=== PATIENT | female | born 1945 | race Caucasian/White ===

== ENCOUNTER 2016-06-29 20:49 | Emergency (ER) | payer MEDICARE ==
[2016-06-29 21:05] VITALS: PULSE 75
[2016-06-29] MEDS ORDERED: KETOROLAC 60 MG/2 ML VIAL IM STA (21:43)
[2016-06-29] MEDS ORDERED: ORPHENADRINE 30 MG/ML 2 ML VIAL IM STA (21:43)
--- NOTE | 2016-06-29 21:48 | ED ---
General Adult HPI - General Chief complaint: Back Pain/Injury Stated complaint: back pain Time Seen by Provider: 06/29/16 21:16 Source: patient, RN notes reviewed Mode of arrival: ambulatory Limitations: no limitations - History of Present Illness Initial comments: Patient is a 7-year-old female chief complaint of acute onset of lower back pain. Patient reports that she has a history of this similar back pain for the past few months. She states that she has been able to ambulate denies any dysuria or loss of bowel or bladder control. She states that she has been having multiple x-rays. She denies any MRIs or other imaging studies of the lumbar spine. She states that she has not seen a civil design specialist. She denies any fever or chills, nausea or vomiting. She denies any abdominal pain. She states the pain is worse with position. She states that better when standing. - Related Data Home Medications Medication Instructions Recorded Confirmed Acetaminophen [Tylenol Arthritis] 650 mg PO Q6H PRN 03/14/16 03/14/16 Previous Rx's Medication Instructions Recorded Hydrocodone/Acetaminophen [[place] 1 each PO Q6HR PRN #20 tab 03/14/16 5-325] Cyclobenzaprine [Flexeril] 10 mg PO TID #20 tab 06/29/16 HYDROcodone/APAP 5-325MG [[place] 1 tab PO Q6HR PRN #15 tab 06/29/16 5-325] Allergies Allergy/AdvReac Type Severity Reaction Status Date / Time No Known Allergies Allergy Verified 06/29/16 21:05 Review of Systems ROS Statement: Those systems with pertinent positive or pertinent negative responses have been documented in the HPI. ROS Other: All systems not noted in ROS Statement are negative. Past Medical History Past Medical History: Cancer, GERD/Reflux, Hypertension Additional Past Medical History / Comment(s): stomach ulcer, back pain, cancer of larynx History of Any Multi-Drug Resistant Organisms: None Reported Past Surgical History: Bariatric Surgery, Hysterectomy, Joint Replacement, Orthopedic Surgery Additional Past Surgical History / Comment(s): bilat. knee replacement, left shoulder surgery Past Anesthesia/Blood Transfusion Reactions: No Reported Reaction Past Psychological History: Anxiety Smoking Status: Former smoker Past Alcohol Use History: None Reported Past Drug Use History: None Reported - Past Family History Mother Family Medical History: Congestive Heart Failure (CHF), Diabetes Mellitus, Hypertension General Exam Limitations: no limitations Course Vital Signs 06/29/16 06/29/16 21:03 22:44 Temperature 97.9 F 97.8 F Pulse Rate 75 75 Respiratory 18 20 Rate Blood Pressure 167/96 137/74 O2 Sat by Pulse 98 96 Oximetry Medical Decision Making - Medical Decision Making Patient is a 7-year-old female chief complaint of acute onset of lower back pain. Patient reports that she has a history of this similar back pain for the past few months. She states that she has been able to ambulate denies any dysuria or loss of bowel or bladder control. She states that she has been having multiple x-rays. She denies any MRIs or other imaging studies of the lumbar spine. CT lumbar spine was performed in results are showing below. Patient is given IM Norflex and Toradol. She does report significant improvement of her pain. Patient will be discharged with Flexeril and pain medication. I advised her to follow-up with her primary care provider. Also discussed that she is to follow-up with a civil design specialist. Patient presented treatment plan will comply. Return parameters were discussed. - Radiology Data Radiology results: report reviewed There is area of the L2 3 disc space. 7 mm retrolisthesis of L2/3. 1 cm anterolisthesis of L4 in relation L5. No compression fracture. The posterior elements are intact. Abdominal aorta is erythematous. Multilevel hypertrophic facet arthropathy. There is sclerosis in both sides of L2/3 days. Vacuum disc at L2/3. No paraspinal mass. The sacroiliac joints appear normal. There is mild posterior to 3 disc herniations. There is moderate spinal stenosis due to subluxation and facet arthropathy L4/5. Impression a spinal changes as above. Retrolisthesis of L2/L3 and prescribed spinal listhesis at L4-L5. No fracture. Bladder is sclerosis at L2-L3. Moderately severe spinal stenosis at L4/5. Mild spinal stenosis L2/3. Subluxation deformities that are not significantly different than old CT of 12/16. Disposition Clinical Impression: Acute exacerbation of chronic low back pain Disposition: HOME SELF-CARE Condition: Good Instructions: Acute Low Back Pain (ED) Additional Instructions: Patient advised to apply heat over the lower back. Take the muscle relaxers and pain medication as prescribed. Follow-up with primary care provider. Return to the emergency department if any alarming signs or symptoms occur. Prescriptions: Cyclobenzaprine [Flexeril] 10 mg PO TID #20 tab HYDROcodone/APAP 5-325MG [[place] 5-325] 1 tab PO Q6HR PRN #15 tab PRN Reason: Pain Referrals: Xin Hernández MD [Primary Care Provider] - 1-2 days Time of Disposition: 22:34
--- NOTE | 2016-06-29 22:21 | CT ---
EXAMINATION TYPE: CT lumbar spine wo con DATE OF EXAM: 06/29/2016 10:08 PM COMPARISON: NONE HISTORY: Chronic low back pain. CT DLP: 946.00 mGycm Automated exposure control for dose reduction was used. Unenhanced CT of the lumbar spine was performed. Bone and soft tissue window settings are submitted as well as coronal and sagittal reconstructions. There is severe narrowing of the L2-3 disc space. There is a 7 mm retrolisthesis at L2-3. There is a 1 cm anterior listhesis of L4 in relation L5. There is no compression fracture. The posterior element s are intact. The abdominal aorta is atheromatous. There is mild multilevel hypertrophic facet arthro sylvia. There is sclerosis on both sides of the L2-3 disc. There is vacuum disc at L2-3. There is no p araspinal mass. The sacroiliac joints appear normal. There is a mild posterior to 3 disc herniation. There is moderate spinal stenosis due to the subluxation and facet arthropathy at L4-5. IMPRESSION: Spondylotic changes as above. There is a retrolisthesis at L2-3 and first-degree spondylolisthesis at L4-5. No fracture. There is moderate sclerosis at L2-3 that could relate to chronic discitis. There is moderately severe spinal stenosis at L4-5. There is a mild spinal stenosis at L2-3. The subl uxation deformities are not significantly different than the old CT scan of 12/17/2015.
[2016-06-29 22:45] VITALS: BP 137/74; RESP 20; TEMP 97.8
== END 2016-06-29 22:45 | disposition home or self-care (01) ==
LOC: EC 20:49
DX: M54.5 Low back pain (principal); G89.29 Other chronic pain; Z87.891 Personal history of nicotine dependence
CPT/HCPCS: 96372; 99283; 72131; J2360; J1885

== ENCOUNTER 2016-08-17 11:39 | Emergency (ER) | payer MEDICARE ==
[2016-08-17 12:15] VITALS: BP 179/92; PULSE 76; RESP 16; TEMP 98.1
[2016-08-17] MEDS ORDERED: HYDROcodone/APAP 5-325MG 1 EACH TAB PO STA (12:21)
--- NOTE | 2016-08-17 12:23 | ED ---
Back Pain HPI - General Chief Complaint: Back Pain/Injury Stated Complaint: LOWER BACK PAIN Time Seen by Provider: 08/17/16 12:19 Source: patient, RN notes reviewed Limitations: no limitations - History of Present Illness Initial Comments: 70-year-old female presents emergency department for chronic back pain. Patient states she ran out of her pain medication this morning. Patient takes [place] 5/325 daily. She states she has a prescription but states that she cannot fill it until Saturday because that's what it is due. Patient denies any change of her back pain or any new injuries. She denies any bowel bladder incontinence or retention. Denies any abdominal pain, saddle anesthesias or lower stomach paresthesias. She says chronic lumbar pain occasionally radiates to her left leg to the thigh. She denies any dysuria or hematuria. Patient offers no other complaints. - Related Data Home Medications Medication Instructions Recorded Confirmed Acetaminophen [Tylenol Arthritis] 650 mg PO Q6H PRN 03/14/16 08/17/16 Previous Rx's Medication Instructions Recorded Hydrocodone/Acetaminophen [[place] 1 each PO Q6HR PRN #20 tab 03/14/16 5-325] Cyclobenzaprine [Flexeril] 10 mg PO TID #20 tab 06/29/16 HYDROcodone/APAP 5-325MG [[place] 1 tab PO Q6HR PRN #15 tab 06/29/16 5-325] Allergies Allergy/AdvReac Type Severity Reaction Status Date / Time No Known Allergies Allergy Verified 08/17/16 12:15 Review of Systems ROS Statement: Those systems with pertinent positive or pertinent negative responses have been documented in the HPI. ROS Other: All systems not noted in ROS Statement are negative. Past Medical History Past Medical History: Cancer, GERD/Reflux, Hypertension Additional Past Medical History / Comment(s): stomach ulcer, back pain, cancer of larynx History of Any Multi-Drug Resistant Organisms: None Reported Past Surgical History: Bariatric Surgery, Hysterectomy, Joint Replacement, Orthopedic Surgery Additional Past Surgical History / Comment(s): bilat. knee replacement, left shoulder surgery Past Anesthesia/Blood Transfusion Reactions: No Reported Reaction Past Psychological History: Anxiety Smoking Status: Former smoker Past Alcohol Use History: None Reported Past Drug Use History: None Reported - Past Family History Mother Family Medical History: Congestive Heart Failure (CHF), Diabetes Mellitus, Hypertension General Exam Limitations: no limitations General appearance: alert, in no apparent distress Head exam: Present: atraumatic, normocephalic, normal inspection Respiratory exam: Present: normal lung sounds bilaterally. Absent: respiratory distress, wheezes, rales, rhonchi, stridor Cardiovascular Exam: Present: regular rate, normal rhythm, normal heart sounds. Absent: systolic murmur, diastolic murmur, rubs, gallop, clicks GI/Abdominal exam: Present: soft, normal bowel sounds. Absent: distended, tenderness, guarding, rebound, rigid Extremities exam: Present: normal inspection, full ROM, normal capillary refill. Absent: tenderness, pedal edema, joint swelling, calf tenderness Back exam: Present: full ROM, tenderness (Mild tenderness of the lumbar), paraspinal tenderness. Absent: vertebral tenderness Neurological exam: Present: alert, oriented X3, CN II-XII intact, reflexes normal. Absent: motor sensory deficit Course Vital Signs 08/17/16 12:09 Temperature 98.1 F Pulse Rate 76 Respiratory 16 Rate Blood Pressure 179/92 Medical Decision Making - Medical Decision Making 70-year-old female presented for chronic back pain ran out of pain medication. Patient be given pain medication emergency department. She'll he has a prescription edition her pain meds. Patient agrees to plan to receive pain medications here and to follow-up. Prescription on Saturday. Return parameters were discussed. Patient has no red flag symptoms no neurological changes. Disposition Clinical Impression: Chronic back pain Disposition: HOME SELF-CARE Condition: Stable Instructions: Chronic Back Pain (ED) Additional Instructions: Please return to the Emergency Department if symptoms worsen or any other concerns. Referrals: Xin Hernández MD [Primary Care Provider] - 1-2 days Time of Disposition: 12:22
== END 2016-08-17 12:35 | disposition home or self-care (01) ==
LOC: EC 11:39
DX: G89.29 Other chronic pain (principal); M54.5 Low back pain; M79.605 Pain in left leg; M25.552 Pain in left hip; Z87.891 Personal history of nicotine dependence
CPT/HCPCS: 99283

== ENCOUNTER 2016-09-11 22:09 | Emergency (ER) | payer MEDICARE ==
[2016-09-11] MEDS ORDERED: HYDROmorphone 1 MG/ML 1 ML SYRINGE IVP STA (22:39)
[2016-09-11] MEDS ORDERED: SODIUM CHLORIDE 0.9% 1,000 ML IV STA (22:39)
[2016-09-11] MEDS ORDERED: KETOROLAC 30 MG/ML 1 ML VIAL IVP STA (22:39)
[2016-09-11] MEDS ORDERED: METHOCARBAMOL 750 MG TAB PO STA (22:39)
[2016-09-11] MEDS ORDERED: methylPREDNISolone SOD SUCCI 125 MG/2 ML VIAL IM STA (22:39)
[2016-09-11] MEDS ORDERED: methylPREDNISolone SOD SUCCI 125 MG/2 ML VIAL IV STA (23:11)
--- NOTE | 2016-09-11 23:15 | ED ---
Back Pain HPI - General Chief Complaint: Back Pain/Injury Stated Complaint: Back pain Time Seen by Provider: 09/11/16 22:31 Source: patient Limitations: no limitations - History of Present Illness Initial Comments: She has a history of back pain, it got aggravated around 4 PM today with back pain travels down the left leg into the proximal left thigh, there is no weakness of the ureter legs and there is no bowel or bladder dysfunction either. She has a hypertension she has been compliant with her medication for blood pressure today is quite high and was 96 systolic. She denies any headaches no neck stiffness no chest pain no shortness of breath no abdominal pain no frequency urgency dysuria complaining about some numbness in the index fingers bilaterally as well as soft from bilaterally this is ongoing for about a 4 days she feels that the hand strength is is not as good as it was before. She denies any history of cervical spine stenosis or neck injury - Related Data Home Medications Medication Instructions Recorded Confirmed Acetaminophen [Tylenol Arthritis] 650 mg PO Q6H PRN 03/14/16 09/11/16 Gabapentin [Neurontin] 100 mg PO Q4-6H PRN 09/11/16 09/11/16 Levothyroxine Sodium 100 mcg PO DAILY 09/11/16 09/11/16 Lisinopril [Zestril] 10 mg PO DAILY 09/11/16 09/11/16 Naproxen [Naproxen] 500 mg PO DAILY 09/11/16 09/11/16 Omeprazole [Omeprazole] 20 mg PO DAILY 09/11/16 09/11/16 Previous Rx's Medication Instructions Recorded Cyclobenzaprine [Flexeril] 10 mg PO TID #20 tab 06/29/16 HYDROcodone/APAP 5-325MG [[place] 1 tab PO Q6HR PRN #15 tab 06/29/16 5-325] Cyclobenzaprine [Flexeril] 10 mg PO TID #30 tab 09/12/16 HYDROmorphone [Dilaudid] 1 mg PO Q4HR PRN #20 tab 09/12/16 Allergies Allergy/AdvReac Type Severity Reaction Status Date / Time No Known Allergies Allergy Verified 09/11/16 22:43 Review of Systems ROS Statement: Those systems with pertinent positive or pertinent negative responses have been documented in the HPI. ROS Other: All systems not noted in ROS Statement are negative. Past Medical History Past Medical History: Cancer, GERD/Reflux, Hypertension Additional Past Medical History / Comment(s): stomach ulcer, back pain, cancer of larynx, degenerative disk disease History of Any Multi-Drug Resistant Organisms: None Reported Past Surgical History: Bariatric Surgery, Hysterectomy, Joint Replacement, Orthopedic Surgery Additional Past Surgical History / Comment(s): bilat. knee replacement, left shoulder surgery Past Anesthesia/Blood Transfusion Reactions: No Reported Reaction Past Psychological History: Anxiety Smoking Status: Former smoker Past Alcohol Use History: None Reported Past Drug Use History: None Reported - Past Family History Mother Family Medical History: Congestive Heart Failure (CHF), Diabetes Mellitus, Hypertension General Exam - General Exam Comments Initial Comments: General: The patient is awake and alert, in no distress because of the back pain, not able to lie straight supine in the bed, pain is 9/10 at this point Skin: Skin is warm and dry and no rashes or lesions are noted. Eye: Pupils are equal, round and reactive to light, extra-ocular movements are intact; there is normal conjunctiva bilaterally. Ears, nose, mouth and throat: There are moist mucous membranes and no oral lesions. Neck: The neck is supple, there is no tenderness or JVD. Cardiovascular: There is a regular rate and rhythm. No murmur, rub or gallop is appreciated. Respiratory: To auscultation bilateral, no wheezing no rhonchi no distress respiratory mohamud noticed Gastrointestinal: Soft, non-distended, non-tender abdomen without masses or organomegaly noted. There is no rebound or guarding present. Bowel sounds are unremarkable. Back: There is tenderness over the L4 and L5 region, she is not willing to do any straight leg raise at this point in deep tendon reflexes are within normal range Musculoskeletal: Normal ROM, no tenderness, There is no pedal edema. There is no calf tenderness or swelling. No cords were appreciated. Neurological: CN II-XII intact, Cranial nerves III through XII are intact. There are no obvious motor or sensory deficits. Coordination appears grossly intact. Speech is normal. Psychiatric: Cooperative, appropriate mood & affect, normal judgment. Limitations: no limitations Course Vital Signs 09/11/16 09/11/16 09/12/16 22:13 23:16 00:14 Temperature 96.6 F L Pulse Rate 83 82 69 Respiratory 18 18 16 Rate Blood Pressure 196/91 157/78 144/75 O2 Sat by Pulse 99 99 97 Oximetry 09/12/16 00:55 Temperature 97.3 F L Pulse Rate 62 Respiratory 18 Rate Blood Pressure 147/78 O2 Sat by Pulse 95 Oximetry She is reassessed at 12:30 AM, she is feeling a lot better pain is resolved 90% and she is willing to go home at this point I did discuss her CT of the lumbar spine which didn't show any new finding as well as CT of the brain that was normal CBC, CMP, urinalysis all those were normal there was better for metabolic acidosis she got fluid since she got here and her her hypertension or high blood pressure has responded very nicely to the pain medications as well, we can see if she could ambulate independently once she does that there will cannot sent home on some pain meds Medical Decision Making - Lab Data Result diagrams: 09/11/16 23:08 09/11/16 23:08 Lab Results 09/11/16 09/11/16 09/11/16 Range/Units 23:08 23:08 23:08 WBC 6.5 (3.8-10.6) k/uL RBC 3.49 L (3.80-5.40) m/uL Hgb 10.1 L (11.4-16.0) gm/dL Hct 29.7 L (34.0-46.0) % MCV 85.1 (80.0-100.0) fL MCH 28.8 (25.0-35.0) pg MCHC 33.9 (31.0-37.0) g/dL RDW 15.9 H (11.5-15.5) % Plt Count 273 (150-450) k/uL Neutrophils % 37 % Lymphocytes % 49 % Monocytes % 6 % Eosinophils % 3 % Basophils % 1 % Neutrophils # 2.4 (1.3-7.7) k/uL Lymphocytes # 3.2 (1.0-4.8) k/uL Monocytes # 0.4 (0-1.0) k/uL Eosinophils # 0.2 (0-0.7) k/uL Basophils # 0.1 (0-0.2) k/uL Hypochromasia Slight Sodium 136 L (137-145) mmol/L Potassium 3.4 L (3.5-5.1) mmol/L Chloride 104 (98-107) mmol/L Carbon Dioxide 20 L (22-30) mmol/L Anion Gap 12 mmol/L BUN 13 (7-17) mg/dL Creatinine 1.00 (0.52-1.04) mg/dL Est GFR (MDRD) Af Amer >60 (>60 ml/min/1.73 sqM) Est GFR (MDRD) Non-Af 55 (>60 ml/min/1.73 sqM) Glucose 88 (74-99) mg/dL Calcium 9.2 (8.4-10.2) mg/dL Total Bilirubin 0.4 (0.2-1.3) mg/dL AST 26 (14-36) U/L ALT 21 (9-52) U/L Alkaline Phosphatase 64 (38-126) U/L Total Protein 7.2 (6.3-8.2) g/dL Albumin 4.3 (3.5-5.0) g/dL Urine Color Colorless Urine Appearance Clear (Clear) Urine pH 7.0 (5.0-8.0) Ur Specific [place] 1.005 (1.001-1.035) Urine Protein Negative (Negative) Urine Glucose (UA) Negative (Negative) Urine Ketones Negative (Negative) Urine Blood Negative (Negative) Urine Nitrite Negative (Negative) Urine Bilirubin Negative (Negative) Urine Urobilinogen <2.0 (<2.0) mg/dL Ur Leukocyte Esterase Trace H (Negative) Urine RBC 2 (0-5) /hpf Urine WBC 2 (0-5) /hpf Ur Squamous Epith Cells <1 (0-4) /hpf Urine Bacteria Rare H (None) /hpf Disposition Clinical Impression: Back pain, Hypertension Disposition: HOME SELF-CARE Condition: Good Instructions: Acute Low Back Pain (ED) Prescriptions: Cyclobenzaprine [Flexeril] 10 mg PO TID #30 tab HYDROmorphone [Dilaudid] 1 mg PO Q4HR PRN #20 tab PRN Reason: Pain Referrals: Xin Hernández MD [Primary Care Provider] - 1-2 days
[2016-09-11 23:32] LABS: ALT 21 U/L (9-52); AST 26 U/L (14-36); Alkaline Phosphatase 64 U/L (38-126); Anion Gap 12 mmol/L; Blood Urea Nitrogen 13 mg/dL (7-17); Calcium 9.2 mg/dL (8.4-10.2); Carbon Dioxide 20 mmol/L (22-30); Chloride 104 mmol/L (98-107); Glucose 88 mg/dL (74-99); Non-African American GFR(MDRD) 55 (>60 ml/min/1.73 sqM); Potassium 3.4 mmol/L (3.5-5.1); Sodium 136 mmol/L (137-145); Total Bilirubin 0.4 mg/dL (0.2-1.3); Total Protein 7.2 g/dL (6.3-8.2)
[2016-09-11 23:49] LABS: Appearance,Urine Clear (Clear); Bacteria,Urine Rare /hpf; Bilirubin,Urine Negative (Negative); Glucose,Urine (UA) Negative (Negative); Ketones,Urine Negative (Negative); Leukocyte Esterase,Urine Trace (Negative); Nitrite,Urine Negative (Negative); Particle Count 1158; Protein,Urine Negative (Negative); RBC,Urine 2 /hpf (0-5); Specific Gravity,Urine 1.005 (1.001-1.035); Squamous Epithelial Cell,Urine <1 /hpf (0-4); UA Billing (MACRO vs. MICRO) MICRO; Urobilinogen,Urine <2.0 mg/dL (<2.0); WBC,Urine 2 /hpf (0-5)
[2016-09-11] MEDS ORDERED: HYDROmorphone 1 MG/ML 1 ML SYRINGE IVP PRN (23:50)
[2016-09-12 00:08] LABS: Basophils # (A) 0.1 k/uL (0-0.2); Basophils % (A) 1 %; CH 27.1; Eosinophils # (A) 0.2 k/uL (0-0.7); Eosinophils % (A) 3 %; HCT 29.7 % (34.0-46.0); HDW 3.23; HGB 10.1 gm/dL (11.4-16.0); Hypochromasia Slight; Luc # (Auto) 0.27; Luc % (Auto) 4; Lymphocytes # (A) 3.2 k/uL (1.0-4.8); Lymphocytes % (A) 49 %; MCH 28.8 pg (25.0-35.0); MCHC 33.9 g/dL (31.0-37.0); MCV 85.1 fL (80.0-100.0); Mean Platelet Volume 7.1; Monocytes # (A) 0.4 k/uL (0-1.0); Monocytes % (A) 6 %; Neutrophils # (A) 2.4 k/uL (1.3-7.7); Neutrophils % (A) 37 %; RBC 3.49 m/uL (3.80-5.40); RDW 15.9 % (11.5-15.5); WBC 6.5 k/uL (3.8-10.6); WBC (Perox) 7.02
--- NOTE | 2016-09-12 00:16 | CT ---
EXAM: CT Head Without Intravenous Contrast CLINICAL HISTORY: Reason: Pain TECHNIQUE: Axial computed tomography images of the head/brain without intravenous contrast. CTDI is 60.3 mGy and DLP is 1116.4 mGy-cm. This CT exam was performed using one or more of the following dose reduction techniques: automated exposure control, adjustment of the mA and/or kV according to patient size, and/or use of iterative reconstruction technique. COMPARISON: No relevant prior studies available. FINDINGS: Brain: Involutional changes and probable small vessel disease. No hemorrhage. No acute cortical infarct. No mass effect or midline shift. Ventricles: Unremarkable. Bones/joints: No acute fracture. Soft tissues: Unremarkable. Sinuses: Mild sinus disease. Mastoid air cells: Small mastoid fluid. IMPRESSION: No acute intracranial process.
--- NOTE | 2016-09-12 00:24 | CT ---
EXAM: CT Lumbar Spine Without Intravenous Contrast CLINICAL HISTORY: Reason: Pain TECHNIQUE: Axial computed tomography images of the lumbar spine without intravenous contrast. CTDI is 49.4 mGy and DLP is 1435.3 mGy-cm. This CT exam was performed using one or more of the following dose reduction techniques: automated exposure control, adjustment of the mA and/or kV according to patient size, and/or use of iterative reconstruction technique. COMPARISON: CT abdomen and pelvis 12/17/15. FINDINGS: Vertebrae: No acute fracture or subluxation. Multilevel degenerative changes, relatively similar to prior study, with varying degrees of central canal and neural foraminal stenosis, most prominent at L4-5. There is loss of intervertebral disc space height at L2-3 and L4-5. Grade 1 retrolisthesis at L1-2, L2-3, and L3-4 with grade 1 anterolisthesis at L4-5. Multilevel lumbar facet arthropathy. Discs/spinal canal/neural foramina: See above. Soft tissues: Unremarkable. IMPRESSION: 1. No acute fracture or subluxation. 2. Multilevel degenerative changes as above with central canal narrowing most prominent at L4-5.
[2016-09-12 00:56] VITALS: BP 147/78; PULSE 62; RESP 18; TEMP 97.3
[2016-09-12] MEDS ORDERED: ONDANSETRON 4 MG ODT STARTER PACK 2 TAB BTL PO STA (01:16)
[2016-09-12] MEDS ORDERED: HYDROcodone/APAP 5-325MG 1 EACH TAB PO STA (01:24)
== END 2016-09-12 01:58 | disposition home or self-care (01) ==
LOC: EC 22:09
DX: M54.9 Dorsalgia, unspecified (principal); I10 Essential (primary) hypertension; K21.9 Gastro-esophageal reflux disease without esophagitis; F41.9 Anxiety disorder, unspecified; Z85.21 Personal history of malignant neoplasm of larynx; Z87.891 Personal history of nicotine dependence; Z79.1 Long term (current) use of non-steroidal anti-inflammatories (NSAID); Z79.899 Other long term (current) drug therapy; Z90.710 Acquired absence of both cervix and uterus; Z98.890 Other specified postprocedural states
CPT/HCPCS: 99284; 96374; 96375 ×2; 96376; 96361 ×2; 36415; 80053; 85025; 81001; 72131; 70450; J2930; J1885; J1170 ×2; S0119

== ENCOUNTER 2016-10-03 10:15 | Inpatient (IN) | payer MEDICARE ==
[2016-10-03] MEDS ORDERED: METOCLOPRAMIDE 5 MG/ML 2 ML VIAL IVP STA (10:37)
[2016-10-03] MEDS ORDERED: PANTOPRAZOLE 40 MG/10 ML VIAL IVP STA (10:37)
[2016-10-03] MEDS ORDERED: SODIUM CHLORIDE 0.9% 500 ML IV STA (10:37)
--- NOTE | 2016-10-03 10:43 | ED ---
General Adult HPI - General Chief complaint: Abdominal Pain Stated complaint: KIDNEY PROBLEM Time Seen by Provider: 10/03/16 10:24 Source: patient, RN notes reviewed, old records reviewed Mode of arrival: wheelchair Limitations: no limitations - History of Present Illness Initial comments: Chief complaint and history of present illness is a 70-year-old female with a complaint of not feeling well. After breakfast when she vomited twice. Patient presents looking pale. Generally complaining of not feeling well. Mild epigastric pain chronic low back pain no worse than normal. She reports she is taking Percocet and she only took 2 tablets yesterday. This been Prescription so she had been on pain medications previously. Chest pain or headache. - Related Data Home Medications Medication Instructions Recorded Confirmed Gabapentin [Neurontin] 300 mg PO BID 09/11/16 10/03/16 Levothyroxine Sodium 100 mcg PO DAILY 09/11/16 10/03/16 Lisinopril [Zestril] 10 mg PO DAILY 09/11/16 10/03/16 Omeprazole [Omeprazole] 20 mg PO DAILY 09/11/16 10/03/16 Ferrous Sulfate [Feosol] 325 mg PO DAILY 10/03/16 10/03/16 Simvastatin [Zocor] 20 mg PO HS 10/03/16 10/03/16 Previous Rx's Medication Instructions Recorded HYDROcodone/APAP 5-325MG [[place] 1 tab PO Q6HR PRN #15 tab 06/29/16 5-325] Allergies Allergy/AdvReac Type Severity Reaction Status Date / Time No Known Allergies Allergy Verified 10/03/16 11:06 Review of Systems ROS Statement: Those systems with pertinent positive or pertinent negative responses have been documented in the HPI. Review of systems. Patient does appear pale complaint not feeling well. Denies headache or visual acuity changes no chest pain or shortness of breath she vomited twice this morning mild epigastric discomfort chronic low back pain no different or worse than the past, complains of any neuro deficits. All systems are reviewed. Past medical problems significant for arranging cancer, GERD, hypertension, degenerative disc disease, stomach ulcers. Surgeries bariatric surgery, balloon type. Hysterectomy, bilateral knee replacements. Patient also has history of anxiety. Family history mother and sister both had laryngeal cancer. Patient has no known ALLERGIES. Quit smoking years ago. ROS Other: All systems not noted in ROS Statement are negative. Past Medical History Past Medical History: Cancer, GERD/Reflux, Hypertension Additional Past Medical History / Comment(s): stomach ulcer, back pain, cancer of larynx, degenerative disk disease History of Any Multi-Drug Resistant Organisms: None Reported Past Surgical History: Bariatric Surgery, Hysterectomy, Joint Replacement, Orthopedic Surgery Additional Past Surgical History / Comment(s): bilat. knee replacement, left shoulder surgery Past Anesthesia/Blood Transfusion Reactions: No Reported Reaction Past Psychological History: Anxiety Smoking Status: Former smoker Past Alcohol Use History: None Reported Past Drug Use History: None Reported - Past Family History Mother Family Medical History: Congestive Heart Failure (CHF), Diabetes Mellitus, Hypertension General Exam - General Exam Comments Initial Comments: General: The patient is awake and alert, complains of a general not feeling well. Nausea vomiting 2 times earlier this morning. Vital signs temp 97.4 pulse 50 her story rate 18 pulse ox 97% room air blood pressure 112/57 Eye: Pupils are equal, round and reactive to light, extra-ocular movements are intact ; there is normal conjunctiva bilaterally. No signs of icterus. Ears, nose, mouth and throat: There are moist mucous membranes . Neck: The neck is supple, there is no tenderness . Cardiovascular: There is a regular rate and rhythm. No murmur, rub or gallop is appreciated. Respiratory: Lungs are clear to auscultation, respirations are non-labored, breath sounds are equal. No wheezes, stridor, rales, or rhonchi. Gastrointestinal: Patient was nauseated and vomited twice this morning after breakfast. Mild epigastric discomfort. No rebound or referred pain, normal bowel sounds. Examination done with the assistance of nurse Vandana, stool was brown. She does have a history of bleeding stomach ulcers though. Guaiac pending Back: Chronic low back pain for which takes pain medications. Saw her family physician the last day or 2 but was called and told she has stage III renal failure. The patient had BUN/creatinine and GFR is done in the emergency room just 3 weeks ago. BUN was 13 creatinine 1 and the GFR was 55. Musculoskeletal: Normal ROM, no tenderness, There is no pedal edema. There is no calf tenderness or swelling. Sensation intact. Pulses equal bilaterally 2+. Neurological: CN II-XII intact, There are no obvious motor or sensory deficits. Coordination appears grossly intact. Speech is normal. No neuro deficits complained of. Skin: Skin is pale no bruises Limitations: no limitations Course Vital Signs 10/03/16 10/03/16 10/03/16 10:17 11:00 11:47 Temperature 97.4 F L Pulse Rate 58 L 58 L 61 Respiratory 18 16 16 Rate Blood Pressure 112/57 117/55 O2 Sat by Pulse 97 100 94 L Oximetry 10/03/16 12:02 Temperature Pulse Rate 54 L Respiratory 18 Rate Blood Pressure 81/52 O2 Sat by Pulse 100 Oximetry EKG Findings - EKG Comments: EKG Findings:: EKG was done and reviewed at 1105 showing a junctional rhythm at 59 QRS 88 QT 458 QTc 453. Age undetermined inferior injury, no old EKGs compare to. Dr. Vasquez Medical Decision Making - Medical Decision Making Medical decision-making. The patient's hemoglobin dropped 2 g the past 3 weeks. Current hemoglobin is 7.3 which makes it nearly 3 g and 3 weeks, 1 g in the past day. Patient reports having epigastric discomfort for 5 days. She hasn't noticed any dark stool but stool guaiac is reported to be positive. Rectal exam otherwise negative. White count 8 hemoglobin 7.3 hematocrit 22. INR 1.3. Potassium 4.0 BUN mildly elevated at 42 creatinine up to 1.07 and GFR slightly worse than last week at 51. Blood sugars 108. Plasma lactic acid 2.8. Stool again was reported to be positive for blood. The patient be admitted to the hospital with treatment for probable bleeding stomach ulcer. With consultation from GI She received a stat 500 ML's upon arrival. Repeat blood pressure showed a blood pressure drop to 80 systolic. 2 units of packed RBCs has been ordered to be administered. Symptomatic acute anemia. Patient reports that when she vomited this morning he was just the food she had eaten and was not coffee ground-like. - Lab Data Result diagrams: 10/03/16 10:53 10/03/16 10:53 Lab Results 10/03/16 10/03/16 10/03/16 Range/Units 10:53 10:53 10:53 WBC 8.0 (3.8-10.6) k/uL RBC 2.65 L (3.80-5.40) m/uL Hgb 7.3 L (11.4-16.0) gm/dL Hct 22.6 L (34.0-46.0) % MCV 85.5 (80.0-100.0) fL MCH 27.5 (25.0-35.0) pg MCHC 32.2 (31.0-37.0) g/dL RDW 16.0 H (11.5-15.5) % Plt Count 318 (150-450) k/uL Neutrophils % 44 % Lymphocytes % 46 % Monocytes % 4 % Eosinophils % 3 % Basophils % 1 % Neutrophils # 3.5 (1.3-7.7) k/uL Lymphocytes # 3.7 (1.0-4.8) k/uL Monocytes # 0.3 (0-1.0) k/uL Eosinophils # 0.3 (0-0.7) k/uL Basophils # 0.1 (0-0.2) k/uL Hypochromasia Slight Anisocytosis Slight PT (9.0-12.0) sec INR (<1.1) Sodium 134 L (137-145) mmol/L Potassium 4.0 (3.5-5.1) mmol/L Chloride 103 (98-107) mmol/L Carbon Dioxide 18 L (22-30) mmol/L Anion Gap 13 mmol/L BUN 42 H (7-17) mg/dL Creatinine 1.07 H (0.52-1.04) mg/dL Est GFR (MDRD) Af Amer >60 (>60 ml/min/1.73 sqM) Est GFR (MDRD) Non-Af 51 (>60 ml/min/1.73 sqM) Glucose 108 H (74-99) mg/dL Plasma Lactic Acid Anthony (0.7-2.0) mmol/L Calcium 8.6 (8.4-10.2) mg/dL Total Bilirubin 0.6 (0.2-1.3) mg/dL AST 30 (14-36) U/L ALT 23 (9-52) U/L Alkaline Phosphatase 47 (38-126) U/L Total Creatine Kinase 645 H (30-135) U/L CK-MB (CK-2) 2.2 (0.0-2.4) ng/mL CK-MB (CK-2) Rel Index 0.3 Troponin I <0.012 (0.000-0.034) ng/mL Total Protein 6.9 (6.3-8.2) g/dL Albumin 4.1 (3.5-5.0) g/dL Amylase <30 L (30-110) U/L Lipase 51 (23-300) U/L Urine Color Urine Appearance (Clear) Urine pH (5.0-8.0) Ur Specific [place] (1.001-1.035) Urine Protein (Negative) Urine Glucose (UA) (Negative) Urine Ketones (Negative) Urine Blood (Negative) Urine Nitrite (Negative) Urine Bilirubin (Negative) Urine Urobilinogen (<2.0) mg/dL Ur Leukocyte Esterase (Negative) Urine RBC (0-5) /hpf Urine WBC (0-5) /hpf Ur Squamous Epith Cells (0-4) /hpf Amorphous Sediment (None) /hpf Urine Bacteria (None) /hpf Hyaline Casts (0-2) /lpf Urine Mucus (None) /hpf Stool Occult Blood (Negative) 10/03/16 10/03/16 10/03/16 Range/Units 10:53 10:53 11:00 WBC (3.8-10.6) k/uL RBC (3.80-5.40) m/uL Hgb (11.4-16.0) gm/dL Hct (34.0-46.0) % MCV (80.0-100.0) fL MCH (25.0-35.0) pg MCHC (31.0-37.0) g/dL RDW (11.5-15.5) % Plt Count (150-450) k/uL Neutrophils % % Lymphocytes % % Monocytes % % Eosinophils % % Basophils % % Neutrophils # (1.3-7.7) k/uL Lymphocytes # (1.0-4.8) k/uL Monocytes # (0-1.0) k/uL Eosinophils # (0-0.7) k/uL Basophils # (0-0.2) k/uL Hypochromasia Anisocytosis PT 12.7 H (9.0-12.0) sec INR 1.3 (<1.1) Sodium (137-145) mmol/L Potassium (3.5-5.1) mmol/L Chloride (98-107) mmol/L Carbon Dioxide (22-30) mmol/L Anion Gap mmol/L BUN (7-17) mg/dL Creatinine (0.52-1.04) mg/dL Est GFR (MDRD) Af Amer (>60 ml/min/1.73 sqM) Est GFR (MDRD) Non-Af (>60 ml/min/1.73 sqM) Glucose (74-99) mg/dL Plasma Lactic Acid Anthony 2.8 H* (0.7-2.0) mmol/L Calcium (8.4-10.2) mg/dL Total Bilirubin (0.2-1.3) mg/dL AST (14-36) U/L ALT (9-52) U/L Alkaline Phosphatase (38-126) U/L Total Creatine Kinase (30-135) U/L CK-MB (CK-2) (0.0-2.4) ng/mL CK-MB (CK-2) Rel Index Troponin I (0.000-0.034) ng/mL Total Protein (6.3-8.2) g/dL Albumin (3.5-5.0) g/dL Amylase (30-110) U/L Lipase (23-300) U/L Urine Color Urine Appearance (Clear) Urine pH (5.0-8.0) Ur Specific [place] (1.001-1.035) Urine Protein (Negative) Urine Glucose (UA) (Negative) Urine Ketones (Negative) Urine Blood (Negative) Urine Nitrite (Negative) Urine Bilirubin (Negative) Urine Urobilinogen (<2.0) mg/dL Ur Leukocyte Esterase (Negative) Urine RBC (0-5) /hpf Urine WBC (0-5) /hpf Ur Squamous Epith Cells (0-4) /hpf Amorphous Sediment (None) /hpf Urine Bacteria (None) /hpf Hyaline Casts (0-2) /lpf Urine Mucus (None) /hpf Stool Occult Blood Positive H (Negative) 10/03/16 Range/Units 11:35 WBC (3.8-10.6) k/uL RBC (3.80-5.40) m/uL Hgb (11.4-16.0) gm/dL Hct (34.0-46.0) % MCV (80.0-100.0) fL MCH (25.0-35.0) pg MCHC (31.0-37.0) g/dL RDW (11.5-15.5) % Plt Count (150-450) k/uL Neutrophils % % Lymphocytes % % Monocytes % % Eosinophils % % Basophils % % Neutrophils # (1.3-7.7) k/uL Lymphocytes # (1.0-4.8) k/uL Monocytes # (0-1.0) k/uL Eosinophils # (0-0.7) k/uL Basophils # (0-0.2) k/uL Hypochromasia Anisocytosis PT (9.0-12.0) sec INR (<1.1) Sodium (137-145) mmol/L Potassium (3.5-5.1) mmol/L Chloride (98-107) mmol/L Carbon Dioxide (22-30) mmol/L Anion Gap mmol/L BUN (7-17) mg/dL Creatinine (0.52-1.04) mg/dL Est GFR (MDRD) Af Amer (>60 ml/min/1.73 sqM) Est GFR (MDRD) Non-Af (>60 ml/min/1.73 sqM) Glucose (74-99) mg/dL Plasma Lactic Acid Anthony (0.7-2.0) mmol/L Calcium (8.4-10.2) mg/dL Total Bilirubin (0.2-1.3) mg/dL AST (14-36) U/L ALT (9-52) U/L Alkaline Phosphatase (38-126) U/L Total Creatine Kinase (30-135) U/L CK-MB (CK-2) (0.0-2.4) ng/mL CK-MB (CK-2) Rel Index Troponin I (0.000-0.034) ng/mL Total Protein (6.3-8.2) g/dL Albumin (3.5-5.0) g/dL Amylase (30-110) U/L Lipase (23-300) U/L Urine Color Yellow Urine Appearance Cloudy H (Clear) Urine pH 5.5 (5.0-8.0) Ur Specific [place] 1.028 (1.001-1.035) Urine Protein Trace H (Negative) Urine Glucose (UA) Negative (Negative) Urine Ketones Negative (Negative) Urine Blood Negative (Negative) Urine Nitrite Negative (Negative) Urine Bilirubin Negative (Negative) Urine Urobilinogen 2.0 (<2.0) mg/dL Ur Leukocyte Esterase Moderate H (Negative) Urine RBC 6 H (0-5) /hpf Urine WBC 11 H (0-5) /hpf Ur Squamous Epith Cells 4 (0-4) /hpf Amorphous Sediment Rare H (None) /hpf Urine Bacteria Rare H (None) /hpf Hyaline Casts 17 H (0-2) /lpf Urine Mucus Rare H (None) /hpf Stool Occult Blood (Negative) Disposition Clinical Impression: GI bleed Disposition: ADMITTED IP TO THIS [facility] Condition: Serious Referrals: Xin Hernández MD [Primary Care Provider] - 1-2 days
[2016-10-03 11:06] LABS: Anisocytosis Slight; Basophils # (A) 0.1 k/uL (0-0.2); Basophils % (A) 1 %; CH 27.3; CHCM 32.1; Eosinophils # (A) 0.3 k/uL (0-0.7); Eosinophils % (A) 3 %; HCT 22.6 % (34.0-46.0); HDW 2.97; HGB 7.3 gm/dL (11.4-16.0); Hypochromasia Slight; Luc # (Auto) 0.17; Luc % (Auto) 2; Lymphocytes # (A) 3.7 k/uL (1.0-4.8); Lymphocytes % (A) 46 %; MCH 27.5 pg (25.0-35.0); MCHC 32.2 g/dL (31.0-37.0); MCV 85.5 fL (80.0-100.0); Mean Platelet Volume 8.7; Monocytes # (A) 0.3 k/uL (0-1.0); Monocytes % (A) 4 %; Neutrophils # (A) 3.5 k/uL (1.3-7.7); Neutrophils % (A) 44 %; RBC 2.65 m/uL (3.80-5.40); WBC (Perox) 7.68
[2016-10-03 11:16] LABS: INR 1.3 (<1.1); Prothrombin Time 12.7 sec (9.0-12.0)
[2016-10-03 11:21] LABS: ALT 23 U/L (9-52); AST 30 U/L (14-36); Alkaline Phosphatase 47 U/L (38-126); Amylase <30 U/L (30-110); Anion Gap 13 mmol/L; Blood Urea Nitrogen 42 mg/dL (7-17); Calcium 8.6 mg/dL (8.4-10.2); Carbon Dioxide 18 mmol/L (22-30); Chloride 103 mmol/L (98-107); Glucose 108 mg/dL (74-99); Non-African American GFR(MDRD) 51 (>60 ml/min/1.73 sqM); Sodium 134 mmol/L (137-145); Total Bilirubin 0.6 mg/dL (0.2-1.3); Total Protein 6.9 g/dL (6.3-8.2)
--- NOTE | 2016-10-03 11:29 | XR ---
EXAMINATION TYPE: XR abdomen 2V , 2 VIEWS DATE OF EXAM ORDERED: 10/03/2016 HISTORY: abdominal pain. COMPARISON: None. FINDINGS: There is evidence of a previous cholecystectomy. There is a dextroscoliosis. The abdominal gas pattern is normal. There is no evidence of obstruction or free air. There are phleb oliths within the pelvis. IMPRESSION: NO ACUTE INTRA-ABDOMINAL ABNORMALITY.
[2016-10-03 11:38] LABS: Creatine Kinase 645 U/L (30-135)
[2016-10-03 11:49] LABS: Creatine Kinase MB 2.2 ng/mL (0.0-2.4); Troponin I <0.012 ng/mL (0.000-0.034)
[2016-10-03 11:59] LABS: Amorphous Sediment,Urine Rare /hpf; Appearance,Urine Cloudy (Clear); Bacteria,Urine Rare /hpf; Bilirubin,Urine Negative (Negative); Glucose,Urine (UA) Negative (Negative); Ketones,Urine Negative (Negative); Leukocyte Esterase,Urine Moderate (Negative); Mucus,Urine Rare /hpf; Nitrite,Urine Negative (Negative); PH, Urine 5.5 (5.0-8.0); Particle Count 14889; Protein,Urine Trace (Negative); RBC,Urine 6 /hpf (0-5); Specific Gravity,Urine 1.028 (1.001-1.035); Squamous Epithelial Cell,Urine 4 /hpf (0-4); UA Billing (MACRO vs. MICRO) MICRO; WBC,Urine 11 /hpf (0-5)
[2016-10-03] MEDS ORDERED: SODIUM CHLORIDE 0.9% 1,000 ML IV STA (12:20)
[2016-10-03] MEDS ORDERED: NALOXONE 0.4 MG/ML 1 ML VIAL IV PRN (12:38)
[2016-10-03] MEDS ORDERED: TRANEXAMIC ACID 1,000 MG in SODIUM CHLORIDE 0.9% 100 ML IV STA (12:51)
[2016-10-03] MEDS ORDERED: TRANEXAMIC ACID 1,000 MG in SODIUM CHLORIDE 0.9% 250 ML IV ONE (13:00)
[2016-10-03] MEDS: SODIUM CHLORIDE 0.9% 1,000 ML IV SCH (13:09)
[2016-10-03 14:12] LABS: Glucose,Whole Blood 91 mg/dL (75-99)
--- NOTE | 2016-10-03 16:54 | P.CNPUL ---
History of Present Illness Consult date: 10/03/16 Chief complaint: GI bleeding History of present illness: 70-year-old female patient who presented emergency department this morning not feeling well. After breakfast she vomited twice and she was looking also pale. She had mild epigastric pain . The patient's son was concerned and he brought the patient of the burst department. The patient has not had any further episodes of emesis. She denies having abdominal pain for now. She denies having any melanotic stools. Note that she was in the emergency department on 09/11/2016 for back pain. At that time a CAT scan of the lumbar spine showed multi level degenerative changes as well as central canal narrowing most prominent at L4-L5. The patient's hemoglobin at that time was 10.1. Upon arrival yesterday midnight to the emergency department, her hemoglobin was 8.1 and later on during the day her hemoglobin dropped down to 7.3. Her stool for guaiac was positive. She was hospitalized for a GI bleed. She is currently receiving a unit of packed RBC. The patient admits of history of peptic ulcer disease. She has undergone a previous gastric bypass surgery at [facility] more than 10 years ago. She has coronary artery disease and denies being on aspirin and Plavix. She is not sure however she seems to have taken a tablet of Motrin this morning for increased back pain. The correlation profile is within normal limits. She is free of any chest pain. No change in mental status. She seems to be a poor historian. She is to be with Dr. Martell and currently she is with Dr. Hernández Review of Systems All systems: negative Constitutional: Denies chills, Denies fever Eyes: denies blurred vision, denies pain Ears, nose, mouth and throat: Denies headache, Denies sore throat Cardiovascular: Denies chest pain, Denies shortness of breath Respiratory: Denies cough Gastrointestinal: Denies abdominal pain, Denies diarrhea, Denies nausea, Denies vomiting Genitourinary: Denies dysuria, Denies hematuria Musculoskeletal: Denies myalgias Integumentary: Denies pruritus, Denies rash Neurological: Denies numbness, Denies weakness Psychiatric: Denies anxiety, Denies depression Endocrine: Denies fatigue, Denies weight change Past Medical History Past Medical History: Coronary Artery Disease (CAD), Cancer, Chest Pain / Angina , CVA/TIA, Eye Disorder, GERD/Reflux, Hypertension, Renal Disease Additional Past Medical History / Comment(s): Peptic ulcer disease, coronary artery disease ,chronic back pain, osteoarthritis, laryngeal cancer with a previous radiation therapy, TIA back in 2013, chronic bronchitis, head injury back in 2012, cataracts bilateral, hypertension. History of Any Multi-Drug Resistant Organisms: None Reported Past Surgical History: Bariatric Surgery, Cholecystectomy, Heart Catheterization , Heart Catheterization With Stent, Hysterectomy, Joint Replacement, Orthopedic Surgery, Tonsillectomy Additional Past Surgical History / Comment(s): PCIs with stents (total of 4 stents), bilateral knee replacement, left shoulder rotator cuff surgery, gastric bypass, D&C, EGD/colonoscopy, laryngeal tumor removed. Past Anesthesia/Blood Transfusion Reactions: No Reported Reaction Date of Last Stent Placement:: 2012 Smoking Status: Former smoker - Past Family History Mother Family Medical History: Congestive Heart Failure (CHF), Diabetes Mellitus, Hypertension Father Family Medical History: Myocardial Infarction ([place]) Additional Family Medical History / Comment(s): Father of a [place] at the age of 39yrs. Medications and Allergies Home Medications Medication Instructions Recorded Confirmed Type Gabapentin [Neurontin] 300 mg PO BID 09/11/16 10/03/16 History Levothyroxine Sodium 100 mcg PO DAILY 09/11/16 10/03/16 History Lisinopril [Zestril] 10 mg PO DAILY 09/11/16 10/03/16 History Omeprazole [Omeprazole] 20 mg PO DAILY 09/11/16 10/03/16 History Ferrous Sulfate [Feosol] 325 mg PO DAILY 10/03/16 10/03/16 History Simvastatin [Zocor] 20 mg PO HS 10/03/16 10/03/16 History Allergies Allergy/AdvReac Type Severity Reaction Status Date / Time No Known Allergies Allergy Verified 10/03/16 11:06 Physical Exam Vitals: Vital Signs Temp Pulse Pulse Resp BP BP Pulse Ox 10/03/16 16:05 97.9 F 55 L 21 114/49 99 10/03/16 16:00 97.9 F 55 L 15 110/60 98 10/03/16 15:54 97.9 F 58 L 16 110/60 10/03/16 15:35 97.9 F 70 18 133/65 97 10/03/16 15:25 97.6 F 58 L 13 104/60 99 10/03/16 15:00 59 L 12 107/58 100 10/03/16 14:00 62 11 L 139/71 94 L 10/03/16 13:30 97.4 F L 66 62 16 116/68 95 10/03/16 13:28 97.4 F L 10/03/16 12:48 56 L 131/60 99 10/03/16 12:02 54 L 18 81/52 100 10/03/16 11:47 61 16 117/55 94 L 10/03/16 11:00 58 L 16 112/57 100 10/03/16 10:17 97.4 F L 58 L 18 97 Intake and Output 10/03/16 10/03/16 10/03/16 06:59 14:59 22:59 Intake Total 1600 200 Balance 1600 200 Intake: IV 100 200 Sodium Chloride 0.9% 1, 100 200 000 ml @ 100 mls/hr IV . Q10H ALFREDO Rx#:[id number] Amount of Fluid Infused ( 1500 ml) Blood Product 0 Rc As-1 Unit 0 [id number] Other: Voiding Method Bedside Commode # Voids 0 0 Weight 103.5 kg Patient Weight 10/04/16 06:59 Weight 103.5 kg The patient appeared well nourished and normally developed. Vital signs as documented. Head exam is unremarkable. No scleral icterus or corneal arcus noted. Neck is without jugular venous distension, thyromegaly, or carotid bruits. Carotid upstrokes are brisk bilaterally. Lungs are clear to auscultation and percussion. Cardiac exam reveals the PMI to be normally sized and situated. Rhythm is regular. First and second heart sounds normal. No murmurs, rubs or gallops. Abdominal exam reveals normal bowel sounds, no masses , no organomegaly and no aortic enlargement. Extremities are nonedematous and both femoral and pedal pulses are normal. Results - Laboratory Findings CBC and BMP: 10/03/16 10:53 10/03/16 10:53 PT/INR, D-dimer PT 12.7 sec (9.0-12.0) H 10/03/16 10:53 INR 1.3 (<1.1) 10/03/16 10:53 Abnormal lab findings: Abnormal Labs 10/03/16 10/03/16 10/03/16 10:53 10:53 10:53 RBC 2.65 L Hgb 7.3 L Hct 22.6 L RDW 16.0 H PT Sodium 134 L Carbon Dioxide 18 L BUN 42 H Creatinine 1.07 H Glucose 108 H Plasma Lactic Acid Anthony Total Creatine Kinase 645 H Amylase <30 L Urine Appearance Urine Protein Ur Leukocyte Esterase Urine RBC Urine WBC Amorphous Sediment Urine Bacteria Hyaline Casts Urine Mucus Stool Occult Blood Crossmatch 10/03/16 10/03/16 10/03/16 10:53 10:53 11:00 RBC Hgb Hct RDW PT 12.7 H Sodium Carbon Dioxide BUN Creatinine Glucose Plasma Lactic Acid Anthony 2.8 H* Total Creatine Kinase Amylase Urine Appearance Urine Protein Ur Leukocyte Esterase Urine RBC Urine WBC Amorphous Sediment Urine Bacteria Hyaline Casts Urine Mucus Stool Occult Blood Positive H Crossmatch 10/03/16 10/03/16 11:35 14:34 RBC Hgb Hct RDW PT Sodium Carbon Dioxide BUN Creatinine Glucose Plasma Lactic Acid Anthony Total Creatine Kinase Amylase Urine Appearance Cloudy H Urine Protein Trace H Ur Leukocyte Esterase Moderate H Urine RBC 6 H Urine WBC 11 H Amorphous Sediment Rare H Urine Bacteria Rare H Hyaline Casts 17 H Urine Mucus Rare H Stool Occult Blood Crossmatch See Detail Assessment and Plan Plan: Assessment 1 upper GI bleed currently under investigation. Hemoglobin is down to 7.3 and the patient is receiving units of packed RBC. The patient was placed on IV Protonix and a GI consultation will be also requested. 2 history of peptic ulcer disease/stomach ulcers 3 history of bariatric surgery with gastric bypass 4 coronary artery disease with previous history of coronary intervention and stenting, the patient states that she's not been taken aspirin or Plavix. 5 chronic back pain with multilevel degenerative disc disease, with questionable nonsteroidal anti-inflammatory medication intake 6 previous history of TIA 7 hypertension 8 anemia secondary to above Plan Continued IV fluids and the patient is currently on 0.9 at the rate of 100 mL an hour. Put the patient IV Protonix 40 minutes every 24 hours. Monitor hemoglobin. The patient is receiving a unit of packed RBC. The patient is nothing by mouth except for meds. GI consultation for possible EGD. Avoid any form of nonsteroidal inflammatory medication. Coagulation profile is within normal. We'll continue to follow and keep the patient ICU for monitoring for 24 hours.
[2016-10-03] MEDS ORDERED: ALPRAZolam 0.25 MG TAB PO PRN (18:21)
[2016-10-03] MEDS ORDERED: TEMAZEPAM 15 MG CAP PO PRN (18:21)
[2016-10-03] MEDS: HYDROmorphone 1 MG/ML 1 ML SYRINGE IVP PRN (20:20)
[2016-10-03] MEDS: PANTOPRAZOLE 40 MG/10 ML VIAL IV SCH (20:35)
[2016-10-03] MEDS: GABAPENTIN 300 MG CAP PO SCH (20:35)
[2016-10-03] MEDS: ATORVASTATIN 10 MG TAB PO SCH (20:35)
[2016-10-03 22:20] LABS: Basophils # (A) 0.1 k/uL (0-0.2); Basophils % (A) 1 %; CHCM 32.7; Eosinophils # (A) 0.2 k/uL (0-0.7); Eosinophils % (A) 2 %; HGB 8.3 gm/dL (11.4-16.0); Hypochromasia Slight; Luc # (Auto) 0.15; Luc % (Auto) 2; Lymphocytes # (A) 2.8 k/uL (1.0-4.8); Lymphocytes % (A) 37 %; MCH 27.6 pg (25.0-35.0); MCHC 32.1 g/dL (31.0-37.0); MCV 86.1 fL (80.0-100.0); Mean Platelet Volume 7.1; Monocytes # (A) 0.4 k/uL (0-1.0); Monocytes % (A) 5 %; Neutrophils # (A) 4.1 k/uL (1.3-7.7); Neutrophils % (A) 54 %; RBC 3.02 m/uL (3.80-5.40); RDW 15.5 % (11.5-15.5); WBC 7.6 k/uL (3.8-10.6)
[2016-10-03 22:39] LABS: Anion Gap 8 mmol/L; Blood Urea Nitrogen 31 mg/dL (7-17); Calcium 7.6 mg/dL (8.4-10.2); Carbon Dioxide 17 mmol/L (22-30); Chloride 107 mmol/L (98-107); Glucose 84 mg/dL (74-99); Non-African American GFR(MDRD) >60 (>60 ml/min/1.73 sqM); Sodium 132 mmol/L (137-145)
[2016-10-04] MEDS: HYDROcodone/APAP 5-325MG 1 EACH TAB PO PRN ×4 (00:31→23:27)
[2016-10-04] MEDS: SODIUM CHLORIDE 0.9% 1,000 ML IV SCH ×3 (01:00→17:54)
[2016-10-04 04:53] LABS: Basophils # (A) 0.1 k/uL (0-0.2); Basophils % (A) 1 %; CH 28.2; CHCM 33.1; Eosinophils # (A) 0.3 k/uL (0-0.7); Eosinophils % (A) 4 %; HGB 8.7 gm/dL (11.4-16.0); Hypochromasia Slight; Luc # (Auto) 0.19; Luc % (Auto) 3; Lymphocytes % (A) 42 %; MCH 28.6 pg (25.0-35.0); MCHC 33.3 g/dL (31.0-37.0); MCV 85.9 fL (80.0-100.0); Mean Platelet Volume 7.4; Monocytes # (A) 0.4 k/uL (0-1.0); Monocytes % (A) 5 %; Neutrophils # (A) 3.2 k/uL (1.3-7.7); Neutrophils % (A) 45 %; Poikilocytosis Slight; RBC 3.02 m/uL (3.80-5.40); WBC 7.1 k/uL (3.8-10.6); WBC (Perox) 7.07
[2016-10-04 05:22] LABS: ALT 29 U/L (9-52); AST 28 U/L (14-36); Alkaline Phosphatase 50 U/L (38-126); Anion Gap 6 mmol/L; Blood Urea Nitrogen 27 mg/dL (7-17); Calcium 7.6 mg/dL (8.4-10.2); Carbon Dioxide 19 mmol/L (22-30); Chloride 108 mmol/L (98-107); Glucose 82 mg/dL (74-99); Non-African American GFR(MDRD) >60 (>60 ml/min/1.73 sqM); Potassium 4.3 mmol/L (3.5-5.1); Sodium 133 mmol/L (137-145); Total Bilirubin 0.8 mg/dL (0.2-1.3); Total Protein 5.5 g/dL (6.3-8.2)
[2016-10-04] MEDS: LEVOTHYROXINE 100 MCG TAB PO SCH (06:58)
[2016-10-04] MEDS: GABAPENTIN 300 MG CAP PO SCH ×2 (08:56→21:22)
[2016-10-04] MEDS: PANTOPRAZOLE 40 MG/10 ML VIAL IV SCH ×2 (08:56→21:22)
[2016-10-04] MEDS ORDERED: FERROUS SULFATE 325 MG TAB PO SCH (09:00)
[2016-10-04] MEDS ORDERED: PANTOPRAZOLE 40 MG/10 ML VIAL IV SCH (09:00)
[2016-10-04] MEDS ORDERED: BISACODYL 5 MG TABLET.DR PO STA (09:36)
--- NOTE | 2016-10-04 09:41 | P.CONS ---
History of Present Illness - Reason for Consult Consult date: 10/04/16 GI bleed Requesting physician: Compa Medina - History of Present Illness 70-year-old female PMH laryngeal carcinoma with radiation, gastric bypass 8 years ago, cholecystectomy, CAD with PCI stent, peptic ulcer disease presents "not feeling well". Patient had 2 emesis prior to arrival with red tinged blood. Mild epigastric discomfort as well as chronic lower back pain. Few darker colored stools over the last few months nothing recent. Consultation requested for GI bleed. Hypotensive 81/52 on arrival received intravenous fluids with improvement. Admission hemoglobin 7.3 received 2 units of blood presently 8.7. MCV 85. Platelets 318. INR 1.3. BUN 42. Creatinine 1.0. LFTs bilirubin normal. Lipase 51. Hemoccult stool positive. Home medications include iron supplementation daily as well as omeprazole 20 mg daily. Hemoglobin in September was 10.1. December 2015 9.9. Denies overt bleeding such as hematemesis or gross melena, hematochezia. Last EGD/colonoscopy several years ago. Review of Systems Constitutional: Denies fever, chills, sweats, weight gain, or loss. HEENT: Laryngeal carcinoma with radiation Negative for migraines, blurred vision or loss, earaches, drainage, tinnitus, oral mucosal lesions, dysphagia, or odynophagia. CARDIAC: CAD with PCI stent. Hypertension. Negative for chest pain, arrhythmias, or palpitation. RESPIRATORY: Negative for shortness of breath, hemoptysis, cough, or sputum production. GI: See HPI for pertinent findings. : Negative for hematuria, urgency, frequency, polyuria, or dysuria. GYNc: Denies possibility of . Negative vaginal discharge. MUSCULOSKELETAL: Negative for muscle aches, swelling, arthritis, and arthralgias. NEUROLOGIC: Negative for stroke or TIA. ENDOCRINE: Negative for thyroid problems. SKIN: Negative for rash or itching. PSYCHIATRIC: History of anxiety All systems: negative (See HPI) Past Medical History Past Medical History: Coronary Artery Disease (CAD), Cancer, Chest Pain / Angina , CVA/TIA, Eye Disorder, GERD/Reflux, Hypertension, Renal Disease Additional Past Medical History / Comment(s): Peptic ulcer disease, coronary artery disease ,chronic back pain, osteoarthritis, laryngeal cancer with a previous radiation therapy, TIA back in 2013, chronic bronchitis, head injury back in 2012, cataracts bilateral, hypertension. History of Any Multi-Drug Resistant Organisms: None Reported Past Surgical History: Bariatric Surgery, Cholecystectomy, Heart Catheterization , Heart Catheterization With Stent, Hysterectomy, Joint Replacement, Orthopedic Surgery, Tonsillectomy Additional Past Surgical History / Comment(s): PCIs with stents (total of 4 stents), bilateral knee replacement, left shoulder rotator cuff surgery, gastric bypass, D&C, EGD/colonoscopy, laryngeal tumor removed. Past Anesthesia/Blood Transfusion Reactions: No Reported Reaction Date of Last Stent Placement:: 2012 Smoking Status: Former smoker - Past Family History Mother Family Medical History: Congestive Heart Failure (CHF), Diabetes Mellitus, Hypertension Father Family Medical History: Myocardial Infarction (NE) Additional Family Medical History / Comment(s): Father of a NE at the age of 39yrs. Medications and Allergies Home Medications Medication Instructions Recorded Confirmed Type Gabapentin [Neurontin] 300 mg PO BID 09/11/16 10/03/16 History Levothyroxine Sodium 100 mcg PO DAILY 09/11/16 10/03/16 History Lisinopril [Zestril] 10 mg PO DAILY 09/11/16 10/03/16 History Omeprazole [Omeprazole] 20 mg PO DAILY 09/11/16 10/03/16 History Ferrous Sulfate [Feosol] 325 mg PO DAILY 10/03/16 10/03/16 History Simvastatin [Zocor] 20 mg PO HS 10/03/16 10/03/16 History Allergies Allergy/AdvReac Type Severity Reaction Status Date / Time No Known Allergies Allergy Verified 10/03/16 11:06 Physical Exam Vitals: Vital Signs Temp Pulse Pulse Resp BP BP Pulse Ox 10/04/16 06:00 55 L 10 L 93/51 97 10/04/16 05:00 59 L 11 L 124/60 98 10/04/16 04:00 97.6 F 73 18 112/67 98 10/04/16 03:00 55 L 11 L 87/47 98 10/04/16 02:00 48 L 9 L 103/41 97 10/04/16 01:00 56 L 11 L 96/51 99 10/04/16 00:00 97.9 F 65 14 120/62 98 10/03/16 23:00 70 10 L 98/61 97 10/03/16 22:00 60 10 L 119/66 97 10/03/16 21:01 97.9 F 63 14 173/80 97 10/03/16 21:00 61 12 173/80 98 10/03/16 20:00 66 17 176/85 100 10/03/16 19:30 98.1 F 62 10 L 142/73 99 10/03/16 19:10 98.1 F 65 13 142/73 98 10/03/16 19:00 66 14 142/73 99 10/03/16 18:50 98 F 64 17 142/78 98 10/03/16 18:40 63 15 142/78 99 10/03/16 18:35 63 18 142/78 99 10/03/16 18:30 64 12 142/78 98 10/03/16 17:30 97.9 F 64 18 142/78 97 10/03/16 17:00 61 12 142/78 97 10/03/16 16:05 97.9 F 55 L 21 114/49 99 10/03/16 16:00 97.9 F 55 L 15 110/60 98 10/03/16 15:54 97.9 F 58 L 16 110/60 10/03/16 15:35 97.9 F 70 18 133/65 97 10/03/16 15:25 97.6 F 58 L 13 104/60 99 10/03/16 15:00 59 L 12 107/58 100 10/03/16 14:00 62 11 L 139/71 94 L 10/03/16 13:30 97.4 F L 66 62 16 116/68 95 10/03/16 13:28 97.4 F L 10/03/16 12:48 56 L 131/60 99 10/03/16 12:02 54 L 18 81/52 100 10/03/16 11:47 61 16 117/55 94 L 10/03/16 11:00 58 L 16 112/57 100 10/03/16 10:17 97.4 F L 58 L 18 97 Intake and Output 10/03/16 10/04/16 10/04/16 22:59 06:59 14:59 Intake Total 1545 900 Output Total 225 450 Balance 1320 450 Intake: IV 800 800 Sodium Chloride 0.9% 1, 800 800 000 ml @ 100 mls/hr IV . Q10H [facility] Rx#:[id number] Oral 50 100 Blood Product 620 Rc As-1 Unit 310 [id number] Rc As-3 Unit 310 [id number] Other 75 Rc As-3 Unit 75 [id number] Output: Urine 225 450 Other: Voiding Method Bedside Commode Bedside Commode # Voids 1 Weight 105 kg General appearance: The patient is alert, oriented, in no acute distress. Appears pale. Weak. HET: Head is normocephalic and atraumatic. Pupils are equal and reactive. Oropharynx is clear without lesions. Neck: Supple without lymphadenopathy. Trachea midline. Heart: S1 S2. Regular rate and rhythm. Lungs: No crackles or wheezes are heard. Abdomen: Soft, nontender, nondistended with bowel sounds. No peritoneal signs. No palpable organomegaly or masses. Extremities: Normal skin color and turgor. No cyanosis, rash, ulceration, clubbing, or edema. Radial and pedal pulses are 2/4 bilaterally. Neurological: No focal deficits. Strength and sensation are grossly intact. Results CBC & Chem 7: 10/04/16 04:10 10/04/16 04:10 Labs: Abnormal Lab Results - Last 24 Hours (Table) 10/03/16 10/03/16 10/03/16 Range/Units 10:53 10:53 10:53 RBC 2.65 L (3.80-5.40) m/uL Hgb 7.3 L (11.4-16.0) gm/dL Hct 22.6 L (34.0-46.0) % RDW 16.0 H (11.5-15.5) % PT (9.0-12.0) sec Sodium 134 L (137-145) mmol/L Chloride (98-107) mmol/L Carbon Dioxide 18 L (22-30) mmol/L BUN 42 H (7-17) mg/dL Creatinine 1.07 H (0.52-1.04) mg/dL Glucose 108 H (74-99) mg/dL Plasma Lactic Acid Anthony (0.7-2.0) mmol/L Calcium (8.4-10.2) mg/dL Total Creatine Kinase 645 H (30-135) U/L Total Protein (6.3-8.2) g/dL Albumin (3.5-5.0) g/dL Amylase <30 L (30-110) U/L Urine Appearance (Clear) Urine Protein (Negative) Ur Leukocyte Esterase (Negative) Urine RBC (0-5) /hpf Urine WBC (0-5) /hpf Amorphous Sediment (None) /hpf Urine Bacteria (None) /hpf Hyaline Casts (0-2) /lpf Urine Mucus (None) /hpf Stool Occult Blood (Negative) Crossmatch 10/03/16 10/03/16 10/03/16 Range/Units 10:53 10:53 11:00 RBC (3.80-5.40) m/uL Hgb (11.4-16.0) gm/dL Hct (34.0-46.0) % RDW (11.5-15.5) % PT 12.7 H (9.0-12.0) sec Sodium (137-145) mmol/L Chloride (98-107) mmol/L Carbon Dioxide (22-30) mmol/L BUN (7-17) mg/dL Creatinine (0.52-1.04) mg/dL Glucose (74-99) mg/dL Plasma Lactic Acid Anthony 2.8 H* (0.7-2.0) mmol/L Calcium (8.4-10.2) mg/dL Total Creatine Kinase (30-135) U/L Total Protein (6.3-8.2) g/dL Albumin (3.5-5.0) g/dL Amylase (30-110) U/L Urine Appearance (Clear) Urine Protein (Negative) Ur Leukocyte Esterase (Negative) Urine RBC (0-5) /hpf Urine WBC (0-5) /hpf Amorphous Sediment (None) /hpf Urine Bacteria (None) /hpf Hyaline Casts (0-2) /lpf Urine Mucus (None) /hpf Stool Occult Blood Positive H (Negative) Crossmatch 10/03/16 10/03/16 10/03/16 Range/Units 11:35 14:34 21:58 RBC 3.02 L (3.80-5.40) m/uL Hgb 8.3 L (11.4-16.0) gm/dL Hct 26.0 L (34.0-46.0) % RDW (11.5-15.5) % PT (9.0-12.0) sec Sodium (137-145) mmol/L Chloride (98-107) mmol/L Carbon Dioxide (22-30) mmol/L BUN (7-17) mg/dL Creatinine (0.52-1.04) mg/dL Glucose (74-99) mg/dL Plasma Lactic Acid Anthony (0.7-2.0) mmol/L Calcium (8.4-10.2) mg/dL Total Creatine Kinase (30-135) U/L Total Protein (6.3-8.2) g/dL Albumin (3.5-5.0) g/dL Amylase (30-110) U/L Urine Appearance Cloudy H (Clear) Urine Protein Trace H (Negative) Ur Leukocyte Esterase Moderate H (Negative) Urine RBC 6 H (0-5) /hpf Urine WBC 11 H (0-5) /hpf Amorphous Sediment Rare H (None) /hpf Urine Bacteria Rare H (None) /hpf Hyaline Casts 17 H (0-2) /lpf Urine Mucus Rare H (None) /hpf Stool Occult Blood (Negative) Crossmatch See Detail 10/03/16 10/04/16 10/04/16 Range/Units 21:58 04:10 04:10 RBC 3.02 L (3.80-5.40) m/uL Hgb 8.7 L (11.4-16.0) gm/dL Hct 26.0 L (34.0-46.0) % RDW 16.0 H (11.5-15.5) % PT (9.0-12.0) sec Sodium 132 L 133 L (137-145) mmol/L Chloride 108 H (98-107) mmol/L Carbon Dioxide 17 L 19 L (22-30) mmol/L BUN 31 H 27 H (7-17) mg/dL Creatinine (0.52-1.04) mg/dL Glucose (74-99) mg/dL Plasma Lactic Acid Anthony (0.7-2.0) mmol/L Calcium 7.6 L 7.6 L (8.4-10.2) mg/dL Total Creatine Kinase (30-135) U/L Total Protein 5.5 L (6.3-8.2) g/dL Albumin 3.2 L (3.5-5.0) g/dL Amylase (30-110) U/L Urine Appearance (Clear) Urine Protein (Negative) Ur Leukocyte Esterase (Negative) Urine RBC (0-5) /hpf Urine WBC (0-5) /hpf Amorphous Sediment (None) /hpf Urine Bacteria (None) /hpf Hyaline Casts (0-2) /lpf Urine Mucus (None) /hpf Stool Occult Blood (Negative) Crossmatch Microbiology - Last 24 Hours (Table) 10/03/16 11:35 Urine Culture - Preliminary Urine,Voided Assessment and Plan (1) GI bleed Narrative/Plan: 70-year-old female presented with acute GI bleed symptomatic anemia with positive Hemoccult history gastric bypass with red tinged emesis and intermittent black stool over the last few months. Status: Acute (2) Symptomatic anemia Status: Acute (3) H/O gastric bypass Status: Acute (4) H/O laryngeal cancer Status: Acute (5) Obesity (BMI 30-39.9) Status: Acute (6) Acute blood loss anemia Status: Acute (7) Hypotension Status: Acute Plan: 1. EGD/colonoscopy. 2. Protonix 40 mg IV BID. 3. CBC monitoring. 4. Blood transfusion as necessary. Iron indices. The raw scales operator has discussed the risks, benefits and alternative therapies for the above-mentioned procedure and for both sedation/analgesia as well as necessary blood product administration, if indicated, as they pertain to this patient. The patient has indicated understanding and acceptance of the risks and procedures discussed. Thank you for this kind referral and the opportunity to participate in the care of your patient. This consultation was discussed with Dr. Beasley. The impression and plan of care have been directed as dictated.
[2016-10-04 10:06] VITALS: BMI 35.2
--- NOTE | 2016-10-04 11:57 | P.PN ---
Subjective 70-year-old female patient who presented emergency department this morning not feeling well. After breakfast she vomited twice and she was looking also pale. She had mild epigastric pain . The patient's son was concerned and he brought the patient of the burst department. The patient has not had any further episodes of emesis. She denies having abdominal pain for now. She denies having any melanotic stools. Note that she was in the emergency department on 09/11/2016 for back pain. At that time a CAT scan of the lumbar spine showed multi level degenerative changes as well as central canal narrowing most prominent at L4-L5. The patient's hemoglobin at that time was 10.1. Upon arrival yesterday midnight to the emergency department, her hemoglobin was 8.1 and later on during the day her hemoglobin dropped down to 7.3. Her stool for guaiac was positive. She was hospitalized for a GI bleed. She is currently receiving a unit of packed RBC. The patient admits of history of peptic ulcer disease. She has undergone a previous gastric bypass surgery at [facility] more than 10 years ago. She has coronary artery disease and denies being on aspirin and Plavix. She is not sure however she seems to have taken a tablet of Motrin this morning for increased back pain. The correlation profile is within normal limits. She is free of any chest pain. No change in mental status. She seems to be a poor historian. She is to be with Dr. Martell and currently she is with Dr. Hernández. On 10/04/2016 the patient is being seen in follow-up. The patient doing well. No further episodes of GI bleed. A total of 2 units of packed RBC was given to the patient hemoglobin is up to 8.7. The patient was also seen by GI. She'll be prepped for a colonoscopy and EGD for tomorrow. Hemodynamically stable. No other significant events overnight. The patient can be transferred out to a medical floor. Objective - Vital Signs Vital signs: Vital Signs Temp 97.6 F 10/04/16 08:00 Pulse 58 L 10/04/16 11:00 Resp 12 10/04/16 11:00 BP 117/62 10/04/16 11:00 Pulse Ox 99 10/04/16 11:00 Intake & Output 10/03/16 10/04/16 10/04/16 18:59 06:59 18:59 Intake Total 2310 1735 525 Output Total 100 575 300 Balance 2210 1160 225 Weight 103.5 kg 105 kg 105 kg Intake: IV 500 1200 500 Sodium Chloride 0.9% 1, 500 1200 500 000 ml @ 100 mls/hr IV . Q10H [facility] Rx#:[id number] Amount of Fluid Infused ( 1500 ml) Oral 150 25 Blood Product 310 310 Rc As-1 Unit 310 [id number] Rc As-3 Unit 0 310 [id number] Other 75 Rc As-3 Unit 75 [id number] Output: Urine 100 575 300 Other: Voiding Method Bedside Commode Bedside Commode Bedside Commode # Voids 1 - Exam The patient appeared well nourished and normally developed. Vital signs as documented. Head exam is unremarkable. No scleral icterus or corneal arcus noted. Neck is without jugular venous distension, thyromegaly, or carotid bruits. Carotid upstrokes are brisk bilaterally. Lungs are clear to auscultation and percussion. Cardiac exam reveals the PMI to be normally sized and situated. Rhythm is regular. First and second heart sounds normal. No murmurs, rubs or gallops. Abdominal exam reveals normal bowel sounds, no masses , no organomegaly and no aortic enlargement. Extremities are nonedematous and both femoral and pedal pulses are normal. - Labs CBC & Chem 7: 10/04/16 04:10 10/04/16 04:10 Labs: Abnormal Lab Results - Last 24 Hours (Table) 10/03/16 10/03/16 10/03/16 Range/Units 11:35 14:34 21:58 RBC 3.02 L (3.80-5.40) m/uL Hgb 8.3 L (11.4-16.0) gm/dL Hct 26.0 L (34.0-46.0) % RDW (11.5-15.5) % Sodium (137-145) mmol/L Chloride (98-107) mmol/L Carbon Dioxide (22-30) mmol/L BUN (7-17) mg/dL Calcium (8.4-10.2) mg/dL Total Protein (6.3-8.2) g/dL Albumin (3.5-5.0) g/dL Urine Appearance Cloudy H (Clear) Urine Protein Trace H (Negative) Ur Leukocyte Esterase Moderate H (Negative) Urine RBC 6 H (0-5) /hpf Urine WBC 11 H (0-5) /hpf Amorphous Sediment Rare H (None) /hpf Urine Bacteria Rare H (None) /hpf Hyaline Casts 17 H (0-2) /lpf Urine Mucus Rare H (None) /hpf Crossmatch See Detail 10/03/16 10/04/16 10/04/16 Range/Units 21:58 04:10 04:10 RBC 3.02 L (3.80-5.40) m/uL Hgb 8.7 L (11.4-16.0) gm/dL Hct 26.0 L (34.0-46.0) % RDW 16.0 H (11.5-15.5) % Sodium 132 L 133 L (137-145) mmol/L Chloride 108 H (98-107) mmol/L Carbon Dioxide 17 L 19 L (22-30) mmol/L BUN 31 H 27 H (7-17) mg/dL Calcium 7.6 L 7.6 L (8.4-10.2) mg/dL Total Protein 5.5 L (6.3-8.2) g/dL Albumin 3.2 L (3.5-5.0) g/dL Urine Appearance (Clear) Urine Protein (Negative) Ur Leukocyte Esterase (Negative) Urine RBC (0-5) /hpf Urine WBC (0-5) /hpf Amorphous Sediment (None) /hpf Urine Bacteria (None) /hpf Hyaline Casts (0-2) /lpf Urine Mucus (None) /hpf Crossmatch Microbiology - Last 24 Hours (Table) 10/03/16 11:35 Urine Culture - Preliminary Urine,Voided Assessment and Plan Plan: Assessment 1 upper GI bleed currently under investigation. The patient is stable in terms of her hemodynamics and hemoglobin. She got transfused with a total of 2 units of packed RBC. She'll be having an EGD and colonoscopy done tomorrow. 2 history of peptic ulcer disease/stomach ulcers 3 history of bariatric surgery with gastric bypass 4 coronary artery disease with previous history of coronary intervention and stenting, the patient states that she's not been taken aspirin or Plavix. 5 chronic back pain with multilevel degenerative disc disease, with questionable nonsteroidal anti-inflammatory medication intake 6 previous history of TIA 7 hypertension 8 anemia secondary to above Plan Continued IV fluids and the patient is currently on 0.9 at the rate of 100 mL an hour. Continue IV protonic. She is not clear liquid diet. The. This patient for a colonoscopy and EGD in the morning. She came moved out of the intensive care unit. She'll be going to a [facility] floor.
[2016-10-04] MEDS ORDERED: PEG 3350-NA SULF,BICARB,CL/KCL 4,000 ML BOTTLE PO ONE (15:00)
[2016-10-04 15:51] LABS: % Iron Saturation 60.6 % (20-50)
[2016-10-04] MEDS: LACTATED RINGERS 1,000 ML IV SCH (17:54)
[2016-10-04] MEDS: ATORVASTATIN 10 MG TAB PO SCH (21:22)
[2016-10-05] MEDS: LEVOTHYROXINE 100 MCG TAB PO SCH (05:49)
[2016-10-05] MEDS: SODIUM CHLORIDE 0.9% 1,000 ML IV SCH ×2 (05:50→16:49)
[2016-10-05] MEDS: PANTOPRAZOLE 40 MG/10 ML VIAL IV SCH ×2 (07:35→20:23)
[2016-10-05] MEDS: GABAPENTIN 300 MG CAP PO SCH ×2 (07:41→20:22)
[2016-10-05] MEDS: HYDROmorphone 1 MG/ML 1 ML SYRINGE IVP PRN ×2 (08:06→20:35)
[2016-10-05 08:36] LABS: Anisocytosis Slight; Basophils % (A) 1 %; CH 28.5; CHCM 33.3; Eosinophils # (A) 0.3 k/uL (0-0.7); Eosinophils % (A) 6 %; HCT 28.1 % (34.0-46.0); HDW 3.59; HGB 9.2 gm/dL (11.4-16.0); Luc # (Auto) 0.12; Luc % (Auto) 2; Lymphocytes # (A) 1.8 k/uL (1.0-4.8); Lymphocytes % (A) 33 %; MCH 28.3 pg (25.0-35.0); MCHC 32.9 g/dL (31.0-37.0); MCV 86.2 fL (80.0-100.0); Monocytes # (A) 0.3 k/uL (0-1.0); Monocytes % (A) 6 %; Neutrophils # (A) 2.9 k/uL (1.3-7.7); Neutrophils % (A) 52 %; Poikilocytosis Slight; RBC 3.26 m/uL (3.80-5.40); RDW 16.3 % (11.5-15.5); WBC 5.5 k/uL (3.8-10.6)
[2016-10-05 08:55] LABS: Anion Gap 9 mmol/L; Blood Urea Nitrogen 15 mg/dL (7-17); Calcium 7.9 mg/dL (8.4-10.2); Carbon Dioxide 20 mmol/L (22-30); Chloride 105 mmol/L (98-107); Glucose 84 mg/dL (74-99); Non-African American GFR(MDRD) >60 (>60 ml/min/1.73 sqM); Potassium 3.9 mmol/L (3.5-5.1); Sodium 134 mmol/L (137-145)
[2016-10-05] MEDS ORDERED: PROPOFOL 10 MG/ML 20 ML VIAL IV ONE (14:02)
[2016-10-05] MEDS ORDERED: LACTATED RINGERS 1,000 ML IV ONE (14:04)
--- NOTE | 2016-10-05 14:22 | P.PCN ---
Date of Procedure: 10/05/16 Preoperative Diagnosis: Postoperative Diagnosis: Procedure(s) Performed: Brief history: Patient is a pleasant 70-year-old white female, scheduled for an elective upper endoscopy as well as colonoscopy as a part of evaluation of acute GI bleed and severe symptomatic anemia. She she has history of gastric bypass surgery done 12 years ago. He had an episode of coffee-ground emesis when she came into the emergency room yesterday. Last hemoglobin is 9.5 g/dL. Procedure performed: Esophagogastroduodenoscopy with biopsy Colonoscopy Preoperative diagnosis: Acute GI bleed/anemia Anesthesia: MAC Procedure: After informed consent was obtained from the patient was brought into the endoscopy unit and IV sedation was administered by anesthesia under continuous monitoring. Initially upper endoscopy was done. The Olympus GF 160 video endoscope was inserted inserted into the mouth and esophagus intubated without any difficulty and was gradually advanced into the gastric pouch that appeared normal. At the Suzanna-en-Y anastomosis there were 2 ulcerations identified measuring a centimeters, superficial with no active bleeding. Biopsies were done from this area. Scope was advanced into 40 cm into the proximal jejunum that appeared normal. The scope was then withdrawn into the esophagus. The GE junction was located at 40 cm to the incisors. It appeared regular with no erythema erosions or ulcerations. Rest of the esophagus appeared normal. Patient tolerated the procedure well. At this time the patient continued to remain sedation. Initial digital rectal examination was normal. Olympus CF 160 video colonoscope was then inserted into the rectum and gradually advanced to the cecum without any difficulty. Careful examination was performed as the scope was gradually being withdrawn. The prep was excellent. The cecum, ascending colon, transverse colon, descending colon, sigmoid colon and rectum appeared normal. Retroflexion was performed in the rectum and no lesions were noted. Scattered sigmoid diverticulosis seen. Patient tolerated the procedure well. Impression: 1. Upper endoscopy revealed evidence of gastric bypass surgery with Suzanna-en-Y anastomosis and 2 superficial ulcerations measuring 2 cm in size at the anastomosis with no active bleeding. 2. Colonoscopy revealedScattered sigmoid diverticulosis but no evidence of colitis or colorectal neoplasia Recommendations: Findings of this examination were discussed with the patient as well as her family. She will be continued on Protonix 40 mg da area and diet will be be advanced as tolerated. Implants: Indications for Procedure: Operative Findings: Description of Procedure:
--- NOTE | 2016-10-05 16:06 | P.PN ---
Subjective 70-year-old female patient who presented emergency department this morning not feeling well. After breakfast she vomited twice and she was looking also pale. She had mild epigastric pain . The patient's son was concerned and he brought the patient of the burst department. The patient has not had any further episodes of emesis. She denies having abdominal pain for now. She denies having any melanotic stools. Note that she was in the emergency department on 09/11/2016 for back pain. At that time a CAT scan of the lumbar spine showed multi level degenerative changes as well as central canal narrowing most prominent at L4-L5. The patient's hemoglobin at that time was 10.1. Upon arrival yesterday midnight to the emergency department, her hemoglobin was 8.1 and later on during the day her hemoglobin dropped down to 7.3. Her stool for guaiac was positive. She was hospitalized for a GI bleed. She is currently receiving a unit of packed RBC. The patient admits of history of peptic ulcer disease. She has undergone a previous gastric bypass surgery at [facility] more than 10 years ago. She has coronary artery disease and denies being on aspirin and Plavix. She is not sure however she seems to have taken a tablet of Motrin this morning for increased back pain. The correlation profile is within normal limits. She is free of any chest pain. No change in mental status. She seems to be a poor historian. She is to be with Dr. Martell and currently she is with Dr. Hernández. On 10/04/2016 the patient is being seen in follow-up. The patient doing well. No further episodes of GI bleed. A total of 2 units of packed RBC was given to the patient hemoglobin is up to 8.7. The patient was also seen by GI. She'll be prepped for a colonoscopy and EGD for tomorrow. Hemodynamically stable. No other significant events overnight. The patient can be transferred out to a medical floor. On 09/08 and the patient is stable with a hemoglobin level of 9.2. The patient underwent an EGD today and the findings showed evidence of gastric bypass surgery with Suzanna-en-Y anastomosis and 2 superficial ulcerations measuring 2 cm in size at the anastomosis with no active bleeding. Colonoscopy revealed Scattered sigmoid diverticulosis but no evidence of colitis or colorectal neoplasia . The patient is hemodynamic is stable at this point. Objective - Vital Signs Vital signs: Vital Signs Temp 97.1 F L 10/05/16 15:00 Pulse 62 10/05/16 15:00 Resp 18 10/05/16 15:00 BP 146/70 10/05/16 15:00 Pulse Ox 92 L 10/05/16 15:00 Intake & Output 10/04/16 10/05/16 10/05/16 18:59 06:59 18:59 Intake Total 1305 100 Output Total 300 Balance 1005 100 Weight 105 kg Intake: IV 800 100 Sodium Chloride 0.9% 1, 800 000 ml @ 100 mls/hr IV . Q10H ALFREDO Rx#:[id number] Oral 505 Output: Urine 300 Other: Voiding Method Bedside Commode Toilet Bedside Commode # Voids 1 2 # Bowel Movements 2 3 - Exam The patient appeared well nourished and normally developed. Vital signs as documented. Head exam is unremarkable. No scleral icterus or corneal arcus noted. Neck is without jugular venous distension, thyromegaly, or carotid bruits. Carotid upstrokes are brisk bilaterally. Lungs are clear to auscultation and percussion. Cardiac exam reveals the PMI to be normally sized and situated. Rhythm is regular. First and second heart sounds normal. No murmurs, rubs or gallops. Abdominal exam reveals normal bowel sounds, no masses , no organomegaly and no aortic enlargement. Extremities are nonedematous and both femoral and pedal pulses are normal. - Labs CBC & Chem 7: 10/05/16 08:08 10/05/16 08:08 Labs: Abnormal Lab Results - Last 24 Hours (Table) 10/04/16 10/05/16 10/05/16 Range/Units 04:10 08:08 08:08 RBC 3.26 L (3.80-5.40) m/uL Hgb 9.2 L (11.4-16.0) gm/dL Hct 28.1 L (34.0-46.0) % RDW 16.3 H (11.5-15.5) % Sodium 134 L (137-145) mmol/L Carbon Dioxide 20 L (22-30) mmol/L Calcium 7.9 L (8.4-10.2) mg/dL Iron 194 H (37-170) ug/dL % Saturation 60.6 H (20-50) % Microbiology - Last 24 Hours (Table) 10/03/16 11:35 Urine Culture - Final Urine,Voided Assessment and Plan Plan: Assessment 1 upper GI bleed currently with Upper endoscopy revealed evidence of gastric bypass surgery with Suzanna-en-Y anastomosis and 2 superficial ulcerations measuring 2 cm in size at the anastomosis with no active bleeding. Colonoscopy revealed Scattered sigmoid diverticulosis but no evidence of colitis or colorectal neoplasia 2 history of peptic ulcer disease/stomach ulcers 3 history of bariatric surgery with gastric bypass 4 coronary artery disease with previous history of coronary intervention and stenting, the patient states that she's not been taken aspirin or Plavix. 5 chronic back pain with multilevel degenerative disc disease, with questionable nonsteroidal anti-inflammatory medication intake 6 previous history of TIA 7 hypertension 8 anemia secondary to above Plan Continue Protonix. Advance diet. Pulmonary critical care will sign off.
[2016-10-05] MEDS: HYDROcodone/APAP 5-325MG 1 EACH TAB PO PRN (16:52)
[2016-10-05] MEDS: LACTATED RINGERS 1,000 ML IV SCH ×2 (16:52→20:26)
[2016-10-05] MEDS: ATORVASTATIN 10 MG TAB PO SCH (20:22)
[2016-10-05 23:51] VITALS: RESP 20
[2016-10-06] MEDS: SODIUM CHLORIDE 0.9% 1,000 ML IV SCH ×2 (04:27→13:01)
[2016-10-06] MEDS: LEVOTHYROXINE 100 MCG TAB PO SCH (05:45)
[2016-10-06 07:44] VITALS: BP 155/79; PULSE 54; TEMP 97.2
[2016-10-06 07:57] LABS: Anisocytosis Slight; Basophils % (A) 1 %; CH 28.5; CHCM 33.5; Eosinophils # (A) 0.3 k/uL (0-0.7); Eosinophils % (A) 6 %; HCT 27.2 % (34.0-46.0); HDW 3.39; Luc # (Auto) 0.12; Luc % (Auto) 2; Lymphocytes # (A) 1.8 k/uL (1.0-4.8); Lymphocytes % (A) 35 %; MCH 28.3 pg (25.0-35.0); MCHC 33.1 g/dL (31.0-37.0); MCV 85.5 fL (80.0-100.0); Mean Platelet Volume 7.3; Monocytes # (A) 0.3 k/uL (0-1.0); Monocytes % (A) 5 %; Neutrophils # (A) 2.6 k/uL (1.3-7.7); Neutrophils % (A) 51 %; RBC 3.18 m/uL (3.80-5.40); RDW 16.8 % (11.5-15.5); WBC 5.2 k/uL (3.8-10.6); WBC (Perox) 5.07
[2016-10-06 08:50] LABS: Anion Gap 7 mmol/L; Blood Urea Nitrogen 11 mg/dL (7-17); Calcium 8.1 mg/dL (8.4-10.2); Carbon Dioxide 22 mmol/L (22-30); Chloride 104 mmol/L (98-107); Glucose 81 mg/dL (74-99); Non-African American GFR(MDRD) >60 (>60 ml/min/1.73 sqM); Potassium 4.2 mmol/L (3.5-5.1); Sodium 133 mmol/L (137-145)
[2016-10-06] MEDS: GABAPENTIN 300 MG CAP PO SCH (08:57)
[2016-10-06] MEDS ORDERED: PANTOPRAZOLE 40 MG TABLET PO SCH (09:00)
[2016-10-06] MEDS: HYDROcodone/APAP 5-325MG 1 EACH TAB PO PRN (09:02)
--- NOTE | 2016-10-06 09:41 | HP ---
CHIEF COMPLAINT: Nausea, vomiting, diarrhea and possible gastrointestinal bleed. HISTORY OF PRESENT ILLNESS: This 70-year-old woman with past medical history of CAD, history of CVA, TIA, history of GERD, hypertension, history of peptic ulcer disease, history of bariatric surgery, CAD/stent, being followed by Dr. Xin Hernández in the outpatient setting, apparently had back pain. The patient was evaluated in the ER. Currently, the patient is complaining of nausea, vomiting, diarrhea, multiple episodes and the patient came to [facility] and hemoglobin found to be 7.3. The patient was looking pale. The patient was found to be anemic. The patient vomited twice after breakfast. The patient was taking Percocet at home. Because of increasing difficulty, the patient came to [facility] and admitted for further evaluation and treatment. The blood pressure on admission went down to 81/50, indicating hypotension. The patient was bradycardic. Hemoglobin was found to be 7.3. The patient received multiple transfusions. The patient is being closely monitored. There is no history of fever, rigors or chills. No history of headache, loss of consciousness or seizures. Plasma lactic acid 2.8. UA was noted. Stool OB positive. Past medical history: History of CAD, back pain, DJD, CVA, TIA, GERD, hypertension, history of peptic ulcer disease, history of bariatric surgery, CAD , stent. MEDICATIONS: Prior to admission include home medications: 1. Levothyroxine 100 mcg po daily. 2. Neurontin 300 mg po b.i.d. x3. Zocor 20 mg q.h.s. 4. Omeprazole 20 mg daily. 5. Zestril 10 mg daily. 6. Hydrocodone 5 mg p.o. q6h prn 7. Iron sulfate 320 mg po daily. ALLERGIES: None. FAMILY HISTORY: History of CHF, diabetes, hypertension in the family. SOCIAL HISTORY: Previous history of smoking, no history of alcohol intake. REVIEW OF SYSTEMS: HEENT: No diminished vision. No diminished vision. CARDIOVASCULAR: No angina or palpitations. RESPIRATORY: As mentioned earlier. GI: As mentioned earlier. : No dysuria. NERVOUS SYSTEM: No numbness, weakness. ALLERGY/IMMUNOLOGY: No asthma or hayfever. MUSCULOSKELETAL: As mentioned earlier. HEMATOLOGY/ONCOLOGY: As mentioned earlier. ENDOCRINE: No diabetes or hypothyroidism. CONSTITUTIONAL: As mentioned earlier. DERMATOLOGY: Negative. RHEUMATOLOGY: Negative. PSYCHIATRY: As mentioned earlier. PHYSICAL EXAMINATION: Alert and oriented times three. Pulse 54. Blood pressure 131/61. Respiratory rate 18. Temperature 97.4. Pulse ox 100% on room air. HEENT: Conjunctivae pale. Oral mucosa moist. NECK: Jugular venous distention at the root of the neck. CARDIOVASCULAR: S1, S2 muffled. Ejection systolic murmur. No S3, no S4. RESPIRATORY: Breath sounds diminished at the bases. A few scattered rhonchi. No crackles. ABDOMEN: Soft, obese, nontender, no mass palpable. No hepatosplenomegaly. No guarding. No rigidity. No ascites. LEGS: No edema. No swelling. NERVOUS SYSTEM: Higher functions as mentioned earlier. Moves all four limbs. No focal motor or sensory deficits. LYMPHATICS: No lymph nodes palpable in the neck, axillae or groin. SKIN: No ulcer, rash or bleeding. Labs at this time shows WBC 8, hemoglobin 7.3, INR 1.3, sodium 134, ( ) 2.8 , UA noted. ASSESSMENT: 1. Symptomatic anemia with hypotension with hypotensive shock secondary to gastrointestinal bleed and acute blood loss anemia. 2. Increased sodium. 3. Increased creatinine with mild acute renal failure. 4. Increased plasma lactic acidosis, possibly secondary to dehydration, rule out urinary tract infection. 5. History of back pain. 6. Peptic ulcer disease. 7. History of coronary artery disease. 8. History of cerebrovascular disease, transient ischemic attack. 9. History of hypertension, essential. 10. History of renal disease. 11. History of peptic ulcer disease. 12. History of chronic back pain. 13. History of laryngeal cancer with previous radiation therapy. 14. History of transient ischemic attack. 15. History of head injury. 17. History of coronary artery disease, stent. 18. History of degenerative joint disease. 19. History of anxiety, not otherwise specified. 20. Remote history of nicotine dependence. 21. Obesity with body mass index of 34.7. 22. FULL CODE. RECOMMENDATIONS AND DISCUSSION: In this 70 year old woman who presented with multiple complex medical issues, we will monitor the patient closely, continue the current medications, continue symptomatic treatment, continue cautious IV fluids. Transfuse at least 2 units. Monitor closely. Proton pump inhibitors and I would also recommend gastroenterology consultation for possible endoscopy. Dr. Schofield for ICU management. Further recommendations to follow. MTDD
--- NOTE | 2016-10-06 15:58 | P.PN ---
Subjective Date of service 10/05/2016 Progress note being dictated for Dr. Medina. General history: This a 70-year-old female admitted with acute GI bleed, symptomatic acute blood loss anemia, in a patient with history of laryngeal cancer, gastric bypass and multiple other medical issues. Hemoglobin currently 9.2. Gentle IV fluid hydration, VSS. Denies nausea ,vomiting. No hemoptysis, no hematemesis ,no rectal bleeding. Evaluated by GI and patient underwent EGD and colonoscopy today. Tolerated procedure well. EGD reporting evidence of gastric bypass surgery with Suzanna-en-Y anastomosis, superficial ulcerations measuring 2 cm in size at the anastomosis without active bleeding. Colonoscopy reported scattered sigmoid diverticulosis without evidence of colitis or colorectal neoplasia. Maintained on Protonix. Diet advanced as per GI. Objective - Vital Signs Vital signs: Vital Signs Temp 97.1 F L 10/05/16 15:00 Pulse 62 10/05/16 15:00 Resp 18 10/05/16 15:00 BP 146/70 10/05/16 15:00 Pulse Ox 92 L 10/05/16 15:00 Intake & Output 10/05/16 10/05/16 10/06/16 06:59 18:59 06:59 Intake Total 100 Balance 100 Intake: IV 100 Other: Voiding Method Toilet Bedside Commode # Voids 1 2 # Bowel Movements 2 3 - Exam PHYSICAL EXAM: VITAL SIGNS: As above GENERAL: [Sitting up in bed, no acute distress, tired appearing] HEENT: [Pupils equal conjunctiva normal. Oral mucosa moist] NECK: [Supple, no JVD] RESPIRATORY EFFORT:[ Normal] LUNGS: [Clear, Diminished bases, no wheezes rhonchi or crackles] CARDIOVASCULAR[ regular S1 and S2, no murmurs rubs or gallops, no edema] GI: [Abdomen soft, nontender, positive bowel sounds. No organomegaly, no guarding, no rigidity.] PSYCH: [Alert and oriented -3, mood and affect normal.] NEURO: No focal deficits, generalized diffuse weakness, moves all 4 extremities , strength and sensation grossly intact - Labs CBC & Chem 7: 10/06/16 07:27 10/06/16 07:27 Labs: Abnormal Lab Results - Last 24 Hours (Table) 10/05/16 10/05/16 Range/Units 08:08 08:08 RBC 3.26 L (3.80-5.40) m/uL Hgb 9.2 L (11.4-16.0) gm/dL Hct 28.1 L (34.0-46.0) % RDW 16.3 H (11.5-15.5) % Sodium 134 L (137-145) mmol/L Carbon Dioxide 20 L (22-30) mmol/L Calcium 7.9 L (8.4-10.2) mg/dL Microbiology - Last 24 Hours (Table) 10/03/16 11:35 Urine Culture - Final Urine,Voided Assessment and Plan Plan: 1. [ Acute GI bleed, status post EGD and colonoscopy. Superficial ulcerations 2 cm at the anastomosis site of prior gastric bypass surgery with Suzanna-en-Y anastomosis, scattered sigmoid diverticulosis.]. 2. [ Acute blood loss anemia, symptomatic]. 3. [ History of laryngeal carcinoma, radiation treatment]. 4. [ History of gastric bypass and Suzanna-en-Y anastomosis]. 5. [ Peptic ulcer disease, history of stomach ulcers]. 6. [ Acute Hypotension, resolved in a patient with history of hypertension]. 7. [ Morbid Obesity, BMI 35.2]. 8. CAD, history of cardiac stents 9. History of TIA 10. Degenerative disc disease, chronic back pain Plan: Continue on current medication regime , PPI, monitoring and symptomatic treatment. Diet advancement as per GI. Close monitoring of CBC, repeat labs ordered for a.m. Discharge planning in progress for tomorrow. The impression and plan of care has been dictated as directed. : I performed a H&P examination of this patient and discussed the same with the dictator. I agree with the dictator's note. Any additional findings/opinions/ etc. will be noted.
--- NOTE | 2016-10-07 07:53 | PN ---
DATE OF SERVICE: 10/04/2016 This 70-year-old woman who was admitted with GI bleed and hypotension is being closely monitored. The patient received multiple transfusions, 2 unit transfusion. Hemoglobin is 8.7. No active bleeding is noted. Gastroenterology is following the patient closely, planning EGD tomorrow. The patient will be closely monitored in ICU at this time. The patient has also been closely monitored at this time. PAST MEDICAL HISTORY: Reviewed. REVIEW OF SYSTEMS: CARDIOVASCULAR: S1 and S2, muffled. RESPIRATORY: As mentioned earlier. GI: As mentioned. : No dysuria. NERVOUS SYSTEM: No numbness or weakness. Current medications are: 1. [place] 5 mg q.6 p.r.n. 2. Xanax 0.25 t.i.d. 3. Lipitor 10 mg q.h.s. 4. Neurontin 300 mg b.i.d. 5. Dilaudid 0.5 mg q.6 p.r.n. 6. Synthroid 100 mcg p.o. daily. 7. Narcan. 8. Protonix. 9. Restoril. PHYSICAL EXAM: The patient is alert and oriented x3. Pulse is 61. Blood pressure is 114/71, respirations 16, temperature is 97.1, pules ox 93% on room air. HEENT: Conjunctivae normal. NECK: No jugular venous distention. CARDIOVASCULAR: S1 and S2 muffled. RESPIRATORY: Breath sounds diminished at the bases. A few scattered rhonchi and crackles. ABDOMEN: Soft, obese, nontender. No mass palpable. No guarding. No rigidity. Mild distention present. LEGS: No edema. No swelling. NERVOUS SYSTEM: Higher function as mentioned. Moves all 4 limbs. No focal motor or sensory deficits. LYMPHATICS: No lymphadenopathy of the neck, axillae or groin. SKIN: No ulcers, rashes or bleeding. LABS: WBC 7.1, hemoglobin 8.7. Sodium 133. Calcium is 7.6. ASSESSMENT: 1. Acute gastrointestinal bleeding with acute blood loss anemia for evaluation. Rule out peptic ulcer disease. 2. Anemia, normocytic. 3. Hyponatremia. 4. Hypoalbuminemia with mild to moderate protein calorie malnutrition. 5. History of coronary artery disease. 6. History of cerebrovascular accident, transient ischemic attack. 7. History of gastroesophageal reflux disease. 8. Hypertension. 9. History of bariatric surgery. 10. Histor of multiple medical issues. RECOMMENDATION AND DISCUSSION: This 70-year-old woman who presented with multiple complex medical issues. Will monitor the patient closely. The patient received 2 units transfusion. Blood pressure has improved. However, the patient continues to have anemia. No active bleeding we will follow the patient closely with Gastroenterology for possible upper endoscopy and continued monitoring. Continue the rest of the medication, avoid NSAIDs and antiplatelets agents at this time. Prognosis guarded. Further recommendations to follow. MTDD
== END 2016-10-06 13:35 | disposition home health service (06) | DRG 378 ==
LOC: EC 10:15 → 6ICU 12:47 → 4MS4W 10-04 14:11
PROVIDERS: ADMIT Internal Medicine; ATTEND Internal Medicine
PROC: 0DJD8ZZ Inspection of Lower Intestinal Tract, Via Natural or Artificial Opening Endoscopic (ICD-10-PCS; principal; 2016-10-05 14:20)
PROC: 0DB68ZX Excision of Stomach, Via Natural or Artificial Opening Endoscopic, Diagnostic (ICD-10-PCS; principal; 2016-10-05 14:20)
DX: K25.4 Chronic or unspecified gastric ulcer with hemorrhage (principal); D62 Acute posthemorrhagic anemia; R57.9 Shock, unspecified; N17.9 Acute kidney failure, unspecified; E87.2 Acidosis; E44.0 Moderate protein-calorie malnutrition; E87.1 Hypo-osmolality and hyponatremia; E66.9 Obesity, unspecified; G89.29 Other chronic pain; I10 Essential (primary) hypertension; I25.10 Atherosclerotic heart disease of native coronary artery without angina pectoris; J42 Unspecified chronic bronchitis; K21.9 Gastro-esophageal reflux disease without esophagitis; K57.30 Diverticulosis of large intestine without perforation or abscess without bleeding; Z68.34 Body mass index [BMI] 34.0-34.9, adult; Z79.899 Other long term (current) drug therapy; Z82.49 Family history of ischemic heart disease and other diseases of the circulatory system; Z85.21 Personal history of malignant neoplasm of larynx; Z86.73 Personal history of transient ischemic attack (TIA), and cerebral infarction without residual deficits; Z87.891 Personal history of nicotine dependence; Z92.3 Personal history of irradiation; Z95.5 Presence of coronary angioplasty implant and graft; Z96.653 Presence of artificial knee joint, bilateral; Z98.84 Bariatric surgery status
CPT/HCPCS: 36415; 43239; 74020; 80048; 80053; 81001; 82150; 82272; 82550; 82553; 82728; 83540; 83550; 83605; 83690; 84484; 85025; 85610; 86850; 86900; 86901; 86920; 87086; 88305; 88342; 93005; 96361; 96374; 96375; 99285

== ENCOUNTER 2016-10-08 17:03 | Emergency (ER) | payer MEDICARE ==
[2016-10-08] MEDS ORDERED: FAMOTIDINE 20 MG/2 ML VIAL IV STA (17:37)
[2016-10-08] MEDS ORDERED: SODIUM CHLORIDE 0.9% 1,000 ML IV ONE (17:37)
[2016-10-08] MEDS ORDERED: ONDANSETRON 4 MG/2 ML VIAL IVP STA (17:37)
--- NOTE | 2016-10-08 17:44 | ED ---
Nausea/Vomiting/Diarrhea HPI - General Chief complaint: Nausea/Vomiting/Diarrhea Stated complaint: Vomiting Time Seen by Provider: 10/08/16 17:30 Source: patient Mode of arrival: wheelchair Limitations: no limitations - History of Present Illness Initial comments: This is a 70-year-old female with a recent history of GI bleed at the anastomosis of her Suzanna-en-Y gastric bypass. She was seen at her doctor's office today as a follow-up visit however was having persistent nausea, vomiting , diarrhea that started yesterday. She's had 4 episodes. She denies any dark or bloody stools. She denies any lightheadedness or chest pain or shortness of breath. She states there is no blood in the vomit as well. She does admit to some epigastric abdominal pain. No dysuria or hematuria. She is not anticoagulated. Her primary doctor sent her in here because she was concerned for recurrent GI bleed. - Related Data Home Medications Medication Instructions Recorded Confirmed Gabapentin [Neurontin] 300 mg PO BID 09/11/16 10/08/16 Levothyroxine Sodium 100 mcg PO DAILY 09/11/16 10/08/16 Lisinopril [Zestril] 10 mg PO DAILY 09/11/16 10/08/16 Omeprazole 20 mg PO DAILY 09/11/16 10/08/16 Simvastatin [Zocor] 20 mg PO HS 10/03/16 10/08/16 Previous Rx's Medication Instructions Recorded HYDROcodone/APAP 5-325MG [[place] 1 tab PO Q6HR PRN #15 tab 06/29/16 5-325] Pantoprazole [Protonix] 40 mg PO BID #60 tab 10/06/16 Omeprazole [PriLOSEC] 20 mg PO AC-BRKFST #30 cap 10/08/16 Ondansetron Odt [Zofran Odt] 4 mg PO Q8HR PRN #15 tab 10/08/16 Allergies Allergy/AdvReac Type Severity Reaction Status Date / Time No Known Allergies Allergy Verified 10/03/16 11:06 Review of Systems ROS Statement: Those systems with pertinent positive or pertinent negative responses have been documented in the HPI. ROS Other: All systems not noted in ROS Statement are negative. Past Medical History Past Medical History: Coronary Artery Disease (CAD), Cancer, Chest Pain / Angina , CVA/TIA, Eye Disorder, GERD/Reflux, Hypertension, Renal Disease Additional Past Medical History / Comment(s): Peptic ulcer disease, coronary artery disease ,chronic back pain, osteoarthritis, laryngeal cancer with a previous radiation therapy, TIA back in 2013, chronic bronchitis, head injury back in 2012, cataracts bilateral, hypertension. History of Any Multi-Drug Resistant Organisms: None Reported Past Surgical History: Bariatric Surgery, Cholecystectomy, Heart Catheterization , Heart Catheterization With Stent, Hysterectomy, Joint Replacement, Orthopedic Surgery, Tonsillectomy Additional Past Surgical History / Comment(s): PCIs with stents (total of 4 stents), bilateral knee replacement, left shoulder rotator cuff surgery, gastric bypass, D&C, EGD/colonoscopy, laryngeal tumor removed. Past Anesthesia/Blood Transfusion Reactions: No Reported Reaction Date of Last Stent Placement:: 2012 Past Psychological History: Anxiety Smoking Status: Former smoker - Past Family History Mother Family Medical History: Congestive Heart Failure (CHF), Diabetes Mellitus, Hypertension Father Family Medical History: Myocardial Infarction (MD) Additional Family Medical History / Comment(s): Father of a MD at the age of 39yrs. General Exam - General Exam Comments Initial Comments: Constitutional: Awake alert Appears comfortable Head: Normocephalic atraumatic Eyes: no conjunctival injection No scleral icterus EOMI Neck: No JVD Supple Heart: Regular rate rhythm normal S1-S2 no murmurs Lungs: Clear to auscultation bilaterally No wheezing No rales Abdomen: Soft nondistended I'll do epigastric tenderness without rebound or guarding Extremities: Non edematous DP pulses intact Radial pulses intact Neuro: A&Ox3 No focal neurologic deficits Psych: Appropriate mood and affect Limitations: no limitations Course Vital Signs 10/08/16 10/08/16 10/08/16 17:07 19:00 19:27 Temperature 98.6 F 97.6 F Pulse Rate 85 81 74 Respiratory 20 20 18 Rate Blood Pressure 145/89 135/65 140/76 O2 Sat by Pulse 98 99 93 L Oximetry - Reevaluation(s) Reevaluation #1: 10/08/16 19:07 EKG showing normal sinus rhythm with a rate of 75. There is T-wave flattening throughout however no abnormal ST segment changes. QTC is 402. Other intervals are normal. No ectopy. Medical Decision Making - Medical Decision Making Is a 70-year-old female presented for nausea, vomiting, diarrhea. She had blood work performed that was unremarkable. Hemoglobin is 10 which is baseline. She was not acutely dehydrated. No blood in her stool. UA was unremarkable. X-ray did not show signs of obstruction. This time the patient wants to go home. I'm going to send her home on Zofran and Prilosec. The patient states that she was supposed to be on Prilosec however did not of the money to buy her prescriptions. She states that she can have her son buy the prescription for her. She is going to follow-up with her primary doctor as an outpatient. she can return if she has any worsening or changing symptoms. All questions were answered. - Lab Data Result diagrams: 10/08/16 18:00 10/08/16 18:00 Lab Results 10/08/16 10/08/16 10/08/16 Range/Units 18:00 18:00 18:00 WBC 5.5 (3.8-10.6) k/uL RBC 3.51 L (3.80-5.40) m/uL Hgb 10.0 L (11.4-16.0) gm/dL Hct 29.5 L (34.0-46.0) % MCV 84.1 (80.0-100.0) fL MCH 28.4 (25.0-35.0) pg MCHC 33.8 (31.0-37.0) g/dL RDW 17.3 H (11.5-15.5) % Plt Count 303 (150-450) k/uL Neutrophils % 58 % Lymphocytes % 29 % Monocytes % 5 % Eosinophils % 4 % Basophils % 1 % Neutrophils # 3.2 (1.3-7.7) k/uL Lymphocytes # 1.6 (1.0-4.8) k/uL Monocytes # 0.3 (0-1.0) k/uL Eosinophils # 0.2 (0-0.7) k/uL Basophils # 0.0 (0-0.2) k/uL Anisocytosis Slight PT 17.6 H (9.0-12.0) sec INR 1.8 (<1.1) APTT 38.1 H (22.0-30.0) sec Sodium 133 L (137-145) mmol/L Potassium 4.2 (3.5-5.1) mmol/L Chloride 101 (98-107) mmol/L Carbon Dioxide 22 (22-30) mmol/L Anion Gap 10 mmol/L BUN 12 (7-17) mg/dL Creatinine 0.90 (0.52-1.04) mg/dL Est GFR (MDRD) Af Amer >60 (>60 ml/min/1.73 sqM) Est GFR (MDRD) Non-Af >60 (>60 ml/min/1.73 sqM) Glucose 90 (74-99) mg/dL Plasma Lactic Acid Anthony (0.7-2.0) mmol/L Calcium 9.0 (8.4-10.2) mg/dL Magnesium 2.0 (1.6-2.3) mg/dL Total Bilirubin 0.6 (0.2-1.3) mg/dL AST 42 H (14-36) U/L ALT 28 (9-52) U/L Alkaline Phosphatase 67 (38-126) U/L Total Protein 6.5 (6.3-8.2) g/dL Albumin 3.9 (3.5-5.0) g/dL Amylase <30 L (30-110) U/L Lipase 63 (23-300) U/L Urine Color Urine Appearance (Clear) Urine pH (5.0-8.0) Ur Specific [place] (1.001-1.035) Urine Protein (Negative) Urine Glucose (UA) (Negative) Urine Ketones (Negative) Urine Blood (Negative) Urine Nitrite (Negative) Urine Bilirubin (Negative) Urine Urobilinogen (<2.0) mg/dL Ur Leukocyte Esterase (Negative) Stool Occult Blood (Negative) Blood Type Blood Type Recheck Antibody Screen Spec Expiration Date 10/08/16 10/08/16 10/08/16 Range/Units 18:00 18:35 19:08 WBC (3.8-10.6) k/uL RBC (3.80-5.40) m/uL Hgb (11.4-16.0) gm/dL Hct (34.0-46.0) % MCV (80.0-100.0) fL MCH (25.0-35.0) pg MCHC (31.0-37.0) g/dL RDW (11.5-15.5) % Plt Count (150-450) k/uL Neutrophils % % Lymphocytes % % Monocytes % % Eosinophils % % Basophils % % Neutrophils # (1.3-7.7) k/uL Lymphocytes # (1.0-4.8) k/uL Monocytes # (0-1.0) k/uL Eosinophils # (0-0.7) k/uL Basophils # (0-0.2) k/uL Anisocytosis PT (9.0-12.0) sec INR (<1.1) APTT (22.0-30.0) sec Sodium (137-145) mmol/L Potassium (3.5-5.1) mmol/L Chloride (98-107) mmol/L Carbon Dioxide (22-30) mmol/L Anion Gap mmol/L BUN (7-17) mg/dL Creatinine (0.52-1.04) mg/dL Est GFR (MDRD) Af Amer (>60 ml/min/1.73 sqM) Est GFR (MDRD) Non-Af (>60 ml/min/1.73 sqM) Glucose (74-99) mg/dL Plasma Lactic Acid Anthony 2.0 (0.7-2.0) mmol/L Calcium (8.4-10.2) mg/dL Magnesium (1.6-2.3) mg/dL Total Bilirubin (0.2-1.3) mg/dL AST (14-36) U/L ALT (9-52) U/L Alkaline Phosphatase (38-126) U/L Total Protein (6.3-8.2) g/dL Albumin (3.5-5.0) g/dL Amylase (30-110) U/L Lipase (23-300) U/L Urine Color Light Yellow Urine Appearance Clear (Clear) Urine pH 8.0 (5.0-8.0) Ur Specific [place] 1.006 (1.001-1.035) Urine Protein Negative (Negative) Urine Glucose (UA) Negative (Negative) Urine Ketones Negative (Negative) Urine Blood Negative (Negative) Urine Nitrite Negative (Negative) Urine Bilirubin Negative (Negative) Urine Urobilinogen 3.0 (<2.0) mg/dL Ur Leukocyte Esterase Negative (Negative) Stool Occult Blood (Negative) Blood Type A Positive Blood Type Recheck No Antibody Screen NEGATIVE Spec Expiration Date 10/11/16 1703 10/08/16 Range/Units 19:08 WBC (3.8-10.6) k/uL RBC (3.80-5.40) m/uL Hgb (11.4-16.0) gm/dL Hct (34.0-46.0) % MCV (80.0-100.0) fL MCH (25.0-35.0) pg MCHC (31.0-37.0) g/dL RDW (11.5-15.5) % Plt Count (150-450) k/uL Neutrophils % % Lymphocytes % % Monocytes % % Eosinophils % % Basophils % % Neutrophils # (1.3-7.7) k/uL Lymphocytes # (1.0-4.8) k/uL Monocytes # (0-1.0) k/uL Eosinophils # (0-0.7) k/uL Basophils # (0-0.2) k/uL Anisocytosis PT (9.0-12.0) sec INR (<1.1) APTT (22.0-30.0) sec Sodium (137-145) mmol/L Potassium (3.5-5.1) mmol/L Chloride (98-107) mmol/L Carbon Dioxide (22-30) mmol/L Anion Gap mmol/L BUN (7-17) mg/dL Creatinine (0.52-1.04) mg/dL Est GFR (MDRD) Af Amer (>60 ml/min/1.73 sqM) Est GFR (MDRD) Non-Af (>60 ml/min/1.73 sqM) Glucose (74-99) mg/dL Plasma Lactic Acid Anthony (0.7-2.0) mmol/L Calcium (8.4-10.2) mg/dL Magnesium (1.6-2.3) mg/dL Total Bilirubin (0.2-1.3) mg/dL AST (14-36) U/L ALT (9-52) U/L Alkaline Phosphatase (38-126) U/L Total Protein (6.3-8.2) g/dL Albumin (3.5-5.0) g/dL Amylase (30-110) U/L Lipase (23-300) U/L Urine Color Urine Appearance (Clear) Urine pH (5.0-8.0) Ur Specific [place] (1.001-1.035) Urine Protein (Negative) Urine Glucose (UA) (Negative) Urine Ketones (Negative) Urine Blood (Negative) Urine Nitrite (Negative) Urine Bilirubin (Negative) Urine Urobilinogen (<2.0) mg/dL Ur Leukocyte Esterase (Negative) Stool Occult Blood Negative (Negative) Blood Type Blood Type Recheck Antibody Screen Spec Expiration Date Disposition Clinical Impression: Epigastric pain, Nausea vomiting and diarrhea, Gastritis Disposition: HOME SELF-CARE Condition: Stable Instructions: Acute Nausea and Vomiting (ED), Indigestion (ED) Prescriptions: Omeprazole [PriLOSEC] 20 mg PO AC-BRKFST #30 cap Ondansetron Odt [Zofran Odt] 4 mg PO Q8HR PRN #15 tab PRN Reason: Nausea Referrals: Xin Hernández MD [Primary Care Provider] - 1-2 days
[2016-10-08 18:18] LABS: Anisocytosis Slight; Basophils % (A) 1 %; CH 28.6; CHCM 34.2; Eosinophils # (A) 0.2 k/uL (0-0.7); Eosinophils % (A) 4 %; HCT 29.5 % (34.0-46.0); HDW 3.21; Luc # (Auto) 0.12; Luc % (Auto) 2; Lymphocytes # (A) 1.6 k/uL (1.0-4.8); Lymphocytes % (A) 29 %; MCH 28.4 pg (25.0-35.0); MCHC 33.8 g/dL (31.0-37.0); MCV 84.1 fL (80.0-100.0); Mean Platelet Volume 7.2; Monocytes # (A) 0.3 k/uL (0-1.0); Monocytes % (A) 5 %; Neutrophils # (A) 3.2 k/uL (1.3-7.7); Neutrophils % (A) 58 %; RBC 3.51 m/uL (3.80-5.40); RDW 17.3 % (11.5-15.5); WBC 5.5 k/uL (3.8-10.6)
[2016-10-08 18:31] LABS: INR 1.8 (<1.1); Partial Thromboplastin Time 38.1 sec (22.0-30.0); Prothrombin Time 17.6 sec (9.0-12.0)
--- NOTE | 2016-10-08 18:31 | XR ---
EXAMINATION TYPE: XR abdomen acute w cxr DATE OF EXAM: 10/08/2016 COMPARISON: 10/03/2016 HISTORY: Abdominal pain for one week TECHNIQUE: 3 views FINDINGS: Heart and mediastinum are within normal limits. Lungs are clear. There is left shoulder prosthesis. T here are clips from cholecystectomy. There is no sign of intestinal obstruction or pneumoperitoneum. There are multiple surgical clips in the left abdomen. There is no sign of a mass. There are no patho logic calcifications over the kidneys. IMPRESSION: No active cardiopulmonary disease. Nonacute abdomen. No change compared to old exam. Previous surgery noted. There is noted slight loss of height of L2 and L3 vertebral bodies that is similar to the lumbar spin e x-ray of 03/14/2016.
[2016-10-08 18:36] LABS: ALT 28 U/L (9-52); AST 42 U/L (14-36); Alkaline Phosphatase 67 U/L (38-126); Amylase <30 U/L (30-110); Anion Gap 10 mmol/L; Blood Urea Nitrogen 12 mg/dL (7-17); Carbon Dioxide 22 mmol/L (22-30); Chloride 101 mmol/L (98-107); Glucose 90 mg/dL (74-99); Non-African American GFR(MDRD) >60 (>60 ml/min/1.73 sqM); Potassium 4.2 mmol/L (3.5-5.1); Sodium 133 mmol/L (137-145); Total Bilirubin 0.6 mg/dL (0.2-1.3); Total Protein 6.5 g/dL (6.3-8.2)
[2016-10-08 19:21] LABS: Appearance,Urine Clear (Clear); Bilirubin,Urine Negative (Negative); Glucose,Urine (UA) Negative (Negative); Ketones,Urine Negative (Negative); Leukocyte Esterase,Urine Negative (Negative); Nitrite,Urine Negative (Negative); Protein,Urine Negative (Negative); Specific Gravity,Urine 1.006 (1.001-1.035); UA Billing (MACRO vs. MICRO) CHEM
[2016-10-08 19:28] VITALS: BP 140/76; PULSE 74; RESP 18; TEMP 97.6
== END 2016-10-08 19:49 | disposition home or self-care (01) ==
LOC: EC 17:03
DX: K29.70 Gastritis, unspecified, without bleeding (principal); R11.2 Nausea with vomiting, unspecified; I25.10 Atherosclerotic heart disease of native coronary artery without angina pectoris; K21.9 Gastro-esophageal reflux disease without esophagitis; I10 Essential (primary) hypertension; Z87.891 Personal history of nicotine dependence; Z79.899 Other long term (current) drug therapy; Z85.21 Personal history of malignant neoplasm of larynx; Z90.49 Acquired absence of other specified parts of digestive tract; Z95.5 Presence of coronary angioplasty implant and graft; Z98.84 Bariatric surgery status
CPT/HCPCS: 36415; 93005; 86900; 86901; 80053; 82150; 83605; 83690; 83735; 85025; 85610; 85730; 86850; 82272; 81003; 74022; 99284; 96374; 96375; 96361; J2405

== ENCOUNTER 2016-10-18 14:35 | Emergency (ER) | payer MEDICARE ==
[2016-10-18] MEDS ORDERED: SODIUM CHLORIDE 0.9% 1,000 ML IV STA (15:55)
[2016-10-18] MEDS ORDERED: HYDROmorphone 1 MG/ML 1 ML SYRINGE IVP STA (15:55)
[2016-10-18] MEDS ORDERED: ONDANSETRON 4 MG/2 ML VIAL IVP STA (15:55)
[2016-10-18 16:50] LABS: Appearance,Urine Clear (Clear); Bilirubin,Urine Negative (Negative); Glucose,Urine (UA) Negative (Negative); Ketones,Urine Negative (Negative); Leukocyte Esterase,Urine Negative (Negative); Nitrite,Urine Negative (Negative); PH, Urine 8.5 (5.0-8.0); Protein,Urine Negative (Negative); Specific Gravity,Urine 1.008 (1.001-1.035); UA Billing (MACRO vs. MICRO) CHEM; Urobilinogen,Urine <2.0 mg/dL (<2.0)
[2016-10-18 16:51] LABS: Anisocytosis Slight; Basophils # (A) 0.1 k/uL (0-0.2); Basophils % (A) 1 %; CH 28.8; Eosinophils # (A) 0.1 k/uL (0-0.7); Eosinophils % (A) 1 %; HCT 34.5 % (34.0-46.0); HDW 2.77; HGB 11.9 gm/dL (11.4-16.0); Luc # (Auto) 0.18; Luc % (Auto) 3; Lymphocytes % (A) 27 %; MCH 29.5 pg (25.0-35.0); MCHC 34.6 g/dL (31.0-37.0); MCV 85.2 fL (80.0-100.0); Mean Platelet Volume 6.9; Monocytes # (A) 0.4 k/uL (0-1.0); Monocytes % (A) 6 %; Neutrophils # (A) 4.5 k/uL (1.3-7.7); Neutrophils % (A) 63 %; RBC 4.05 m/uL (3.80-5.40); WBC 7.2 k/uL (3.8-10.6); WBC (Perox) 7.11
--- NOTE | 2016-10-18 16:58 | XR ---
EXAMINATION TYPE: XR KUB DATE OF EXAM: 10/18/2016 CLINICAL DATA: 70 year-old female with abdominal pain, [facility] COMPARISON: 10/08/2016 FINDINGS: Lung bases are clear. Cholecystectomy clips. Additional surgical material in the left abdomen. No evidence for free intraperitoneal air. No dilated small bowel or air-fluid levels. Scattered air and stool seen throughout the colon extendi ng distally into the rectum. No significant stool burden. Phlebolith within the right hemipelvis redemonstrated. Degenerated dextroconvex scoliosis. IMPRESSION: 1. No significant stool burden.No evidence of bowel obstruction or free intraperitoneal air. 2. Degenerative dextroscoliosis, cholecystectomy clips, and additional surgical material in the left abdomen stable.
[2016-10-18 17:00] LABS: INR 1.2 (<1.1); Partial Thromboplastin Time 26.5 sec (22.0-30.0)
[2016-10-18 17:02] LABS: ALT 30 U/L (9-52); AST 25 U/L (14-36); Alkaline Phosphatase 107 U/L (38-126); Amylase <30 U/L (30-110); Anion Gap 12 mmol/L; Blood Urea Nitrogen 8 mg/dL (7-17); Carbon Dioxide 20 mmol/L (22-30); Chloride 101 mmol/L (98-107); Glucose 90 mg/dL (74-99); Non-African American GFR(MDRD) >60 (>60 ml/min/1.73 sqM); Potassium 4.4 mmol/L (3.5-5.1); Sodium 133 mmol/L (137-145); Total Bilirubin 0.6 mg/dL (0.2-1.3)
[2016-10-18] MEDS ORDERED: RX INFO: IV CONTRAST WAS GIVEN 1 EACH MISC MISCELLANE PRN (17:33)
--- NOTE | 2016-10-18 18:01 | ED ---
Nausea/Vomiting/Diarrhea HPI - General Chief complaint: Nausea/Vomiting/Diarrhea Stated complaint: Vomiting Time Seen by Provider: 10/18/16 15:39 Source: patient, RN notes reviewed, old records reviewed Mode of arrival: wheelchair Limitations: no limitations - History of Present Illness Initial comments: 70-year-old female presents emergency Department chief complaint of nausea and vomiting and severe abdominal pain for the past 2-3 days. Patient reports that she has been discharged with a history of ulcer. She reports that she's been having very little food intake. She states that she did have a BM today was normal. Denies any dysuria or hematuria. Patient reports her pain is a 7 out of 10 and feels like a burning sensation mainly in the left upper quadrant and left lower quadrants.Patient denies any recent fever, chills, shortness of breath, chest pain, back pain, numbness or tingling, dysuria or hematuria, constipation or diarrhea, headaches or visual changes, or any other current symptoms - Related Data Home Medications Medication Instructions Recorded Confirmed Levothyroxine Sodium 100 mcg PO DAILY 09/11/16 10/18/16 Lisinopril [Zestril] 10 mg PO DAILY 09/11/16 10/18/16 Omeprazole 20 mg PO DAILY 09/11/16 10/18/16 Simvastatin [Zocor] 20 mg PO HS 10/03/16 10/18/16 Gabapentin [Neurontin] 100 mg PO TID 10/18/16 10/18/16 Previous Rx's Medication Instructions Recorded HYDROcodone/APAP 5-325MG [[place] 1 tab PO Q6HR PRN #15 tab 06/29/16 5-325] Ondansetron Odt [Zofran Odt] 4 mg PO Q8HR PRN #15 tab 10/08/16 Ondansetron Odt [Zofran Odt] 4 mg PO Q8HR PRN #15 tab 10/18/16 Allergies Allergy/AdvReac Type Severity Reaction Status Date / Time No Known Allergies Allergy Verified 10/18/16 16:11 Review of Systems ROS Statement: Those systems with pertinent positive or pertinent negative responses have been documented in the HPI. ROS Other: All systems not noted in ROS Statement are negative. Past Medical History Past Medical History: Coronary Artery Disease (CAD), Cancer, Chest Pain / Angina , CVA/TIA, Eye Disorder, GERD/Reflux, Hypertension, Renal Disease Additional Past Medical History / Comment(s): Peptic ulcer disease, coronary artery disease ,chronic back pain, osteoarthritis, laryngeal cancer with a previous radiation therapy, TIA back in 2013, chronic bronchitis, head injury back in 2012, cataracts bilateral, hypertension. History of Any Multi-Drug Resistant Organisms: None Reported Past Surgical History: Bariatric Surgery, Cholecystectomy, Heart Catheterization , Heart Catheterization With Stent, Hysterectomy, Joint Replacement, Orthopedic Surgery, Tonsillectomy Additional Past Surgical History / Comment(s): PCIs with stents (total of 4 stents), bilateral knee replacement, left shoulder rotator cuff surgery, gastric bypass, D&C, EGD/colonoscopy, laryngeal tumor removed. Past Anesthesia/Blood Transfusion Reactions: No Reported Reaction Date of Last Stent Placement:: 2012 Past Psychological History: Anxiety Smoking Status: Former smoker Past Alcohol Use History: None Reported Past Drug Use History: None Reported - Past Family History Mother Family Medical History: Congestive Heart Failure (CHF), Diabetes Mellitus, Hypertension Father Family Medical History: Myocardial Infarction (ND) Additional Family Medical History / Comment(s): Father of a ND at the age of 39yrs. General Exam - General Exam Comments Initial Comments: 70-year-old female. Patient appears in moderate discomfort. Limitations: no limitations General appearance: alert, in no apparent distress Head exam: Present: atraumatic, normocephalic, normal inspection Eye exam: Present: normal appearance, PERRL, EOMI. Absent: scleral icterus, conjunctival injection, periorbital swelling ENT exam: Present: normal exam, mucous membranes moist Neck exam: Present: normal inspection. Absent: tenderness, meningismus, lymphadenopathy Respiratory exam: Present: normal lung sounds bilaterally. Absent: respiratory distress, wheezes, rales, rhonchi, stridor Cardiovascular Exam: Present: regular rate, normal rhythm, normal heart sounds. Absent: systolic murmur, diastolic murmur, rubs, gallop, clicks GI/Abdominal exam: Present: soft, tenderness (Diffuse lower abdominal tenderness.), normal bowel sounds. Absent: distended, guarding, rebound, rigid Extremities exam: Present: normal inspection, full ROM, normal capillary refill. Absent: tenderness, pedal edema, joint swelling, calf tenderness Back exam: Present: normal inspection Neurological exam: Present: alert, oriented X3, CN II-XII intact Psychiatric exam: Present: normal affect, normal mood Skin exam: Present: warm, dry, intact, normal color. Absent: rash Course Vital Signs 10/18/16 10/18/16 10/18/16 14:53 17:41 19:10 Temperature 98.1 F Pulse Rate 88 64 74 Respiratory 20 22 18 Rate Blood Pressure 123/96 146/79 147/70 O2 Sat by Pulse 98 100 94 L Oximetry 10/18/16 19:40 Temperature 97.6 F Pulse Rate 74 Respiratory 20 Rate Blood Pressure 128/60 O2 Sat by Pulse 97 Oximetry Medical Decision Making - Medical Decision Making 70-year-old female presents emergency Department chief complaint of nausea and vomiting and severe abdominal pain for the past 2-3 days. Patient reports that she has been discharged with a history of ulcer. She reports that she's been having very little food intake. She states that she did have a BM today was normal. Denies any dysuria or hematuria. Patient reports her pain is a 7 out of 10 and feels like a burning sensation mainly in the left upper quadrant and left lower quadrants. [facility] lab work was reviewed and negative for any significant acute process. Previous anemia is resolving. Patient continues to complain of pain and is very tender. CT abdomen and pelvis was ordered. CT abdomen and pelvis is negative. Discussed case with Dr. Bird. Patient will be discharged with nausea medication, avised to continue protonix. Patient agrees to treatment plan and will comply. Return parameters discussed. - Lab Data Result diagrams: 10/18/16 16:40 10/18/16 16:40 Lab Results 10/18/16 10/18/16 10/18/16 Range/Units 16:15 16:40 16:40 WBC 7.2 (3.8-10.6) k/uL RBC 4.05 (3.80-5.40) m/uL Hgb 11.9 (11.4-16.0) gm/dL Hct 34.5 (34.0-46.0) % MCV 85.2 (80.0-100.0) fL MCH 29.5 (25.0-35.0) pg MCHC 34.6 (31.0-37.0) g/dL RDW 19.0 H (11.5-15.5) % Plt Count 458 H (150-450) k/uL Neutrophils % 63 % Lymphocytes % 27 % Monocytes % 6 % Eosinophils % 1 % Basophils % 1 % Neutrophils # 4.5 (1.3-7.7) k/uL Lymphocytes # 2.0 (1.0-4.8) k/uL Monocytes # 0.4 (0-1.0) k/uL Eosinophils # 0.1 (0-0.7) k/uL Basophils # 0.1 (0-0.2) k/uL Anisocytosis Slight PT (9.0-12.0) sec INR (<1.1) APTT (22.0-30.0) sec Sodium 133 L (137-145) mmol/L Potassium 4.4 (3.5-5.1) mmol/L Chloride 101 (98-107) mmol/L Carbon Dioxide 20 L (22-30) mmol/L Anion Gap 12 mmol/L BUN 8 (7-17) mg/dL Creatinine 0.90 (0.52-1.04) mg/dL Est GFR (MDRD) Af Amer >60 (>60 ml/min/1.73 sqM) Est GFR (MDRD) Non-Af >60 (>60 ml/min/1.73 sqM) Glucose 90 (74-99) mg/dL Plasma Lactic Acid Anthony (0.7-2.0) mmol/L Calcium 9.0 (8.4-10.2) mg/dL Total Bilirubin 0.6 (0.2-1.3) mg/dL AST 25 (14-36) U/L ALT 30 (9-52) U/L Alkaline Phosphatase 107 (38-126) U/L Total Protein 7.0 (6.3-8.2) g/dL Albumin 4.2 (3.5-5.0) g/dL Amylase <30 L (30-110) U/L Lipase 143 (23-300) U/L Urine Color Light Yellow Urine Appearance Clear (Clear) Urine pH 8.5 H (5.0-8.0) Ur Specific [place] 1.008 (1.001-1.035) Urine Protein Negative (Negative) Urine Glucose (UA) Negative (Negative) Urine Ketones Negative (Negative) Urine Blood Negative (Negative) Urine Nitrite Negative (Negative) Urine Bilirubin Negative (Negative) Urine Urobilinogen <2.0 (<2.0) mg/dL Ur Leukocyte Esterase Negative (Negative) 10/18/16 10/18/16 Range/Units 16:40 16:40 WBC (3.8-10.6) k/uL RBC (3.80-5.40) m/uL Hgb (11.4-16.0) gm/dL Hct (34.0-46.0) % MCV (80.0-100.0) fL MCH (25.0-35.0) pg MCHC (31.0-37.0) g/dL RDW (11.5-15.5) % Plt Count (150-450) k/uL Neutrophils % % Lymphocytes % % Monocytes % % Eosinophils % % Basophils % % Neutrophils # (1.3-7.7) k/uL Lymphocytes # (1.0-4.8) k/uL Monocytes # (0-1.0) k/uL Eosinophils # (0-0.7) k/uL Basophils # (0-0.2) k/uL Anisocytosis PT 12.0 (9.0-12.0) sec INR 1.2 (<1.1) APTT 26.5 (22.0-30.0) sec Sodium (137-145) mmol/L Potassium (3.5-5.1) mmol/L Chloride (98-107) mmol/L Carbon Dioxide (22-30) mmol/L Anion Gap mmol/L BUN (7-17) mg/dL Creatinine (0.52-1.04) mg/dL Est GFR (MDRD) Af Amer (>60 ml/min/1.73 sqM) Est GFR (MDRD) Non-Af (>60 ml/min/1.73 sqM) Glucose (74-99) mg/dL Plasma Lactic Acid Anthony 1.4 (0.7-2.0) mmol/L Calcium (8.4-10.2) mg/dL Total Bilirubin (0.2-1.3) mg/dL AST (14-36) U/L ALT (9-52) U/L Alkaline Phosphatase (38-126) U/L Total Protein (6.3-8.2) g/dL Albumin (3.5-5.0) g/dL Amylase (30-110) U/L Lipase (23-300) U/L Urine Color Urine Appearance (Clear) Urine pH (5.0-8.0) Ur Specific [place] (1.001-1.035) Urine Protein (Negative) Urine Glucose (UA) (Negative) Urine Ketones (Negative) Urine Blood (Negative) Urine Nitrite (Negative) Urine Bilirubin (Negative) Urine Urobilinogen (<2.0) mg/dL Ur Leukocyte Esterase (Negative) - Radiology Data Radiology results: report reviewed CT abdomen and pelvis is negative. Disposition Clinical Impression: Nausea & vomiting Disposition: HOME SELF-CARE Instructions: Acute Nausea and Vomiting in Children (ED) Additional Instructions: Patient denies to continue to take Prilosec and prescribed medications. His nausea medication as directed. Recommending a clear liquid diet for the next 24 hours. Follow-up with your primary care provider and GI specialist. Prescriptions: Ondansetron Odt [Zofran Odt] 4 mg PO Q8HR PRN #15 tab PRN Reason: Nausea Referrals: Xin Hernández MD [Primary Care Provider] - 1-2 days Mykel Reyna MD [STAFF PHYSICIAN] - 1-2 days Time of Disposition: 19:15
--- NOTE | 2016-10-18 18:56 | CT ---
EXAMINATION TYPE: CT abdomen pelvis w con DATE OF EXAM: 10/18/2016 COMPARISON: NONE HISTORY: ABDOMINAL PAIN WITH VOMITING AND DIARRHEA X2 DAYS. CT DLP: 1415.6 mGycm Automated exposure control for dose reduction was used. TECHNIQUE: Helical acquisition of images was performed from the lung bases through the pelvis. CONTRAST: Performed without Oral Contrast and with IV Contrast, patient injected with 100 mL of Omnipaque 300. FINDINGS: LUNG BASES: Small pericardial effusion is redemonstrated, similar to the prior study. Also redemonstr ated are prominent coronary calcifications. LIVER/GB: No significant abnormality is appreciated. PANCREAS: No significant abnormality is seen. SPLEEN: No significant abnormality is seen. ADRENALS: No significant abnormality is seen. KIDNEYS: No significant abnormality is seen. FREE AIR: No free air is visualized. RETROPERITONEAL ADENOPATHY: None visualized REPRODUCTIVE ORGANS: No significant abnormality is seen URINARY BLADDER: No significant abnormality is seen. PELVIC ADENOPATHY: None visualized. OSSEOUS STRUCTURES: No significant abnormality is seen. BOWEL: No significant abnormality is seen. OTHER: Vasculature is unremarkable. IMPRESSION: NO ACUTE PROCESS, CT ABDOMEN AND PELVIS WITH CONTRAST.
[2016-10-18 19:15] VITALS: PULSE 74
[2016-10-18 19:44] VITALS: BP 128/60; RESP 20; TEMP 97.6
== END 2016-10-18 19:45 | disposition home or self-care (01) ==
LOC: EC 14:35
DX: R11.2 Nausea with vomiting, unspecified (principal); R10.32 Left lower quadrant pain; R10.12 Left upper quadrant pain; I25.10 Atherosclerotic heart disease of native coronary artery without angina pectoris; I10 Essential (primary) hypertension; K21.9 Gastro-esophageal reflux disease without esophagitis; Z90.49 Acquired absence of other specified parts of digestive tract; Z85.21 Personal history of malignant neoplasm of larynx; Z87.891 Personal history of nicotine dependence; Z79.899 Other long term (current) drug therapy
CPT/HCPCS: 99284; 96374; 96375; 96361; 36415; 80053; 82150; 83605; 83690; 85025; 85610; 85730; 81003; 74000; 74177; J2405; J1170; Q9967

== ENCOUNTER 2016-11-16 11:11 | Emergency (ER) | payer MEDICARE ==
[2016-11-16] MEDS ORDERED: MORPHINE SULFATE 4 MG/ML SYRINGE IV ONE (12:32)
[2016-11-16 13:20] LABS: Anisocytosis Slight; Basophils # (A) 0.1 k/uL (0-0.2); Basophils % (A) 1 %; CH 31.1; Eosinophils # (A) 0.2 k/uL (0-0.7); Eosinophils % (A) 3 %; HCT 34.6 % (34.0-46.0); HDW 2.69; HGB 11.3 gm/dL (11.4-16.0); Luc # (Auto) 0.21; Luc % (Auto) 3; Lymphocytes # (A) 2.2 k/uL (1.0-4.8); Lymphocytes % (A) 32 %; MCHC 32.7 g/dL (31.0-37.0); Mean Platelet Volume 7.4; Monocytes # (A) 0.6 k/uL (0-1.0); Monocytes % (A) 8 %; Neutrophils # (A) 3.6 k/uL (1.3-7.7); Neutrophils % (A) 52 %; RBC 3.77 m/uL (3.80-5.40); RDW 18.7 % (11.5-15.5); WBC 6.8 k/uL (3.8-10.6); WBC (Perox) 6.94
[2016-11-16 13:30] LABS: Anion Gap 12 mmol/L; Blood Urea Nitrogen 15 mg/dL (7-17); Calcium 9.3 mg/dL (8.4-10.2); Carbon Dioxide 24 mmol/L (22-30); Chloride 95 mmol/L (98-107); Glucose 88 mg/dL (74-99); Non-African American GFR(MDRD) >60 (>60 ml/min/1.73 sqM); Potassium 4.7 mmol/L (3.5-5.1); Sodium 131 mmol/L (137-145)
[2016-11-16 13:31] LABS: MCV 91.8 fL (80.0-100.0)
[2016-11-16 13:32] LABS: Appearance,Urine Clear (Clear); Bilirubin,Urine Negative (Negative); Glucose,Urine (UA) Negative (Negative); Ketones,Urine Negative (Negative); Leukocyte Esterase,Urine Trace (Negative); Mucus,Urine Rare /hpf; Nitrite,Urine Negative (Negative); Particle Count 2678; Protein,Urine Negative (Negative); Specific Gravity,Urine 1.009 (1.001-1.035); Squamous Epithelial Cell,Urine 1 /hpf (0-4); UA Billing (MACRO vs. MICRO) MICRO; Urobilinogen,Urine <2.0 mg/dL (<2.0); WBC,Urine 2 /hpf (0-5)
--- NOTE | 2016-11-16 14:32 | ED ---
Back Pain HPI - General Chief Complaint: Back Pain/Injury Stated Complaint: lower back pain Time Seen by Provider: 11/16/16 11:57 Source: patient Limitations: physical limitation - History of Present Illness Initial Comments: Patient is a 71-year-old female with complicated past medical history who presents to the ED today for evaluation of worsening chronic low back pain. Patient states that she is recently admitted to the hospital and was treated for low back pain while admitted but was discharged home with no pain medications. Patient states that over the past few days her pain has progressively worsened and got into point now that it is unbearable. Patient denies any new injuries or traumas. Patient states that the pain is in her lower back, with radiation to her left hip. Patient denies any change in bowel or bladder habits specifically any urinary retention or urinary incontinence or constipation. Patient states that she has done physical therapy for her back pain in the past with mild improvement however she has not done physical therapy and some time and feels her back pain is progressively worsening. Patient reports that after her previous hospitalization she was discharged home on an antibiotic. She is unsure what the antibiotic is for. She reports she doesn't know why she wasn't discharged home with any pain medications. Patient states she hasn't seen her primary care physician for this problem. Patient denies any additional complaints including fevers, chills, nausea, vomiting, abdominal pain, change in bowel or bladder habits. She denies any chest pain or trouble breathing. MD Complaint: back pain -: week(s) - Related Data Home Medications Medication Instructions Recorded Confirmed Lisinopril [Zestril] 10 mg PO DAILY 09/11/16 11/16/16 Previous Rx's Medication Instructions Recorded traMADol HCl [Ultram] 50 mg PO Q6H PRN #12 tab 11/16/16 Allergies Allergy/AdvReac Type Severity Reaction Status Date / Time No Known Allergies Allergy Verified 11/16/16 12:15 Review of Systems ROS Statement: Those systems with pertinent positive or pertinent negative responses have been documented in the HPI. ROS Other: All systems not noted in ROS Statement are negative. Constitutional: Denies: fever, chills Eyes: Denies: vision change ENT: Denies: throat pain Respiratory: Denies: cough, dyspnea, wheezes Cardiovascular: Denies: chest pain, palpitations Endocrine: Denies: fatigue Gastrointestinal: Denies: abdominal pain, nausea, vomiting Genitourinary: Denies: urgency, dysuria, frequency Musculoskeletal: Reports: back pain, arthralgia. Denies: myalgia Skin: Denies: rash, lesions, change in color Neurological: Denies: headache, weakness, numbness, confusion Psychiatric: Denies: anxiety, depression Hematological/Lymphatic: Denies: easy bleeding, easy bruising Past Medical History Past Medical History: Coronary Artery Disease (CAD), Cancer, Chest Pain / Angina , CVA/TIA, Eye Disorder, GERD/Reflux, Hypertension, Renal Disease Additional Past Medical History / Comment(s): Peptic ulcer disease, coronary artery disease ,chronic back pain, osteoarthritis, laryngeal cancer with a previous radiation therapy, TIA back in 2013, chronic bronchitis, head injury back in 2012, cataracts bilateral, hypertension. History of Any Multi-Drug Resistant Organisms: None Reported Past Surgical History: Bariatric Surgery, Cholecystectomy, Heart Catheterization , Heart Catheterization With Stent, Hysterectomy, Joint Replacement, Orthopedic Surgery, Tonsillectomy Additional Past Surgical History / Comment(s): PCIs with stents (total of 4 stents), bilateral knee replacement, left shoulder rotator cuff surgery, gastric bypass, D&C, EGD/colonoscopy, laryngeal tumor removed. Past Anesthesia/Blood Transfusion Reactions: No Reported Reaction Date of Last Stent Placement:: 2012 Past Psychological History: Anxiety Smoking Status: Former smoker - Past Family History Mother Family Medical History: Cancer, Congestive Heart Failure (CHF), Diabetes Mellitus, Hypertension Father Family Medical History: Myocardial Infarction ([place]) Additional Family Medical History / Comment(s): Father of a [place] at the age of 39yrs. Sister(s) Family Medical History: Cancer General Exam Limitations: physical limitation General appearance: alert, other (Yelling out in pain) Head exam: Present: atraumatic, normocephalic, normal inspection Eye exam: Present: normal appearance, PERRL, EOMI, other (Pupils pinpoint consistent with being given narcotics in route to the hospital). Absent: scleral icterus, conjunctival injection, periorbital swelling ENT exam: Present: mucous membranes moist Neck exam: Present: normal inspection Respiratory exam: Present: normal lung sounds bilaterally. Absent: respiratory distress, wheezes, rales, rhonchi, stridor Cardiovascular Exam: Present: regular rate, normal rhythm, normal heart sounds. Absent: systolic murmur, diastolic murmur, rubs, gallop, clicks GI/Abdominal exam: Present: soft, normal bowel sounds. Absent: distended, tenderness, guarding, rebound, rigid Rectal exam: Present: deferred Extremities exam: Present: normal inspection, full ROM. Absent: tenderness Back exam: Present: normal inspection, paraspinal tenderness. Absent: CVA tenderness (R), CVA tenderness (L) Neurological exam: Present: alert, oriented X3, CN II-XII intact, normal gait Psychiatric exam: Present: agitated, anxious Skin exam: Present: warm, dry, intact, normal color. Absent: rash Course Vital Signs 11/16/16 11/16/16 11/16/16 11:17 13:21 16:16 Temperature 97.6 F 97.5 F L 97.5 F L Pulse Rate 75 73 65 Respiratory 18 18 18 Rate Blood Pressure 190/90 152/97 149/70 O2 Sat by Pulse 100 99 97 Oximetry 11/16/16 16:44 Temperature 97.3 F L Pulse Rate 65 Respiratory 14 Rate Blood Pressure 148/68 O2 Sat by Pulse 97 Oximetry Medical Decision Making - Medical Decision Making Patient was seen and evaluated, history is obtained from the patient and review of medical records Patient with a complicated medical history recently admitted for GI bleed requiring transfusion Patient presents with low back pain which she describes as an exacerbation of her chronic low back pain - no new neurologic symptoms or any red flags Review of previous medical records feels the patient has been on narcotic pain medications as well as benzodiazepines in the past Patient states she is currently only taking antibiotics denies taking any narcotic pain medication at home Labs ordered and analgesia ordered Labs unremarkable Urinalysis without evidence of urinary tract infection Patient states she doesn't feel like she can go home like this. She reports her pain is too severe I advised patient that I am not sure that she will have any admission criteria but I will discuss it with the admitting team, in the meantime x-ray of the lumbar spine was ordered X-ray revealed no acute findings, chronic degenerative changes and scoliosis Results were discussed with patient, patient states she would like to go home with a pain medication, she now feels she can manage her pain at home - Lab Data Result diagrams: 11/16/16 13:05 11/16/16 13:05 Lab Results 11/16/16 11/16/16 11/16/16 Range/Units 13:05 13:05 13:05 WBC 6.8 (3.8-10.6) k/uL RBC 3.77 L (3.80-5.40) m/uL Hgb 11.3 L (11.4-16.0) gm/dL Hct 34.6 (34.0-46.0) % MCV 91.8 D (80.0-100.0) fL MCH 30.0 (25.0-35.0) pg MCHC 32.7 (31.0-37.0) g/dL RDW 18.7 H (11.5-15.5) % Plt Count 342 (150-450) k/uL Neutrophils % 52 % Lymphocytes % 32 % Monocytes % 8 % Eosinophils % 3 % Basophils % 1 % Neutrophils # 3.6 (1.3-7.7) k/uL Lymphocytes # 2.2 (1.0-4.8) k/uL Monocytes # 0.6 (0-1.0) k/uL Eosinophils # 0.2 (0-0.7) k/uL Basophils # 0.1 (0-0.2) k/uL Anisocytosis Slight Sodium 131 L (137-145) mmol/L Potassium 4.7 (3.5-5.1) mmol/L Chloride 95 L (98-107) mmol/L Carbon Dioxide 24 (22-30) mmol/L Anion Gap 12 mmol/L BUN 15 (7-17) mg/dL Creatinine 0.79 (0.52-1.04) mg/dL Est GFR (MDRD) Af Amer >60 (>60 ml/min/1.73 sqM) Est GFR (MDRD) Non-Af >60 (>60 ml/min/1.73 sqM) Glucose 88 (74-99) mg/dL Calcium 9.3 (8.4-10.2) mg/dL Urine Color Yellow Urine Appearance Clear (Clear) Urine pH 8.0 (5.0-8.0) Ur Specific [place] 1.009 (1.001-1.035) Urine Protein Negative (Negative) Urine Glucose (UA) Negative (Negative) Urine Ketones Negative (Negative) Urine Blood Negative (Negative) Urine Nitrite Negative (Negative) Urine Bilirubin Negative (Negative) Urine Urobilinogen <2.0 (<2.0) mg/dL Ur Leukocyte Esterase Trace H (Negative) Urine WBC 2 (0-5) /hpf Ur Squamous Epith Cells 1 (0-4) /hpf Urine Mucus Rare H (None) /hpf Disposition Clinical Impression: Chronic back pain, Scoliosis Disposition: HOME SELF-CARE Condition: Good Instructions: Chronic Back Pain (ED) Prescriptions: traMADol HCl [Ultram] 50 mg PO Q6H PRN #12 tab PRN Reason: Pain Referrals: Xin Hernández MD [Primary Care Provider] - 1-2 days
--- NOTE | 2016-11-16 15:48 | XR ---
EXAMINATION TYPE: XR lumbar spine 2 or 3V DATE OF EXAM: 11/16/2016 CLINICAL HISTORY: Chronic back pain. TECHNIQUE: Frontal and lateral images of the lumbar spine are obtained. COMPARISON: Lumbar spine x-ray March 14, 2016. CT lumbar spine September 11, 2016. FINDINGS: There are 5 lumbar type vertebral bodies identified. Osseous structures remain demineraliz ed. There is persistent levoconvex scoliosis centered in the mid to lower lumbar spine. Grade 1 retro listhesis of L2 on L3 is present seen better on recent CT. There is moderate to advanced disc space n arrowing with sclerosis centered at left L2-L3 level redemonstrated. There is moderate disc space froylan rowing with moderate spurring at right L4-L5 level. Grade 1 anterolisthesis of L4 on L5 redemonstrate d. Vascular calcification of overlying abdominal aorta is seen. Cholecystectomy clips are present. Mejia rgical sutures epigastric region gastric bypass surgery are again seen. IMPRESSION: Demineralization, scoliosis, and multilevel degenerative changes as detailed above redemo nstrated not significantly changed from recent CT.
[2016-11-16 16:17] VITALS: PULSE 65
[2016-11-16 16:45] VITALS: BP 148/68; RESP 14; TEMP 97.3
== END 2016-11-16 16:57 | disposition home or self-care (01) ==
LOC: EC 11:11
DX: M54.5 Low back pain (principal); G89.29 Other chronic pain; M41.9 Scoliosis, unspecified; I10 Essential (primary) hypertension; Z87.891 Personal history of nicotine dependence; Z86.73 Personal history of transient ischemic attack (TIA), and cerebral infarction without residual deficits; Z85.9 Personal history of malignant neoplasm, unspecified; Z96.653 Presence of artificial knee joint, bilateral; Z79.899 Other long term (current) drug therapy
CPT/HCPCS: 36415; 80048; 85025; 81001; 72100; 99283; 96374; J2270

== ENCOUNTER 2016-11-24 23:23 | Emergency (ER) | payer MEDICARE ==
[2016-11-24] MEDS ORDERED: MORPHINE SULFATE 4 MG/ML SYRINGE IV STA (23:32)
[2016-11-24] MEDS ORDERED: SODIUM CHLORIDE 0.9% 500 ML IV STA (23:32)
[2016-11-24] MEDS ORDERED: ONDANSETRON 4 MG/2 ML VIAL IVP STA (23:32)
[2016-11-24 23:40] LABS: Anisocytosis Slight; Basophils # (A) 0.1 k/uL (0-0.2); Basophils % (A) 1 %; CH 31.1; CHCM 34.2; Eosinophils # (A) 0.5 k/uL (0-0.7); Eosinophils % (A) 6 %; HCT 34.8 % (34.0-46.0); HDW 2.71; HGB 11.5 gm/dL (11.4-16.0); Luc # (Auto) 0.22; Luc % (Auto) 3; Lymphocytes # (A) 2.8 k/uL (1.0-4.8); Lymphocytes % (A) 33 %; MCH 30.1 pg (25.0-35.0); MCHC 32.9 g/dL (31.0-37.0); MCV 91.4 fL (80.0-100.0); Mean Platelet Volume 7.4; Monocytes # (A) 0.6 k/uL (0-1.0); Monocytes % (A) 7 %; Neutrophils # (A) 4.5 k/uL (1.3-7.7); Neutrophils % (A) 52 %; RBC 3.81 m/uL (3.80-5.40); RDW 18.1 % (11.5-15.5); WBC 8.5 k/uL (3.8-10.6); WBC (Perox) 8.53
[2016-11-24 23:46] LABS: Appearance,Urine Clear (Clear); Bilirubin,Urine Negative (Negative); Glucose,Urine (UA) Negative (Negative); Ketones,Urine Negative (Negative); Leukocyte Esterase,Urine Negative (Negative); Nitrite,Urine Negative (Negative); PH, Urine 7.5 (5.0-8.0); Protein,Urine Negative (Negative); Specific Gravity,Urine 1.005 (1.001-1.035); UA Billing (MACRO vs. MICRO) CHEM; Urobilinogen,Urine <2.0 mg/dL (<2.0)
[2016-11-24 23:50] LABS: ALT 23 U/L (9-52); AST 26 U/L (14-36); Alkaline Phosphatase 64 U/L (38-126); Amylase 30 U/L (30-110); Anion Gap 12 mmol/L; Blood Urea Nitrogen 20 mg/dL (7-17); Calcium 9.1 mg/dL (8.4-10.2); Carbon Dioxide 18 mmol/L (22-30); Chloride 102 mmol/L (98-107); Glucose 83 mg/dL (74-99); INR 1.3 (<1.2); Non-African American GFR(MDRD) >60 (>60 ml/min/1.73 sqM); Partial Thromboplastin Time 26.9 sec (22.0-30.0); Potassium 4.5 mmol/L (3.5-5.1); Prothrombin Time 12.4 sec (9.0-12.0); Sodium 132 mmol/L (137-145); Total Bilirubin 0.6 mg/dL (0.2-1.3); Total Protein 6.7 g/dL (6.3-8.2)
[2016-11-25 00:13] LABS: Creatine Kinase MB 0.8 ng/mL (0.0-2.4); Troponin I 0.021 ng/mL (0.000-0.034)
--- NOTE | 2016-11-25 00:24 | XR ---
EXAM: XR KUB, 1 View CLINICAL HISTORY: Reason: abdominal pain TECHNIQUE: Frontal supine view of the abdomen/pelvis. COMPARISON: 10/18/16 FINDINGS: Gastrointestinal tract: Unremarkable. No dilation. Organs: Cholecystectomy clips noted. Bones/joints: Rightward curvature of the lumbar spine. Other findings: Left upper quadrant surgical sutures are seen. IMPRESSION: No acute findings.
[2016-11-25] MEDS ORDERED: IOHEXOL 350 MG/ML 25 ML BOTTLE (ORAL USE) PO PRN (00:55)
[2016-11-25] MEDS ORDERED: RX INFO: IV CONTRAST WAS GIVEN 1 EACH MISC MISCELLANE PRN (00:55)
[2016-11-25] MEDS ORDERED: MORPHINE SULFATE 4 MG/ML SYRINGE IVP STA (00:56)
[2016-11-25 01:55] VITALS: RESP 18
--- NOTE | 2016-11-25 02:12 | CT ---
EXAM: CT Abdomen and Pelvis With Intravenous Contrast CLINICAL HISTORY: Reason: Pain TECHNIQUE: Axial computed tomography images of the abdomen and pelvis with intravenous contrast. DLP is 1815.40 mGy-cm. 100 mL of Omnipaque 300 was administered [address]. This CT exam was performed using one or more of the following dose reduction techniques: automated exposure control, adjustment of the mA and/or kV according to patient size, and/or use of iterative reconstruction technique. COMPARISON: 10/18/16 FINDINGS: Lower thorax: No acute findings. ABDOMEN: Liver: Unremarkable. No mass. Gallbladder and bile ducts: Cholecystectomy clips noted. Prominent common bile duct measuring 1.1 cm in diameter, likely relating to cholecystectomy. Pancreas: Unremarkable. No mass. No ductal dilation. Spleen: Unremarkable. No splenomegaly. Adrenals: Unremarkable. No mass. Kidneys and ureters: Unremarkable. No solid mass. No hydronephrosis. Stomach and bowel: Air-fluid level noted in the cecum. Sigmoid diverticulosis noted. No obstruction. No mucosal thickening. Appendix: No findings to suggest acute appendicitis. PELVIS: Bladder: Unremarkable. No mass. Reproductive: Unremarkable as visualized. ABDOMEN and PELVIS: Intraperitoneal space: Unremarkable. No free air. No significant fluid collection. Bones/joints: No acute fracture. No dislocation. Soft tissues: Unremarkable. Vasculature: Unremarkable. No abdominal aortic aneurysm. Lymph nodes: Unremarkable. No enlarged lymph nodes. IMPRESSION: 1. No acute process. 2. Sigmoid diverticulosis.
--- NOTE | 2016-11-25 03:50 | ED ---
General Adult HPI - General Chief complaint: Abdominal Pain Stated complaint: Abdominal Pain Time Seen by Provider: 11/24/16 23:29 Source: patient, EMS, RN notes reviewed, old records reviewed Mode of arrival: EMS Limitations: no limitations - History of Present Illness Initial comments: 71-year-old female with history of chronic abdominal pain presents with a 2 day history of nausea vomiting and epigastric abdominal pain. Patient describes the pain as severe does travel to her back. Patient has been constant. Patient normally takes [place] for this, however she has been ill for the past several weeks. She does have history of cholecystectomy in December 2015 and a remote history of gastric bypass. Patient states her last bowel movement was yesterday was normal. No blood. No diarrhea. She did have 3 episodes of vomiting, there is no blood in this either. No chest pain or shortness of breath. No fever. No dysuria. - Related Data Home Medications Medication Instructions Recorded Confirmed Lisinopril [Zestril] 10 mg PO DAILY 09/11/16 11/24/16 Previous Rx's Medication Instructions Recorded traMADol HCl [Ultram] 50 mg PO Q6H PRN #12 tab 11/16/16 HYDROcodone/APAP 5-325MG [[place] 1 tab PO Q6HR PRN #12 tab 11/25/16 5-325] Allergies Allergy/AdvReac Type Severity Reaction Status Date / Time No Known Allergies Allergy Verified 11/24/16 23:30 Review of Systems ROS Statement: Those systems with pertinent positive or pertinent negative responses have been documented in the HPI. ROS Other: All systems not noted in ROS Statement are negative. Past Medical History Past Medical History: Coronary Artery Disease (CAD), Cancer, Chest Pain / Angina , CVA/TIA, Eye Disorder, GERD/Reflux, Hypertension, Renal Disease Additional Past Medical History / Comment(s): Peptic ulcer disease, coronary artery disease ,chronic back pain, osteoarthritis, laryngeal cancer with a previous radiation therapy, TIA back in 2013, chronic bronchitis, head injury back in 2012, cataracts bilateral, hypertension. History of Any Multi-Drug Resistant Organisms: None Reported Past Surgical History: Bariatric Surgery, Cholecystectomy, Heart Catheterization , Heart Catheterization With Stent, Hysterectomy, Joint Replacement, Orthopedic Surgery, Tonsillectomy Additional Past Surgical History / Comment(s): PCIs with stents (total of 4 stents), bilateral knee replacement, left shoulder rotator cuff surgery, gastric bypass, D&C, EGD/colonoscopy, laryngeal tumor removed. Past Anesthesia/Blood Transfusion Reactions: No Reported Reaction Date of Last Stent Placement:: 2012 Past Psychological History: Anxiety Smoking Status: Former smoker - Past Family History Mother Family Medical History: Cancer, Congestive Heart Failure (CHF), Diabetes Mellitus, Hypertension Father Family Medical History: Myocardial Infarction (MS) Additional Family Medical History / Comment(s): Father of a [place] at the age of 39yrs. Sister(s) Family Medical History: Cancer General Exam Limitations: no limitations General appearance: alert, in no apparent distress Head exam: Present: atraumatic, normocephalic Eye exam: Present: normal appearance, PERRL ENT exam: Present: normal exam, mucous membranes moist Neck exam: Present: normal inspection. Absent: tenderness, meningismus Respiratory exam: Present: normal lung sounds bilaterally. Absent: respiratory distress, wheezes Cardiovascular Exam: Present: regular rate, normal rhythm GI/Abdominal exam: Present: soft, tenderness (Tenderness to palpation in the epigastrium), normal bowel sounds. Absent: distended, guarding, rebound Extremities exam: Present: normal inspection, normal capillary refill. Absent: pedal edema Back exam: Present: normal inspection. Absent: CVA tenderness (R), CVA tenderness (L) Neurological exam: Present: alert, oriented X3, CN II-XII intact. Absent: motor sensory deficit Psychiatric exam: Present: normal affect, normal mood Skin exam: Present: warm, dry. Absent: cyanosis, diaphoretic Course Vital Signs 11/24/16 11/25/16 11/25/16 23:24 00:49 01:00 Temperature 97.7 F 97.2 F L Pulse Rate 72 88 89 Respiratory 18 18 20 Rate Blood Pressure 170/80 139/64 138/72 O2 Sat by Pulse 98 97 97 Oximetry 11/25/16 01:54 Temperature 97 F L Pulse Rate 87 Respiratory 18 Rate Blood Pressure 145/84 O2 Sat by Pulse 97 Oximetry - Reevaluation(s) Reevaluation #1: 11/25/16 03:47 Reevaluation, patient's pain is significantly improved. She's had a normal bowel movement in the emergency department. There is no nausea or vomiting. EKG Findings - EKG Comments: EKG Findings:: EKG shows normal sinus rhythm, ventricular rate of 66, MO interval 202, QRS duration 88, QTC 473, no signs of ischemia. Medical Decision Making - Medical Decision Making 71-year-old female with history of chronic abdominal pain presents with 2 days of nausea and vomiting as well as worsening pain. Patient does normally take [place]. She is tender on examination. Vital signs are stable. X-ray shows no acute process per CT is obtained given the tenderness and history of gastric bypass. This is negative for any acute process. Laboratory studies including CBC, CMP, cardiac enzymes and urinalysis are unremarkable. Hemoglobin is 11.5 which is stable, white blood cell count is normal at 8.5. Reevaluation patient is feeling better. She does have close outpatient follow-up. She will be discharged home and is instructed to follow-up with her primary care physician per she'll given a short course of [place] for her pain. Diagnosis: Abdominal pain NOS - Lab Data Result diagrams: 11/24/16 23:30 11/24/16 23:30 Lab Results 11/24/16 11/24/16 11/24/16 Range/Units 23:30 23:30 23:30 WBC 8.5 (3.8-10.6) k/uL RBC 3.81 (3.80-5.40) m/uL Hgb 11.5 (11.4-16.0) gm/dL Hct 34.8 (34.0-46.0) % MCV 91.4 (80.0-100.0) fL MCH 30.1 (25.0-35.0) pg MCHC 32.9 (31.0-37.0) g/dL RDW 18.1 H (11.5-15.5) % Plt Count 322 (150-450) k/uL Neutrophils % 52 % Lymphocytes % 33 % Monocytes % 7 % Eosinophils % 6 % Basophils % 1 % Neutrophils # 4.5 (1.3-7.7) k/uL Lymphocytes # 2.8 (1.0-4.8) k/uL Monocytes # 0.6 (0-1.0) k/uL Eosinophils # 0.5 (0-0.7) k/uL Basophils # 0.1 (0-0.2) k/uL Anisocytosis Slight PT (9.0-12.0) sec INR (<1.2) APTT (22.0-30.0) sec Sodium 132 L (137-145) mmol/L Potassium 4.5 (3.5-5.1) mmol/L Chloride 102 (98-107) mmol/L Carbon Dioxide 18 L (22-30) mmol/L Anion Gap 12 mmol/L BUN 20 H (7-17) mg/dL Creatinine 0.90 (0.52-1.04) mg/dL Est GFR (MDRD) Af Amer >60 (>60 ml/min/1.73 sqM) Est GFR (MDRD) Non-Af >60 (>60 ml/min/1.73 sqM) Glucose 83 (74-99) mg/dL Plasma Lactic Acid [place] (0.7-2.0) mmol/L Calcium 9.1 (8.4-10.2) mg/dL Total Bilirubin 0.6 (0.2-1.3) mg/dL AST 26 (14-36) U/L ALT 23 (9-52) U/L Alkaline Phosphatase 64 (38-126) U/L Total Creatine Kinase 160 H (30-135) U/L CK-MB (CK-2) 0.8 (0.0-2.4) ng/mL CK-MB (CK-2) Rel Index 0.5 Troponin I 0.021 (0.000-0.034) ng/mL Total Protein 6.7 (6.3-8.2) g/dL Albumin 3.9 (3.5-5.0) g/dL Amylase 30 (30-110) U/L Lipase 141 (23-300) U/L Urine Color Urine Appearance (Clear) Urine pH (5.0-8.0) Ur Specific [place] (1.001-1.035) Urine Protein (Negative) Urine Glucose (UA) (Negative) Urine Ketones (Negative) Urine Blood (Negative) Urine Nitrite (Negative) Urine Bilirubin (Negative) Urine Urobilinogen (<2.0) mg/dL Ur Leukocyte Esterase (Negative) Blood Type Blood Type Recheck Antibody Screen Spec Expiration Date 11/24/16 11/24/16 11/24/16 Range/Units 23:30 23:30 23:48 WBC (3.8-10.6) k/uL RBC (3.80-5.40) m/uL Hgb (11.4-16.0) gm/dL Hct (34.0-46.0) % MCV (80.0-100.0) fL MCH (25.0-35.0) pg MCHC (31.0-37.0) g/dL RDW (11.5-15.5) % Plt Count (150-450) k/uL Neutrophils % % Lymphocytes % % Monocytes % % Eosinophils % % Basophils % % Neutrophils # (1.3-7.7) k/uL Lymphocytes # (1.0-4.8) k/uL Monocytes # (0-1.0) k/uL Eosinophils # (0-0.7) k/uL Basophils # (0-0.2) k/uL Anisocytosis PT 12.4 H (9.0-12.0) sec INR 1.3 H (<1.2) APTT 26.9 (22.0-30.0) sec Sodium (137-145) mmol/L Potassium (3.5-5.1) mmol/L Chloride (98-107) mmol/L Carbon Dioxide (22-30) mmol/L Anion Gap mmol/L BUN (7-17) mg/dL Creatinine (0.52-1.04) mg/dL Est GFR (MDRD) Af Amer (>60 ml/min/1.73 sqM) Est GFR (MDRD) Non-Af (>60 ml/min/1.73 sqM) Glucose (74-99) mg/dL Plasma Lactic Acid [place] 1.2 (0.7-2.0) mmol/L Calcium (8.4-10.2) mg/dL Total Bilirubin (0.2-1.3) mg/dL AST (14-36) U/L ALT (9-52) U/L Alkaline Phosphatase (38-126) U/L Total Creatine Kinase (30-135) U/L CK-MB (CK-2) (0.0-2.4) ng/mL CK-MB (CK-2) Rel Index Troponin I (0.000-0.034) ng/mL Total Protein (6.3-8.2) g/dL Albumin (3.5-5.0) g/dL Amylase (30-110) U/L Lipase (23-300) U/L Urine Color Light Yellow Urine Appearance Clear (Clear) Urine pH 7.5 (5.0-8.0) Ur Specific [place] 1.005 (1.001-1.035) Urine Protein Negative (Negative) Urine Glucose (UA) Negative (Negative) Urine Ketones Negative (Negative) Urine Blood Negative (Negative) Urine Nitrite Negative (Negative) Urine Bilirubin Negative (Negative) Urine Urobilinogen <2.0 (<2.0) mg/dL Ur Leukocyte Esterase Negative (Negative) Blood Type Blood Type Recheck Antibody Screen Spec Expiration Date 11/24/16 Range/Units 23:48 WBC (3.8-10.6) k/uL RBC (3.80-5.40) m/uL Hgb (11.4-16.0) gm/dL Hct (34.0-46.0) % MCV (80.0-100.0) fL MCH (25.0-35.0) pg MCHC (31.0-37.0) g/dL RDW (11.5-15.5) % Plt Count (150-450) k/uL Neutrophils % % Lymphocytes % % Monocytes % % Eosinophils % % Basophils % % Neutrophils # (1.3-7.7) k/uL Lymphocytes # (1.0-4.8) k/uL Monocytes # (0-1.0) k/uL Eosinophils # (0-0.7) k/uL Basophils # (0-0.2) k/uL Anisocytosis PT (9.0-12.0) sec INR (<1.2) APTT (22.0-30.0) sec Sodium (137-145) mmol/L Potassium (3.5-5.1) mmol/L Chloride (98-107) mmol/L Carbon Dioxide (22-30) mmol/L Anion Gap mmol/L BUN (7-17) mg/dL Creatinine (0.52-1.04) mg/dL Est GFR (MDRD) Af Amer (>60 ml/min/1.73 sqM) Est GFR (MDRD) Non-Af (>60 ml/min/1.73 sqM) Glucose (74-99) mg/dL Plasma Lactic Acid [place] (0.7-2.0) mmol/L Calcium (8.4-10.2) mg/dL Total Bilirubin (0.2-1.3) mg/dL AST (14-36) U/L ALT (9-52) U/L Alkaline Phosphatase (38-126) U/L Total Creatine Kinase (30-135) U/L CK-MB (CK-2) (0.0-2.4) ng/mL CK-MB (CK-2) Rel Index Troponin I (0.000-0.034) ng/mL Total Protein (6.3-8.2) g/dL Albumin (3.5-5.0) g/dL Amylase (30-110) U/L Lipase (23-300) U/L Urine Color Urine Appearance (Clear) Urine pH (5.0-8.0) Ur Specific [place] (1.001-1.035) Urine Protein (Negative) Urine Glucose (UA) (Negative) Urine Ketones (Negative) Urine Blood (Negative) Urine Nitrite (Negative) Urine Bilirubin (Negative) Urine Urobilinogen (<2.0) mg/dL Ur Leukocyte Esterase (Negative) Blood Type A Positive Blood Type Recheck No Antibody Screen NEGATIVE Spec Expiration Date 11/27/20162347 Disposition Clinical Impression: Abdominal pain Disposition: HOME SELF-CARE Condition: Good Instructions: Abdominal Pain (ED) Prescriptions: HYDROcodone/APAP 5-325MG [[place] 5-325] 1 tab PO Q6HR PRN #12 tab PRN Reason: Pain Referrals: Xin Hernández MD [Primary Care Provider] - 1-2 days Time of Disposition: 03:16
[2016-11-25 04:02] VITALS: BP 138/68; PULSE 78; TEMP 98.2
== END 2016-11-25 04:01 | disposition home or self-care (01) ==
LOC: EC 23:23
DX: R10.13 Epigastric pain (principal); R11.2 Nausea with vomiting, unspecified; I25.10 Atherosclerotic heart disease of native coronary artery without angina pectoris; I10 Essential (primary) hypertension; Z86.73 Personal history of transient ischemic attack (TIA), and cerebral infarction without residual deficits; Z90.49 Acquired absence of other specified parts of digestive tract; Z98.84 Bariatric surgery status; Z79.899 Other long term (current) drug therapy; Z87.891 Personal history of nicotine dependence
CPT/HCPCS: 99285; 96374; 96375; 96376; 96361; 36415; 93005; 86900; 86901; 80053; 82150; 82550; 82553; 83605; 83690; 84484; 85025; 85610; 85730; 86850; 81003; 74000; 74177; J2270 ×2; J2405; Q9967

== ENCOUNTER 2016-12-02 11:31 | Emergency (ER) | payer MEDICARE ==
[2016-12-02] MEDS ORDERED: SODIUM CHLORIDE 0.9% 500 ML IV STA (11:45)
[2016-12-02] MEDS ORDERED: MORPHINE SULFATE 4 MG/ML SYRINGE IV STA (11:45)
[2016-12-02] MEDS ORDERED: ONDANSETRON 4 MG/2 ML VIAL IVP STA (11:45)
[2016-12-02] MEDS ORDERED: SODIUM CHLORIDE 0.9% 1,000 ML IV STA (11:45)
[2016-12-02] MEDS ORDERED: LORazepam 2 MG/ML SYRINGE IV STA (11:46)
[2016-12-02 12:07] LABS: Anisocytosis Slight; Basophils % (A) 1 %; CH 31.5; CHCM 33.6; Eosinophils # (A) 0.3 k/uL (0-0.7); Eosinophils % (A) 7 %; HCT 31.1 % (34.0-46.0); HDW 2.65; Luc # (Auto) 0.17; Luc % (Auto) 4; Lymphocytes # (A) 1.8 k/uL (1.0-4.8); Lymphocytes % (A) 40 %; MCH 30.2 pg (25.0-35.0); MCHC 32.1 g/dL (31.0-37.0); MCV 93.9 fL (80.0-100.0); Mean Platelet Volume 7.2; Monocytes # (A) 0.3 k/uL (0-1.0); Monocytes % (A) 7 %; Neutrophils # (A) 1.9 k/uL (1.3-7.7); Neutrophils % (A) 42 %; RBC 3.32 m/uL (3.80-5.40); RDW 18.2 % (11.5-15.5); WBC 4.6 k/uL (3.8-10.6); WBC (Perox) 4.59
[2016-12-02 12:16] LABS: INR 1.1 (<1.2); Partial Thromboplastin Time 26.8 sec (22.0-30.0); Prothrombin Time 11.2 sec (9.0-12.0)
[2016-12-02 12:18] LABS: ALT 28 U/L (9-52); AST 24 U/L (14-36); Alkaline Phosphatase 73 U/L (38-126); Anion Gap 10 mmol/L; Blood Urea Nitrogen 12 mg/dL (7-17); Calcium 8.7 mg/dL (8.4-10.2); Carbon Dioxide 21 mmol/L (22-30); Chloride 98 mmol/L (98-107); Glucose 88 mg/dL (74-99); Magnesium 2.2 mg/dL (1.6-2.3); Non-African American GFR(MDRD) >60 (>60 ml/min/1.73 sqM); Phosphorous 3.4 mg/dL (2.5-4.5); Potassium 4.5 mmol/L (3.5-5.1); Sodium 129 mmol/L (137-145); Total Bilirubin 0.3 mg/dL (0.2-1.3); Total Protein 6.7 g/dL (6.3-8.2)
--- NOTE | 2016-12-02 12:22 | ED ---
General Adult HPI - General Chief complaint: Abdominal Pain Stated complaint: Anxiety Time Seen by Provider: 12/02/16 11:35 Source: patient, RN notes reviewed, old records reviewed Mode of arrival: EMS Limitations: no limitations - History of Present Illness Initial comments: This is a 71-year-old female two-year for evaluation multiple vague complaints. Patient's brought in by EMS for anxiety, patient's poor strain. Patient herself is unable about pain, generalized dull pain. Denies chest pain measures about. No recent fevers or sick contacts. There is engender medication. Again this time patient's poor strain secondary to clinical condition time - Related Data Home Medications Medication Instructions Recorded Confirmed Lisinopril [Zestril] 10 mg PO DAILY 09/11/16 11/24/16 Previous Rx's Medication Instructions Recorded traMADol HCl [Ultram] 50 mg PO Q6H PRN #12 tab 11/16/16 HYDROcodone/APAP 5-325MG [[place] 1 tab PO Q6HR PRN #12 tab 11/25/16 5-325] Allergies Allergy/AdvReac Type Severity Reaction Status Date / Time No Known Allergies Allergy Verified 12/02/16 11:40 Review of Systems ROS Statement: Those systems with pertinent positive or pertinent negative responses have been documented in the HPI. ROS Other: All systems not noted in ROS Statement are negative. Past Medical History Past Medical History: Coronary Artery Disease (CAD), Cancer, Chest Pain / Angina , CVA/TIA, Eye Disorder, GERD/Reflux, Hypertension, Renal Disease Additional Past Medical History / Comment(s): Peptic ulcer disease, coronary artery disease ,chronic back pain, osteoarthritis, laryngeal cancer with a previous radiation therapy, TIA back in 2013, chronic bronchitis, head injury back in 2012, cataracts bilateral, hypertension. History of Any Multi-Drug Resistant Organisms: None Reported Past Surgical History: Bariatric Surgery, Cholecystectomy, Heart Catheterization , Heart Catheterization With Stent, Hysterectomy, Joint Replacement, Orthopedic Surgery, Tonsillectomy Additional Past Surgical History / Comment(s): PCIs with stents (total of 4 stents), bilateral knee replacement, left shoulder rotator cuff surgery, gastric bypass, D&C, EGD/colonoscopy, laryngeal tumor removed. Past Anesthesia/Blood Transfusion Reactions: No Reported Reaction Date of Last Stent Placement:: 2012 Past Psychological History: Anxiety Smoking Status: Former smoker Past Alcohol Use History: None Reported Past Drug Use History: None Reported - Past Family History Mother Family Medical History: Cancer, Congestive Heart Failure (CHF), Diabetes Mellitus, Hypertension Father Family Medical History: Myocardial Infarction ([place]) Additional Family Medical History / Comment(s): Father of a [place] at the age of 39yrs. Sister(s) Family Medical History: Cancer General Exam Limitations: no limitations General appearance: alert, in no apparent distress, anxious Head exam: Present: atraumatic, normocephalic, normal inspection Eye exam: Present: normal appearance, PERRL, EOMI. Absent: scleral icterus, conjunctival injection, periorbital swelling ENT exam: Present: normal exam, mucous membranes moist Neck exam: Present: normal inspection. Absent: tenderness, meningismus, lymphadenopathy Respiratory exam: Present: normal lung sounds bilaterally. Absent: respiratory distress, wheezes, rales, rhonchi, stridor Cardiovascular Exam: Present: regular rate, normal rhythm, normal heart sounds. Absent: systolic murmur, diastolic murmur, rubs, gallop, clicks GI/Abdominal exam: Present: soft, normal bowel sounds. Absent: distended, tenderness, guarding, rebound, rigid Extremities exam: Present: normal inspection, full ROM, normal capillary refill. Absent: tenderness, pedal edema, joint swelling, calf tenderness Back exam: Present: normal inspection Neurological exam: Present: alert, oriented X3, CN II-XII intact Psychiatric exam: Present: normal affect, normal mood Skin exam: Present: warm, dry, intact, normal color. Absent: rash Course Vital Signs 12/02/16 12/02/16 12/02/16 11:38 11:57 13:17 Temperature 97.0 F L Pulse Rate 75 58 L Respiratory 18 22 18 Rate Blood Pressure 152/73 154/68 O2 Sat by Pulse 97 97 Oximetry - Reevaluation(s) Reevaluation #1: 12/02/16 13:31 good pain control with no distress EKG Findings - EKG Comments: EKG Findings:: EKG shows sinus rhythm rate of 67, NE 196, QRS 80, QTC 441 Medical Decision Making - Medical Decision Making 71 female to ED for anxiety though also complaining of abdominal pain and is positive for constipation - Lab Data Result diagrams: 12/02/16 11:55 12/02/16 11:55 Lab Results 12/02/16 12/02/16 12/02/16 Range/Units 11:55 11:55 11:55 WBC 4.6 (3.8-10.6) k/uL RBC 3.32 L (3.80-5.40) m/uL Hgb 10.0 L (11.4-16.0) gm/dL Hct 31.1 L (34.0-46.0) % MCV 93.9 (80.0-100.0) fL MCH 30.2 (25.0-35.0) pg MCHC 32.1 (31.0-37.0) g/dL RDW 18.2 H (11.5-15.5) % Plt Count 321 (150-450) k/uL Neutrophils % 42 % Lymphocytes % 40 % Monocytes % 7 % Eosinophils % 7 % Basophils % 1 % Neutrophils # 1.9 (1.3-7.7) k/uL Lymphocytes # 1.8 (1.0-4.8) k/uL Monocytes # 0.3 (0-1.0) k/uL Eosinophils # 0.3 (0-0.7) k/uL Basophils # 0.0 (0-0.2) k/uL Anisocytosis Slight PT (9.0-12.0) sec INR (<1.2) APTT (22.0-30.0) sec Sodium 129 L (137-145) mmol/L Potassium 4.5 (3.5-5.1) mmol/L Chloride 98 (98-107) mmol/L Carbon Dioxide 21 L (22-30) mmol/L Anion Gap 10 mmol/L BUN 12 (7-17) mg/dL Creatinine 0.75 (0.52-1.04) mg/dL Est GFR (MDRD) Af Amer >60 (>60 ml/min/1.73 sqM) Est GFR (MDRD) Non-Af >60 (>60 ml/min/1.73 sqM) Glucose 88 (74-99) mg/dL Plasma Lactic Acid Anthony (0.7-2.0) mmol/L Calcium 8.7 (8.4-10.2) mg/dL Phosphorus 3.4 (2.5-4.5) mg/dL Magnesium 2.2 (1.6-2.3) mg/dL Total Bilirubin 0.3 (0.2-1.3) mg/dL AST 24 (14-36) U/L ALT 28 (9-52) U/L Alkaline Phosphatase 73 (38-126) U/L Total Creatine Kinase 198 H (30-135) U/L CK-MB (CK-2) 1.1 (0.0-2.4) ng/mL CK-MB (CK-2) Rel Index 0.6 Troponin I <0.012 (0.000-0.034) ng/mL Total Protein 6.7 (6.3-8.2) g/dL Albumin 3.9 (3.5-5.0) g/dL Lipase (23-300) U/L Urine Color Urine Appearance (Clear) Urine pH (5.0-8.0) Ur Specific [place] (1.001-1.035) Urine Protein (Negative) Urine Glucose (UA) (Negative) Urine Ketones (Negative) Urine Blood (Negative) Urine Nitrite (Negative) Urine Bilirubin (Negative) Urine Urobilinogen (<2.0) mg/dL Ur Leukocyte Esterase (Negative) 12/02/16 12/02/16 12/02/16 Range/Units 11:55 11:55 11:55 WBC (3.8-10.6) k/uL RBC (3.80-5.40) m/uL Hgb (11.4-16.0) gm/dL Hct (34.0-46.0) % MCV (80.0-100.0) fL MCH (25.0-35.0) pg MCHC (31.0-37.0) g/dL RDW (11.5-15.5) % Plt Count (150-450) k/uL Neutrophils % % Lymphocytes % % Monocytes % % Eosinophils % % Basophils % % Neutrophils # (1.3-7.7) k/uL Lymphocytes # (1.0-4.8) k/uL Monocytes # (0-1.0) k/uL Eosinophils # (0-0.7) k/uL Basophils # (0-0.2) k/uL Anisocytosis PT 11.2 (9.0-12.0) sec INR 1.1 (<1.2) APTT 26.8 (22.0-30.0) sec Sodium (137-145) mmol/L Potassium (3.5-5.1) mmol/L Chloride (98-107) mmol/L Carbon Dioxide (22-30) mmol/L Anion Gap mmol/L BUN (7-17) mg/dL Creatinine (0.52-1.04) mg/dL Est GFR (MDRD) Af Amer (>60 ml/min/1.73 sqM) Est GFR (MDRD) Non-Af (>60 ml/min/1.73 sqM) Glucose (74-99) mg/dL Plasma Lactic Acid Anthony 1.9 (0.7-2.0) mmol/L Calcium (8.4-10.2) mg/dL Phosphorus (2.5-4.5) mg/dL Magnesium (1.6-2.3) mg/dL Total Bilirubin (0.2-1.3) mg/dL AST (14-36) U/L ALT (9-52) U/L Alkaline Phosphatase (38-126) U/L Total Creatine Kinase (30-135) U/L CK-MB (CK-2) (0.0-2.4) ng/mL CK-MB (CK-2) Rel Index Troponin I (0.000-0.034) ng/mL Total Protein (6.3-8.2) g/dL Albumin (3.5-5.0) g/dL Lipase 60 (23-300) U/L Urine Color Urine Appearance (Clear) Urine pH (5.0-8.0) Ur Specific [place] (1.001-1.035) Urine Protein (Negative) Urine Glucose (UA) (Negative) Urine Ketones (Negative) Urine Blood (Negative) Urine Nitrite (Negative) Urine Bilirubin (Negative) Urine Urobilinogen (<2.0) mg/dL Ur Leukocyte Esterase (Negative) 12/02/16 Range/Units 12:38 WBC (3.8-10.6) k/uL RBC (3.80-5.40) m/uL Hgb (11.4-16.0) gm/dL Hct (34.0-46.0) % MCV (80.0-100.0) fL MCH (25.0-35.0) pg MCHC (31.0-37.0) g/dL RDW (11.5-15.5) % Plt Count (150-450) k/uL Neutrophils % % Lymphocytes % % Monocytes % % Eosinophils % % Basophils % % Neutrophils # (1.3-7.7) k/uL Lymphocytes # (1.0-4.8) k/uL Monocytes # (0-1.0) k/uL Eosinophils # (0-0.7) k/uL Basophils # (0-0.2) k/uL Anisocytosis PT (9.0-12.0) sec INR (<1.2) APTT (22.0-30.0) sec Sodium (137-145) mmol/L Potassium (3.5-5.1) mmol/L Chloride (98-107) mmol/L Carbon Dioxide (22-30) mmol/L Anion Gap mmol/L BUN (7-17) mg/dL Creatinine (0.52-1.04) mg/dL Est GFR (MDRD) Af Amer (>60 ml/min/1.73 sqM) Est GFR (MDRD) Non-Af (>60 ml/min/1.73 sqM) Glucose (74-99) mg/dL Plasma Lactic Acid Anthony (0.7-2.0) mmol/L Calcium (8.4-10.2) mg/dL Phosphorus (2.5-4.5) mg/dL Magnesium (1.6-2.3) mg/dL Total Bilirubin (0.2-1.3) mg/dL AST (14-36) U/L ALT (9-52) U/L Alkaline Phosphatase (38-126) U/L Total Creatine Kinase (30-135) U/L CK-MB (CK-2) (0.0-2.4) ng/mL CK-MB (CK-2) Rel Index Troponin I (0.000-0.034) ng/mL Total Protein (6.3-8.2) g/dL Albumin (3.5-5.0) g/dL Lipase (23-300) U/L Urine Color Light Yellow Urine Appearance Clear (Clear) Urine pH 8.0 (5.0-8.0) Ur Specific [place] 1.011 (1.001-1.035) Urine Protein Negative (Negative) Urine Glucose (UA) Negative (Negative) Urine Ketones Negative (Negative) Urine Blood Negative (Negative) Urine Nitrite Negative (Negative) Urine Bilirubin Negative (Negative) Urine Urobilinogen <2.0 (<2.0) mg/dL Ur Leukocyte Esterase Negative (Negative) - Radiology Data Radiology results: report reviewed (X-ray shows positive constipation), image reviewed Disposition Clinical Impression: Abdominal pain, Constipation, Anxiety Disposition: HOME SELF-CARE Condition: Good Instructions: Constipation (ED) Referrals: Xin Hernández MD [Primary Care Provider] - 1-2 days
[2016-12-02] MEDS ORDERED: MORPHINE SULFATE 4 MG/ML SYRINGE IVP STA (12:26)
[2016-12-02 12:28] LABS: Creatine Kinase 198 U/L (30-135)
[2016-12-02 12:40] LABS: Creatine Kinase MB 1.1 ng/mL (0.0-2.4); Troponin I <0.012 ng/mL (0.000-0.034)
[2016-12-02 12:46] LABS: Appearance,Urine Clear (Clear); Bilirubin,Urine Negative (Negative); Glucose,Urine (UA) Negative (Negative); Ketones,Urine Negative (Negative); Leukocyte Esterase,Urine Negative (Negative); Nitrite,Urine Negative (Negative); Protein,Urine Negative (Negative); Specific Gravity,Urine 1.011 (1.001-1.035); UA Billing (MACRO vs. MICRO) CHEM; Urobilinogen,Urine <2.0 mg/dL (<2.0)
--- NOTE | 2016-12-02 13:06 | XR ---
EXAMINATION TYPE: XR abdomen acute w cxr DATE OF EXAM: 12/02/2016 COMPARISON: CT abdomen pelvis dated 11/25/2016. HISTORY: Back pain and abdominal pain. History of bariatric surgery TECHNIQUE: Supine, upright, and left side down lateral decubitus views of the abdomen are obtained. FINDINGS: Within the chest there is no focal consolidation, pleural effusion or pneumothorax. Copious soft tiss ues obscure the left costophrenic angle as well as linear peripheral platelike subsegmental atelectas is. Cardiomediastinal silhouette is enlarged. Partial visualization of a left humeral arthroplasty an d degenerative changes of the right glenohumeral joint. There is no evidence for pneumoperitoneum. The bowel gas pattern is unremarkable as there is air throughout nondilated small and large bowel. M oderate amount of stool is seen with retained contrast throughout the colon from the recent CT. No sizeable air fluid levels. Degenerative changes are appreciated of the thoracolumbar and lumbosacral spine as well as the femora l acetabular joints. Cholecystectomy clips reside within the right upper quadrant. IMPRESSION: 1. Moderate amount of retained stool throughout the colon as well as contrast from the recent abdomin al CT. Nonobstructive bowel gas pattern. 2. Trace left subsegmental atelectasis.
[2016-12-02] MEDS ORDERED: MAGNESIUM CITRATE 296 ML BOTTLE PO ONE (13:29)
[2016-12-02] MEDS ORDERED: GLYCERIN ADULT SUPPOSITORY 1 EACH RECTAL STA (13:29)
[2016-12-02] MEDS ORDERED: BISACODYL 5 MG TABLET.DR PO STA (13:31)
[2016-12-02] MEDS ORDERED: SENNOSIDES-DOCUSATE SODIUM 1 EACH TAB PO STA (13:32)
[2016-12-02 13:41] VITALS: BP 142/63; PULSE 63; RESP 14; TEMP 98
== END 2016-12-02 13:57 | disposition home or self-care (01) ==
LOC: EC 11:31
DX: K59.00 Constipation, unspecified (principal); F41.9 Anxiety disorder, unspecified; I10 Essential (primary) hypertension; Z85.21 Personal history of malignant neoplasm of larynx; Z87.891 Personal history of nicotine dependence; Z79.899 Other long term (current) drug therapy
CPT/HCPCS: 36415; 93005; 80053; 82550; 82553; 83605; 83690; 83735; 84100; 84484; 85025; 85610; 85730; 81003; 74022; 99285; 96374; 96375 ×2; 96376; 96361 ×2; J2060; J2270; J2405

== ENCOUNTER 2016-12-09 17:40 | Inpatient (IN) | payer MEDICARE ==
[2016-12-09] MEDS ORDERED: SODIUM CHLORIDE 0.9% 1,000 ML IV STA (17:59)
[2016-12-09] MEDS ORDERED: PANTOPRAZOLE 40 MG/10 ML VIAL IVP STA (17:59)
[2016-12-09] MEDS ORDERED: ONDANSETRON 4 MG/2 ML VIAL IVP STA (17:59)
[2016-12-09 18:32] LABS: INR 1.2 (<1.2); Partial Thromboplastin Time 24.3 sec (22.0-30.0); Prothrombin Time 11.8 sec (9.0-12.0)
[2016-12-09 18:34] LABS: ALT 22 U/L (9-52); AST 23 U/L (14-36); Alkaline Phosphatase 72 U/L (38-126); Anion Gap 10 mmol/L; Blood Urea Nitrogen 18 mg/dL (7-17); Calcium 8.7 mg/dL (8.4-10.2); Carbon Dioxide 20 mmol/L (22-30); Chloride 101 mmol/L (98-107); Creatine Kinase 260 U/L (30-135); Glucose 90 mg/dL (74-99); Magnesium 1.8 mg/dL (1.6-2.3); Non-African American GFR(MDRD) >60 (>60 ml/min/1.73 sqM); Potassium 4.9 mmol/L (3.5-5.1); Sodium 131 mmol/L (137-145); Total Bilirubin 0.2 mg/dL (0.2-1.3); Total Protein 6.2 g/dL (6.3-8.2)
[2016-12-09 18:37] LABS: Anisocytosis Slight; Aty Lym Flag Slight; CH 30.2; CHCM 32.7; HCT 28.6 % (34.0-46.0); HDW 2.84; HGB 9.4 gm/dL (11.4-16.0); MCH 30.6 pg (25.0-35.0); MCHC 32.9 g/dL (31.0-37.0); MCV 92.9 fL (80.0-100.0); RBC 3.08 m/uL (3.80-5.40); RDW 17.2 % (11.5-15.5); WBC 7.4 k/uL (3.8-10.6); WBC (Perox) 6.78
[2016-12-09 18:46] LABS: Creatine Kinase MB 1.6 ng/mL (0.0-2.4); Troponin I <0.012 ng/mL (0.000-0.034)
--- NOTE | 2016-12-09 19:06 | XR ---
EXAMINATION TYPE: XR chest 2V DATE OF EXAM: 12/09/2016 COMPARISON: 12/20/2015 INDICATION: Pain nausea TECHNIQUE: Frontal and lateral views of the chest are obtained. FINDINGS: The heart size is normal. The pulmonary vasculature is normal. The lungs are clear. Left shoulder prosthesis is present. IMPRESSION: 1. No acute pulmonary process.
[2016-12-09 19:43] LABS: Add Differential Manual Differential
[2016-12-09 19:47] LABS: Nucleated Red Blood Cells 0 /100 WBC (0-0); Total Cells Counted 100
[2016-12-09 20:07] LABS: Manual Review Performed; Polychromasia Present
[2016-12-09 20:30] LABS: Ammonia <9 umol/L (<30)
[2016-12-09] MEDS ORDERED: NALOXONE 0.4 MG/ML 1 ML VIAL IV PRN (20:59)
[2016-12-09] MEDS ORDERED: ONDANSETRON 4 MG/2 ML VIAL IVP PRN (21:18)
[2016-12-09] MEDS ORDERED: HYDROcodone/APAP 5-325MG 1 EACH TAB PO PRN (21:19)
--- NOTE | 2016-12-09 21:20 | ED ---
GI Bleed HPI - General Chief complaint: GI Bleed Stated complaint: Nausea/Vomiting Time Seen by Provider: 12/09/16 17:40 Source: EMS Mode of arrival: EMS Limitations: no limitations - History of Present Illness Initial comments: 71-year-old female with past medical history of CAD, CVA/TIA, GERD, HTN, renal disease and previous GI bleeds presenting for evaluation of abdominal pain, intractable nausea and vomiting, and hematemesis today. She states that she's been having these symptoms on and off for the last week over today they were much worse. She called her primary care physician's office and she advised that if her symptoms were significant were she should come to the ED for further treatment and evaluation. Upon arrival she states that her abdominal pain has resolved however she continues to have significant nausea. There is no more hematemesis here in the ED since initial arrival. She states that she has an appointment with Dr. Beasley for EGD/colonoscopy on Saturday of this week. - Related Data Home Medications Medication Instructions Recorded Confirmed Lisinopril [Zestril] 10 mg PO DAILY 09/11/16 12/09/16 Gabapentin [Neurontin] 300 mg PO BID 12/09/16 12/09/16 HYDROcodone/APAP 5-325MG [[place] 1 tab PO Q6HR PRN 12/09/16 12/09/16 5-325] Levothyroxine Sodium [Synthroid] 100 mcg PO DAILY 12/09/16 12/09/16 Omeprazole 20 mg PO DAILY 12/09/16 12/09/16 Simvastatin [Zocor] 20 mg PO DAILY 12/09/16 12/09/16 Allergies Allergy/AdvReac Type Severity Reaction Status Date / Time No Known Allergies Allergy Verified 12/09/16 18:12 Review of Systems ROS Statement: Those systems with pertinent positive or pertinent negative responses have been documented in the HPI. ROS Other: All systems not noted in ROS Statement are negative. Constitutional: Denies: fever, chills, weight change Eyes: Denies: eye pain, vision change ENT: Denies: ear pain, throat pain Respiratory: Denies: cough, dyspnea Cardiovascular: Denies: chest pain, palpitations Endocrine: Denies: fatigue, polydipsia Gastrointestinal: Reports: abdominal pain, nausea, vomiting, hematemesis, hematochezia. Denies: constipation Genitourinary: Denies: urgency, dysuria Musculoskeletal: Denies: back pain, arthralgia Skin: Denies: rash, lesions Neurological: Denies: headache, weakness Psychiatric: Denies: anxiety, depression Hematological/Lymphatic: Denies: easy bleeding, swollen glands Past Medical History Past Medical History: Coronary Artery Disease (CAD), Cancer, Chest Pain / Angina , CVA/TIA, Eye Disorder, GERD/Reflux, Hypertension, Renal Disease Additional Past Medical History / Comment(s): Peptic ulcer disease, coronary artery disease ,chronic back pain, osteoarthritis, laryngeal cancer with a previous radiation therapy, TIA back in 2013, chronic bronchitis, head injury back in 2012, cataracts bilateral, hypertension. History of Any Multi-Drug Resistant Organisms: None Reported Past Surgical History: Bariatric Surgery, Cholecystectomy, Heart Catheterization , Heart Catheterization With Stent, Hysterectomy, Joint Replacement, Orthopedic Surgery, Tonsillectomy Additional Past Surgical History / Comment(s): PCIs with stents (total of 4 stents), bilateral knee replacement, left shoulder rotator cuff surgery, gastric bypass, D&C, EGD/colonoscopy, laryngeal tumor removed. Past Anesthesia/Blood Transfusion Reactions: No Reported Reaction Date of Last Stent Placement:: 2012 Past Psychological History: Anxiety Smoking Status: Former smoker Past Alcohol Use History: None Reported Past Drug Use History: None Reported - Past Family History Mother Family Medical History: Cancer, Congestive Heart Failure (CHF), Diabetes Mellitus, Hypertension Father Family Medical History: Myocardial Infarction ([place]) Additional Family Medical History / Comment(s): Father of a [place] at the age of 39yrs. Sister(s) Family Medical History: Cancer Brother(s) Family Medical History: Cancer General Exam Limitations: no limitations General appearance: alert, in no apparent distress Head exam: Present: atraumatic, normocephalic, normal inspection Eye exam: Present: normal appearance, PERRL, EOMI. Absent: scleral icterus, conjunctival injection, periorbital swelling ENT exam: Present: normal exam, mucous membranes moist Neck exam: Present: normal inspection. Absent: tenderness, meningismus, lymphadenopathy Respiratory exam: Present: normal lung sounds bilaterally. Absent: respiratory distress, wheezes, rales, rhonchi, stridor Cardiovascular Exam: Present: regular rate, normal rhythm, normal heart sounds. Absent: systolic murmur, diastolic murmur, rubs, gallop, clicks GI/Abdominal exam: Present: soft, tenderness, normal bowel sounds. Absent: distended, guarding, rebound, rigid Rectal exam: Present: heme (-) stool Extremities exam: Present: normal inspection, full ROM, normal capillary refill. Absent: tenderness, pedal edema, joint swelling, calf tenderness Back exam: Present: normal inspection Neurological exam: Present: alert, oriented X3, CN II-XII intact Psychiatric exam: Present: normal affect, normal mood Skin exam: Present: warm, dry, intact, normal color. Absent: rash Course Vital Signs 12/09/16 12/09/16 12/09/16 17:40 19:03 19:20 Temperature 97.6 F Pulse Rate 75 77 68 Respiratory 18 18 16 Rate Blood Pressure 153/60 126/61 82/41 O2 Sat by Pulse 97 96 96 Oximetry 12/09/16 12/09/16 19:37 21:08 Temperature Pulse Rate 67 Respiratory 18 Rate Blood Pressure 112/54 139/76 O2 Sat by Pulse 97 Oximetry Medical Decision Making - Medical Decision Making 71-year-old female with past medical history of CAD, CVA/TIA, GERD, HTN, renal disease and previous GI bleeds presenting for evaluation of abdominal pain, intractable nausea and vomiting, and hematemesis today. She states that she's been having these symptoms on and off for the last week over today they were much worse. She called her primary care physician's office and she advised that if her symptoms were significant were she should come to the ED for further treatment and evaluation. Upon arrival she states that her abdominal pain has resolved however she continues to have significant nausea. There is no more hematemesis here in the ED since initial arrival. She states that she has an appointment with Dr. Beasley for EGD/colonoscopy on Saturday of this week. On physical examination the patient appears to be in no apparent distress and is resting comfortably in the bed. She did have an episode of hematemesis here in the ED however she did not appear to have any more. Abdomen is soft and only mildly tender generally without peritoneal signs of guarding, rigidity, or rebound. Occult stool is negative. Concern for GI bleed and will obtain labs, EKG, chest x-ray, and provide IV fluids. Labs significant for 1 g drop in hemoglobin from previous baseline. There is also hyponatremia. Chest x-ray showed no acute process. The patient was reevaluated and had no change in her physical exam. The patient was discussed with her primary care physician who states that the patient is very non-compliant with medical advice and treatments. When she was informed of the hgb drop she states that it might be better for her to be admitted to see Dr. Beasley as her compliance issues will be negated and she will have the procedures performed. The on-call physician for [facility] accepted the admission without further request. - Lab Data Result diagrams: 12/09/16 17:55 12/09/16 17:55 Lab Results 12/09/16 12/09/16 12/09/16 Range/Units 17:55 17:55 17:55 WBC 7.4 (3.8-10.6) k/uL RBC 3.08 L (3.80-5.40) m/uL Hgb 9.4 L (11.4-16.0) gm/dL Hct 28.6 L (34.0-46.0) % MCV 92.9 (80.0-100.0) fL MCH 30.6 (25.0-35.0) pg MCHC 32.9 (31.0-37.0) g/dL RDW 17.2 H (11.5-15.5) % Plt Count 435 (150-450) k/uL Neutrophils % (Manual) 47 % Lymphocytes % (Manual) 35 % Monocytes % (Manual) 12 % Eosinophils % (Manual) 6 % Neutrophils # (Manual) 3.48 (1.3-7.7) k/uL Lymphocytes # (Manual) 2.59 (1.0-4.8) k/uL Monocytes # (Manual) 0.89 (0-1.0) k/uL Eosinophils # (Manual) 0.44 (0-0.7) k/uL Nucleated RBCs 0 (0-0) /100 WBC Manual Slide Review Performed Polychromasia Present Anisocytosis Slight PT (9.0-12.0) sec INR (<1.2) APTT (22.0-30.0) sec Sodium 131 L (137-145) mmol/L Potassium 4.9 (3.5-5.1) mmol/L Chloride 101 (98-107) mmol/L Carbon Dioxide 20 L (22-30) mmol/L Anion Gap 10 mmol/L BUN 18 H (7-17) mg/dL Creatinine 0.90 (0.52-1.04) mg/dL Est GFR (MDRD) Af Amer >60 (>60 ml/min/1.73 sqM) Est GFR (MDRD) Non-Af >60 (>60 ml/min/1.73 sqM) Glucose 90 (74-99) mg/dL Plasma Lactic Acid Anthony (0.7-2.0) mmol/L Calcium 8.7 (8.4-10.2) mg/dL Magnesium 1.8 (1.6-2.3) mg/dL Total Bilirubin 0.2 (0.2-1.3) mg/dL AST 23 (14-36) U/L ALT 22 (9-52) U/L Alkaline Phosphatase 72 (38-126) U/L Ammonia (<30) umol/L Total Creatine Kinase 260 H (30-135) U/L CK-MB (CK-2) 1.6 (0.0-2.4) ng/mL CK-MB (CK-2) Rel Index 0.6 Troponin I <0.012 (0.000-0.034) ng/mL NT-Pro-B Natriuret Pep pg/mL Total Protein 6.2 L (6.3-8.2) g/dL Albumin 3.6 (3.5-5.0) g/dL Lipase 74 (23-300) U/L Stool Occult Blood (Negative) Blood Type Blood Type Recheck Antibody Screen Spec Expiration Date 12/09/16 12/09/16 12/09/16 Range/Units 17:55 17:55 17:55 WBC (3.8-10.6) k/uL RBC (3.80-5.40) m/uL Hgb (11.4-16.0) gm/dL Hct (34.0-46.0) % MCV (80.0-100.0) fL MCH (25.0-35.0) pg MCHC (31.0-37.0) g/dL RDW (11.5-15.5) % Plt Count (150-450) k/uL Neutrophils % (Manual) % Lymphocytes % (Manual) % Monocytes % (Manual) % Eosinophils % (Manual) % Neutrophils # (Manual) (1.3-7.7) k/uL Lymphocytes # (Manual) (1.0-4.8) k/uL Monocytes # (Manual) (0-1.0) k/uL Eosinophils # (Manual) (0-0.7) k/uL Nucleated RBCs (0-0) /100 WBC Manual Slide Review Polychromasia Anisocytosis PT 11.8 (9.0-12.0) sec INR 1.2 H (<1.2) APTT 24.3 (22.0-30.0) sec Sodium (137-145) mmol/L Potassium (3.5-5.1) mmol/L Chloride (98-107) mmol/L Carbon Dioxide (22-30) mmol/L Anion Gap mmol/L BUN (7-17) mg/dL Creatinine (0.52-1.04) mg/dL Est GFR (MDRD) Af Amer (>60 ml/min/1.73 sqM) Est GFR (MDRD) Non-Af (>60 ml/min/1.73 sqM) Glucose (74-99) mg/dL Plasma Lactic Acid Anthony (0.7-2.0) mmol/L Calcium (8.4-10.2) mg/dL Magnesium (1.6-2.3) mg/dL Total Bilirubin (0.2-1.3) mg/dL AST (14-36) U/L ALT (9-52) U/L Alkaline Phosphatase (38-126) U/L Ammonia (<30) umol/L Total Creatine Kinase (30-135) U/L CK-MB (CK-2) (0.0-2.4) ng/mL CK-MB (CK-2) Rel Index Troponin I (0.000-0.034) ng/mL NT-Pro-B Natriuret Pep 288 pg/mL Total Protein (6.3-8.2) g/dL Albumin (3.5-5.0) g/dL Lipase (23-300) U/L Stool Occult Blood (Negative) Blood Type A Positive Blood Type Recheck No Antibody Screen NEGATIVE Spec Expiration Date 12/12/2016 - 235412/09/16 12/09/16 Range/Units 20:07 20:07 WBC (3.8-10.6) k/uL RBC (3.80-5.40) m/uL Hgb (11.4-16.0) gm/dL Hct (34.0-46.0) % MCV (80.0-100.0) fL MCH (25.0-35.0) pg MCHC (31.0-37.0) g/dL RDW (11.5-15.5) % Plt Count (150-450) k/uL Neutrophils % (Manual) % Lymphocytes % (Manual) % Monocytes % (Manual) % Eosinophils % (Manual) % Neutrophils # (Manual) (1.3-7.7) k/uL Lymphocytes # (Manual) (1.0-4.8) k/uL Monocytes # (Manual) (0-1.0) k/uL Eosinophils # (Manual) (0-0.7) k/uL Nucleated RBCs (0-0) /100 WBC Manual Slide Review Polychromasia Anisocytosis PT (9.0-12.0) sec INR (<1.2) APTT (22.0-30.0) sec Sodium (137-145) mmol/L Potassium (3.5-5.1) mmol/L Chloride (98-107) mmol/L Carbon Dioxide (22-30) mmol/L Anion Gap mmol/L BUN (7-17) mg/dL Creatinine (0.52-1.04) mg/dL Est GFR (MDRD) Af Amer (>60 ml/min/1.73 sqM) Est GFR (MDRD) Non-Af (>60 ml/min/1.73 sqM) Glucose (74-99) mg/dL Plasma Lactic Acid Anthony 1.1 (0.7-2.0) mmol/L Calcium (8.4-10.2) mg/dL Magnesium (1.6-2.3) mg/dL Total Bilirubin (0.2-1.3) mg/dL AST (14-36) U/L ALT (9-52) U/L Alkaline Phosphatase (38-126) U/L Ammonia <9 (<30) umol/L Total Creatine Kinase (30-135) U/L CK-MB (CK-2) (0.0-2.4) ng/mL CK-MB (CK-2) Rel Index Troponin I (0.000-0.034) ng/mL NT-Pro-B Natriuret Pep pg/mL Total Protein (6.3-8.2) g/dL Albumin (3.5-5.0) g/dL Lipase (23-300) U/L Stool Occult Blood Negative (Negative) Blood Type Blood Type Recheck Antibody Screen Spec Expiration Date 12/09/16 21:32 EKG shows junctional rhythm with occasional PVCs and ventricular rate of 65, QRS 86, QT/QTc 404/420. Disposition Clinical Impression: GI bleed, Hematemesis, Hyponatremia Disposition: ADMITTED IP TO THIS HOSP Referrals: Xin Hernández MD [Primary Care Provider] - 1-2 days Decision to Admit Reason: Admit from EC Decision Date: 12/09/16 Decision Time: 21:20
[2016-12-09] MEDS: SODIUM CHLORIDE 0.9% 1,000 ML IV SCH (21:27)
--- NOTE | 2016-12-09 21:42 | P.HPIM ---
History of Present Illness H&P Date: 12/09/16 Chief Complaint: Left lower quadrant abdominal pain 71 years old lady with history of gastric bypass complicated by an anastomotic superficial ulcer diagnosed 2 months ago, hypercholesterolemia, hypothyroidism, CAD status post for stents, who presented to ED with complaints of left lower quadrant abdominal pain associated with nausea and vomiting. Her pain has been on and off for the last 2 days, dull in nature, in the left lower quadrant radiating to the right lower quadrant, associated with nausea and emesis 2 with small amount of hematemesis with the last vomit, last bowel movement was yesterday and was formed, not associated with acid reflux and it feels different from her pain that she had when she was diagnosed with superficial anastomotic ulcers 2 months ago. She denied dysuria, fever, chills, chest pain. In the ED, her vital signs were unremarkable and she did not have leukocytosis, her hemoglobin was found 9.4 down from 10 a week ago, FOBT was negative otherwise. ED staff recommended admission to medicine. Patient is known to be noncompliant to medical management and follow-up. She was supposed to have a repeat EGD in few days. Review of Systems Constitutional: Patient reports no fever, no chills, no weight changes Eyes: Patient reports no double vision, no visual changes ENT: Patient reports no rhinorrhea, no post nasal drip, no sore throat Cardiovascular: Patient reports no chest, no edema, no palpitations, no syncope , no orthopnea, no paroxysmal nocturnal dyspnea. Respiratory: Patient reports no dyspnea, no cough, no wheeze Gastrointestinal: Patient reports nausea, vomiting, no constipation, no diarrhea Genitourinary: Patient reports no dysuria, no urinary frequency, no hematuria. Musculoskeletal: Patient reports no unusual joint pain, no joint swelling or weakness. Patient reports no muscular pain. Psychiatric: Patient reports no changes in mood, no sleeping problems. Patient reports no changes in memory. Endocrine: Patient reports no thirst, no polyuria, no cold intolerance, no heat intolerance. Neurological: Patient reports no unusual paresthesias, no seizures, no paresis , no paralysis, no facila droop, no headache. Heme/Lymphatic: Patient reports no easy bruising, no bleeding tendency, no lymphadenopathy. Allergic/ Immunologic: Patient reports no recent allergic reactions or immunologic history. Skin: Patient reports no rashes or unusual lesions. Past Medical History Past Medical History: Coronary Artery Disease (CAD), Cancer, Chest Pain / Angina , CVA/TIA, Eye Disorder, GERD/Reflux, Hypertension, Renal Disease Additional Past Medical History / Comment(s): Peptic ulcer disease, coronary artery disease ,chronic back pain, osteoarthritis, laryngeal cancer with a previous radiation therapy, TIA back in 2013, chronic bronchitis, head injury back in 2012, cataracts bilateral, hypertension. History of Any Multi-Drug Resistant Organisms: None Reported Past Surgical History: Bariatric Surgery, Cholecystectomy, Heart Catheterization , Heart Catheterization With Stent, Hysterectomy, Joint Replacement, Orthopedic Surgery, Tonsillectomy Additional Past Surgical History / Comment(s): PCIs with stents (total of 4 stents), bilateral knee replacement, left shoulder rotator cuff surgery, gastric bypass, D&C, EGD/colonoscopy, laryngeal tumor removed. Past Anesthesia/Blood Transfusion Reactions: No Reported Reaction Date of Last Stent Placement:: 2012 Past Psychological History: Anxiety Smoking Status: Former smoker Past Alcohol Use History: None Reported Past Drug Use History: None Reported - Past Family History Mother Family Medical History: Cancer, Congestive Heart Failure (CHF), Diabetes Mellitus, Hypertension Father Family Medical History: Myocardial Infarction (ID) Additional Family Medical History / Comment(s): Father of a ID at the age of 39yrs. Sister(s) Family Medical History: Cancer Brother(s) Family Medical History: Cancer Medications and Allergies Home Medications Medication Instructions Recorded Confirmed Type Lisinopril [Zestril] 10 mg PO DAILY 09/11/16 12/09/16 History Gabapentin [Neurontin] 300 mg PO BID 12/09/16 12/09/16 History HYDROcodone/APAP 5-325MG [[place] 1 tab PO Q6HR PRN 12/09/16 12/09/16 History 5-325] Levothyroxine Sodium [Synthroid] 100 mcg PO DAILY 12/09/16 12/09/16 History Omeprazole 20 mg PO DAILY 12/09/16 12/09/16 History Simvastatin [Zocor] 20 mg PO DAILY 12/09/16 12/09/16 History Allergies Allergy/AdvReac Type Severity Reaction Status Date / Time No Known Allergies Allergy Verified 12/09/16 18:12 Physical Exam Vitals: Vital Signs Temp Pulse Resp BP Pulse Ox 12/09/16 21:08 67 18 139/76 97 12/09/16 19:37 112/54 12/09/16 19:20 68 16 82/41 96 12/09/16 19:03 77 18 126/61 96 12/09/16 17:40 97.6 F 75 18 153/60 97 Intake and Output 12/09/16 12/09/16 12/09/16 06:59 14:59 22:59 Intake Total 500 Balance 500 Intake: IV 500 Invasive Line 1 500 Other: Weight 86.636 kg Patient Weight 12/10/16 06:59 Weight 86.636 kg Constitutional: No acute distress, conversant, pleasant Eyes: Anicteric sclerae, moist conjunctiva, no lid-lag PERRLA ENMT: NC/AT Oropharynx clear, no erythema, exudates Neck: Supple, FROM, no masses, or JVD No carotid bruits No thyromegaly Lungs: Clear to auscultation Clear to percussion Normal respiratory effort, no accessory muscle use Cardiovascular: Heart regular in rate and rhythm, No murmurs, gallops, or rubs No peripheral edema Abdominal: Soft Left lower quadrant tenderness to deep palpation, no guarding, rebound or rigidity Abdomen moving with respiration Normoactive bowel sounds No hepatomegaly, No splenomegaly No palpable mass No abdominal wall hernia noted Skin: Normal temperature, tone, texture, turgor No induration No subcutaneous nodules No rash, lesions No ulcers Extremities: No digital cyanosis No clubbing Pedal pulses intact and symmetrical Radial pulses intact and symmetrical Normal gait and station No calf tenderness Psychiatric: Alert and oriented to person, place and time Appropriate affect Intact judgement Neuro: Muscles Strength 5/5 in all 4 extremities Sensation to light touch grossly present throughout Cranial nerves II-XII grossly intact No focal sensory deficits of systems Results CBC & Chem 7: 12/09/16 17:55 12/09/16 17:55 Labs: Abnormal Lab Results - Last 24 Hours (Table) 12/09/16 12/09/16 12/09/16 Range/Units 17:55 17:55 17:55 RBC 3.08 L (3.80-5.40) m/uL Hgb 9.4 L (11.4-16.0) gm/dL Hct 28.6 L (34.0-46.0) % RDW 17.2 H (11.5-15.5) % INR (<1.2) Sodium 131 L (137-145) mmol/L Carbon Dioxide 20 L (22-30) mmol/L BUN 18 H (7-17) mg/dL Total Creatine Kinase 260 H (30-135) U/L Total Protein 6.2 L (6.3-8.2) g/dL 12/09/16 Range/Units 17:55 RBC (3.80-5.40) m/uL Hgb (11.4-16.0) gm/dL Hct (34.0-46.0) % RDW (11.5-15.5) % INR 1.2 H (<1.2) Sodium (137-145) mmol/L Carbon Dioxide (22-30) mmol/L BUN (7-17) mg/dL Total Creatine Kinase (30-135) U/L Total Protein (6.3-8.2) g/dL Thrombosis Risk Factor Assmnt - DVT/VTE Prophylaxis DVT/VTE Prophylaxis: Pharmacologic Prophylaxis ordered - Choose All That Apply Each Factor Represents 1 point: Obesity (BMI >25) Thrombosis Risk Factor Assessment Total Risk Factor Score: 1 Thrombosis Risk Factor Assessment Level: Low Risk Assessment and Plan Plan: #Left lower quadrant abdominal pain, rather than epigastric pain Very mild hematemesis -Pain does not appear to be related to her PUD and an anastomotic ulcers that followed her gastric bypass surgery -Patient is supposed to have repeat EGD in few days, we will consult GI, placed on IV PPI -No reported constipation, no leukocytosis -Cou;d be Diverticulitis with her diverticulosis hx -Ordered CT abdomen and pelvis with by mouth and IV contrast #Acute on chronic normocytic anemia -Possibly related to above -Pending iron studies #Hypercholesterolemia -LDL above 200 on May, pending lipid panel -On simvastatin, may need stronger statin #Hypothyroidism, history of laryngeal cancer -Onset thyroid, TSH level above 100 on August -Pending TSH #Hypertension, history of -Home lisinopril #History of CAD with stents -No aspirin given PUD -Not on beta blockers, to be reassessed as an outpatient Full code DVT prophylaxis with heparin twice a day only for now Time with Patient: Greater than 30
[2016-12-09] MEDS ORDERED: RX INFO: IV CONTRAST WAS GIVEN 1 EACH MISC MISCELLANE PRN (22:37)
[2016-12-09 23:28] VITALS: BMI 33.8
[2016-12-09] MEDS: HYDROmorphone 1 MG/ML 1 ML SYRINGE IVP PRN (23:48)
[2016-12-09 23:50] LABS: Appearance,Urine Clear (Clear); Bilirubin,Urine Negative (Negative); Glucose,Urine (UA) Negative (Negative); Ketones,Urine Negative (Negative); Leukocyte Esterase,Urine Negative (Negative); Nitrite,Urine Negative (Negative); Protein,Urine Negative (Negative); Specific Gravity,Urine 1.006 (1.001-1.035); UA Billing (MACRO vs. MICRO) CHEM; Urobilinogen,Urine <2.0 mg/dL (<2.0)
[2016-12-10] MEDS ORDERED: HEPARIN SODIUM,PORCINE 5,000 UNIT/ML 1 ML VIAL SQ SCH
[2016-12-10] MEDS: HYDROmorphone 1 MG/ML 1 ML SYRINGE IVP PRN ×3 (03:08→11:47)
[2016-12-10] MEDS: SODIUM CHLORIDE 0.9% 1,000 ML IV SCH ×3 (05:21→22:57)
[2016-12-10] MEDS: LEVOTHYROXINE 100 MCG TAB PO SCH (06:10)
[2016-12-10] MEDS ORDERED: PANTOPRAZOLE 40 MG TABLET PO SCH (06:30)
[2016-12-10 07:12] LABS: Anisocytosis Slight; Basophils # (A) 0.1 k/uL (0-0.2); Basophils % (A) 1 %; CH 30.1; Eosinophils # (A) 0.3 k/uL (0-0.7); Eosinophils % (A) 6 %; HCT 29.3 % (34.0-46.0); HDW 2.85; HGB 9.3 gm/dL (11.4-16.0); Hypochromasia Slight; Luc # (Auto) 0.21; Luc % (Auto) 4; Lymphocytes # (A) 1.8 k/uL (1.0-4.8); Lymphocytes % (A) 37 %; MCH 29.9 pg (25.0-35.0); MCHC 31.7 g/dL (31.0-37.0); MCV 94.4 fL (80.0-100.0); Mean Platelet Volume 6.7; Monocytes # (A) 0.3 k/uL (0-1.0); Monocytes % (A) 6 %; Neutrophils # (A) 2.3 k/uL (1.3-7.7); Neutrophils % (A) 46 %; WBC (Perox) 5.55
[2016-12-10 07:33] LABS: Anion Gap 6 mmol/L; Blood Urea Nitrogen 13 mg/dL (7-17); Calcium 8.3 mg/dL (8.4-10.2); Carbon Dioxide 22 mmol/L (22-30); Chloride 105 mmol/L (98-107); Cholesterol 162 mg/dL (<200); Glucose 81 mg/dL (74-99); HDL Cholesterol 33 mg/dL (40-60); Magnesium 1.8 mg/dL (1.6-2.3); Non-African American GFR(MDRD) >60 (>60 ml/min/1.73 sqM); Phosphorous 3.6 mg/dL (2.5-4.5); Potassium 4.6 mmol/L (3.5-5.1); Sodium 133 mmol/L (137-145)
[2016-12-10 07:45] LABS: Iron 24 ug/dL (37-170)
[2016-12-10 07:55] LABS: Total Iron Binding Capacity 300 ug/dL (265-497)
[2016-12-10] MEDS: IOHEXOL 350 MG/ML 25 ML BOTTLE (ORAL USE) PO PRN ×2 (08:28→09:58)
[2016-12-10] MEDS: HEPARIN SODIUM,PORCINE 5,000 UNIT/ML 1 ML VIAL SQ SCH ×2 (08:37→19:52)
[2016-12-10] MEDS: PANTOPRAZOLE 40 MG/10 ML VIAL IV SCH (08:37)
[2016-12-10] MEDS: GABAPENTIN 300 MG CAP PO SCH ×2 (10:48→19:52)
[2016-12-10] MEDS: ATORVASTATIN 10 MG TAB PO SCH (10:48)
[2016-12-10] MEDS: LISINOPRIL 10 MG TAB PO SCH (10:48)
--- NOTE | 2016-12-10 11:03 | CT ---
EXAMINATION TYPE: CT abdomen pelvis w con DATE OF EXAM: 12/10/2016 HISTORY: LLQ pain CT DLP: 1485.1mGycm Automated Exposure Control for Dose Reduction was Utilized. CONTRAST: CT scan of the abdomen and pelvis is performed with IV Contrast, patient injected with 100 mL of Omni paque 300. COMPARISON: CT abdomen and pelvis from 2 weeks ago. FINDINGS: LUNG BASES: There is suspected coronary stents in the RCA distribution. There is stable small to tiny pericardial effusion. LIVER/GB: Cholecystectomy clips are redemonstrated. Liver remains diffusely low dense suggesting fatt y infiltration. PANCREAS: No significant abnormality is seen. SPLEEN: No significant abnormality is seen. ADRENALS: No significant abnormality is seen. KIDNEYS: No significant abnormality is seen. BOWEL: Oral contrast reaches level of the terminal ileum. There is redemonstration of surgical change from gastric bypass procedure at level of stomach. There is persistent small hiatal hernia redemonst rated. There is no suspicious small or large bowel dilatation. Some diverticula are seen in the left and sigmoid colon most prominent in the proximal sigmoid colon level. There is no convincing evidence for acute diverticulitis. UTERUS/ADNEXA: Uterus is surgically absent. LYMPH NODES: No greater than 1cm abdominal or pelvic lymph nodes are appreciated. OSSEOUS STRUCTURES: There is scoliotic curvature in the lumbar spine. There is multilevel spurring an d disc space narrowing with vacuum disc phenomenon. There is grade 1 retrolisthesis of L2 on L3 and g rade 1 anterolisthesis L4 on L5 redemonstrated. OTHER: No significant additional abnormality is seen. IMPRESSION: No significant new or acute finding is seen to account for patient's clinical symptoms.
[2016-12-10] MEDS ORDERED: MAG HYDROX/AL HYDROX/SIMETH 30 ML, HYOSCYAMINE ELIXIR 10 ML, CIMETIDINE HCL 300 MG PO STA ×6 (11:59→13:01)
--- NOTE | 2016-12-10 13:49 | P.PN ---
Subjective Principal diagnosis: Upper GI bleed and hematemesis and abdominal pain with a history of peptic ulcer disease Patient having some epigastric abdominal pain after having orange juice. No acute events overnight Objective - Vital Signs Vital signs: Vital Signs Temp 97.6 F 12/10/16 07:00 Pulse 61 12/10/16 08:00 Resp 18 12/10/16 08:00 BP 145/70 12/10/16 07:00 Pulse Ox 94 L 12/10/16 07:00 Intake & Output 12/09/16 12/10/16 12/10/16 18:59 06:59 18:59 Intake Total 500 750 Balance 500 750 Weight 86.636 kg 86.636 kg Intake: IV 500 Invasive Line 1 500 Intake, IV Titration 750 Amount Sodium Chloride 0.9% 1, 750 000 ml @ 125 mls/hr IV . Q8H [facility] Rx#:[id number] Other: Voiding Method Toilet # Voids 3 2 - Exam Constitutional: No acute distress, conversant, pleasant Eyes: Anicteric sclerae, moist conjunctiva, no lid-lag, PERRLA ENMT: NC/AT,Oropharynx clear, no erythema, exudates Neck:Supple, FROM, no masses, or JVD, No carotid bruits; No thyromegaly Lungs: Clear to auscultation, Clear to percussion, Normal respiratory effort, no accessory muscle use Cardiovascular: Heart regular in rate and rhythm, No murmurs, gallops, or rubs no peripheral edema Abdominal: Tender to palpation in the epigastrium, nom distended, no guarding, no rebound or rigidity, Normoactive bowel sounds No hepatomegaly, No splenomegaly, No palpable mass No abdominal wall hernia noted Skin: Normal temperature, tone, texture, turgor, No induration No subcutaneous nodules, No rash, lesions, No ulcers Extremities:No digital cyanosis No clubbing, Pedal pulses intact and symmetrical Radial pulses intact and symmetrical Normal gait and station, No calf tenderness Psychiatric: Alert and oriented to person, place and time, Appropriate affect Intact judgement Neuro: Muscles Strength 5/5 in all 4 extremities, Sensation to light touch grossly present throughout, Cranial nerves II-XII grossly intact. No focal sensory deficits - Labs CBC & Chem 7: 12/10/16 06:47 12/10/16 06:47 Labs: Abnormal Lab Results - Last 24 Hours (Table) 12/09/16 12/09/16 12/09/16 Range/Units 17:55 17:55 17:55 RBC 3.08 L (3.80-5.40) m/uL Hgb 9.4 L (11.4-16.0) gm/dL Hct 28.6 L (34.0-46.0) % RDW 17.2 H (11.5-15.5) % INR (<1.2) Sodium 131 L (137-145) mmol/L Carbon Dioxide 20 L (22-30) mmol/L BUN 18 H (7-17) mg/dL Calcium (8.4-10.2) mg/dL Iron (37-170) ug/dL % Saturation (20-50) % Total Creatine Kinase 260 H (30-135) U/L Total Protein 6.2 L (6.3-8.2) g/dL Triglycerides (<150) mg/dL HDL Cholesterol (40-60) mg/dL TSH (0.465-4.680) mIU/L 12/09/16 12/10/16 12/10/16 Range/Units 17:55 06:47 06:47 RBC 3.10 L (3.80-5.40) m/uL Hgb 9.3 L (11.4-16.0) gm/dL Hct 29.3 L (34.0-46.0) % RDW 17.0 H (11.5-15.5) % INR 1.2 H (<1.2) Sodium 133 L (137-145) mmol/L Carbon Dioxide (22-30) mmol/L BUN (7-17) mg/dL Calcium 8.3 L (8.4-10.2) mg/dL Iron 24 L (37-170) ug/dL % Saturation 8.0 L (20-50) % Total Creatine Kinase (30-135) U/L Total Protein (6.3-8.2) g/dL Triglycerides 256 H (<150) mg/dL HDL Cholesterol 33 L (40-60) mg/dL TSH 59.400 H (0.465-4.680) mIU/L Assessment and Plan Plan: Upper GI bleed * Hg stable at 9.3, h/o PUD possibly due to bleeding ulcer * GI planning EGD tomorrow * Continue with IV PPI therapy epigastric pain * Epigastric pain after having orange juice, will give GI cocktail change clear liquid diet to Jordy Very mild hematemesis * -No reported constipation, no leukocytosis * CT abd/pelvis shows no acute abnormality Acute on chronic normocytic anemia * -Possibly related to above * -Pending iron studies Hypercholesterolemia * -LDL above 200 on May, pending lipid panel * -On simvastatin, may need stronger statin Hypothyroidism, history of laryngeal cancer -Onset thyroid, TSH level above 100 on August * -TSH elevated at 54. check Free T3/T4 Hypertension, history of * -Home lisinopril History of CAD with stents * -No aspirin given PUD * -Not on beta blockers, to be reassessed as an outpatient disposition * continue to monitor
[2016-12-10] MEDS: ACETAMINOPHEN TAB 325 MG TAB PO PRN ×2 (14:52→22:57)
--- NOTE | 2016-12-10 15:15 | CONS ---
CONSULTATION REASON FOR CONSULTATION: GI bleed. HISTORY OF PRESENT ILLNESS: The patient is a 71-year-old, pleasant white female, who was admitted the hospital yesterday when she presented with lower abdominal pain associated with nausea, vomiting, and had one small episode of coffee-grounds emesis. She has not been feeling well for the last 2 days. The pain has been progressively getting worse. She denies any change in her bowel habits. She has some pain in the epigastric area also. Denies any fever, chills or night sweats. Denies any recent NSAID use. The patient underwent an upper endoscopy by me in September of 2016 and was noted to have 2 superficial ulcerations at the anastomosis from the previous gastric bypass surgery. Since then, she has been on Prilosec 20 mg daily. The patient said she has been doing well. In fact she was scheduled to have an outpatient upper endoscopy in two weeks from now; however, in the mean time because of her ongoing symptoms, she was admitted to the hospital for further evaluation. PAST MEDICAL HISTORY: Significant for coronary artery disease, history of CVA in the past, GERD, hypertension, morbid obesity, chronic renal insufficiency, peptic ulcer disease, coronary artery disease, degenerative joint disease. PAST SURGICAL HISTORY: Bilateral cataract surgery, cholecystectomy and gastric bypass surgery, cardiac cath, hysterectomy, tonsillectomy. MEDICATIONS: Medications at home include Zestril, Neurontin, Matthews, Synthroid, omeprazole, Zocor. ALLERGIES: None. SOCIAL HISTORY: No smoking. No alcohol use. FAMILY HISTORY: Father had OR. Mother had diabetes mellitus and hypertension. Brother had some kind of cancer. REVIEW OF SYSTEMS: CARDIOPULMONARY: No chest pain, shortness of breath. GENITOURINARY: No dysuria, hematuria. MUSCULOSKELETAL: Unremarkable. SKIN: Unremarkable. ENDOCRINE: Unremarkable. PSYCHIATRIC: Unremarkable NEUROLOGICAL: Unremarkable. ENT/VISION: Unremarkable. CONSTITUTIONAL: No recent weight loss. No fevers, chills or night sweats. PHYSICAL EXAMINATION: Blood pressure 112/54, pulse is 73, temperature 98. HEENT examination unremarkable. Conjunctivae pink. Sclerae anicteric. Oral cavity, no lesions. Neck: No jugular venous distention or lymph node enlargement. Chest was clear to auscultation. Heart: Regular rate and rhythm. ABDOMEN: Soft. Bowel sounds are positive. No organomegaly. EXTREMITIES: No pedal edema. SKIN: No rashes. Neuro: Alert and oriented x3. No focal deficits. LAB DATA: Labs at time of admission to the hospital: WBC 7.4, hemoglobin 9.4, platelets of 435. PT/INR is within normal limits. Basic metabolic panel is also within normal limits. Today hemoglobin is 9.3. Stool for occult blood is negative. IMPRESSION: 1. Lower abdominal pain for the last 2 days duration associated with nausea, vomiting and episode of coffee-grounds emesis. Her hemoglobin is stable at 9.4 g/dL. Clinically she has mild tenderness in the left lower quadrant area. The patient is already scheduled for CT abdomen and pelvis for which she is going this morning. Rule out possibility of diverticulitis. 2. History of peptic ulcer disease. The patient had upper endoscopy done in September 2016 and was noted to have two small 1 cm ulcerations of the anastomosis for which she has been maintained on Prilosec 20 mg daily and in fact is scheduled for an outpatient EGD in two weeks. RECOMMENDATIONS: 1. Agree with CT of the abdomen and pelvis. 2. Continue IV Protonix. 3. Start on clear liquid diet. 4. We will proceed with upper endoscopy tomorrow. 5. We will follow the patient closely during her hospital stay. Thank you for the consultation. MMIONAL / IJN: [id number] /
[2016-12-11] MEDS: HYDROmorphone 1 MG/ML 1 ML SYRINGE IVP PRN ×2 (06:19→09:08)
[2016-12-11] MEDS ORDERED: IV FLUID CONTINUATION 1,000 ML IV ONE (08:02)
[2016-12-11] MEDS ORDERED: LIDOCAINE 1% INJ 10MG/ML (20 ML MDV) ONE (08:05)
[2016-12-11] MEDS ORDERED: PROPOFOL 10 MG/ML 20 ML VIAL IV ONE (08:05)
--- NOTE | 2016-12-11 08:16 | P.PCN ---
Date of Procedure: 12/11/16 Preoperative Diagnosis: Postoperative Diagnosis: Procedure(s) Performed: BRIEF HISTORY: Patient is a 71-year-old, pleasant, white female, scheduled for an upper endoscopy as a part of evaluation of acute GI bleed. She presented to the hospital with abdominal pain, nausea and vomiting and some coffee-ground emesis. She had an upper endoscopy done by me in September 2016 and was noted to have 2 anastomotic ulcers at the Suzanna-en-Y anastomosis and the previous gastric bypass surgery measuring 1 cm in size. The patient since has been on Prilosec 20 mg daily.. PROCEDURE PERFORMED: Esophagogastroduodenoscopy with biopsy. PREOPERATIVE DIAGNOSIS: Nausea vomiting and coffee-ground emesis. IV sedation per anesthesia. PROCEDURE: After informed consent was obtained, the patient was brought into the endoscopy unit. IV sedation was administered by Anesthesia under continuous monitoring. Initially the Olympus GIF-140 video endoscope was inserted into the mouth. Esophagus intubated without any difficulty. It was gradually advanced into the stomach and the gastric pouch appeared normal. The Suzanna-en-Y anastomosis was identified from the previous gastric bypass surgery. At the anastomosis there were 2 ulcerations measuring 1 cm and 1.5 cm in size with no active bleeding. The scope was then advanced into the jejunum which appeared entirely normal. At this time the scope was withdrawn into the gastric pouch that appeared normal. Biopsies were done from anastomotic ulcers. Retroflexion was performed and cardia and the fundus appeared normal. The scope was then withdrawn into the esophagus. Small hiatal hernia noted. The GE junction was located at 39 cm from the incisors. The esophagus appeared normal. There were no erosions or ulcerations seen and the patient tolerated the procedure well. IMPRESSION: 1. 2 anastomotic ulcers measuring 1 cm and 1.5 cm with no active bleeding. 2. Small hiatal hernia. RECOMMENDATIONS: The findings of this examination were discussed with the patient . At this time will await the biopsy results. She was advised to increase the Prilosec to 20 mg twice daily for 4 months and then will plan a repeat upper endoscopy to ensure ulcer healing. Implants: Indications for Procedure: Operative Findings: Description of Procedure:
[2016-12-11] MEDS: PANTOPRAZOLE 40 MG/10 ML VIAL IV SCH (09:08)
[2016-12-11] MEDS: LISINOPRIL 10 MG TAB PO SCH (09:08)
[2016-12-11] MEDS: ATORVASTATIN 10 MG TAB PO SCH (09:09)
[2016-12-11] MEDS: LEVOTHYROXINE 100 MCG TAB PO SCH (09:09)
[2016-12-11] MEDS: GABAPENTIN 300 MG CAP PO SCH (09:09)
[2016-12-11] MEDS: HEPARIN SODIUM,PORCINE 5,000 UNIT/ML 1 ML VIAL SQ SCH (09:09)
[2016-12-11] MEDS: SODIUM CHLORIDE 0.9% 1,000 ML IV SCH ×2 (09:14→16:29)
[2016-12-11 09:17] VITALS: RESP 18; TEMP 97.5
[2016-12-11 09:24] LABS: Anisocytosis Slight; Basophils % (A) 1 %; CHCM 32.8; Eosinophils # (A) 0.2 k/uL (0-0.7); Eosinophils % (A) 4 %; HCT 28.9 % (34.0-46.0); HDW 2.85; HGB 9.1 gm/dL (11.4-16.0); Luc # (Auto) 0.15; Luc % (Auto) 3; Lymphocytes # (A) 1.2 k/uL (1.0-4.8); Lymphocytes % (A) 21 %; MCH 30.1 pg (25.0-35.0); MCHC 31.6 g/dL (31.0-37.0); Mean Platelet Volume 7.3; Monocytes # (A) 0.3 k/uL (0-1.0); Monocytes % (A) 5 %; Neutrophils # (A) 3.9 k/uL (1.3-7.7); Neutrophils % (A) 67 %; RBC 3.04 m/uL (3.80-5.40); RDW 17.5 % (11.5-15.5); WBC 5.8 k/uL (3.8-10.6); WBC (Perox) 6.05
--- NOTE | 2016-12-11 15:10 | P.DS ---
Providers Date of admission: 12/09/16 21:19 Expected date of discharge: 12/11/16 Attending physician: MD Cisco Hayes Chad, MD Consults: Hoda Beasley Primary care physician: Xin Hernández MD - Discharge Diagnosis(es) (1) Upper GI bleed Current Visit: Yes Status: Acute (2) Peptic ulcer disease Current Visit: Yes Status: Acute (3) Hypothyroidism Current Visit: Yes Status: Chronic (4) Acute blood loss anemia Current Visit: No Status: Acute Hospital Course: The patient is a 71-year-old female past medical history of gastric bypass scented with hematemesis & epigastric pain due to upper GI bleed due to peptic ulcer disease anemia hemoglobin of 9.3. Her workup included a CT abdomen and pelvis negative for any acute intra-abdominal pathology, she was started on IV Protonix, made nothing by mouth and GI was consulted to perform an EGD showed two anastomotic ulcers measuring 1 cm and 1.5 cm respectively. Her hemoglobin remained stable, ulcers did not appear to be bleeding on EGD. Her diet was advanced soft GI diet which she was tolerating a time of discharge , she was instructed to take Prilosec 20 mg by mouth twice a day for the next 4 months and recommended for follow-up EGD, her Synthroid was titrated up to 112 mcg by mouth daily was discharged home in stable condition and told to follow- up with her primary care physician Dr. Hernández. This discharge process took less than 30 minutes Patient Condition at Discharge: Good Plan - Discharge Summary New Discharge Prescriptions: New Levothyroxine Sodium [Synthroid] 112 mcg PO DAILY #30 tab Lisinopril [Zestril] 10 mg PO DAILY #30 tab Continue Lisinopril [Zestril] 10 mg PO DAILY Gabapentin [Neurontin] 300 mg PO BID Simvastatin [Zocor] 20 mg PO DAILY HYDROcodone/APAP 5-325MG [[place] 5-325] 1 tab PO Q6HR PRN PRN Reason: Pain Changed Omeprazole 20 mg PO BID #60 Discontinued Levothyroxine Sodium [Synthroid] 100 mcg PO DAILY Discharge Medication List Lisinopril [Zestril] 10 mg PO DAILY 09/11/16 [History] Gabapentin [Neurontin] 300 mg PO BID 12/09/16 [History] HYDROcodone/APAP 5-325MG [[place] 5-325] 1 tab PO Q6HR PRN 12/09/16 [History] Simvastatin [Zocor] 20 mg PO DAILY 12/09/16 [History] Levothyroxine Sodium [Synthroid] 112 mcg PO DAILY #30 tab 12/11/16 [Rx] Lisinopril [Zestril] 10 mg PO DAILY #30 tab 12/11/16 [Rx] Omeprazole 20 mg PO BID #60 12/11/16 [Rx] Follow up Appointment(s)/Referral(s): Xin Hernández MD [Primary Care Provider] - 1-2 days Hoda Beasley MD [STAFF PHYSICIAN] - 3 Weeks Discharge Disposition: HOME SELF-CARE
[2016-12-11 15:55] VITALS: BP 93/54; PULSE 73
[2016-12-11] MEDS: ACETAMINOPHEN TAB 325 MG TAB PO PRN (20:38)
== END 2016-12-11 22:30 | disposition home or self-care (01) | DRG 378 ==
LOC: EC 17:40 → 5MS5E 21:19
PROVIDERS: ADMIT Internal Medicine; ATTEND Internal Medicine
PROC: 0DB68ZX Excision of Stomach, Via Natural or Artificial Opening Endoscopic, Diagnostic (ICD-10-PCS; 2016-12-11)
PROC: 0DBA8ZX Excision of Jejunum, Via Natural or Artificial Opening Endoscopic, Diagnostic (ICD-10-PCS; principal; 2016-12-11 10:45)
DX: K28.4 Chronic or unspecified gastrojejunal ulcer with hemorrhage (principal); D62 Acute posthemorrhagic anemia; E87.1 Hypo-osmolality and hyponatremia; I12.9 Hypertensive chronic kidney disease with stage 1 through stage 4 chronic kidney disease, or unspecified chronic kidney disease; E03.9 Hypothyroidism, unspecified; E78.00 Pure hypercholesterolemia, unspecified; F41.9 Anxiety disorder, unspecified; I25.10 Atherosclerotic heart disease of native coronary artery without angina pectoris; J42 Unspecified chronic bronchitis; K21.9 Gastro-esophageal reflux disease without esophagitis; K44.9 Diaphragmatic hernia without obstruction or gangrene; N18.9 Chronic kidney disease, unspecified; E66.01 Morbid (severe) obesity due to excess calories; G89.29 Other chronic pain; H26.9 Unspecified cataract; M19.90 Unspecified osteoarthritis, unspecified site; M54.9 Dorsalgia, unspecified; K57.90 Diverticulosis of intestine, part unspecified, without perforation or abscess without bleeding; Z79.899 Other long term (current) drug therapy; Z85.21 Personal history of malignant neoplasm of larynx; Z95.5 Presence of coronary angioplasty implant and graft; Z96.653 Presence of artificial knee joint, bilateral; Z87.891 Personal history of nicotine dependence; Z91.19 Patient's noncompliance with other medical treatment and regimen; Z98.84 Bariatric surgery status; Z82.49 Family history of ischemic heart disease and other diseases of the circulatory system
CPT/HCPCS: 36415; 43239; 71020; 74177; 80048; 80053; 80061; 81003; 82140; 82272; 82550; 82553; 82728; 83540; 83550; 83605; 83690; 83735; 83880; 84100; 84439; 84443; 84481; 84484; 85025; 85610; 85730; 86850; 86900; 86901; 88305; 88342; 93005; 96361; 96374; 96375; 99285

== ENCOUNTER 2016-12-12 13:44 | Emergency (ER) | payer MEDICARE ==
[2016-12-12] MEDS ORDERED: MORPHINE SULFATE 4 MG/ML SYRINGE IVP STA (14:01)
[2016-12-12] MEDS ORDERED: SODIUM CHLORIDE 0.9% 1,000 ML IV ONE (14:01)
[2016-12-12] MEDS ORDERED: ONDANSETRON 4 MG/2 ML VIAL IVP STA (14:01)
[2016-12-12] MEDS ORDERED: FAMOTIDINE 20 MG/2 ML VIAL IV STA (14:01)
--- NOTE | 2016-12-12 14:41 | ED ---
Abdominal Pain HPI - General Chief Complaint: Abdominal Pain Stated Complaint: abdominal pain-revisit Time Seen by Provider: 12/12/16 13:48 Source: patient Mode of arrival: wheelchair Limitations: no limitations - History of Present Illness Initial Comments: This is a 71-year-old female to history of gastric bypass and peptic ulcer disease who presents emergency department for abdominal pain. She states that it started suddenly after eating one bite of a hot dog with ketchup. She states that the pain seems to be epigastric and periumbilical. It is not radiating to her back. She states that it feels similar to when she presented to the hospital earlier in the week. She was diagnosed at that time with 2 ulcerations at the anastomosis of her gastric bypass. These were nonbleeding. She started on Prilosec at that time. Dr. Beasley is following with her for this as an outpatient. Patient denies any diarrhea. No constipation. She feels nauseated and is having dry heaves there is no blood in the vomit area no dysuria or hematuria. No malaise. - Related Data Home Medications Medication Instructions Recorded Confirmed Lisinopril [Zestril] 10 mg PO DAILY 09/11/16 12/12/16 Gabapentin [Neurontin] 300 mg PO BID 12/09/16 12/12/16 HYDROcodone/APAP 5-325MG [Max 1 tab PO Q6HR PRN 12/09/16 12/12/16 5-325] Simvastatin [Zocor] 20 mg PO DAILY 12/09/16 12/12/16 Levothyroxine Sodium [Synthroid] 100 mcg PO DAILY 12/12/16 12/12/16 Omeprazole [PriLOSEC] 40 mg PO DAILY 12/12/16 12/12/16 Previous Rx's Medication Instructions Recorded Sucralfate [Carafate] 1 gm PO ACHS #414 ml 12/12/16 Allergies Allergy/AdvReac Type Severity Reaction Status Date / Time No Known Allergies Allergy Verified 12/12/16 14:11 Review of Systems ROS Statement: Those systems with pertinent positive or pertinent negative responses have been documented in the HPI. ROS Other: All systems not noted in ROS Statement are negative. Past Medical History Past Medical History: Coronary Artery Disease (CAD), Cancer, Chest Pain / Angina , CVA/TIA, Eye Disorder, GERD/Reflux, Hypertension, Renal Disease Additional Past Medical History / Comment(s): Peptic ulcer disease, coronary artery disease ,chronic back pain, osteoarthritis, laryngeal cancer with a previous radiation therapy, TIA back in 2013, chronic bronchitis, head injury back in 2012, cataracts bilateral, hypertension. History of Any Multi-Drug Resistant Organisms: None Reported Past Surgical History: Bariatric Surgery, Cholecystectomy, Heart Catheterization , Heart Catheterization With Stent, Hysterectomy, Joint Replacement, Orthopedic Surgery, Tonsillectomy Additional Past Surgical History / Comment(s): PCIs with stents (total of 4 stents), bilateral knee replacement, left shoulder rotator cuff surgery, gastric bypass, D&C, EGD/colonoscopy, laryngeal tumor removed. Past Anesthesia/Blood Transfusion Reactions: No Reported Reaction Date of Last Stent Placement:: 2012 Past Psychological History: Anxiety Smoking Status: Former smoker Past Alcohol Use History: None Reported Past Drug Use History: None Reported - Past Family History Mother Family Medical History: Cancer, Congestive Heart Failure (CHF), Diabetes Mellitus, Hypertension Additional Family Medical History / Comment(s): mother passed at 93. Father Family Medical History: Myocardial Infarction (ND) Additional Family Medical History / Comment(s): Father of a ND at the age of 39yrs. Sister(s) Family Medical History: Cancer Brother(s) Family Medical History: Cancer General Exam - General Exam Comments Initial Comments: Constitutional: Awake alert appears uncomfortable Head: Normocephalic atraumatic Eyes: no conjunctival injection No scleral icterus EOMI Neck: No JVD Supple Heart: Regular rate rhythm normal S1-S2 no murmurs Lungs: Clear to auscultation bilaterally No wheezing No rales Abdomen: Soft nondistended tenderness to palpation in the epigastric region without rebound or guarding Extremities: Non edematous DP pulses intact Radial pulses intact Neuro: A&Ox3 No focal neurologic deficits Psych: Appropriate mood and affect Limitations: no limitations Course Vital Signs 12/12/16 12/12/16 12/12/16 13:44 14:46 16:08 Temperature 97.0 F L Pulse Rate 89 77 73 Respiratory 18 20 18 Rate Blood Pressure 129/86 171/72 159/77 O2 Sat by Pulse 97 98 97 Oximetry 12/12/16 17:04 Temperature 97.8 F Pulse Rate 71 Respiratory Rate Blood Pressure 176/76 O2 Sat by Pulse 97 Oximetry - Reevaluation(s) Reevaluation #1: 12/12/16 14:47 EKG showing sinus rhythm with a rate of 84. No systemic changes or T-wave inversions. QTC is 460. Other intervals are normal. No ectopy. Medical Decision Making - Medical Decision Making This is a 71-year-old female who presents emergency department for epigastric abdominal pain after eating a hot dog. She had an extensive workup done including a CTA of her abdomen and pelvis which was unremarkable for any acute findings. Blood work was also unremarkable. The patient felt improved after medications. At this time I feel the patient's symptoms are likely from known ulcers at the gastric anastomosis. I told her to continue taking the Prilosec. I'm going to add Carafate. She is to follow up with Dr. Rocha as soon as possible for reevaluation. She can return emergency Department if she has worsening or changing symptoms. All questions were answered. - Lab Data Result diagrams: 12/12/16 14:18 12/12/16 14:18 Lab Results 12/12/16 12/12/16 12/12/16 Range/Units 14:18 14:18 14:18 WBC 4.1 (3.8-10.6) k/uL RBC 3.11 L (3.80-5.40) m/uL Hgb 9.4 L (11.4-16.0) gm/dL Hct 29.1 L (34.0-46.0) % MCV 93.5 (80.0-100.0) fL MCH 30.2 (25.0-35.0) pg MCHC 32.3 (31.0-37.0) g/dL RDW 17.3 H (11.5-15.5) % Plt Count 412 (150-450) k/uL Neutrophils % 53 % Lymphocytes % 33 % Monocytes % 6 % Eosinophils % 3 % Basophils % 1 % Neutrophils # 2.2 (1.3-7.7) k/uL Lymphocytes # 1.4 (1.0-4.8) k/uL Monocytes # 0.3 (0-1.0) k/uL Eosinophils # 0.1 (0-0.7) k/uL Basophils # 0.0 (0-0.2) k/uL Anisocytosis Slight Sodium 135 L (137-145) mmol/L Potassium 4.6 (3.5-5.1) mmol/L Chloride 105 (98-107) mmol/L Carbon Dioxide 20 L (22-30) mmol/L Anion Gap 10 mmol/L BUN 9 (7-17) mg/dL Creatinine 0.71 (0.52-1.04) mg/dL Est GFR (MDRD) Af Amer >60 (>60 ml/min/1.73 sqM) Est GFR (MDRD) Non-Af >60 (>60 ml/min/1.73 sqM) Glucose 103 H (74-99) mg/dL Plasma Lactic Acid Anthony (0.7-2.0) mmol/L Calcium 8.6 (8.4-10.2) mg/dL Magnesium 2.0 (1.6-2.3) mg/dL Total Bilirubin 0.5 (0.2-1.3) mg/dL AST 26 (14-36) U/L ALT 24 (9-52) U/L Alkaline Phosphatase 82 (38-126) U/L Total Protein 6.4 (6.3-8.2) g/dL Albumin 3.6 (3.5-5.0) g/dL Amylase <30 L (30-110) U/L Lipase 96 (23-300) U/L Urine Color Urine Appearance (Clear) Urine pH (5.0-8.0) Ur Specific [place] (1.001-1.035) Urine Protein (Negative) Urine Glucose (UA) (Negative) Urine Ketones (Negative) Urine Blood (Negative) Urine Nitrite (Negative) Urine Bilirubin (Negative) Urine Urobilinogen (<2.0) mg/dL Ur Leukocyte Esterase (Negative) 12/12/16 12/12/16 Range/Units 14:18 14:25 WBC (3.8-10.6) k/uL RBC (3.80-5.40) m/uL Hgb (11.4-16.0) gm/dL Hct (34.0-46.0) % MCV (80.0-100.0) fL MCH (25.0-35.0) pg MCHC (31.0-37.0) g/dL RDW (11.5-15.5) % Plt Count (150-450) k/uL Neutrophils % % Lymphocytes % % Monocytes % % Eosinophils % % Basophils % % Neutrophils # (1.3-7.7) k/uL Lymphocytes # (1.0-4.8) k/uL Monocytes # (0-1.0) k/uL Eosinophils # (0-0.7) k/uL Basophils # (0-0.2) k/uL Anisocytosis Sodium (137-145) mmol/L Potassium (3.5-5.1) mmol/L Chloride (98-107) mmol/L Carbon Dioxide (22-30) mmol/L Anion Gap mmol/L BUN (7-17) mg/dL Creatinine (0.52-1.04) mg/dL Est GFR (MDRD) Af Amer (>60 ml/min/1.73 sqM) Est GFR (MDRD) Non-Af (>60 ml/min/1.73 sqM) Glucose (74-99) mg/dL Plasma Lactic Acid Anthony 2.3 H* (0.7-2.0) mmol/L Calcium (8.4-10.2) mg/dL Magnesium (1.6-2.3) mg/dL Total Bilirubin (0.2-1.3) mg/dL AST (14-36) U/L ALT (9-52) U/L Alkaline Phosphatase (38-126) U/L Total Protein (6.3-8.2) g/dL Albumin (3.5-5.0) g/dL Amylase (30-110) U/L Lipase (23-300) U/L Urine Color Light Yellow Urine Appearance Clear (Clear) Urine pH 8.0 (5.0-8.0) Ur Specific [place] 1.005 (1.001-1.035) Urine Protein Negative (Negative) Urine Glucose (UA) Negative (Negative) Urine Ketones Negative (Negative) Urine Blood Negative (Negative) Urine Nitrite Negative (Negative) Urine Bilirubin Negative (Negative) Urine Urobilinogen <2.0 (<2.0) mg/dL Ur Leukocyte Esterase Negative (Negative) Disposition Clinical Impression: Epigastric pain Disposition: HOME SELF-CARE Condition: Stable Instructions: Abdominal Pain (ED) Prescriptions: Sucralfate [Carafate] 1 gm PO ACHS #414 ml Referrals: Xin Hernández MD [Primary Care Provider] - 1-2 days Hoda Beasley MD [STAFF PHYSICIAN] - 1-2 days
[2016-12-12 14:44] LABS: Anisocytosis Slight; Basophils % (A) 1 %; CH 31.3; CHCM 33.7; Eosinophils # (A) 0.1 k/uL (0-0.7); Eosinophils % (A) 3 %; HCT 29.1 % (34.0-46.0); HGB 9.4 gm/dL (11.4-16.0); Luc # (Auto) 0.15; Luc % (Auto) 4; Lymphocytes # (A) 1.4 k/uL (1.0-4.8); Lymphocytes % (A) 33 %; MCH 30.2 pg (25.0-35.0); MCHC 32.3 g/dL (31.0-37.0); MCV 93.5 fL (80.0-100.0); Mean Platelet Volume 7.5; Monocytes # (A) 0.3 k/uL (0-1.0); Monocytes % (A) 6 %; Neutrophils # (A) 2.2 k/uL (1.3-7.7); Neutrophils % (A) 53 %; RBC 3.11 m/uL (3.80-5.40); RDW 17.3 % (11.5-15.5); WBC 4.1 k/uL (3.8-10.6); WBC (Perox) 3.87
[2016-12-12] MEDS ORDERED: HYDROmorphone 1 MG/ML 1 ML SYRINGE IVP STA (14:46)
[2016-12-12 14:47] LABS: Appearance,Urine Clear (Clear); Bilirubin,Urine Negative (Negative); Glucose,Urine (UA) Negative (Negative); Ketones,Urine Negative (Negative); Leukocyte Esterase,Urine Negative (Negative); Nitrite,Urine Negative (Negative); Protein,Urine Negative (Negative); Specific Gravity,Urine 1.005 (1.001-1.035); UA Billing (MACRO vs. MICRO) CHEM; Urobilinogen,Urine <2.0 mg/dL (<2.0)
[2016-12-12 14:49] LABS: ALT 24 U/L (9-52); AST 26 U/L (14-36); Alkaline Phosphatase 82 U/L (38-126); Anion Gap 10 mmol/L; Blood Urea Nitrogen 9 mg/dL (7-17); Calcium 8.6 mg/dL (8.4-10.2); Carbon Dioxide 20 mmol/L (22-30); Chloride 105 mmol/L (98-107); Glucose 103 mg/dL (74-99); Non-African American GFR(MDRD) >60 (>60 ml/min/1.73 sqM); Potassium 4.6 mmol/L (3.5-5.1); Sodium 135 mmol/L (137-145); Total Bilirubin 0.5 mg/dL (0.2-1.3); Total Protein 6.4 g/dL (6.3-8.2)
--- NOTE | 2016-12-12 14:57 | XR ---
EXAMINATION TYPE: XR abdomen acute w cxr DATE OF EXAM: 12/12/2016 CLINICAL HISTORY: Pain TECHNIQUE: Single frontal view of chest is obtained. Supine and upright views of the abdomen are acq uired. COMPARISON: Chest x-ray 25/10/2016 FINDINGS: The lungs are grossly clear without pleural effusion or pneumothorax. Cardiac silhouette size appears within normal limits. Left shoulder prosthesis is present. Nonspecific small bowel gas is present. Contrast within the colon. Psoas margins are normal. Cholecys tectomy clips in the right upper quadrant. Degenerative changes are within the lumbar spine. No free air is evident. No suspicious differential air-fluid levels are present. Surgical changes are within the epigastric region. IMPRESSION: 1. No acute pulmonary process. 2. Nonspecific abdomen series
[2016-12-12] MEDS ORDERED: RX INFO: IV CONTRAST WAS GIVEN 1 EACH MISC MISCELLANE PRN (15:17)
[2016-12-12 16:10] VITALS: RESP 18
--- NOTE | 2016-12-12 16:29 | CT ---
EXAMINATION TYPE: CT angio abdomen pelvis DATE OF EXAM: 12/12/2016 HISTORY: Generalized pain CT DLP: 2040.2mGycm Automated Exposure Control for Dose Reduction was Utilized. CONTRAST: CT scan of the abdomen and pelvis is performed with IV Contrast, patient injected with 100 mL of Omni paque 350. Three-dimensional reconstructions performed on an alternate workstation. COMPARISON: None. FINDINGS: Aorta shows atheromatous change. The superior mesenteric artery, inferior mesenteric artery , celiac axis, renal arteries are patent. Common iliac, internal and external iliac arteries are howard nt. The common femoral artery, proximal deep and superficial femoral arteries are patent. LUNG BASES: No significant abnormality is appreciated. LIVER/GB: No significant abnormality is appreciated within the liver, gallbladder is absent. PANCREAS: No significant abnormality is seen. SPLEEN: No significant abnormality is seen. ADRENALS: No significant abnormality is seen. KIDNEYS: No significant abnormality is seen. BOWEL: Extensive diverticular change noted within the sigmoid colon, there are calcified diverticula. Postop change noted to the stomach and small bowel. UTERUS/ADNEXA: uterus is absent LYMPH NODES: No greater than 1cm abdominal or pelvic lymph nodes are appreciated. OSSEOUS STRUCTURES: No significant abnormality is seen. OTHER: No significant additional abnormality is seen. IMPRESSION: Patent mesenteric vasculature. Additional findings above.
[2016-12-12] MEDS ORDERED: SUCRALFATE 1 GM TAB PO STA (16:48)
[2016-12-12 17:05] VITALS: BP 176/76; PULSE 71; TEMP 97.8
== END 2016-12-12 17:14 | disposition home or self-care (01) ==
LOC: EC 13:44
DX: R10.13 Epigastric pain (principal); R10.33 Periumbilical pain; R11.2 Nausea with vomiting, unspecified; I25.10 Atherosclerotic heart disease of native coronary artery without angina pectoris; K21.9 Gastro-esophageal reflux disease without esophagitis; I10 Essential (primary) hypertension; F41.9 Anxiety disorder, unspecified; Z86.73 Personal history of transient ischemic attack (TIA), and cerebral infarction without residual deficits; Z85.21 Personal history of malignant neoplasm of larynx; Z87.11 Personal history of peptic ulcer disease; Z87.891 Personal history of nicotine dependence; Z79.899 Other long term (current) drug therapy; Z98.84 Bariatric surgery status
CPT/HCPCS: 36415; 93005; 80053; 82150; 83605; 83690; 83735; 85025; 81003; 74022; 74174; 99285; 96374; 96375 ×3; 96361 ×2; J2270; Q9967; J2405; J1170

== ENCOUNTER 2016-12-17 23:08 | Emergency (ER) | payer MEDICARE ==
[2016-12-17] MEDS ORDERED: ONDANSETRON 4 MG/2 ML VIAL IVP STA (23:43)
[2016-12-17] MEDS ORDERED: SODIUM CHLORIDE 0.9% 500 ML IV STA (23:43)
[2016-12-17] MEDS ORDERED: MORPHINE SULFATE 2 MG/ML SYRINGE IVP STA (23:43)
[2016-12-17] MEDS ORDERED: LISINOPRIL 10 MG TAB PO STA (23:44)
--- NOTE | 2016-12-17 23:47 | ED ---
General Adult HPI - General Chief complaint: Back Pain/Injury Stated complaint: nausea,vomiting Time Seen by Provider: 12/17/16 23:38 Source: patient, EMS, RN notes reviewed Mode of arrival: EMS Limitations: no limitations - History of Present Illness Initial comments: This a 71-year-old female presents emergency department via EMS chief complaint of chronic back pain. Patient states she's had ongoing back pain which she occasionally has epidural procedures for this. Patient denies any new injuries. Patient states the pain is worse with movement and states it's much better at rest. She states that she has no pain that radiates to her abdomen. She states that she talked her primary care physician today who wrote a prescription for pain meds for but states that she did not pick them up. Patient states that her doctor told her come emergency Department if symptoms worsened. Patient states that she's had repeat visits for similar problems. Patient also states that she was out of her blood pressure medication and did not picker/puller her new prescription. Patient states that she feels nauseated from the pain. Patient denies any chest pain, shortness breath, injury to her low back, dysuria, hematuria. She states this is her chronic pain is worse with movement. Patient denies any fevers or chills. Patient states she has no abdominal pain at this time. - Related Data Home Medications Medication Instructions Recorded Confirmed Lisinopril [Zestril] 10 mg PO DAILY 09/11/16 12/17/16 HYDROcodone/APAP 5-325MG [[place] 1 tab PO Q6HR PRN 12/09/16 12/17/16 5-325] Simvastatin [Zocor] 20 mg PO HS 12/09/16 12/17/16 Levothyroxine Sodium [Synthroid] 100 mcg PO DAILY 12/12/16 12/17/16 Omeprazole [PriLOSEC] 40 mg PO DAILY 12/12/16 12/17/16 Allergies Allergy/AdvReac Type Severity Reaction Status Date / Time No Known Allergies Allergy Verified 12/17/16 23:17 Review of Systems ROS Statement: Those systems with pertinent positive or pertinent negative responses have been documented in the HPI. ROS Other: All systems not noted in ROS Statement are negative. Past Medical History Past Medical History: Coronary Artery Disease (CAD), Cancer, Chest Pain / Angina , CVA/TIA, Eye Disorder, GERD/Reflux, Hypertension, Renal Disease Additional Past Medical History / Comment(s): Peptic ulcer disease, coronary artery disease ,chronic back pain, osteoarthritis, laryngeal cancer with a previous radiation therapy, TIA back in 2013, chronic bronchitis, head injury back in 2012, cataracts bilateral, hypertension. History of Any Multi-Drug Resistant Organisms: None Reported Past Surgical History: Bariatric Surgery, Cholecystectomy, Heart Catheterization , Heart Catheterization With Stent, Hysterectomy, Joint Replacement, Orthopedic Surgery, Tonsillectomy Additional Past Surgical History / Comment(s): PCIs with stents (total of 4 stents), bilateral knee replacement, left shoulder rotator cuff surgery, gastric bypass, D&C, EGD/colonoscopy, laryngeal tumor removed. Past Anesthesia/Blood Transfusion Reactions: No Reported Reaction Date of Last Stent Placement:: 2012 Past Psychological History: Anxiety Smoking Status: Former smoker Past Alcohol Use History: None Reported Past Drug Use History: None Reported - Past Family History Mother Family Medical History: Cancer, Congestive Heart Failure (CHF), Diabetes Mellitus, Hypertension Additional Family Medical History / Comment(s): mother passed at 93. Father Family Medical History: Myocardial Infarction (AK) Additional Family Medical History / Comment(s): Father of a AK at the age of 39yrs. Sister(s) Family Medical History: Cancer Brother(s) Family Medical History: Cancer General Exam Limitations: no limitations General appearance: alert, in no apparent distress Respiratory exam: Present: normal lung sounds bilaterally. Absent: respiratory distress, wheezes, rales, rhonchi, stridor Cardiovascular Exam: Present: regular rate, normal rhythm, normal heart sounds. Absent: systolic murmur, diastolic murmur, rubs, gallop, clicks GI/Abdominal exam: Present: soft, normal bowel sounds. Absent: distended, tenderness, guarding, rebound, rigid Back exam: Present: full ROM, tenderness (Mild diffuse lumbar tenderness). Absent: CVA tenderness (R), CVA tenderness (L) Neurological exam: Present: alert, oriented X3, CN II-XII intact Skin exam: Present: warm, dry, intact, normal color. Absent: rash Course Vital Signs 12/17/16 12/17/16 12/18/16 23:12 23:14 00:00 Temperature 97.7 F 97.7 F Pulse Rate 85 72 74 Respiratory 18 18 20 Rate Blood Pressure 202/83 203/83 180/81 O2 Sat by Pulse 96 96 97 Oximetry 12/18/16 00:47 Temperature Pulse Rate 78 Respiratory 18 Rate Blood Pressure 156/66 O2 Sat by Pulse 100 Oximetry Medical Decision Making - Medical Decision Making 71-year-old female presented for right back pain. This pain is reproducible and worse with movement. Patient is improved after pain medication. Patient was out of her blood pressure medication though she has a prescription at the pharmacy for this. Patient will be discharged and advised follow with PCP tomorrow return parameters were discussed. - Lab Data Result diagrams: 12/17/16 23:55 12/17/16 23:55 Lab Results 12/17/16 12/17/16 12/17/16 Range/Units 23:55 23:55 23:55 WBC 5.0 (3.8-10.6) k/uL RBC 3.01 L (3.80-5.40) m/uL Hgb 9.1 L (11.4-16.0) gm/dL Hct 28.2 L (34.0-46.0) % MCV 93.7 (80.0-100.0) fL MCH 30.2 (25.0-35.0) pg MCHC 32.3 (31.0-37.0) g/dL RDW 16.7 H (11.5-15.5) % Plt Count 350 (150-450) k/uL Sodium 136 L (137-145) mmol/L Potassium 3.7 (3.5-5.1) mmol/L Chloride 109 H (98-107) mmol/L Carbon Dioxide 19 L (22-30) mmol/L Anion Gap 8 mmol/L BUN 17 (7-17) mg/dL Creatinine 0.80 (0.52-1.04) mg/dL Est GFR (MDRD) Af Amer >60 (>60 ml/min/1.73 sqM) Est GFR (MDRD) Non-Af >60 (>60 ml/min/1.73 sqM) Glucose 98 (74-99) mg/dL Calcium 8.2 L (8.4-10.2) mg/dL Total Bilirubin 0.3 (0.2-1.3) mg/dL AST 27 (14-36) U/L ALT 37 (9-52) U/L Alkaline Phosphatase 79 (38-126) U/L Total Protein 6.1 L (6.3-8.2) g/dL Albumin 3.4 L (3.5-5.0) g/dL Amylase <30 L (30-110) U/L Lipase 113 (23-300) U/L Urine Color Yellow Urine Appearance Clear (Clear) Urine pH 6.0 (5.0-8.0) Ur Specific [place] 1.023 (1.001-1.035) Urine Protein Trace H (Negative) Urine Glucose (UA) Negative (Negative) Urine Ketones Negative (Negative) Urine Blood Trace H (Negative) Urine Nitrite Negative (Negative) Urine Bilirubin Negative (Negative) Urine Urobilinogen 2.0 (<2.0) mg/dL Ur Leukocyte Esterase Negative (Negative) Urine WBC 1 (0-5) /hpf Ur Squamous Epith Cells 1 (0-4) /hpf Urine Bacteria Rare H (None) /hpf Urine Mucus Rare H (None) /hpf Disposition Clinical Impression: Chronic back pain, Anemia Disposition: HOME SELF-CARE Condition: Stable Instructions: Chronic Back Pain (ED) Additional Instructions: Please return to the Emergency Department if symptoms worsen or any other concerns. Referrals: Xin Hernández MD [Primary Care Provider] - 1-2 days Time of Disposition: 01:05
[2016-12-18 00:18] LABS: ALT 37 U/L (9-52); AST 27 U/L (14-36); Alkaline Phosphatase 79 U/L (38-126); Amylase <30 U/L (30-110); Anion Gap 8 mmol/L; Anisocytosis Slight; Aty Lym Flag Slight; Blood Urea Nitrogen 17 mg/dL (7-17); CH 30.2; CHCM 32.4; Calcium 8.2 mg/dL (8.4-10.2); Carbon Dioxide 19 mmol/L (22-30); Chloride 109 mmol/L (98-107); Glucose 98 mg/dL (74-99); HCT 28.2 % (34.0-46.0); HDW 3.11; HGB 9.1 gm/dL (11.4-16.0); Hypochromasia Slight; MCH 30.2 pg (25.0-35.0); MCHC 32.3 g/dL (31.0-37.0); MCV 93.7 fL (80.0-100.0); Mean Platelet Volume 6.7; Non-African American GFR(MDRD) >60 (>60 ml/min/1.73 sqM); Potassium 3.7 mmol/L (3.5-5.1); RBC 3.01 m/uL (3.80-5.40); RDW 16.7 % (11.5-15.5); Sodium 136 mmol/L (137-145); Total Bilirubin 0.3 mg/dL (0.2-1.3); Total Protein 6.1 g/dL (6.3-8.2)
[2016-12-18 00:19] LABS: Appearance,Urine Clear (Clear); Bacteria,Urine Rare /hpf; Bilirubin,Urine Negative (Negative); Glucose,Urine (UA) Negative (Negative); Ketones,Urine Negative (Negative); Leukocyte Esterase,Urine Negative (Negative); Mucus,Urine Rare /hpf; Nitrite,Urine Negative (Negative); Particle Count 1375; Protein,Urine Trace (Negative); Specific Gravity,Urine 1.023 (1.001-1.035); Squamous Epithelial Cell,Urine 1 /hpf (0-4); UA Billing (MACRO vs. MICRO) MICRO; WBC,Urine 1 /hpf (0-5)
[2016-12-18 00:49] VITALS: RESP 18
[2016-12-18] MEDS ORDERED: MORPHINE SULFATE 4 MG/ML SYRINGE IVP STA (00:57)
[2016-12-18 01:10] LABS: Add Differential Manual Differential
[2016-12-18 01:14] LABS: Band Neutrophils % 2 %; Nucleated Red Blood Cells 0 /100 WBC (0-0); Total Cells Counted 100
[2016-12-18 01:16] LABS: Polychromasia Present
--- NOTE | 2016-12-18 01:16 | XR ---
EXAM: XR Abdomen, 2View CLINICAL HISTORY: Reason: abdominal pain TECHNIQUE: Frontal supine and upright views of the abdomen/pelvis. COMPARISON: 09/11/16 FINDINGS: Gastrointestinal tract: Nonspecific bowel gas pattern. Moderate amount of stool in the colon. No dilation. No free air under diaphragm Organs: Surgical sutures over left upper quadrant. Cholecystectomy clips. Bones/joints: Moderate upper lumbar scoliosis convexed to right. IMPRESSION: Nonspecific bowel gas pattern. Moderate amount of stool in the colon.
[2016-12-18 01:24] VITALS: BP 145/65; PULSE 75; TEMP 97.6
== END 2016-12-18 01:23 | disposition home or self-care (01) ==
LOC: EC 23:08
DX: M54.5 Low back pain (principal); G89.29 Other chronic pain; D64.9 Anemia, unspecified; R11.0 Nausea; I25.10 Atherosclerotic heart disease of native coronary artery without angina pectoris; K21.9 Gastro-esophageal reflux disease without esophagitis; I10 Essential (primary) hypertension; Z85.21 Personal history of malignant neoplasm of larynx; Z87.891 Personal history of nicotine dependence; Z79.899 Other long term (current) drug therapy
CPT/HCPCS: 99284; 96374; 96375; 96376; 96361; 36415; 80053; 82150; 83690; 85025; 81001; 74000; J2270 ×2; J2405

== ENCOUNTER 2016-12-26 15:55 | Emergency (ER) | payer MEDICARE ==
[2016-12-26] MEDS ORDERED: MORPHINE SULFATE 4 MG/ML SYRINGE IVP STA (17:06)
[2016-12-26] MEDS ORDERED: ONDANSETRON 4 MG/2 ML VIAL IVP STA (17:06)
[2016-12-26] MEDS ORDERED: SODIUM CHLORIDE 0.9% 500 ML IV ONE (17:06)
--- NOTE | 2016-12-26 17:42 | ED ---
Back Pain HPI - General Chief Complaint: Back Pain/Injury Stated Complaint: back pain Time Seen by Provider: 12/26/16 16:59 Source: patient, EMS, RN notes reviewed Mode of arrival: EMS Limitations: no limitations - History of Present Illness Initial Comments: 71-year-old female presents emergency Department with chief complaint of back pain. Patient's been having ongoing back pain currently seen her primary care physician for this back pain. Patient states she has an appointment tomorrow. Patient states that she is post referred to [facility] to manage her back pain. Patient states that she's had multiple ER visits for similar problems. Patient has had extensive workups including lab work, x-rays and CTs. Patient states that one her back pain gets out of control that she gets sick. She states she has she's had some nausea and vomiting today. She denies any abdominal pain patient denies chest pain, shortness breath, headache, dizziness, lower extremity weakness or paresthesias. Patient denies saddle anesthesias, bowel or bladder incontinence or retention. Patient states that her pain is much worse with movement. She states that she did put a back brace on today which has helped her back tremendously. - Related Data Home Medications Medication Instructions Recorded Confirmed Lisinopril [Zestril] 10 mg PO DAILY 09/11/16 12/26/16 HYDROcodone/APAP 5-325MG [[place] 1 tab PO Q6HR PRN 12/09/16 12/26/16 5-325] Simvastatin [Zocor] 20 mg PO HS 12/09/16 12/26/16 Omeprazole [PriLOSEC] 40 mg PO DAILY 12/12/16 12/26/16 Levothyroxine Sodium [Synthroid] 112 mcg PO DAILY 12/26/16 12/26/16 Allergies Allergy/AdvReac Type Severity Reaction Status Date / Time No Known Allergies Allergy Verified 12/26/16 16:57 Review of Systems ROS Statement: Those systems with pertinent positive or pertinent negative responses have been documented in the HPI. ROS Other: All systems not noted in ROS Statement are negative. Past Medical History Past Medical History: Coronary Artery Disease (CAD), Cancer, Chest Pain / Angina , CVA/TIA, Eye Disorder, GERD/Reflux, Hypertension, Renal Disease Additional Past Medical History / Comment(s): Peptic ulcer disease, coronary artery disease ,chronic back pain, osteoarthritis, laryngeal cancer with a previous radiation therapy, TIA back in 2014, chronic bronchitis, head injury back in 2013, cataracts bilateral, hypertension. History of Any Multi-Drug Resistant Organisms: None Reported Past Surgical History: Bariatric Surgery, Cholecystectomy, Heart Catheterization , Heart Catheterization With Stent, Hysterectomy, Joint Replacement, Orthopedic Surgery, Tonsillectomy Additional Past Surgical History / Comment(s): PCIs with stents (total of 4 stents), bilateral knee replacement, left shoulder rotator cuff surgery, gastric bypass, D&C, EGD/colonoscopy, laryngeal tumor removed. Past Anesthesia/Blood Transfusion Reactions: No Reported Reaction Date of Last Stent Placement:: 2012 Past Psychological History: Anxiety Smoking Status: Former smoker Past Alcohol Use History: None Reported Past Drug Use History: None Reported - Past Family History Mother Family Medical History: Cancer, Congestive Heart Failure (CHF), Diabetes Mellitus, Hypertension Additional Family Medical History / Comment(s): mother passed at 93. Father Family Medical History: Myocardial Infarction ([place]) Additional Family Medical History / Comment(s): Father of a [place] at the age of 39yrs. Sister(s) Family Medical History: Cancer Brother(s) Family Medical History: Cancer General Exam Limitations: no limitations General appearance: alert, in no apparent distress Head exam: Present: atraumatic, normocephalic, normal inspection Eye exam: Present: normal appearance, PERRL, EOMI. Absent: scleral icterus, conjunctival injection, periorbital swelling Respiratory exam: Present: normal lung sounds bilaterally. Absent: respiratory distress, wheezes, rales, rhonchi, stridor Cardiovascular Exam: Present: regular rate, normal rhythm, normal heart sounds. Absent: systolic murmur, diastolic murmur, rubs, gallop, clicks GI/Abdominal exam: Present: soft, normal bowel sounds. Absent: distended, tenderness, guarding, rebound, rigid Extremities exam: Present: normal inspection, full ROM, normal capillary refill , other (Lower extremity strength equal bilaterally neurovascular intact refill less than 2 seconds with equal pedal pulses). Absent: tenderness, pedal edema, joint swelling, calf tenderness Back exam: Present: full ROM (Moderate discomfort), tenderness (Mild-to- moderate lumbar region), paraspinal tenderness. Absent: vertebral tenderness Neurological exam: Present: reflexes normal. Absent: motor sensory deficit Skin exam: Present: warm, dry, intact, normal color. Absent: rash Course Vital Signs 12/26/16 16:04 Temperature 98.3 F Pulse Rate 87 Respiratory 22 Rate Blood Pressure 205/87 O2 Sat by Pulse 99 Oximetry Medical Decision Making - Medical Decision Making 71-year-old female presented for back pain. this is an ongoing chronic issue. patient's labwork pressure within normal limits. patient's had several your visits for similar complaints. she states she does feel improved after medications. patient will be discharged patient's pain is in her lumbar region and the reproducible at this time. patient has no red flecks symptoms. - Lab Data Result diagrams: 12/26/16 17:35 12/26/16 17:35 Lab Results 12/26/16 12/26/16 12/26/16 Range/Units 16:10 17:35 17:35 WBC 4.6 (3.8-10.6) k/uL RBC 3.50 L (3.80-5.40) m/uL Hgb 10.4 L (11.4-16.0) gm/dL Hct 32.2 L (34.0-46.0) % MCV 92.1 (80.0-100.0) fL MCH 29.7 (25.0-35.0) pg MCHC 32.3 (31.0-37.0) g/dL RDW 16.4 H (11.5-15.5) % Plt Count 302 (150-450) k/uL Neutrophils % 44 % Lymphocytes % 36 % Monocytes % 12 % Eosinophils % 3 % Basophils % 1 % Neutrophils # 2.0 (1.3-7.7) k/uL Lymphocytes # 1.6 (1.0-4.8) k/uL Monocytes # 0.5 (0-1.0) k/uL Eosinophils # 0.2 (0-0.7) k/uL Basophils # 0.1 (0-0.2) k/uL Hypochromasia Slight Anisocytosis Slight Sodium 136 L (137-145) mmol/L Potassium 4.0 (3.5-5.1) mmol/L Chloride 105 (98-107) mmol/L Carbon Dioxide 19 L (22-30) mmol/L Anion Gap 12 mmol/L BUN 12 (7-17) mg/dL Creatinine 0.65 (0.52-1.04) mg/dL Est GFR (MDRD) Af Amer >60 (>60 ml/min/1.73 sqM) Est GFR (MDRD) Non-Af >60 (>60 ml/min/1.73 sqM) Glucose 99 (74-99) mg/dL Calcium 9.4 (8.4-10.2) mg/dL Total Bilirubin 0.4 (0.2-1.3) mg/dL AST 18 (14-36) U/L ALT 27 (9-52) U/L Alkaline Phosphatase 70 (38-126) U/L Total Protein 7.2 (6.3-8.2) g/dL Albumin 4.1 (3.5-5.0) g/dL Lipase 72 (23-300) U/L Urine Color Light Yellow Urine Appearance Clear (Clear) Urine pH 7.5 (5.0-8.0) Ur Specific [place] 1.008 (1.001-1.035) Urine Protein Negative (Negative) Urine Glucose (UA) Negative (Negative) Urine Ketones Negative (Negative) Urine Blood Negative (Negative) Urine Nitrite Negative (Negative) Urine Bilirubin Negative (Negative) Urine Urobilinogen <2.0 (<2.0) mg/dL Ur Leukocyte Esterase Negative (Negative) 12/26/16 17:42 EKG performed at 17:22 sinus rhythm with first-degree block rate of 81. HI interval 230, QRS duration 86 QT/QTC 394/457 Disposition Clinical Impression: Chronic back pain, Nausea & vomiting Disposition: HOME SELF-CARE Condition: Stable Instructions: Chronic Back Pain (ED) Additional Instructions: Please return to the Emergency Department if symptoms worsen or any other concerns. Referrals: Xin Hernández MD [Primary Care Provider] - 1-2 days Time of Disposition: 18:40
[2016-12-26 17:44] LABS: Appearance,Urine Clear (Clear); Bilirubin,Urine Negative (Negative); Glucose,Urine (UA) Negative (Negative); Ketones,Urine Negative (Negative); Leukocyte Esterase,Urine Negative (Negative); Nitrite,Urine Negative (Negative); PH, Urine 7.5 (5.0-8.0); Protein,Urine Negative (Negative); Specific Gravity,Urine 1.008 (1.001-1.035); UA Billing (MACRO vs. MICRO) CHEM; Urobilinogen,Urine <2.0 mg/dL (<2.0)
[2016-12-26 17:52] LABS: Anisocytosis Slight; Basophils # (A) 0.1 k/uL (0-0.2); Basophils % (A) 1 %; CH 30.6; CHCM 33.3; Eosinophils # (A) 0.2 k/uL (0-0.7); Eosinophils % (A) 3 %; HCT 32.2 % (34.0-46.0); HGB 10.4 gm/dL (11.4-16.0); Hypochromasia Slight; Luc % (Auto) 4; Lymphocytes # (A) 1.6 k/uL (1.0-4.8); Lymphocytes % (A) 36 %; MCH 29.7 pg (25.0-35.0); MCHC 32.3 g/dL (31.0-37.0); MCV 92.1 fL (80.0-100.0); Monocytes # (A) 0.5 k/uL (0-1.0); Monocytes % (A) 12 %; Neutrophils % (A) 44 %; RDW 16.4 % (11.5-15.5); WBC 4.6 k/uL (3.8-10.6); WBC (Perox) 4.74
[2016-12-26 18:07] LABS: ALT 27 U/L (9-52); AST 18 U/L (14-36); Alkaline Phosphatase 70 U/L (38-126); Anion Gap 12 mmol/L; Blood Urea Nitrogen 12 mg/dL (7-17); Calcium 9.4 mg/dL (8.4-10.2); Carbon Dioxide 19 mmol/L (22-30); Chloride 105 mmol/L (98-107); Glucose 99 mg/dL (74-99); Non-African American GFR(MDRD) >60 (>60 ml/min/1.73 sqM); Sodium 136 mmol/L (137-145); Total Bilirubin 0.4 mg/dL (0.2-1.3); Total Protein 7.2 g/dL (6.3-8.2)
--- NOTE | 2016-12-26 18:20 | XR ---
EXAMINATION TYPE: XR KUB DATE OF EXAM: 12/26/2016 COMPARISON: 12/18/2016 HISTORY: Chronic back pain, history of bariatric surgery with peptic ulcer disease. TECHNIQUE: 2 upright views were obtained. FINDINGS: There are scattered gas distended bowel loops in all 4 quadrants, and particularly within t he mid abdomen, but without rossana bowel obstruction. No pneumatosis. No pneumoperitoneum. The visualized lung bases and pleural spaces are negative. Skeletal structures are without focal find ings - but prominent degenerative spine changes are redemonstrated. IMPRESSION: No definite acute radiographic process.
[2016-12-26] MEDS ORDERED: ORPHENADRINE 30 MG/ML 2 ML VIAL IVP STA (18:38)
[2016-12-26] MEDS ORDERED: ACET/COD 300 MG/30 MG STARTER PACK 6 TAB BTL PO STA (18:40)
[2016-12-26] MEDS ORDERED: ONDANSETRON 4 MG ODT STARTER PACK 2 TAB BTL PO STA (18:41)
[2016-12-26 20:00] VITALS: BP 166/83; PULSE 80; RESP 18; TEMP 97.3
== END 2016-12-26 20:48 | disposition home or self-care (01) ==
LOC: EC 15:55
DX: M54.5 Low back pain (principal); G89.29 Other chronic pain; R11.2 Nausea with vomiting, unspecified; I25.10 Atherosclerotic heart disease of native coronary artery without angina pectoris; K21.9 Gastro-esophageal reflux disease without esophagitis; I10 Essential (primary) hypertension; Z90.49 Acquired absence of other specified parts of digestive tract; Z85.21 Personal history of malignant neoplasm of larynx; Z87.891 Personal history of nicotine dependence; Z79.899 Other long term (current) drug therapy
CPT/HCPCS: 36415; 93005; 80053; 83690; 84484; 85025; 81003; 74000; 99284; 96374; 96375 ×2; 96361 ×2; J2270; J2360; J2405; S0119

== ENCOUNTER → 2017-06-18 | Outpatient (CLI) | payer MEDICARE ==
--- NOTE | 2017-06-19 09:03 | MR ---
EXAMINATION TYPE: MR lumbar spine wo con DATE OF EXAM: 06/18/2017 COMPARISON: 06/29/2016 CT lumbar spine HISTORY: Low back pain TECHNIQUE: Multiplanar, multisequence images of the lumbar spine were acquired. FINDINGS: There is grade 1 anterolisthesis of L4 on L5 and retrolisthesis of L2 on L3. Degree is unch anged from the prior exam of 06/29/2016. There are well-circumscribed T2 and T1 hyperintense vertebral body hemangiomas at T12, L1 and L2. Degenerative disc endplate change with Schmorl's node and L3 is seen. Remainder of the bone marrow signal is within normal limits. The conus medullaris is unremarkab le terminating at L1-L2. There is a medially cortically based right upper pole subcentimeter renal le guillermo that is T1 hypointense, likely representing a cyst. Paraspinal musculature displays mild atrophy inferiorly and is symmetric. L1-L2: There is a right eccentric broad-based disc bulge creating mild right neural foraminal narrowi ng. Facet arthropathy is also seen at this level. There is resultant mild spinal canal stenosis. Left neural foramen is patent. L2-L3: Retrolisthesis of L2 on L3, broad-based distal, facet arthropathy and ligamentum flavum buckli ng results in moderate right neural foraminal narrowing and moderate to severe left neural foraminal narrowing. There is also mild spinal canal stenosis at this level. L3-L4: Extensive ligamentum flavum buckling and facet arthropathy are seen. No focal disc herniation. Small broad-based disc bulges also present creating moderate bilateral neural foraminal narrowing, r ight greater than left. Mild spinal canal stenosis. L4-L5: Grade 1 anterolisthesis of L4 and L5 creates disc uncovering. Annular tear is seen centrally w ith left paracentral focal disc protrusion/herniation. This is superimposed upon a broad-based disc b ulge that in combination with facet arthropathy and ligamentum flavum buckling create moderate left a nd severe right neural foraminal narrowing with impingement of the exiting L4 nerve root. Mild spinal canal stenosis is also seen at this level. L5-S1: Very small central disc herniation/protrusion is superimposed upon a broad-based disc bulge wi thout neural foraminal narrowing or spinal canal stenosis. IMPRESSION: 1. Left paracentral disc herniation at L4-L5 with extensive degenerative changes creating mild spinal canal stenosis, moderate left neural foraminal narrowing and severe right neuroforaminal narrowing i mpinging on the exiting L4 nerve. 2. Extensive degenerative disc disease resulting in mild spinal canal stenosis from L1-L3 and multile vinny variable degrees of neural foraminal stenosis as described above. 3. Very small central disc herniation at L5-S1 without resultant neural foraminal narrowing or spinal canal stenosis. 4. Grade 1 anterolisthesis of L4 on L5 and retrolisthesis of L2 on L3, stable from the prior CT.
--- NOTE | 2017-06-19 16:49 | MR ---
EXAMINATION TYPE: MR pelvis wo con DATE OF EXAM: 06/18/2017 COMPARISON: NONE HISTORY: Low back pain and lower extremity pain TECHNIQUE: Standard multiplanar, multisequence MRI departmental protocol Multiplanar, multisequence images of the pelvis were acquired without intravenous contrast. FINDINGS: The femoral heads maintain their normal rounded contours. There is no linear T1 signal within either proximal femur to suggest fracture. No bone marrow edema is appreciated. No serpiginous subchondral i ncreased T2 signal to indicate avascular necrosis. There is mild cephalad joint space narrowing bilat erally with acetabular roof sclerosis and small acetabular marginal osteophytes. There appears to be at least labral degeneration bilaterally within the limitations of this nonarthrographic study at the anterosuperior labrum, limited by lack of joint effusion. The uterus is surgically absent. The ovaries are visualized but atrophic. Incidental note is made of partial visualization of a Bartholin's gland cyst. No adenopathy is seen within the pelvis. Multiple sigmoid diverticula are noted without pericolonic fat stranding. Urinary bladder is unremarkable. Holly stases recti is present and there is atrophy of the paraspinal musculature that is symmetric. There is increased signal at the greater trochanters bilaterally, right greater than left at the inse rtion sites of the gluteal musculature indicating greater trochanteric bursitis (again right greater than left). Sacroiliac joints are symmetric with mild bilateral sclerosis. No evidence of joint space widening. Visualized portions of the lumbar spine are discussed on the lumbar spine MR of the same d ate. IMPRESSION: 1. Mild femoral acetabular arthropathy bilaterally with at least anterior superior labral degeneratio n bilaterally. Evaluation for labral tear is limited on this nonarthrographic study. 2. Findings compatible with greater trochanteric bursitis, right greater than left. 3. No evidence of femoral fracture, avascular necrosis, or bone marrow edema. No suspicious osseous l esion.
== END | disposition home or self-care (01) ==
LOC: RADMRIMAIN 14:43
PROVIDERS: ATTEND General Practice
DX: M48.061 Spinal stenosis, lumbar region without neurogenic claudication (principal); M51.27 Other intervertebral disc displacement, lumbosacral region; M47.816 Spondylosis without myelopathy or radiculopathy, lumbar region; M99.73 Connective tissue and disc stenosis of intervertebral foramina of lumbar region; M51.36 Other intervertebral disc degeneration, lumbar region; M43.16 Spondylolisthesis, lumbar region; M12.9 Arthropathy, unspecified
CPT/HCPCS: 72148; 72195

== ENCOUNTER → 2017-07-10 | Outpatient (CLI) | payer MEDICARE ==
[2017-07-09 12:51] VITALS: BMI 30.2
[2017-07-10 14:30] VITALS: PULSE 65; RESP 18
--- NOTE | 2017-07-10 15:09 | P.HPIM ---
History of Present Illness H&P Date: 07/10/17 Chief Complaint: low back pain This is a 71-year-old patient referred by Dr. Putnam for chronic pain in low back with radiation to toes with numbness/tingling. Patient has been taking medications from primary care physician including tramadol medications with some relief. Patient denies adverse drug effects from medications. Patient also denies new-onset weakness, bowel/bladder incontinence, or any other signs or symptoms of cauda equina syndrome. There are no signs of acute intoxication, and no indications of medication diversion or overuse. Patient notes that pain worsens significantly with standing, walking, and bending and improves with rest, ice, and medication. Patient has used several types of medications for pain, including NSAIDS, OPIOIDS, TRAMADOL. Patient HAS NOT had surgery. Patient HAS NOT had injections previously. Patient HAS had physical therapy recently without substantial relief. In addition to above, 13-point review of systems is also negative for chest pain , shortness of breath, changes in vision, changes in hearing, new onset weakness , abdominal pain, diarrhea, extreme fatigue, malaise, fever, skin changes, homicidal or suicidal ideation, or bowel or bladder incontinence. Vital Signs: Reviewed in EMR Gen: WDWN, AAOx3, NAD HEENT: NCAT, EOMI, hearing grossly normal Pulm: resp unlabored Abd: soft, NT, ND Neck: supple, trachea midline ROM in flexion lumbar spine: reduced ROM in extension lumbar spine: reduced Lumbar paravertebral tenderness: + Facet loading: + bilateral, L > R SI joint tenderness: neg Socrates's test: neg Straight leg raise: + bilateral, LLE at 5 degrees and RLE at 10 degrees Neuro: CN II-XII grossly intact, muscle strength lower extremities decreased due to pain Past Medical History Past Medical History: Coronary Artery Disease (CAD), Cancer, Chest Pain / Angina , Eye Disorder, GERD/Reflux, Hypertension, Renal Disease Additional Past Medical History / Comment(s): Peptic ulcer disease-GI bleed, chronic back pain, osteoarthritis, laryngeal cancer with a previous 30tx- radiation therapy approx 20 yrs ago, Guzman's Palsy, chronic bronchitis, head injury back in 2013, cataracts bilateral History of Any Multi-Drug Resistant Organisms: MRSA Date of last positivie culture/infection: 1997 MDRO Source:: left shoulder Past Surgical History: Bariatric Surgery, Cholecystectomy, Heart Catheterization , Hysterectomy, Joint Replacement, Orthopedic Surgery Additional Past Surgical History / Comment(s): bilateral knee replacement, left shoulder rotator cuff surgery, gastric bypass, D&C, EGD/colonoscopy, laryngeal tumor removed. Past Anesthesia/Blood Transfusion Reactions: No Reported Reaction Date of Last Stent Placement:: 2012 Past Psychological History: Anxiety, Panic Disorder Additional Psychological History / Comment(s): Pt has a son who lives with her. She is independent. Smoking Status: Former smoker Past Alcohol Use History: None Reported Additional Past Alcohol Use History / Comment(s): Pt started smoking in 1960 and quit in 1980,1ppd Past Drug Use History: None Reported - Past Family History Mother Family Medical History: Cancer, Congestive Heart Failure (CHF), Diabetes Mellitus, Hypertension Additional Family Medical History / Comment(s): mother passed at 93. Father Family Medical History: Myocardial Infarction ([place]) Additional Family Medical History / Comment(s): Father of a [place] at the age of 39yrs. Sister(s) Family Medical History: Cancer Brother(s) Family Medical History: Cancer Medications and Allergies Home Medications Medication Instructions Recorded Confirmed Type Atorvastatin [Lipitor] 10 mg PO HS 07/09/17 07/10/17 History Ibuprofen [Ibuprofen] 800 mg PO TID PRN 07/09/17 07/10/17 History Levothyroxine Sodium 200 mcg PO DAILY 07/09/17 07/10/17 History Omeprazole [PriLOSEC] 20 mg PO DAILY 07/09/17 07/10/17 History traMADol HCL [Ultram] 50 mg PO Q8H PRN 07/09/17 07/10/17 History Allergies Allergy/AdvReac Type Severity Reaction Status Date / Time No Known Allergies Allergy Verified 07/10/17 14:16 Physical Exam Vitals: Vital Signs Pulse Resp Pulse Ox 07/10/17 14:17 65 18 98 Results Comments: MRI lumbar spine demonstrates a left paracentral disc herniation at L4-L5 with extensive degenerative changes creating mild spinal canal stenosis, moderate left neural foraminal narrowing and severe right-sided neural foraminal stenosis with impingement on the exiting L4 nerve. There is spinal canal stenosis ranging from the L1 to L3 levels and severe degenerative disc disease at numerous levels. Assessment and Plan (1) Lumbar spinal stenosis Current Visit: Yes Status: Chronic Code(s): M48.061 - SPINAL STENOSIS, LUMBAR REGION WITHOUT NEUROGENIC MAITE SNOMED Code(s): 09361659 (2) Lumbar radiculitis Current Visit: Yes Status: Chronic Code(s): M54.16 - RADICULOPATHY, LUMBAR REGION SNOMED Code(s): 826112972 Plan: 1. Explanation: Opioid and psychological risk scores were reviewed. Diagnoses , prognoses, and multiple treatment options including but not limited to physical therapy, interventional therapies, adjuvant medical therapies, narcotic medication therapies, and surgery were discussed with the patient and all questions were answered to the patient's satisfaction. 2. Opioid agreement: no opioids prescribed today 3. Counseling: The patient was counseled extensively on BODY MASS INDEX, EXERCISE. Specifically, the patient was instructed regarding the importance of weight control, and exercise in the context of both chronic pain and overall health. 4. Procedures: LESI series, L4-L5 if possible 5. Consultations: none 6. Investigations: none 7. Medications: none prescribed 8. Disposition: f/u for procedure as scheduled PQRS measures: 1-Patient's medications are documented in the chart. 2-Tobacco use is negative 3-Patient has not had a pneumococcal vaccine. 4-Advanced care planning discussed, patient unable to give. 5-Opioid contract NOT signed with the patient. 6-Pain positive, follow-up visit or procedure scheduled 7-Patient's blood pressure measured and documented, and patient will follow up with the primary care due to hypertension. 8-Patient's weight was measured, and body mass index ABOVE the normal limits, and counseling was done. Patient instructed to follow up with PCP. 9-Patient WAS NOT identified as an unhealthy alcohol user. Time with Patient: Greater than 30
== END | disposition home or self-care (01) ==
LOC: PNWHC3 13:59
PROVIDERS: ATTEND Anesthesiology
DX: M48.061 Spinal stenosis, lumbar region without neurogenic claudication (principal); M54.16 Radiculopathy, lumbar region; I10 Essential (primary) hypertension; I25.10 Atherosclerotic heart disease of native coronary artery without angina pectoris; K21.9 Gastro-esophageal reflux disease without esophagitis; Z79.891 Long term (current) use of opiate analgesic; Z87.891 Personal history of nicotine dependence; Z79.1 Long term (current) use of non-steroidal anti-inflammatories (NSAID); Z79.899 Other long term (current) drug therapy
CPT/HCPCS: 99211

== ENCOUNTER 2017-08-14 08:58 | Day surgery (SDC) | payer MEDICARE ==
[2017-08-13 09:52] VITALS: BMI 32.5
[~2017-08-14 08:58] MED LIST: LACTATED RINGERS 1,000 ML IV SCH
[2017-08-14 11:08] VITALS: RESP 16; TEMP 97.4
[2017-08-14] MEDS ORDERED: LIDOCAINE 1% 20 ML VIAL (10MG/ML) FOR IV START INTRADERMA ONE (11:13)
--- NOTE | 2017-08-14 11:39 | P.PCN ---
Date of Procedure: 08/14/17 Procedure(s) Performed: PREOPERATIVE DIAGNOSIS: 1- Lumbar herniated Disc Diseases 2-Lumbar radiculopathy POSTOPERATIVE DIAGNOSIS: Same as preoperative diagnosis. PROCEDURE 1. Lumbar epidural steroid injection under fluoroscopic guidance at the L5-S1 level. 2. Lumbar epidurogram. ANESTHESIA: Local with 1% lidocaine 3 ml and , moderate sedation with intravenous Versed 2 mg ,and fentanyle 100 Mcg EBL: Minimal PROCEDURE INDICATION: The patient with low back pain and radiculitis symptoms unresponsive to conservative treatment. Fluoroscopy was used to optimize visualization of the needle placement and to maximize safety. PROCEDURE DESCRIPTION / TECHNIQUE: The patient was seen and identified in the preoperative area. Risks, benefits , complications including but not limited to infections ,bleeding ,allergic reaction to the medications ,nerve damage and not complete pain releife , and alternatives were discussed with the patient. The patient agreed to proceed with the procedure and signed the consent. IV was started, and vital signs were stable. Patient was taken to the OR and time out was completed. The patient was placed in the prone position on procedure table and a pillow was placed under the abdomen to reduce lumbar lordosis. The lumbosacral area was prepped and draped in the usual sterile fashion.ere closely monitored during the procedure. Conscious sedation was used during the procedure to decrease patients anxiety. Vital signs was monitered during the entire procedure. Using anterior-posterior fluoroscopy, the L5-S1 interlaminar space was identified and the skin over this site was marked and then infiltrated with 1% lidocaine subcutaneously. Subsequently, a 20-gauge Tuohy epidural needle was inserted and advanced toward the epidural space using the ``Loss of resistance technique and guided by AP and lateral fluoroscopy. The correct needle position in the epidural space was verified with the injection of 2 mL of the water soluble contrast dye Isovue 200 contrast and observing an excellent epidurogram with the epidural spread of the dye, after negative aspiration for blood and CSF and in the absence of paresthesias. Again after negative aspiration, a 6 ml mixture containing 60 mg Kenalog , and 2 ml of preservative free Normal Saline, and 2 ml of preservative free lidocaine 1% solution was injected and a washout of epidurogram was seen. Needle was withdrawn intact, skin was cleansed, and bandages were applied. COMPLICATIONS: None DISPOSITION / PLANS: The patient was placed in a supine position and transferred to the recovery area in a stable condition for observation. There was no evidence of lower extremity motor or sensory deficit after the procedure. Patient was discharged from the recovery room after meeting discharge criteria. Home discharge instructions were given to the patient by the staff. The patient was reexamined prior to discharge. The patient will schedule a follow up in the clinic in 2-4 weeks.
--- NOTE | 2017-08-14 11:47 | FL ---
EXAMINATION TYPE: FL guided pain mgmt statistic DATE OF EXAM: 08/14/2017 COMPARISON: NONE HISTORY: Back pain TECHNIQUE: Fluoroscopy. FINDINGS/IMPRESSION: Fluoroscopic guidance was provided during procedure performed by Dr. Bower. A total of 2 seconds of fluoroscopic time was utilized during the procedure and 1 spot images was ac quired demonstrating localization of the lumbar spine.
[2017-08-14 12:15] VITALS: BP 171/73; PULSE 53
[2017-08-14] MEDS ORDERED: IV FLUID CONTINUATION 1,000 ML IV ONE (12:15)
== END 2017-08-14 12:24 | disposition home or self-care (01) ==
LOC: ORPAIN 08:58
PROVIDERS: ATTEND Specialist
DX: M51.16 Intervertebral disc disorders with radiculopathy, lumbar region (principal); I10 Essential (primary) hypertension; E03.9 Hypothyroidism, unspecified
CPT/HCPCS: 62323; J2250; J3301; J3010; Q9966

== ENCOUNTER 2017-10-08 17:21 | Emergency (ER) | payer MEDICARE ==
[2017-10-08] MEDS ORDERED: HYDROmorphone 0.5 MG/0.5 ML SYRINGE IVP STA (18:12)
[2017-10-08] MEDS ORDERED: SODIUM CHLORIDE 0.9% 1,000 ML IV STA (18:12)
[2017-10-08] MEDS ORDERED: ONDANSETRON 4 MG/2 ML VIAL IVP STA (18:12)
--- NOTE | 2017-10-08 18:14 | ED ---
General Adult HPI - General Chief complaint: Abdominal Pain Stated complaint: Abd pain Time Seen by Provider: 10/08/17 17:40 Source: patient, EMS, RN notes reviewed Mode of arrival: EMS Limitations: no limitations - History of Present Illness Initial comments: This is a 71-year-old female presents emergency Department complaining of lower abdominal cramping. Patient states started last evening and she vomited after that she thought she was doing better but again today she started to express some lower abdominal cramping and nausea and vomiting today as well. Patient denies any diarrhea. Patient denies any fever chills. Patient denies any dysuria hematuria urinary frequency. Patient denies any back pain. Patient denies any difficulty breathing or shortness of breath. Patient denies any chest pain. Patient denies headache patient denies any numbness weakness. Patient denies any lightheadedness dizziness or near syncopal episode. Patient states she's not been around anyone else with similar symptoms. - Related Data Home Medications Medication Instructions Recorded Confirmed Levothyroxine Sodium 200 mcg PO DAILY 07/09/17 10/08/17 Ibuprofen [Advil] 200 mg PO Q6HR PRN 08/13/17 10/08/17 Acetaminophen Tab [Tylenol Tab] 650 mg PO Q4H PRN 10/08/17 10/08/17 Allergies Allergy/AdvReac Type Severity Reaction Status Date / Time No Known Allergies Allergy Verified 10/08/17 18:15 Review of Systems ROS Statement: Those systems with pertinent positive or pertinent negative responses have been documented in the HPI. ROS Other: All systems not noted in ROS Statement are negative. Past Medical History Past Medical History: Coronary Artery Disease (CAD), Cancer, Chest Pain / Angina , Eye Disorder, GERD/Reflux, Hypertension, Musculoskeletal Disorder, Osteoarthritis (OA), Renal Disease Additional Past Medical History / Comment(s): Peptic ulcer, chronic back pain, 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 History of Any Multi-Drug Resistant Organisms: MRSA Date of last positivie culture/infection: 1997 MDRO Source:: left shoulder Past Surgical History: Bariatric Surgery, Cholecystectomy, Heart Catheterization , Hysterectomy, Joint Replacement, Orthopedic Surgery Additional Past Surgical History / Comment(s): Bilateral knee replacement, left shoulder rotator cuff surgery, gastric bypass, D&C, EGD/colonoscopy, laryngeal tumor removed, Ganglion Cysts both wrists. Past Anesthesia/Blood Transfusion Reactions: No Reported Reaction Date of Last Stent Placement:: 2012 Past Psychological History: Anxiety, Depression, Panic Disorder Smoking Status: Former smoker Past Alcohol Use History: None Reported Past Drug Use History: None Reported - Past Family History Mother Family Medical History: Cancer, Congestive Heart Failure (CHF), Diabetes Mellitus, Hypertension Additional Family Medical History / Comment(s): Mother passed at 93. Father Family Medical History: Myocardial Infarction ([place]) Additional Family Medical History / Comment(s): Father of a [place] at the age of 39 yrs. Sister(s) Family Medical History: Cancer Brother(s) Family Medical History: Cancer General Exam - General Exam Comments Initial Comments: GENERAL: Patient is well-developed and well-nourished. Patient is nontoxic and well- hydrated and is in mild distress. ENT: Neck is soft and supple. No significant lymphadenopathy is noted. Oropharynx is clear. Moist mucous membranes. EYES: The sclera were anicteric and conjunctiva were pink and moist. Extraocular movements were intact and pupils were equal round and reactive to light. Eyelids were unremarkable. PULMONARY: Unlabored respirations. Good breath sounds bilaterally. No audible rales rhonchi or wheezing was noted. CARDIOVASCULAR: There is a regular rate and rhythm without any murmurs gallops or rubs. ABDOMEN: Minimal suprapubic abdominal pain.. No palpable organomegaly was noted. There is no palpable pulsatile mass. SKIN: Skin is clear with no lesions or rashes and otherwise unremarkable. NEUROLOGIC: Patient is alert and oriented x3. Cranial nerves II through XII are grossly intact. Motor and sensory are also intact. Normal speech, volume and content. Symmetrical smile. MUSCULOSKELETAL: Normal extremities with adequate strength and full range of motion. LYMPHATICS: No significant lymphadenopathy is noted PSYCHIATRIC: Normal psychiatric evaluation. Normal interpersonal interactions appears functionally intact in deals appropriately with others. No signs of depression. No signs of anxiety. Limitations: no limitations Course Vital Signs 10/08/17 10/08/17 17:40 18:36 Temperature 98.5 F Pulse Rate 85 88 Respiratory 18 20 Rate Blood Pressure 198/89 166/77 O2 Sat by Pulse 97 98 Oximetry Medical Decision Making - Medical Decision Making Patient had no vomiting while in the emergency department. I went back to reevaluate her once her labs came back patient had no abdominal pain at this time. Patient denied any nausea - Lab Data Result diagrams: 10/08/17 17:30 10/08/17 17:30 Lab Results 10/08/17 10/08/17 10/08/17 Range/Units 17:30 17:30 17:30 WBC 7.2 (3.8-10.6) k/uL RBC 3.89 (3.80-5.40) m/uL Hgb 12.5 (11.4-16.0) gm/dL Hct 36.8 (34.0-46.0) % MCV 94.6 (80.0-100.0) fL MCH 32.3 (25.0-35.0) pg MCHC 34.1 (31.0-37.0) g/dL RDW 14.0 (11.5-15.5) % Plt Count 350 (150-450) k/uL Neutrophils % 68 % Lymphocytes % 20 % Monocytes % 6 % Eosinophils % 4 % Basophils % 1 % Neutrophils # 4.9 (1.3-7.7) k/uL Lymphocytes # 1.5 (1.0-4.8) k/uL Monocytes # 0.4 (0-1.0) k/uL Eosinophils # 0.3 (0-0.7) k/uL Basophils # 0.0 (0-0.2) k/uL Sodium 137 (137-145) mmol/L Potassium 4.2 (3.5-5.1) mmol/L Chloride 105 (98-107) mmol/L Carbon Dioxide 16 L (22-30) mmol/L Anion Gap 16 mmol/L BUN 14 (7-17) mg/dL Creatinine 0.80 (0.52-1.04) mg/dL Est GFR (CKD-EPI)AfAm 86 (>60 ml/min/1.73 sqM) Est GFR (CKD-EPI)NonAf 75 (>60 ml/min/1.73 sqM) Glucose 99 (74-99) mg/dL Plasma Lactic Acid Anthony 0.8 (0.7-2.0) mmol/L Calcium 8.9 (8.4-10.2) mg/dL Total Bilirubin 0.7 (0.2-1.3) mg/dL AST 35 (14-36) U/L ALT 22 (9-52) U/L Alkaline Phosphatase 64 (38-126) U/L Total Protein 6.5 (6.3-8.2) g/dL Albumin 3.8 (3.5-5.0) g/dL Amylase 31 (30-110) U/L Lipase 71 (23-300) U/L Urine Color Urine Appearance (Clear) Urine pH (5.0-8.0) Ur Specific [place] (1.001-1.035) Urine Protein (Negative) Urine Glucose (UA) (Negative) Urine Ketones (Negative) Urine Blood (Negative) Urine Nitrite (Negative) Urine Bilirubin (Negative) Urine Urobilinogen (<2.0) mg/dL Ur Leukocyte Esterase (Negative) Urine RBC (0-5) /hpf Urine WBC (0-5) /hpf Ur Squamous Epith Cells (0-4) /hpf Hyaline Casts (0-2) /lpf Urine Mucus (None) /hpf 10/08/17 Range/Units 18:30 WBC (3.8-10.6) k/uL RBC (3.80-5.40) m/uL Hgb (11.4-16.0) gm/dL Hct (34.0-46.0) % MCV (80.0-100.0) fL MCH (25.0-35.0) pg MCHC (31.0-37.0) g/dL RDW (11.5-15.5) % Plt Count (150-450) k/uL Neutrophils % % Lymphocytes % % Monocytes % % Eosinophils % % Basophils % % Neutrophils # (1.3-7.7) k/uL Lymphocytes # (1.0-4.8) k/uL Monocytes # (0-1.0) k/uL Eosinophils # (0-0.7) k/uL Basophils # (0-0.2) k/uL Sodium (137-145) mmol/L Potassium (3.5-5.1) mmol/L Chloride (98-107) mmol/L Carbon Dioxide (22-30) mmol/L Anion Gap mmol/L BUN (7-17) mg/dL Creatinine (0.52-1.04) mg/dL Est GFR (CKD-EPI)AfAm (>60 ml/min/1.73 sqM) Est GFR (CKD-EPI)NonAf (>60 ml/min/1.73 sqM) Glucose (74-99) mg/dL Plasma Lactic Acid Anthony (0.7-2.0) mmol/L Calcium (8.4-10.2) mg/dL Total Bilirubin (0.2-1.3) mg/dL AST (14-36) U/L ALT (9-52) U/L Alkaline Phosphatase (38-126) U/L Total Protein (6.3-8.2) g/dL Albumin (3.5-5.0) g/dL Amylase (30-110) U/L Lipase (23-300) U/L Urine Color Yellow Urine Appearance Clear (Clear) Urine pH 6.0 (5.0-8.0) Ur Specific [place] 1.019 (1.001-1.035) Urine Protein Trace H (Negative) Urine Glucose (UA) Negative (Negative) Urine Ketones Negative (Negative) Urine Blood Trace H (Negative) Urine Nitrite Negative (Negative) Urine Bilirubin Negative (Negative) Urine Urobilinogen <2.0 (<2.0) mg/dL Ur Leukocyte Esterase Negative (Negative) Urine RBC 1 (0-5) /hpf Urine WBC 10 H (0-5) /hpf Ur Squamous Epith Cells <1 (0-4) /hpf Hyaline Casts 1 (0-2) /lpf Urine Mucus Rare H (None) /hpf Disposition Clinical Impression: Abdominal cramping, Nausea & vomiting Disposition: HOME SELF-CARE Condition: Good Instructions: Acute Nausea and Vomiting (ED) Is patient prescribed a controlled substance at d/c from ED?: No Referrals: Johnny Putnam MD [Primary Care Provider] - 1-2 days Time of Disposition: 19:42
[2017-10-08 18:25] LABS: Basophils % (A) 1 %; Eosinophils # (A) 0.3 k/uL (0-0.7); Eosinophils % (A) 4 %; HCT 36.8 % (34.0-46.0); HGB 12.5 gm/dL (11.4-16.0); Lymphocytes # (A) 1.5 k/uL (1.0-4.8); Lymphocytes % (A) 20 %; MCH 32.3 pg (25.0-35.0); MCHC 34.1 g/dL (31.0-37.0); MCV 94.6 fL (80.0-100.0); Mean Platelet Volume 7.3; Monocytes # (A) 0.4 k/uL (0-1.0); Monocytes % (A) 6 %; Neutrophils # (A) 4.9 k/uL (1.3-7.7); Neutrophils % (A) 68 %; Platelet Count 350 k/uL (150-450); RBC 3.89 m/uL (3.80-5.40); WBC 7.2 k/uL (3.8-10.6)
[2017-10-08 18:37] LABS: Albumin 3.8 g/dL (3.5-5.0); Calcium 8.9 mg/dL (8.4-10.2); Potassium 4.2 mmol/L (3.5-5.1); Total Bilirubin 0.7 mg/dL (0.2-1.3); Total Protein 6.5 g/dL (6.3-8.2)
[2017-10-08 18:57] LABS: Appearance,Urine Clear (Clear); Bilirubin,Urine Negative (Negative); Blood,Urine Trace (Negative); Color,Urine Yellow; Glucose,Urine (UA) Negative (Negative); Hyaline Casts,Urine 1 /lpf (0-2); Ketones,Urine Negative (Negative); Leukocyte Esterase,Urine Negative (Negative); Mucus,Urine Rare /hpf; Nitrite,Urine Negative (Negative); Protein,Urine Trace (Negative); RBC,Urine 1 /hpf (0-5); Specific Gravity,Urine 1.019 (1.001-1.035); Squamous Epithelial Cell,Urine <1 /hpf (0-4); Urobilinogen,Urine <2.0 mg/dL (<2.0); WBC,Urine 10 /hpf (0-5)
[2017-10-08] MEDS ORDERED: ONDANSETRON 4 MG ODT STARTER PACK 2 TAB BTL PO STA (19:48)
[2017-10-08 20:05] VITALS: BP 156/87; PULSE 80; RESP 18; TEMP 98.2
== END 2017-10-08 20:05 | disposition home or self-care (01) ==
LOC: EC 17:21
DX: R10.30 Lower abdominal pain, unspecified (principal); R11.2 Nausea with vomiting, unspecified; I25.119 Atherosclerotic heart disease of native coronary artery with unspecified angina pectoris; M19.90 Unspecified osteoarthritis, unspecified site; Z86.14 Personal history of Methicillin resistant Staphylococcus aureus infection; Z85.21 Personal history of malignant neoplasm of larynx; Z87.891 Personal history of nicotine dependence; Z79.899 Other long term (current) drug therapy; Z90.49 Acquired absence of other specified parts of digestive tract; Z95.818 Presence of other cardiac implants and grafts; Z96.653 Presence of artificial knee joint, bilateral
CPT/HCPCS: 36415; 80053; 82150; 83605; 83690; 85025; 81001; 99284; 96374; 96375; 96361; J2405; S0119; J1170

== ENCOUNTER 2017-10-09 19:41 | Observation (INO) | payer MEDICARE ==
[2017-10-09] MEDS ORDERED: HYDROmorphone 0.5 MG/0.5 ML SYRINGE IVP STA (20:04)
[2017-10-09] MEDS ORDERED: ONDANSETRON 4 MG/2 ML VIAL IVP STA (20:04)
--- NOTE | 2017-10-09 20:12 | ED ---
Abdominal Pain HPI - General Chief Complaint: Abdominal Pain Stated Complaint: Near syncope Time Seen by Provider: 10/09/17 19:50 Source: patient, family, RN notes reviewed, old records reviewed Mode of arrival: wheelchair Limitations: no limitations - History of Present Illness Initial Comments: This is a 71-year-old female who presents with complaints of persistent nausea vomiting abdominal pain. Been going on for past couple days. She was seen in the emergency department yesterday and sent home after she get relief. The workup at that time apparently was nonspecific or unremarkable. She presents with complaints of more abdominal pain 7/10 severity lower abdomen crampy in nature. Associated with nausea vomiting no diarrhea. She denies any fevers chills or sweats she did however almost passed out at home she states everything went black and she almost passed out. She was brought in by her granddaughter for further evaluation. He does have a history of peptic ulcer disease and a cholecystectomy in the past please see yesterday's report for complete information. MD Complaint: abdominal pain, other - Related Data Home Medications Medication Instructions Recorded Confirmed Levothyroxine Sodium 200 mcg PO DAILY 07/09/17 10/08/17 Ibuprofen [Advil] 200 mg PO Q6HR PRN 08/13/17 10/08/17 Acetaminophen Tab [Tylenol Tab] 650 mg PO Q4H PRN 10/08/17 10/08/17 Allergies Allergy/AdvReac Type Severity Reaction Status Date / Time No Known Allergies Allergy Verified 10/09/17 19:47 Review of Systems ROS Statement: Those systems with pertinent positive or pertinent negative responses have been documented in the HPI. ROS Other: All systems not noted in ROS Statement are negative. Past Medical History Past Medical History: Coronary Artery Disease (CAD), Cancer, Chest Pain / Angina , Eye Disorder, GERD/Reflux, Hypertension, Musculoskeletal Disorder, Osteoarthritis (OA), Renal Disease Additional Past Medical History / Comment(s): Peptic ulcer, chronic back pain, laryngeal cancer/tx-approx 20 yrs ago, Guzman's Palsy, head injury in 2012, cataracts bilateral. History of Any Multi-Drug Resistant Organisms: MRSA Date of last positivie culture/infection: 1997 MDRO Source:: left shoulder Past Surgical History: Bariatric Surgery, Cholecystectomy, Heart Catheterization , Hysterectomy, Joint Replacement, Orthopedic Surgery Additional Past Surgical History / Comment(s): Bilateral knee replacement, left shoulder rotator cuff surgery, gastric bypass, D&C, EGD/colonoscopy, laryngeal tumor removed, Ganglion Cysts both wrists. Past Anesthesia/Blood Transfusion Reactions: No Reported Reaction Date of Last Stent Placement:: 2012 Past Psychological History: Anxiety, Depression, Panic Disorder Smoking Status: Former smoker Past Alcohol Use History: None Reported Past Drug Use History: None Reported - Past Family History Mother Family Medical History: Cancer, Congestive Heart Failure (CHF), Diabetes Mellitus, Hypertension Additional Family Medical History / Comment(s): Mother passed at 93. Father Family Medical History: Myocardial Infarction ([place]) Additional Family Medical History / Comment(s): Father of a [place] at the age of 39 yrs. Sister(s) Family Medical History: Cancer Brother(s) Family Medical History: Cancer General Exam - General Exam Comments Initial Comments: This is a well-developed molars awake alert oriented 3 female who is actively vomiting Limitations: no limitations General appearance: alert, anxious, in distress Head exam: Present: atraumatic, normocephalic, normal inspection Eye exam: Present: normal appearance, PERRL, EOMI. Absent: scleral icterus, conjunctival injection, periorbital swelling ENT exam: Present: mucous membranes dry Neck exam: Present: normal inspection. Absent: tenderness, meningismus, lymphadenopathy Respiratory exam: Present: normal lung sounds bilaterally. Absent: respiratory distress, wheezes, rales, rhonchi, stridor Cardiovascular Exam: Present: regular rate, normal rhythm, normal heart sounds. Absent: systolic murmur, diastolic murmur, rubs, gallop, clicks GI/Abdominal exam: Present: soft, tenderness (Mild lower abdominal tenderness palpation no masses no guarding rebound or bruits), normal bowel sounds. Absent : distended, guarding, rebound, rigid Rectal exam: Present: deferred Extremities exam: Present: normal inspection, full ROM, normal capillary refill. Absent: tenderness, pedal edema, joint swelling, calf tenderness Back exam: Present: normal inspection Neurological exam: Present: alert, oriented X3, CN II-XII intact Psychiatric exam: Present: normal affect, anxious Skin exam: Present: warm, dry, intact, normal color. Absent: rash Course Vital Signs 10/09/17 19:44 Temperature 98.2 F Pulse Rate 82 Respiratory 24 Rate Blood Pressure 178/96 O2 Sat by Pulse 99 Oximetry - Reevaluation(s) Reevaluation #1: 10/09/17 20:45 The patient's care will be endorsed to Dr. Le at our shift change. Labs and imaging studies are pending. Medical Decision Making - Lab Data Result diagrams: 10/09/17 20:25 Lab Results 10/09/17 10/09/17 Range/Units 20:10 20:25 WBC 7.4 (3.8-10.6) k/uL RBC 4.02 (3.80-5.40) m/uL Hgb 12.7 (11.4-16.0) gm/dL Hct 37.3 (34.0-46.0) % MCV 92.8 (80.0-100.0) fL MCH 31.7 (25.0-35.0) pg MCHC 34.1 (31.0-37.0) g/dL RDW 13.9 (11.5-15.5) % Plt Count 330 (150-450) k/uL Neutrophils % 54 % Lymphocytes % 32 % Monocytes % 6 % Eosinophils % 5 % Basophils % 1 % Neutrophils # 3.9 (1.3-7.7) k/uL Lymphocytes # 2.4 (1.0-4.8) k/uL Monocytes # 0.5 (0-1.0) k/uL Eosinophils # 0.4 (0-0.7) k/uL Basophils # 0.0 (0-0.2) k/uL Urine Color Yellow Urine Appearance Clear (Clear) Urine pH 6.0 (5.0-8.0) Ur Specific [place] 1.012 (1.001-1.035) Urine Protein Negative (Negative) Urine Glucose (UA) Negative (Negative) Urine Ketones Negative (Negative) Urine Blood Trace H (Negative) Urine Nitrite Negative (Negative) Urine Bilirubin Negative (Negative) Urine Urobilinogen <2.0 (<2.0) mg/dL Ur Leukocyte Esterase Moderate H (Negative) Urine RBC 1 (0-5) /hpf Urine WBC 12 H (0-5) /hpf Ur Squamous Epith Cells 2 (0-4) /hpf Urine Mucus Rare H (None) /hpf - EKG Data -: EKG Interpreted by Al EKG shows normal: sinus rhythm (Sinus rhythm with first-degree AV block rate was 78. Interval to 48 QRS 80 QT since QTC 396/[address]-T wave changes seen) Disposition Referrals: Johnny Putnam MD [Primary Care Provider] - 1-2 days
[2017-10-09 20:29] LABS: Appearance,Urine Clear (Clear); Bilirubin,Urine Negative (Negative); Blood,Urine Trace (Negative); Color,Urine Yellow; Glucose,Urine (UA) Negative (Negative); Ketones,Urine Negative (Negative); Leukocyte Esterase,Urine Moderate (Negative); Mucus,Urine Rare /hpf; Nitrite,Urine Negative (Negative); Protein,Urine Negative (Negative); RBC,Urine 1 /hpf (0-5); Specific Gravity,Urine 1.012 (1.001-1.035); Squamous Epithelial Cell,Urine 2 /hpf (0-4); Urobilinogen,Urine <2.0 mg/dL (<2.0); WBC,Urine 12 /hpf (0-5)
[2017-10-09 20:42] LABS: Basophils % (A) 1 %; Eosinophils # (A) 0.4 k/uL (0-0.7); Eosinophils % (A) 5 %; HCT 37.3 % (34.0-46.0); HGB 12.7 gm/dL (11.4-16.0); Lymphocytes # (A) 2.4 k/uL (1.0-4.8); Lymphocytes % (A) 32 %; MCH 31.7 pg (25.0-35.0); MCHC 34.1 g/dL (31.0-37.0); MCV 92.8 fL (80.0-100.0); Mean Platelet Volume 7.9; Monocytes # (A) 0.5 k/uL (0-1.0); Monocytes % (A) 6 %; Neutrophils # (A) 3.9 k/uL (1.3-7.7); Neutrophils % (A) 54 %; Platelet Count 330 k/uL (150-450); RBC 4.02 m/uL (3.80-5.40); RDW 13.9 % (11.5-15.5); WBC 7.4 k/uL (3.8-10.6)
--- NOTE | 2017-10-09 21:01 | XR ---
EXAMINATION TYPE: XR abdomen 2V DATE OF EXAM: 10/09/2017 COMPARISON: 12/26/2016 HISTORY: Abdominal pain TECHNIQUE: 3 views including upright and supine FINDINGS: There is no sign of intestinal obstruction or pneumoperitoneum. There is left-sided intesti nal surgery. There are clips from cholecystectomy. There is no evidence of a mass. Fecal pattern is n ormal. There are phleboliths in the pelvis on the right side. Lung bases are clear. There is lumbar d extroscoliosis. IMPRESSION: Previous surgery. Nonacute abdomen. No adverse change compared to old exam.
[2017-10-09 21:02] LABS: Creatine Kinase 127 U/L (30-135)
[2017-10-09 21:08] LABS: INR 1.2 (<1.2); Partial Thromboplastin Time 22.4 sec (22.0-30.0); Prothrombin Time 11.4 sec (9.0-12.0)
[2017-10-09 21:14] LABS: Troponin I <0.012 ng/mL (0.000-0.034)
[2017-10-09 21:16] LABS: ALT 19 U/L (9-52); AST 31 U/L (14-36); Albumin 4.2 g/dL (3.5-5.0); Alkaline Phosphatase 70 U/L (38-126); Amylase 51 U/L (30-110); Anion Gap 17 mmol/L; Blood Urea Nitrogen 11 mg/dL (7-17); Carbon Dioxide 14 mmol/L (22-30); Chloride 106 mmol/L (98-107); Glucose 80 mg/dL (74-99); Lipase 95 U/L (23-300); Sodium 137 mmol/L (137-145); Total Bilirubin 0.5 mg/dL (0.2-1.3)
[2017-10-09 21:18] LABS: Potassium 3.6 mmol/L (3.5-5.1)
--- NOTE | 2017-10-09 22:00 | CT ---
EXAMINATION TYPE: CT abdomen pelvis w con DATE OF EXAM: 10/09/2017 COMPARISON: 12/10/2016 HISTORY: Generalized abdominal pain. CT DLP: 1489.6 mGycm Automated exposure control for dose reduction was used. TECHNIQUE: Helical acquisition of images was performed from the lung bases through the pelvis. CONTRAST: Performed without Oral Contrast and with IV Contrast, patient injected with 100 mL of Isovue 300. FINDINGS: Lung bases are clear. There is no pleural effusion. Heart size is normal. There is hiatal hernia. The re are clips from bariatric surgery. Liver spleen pancreas appear normal. There are clips from cholec ystectomy. There is no adrenal mass. Kidneys show satisfactory contrast opacification. There is no hy dronephrosis. There is no retroperitoneal adenopathy. Bladder distends smoothly. There is no evidence of a pelvic mass. There are some sigmoid diverticula. There is no evidence of diverticulitis. I see no intestinal wall thickening. There are no dilated loops. Appendix is not seen. There is no sign of appendicitis. I see no bony destructive process. There is thoracolumbar dextroscoliosis. There are sp ondylotic changes in the lumbar spine. There is a degenerative first-degree L4-5 spondylolisthesis. A bdominal aorta is atheromatous. IMPRESSION: ATHEROSCLEROTIC VASCULAR DISEASE. PREVIOUS SURGERY. NO SIGN OF ACUTE ABDOMEN AND PELVIS. NO ADVERSE C HANGE. THERE IS CLEARING OF SMALL PERICARDIAL EFFUSION COMPARED TO OLD EXAM.
[2017-10-09] MEDS ORDERED: NITROGLYCERIN SL TABS 0.4 MG TAB SUBLINGUAL PRN (23:17)
[2017-10-09] MEDS ORDERED: IBUPROFEN 200 MG TAB PO PRN (23:20)
[2017-10-09] MEDS ORDERED: DICYCLOMINE 20 MG TAB PO STA (23:21)
[2017-10-09] MEDS ORDERED: ENOXAPARIN 80 MG/0.8 ML SYRINGE SQ STA (23:24)
[2017-10-10 00:55] VITALS: BMI 34.0
[2017-10-10] MEDS ORDERED: HYDROmorphone 0.5 MG/0.5 ML SYRINGE IVP STA (01:21)
[2017-10-10] MEDS ORDERED: hydrALAZINE HCL 20 MG/ML 1 ML VIAL IVP STA (01:21)
[2017-10-10] MEDS: ONDANSETRON 4 MG/2 ML VIAL IVP PRN ×3 (01:26→22:07)
[2017-10-10 03:57] LABS: Cholesterol 169 mg/dL (<200); HDL Cholesterol 50 mg/dL (40-60); LDL Cholesterol,Calculated 94 mg/dL (0-99); Triglycerides 123 mg/dL (<150)
[2017-10-10 04:01] LABS: Creatine Kinase 109 U/L (30-135)
[2017-10-10 04:15] LABS: Creatine Kinase MB 0.9 ng/mL (0.0-2.4); Troponin I <0.012 ng/mL (0.000-0.034)
[2017-10-10] MEDS: SODIUM CHLORIDE 0.9% 1,000 ML IV SCH ×2 (04:20→23:35)
[2017-10-10] MEDS: LEVOTHYROXINE 100 MCG TAB PO SCH (06:46)
[2017-10-10] MEDS: ASPIRIN 325 MG TAB PO SCH (08:10)
[2017-10-10] MEDS: ACETAMINOPHEN TAB 325 MG TAB PO PRN ×2 (08:10→22:06)
[2017-10-10 08:26] LABS: Creatine Kinase 93 U/L (30-135)
[2017-10-10 08:38] LABS: Creatine Kinase MB 0.7 ng/mL (0.0-2.4); Troponin I <0.012 ng/mL (0.000-0.034)
--- NOTE | 2017-10-10 08:56 | CONS ---
CONSULTATION CHIEF COMPLAINT: Abdominal pain and near syncope. This is a 71-year-old lady with history of hypothyroidism, hypertension, who is admitted to hospital with near syncope. She has had lower abdominal pain 7/10 intensity and was seen in the emergency room on 10/08/2017 and was discharged home following negative workup. After going home she had worsening abdominal pain. Her daughter took her to the emergency room in [place] and from there was transferred back to [place] and she got admitted with a diagnosis of abdominal pain. The patient also had with abdominal pain, dizziness and near syncope. There is no history of focal neurological deficits. There is no history of syncope. There is no history of seizure disorder. The patient had uncontrolled hypertension on her initial presentation without significant orthostatic changes. Subsequent blood pressures have been better controlled. The patient apparently also has had atrial fibrillation both when she first came to the ER to [place] and then subsequently at [place]. I do not have rhythm strips from either of these visits. Patient is currently on Lovenox. I believe the near syncopal event is related to the abdominal pain and could be vasovagal in origin. PAST MEDICAL HISTORY: Significant for hypertension and hypothyroidism. CURRENT MEDICATIONS: Current medications include Synthroid, Advil, omeprazole. ALLERGIES: No known drug allergies. FAMILY HISTORY: Significant for coronary artery disease in her father. SOCIAL HISTORY: Negative for current smoking, EtOH abuse or drug abuse. REVIEW OF SYSTEMS: HEENT is unremarkable. CARDIAC: As described above. RESPIRATORY: Negative. GI: As described above. GENITOURINARY: Negative. ALLERGY/IMMUNOLOGICAL: Negative. SKIN: Negative. MUSCULOSKELETAL: Negative. ENDOCRINE: Negative. HEMATOLOGICAL: Negative. DERM: Negative. CONSTITUTIONAL: Negative. ONCOLOGICAL: Negative. Rest of the system review is not relevant. PHYSICAL EXAMINATION: On exam, patient is afebrile. Heart rate is 63 beats per minute. Blood pressure is 146/71. Respiratory rate is is 18. O2 sat is 95% on room air. There is no jugular venous distention. Carotid upstroke is normal. There is no bruit. Chest exam reveals good air entry bilaterally. Heart exam reveals first and second heart sounds. No gallop. No murmur. No rub. Abdomen is soft, nontender. Examination of extremities did not reveal any edema. Peripheral pulses are felt. EKG shows normal sinus rhythm. LABS: Labs show that the hemoglobin is 12.7. Two sets of troponins are negative. LDL cholesterol is normal. Creatinine is 0.7. ASSESSMENT: 1. Near syncope, probably vasovagal in origin secondary to abdominal pain. 2. Hypertension. 3. Paroxysmal atrial fibrillation. PLAN: I am going to obtain a 2D echo to evaluate her LV function. Start her on beta blockers both to deal with her paroxysmal A. fib and hypertension. I am going to obtain the rhythm strips and if she truly was in A. fib we are going to start her on an oral anticoagulant. MMODL / IJN: [id number] /
[2017-10-10] MEDS: METOPROLOL SUCCINATE (ER) 25 MG TAB.ER.24H PO SCH (09:21)
[2017-10-10] MEDS ORDERED: ENOXAPARIN 80 MG/0.8 ML SYRINGE SQ SCH (10:00)
[2017-10-10] MEDS ORDERED: traMADol 50 MG TAB PO PRN (11:27)
--- NOTE | 2017-10-10 11:38 | ECHOF ---
Referral Reason:afib MEASUREMENTS -------- HEIGHT: 162.6 cm WEIGHT: 89.8 kg BP: IVSd: 1.2 cm (0.6 - 1.1) LVIDd: 4.8 cm (3.9 - 5.3) LVPWd: 1.2 cm (0.6 - 1.1) IVSs: 1.3 cm LVIDs: 3.6 cm LVPWs: 1.0 cm LAESV Index (A-L): 25.40 ml/m Ao Diam: 3.5 cm (2.0 - 3.7) LA Diam: 3.6 cm (2.7 - 3.8) MV EXCURSION: 17.332 mm (> 18.000) MV EF SLOPE: 40 mm/s (70 - 150) EPSS: 0.2 cm MV E Trent: 0.69 m/s MV DecT: 373 ms MV A Trent: 0.95 m/s MV E/A Ratio: 0.73 AR PHT: 475 ms RAP: 5.00 mmHg RVSP: 12.51 mmHg FINDINGS -------- Undetermined rhythm. This was a technically adequate study. The left ventricular size is normal. There is mild concentric left ventricular hypertrophy. Overa ll left ventricular systolic function is low-normal with, an EF between 50 - 55 %. The right ventricle is normal in size. The left atrial size is normal. Normal LA size by volume 22+/-6 ml/m2. The right atrial size is normal. There is mild aortic valve sclerosis. There is mild aortic regurgitation. Mild mitral annular calcification present. Mild mitral regurgitation is present. Mild tricuspid regurgitation present. There is no evidence of pulmonary hypertension. The right v entricular systolic pressure, as measured by Doppler, is 12.51mmHg. There is no pulmonic regurgitation present. The aortic root size is normal. There is no pericardial effusion. CONCLUSIONS -------- 1. The left ventricular size is normal. 2. There is mild concentric left ventricular hypertrophy. 3. Overall left ventricular systolic function is low-normal with, an EF between 50 - 55 %. 4. The right ventricle is normal in size. 5. The left atrial size is normal. 6. The right atrial size is normal. 7. There is mild aortic valve sclerosis. 8. There is mild aortic regurgitation. 9. Mild mitral annular calcification present. 10. Mild mitral regurgitation is present. 11. Mild tricuspid regurgitation present. 12. There is no evidence of pulmonary hypertension. 13. The right ventricular systolic pressure, as measured by Doppler, is 12.51mmHg. 14. There is no pulmonic regurgitation present. 15. The aortic root size is normal. 16. There is no pericardial effusion. FORENSIC ANALYST: Nicole Hilario RDCS
[2017-10-10] MEDS: PANTOPRAZOLE 40 MG/10 ML VIAL IVP SCH ×2 (12:37→21:40)
--- NOTE | 2017-10-10 12:44 | P.HPIM ---
History of Present Illness 71-year-old female came in with persistent nausea vomiting and abdominal pain patient has lower abdominal cramping sensations and stressed in severity patient felt dizzy after eating half of the case and which started having this crampy abdominal pain without any diarrhea started having nausea vomiting. Patient was recently diagnosed with peptic ulcer disease was discharged on Prilosec. Patient used to use nonsteroidal anti-inflammatory medications at home, Advil. It's documented in the medication list that she is still taking the medication on as a patient patient didn't give me a clear history that she is actually taking this medication. I counseled that she cannot take this medication. Patient during her last admission present admission had CAT scans of the abdomen which did not show any significant abnormality patient urine analysis is bit abnormal but my suspicion is extremely low low that patient has urinary tract infection patient doesn't have any dysuria doesn't have fever doesn't have any leukocytosis. Surgery was consulted. Patient was evaluated by gastroneurology during her last hospitalization had an upper GI endoscopy which showed peptic ulcer disease and 3 counseling gastroenterology because of lower abdominal pain. Her lipase is within normal limits patient may and up needing a colonoscopy if she continues to have the symptoms looking for colitis. Patient was bit dizzy after the episode because of which patient is a was evaluated by cardiology. Patient has history of atrial fibrillation proximal although there are no rhythm strips available that shows atrial fibrillation presently patient is being continued on enoxaparin anticoagulation dose as she may require colonoscopy. Long-term anticoagulation decisions will be made at the time of discharge depending on the rhythm strips that we can review the PET all available and depending on the decision of colonoscopy if at all necessary. Echocardiogram showed normal ejection fraction no other significant abnormality. Patient doesn't have any diarrhea Review of Systems PHYSICAL EXAMINATION: GENERAL: The patient is alert and oriented x3, not in any acute distress. Well developed, well nourished. HEENT: Pupils are round and equally reacting to light. EOMI. No scleral icterus. No conjunctival pallor. Normocephalic, atraumatic. No pharyngeal erythema. No thyromegaly. CARDIOVASCULAR: S1 and S2 present. No murmurs, rubs, or gallops. PULMONARY: Chest is clear to auscultation, no wheezing or crackles. ABDOMEN: As mentioned in HPI MUSCULOSKELETAL: No joint swelling or deformity. EXTREMITIES: No cyanosis, clubbing, or pedal edema. NEUROLOGICAL: Gross neurological examination did not reveal any focal deficits. SKIN: No rashes. 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 History of Any Multi-Drug Resistant Organisms: MRSA Date of last positivie culture/infection: 1997 MDRO Source:: left shoulder Past Surgical History: Bariatric Surgery, Cholecystectomy, Heart Catheterization , Hysterectomy, Joint Replacement, Orthopedic Surgery Additional Past Surgical History / Comment(s): Bilateral knee replacement, left shoulder rotator cuff surgery, gastric bypass, D&C, EGD/colonoscopy, laryngeal tumor removed, Ganglion Cysts both wrists. Past Anesthesia/Blood Transfusion Reactions: No Reported Reaction Date of Last Stent Placement:: 2012 Past Psychological History: Anxiety, Depression, Panic Disorder Smoking Status: Former smoker Past Alcohol Use History: None Reported Past Drug Use History: None Reported - Past Family History Mother Family Medical History: Cancer, Congestive Heart Failure (CHF), Diabetes Mellitus, Hypertension Additional Family Medical History / Comment(s): Mother passed at 93. Father Family Medical History: Myocardial Infarction ([place]) Additional Family Medical History / Comment(s): Father of a [place] at the age of 39 yrs. Sister(s) Family Medical History: Cancer Brother(s) Family Medical History: Cancer, Myocardial Infarction ([place]) Medications and Allergies Home Medications Medication Instructions Recorded Confirmed Type Ibuprofen [Advil] 200 mg PO Q6HR PRN 08/13/17 10/10/17 History Acetaminophen Tab [Tylenol Tab] 650 mg PO Q4H PRN 10/08/17 10/10/17 History Levothyroxine Sodium [Synthroid] 100 mcg PO DAILY 10/10/17 10/10/17 History Omeprazole 40 mg PO DAILY 10/10/17 10/10/17 History Allergies Allergy/AdvReac Type Severity Reaction Status Date / Time No Known Allergies Allergy Verified 10/10/17 08:09 Physical Exam Vitals: Vital Signs Temp Pulse Pulse Resp BP BP BP 10/10/17 11:25 96.8 F L 65 18 98/50 10/10/17 08:00 98.8 F 63 10/10/17 04:00 97.0 F L 64 16 10/10/17 00:58 10/10/17 00:00 98.8 F 66 17 205/97 10/09/17 23:50 98.5 F 72 18 170/78 10/09/17 22:07 68 16 177/82 10/09/17 21:30 132 H 18 186/78 10/09/17 19:44 98.2 F 82 24 178/96 BP BP BP Pulse Ox 10/10/17 11:25 91 L 10/10/17 08:00 146/71 95 10/10/17 04:00 142/86 95 10/10/17 00:58 100 10/10/17 00:00 202/91 188/96 188/96 100 10/09/17 23:50 98 10/09/17 22:07 98 10/09/17 21:30 98 10/09/17 19:44 99 Intake and Output 10/09/17 10/10/17 10/10/17 22:59 06:59 14:59 Other: Voiding Method Toilet # Voids 2 1 Weight 82.554 kg 89.9 kg PHYSICAL EXAMINATION: GENERAL: The patient is alert and oriented x3, not in any acute distress. Well developed, well nourished. HEENT: Pupils are round and equally reacting to light. EOMI. No scleral icterus. No conjunctival pallor. Normocephalic, atraumatic. No pharyngeal erythema. No thyromegaly. CARDIOVASCULAR: S1 and S2 present. No murmurs, rubs, or gallops. PULMONARY: Chest is clear to auscultation, no wheezing or crackles. ABDOMEN: Soft, nontender, nondistended, normoactive bowel sounds. No palpable organomegaly. MUSCULOSKELETAL: No joint swelling or deformity. EXTREMITIES: No cyanosis, clubbing, or pedal edema. NEUROLOGICAL: Gross neurological examination did not reveal any focal deficits. SKIN: No rashes. Results CBC & Chem 7: 10/09/17 20:25 10/09/17 20:25 Labs: Abnormal Lab Results - Last 24 Hours (Table) 10/09/17 10/09/17 10/09/17 Range/Units 20:10 20:25 20:25 INR 1.2 H (<1.2) Carbon Dioxide 14 L (22-30) mmol/L TSH (0.465-4.680) mIU/L Urine Blood Trace H (Negative) Ur Leukocyte Esterase Moderate H (Negative) Urine WBC 12 H (0-5) /hpf Urine Mucus Rare H (None) /hpf 10/10/17 Range/Units 07:37 INR (<1.2) Carbon Dioxide (22-30) mmol/L TSH 94.600 H (0.465-4.680) mIU/L Urine Blood (Negative) Ur Leukocyte Esterase (Negative) Urine WBC (0-5) /hpf Urine Mucus (None) /hpf Thrombosis Risk Factor Assmnt - Choose All That Apply Any of the Below Risk Factors Present?: Yes Each Factor Represents 1 point: Obesity (BMI >25) Other Risk Factors: Yes Each Risk Factor Represents 2 Points: Age 61-74 years Other congenital or acquired thrombophilia - If yes, enter type in comment: No Thrombosis Risk Factor Assessment Total Risk Factor Score: 3 Thrombosis Risk Factor Assessment Level: Moderate Risk Assessment and Plan Plan: -Abdominal pain etiology is not clear may be related to food poisoning from the turkey sandwich although it will not be mediating this situation. Patient may have continued gastritis which is contributing to her symptoms and will will be discontinued and patient will be started on Protonix twice a day gastroneurology consultation since her abdominal pain is lower and that no other significant pathology was identified patient may end up needing colonoscopy as described above. -Dizziness probably vasovagal happened after throwing up -Possibly of proximal atrial fibrillation further management and guarding anticoagulations as mentioned above patient is on metoprolol which will be continued. -Hypertension-coronary artery disease -Osteoarthritis -Anxiety and depression For above-mentioned chronic medical problems patient will be resumed and continued on appropriate home medications.
[2017-10-10 12:58] LABS: T4, Free (Free Thyroxine) 0.59 ng/dL (0.78-2.19)
--- NOTE | 2017-10-10 13:09 | P.GSCN ---
History of Present Illness Consult date: 10/10/17 History of present illness: 71-year-old female presents to the emergency department with abdominal pain. She states that she recently visited the emergency department and was sent home due to normal findings on blood work and imaging. She returned to the emergency department yesterday after eating half of the sandwich and eating lightheaded and dizzy. She states that over the past few days she has had episodes of emesis. She denies any diarrhea episodes and states her bowel movements have been normal. She states that she has had a history of bariatric surgery for weight loss with a gastric bypass. She states that she has had a history of ulcers in the past. She has been told not to use NSAIDs secondary to this. She did have a recent upper endoscopy during her last visit. She currently states that her abdominal pain is improving. She still is having nausea and emesis episodes. She denies any fevers, chills, chest pain or shortness of breath. 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 History of Any Multi-Drug Resistant Organisms: MRSA Year Discovered:: 1997 MDRO Source:: left shoulder Past Surgical History: Bariatric Surgery, Cholecystectomy, Heart Catheterization , Hysterectomy, Joint Replacement, Orthopedic Surgery Additional Past Surgical History / Comment(s): Bilateral knee replacement, left shoulder rotator cuff surgery, gastric bypass, D&C, EGD/colonoscopy, laryngeal tumor removed, Ganglion Cysts both wrists. Past Anesthesia/Blood Transfusion Reactions: No Reported Reaction Date of Last Stent Placement:: 2012 Past Psychological History: Anxiety, Depression, Panic Disorder Smoking Status: Former smoker Past Alcohol Use History: None Reported Past Drug Use History: None Reported - Past Family History Mother Family Medical History: Cancer, Congestive Heart Failure (CHF), Diabetes Mellitus, Hypertension Additional Family Medical History / Comment(s): Mother passed at 93. Father Family Medical History: Myocardial Infarction ([place]) Additional Family Medical History / Comment(s): Father of a [place] at the age of 39 yrs. Sister(s) Family Medical History: Cancer Brother(s) Family Medical History: Cancer, Myocardial Infarction ([place]) Medications and Allergies Home Medications Medication Instructions Recorded Confirmed Type Ibuprofen [Advil] 200 mg PO Q6HR PRN 08/13/17 10/10/17 History Acetaminophen Tab [Tylenol Tab] 650 mg PO Q4H PRN 10/08/17 10/10/17 History Levothyroxine Sodium [Synthroid] 100 mcg PO DAILY 10/10/17 10/10/17 History Omeprazole 40 mg PO DAILY 10/10/17 10/10/17 History Allergies Allergy/AdvReac Type Severity Reaction Status Date / Time No Known Allergies Allergy Verified 10/10/17 08:09 Surgical - Exam Osteopathic Statement: *. No significant issues noted on an osteopathic structural exam other than those noted in the History and Physical/Consult. Vital Signs Temp Pulse Resp BP Pulse Ox 98.2 F 82 24 178/96 99 10/09/17 19:44 10/09/17 19:44 10/09/17 19:44 10/09/17 19:44 10/09/17 19:44 - General well nourished, no distress - Eyes normal ocular movement - ENT normal mucosa, no hearing loss - Neck trachea midline - Respiratory No difficulty with respiration - Abdomen Soft, nontender, nondistended, no rebound, no guarding - Neurologic normal sensation - Psychiatric oriented to time, oriented to person, oriented to place Results - Labs 10/09/17 20:25 10/09/17 20:25 Abnormal Lab Results - Last 24 Hours (Table) 10/09/17 10/09/17 10/09/17 Range/Units 20:10 20:25 20:25 INR 1.2 H (<1.2) Carbon Dioxide 14 L (22-30) mmol/L TSH (0.465-4.680) mIU/L Urine Blood Trace H (Negative) Ur Leukocyte Esterase Moderate H (Negative) Urine WBC 12 H (0-5) /hpf Urine Mucus Rare H (None) /hpf 10/10/17 Range/Units 07:37 INR (<1.2) Carbon Dioxide (22-30) mmol/L TSH 94.600 H (0.465-4.680) mIU/L Urine Blood (Negative) Ur Leukocyte Esterase (Negative) Urine WBC (0-5) /hpf Urine Mucus (None) /hpf Diabetes panel 10/09/17 10/10/17 Range/Units 20:25 03:07 Sodium 137 (137-145) mmol/L Potassium 3.6 (3.5-5.1) mmol/L Chloride 106 (98-107) mmol/L Carbon Dioxide 14 L (22-30) mmol/L BUN 11 (7-17) mg/dL Creatinine 0.73 (0.52-1.04) mg/dL Glucose 80 (74-99) mg/dL Calcium 9.0 (8.4-10.2) mg/dL AST 31 (14-36) U/L ALT 19 (9-52) U/L Alkaline Phosphatase 70 (38-126) U/L Total Protein 7.0 (6.3-8.2) g/dL Albumin 4.2 (3.5-5.0) g/dL Triglycerides 123 (<150) mg/dL HDL Cholesterol 50 (40-60) mg/dL Thyroid panel 10/10/17 Range/Units 07:37 TSH 94.600 H (0.465-4.680) mIU/L Calcium panel 10/09/17 Range/Units 20:25 Calcium 9.0 (8.4-10.2) mg/dL Albumin 4.2 (3.5-5.0) g/dL Pituitary panel 10/09/17 10/10/17 Range/Units 20:25 07:37 Sodium 137 (137-145) mmol/L Potassium 3.6 (3.5-5.1) mmol/L Chloride 106 (98-107) mmol/L Carbon Dioxide 14 L (22-30) mmol/L BUN 11 (7-17) mg/dL Creatinine 0.73 (0.52-1.04) mg/dL Glucose 80 (74-99) mg/dL Calcium 9.0 (8.4-10.2) mg/dL TSH 94.600 H (0.465-4.680) mIU/L Adrenal panel 10/09/17 Range/Units 20:25 Sodium 137 (137-145) mmol/L Potassium 3.6 (3.5-5.1) mmol/L Chloride 106 (98-107) mmol/L Carbon Dioxide 14 L (22-30) mmol/L BUN 11 (7-17) mg/dL Creatinine 0.73 (0.52-1.04) mg/dL Glucose 80 (74-99) mg/dL Calcium 9.0 (8.4-10.2) mg/dL Total Bilirubin 0.5 (0.2-1.3) mg/dL AST 31 (14-36) U/L ALT 19 (9-52) U/L Alkaline Phosphatase 70 (38-126) U/L Total Protein 7.0 (6.3-8.2) g/dL Albumin 4.2 (3.5-5.0) g/dL - Imaging CT scan - abdomen: report reviewed, image reviewed (No acute findings noted) CT scan - pelvis: report reviewed, image reviewed Assessment and Plan (1) Abdominal cramping Narrative/Plan: 71-year-old female with abdominal pain, nausea and vomiting - Patient is still struggling tolerating solid foods, will revert to clear liquid diet - Continue PPI twice a day - Patient is having solid bowel movements and no diarrhea, less likely colitis, but we'll continue to follow - This does not appear to currently correlate with her previous bariatric surgery, we will continue medical maintenance at this time and continue to provide surgical recommendations as necessary Thank you for this consultation, we look forward in providing in this patient's care Current Visit: Yes Status: Acute Code(s): R10.9 - UNSPECIFIED ABDOMINAL PAIN SNOMED Code(s): 629366484
[2017-10-10] MEDS: METOCLOPRAMIDE 5 MG/ML 2 ML VIAL IVP SCH ×2 (17:23→23:51)
[2017-10-10] MEDS: HEPARIN SODIUM,PORCINE 5,000 UNIT/ML 1 ML VIAL SQ SCH (21:40)
[2017-10-11] MEDS: METOCLOPRAMIDE 5 MG/ML 2 ML VIAL IVP SCH ×2 (06:15→11:29)
[2017-10-11] MEDS: LEVOTHYROXINE 100 MCG TAB PO SCH (06:34)
[2017-10-11] MEDS: METOPROLOL SUCCINATE (ER) 25 MG TAB.ER.24H PO SCH (08:51)
[2017-10-11] MEDS: ASPIRIN 325 MG TAB PO SCH (08:52)
[2017-10-11] MEDS: HEPARIN SODIUM,PORCINE 5,000 UNIT/ML 1 ML VIAL SQ SCH (08:52)
[2017-10-11] MEDS: PANTOPRAZOLE 40 MG/10 ML VIAL IVP SCH (08:52)
--- NOTE | 2017-10-11 09:35 | P.PN ---
Subjective This is a pleasant 71-year-old female past medical history significant for hypothyroidism, bariatric surgery and hypertension. She initially presented to the hospital for symptoms of abdominal pain, dizziness and near syncope. An echocardiogram was obtained yesterday which reveals preserved left ventricular systolic function with ejection fraction 50-55%, mild aortic valve sclerosis, mild aortic regurgitation, mild MR and mild TR. Telemetry tracings have been reviewed for this admission and there is been no evidence of atrial fibrillation. She states she was told in the emergency department here as well as a [place] that she had been in atrial fibrillation. However there is no documentation of that within the ER documentation here nor is there any telemetry tracings to confirm that claim. She denies symptoms of chest pain, palpitations, dizziness, nausea, vomiting or shortness of breath. Yesterday she was started on Toprol 25 mg daily. Blood pressure 130/ 63 heart rate 54 afebrile maintaining oxygen saturation on room air. There are no new labs to review. She is also been seen in consultation by general surgery. No plans for surgical intervention at this time. Objective - Vital Signs Vital signs: Vital Signs Temp 97.0 F L 10/11/17 06:02 Pulse 66 10/11/17 08:30 Resp 17 10/11/17 06:02 BP 133/63 10/11/17 06:02 Pulse Ox 95 10/11/17 08:30 Intake & Output 10/10/17 10/11/17 10/11/17 18:59 06:59 18:59 Intake Total 0 Balance 0 Intake: Oral 0 Other: # Voids 1 1 # Bowel Movements 0 - Exam GENERAL: Well-appearing, well-nourished and in no acute distress. Obese. NECK: Supple without JVD or thyromegaly. LUNGS: Breath sounds clear to auscultation bilaterally. Respiration equal and unlabored. No wheezes, rales or rhonchi. HEART: Regular rate and rhythm without murmurs, rubs or gallops. S1 and S2 heard. EXTREMITIES: Normal range of motion, no edema. No clubbing or cyanosis. Peripheral pulses intact. - Labs CBC & Chem 7: 10/09/17 20:25 10/09/17 20:25 Labs: Abnormal Lab Results - Last 24 Hours (Table) 10/10/17 Range/Units 07:37 TSH 94.600 H (0.465-4.680) mIU/L Free T4 0.59 L (0.78-2.19) ng/dL Assessment and Plan Assessment: ASSESSMENT Near syncope, probably vasovagal in origin secondary to abdominal pain Hypertension Possibility of paroxysmal atrial fibrillation, a documented PLAN We will apply a 30 day event monitor to further assess the possibility of atrial fibrillation. She can follow-up with Dr. Beasley in 4 weeks. Continue with Toprol as was previously ordered. We will not initiate an anticoagulant at this time since we have not documented any instance of atrial fibrillation. Stable from a cardiac perspective for discharge when cleared by primary care team. Nurse Practitioner note has been reviewed, I agree with a documented findings and plan of care. Patient was seen and examined.
--- NOTE | 2017-10-11 13:24 | P.PN ---
Subjective Progress Note Date: 10/11/17 Patient seen and examined at bedside. States her abdominal pain is improved. States lower abdominal pain is minimal. Tolerated clear liquid diet without any nausea or emesis episodes. Objective - Vital Signs Vital signs: Vital Signs Temp 97.0 F L 10/11/17 06:02 Pulse 66 10/11/17 08:30 Resp 17 10/11/17 06:02 BP 133/63 10/11/17 06:02 Pulse Ox 95 10/11/17 08:30 Intake & Output 10/10/17 10/11/17 10/11/17 18:59 06:59 18:59 Intake Total 0 Balance 0 Intake: Oral 0 Other: # Voids 1 1 # Bowel Movements 0 - Constitutional General appearance: Present: cooperative, no acute distress - EENT ENT: Present: hearing grossly normal - Respiratory Details: No difficulty with respiration - Gastrointestinal Gastrointestinal Comment(s): Soft, nontender, nondistended, no rebound, no guarding - Musculoskeletal Musculoskeletal: Present: generalized weakness - Psychiatric Psychiatric: Present: A&O x's 3, appropriate affect - Labs CBC & Chem 7: 10/09/17 20:25 10/09/17 20:25 Assessment and Plan (1) Abdominal cramping Narrative/Plan: 71-year-old female with abdominal pain, nausea and vomiting - Advance diet as tolerated - Continue PPI twice a day - Patient is having solid bowel movements and no diarrhea, less likely colitis, but we'll continue to follow - This does not appear to currently correlate with her previous bariatric surgery, we will continue medical maintenance at this time and continue to provide surgical recommendations as necessary - Will likely need home PPI on discharge Current Visit: Yes Status: Acute Code(s): R10.9 - UNSPECIFIED ABDOMINAL PAIN SNOMED Code(s): 444819436
[2017-10-11 15:02] VITALS: BP 163/85; PULSE 68; RESP 19; TEMP 97.8
--- NOTE | 2017-10-11 15:25 | P.DS ---
Providers Date of admission: 10/09/17 23:17 Expected date of discharge: 10/11/17 Attending physician: Benji Su Consults: 10/09/17 23:17 Consult Physician Routine Consulting Provider: Durga Rojas Consult Reason/Comments: near syncope Do you want consulting provider notified?: Yes 10/09/17 23:20 Consult Physician Routine Consulting Provider: Freda Quijano Consult Reason/Comments: abdominal pain Do you want consulting provider notified?: Yes 10/10/17 11:27 Consult Physician Routine Consulting Provider: Hoda Beasley Consult Reason/Comments: Abdominal pain Do you want consulting provider notified?: Yes Primary care physician: Johnny Putnam MD Hospital Course: Final Diagnoses: -Abdominal pain etiology is not clear may be related to food poisoning from the turkey sandwich although it will not be mediating this situation. Patient may have continued gastritis, which is contributing to her symptoms, possible nonspecific colitis. Outpatient GI F/U since her abdominal pain is lower and that no other significant pathology was identified. patient may end up needing colonoscopy. -Dizziness probably vasovagal happened after throwing up. -Possibly of proximal atrial fibrillation further management and guarding anticoagulations as mentioned above patient is on metoprolol which will be continued. Event monitor at discharge. -Hypertension-coronary artery disease -Osteoarthritis -Anxiety and depression Hospital course:71-year-old female came in with persistent nausea vomiting and abdominal pain patient has lower abdominal cramping sensations and stressed in severity patient felt dizzy after eating half of the case and which started having this crampy abdominal pain without any diarrhea started having nausea vomiting. Patient was recently diagnosed with peptic ulcer disease was discharged on Prilosec. Patient used to use nonsteroidal anti-inflammatory medications at home, Advil. It's documented in the medication list that she is still taking the medication on as a patient patient didn't give me a clear history that she is actually taking this medication. I counseled that she cannot take this medication. Patient during her last admission present admission had CAT scans of the abdomen which did not show any significant abnormality patient urine analysis is bit abnormal but my suspicion is extremely low low that patient has urinary tract infection patient doesn't have any dysuria doesn't have fever doesn't have any leukocytosis. Surgery was consulted. Patient was evaluated by gastroneurology during her last hospitalization had an upper GI endoscopy which showed peptic ulcer disease and 3 counseling gastroenterology because of lower abdominal pain. Her lipase is within normal limits patient may and up needing a colonoscopy if she continues to have the symptoms looking for colitis. Patient was bit dizzy after the episode because of which patient is a was evaluated by cardiology. Patient has history of atrial fibrillation proximal although there are no rhythm strips available that shows atrial fibrillation presently patient is being continued on enoxaparin anticoagulation dose as she may require colonoscopy. Long-term anticoagulation decisions will be made at the time of discharge depending on the rhythm strips that we can review the PET all available and depending on the decision of colonoscopy if at all necessary. Echocardiogram showed normal ejection fraction no other significant abnormality. Patient doesn't have any diarrhea Tolerating soft diet with minimal cramping reported. Denies nausea vomiting. Reporting solid bowel movements, no diarrhea. Maintained on PPI twice a day. Significant clinical improvement Evaluated and cleared by surgery, cardiology. Patient will be discharged home in a stable condition with guarded prognosis. Patient has been instructed to follow-up with GI outpatient for potential colonoscopy. EXAMINATION: GENERAL: The patient is alert and oriented x3, not in any acute distress. Well developed, well nourished. CARDIOVASCULAR: S1 and S2 present. No murmurs, rubs, or gallops. PULMONARY: Chest is clear to auscultation, no wheezing or crackles. ABDOMEN: Soft, nontender, nondistended, normoactive bowel sounds. No palpable organomegaly. NEUROLOGICAL: Gross neurological examination did not reveal any focal deficits. The impression and plan of care has been dictated as directed. : I performed a history and examination of this patient, discussed the same with the dictator. I agree with the dictator's note ,documented as a scribe. Any additional findings or plans will be noted. Time taken: 35 minutes Patient Condition at Discharge: Stable Plan - Discharge Summary New Discharge Prescriptions: New Metoprolol Succinate (ER) [Toprol XL] 25 mg PO DAILY #30 tab.er.24h Pantoprazole [Protonix] 40 mg PO AC-BID #60 tablet.dr Jayant Levothyroxine Sodium [Synthroid] 100 mcg PO DAILY Discontinued Acetaminophen Tab [Tylenol Tab] 650 mg PO Q4H PRN PRN Reason: Pain Omeprazole 40 mg PO DAILY Discharge Medication List Levothyroxine Sodium [Synthroid] 100 mcg PO DAILY 07/05/18 [History] Metoprolol Succinate (ER) [Toprol XL] 25 mg PO DAILY #30 tab.er.24h 10/11/17 [Rx ] Pantoprazole [Protonix] 40 mg PO AC-BID #60 tablet. 10/11/17 [Rx] Follow up Appointment(s)/Referral(s): Johnny Putnam MD [Primary Care Provider] - 3 Days Riley Beasley MD [STAFF PHYSICIAN] - 11/13/17 4:00 pm Hoda Beasley MD [STAFF PHYSICIAN] - 2 Weeks (Arrange for potential colonoscopy) Ambulatory/Diagnostic Orders: Complete Blood Count w/diff [LAB.AMB] Time Frame: 3 Days, Location: None Selected Activity/Diet/Wound Care/Special Instructions: Aspirin on hold, suspect gastritis, possible nonspecific colitis. Event monitor as per cardiology. Confirm cardiology follow up appointment prior to discharge. activity as tolerated low fiber diet continue 24 hour event monitor until follow up appointment
[2017-10-11] MEDS ORDERED: PANTOPRAZOLE 40 MG TABLET PO SCH (17:30)
--- NOTE | 2017-10-21 18:07 | P.CEMON ---
Event monitor worn only for a few days Sinus rhythm with PVCs 1 brief nonsustained run of slow atrial tachycardia
== END 2017-10-11 15:55 | disposition home or self-care (01) ==
LOC: EC 19:41 → 6SEL 23:17 → 4MS4W 10-10 18:22
PROVIDERS: ADMIT Internal Medicine; ATTEND Internal Medicine
DX: R10.30 Lower abdominal pain, unspecified (principal); R55 Syncope and collapse; R11.2 Nausea with vomiting, unspecified; E03.9 Hypothyroidism, unspecified; K21.9 Gastro-esophageal reflux disease without esophagitis; R42 Dizziness and giddiness; E66.9 Obesity, unspecified; Z68.34 Body mass index [BMI] 34.0-34.9, adult; R53.1 Weakness; M19.90 Unspecified osteoarthritis, unspecified site; I25.10 Atherosclerotic heart disease of native coronary artery without angina pectoris; I10 Essential (primary) hypertension; G89.29 Other chronic pain; M54.9 Dorsalgia, unspecified; F41.0 Panic disorder [episodic paroxysmal anxiety]; F32.9 Major depressive disorder, single episode, unspecified; Z79.890 Hormone replacement therapy; Z98.84 Bariatric surgery status; Z96.653 Presence of artificial knee joint, bilateral; Z87.11 Personal history of peptic ulcer disease; Z87.828 Personal history of other (healed) physical injury and trauma; Z85.21 Personal history of malignant neoplasm of larynx; Z86.14 Personal history of Methicillin resistant Staphylococcus aureus infection; Z90.710 Acquired absence of both cervix and uterus; Z90.49 Acquired absence of other specified parts of digestive tract; Z87.891 Personal history of nicotine dependence; Z82.49 Family history of ischemic heart disease and other diseases of the circulatory system; Z83.3 Family history of diabetes mellitus; Z80.9 Family history of malignant neoplasm, unspecified; F41.9 Anxiety disorder, unspecified
CPT/HCPCS: 96374 ×2; 96375 ×3; 99285 ×2; 96376 ×2; 96372 ×2; 93005 ×2; 36415; 93306; 93270; 93271; 84439; 80061; 80053; 84443; 82150; 82550 ×2; 82553 ×2; 83605; 83690; 84484 ×2; 85025; 85610; 85730; 81001; 74019; 74177; G0378 ×3; J0360; J1644 ×2; J2765 ×2; J2405 ×2; J1650; C9113 ×2; J1170 ×2; Q9967

== ENCOUNTER 2017-10-20 11:21 | Emergency (ER) | payer MEDICARE ==
[2017-10-20 12:00] VITALS: RESP 18
--- NOTE | 2017-10-20 12:21 | ED ---
Extremity Problem HPI - General Chief complaint: Extremity Problem,Nontraumatic Stated complaint: Foot/leg swelling Time Seen by Provider: 10/20/17 12:08 Source: patient, RN notes reviewed Mode of arrival: wheelchair Limitations: no limitations - History of Present Illness Initial comments: 71-year-old female presents emergency Department chief complaint of left leg swelling. She states initially was just her foot though it when she went to sleep and woke up this morning her leg was swollen her foot has reduced in size. Denies any fever, chills or any redness or leg. Patient states that she called her primary care physician who sent her here. Patient also states that she was supposed to give her Ativan for her plane flight though they were unable to obtain that prescription and she leaves. Patient reports no chest pain or shortness of breath denies any other complaints at this time. - Related Data Home Medications Medication Instructions Recorded Confirmed Levothyroxine Sodium [Synthroid] 100 mcg PO DAILY 10/10/17 10/10/17 Previous Rx's Medication Instructions Recorded Metoprolol Succinate (ER) [Toprol 25 mg PO DAILY #30 tab.er.24h 10/11/17 XL] Pantoprazole [Protonix] 40 mg PO AC-BID #60 tablet.dr 10/11/17 LORazepam [Ativan] 0.5 mg PO ONCE #2 tab 10/20/17 Allergies Allergy/AdvReac Type Severity Reaction Status Date / Time No Known Allergies Allergy Verified 10/20/17 12:00 Review of Systems ROS Statement: Those systems with pertinent positive or pertinent negative responses have been documented in the HPI. ROS Other: All systems not noted in ROS Statement are negative. 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 History of Any Multi-Drug Resistant Organisms: MRSA Date of last positivie culture/infection: 1997 MDRO Source:: left shoulder Past Surgical History: Bariatric Surgery, Cholecystectomy, Heart Catheterization , Hysterectomy, Joint Replacement, Orthopedic Surgery Additional Past Surgical History / Comment(s): Bilateral knee replacement, left shoulder rotator cuff surgery, gastric bypass, D&C, EGD/colonoscopy, laryngeal tumor removed, Ganglion Cysts both wrists. Past Anesthesia/Blood Transfusion Reactions: No Reported Reaction Date of Last Stent Placement:: 2012 Past Psychological History: Anxiety, Depression, Panic Disorder Smoking Status: Former smoker Past Alcohol Use History: None Reported Past Drug Use History: None Reported - Past Family History Mother Family Medical History: Cancer, Congestive Heart Failure (CHF), Diabetes Mellitus, Hypertension Additional Family Medical History / Comment(s): Mother passed at 93. Father Family Medical History: Myocardial Infarction ([place]) Additional Family Medical History / Comment(s): Father of a [place] at the age of 39 yrs. Sister(s) Family Medical History: Cancer Brother(s) Family Medical History: Cancer, Myocardial Infarction ([place]) General Exam Limitations: no limitations General appearance: alert, in no apparent distress Head exam: Present: atraumatic, normocephalic, normal inspection Respiratory exam: Present: normal lung sounds bilaterally. Absent: respiratory distress, wheezes, rales, rhonchi, stridor Cardiovascular Exam: Present: regular rate, normal rhythm, normal heart sounds. Absent: systolic murmur, diastolic murmur, rubs, gallop, clicks GI/Abdominal exam: Present: soft, normal bowel sounds. Absent: distended, tenderness, guarding, rebound, rigid Extremities exam: Present: other (Mild swelling to the left leg which is nonpitting pedal pulses equal bilaterally normal color normal warmth there is no tenderness patient has bilateral old scars over her knee) Skin exam: Present: warm, dry, intact, normal color. Absent: rash Course Vital Signs 10/20/17 11:58 Temperature 98.0 F Pulse Rate 72 Respiratory 18 Rate Blood Pressure 195/93 O2 Sat by Pulse 97 Oximetry Medical Decision Making - Medical Decision Making 71-year-old female presented for left leg swelling. Patient was sent to rule out DVT which she had old trauma showed no acute DVT. Patient also requests medication for anxiety related to her plane flight. Patient will be discharged at this time return parameters discussed. Disposition Clinical Impression: Left leg swelling, Anxiety Disposition: HOME SELF-CARE Condition: Stable Instructions: Leg Edema (ED) Additional Instructions: Please return to the Emergency Department if symptoms worsen or any other concerns. Prescriptions: LORazepam [Ativan] 0.5 mg PO ONCE #2 tab Is patient prescribed a controlled substance at d/c from ED?: Yes When asked, does pt state using other controlled substances?: No Referrals: Johnny Putnam MD [Primary Care Provider] - 1-2 days Time of Disposition: 13:15
--- NOTE | 2017-10-20 13:10 | US ---
EXAMINATION TYPE: US venous doppler duplex LE LT DATE OF EXAM: 10/20/2017 12:56 PM COMPARISON: NONE CLINICAL HISTORY: Pain. Patient states swollen foot yesterday= resolved. Patient states swollen leg today. No redness. Discomfort. No hx of blood clots or on blood thinners. SIDE PERFORMED: Left TECHNIQUE: The lower extremity deep venous system is examined utilizing real time linear array sonog charles with graded compression, doppler sonography and color-flow sonography. VESSELS IMAGED: External Iliac Vein (EIV) Common Femoral Vein Deep Femoral Vein Greater Saphenous Vein * Femoral Vein Popliteal Vein Small Saphenous Vein * Proximal Calf Veins (* superficial vessels) Left Leg: Negative for DVT No popliteal fossa lesion is seen. IMPRESSION: THIS EXAMINATION IS NEGATIVE FOR DVT WITHIN THE LEFT LEG.
[2017-10-20 13:23] VITALS: BP 175/82; PULSE 78; TEMP 98.2
== END 2017-10-20 13:20 | disposition home or self-care (01) ==
LOC: EC 11:21
DX: M79.89 Other specified soft tissue disorders (principal); F41.9 Anxiety disorder, unspecified; Z87.891 Personal history of nicotine dependence; Z79.899 Other long term (current) drug therapy; Z86.14 Personal history of Methicillin resistant Staphylococcus aureus infection; Z96.653 Presence of artificial knee joint, bilateral
CPT/HCPCS: 99283

== ENCOUNTER 2017-12-02 08:31 | Day surgery (SDC) | payer MEDICARE ==
[2017-11-28 09:12] VITALS: BMI 31.4
[2017-12-02] MEDS ORDERED: LIDOCAINE 1% 20 ML VIAL (10MG/ML) FOR IV START INTRADERMA ONE (09:00)
[2017-12-02 09:03] VITALS: TEMP 97.7
--- NOTE | 2017-12-02 09:19 | P.PCN ---
Date of Procedure: 12/02/17 Procedure(s) Performed: PREOPERATIVE DIAGNOSIS: 1- Lumbar herniated Disc Diseases 2-Lumbar spondylosis with Facet arthropathy without myelopathy. 3-lumbar radiculopathy POSTOPERATIVE DIAGNOSIS: 1-Lumber herniated Disc Diseases 2-Lumbar spondylosis with Facet arthropathy without myelopathy. 3-lumbar radiculopathy. PROCEDURE 1. Lumbar epidural steroid injection under fluoroscopic guidance at the L5-S1 level. 2. Lumbar epidurogram. ANESTHESIA: Local with 1% lidocaine 3 ml and , moderate sedation with intravenous Versed 1 mg ,and fentanyle 50 Mcg EBL: Minimal PROCEDURE INDICATION: The patient with low back pain and radiculitis symptoms unresponsive to conservative treatment. Fluoroscopy was used to optimize visualization of the needle placement and to maximize safety. PROCEDURE DESCRIPTION / TECHNIQUE: The patient was seen and identified in the preoperative area. Risks, benefits , complications including but not limited to infections ,bleeding ,allergic reaction to the medications ,nerve damage and not complete pain releife , and alternatives were discussed with the patient. The patient agreed to proceed with the procedure and signed the consent. IV was started, and vital signs were stable. Patient was taken to the OR and time out was completed. The patient was placed in the prone position on procedure table and a pillow was placed under the abdomen to reduce lumbar lordosis. The lumbosacral area was prepped and draped in the usual sterile fashion.ere closely monitored during the procedure. Conscious sedation was used during the procedure to decrease patients anxiety. Vital signs was monitered during the entire procedure. Using anterior-posterior fluoroscopy, the L5-S1 interlaminar space was identified and the skin over this site was marked and then infiltrated with 1% lidocaine subcutaneously. Subsequently, a 20-gauge Tuohy epidural needle was inserted and advanced toward the epidural space using the ``Loss of resistance technique and guided by AP and lateral fluoroscopy. The correct needle position in the epidural space was verified with the injection of 2 mL of the water soluble contrast dye Isovue 200 contrast and observing an excellent epidurogram with the epidural spread of the dye, after negative aspiration for blood and CSF and in the absence of paresthesias. Again after negative aspiration, a 6 ml mixture containing 40 mg of Depo-medrol and 2 ml of preservative free Normal Saline, and 2 ml of preservative free lidocaine 1% solution was injected and a washout of epidurogram was seen. Needle was withdrawn intact, skin was cleansed, and bandages were applied. COMPLICATIONS: None DISPOSITION / PLANS: The patient was placed in a supine position and transferred to the recovery area in a stable condition for observation. There was no evidence of lower extremity motor or sensory deficit after the procedure. Patient was discharged from the recovery room after meeting discharge criteria. Home discharge instructions were given to the patient by the staff. The patient was reexamined prior to discharge. The patient will schedule a follow up in the clinic in 2-4 weeks.
[2017-12-02] MEDS ORDERED: hydrALAZINE HCL 20 MG/ML 1 ML VIAL IVP STA (09:22)
[2017-12-02] MEDS ORDERED: IV FLUID CONTINUATION 1,000 ML IV ONE (09:25)
[2017-12-02 09:45] VITALS: RESP 16
[2017-12-02 09:57] VITALS: BP 129/67; PULSE 57
--- NOTE | 2017-12-02 09:58 | FL ---
Fluoroscopy History: Lumbar Epi Inj Lumbar david inj. 3 sec fluoro. 1 image scanned.
== END 2017-12-02 10:11 | disposition home or self-care (01) ==
LOC: ORPAIN 08:31
PROVIDERS: ATTEND Specialist
DX: M51.16 Intervertebral disc disorders with radiculopathy, lumbar region (principal); M47.26 Other spondylosis with radiculopathy, lumbar region
CPT/HCPCS: 62321; 99152; J2250; J0360; J1030; J3010; Q9966

== ENCOUNTER → 2018-02-10 | Outpatient (CLI) | payer MEDICARE ==
[2018-02-10 12:40] VITALS: RESP 16
[2018-02-10 12:43] VITALS: BP 135/78; PULSE 71
--- NOTE | 2018-02-10 12:58 | P.PAINPG ---
Subjective Progress Note Date: 02/10/18 Tanja presents today for follow-up. She continues to have low back pain. She reports she had significant improvement her low back pain after epidural injections are done early this year. She continues to have low back pain across both sides most of the right side going down into her legs at times. She is not able to walk for long periods of time secondary to her pain. She reports she lives in apartment building which she does have access to a gym but was about once a week. She reports her primary care physician prescribed her Boone a few days ago and prescribed her Boone to be taken every 6 hours. I advised the patient that its in her best interest not using Boone and continue using [id number] medications and to strengthen her exercise routine to daily. Objective - Vital Signs Vital signs: Vital Signs Temp Pulse 71 02/10/18 12:28 Resp 16 02/10/18 12:28 BP 135/78 02/10/18 12:28 Pulse Ox 94 L 02/10/18 12:28 Intake & Output 02/09/18 02/10/18 02/10/18 18:59 06:59 18:59 Weight 83.915 kg - Exam PHYSICAL EXAM: Constitutional: Awake and alert no distress Cardiovascular exam: Regular rate, no lower extremity edema, palpable pulses bilaterally Respiratory exam: No audible wheezing, no accessory muscle usage Abdominal exam: Soft nontender Muscular skeletal exam: - Cervical spine: Nontender to palpation bilaterally. Range of motion is not limited. Spurling is negative bilateral. Facet loading is negative bilaterally - Lumbar spine: Preserved lumbar lordosis. No changes in skin. tender palpation bilateral. Patient has full range of motion in flexion and extension as well as lateral sidebending. Straight leg raise is positive on the right. Facet loading is negative. tender over the SI joints on the left. RONA positive on the left, Gaenselons negative, SI Joint compression negative. Neuro exam: Normal sensation bilateral upper and lower extremities. Deep tendon reflexes are 2+ bilaterally(TKR B/L). Thakkar's is negative Psychiatric exam: Cooperative, good insight Assessment and Plan Assessment: Degenerative disc disease Lumbar radiculopathy Spinal stenosis Plan: We will repeat lumbar epidural steroid injection at L4-L5 level. This will hopefully give the patient enough pain relief to move forward with her increase in exercise routine. PQRS Measure Charge Sheet Measure #130: Documentation of Current Meds in Medical Chart: Patient's medications documented in chart Measure #226: Tobacco Use: Screen & Cessation Intervention: Pt not a tobacco user Measure #111: Pneumonia Vaccination: Pneumococcal vaccine administered or previously received Measure #47: Advance Care Plan: Advance care planning discussed & documented, plan or surrogate given Measure #412: Opioid Treatment Agreement: No documentation of signed opioid treatment agreement Measure #317: Preventitive Care & Scrn High Bld Press & F/U: Normal blood pressure, f/u not required Measure #128: Body Mass Index (BMI) Screening & Follow-up: BMI documented ABOVE normal parameters - f/u documented Measure #131: Pain Assessment & Follow-up: Pain positive & plan documented PQRS Narrative: Smoking Status Former smoker Do You Want the Pneumonia No Vaccine AT THIS TIME? Blood Pressure 135/78 Pain Intensity [Bilateral 8 Lower Back] Scale Used Numeric (1 - 10) Hx Alcohol Use (MH) No Home Medications: Ambulatory Orders Levothyroxine Sodium [Synthroid] 200 mcg PO DAILY 10/10/17 Metoprolol Succinate (ER) [Toprol XL] 25 mg PO DAILY #30 tab.er.24h 10/11/17 Pantoprazole [Protonix] 40 mg PO AC-BID #60 tablet.dr 10/11/17 LORazepam [Ativan] 0.5 mg PO HS 11/28/17 HYDROcodone/APAP 7.5-325MG [Boone 7.5-325] 1 tab PO Q6HR PRN 02/10/18 Controlled Substance Measures - Controlled Substance Measures Is patient prescribed a controlled substance at discharge?: No
== END | disposition home or self-care (01) ==
LOC: PNWHC3 12:16
PROVIDERS: ATTEND Hospitalist
DX: M48.061 Spinal stenosis, lumbar region without neurogenic claudication (principal); M51.16 Intervertebral disc disorders with radiculopathy, lumbar region; Z87.891 Personal history of nicotine dependence; Z79.899 Other long term (current) drug therapy
CPT/HCPCS: 99211

== ENCOUNTER 2018-02-26 14:51 | Inpatient (IN) | payer MEDICARE ==
[2018-02-26] MEDS ORDERED: MECLIZINE 12.5 MG TAB PO STA (16:19)
[2018-02-26] MEDS ORDERED: SODIUM CHLORIDE 0.9% 1,000 ML IV ONE (16:19)
--- NOTE | 2018-02-26 16:20 | ED ---
General Adult HPI - General Chief complaint: Dizziness Stated complaint: Dizziness Time Seen by Provider: 02/26/18 16:11 Source: patient, RN notes reviewed, old records reviewed Mode of arrival: ambulatory Limitations: no limitations - History of Present Illness Initial comments: 72-year-old female presenting for evaluation of lightheadedness and dizziness. Patient states that she has not eaten well over the past 2 days. She's had decreased appetite as well as several episodes of nausea and vomiting. Denies focal weakness or numbness. Denies chest pain. She did have a headache although this is resolved prior to evaluation today. She states that when she stood to go to the bathroom she felt lightheaded. Denies chest pain or palpitations with this episode. She has history of hypertension. Denies diarrhea. Denies fever. - Related Data Home Medications Medication Instructions Recorded Confirmed Acetaminophen Tab [Tylenol Tab] 650 mg PO Q4H PRN 02/17/18 02/26/18 HYDROcodone/APAP 5-325MG [[place] 1 tab PO Q6HR 02/26/18 02/26/18 5-325] Levothyroxine Sodium [Synthroid] 100 mcg PO DAILY 02/26/18 02/26/18 Multivitamins, Thera [Multivitamin 1 tab PO DAILY 02/26/18 02/26/18 (formulary)] traZODone HCL [TraZODone HCl] 50 mg PO HS 02/26/18 02/26/18 Previous Rx's Medication Instructions Recorded Metoprolol Succinate (ER) [Toprol 25 mg PO DAILY #30 tab.er.24h 10/11/17 XL] Allergies Allergy/AdvReac Type Severity Reaction Status Date / Time vancomycin Allergy Rash/Hives Verified 02/26/18 16:33 Review of Systems ROS Statement: Those systems with pertinent positive or pertinent negative responses have been documented in the HPI. ROS Other: All systems not noted in ROS Statement are negative. 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 History of Any Multi-Drug Resistant Organisms: MRSA Date of last positivie culture/infection: 1997 MDRO Source:: left shoulder Past Surgical History: Bariatric Surgery, Cholecystectomy, Heart Catheterization , Hysterectomy, Joint Replacement, Orthopedic Surgery Additional Past Surgical History / Comment(s): Bilateral knee replacement, left shoulder rotator cuff surgery, gastric bypass, D&C, EGD/colonoscopy, laryngeal tumor removed, Ganglion Cysts both wrists.PAIN CLINIC INJECTIONS Past Anesthesia/Blood Transfusion Reactions: No Reported Reaction Date of Last Stent Placement:: 2012 Past Psychological History: Anxiety, Depression, Panic Disorder Smoking Status: Former smoker Past Alcohol Use History: None Reported Past Drug Use History: None Reported - Past Family History Mother Family Medical History: Cancer, Congestive Heart Failure (CHF), Diabetes Mellitus, Hypertension Additional Family Medical History / Comment(s): Mother passed at 93. Father Family Medical History: Myocardial Infarction ([place]) Additional Family Medical History / Comment(s): Father of a [place] at the age of 39 yrs. Sister(s) Family Medical History: Cancer Brother(s) Family Medical History: Cancer, Myocardial Infarction ([place]) General Exam Limitations: no limitations General appearance: alert, in no apparent distress Head exam: Present: atraumatic, normocephalic Eye exam: Present: normal appearance, EOMI. Absent: PERRL (Right pupil 3 mm reactive, left pupil 4 mm reactive) ENT exam: Present: mucous membranes dry Neck exam: Present: normal inspection. Absent: tenderness, meningismus Respiratory exam: Present: normal lung sounds bilaterally. Absent: respiratory distress, wheezes Cardiovascular Exam: Present: regular rate, normal rhythm GI/Abdominal exam: Present: soft. Absent: distended, tenderness Extremities exam: Present: normal inspection, normal capillary refill. Absent: pedal edema Neurological exam: Present: alert, oriented X3, CN II-XII intact. Absent: motor sensory deficit Psychiatric exam: Present: normal affect, normal mood Skin exam: Present: warm, dry. Absent: cyanosis, diaphoretic Course Vital Signs 02/26/18 14:56 Temperature 98.3 F Pulse Rate 71 Respiratory 18 Rate Blood Pressure 181/94 O2 Sat by Pulse 96 Oximetry EKG Findings - EKG Comments: EKG Findings:: EKG: Normal sinus rhythm, left axis deviation, left bundle branch block, rate of 64, IL interval 208, QRS duration 162, QTC 511, does not meet [place] Criteria. Medical Decision Making - Medical Decision Making 72-year-old female presenting with lightheadedness. History is concerning for near-syncopal arrival. Vertigo symptoms. Did treat patient with meclizine and IV fluids and obtain a computed tomography scan of the brain in the emergency department. CT is negative for intracranial hemorrhage or mass effect. EKG shows left bundle branch block which is new compared to previous EKG in October 2017. Patient has no chest pain currently and has had no chest pain in the past several weeks. No dyspnea. No arm pain or jaw pain. Patient has normal CBC, normal CMP, negative initial troponin. Given the new left bundle branch block, patient will be kept in observation for telemetry, serial cardiac enzymes , and cardiology consultation. - Lab Data Result diagrams: 02/26/18 16:27 02/26/18 16:27 Lab Results 02/26/18 02/26/18 02/26/18 Range/Units 16:27 16:27 16:27 WBC 6.0 (3.8-10.6) k/uL RBC 4.20 (3.80-5.40) m/uL Hgb 13.0 (11.4-16.0) gm/dL Hct 39.9 (34.0-46.0) % MCV 95.1 (80.0-100.0) fL MCH 30.9 (25.0-35.0) pg MCHC 32.5 (31.0-37.0) g/dL RDW 14.0 (11.5-15.5) % Plt Count 325 (150-450) k/uL Neutrophils % 47 % Lymphocytes % 36 % Monocytes % 8 % Eosinophils % 4 % Basophils % 1 % Neutrophils # 2.8 (1.3-7.7) k/uL Lymphocytes # 2.2 (1.0-4.8) k/uL Monocytes # 0.5 (0-1.0) k/uL Eosinophils # 0.2 (0-0.7) k/uL Basophils # 0.1 (0-0.2) k/uL PT (9.0-12.0) sec INR (<1.2) APTT (22.0-30.0) sec Sodium 134 L (137-145) mmol/L Potassium 4.8 (3.5-5.1) mmol/L Chloride 103 (98-107) mmol/L Carbon Dioxide 23 (22-30) mmol/L Anion Gap 8 mmol/L BUN 17 (7-17) mg/dL Creatinine 0.79 (0.52-1.04) mg/dL Est GFR (CKD-EPI)AfAm 87 (>60 ml/min/1.73 sqM) Est GFR (CKD-EPI)NonAf 76 (>60 ml/min/1.73 sqM) Glucose 96 (74-99) mg/dL POC Glucose (mg/dL) (75-99) mg/dL POC Glu Clam Picker ID Calcium 9.4 (8.4-10.2) mg/dL Total Bilirubin 0.6 (0.2-1.3) mg/dL AST 28 (14-36) U/L ALT 32 (9-52) U/L Alkaline Phosphatase 80 (38-126) U/L Total Creatine Kinase 169 H (30-135) U/L CK-MB (CK-2) 1.3 (0.0-2.4) ng/mL CK-MB (CK-2) Rel Index 0.8 Troponin I <0.012 (0.000-0.034) ng/mL Total Protein 7.4 (6.3-8.2) g/dL Albumin 4.3 (3.5-5.0) g/dL Blood Type Blood Type Recheck Antibody Screen Spec Expiration Date 02/26/18 02/26/18 02/26/18 Range/Units 16:27 16:27 16:51 WBC (3.8-10.6) k/uL RBC (3.80-5.40) m/uL Hgb (11.4-16.0) gm/dL Hct (34.0-46.0) % MCV (80.0-100.0) fL MCH (25.0-35.0) pg MCHC (31.0-37.0) g/dL RDW (11.5-15.5) % Plt Count (150-450) k/uL Neutrophils % % Lymphocytes % % Monocytes % % Eosinophils % % Basophils % % Neutrophils # (1.3-7.7) k/uL Lymphocytes # (1.0-4.8) k/uL Monocytes # (0-1.0) k/uL Eosinophils # (0-0.7) k/uL Basophils # (0-0.2) k/uL PT 11.1 (9.0-12.0) sec INR 1.2 H (<1.2) APTT 26.8 (22.0-30.0) sec Sodium (137-145) mmol/L Potassium (3.5-5.1) mmol/L Chloride (98-107) mmol/L Carbon Dioxide (22-30) mmol/L Anion Gap mmol/L BUN (7-17) mg/dL Creatinine (0.52-1.04) mg/dL Est GFR (CKD-EPI)AfAm (>60 ml/min/1.73 sqM) Est GFR (CKD-EPI)NonAf (>60 ml/min/1.73 sqM) Glucose (74-99) mg/dL POC Glucose (mg/dL) 98 (75-99) mg/dL POC Glu Clam Picker ID Elise Good Calcium (8.4-10.2) mg/dL Total Bilirubin (0.2-1.3) mg/dL AST (14-36) U/L ALT (9-52) U/L Alkaline Phosphatase (38-126) U/L Total Creatine Kinase (30-135) U/L CK-MB (CK-2) (0.0-2.4) ng/mL CK-MB (CK-2) Rel Index Troponin I (0.000-0.034) ng/mL Total Protein (6.3-8.2) g/dL Albumin (3.5-5.0) g/dL Blood Type A Positive Blood Type Recheck No Antibody Screen NEGATIVE Spec Expiration Date 03/01/2018 - 2326 Disposition Clinical Impression: Syncope, near, Bundle branch block, left Disposition: ADMITTED IP TO THIS [facility] Condition: Stable Is patient prescribed a controlled substance at d/c from ED?: No Referrals: Johnny Putnam MD [Primary Care Provider] - 1-2 days Decision to Admit Reason: Admit from EC Decision Date: 02/26/18 Decision Time: 19:34
[2018-02-26 17:04] LABS: Glucose,Whole Blood 98 mg/dL (75-99)
[2018-02-26 17:26] LABS: Basophils # (A) 0.1 k/uL (0-0.2); Basophils % (A) 1 %; Eosinophils # (A) 0.2 k/uL (0-0.7); Eosinophils % (A) 4 %; HCT 39.9 % (34.0-46.0); Lymphocytes # (A) 2.2 k/uL (1.0-4.8); Lymphocytes % (A) 36 %; MCH 30.9 pg (25.0-35.0); MCHC 32.5 g/dL (31.0-37.0); MCV 95.1 fL (80.0-100.0); Mean Platelet Volume 6.9; Monocytes # (A) 0.5 k/uL (0-1.0); Monocytes % (A) 8 %; Neutrophils # (A) 2.8 k/uL (1.3-7.7); Neutrophils % (A) 47 %; Platelet Count 325 k/uL (150-450)
[2018-02-26 17:36] LABS: INR 1.2 (<1.2); Partial Thromboplastin Time 26.8 sec (22.0-30.0); Prothrombin Time 11.1 sec (9.0-12.0)
[2018-02-26 17:47] LABS: Albumin 4.3 g/dL (3.5-5.0); Calcium 9.4 mg/dL (8.4-10.2); Potassium 4.8 mmol/L (3.5-5.1); Total Bilirubin 0.6 mg/dL (0.2-1.3); Total Protein 7.4 g/dL (6.3-8.2)
[2018-02-26 18:01] LABS: Creatine Kinase 169 U/L (30-135)
--- NOTE | 2018-02-26 18:11 | XR ---
EXAMINATION TYPE: XR chest 2V DATE OF EXAM: 02/26/2018 COMPARISON: 12/09/2016 HISTORY: Syncope TECHNIQUE: Frontal and lateral views of the chest are obtained. FINDINGS: There is no heart failure nor confluent pneumonic infiltrate. Costophrenic angles are alphonse r. There is a left shoulder prosthesis. Bony thorax is intact. IMPRESSION: No active cardiac pulmonary disease. No change.
[2018-02-26 18:13] LABS: Creatine Kinase MB 1.3 ng/mL (0.0-2.4); Troponin I <0.012 ng/mL (0.000-0.034)
--- NOTE | 2018-02-26 18:26 | CT ---
EXAMINATION TYPE: CT brain wo con DATE OF EXAM: 02/26/2018 COMPARISON: 09/11/2016 HISTORY: dizziness/headaches CT DLP: 1111.4 mGycm Automated exposure control for dose reduction was used. FINDINGS: There is cerebral cortical atrophy. There is no mass effect nor midline shift. There is no sign of in tracranial hemorrhage. There is patchy hypodensity in the periventricular white matter. Calvarium is intact. IMPRESSION: CEREBRAL ATROPHY AND CHRONIC SMALL VESSEL ISCHEMIA. NO ACUTE INTRACRANIAL ABNORMALITY. NO CHANGE.
[2018-02-26] MEDS ORDERED: NALOXONE 0.4 MG/ML 1 ML VIAL IV PRN (19:28)
[2018-02-26] MEDS ORDERED: ASPIRIN 325 MG TAB PO STA (19:33)
[2018-02-26] MEDS: ACETAMINOPHEN TAB 325 MG TAB PO PRN (19:43)
--- NOTE | 2018-02-26 21:10 | P.HPIM ---
History of Present Illness H&P Date: 02/26/18 Chief Complaint: Lightheadedness dizziness The patient is a 72-year-old female with approximately history of essential hypertension, hypothyroidism and GERD who presents to the ER via private vehicle with chief complaint of feeling lightheaded and dizzy and was close to passing out earlier today. The patient's symptoms began when she woke up and attempted to end plate to the bathroom, she complained of lightheadedness and her sensation of room spinning. She denied any syncopal episode, blacking out, chest pain, shortness of breath, palpitations, she denied any URI symptoms such as sore throat or runny nose, denied any focal weakness, slurred speech, blurry vision but did mention a frontal headache that is now dissipated. The patient is followed in clinic by Dr. Patterson who she stated made a home visit this past Saturday and was apparently doing fine at that time. Since then earlier this week the patient has had intermittent episodes of nausea and vomiting earlier today had similar episodes after having turkey diet was delivered to her via [employer]. The patient denied any diarrhea but has reported decreased appetite this week. In the ER she had a comprehensive workup, CT of the head was negative for any acute intracranial pathology did show cerebral atrophy and small vessel ischemia , Labs showed only mild hyponatremia with sodium of 134. EKG showed new left bundle branch block, of note cardiac enzymes are negative. The patient was given IV fluids and meclizine in the ER and recommended for admission for near syncope. 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 History of Any Multi-Drug Resistant Organisms: MRSA Date of last positivie culture/infection: 1997 MDRO Source:: left shoulder Past Surgical History: Bariatric Surgery, Cholecystectomy, Heart Catheterization , Hysterectomy, Joint Replacement, Orthopedic Surgery Additional Past Surgical History / Comment(s): Bilateral knee replacement, left shoulder rotator cuff surgery, gastric bypass, D&C, EGD/colonoscopy, laryngeal tumor removed, Ganglion Cysts both wrists.PAIN CLINIC INJECTIONS Past Anesthesia/Blood Transfusion Reactions: No Reported Reaction Date of Last Stent Placement:: 2012 Past Psychological History: Anxiety, Depression, Panic Disorder Smoking Status: Former smoker Past Alcohol Use History: None Reported Past Drug Use History: None Reported - Past Family History Mother Family Medical History: Cancer, Congestive Heart Failure (CHF), Diabetes Mellitus, Hypertension Additional Family Medical History / Comment(s): Mother passed at 93. Father Family Medical History: Myocardial Infarction ([place]) Additional Family Medical History / Comment(s): Father of a [place] at the age of 39 yrs. Sister(s) Family Medical History: Cancer Brother(s) Family Medical History: Cancer, Myocardial Infarction ([place]) Medications and Allergies Home Medications Medication Instructions Recorded Confirmed Type Metoprolol Succinate (ER) [Toprol 25 mg PO DAILY #30 tab.er.24h 10/11/17 Rx XL] Acetaminophen Tab [Tylenol Tab] 650 mg PO Q4H PRN 02/17/18 02/26/18 History HYDROcodone/APAP 5-325MG [[place] 1 tab PO Q6HR 02/26/18 02/26/18 History 5-325] Levothyroxine Sodium [Synthroid] 100 mcg PO DAILY 02/26/18 02/26/18 History Multivitamins, Thera [Multivitamin 1 tab PO DAILY 02/26/18 02/26/18 History (formulary)] traZODone HCL [TraZODone HCl] 50 mg PO HS 02/26/18 02/26/18 History Allergies Allergy/AdvReac Type Severity Reaction Status Date / Time vancomycin Allergy Rash/Hives Verified 02/26/18 16:33 Physical Exam Vitals: Vital Signs Temp Pulse Resp BP Pulse Ox 02/26/18 19:50 106/64 02/26/18 19:40 57 L 16 109/62 02/26/18 19:20 56 L 130/73 93 L 02/26/18 19:00 57 L 16 158/90 94 L 02/26/18 14:56 98.3 F 71 18 181/94 96 Intake and Output 02/26/18 02/26/18 02/26/18 06:59 14:59 22:59 Other: Weight 84.822 kg Constitutional: No acute distress, conversant, pleasant Eyes: Anicteric sclerae, moist conjunctiva, no lid-lag, PERRLA ENMT: NC/AT,Oropharynx clear, no erythema, exudates Neck:Supple, FROM, no masses, or JVD, No carotid bruits; No thyromegaly Lungs: Clear to auscultation, Clear to percussion, Normal respiratory effort, no accessory muscle use Cardiovascular: Heart regular in rate and rhythm, No murmurs, gallops, or rubs no peripheral edema Abdominal: Soft Nontender, nom distended, no guarding, no rebound or rigidity, Normoactive bowel sounds No hepatomegaly, No splenomegaly, No palpable mass No abdominal wall hernia noted Skin: Normal temperature, tone, texture, turgor, No induration No subcutaneous nodules, No rash, lesions, No ulcers Extremities:No digital cyanosis No clubbing, Pedal pulses intact and symmetrical Radial pulses intact and symmetrical Normal gait and station, No calf tenderness Psychiatric: Alert and oriented to person, place and time, Appropriate affect Intact judgement Neuro: Muscles Strength 5/5 in all 4 extremities, Sensation to light touch grossly present throughout, Cranial nerves II-XII grossly intact. No focal sensory deficits Results CBC & Chem 7: 02/26/18 16:27 02/26/18 16:27 Labs: Abnormal Lab Results - Last 24 Hours (Table) 02/26/18 02/26/18 02/26/18 Range/Units 16:27 16:27 16:27 INR 1.2 H (<1.2) Sodium 134 L (137-145) mmol/L Total Creatine Kinase 169 H (30-135) U/L Assessment and Plan (1) Syncope, near Current Visit: Yes Status: Acute Code(s): R55 - SYNCOPE AND COLLAPSE SNOMED Code(s): 816209055 (2) Bundle branch block, left Current Visit: Yes Status: Acute Code(s): I44.7 - LEFT BUNDLE-BRANCH BLOCK, UNSPECIFIED SNOMED Code(s): 95886527 (3) Peptic ulcer disease Current Visit: No Status: Acute Code(s): K27.9 - PEPTIC ULC, SITE UNSP, UNSP AC OR CHR, W/O HEMOR OR PERF SNOMED Code(s): 75583587 (4) GERD (gastroesophageal reflux disease) Current Visit: Yes Status: Acute Code(s): K21.9 - GASTRO-ESOPHAGEAL REFLUX DISEASE WITHOUT ESOPHAGITIS SNOMED Code(s): 147845766 (5) Hyponatremia Current Visit: No Status: Acute Code(s): E87.1 - HYPO-OSMOLALITY AND HYPONATREMIA SNOMED Code(s): 93296532 (6) Hypothyroidism Current Visit: No Status: Chronic Code(s): E03.9 - HYPOTHYROIDISM, UNSPECIFIED SNOMED Code(s): 66079359 Plan: The patient is placed in observation anticipate a less than 2 midnight stay with near syncope possibly vasovagal due to nausea vomiting versus possible vertigo. Patient denies chest pain but has new left bundle branch block, will observe on telemetry and continue to sequentially trend cardiac enzymes. Plan to consult cardiology for further recommendations,recent echocardiogram 10/10/17 showed ejection fraction of 50-55%, without any indication of any shunting. After that hospitalization the patient was supposedly sent home with a event monitor that showed 1 brief nonsustained run of slow atrial tachycardia. CT of the head is negative for any acute intracranial pathology will consult urology for further recommendations. Patient's blood pressure slightly elevated we'll restart her home regimen, we'll check orthostatic vital signs and continue to follow her clinical course CODE STATUS Full code Discussed plan of care with patient ER physician Anticipated discharge 1-2 days to home
[2018-02-26 21:14] VITALS: BMI 20.7
[2018-02-26] MEDS: traZODone HCL 50 MG TAB PO SCH (22:09)
[2018-02-26] MEDS: SODIUM CHLORIDE 0.9% 1,000 ML IV SCH (22:09)
[2018-02-26] MEDS: HYDROcodone/APAP 5-325MG 1 EACH TAB PO SCH (22:09)
[2018-02-26 23:22] LABS: Creatine Kinase 183 U/L (30-135)
[2018-02-26 23:36] LABS: Creatine Kinase MB 1.3 ng/mL (0.0-2.4); Troponin I <0.012 ng/mL (0.000-0.034)
[2018-02-27] MEDS: ACETAMINOPHEN TAB 325 MG TAB PO PRN ×3 (03:00→13:43)
[2018-02-27] MEDS: HYDROcodone/APAP 5-325MG 1 EACH TAB PO SCH ×4 (05:33→23:21)
[2018-02-27] MEDS: LEVOTHYROXINE 100 MCG TAB PO SCH (05:34)
[2018-02-27 06:03] LABS: Creatine Kinase 124 U/L (30-135)
[2018-02-27 06:15] LABS: Creatine Kinase MB 0.8 ng/mL (0.0-2.4); Troponin I <0.012 ng/mL (0.000-0.034)
[2018-02-27 06:34] LABS: Calcium 8.3 mg/dL (8.4-10.2); Potassium 5.1 mmol/L (3.5-5.1)
[2018-02-27] MEDS: MULTIVITAMINS, THERA 1 EACH TAB PO SCH (08:13)
[2018-02-27] MEDS ORDERED: METOPROLOL SUCCINATE (ER) 25 MG TAB.ER.24H PO SCH (09:00)
--- NOTE | 2018-02-27 10:21 | CONS ---
CONSULTATION Mrs. Eric is a 72-year-old female who presented with symptoms of dizziness. Yesterday she was having nausea and vomiting and went to the bathroom and felt dizzy, but did not have any syncopal episode. Because of that, she came into the emergency room and was subsequently admitted. She is not very active physically but denies any symptoms of chest discomfort. Her breathing is stable. She has some peripheral edema more on the left side. She has no palpitation. No syncope. She was seen in the hospital in October with symptoms of dizziness and at that time, she had an event monitor that revealed no evidence of significant abnormality, except PACs and she had an echocardiogram revealed preserved left ventricular size and systolic function. The patient in the emergency room was noted to have a left bundle branch block which is new since October. She has been followed by Dr. Beasley on a regular basis. Her coronary risk factors are remarkable for history of hypertension. She is nondiabetic, nonsmoker. MEDICATIONS: Include Synthroid, [place], Tylenol, trazodone, Toprol, and multivitamin. REVIEW OF SYSTEMS: Respiratory system: She had some cough. No wheezing. GI system: No recent GI bleeding. She had nausea and vomiting that relates to the flu vaccine. system: No dysuria or hematuria. Nervous system: No history of stroke or seizure. PHYSICAL EXAMINATION: She is a 72-year-old female, alert, oriented, in no apparent distress. Blood pressure 112/60 with a heart rate in the 80s. HEAD: Normocephalic. Eyes: Sclerae nonicteric. Neck: Good upstroke. No bruit. No jugular venous distention. LUNGS: Clear to auscultation. HEART: Regular rate and rhythm S1, S2. No S3. No rub or gallop. ABDOMEN: Soft, nontender. Positive bowel sounds. No organomegaly. EXTREMITIES: No edema. Intact distal pulses. LAB DATA: Lab data revealed troponin less than 0.012 for 3 samples. BUN and creatinine 21 and 0.88. Potassium 5.1. Hemoglobin of 13. EKG reveals sinus mechanism with a left bundle branch block and left axis deviation. In October, she did not have left bundle branch block. Chest x-ray revealed no acute infiltrate. IMPRESSION: 1. Symptoms of dizziness, probably orthostatic hypotension. No evidence of arrhythmia. 2. Left bundle branch block, could be intermittent. No evidence of high-grade AV block at this point. 3. History of hypertension. RECOMMENDATIONS: I will increase her level activity. Continue on the present therapy. If she is stable, I would expect she should be able to be discharged home today and follow up on a regular basis with Dr. Beasley. She may benefit from long-term monitoring to see if there is evidence of intermittent high-grade AV block in view of the left bundle-branch block. Thank you for this consult. We will follow with you. MMODL / IJN: [id number] /
[2018-02-27] MEDS: SODIUM CHLORIDE 0.9% 1,000 ML IV SCH ×2 (11:06→23:20)
[2018-02-27 11:21] LABS: Appearance,Urine Clear (Clear); Bilirubin,Urine Negative (Negative); Blood,Urine Negative (Negative); Color,Urine Yellow; Glucose,Urine (UA) Negative (Negative); Ketones,Urine Negative (Negative); Leukocyte Esterase,Urine Negative (Negative); Nitrite,Urine Negative (Negative); PH, Urine 5.5 (5.0-8.0); Protein,Urine Negative (Negative); Specific Gravity,Urine 1.012 (1.001-1.035); Urobilinogen,Urine <2.0 mg/dL (<2.0)
[2018-02-27] MEDS: ONDANSETRON 4 MG/2 ML VIAL IVP PRN (12:37)
--- NOTE | 2018-02-27 16:41 | P.PN ---
Subjective Progress Note Date: 02/27/18 Principal diagnosis: Dizziness Patient was having a lot of nausea this morning. She did vomit her lunch earlier. She is still feeling slightly dizzy. I noted that she was bradycardic mostly in the 50s. She denies any chest pain otherwise. Patient had a normal bowel movement this morning. Her abdomen is soft and nontender. She denies any abdominal pain. Objective - Vital Signs Vital signs: Vital Signs Temp 98.1 F 02/27/18 16:00 Pulse 52 L 02/27/18 16:00 Resp 18 02/27/18 16:00 BP 136/67 02/27/18 16:00 Pulse Ox 94 L 02/27/18 16:00 Intake & Output 02/26/18 02/27/18 02/27/18 18:59 06:59 18:59 Intake Total 640 Balance 640 Weight 84.822 kg 54.8 kg Intake: Oral 440 Other 200 Other: Voiding Method Toilet Toilet # Voids 1 1 - Exam General: The patient is awake and alert, in no distress Eye: there is normal conjunctiva bilaterally. Neck: The neck is supple, there is no JVD. Cardiovascular: Normal S1-S2, no S3-S4, no murmurs. Respiratory: Lungs clear to auscultation bilaterally Gastrointestinal: Abdomen is soft, nontender Musculoskeletal: There is +1 pedal edema. Neurological:. Speech is normal. Skin: Skin is warm and dry - Labs CBC & Chem 7: 02/26/18 16:27 02/27/18 05:31 Labs: Abnormal Lab Results - Last 24 Hours (Table) 02/26/18 02/26/18 02/26/18 Range/Units 16:27 16:27 16:27 INR 1.2 H (<1.2) Sodium 134 L (137-145) mmol/L BUN (7-17) mg/dL Calcium (8.4-10.2) mg/dL Total Creatine Kinase 169 H (30-135) U/L 02/26/18 02/27/18 Range/Units 22:45 05:31 INR (<1.2) Sodium 133 L (137-145) mmol/L BUN 21 H (7-17) mg/dL Calcium 8.3 L (8.4-10.2) mg/dL Total Creatine Kinase 183 H (30-135) U/L Assessment and Plan Assessment: 1. Worsening dizziness 2. Sinus bradycardia: Symptomatic 3. Left bundle branch block 4. Hypothyroidism maintained on levothyroxin Patient was evaluated in the emergency room a computed tomography scan of the brain showed no acute finding Orthostatic blood pressure checked and negative Continue IV fluid hydration Discontinue metoprolol given bradycardia Echocardiogram in October showed preserved ejection fraction Seen and evaluated by cardiology, appreciate recommendation Check thyroid function tests
[2018-02-27] MEDS: traZODone HCL 50 MG TAB PO SCH (21:01)
[2018-02-28] MEDS: LEVOTHYROXINE 100 MCG TAB PO SCH (06:10)
[2018-02-28] MEDS: HYDROcodone/APAP 5-325MG 1 EACH TAB PO SCH ×4 (06:10→23:27)
[2018-02-28 06:52] LABS: Basophils # (A) 0.1 k/uL (0-0.2); Basophils % (A) 1 %; Eosinophils # (A) 0.4 k/uL (0-0.7); Eosinophils % (A) 8 %; HCT 36.1 % (34.0-46.0); HGB 11.9 gm/dL (11.4-16.0); Lymphocytes % (A) 45 %; MCHC 32.9 g/dL (31.0-37.0); MCV 97.3 fL (80.0-100.0); Mean Platelet Volume 6.9; Monocytes # (A) 0.3 k/uL (0-1.0); Monocytes % (A) 7 %; Neutrophils # (A) 1.6 k/uL (1.3-7.7); Neutrophils % (A) 35 %; Platelet Count 265 k/uL (150-450); RBC 3.71 m/uL (3.80-5.40); WBC 4.5 k/uL (3.8-10.6)
--- NOTE | 2018-02-28 07:52 | CONS ---
CONSULTATION DATE OF CONSULTATION: 02/27/2018. CHIEF COMPLAINT: Dizziness. HISTORY OF PRESENT ILLNESS: The patient is a pleasant 72-year-old male who is being evaluated by the neurology service per the request of Dr. Peck for dizziness. The patient was brought into [facility] emergency room with a feeling of being lightheaded when she woke up yesterday morning. She denies having any lateralizing weakness or numbness. With the lightheadedness, she did have occasional disequilibrium but denies any vertigo. She reports that she had been ill a couple of weeks ago after receiving a flu vaccine. She was nauseous and had occasional vomiting for 3 days but she had been feeling like her usual self for approximately 1 week prior to yesterday. A CT scan of the brain was done, which showed generalized atrophy and small-vessel ischemic changes. Her EKG showed a left bundle branch block. Her CBC, cardiac enzymes and urinalysis were normal. Her comprehensive metabolic profile showed mild hyponatremia at 133 and slightly elevated BUN at 21. Cardiology has been consulted regarding the left bundle branch block. At the time of my evaluation, the patient is lying in her bed and appears to be in no acute distress. She denies any neurological symptoms at this time. PAST MEDICAL HISTORY: Peptic ulcer disease, chronic low back pain, history of laryngeal cancer, history of Guzman's palsy. Cataracts, orthopedic surgeries, hysterectomy, cholecystectomy, bariatric surgery, laryngeal tumor resection, depression, anxiety disorder, panic disorder. SOCIAL HISTORY: The patient is a former smoker. She denies any alcohol or drug use. FAMILY HISTORY: Diabetes, hypertension, heart failure, cancer, myocardial infarction. HOME MEDICATIONS: Reviewed in the chart. ALLERGIES: VANCOMYCIN. REVIEW OF SYSTEMS: As mentioned above and otherwise negative. PHYSICAL EXAM: VITAL SIGNS: Vital signs show a temperature of 97.5, pulse 54, respiration 18, blood pressure 186/91. Orthostatics were checked which showed no sign of any significant orthostatic hypotension. GENERAL APPEARANCE: The patient is a well-developed elderly female, who appears to be in no acute distress. HEENT: Normocephalic, atraumatic, no facial asymmetry is seen. NECK: Supple with no masses felt. CARDIOVASCULAR: Regular rate and rhythm. ABDOMEN: Nontender, nondistended. Extremities showed no edema or clubbing. Neurological exam the patient is alert aware and oriented x3. Speech and language are normal. Strength is full in all 4 extremities. Sensory exam was normal to light touch in all 4 extremities. Finger-nose- finger testing showed no dysmetria. No facial asymmetry is seen on cranial nerve testing. IMPRESSION: 1. Dizziness/lightheadedness. 2. Uncontrolled hypertension. 3. Left bundle branch block. 4. Small vessel ischemic disease. RECOMMENDATIONS: The patient's dizziness is more consistent with a cardiovascular etiology. Her blood pressure has been elevated since her admission. I do recommend further management for this. Her EKG did show a new left bundle branch block and Cardiology has been consulted. From my standpoint, her CT scan of the brain showed small vessel ischemic changes with no acute findings. I will start her on aspirin 81 mg daily and will order a carotid Doppler, fasting lipid panel, and serum homocystine level. If her carotid Doppler shows no hemodynamically significant stenosis. The patient will be cleared for discharge from a neurology standpoint. Cardiology has been consulted. The patient will need further outpatient neurological workup. I will continue to follow with you. Further recommendations to follow. Thank you for allowing me to participate in the care of your patient. If you have any questions, please feel free to contact me. Please send a copy this dictation to Dr. Johnny Putnam and to Dr. Jericho Peck and to my office. MMODL / IJN: [id number] / TEODORO
[2018-02-28] MEDS: MULTIVITAMINS, THERA 1 EACH TAB PO SCH (08:43)
[2018-02-28] MEDS: ASPIRIN 81 MG PO SCH (08:43)
[2018-02-28] MEDS: ONDANSETRON 4 MG/2 ML VIAL IVP PRN ×2 (09:17→19:01)
[2018-02-28 10:03] LABS: Anion Gap 8 mmol/L; Blood Urea Nitrogen 17 mg/dL (7-17); Calcium 8.5 mg/dL (8.4-10.2); Carbon Dioxide 20 mmol/L (22-30); Chloride 106 mmol/L (98-107); Cholesterol 214 mg/dL (<200); Glucose 89 mg/dL (74-99); HDL Cholesterol 43 mg/dL (40-60); LDL Cholesterol,Calculated 130 mg/dL (0-99); Potassium 4.9 mmol/L (3.5-5.1); Sodium 134 mmol/L (137-145); Triglycerides 204 mg/dL (<150)
--- NOTE | 2018-02-28 10:34 | P.PN ---
Subjective Progress Note Date: 02/28/18 This is a pleasant 73-year-old female who presented with symptoms of dizziness and nausea and vomiting. She denies any syncopal episodes. EKG on admission showed left bundle branch block which is new since admission in October of this year at which time there is no evidence of significant abnormality and EKG except for PACs and an echocardiogram revealed preserved LV systolic function. She does have a history of hypertension. Due to bradycardia and question of underlying high-grade AV block her Toprol was discontinued. Upon examination, patient is resting comfortably in bed. Her dizziness has improved. Blood pressure this morning 170 systolic. Objective - Vital Signs Vital signs: Vital Signs Temp 98 F 02/28/18 08:00 Pulse 55 L 02/28/18 08:00 Resp 16 02/28/18 08:00 BP 172/72 02/28/18 08:00 Pulse Ox 99 02/28/18 08:00 Intake & Output 02/27/18 02/28/18 02/28/18 18:59 06:59 18:59 Intake Total 640 1155 Balance 640 1155 Intake: Intake, IV Titration 675 Amount Sodium Chloride 0.9% 1, 675 000 ml @ 75 mls/hr IV . [id number] ALFREDO Rx#:[id number] Oral 440 480 Other 200 Other: Voiding Method Toilet Toilet Toilet # Voids 1 3 - Exam PHYSICAL EXAMINATION: HEENT: Head is atraumatic, normocephalic. Pupils equal, round. Neck is supple. There is no elevated jugular venous pressure. HEART EXAMINATION: Heart sounds regular, S1 and S2 normal. No murmur or gallop heard. CHEST EXAMINATION: Lungs are clear to auscultation and precussion. No chest wall tenderness is noted on palpation or with deep breathing. ABDOMEN: Soft, nontender. Bowel sounds are heard. No organomegaly noted. EXTREMITIES: 2+ peripheral pulses with no evidence of peripheral edema and no calf tenderness noted. NEUROLOGIC patient is awake, alert and oriented x3. . - Labs CBC & Chem 7: 02/28/18 06:12 02/28/18 06:12 Labs: Abnormal Lab Results - Last 24 Hours (Table) 02/28/18 02/28/18 Range/Units 06:12 06:12 RBC 3.71 L (3.80-5.40) m/uL Sodium 134 L (137-145) mmol/L Carbon Dioxide 20 L (22-30) mmol/L Triglycerides 204 H (<150) mg/dL Cholesterol 214 H (<200) mg/dL LDL Cholesterol, Calc 130 H (0-99) mg/dL Assessment and Plan Assessment: 1 symptoms of dizziness, probably orthostatic hypotension, no evidence of arrhythmia #2 left bundle branch block, could be intermittent, no evidence of high-grade AV block at this point #3 hypertension, poorly controlled Plan: From cardiology's perspective, we will add lisinopril for better blood pressure control. She'll follow-up as an outpatient with Dr. Beasley who she sees on a regular basis. She may benefit from long-term monitoring to look for evidence of intermittent high-grade AV block in view of left bundle branch block. 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 Patient was seen and examined.
--- NOTE | 2018-02-28 10:34 | US ---
EXAMINATION TYPE: US carotid duplex BILAT DATE OF EXAM: 02/28/2018 COMPARISON: NONE CLINICAL HISTORY: Dizziness. syncope, high BP EXAM MEASUREMENTS: RIGHT: Peak Systolic Velocity (PSV) cm/sec ----- Right CCA: 88.6 ----- Right ICA: 118.0 ----- Right ECA: 86.0 ICA/CCA ratio: 1.3 RIGHT: End Diastole cm/sec ----- Right CCA: 20.2 ----- Right ICA: 31.3 ----- Right ECA: 0.0 LEFT: Peak Systolic Velocity (PSV) cm/sec ----- Left CCA: 60.4 ----- Left ICA: 107.3 ----- Left ECA: 108.1 ICA/CCA ratio: 1.8 LEFT: End Diastole cm/sec ----- Left CCA: 13.1 ----- Left ICA: 24.5 ----- Left ECA: 1.9 VERTEBRALS (direction of flow): Right Vertebral: antegrade, diminished, pre-steal waveform Left Vertebral: antegrade Moderate to severe atherosclerotic changes, shadowing plaque bilaterally, more so at right bulb exten ding into the right ica prox. There are no elevated velocities, although there is spectral broadenin g bilaterally to waveforms distal to the bulbs. Diminished right vertebral flow with pre-steal waveform. IMPRESSION: Atheromatous plaquing is present bilaterally. Velocity measurements however remain withi n normal range. Consider CTA for additional evaluation for grade of stenosis. High-grade stenosis may cause the depression velocities post stenosis. Criteria for Assigning % of Stenosis / Diameter reduction (Estimation based on the indirect measurements of the internal carotid artery velocities (ICA PSV). 1. Normal (no stenosis)=ICA PSV < 125 cm/s: ratio < 2.0: ICA EDV<40 cm/s. 2. Less than 50% stenosis=ICA PSV < 125 cm/s: ratio < 2.0: ICA EDV<40 cm/s. 3. 50 to 69% stenosis=ICA PSV of 125 to 230 cm/s: ration 2.0 ? 4.0: ICA EDV 40-100 cm/s. 4. Greater than 70% stenosis to near occlusion= ICA PSV > 230 cm/s: ratio > 4.0: ICA EDV > 100 cm/s. 5. Near occlusion= ICA PSV velocities may be low or undetectable: variable ratio and ICA EDV. 6. Total occlusion=unable to detect flow.
[2018-02-28 11:21] LABS: T4, Free (Free Thyroxine) 0.21 ng/dL (0.78-2.19)
[2018-02-28] MEDS ORDERED: LEVOTHYROXINE IVP 100 MCG/5 ML VIAL IV ONE (12:15)
[2018-02-28] MEDS: SODIUM CHLORIDE 0.9% 1,000 ML IV SCH (12:23)
[2018-02-28] MEDS: LISINOPRIL 10 MG TAB PO SCH (12:23)
--- NOTE | 2018-02-28 12:25 | P.PN ---
Subjective Progress Note Date: 02/28/18 Principal diagnosis: Dizziness Patient is still feeling dizzy today. Blood pressure not well controlled. She denies anymore nausea or vomiting. Her heart rate is still in the 50s despite stopping the metoprolol. I noted that her thyroid function test was significantly abnormal with significantly elevated TSH and depressed T4. Objective - Vital Signs Vital signs: Vital Signs Temp 98 F 02/28/18 08:00 Pulse 55 L 02/28/18 08:00 Resp 16 02/28/18 08:00 BP 172/72 02/28/18 08:00 Pulse Ox 99 02/28/18 08:00 Intake & Output 02/27/18 02/28/18 02/28/18 18:59 06:59 18:59 Intake Total 640 1155 Balance 640 1155 Intake: Intake, IV Titration 675 Amount Sodium Chloride 0.9% 1, 675 000 ml @ 75 mls/hr IV . [id number] ALFREDO Rx#:[id number] Oral 440 480 Other 200 Other: Voiding Method Toilet Toilet Toilet # Voids 1 3 - Exam General: The patient is awake and alert, in no distress Eye: there is normal conjunctiva bilaterally. Neck: The neck is supple, there is no JVD. Cardiovascular: Normal S1-S2, no S3-S4, no murmurs. Respiratory: Lungs clear to auscultation bilaterally Gastrointestinal: Abdomen is soft, nontender Musculoskeletal: There is +1 pedal edema. Neurological:. Speech is normal. Skin: Skin is warm and dry - Labs CBC & Chem 7: 02/28/18 06:12 02/28/18 06:12 Labs: Abnormal Lab Results - Last 24 Hours (Table) 02/28/18 02/28/18 Range/Units 06:12 06:12 RBC 3.71 L (3.80-5.40) m/uL Sodium 134 L (137-145) mmol/L Carbon Dioxide 20 L (22-30) mmol/L Triglycerides 204 H (<150) mg/dL Cholesterol 214 H (<200) mg/dL LDL Cholesterol, Calc 130 H (0-99) mg/dL TSH >100.000 H (0.465-4.680) mIU/L Free T4 0.21 L (0.78-2.19) ng/dL Assessment and Plan Assessment: 1. Worsening dizziness: Orthostatic blood pressure checked and negative. computed tomography scan of the brain showed no acute finding 2. Sinus bradycardia: Symptomatic. I discontinued her metoprolol 3. Left bundle branch block: Seen and evaluated by cardiology. No further testing recommended at this time. Echocardiogram in October showed preserved ejection fraction 4. Hypothyroidism maintained on levothyroxin 100 g daily. TSH significantly elevated with depressed free T4. I would increase the dose to 150 g daily. I would give one-time dose of 50 g IV today 5. Bilateral carotid stenosis: Unable to define if hemodynamically significant on ultrasound. I would obtain MRA of the head and neck for further evaluation. 6. Essential hypertension, blood pressure not well controlled. Started on lisinopril 10 mg daily.
[2018-02-28] MEDS: ACETAMINOPHEN TAB 325 MG TAB PO PRN (16:39)
--- NOTE | 2018-02-28 16:44 | P.PN ---
Subjective Progress Note Date: 02/28/18 Principal diagnosis: Dizziness Neurology is following 72-year-old female with dizziness. Patient was brought to the emergency room feeling lightheaded upon waking. Patient denied any lateralizing weakness. Patient did have occasional disequilibrium but no vertigo. Patient did have reported illness after receiving a flu vaccine several weeks ago. Patient had nausea and occasional vomiting for approximately [address] scan of the brain showed generalized atrophy and chronic small vessel ischemic changes. EKG showed left bundle branch block. CMP showed mild hyponatremia and slight elevated BUN. Cardiology is already on consult for left bundle branch block. On contact, and is alert and oriented 3. No acute distress. Objective - Vital Signs Vital signs: Vital Signs Temp 98.2 F 02/28/18 12:00 Pulse 60 02/28/18 12:00 Resp 16 02/28/18 12:00 BP 141/86 02/28/18 12:00 Pulse Ox 97 02/28/18 12:00 Intake & Output 02/27/18 02/28/18 02/28/18 18:59 06:59 18:59 Intake Total 640 1155 720 Balance 640 1155 720 Weight 93.1 kg Intake: Intake, IV Titration 675 Amount Sodium Chloride 0.9% 1, 675 000 ml @ 75 mls/hr IV . [id number] ALFREDO Rx#:[id number] Oral 440 480 720 Other 200 Other: Voiding Method Toilet Toilet Toilet # Voids 1 3 3 - Exam General appearance: Alert & oriented x3, no apparent distress. Head: Atraumatic, normocephalic, normal inspection Eyes: PERRLA, EOMI. Absent scleral icterus, conjunctival injection, nystagmus, periorbital swelling. Ear, nose and throat: Normal exam, mucous membranes moist Neck: Normal inspection, absent tenderness, lymphadenopathy. Respiratory: No increased work of breathing Cardiovascular: Regular rate, rhythm GI/abdominal: No guarding, no rigidity Extremities: moves all extremities Neurological: cranial nerves II through XII intact no lateralizing weakness no seizure activity noted on physical exam no pronator drift and no nystagmus. Strength: full in all 4 extremities Sensation: Left lower extremity: normal Right lower extremity: normal Left upper extremity: normal Right upper extremity:normal Psychological: Mood and Affect appropriate for setting - Labs CBC & Chem 7: 02/28/18 06:12 02/28/18 06:12 Labs: Abnormal Lab Results - Last 24 Hours (Table) 02/28/18 02/28/18 Range/Units 06:12 06:12 RBC 3.71 L (3.80-5.40) m/uL Sodium 134 L (137-145) mmol/L Carbon Dioxide 20 L (22-30) mmol/L Triglycerides 204 H (<150) mg/dL Cholesterol 214 H (<200) mg/dL LDL Cholesterol, Calc 130 H (0-99) mg/dL TSH >100.000 H (0.465-4.680) mIU/L Free T4 0.21 L (0.78-2.19) ng/dL Assessment and Plan (1) Altered mental status Current Visit: Yes Status: Acute Code(s): R41.82 - ALTERED MENTAL STATUS, UNSPECIFIED SNOMED Code(s): 309388260 (2) Dizziness Current Visit: Yes Status: Acute Code(s): R42 - DIZZINESS AND GIDDINESS SNOMED Code(s): 549066459 (3) Hypertension Current Visit: Yes Status: Acute Code(s): I10 - ESSENTIAL (PRIMARY) HYPERTENSION SNOMED Code(s): 18787271 (4) Bundle branch block, left Current Visit: Yes Status: Acute Code(s): I44.7 - LEFT BUNDLE-BRANCH BLOCK, UNSPECIFIED SNOMED Code(s): 84668385 Plan: previously noted, patient's dizziness is more consistent with cardiovascular etiology. Cardiology is on consult and is currently managing patient as well. EEG noted left bundle branch block. CT of the brain noted chronic small vessel ischemic changes and no acute process. 81 mg aspirin has been started. Carotid Doppler was conducted. Carotid Doppler noted atheromatous plaque is present bilaterally. Velocity measurements however remain within normal range. Consider CT angiogram for additional evaluation for grade of stenosis. High-grade stenosis may cause the depression velocities post stenosis. As a result, CT angiogram of the neck will be ordered at this time for further evaluation. Based on the patient's lipid panel, Lipitor 20 mg will be started to address the patient's elevated results. Serum homocysteine level was normal. Additionally, recommend endocrinology consult due to extremely elevated TSH and low T4 as noted on laboratory blood work. Neurology will continue to follow and provide updates as needed or warranted. I have discussed the plan of care with the physician prior to implementation and he agrees with the plan as implemented.
--- NOTE | 2018-02-28 19:40 | CT ---
EXAMINATION TYPE: CT angio neck DATE OF EXAM: 02/28/2018 HISTORY: Altered mental status COMPARISON: Carotid ultrasound earlier today CT DLP: 393.2 mGycm. Automated Exposure Control for Dose Reduction was Utilized. TECHNIQUE: CTA scan of the neck is performed with IV Contrast, patient injected with 65ml mL of Isov ue 370, axial images are obtained, coronal and sagittal reformatted images are reviewed. Three-D fly nstructed images are created on an independent workstation and reviewed. FINDINGS: Carotid/Vascular Structures: There is mild to moderate mixed plaque in the aortic arch extending into the great vessels. Visualized portion of the subclavian arteries show no significant stenosis. Right common carotid artery shows normal origin from right brachiocephalic artery. There is tortuous cours e to the right common carotid artery including mild/moderate calcified plaque mid to distal segment. Moderate to severe calcified plaque extends into the proximal internal carotid artery. Stenosis great er than 50% is felt present near raw data image 37 as there is prominent calcified plaque along the r ight and left aspects. I cannot give more accurate information as remote external workstation is not working and 1 mm thin cuts are not provided or sent to PACS for interpretation. Presence of calcified plaque also makes accurate assessment of stenosis suboptimal. There is patent right external artery without significant plaque or stenosis. Remainder right internal carotid artery shows no significant plaque or stenosis. There is mild plaque in the mid to distal left common carotid artery. There is hdod-pm-rldeyvlo calci fied plaque left carotid bulb extending into proximal internal carotid artery without significant branden nosis. Remainder of right internal carotid artery shows slight tortuous course without significant pl aque or stenosis. There is patent left external carotid artery without significant plaque or stenosis . There is a codominant vertebrobasilar system. Vertebral arteries are patent to basilar junction. Other: Nasal septum is deviated to right of midline. Scleral calcification right globe is seen. Mild emphysematous changes lung apices is present. IMPRESSION: Right greater than left atherosclerotic change with focal significant stenosis greater th an 50% proximal right internal carotid artery felt present.
[2018-02-28] MEDS ORDERED: ATORVASTATIN 20 MG TAB PO SCH (21:00)
[2018-02-28] MEDS: traZODone HCL 50 MG TAB PO SCH (21:20)
[2018-03-01 01:35] VITALS: RESP 17
[2018-03-01] MEDS: ACETAMINOPHEN TAB 325 MG TAB PO PRN (02:34)
[2018-03-01] MEDS ORDERED: KETOROLAC 30 MG/ML 1 ML VIAL IVP STA (04:18)
[2018-03-01] MEDS ORDERED: LEVOTHYROXINE 100 MCG TAB PO SCH (06:30)
[2018-03-01] MEDS ORDERED: LEVOTHYROXINE 75 MCG TAB PO SCH (06:30)
[2018-03-01] MEDS: HYDROcodone/APAP 5-325MG 1 EACH TAB PO SCH ×2 (06:55→12:11)
[2018-03-01 07:26] LABS: Basophils # (A) 0.1 k/uL (0-0.2); Basophils % (A) 1 %; Eosinophils # (A) 0.3 k/uL (0-0.7); Eosinophils % (A) 6 %; HCT 37.1 % (34.0-46.0); HGB 12.1 gm/dL (11.4-16.0); Lymphocytes # (A) 1.9 k/uL (1.0-4.8); Lymphocytes % (A) 38 %; MCH 31.2 pg (25.0-35.0); MCHC 32.6 g/dL (31.0-37.0); MCV 95.7 fL (80.0-100.0); Mean Platelet Volume 6.8; Monocytes # (A) 0.4 k/uL (0-1.0); Monocytes % (A) 8 %; Neutrophils # (A) 2.2 k/uL (1.3-7.7); Neutrophils % (A) 44 %; Platelet Count 280 k/uL (150-450); RBC 3.87 m/uL (3.80-5.40); RDW 14.1 % (11.5-15.5)
[2018-03-01 07:27] LABS: Calcium 8.8 mg/dL (8.4-10.2); Potassium 4.2 mmol/L (3.5-5.1)
[2018-03-01] MEDS: LISINOPRIL 10 MG TAB PO SCH (08:10)
[2018-03-01] MEDS: ASPIRIN 81 MG PO SCH (08:10)
[2018-03-01] MEDS: MULTIVITAMINS, THERA 1 EACH TAB PO SCH (08:10)
[2018-03-01 08:16] VITALS: BP 177/84; PULSE 64; TEMP 97.5
--- NOTE | 2018-03-01 11:12 | P.DS ---
Providers Date of admission: 03/01/18 03:29 Expected date of discharge: 03/01/18 Attending physician: Jericho Peck MD Consults: 02/26/18 19:28 Consult Physician Routine Consulting Provider: Durga Rojas Consult Reason/Comments: Near-syncope, left bundle branch block Do you want consulting provider notified?: Yes 02/27/18 07:36 Consult Physician Routine Consulting Provider: Chon Jenkins Consult Reason/Comments: syncope Do you want consulting provider notified?: Yes Primary care physician: Johnny Putnam MD Hospital Course: This is a 72-year-old female who presented to the hospital originally with worsening dizziness. She was admitted and was treated for the below mentioned medical problems. 1. Worsening dizziness: Orthostatic blood pressure checked and negative. computed tomography scan of the brain showed no acute finding. Patient was seen by both cardiology and neurology. 2. Sinus bradycardia: Metoprolol was discontinued during this admission. Heart rate improved to the 60s. 3. Left bundle branch block: Seen and evaluated by cardiology. No further testing recommended at this time. Echocardiogram in October showed preserved ejection fraction 4. Hypothyroidism maintained on levothyroxin 200 g daily. TSH significantly elevated with depressed free T4. Patient was advised to follow-up with endocrinology as an outpatient. No endocrinology consult available in this hospital. 5. Bilateral carotid stenosis: CT angiogram showed right greater than left atherosclerotic changes with focal segmental stenosis greater than 50% in the proximal right internal carotid artery. Risk factor modification. Patient started on aspirin and Lipitor. 6. Essential hypertension, blood pressure not well controlled. Started on lisinopril 10 mg daily and Norvasc 2.5 mg daily Patient will be discharged home in a stable condition. She needs to follow-up with her primary care physician within the next 3-5 days. Continue to monitor blood pressure at home. Follow-up carotid ultrasound within the next 6 months. May consider vascular surgery referral as an outpatient. Patient was counseled to ask her PCP to refer her to an documentation specialist for further evaluation of her underlying hypothyroidism. Patient Condition at Discharge: Fair Plan - Discharge Summary New Discharge Prescriptions: New Acetaminophen Tab [Tylenol] 650 mg PO Q6HR PRN tab PRN Reason: Mild Pain Or Fever > 100.5 amLODIPine BESYLATE [Norvasc] 2.5 mg PO DAILY #30 tab Aspirin 81 mg PO DAILY #30 chew Atorvastatin [Lipitor] 20 mg PO HS #30 tab Lisinopril [Zestril] 10 mg PO DAILY #30 tab Continue traZODone HCL 50 mg PO HS Levothyroxine Sodium [Synthroid] 200 mcg PO DAILY HYDROcodone/APAP 5-325MG [[place] 5-325] 1 tab PO Q6HR Multivitamins, Thera [Multivitamin (formulary)] 1 tab PO DAILY Discontinued Metoprolol Succinate (ER) [Toprol XL] 25 mg PO DAILY #30 tab.er.24h Acetaminophen Tab [Tylenol Tab] 650 mg PO Q4H PRN PRN Reason: Pain Discharge Medication List HYDROcodone/APAP 5-325MG [[place] 5-325] 1 tab PO Q6HR 02/26/18 [History] Levothyroxine Sodium [Synthroid] 200 mcg PO DAILY 02/26/18 [History] Multivitamins, Thera [Multivitamin (formulary)] 1 tab PO DAILY 02/26/18 [History ] traZODone HCL 50 mg PO HS 02/26/18 [History] Acetaminophen Tab [Tylenol] 650 mg PO Q6HR PRN tab 03/01/18 [Rx] Aspirin 81 mg PO DAILY #30 chew 03/01/18 [Rx] Atorvastatin [Lipitor] 20 mg PO HS #30 tab 03/01/18 [Rx] Lisinopril [Zestril] 10 mg PO DAILY #30 tab 03/01/18 [Rx] amLODIPine BESYLATE [Norvasc] 2.5 mg PO DAILY #30 tab 03/01/18 [Rx] Follow up Appointment(s)/Referral(s): Chon Jenkins MD [STAFF PHYSICIAN] - 2 Weeks Riley Beasley MD [STAFF PHYSICIAN] - 1 Week Johnny Putnam MD [Primary Care Provider] - 3 Days (Office is closed. Please call to schedule appointment) Discharge Disposition: HOME SELF-CARE
[2018-03-01] MEDS ORDERED: amLODIPine 5 MG TAB PO SCH (12:00)
--- NOTE | 2018-03-01 13:00 | P.PN ---
Subjective Progress Note Date: 03/01/18 This is a pleasant 73-year-old female who presented with symptoms of dizziness and nausea and vomiting. She denies any syncopal episodes. EKG on admission showed left bundle branch block which is new since admission in October of this year at which time there is no evidence of significant abnormality and EKG except for PACs and an echocardiogram revealed preserved LV systolic function. She does have a history of hypertension. Due to bradycardia and question of underlying high-grade AV block her Toprol was discontinued. Upon examination, patient is resting comfortably in bed. Her dizziness has improved. Blood pressure this morning 177 systolic. We will add Norvasc 5 mg daily to her medication regime. Objective - Vital Signs Vital signs: Vital Signs Temp 97.5 F L 03/01/18 08:12 Pulse 64 03/01/18 08:12 Resp 17 03/01/18 08:12 BP 177/84 03/01/18 08:12 Pulse Ox 99 03/01/18 08:12 Intake & Output 02/28/18 03/01/18 03/01/18 18:59 06:59 18:59 Intake Total 720 1560 236 Balance 720 1560 236 Weight 93.1 kg 92.5 kg Intake: Intake, IV Titration 600 Amount Sodium Chloride 0.9% 1, 600 000 ml @ 75 mls/hr IV . [id number] [facility] Rx#:[id number] Oral 720 960 236 Other: Voiding Method Toilet Toilet Toilet # Voids 3 4 2 - Exam PHYSICAL EXAMINATION: HEENT: Head is atraumatic, normocephalic. Pupils equal, round. Neck is supple. There is no elevated jugular venous pressure. HEART EXAMINATION: Heart sounds regular, S1 and S2 normal. No murmur or gallop heard. CHEST EXAMINATION: Lungs are clear to auscultation and precussion. No chest wall tenderness is noted on palpation or with deep breathing. ABDOMEN: Soft, nontender. Bowel sounds are heard. No organomegaly noted. EXTREMITIES: 2+ peripheral pulses with no evidence of peripheral edema and no calf tenderness noted. NEUROLOGIC patient is awake, alert and oriented x3. . - Labs CBC & Chem 7: 03/01/18 06:09 03/01/18 06:09 Labs: Abnormal Lab Results - Last 24 Hours (Table) 03/01/18 Range/Units 06:09 Sodium 132 L (137-145) mmol/L Assessment and Plan Plan: Assessment: 1 symptoms of dizziness, probably orthostatic hypotension, no evidence of arrhythmia #2 left bundle branch block, could be intermittent, no evidence of high-grade AV block at this point #3 hypertension, poorly controlled Plan We'll start the patient on 5 mg of Norvasc today and daily. From our perspective she may be able to be discharged home. She has a follow-up appointment made with Dr. Beasley in the office. She may also benefit from long- term monitoring to look for any evidence of intermittent high degree AV block in view of her left bundle-branch block pattern. DNP note has been reviewed, I agree with a documented findings and plan of care. Patient was seen and examined.
--- NOTE | 2018-03-01 16:13 | P.PN ---
Subjective Principal diagnosis: Dizziness Neurology is following 72-year-old female with dizziness. Patient was brought to the emergency room feeling lightheaded upon waking. Patient denied any lateralizing weakness. Patient did have occasional disequilibrium but no vertigo. Patient did have reported illness after receiving a flu vaccine several weeks ago. Patient had nausea and occasional vomiting for approximately [address] scan of the brain showed generalized atrophy and chronic small vessel ischemic changes. EKG showed left bundle branch block. CMP showed mild hyponatremia and slight elevated BUN. Cardiology is already on consult for left bundle branch block. CT angiogram showed greater than 50% stenosis but no hemodynamically significant stenosis. On contact, and is alert and oriented 3. No acute distress. Objective - Vital Signs Vital signs: Vital Signs Temp 97.5 F L 03/01/18 08:12 Pulse 64 03/01/18 08:12 Resp 17 03/01/18 08:12 BP 177/84 03/01/18 08:12 Pulse Ox 99 03/01/18 08:12 Intake & Output 02/28/18 03/01/18 03/01/18 18:59 06:59 18:59 Intake Total 720 1560 476 Balance 720 1560 476 Weight 93.1 kg 92.5 kg Intake: Intake, IV Titration 600 Amount Sodium Chloride 0.9% 1, 600 000 ml @ 75 mls/hr IV . [id number] [facility] Rx#:[id number] Oral 720 960 476 Other: Voiding Method Toilet Toilet Toilet # Voids 3 4 2 - Exam General appearance: Alert & oriented x3, no apparent distress. Head: Atraumatic, normocephalic, normal inspection Eyes: PERRLA, EOMI. Absent scleral icterus, conjunctival injection, nystagmus, periorbital swelling. Ear, nose and throat: Normal exam, mucous membranes moist Neck: Normal inspection, absent tenderness, lymphadenopathy. Respiratory: No increased work of breathing Cardiovascular: Regular rate, rhythm GI/abdominal: No guarding, no rigidity Extremities: moves all extremities Neurological: cranial nerves II through XII intact no lateralizing weakness no seizure activity noted on physical exam no pronator drift and no nystagmus. Strength: full in all 4 extremities Sensation: Left lower extremity: normal Right lower extremity: normal Left upper extremity: normal Right upper extremity:normal Psychological: Mood and Affect appropriate for setting - Labs CBC & Chem 7: 03/01/18 06:09 03/01/18 06:09 Labs: Abnormal Lab Results - Last 24 Hours (Table) 03/01/18 Range/Units 06:09 Sodium 132 L (137-145) mmol/L Assessment and Plan (1) Altered mental status Current Visit: Yes Status: Acute Code(s): R41.82 - ALTERED MENTAL STATUS, UNSPECIFIED SNOMED Code(s): 596717904 (2) Dizziness Current Visit: Yes Status: Acute Code(s): R42 - DIZZINESS AND GIDDINESS SNOMED Code(s): 381149015 (3) Hypertension Current Visit: Yes Status: Acute Code(s): I10 - ESSENTIAL (PRIMARY) HYPERTENSION SNOMED Code(s): 66381821 (4) Bundle branch block, left Current Visit: Yes Status: Acute Code(s): I44.7 - LEFT BUNDLE-BRANCH BLOCK, UNSPECIFIED SNOMED Code(s): 85464556 Plan: previously noted, patient's dizziness is more consistent with cardiovascular etiology. Cardiology is on consult and is currently managing patient as well. EEG noted left bundle branch block. CT of the brain noted chronic small vessel ischemic changes and no acute process. 81 mg aspirin has been started. Carotid Doppler was conducted. Carotid Doppler noted atheromatous plaque is present bilaterally. Velocity measurements however remain within normal range. Consider CT angiogram for additional evaluation for grade of stenosis. High-grade stenosis may cause the depression velocities post stenosis. CT angiogram of the neck greater than 50% stenosis right internal carotid artery however noted no no hemodynamically significant stenosis. Based on the patient's lipid panel, Lipitor 20 mg will be continued. Serum homocysteine level was normal. Additionally, recommend endocrinology consult due to extremely elevated TSH and low T4 as noted on laboratory blood work. Neurology will there is a patient for discharge from a neurological standpoint. Patient follow-up in the office within 14 days of discharge. I have discussed the plan of care with the physician prior to implementation and he agrees with the plan as implemented.
== END 2018-03-01 14:45 | disposition home or self-care (01) | DRG 149 ==
LOC: EC 14:51 → 1SOBS 19:28 → 3SCARD 02-27 17:09 → OBSVTOIN 03-01 03:29
PROVIDERS: ADMIT Family Medicine; ATTEND Family Medicine
DX: R42 Dizziness and giddiness (principal); E87.1 Hypo-osmolality and hyponatremia; E03.9 Hypothyroidism, unspecified; F32.9 Major depressive disorder, single episode, unspecified; F41.0 Panic disorder [episodic paroxysmal anxiety]; I10 Essential (primary) hypertension; I25.10 Atherosclerotic heart disease of native coronary artery without angina pectoris; I44.7 Left bundle-branch block, unspecified; I48.91 Unspecified atrial fibrillation; I65.23 Occlusion and stenosis of bilateral carotid arteries; K21.9 Gastro-esophageal reflux disease without esophagitis; G89.29 Other chronic pain; H26.9 Unspecified cataract; M19.90 Unspecified osteoarthritis, unspecified site; M54.5 Low back pain; Z85.21 Personal history of malignant neoplasm of larynx; Z87.11 Personal history of peptic ulcer disease; Z87.891 Personal history of nicotine dependence; Z98.84 Bariatric surgery status; Z96.653 Presence of artificial knee joint, bilateral; Z90.710 Acquired absence of both cervix and uterus; Z90.49 Acquired absence of other specified parts of digestive tract; Z79.890 Hormone replacement therapy; Z79.899 Other long term (current) drug therapy; Z88.1 Allergy status to other antibiotic agents; Z86.14 Personal history of Methicillin resistant Staphylococcus aureus infection; Z82.49 Family history of ischemic heart disease and other diseases of the circulatory system; Z83.3 Family history of diabetes mellitus; Z80.9 Family history of malignant neoplasm, unspecified
CPT/HCPCS: 36415; 70450; 70498; 71046; 80048; 80053; 80061; 81003; 82550; 82553; 83090; 84439; 84443; 84484; 85025; 85610; 85730; 86850; 86900; 86901; 93005; 93880; 96360; 99285

== ENCOUNTER 2018-03-07 06:58 | Observation (INO) | payer MEDICARE ==
[2018-03-07] MEDS ORDERED: NITROGLYCERIN SL TABS 0.4 MG TAB SUBLINGUAL STA ×3 (07:15)
[2018-03-07] MEDS ORDERED: ASPIRIN 81 MG PO STA (07:15)
--- NOTE | 2018-03-07 07:17 | ED ---
General Adult HPI - General Chief complaint: Chest Pain Stated complaint: chest pain Time Seen by Provider: 03/07/18 07:11 Source: patient, RN notes reviewed Mode of arrival: wheelchair Limitations: no limitations - History of Present Illness Initial comments: Patient is a pleasant 72-year-old female presenting to the emergency Department with complaints of chest discomfort. Onset of symptoms was around an hour and a half ago. Discomfort is currently 6/10. Discomfort feels like pressure radiation. There is some associated dyspnea and nausea. No diaphoresis. No history of similar symptoms previously. - Related Data Home Medications Medication Instructions Recorded Confirmed HYDROcodone/APAP 5-325MG [[place] 1 tab PO Q6HR 02/26/18 03/07/18 5-325] Levothyroxine Sodium [Synthroid] 200 mcg PO DAILY 02/26/18 03/07/18 Multivitamins, Thera [Multivitamin 1 tab PO DAILY 02/26/18 03/07/18 (formulary)] traZODone HCL 50 mg PO HS 02/26/18 03/07/18 Previous Rx's Medication Instructions Recorded Acetaminophen Tab [Tylenol] 650 mg PO Q6HR PRN tab 03/01/18 Aspirin 81 mg PO DAILY #30 chew 03/01/18 Atorvastatin [Lipitor] 20 mg PO HS #30 tab 03/01/18 Lisinopril [Zestril] 10 mg PO DAILY #30 tab 03/01/18 amLODIPine BESYLATE [Norvasc] 2.5 mg PO DAILY #30 tab 03/01/18 Allergies Allergy/AdvReac Type Severity Reaction Status Date / Time vancomycin Allergy Rash/Hives Verified 03/07/18 07:04 Review of Systems ROS Statement: Those systems with pertinent positive or pertinent negative responses have been documented in the HPI. ROS Other: All systems not noted in ROS Statement are negative. Constitutional: Denies: fever Eyes: Denies: eye pain ENT: Denies: ear pain Respiratory: Denies: cough Cardiovascular: Reports: chest pain Endocrine: Denies: fatigue Gastrointestinal: Reports: nausea, vomiting. 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 History of Any Multi-Drug Resistant Organisms: MRSA Date of last positivie culture/infection: 1997 MDRO Source:: left shoulder Past Surgical History: Bariatric Surgery, Cholecystectomy, Heart Catheterization , Hysterectomy, Joint Replacement, Orthopedic Surgery Additional Past Surgical History / Comment(s): Bilateral knee replacement, left shoulder rotator cuff surgery, gastric bypass, D&C, EGD/colonoscopy, laryngeal tumor removed, Ganglion Cysts both wrists.PAIN CLINIC INJECTIONS Past Anesthesia/Blood Transfusion Reactions: No Reported Reaction Date of Last Stent Placement:: 2012 Past Psychological History: Anxiety, Depression, Panic Disorder Smoking Status: Former smoker Past Alcohol Use History: None Reported Past Drug Use History: None Reported - Past Family History Mother Family Medical History: Cancer, Congestive Heart Failure (CHF), Diabetes Mellitus, Hypertension Additional Family Medical History / Comment(s): Mother passed at 93. Father Family Medical History: Myocardial Infarction ([place]) Additional Family Medical History / Comment(s): Father of a [place] at the age of 39 yrs. Sister(s) Family Medical History: Cancer Brother(s) Family Medical History: Cancer, Myocardial Infarction ([place]) General Exam Limitations: no limitations General appearance: alert, in no apparent distress Head exam: Present: atraumatic Eye exam: Present: normal appearance, PERRL ENT exam: Present: normal oropharynx Neck exam: Present: normal inspection Respiratory exam: Present: normal lung sounds bilaterally. Absent: chest wall tenderness Cardiovascular Exam: Present: regular rate, normal rhythm Expanded Peripheral pulses: 2+: Radial (R), Radial (L), Dorsalis Pedis (R), Dorsalis Pedis (L) GI/Abdominal exam: Present: soft. Absent: tenderness Extremities exam: Present: normal inspection. Absent: pedal edema, calf tenderness Neurological exam: Present: alert Psychiatric exam: Present: normal affect, normal mood Skin exam: Present: normal color Course Vital Signs 03/07/18 03/07/18 03/07/18 07:01 07:47 08:01 Temperature 97.9 F Pulse Rate 77 78 73 Respiratory 22 16 16 Rate Blood Pressure 186/98 104/78 98/70 O2 Sat by Pulse 99 99 97 Oximetry EKG Findings - EKG Comments: EKG Findings:: Sinus rhythm at 67. For screening AV block with ND of 252. QRS 164. QT 48. QTC 515. Left axis. Left bundle branch block. No acute ST change. Medical Decision Making - Medical Decision Making Patient reevaluated and states she feels much better following nitroglycerin. Patient and family updated on results and plan. Case was discussed in detail with Dr. Ybarra, who will admit for Dr. putnam - Lab Data Result diagrams: 03/07/18 07:29 03/07/18 07:29 Lab Results 03/07/18 03/07/18 03/07/18 Range/Units 07:29 07:29 07:29 WBC 5.8 (3.8-10.6) k/uL RBC 4.11 (3.80-5.40) m/uL Hgb 13.1 (11.4-16.0) gm/dL Hct 37.9 (34.0-46.0) % MCV 92.3 (80.0-100.0) fL MCH 32.0 (25.0-35.0) pg MCHC 34.6 (31.0-37.0) g/dL RDW 13.8 (11.5-15.5) % Plt Count 283 (150-450) k/uL Neutrophils % 40 % Lymphocytes % 43 % Monocytes % 9 % Eosinophils % 4 % Basophils % 1 % Neutrophils # 2.3 (1.3-7.7) k/uL Lymphocytes # 2.5 (1.0-4.8) k/uL Monocytes # 0.5 (0-1.0) k/uL Eosinophils # 0.3 (0-0.7) k/uL Basophils # 0.1 (0-0.2) k/uL PT (9.0-12.0) sec INR (<1.2) APTT (22.0-30.0) sec Sodium 134 L (137-145) mmol/L Potassium 4.4 (3.5-5.1) mmol/L Chloride 101 (98-107) mmol/L Carbon Dioxide 22 (22-30) mmol/L Anion Gap 11 mmol/L BUN 14 (7-17) mg/dL Creatinine 0.68 (0.52-1.04) mg/dL Est GFR (CKD-EPI)AfAm >90 (>60 ml/min/1.73 sqM) Est GFR (CKD-EPI)NonAf 88 (>60 ml/min/1.73 sqM) Glucose 89 (74-99) mg/dL Calcium 9.3 (8.4-10.2) mg/dL Magnesium 2.1 (1.6-2.3) mg/dL Total Bilirubin 0.7 (0.2-1.3) mg/dL AST 35 (14-36) U/L ALT 23 (9-52) U/L Alkaline Phosphatase 70 (38-126) U/L Total Creatine Kinase 313 H (30-135) U/L CK-MB (CK-2) 2.2 (0.0-2.4) ng/mL CK-MB (CK-2) Rel Index 0.7 Troponin I <0.012 (0.000-0.034) ng/mL Total Protein 7.2 (6.3-8.2) g/dL Albumin 4.2 (3.5-5.0) g/dL 03/07/18 Range/Units 07:29 WBC (3.8-10.6) k/uL RBC (3.80-5.40) m/uL Hgb (11.4-16.0) gm/dL Hct (34.0-46.0) % MCV (80.0-100.0) fL MCH (25.0-35.0) pg MCHC (31.0-37.0) g/dL RDW (11.5-15.5) % Plt Count (150-450) k/uL Neutrophils % % Lymphocytes % % Monocytes % % Eosinophils % % Basophils % % Neutrophils # (1.3-7.7) k/uL Lymphocytes # (1.0-4.8) k/uL Monocytes # (0-1.0) k/uL Eosinophils # (0-0.7) k/uL Basophils # (0-0.2) k/uL PT 11.6 (9.0-12.0) sec INR 1.2 H (<1.2) APTT 27.1 (22.0-30.0) sec Sodium (137-145) mmol/L Potassium (3.5-5.1) mmol/L Chloride (98-107) mmol/L Carbon Dioxide (22-30) mmol/L Anion Gap mmol/L BUN (7-17) mg/dL Creatinine (0.52-1.04) mg/dL Est GFR (CKD-EPI)AfAm (>60 ml/min/1.73 sqM) Est GFR (CKD-EPI)NonAf (>60 ml/min/1.73 sqM) Glucose (74-99) mg/dL Calcium (8.4-10.2) mg/dL Magnesium (1.6-2.3) mg/dL Total Bilirubin (0.2-1.3) mg/dL AST (14-36) U/L ALT (9-52) U/L Alkaline Phosphatase (38-126) U/L Total Creatine Kinase (30-135) U/L CK-MB (CK-2) (0.0-2.4) ng/mL CK-MB (CK-2) Rel Index Troponin I (0.000-0.034) ng/mL Total Protein (6.3-8.2) g/dL Albumin (3.5-5.0) g/dL - Radiology Data Radiology results: image reviewed (Chest x-ray reveals no acute process) Disposition Clinical Impression: Chest pain Disposition: ADMITTED IP TO THIS HOSP Is patient prescribed a controlled substance at d/c from ED?: No Referrals: Johnny Putnam MD [Primary Care Provider] - 1-2 days Decision Time: 09:03
[2018-03-07 07:56] LABS: Basophils # (A) 0.1 k/uL (0-0.2); Basophils % (A) 1 %; Eosinophils # (A) 0.3 k/uL (0-0.7); Eosinophils % (A) 4 %; HCT 37.9 % (34.0-46.0); HGB 13.1 gm/dL (11.4-16.0); Lymphocytes # (A) 2.5 k/uL (1.0-4.8); Lymphocytes % (A) 43 %; MCHC 34.6 g/dL (31.0-37.0); MCV 92.3 fL (80.0-100.0); Mean Platelet Volume 6.9; Monocytes # (A) 0.5 k/uL (0-1.0); Monocytes % (A) 9 %; Neutrophils # (A) 2.3 k/uL (1.3-7.7); Neutrophils % (A) 40 %; Platelet Count 283 k/uL (150-450); RBC 4.11 m/uL (3.80-5.40); RDW 13.8 % (11.5-15.5); WBC 5.8 k/uL (3.8-10.6)
--- NOTE | 2018-03-07 08:02 | XR ---
EXAMINATION TYPE: XR chest 2V DATE OF EXAM: 03/07/2018 COMPARISON: 02/26/2018 HISTORY: Shortness of breath TECHNIQUE: Frontal and lateral views of the chest are obtained. FINDINGS: Scattered senescent parenchymal changes noted. Hyperinflation compatible with COPD. No evidence for infiltrate. No evidence for atelectasis. Heart size is stable. Mediastinal structures are stable and grossly unremarkable. No evidence for hilar prominence. Degenerative changes dorsal spine. IMPRESSION: 1. No evidence for acute pulmonary disease.
[2018-03-07 08:07] LABS: INR 1.2 (<1.2); Partial Thromboplastin Time 27.1 sec (22.0-30.0); Prothrombin Time 11.6 sec (9.0-12.0)
[2018-03-07 08:12] LABS: ALT 23 U/L (9-52); AST 35 U/L (14-36); Albumin 4.2 g/dL (3.5-5.0); Alkaline Phosphatase 70 U/L (38-126); Anion Gap 11 mmol/L; Blood Urea Nitrogen 14 mg/dL (7-17); Calcium 9.3 mg/dL (8.4-10.2); Carbon Dioxide 22 mmol/L (22-30); Chloride 101 mmol/L (98-107); Glucose 89 mg/dL (74-99); Magnesium 2.1 mg/dL (1.6-2.3); Potassium 4.4 mmol/L (3.5-5.1); Sodium 134 mmol/L (137-145); Total Bilirubin 0.7 mg/dL (0.2-1.3); Total Protein 7.2 g/dL (6.3-8.2)
[2018-03-07 08:17] LABS: Creatine Kinase 313 U/L (30-135)
[2018-03-07 08:30] LABS: Creatine Kinase MB 2.2 ng/mL (0.0-2.4); Troponin I <0.012 ng/mL (0.000-0.034)
[2018-03-07] MEDS ORDERED: NITROGLYCERIN SL TABS 0.4 MG TAB SUBLINGUAL PRN (09:03)
[2018-03-07] MEDS ORDERED: ACETAMINOPHEN TAB 500 MG TAB PO STA (09:40)
[2018-03-07] MEDS ORDERED: NITROGLYCERIN OINT 1 INCH/GM PACKET TOPICAL SCH (12:00)
--- NOTE | 2018-03-07 12:20 | CONS ---
CONSULTATION Mrs. Ramirez is a 72-year-old female who was recently admitted to the hospital with symptoms of dizziness. She presents again to the emergency room today with symptoms of chest discomfort. The patient was at home and started to complain of chest discomfort, came into the emergency room. She was mildly dyspneic, but she had no further dizziness. She has no prior documented history of obstructive coronary artery disease. During her last visit, she was noted to have a left bundle branch block. She had an echocardiogram in October that revealed a preserved left ventricular size and systolic function. The patient is not very active physically. Denies any exertional chest discomfort. Her discomfort lasted for about a half an hour or so. She has some peripheral edema that has been chronic. No PND. No orthopnea. No syncope. She is followed on a regular basis by Dr. Beasley. Her coronary risk factors are positive for hypertension. She is nondiabetic, nonsmoker. MEDICATION: Her medications at the time of presentation included amlodipine 2.5 mg daily, lisinopril 10 mg daily, levothyroxine, Lipitor 20 mg daily, aspirin once a day. REVIEW OF SYSTEMS: RESPIRATORY SYSTEM: She has no documented history of asthma, emphysema or bronchitis. GI SYSTEM: No recent GI bleed. No peptic ulcer disease. SYSTEM: No dysuria or hematuria. NERVOUS SYSTEM: No history of seizure. PHYSICAL EXAMINATION: She is a 72-year-old female, alert, oriented, in no apparent distress. Blood pressure 154/70 with the heart rate in the 60s. HEAD: Normocephalic. EYES: Sclerae anicteric. NECK: Good carotid upstroke. No bruit. No jugular venous distention. LUNGS: Clear to auscultation. HEART: Regular rate and rhythm. S1, S2. No S3 with systolic murmur. No diastolic murmur. No rub. ABDOMEN: Soft, obese, nontender. EXTREMITIES: No significant edema. LAB DATA: Lab data revealed a troponin less than 0.012. Potassium 4.4. Hemoglobin of 13.1. Her EKG reveals sinus mechanism with left bundle branch block that was noted in the past. Her chest x-ray revealed no acute changes. IMPRESSION: 1. Chest discomfort of unclear etiology has atypical features for ischemic heart disease. 2. Hypertension. 3. Left bundle branch block. 4. Hyperlipidemia. 5. Hypothyroidism. RECOMMENDATION: From the cardiac standpoint, we will obtain serial enzymes. If there is evidence of ischemia, then cardiac catheterization will be needed. Otherwise, she will require a myocardial perfusion imaging and depending on her status, that can be done as an inpatient or outpatient. Thank you for this consult. We will follow with you. CAROLINE / IJAnjum: [id number] /
[2018-03-07 14:47] LABS: Creatine Kinase 267 U/L (30-135)
[2018-03-07] MEDS ORDERED: ONDANSETRON 4 MG/2 ML VIAL IVP STA (14:57)
[2018-03-07 15:00] LABS: Creatine Kinase MB 1.6 ng/mL (0.0-2.4); Troponin I <0.012 ng/mL (0.000-0.034)
[2018-03-07] MEDS ORDERED: ACETAMINOPHEN TAB 325 MG TAB PO PRN (20:15)
[2018-03-07] MEDS ORDERED: RX INFO: IV CONTRAST WAS GIVEN 1 EACH MISC MISCELLANE PRN (20:23)
[2018-03-07] MEDS: MAG HYDROX/AL HYDROX/SIMETH 30 ML CUP PO PRN (20:43)
[2018-03-07] MEDS: traZODone HCL 50 MG TAB PO SCH (20:43)
[2018-03-07] MEDS: HYDROcodone/APAP 5-325MG 1 EACH TAB PO PRN (20:43)
[2018-03-07] MEDS ORDERED: ATORVASTATIN 20 MG TAB PO SCH (21:00)
[2018-03-07 21:09] LABS: Creatine Kinase 218 U/L (30-135)
[2018-03-07 21:22] LABS: Creatine Kinase MB 1.2 ng/mL (0.0-2.4); Troponin I <0.012 ng/mL (0.000-0.034)
--- NOTE | 2018-03-07 21:46 | CT ---
EXAMINATION TYPE: CT chest angio for PE with contrast and with 3-D reconstruction renderings DATE OF EXAM: 03/07/2018 COMPARISON: None HISTORY: c/o chest pressure/discomfort CT DLP: 389.2 mGycm Automated exposure control for dose reduction was used. CONTRAST: CT Chest for pulmonary embolism performed with with IV Contrast, patient injected with 72 m L of Isovue 370. FINDINGS: AIRWAYS: Unremarkable. LUNGS: The tracheobronchial tree is patent. The lungs are negative for acute findings such as pulmon derrick edema or pneumonia and no atelectasis. However, there is a 2 cm geographic nodular mass associate d with a 1 cm diameter right infrahilar lymph node. PLEURAL SPACES: There is no pleural effusion or pneumothorax seen. MEDIASTINUM: There is satisfactory enhancement of the pulmonary artery and its branches, there is no CT evidence for pulmonary embolism. No acute aortic findings. There is mild cardiomegaly and trace pe ricardial effusion. Prominent coronary calcifications are noted. There are no greater than 1 cm hilar or mediastinal lymph nodes. OTHER: No additional significant abnormality is seen. IMPRESSION: 1) NO ACUTE PROCESS; NEGATIVE FOR PULMONARY EMBOLISM. 2) CORONARY CALCIFICATIONS NOTED. 3) RIGHT LOWER LOBE NODULAR MASS ASSOCIATED WITH 1 CM RIGHT INFRAHILAR LYMPH NODE. THERE IS NO [facility] CHEST CT AVAILABLE ON PACS. Would recommend, if available, retrieving outside chest CT for dir ect comparison. If none available, would suggest consideration of PET/CT imaging. Discussed abnormal findings with the patient's nurse in [facility] just now, in order to ensure intact medic ations.
--- NOTE | 2018-03-07 22:44 | HP ---
HISTORY AND PHYSICAL DATE OF ADMISSION: 03/07/2018 DATE OF SERVICE: 03/07/2018 PRESENT COMPLAINT: Chest pressure. HISTORY OF PRESENTING COMPLAINT: This is a pleasant 72-year-old patient who follows with visiting physician Dr. Johnny Putnam. Chronic stable medical conditions include GERD, hypertension, osteoarthritis, chronic low back pain, and gastric bypass. Patient this morning she woke up feeling a bit short of breath as if somebody was standing on her chest. The patient a little bit gasping for air and the symptoms lasted for good hour and a half. There was no cough. No fever. No chills. The patient did feel a bit nauseated and decided to come in for a cardiac workup. The patient's 2 sets of troponins were negative. REVIEW OF SYSTEMS: CONSTITUTIONAL: Tired. HEENT: None. CARDIOVASCULAR: As above. GASTROINTESTINAL: Heartburn. GENITOURINARY: None. MUSCULOSKELETAL: Aches and pains in the joints. DERMATOLOGICAL, HEMATOLOGIC, LYMPHATIC: none. PSYCHIATRY none. NEUROLOGICAL: None. PAST MEDICAL HISTORY: Includes atrial fibrillation, GERD hypertension, osteoarthritis with low back, peptic ulcer disease, laryngeal cancer treated 20 years ago, Guzman's palsy, head injury in 2012, bilateral cataracts. PAST SURGICAL HISTORY: Bariatric surgery, cholecystectomy, questionable cardiac catheterization, hysterectomy, bilateral knee replacement, left shoulder rotator cuff surgery, gastric bypass, pharyngeal tumor removed, ganglion both wrists. Psych: History of anxiety and depression. SOCIAL HISTORY: Since her last hospitalization, she has been living with her son. Has visiting physician. The patient smoked for 21 years, stopped in 1980, about a pack a day. Alcohol none. FAMILY HISTORY: Congestive heart failure, diabetes and hypertension. HOME MEDICATIONS: 1. Trazodone 50 mg at bedtime. 2. Norvasc 2.5 mg p.o. daily. 3. Multivitamin 1 tablet p.o. daily. 4. Zestril 10 mg p.o. daily. 5. Synthroid 200 mcg p.o. daily. 6. [place] 5 one tablet p.o. q.6h p.r.n. 7. Lipitor 20 mg q.h.s. 8. Aspirin 81 mg p.o. daily. 9. Tylenol 650 q.6h p.r.n. ALLERGIES: TO VANCOMYCIN. PHYSICAL EXAMINATION: VITAL SIGNS: Vital signs on presentation, temperature 97.9, pulse 77, respiration 22, blood pressure 186/98, repeat blood pressure down to 104/78, pulse ox 99% on 2 L. GENERAL APPEARANCE: Well built, BMI 34.3. Lying in bed, awake, currently comfortable. No further symptoms. EYES: Pupils equal, conjunctivae normal. HEENT: External appearance of nose and ears normal. Oral cavity normal. NECK: JVD not raised. Mass not palpable. RESPIRATORY effort normal. LUNGS fair entry. CARDIOVASCULAR: 1st and 2nd sounds normal. No edema. ABDOMEN: Soft, nontender. Liver and spleen not palpable. LYMPHATICS: No lymph nodes palpable in the neck and axilla. PSYCHIATRY: Alert and oriented x3. Mood and affect normal. NEUROLOGICAL: Pupils equal. Cranial nerves grossly intact. Power and sensation grossly intact. MUSCULOSKELETAL: Evidence of osteoarthritis in the hands and knees. INVESTIGATIONS: White count 5.8, hemoglobin 13.1, platelets 283. Potassium 4.4. BUN and creatinine is normal. Troponin times two is negative. EKG tracing personally reviewed by me shows left bundle branch block with a first-degree block. Chest x-ray shows questionable borderline cardiomegaly. Lung herrera are clear. X-ray report reported to be negative. ASSESSMENT: 1. Possible unstable angina in a patient whose cardiac risk factors include hypertension, her age and being an ex-smoker, though patient troponins are negative. The patient will require at least a stress test. 2. Rule out acute pulmonary embolism. 3. Left bundle branch block, chronic. 4. Hypothyroid. 5. Essential hypertension. 6. Gastroesophageal reflux disease. 7. Primary osteoarthritis including that of the lumbar spine. 8. Obesity; BMI 34.3. PLAN: Home medications are reviewed. Serial cardiac enzymes in place. Cardiology was consulted. The patient is currently symptom-free. We will order a spiral CT to rule out a PE. Care was discussed with the patient. Questions were answered. Copy to visiting physician Dr. Johnny Putnam. MMIONAL / IJN: [id number] /
[2018-03-08] MEDS: HYDROcodone/APAP 5-325MG 1 EACH TAB PO PRN ×2 (02:21→19:38)
[2018-03-08 03:55] LABS: Cholesterol 255 mg/dL (<200); HDL Cholesterol 69 mg/dL (40-60); LDL Cholesterol,Calculated 162 mg/dL (0-99); Triglycerides 119 mg/dL (<150)
[2018-03-08] MEDS: LEVOTHYROXINE 100 MCG TAB PO SCH (05:44)
[2018-03-08] MEDS ORDERED: ASPIRIN 325 MG TAB PO SCH (09:00)
[2018-03-08] MEDS ORDERED: CAFFEINE CITRATE 60 MG/3 ML VIAL IV PRN (10:55)
[2018-03-08] MEDS ORDERED: REGADENOSON 0.4 MG/5 ML SYRINGE IV ONE (10:55)
[2018-03-08] MEDS: amLODIPine 2.5 MG TAB PO SCH (11:10)
[2018-03-08] MEDS: ASPIRIN 81 MG PO SCH (11:11)
[2018-03-08] MEDS: LISINOPRIL 10 MG TAB PO SCH (11:11)
--- NOTE | 2018-03-08 12:12 | PN ---
PROGRESS NOTE This patient was admitted with intermittent chest discomfort. Patient is feeling well. Her chest discomfort comes and goes. She denies any exertional chest discomfort. EKG shows evidence of left bundle branch block pattern. Cardiac enzymes are normal. We will obtain echo Doppler study and a stress Cardiolite study. CAROLINE / EVELYN: [id number] /
--- NOTE | 2018-03-08 15:15 | ECHOF ---
Referral Reason:chest pain MEASUREMENTS -------- HEIGHT: 167.6 cm WEIGHT: 90.7 kg BP: 102/50 IVSd: 1.5 cm (0.6 - 1.1) LVIDd: 4.6 cm (3.9 - 5.3) LVPWd: 1.6 cm (0.6 - 1.1) EDV(Teich): 95 ml IVSs: 2.0 cm LVIDs: 3.0 cm LVPWs: 1.8 cm %IVS Thck: 30 % ESV(Teich): 35 ml EF(Teich): 63 % %FS: 34 % SV(Teich): 60 ml LA Diam: 3.2 cm (2.7 - 3.8) RVIDd: 3.0 cm (< 3.3) LALs A4C: 5.0 cm LAAs A4C: 14.2 cm LAESV A-L A4C: 34 ml LAESV MOD A4C: 32 ml LALs A2C: 5.4 cm LAAs A2C: 15.0 cm LAESV A-L A2C: 35 ml LAESV MOD A2C: 33 ml LAESV(A-L): 36 ml LAESV Index (A-L): 18.16 ml/m Ao Diam: 3.3 cm (2.0 - 3.7) AV Cusp: 1.6 cm (1.5 - 2.6) EPSS: 1.1 cm MV E Trent: 0.70 m/s MV DecT: 251 ms MV Dec [place]: 2.8 m/s MV A [place]: 1.18 m/s MV E/A Ratio: 0.59 MV PHT: 73 ms AV Vmax: 1.48 m/s AV maxP.72 mmHg AR Vmax: 3.87 m/s AR maxP.85 mmHg AR PHT: 754 ms AR Dec Time: 2600 ms AR Dec [place]: 1.5 m/s TR Vmax: 1.54 m/s TR maxP.49 mmHg RAP: 5.00 mmHg RVSP: 14.49 mmHg MV EF SLOPE: 11.02 mm/s (70 - 150) MV EXCURSION: 11.43 mm (> 18.000) FINDINGS -------- Sinus rhythm. This was a technically adequate study. The left ventricular size is normal. There is moderate concentric left ventricular hypertrophy. O verall left ventricular systolic function is normal with, an EF between 55 - 60 %. The right ventricle is normal in size. Normal LA size by volume 22+/-6 ml/m2. The right atrium is normal in size. The aortic valve is trileaflet and appears structurally normal. Mild mitral annular calcification present. The tricuspid valve appears structurally normal. There is no pulmonic regurgitation present. The aortic root size is normal. IVC Not well visulized. There is no pericardial effusion. CONCLUSIONS -------- 1. Sinus rhythm. 2. This was a technically adequate study. 3. The left ventricular size is normal. 4. There is moderate concentric left ventricular hypertrophy. 5. Overall left ventricular systolic function is normal with, an EF between 55 - 60 %. 6. The right ventricle is normal in size. 7. Normal LA size by volume 22+/-6 ml/m2. 8. The right atrium is normal in size. 9. The aortic valve is trileaflet and appears structurally normal. 10. Mild mitral annular calcification present. 11. The tricuspid valve appears structurally normal. 12. There is no pulmonic regurgitation present. 13. The aortic root size is normal. 14. IVC Not well visulized. 15. There is no pericardial effusion. COMMERCIAL ACCOUNT EXECUTIVE: Susanna Diego RDCS
[2018-03-08] MEDS: ENOXAPARIN 80 MG/0.8 ML SYRINGE SQ SCH (17:35)
--- NOTE | 2018-03-08 18:23 | PN ---
PROGRESS NOTE DATE OF SERVICE: 03/08/2018. PRESENTING COMPLAINT: Chest pain. INTERVAL HISTORY: This patient admitted with what appears to be unstable angina. Had another episode of chest pain this morning. PE was ruled out. Lying in bed. 2D echo was unremarkable. Cardiology is waiting to do a stress test. REVIEW OF SYSTEMS: Done for constitutional, cardiovascular, GI, pulmonary and relevant findings as above. CURRENT MEDICATIONS: Reviewed. PHYSICAL EXAMINATION: VITAL SIGNS: Temperature 97.4, pulse 74, respiratory 18, blood pressure 102/50, pulse ox 987% on room air. GENERAL APPEARANCE: Lying in bed. Comfortable. Awake. EYES: Pupils equal. Conjunctivae normal. NECK: JVD not raised. Mass not palpable. RESPIRATORY: Effort normal. LUNGS are clear. CARDIOVASCULAR: 1st and 2nd sounds no edema. ABDOMEN: Soft, nontender. Liver and spleen not palpable. PSYCHIATRY: Alert and oriented x3. Mood and affect normal. INVESTIGATIONS: Troponin x3 negative. LDL 162. ASSESSMENT: 1. Possible unstable angina with multiple cardiac risk factors. 2. Pulmonary embolism ruled out. 3. Left bundle branch block, chronic. 4. Hypothyroid. 5. Essential hypertension. 6. Gastroesophageal reflux disease. 7. Primary osteoarthritis including the lumbar spine. 8. Obesity; BMI 34.3. 9. Hyperlipidemia uncontrolled. PLAN: The patient had another episode of chest pain this morning. Hence we will start the patient on subcu Lovenox till the stress test is done. The patient's dose of Lipitor also will be increased. MMODL / IJN: [id number] /
[2018-03-08] MEDS: MAG HYDROX/AL HYDROX/SIMETH 30 ML CUP PO PRN (18:56)
[2018-03-08] MEDS: ATORVASTATIN 40 MG TAB PO SCH (19:38)
[2018-03-08] MEDS: traZODone HCL 50 MG TAB PO SCH (19:38)
[2018-03-09] MEDS: MAG HYDROX/AL HYDROX/SIMETH 30 ML CUP PO PRN (04:13)
[2018-03-09] MEDS: LEVOTHYROXINE 100 MCG TAB PO SCH (06:01)
[2018-03-09] MEDS: ENOXAPARIN 80 MG/0.8 ML SYRINGE SQ SCH ×2 (06:01→16:23)
[2018-03-09] MEDS: ASPIRIN 81 MG PO SCH (08:37)
[2018-03-09] MEDS: amLODIPine 2.5 MG TAB PO SCH (08:37)
[2018-03-09] MEDS: LISINOPRIL 10 MG TAB PO SCH (08:37)
--- NOTE | 2018-03-09 12:39 | CONS ---
CONSULTATION 72-year-old female who was seen in the emergency room on March 07. She apparently presented to the emergency department with complaints of chest pain. It apparently began about an hour and a half or 2 hours prior to admission to the emergency room. She describes this is as a heavy pressure or discomfort graded as 6/10. The pain apparently radiates into her neck and left shoulder area, not down her left arm. She also had some nausea and some shortness of breath. A little sweats. She has no previous history of similar symptoms. PAST MEDICAL HISTORY: Is apparently positive for peptic ulcer disease, chronic back pain, laryngeal carcinoma, Guzman's palsy, head injury, cataracts, hypertension, atrial fibrillation, and gastroesophageal reflux disease. ALLERGIES: INCLUDE VANCOMYCIN. MEDICATIONS: Include Tylenol, aspirin, Lipitor, lisinopril, amlodipine, [place], levothyroxine, multivitamins, trazodone. SURGICAL HISTORY: Includes bilateral knee replacement, heart catheterization, bariatric surgery, left rotator cuff surgery, D and C, EGD/colonoscopy, laryngeal surgery for her laryngeal tumor, ganglion cyst removal in both wrists and visits to the [facility] for pain shots. SOCIAL HISTORY: Positive for previous tobacco use. She denies any illicit drug use or alcohol use. FAMILY HISTORY: Positive for congestive heart failure, diabetes, hypertension. I am asked to see the patient because in the process of evaluation, she had a chest x-ray that apparently reported nothing acute. In addition, they were concerned about a pulmonary embolism and a CT scan was done. The CT scan showed no evidence of pulmonary embolism. It did show coronary calcifications and showed a 2 cm nodular mass in the right lower lobe with a 1 cm right perihilar abnormality. For that reason, I was consulted. The patient is a previous smoker. A PET scan was suggested. I talked to the patient. I told her that this is an outpatient evaluation. I gave her my card and my number. She will call me after she gets out of the hospital. She apparently is undergoing a stress test tomorrow. I told her that we would likely do an outpatient PET scan and would also likely do pulmonary function test in the office. She understands. REVIEW OF SYSTEMS: CONSTITUTIONAL: Negative. Neurological: Negative. HEENT negative. Cardiovascular chest pain. Pulmonary: Mild shortness of breath. GI/ negative. Rheumatologic, hematologic, endocrinologic negative. Dermatologic negative as well. PHYSICAL EXAMINATION: Current vital signs are reviewed. Her temperature is normal at 98.2, heart rate 62, respiratory 17, blood pressure 123/73, mean 89, room air saturation 99%. Appears in no acute distress. HEENT examination is grossly unremarkable. Mucous membranes are moist. No oral lesions. NECK: Supple. Full range of motion. No adenopathy or thyromegaly. Neck veins are flat. Cardiovascular examination reveals regular rhythm and rate. S1, S2 normal. No S3, S4, or murmur. Heart rate 62. Lungs reveal clear breath sounds. No wheezes, rhonchi, or crackles. Breath sounds are equal bilaterally. ABDOMEN: Soft. Bowel sounds are heard. No masses or tenderness. Extremities are intact. There is no cyanosis or edema. Skin without rash. Neurologic examination is brief but nonfocal. LABS: Reviewed. CBC is completely normal. PT/INR normal. PTT normal. Electrolytes are essentially normal. Her CKs are 313, 267 and 218. Troponins were negative x3. Cholesterol 255. Chest x-ray and CT scan are reviewed. ASSESSMENT: 1. 2 cm mass, right lower lobe with a 1 cm infrahilar right-sided lymph node, rule out bronchogenic carcinoma. 2. Previous history of tobacco use, although she does not smoke currently. 3. Chest pain, currently being evaluated by Cardiology. 4. Multiple other medical problems and comorbidities as listed above. PLAN: The patient from my perspective, could be discharged. She is apparently going to have stress test tomorrow. I told her to see me in the office in followup. I gave her my card and my phone number. She will call the office. She likely will need an outpatient PET scan and also PFTs. Additional recommendations and suggestions are forthcoming. Prognosis is guarded. MMODL / IJN: [id number] /
[2018-03-09] MEDS: traZODone HCL 50 MG TAB PO SCH (19:44)
[2018-03-09] MEDS: ATORVASTATIN 40 MG TAB PO SCH (19:44)
[2018-03-09] MEDS: HYDROcodone/APAP 5-325MG 1 EACH TAB PO PRN (19:44)
--- NOTE | 2018-03-09 21:34 | PN ---
PROGRESS NOTE DATE OF SERVICE: 03/09/2018. PRESENTING COMPLAINT: Chest pain. INTERVAL HISTORY: Patient admitted with unstable angina. Seen by Dr. Olsen for lung mass. Outpatient follow up. Had some more intermittent chest pain. Awaiting for stress test per Cardiology. Did tolerate a diet, up to the bathroom. REVIEW OF SYSTEMS: Done for constitutional, cardiovascular, GI, pulmonary and relevant findings as above. CURRENT MEDICATIONS: Reviewed and include aspirin and subcu Lovenox. PHYSICAL EXAMINATION: VITAL SIGNS: Temperature 97.9, pulse 58, respirations 16, blood pressure 134/76, pulse ox 98% on room air. GENERAL APPEARANCE: Lying in bed, comfortable. EYES: Pupils equal. Conjunctivae normal. NECK: JVD not raised. Mass not palpable. RESPIRATORY: Effort normal. LUNGS are clear. CARDIOVASCULAR: 1st and 2nd sounds. No edema. ABDOMEN: Soft, nontender. Liver and spleen not palpable. PSYCHIATRY: Alert and oriented x3. Mood and affect normal. INVESTIGATIONS: Troponins have been negative. ASSESSMENT: 1. Unstable angina on Lovenox. Awaiting stress test. 2. Pulmonary embolism ruled out. 3. Left bundle branch block, chronic. 4. Hypothyroid. 5. Essential hypertension. 6. Gastroesophageal reflux disease. 7. Primary osteoarthritis including lumbar spine. 8. Obesity; BMI 34.3. 9. Hyperlipidemia uncontrolled. PLAN: The patient will see Dr. Olsen as an outpatient. Possible PET scan. Awaiting stress test per Cardiology. MMODL / IJN: [id number] /
[2018-03-10] MEDS: HYDROcodone/APAP 5-325MG 1 EACH TAB PO PRN (05:14)
[2018-03-10] MEDS: ENOXAPARIN 80 MG/0.8 ML SYRINGE SQ SCH (06:13)
[2018-03-10] MEDS: LEVOTHYROXINE 100 MCG TAB PO SCH (06:14)
[2018-03-10] MEDS ORDERED: REGADENOSON 0.4 MG/5 ML SYRINGE IV ONE (09:00)
--- NOTE | 2018-03-10 09:38 | PN ---
PROGRESS NOTE DATE OF SERVICE: The patient was admitted with recurrent chest pain. Her cardiac enzymes were negative. The patient has underlying left bundle branch block. stable. Blood pressure 134/76 mmHg. Lungs are clinically clear to auscultation and percussion. The patient is scheduled for stress test tomorrow. MMODL / IJN: [id number] /
--- NOTE | 2018-03-10 10:56 | EST ---
EXERCISE STRESS AGE: 72 SEX: F HT: 5'4" WT: 200 PROTOCOL: Lexiscan Cardiolite Stress Test HEART RATE REST: 62 BLOOD PRESSURE REST: 103/73 MAXIMUM HEART RATE ACHIEVED: 83 MAXIMUM BLOOD PRESSURE: 150/64 85% MPHR: 126 100% MPHR: 148 INDICATIONS: Chest pressure CLINICAL INFORMATION: Baseline rhythm is sinus mechanism, rate is 62, left bundle branch block. Baseline blood pressure 103/73 mmHg. Electrocardiograph monitoring revealed no evidence of diagnostic ischemic ST deviation. Cardiolite was injected at peak exercise. CONCLUSION: 1. Nondiagnostic electrocardiograph stress testing. 2. Nuclear images will be reported separately. MMODL / IJN: [id number] /
[2018-03-10] MEDS: amLODIPine 2.5 MG TAB PO SCH (11:03)
[2018-03-10] MEDS: LISINOPRIL 10 MG TAB PO SCH (11:03)
[2018-03-10] MEDS: ASPIRIN 81 MG PO SCH (11:03)
--- NOTE | 2018-03-10 11:37 | NM ---
EXAMINATION TYPE: NM stress lexiscan cardiolite DATE OF EXAM: 03/10/2018 COMPARISON: NONE HISTORY: Chest pain and pressure with history of hypertension and family history of coronary artery d isease TECHNIQUE: After the intravenous administration of 10.3 mCi Tc 99m Sestamibi - Cardiolite resting SP ECT images acquired 45 minutes post injection. The patient received 0.4mg Lexiscan, 26.1 mCi Tc 99m Sestamibi - Stress images obtained [address] injection FINDINGS: Review of stress and rest SPECT images demonstrates no reversible perfusion abnormality. Apical perfu guillermo anomaly on rest only and is artifactual Gated analysis shows normal wall motion with an estimat ed left ventricular ejection fraction of 62 % on stress although note is made of ejection fraction of 49% at rest. Transient ischemic dilatation coefficient is calculated at 1.08, within normal limits. IMPRESSION: No scintigraphic evidence for reversible ischemia.
--- NOTE | 2018-03-10 13:28 | P.PN ---
Subjective This is a pleasant 72-year-old female past medical history significant for coronary artery disease, hypertension, dyslipidemia, hypothyroidism and former nicotine dependence. Most recent catheterization 2012 revealed EF 30%, LAD 20-30% mid disease with patent stent in mid RCA. At that time it was deemed to be takotsubo syndrome. Repeat echo on this admission reveals preserved LV systolic function with EF 55-60%. CT obtained this admission reveals right lower lobe nodular mass. Pulmonary has seen her and is recommending an outpatient PET scan. She continues to feel a mild discomfort in her chest with no shortness of breath, dizziness or palpitations. Blood pressure 113/63 heart rate 56 afebrile and maintaining oxygen saturation on room air. GENERAL: Well-appearing, well-nourished and in no acute distress. NECK: Supple without JVD or thyromegaly. LUNGS: Breath sounds clear to auscultation bilaterally. Respiration equal and unlabored. No wheezes, rales or rhonchi. HEART: Regular rate and rhythm with systolic ejection murmur at the base, no rubs or gallops. S1 and S2 heard. EXTREMITIES: Normal range of motion, no edema. No clubbing or cyanosis. Peripheral pulses intact. ASSESSMENT Chest pain. An acute coronary event has been ruled out. History of coronary artery disease History of takotsubo Hypertension, controlled Left bundle branch block Right lobe mass, being followed by pulmonary Dyslipidemia, uncontrolled. Atorvastatin has been increased. Hypothyroidism Obesity, BMI 34.3 PLAN Proceed with stress test as previously ordered. If stress test is normal she is stable from a cardiac perspective, if abnormal we will consider coronary angiography. Follow up with Dr. Gonzalez in 2-3 weeks. Nurse Practitioner note has been reviewed, I agree with a documented findings and plan of care. Patient was seen and examined. Objective - Vital Signs Vital signs: Vital Signs Temp 97.6 F 03/10/18 07:25 Pulse 56 L 03/10/18 07:25 Resp 19 03/10/18 07:25 BP 113/63 03/10/18 07:25 Pulse Ox 91 L 03/10/18 07:25 Intake & Output 03/09/18 03/10/18 03/10/18 18:59 06:59 18:59 Intake Total 960 Balance 960 Weight 90.718 kg Intake: Oral 960 Other: Voiding Method Toilet Toilet Toilet # Voids 2 - Labs CBC & Chem 7: 03/07/18 07:29 03/07/18 07:29
[2018-03-10 15:25] VITALS: BP 136/77; PULSE 66; RESP 18; TEMP 98.4
--- NOTE | 2018-03-11 01:07 | DS ---
DISCHARGE SUMMARY DATE OF ADMISSION: March 07, 2018. DATE OF DISCHARGE: 03/10/2018. FINAL DIAGNOSES: 1. Chest wall pain could be musculoskeletal. 2. Pulmonary embolism ruled out. 3. Left bundle branch block, chronic. 4. Hypothyroid. 5. Essential hypertension. 6. Gastroesophageal reflux disease. 7. Primary osteoarthritis of the lumbar spine. 8. Obesity; BMI 34.3. 9. Hyperlipidemia uncontrolled. 10.Right lower lobe nodular mass, being followed by Dr. Olsen. HOSPITAL COURSE: This patient presented with chest pain, troponins were negative. LDL came back at 162. CT scan of the chest was negative for PE, showed a right lower lobe nodule or mass. Seen by Dr. Olsen. Will follow the patient as an outpatient. The patient did undergo nuclear stress test that was negative for ischemia. The patient is feeling better at the time of discharge. CONSULTATION: Dr. Gonzalez from Cardiology, Dr. Olsen from Pulmonary. PHYSICAL EXAMINATION: Temperature 98.4, pulse 56, respiratory rate 18, blood pressure 136/77, pulse ox 95% on room air. Lungs: Fair entry. Cardiovascular: 1st and 2nd sounds normal. DISCHARGE MEDICATIONS: 1. Dumont 5 one tab q.6h. 2. Synthroid 200 mcg p.o. daily. 3. Multivitamin one tablet p.o. daily. 4. Trazodone 50 mg at bedtime. 5. Tylenol 650 mg q.6 p.r.n. 6. Aspirin 81 mg a day. 7. Zestril 10 mg a day. 8. Norvasc 2.5 mg a day. 9. Lipitor 40 mg q.h.s. FOLLOW UP: Dr. Gonzalez in 2 weeks. Follow up with Dr. Johnny Putnam in 2 days, follow up with Dr. Olsen on 03/17/2018. Copy to visiting physician Dr. Johnny Putnam. MMODL / IJN: [id number] /
== END 2018-03-10 17:05 | disposition home or self-care (01) ==
LOC: EC 06:58 → 1SOBS 09:03
PROVIDERS: ADMIT Hospitalist; ATTEND Hospitalist
DX: R07.89 Other chest pain (principal); E03.9 Hypothyroidism, unspecified; E66.9 Obesity, unspecified; E78.5 Hyperlipidemia, unspecified; F41.0 Panic disorder [episodic paroxysmal anxiety]; I10 Essential (primary) hypertension; I25.110 Atherosclerotic heart disease of native coronary artery with unstable angina pectoris; K21.9 Gastro-esophageal reflux disease without esophagitis; I44.7 Left bundle-branch block, unspecified; R06.00 Dyspnea, unspecified; R11.0 Nausea; R91.8 Other nonspecific abnormal finding of lung field; Z68.34 Body mass index [BMI] 34.0-34.9, adult; I48.91 Unspecified atrial fibrillation; M47.816 Spondylosis without myelopathy or radiculopathy, lumbar region; Z87.891 Personal history of nicotine dependence; Z87.11 Personal history of peptic ulcer disease; Z90.710 Acquired absence of both cervix and uterus; Z96.653 Presence of artificial knee joint, bilateral; Z98.84 Bariatric surgery status; Z79.82 Long term (current) use of aspirin; Z79.890 Hormone replacement therapy; Z79.899 Other long term (current) drug therapy; Z82.49 Family history of ischemic heart disease and other diseases of the circulatory system; Z83.3 Family history of diabetes mellitus; Z85.21 Personal history of malignant neoplasm of larynx
CPT/HCPCS: 93005; 96372 ×3; 96374; 99285; 36415; 93017; 93306; 80061; 80053; 82550; 82553; 83735; 84484; 85025; 85610; 85730; 71046; 71275; 78452; G0378 ×4; A9500; J2405; J1650 ×3; J2785; Q9967

== ENCOUNTER 2018-03-26 14:40 | Emergency (ER) | payer MEDICARE ==
[2018-03-26 14:54] VITALS: TEMP 97.5
[2018-03-26] MEDS ORDERED: SODIUM CHLORIDE 0.9% 1,000 ML IV STA (15:30)
[2018-03-26 17:06] LABS: Basophils % (A) 0 %; Eosinophils # (A) 0.3 k/uL (0-0.7); Eosinophils % (A) 2 %; HCT 35.8 % (34.0-46.0); HGB 12.1 gm/dL (11.4-16.0); Lymphocytes # (A) 1.1 k/uL (1.0-4.8); Lymphocytes % (A) 10 %; MCHC 33.8 g/dL (31.0-37.0); MCV 94.5 fL (80.0-100.0); Mean Platelet Volume 7.5; Monocytes # (A) 0.6 k/uL (0-1.0); Monocytes % (A) 5 %; Neutrophils # (A) 9.2 k/uL (1.3-7.7); Neutrophils % (A) 81 %; Platelet Count 269 k/uL (150-450); RBC 3.79 m/uL (3.80-5.40); RDW 13.9 % (11.5-15.5); WBC 11.3 k/uL (3.8-10.6)
[2018-03-26 17:19] LABS: Albumin 3.9 g/dL (3.5-5.0); Potassium 4.1 mmol/L (3.5-5.1); Total Bilirubin 0.6 mg/dL (0.2-1.3); Total Protein 6.6 g/dL (6.3-8.2)
[2018-03-26 17:20] LABS: Appearance,Urine Clear (Clear); Bilirubin,Urine Negative (Negative); Blood,Urine Negative (Negative); Color,Urine Yellow; Glucose,Urine (UA) Negative (Negative); Ketones,Urine Negative (Negative); Leukocyte Esterase,Urine Negative (Negative); Nitrite,Urine Negative (Negative); Protein,Urine Negative (Negative); Specific Gravity,Urine 1.011 (1.001-1.035)
--- NOTE | 2018-03-26 17:34 | ED ---
General Adult HPI - General Chief complaint: Nausea/Vomiting/Diarrhea Stated complaint: feels like shes going to pass out Source: patient, RN notes reviewed, old records reviewed Mode of arrival: wheelchair Limitations: no limitations - History of Present Illness Initial comments: 72-year-old female patient past medical history of peptic ulcer disease, diverticulitis presents with 2 days of suprapubic, right lower quadrant, left lower quadrant pain. Patient describes the pain as waxing and waning, dull. Additionally patient had 2 episodes of emesis, one last night after eating, noted this morning after eating cereal. Patient has not had a emesis or nausea/ vomiting since then. Patient denies any dysuria, vaginal discharge. Patient has not taken anything for this pain, patient has not been previously evaluated for this pain. Patient denies chest pain, shortness of breath, headache, changes in vision, new weakness or paresthesias, nausea vomiting or diarrhea. Systemic: Pt denies fatigue, myalgia, fever/chills, rash. Pt denies weakness, night sweats, weight loss. Neuro: Pt denies headache, visual disturbances, syncope or pre-syncope. HEENT: Pt denies ocular discharge or irritation, otalgia, rhinorrhea, pharyngitis or notable lymphadenopathy. Cardiopulmonary: Pt denies chest pain, SOB, heart palpitations, dyspnea on exertion. : Pt denies dysuria, burning w/ urination, frequency/urgency. Denies new onset urinary or bowel incontinence. MSK: Pt denies myalgia, loss of strength or function in extremities. Neuro: Pt denies new onset weakness, paresthesias. - Related Data Home Medications Medication Instructions Recorded Confirmed HYDROcodone/APAP 5-325MG [[place] 1 tab PO Q6HR 02/26/18 03/26/18 5-325] Levothyroxine Sodium [Synthroid] 200 mcg PO DAILY 02/26/18 03/26/18 Multivitamins, Thera [Multivitamin 1 tab PO DAILY 02/26/18 03/26/18 (formulary)] traZODone HCL 50 mg PO HS 02/26/18 03/26/18 Previous Rx's Medication Instructions Recorded Acetaminophen Tab [Tylenol] 650 mg PO Q6HR PRN tab 03/01/18 Aspirin 81 mg PO DAILY #30 chew 03/01/18 Lisinopril [Zestril] 10 mg PO DAILY #30 tab 03/01/18 amLODIPine BESYLATE [Norvasc] 2.5 mg PO DAILY #30 tab 03/01/18 Atorvastatin [Lipitor] 40 mg PO HS #90 tab 03/10/18 Allergies Allergy/AdvReac Type Severity Reaction Status Date / Time vancomycin Allergy Rash/Hives Verified 03/26/18 15:10 Review of Systems ROS Statement: Those systems with pertinent positive or pertinent negative responses have been documented in the HPI. ROS Other: All systems not noted in ROS Statement are negative. 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 History of Any Multi-Drug Resistant Organisms: MRSA Date of last positivie culture/infection: 1997 MDRO Source:: left shoulder Past Surgical History: Bariatric Surgery, Cholecystectomy, Heart Catheterization , Hysterectomy, Joint Replacement, Orthopedic Surgery Additional Past Surgical History / Comment(s): Bilateral knee replacement, left shoulder rotator cuff surgery, gastric bypass, D&C, EGD/colonoscopy, laryngeal tumor removed, Ganglion Cysts both wrists.PAIN CLINIC INJECTIONS Past Anesthesia/Blood Transfusion Reactions: No Reported Reaction Date of Last Stent Placement:: 2012 Past Psychological History: Anxiety, Depression, Panic Disorder Smoking Status: Former smoker Past Alcohol Use History: None Reported Past Drug Use History: None Reported - Past Family History Mother Family Medical History: Cancer, Congestive Heart Failure (CHF), Diabetes Mellitus, Hypertension Additional Family Medical History / Comment(s): Mother passed at 93. Father Family Medical History: Myocardial Infarction (ME) Additional Family Medical History / Comment(s): Father of a ME at the age of 39 yrs. Sister(s) Family Medical History: Cancer Brother(s) Family Medical History: Cancer, Myocardial Infarction (ME) General Exam - General Exam Comments Initial Comments: Constitutional: NAD, AOX3, Pt has pleasant affect. HEENT: NC/AT, trachea midline, neck supple, no lymphadenopathy. Posterior pharynx non erythematous, without exudates. External ears appear normal, without discharge. Mucous membranes moist. Eyes PERRLA, EOM intact. There is no scleral icterus. No pallor noted. Cardiopulmonary: RRR, no murmurs, rubs or gallops, no JVD noted. Lungs CTAB in anterior and posterior herrera. No peripheral edema. Abdominal exam: Abdomen soft and non-distended. Abdomen mildly tender to palpation in suprapubic, right lower quadrant, left lower quadrant. No guarding or rigidity. Bowel sounds active in LLQ. No hepatosplenomegaly. No ecchymosis Neuro: CN II-XII grossly intact. No nuchal rigidity. MSK: No posterior calf tenderness bilaterally, homans sign negative bilaterally. Posterior tibialis and radial pulse +2 bilaterally. Sensation intact in upper and lower extremities. Full active ROM in upper and lower extremities, 5/5 strength. Limitations: no limitations Course Vital Signs 03/26/18 03/26/18 14:52 19:16 Temperature 97.5 F L Pulse Rate 65 64 Respiratory 16 17 Rate Blood Pressure 165/76 127/70 O2 Sat by Pulse 99 97 Oximetry Medical Decision Making - Medical Decision Making 72-year-old female patient presents here with 2 days of right lower quadrant, suprapubic, left lower quadrant pain, 2 episodes of emesis. Denies any other symptoms. Physical exam displayed right lower quadrant, superior, left lower quadrant tenderness. No guarding or rigidity. Physical exam not displaying any other acute pathology. Laboratory investigations were conducted. CBC displayed a slight leukocytosis of 11.3. CMP displayed a slight hyponatremia at 1:30. Troponin was negative, plasma lactic acid was within normal limits, magnesium level was within normal limits, troponin is negative, lipase was within normal limits. UA does not display acute pathology. Chest x-ray was conducted sensibly acute pathology. CT abdomen and pelvis tensely acute pathology. EKG is not concerning for ischemia. Patient to be discharged and follow up with primary care provider in 1-2 days. Patient to return to ED if any new abdominal pain or any new symptoms develop. Case discussed with Dr. Schwartz. - Lab Data Result diagrams: 03/26/18 16:45 03/26/18 16:45 Lab Results 03/26/18 03/26/18 03/26/18 Range/Units 16:45 16:45 16:45 WBC 11.3 H (3.8-10.6) k/uL RBC 3.79 L (3.80-5.40) m/uL Hgb 12.1 (11.4-16.0) gm/dL Hct 35.8 (34.0-46.0) % MCV 94.5 (80.0-100.0) fL MCH 32.0 (25.0-35.0) pg MCHC 33.8 (31.0-37.0) g/dL RDW 13.9 (11.5-15.5) % Plt Count 269 (150-450) k/uL Neutrophils % 81 % Lymphocytes % 10 % Monocytes % 5 % Eosinophils % 2 % Basophils % 0 % Neutrophils # 9.2 H (1.3-7.7) k/uL Lymphocytes # 1.1 (1.0-4.8) k/uL Monocytes # 0.6 (0-1.0) k/uL Eosinophils # 0.3 (0-0.7) k/uL Basophils # 0.0 (0-0.2) k/uL Sodium 130 L (137-145) mmol/L Potassium 4.1 (3.5-5.1) mmol/L Chloride 98 (98-107) mmol/L Carbon Dioxide 22 (22-30) mmol/L Anion Gap 10 mmol/L BUN 13 (7-17) mg/dL Creatinine 0.81 (0.52-1.04) mg/dL Est GFR (CKD-EPI)AfAm 85 (>60 ml/min/1.73 sqM) Est GFR (CKD-EPI)NonAf 73 (>60 ml/min/1.73 sqM) Glucose 78 (74-99) mg/dL Plasma Lactic Acid Anthony 0.8 (0.7-2.0) mmol/L Calcium 9.0 (8.4-10.2) mg/dL Magnesium 2.0 (1.6-2.3) mg/dL Total Bilirubin 0.6 (0.2-1.3) mg/dL AST 36 (14-36) U/L ALT 24 (9-52) U/L Alkaline Phosphatase 59 (38-126) U/L Troponin I (0.000-0.034) ng/mL Total Protein 6.6 (6.3-8.2) g/dL Albumin 3.9 (3.5-5.0) g/dL Lipase 67 (23-300) U/L Urine Color Urine Appearance (Clear) Urine pH (5.0-8.0) Ur Specific [place] (1.001-1.035) Urine Protein (Negative) Urine Glucose (UA) (Negative) Urine Ketones (Negative) Urine Blood (Negative) Urine Nitrite (Negative) Urine Bilirubin (Negative) Urine Urobilinogen (<2.0) mg/dL Ur Leukocyte Esterase (Negative) 03/26/18 03/26/18 Range/Units 16:45 17:08 WBC (3.8-10.6) k/uL RBC (3.80-5.40) m/uL Hgb (11.4-16.0) gm/dL Hct (34.0-46.0) % MCV (80.0-100.0) fL MCH (25.0-35.0) pg MCHC (31.0-37.0) g/dL RDW (11.5-15.5) % Plt Count (150-450) k/uL Neutrophils % % Lymphocytes % % Monocytes % % Eosinophils % % Basophils % % Neutrophils # (1.3-7.7) k/uL Lymphocytes # (1.0-4.8) k/uL Monocytes # (0-1.0) k/uL Eosinophils # (0-0.7) k/uL Basophils # (0-0.2) k/uL Sodium (137-145) mmol/L Potassium (3.5-5.1) mmol/L Chloride (98-107) mmol/L Carbon Dioxide (22-30) mmol/L Anion Gap mmol/L BUN (7-17) mg/dL Creatinine (0.52-1.04) mg/dL Est GFR (CKD-EPI)AfAm (>60 ml/min/1.73 sqM) Est GFR (CKD-EPI)NonAf (>60 ml/min/1.73 sqM) Glucose (74-99) mg/dL Plasma Lactic Acid Anthony (0.7-2.0) mmol/L Calcium (8.4-10.2) mg/dL Magnesium (1.6-2.3) mg/dL Total Bilirubin (0.2-1.3) mg/dL AST (14-36) U/L ALT (9-52) U/L Alkaline Phosphatase (38-126) U/L Troponin I <0.012 (0.000-0.034) ng/mL Total Protein (6.3-8.2) g/dL Albumin (3.5-5.0) g/dL Lipase (23-300) U/L Urine Color Yellow Urine Appearance Clear (Clear) Urine pH 6.0 (5.0-8.0) Ur Specific [place] 1.011 (1.001-1.035) Urine Protein Negative (Negative) Urine Glucose (UA) Negative (Negative) Urine Ketones Negative (Negative) Urine Blood Negative (Negative) Urine Nitrite Negative (Negative) Urine Bilirubin Negative (Negative) Urine Urobilinogen 2.0 (<2.0) mg/dL Ur Leukocyte Esterase Negative (Negative) - EKG Data -: EKG Interpreted by Me EKG Comments: Ventricular rate 65. Follow 184, Disposition Clinical Impression: Abdominal pain Disposition: HOME SELF-CARE Condition: Good Instructions: Abdominal Pain (ED) Additional Instructions: Patient to adhere to previously discussed treatment plan and will take medication(s) as directed. Patient to follow up with PCP in 1-2 days. Patient to return to ED if symptoms do not improve. Is patient prescribed a controlled substance at d/c from ED?: No Referrals: Johnny Putnam MD [Primary Care Provider] - 1-2 days Time of Disposition: 19:31
--- NOTE | 2018-03-26 18:16 | XR ---
EXAMINATION TYPE: XR chest 2V DATE OF EXAM: 03/26/2018 COMPARISON: 03/07/2018 HISTORY: Chest pain TECHNIQUE: Frontal and lateral views of the chest are obtained. FINDINGS: There is no heart failure nor confluent pneumonic infiltrate. Heart and mediastinum are wi thin normal limits. Costophrenic angles are clear. There are no hilar masses. There is left shoulder prosthesis. IMPRESSION: No active cardiopulmonary disease. Normal heart. No change.
--- NOTE | 2018-03-26 18:51 | CT ---
EXAMINATION TYPE: CT abdomen pelvis w con DATE OF EXAM: 03/26/2018 COMPARISON: 10/09/2017 HISTORY: Abdominal pain, nausea and vomiting. CT DLP: 1154.7 mGycm Automated exposure control for dose reduction was used. TECHNIQUE: Helical acquisition of images was performed from the lung bases through the pelvis. CONTRAST: Performed without Oral Contrast and with IV Contrast, patient injected with 100 mL of Isovue 300. FINDINGS: Lung bases are clear. There is no pleural effusion. Heart size is normal. There is no pericardial eff usion. There are surgical clips from apparent bariatric surgery. There is gastrojejunal bypass. Liver appears normal. There are clips from cholecystectomy. Bile ducts are not dilated. There is no eviden ce of a splenic mass. There is no pancreatic mass. There is no adrenal mass. Kidneys show satisfactory contrast opacification. There is no hydronephrosi s. There is no sign of a bowel obstruction. There are sigmoid diverticula. There is no evidence of di verticulitis. Bladder distends smoothly. There is no inguinal hernia. There is no free fluid in the p dunia. There is no mesenteric edema. There is a first-degree L4-5 degenerative spondylolisthesis. The re is multilevel spondylotic changes in the lumbar spine. There is no compression fracture. There is no focal bone destruction. There is mild lumbar dextroscoliosis. There is small umbilical hernia that contains fat. IMPRESSION: PREVIOUS GASTRIC BYPASS SURGERY. NO SIGN OF ACUTE ABDOMEN AND PELVIS. SIGMOID DIVERTICULOSIS. NO SIGN IFICANT CHANGE COMPARED TO OLD EXAM.
[2018-03-26 19:18] VITALS: BP 127/70; PULSE 64; RESP 17
--- NOTE | 2018-03-26 23:43 | ED ---
Medical Decision Making - Lab Data Result diagrams: 03/26/18 16:45 03/26/18 16:45 Lab Results 03/26/18 03/26/18 03/26/18 Range/Units 16:45 16:45 16:45 WBC 11.3 H (3.8-10.6) k/uL RBC 3.79 L (3.80-5.40) m/uL Hgb 12.1 (11.4-16.0) gm/dL Hct 35.8 (34.0-46.0) % MCV 94.5 (80.0-100.0) fL MCH 32.0 (25.0-35.0) pg MCHC 33.8 (31.0-37.0) g/dL RDW 13.9 (11.5-15.5) % Plt Count 269 (150-450) k/uL Neutrophils % 81 % Lymphocytes % 10 % Monocytes % 5 % Eosinophils % 2 % Basophils % 0 % Neutrophils # 9.2 H (1.3-7.7) k/uL Lymphocytes # 1.1 (1.0-4.8) k/uL Monocytes # 0.6 (0-1.0) k/uL Eosinophils # 0.3 (0-0.7) k/uL Basophils # 0.0 (0-0.2) k/uL Sodium 130 L (137-145) mmol/L Potassium 4.1 (3.5-5.1) mmol/L Chloride 98 (98-107) mmol/L Carbon Dioxide 22 (22-30) mmol/L Anion Gap 10 mmol/L BUN 13 (7-17) mg/dL Creatinine 0.81 (0.52-1.04) mg/dL Est GFR (CKD-EPI)AfAm 85 (>60 ml/min/1.73 sqM) Est GFR (CKD-EPI)NonAf 73 (>60 ml/min/1.73 sqM) Glucose 78 (74-99) mg/dL Plasma Lactic Acid Anthony 0.8 (0.7-2.0) mmol/L Calcium 9.0 (8.4-10.2) mg/dL Magnesium 2.0 (1.6-2.3) mg/dL Total Bilirubin 0.6 (0.2-1.3) mg/dL AST 36 (14-36) U/L ALT 24 (9-52) U/L Alkaline Phosphatase 59 (38-126) U/L Troponin I (0.000-0.034) ng/mL Total Protein 6.6 (6.3-8.2) g/dL Albumin 3.9 (3.5-5.0) g/dL Lipase 67 (23-300) U/L Urine Color Urine Appearance (Clear) Urine pH (5.0-8.0) Ur Specific [place] (1.001-1.035) Urine Protein (Negative) Urine Glucose (UA) (Negative) Urine Ketones (Negative) Urine Blood (Negative) Urine Nitrite (Negative) Urine Bilirubin (Negative) Urine Urobilinogen (<2.0) mg/dL Ur Leukocyte Esterase (Negative) 03/26/18 03/26/18 Range/Units 16:45 17:08 WBC (3.8-10.6) k/uL RBC (3.80-5.40) m/uL Hgb (11.4-16.0) gm/dL Hct (34.0-46.0) % MCV (80.0-100.0) fL MCH (25.0-35.0) pg MCHC (31.0-37.0) g/dL RDW (11.5-15.5) % Plt Count (150-450) k/uL Neutrophils % % Lymphocytes % % Monocytes % % Eosinophils % % Basophils % % Neutrophils # (1.3-7.7) k/uL Lymphocytes # (1.0-4.8) k/uL Monocytes # (0-1.0) k/uL Eosinophils # (0-0.7) k/uL Basophils # (0-0.2) k/uL Sodium (137-145) mmol/L Potassium (3.5-5.1) mmol/L Chloride (98-107) mmol/L Carbon Dioxide (22-30) mmol/L Anion Gap mmol/L BUN (7-17) mg/dL Creatinine (0.52-1.04) mg/dL Est GFR (CKD-EPI)AfAm (>60 ml/min/1.73 sqM) Est GFR (CKD-EPI)NonAf (>60 ml/min/1.73 sqM) Glucose (74-99) mg/dL Plasma Lactic Acid [place] (0.7-2.0) mmol/L Calcium (8.4-10.2) mg/dL Magnesium (1.6-2.3) mg/dL Total Bilirubin (0.2-1.3) mg/dL AST (14-36) U/L ALT (9-52) U/L Alkaline Phosphatase (38-126) U/L Troponin I <0.012 (0.000-0.034) ng/mL Total Protein (6.3-8.2) g/dL Albumin (3.5-5.0) g/dL Lipase (23-300) U/L Urine Color Yellow Urine Appearance Clear (Clear) Urine pH 6.0 (5.0-8.0) Ur Specific [place] 1.011 (1.001-1.035) Urine Protein Negative (Negative) Urine Glucose (UA) Negative (Negative) Urine Ketones Negative (Negative) Urine Blood Negative (Negative) Urine Nitrite Negative (Negative) Urine Bilirubin Negative (Negative) Urine Urobilinogen 2.0 (<2.0) mg/dL Ur Leukocyte Esterase Negative (Negative) - EKG Data -: EKG Interpreted by Me (and dr easton) EKG Comments: Ventricular rate 65,. For one 84, QRS 108, QTC QTC 4 sensation is 495. Normal sinus rhythm, No concern for acute ischemia. Disposition Clinical Impression: Abdominal pain Disposition: HOME SELF-CARE Condition: Good Instructions: Abdominal Pain (ED) Additional Instructions: Patient to adhere to previously discussed treatment plan and will take medication(s) as directed. Patient to follow up with PCP in 1-2 days. Patient to return to ED if symptoms do not improve. Is patient prescribed a controlled substance at d/c from ED?: No Referrals: Johnny Putnam MD [Primary Care Provider] - 1-2 days
== END 2018-03-26 19:43 | disposition home or self-care (01) ==
LOC: EC 14:40
DX: R10.31 Right lower quadrant pain (principal); R10.32 Left lower quadrant pain; R11.2 Nausea with vomiting, unspecified; D72.829 Elevated white blood cell count, unspecified; E87.1 Hypo-osmolality and hyponatremia; I25.119 Atherosclerotic heart disease of native coronary artery with unspecified angina pectoris; I48.91 Unspecified atrial fibrillation; K21.9 Gastro-esophageal reflux disease without esophagitis; I10 Essential (primary) hypertension; M19.90 Unspecified osteoarthritis, unspecified site; F41.0 Panic disorder [episodic paroxysmal anxiety]; F32.9 Major depressive disorder, single episode, unspecified; M54.9 Dorsalgia, unspecified; G89.29 Other chronic pain; Z87.891 Personal history of nicotine dependence; Z86.14 Personal history of Methicillin resistant Staphylococcus aureus infection; Z85.21 Personal history of malignant neoplasm of larynx; Z79.891 Long term (current) use of opiate analgesic; Z79.899 Other long term (current) drug therapy; Z88.1 Allergy status to other antibiotic agents; Z95.818 Presence of other cardiac implants and grafts; Z96.653 Presence of artificial knee joint, bilateral; Z98.84 Bariatric surgery status
CPT/HCPCS: 36415; 93005; 80053; 83605; 83690; 83735; 84484; 85025; 81003; 71046; 74177; 99285; 96360; 96361; Q9967

== ENCOUNTER 2018-06-05 14:25 | Emergency (ER) | payer MEDICARE, OTHER ==
[2018-06-05 14:31] VITALS: TEMP 97.9
[2018-06-05] MEDS ORDERED: MORPHINE SULFATE 4 MG/ML SYRINGE IM STA (14:46)
[2018-06-05 15:11] VITALS: RESP 18
[2018-06-05] MEDS ORDERED: LISINOPRIL 10 MG TAB PO STA (15:11)
[2018-06-05] MEDS ORDERED: amLODIPine 5 MG TAB PO STA ×2 (15:11→15:16)
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
[2018-06-05 16:41] VITALS: BP 177/80; PULSE 70
== END 2018-06-05 16:40 | disposition home or self-care (01) ==
LOC: EC 14:25
DX: M25.511 Pain in right shoulder (principal); M25.521 Pain in right elbow; I48.91 Unspecified atrial fibrillation; I25.119 Atherosclerotic heart disease of native coronary artery with unspecified angina pectoris; M54.5 Low back pain; G89.29 Other chronic pain; M19.90 Unspecified osteoarthritis, unspecified site; F32.9 Major depressive disorder, single episode, unspecified; F41.0 Panic disorder [episodic paroxysmal anxiety]; Z85.21 Personal history of malignant neoplasm of larynx; Z86.14 Personal history of Methicillin resistant Staphylococcus aureus infection; Z87.891 Personal history of nicotine dependence; Z79.890 Hormone replacement therapy; Z79.899 Other long term (current) drug therapy; Z88.1 Allergy status to other antibiotic agents; Z95.818 Presence of other cardiac implants and grafts; Z96.653 Presence of artificial knee joint, bilateral; V49.9XXA Car occupant (driver) (passenger) injured in unspecified traffic accident, initial encounter; Y92.410 Unspecified street and highway as the place of occurrence of the external cause
CPT/HCPCS: 70450; 72125; 96372; 99284

== ENCOUNTER → 2018-09-02 | Outpatient (CLI) | payer MEDICARE ==
[2018-09-02 12:20] VITALS: PULSE 70; RESP 18
--- NOTE | 2018-09-02 12:34 | P.PN ---
Subjective Progress Note Date: 09/02/18 This is a pleasant 72-year-old lady with history of chronic lower back pain with radiation to the left lower extremity to the left foot with tingling and numbness in the left leg. The patient denies any bowel or bladder dysfunction though she does feel some weakness in her left leg. The patient used to get lumbar epidural steroid injection with very good improvement in her pain however she has not had these injections for more than 6 months now. She just started using [place] 5 mg twice a day by her family physician. Today, pt denies new-onset weakness, bowel/bladder incontinence, or any other signs or symptoms of cauda equina syndrome. There are no signs of acute intoxication, and no indications of medication diversion or overuse. In addition to above, 13-point review of systems is also negative for chest pain, shortness of breath, changes in vision, changes in hearing, new onset weakness, abdominal pain, diarrhea, extreme fatigue, malaise, fever, skin changes, homicidal or suicidal ideation, or bowel or bladder incontinence. Vital Signs: Reviewed in EMR Gen: AAOx3, NAD HEENT: PERRLA,hearing grossly normal Pulm: resp unlabored,CTA Heart: Regular Neck: supple, trachea midline Neuro exam of the lower extremities: Normal muscle strength bilaterally and normal deep tendon reflexes symmetrically. Straight leg raising test: Negative bilaterally Facet loading test: Positive Tenderness in the paravertebral musculature: Positive tenderness in the lumbar paravertebral musculature Neuro: CN II-XII grossly intact, Imaging: Reviewed in EMR/chart Assessment: Morbid obesity Left lumbar radiculopathy Lumbar spondylosis without myelopathy Poorly controlled hypertension Plan: 1. Explanation: Opioid and psychological risk scores were reviewed. Diagnoses, prognoses, and multiple treatment options including but not limited to physical therapy, interventional therapies, adjuvant medical therapies, narcotic medication therapies, and surgery were discussed with the patient and all questions were answered to the patient's satisfaction. 2. Opioid agreement: No opioids are prescribed by our clinic 3. Counseling: The patient was counseled extensively on SMOKING CESSATION, BODY MASS INDEX, EXERCISE. Specifically, the patient was instructed regarding the importance of smoking cessation, obesity, and exercise in the context of both chronic pain and overall health. 4. Procedures: Scheduled for lumbar epidural steroid injection under fluoroscopic guidance at the L4 5 level in the left paramedian approach 5. Consultations: None 6. Investigations: None 7. Medications: None 8. Disposition: Procedure the above-mentioned procedure as soon as possible 9. Maps were reviewed and were appropriate. PQRS measures: 1-Patient's medications are documented in the chart. 2-Tobacco use is negative, counseling given 3-Patient has had a pneumococcal vaccine. 4-Advanced care planning discussed, patient unable to give 5-Opioid contract signed with the patient. 6-Pain positive, follow-up visit or procedure scheduled 7-Patient's blood pressure measured and documented above limits. The patient will follow up with his primary care physician. 8-Patient's weight was measured, and body mass index ABOVE the normal limits, and counseling was done. Patient instructed to follow up with PCP. 9-Patient WAS NOT identified as an unhealthy alcohol user. Objective - Vital Signs Vital signs: Vital Signs Temp Pulse 70 09/02/18 12:11 Resp 18 09/02/18 12:11 BP 185/125 09/02/18 12:11 Pulse Ox 98 09/02/18 12:11 Intake & Output 09/01/18 09/02/18 09/02/18 18:59 06:59 18:59 Weight 90.718 kg
[2018-09-02 12:37] VITALS: BP 181/97
== END ==
LOC: PNWHC3 12:04
PROVIDERS: ATTEND Anesthesiology
DX: E66.01 Morbid (severe) obesity due to excess calories (principal); M47.26 Other spondylosis with radiculopathy, lumbar region; I10 Essential (primary) hypertension
CPT/HCPCS: 99211

== ENCOUNTER 2018-09-13 19:14 | Emergency (ER) | payer MEDICARE ==
[2018-09-13 20:08] VITALS: TEMP 98.8
[2018-09-13] MEDS ORDERED: SODIUM CHLORIDE 0.9% 1,000 ML IV STA (20:32)
--- NOTE | 2018-09-13 21:12 | ED ---
Abdominal Pain HPI - General Source: patient Mode of arrival: ambulatory Limitations: no limitations <Xin Antony - Last Filed: 09/14/18 00:16> <Kaelyn Nieto - Last Filed: 09/15/18 01:58> - General Chief Complaint: Abdominal Pain Stated Complaint: Fall, abd pain Time Seen by Provider: 09/13/18 20:14 - History of Present Illness Initial Comments: Patient is a 72-year-old female who presents to emergency Department with complaints of abdominal pain since this morning. Patient denies associated nausea and vomiting. Patient reports the pain is increasing as the day goes on. Of note, patient states she did fall today while trying to sit on the toilet. Patient states her knee gave out. Patient denies hitting her head or loss of consciousness. Patient reports some back pain from her fall, but states she's had chronic back pain for years now. Patient denies any chest pain, shortness of breath, nausea, vomiting. Patient reports no other complaints at this time. (Xin Antony) - Related Data Home Medications Medication Instructions Recorded Confirmed HYDROcodone/APAP 5-325MG [[place] 1 tab PO Q6HR 02/26/18 09/02/18 5-325] Levothyroxine Sodium [Synthroid] 200 mcg PO DAILY 02/26/18 09/02/18 Multivitamins, Thera [Multivitamin 1 tab PO DAILY 02/26/18 09/02/18 (formulary)] traZODone HCL 50 mg PO HS 02/26/18 09/02/18 Previous Rx's Medication Instructions Recorded Acetaminophen Tab [Tylenol] 650 mg PO Q6HR PRN tab 03/01/18 Aspirin 81 mg PO DAILY #30 chew 03/01/18 Lisinopril [Zestril] 10 mg PO DAILY #30 tab 03/01/18 amLODIPine BESYLATE [Norvasc] 2.5 mg PO DAILY #30 tab 03/01/18 Atorvastatin [Lipitor] 40 mg PO HS #90 tab 03/10/18 Ibuprofen [Motrin] 600 mg PO Q6HR PRN #40 day 06/05/18 amLODIPine [Norvasc] 2.5 mg PO DAILY 14 Days #14 tablet 06/05/18 Dicyclomine [Bentyl] 20 mg PO TID #30 tablet 09/14/18 Allergies Allergy/AdvReac Type Severity Reaction Status Date / Time vancomycin Allergy Rash/Hives Verified 09/13/18 20:08 Review of Systems ROS Other: All systems not noted in ROS Statement are negative. <Xin Antony - Last Filed: 09/14/18 00:16> ROS Other: All systems not noted in ROS Statement are negative. <Kaelyn Nieto - Last Filed: 09/15/18 01:58> ROS Statement: Those systems with pertinent positive or pertinent negative responses have been documented in the HPI. 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 History of Any Multi-Drug Resistant Organisms: MRSA Date of last positivie culture/infection: 1997 MDRO Source:: left shoulder Past Surgical History: Bariatric Surgery, Cholecystectomy, Heart Catheterization, Hysterectomy, Joint Replacement, Orthopedic Surgery Additional Past Surgical History / Comment(s): Bilateral knee replacement, left shoulder rotator cuff surgery, gastric bypass, D&C, EGD/colonoscopy, laryngeal tumor removed, Ganglion Cysts both wrists.PAIN CLINIC INJECTIONS Past Anesthesia/Blood Transfusion Reactions: No Reported Reaction Date of Last Stent Placement:: 2012 Past Psychological History: Anxiety, Depression, Panic Disorder Smoking Status: Former smoker Past Alcohol Use History: None Reported Past Drug Use History: None Reported - Past Family History Mother Family Medical History: Cancer, Congestive Heart Failure (CHF), Diabetes Mellitus, Hypertension Additional Family Medical History / Comment(s): Mother passed at 93. Father Family Medical History: Myocardial Infarction (IA) Additional Family Medical History / Comment(s): Father of a IA at the age of 39 yrs. Sister(s) Family Medical History: Cancer Brother(s) Family Medical History: Cancer, Myocardial Infarction (IA) <Xin Antony - Last Filed: 09/14/18 00:16> General Exam Limitations: no limitations <Xin Antony - Last Filed: 09/14/18 00:16> - General Exam Comments Initial Comments: GENERAL: Well-appearing, well-nourished and in no acute distress. HEAD: Atraumatic, normocephalic. EYES: Pupils equal round and reactive to light, extraocular movements intact, sclera anicteric, conjunctiva are normal. ENT: TMs normal, nares patent, oropharynx clear without exudates. Moist mucous membranes. NECK: Normal range of motion, supple without lymphadenopathy or JVD. LUNGS: Breath sounds clear to auscultation bilaterally and equal. No wheezes rales or rhonchi. HEART: Regular rate and rhythm without murmurs, rubs or gallops. ABDOMEN: Generalized abdominal tenderness with palpation. Soft, normoactive bowel sounds. No guarding, no rebound. No masses appreciated. : Deferred EXTREMITIES: Normal range of motion, no pitting or edema. No clubbing or cyanosis. NEUROLOGICAL: Cranial nerves II through XII grossly intact. Normal speech, normal gait. PSYCH: Normal mood, normal affect. SKIN: Warm, Dry, normal turgor, no rashes or lesions noted. (Xin Antony) Course Vital Signs 09/13/18 09/13/18 09/13/18 20:05 21:52 23:57 Temperature 98.8 F Pulse Rate 72 67 67 Respiratory 18 16 16 Rate Blood Pressure 196/96 191/91 184/101 O2 Sat by Pulse 98 95 97 Oximetry 09/14/18 00:33 Temperature Pulse Rate 69 Respiratory 16 Rate Blood Pressure 151/80 O2 Sat by Pulse 96 Oximetry Medical Decision Making - Lab Data Result diagrams: 09/13/18 21:06 09/13/18 21:06 <Xin Antony - Last Filed: 09/14/18 00:16> - Lab Data Result diagrams: 09/13/18 21:06 09/13/18 21:06 <Kaelyn Nieto - Last Filed: 09/15/18 01:58> - Medical Decision Making Patient is a 72-year-old female here for abdominal pain since this morning. Patient denies nausea, vomiting, or urinary Symptoms. On exam patient has generalized abdominal tenderness, everything else was unremarkable. CT of the abdomen reveals diverticulosis, and 1 cm nodule in the right lower lobe. Patient states she has known about this nodule and will follow up with her doctor regarding this. CBC, CMP, UA are within normal limits. Lipase and troponin are normal. Patient received Toradol and fluids and is feeling some improvement. Discussed with patient that this could be from dehydration. Patient feels okay with going home. Patient be discharged. Case discussed with Dr. Nieto. Discussed with patient return parameters. (Xin Antony) I was available for consultation in the emergency department. The history and physical exam were done by the midlevel provider. I was consulted for this patient's care. I reviewed the case with the midlevel provider and based on their presentation of the patient, I agree with the assessment, medical decision making and plan of care as documented. Chart was dictated using Clever dictation software. Attempts were made to correct any dictation errors however some typographical errors may persist. (Kaelyn Nieto) - Lab Data Lab Results 09/13/18 09/13/18 09/13/18 Range/Units 21:06 21:06 21:06 WBC 5.0 (3.8-10.6) k/uL RBC 3.97 (3.80-5.40) m/uL Hgb 12.3 (11.4-16.0) gm/dL Hct 37.0 (34.0-46.0) % MCV 93.2 (80.0-100.0) fL MCH 31.1 (25.0-35.0) pg MCHC 33.4 (31.0-37.0) g/dL RDW 12.4 (11.5-15.5) % Plt Count 282 (150-450) k/uL Neutrophils % 42 % Lymphocytes % 41 % Monocytes % 8 % Eosinophils % 5 % Basophils % 1 % Neutrophils # 2.1 (1.3-7.7) k/uL Lymphocytes # 2.1 (1.0-4.8) k/uL Monocytes # 0.4 (0-1.0) k/uL Eosinophils # 0.2 (0-0.7) k/uL Basophils # 0.0 (0-0.2) k/uL Sodium 132 L (137-145) mmol/L Potassium 4.4 (3.5-5.1) mmol/L Chloride 101 (98-107) mmol/L Carbon Dioxide 25 (22-30) mmol/L Anion Gap 6 mmol/L BUN 13 (7-17) mg/dL Creatinine 0.71 (0.52-1.04) mg/dL Est GFR (CKD-EPI)AfAm >90 (>60 ml/min/1.73 sqM) Est GFR (CKD-EPI)NonAf 86 (>60 ml/min/1.73 sqM) Glucose 95 (74-99) mg/dL Calcium 9.0 (8.4-10.2) mg/dL Total Bilirubin 0.7 (0.2-1.3) mg/dL AST 25 (14-36) U/L ALT 16 (9-52) U/L Alkaline Phosphatase 70 (38-126) U/L Troponin I <0.012 (0.000-0.034) ng/mL Total Protein 6.9 (6.3-8.2) g/dL Albumin 4.1 (3.5-5.0) g/dL Lipase 71 (23-300) U/L Urine Color Urine Appearance (Clear) Urine pH (5.0-8.0) Ur Specific [place] (1.001-1.035) Urine Protein (Negative) Urine Glucose (UA) (Negative) Urine Ketones (Negative) Urine Blood (Negative) Urine Nitrite (Negative) Urine Bilirubin (Negative) Urine Urobilinogen (<2.0) mg/dL Ur Leukocyte Esterase (Negative) Urine RBC (0-5) /hpf Urine WBC (0-5) /hpf Ur Squamous Epith Cells (0-4) /hpf Urine Mucus (None) /hpf 09/13/18 Range/Units 22:53 WBC (3.8-10.6) k/uL RBC (3.80-5.40) m/uL Hgb (11.4-16.0) gm/dL Hct (34.0-46.0) % MCV (80.0-100.0) fL MCH (25.0-35.0) pg MCHC (31.0-37.0) g/dL RDW (11.5-15.5) % Plt Count (150-450) k/uL Neutrophils % % Lymphocytes % % Monocytes % % Eosinophils % % Basophils % % Neutrophils # (1.3-7.7) k/uL Lymphocytes # (1.0-4.8) k/uL Monocytes # (0-1.0) k/uL Eosinophils # (0-0.7) k/uL Basophils # (0-0.2) k/uL Sodium (137-145) mmol/L Potassium (3.5-5.1) mmol/L Chloride (98-107) mmol/L Carbon Dioxide (22-30) mmol/L Anion Gap mmol/L BUN (7-17) mg/dL Creatinine (0.52-1.04) mg/dL Est GFR (CKD-EPI)AfAm (>60 ml/min/1.73 sqM) Est GFR (CKD-EPI)NonAf (>60 ml/min/1.73 sqM) Glucose (74-99) mg/dL Calcium (8.4-10.2) mg/dL Total Bilirubin (0.2-1.3) mg/dL AST (14-36) U/L ALT (9-52) U/L Alkaline Phosphatase (38-126) U/L Troponin I (0.000-0.034) ng/mL Total Protein (6.3-8.2) g/dL Albumin (3.5-5.0) g/dL Lipase (23-300) U/L Urine Color Colorless Urine Appearance Clear (Clear) Urine pH 7.0 (5.0-8.0) Ur Specific [place] 1.027 (1.001-1.035) Urine Protein Negative (Negative) Urine Glucose (UA) Negative (Negative) Urine Ketones Negative (Negative) Urine Blood Negative (Negative) Urine Nitrite Negative (Negative) Urine Bilirubin Negative (Negative) Urine Urobilinogen <2.0 (<2.0) mg/dL Ur Leukocyte Esterase Small H (Negative) Urine RBC 1 (0-5) /hpf Urine WBC 6 H (0-5) /hpf Ur Squamous Epith Cells 4 (0-4) /hpf Urine Mucus Rare H (None) /hpf - EKG Data EKG Comments: Sinus rhythm with first-degree AV block, ventricular rate 66, TX interval 250, QTC 442. EKG unchanged from previous in March 2018. No ST segment changes. (Xin Antony) Disposition Is patient prescribed a controlled substance at d/c from ED?: No <Xin Antony - Last Filed: 09/14/18 00:16> <Kaelyn Nieto - Last Filed: 09/15/18 01:58> Clinical Impression: Abdominal pain Disposition: HOME SELF-CARE Condition: Stable Instructions (If sedation given, give patient instructions): Abdominal Pain (ED) Additional Instructions: Please return to the Emergency Department if symptoms worsen or any other gary rns. Prescriptions: Dicyclomine [Bentyl] 20 mg PO TID #30 tablet Referrals: Johnny Putnam MD [Primary Care Provider] - 1-2 days
[2018-09-13 21:20] LABS: Basophils % (A) 1 %; Eosinophils # (A) 0.2 k/uL (0-0.7); Eosinophils % (A) 5 %; HGB 12.3 gm/dL (11.4-16.0); Lymphocytes # (A) 2.1 k/uL (1.0-4.8); Lymphocytes % (A) 41 %; MCH 31.1 pg (25.0-35.0); MCHC 33.4 g/dL (31.0-37.0); MCV 93.2 fL (80.0-100.0); Mean Platelet Volume 6.6; Monocytes # (A) 0.4 k/uL (0-1.0); Monocytes % (A) 8 %; Neutrophils # (A) 2.1 k/uL (1.3-7.7); Neutrophils % (A) 42 %; Platelet Count 282 k/uL (150-450); RBC 3.97 m/uL (3.80-5.40); RDW 12.4 % (11.5-15.5)
[2018-09-13 21:28] LABS: ALT 16 U/L (9-52); AST 25 U/L (14-36); Albumin 4.1 g/dL (3.5-5.0); Alkaline Phosphatase 70 U/L (38-126); Anion Gap 6 mmol/L; Blood Urea Nitrogen 13 mg/dL (7-17); Carbon Dioxide 25 mmol/L (22-30); Chloride 101 mmol/L (98-107); Glucose 95 mg/dL (74-99); Lipase 71 U/L (23-300); Potassium 4.4 mmol/L (3.5-5.1); Sodium 132 mmol/L (137-145); Total Bilirubin 0.7 mg/dL (0.2-1.3); Total Protein 6.9 g/dL (6.3-8.2)
[2018-09-13 21:55] VITALS: RESP 16
[2018-09-13] MEDS ORDERED: KETOROLAC 30 MG/ML 1 ML VIAL IVP STA (22:36)
--- NOTE | 2018-09-13 22:47 | CT ---
EXAM: CT Abdomen and Pelvis With Intravenous Contrast CLINICAL HISTORY: ITS.REASON CT Reason: Pain TECHNIQUE: Axial computed tomography images of the abdomen and pelvis with intravenous contrast. CTDI is 28 mGy and DLP is 1359 mGy-cm. This CT exam was performed using one or more of the following dose reduction techniques: automated exposure control, adjustment of the mA and/or kV according to patient size, and/or use of iterative reconstruction technique. COMPARISON: CT abdomen 03/26/18 FINDINGS: Lung bases: 10 mm nodule in the right lower lobe. ABDOMEN: Liver: Unremarkable. Gallbladder and bile ducts: Removed. Pancreas: Unremarkable. Spleen: Unremarkable. Adrenals: Unremarkable. Kidneys and ureters: No hydronephrosis. Stomach and bowel: No bowel obstruction. No bowel wall thickening. Colonic diverticulosis. Gastric and bowel surgery. PELVIS: Appendix: No evidence of appendicitis. Bladder: Unremarkable. Reproductive: Unremarkable. ABDOMEN and PELVIS: Intraperitoneal space: Unremarkable. Bones/joints: No acute fractures. Severe degenerative changes at L2-3. Soft tissues: Unremarkable. Vasculature: No abdominal aortic aneurysm. Lymph nodes: No enlarged lymph nodes. IMPRESSION: 1. Colonic diverticulosis. 2. 1 cm nodule in the right lower lobe, new since the prior exam. Possibly infectious or inflammatory in etiology, but recommend short-term follow-up in 3 months to ensure resolution and to rule out growth.
[2018-09-13 23:13] LABS: Appearance,Urine Clear (Clear); Bilirubin,Urine Negative (Negative); Blood,Urine Negative (Negative); Color,Urine Colorless; Glucose,Urine (UA) Negative (Negative); Ketones,Urine Negative (Negative); Leukocyte Esterase,Urine Small (Negative); Mucus,Urine Rare /hpf; Nitrite,Urine Negative (Negative); Protein,Urine Negative (Negative); RBC,Urine 1 /hpf (0-5); Specific Gravity,Urine 1.027 (1.001-1.035); Squamous Epithelial Cell,Urine 4 /hpf (0-4); Urobilinogen,Urine <2.0 mg/dL (<2.0)
[2018-09-14 00:35] VITALS: BP 151/80; PULSE 69
== END 2018-09-14 00:35 | disposition home or self-care (01) ==
LOC: EC 19:14
DX: R10.9 Unspecified abdominal pain (principal); R10.817 Generalized abdominal tenderness; K57.30 Diverticulosis of large intestine without perforation or abscess without bleeding; R91.1 Solitary pulmonary nodule; I25.119 Atherosclerotic heart disease of native coronary artery with unspecified angina pectoris; M19.90 Unspecified osteoarthritis, unspecified site; F41.0 Panic disorder [episodic paroxysmal anxiety]; F32.9 Major depressive disorder, single episode, unspecified; I10 Essential (primary) hypertension; Z79.890 Hormone replacement therapy; Z79.899 Other long term (current) drug therapy; Z88.1 Allergy status to other antibiotic agents; Z87.891 Personal history of nicotine dependence; Z95.5 Presence of coronary angioplasty implant and graft; Z96.653 Presence of artificial knee joint, bilateral; Z85.21 Personal history of malignant neoplasm of larynx; Z98.84 Bariatric surgery status
CPT/HCPCS: 36415; 93005; 80053; 83690; 84484; 85025; 81001; 74177; 99284; 96374; 96361 ×2; J1885; Q9967

== ENCOUNTER 2019-01-11 12:30 | Emergency (ER) | payer MEDICARE ==
[2019-01-11 12:36] VITALS: BP 129/68; PULSE 81; RESP 16; TEMP 98.4
--- NOTE | 2019-01-11 13:40 | ED ---
Lower Extremity Injury HPI - General Chief Complaint: Extremity Injury, Lower Stated Complaint: lt leg injury Time Seen by Provider: 01/11/19 12:39 Source: patient, RN notes reviewed Mode of arrival: wheelchair Limitations: no limitations - History of Present Illness Initial Comments: This is a 73-year-old female sent emergency Department chief complaint left leg pain. Patient states her grandson fell while carrying something down the hallway states that she fell on to her left leg. She has had a new place in the past. States it's bruise, swollen and more painful. Patient denies any head injury. She does admit that she is able to ambulate but is concerned about the throbbing pain. - Related Data Home Medications Medication Instructions Recorded Confirmed HYDROcodone/APAP 5-325MG [[place] 1 tab PO Q6HR 02/26/18 09/18/18 5-325] Levothyroxine Sodium [Synthroid] 200 mcg PO DAILY 02/26/18 09/18/18 traZODone HCL 50 mg PO HS 02/26/18 09/18/18 Previous Rx's Medication Instructions Recorded Acetaminophen Tab [Tylenol] 650 mg PO Q6HR PRN tab 03/01/18 Lisinopril [Zestril] 10 mg PO DAILY #30 tab 03/01/18 Atorvastatin [Lipitor] 40 mg PO HS #90 tab 03/10/18 Ibuprofen [Motrin] 600 mg PO Q6HR PRN #40 day 06/05/18 amLODIPine [Norvasc] 2.5 mg PO DAILY 14 Days #14 tablet 06/05/18 Dicyclomine [Bentyl] 20 mg PO TID #30 tablet 09/14/18 Allergies Allergy/AdvReac Type Severity Reaction Status Date / Time vancomycin Allergy Rash/Hives Verified 01/11/19 12:36 Review of Systems ROS Statement: Those systems with pertinent positive or pertinent negative responses have been documented in the HPI. ROS Other: All systems not noted in ROS Statement are negative. 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 History of Any Multi-Drug Resistant Organisms: MRSA Date of last positivie culture/infection: 1997 MDRO Source:: left shoulder Past Surgical History: Bariatric Surgery, Cholecystectomy, Heart Catheterization, Hysterectomy, Joint Replacement, Orthopedic Surgery Additional Past Surgical History / Comment(s): Bilateral knee replacement, left shoulder rotator cuff surgery, gastric bypass, D&C, EGD/colonoscopy, laryngeal tumor removed, Ganglion Cysts both wrists.PAIN CLINIC INJECTIONS Past Anesthesia/Blood Transfusion Reactions: No Reported Reaction Date of Last Stent Placement:: 2012 Past Psychological History: Anxiety, Depression, Panic Disorder Smoking Status: Former smoker - Past Family History Mother Family Medical History: Cancer, Congestive Heart Failure (CHF), Diabetes Mellitus, Hypertension Additional Family Medical History / Comment(s): Mother passed at 93. Father Family Medical History: Myocardial Infarction (MD) Additional Family Medical History / Comment(s): Father of a MD at the age of 39 yrs. Sister(s) Family Medical History: Cancer Brother(s) Family Medical History: Cancer, Myocardial Infarction (MD) General Exam Limitations: no limitations General appearance: alert, in no apparent distress Head exam: Present: atraumatic, normocephalic, normal inspection Eye exam: Present: normal appearance, PERRL, EOMI. Absent: scleral icterus, conjunctival injection, periorbital swelling Respiratory exam: Present: normal lung sounds bilaterally. Absent: respiratory distress, wheezes, rales, rhonchi, stridor Cardiovascular Exam: Present: regular rate, normal rhythm, normal heart sounds. Absent: systolic murmur, diastolic murmur, rubs, gallop, clicks Extremities exam: Present: other (Left leg there is some ecchymosis noted just inferior to the left knee, mild swelling, pain with range of motion, neur ovascular intact there is no symptom leg edema noted.) Skin exam: Present: warm, dry, intact, normal color. Absent: rash Course Vital Signs 01/11/19 12:31 Temperature 98.4 F Pulse Rate 81 Respiratory 16 Rate Blood Pressure 129/68 O2 Sat by Pulse 97 Oximetry Medical Decision Making - Medical Decision Making 73-year-old presented for fall x-rays are negative patient is a left knee contusion. Disposition Clinical Impression: Fall, Contusion of knee, left Disposition: HOME SELF-CARE Condition: Stable Instructions (If sedation given, give patient instructions): Knee Pain (ED) Additional Instructions: Please return to the Emergency Department if symptoms worsen or any other concerns. Is patient prescribed a controlled substance at d/c from ED?: No Referrals: Joey Valdez MD [Primary Care Provider] - 1-2 days Time of Disposition: 14:25
--- NOTE | 2019-01-11 14:14 | XR ---
EXAMINATION TYPE: XR knee complete LT DATE OF EXAM: 01/11/2019 COMPARISON: NONE HISTORY: Pain and bruising TECHNIQUE: 3 views FINDINGS: I see no fracture nor dislocation. There is left knee prosthesis with components in anatomi c position. There is no sign of joint effusion. IMPRESSION: No acute abnormality of the left knee.
== END 2019-01-11 14:39 | disposition home or self-care (01) ==
LOC: EC 12:30
DX: S80.02XA Contusion of left knee, initial encounter (principal); F41.9 Anxiety disorder, unspecified; F32.9 Major depressive disorder, single episode, unspecified; M19.90 Unspecified osteoarthritis, unspecified site; G89.29 Other chronic pain; M54.9 Dorsalgia, unspecified; I10 Essential (primary) hypertension; I25.10 Atherosclerotic heart disease of native coronary artery without angina pectoris; I48.91 Unspecified atrial fibrillation; Z79.891 Long term (current) use of opiate analgesic; Z79.890 Hormone replacement therapy; Z88.1 Allergy status to other antibiotic agents; Z95.5 Presence of coronary angioplasty implant and graft; Z96.653 Presence of artificial knee joint, bilateral; Z86.14 Personal history of Methicillin resistant Staphylococcus aureus infection; Z87.820 Personal history of traumatic brain injury; Z87.891 Personal history of nicotine dependence; Z85.21 Personal history of malignant neoplasm of larynx; W50.0XXA Accidental hit or strike by another person, initial encounter; Y92.009 Unspecified place in unspecified non-institutional (private) residence as the place of occurrence of the external cause
CPT/HCPCS: 99283

== ENCOUNTER 2019-01-12 15:45 | Emergency (ER) | payer MEDICARE ==
[2019-01-12] MEDS ORDERED: SODIUM CHLORIDE 0.9% 1,000 ML IV STA (16:09)
--- NOTE | 2019-01-12 16:12 | ED ---
Abdominal Pain HPI - General Chief Complaint: Abdominal Pain Stated Complaint: Stomach pain Time Seen by Provider: 01/12/19 15:55 Source: patient, RN notes reviewed, old records reviewed Mode of arrival: wheelchair Limitations: no limitations - History of Present Illness Initial Comments: This is a 73-year-old female the ER today. She presents today for evaluation regards to abdominal pain, severe diffuse and generalized abdominal pain. History of multiple abdominal surgeries, gastric bypass surgery 25 years ago multiple complications gallbladder surgery appendix surgery. No current surgeon. Patient states that she had severe pain on and off throughout the day worsening/for last 4 hours, unable to keep anything down for a bowel movement this morning which was normal. No fevers MD Complaint: abdominal pain -: days(s) Location: diffuse, periumbilical Radiation: epigastric Migration to: epigastric Severity: moderate Severity scale (1-10): 5 Quality: stabbing, aching Consistency: constant Improves With: nothing Worsens With: nothing Associated Symptoms: nausea, vomiting - Related Data Home Medications Medication Instructions Recorded Confirmed Atorvastatin [Lipitor] 10 mg PO HS 01/12/19 01/12/19 Clarithromycin [Biaxin] 500 mg PO Q12HR 01/12/19 01/12/19 HYDROcodone/APAP 7.5-325MG [[place] 1 tab PO BID 01/12/19 01/12/19 7.5-325] Levothyroxine Sodium [Synthroid] 200 mcg PO DAILY 01/12/19 01/12/19 Lisinopril 20 mg PO DAILY 01/12/19 01/12/19 Pantoprazole Sodium [Protonix] 40 mg PO DAILY 01/12/19 01/12/19 Sucralfate [Carafate] 1 gm PO ACHS 01/12/19 01/12/19 traZODone HCL [Desyrel] 100 mg PO HS 01/12/19 01/12/19 Allergies Allergy/AdvReac Type Severity Reaction Status Date / Time vancomycin Allergy Rash/Hives Verified 01/12/19 16:11 Review of Systems ROS Statement: Those systems with pertinent positive or pertinent negative responses have been documented in the HPI. ROS Other: All systems not noted in ROS Statement are negative. 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 History of Any Multi-Drug Resistant Organisms: MRSA Date of last positivie culture/infection: 1997 MDRO Source:: left shoulder Past Surgical History: Bariatric Surgery, Cholecystectomy, Heart Catheterization, Hysterectomy, Joint Replacement, Orthopedic Surgery Additional Past Surgical History / Comment(s): Bilateral knee replacement, left shoulder rotator cuff surgery, gastric bypass, D&C, EGD/colonoscopy, laryngeal tumor removed, Ganglion Cysts both wrists.PAIN CLINIC INJECTIONS Past Anesthesia/Blood Transfusion Reactions: No Reported Reaction Date of Last Stent Placement:: 2012 Past Psychological History: Anxiety, Depression, Panic Disorder Smoking Status: Former smoker Past Alcohol Use History: None Reported Past Drug Use History: None Reported - Past Family History Mother Family Medical History: Cancer, Congestive Heart Failure (CHF), Diabetes Mellitus, Hypertension Additional Family Medical History / Comment(s): Mother passed at 93. Father Family Medical History: Myocardial Infarction ([place]) Additional Family Medical History / Comment(s): Father of a AR at the age of 39 yrs. Sister(s) Family Medical History: Cancer Brother(s) Family Medical History: Cancer, Myocardial Infarction ([place]) General Exam Limitations: no limitations General appearance: alert, in no apparent distress, anxious Head exam: Present: atraumatic, normocephalic, normal inspection Eye exam: Present: normal appearance, EOMI. Absent: scleral icterus, conjunctival injection, periorbital swelling ENT exam: Present: normal exam, mucous membranes moist Neck exam: Present: normal inspection. Absent: tenderness, meningismus, lymphadenopathy Respiratory exam: Present: normal lung sounds bilaterally. Absent: respiratory distress, wheezes, rales, rhonchi, stridor Cardiovascular Exam: Present: regular rate, normal rhythm, normal heart sounds. Absent: systolic murmur, diastolic murmur, rubs, gallop, clicks GI/Abdominal exam: Present: soft, normal bowel sounds. Absent: distended, tenderness, guarding, rebound, rigid Extremities exam: Present: normal inspection, full ROM, normal capillary refill. Absent: tenderness, pedal edema, joint swelling, calf tenderness Back exam: Present: normal inspection Neurological exam: Present: alert, oriented X3, CN II-XII intact Psychiatric exam: Present: normal affect, normal mood Skin exam: Present: warm, dry, intact, normal color. Absent: rash Course Vital Signs 01/12/19 01/12/19 01/12/19 15:50 16:41 18:41 Temperature 97.4 F L Pulse Rate 97 Respiratory 24 Rate Blood Pressure 205/106 196/96 158/98 O2 Sat by Pulse 99 Oximetry - Reevaluation(s) Reevaluation #1: 01/12/19 18:44 medical record is reviewed Reevaluation #2: 01/12/19 18:44 patient has adequate pain control Reevaluation #3: 01/12/19 18:44 patient able to tolerate PO and can be discharged Medical Decision Making - Medical Decision Making 73 female the ER for evaluation presents today for evaluation of bowel pain non specific CT labwork is negative. Patient has significant pain control can be discharged home - Lab Data Result diagrams: 01/12/19 16:15 01/12/19 16:15 Lab Results 01/12/19 01/12/19 01/12/19 Range/Units 16:15 16:15 16:15 WBC 8.5 (3.8-10.6) k/uL RBC 4.24 (3.80-5.40) m/uL Hgb 11.9 (11.4-16.0) gm/dL Hct 36.3 (34.0-46.0) % MCV 85.6 (80.0-100.0) fL MCH 28.1 (25.0-35.0) pg MCHC 32.8 (31.0-37.0) g/dL RDW 12.7 (11.5-15.5) % Plt Count 370 (150-450) k/uL Neutrophils % 55 % Lymphocytes % 31 % Monocytes % 7 % Eosinophils % 2 % Basophils % 1 % Neutrophils # 4.7 (1.3-7.7) k/uL Lymphocytes # 2.7 (1.0-4.8) k/uL Monocytes # 0.6 (0-1.0) k/uL Eosinophils # 0.2 (0-0.7) k/uL Basophils # 0.1 (0-0.2) k/uL Sodium 138 (137-145) mmol/L Potassium 4.4 (3.5-5.1) mmol/L Chloride 107 (98-107) mmol/L Carbon Dioxide 20 L (22-30) mmol/L Anion Gap 11 mmol/L BUN 11 (7-17) mg/dL Creatinine 0.61 (0.52-1.04) mg/dL Est GFR (CKD-EPI)AfAm >90 (>60 ml/min/1.73 sqM) Est GFR (CKD-EPI)NonAf >90 (>60 ml/min/1.73 sqM) Glucose 114 H (74-99) mg/dL Plasma Lactic Acid Anthony 1.8 (0.7-2.0) mmol/L Calcium 9.4 (8.4-10.2) mg/dL Phosphorus 3.9 (2.5-4.5) mg/dL Magnesium 2.0 (1.6-2.3) mg/dL Total Bilirubin 0.5 (0.2-1.3) mg/dL AST 33 (14-36) U/L ALT 20 (9-52) U/L Alkaline Phosphatase 130 H (38-126) U/L Creatine Kinase 125 (30-135) U/L Total Protein 7.4 (6.3-8.2) g/dL Albumin 4.1 (3.5-5.0) g/dL Amylase 32 (30-110) U/L Lipase 59 (23-300) U/L Urine Color Urine Appearance (Clear) Urine pH (5.0-8.0) Ur Specific [place] (1.001-1.035) Urine Protein (Negative) Urine Glucose (UA) (Negative) Urine Ketones (Negative) Urine Blood (Negative) Urine Nitrite (Negative) Urine Bilirubin (Negative) Urine Urobilinogen (<2.0) mg/dL Ur Leukocyte Esterase (Negative) 01/12/19 Range/Units 17:00 WBC (3.8-10.6) k/uL RBC (3.80-5.40) m/uL Hgb (11.4-16.0) gm/dL Hct (34.0-46.0) % MCV (80.0-100.0) fL MCH (25.0-35.0) pg MCHC (31.0-37.0) g/dL RDW (11.5-15.5) % Plt Count (150-450) k/uL Neutrophils % % Lymphocytes % % Monocytes % % Eosinophils % % Basophils % % Neutrophils # (1.3-7.7) k/uL Lymphocytes # (1.0-4.8) k/uL Monocytes # (0-1.0) k/uL Eosinophils # (0-0.7) k/uL Basophils # (0-0.2) k/uL Sodium (137-145) mmol/L Potassium (3.5-5.1) mmol/L Chloride (98-107) mmol/L Carbon Dioxide (22-30) mmol/L Anion Gap mmol/L BUN (7-17) mg/dL Creatinine (0.52-1.04) mg/dL Est GFR (CKD-EPI)AfAm (>60 ml/min/1.73 sqM) Est GFR (CKD-EPI)NonAf (>60 ml/min/1.73 sqM) Glucose (74-99) mg/dL Plasma Lactic Acid Anthony (0.7-2.0) mmol/L Calcium (8.4-10.2) mg/dL Phosphorus (2.5-4.5) mg/dL Magnesium (1.6-2.3) mg/dL Total Bilirubin (0.2-1.3) mg/dL AST (14-36) U/L ALT (9-52) U/L Alkaline Phosphatase (38-126) U/L Creatine Kinase (30-135) U/L Total Protein (6.3-8.2) g/dL Albumin (3.5-5.0) g/dL Amylase (30-110) U/L Lipase (23-300) U/L Urine Color Light Yellow Urine Appearance Clear (Clear) Urine pH 7.5 (5.0-8.0) Ur Specific [place] 1.006 (1.001-1.035) Urine Protein Negative (Negative) Urine Glucose (UA) Negative (Negative) Urine Ketones Negative (Negative) Urine Blood Negative (Negative) Urine Nitrite Negative (Negative) Urine Bilirubin Negative (Negative) Urine Urobilinogen <2.0 (<2.0) mg/dL Ur Leukocyte Esterase Negative (Negative) - Radiology Data Radiology results: report reviewed (CT abdomen pelvis is negative for acute disease), image reviewed Disposition Clinical Impression: Epigastric abdominal pain, Abdominal pain Disposition: HOME SELF-CARE Condition: Good Instructions (If sedation given, give patient instructions): Abdominal Pain (ED) Is patient prescribed a controlled substance at d/c from ED?: No Referrals: Joey Valdez MD [Primary Care Provider] - 1-2 days
[2019-01-12] MEDS ORDERED: ONDANSETRON 4 MG/2 ML VIAL IVP STA (16:34)
[2019-01-12] MEDS ORDERED: MORPHINE SULFATE 4 MG/ML SYRINGE IVP STA (16:34)
--- NOTE | 2019-01-12 17:01 | CT ---
EXAMINATION TYPE: CT abdomen pelvis wo con DATE OF EXAM: 01/12/2019 COMPARISON: 09/13/2018 HISTORY: Severe abdominal pain CT DLP: 927.7 mGycm Automated exposure control for dose reduction was used. TECHNIQUE: Helical acquisition of images was performed from the lung bases through the pelvis. FINDINGS: Lung bases are clear of infiltrate. There is no pleural effusion. Heart size is normal. There is no p ericardial effusion. There are clips from bariatric gastric surgery. Liver has normal size and contou r. Spleen appears normal. Bile ducts are not dilated. There are clips from cholecystectomy. Pancreas appears normal. There is no adrenal mass. Kidneys have normal size. There is no hydronephrosis. Ureters are not dilat ed. There is no retroperitoneal adenopathy. Abdominal aorta is atheromatous. Bladder distends smoothl y. There is no inguinal hernia. There is hysterectomy. There is no free fluid in the pelvis. There is mild thoracolumbar dextroscoliosis. There are numerous diverticula in the sigmoid colon. There is no sign of diverticulitis. There is no mesenteric edema. There is no ascites or free air. There is no evidence of bowel obstruct ion. There is moderate spondylotic changes in the lumbar spine. There is degenerative first-degree L4 -5 spondylolisthesis. There is no compression fracture. The bony pelvis is intact. There is L2-3 disc space narrowing with sclerosis and vacuum disc. There is L4-5 moderate spinal stenosis. There is als o spinal stenosis at L3-4. Appendix not seen. There is no sign of thickened appendix. IMPRESSION: NO SIGN OF ACUTE ABDOMEN AND PELVIS. COLONIC DIVERTICULOSIS WITHOUT DIVERTICULITIS. NO RENAL OBSTRUCT ION. No adverse change of the abdomen pelvis compared to old exam. Multilevel moderate bony spinal stenosis. Right lower lobe nodular density region on previous exam is not included on the images on today's exa m.
[2019-01-12 17:19] LABS: Appearance,Urine Clear (Clear); Bilirubin,Urine Negative (Negative); Blood,Urine Negative (Negative); Color,Urine Light Yellow; Glucose,Urine (UA) Negative (Negative); Ketones,Urine Negative (Negative); Leukocyte Esterase,Urine Negative (Negative); Nitrite,Urine Negative (Negative); PH, Urine 7.5 (5.0-8.0); Protein,Urine Negative (Negative); Specific Gravity,Urine 1.006 (1.001-1.035); Urobilinogen,Urine <2.0 mg/dL (<2.0)
[2019-01-12 18:18] LABS: Basophils # (A) 0.1 k/uL (0-0.2); Basophils % (A) 1 %; Eosinophils # (A) 0.2 k/uL (0-0.7); Eosinophils % (A) 2 %; HCT 36.3 % (34.0-46.0); HGB 11.9 gm/dL (11.4-16.0); Lymphocytes # (A) 2.7 k/uL (1.0-4.8); Lymphocytes % (A) 31 %; MCH 28.1 pg (25.0-35.0); MCHC 32.8 g/dL (31.0-37.0); MCV 85.6 fL (80.0-100.0); Mean Platelet Volume 7.7; Monocytes # (A) 0.6 k/uL (0-1.0); Monocytes % (A) 7 %; Neutrophils # (A) 4.7 k/uL (1.3-7.7); Neutrophils % (A) 55 %; Platelet Count 370 k/uL (150-450); RBC 4.24 m/uL (3.80-5.40); RDW 12.7 % (11.5-15.5); WBC 8.5 k/uL (3.8-10.6)
[2019-01-12] MEDS ORDERED: HYDROmorphone 0.5 MG/0.5 ML SYRINGE IVP STA (18:19)
[2019-01-12] MEDS ORDERED: DICYCLOMINE 10 MG/ML 2 ML AMP IM STA (18:19)
[2019-01-12 18:32] LABS: ALT 20 U/L (9-52); AST 33 U/L (14-36); African American GFR (CKD) >90 (>60 ml/min/1.73 sqM); Albumin 4.1 g/dL (3.5-5.0); Alkaline Phosphatase 130 U/L (38-126); Amylase 32 U/L (30-110); Anion Gap 11 mmol/L; Blood Urea Nitrogen 11 mg/dL (7-17); Calcium 9.4 mg/dL (8.4-10.2); Carbon Dioxide 20 mmol/L (22-30); Chloride 107 mmol/L (98-107); Creatine Kinase 125 U/L (30-135); Glucose 114 mg/dL (74-99); Phosphorus 3.9 mg/dL (2.5-4.5); Potassium 4.4 mmol/L (3.5-5.1); Sodium 138 mmol/L (137-145); Total Bilirubin 0.5 mg/dL (0.2-1.3); Total Protein 7.4 g/dL (6.3-8.2)
[2019-01-12 20:01] VITALS: BP 158/90; PULSE 65; RESP 18; TEMP 97.9
== END 2019-01-12 20:01 | disposition home or self-care (01) ==
LOC: EC 15:45
DX: R10.84 Generalized abdominal pain (principal); R11.2 Nausea with vomiting, unspecified; I25.119 Atherosclerotic heart disease of native coronary artery with unspecified angina pectoris; I10 Essential (primary) hypertension; K21.9 Gastro-esophageal reflux disease without esophagitis; M19.90 Unspecified osteoarthritis, unspecified site; F32.9 Major depressive disorder, single episode, unspecified; F41.9 Anxiety disorder, unspecified; Z87.891 Personal history of nicotine dependence; Z88.1 Allergy status to other antibiotic agents; Z79.890 Hormone replacement therapy; Z79.891 Long term (current) use of opiate analgesic; Z79.899 Other long term (current) drug therapy; Z85.21 Personal history of malignant neoplasm of larynx; Z87.11 Personal history of peptic ulcer disease; Z86.14 Personal history of Methicillin resistant Staphylococcus aureus infection; Z90.49 Acquired absence of other specified parts of digestive tract; Z98.84 Bariatric surgery status; Z96.653 Presence of artificial knee joint, bilateral; Z98.890 Other specified postprocedural states
CPT/HCPCS: 36415; 80053; 82150; 82550; 83605; 83690; 83735; 84100; 84484; 85025; 81003; 74176; 99284; 96374; 96375 ×2; 96361; 96372; J2270; J0500; J2405; J1170

== ENCOUNTER 2019-03-03 11:12 | Emergency (ER) | payer MEDICARE ==
[2019-03-03 11:34] VITALS: RESP 18; TEMP 98.3
[2019-03-03] MEDS ORDERED: LISINOPRIL 20 MG TAB PO STA (11:50)
[2019-03-03] MEDS ORDERED: HYDROcodone/APAP 7.5-325MG 1 EACH TAB PO ONE (11:50)
[2019-03-03] MEDS ORDERED: MORPHINE SULFATE 4 MG/ML SYRINGE IM STA (11:50)
--- NOTE | 2019-03-03 11:53 | ED ---
General Adult HPI - General Chief complaint: Headache Stated complaint: headache Time Seen by Provider: 03/03/19 11:37 Source: patient, RN notes reviewed, old records reviewed Mode of arrival: ambulatory Limitations: no limitations - History of Present Illness Initial comments: 73-year-old female presents for evaluation of headache. Patient has had a p ersistent headache over the past 7 days. She had a slip and fall 1 week ago with frontal head trauma on the concrete. She didn't seek medical attention at that time and head CT scan of the brain which was reported as normal by the patient. She's had a constant headache since that time. She's had some nausea and several episodes of vomiting. She's felt somewhat lightheaded. She denies any focal numbness or weakness. There was no loss consciousness with the fall. She is not on anticoagulation. Denies any constitutional symptoms, denies fever or chills. She has been out of her blood pressure medication for approximately 7 days. - Related Data Home Medications Medication Instructions Recorded Confirmed Atorvastatin [Lipitor] 10 mg PO HS 01/12/19 01/12/19 Clarithromycin [Biaxin] 500 mg PO Q12HR 01/12/19 01/12/19 HYDROcodone/APAP 7.5-325MG [[place] 1 tab PO BID 01/12/19 01/12/19 7.5-325] Levothyroxine Sodium [Synthroid] 200 mcg PO DAILY 01/12/19 01/12/19 Lisinopril 20 mg PO DAILY 01/12/19 01/12/19 Pantoprazole Sodium [Protonix] 40 mg PO DAILY 01/12/19 01/12/19 Sucralfate [Carafate] 1 gm PO ACHS 01/12/19 01/12/19 traZODone HCL [Desyrel] 100 mg PO HS 01/12/19 01/12/19 Previous Rx's Medication Instructions Recorded Lisinopril [Prinivil] 20 mg PO DAILY #30 tablet 03/03/19 Allergies Allergy/AdvReac Type Severity Reaction Status Date / Time vancomycin Allergy Rash/Hives Verified 03/03/19 11:29 Review of Systems ROS Statement: Those systems with pertinent positive or pertinent negative responses have been documented in the HPI. ROS Other: All systems not noted in ROS Statement are negative. 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 History of Any Multi-Drug Resistant Organisms: MRSA Date of last positivie culture/infection: 1997 MDRO Source:: left shoulder Past Surgical History: Bariatric Surgery, Cholecystectomy, Heart Catheterization, Hysterectomy, Joint Replacement, Orthopedic Surgery Additional Past Surgical History / Comment(s): Bilateral knee replacement, left shoulder rotator cuff surgery, gastric bypass, D&C, EGD/colonoscopy, laryngeal tumor removed, Ganglion Cysts both wrists.PAIN CLINIC INJECTIONS Past Anesthesia/Blood Transfusion Reactions: No Reported Reaction Date of Last Stent Placement:: 2012 Past Psychological History: Anxiety, Depression, Panic Disorder Smoking Status: Former smoker Past Alcohol Use History: None Reported Past Drug Use History: None Reported - Past Family History Mother Family Medical History: Cancer, Congestive Heart Failure (CHF), Diabetes Mellitus, Hypertension Additional Family Medical History / Comment(s): Mother passed at 93. Father Family Medical History: Myocardial Infarction ([place]) Additional Family Medical History / Comment(s): Father of a [place] at the age of 39 yrs. Sister(s) Family Medical History: Cancer Brother(s) Family Medical History: Cancer, Myocardial Infarction ([place]) General Exam Limitations: no limitations General appearance: alert, in no apparent distress Head exam: Present: atraumatic, normocephalic, normal inspection Eye exam: Present: normal appearance, PERRL, EOMI. Absent: scleral icterus, conjunctival injection, nystagmus, periorbital swelling, periorbital tenderness ENT exam: Present: normal exam Neck exam: Present: normal inspection. Absent: tenderness, meningismus Respiratory exam: Present: normal lung sounds bilaterally. Absent: respiratory distress, wheezes Cardiovascular Exam: Present: regular rate, normal rhythm GI/Abdominal exam: Present: soft. Absent: distended, tenderness Extremities exam: Present: normal inspection, normal capillary refill. Absent: pedal edema Neurological exam: Present: alert, oriented X3, CN II-XII intact, normal gait, other (Normal neuro exam, no focal findings, negative Romberg, normal [id number] bilaterally, 5 out of 5 strength in all extremities). Absent: motor sensory deficit Psychiatric exam: Present: normal affect, normal mood Skin exam: Present: warm, dry, intact. Absent: cyanosis, diaphoretic Course Vital Signs 03/03/19 03/03/19 11:29 12:53 Temperature 98.3 F Pulse Rate 73 66 Respiratory 18 18 Rate Blood Pressure 210/97 178/78 O2 Sat by Pulse 98 99 Oximetry - Reevaluation(s) Reevaluation #1: 03/03/19 13:19 Patient reevaluated she is resting comfortably, states her headache is nearly completely resolved. Medical Decision Making - Medical Decision Making 73-year-old female presenting with headache status post fall one week ago. There is concern for delayed intracranial hemorrhage, CT was performed this was negative for intra-abdominal hemorrhage or mass effect. Patient has been off her antihypertensive medications for approximately one week. She was given 20 mg of lisinopril emergency department with down trending blood pressure. Her headache is nearly completely resolved with Toradol and [place]. She is not driving in her son to taking her home. She will be prescribed a refill of her lisinopril as she has been off for one week. She will follow-up with her primary care physician. Disposition Clinical Impression: Headache, Concussion, Hypertension Disposition: HOME SELF-CARE Condition: Good Instructions (If sedation given, give patient instructions): Acute Headache (ED), Concussion (ED) Prescriptions: Lisinopril [Prinivil] 20 mg PO DAILY #30 tablet Is patient prescribed a controlled substance at d/c from ED?: No Referrals: Joey Valdez MD [Primary Care Provider] - 1-2 days Time of Disposition: 13:22
--- NOTE | 2019-03-03 12:05 | CT ---
EXAMINATION TYPE: CT brain wo con DATE OF EXAM: 03/03/2019 COMPARISON: 06/05/2018 HISTORY: 73-year-old female with headache and trauma TECHNIQUE: Examination was done in axial plane without intravenous contrast. Coronal and sagittal r econstructions performed. CT DLP: 1106.4 mGycm Automated exposure control for dose reduction was used. FINDINGS: There is no evidence of acute intracranial hemorrhage, acute ischemic changes, mass, mass-effect, or extra-axial fluid collection. There is no effacement of cerebral sulci or basal subarachnoid cister ns. There is no hydrocephalus. There is no midline shift. Puentes-white matter distinction is preserv ed. Moderate patchy white matter hypodensities in both cerebral hemispheres. Benign basal chronic calcifi cations. Partially empty sella incidentally noted. Paranasal sinuses and mastoid air cells well pneumatized. Orbits and globes are intact. IMPRESSION: Moderate patchy changes of chronic small vessel ischemic disease. No acute intracranial abnormality s een.
[2019-03-03] MEDS ORDERED: KETOROLAC 30 MG/ML 1 ML VIAL IM STA (12:39)
[2019-03-03 13:16] VITALS: BP 178/78; PULSE 66
== END 2019-03-03 13:35 | disposition home or self-care (01) ==
LOC: EC 11:12
DX: S06.0X0A Concussion without loss of consciousness, initial encounter (principal); I10 Essential (primary) hypertension; I48.91 Unspecified atrial fibrillation; I25.10 Atherosclerotic heart disease of native coronary artery without angina pectoris; K21.9 Gastro-esophageal reflux disease without esophagitis; M19.90 Unspecified osteoarthritis, unspecified site; F41.9 Anxiety disorder, unspecified; F32.9 Major depressive disorder, single episode, unspecified; Z85.21 Personal history of malignant neoplasm of larynx; Z87.820 Personal history of traumatic brain injury; Z86.14 Personal history of Methicillin resistant Staphylococcus aureus infection; Z95.818 Presence of other cardiac implants and grafts; Z96.653 Presence of artificial knee joint, bilateral; Z87.891 Personal history of nicotine dependence; Z79.891 Long term (current) use of opiate analgesic; Z79.890 Hormone replacement therapy; Z79.899 Other long term (current) drug therapy; Z88.1 Allergy status to other antibiotic agents; W01.0XXA Fall on same level from slipping, tripping and stumbling without subsequent striking against object, initial encounter
CPT/HCPCS: 70450; 99284; 96372 ×2; J2270; J1885

== ENCOUNTER 2019-08-29 19:35 | Emergency (ER) | payer MEDICARE ==
[2019-08-29] MEDS ORDERED: ONDANSETRON 4 MG/2 ML VIAL IVP STA (20:39)
[2019-08-29] MEDS ORDERED: SODIUM CHLORIDE 0.9% 1,000 ML IV STA (20:39)
--- NOTE | 2019-08-29 20:41 | ED ---
General Adult HPI - General Chief complaint: Dizziness Stated complaint: Dizziness Time Seen by Provider: 08/29/19 20:26 Source: patient Mode of arrival: ambulatory Limitations: no limitations - History of Present Illness Initial comments: Dictation was produced using [employer] dictation software. please excuse any grammatical, word or spelling errors. This patient was cared for during a federal and state declared state of emergency secondary to Covid 19 Chief Complaint: 73-year-old female presents with dizziness. History of Present Illness: Patient 73-year-old female she has past medical history of benign positional vertigo. She does have a prescription for Antivert that was prescribed during April of this year. Patient states over the last 24-48 hours she is been feeling dizzy. She states it's worse when she gets up from a supine position. Denies sensation of the room spinning. She does feel lightheaded. No nausea vomiting. Denies any neurologic deficits. No numbness and paresthesias to the arms or legs. Patient is still able to ambulate. The ROS documented in this emergency department record has been reviewed and confirmed by me. Those systems with pertinent positive or negative responses have been documented in the HPI. All other systems are other negative and/or noncontributory. PHYSICAL EXAM: General Impression: Alert and oriented x3, not in acute distress HEENT: Normocephalic atraumatic, extra-ocular movements intact, pupils equal and reactive to light bilaterally, mucous membranes moist. Cardiovascular: Heart regular rate and rhythm Chest: Able to complete full sentences, no retractions, no tachypnea Abdomen: abdomen soft, non-tender, non-distended, no organomegaly Musculoskeletal: Pulses present and equal in all extremities, no peripheral edema Motor: no focal deficits noted Neurological: CN II-XII grossly intact, no focal motor or sensory deficits noted, nystagmus with fast beat phase to the left with left gaze, nystagmus is fatigable, no nystagmus with right gaze. Patient denies any elicitation of symptoms with lying flat however does report increased symptoms going from s upine to sitting up Skin: Intact with no visualized rashes Psych: Normal affect and mood ED course: 73-year-old female presents with dizziness all signs upon arrival are within acceptable limits.Patient complains of lightheadedness. Her HPI is very vague however is general nonfocal. Seems that she expresses lightheadedness with positional changes. She has no other associated symptoms. She denies any chest pain shortness of breath. She does not have any focal neurologic deficits to suggest vertebrobasilar insufficiency. She is well-appearing at bedside. Laboratory evaluation obtained. CBC, metabolic panel is unremarkable. Urinalysis shows 9 white blood cells however likely contaminated with 5 squamous epithelial cells per she denies any urinary symptoms. Patient given intravenous fluids and Zofran. Chart review was performed. She has history of left bundle branch block which appears. On today's EKG. Should he stress tests performed 2 years ago that was unremarkable. Patient reevaluated bedside with stable medical condition. At this point patient appears stable for discharge. Patient given Zofran starter pack, refill for Antivert. She is advised to follow-up with a primary care physician upon discharge. EKG interpretation: Ventricular rate 63, sinus rhythm,. Interval to 44, QRS 154, QTC 544. No NH prolongation, no QTC prolongation, no ST or T-wave changes noted. EKG compared to 03/08/2018 showing no changes. Overall, this EKG is unremarkable - Related Data Home Medications Medication Instructions Recorded Confirmed Atorvastatin [Lipitor] 10 mg PO HS 01/12/19 01/12/19 Clarithromycin [Biaxin] 500 mg PO Q12HR 01/12/19 01/12/19 HYDROcodone/APAP 7.5-325MG [[place] 1 tab PO BID 01/12/19 01/12/19 7.5-325] Levothyroxine Sodium [Synthroid] 200 mcg PO DAILY 01/12/19 01/12/19 Lisinopril 20 mg PO DAILY 01/12/19 01/12/19 Pantoprazole Sodium [Protonix] 40 mg PO DAILY 01/12/19 01/12/19 Sucralfate [Carafate] 1 gm PO ACHS 01/12/19 01/12/19 traZODone HCL [Desyrel] 100 mg PO HS 01/12/19 01/12/19 Previous Rx's Medication Instructions Recorded Lisinopril [Prinivil] 20 mg PO DAILY #30 tablet 03/03/19 Meclizine [Antivert] 25 mg PO TID PRN #15 tab 08/29/19 Allergies Allergy/AdvReac Type Severity Reaction Status Date / Time vancomycin Allergy Rash/Hives Verified 08/29/19 19:45 Review of Systems ROS Statement: Those systems with pertinent positive or pertinent negative responses have been documented in the HPI. ROS Other: All systems not noted in ROS Statement are negative. 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 History of Any Multi-Drug Resistant Organisms: MRSA Date of last positivie culture/infection: 1997 MDRO Source:: left shoulder Past Surgical History: Bariatric Surgery, Cholecystectomy, Heart Catheterization, Hysterectomy, Joint Replacement, Orthopedic Surgery Additional Past Surgical History / Comment(s): Bilateral knee replacement, left shoulder rotator cuff surgery, gastric bypass, D&C, EGD/colonoscopy, laryngeal tumor removed, Ganglion Cysts both wrists.PAIN CLINIC INJECTIONS Past Anesthesia/Blood Transfusion Reactions: No Reported Reaction Date of Last Stent Placement:: 2012 Past Psychological History: Anxiety, Depression, Panic Disorder Smoking Status: Former smoker Past Alcohol Use History: None Reported Past Drug Use History: None Reported - Past Family History Mother Family Medical History: Cancer, Congestive Heart Failure (CHF), Diabetes Mellitus, Hypertension Additional Family Medical History / Comment(s): Mother passed at 93. Father Family Medical History: Myocardial Infarction ([place]) Additional Family Medical History / Comment(s): Father of a [place] at the age of 39 yrs. Sister(s) Family Medical History: Cancer Brother(s) Family Medical History: Cancer, Myocardial Infarction ([place]) General Exam Limitations: no limitations Course Vital Signs 08/29/19 19:43 Temperature 97.7 F Pulse Rate 68 Respiratory 20 Rate Blood Pressure 105/63 O2 Sat by Pulse 100 Oximetry Medical Decision Making - Lab Data Result diagrams: 08/29/19 21:00 08/29/19 21:00 Lab Results 08/29/19 08/29/19 08/29/19 Range/Units 21:00 21:00 21:00 WBC 7.4 (3.8-10.6) k/uL RBC 4.08 (3.80-5.40) m/uL Hgb 11.5 (11.4-16.0) gm/dL Hct 36.1 (34.0-46.0) % MCV 88.7 (80.0-100.0) fL MCH 28.3 (25.0-35.0) pg MCHC 31.9 (31.0-37.0) g/dL RDW 14.8 (11.5-15.5) % Plt Count 309 (150-450) k/uL Neutrophils % 30 % Lymphocytes % 51 % Monocytes % 8 % Eosinophils % 6 % Basophils % 1 % Neutrophils # 2.2 (1.3-7.7) k/uL Lymphocytes # 3.8 (1.0-4.8) k/uL Monocytes # 0.6 (0-1.0) k/uL Eosinophils # 0.4 (0-0.7) k/uL Basophils # 0.1 (0-0.2) k/uL Hypochromasia Slight Sodium 134 L (137-145) mmol/L Potassium 3.7 (3.5-5.1) mmol/L Chloride 105 (98-107) mmol/L Carbon Dioxide 21 L (22-30) mmol/L Anion Gap 8 mmol/L BUN 16 (7-17) mg/dL Creatinine 1.04 (0.52-1.04) mg/dL Est GFR (CKD-EPI)AfAm 62 (>60 ml/min/1.73 sqM) Est GFR (CKD-EPI)NonAf 54 (>60 ml/min/1.73 sqM) Glucose 75 (74-99) mg/dL Calcium 8.4 (8.4-10.2) mg/dL Magnesium 2.0 (1.6-2.3) mg/dL Total Bilirubin 0.2 (0.2-1.3) mg/dL AST 28 (14-36) U/L ALT 15 (4-34) U/L Alkaline Phosphatase 77 (38-126) U/L Total Protein 6.4 (6.3-8.2) g/dL Albumin 3.6 (3.5-5.0) g/dL Urine Color Yellow Urine Appearance Cloudy H (Clear) Urine pH 5.5 (5.0-8.0) Ur Specific [place] 1.027 (1.001-1.035) Urine Protein Trace H (Negative) Urine Glucose (UA) Negative (Negative) Urine Ketones Trace H (Negative) Urine Blood Negative (Negative) Urine Nitrite Negative (Negative) Urine Bilirubin Negative (Negative) Urine Urobilinogen 4.0 (<2.0) mg/dL Ur Leukocyte Esterase Moderate H (Negative) Urine RBC 4 (0-5) /hpf Urine WBC 9 H (0-5) /hpf Ur Squamous Epith Cells 5 H (0-4) /hpf Hyaline Casts 57 H (0-2) /lpf Urine Mucus Moderate H (None) /hpf Disposition Clinical Impression: Dizziness Disposition: HOME SELF-CARE Condition: Good Instructions (If sedation given, give patient instructions): Dizziness (ED) Prescriptions: Meclizine [Antivert] 25 mg PO TID PRN #15 tab PRN Reason: dizziness Is patient prescribed a controlled substance at d/c from ED?: No Referrals: Joey Valdez MD [Primary Care Provider] - 1-2 days Time of Disposition: 22:48
[2019-08-29 21:20] LABS: Basophils # (A) 0.1 k/uL (0-0.2); Basophils % (A) 1 %; Eosinophils # (A) 0.4 k/uL (0-0.7); Eosinophils % (A) 6 %; HCT 36.1 % (34.0-46.0); HGB 11.5 gm/dL (11.4-16.0); Hypochromasia Slight; Lymphocytes # (A) 3.8 k/uL (1.0-4.8); Lymphocytes % (A) 51 %; MCH 28.3 pg (25.0-35.0); MCHC 31.9 g/dL (31.0-37.0); MCV 88.7 fL (80.0-100.0); Mean Platelet Volume 7.7; Monocytes # (A) 0.6 k/uL (0-1.0); Monocytes % (A) 8 %; Neutrophils # (A) 2.2 k/uL (1.3-7.7); Neutrophils % (A) 30 %; Platelet Count 309 k/uL (150-450); RBC 4.08 m/uL (3.80-5.40); RDW 14.8 % (11.5-15.5); WBC 7.4 k/uL (3.8-10.6)
[2019-08-29 21:32] LABS: Albumin 3.6 g/dL (3.5-5.0); Calcium 8.4 mg/dL (8.4-10.2); Potassium 3.7 mmol/L (3.5-5.1); Total Bilirubin 0.2 mg/dL (0.2-1.3); Total Protein 6.4 g/dL (6.3-8.2)
[2019-08-29 21:36] LABS: Appearance,Urine Cloudy (Clear); Bilirubin,Urine Negative (Negative); Blood,Urine Negative (Negative); Color,Urine Yellow; Glucose,Urine (UA) Negative (Negative); Hyaline Casts,Urine 57 /lpf (0-2); Ketones,Urine Trace (Negative); Leukocyte Esterase,Urine Moderate (Negative); Mucus,Urine Moderate /hpf; Nitrite,Urine Negative (Negative); PH, Urine 5.5 (5.0-8.0); Protein,Urine Trace (Negative); RBC,Urine 4 /hpf (0-5); Specific Gravity,Urine 1.027 (1.001-1.035); Squamous Epithelial Cell,Urine 5 /hpf (0-4); WBC,Urine 9 /hpf (0-5)
[2019-08-29] MEDS ORDERED: ONDANSETRON 4 MG ODT STARTER PACK 2 TAB BTL PO STA (22:47)
[2019-08-29 23:03] VITALS: BP 110/64; PULSE 68; RESP 18; TEMP 98.1
== END 2019-08-29 23:03 | disposition home or self-care (01) ==
LOC: EC 19:35
DX: R42 Dizziness and giddiness (principal); I48.91 Unspecified atrial fibrillation; I25.10 Atherosclerotic heart disease of native coronary artery without angina pectoris; K21.9 Gastro-esophageal reflux disease without esophagitis; I10 Essential (primary) hypertension; M19.90 Unspecified osteoarthritis, unspecified site; F41.9 Anxiety disorder, unspecified; F32.9 Major depressive disorder, single episode, unspecified; Z85.21 Personal history of malignant neoplasm of larynx; Z86.14 Personal history of Methicillin resistant Staphylococcus aureus infection; Z95.818 Presence of other cardiac implants and grafts; Z96.653 Presence of artificial knee joint, bilateral; Z87.891 Personal history of nicotine dependence; Z79.891 Long term (current) use of opiate analgesic; Z79.890 Hormone replacement therapy; Z79.899 Other long term (current) drug therapy; Z88.1 Allergy status to other antibiotic agents
CPT/HCPCS: 36415; 93005; 80053; 83735; 85025; 81001; 99284; 96374; 96361 ×2; J2405; S0119

== ENCOUNTER 2019-11-08 08:05 | Emergency (ER) | payer MEDICARE ==
[2019-11-08 08:26] VITALS: RESP 18; TEMP 98.2
--- NOTE | 2019-11-08 09:00 | ED ---
General Adult HPI - General Chief complaint: Recheck/Abnormal Lab/Rx Stated complaint: Can't Sleep Time Seen by Provider: 11/08/19 08:34 Source: patient, RN notes reviewed, old records reviewed Mode of arrival: wheelchair Limitations: no limitations - History of Present Illness Initial comments: 74-year-old female patient with the chief complaint of unable to sleep. Reports that last Saturday she has had a lot of difficulty sleeping. She denies any other acute complaints. She reports that about a week ago she had a headache however that has since resolved. Denies any chest pain shortness of breath. Systemic: Pt denies fatigue, fever/chills, rash. Pt denies weakness, night sweats, weight loss. Neuro: Pt denies headache, visual disturbances, syncope or pre-syncope. HEENT: Pt denies ocular discharge or irritation, otalgia, rhinorrhea, pharyngitis or notable lymphadenopathy. Cardiopulmonary: Pt denies chest pain, SOB, heart palpitations, dyspnea on exertion. Abdominal/GI: Pt denies abdominal pain, n/v/d. : Pt denies dysuria, burning w/ urination, frequency/urgency. Denies new onset urinary or bowel incontinence. MSK: Pt denies myalgia, loss of strength or function in extremities. Neuro: Pt denies new onset weakness, paresthesias. - Related Data Home Medications Medication Instructions Recorded Confirmed Atorvastatin [Lipitor] 10 mg PO HS 01/12/19 01/12/19 Clarithromycin [Biaxin] 500 mg PO Q12HR 01/12/19 01/12/19 HYDROcodone/APAP 7.5-325MG [[place] 1 tab PO BID 01/12/19 01/12/19 7.5-325] Levothyroxine Sodium [Synthroid] 200 mcg PO DAILY 01/12/19 01/12/19 Pantoprazole Sodium [Protonix] 40 mg PO DAILY 01/12/19 01/12/19 Sucralfate [Carafate] 1 gm PO ACHS 01/12/19 01/12/19 lisinopriL 20 mg PO DAILY 01/12/19 01/12/19 traZODone HCL [Desyrel] 100 mg PO HS 01/12/19 01/12/19 Previous Rx's Medication Instructions Recorded lisinopriL [Prinivil] 20 mg PO DAILY #30 tablet 03/03/19 Meclizine [Antivert] 25 mg PO TID PRN #15 tab 08/29/19 diazePAM [Valium] 2 mg PO Q24HR PRN #6 tab 11/08/19 Allergies Allergy/AdvReac Type Severity Reaction Status Date / Time vancomycin Allergy Rash/Hives Verified 11/08/19 08:26 Review of Systems ROS Statement: Those systems with pertinent positive or pertinent negative responses have been documented in the HPI. ROS Other: All systems not noted in ROS Statement are negative. 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 History of Any Multi-Drug Resistant Organisms: MRSA Date of last positivie culture/infection: 1997 MDRO Source:: left shoulder Past Surgical History: Bariatric Surgery, Cholecystectomy, Heart Catheterization, Hysterectomy, Joint Replacement, Orthopedic Surgery Additional Past Surgical History / Comment(s): Bilateral knee replacement, left shoulder rotator cuff surgery, gastric bypass, D&C, EGD/colonoscopy, laryngeal tumor removed, Ganglion Cysts both wrists.PAIN CLINIC INJECTIONS Past Anesthesia/Blood Transfusion Reactions: No Reported Reaction Date of Last Stent Placement:: 2012 Past Psychological History: Anxiety, Depression, Panic Disorder Smoking Status: Never smoker Past Alcohol Use History: None Reported Past Drug Use History: None Reported - Past Family History Mother Family Medical History: Cancer, Congestive Heart Failure (CHF), Diabetes Mellitus, Hypertension Additional Family Medical History / Comment(s): Mother passed at 93. Father Family Medical History: Myocardial Infarction ([place]) Additional Family Medical History / Comment(s): Father of a [place] at the age of 39 yrs. Sister(s) Family Medical History: Cancer Brother(s) Family Medical History: Cancer, Myocardial Infarction ([place]) General Exam - General Exam Comments Initial Comments: Constitutional: NAD, AOX3, Pt has pleasant affect. HEENT: NC/AT, trachea midline, neck supple, no lymphadenopathy. External ears appear normal, without discharge. Mucous membranes moist. Eyes PERRLA, EOM intact. There is no scleral icterus. No pallor noted. Cardiopulmonary: RRR, no murmurs, rubs or gallops, no JVD noted. Lungs CTAB in anterior and posterior herrera. No peripheral edema. Abdominal: Abdomen soft and nontender to palpation in all 4 quadrants. Neuro: CN II-XII intact. No nuchal rigidity. No raccon eyes, no ortega sign. MSK: Full active range of motion in upper and lower extremities. Limitations: no limitations Course Vital Signs 11/08/19 11/08/19 11/08/19 08:23 08:26 09:26 Temperature 98.2 F Pulse Rate 76 77 Respiratory 18 18 18 Rate Blood Pressure 208/91 170/88 O2 Sat by Pulse 99 98 Oximetry 11/08/19 09:27 Temperature 98.2 F Pulse Rate 77 Respiratory 18 Rate Blood Pressure 170/88 O2 Sat by Pulse 98 Oximetry Medical Decision Making - Medical Decision Making 74-year-old female patient with the chief complaint of unable to sleep. Reports that last Saturday she has had a lot of difficulty sleeping. She denies any other acute complaints. She reports that about a week ago she had a headache however that has since resolved. Denies any chest pain shortness of breath. Patient vital signs display hypertension. Otherwise stable. Physical exam that is making pathology. Patient additionally prescribed a low-dose of Valium to help herself sleep. On repeat evaluation patient stated that she has now a very mild generalized headache but she states it feels as if it is that she has not slept in a long time. I did recommend CAT scan further workup she is declining all of this. Patient was administered a low dose of Catapres for her blood pressure. She'll recheck at home. Patient has a PRN medication that she will take at home if it remains significantly elevated. She will return to ER if condition worsens. Case discussed with Dr. Schwartz. Disposition Clinical Impression: Insomnia, Difficulty sleeping Disposition: HOME SELF-CARE Condition: Stable Instructions (If sedation given, give patient instructions): Insomnia (ED) Additional Instructions: Follow-up with primary care provider tomorrow. Take 2 mg Valium you sleep. If you are still having difficulty sleeping you make take one more 2 mg tab. Do not take any more than this. Monitor your blood pressure at home. If you are still elevated he may take your PRN (as needed) medication. Return to ER if symptoms if worsen. Prescriptions: diazePAM [Valium] 2 mg PO Q24HR PRN #6 tab PRN Reason: difficulty sleeping Is patient prescribed a controlled substance at d/c from ED?: No Referrals: None,Stated [Primary Care Provider] - 1-2 days Jay Suarez [STAFF PHYSICIAN] - 1-2 days
[2019-11-08] MEDS ORDERED: cloNIDine HCL 0.1 MG TAB PO STA (09:08)
[2019-11-08] MEDS ORDERED: diazePAM 2 MG TAB PO STA (09:12)
[2019-11-08 09:45] VITALS: BP 170/88; PULSE 77
== END 2019-11-08 09:28 | disposition home or self-care (01) ==
LOC: EC 08:05
DX: G47.00 Insomnia, unspecified (principal); I10 Essential (primary) hypertension; I25.10 Atherosclerotic heart disease of native coronary artery without angina pectoris; I25.2 Old myocardial infarction; K21.9 Gastro-esophageal reflux disease without esophagitis; M19.90 Unspecified osteoarthritis, unspecified site; G51.0 Bell's palsy; F41.9 Anxiety disorder, unspecified; F32.9 Major depressive disorder, single episode, unspecified; G89.29 Other chronic pain; M54.9 Dorsalgia, unspecified; Z79.891 Long term (current) use of opiate analgesic; Z79.890 Hormone replacement therapy; Z79.899 Other long term (current) drug therapy; Z88.0 Allergy status to penicillin; Z88.1 Allergy status to other antibiotic agents; Z85.21 Personal history of malignant neoplasm of larynx; Z96.653 Presence of artificial knee joint, bilateral; Z95.5 Presence of coronary angioplasty implant and graft; Z86.14 Personal history of Methicillin resistant Staphylococcus aureus infection
CPT/HCPCS: 99283

== ENCOUNTER 2020-01-31 02:01 | Emergency (ER) | payer MEDICARE, OTHER ==
[2020-01-31] MEDS ORDERED: cloNIDine HCL 0.2 MG TAB PO STA (02:27)
[2020-01-31] MEDS ORDERED: diazePAM 2 MG TAB PO STA (02:27)
[2020-01-31] MEDS ORDERED: diazePAM 5 MG TAB PO STA (02:44)
--- NOTE | 2020-01-31 03:04 | ED ---
Anxiety HPI - General Chief Complaint: Anxiety Stated Complaint: Can't sleep Time Seen by Provider: 01/31/20 02:21 Source: patient, RN notes reviewed, old records reviewed Mode of arrival: ambulatory - History of Present Illness Initial Comments: Patient is a 74-year-old female who presents the emergency department today with 4 days of anxiety, panic attack episodes and ended able to sleep. She reports that she is exhausted but seems to have a difficult time putting her mind at ease and sleeping. Patient has been taking melatonin and Benadryl. Patient reports that shehas been seen in emergency department in the past for similar complaints. She denies any physical complaints including chest pain headache shortness of breath nausea or vomiting. She reports that she physically feels well. Patient reports that in the past she has been given low-dose of Valium to help her sleep.Patient reports that she was found to have high blood pressure which she contributes somewhat to anxiety. She reports that each she took her normal morning of blood pressure medication and was told that she should occasionally take it at night of her blood pressure remains high. She does not have a blood pressure monitor at home to check to see if she needs to take blood pressure medicines at night. Patient relates that she is in between following with primary care doctors and does not have one established at this time. - Related Data Home Medications: Home Medications Medication Instructions Recorded Confirmed Atorvastatin [Lipitor] 10 mg PO HS 01/12/19 01/12/19 Clarithromycin [Biaxin] 500 mg PO Q12HR 01/12/19 01/12/19 HYDROcodone/APAP 7.5-325MG [[place] 1 tab PO BID 01/12/19 01/12/19 7.5-325] Levothyroxine Sodium [Synthroid] 200 mcg PO DAILY 01/12/19 01/12/19 Pantoprazole Sodium [Protonix] 40 mg PO DAILY 01/12/19 01/12/19 Sucralfate [Carafate] 1 gm PO ACHS 01/12/19 01/12/19 lisinopriL 20 mg PO DAILY 01/12/19 01/12/19 traZODone HCL [Desyrel] 100 mg PO HS 01/12/19 01/12/19 Previous Rx's Medication Instructions Recorded lisinopriL [Prinivil] 20 mg PO DAILY #30 tablet 03/03/19 Meclizine [Antivert] 25 mg PO TID PRN #15 tab 08/29/19 diazePAM [Valium] 2 mg PO Q24HR PRN #6 tab 11/08/19 Allergies/Adverse Reactions: Allergies Allergy/AdvReac Type Severity Reaction Status Date / Time vancomycin Allergy Rash/Hives Verified 01/31/20 02:05 Review of Systems ROS Statement: Those systems with pertinent positive or pertinent negative responses have been documented in the HPI. ROS Other: All systems not noted in ROS Statement are negative. 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 History of Any Multi-Drug Resistant Organisms: MRSA Date of last positivie culture/infection: 1997 MDRO Source:: left shoulder Past Surgical History: Bariatric Surgery, Cholecystectomy, Heart Catheterization, Hysterectomy, Joint Replacement, Orthopedic Surgery Additional Past Surgical History / Comment(s): Bilateral knee replacement, left shoulder rotator cuff surgery, gastric bypass, D&C, EGD/colonoscopy, laryngeal tumor removed, Ganglion Cysts both wrists.PAIN CLINIC INJECTIONS Past Anesthesia/Blood Transfusion Reactions: No Reported Reaction Date of Last Stent Placement:: 2012 Past Psychological History: Anxiety, Depression, Panic Disorder Smoking Status: Never smoker Past Alcohol Use History: None Reported Past Drug Use History: None Reported - Past Family History Mother Family Medical History: Cancer, Congestive Heart Failure (CHF), Diabetes Mellitus, Hypertension Additional Family Medical History / Comment(s): Mother passed at 93. Father Family Medical History: Myocardial Infarction ([place]) Additional Family Medical History / Comment(s): Father of a [place] at the age of 39 yrs. Sister(s) Family Medical History: Cancer Brother(s) Family Medical History: Cancer, Myocardial Infarction ([place]) General Exam - General Exam Comments Initial Comments: 74-year-old female. No distress.Patient is somewhat anxious. Limitations: no limitations General appearance: anxious Head exam: Present: atraumatic, normocephalic, normal inspection Eye exam: Present: normal appearance, PERRL, EOMI. Absent: scleral icterus, con junctival injection, periorbital swelling ENT exam: Present: normal exam, mucous membranes moist Neck exam: Present: normal inspection. Absent: tenderness, meningismus, lymphadenopathy Respiratory exam: Present: normal lung sounds bilaterally. Absent: respiratory distress, wheezes, rales, rhonchi, stridor Cardiovascular Exam: Present: regular rate, normal rhythm, normal heart sounds. Absent: systolic murmur, diastolic murmur, rubs, gallop, clicks GI/Abdominal exam: Present: soft, normal bowel sounds. Absent: distended, tenderness, guarding, rebound, rigid Extremities exam: Present: normal inspection, full ROM, normal capillary refill. Absent: tenderness, pedal edema, joint swelling, calf tenderness Back exam: Present: normal inspection Neurological exam: Present: alert, oriented X3, CN II-XII intact Psychiatric exam: Present: normal affect, normal mood Skin exam: Present: warm, dry, intact, normal color. Absent: rash Course Vital Signs 01/31/20 01/31/20 02:01 02:46 Temperature 97 F L Pulse Rate 75 Respiratory 18 Rate Blood Pressure 208/97 152/101 O2 Sat by Pulse 99 Oximetry Medical Decision Making - Medical Decision Making 74-year-old female with complaints of anxiety and inability to sleep. She de nies any physical complaints. She was found to be somewhat hypertensive upon arrival. Somewhat contributed to anxiety and patient's known history of hypertension. She takes her morning medication but nothing lately at night if she does not have a monitor to check it at home. Patient was given a dose of Catapres emergency department. Will be given by mouth Valium to take at home to help with her anxiety and help her sleep. I discussed she needs to follow-up with primary care doctor in [facility] services for further discussion of chronic insomnia. Patient understands treatment plan will comply. Return parameters were discussed. Disposition Clinical Impression: Anxiety Disposition: HOME SELF-CARE Condition: Good Instructions (If sedation given, give patient instructions): Generalized Anxiety Disorder (ED) Additional Instructions: Patient advised to follow-up with primary care doctor and [facility] specialist. Return to the ED if any alarming signs or symptoms occur. Is patient prescribed a controlled substance at d/c from ED?: No Referrals: None,Stated [Primary Care Provider] - 1-2 days Jay Suarez [STAFF PHYSICIAN] - 1-2 days Time of Disposition: 03:08
[2020-01-31 03:53] VITALS: BP 167/79; PULSE 77; RESP 20; TEMP 97.6
== END 2020-01-31 03:31 | disposition home or self-care (01) ==
LOC: EC 02:01
DX: F41.9 Anxiety disorder, unspecified (principal); I10 Essential (primary) hypertension; K21.9 Gastro-esophageal reflux disease without esophagitis; K27.9 Peptic ulcer, site unspecified, unspecified as acute or chronic, without hemorrhage or perforation; I25.119 Atherosclerotic heart disease of native coronary artery with unspecified angina pectoris; G89.29 Other chronic pain; M54.9 Dorsalgia, unspecified; F51.04 Psychophysiologic insomnia; F32.9 Major depressive disorder, single episode, unspecified; Z79.891 Long term (current) use of opiate analgesic; Z79.899 Other long term (current) drug therapy; Z79.890 Hormone replacement therapy; Z88.1 Allergy status to other antibiotic agents; Z85.21 Personal history of malignant neoplasm of larynx; Z96.653 Presence of artificial knee joint, bilateral
CPT/HCPCS: 99283

== ENCOUNTER 2020-04-12 15:09 | Emergency (ER) | payer MEDICARE ==
[2020-04-12] MEDS ORDERED: FAMOTIDINE 20 MG/2 ML VIAL IV STA (15:33)
[2020-04-12] MEDS ORDERED: SODIUM CHLORIDE 0.9% 1,000 ML IV STA (15:33)
[2020-04-12] MEDS ORDERED: ONDANSETRON 4 MG/2 ML VIAL IVP STA (15:33)
[2020-04-12] MEDS ORDERED: IOPAMIDOL CONTRAST (ORAL USE) VIAL PO STA (15:39)
--- NOTE | 2020-04-12 15:42 | ED ---
General Adult HPI - General Chief complaint: Nausea/Vomiting/Diarrhea Stated complaint: Vomiting Time Seen by Provider: 04/12/20 15:11 Source: patient, EMS, RN notes reviewed Mode of arrival: EMS Limitations: no limitations - History of Present Illness Initial comments: Patient is a pleasant 74-year-old female presenting to the emergency Department with complaints of nausea vomiting. Onset of symptoms was last night. Patient has had several episodes of vomiting, unclear how much. Patient does have some mild discomfort of her upper abdomen. No constipation or diarrhea. No fever. No history of chronic similar problems. Patient does have history of bariatric surgery around 25 years ago. Patient does not see a surgeon regularly for this. - Related Data Home Medications Medication Instructions Recorded Confirmed Levothyroxine Sodium [Synthroid] 200 mcg PO DAILY 01/12/19 04/12/20 traZODone HCL [Desyrel] 100 mg PO HS PRN 01/12/19 04/12/20 Omeprazole 20 mg PO BID 04/12/20 04/12/20 diazePAM [Valium] 5 mg PO HS 04/12/20 04/12/20 lisinopriL 40 mg PO DAILY 04/12/20 04/12/20 Allergies Allergy/AdvReac Type Severity Reaction Status Date / Time vancomycin Allergy Rash/Hives Verified 04/12/20 18:48 Review of Systems ROS Statement: Those systems with pertinent positive or pertinent negative responses have been documented in the HPI. ROS Other: All systems not noted in ROS Statement are negative. Constitutional: Denies: fever Eyes: Denies: eye pain ENT: Denies: ear pain Respiratory: Denies: cough Cardiovascular: Denies: chest pain Endocrine: Denies: fatigue Gastrointestinal: Reports: as per HPI, abdominal pain, nausea, vomiting Genitourinary: Denies: dysuria Musculoskeletal: Denies: back pain Skin: Denies: rash Neurological: Denies: weakness Past Medical History Past Medical History: Atrial Fibrillation, Coronary Artery Disease (CAD), Cancer, Chest Pain / Angina, Eye Disorder, GERD/Reflux, Hypertension, Musculoskeletal Disorder, Osteoarthritis (OA) Additional Past Medical History / Comment(s): Peptic ulcer, chronic back pain, 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 History of Any Multi-Drug Resistant Organisms: MRSA Date of last positivie culture/infection: 1997 MDRO Source:: left shoulder Past Surgical History: Bariatric Surgery, Cholecystectomy, Heart Catheterization, Hysterectomy, Joint Replacement, Orthopedic Surgery Additional Past Surgical History / Comment(s): Bilateral knee replacement, left shoulder rotator cuff surgery, gastric bypass, D&C, EGD/colonoscopy, laryngeal tumor removed, Ganglion Cysts both wrists.PAIN CLINIC INJECTIONS Past Anesthesia/Blood Transfusion Reactions: No Reported Reaction Date of Last Stent Placement:: 2012 Past Psychological History: Anxiety, Depression, Panic Disorder Smoking Status: Never smoker Past Alcohol Use History: None Reported Past Drug Use History: None Reported - Past Family History Mother Family Medical History: Cancer, Congestive Heart Failure (CHF), Diabetes Mellitus, Hypertension Additional Family Medical History / Comment(s): Mother passed at 93. Father Family Medical History: Myocardial Infarction ([place]) Additional Family Medical History / Comment(s): Father of a [place] at the age of 39 yrs. Sister(s) Family Medical History: Cancer Brother(s) Family Medical History: Cancer, Myocardial Infarction ([place]) General Exam Limitations: no limitations General appearance: alert, in no apparent distress Head exam: Present: normocephalic Eye exam: Present: normal appearance Neck exam: Present: normal inspection Respiratory exam: Present: normal lung sounds bilaterally Cardiovascular Exam: Present: regular rate, normal rhythm Expanded Peripheral pulses: 2+: Posterior Tibialis (R), Posterior Tibialis (L) GI/Abdominal exam: Present: soft, tenderness (Mild epigastric tenderness to palpation). Absent: distended, guarding, rebound, rigid, pulsatile mass Extremities exam: Present: normal inspection. Absent: pedal edema, calf tenderness Neurological exam: Present: alert Psychiatric exam: Present: normal affect, normal mood Skin exam: Present: normal color Course Vital Signs 04/12/20 04/12/20 04/12/20 15:17 15:20 17:20 Temperature 97.9 F Pulse Rate 76 66 Respiratory 18 20 Rate Blood Pressure 167/91 144/73 O2 Sat by Pulse 99 98 Oximetry EKG Findings - EKG Comments: EKG Findings:: Sinus rhythm at 67. For screening AV block MI of 266. QRS 158. QT 466. QTc 492. Normal axis. Left bundle branch block. Medical Decision Making - Medical Decision Making Patient reevaluated and feeling much better. Patient is comfortable with discharge home. Patient updated on results and need for follow-up. - Lab Data Result diagrams: 04/12/20 15:36 04/12/20 15:36 Lab Results 04/12/20 04/12/20 04/12/20 Range/Units 15:36 15:36 15:36 WBC 3.8 (3.8-10.6) k/uL RBC 3.57 L (3.80-5.40) m/uL Hgb 11.1 L (11.4-16.0) gm/dL Hct 33.1 L (34.0-46.0) % MCV 92.6 (80.0-100.0) fL MCH 31.0 (25.0-35.0) pg MCHC 33.5 (31.0-37.0) g/dL RDW 16.1 H (11.5-15.5) % Plt Count 255 (150-450) k/uL MPV 7.0 Neutrophils % 40 % Lymphocytes % 44 % Monocytes % 7 % Eosinophils % 5 % Basophils % 2 % Neutrophils # 1.5 (1.3-7.7) k/uL Lymphocytes # 1.7 (1.0-4.8) k/uL Monocytes # 0.3 (0-1.0) k/uL Eosinophils # 0.2 (0-0.7) k/uL Basophils # 0.1 (0-0.2) k/uL Anisocytosis Slight PT 12.9 H (9.0-12.0) sec INR 1.2 H (<1.2) APTT 22.5 (22.0-30.0) sec Sodium 135 L (137-145) mmol/L Potassium 3.5 (3.5-5.1) mmol/L Chloride 109 H (98-107) mmol/L Carbon Dioxide 19 L (22-30) mmol/L Anion Gap 7 mmol/L BUN 11 (7-17) mg/dL Creatinine 0.89 (0.52-1.04) mg/dL Est GFR (CKD-EPI)AfAm 74 (>60 ml/min/1.73 sqM) Est GFR (CKD-EPI)NonAf 64 (>60 ml/min/1.73 sqM) Glucose 87 (74-99) mg/dL Calcium 7.9 L (8.4-10.2) mg/dL Total Bilirubin 0.6 (0.2-1.3) mg/dL AST 29 (14-36) U/L ALT 14 (4-34) U/L Alkaline Phosphatase 66 (38-126) U/L Troponin I (0.000-0.034) ng/mL Total Protein 6.8 (6.3-8.2) g/dL Albumin 3.7 (3.5-5.0) g/dL Amylase <30 L (30-110) U/L Lipase 126 (23-300) U/L Urine Color Urine Appearance (Clear) Urine pH (5.0-8.0) Ur Specific [place] (1.001-1.035) Urine Protein (Negative) Urine Glucose (UA) (Negative) Urine Ketones (Negative) Urine Blood (Negative) Urine Nitrite (Negative) Urine Bilirubin (Negative) Urine Urobilinogen (<2.0) mg/dL Ur Leukocyte Esterase (Negative) 04/12/20 04/12/20 Range/Units 15:36 16:38 WBC (3.8-10.6) k/uL RBC (3.80-5.40) m/uL Hgb (11.4-16.0) gm/dL Hct (34.0-46.0) % MCV (80.0-100.0) fL MCH (25.0-35.0) pg MCHC (31.0-37.0) g/dL RDW (11.5-15.5) % Plt Count (150-450) k/uL MPV Neutrophils % % Lymphocytes % % Monocytes % % Eosinophils % % Basophils % % Neutrophils # (1.3-7.7) k/uL Lymphocytes # (1.0-4.8) k/uL Monocytes # (0-1.0) k/uL Eosinophils # (0-0.7) k/uL Basophils # (0-0.2) k/uL Anisocytosis PT (9.0-12.0) sec INR (<1.2) APTT (22.0-30.0) sec Sodium (137-145) mmol/L Potassium (3.5-5.1) mmol/L Chloride (98-107) mmol/L Carbon Dioxide (22-30) mmol/L Anion Gap mmol/L BUN (7-17) mg/dL Creatinine (0.52-1.04) mg/dL Est GFR (CKD-EPI)AfAm (>60 ml/min/1.73 sqM) Est GFR (CKD-EPI)NonAf (>60 ml/min/1.73 sqM) Glucose (74-99) mg/dL Calcium (8.4-10.2) mg/dL Total Bilirubin (0.2-1.3) mg/dL AST (14-36) U/L ALT (4-34) U/L Alkaline Phosphatase (38-126) U/L Troponin I <0.012 (0.000-0.034) ng/mL Total Protein (6.3-8.2) g/dL Albumin (3.5-5.0) g/dL Amylase (30-110) U/L Lipase (23-300) U/L Urine Color Light Yellow Urine Appearance Clear (Clear) Urine pH 6.5 (5.0-8.0) Ur Specific [place] 1.010 (1.001-1.035) Urine Protein Negative (Negative) Urine Glucose (UA) Negative (Negative) Urine Ketones Negative (Negative) Urine Blood Negative (Negative) Urine Nitrite Negative (Negative) Urine Bilirubin Negative (Negative) Urine Urobilinogen <2.0 (<2.0) mg/dL Ur Leukocyte Esterase Negative (Negative) - Radiology Data Radiology results: report reviewed (Computed tomography scan of abdomen and pelvis shows diverticulosis without diverticulitis. Previous surgery.) Disposition Clinical Impression: Vomiting Disposition: HOME SELF-CARE Condition: Stable Instructions (If sedation given, give patient instructions): Acute Nausea and Vomiting (ED) Additional Instructions: Please follow-up with primary care physician in the next day or 2 for recheck. Return for not tolerating fluids, increased pain or fever, worsening symptoms or other concerns Is patient prescribed a controlled substance at d/c from ED?: No Referrals: Jay Suarez [Primary Care Provider] - 1-2 days Time of Disposition: 19:26
[2020-04-12 15:50] LABS: Anisocytosis Slight; Basophils # (A) 0.1 k/uL (0-0.2); Basophils % (A) 2 %; Eosinophils # (A) 0.2 k/uL (0-0.7); Eosinophils % (A) 5 %; HCT 33.1 % (34.0-46.0); HGB 11.1 gm/dL (11.4-16.0); Lymphocytes # (A) 1.7 k/uL (1.0-4.8); Lymphocytes % (A) 44 %; MCHC 33.5 g/dL (31.0-37.0); MCV 92.6 fL (80.0-100.0); Monocytes # (A) 0.3 k/uL (0-1.0); Monocytes % (A) 7 %; Neutrophils # (A) 1.5 k/uL (1.3-7.7); Neutrophils % (A) 40 %; Platelet Count 255 k/uL (150-450); RBC 3.57 m/uL (3.80-5.40); RDW 16.1 % (11.5-15.5); WBC 3.8 k/uL (3.8-10.6)
[2020-04-12 16:07] LABS: ALT 14 U/L (4-34); AST 29 U/L (14-36); African American GFR (CKD) 74 (>60 ml/min/1.73 sqM); Albumin 3.7 g/dL (3.5-5.0); Alkaline Phosphatase 66 U/L (38-126); Anion Gap 7 mmol/L; Blood Urea Nitrogen 11 mg/dL (7-17); Calcium 7.9 mg/dL (8.4-10.2); Carbon Dioxide 19 mmol/L (22-30); Chloride 109 mmol/L (98-107); Glucose 87 mg/dL (74-99); Lipase 126 U/L (23-300); Non-African American GFR(CKD) 64 (>60 ml/min/1.73 sqM); Potassium 3.5 mmol/L (3.5-5.1); Sodium 135 mmol/L (137-145); Total Bilirubin 0.6 mg/dL (0.2-1.3); Total Protein 6.8 g/dL (6.3-8.2)
[2020-04-12 16:12] LABS: INR 1.2 (<1.2); Partial Thromboplastin Time 22.5 sec (22.0-30.0); Prothrombin Time 12.9 sec (9.0-12.0)
[2020-04-12 16:17] LABS: Amylase <30 U/L (30-110)
[2020-04-12 17:01] LABS: Appearance,Urine Clear (Clear); Bilirubin,Urine Negative (Negative); Blood,Urine Negative (Negative); Color,Urine Light Yellow; Glucose,Urine (UA) Negative (Negative); Ketones,Urine Negative (Negative); Leukocyte Esterase,Urine Negative (Negative); Nitrite,Urine Negative (Negative); PH, Urine 6.5 (5.0-8.0); Protein,Urine Negative (Negative); Urobilinogen,Urine <2.0 mg/dL (<2.0)
--- NOTE | 2020-04-12 17:36 | CT ---
EXAMINATION TYPE: CT abdomen pelvis w con DATE OF EXAM: 04/12/2020 COMPARISON: 01/12/2019 HISTORY: Upper Abdominal pain. CT DLP: 1800.8 mGycm Automated exposure control for dose reduction was used. CONTRAST: Performed with IV Contrast, patient injected with 100 mL of Isovue 300. Images obtained from the diaphragm to the floor the pelvis with IV contrast. There is mild subsegment al atelectasis at the lung bases. There is small pericardial effusion. There is no pleural effusion. There are clips from cholecystectomy. Liver spleen stomach appear intact. There are clips around the stomach. Bile ducts are not dilated. There is no adrenal mass. There is no evidence of pancreatic mas s. Kidneys show satisfactory contrast opacification. There is no hydronephrosis. Ureters are not dilated . Delayed images show normal renal excretion. There is no retroperitoneal adenopathy. Abdominal aorta is atheromatous. There are multiple diverticula of the sigmoid colon. There is no sign of diverticul itis. There are diverticula in the descending colon. There is no mesenteric edema. There is no ascites or free air. There is no evidence of a bowel obstru ction. Appendix is not definitely seen. There is no sign of thickened appendix. Bladder distends smoothly. There is no inguinal hernia. There is no free fluid in the pelvis. There i s no evidence of pelvic mass. There is hysterectomy. There is a 8 mm degenerative first-degree L4-5 spondylolisthesis. There is no lumbar compression frac ture. There is a mild retrolisthesis at L2-3. There is moderate L2-3 disc space narrowing. There is m oderate L4-5 disc space narrowing. The bony pelvis is intact. The hip joints are intact. There is spi nal stenosis at L4-5. There is also some spinal stenosis at L3-4. IMPRESSION: Colonic diverticulosis. No evidence of diverticulitis. Previous bariatric gastric surgery. Spondylotic changes in the lumbar spine with spinal stenosis. Mil d subsegmental atelectasis at the lung bases increased compared to old exam..
[2020-04-12] MEDS ORDERED: MORPHINE SULFATE 4 MG/ML SYRINGE IVP STA (17:51)
[2020-04-12] MEDS ORDERED: ONDANSETRON 4 MG ODT STARTER PACK 2 TAB BTL PO STA (19:26)
[2020-04-12 19:59] VITALS: BP 136/78; PULSE 88; RESP 18; TEMP 98.7
== END 2020-04-12 20:00 | disposition home or self-care (01) ==
LOC: EC 15:09
DX: R11.2 Nausea with vomiting, unspecified (principal); R10.13 Epigastric pain; F41.9 Anxiety disorder, unspecified; F32.9 Major depressive disorder, single episode, unspecified; K21.9 Gastro-esophageal reflux disease without esophagitis; Z79.899 Other long term (current) drug therapy; I10 Essential (primary) hypertension; Z86.14 Personal history of Methicillin resistant Staphylococcus aureus infection; Z95.5 Presence of coronary angioplasty implant and graft; Z90.49 Acquired absence of other specified parts of digestive tract; Z90.710 Acquired absence of both cervix and uterus; Z98.84 Bariatric surgery status; Z96.653 Presence of artificial knee joint, bilateral; Z98.42 Cataract extraction status, left eye; Z98.41 Cataract extraction status, right eye; Z85.21 Personal history of malignant neoplasm of larynx; Z88.1 Allergy status to other antibiotic agents
CPT/HCPCS: 36415; 93005; 80053; 82150; 83690; 84484; 85025; 85610; 85730; 81003; 74177; 99284; 96374; 96375 ×2; 96361 ×4; J2270; J2405; S0119; Q9967

== ENCOUNTER 2020-04-20 13:09 | Inpatient (IN) | payer MEDICARE ==
[2020-04-20] MEDS ORDERED: SODIUM CHLORIDE 0.9% 1,000 ML IV STA (13:38)
--- NOTE | 2020-04-20 14:04 | ED ---
General Adult HPI - General Chief complaint: Dizziness Stated complaint: Vomiting,Dizzy/almost passed out Time Seen by Provider: 04/20/20 13:19 Source: patient, RN notes reviewed, old records reviewed Mode of arrival: ambulatory Limitations: no limitations - History of Present Illness Initial comments: 74-year-old female presenting for evaluation of dizziness, lightheadedness. Patient's symptoms began yesterday evening. She denies focal numbness or weakness. Denies headache. Denies chest pain or palpitations. She states she has an issue with chronic vomiting and does follow with gastroenterology she states she often vomits with solid food. She states she has been drinking well. No diarrhea. No fever. No cough or URI symptoms. - Related Data Home Medications Medication Instructions Recorded Confirmed Levothyroxine Sodium [Synthroid] 200 mcg PO DAILY 01/12/19 04/20/20 Omeprazole 20 mg PO BID 04/12/20 04/20/20 diazePAM [Valium] 5 mg PO HS 04/12/20 04/20/20 Venlafaxine HCl ER [Effexor Xr] 37.5 mg PO DAILY 04/20/20 04/20/20 lisinopriL [Zestril] 20 mg PO DAILY 04/20/20 04/20/20 lisinopriL [Zestril] 20 mg PO DAILY PRN 04/20/20 04/20/20 tiZANidine [Zanaflex] 4 mg PO BID PRN 04/20/20 04/20/20 Allergies Allergy/AdvReac Type Severity Reaction Status Date / Time vancomycin Allergy Rash/Hives Verified 04/20/20 13:56 Review of Systems ROS Statement: Those systems with pertinent positive or pertinent negative responses have been documented in the HPI. ROS Other: All systems not noted in ROS Statement are negative. 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 History of Any Multi-Drug Resistant Organisms: MRSA Date of last positivie culture/infection: 1997 MDRO Source:: left shoulder Past Surgical History: Bariatric Surgery, Cholecystectomy, Heart Catheterization, Hysterectomy, Joint Replacement, Orthopedic Surgery Additional Past Surgical History / Comment(s): Bilateral knee replacement, left shoulder rotator cuff surgery, gastric bypass, D&C, EGD/colonoscopy, laryngeal tumor removed, Ganglion Cysts both wrists.PAIN CLINIC INJECTIONS, Past Anesthesia/Blood Transfusion Reactions: No Reported Reaction Date of Last Stent Placement:: 2012 Past Psychological History: Anxiety, Depression, Panic Disorder Smoking Status: Former smoker Past Alcohol Use History: None Reported Past Drug Use History: None Reported - Past Family History Mother Family Medical History: Cancer, Congestive Heart Failure (CHF), Diabetes Mellitus, Hypertension Additional Family Medical History / Comment(s): Mother passed at 93. Father Family Medical History: Myocardial Infarction ([place]) Additional Family Medical History / Comment(s): Father of a [place] at the age of 39 yrs. Sister(s) Family Medical History: Cancer Brother(s) Family Medical History: Cancer, Myocardial Infarction ([place]) General Exam Limitations: no limitations General appearance: alert, in no apparent distress Head exam: Present: atraumatic, normocephalic Eye exam: Present: normal appearance, PERRL ENT exam: Present: mucous membranes dry Neck exam: Present: normal inspection. Absent: tenderness, meningismus Respiratory exam: Present: normal lung sounds bilaterally. Absent: respiratory distress, wheezes Cardiovascular Exam: Present: normal rhythm, bradycardia GI/Abdominal exam: Present: soft. Absent: distended, tenderness, guarding Extremities exam: Present: normal capillary refill. Absent: pedal edema, calf tenderness Neurological exam: Present: alert, oriented X3, CN II-XII intact, other (No ataxia). Absent: motor sensory deficit Psychiatric exam: Present: normal affect, normal mood Skin exam: Present: warm, dry, intact. Absent: cyanosis, diaphoretic Course Vital Signs 04/20/20 04/20/20 04/20/20 13:15 13:59 14:00 Temperature 97.7 F Pulse Rate 51 L 49 L 50 L Respiratory 16 18 18 Rate Blood Pressure 100/63 142/67 127/73 O2 Sat by Pulse 95 94 L 95 Oximetry 04/20/20 04/20/20 14:01 14:26 Temperature Pulse Rate 52 L 46 L Respiratory 18 18 Rate Blood Pressure 103/70 111/59 O2 Sat by Pulse 95 98 Oximetry EKG Findings - EKG Comments: EKG Findings:: Says bradycardia, rate of 48, first-degree AV block, wide QRS, QRS duration 122, QTC 464 Medical Decision Making - Medical Decision Making 74-year-old female with near syncope, orthostatic hypotension, dehydration. Patient does appear dehydrated, given IV fluids which does improve blood pressure. She remains somewhat bradycardic which is sinus with a first-degree AV block. Workup reveals white blood cell count 5.1 which is normal, hemoglobin 10.9 stable for this patient. She is a sodium of 129, normal lactic acid, additional electrolytes are within normal limits. Troponin is negative. Her hypertensive medications will be held. She will be monitored on continuous IV fluid, telemetry, case discussed with Dr. Mcgowan who will admit with cardiology on consultation. - Lab Data Result diagrams: 04/20/20 13:54 04/20/20 13:54 Lab Results 04/20/20 04/20/20 04/20/20 Range/Units 13:54 13:54 13:54 WBC 5.1 (3.8-10.6) k/uL RBC 3.39 L (3.80-5.40) m/uL Hgb 10.9 L (11.4-16.0) gm/dL Hct 31.5 L (34.0-46.0) % MCV 92.8 (80.0-100.0) fL MCH 32.1 (25.0-35.0) pg MCHC 34.5 (31.0-37.0) g/dL RDW 16.5 H (11.5-15.5) % Plt Count 219 (150-450) k/uL MPV 7.2 Neutrophils % 43 % Lymphocytes % 41 % Monocytes % 9 % Eosinophils % 5 % Basophils % 1 % Neutrophils # 2.2 (1.3-7.7) k/uL Lymphocytes # 2.1 (1.0-4.8) k/uL Monocytes # 0.5 (0-1.0) k/uL Eosinophils # 0.2 (0-0.7) k/uL Basophils # 0.0 (0-0.2) k/uL Anisocytosis Slight PT 13.5 H (9.0-12.0) sec INR 1.3 H (<1.2) APTT 27.9 (22.0-30.0) sec Sodium 129 L (137-145) mmol/L Potassium 4.2 (3.5-5.1) mmol/L Chloride 101 (98-107) mmol/L Carbon Dioxide 22 (22-30) mmol/L Anion Gap 6 mmol/L BUN 15 (7-17) mg/dL Creatinine 1.09 H (0.52-1.04) mg/dL Est GFR (CKD-EPI)AfAm 58 (>60 ml/min/1.73 sqM) Est GFR (CKD-EPI)NonAf 50 (>60 ml/min/1.73 sqM) Glucose 112 H (74-99) mg/dL Plasma Lactic Acid Anthony (0.7-2.0) mmol/L Calcium 8.2 L (8.4-10.2) mg/dL Magnesium 2.0 (1.6-2.3) mg/dL Total Bilirubin 0.5 (0.2-1.3) mg/dL AST 32 (14-36) U/L ALT 13 (4-34) U/L Alkaline Phosphatase 60 (38-126) U/L Troponin I (0.000-0.034) ng/mL Total Protein 6.6 (6.3-8.2) g/dL Albumin 3.7 (3.5-5.0) g/dL Urine Color Urine Appearance (Clear) Urine pH (5.0-8.0) Ur Specific [place] (1.001-1.035) Urine Protein (Negative) Urine Glucose (UA) (Negative) Urine Ketones (Negative) Urine Blood (Negative) Urine Nitrite (Negative) Urine Bilirubin (Negative) Urine Urobilinogen (<2.0) mg/dL Ur Leukocyte Esterase (Negative) Urine RBC (0-5) /hpf Urine WBC (0-5) /hpf Ur Squamous Epith Cells (0-4) /hpf Urine Mucus (None) /hpf 04/20/20 04/20/20 04/20/20 Range/Units 13:54 13:54 14:43 WBC (3.8-10.6) k/uL RBC (3.80-5.40) m/uL Hgb (11.4-16.0) gm/dL Hct (34.0-46.0) % MCV (80.0-100.0) fL MCH (25.0-35.0) pg MCHC (31.0-37.0) g/dL RDW (11.5-15.5) % Plt Count (150-450) k/uL MPV Neutrophils % % Lymphocytes % % Monocytes % % Eosinophils % % Basophils % % Neutrophils # (1.3-7.7) k/uL Lymphocytes # (1.0-4.8) k/uL Monocytes # (0-1.0) k/uL Eosinophils # (0-0.7) k/uL Basophils # (0-0.2) k/uL Anisocytosis PT (9.0-12.0) sec INR (<1.2) APTT (22.0-30.0) sec Sodium (137-145) mmol/L Potassium (3.5-5.1) mmol/L Chloride (98-107) mmol/L Carbon Dioxide (22-30) mmol/L Anion Gap mmol/L BUN (7-17) mg/dL Creatinine (0.52-1.04) mg/dL Est GFR (CKD-EPI)AfAm (>60 ml/min/1.73 sqM) Est GFR (CKD-EPI)NonAf (>60 ml/min/1.73 sqM) Glucose (74-99) mg/dL Plasma Lactic Acid [place] 1.3 (0.7-2.0) mmol/L Calcium (8.4-10.2) mg/dL Magnesium (1.6-2.3) mg/dL Total Bilirubin (0.2-1.3) mg/dL AST (14-36) U/L ALT (4-34) U/L Alkaline Phosphatase (38-126) U/L Troponin I <0.012 (0.000-0.034) ng/mL Total Protein (6.3-8.2) g/dL Albumin (3.5-5.0) g/dL Urine Color Yellow Urine Appearance Cloudy H (Clear) Urine pH 6.0 (5.0-8.0) Ur Specific [place] 1.020 (1.001-1.035) Urine Protein Trace H (Negative) Urine Glucose (UA) Negative (Negative) Urine Ketones Negative (Negative) Urine Blood Negative (Negative) Urine Nitrite Negative (Negative) Urine Bilirubin Negative (Negative) Urine Urobilinogen 3.0 (<2.0) mg/dL Ur Leukocyte Esterase Moderate H (Negative) Urine RBC 1 (0-5) /hpf Urine WBC 10 H (0-5) /hpf Ur Squamous Epith Cells 6 H (0-4) /hpf Urine Mucus Rare H (None) /hpf Disposition Clinical Impression: Dehydration, Orthostatic hypotension, Bradycardia Disposition: ADMITTED IP TO THIS [facility] Condition: Stable Is patient prescribed a controlled substance at d/c from ED?: No Referrals: Joey Valdez MD [Primary Care Provider] - 1-2 days Decision to Admit Reason: Admit from EC Decision Date: 04/20/20 Decision Time: 15:01
[2020-04-20 14:08] LABS: Anisocytosis Slight; Basophils % (A) 1 %; Eosinophils # (A) 0.2 k/uL (0-0.7); Eosinophils % (A) 5 %; HCT 31.5 % (34.0-46.0); HGB 10.9 gm/dL (11.4-16.0); Lymphocytes # (A) 2.1 k/uL (1.0-4.8); Lymphocytes % (A) 41 %; MCH 32.1 pg (25.0-35.0); MCHC 34.5 g/dL (31.0-37.0); MCV 92.8 fL (80.0-100.0); Mean Platelet Volume 7.2; Monocytes # (A) 0.5 k/uL (0-1.0); Monocytes % (A) 9 %; Neutrophils # (A) 2.2 k/uL (1.3-7.7); Neutrophils % (A) 43 %; Platelet Count 219 k/uL (150-450); RBC 3.39 m/uL (3.80-5.40); RDW 16.5 % (11.5-15.5); WBC 5.1 k/uL (3.8-10.6)
[2020-04-20 14:16] LABS: INR 1.3 (<1.2); Partial Thromboplastin Time 27.9 sec (22.0-30.0); Prothrombin Time 13.5 sec (9.0-12.0)
[2020-04-20 14:17] LABS: Albumin 3.7 g/dL (3.5-5.0); Calcium 8.2 mg/dL (8.4-10.2); Potassium 4.2 mmol/L (3.5-5.1); Total Bilirubin 0.5 mg/dL (0.2-1.3); Total Protein 6.6 g/dL (6.3-8.2)
[2020-04-20 14:51] LABS: Appearance,Urine Cloudy (Clear); Color,Urine Yellow; Glucose,Urine (UA) Negative (Negative); Ketones,Urine Negative (Negative); Protein,Urine Trace (Negative)
[2020-04-20 14:52] LABS: Bilirubin,Urine Negative (Negative); Blood,Urine Negative (Negative); Leukocyte Esterase,Urine Moderate (Negative); Mucus,Urine Rare /hpf; Nitrite,Urine Negative (Negative); RBC,Urine 1 /hpf (0-5); Squamous Epithelial Cell,Urine 6 /hpf (0-4); WBC,Urine 10 /hpf (0-5)
[2020-04-20] MEDS ORDERED: NALOXONE 0.4 MG/ML 1 ML VIAL IV PRN (14:53)
[2020-04-20] MEDS ORDERED: ACETAMINOPHEN TAB 325 MG TAB PO PRN (14:53)
[2020-04-20] MEDS: SODIUM CHLORIDE 0.9% 1,000 ML IV SCH (15:18)
[2020-04-20] MEDS ORDERED: tiZANidine 4 MG TAB PO PRN (21:22)
[2020-04-20] MEDS ORDERED: lisinopriL 20 MG TAB PO STA (21:34)
--- NOTE | 2020-04-20 21:52 | P.HPIM ---
History of Present Illness This is a pleasant 74 years old female with past medical history of coronary artery disease, atrial fibrillation, hypertension, osteoarthritis, peptic ulcer disease, chronic back pain, history of laryngeal cancer about 20 years ago. She is a patient of Dr. Chow. She presents because of dizziness like presyncope for about 2 days without actual loss of consciousness. Patient denies chest pain or dyspnea or coughing. No palpitations. However patient has been complaining of from vomiting for several months about once a day however over the last muscle towards wants to twice a day, she eats one meal a day and when she vomits sometimes she only drinks fluids. However she denies abdominal pain She denies smoking alcohol could On admission heart rate was 45. Rest of Vitas looks stable and patient is afebrile. Labs including CBC and INR are unremarkable. Sodium is low at 129, creatinine is slightly elevated at 1.09. Liver enzymes not elevated. Urine analysis looks concentrated sample, it has moderate leukocyte esterase. Coronavirus nondetected. EKG showing bradycardia at 48 with wide complex QRS possible bundle branch block with T-wave inversion and no ST segment abnormality In the emergency room patient was given 1 L of normal saline and started at 100 mL per hour Review of Systems CONSTITUTIONAL: No fever, no malaise, no fatigue. HEENT: No recent visual problems or hearing problems. Denied any sore throat. CARDIOVASCULAR: No orthopnea, PND, no palpitations, no syncope. PULMONARY: No shortness of breath, no cough, no hemoptysis. GASTROINTESTINAL: No diarrhea, no abdominal pain. Normoactive bowel sounds. NEUROLOGICAL: No headaches, no weakness, no numbness. HEMATOLOGICAL: Denies any bleeding or petechiae. GENITOURINARY: Denies any burning micturition, frequency, or urgency. MUSCULOSKELETAL/RHEUMATOLOGICAL: Denies any joint pain, swelling, or any muscle pain. ENDOCRINE: Denies any polyuria or polydipsia. 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 History of Any Multi-Drug Resistant Organisms: MRSA Date of last positivie culture/infection: 1997 MDRO Source:: left shoulder Past Surgical History: Bariatric Surgery, Cholecystectomy, Heart Cathete rization, Hysterectomy, Joint Replacement, Orthopedic Surgery Additional Past Surgical History / Comment(s): Bilateral knee replacement, left shoulder rotator cuff surgery, gastric bypass, D&C, EGD/colonoscopy, laryngeal tumor removed, Ganglion Cysts both wrists.PAIN CLINIC INJECTIONS, Past Anesthesia/Blood Transfusion Reactions: No Reported Reaction Date of Last Stent Placement:: 2012 Smoking Status: Former smoker - Past Family History Mother Family Medical History: Cancer, Congestive Heart Failure (CHF), Diabetes Mellitus, Hypertension Additional Family Medical History / Comment(s): Mother passed at 93. Father Family Medical History: Myocardial Infarction (NV) Additional Family Medical History / Comment(s): Father of a NV at the age of 39 yrs. Sister(s) Family Medical History: Cancer Brother(s) Family Medical History: Cancer, Myocardial Infarction (NV) Medications and Allergies Home Medications Medication Instructions Recorded Confirmed Type Levothyroxine Sodium [Synthroid] 200 mcg PO DAILY 01/12/19 04/20/20 History Omeprazole 20 mg PO BID 04/12/20 04/20/20 History diazePAM [Valium] 5 mg PO HS 04/12/20 04/20/20 History Hydrocodone/Acetaminophen [[place] 1 tab PO Q6H PRN 04/20/20 04/20/20 History 5-325] Venlafaxine HCl ER [Effexor Xr] 37.5 mg PO DAILY 04/20/20 04/20/20 History lisinopriL [Zestril] 20 mg PO DAILY 04/20/20 04/20/20 History lisinopriL [Zestril] 20 mg PO DAILY PRN 04/20/20 04/20/20 History tiZANidine [Zanaflex] 4 mg PO BID PRN 04/20/20 04/20/20 History Allergies Allergy/AdvReac Type Severity Reaction Status Date / Time vancomycin Allergy Rash/Hives Verified 04/20/20 13:56 Physical Exam Vitals: Vital Signs Temp Pulse Pulse Resp BP BP Pulse Ox 04/20/20 17:30 97.8 F 52 L 16 183/79 93 L 04/20/20 15:07 45 L 16 126/69 98 04/20/20 14:26 46 L 18 111/59 98 04/20/20 14:01 52 L 18 103/70 95 04/20/20 14:00 50 L 18 127/73 95 04/20/20 13:59 49 L 18 142/67 94 L 04/20/20 13:15 97.7 F 51 L 16 100/63 95 Intake and Output 04/20/20 04/20/20 04/20/20 06:59 14:59 22:59 Other: Weight 84.822 kg 84.822 kg GENERAL: The patient is alert and oriented x3, not in any acute distress. Well developed, well nourished. HEENT: Pupils are round and equally reacting to light. EOMI. No scleral icterus. No conjunctival pallor. Normocephalic, atraumatic. No pharyngeal erythema. No thyromegaly. CARDIOVASCULAR: S1 and S2 present. No murmurs, rubs, or gallops. PULMONARY: Chest is clear to auscultation, no wheezing or crackles. ABDOMEN: Soft, nontender, nondistended, normoactive bowel sounds. No palpable organomegaly. MUSCULOSKELETAL: No joint swelling or deformity. EXTREMITIES: No cyanosis, clubbing, or pedal edema. NEUROLOGICAL: Gross neurological examination did not reveal any focal deficits. SKIN: No rashes. No petechiae Results CBC & Chem 7: 04/20/20 13:54 04/20/20 13:54 Labs: Abnormal Lab Results - Last 24 Hours (Table) 04/20/20 04/20/20 04/20/20 Range/Units 13:54 13:54 13:54 RBC 3.39 L (3.80-5.40) m/uL Hgb 10.9 L (11.4-16.0) gm/dL Hct 31.5 L (34.0-46.0) % RDW 16.5 H (11.5-15.5) % PT 13.5 H (9.0-12.0) sec INR 1.3 H (<1.2) Sodium 129 L (137-145) mmol/L Creatinine 1.09 H (0.52-1.04) mg/dL Glucose 112 H (74-99) mg/dL Calcium 8.2 L (8.4-10.2) mg/dL Urine Appearance (Clear) Urine Protein (Negative) Ur Leukocyte Esterase (Negative) Urine WBC (0-5) /hpf Ur Squamous Epith Cells (0-4) /hpf Urine Mucus (None) /hpf 04/20/20 Range/Units 14:43 RBC (3.80-5.40) m/uL Hgb (11.4-16.0) gm/dL Hct (34.0-46.0) % RDW (11.5-15.5) % PT (9.0-12.0) sec INR (<1.2) Sodium (137-145) mmol/L Creatinine (0.52-1.04) mg/dL Glucose (74-99) mg/dL Calcium (8.4-10.2) mg/dL Urine Appearance Cloudy H (Clear) Urine Protein Trace H (Negative) Ur Leukocyte Esterase Moderate H (Negative) Urine WBC 10 H (0-5) /hpf Ur Squamous Epith Cells 6 H (0-4) /hpf Urine Mucus Rare H (None) /hpf Thrombosis Risk Factor Assmnt - Choose All That Apply Each Factor Represents 1 point: Obesity (BMI >25) Other Risk Factors: Yes Each Risk Factor Represents 2 Points: Age 61-74 years Other congenital or acquired thrombophilia - If yes, enter type in comment: No Thrombosis Risk Factor Assessment Total Risk Factor Score: 3 Thrombosis Risk Factor Assessment Level: Moderate Risk Assessment and Plan Assessment: Presyncope and dizziness, associated with postural hypotension Bradycardia Ongoing vomiting for several months Hypertension Atrial fibrillation History of coronary artery disease Osteoarthritis History of peptic ulcer disease Chronic back pain History of laryngeal cancer about 20 years ago Obesity with BMI of 35.3 Plan: This is a pleasant 74 years female presents with presyncope and vomiting. Continue with IV fluids, telemetry cardiac monitoring. Cardiology consult. Also will call GI consult for ongoing vomiting Labs and medication were reviewed.. Continue same treatment. Continue with symptomatic treatment. Resume home medication. Monitor lytes and vitals. DVT and GI prophylaxis. Further recommendations depends on the clinical course of the patient DVT prophylaxis: Subcutaneous heparin GI Prophylaxis: Pepcid PT/OT: Pending Prognosis is guarded
[2020-04-20] MEDS: HYDROcodone/APAP 5-325MG 1 EACH TAB PO PRN (22:29)
--- NOTE | 2020-04-20 23:35 | XR ---
EXAMINATION TYPE: XR chest 2V DATE OF EXAM: 04/20/2020 COMPARISON: 03/26/2018 HISTORY: Dizziness TECHNIQUE: 2 views FINDINGS: There is no heart failure nor confluent pneumonic infiltrate. There is left shoulder prosth esis. Costophrenic angles are clear. There are no hilar masses. There are chest leads. IMPRESSION: No active cardiopulmonary disease. Normal heart. No change.
[2020-04-21 01:08] VITALS: RESP 18
[2020-04-21] MEDS: SODIUM CHLORIDE 0.9% 1,000 ML IV SCH ×2 (06:57→21:23)
[2020-04-21] MEDS: LEVOTHYROXINE 100 MCG TAB PO SCH (06:57)
[2020-04-21] MEDS: HYDROcodone/APAP 5-325MG 1 EACH TAB PO PRN ×3 (06:59→21:16)
[2020-04-21 07:35] LABS: Anisocytosis Slight; Basophils % (A) 1 %; Eosinophils # (A) 0.2 k/uL (0-0.7); Eosinophils % (A) 6 %; HCT 32.2 % (34.0-46.0); HGB 10.3 gm/dL (11.4-16.0); Lymphocytes # (A) 1.8 k/uL (1.0-4.8); Lymphocytes % (A) 41 %; MCH 30.7 pg (25.0-35.0); MCHC 32.2 g/dL (31.0-37.0); MCV 95.3 fL (80.0-100.0); Mean Platelet Volume 7.3; Monocytes # (A) 0.4 k/uL (0-1.0); Monocytes % (A) 9 %; Neutrophils # (A) 1.7 k/uL (1.3-7.7); Neutrophils % (A) 40 %; Platelet Count 205 k/uL (150-450); RBC 3.37 m/uL (3.80-5.40); RDW 16.7 % (11.5-15.5); WBC 4.3 k/uL (3.8-10.6)
[2020-04-21 07:48] LABS: Albumin 3.2 g/dL (3.5-5.0); Calcium 7.9 mg/dL (8.4-10.2); Magnesium 1.9 mg/dL (1.6-2.3); Potassium 3.8 mmol/L (3.5-5.1); Total Bilirubin 0.5 mg/dL (0.2-1.3); Total Protein 5.9 g/dL (6.3-8.2)
[2020-04-21] MEDS ORDERED: ONDANSETRON 4 MG/2 ML VIAL IVP PRN (08:37)
[2020-04-21] MEDS: lisinopriL 20 MG TAB PO SCH (08:51)
[2020-04-21] MEDS: METOCLOPRAMIDE 5 MG/ML 2 ML VIAL IVP PRN ×2 (08:51→21:17)
[2020-04-21] MEDS: VENLAFAXINE HCL ER 37.5 MG CAP PO SCH (08:51)
--- NOTE | 2020-04-21 10:54 | ECHOF ---
Referral Reason:dizziness MEASUREMENTS -------- HEIGHT: 154.9 cm WEIGHT: 96.6 kg BP: 110/61 RVIDd: 2.9 cm (< 3.3) IVSd: 1.2 cm (0.6 - 1.1) LVIDd: 4.8 cm (3.9 - 5.3) LVPWd: 1.5 cm (0.6 - 1.1) IVSs: 1.4 cm LVIDs: 4.2 cm LVPWs: 1.2 cm LAESV Index (A-L): 18.66 ml/m Ao Diam: 2.7 cm (2.0 - 3.7) AV Cusp: 1.6 cm (1.5 - 2.6) LA Diam: 2.7 cm (2.7 - 3.8) MV EXCURSION: 11.106 mm (> 18.000) MV EF SLOPE: 31 mm/s (70 - 150) EPSS: 0.9 cm MV E Trent: 0.59 m/s MV DecT: 329 ms MV A Trent: 0.89 m/s MV E/A Ratio: 0.66 AR PHT: 1511 ms RAP: 5.00 mmHg RVSP: 9.94 mmHg FINDINGS -------- This was a technically difficult study with suboptimal views. The left ventricular size is normal. There is mild concentric left ventricular hypertrophy. Overa ll left ventricular systolic function is moderate-severely impaired with, an EF between 30 - 35 %. Normal LAP Grade 1 Diastolic Dysfunction. The right ventricle is normal in size. The left atrial size is normal. Normal LA size by volume 22+/-6 ml/m2. The right atrial size is normal. Lumason used The aortic valve is trileaflet and appears structurally normal. There is mild aortic regurgitation. The mitral valve is normal. The mitral valve leaflets are mildly thickened. There is trace mitral regurgitation. The tricuspid valve appears structurally normal. Mild tricuspid regurgitation present. Right vent ricular systolic pressure is normal at < 35 mmHg. There is no pulmonic regurgitation present. The aortic root size is normal. IVC Not well visulized. There is no pericardial effusion. CONCLUSIONS -------- 1. The left ventricular size is normal. 2. There is mild concentric left ventricular hypertrophy. 3. Overall left ventricular systolic function is moderate-severely impaired with, an EF between 30 - 35 %. 4. Normal LAP Grade 1 Diastolic Dysfunction. 5. There is mild aortic regurgitation. 6. The mitral valve leaflets are mildly thickened. 7. There is trace mitral regurgitation. 8. Mild tricuspid regurgitation present. 9. There is no pericardial effusion. [employer] OPERATOR: Jaclyn Jones RDCS
--- NOTE | 2020-04-21 12:00 | P.PN ---
Subjective This is a pleasant 74 years old female with past medical history of coronary artery disease, atrial fibrillation, hypertension, osteoarthritis, peptic ulcer disease, chronic back pain, history of laryngeal cancer about 20 years ago. She is a patient of Dr. Chow. She presents because of dizziness like presyncope for about 2 days without actual loss of consciousness. Patient denies chest pain or dyspnea or coughing. No palpitations. However patient has been complaining of from vomiting for several months about once a day however over the last muscle towards wants to twice a day, she eats one meal a day and when she vomits sometimes she only drinks fluids. However she denies abdominal pain She denies smoking alcohol could On admission heart rate was 45. Rest of Vitas looks stable and patient is afebrile. Labs including CBC and INR are unremarkable. Sodium is low at 129, creatinine is slightly elevated at 1.09. Liver enzymes not elevated. Urine analysis looks concentrated sample, it has moderate leukocyte esterase. Coronavirus nondetected. EKG showing bradycardia at 48 with wide complex QRS possible bundle branch block with T-wave inversion and no ST segment abnormality In the emergency room patient was given 1 L of normal saline and started at 100 mL per hour 04/21/2020 Patient awake with no more dizziness or presyncope. She still have vomiting and she vomited once this morning and treated with Zofran. She denies chest pain or dyspnea However she complains from periumbilical abdominal pain and suprapubic pain whi ch is started today. Her orthostatic vitals are normal today. She still slightly bradycardic 52-56. CBC and BMP were unremarkable, sodium slightly improved to 1:30, creatinine slightly better at 0.9 which is within the reference range Chest x-ray: No acute process. Echocardiogram showing ejection fraction of 30- 35% with normal LAP grade 1 diastolic dysfunction. We will check KUB And we got to reorder urinalysis patient remains on normal saline at 75 mL/h Objective - Vital Signs Vital signs: Vital Signs Temp 97.6 F 04/21/20 09:10 Pulse 54 L 04/21/20 09:10 Resp 18 04/21/20 09:10 BP 156/74 04/21/20 09:10 Pulse Ox 100 04/21/20 09:10 Intake & Output 04/20/20 04/21/20 04/21/20 18:59 06:59 18:59 Intake Total 375 Output Total 900 Balance -525 Weight 84.822 kg 96.8 kg Intake: Intake, IV Titration 375 Amount Sodium Chloride 0.9% 1, 375 000 ml @ 75 mls/hr IV . [id number] [facility] Rx#:[id number] Output: Urine 900 - Exam GENERAL: The patient is alert and oriented x3, not in any acute distress. Well developed, well nourished. HEENT: Pupils are round and equally reacting to light. EOMI. No scleral icterus. No conjunctival pallor. Normocephalic, atraumatic. No pharyngeal erythema. No thyromegaly. CARDIOVASCULAR: S1 and S2 present. No murmurs, rubs, or gallops. PULMONARY: Chest is clear to auscultation, no wheezing or crackles. ABDOMEN: Soft, nontender, nondistended, normoactive bowel sounds. No palpable organomegaly. MUSCULOSKELETAL: No joint swelling or deformity. EXTREMITIES: No cyanosis, clubbing, or pedal edema. NEUROLOGICAL: Gross neurological examination did not reveal any focal deficits. SKIN: No rashes. No petechiae - Labs CBC & Chem 7: 04/21/20 06:53 04/21/20 06:53 Labs: Abnormal Lab Results - Last 24 Hours (Table) 04/20/20 04/20/20 04/20/20 Range/Units 13:54 13:54 13:54 RBC 3.39 L (3.80-5.40) m/uL Hgb 10.9 L (11.4-16.0) gm/dL Hct 31.5 L (34.0-46.0) % RDW 16.5 H (11.5-15.5) % PT 13.5 H (9.0-12.0) sec INR 1.3 H (<1.2) Sodium 129 L (137-145) mmol/L Carbon Dioxide (22-30) mmol/L Creatinine 1.09 H (0.52-1.04) mg/dL Glucose 112 H (74-99) mg/dL Calcium 8.2 L (8.4-10.2) mg/dL Total Protein (6.3-8.2) g/dL Albumin (3.5-5.0) g/dL Urine Appearance (Clear) Urine Protein (Negative) Ur Leukocyte Esterase (Negative) Urine WBC (0-5) /hpf Ur Squamous Epith Cells (0-4) /hpf Urine Mucus (None) /hpf 04/20/20 04/21/20 04/21/20 Range/Units 14:43 06:53 06:53 RBC 3.37 L (3.80-5.40) m/uL Hgb 10.3 L (11.4-16.0) gm/dL Hct 32.2 L (34.0-46.0) % RDW 16.7 H (11.5-15.5) % PT (9.0-12.0) sec INR (<1.2) Sodium 130 L (137-145) mmol/L Carbon Dioxide 20 L (22-30) mmol/L Creatinine (0.52-1.04) mg/dL Glucose (74-99) mg/dL Calcium 7.9 L (8.4-10.2) mg/dL Total Protein 5.9 L (6.3-8.2) g/dL Albumin 3.2 L (3.5-5.0) g/dL Urine Appearance Cloudy H (Clear) Urine Protein Trace H (Negative) Ur Leukocyte Esterase Moderate H (Negative) Urine WBC 10 H (0-5) /hpf Ur Squamous Epith Cells 6 H (0-4) /hpf Urine Mucus Rare H (None) /hpf Assessment and Plan Assessment: Presyncope and dizziness, associated with postural hypotension, improved Bradycardia Ongoing vomiting for several months Hypertension Atrial fibrillation History of coronary artery disease Osteoarthritis History of peptic ulcer disease Chronic back pain History of laryngeal cancer about 20 years ago Obesity with BMI of 35.3 Plan: This is a pleasant 74 years female presents with presyncope and vomiting. Continue with IV fluids, telemetry cardiac monitoring. Cardiology consult. Also will call GI consult for ongoing vomiting Labs and medication were reviewed.. Continue same treatment. Continue with symptomatic treatment. Resume home medication. Monitor lytes and vitals. DVT and GI prophylaxis. Further recommendations depends on the clinical course of the patient DVT prophylaxis: Subcutaneous heparin GI Prophylaxis: Pepcid PT/OT: Pending Prognosis is guarded
[2020-04-21] MEDS: PANTOPRAZOLE 40 MG/10 ML VIAL IVP SCH ×2 (12:18→21:17)
--- NOTE | 2020-04-21 12:25 | XR ---
EXAMINATION TYPE: XR KUB DATE OF EXAM: 04/21/2020 12:16 PM CLINICAL HISTORY: Vomiting and pain. TECHNIQUE: Two supine KUB images of the abdomen are obtained. COMPARISON: CT abdomen and pelvis 9 days ago. FINDINGS: Scattered gas is seen in non-distended small bowel loops. Gas and fecal material is seen in non-distended colon. Single gas prominent colonic loop left abdomen identified more prominent versus most recent CT. Extensive surgical changes epigastric region redemonstrated. Cholecystectomy clips r edemonstrated. Underlying dextroconvex scoliosis is noted. Surgical sutures left lower quadrant immed iately are redemonstrated. Scattered right-sided pelvic phleboliths. Lung bases remain clear. IMPRESSION: Overall nonspecific but favor nonobstructive bowel gas pattern currently. Single gas prominent/dilated colonic loop left abdomen. Left-sided bowel surgical change is redemonst rated.
[2020-04-21] MEDS ORDERED: ALPRAZolam 0.25 MG TAB PO PRN (13:20)
[2020-04-21] MEDS ORDERED: NITROGLYCERIN SL TABS 0.4 MG TAB SUBLINGUAL PRN (13:20)
--- NOTE | 2020-04-21 13:29 | P.CRDCN ---
History of Present Illness Consult date: 04/21/20 History of present illness: CHIEF COMPLAINT: Near-syncope HISTORY OF PRESENT ILLNESS: This is a 74-year-old female with a past medical history significant for hypertension and hyperlipidemia. Patient used to follow in the office with Dr. Marty Caruso. We have been asked to see the patient in consultation for near-syncope and bradycardia. Patient examined and spreads bedside. Patient states she has been feeling dizzy over the past day. She states every time she attempts to stand up out of bed she feels dizzy. She states she would go lay down for a little while and her symptoms would resolve in the next time she stood up to get out of bed she became dizzy again. She denies chest pain or pressure. She denies shortness of breath. She states her dizziness has now resolved. Per nursing, orthostatics were done overnight and were positive but they are not documented. DIAGNOSTICS: EKG reveals sinus bradycardia with first-degree AV block Chest xray no active cardiopulmonary disease Laboratory data: WBC 4.3. Hemoglobin 10.3. Platelet count 205. Sodium 130. Potassium 3.8. BUN 12. Creatinine 0.97. Magnesium 1.9. Troponin negative 1. Current home cardiac medications include lisinopril 20 mg daily Echocardiogram completed in 2018 reveals an ejection fraction 55-60% Echocardiogram completed today reveals ejection fraction 30-35%, trace mitral regurgitation and mild tricuspid regurgitation REVIEW OF SYSTEMS: At the time of my exam: CONSTITUTIONAL: Denies fever or chills. HEENT: Denies blurred vision, vision changes, or eye pain. Denies hemoptysis CARDIOVASCULAR: Denies chest pain, orthopnea, PND or palpitations RESPIRATORY: No shortness of breath. GASTROINTESTINAL: Denies abdominal pain. Denies nausea or vomiting. HEMATOLOGIC: Denies bleeding disorders. GENITOURINARY: Denies any blood in urine. SKIN: Denies pruitis. Denies rash. PHYSICAL EXAM: VITAL SIGNS: Reviewed. GENERAL: Well-developed in no acute distress. HEENT: Head is normocephalic. Pupils are equal, round. Sclerae anicteric. Mucous membranes of the mouth are moist. Neck supple. No JVD or thyromegaly LUNGS: Respirations even and unlabored. Lungs essentially clear to auscultation bilaterally. HEART: Regular rate and rhythm. S1 and S2 heard. ABDOMEN: Soft. Nondistended. Nontender. EXTREMITIES: Normal range of motion. No clubbing or cyanosis. Peripheral pul ses intact. No lower extremity edema NEUROLOGIC: Awake and alert. Oriented x 3. ASSESSMENT: Dizziness Presyncope Sinus bradycardia Orthostatic hypotension New cardiomyopathy, EF 30-35%, unclear if ischemic or nonischemic Hypertension Hyperlipidemia PLAN: Continue home dose of lisinopril Will hold off on adding beta jarod to patient's regimen secondary to bradycardia Patient will be scheduled for cardiac catheterization tomorrow with Dr. Gramajo secondary to new cardiomyopathy Nurse practitioner note has been reviewed by physician. Signing provider agrees with the documented findings, assessment, and plan of care. 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 History of Any Multi-Drug Resistant Organisms: MRSA Date of last positivie culture/infection: 1997 MDRO Source:: left shoulder Past Surgical History: Bariatric Surgery, Cholecystectomy, Heart Catheterization, Hysterectomy, Joint Replacement, Orthopedic Surgery Additional Past Surgical History / Comment(s): Bilateral knee replacement, left shoulder rotator cuff surgery, gastric bypass, D&C, EGD/colonoscopy, laryngeal tumor removed, Ganglion Cysts both wrists.PAIN CLINIC INJECTIONS, Past Anesthesia/Blood Transfusion Reactions: No Reported Reaction Date of Last Stent Placement:: 2012 Smoking Status: Former smoker - Past Family History Mother Family Medical History: Cancer, Congestive Heart Failure (CHF), Diabetes Mellitus, Hypertension Additional Family Medical History / Comment(s): Mother passed at 93. Father Family Medical History: Myocardial Infarction (PA) Additional Family Medical History / Comment(s): Father of a PA at the age of 39 yrs. Sister(s) Family Medical History: Cancer Brother(s) Family Medical History: Cancer, Myocardial Infarction (PA) Medications and Allergies Home Medications Medication Instructions Recorded Confirmed Type Levothyroxine Sodium [Synthroid] 200 mcg PO DAILY 01/12/19 04/20/20 History Omeprazole 20 mg PO BID 04/12/20 04/20/20 History diazePAM [Valium] 5 mg PO HS 04/12/20 04/20/20 History Hydrocodone/Acetaminophen [[place] 1 tab PO Q6H PRN 04/20/20 04/20/20 History 5-325] Venlafaxine HCl ER [Effexor Xr] 37.5 mg PO DAILY 04/20/20 04/20/20 History lisinopriL [Zestril] 20 mg PO DAILY 04/20/20 04/20/20 History lisinopriL [Zestril] 20 mg PO DAILY PRN 04/20/20 04/20/20 History tiZANidine [Zanaflex] 4 mg PO BID PRN 04/20/20 04/20/20 History Allergies Allergy/AdvReac Type Severity Reaction Status Date / Time vancomycin Allergy Rash/Hives Verified 04/20/20 13:56 Physical Exam Vitals: Vital Signs Temp Pulse Pulse Resp BP BP BP 04/21/20 09:10 97.6 F 54 L 18 139/72 178/85 04/21/20 04:00 52 L 18 04/21/20 01:45 56 L 18 04/21/20 00:00 97.3 F L 56 L 18 04/20/20 20:10 97.8 F 59 L 20 04/20/20 17:30 97.8 F 52 L 16 04/20/20 15:07 45 L 16 126/69 04/20/20 14:26 46 L 18 111/59 04/20/20 14:01 52 L 18 103/70 04/20/20 14:00 50 L 18 127/73 04/20/20 13:59 49 L 18 142/67 04/20/20 13:15 97.7 F 51 L 16 100/63 BP BP Pulse Ox 04/21/20 09:10 156/74 100 04/21/20 04:00 110/61 95 04/21/20 01:45 04/21/20 00:00 174/75 94 L 04/20/20 20:10 196/88 97 04/20/20 17:30 183/79 93 L 04/20/20 15:07 98 04/20/20 14:26 98 04/20/20 14:01 95 04/20/20 14:00 95 04/20/20 13:59 94 L 04/20/20 13:15 95 Intake and Output 04/20/20 04/21/2004/21/21 22:59 06:59 14:59 Intake Total 375 540 Output Total 900 Balance -525 540 Intake: Intake, IV Titration 375 Amount Sodium Chloride 0.9% 1, 375 000 ml @ 75 mls/hr IV . [id number] [facility] Rx#:[id number] Oral 540 Output: Urine 900 Other: # Voids 2 Weight 84.822 kg 96.8 kg Results 04/21/20 06:53 04/21/20 06:53 Cardiac Enzymes 04/20/20 04/20/20 04/21/20 Range/Units 13:54 13:54 06:53 AST 32 28 (14-36) U/L Troponin I <0.012 (0.000-0.034) ng/mL Coagulation 04/20/20 Range/Units 13:54 PT 13.5 H (9.0-12.0) sec APTT 27.9 (22.0-30.0) sec CBC 04/20/20 04/21/20 Range/Units 13:54 06:53 WBC 5.1 4.3 (3.8-10.6) k/uL RBC 3.39 L 3.37 L (3.80-5.40) m/uL Hgb 10.9 L 10.3 L (11.4-16.0) gm/dL Hct 31.5 L 32.2 L (34.0-46.0) % Plt Count 219 205 (150-450) k/uL Comprehensive Metabolic Panel 04/20/20 04/21/20 Range/Units 13:54 06:53 Sodium 129 L 130 L (137-145) mmol/L Potassium 4.2 3.8 (3.5-5.1) mmol/L Chloride 101 104 (98-107) mmol/L Carbon Dioxide 22 20 L (22-30) mmol/L BUN 15 12 (7-17) mg/dL Creatinine 1.09 H 0.97 (0.52-1.04) mg/dL Glucose 112 H 94 (74-99) mg/dL Calcium 8.2 L 7.9 L (8.4-10.2) mg/dL AST 32 28 (14-36) U/L ALT 13 11 (4-34) U/L Alkaline Phosphatase 60 57 (38-126) U/L Total Protein 6.6 5.9 L (6.3-8.2) g/dL Albumin 3.7 3.2 L (3.5-5.0) g/dL Current Medications Generic Name Dose Route Start Last Admin Trade Name Freq PRN Reason Stop Dose Admin Acetaminophen 650 mg 04/20/20 14:53 04/20/20 16:17 Acetaminophen Tab 325 Mg Tab PO 650 mg Q6HR PRN Administration Mild Pain or Fever > 100.5 Hydrocodone Bitart/Acetaminophen 1 each 04/20/20 21:29 04/21/20 06:59 Hydrocodone/Apap 5-325mg 1 Each Tab PO 1 each Q6HR PRN Administration Pain Sodium Chloride 1,000 mls @ 75 mls/hr 04/20/20 15:00 04/21/20 06:57 Saline 0.9% IV 75 mls/hr .[id number] [facility] Administration Levothyroxine Sodium 200 mcg 04/21/20 06:30 04/21/20 06:57 Levothyroxine 100 Mcg Tab PO 200 mcg DAILY@0630 [facility] Administration Lisinopril 20 mg 04/21/20 09:00 04/21/20 08:51 Lisinopril 20 Mg Tab PO 20 mg DAILY [facility] Administration Metoclopramide HCl 5 mg 04/21/20 08:40 04/21/20 08:51 Metoclopramide 5 Mg/Ml 2 Ml Vial IVP 5 mg Q6HR PRN Administration Nausea And Vomiting Naloxone HCl 0.2 mg 04/20/20 14:53 Naloxone 0.4 Mg/Ml 1 Ml Vial IV Q2M PRN Opioid Reversal Ondansetron HCl 4 mg 04/21/20 08:37 Ondansetron 4 Mg/2 Ml Vial IVP Q6HR PRN Nausea And Vomiting Pantoprazole Sodium 40 mg 04/21/20 11:30 04/21/20 12:18 Pantoprazole 40 Mg/10 Ml Vial IVP 40 mg BID [facility] Administration Tizanidine HCl 4 mg 04/20/20 21:22 04/20/20 22:40 Tizanidine 4 Mg Tab PO 4 mg BID PRN Administration Muscle Spasm Venlafaxine HCl 37.5 mg 04/21/20 09:00 04/21/20 08:51 Venlafaxine Hcl Er 37.5 Mg Cap PO 37.5 mg DAILY [facility] Administration Intake and Output 04/20/20 04/21/20 04/21/20 22:59 06:59 14:59 Intake Total 375 540 Output Total 900 Balance -525 540 Intake: Intake, IV Titration 375 Amount Sodium Chloride 0.9% 1, 375 000 ml @ 75 mls/hr IV . [id number] [facility] Rx#:[id number] Oral 540 Output: Urine 900 Other: # Voids 2 Weight 84.822 kg 96.8 kg 04/21/20 06:53 04/21/20 06:53
[2020-04-21 15:17] LABS: Appearance,Urine Clear (Clear); Bilirubin,Urine Negative (Negative); Blood,Urine Trace (Negative); Color,Urine Light Yellow; Glucose,Urine (UA) Negative (Negative); Ketones,Urine Negative (Negative); Leukocyte Esterase,Urine Moderate (Negative); Nitrite,Urine Negative (Negative); Protein,Urine Negative (Negative); RBC,Urine <1 /hpf (0-5); Specific Gravity,Urine 1.006 (1.001-1.035); Squamous Epithelial Cell,Urine 1 /hpf (0-4); Urobilinogen,Urine <2.0 mg/dL (<2.0); WBC,Urine 8 /hpf (0-5)
[2020-04-21] MEDS: ALPRAZolam 0.5 MG TAB PO PRN (16:26)
[2020-04-21] MEDS ORDERED: SODIUM CHLORIDE 0.9% 1,000 ML in EMPTY BAG 1 BAG IV ONE (18:00)
--- NOTE | 2020-04-21 23:07 | P.CONS ---
History of Present Illness - Reason for Consult Consult date: 04/21/20 Nausea and vomiting Requesting physician: Erick E Sheet - Chief Complaint Dizziness - History of Present Illness 74-year-old female with multiple medical comorbidities including coronary artery disease, atrial fibrillation, hypertension, osteoarthritis, prior history of u lcer disease, prior Suzanna-en-Y, chronic back pain, history of laryngeal cancer 20 years ago who presented to the hospital due to complaints of dizziness. The patient reports symptoms of dizziness for approximately 2 days prior to presentation. She denies any syncopal episodes. The patient has been evaluated by the cardiology service with findings of bradycardia and cardiomyopathy with plan for coronary catheterization tomorrow. On questioning the patient also reports episodes of nausea and vomiting. Symptoms have been occurring approximately once daily. No association of her nausea and vomiting with food. She denies any signs or symptoms of bleeding. She denies any abdominal pain at this time. Patient does have a history of persistent peptic ulcer disease located at the anastomotic site of her prior Suzanna-en-Y with findings of ulceration in 09/2016 and 12/2016 on EGD performed for nausea and vomiting. Patient does report PPI therapy at home. Laboratory evaluation on presentation significant for WBC 4.3, hemoglobin 10.3, platelet count 205,000, total bilirubin 0.5, alkaline phosphatase 57, AST 28 and ALP of 11. INR 1.3 on presentation. Review of Systems REVIEW OF SYSTEMS: CONSTITUTIONAL: Denies any fevers, chills, weight change or fatigue. CARDIOVASCULAR: Denies any chest pain, palpitations high or low blood pressures, the patient has been found to be bradycardic. RESPIRATORY: Denies any shortness of breath, hemoptysis or cough. GENITOURINARY: No dysuria or hematuria. MUSCULOSKELETAL: No weakness reported. SKIN: Denies any new rashes or lesions, jaundice or pallor. PSYCHIATRIC: Denies any depression or anxiety. NEUROLOGY: Denies headache, denies any new focal deficits, but the patient does report dizziness. EARS/NOSE/THROAT: No recent hearing change, congestion, nasal discharge or sore throat. EYES: No pain in eyes, discharge or change in vision. GASTROINTESTINAL: As per HPI. 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 History of Any Multi-Drug Resistant Organisms: MRSA Year Discovered:: 1997 MDRO Source:: left shoulder Past Surgical History: Bariatric Surgery, Cholecystectomy, Heart Catheterization, Hysterectomy, Joint Replacement, Orthopedic Surgery Additional Past Surgical History / Comment(s): Bilateral knee replacement, left shoulder rotator cuff surgery, gastric bypass, D&C, EGD/colonoscopy, laryngeal tumor removed, Ganglion Cysts both wrists.PAIN CLINIC INJECTIONS, Past Anesthesia/Blood Transfusion Reactions: No Reported Reaction Date of Last Stent Placement:: 2012 Smoking Status: Former smoker - Past Family History Mother Family Medical History: Cancer, Congestive Heart Failure (CHF), Diabetes Mellitus, Hypertension Additional Family Medical History / Comment(s): Mother passed at 93. Father Family Medical History: Myocardial Infarction (CT) Additional Family Medical History / Comment(s): Father of a CT at the age of 39 yrs. Sister(s) Family Medical History: Cancer Brother(s) Family Medical History: Cancer, Myocardial Infarction (CT) Medications and Allergies Home Medications Medication Instructions Recorded Confirmed Type Levothyroxine Sodium [Synthroid] 200 mcg PO DAILY 01/12/19 04/20/20 History Omeprazole 20 mg PO BID 04/12/20 04/20/20 History diazePAM [Valium] 5 mg PO HS 04/12/20 04/20/20 History Hydrocodone/Acetaminophen [[place] 1 tab PO Q6H PRN 04/20/20 04/20/20 History 5-325] Venlafaxine HCl ER [Effexor Xr] 37.5 mg PO DAILY 04/20/20 04/20/20 History lisinopriL [Zestril] 20 mg PO DAILY 04/20/20 04/20/20 History lisinopriL [Zestril] 20 mg PO DAILY PRN 04/20/20 04/20/20 History tiZANidine [Zanaflex] 4 mg PO BID PRN 04/20/20 04/20/20 History Allergies Allergy/AdvReac Type Severity Reaction Status Date / Time vancomycin Allergy Rash/Hives Verified 04/20/20 13:56 Physical Exam Vitals: Vital Signs Temp Pulse Resp BP BP BP BP 04/21/20 09:10 97.6 F 54 L 18 139/72 178/85 156/74 04/21/20 04:00 52 L 18 110/61 04/21/20 01:45 56 L 18 04/21/20 00:00 97.3 F L 56 L 18 174/75 04/20/20 20:10 97.8 F 59 L 20 196/88 04/20/20 17:30 97.8 F 52 L 16 183/79 Pulse Ox 04/21/20 09:10 100 04/21/20 04:00 95 04/21/20 01:45 04/21/20 00:00 94 L 04/20/20 20:10 97 04/20/20 17:30 93 L Intake and Output 04/21/20 04/21/20 04/21/20 06:59 14:59 22:59 Intake Total 375 900 Output Total 900 Balance -525 900 Intake: Intake, IV Titration 375 Amount Sodium Chloride 0.9% 1, 375 000 ml @ 75 mls/hr IV . [id number] [facility] Rx#:[id number] Oral 900 Output: Urine 900 Other: # Voids 2 Weight 96.8 kg On physical examination, patient appears comfortable in no apparent distress. HEAD: Normocephalic, atraumatic. EYES: No scleral icterus. No conjunctival injection. MOUTH: No lesions, tongue midline. NECK: Trachea midline, no gross abnormalities. CHEST: Decreased air entry in all herrera. HEART: S1-S2 appreciated, bradycardic. ABDOMEN: Soft, nontender to palpation. Bowel sounds are positive. No organome danyel. No guarding or rigidity. EXTREMITIES: No pedal edema. SKIN: No rashes, no jaundice. NEUROLOGIC: Alert and oriented x3. No focal deficits. Results CBC & Chem 7: 04/21/20 06:53 04/21/20 06:53 Labs: Abnormal Lab Results - Last 24 Hours (Table) 04/21/20 04/21/20 04/21/20 Range/Units 06:53 06:53 14:55 RBC 3.37 L (3.80-5.40) m/uL Hgb 10.3 L (11.4-16.0) gm/dL Hct 32.2 L (34.0-46.0) % RDW 16.7 H (11.5-15.5) % Sodium 130 L (137-145) mmol/L Carbon Dioxide 20 L (22-30) mmol/L Calcium 7.9 L (8.4-10.2) mg/dL Total Protein 5.9 L (6.3-8.2) g/dL Albumin 3.2 L (3.5-5.0) g/dL Urine Blood Trace H (Negative) Ur Leukocyte Esterase Moderate H (Negative) Urine WBC 8 H (0-5) /hpf Abdominal x-ray: report reviewed (Nonspecific, nonobstructive bowel gas pattern on x-ray.) Assessment and Plan (1) Vomiting Narrative/Plan: 74-year-old female with multiple medical comorbidities presenting for complaints of dizziness and found to be bradycardic with depressed ejection fraction on echocardiogram. The patient has been evaluated by the cardiology service with plan for cardiac catheterization tomorrow. Patient also reported symptoms of vomiting occurring daily, no association with food. She denies any abdominal pain at this time. The patient has a known history of peptic ulcer disease in the past with prior endoscopy in 09/2016 and 12/2016 showing ulceration at the anastomotic site of her Suzanna-en-Y. She does report PPI therapy at home. Unclear cause of symptoms, x-ray of the abdomen with a nonspecific nonobstructive bowel gas pattern, symptoms may be related to bradycardia, persistent peptic ulcer disease at the anastomotic site, viral gastroenteritis, or other etiology. Current Visit: No Status: Acute Code(s): R11.10 - VOMITING, UNSPECIFIED SNOMED Code(s): 176808621 (2) History of peptic ulcer disease Current Visit: Yes Status: Acute Code(s): Z87.11 - PERSONAL HISTORY OF PEPTIC ULCER DISEASE SNOMED Code(s): 199633966 (3) Bradycardia Current Visit: Yes Status: Acute Code(s): R00.1 - BRADYCARDIA, UNSPECIFIED SNOMED Code(s): 75071142 (4) H/O gastric bypass Current Visit: No Status: Acute Code(s): Z98.890 - OTHER SPECIFIED POSTPROCEDURAL STATES SNOMED Code(s): 152578447 Plan: Supportive care Okay for diet as tolerated Continue other medical management per primary team Cardiology service is following the patient with plan for cardiac catheterization tomorrow Protonix 40 mg twice daily added Carafate 4 times a day before meals at bedtime added No plans for endoscopy at this time Thank you for allowing us to participate in the care of the patient we will continue to follow
[2020-04-22] MEDS: HYDROcodone/APAP 5-325MG 1 EACH TAB PO PRN ×3 (03:06→14:36)
[2020-04-22] MEDS ORDERED: LACTATED RINGERS 1,000 ML IV SCH (06:18)
[2020-04-22] MEDS: LEVOTHYROXINE 100 MCG TAB PO SCH (06:55)
[2020-04-22] MEDS: SUCRALFATE 1 GM TAB PO SCH ×2 (06:55→14:36)
[2020-04-22] MEDS ORDERED: ATORVASTATIN 80 MG TAB PO ONE (07:00)
[2020-04-22] MEDS ORDERED: HEPARIN SODIUM,PORCINE 2,500 UNIT in SODIUM CHLORIDE 0.9% 250 ML IRRIGATION PRN (07:00)
[2020-04-22] MEDS ORDERED: ASPIRIN 325 MG TAB PO ONE (07:00)
[2020-04-22] MEDS ORDERED: HEPARIN SODIUM,PORCINE 10,000 UNIT in SODIUM CHLORIDE 0.9% 1,000 ML IRRIGATION PRN (07:00)
[2020-04-22] MEDS: PANTOPRAZOLE 40 MG/10 ML VIAL IVP SCH (08:38)
[2020-04-22] MEDS: lisinopriL 20 MG TAB PO SCH (08:39)
[2020-04-22] MEDS: ALPRAZolam 0.5 MG TAB PO PRN (08:39)
[2020-04-22 08:42] LABS: Calcium 7.9 mg/dL (8.4-10.2); Potassium 3.8 mmol/L (3.5-5.1)
[2020-04-22] MEDS ORDERED: VERAPAMIL 2.5 MG/ML 2 ML AMP ONE (08:48)
[2020-04-22] MEDS ORDERED: LIDOCAINE 1% INJ 10MG/ML (20 ML MDV) ONE (08:48)
[2020-04-22] MEDS ORDERED: IV FLUID CONTINUATION 1,000 ML IV ONE (08:50)
[2020-04-22] MEDS ORDERED: fentaNYL (PF) 50 MCG/ML 2 ML AMP ONE (09:04)
[2020-04-22] MEDS ORDERED: HEPARIN SODIUM 1,000 UN/ML (10ML VL) ONE (09:04)
[2020-04-22] MEDS: SODIUM CHLORIDE 0.9% 1,000 ML IV SCH (09:08)
[2020-04-22] MEDS ORDERED: fentaNYL (PF) 50 MCG/ML 2 ML AMP IV ONE (09:18)
[2020-04-22] MEDS ORDERED: LIDOCAINE 1% INJ 10MG/ML (20 ML MDV) SQ ONE (09:18)
[2020-04-22] MEDS ORDERED: MIDAZOLAM 2 MG/2 ML VIAL IV ONE (09:18)
[2020-04-22] MEDS ORDERED: VERAPAMIL SYRINGE (5 MG/10 ML) INTRAARTER ONE (09:25)
[2020-04-22] MEDS ORDERED: HEPARIN SODIUM 1,000 UN/ML (10ML VL) IV ONE (09:28)
[2020-04-22] MEDS ORDERED: IOPAMIDOL-370 125ML BTL INJ ONE (09:49)
--- NOTE | 2020-04-22 10:07 | P.CARDCATH ---
Description of Procedure: PROCEDURES PERFORMED: Left catheterization, bilateral coronary angiography INDICATION: Cardiomyopathy HISTORY: Patient is a pleasant 74-year-old female with history of prior cardiac history goes cardiomyopathy, hypertension, hyperlipidemia who presents secondary to episodes of near syncope and bradycardia. This had been going on for last few days. She did have an echocardiogram which showed ejection fraction 30-35% and therefore heart catheterization was recommended. CONSENT:I have discussed the risks, benefits and alternative therapies for the above-mentioned procedure and for both sedation/analgesia as well as necessary blood product administration, if indicated, as they pertain to this patient. The patient has indicated understanding and acceptance of the risks and procedures discussed. PROCEDURE: After the risks, benefits and alternatives of the above mentioned procedure explained in detail with the patient, informed consent was obtained. Patient was taken to the catheterization lab and prepped and draped in usual fashion. 1% lidocaine was used to anesthetize the right radial artery. A 6- Bangl[place]hi sheath was placed in the right radial artery using modified Seldinger technique. Left coronary angiography was performed with a 5-Banglades[place] JL 3.5 catheter and right coronary angiography was performed with a 5-B[place] JR5 catheter in various views. A 5-Bangladeshi pigtail catheter was inserted into the left ventricle and pressure measurements were obtained. Left ventriculography was performed in the KEYS projection with a power injection. The right radial sheath was removed and a TR band was placed with hemostasis achieved. The patient tolerated the procedure well. Patient was transported back to the post catheterization holding area in stable condition. Conscious Sedation: Patient was monitored under the direct supervision of vision of myself for conscious sedation using Versed and fentanyl for a total duration of 34 minutes HEMODYNAMICS: Aorta: 102/64 LV: 108/4, LVEDP 11 SELECTIVE CORONARY ARTERIOGRAPHY: LEFT MAIN: The left main is a large caliber vessel which bifurcates into the LAD and circumflex. There is no significant stenosis. LEFT ANTERIOR DESCENDING CORONARY ARTERY: LAD is a large caliber vessel which wraps around to the apex. There is mild diffuse disease including 30% mid LAD stenosis. LEFT CIRCUMFLEX CORONARY ARTERY: Left circumflex is a moderate caliber vessel with mild luminal irregularities. RIGHT CORONARY ARTERY: The right coronary artery is a large caliber vessel which gives off a PDA and PLV branch and is the dominant vessel. There is diffuse mild disease including a mid RCA 30-40% stenosis. LEFT VENTRICULOGRAPHY: Left ventricular ejection fraction is 45% with with mild apical hypokinesis. There is no significant mitral regurgitation and no significant gradient with pullback across the aortic valve. FINAL IMPRESSION: 1. Diffuse mild CAD as described above. 2. Mildly reduced ejection fraction 45% with mild apical hypokinesis, questionable recovering Takotsubo's cardiomyopathy PLAN: 1. Aggressive risk factor modification per most recent ACC/AHA guidelines. Continue with heart failure regimen. 2. Patient is stable for discharge from a cardiac standpoint.
[2020-04-22] MEDS ORDERED: RX INFO: IV CONTRAST WAS GIVEN 1 EACH MISC MISCELLANE PRN (10:08)
--- NOTE | 2020-04-22 11:44 | P.GSCN ---
History of Present Illness Consult date: 04/22/20 Reason for Consult: Abdominal distention History of present illness: Is a 74-year-old female admitted to the hospital. Patient is currently un dergoing cardiac workup. She scheduled with Dr. Gramajo for a cardiac catheterization this afternoon. Patient had some abdominal pain and a abdominal x-ray performed last night. Shows some distended loops of bowel. Patient is she has some vague abdominal pain. She denies any significant nausea or vomiting. Her pain is quite minimal this morning. 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 History of Any Multi-Drug Resistant Organisms: MRSA Year Discovered:: 1997 MDRO Source:: left shoulder Past Surgical History: Bariatric Surgery, Cholecystectomy, Heart Catheterization, Hysterectomy, Joint Replacement, Orthopedic Surgery Additional Past Surgical History / Comment(s): Bilateral knee replacement, left shoulder rotator cuff surgery, gastric bypass, D&C, EGD/colonoscopy, laryngeal tumor removed, Ganglion Cysts both wrists.PAIN CLINIC INJECTIONS, Past Anesthesia/Blood Transfusion Reactions: No Reported Reaction Date of Last Stent Placement:: 2012 Smoking Status: Former smoker - Past Family History Mother Family Medical History: Cancer, Congestive Heart Failure (CHF), Diabetes Mellitus, Hypertension Additional Family Medical History / Comment(s): Mother passed at 93. Father Family Medical History: Myocardial Infarction ([place]) Additional Family Medical History / Comment(s): Father of a [place] at the age of 39 yrs. Sister(s) Family Medical History: Cancer Brother(s) Family Medical History: Cancer, Myocardial Infarction ([place]) Medications and Allergies Home Medications Medication Instructions Recorded Confirmed Type Levothyroxine Sodium [Synthroid] 200 mcg PO DAILY 01/12/19 04/20/20 History Omeprazole 20 mg PO BID 04/12/20 04/20/20 History diazePAM [Valium] 5 mg PO HS 04/12/20 04/20/20 History Hydrocodone/Acetaminophen [Harrah 1 tab PO Q6H PRN 04/20/20 04/20/20 History 5-325] Venlafaxine HCl ER [Effexor Xr] 37.5 mg PO DAILY 04/20/20 04/20/20 History lisinopriL [Zestril] 20 mg PO DAILY 04/20/20 04/20/20 History lisinopriL [Zestril] 20 mg PO DAILY PRN 04/20/20 04/20/20 History tiZANidine [Zanaflex] 4 mg PO BID PRN 04/20/20 04/20/20 History Allergies Allergy/AdvReac Type Severity Reaction Status Date / Time vancomycin Allergy Rash/Hives Verified 04/20/20 13:56 Surgical - Exam Vital Signs Temp Pulse Resp BP Pulse Ox 97.7 F 51 L 16 100/63 95 04/20/20 13:15 04/20/20 13:15 04/20/20 13:15 04/20/20 13:15 04/20/20 13:15 - General well developed, well nourished, no distress - Eyes PERRL - ENT normal pinna - Neck no masses - Respiratory normal expansion - Cardiovascular Rhythm: regular - Abdomen Obese, mild distention. There is no rebound or guarding Abdomen: soft, non tender Results - Labs 04/21/20 06:53 04/22/20 08:03 Abnormal Lab Results - Last 24 Hours (Table) 04/21/20 04/22/20 Range/Units 14:55 08:03 Sodium 132 L (137-145) mmol/L Carbon Dioxide 21 L (22-30) mmol/L Glucose 101 H (74-99) mg/dL Calcium 7.9 L (8.4-10.2) mg/dL Urine Blood Trace H (Negative) Ur Leukocyte Esterase Moderate H (Negative) Urine WBC 8 H (0-5) /hpf Diabetes panel 04/22/20 Range/Units 08:03 Sodium 132 L (137-145) mmol/L Potassium 3.8 (3.5-5.1) mmol/L Chloride 107 (98-107) mmol/L Carbon Dioxide 21 L (22-30) mmol/L BUN 9 (7-17) mg/dL Creatinine 0.91 (0.52-1.04) mg/dL Glucose 101 H (74-99) mg/dL Calcium 7.9 L (8.4-10.2) mg/dL Calcium panel 04/22/20 Range/Units 08:03 Calcium 7.9 L (8.4-10.2) mg/dL Pituitary panel 04/22/20 Range/Units 08:03 Sodium 132 L (137-145) mmol/L Potassium 3.8 (3.5-5.1) mmol/L Chloride 107 (98-107) mmol/L Carbon Dioxide 21 L (22-30) mmol/L BUN 9 (7-17) mg/dL Creatinine 0.91 (0.52-1.04) mg/dL Glucose 101 H (74-99) mg/dL Calcium 7.9 L (8.4-10.2) mg/dL Adrenal panel 04/22/20 Range/Units 08:03 Sodium 132 L (137-145) mmol/L Potassium 3.8 (3.5-5.1) mmol/L Chloride 107 (98-107) mmol/L Carbon Dioxide 21 L (22-30) mmol/L BUN 9 (7-17) mg/dL Creatinine 0.91 (0.52-1.04) mg/dL Glucose 101 H (74-99) mg/dL Calcium 7.9 L (8.4-10.2) mg/dL - Imaging Additional studies: KUB shows nonspecific gas pattern Assessment and Plan Assessment: Probable mild ileus. Patient's pain is minimal today. She has no significant acute distention. Patient will undergo cardiac workup later this afternoon. We will follow with you.
--- NOTE | 2020-04-22 13:09 | P.PN ---
Subjective Progress Note Date: 04/22/20 Principal diagnosis: Dizziness, nausea and vomiting Patient seen and examined lying in bed. She just returned from her cardiac catheterization which showed diffuse mild coronary artery disease with a mildly reduced ejection fraction 45% with mild atypical hypokinesis, questionable recovering Takotsubo's cardiomyopathy. She states her nausea and vomiting is improved currently. Carafate was added yesterday. She denies any abdominal pain, nausea, or vomiting at this time. Objective - Vital Signs Vital signs: Vital Signs Temp 97.4 F L 04/22/20 08:00 Pulse 62 04/22/20 08:00 Resp 18 04/22/20 08:00 BP 126/65 04/22/20 08:00 Pulse Ox 93 L 04/22/20 08:09 Intake & Output 04/21/20 04/22/20 04/22/20 18:59 06:59 18:59 Intake Total 1020 150 100 Output Total 2700 Balance 1020 -2550 100 Weight 95.8 kg Intake: IV 100 Oral 1020 150 Output: Urine 2700 Other: # Voids 2 - Exam General appearance: The patient is alert, oriented, in no acute distress. HET: Head is normocephalic and atraumatic. Conjunctiva pink. Sclera anicteric. Neck: Supple without lymphadenopathy. Abdomen: Soft, nontender, nondistended with bowel sounds. No guarding or rigidity. Extremities: Normal skin color and turgor. No pedal edema Neurological: No focal deficits. Alert and oriented 3. - Labs CBC & Chem 7: 04/21/20 06:53 04/22/20 08:03 Labs: Abnormal Lab Results - Last 24 Hours (Table) 04/21/20 04/22/20 Range/Units 14:55 08:03 Sodium 132 L (137-145) mmol/L Carbon Dioxide 21 L (22-30) mmol/L Glucose 101 H (74-99) mg/dL Calcium 7.9 L (8.4-10.2) mg/dL Urine Blood Trace H (Negative) Ur Leukocyte Esterase Moderate H (Negative) Urine WBC 8 H (0-5) /hpf Assessment and Plan (1) Vomiting Narrative/Plan: 74-year-old female with multiple medical comorbidities presenting for complaints of dizziness and found to be bradycardic with depressed ejection fraction on echocardiogram. The patient has been evaluated by the cardiology service with plan for cardiac catheterization tomorrow. Patient also reported symptoms of vomiting occurring daily, no association with food. She denies any abdominal pain at this time. The patient has a known history of peptic ulcer disease in the past with prior endoscopy in 09/2016 and 12/2016 showing ulceration at the anastomotic site of her Suzanna-en-Y. She does report PPI therapy at home. Unclear cause of symptoms, x-ray of the abdomen with a nonspecific nonobstruct javier bowel gas pattern, symptoms may be related to bradycardia, persistent peptic ulcer disease at the anastomotic site, viral gastroenteritis, or other etiology. Current Visit: No Status: Acute Code(s): R11.10 - VOMITING, UNSPECIFIED SNOMED Code(s): 577945795 (2) Bradycardia Narrative/Plan: She is status post cardiac catheterization today Current Visit: Yes Status: Acute Code(s): R00.1 - BRADYCARDIA, UNSPECIFIED SNOMED Code(s): 86728143 (3) H/O gastric bypass Current Visit: No Status: Acute Code(s): Z98.890 - OTHER SPECIFIED POSTPROCEDURAL STATES SNOMED Code(s): 478111259 (4) Peptic ulcer disease Current Visit: No Status: Acute Code(s): K27.9 - PEPTIC ULC, SITE UNSP, UNSP AC OR CHR, W/O HEMOR OR PERF SNOMED Code(s): 04845218 Plan: Supportive care Okay for diet as tolerated Continue other medical management per primary team Cardiology service is following the patient with plan for cardiac catheterization tomorrow Protonix 40 mg twice daily added Carafate 4 times a day before meals at bedtime added No plans for endoscopy at this time Thank you for allowing us to participate in the care of the patient we will continue to follow Dr. Pruitt I agree with the dictator's note, documented as a scribe by Juliane YEE .
[2020-04-22 13:46] VITALS: BP 143/66; PULSE 52; TEMP 97.3
[2020-04-22] MEDS: VENLAFAXINE HCL ER 37.5 MG CAP PO SCH (14:35)
--- NOTE | 2020-04-22 23:45 | P.DS ---
Providers Date of admission: 04/20/20 14:56 Attending physician: Erick Mcgowan MD Consults: 04/20/20 14:58 Consult Physician Routine Consulting Provider: Durga Rojas Consult Reason/Comments: Near syncope, bradycardia Do you want consulting provider notified?: Yes 04/20/20 21:33 Consult Physician Routine Consulting Provider: Varun Pruitt Consult Reason/Comments: persistant vomiting Do you want consulting provider notified?: Yes, Notify in am 04/22/20 11:11 Consult Physician Urgent Consulting Provider: Phil Burt Consult Reason/Comments: DILATED BOWEL LOOPS Do you want consulting provider notified?: Yes Primary care physician: Courtney Cook [facility] Course: Diagnoses: Presyncope and dizziness, associated with postural hypotension, improved Bradycardia, improved. Status post cardiac cath showed no significant disease Ongoing vomiting for several months, resolved for 48 hours prior to discharge Hypertension chronic Atrial fibrillation History of coronary artery disease Osteoarthritis History of peptic ulcer disease Chronic back pain History of laryngeal cancer about 20 years ago Obesity with BMI of 35.3 Possible drug-seeking behavior Hospital course: This is a pleasant 74 years old female with past medical history of coronary artery disease, atrial fibrillation, hypertension, osteoarthritis, peptic ulcer disease, chronic back pain, history of laryngeal cancer about 20 years ago. She is a patient of Dr. Valdez. She presents because of dizziness like presyncope for about 2 days without actual loss of consciousness. Patient has positive orthostatic hypotension on presentation. She reports vomiting for several months about once a day . Abdominal x-rays show nonobstructive gas pattern with single dilated colonic loop the left abdomen, felt to be secondary to ileus associated with mild abdominal pain. Patient has been evaluated by compliance spec. Echocardiogram showing ejection fraction of 30-35% with normal LAP grade 1 diastolic dysfunction.Underwent cardi ac cath today showing diffuse mild CAD with mild reduced ejection fraction of 45% with mild apical hypokinesis, questionable recovering takotsubo's cardiomyopathy. No stent need to be placed, compliance spec recommended aggressive risk factor modification. GI and surgery team evaluated the patient for recurrent vomiting and no need for surgical intervention or endoscopy. Her Vomiting resolved over the last 2 days. She returned to baseline with no more symptoms. Patient is back to baseline and on the day of discharge she denies chest pain, no dyspnea, no abdominal pain, no change in bowel or urine habits. No fever Patient was cleared for discharge by all consultants including compliance spec, GI and surgery teams Patient is not on beta jarod upon discharge for her bradycardia. Patient is on PPI and carafate is prescribed on the day of discharge patient has medical team to provide her with Bucklin prescription stating that she ran out of her medication on checking [facility] her last dose of Bucklin 7.5mg was prescribed on 08/2019, also patient is taken from volume 5 mg, stated that it didn't help her sleep. Risks of this medication are explained for the patient including but not limited to risk of respiratory depression and , we are comment patient discontinue Ativan, no narcotics prescribed upon discharge Problems and management plan were discussed with the patient and he verbalized understanding and acceptance Patient was found stable and can be discharged home however he needs follow-up as an outpatient. Patient was instructed to follow up with PCP Dr. Chow within one week and patient agrees. Also patient was instructed to follow up with Dr. Beasley compliance spec in 1-2 weeks she agrees. End to follow-up with GI Dr. pruitt and surgeon Dr. Blanco in 1-2 weeks and she agrees Gen: patient is a AAOx3, no distress CVS: S1-S2, RRR, no murmur Lungs: B/L CTA, no wheezing Abdomen: soft, no distention, no tenderness, positive bowel sounds Extremity: no leg edema or induration Time spent more than 35 minutes Patient Condition at Discharge: Stable Plan - Discharge Summary Discharge Rx Participant: Yes New Discharge Prescriptions: New Sucralfate [Carafate] 1 gm PO ACHS #120 tab Continue Levothyroxine Sodium [Synthroid] 200 mcg PO DAILY Omeprazole 20 mg PO BID lisinopriL [Zestril] 20 mg PO DAILY PRN PRN Reason: Blood Pressure - High lisinopriL [Zestril] 20 mg PO DAILY tiZANidine [Zanaflex] 4 mg PO BID PRN PRN Reason: Muscle Spasm Venlafaxine HCl ER [Effexor XR] 37.5 mg PO DAILY Hydrocodone/Acetaminophen [Bucklin 5-325] 1 tab PO Q6H PRN PRN Reason: Mild Pain Discontinued diazePAM [Valium] 5 mg PO HS Discharge Medication List Levothyroxine Sodium [Synthroid] 200 mcg PO DAILY 01/12/19 [History] Omeprazole 20 mg PO BID 04/12/20 [History] Hydrocodone/Acetaminophen [Bucklin 5-325] 1 tab PO Q6H PRN 04/20/20 [History] Venlafaxine HCl ER [Effexor XR] 37.5 mg PO DAILY 04/20/20 [History] lisinopriL [Zestril] 20 mg PO DAILY 04/20/20 [History] lisinopriL [Zestril] 20 mg PO DAILY PRN 04/20/20 [History] tiZANidine [Zanaflex] 4 mg PO BID PRN 04/20/20 [History] Sucralfate [Carafate] 1 gm PO ACHS #120 tab 04/22/20 [Rx] Follow up Appointment(s)/Referral(s): Joey Valdez MD [Primary Care Provider] - 1-2 days (Please call your office Saturday for a follow up appointment within one week of being discharged. ) [facility], [NON-STAFF] - Riley Beasley MD [STAFF PHYSICIAN] - 10 Days (Please call cardiology associates on Saturday and make follow up appointment for one week due to your heart catheterization.) Varun Pruitt MD [STAFF PHYSICIAN] - 05/06/20 8:30 am Phil Burt MD [STAFF PHYSICIAN] - 05/03/20 1:15 pm Patient Instructions/Handouts: Dehydration (DC), Near Syncope (DC), After Radi al Heart Catheterization (GEN) Activity/Diet/Wound Care/Special Instructions: heart healthy diet activity is restricted till you see your doctor Discharge Disposition: HOME WITH HOME HEALTH SERVICES
== END 2020-04-22 18:11 | disposition home health service (06) | DRG 287 ==
LOC: EC 13:09 → 3SCARD 14:56
PROVIDERS: ADMIT Internal Medicine; ATTEND Internal Medicine
PROC: 4A023N7 Measurement of Cardiac Sampling and Pressure, Left Heart, Percutaneous Approach (ICD-10-PCS; principal; 2020-04-22 09:00)
PROC: B2111ZZ Fluoroscopy of Multiple Coronary Arteries using Low Osmolar Contrast (ICD-10-PCS; principal; 2020-04-22 09:00)
DX: I95.1 Orthostatic hypotension (principal); I42.9 Cardiomyopathy, unspecified; I48.20 Chronic atrial fibrillation, unspecified; K56.7 Ileus, unspecified; Z96.653 Presence of artificial knee joint, bilateral; I25.10 Atherosclerotic heart disease of native coronary artery without angina pectoris; I10 Essential (primary) hypertension; M19.90 Unspecified osteoarthritis, unspecified site; Z20.822 Contact with and (suspected) exposure to COVID-19; K21.9 Gastro-esophageal reflux disease without esophagitis; E78.5 Hyperlipidemia, unspecified; F41.0 Panic disorder [episodic paroxysmal anxiety]; I44.0 Atrioventricular block, first degree; E66.9 Obesity, unspecified; G89.29 Other chronic pain; R00.1 Bradycardia, unspecified; M54.9 Dorsalgia, unspecified; E86.0 Dehydration; Z98.84 Bariatric surgery status; Z90.710 Acquired absence of both cervix and uterus; Z87.891 Personal history of nicotine dependence; Z87.828 Personal history of other (healed) physical injury and trauma; Z87.11 Personal history of peptic ulcer disease; Z85.21 Personal history of malignant neoplasm of larynx; Z83.3 Family history of diabetes mellitus; Z82.49 Family history of ischemic heart disease and other diseases of the circulatory system; Z79.899 Other long term (current) drug therapy; Z79.890 Hormone replacement therapy; Z68.35 Body mass index [BMI] 35.0-35.9, adult; Z88.1 Allergy status to other antibiotic agents; Z86.14 Personal history of Methicillin resistant Staphylococcus aureus infection; Z90.49 Acquired absence of other specified parts of digestive tract; Z98.890 Other specified postprocedural states; Z80.9 Family history of malignant neoplasm, unspecified
CPT/HCPCS: 36415; 71046; 74018; 80048; 80053; 81001; 83605; 83735; 84484; 85025; 85610; 85730; 87635; 93005; 93306; 93458; 94760; 96360; 99285

== ENCOUNTER 2020-05-17 13:15 | Emergency (ER) | payer MEDICARE ==
[2020-05-17 13:48] VITALS: TEMP 98.9
[2020-05-17] MEDS ORDERED: SODIUM CHLORIDE 0.9% 1,000 ML IV STA (14:00)
[2020-05-17] MEDS ORDERED: SODIUM CHLORIDE 0.9% 500 ML 500 ML IV STA (14:00)
[2020-05-17] MEDS ORDERED: ONDANSETRON 4 MG/2 ML VIAL IVP STA (14:00)
[2020-05-17] MEDS ORDERED: ENALAPRILAT 1.25 MG/ML 1 ML VIAL IVP STA ×2 (14:05→16:21)
[2020-05-17 14:13] LABS: Anisocytosis Slight; Basophils # (A) 0.1 k/uL (0-0.2); Basophils % (A) 1 %; Eosinophils # (A) 0.2 k/uL (0-0.7); Eosinophils % (A) 3 %; HCT 41.3 % (34.0-46.0); Lymphocytes # (A) 1.7 k/uL (1.0-4.8); Lymphocytes % (A) 27 %; MCH 32.4 pg (25.0-35.0); MCHC 33.4 g/dL (31.0-37.0); MCV 97.2 fL (80.0-100.0); Macrocytosis Slight; Monocytes # (A) 0.8 k/uL (0-1.0); Monocytes % (A) 12 %; Neutrophils # (A) 3.2 k/uL (1.3-7.7); Neutrophils % (A) 53 %; Platelet Count 290 k/uL (150-450); RBC 4.25 m/uL (3.80-5.40); RDW 16.3 % (11.5-15.5); WBC 6.1 k/uL (3.8-10.6)
[2020-05-17 14:16] LABS: HGB 13.8 gm/dL (11.4-16.0)
--- NOTE | 2020-05-17 14:16 | ED ---
General Adult HPI - General Chief complaint: Nausea/Vomiting/Diarrhea Stated complaint: vomiting Time Seen by Provider: 05/17/20 13:45 Source: patient, RN notes reviewed, old records reviewed Mode of arrival: ambulatory Limitations: no limitations - History of Present Illness Initial comments: This is a 74-year-old female who presents emergency Department with nausea. Patient states she also vomited up her blood pressure medicines today. Patient states he has a 5 out of 10 headache as well. Patient denies any lightheadedness or dizziness patient denies any chest pain or palpitations. Patient denies abdominal pain. Patient denies any diarrhea. Patient states she had a similar episode about a month ago. Patient states became very dehydrated and had come to the emergency department. Patient denies any recent fever chills or cough. - Related Data Home Medications Medication Instructions Recorded Confirmed Levothyroxine Sodium [Synthroid] 200 mcg PO DAILY 01/12/19 05/17/20 lisinopriL 30 mg PO DAILY 05/17/20 05/17/20 Allergies Allergy/AdvReac Type Severity Reaction Status Date / Time vancomycin Allergy Rash/Hives Verified 05/17/20 16:22 Review of Systems ROS Statement: Those systems with pertinent positive or pertinent negative responses have been documented in the HPI. ROS Other: All systems not noted in ROS Statement are negative. 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 History of Any Multi-Drug Resistant Organisms: None Reported, MRSA Date of last positivie culture/infection: 1997 MDRO Source:: left shoulder Past Surgical History: Bariatric Surgery, Cholecystectomy, Heart Catheterization, Hysterectomy, Joint Replacement, Orthopedic Surgery Additional Past Surgical History / Comment(s): Bilateral knee replacement, left shoulder rotator cuff surgery, gastric bypass, D&C, EGD/colonoscopy, laryngeal tumor removed, Ganglion Cysts both wrists.PAIN CLINIC INJECTIONS, Past Anesthesia/Blood Transfusion Reactions: No Reported Reaction Date of Last Stent Placement:: 2012 Past Psychological History: Anxiety, Depression, Panic Disorder Smoking Status: Former smoker Past Alcohol Use History: None Reported Past Drug Use History: None Reported - Past Family History Mother Family Medical History: Cancer, Congestive Heart Failure (CHF), Diabetes Mellitus, Hypertension Additional Family Medical History / Comment(s): Mother passed at 93. Father Family Medical History: Myocardial Infarction ([place]) Additional Family Medical History / Comment(s): Father of a [place] at the age of 39 yrs. Sister(s) Family Medical History: Cancer Brother(s) Family Medical History: Cancer, Myocardial Infarction ([place]) General Exam - General Exam Comments Initial Comments: GENERAL: Patient is well-developed and well-nourished. Patient is nontoxic and well- hydrated and is in mild distress. ENT: Neck is soft and supple. No significant lymphadenopathy is noted. Oropharynx is clear. Moist mucous membranes. Neck has full range of motion without el iciting any pain. EYES: The sclera were anicteric and conjunctiva were pink and moist. Extraocular movements were intact and pupils were equal round and reactive to light. Eyelids were unremarkable. PULMONARY: Unlabored respirations. Good breath sounds bilaterally. No audible rales rhonchi or wheezing was noted. CARDIOVASCULAR: There is a regular rate and rhythm without any murmurs gallops or rubs. ABDOMEN: Soft and nontender with normal bowel sounds. SKIN: Skin is clear with no lesions or rashes and otherwise unremarkable. NEUROLOGIC: Patient is alert and oriented x3. Cranial nerves II through XII are grossly intact. Motor and sensory are also intact. Normal speech, volume and content. Symmetrical smile. MUSCULOSKELETAL: Normal extremities with adequate strength and full range of motion. LYMPHATICS: No significant lymphadenopathy is noted PSYCHIATRIC: Normal psychiatric evaluation. Limitations: no limitations Course Vital Signs 05/17/20 05/17/20 05/17/20 13:43 16:19 16:50 Temperature 98.9 F Pulse Rate 94 80 Respiratory 18 16 Rate Blood Pressure 217/104 164/90 186/91 O2 Sat by Pulse 98 95 Oximetry 05/17/20 05/17/20 17:28 17:47 Temperature Pulse Rate 84 Respiratory 16 Rate Blood Pressure 176/81 165/85 O2 Sat by Pulse 97 Oximetry Medical Decision Making - Medical Decision Making EKG shows sinus rhythm at 82 bpm MS interval is 232 QRS is 98 QT interval 342 QTC is 399 per patient's EKG shows no ST segment elevation or depression. Patient's blood pressure was elevated. Patient received Vasotec and then eventually hydralazine. Patient also received Tylenol for headache. I went back and reevaluated the patient at 545 and she was feeling considerably better no longer nauseated no longer having any headache and blood pressure had come down nicely. - Lab Data Result diagrams: 05/17/20 14:04 05/17/20 14:04 Lab Results 05/17/20 05/17/20 05/17/20 Range/Units 14:04 14:04 14:04 WBC 6.1 (3.8-10.6) k/uL RBC 4.25 (3.80-5.40) m/uL Hgb 13.8 D (11.4-16.0) gm/dL Hct 41.3 (34.0-46.0) % MCV 97.2 (80.0-100.0) fL MCH 32.4 (25.0-35.0) pg MCHC 33.4 (31.0-37.0) g/dL RDW 16.3 H (11.5-15.5) % Plt Count 290 (150-450) k/uL MPV 7.0 Neutrophils % 53 % Lymphocytes % 27 % Monocytes % 12 % Eosinophils % 3 % Basophils % 1 % Neutrophils # 3.2 (1.3-7.7) k/uL Lymphocytes # 1.7 (1.0-4.8) k/uL Monocytes # 0.8 (0-1.0) k/uL Eosinophils # 0.2 (0-0.7) k/uL Basophils # 0.1 (0-0.2) k/uL Anisocytosis Slight Macrocytosis Slight Sodium 135 L (137-145) mmol/L Potassium 3.3 L (3.5-5.1) mmol/L Chloride 102 (98-107) mmol/L Carbon Dioxide 21 L (22-30) mmol/L Anion Gap 12 mmol/L BUN 18 H (7-17) mg/dL Creatinine 0.77 (0.52-1.04) mg/dL Est GFR (CKD-EPI)AfAm 88 (>60 ml/min/1.73 sqM) Est GFR (CKD-EPI)NonAf 76 (>60 ml/min/1.73 sqM) Glucose 114 H (74-99) mg/dL Calcium 9.3 (8.4-10.2) mg/dL Total Bilirubin 0.9 (0.2-1.3) mg/dL AST 44 H (14-36) U/L ALT 25 (4-34) U/L Alkaline Phosphatase 109 (38-126) U/L Total Protein 8.0 (6.3-8.2) g/dL Albumin 4.6 (3.5-5.0) g/dL Amylase <30 L (30-110) U/L Lipase 109 (23-300) U/L Urine Color Yellow Urine Appearance Clear (Clear) Urine pH 6.5 (5.0-8.0) Ur Specific Gilberts 1.029 (1.001-1.035) Urine Protein 1+ H (Negative) Urine Glucose (UA) Negative (Negative) Urine Ketones 1+ H (Negative) Urine Blood Trace H (Negative) Urine Nitrite Negative (Negative) Urine Bilirubin 1+ H (Negative) Urine Urobilinogen >12.0 (<2.0) mg/dL Ur Leukocyte Esterase Moderate H (Negative) Urine RBC 6 H (0-5) /hpf Urine WBC 7 H (0-5) /hpf Ur Squamous Epith Cells 2 (0-4) /hpf Urine Bacteria Rare H (None) /hpf Hyaline Casts 13 H (0-2) /lpf Urine Mucus Occasional H (None) /hpf Disposition Clinical Impression: Acute vomiting, Hypertensive urgency Disposition: HOME SELF-CARE Condition: Good Instructions (If sedation given, give patient instructions): Hypertension (ED), Acute Nausea and Vomiting (ED) Is patient prescribed a controlled substance at d/c from ED?: No Referrals: Joey Valdez MD [Primary Care Provider] - 1-2 days Time of Disposition: 17:50
[2020-05-17 14:29] LABS: ALT 25 U/L (4-34); AST 44 U/L (14-36); African American GFR (CKD) 88 (>60 ml/min/1.73 sqM); Albumin 4.6 g/dL (3.5-5.0); Alkaline Phosphatase 109 U/L (38-126); Amylase <30 U/L (30-110); Anion Gap 12 mmol/L; Blood Urea Nitrogen 18 mg/dL (7-17); Calcium 9.3 mg/dL (8.4-10.2); Carbon Dioxide 21 mmol/L (22-30); Chloride 102 mmol/L (98-107); Glucose 114 mg/dL (74-99); Lipase 109 U/L (23-300); Non-African American GFR(CKD) 76 (>60 ml/min/1.73 sqM); Potassium 3.3 mmol/L (3.5-5.1); Sodium 135 mmol/L (137-145); Total Bilirubin 0.9 mg/dL (0.2-1.3)
--- NOTE | 2020-05-17 14:38 | XR ---
EXAMINATION TYPE: XR chest 2V DATE OF EXAM: 05/17/2020 COMPARISON: Chest x-ray April 20, 2020 HISTORY: Hypertension and pain. TECHNIQUE: Frontal and lateral views of the chest are obtained. FINDINGS: There is no new suspicious focal air space opacity, pleural effusion, or pneumothorax seen . The cardiac silhouette size is stable and upper limits of normal. Metallic hardware from left shou lder surgery redemonstrated. IMPRESSION: No acute cardiopulmonary process. No significant change from prior.
--- NOTE | 2020-05-17 14:40 | CT ---
EXAMINATION TYPE: CT brain wo con DATE OF EXAM: 05/17/2020 HISTORY: Vomiting, high blood pressure, headache. CT DLP: 1114.4 mGycm. Automated Exposure Control for Dose Reduction was Utilized. TECHNIQUE: CT scan of the head is performed without contrast. COMPARISON: CT brain March 03, 2019. FINDINGS: There is no acute intracranial hemorrhage or midline shift identified. There is mild to m oderate diffuse ventricular and sulcal prominence consistent with diffuse age-related cerebral atroph y. There is moderate low-attenuation in the periventricular white matter consistent with chronic sma ll vessel ischemic change. The calvarium is intact. The globes are intact and the visualized sinuses are clear. IMPRESSION: No acute intracranial hemorrhage or midline shift. There is mild to moderate diffuse ag e-related cerebral atrophy and moderate chronic small vessel ischemic change redemonstrated. No sign ificant change from prior CT.
[2020-05-17 16:21] VITALS: RESP 16
[2020-05-17] MEDS ORDERED: ACETAMINOPHEN TAB 500 MG TAB PO STA (16:21)
[2020-05-17 16:48] LABS: Appearance,Urine Clear (Clear); Bacteria,Urine Rare /hpf; Bilirubin,Urine 1+ (Negative); Blood,Urine Trace (Negative); Color,Urine Yellow; Glucose,Urine (UA) Negative (Negative); Hyaline Casts,Urine 13 /lpf (0-2); Ketones,Urine 1+ (Negative); Leukocyte Esterase,Urine Moderate (Negative); Mucus,Urine Occasional /hpf; Nitrite,Urine Negative (Negative); PH, Urine 6.5 (5.0-8.0); Protein,Urine 1+ (Negative); RBC,Urine 6 /hpf (0-5); Specific Gravity,Urine 1.029 (1.001-1.035); Squamous Epithelial Cell,Urine 2 /hpf (0-4); Urobilinogen,Urine >12.0 mg/dL (<2.0); WBC,Urine 7 /hpf (0-5)
[2020-05-17] MEDS ORDERED: hydrALAZINE HCL 20 MG/ML 1 ML VIAL IVP STA ×2 (17:08→17:47)
[2020-05-17] MEDS ORDERED: KETOROLAC 15 MG/ML 1 ML VIAL IVP STA (17:10)
[2020-05-17] MEDS ORDERED: ONDANSETRON 4 MG ODT STARTER PACK 2 TAB BTL PO STA (17:51)
[2020-05-17 18:11] VITALS: BP 155/76; PULSE 88
== END 2020-05-17 18:11 | disposition home or self-care (01) ==
LOC: EC 13:15
DX: I16.0 Hypertensive urgency (principal); I10 Essential (primary) hypertension; I48.91 Unspecified atrial fibrillation; I25.119 Atherosclerotic heart disease of native coronary artery with unspecified angina pectoris; Z79.890 Hormone replacement therapy; Z79.899 Other long term (current) drug therapy; Z88.1 Allergy status to other antibiotic agents; Z87.891 Personal history of nicotine dependence; Z98.84 Bariatric surgery status; Z85.21 Personal history of malignant neoplasm of larynx
CPT/HCPCS: 36415; 93005; 80053; 82150; 83690; 85025; 81001; 71046; 70450; 99285; 96374; 96375 ×3; 96361 ×2; J0360; J2405; J1885; S0119

== ENCOUNTER 2020-07-09 08:37 | Inpatient (IN) | payer MEDICARE ==
[2020-07-09] MEDS ORDERED: SODIUM CHLORIDE 0.9% 1,000 ML IV STA (09:02)
[2020-07-09] MEDS ORDERED: HYDROmorphone 0.5 MG/0.5 ML SYRINGE IVP STA ×3 (09:02→12:11)
--- NOTE | 2020-07-09 09:06 | ED ---
General Adult HPI - General Chief complaint: Nausea/Vomiting/Diarrhea Stated complaint: Abd Pain, Vomiting Time Seen by Provider: 07/09/20 08:46 Source: patient, RN notes reviewed Mode of arrival: ambulatory Limitations: no limitations - History of Present Illness Initial comments: 74-year-old female presents emergency Department chief complaint of abdominal pain, nausea vomiting. Patient states symptoms started around 2 AM. Patient states is initially just nausea vomiting she developed lower abdominal pain and cramping. No sniffing diarrhea constipation she does have some urinary frequency with no dysuria. Denies any flank pain no chest pain or shortness of breath. Patient found to have a temp 99. She denies any cough or URI symptoms. - Related Data Home Medications Medication Instructions Recorded Confirmed Levothyroxine Sodium [Synthroid] 200 mcg PO DAILY 01/12/19 07/09/20 Acetaminophen with Codeine 1 tab PO QID PRN 07/09/20 07/09/20 [Tylenol w/Codeine #4 Tablet] Pantoprazole [Protonix] 40 mg PO DAILY 07/09/20 07/09/20 lisinopriL 40 mg PO DAILY 07/09/20 07/09/20 traZODone HCL [Desyrel] 50 mg PO HS 07/09/20 07/09/20 Allergies Allergy/AdvReac Type Severity Reaction Status Date / Time vancomycin Allergy Rash/Hives Verified 07/09/20 10:21 Review of Systems ROS Statement: Those systems with pertinent positive or pertinent negative responses have been documented in the HPI. ROS Other: All systems not noted in ROS Statement are negative. 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 History of Any Multi-Drug Resistant Organisms: None Reported, MRSA Date of last positivie culture/infection: 1997 MDRO Source:: left shoulder Past Surgical History: Bariatric Surgery, Cholecystectomy, Heart Catheterization, Hysterectomy, Joint Replacement, Orthopedic Surgery Additional Past Surgical History / Comment(s): Bilateral knee replacement, left shoulder rotator cuff surgery, gastric bypass, D&C, EGD/colonoscopy, laryngeal tumor removed, Ganglion Cysts both wrists.PAIN CLINIC INJECTIONS, Past Anesthesia/Blood Transfusion Reactions: No Reported Reaction Date of Last Stent Placement:: 2012 Past Psychological History: Anxiety, Depression, Panic Disorder Smoking Status: Former smoker Past Alcohol Use History: None Reported Past Drug Use History: None Reported - Past Family History Mother Family Medical History: Cancer, Congestive Heart Failure (CHF), Diabetes Mellitus, Hypertension Additional Family Medical History / Comment(s): Mother passed at 93. Father Family Medical History: Myocardial Infarction ([place]) Additional Family Medical History / Comment(s): Father of a [place] at the age of 39 yrs. Sister(s) Family Medical History: Cancer Brother(s) Family Medical History: Cancer, Myocardial Infarction ([place]) General Exam Limitations: no limitations General appearance: alert, in no apparent distress Head exam: Present: atraumatic, normocephalic, normal inspection Neck exam: Present: normal inspection. Absent: tenderness, meningismus, lymphadenopathy Respiratory exam: Present: normal lung sounds bilaterally. Absent: respiratory distress, wheezes, rales, rhonchi, stridor Cardiovascular Exam: Present: normal rhythm, tachycardia, normal heart sounds. Absent: systolic murmur, diastolic murmur, rubs, gallop, clicks GI/Abdominal exam: Present: soft, tenderness, normal bowel sounds. Absent: distended, guarding, rebound, rigid Back exam: Absent: CVA tenderness (R), CVA tenderness (L) Neurological exam: Present: alert, oriented X3 Course Vital Signs 07/09/20 07/09/20 07/09/20 08:40 10:47 11:15 Temperature 99.7 F H Pulse Rate 105 H 100 97 Respiratory 24 18 20 Rate Blood Pressure 187/110 119/68 108/57 O2 Sat by Pulse 97 93 L 99 Oximetry 07/09/20 12:11 Temperature Pulse Rate 107 H Respiratory 22 Rate Blood Pressure 134/87 O2 Sat by Pulse 95 Oximetry - Reevaluation(s) Reevaluation #1: 07/09/20 10:30 Fluids will be based on ideal bodyweight of 115lbs Procedures - Sepsis Sepsis Focused Exam #1 Time Sepsis Criteria Met: 12:10 Sepsis Focused Exam Date: 07/09/20 Sepsis Focused Exam Time: 12:17 Sepsis Focused Exam Complete: Yes Vital Signs & RN Notes Reviewed: Yes Capillary Refill: < 2 Seconds: Fingers, Toes Peripheral Pulses: Normal: Radial (R), Radial (L), Posterior Tibialis (R), Posterior Tibialis (L), Dorsalis Pedis (R), Dorsalis Pedis (L) Skin Color: Normal for Patient Respiratory Exam: normal lung sounds Cardiovascular Exam: tachycardia Medical Decision Making - Medical Decision Making 74-year-old female presents emergency from for abdominal pain. CT shows evidence of diverticulitis. Patient does have 30,000 white count lactic of 4.2. There is questionable air on the right side but patient is no pain is felt to be gas trapping. I did contact admitting hospitalist and consult surgery. Patient given broad-spectrum antibiotics blood cultures are drawn. - Lab Data Result diagrams: 07/09/20 09:24 07/09/20 09:24 Lab Results 07/09/20 07/09/20 07/09/20 Range/Units 09:24 09:24 09:24 WBC 30.3 H (3.8-10.6) k/uL RBC 4.35 (3.80-5.40) m/uL Hgb 13.2 (11.4-16.0) gm/dL Hct 40.7 (34.0-46.0) % MCV 93.5 (80.0-100.0) fL MCH 30.4 (25.0-35.0) pg MCHC 32.5 (31.0-37.0) g/dL RDW 13.2 (11.5-15.5) % Plt Count 441 (150-450) k/uL MPV 7.8 Neutrophils % 92 % Lymphocytes % 2 % Monocytes % 4 % Eosinophils % 1 % Basophils % 0 % Neutrophils # 27.9 H (1.3-7.7) k/uL Lymphocytes # 0.6 L (1.0-4.8) k/uL Monocytes # 1.2 H (0-1.0) k/uL Eosinophils # 0.4 (0-0.7) k/uL Basophils # 0.0 (0-0.2) k/uL Manual Slide Review Performed RBC Morphology Normal Sodium 135 L (137-145) mmol/L Potassium 3.9 (3.5-5.1) mmol/L Chloride 102 (98-107) mmol/L Carbon Dioxide 17 L (22-30) mmol/L Anion Gap 16 mmol/L BUN 29 H (7-17) mg/dL Creatinine 1.67 H (0.52-1.04) mg/dL Est GFR (CKD-EPI)AfAm 35 (>60 ml/min/1.73 sqM) Est GFR (CKD-EPI)NonAf 30 (>60 ml/min/1.73 sqM) Glucose 194 H (74-99) mg/dL Plasma Lactic Acid Anthony 4.7 H* (0.7-2.0) mmol/L Calcium 9.7 (8.4-10.2) mg/dL Total Bilirubin 1.0 (0.2-1.3) mg/dL AST 34 (14-36) U/L ALT 19 (4-34) U/L Alkaline Phosphatase 352 H (38-126) U/L Troponin I (0.000-0.034) ng/mL Total Protein 7.6 (6.3-8.2) g/dL Albumin 4.3 (3.5-5.0) g/dL Amylase 46 (30-110) U/L Lipase 140 (23-300) U/L Coronavirus (PCR) (Not Detectd) 07/09/20 07/09/20 Range/Units 09:24 09:24 WBC (3.8-10.6) k/uL RBC (3.80-5.40) m/uL Hgb (11.4-16.0) gm/dL Hct (34.0-46.0) % MCV (80.0-100.0) fL MCH (25.0-35.0) pg MCHC (31.0-37.0) g/dL RDW (11.5-15.5) % Plt Count (150-450) k/uL MPV Neutrophils % % Lymphocytes % % Monocytes % % Eosinophils % % Basophils % % Neutrophils # (1.3-7.7) k/uL Lymphocytes # (1.0-4.8) k/uL Monocytes # (0-1.0) k/uL Eosinophils # (0-0.7) k/uL Basophils # (0-0.2) k/uL Manual Slide Review RBC Morphology Sodium (137-145) mmol/L Potassium (3.5-5.1) mmol/L Chloride (98-107) mmol/L Carbon Dioxide (22-30) mmol/L Anion Gap mmol/L BUN (7-17) mg/dL Creatinine (0.52-1.04) mg/dL Est GFR (CKD-EPI)AfAm (>60 ml/min/1.73 sqM) Est GFR (CKD-EPI)NonAf (>60 ml/min/1.73 sqM) Glucose (74-99) mg/dL Plasma Lactic Acid Anthony (0.7-2.0) mmol/L Calcium (8.4-10.2) mg/dL Total Bilirubin (0.2-1.3) mg/dL AST (14-36) U/L ALT (4-34) U/L Alkaline Phosphatase (38-126) U/L Troponin I <0.012 (0.000-0.034) ng/mL Total Protein (6.3-8.2) g/dL Albumin (3.5-5.0) g/dL Amylase (30-110) U/L Lipase (23-300) U/L Coronavirus (PCR) Not Detected (Not Detectd) Critical Care Time Critical Care Time: Yes Total Critical Care Time: 35 Critical Care Time: Total 35 minutes were used to initially evaluated the patient, reviewed past medical history according labs EKG, CT. Patient shows to have have acute diverticulitis. Patient started on broad spectrum antibiotics but cultures are drawn patient meets or sepsis.. Exam was performed case discussed with admitting with consults surgery. Disposition Clinical Impression: Acute diverticulitis, Sepsis, Acute kidney injury Disposition: ADMITTED IP TO THIS HOSP Condition: Serious Referrals: Joey Valdez MD [Primary Care Provider] - 1-2 days
[2020-07-09] MEDS: ONDANSETRON 4 MG/2 ML VIAL IVP STA (09:25)
[2020-07-09 09:45] LABS: Basophils % (A) 0 %; Eosinophils # (A) 0.4 k/uL (0-0.7); Eosinophils % (A) 1 %; HCT 40.7 % (34.0-46.0); HGB 13.2 gm/dL (11.4-16.0); Lymphocytes # (A) 0.6 k/uL (1.0-4.8); Lymphocytes % (A) 2 %; MCH 30.4 pg (25.0-35.0); MCHC 32.5 g/dL (31.0-37.0); MCV 93.5 fL (80.0-100.0); Mean Platelet Volume 7.8; Monocytes # (A) 1.2 k/uL (0-1.0); Monocytes % (A) 4 %; Neutrophils # (A) 27.9 k/uL (1.3-7.7); Neutrophils % (A) 92 %; Platelet Count 441 k/uL (150-450); RBC 4.35 m/uL (3.80-5.40); RDW 13.2 % (11.5-15.5)
[2020-07-09 09:48] LABS: WBC 30.3 k/uL (3.8-10.6)
[2020-07-09 09:52] LABS: Albumin 4.3 g/dL (3.5-5.0); Calcium 9.7 mg/dL (8.4-10.2); Potassium 3.9 mmol/L (3.5-5.1); Total Protein 7.6 g/dL (6.3-8.2)
[2020-07-09] MEDS ORDERED: SODIUM CHLORIDE 0.9% 500 ML 500 ML IV ONE (10:29)
[2020-07-09] MEDS: SODIUM CHLORIDE 0.9% 1,000 ML IV SCH ×2 (10:47→23:48)
--- NOTE | 2020-07-09 12:00 | CT ---
EXAMINATION TYPE: CT abdomen pelvis wo con DATE OF EXAM: 07/09/2020 COMPARISON: 04/12/2020. Chest 03/07/2018 HISTORY: 74-year-old female Generalized abdominal pain CT DLP: 853.6 mGycm. Automated exposure control for dose reduction was used. TECHNIQUE: Contiguous axial scanning of the abdomen and pelvis without IV contrast. Coronal and sagit aditya reconstructions performed. FINDINGS: Heart normal size without pericardial effusion. Scattered coronary artery calcifications. Irregular nodule partially visualized at the posterior right base appears to have been present on the 03/07/2018 exam suggesting a chronic etiology. Strandy atelectasis in the lower lungs. There is a small hiatal hernia with postsurgical changes of antecolic Suzanna-en-Y gastric bypass. Noncontrast appearance of the liver, adrenal glands, kidneys, spleen, and pancreas show no gross abno rmality. Moderate atherosclerotic calcifications abdominal aorta without aneurysm. No dilated small bowel. There is liquid stool seen throughout the colon. There is sigmoid diverticulo sis with mild to moderate pericolonic inflammatory fat stranding at the junction of the descending an d sigmoid colon and mild wall thickening. The lower ascending colon is borderline dilated measuring 5.9 cm wide, coronal image 42. In addition, tiny foci of air are present along the medial wall of the colon in this region, referred coronal mckenzie ge 41 and axial images 40, 42, and 44. No free fluid or free air seen. Bladder under distended. Uterus surgically absent. Small left ovary. Right ovary not clearly delineat ed. No abnormal fluid collection in the pelvis or pelvic lymphadenopathy. Multiple pelvic lymph nodes . Bones: Advanced spondylotic changes throughout the lumbar spine. Grade 2 retrolisthesis L2-L3 and gra de 1 retrolisthesis L4-1-5. IMPRESSION: 1. Exam positive for mild acute diverticulitis along the proximal sigmoid colon. No abscess or free air. 2. In addition, there is liquid stool throughout the colon, borderline distention of the lower asce nding colon up to 5.9 cm wide, and tiny foci of air along the medial wall of the colon in this region (refer to coronal image 41). The air may be trapped between stool and the wall of the colon. Correla te with lactic acid levels and for any right-sided abdominal pain to exclude early ischemic colitis. 3. Small hiatal hernia with previous Suzanna-en-Y gastric bypass.
[2020-07-09] MEDS ORDERED: PIPERACILLIN-TAZOBACTAM 3.375 GM in SODIUM CHLORIDE 0.9% 100 ML IVPB STA (12:04)
[2020-07-09] MEDS ORDERED: NALOXONE 0.4 MG/ML 1 ML VIAL IV PRN (12:19)
[2020-07-09] MEDS ORDERED: SODIUM CHLORIDE 0.9% 1,000 ML IV ONE (13:05)
--- NOTE | 2020-07-09 14:07 | P.GSCN ---
History of Present Illness Consult date: 07/09/20 Reason for Consult: Diverticulitis History of present illness: Is a 74-year-old female who has a 24 history of severe abdominal pain. Patient was seen in the emergency room. She has a white count of 30,000. Her lactic acid was 7. She has complaints of severe left lower quadrant pain. Her CAT scan shows questionable ischemic right colon with evidence of acute diverticulitis of left colon and sigmoid. 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 History of Any Multi-Drug Resistant Organisms: None Reported, MRSA Year Discovered:: 1997 MDRO Source:: left shoulder Past Surgical History: Bariatric Surgery, Cholecystectomy, Heart C atheterization, Hysterectomy, Joint Replacement, Orthopedic Surgery Additional Past Surgical History / Comment(s): Bilateral knee replacement, left shoulder rotator cuff surgery, gastric bypass, D&C, EGD/colonoscopy, laryngeal tumor removed, Ganglion Cysts both wrists.PAIN CLINIC INJECTIONS, Past Anesthesia/Blood Transfusion Reactions: No Reported Reaction Date of Last Stent Placement:: 2012 Past Psychological History: Anxiety, Depression, Panic Disorder Smoking Status: Former smoker Past Alcohol Use History: None Reported Past Drug Use History: None Reported - Past Family History Mother Family Medical History: Cancer, Congestive Heart Failure (CHF), Diabetes M ellitus, Hypertension Additional Family Medical History / Comment(s): Mother passed at 93. Father Family Medical History: Myocardial Infarction ([place]) Additional Family Medical History / Comment(s): Father of a CT at the age of 39 yrs. Sister(s) Family Medical History: Cancer Brother(s) Family Medical History: Cancer, Myocardial Infarction (CT) Medications and Allergies Home Medications Medication Instructions Recorded Confirmed Type Levothyroxine Sodium [Synthroid] 200 mcg PO DAILY 01/12/19 07/09/20 History Acetaminophen with Codeine 1 tab PO QID PRN 07/09/20 07/09/20 History [Tylenol w/Codeine #4 Tablet] Pantoprazole [Protonix] 40 mg PO DAILY 07/09/20 07/09/20 History lisinopriL 40 mg PO DAILY 07/09/20 07/09/20 History traZODone HCL [Desyrel] 50 mg PO HS 07/09/20 07/09/20 History Allergies Allergy/AdvReac Type Severity Reaction Status Date / Time vancomycin Allergy Rash/Hives Verified 07/09/20 10:21 Surgical - Exam Vital Signs Temp Pulse Resp BP Pulse Ox 99.7 F H 105 H 24 187/110 97 07/09/20 08:40 07/09/20 08:40 07/09/20 08:40 07/09/20 08:40 07/09/20 08:40 - General well developed, moderate distress - Eyes PERRL - ENT normal pinna - Neck no masses - Respiratory normal expansion - Cardiovascular Rhythm: regular - Abdomen Marked tenderness left lower quadrant. With some rebound tenderness. Abdomen: soft Results - Labs 07/09/20 09:24 07/09/20 09:24 Abnormal Lab Results - Last 24 Hours (Table) 07/09/20 07/09/20 07/09/20 Range/Units 09:24 09:24 09:24 WBC 30.3 H (3.8-10.6) k/uL Neutrophils # 27.9 H (1.3-7.7) k/uL Lymphocytes # 0.6 L (1.0-4.8) k/uL Monocytes # 1.2 H (0-1.0) k/uL Sodium 135 L (137-145) mmol/L Carbon Dioxide 17 L (22-30) mmol/L BUN 29 H (7-17) mg/dL Creatinine 1.67 H (0.52-1.04) mg/dL Glucose 194 H (74-99) mg/dL Plasma Lactic Acid Anthony 4.7 H* (0.7-2.0) mmol/L Alkaline Phosphatase 352 H (38-126) U/L 07/09/20 Range/Units 12:38 WBC (3.8-10.6) k/uL Neutrophils # (1.3-7.7) k/uL Lymphocytes # (1.0-4.8) k/uL Monocytes # (0-1.0) k/uL Sodium (137-145) mmol/L Carbon Dioxide (22-30) mmol/L BUN (7-17) mg/dL Creatinine (0.52-1.04) mg/dL Glucose (74-99) mg/dL Plasma Lactic Acid Anthony 6.4 H* (0.7-2.0) mmol/L Alkaline Phosphatase (38-126) U/L Diabetes panel 07/09/20 Range/Units 09:24 Sodium 135 L (137-145) mmol/L Potassium 3.9 (3.5-5.1) mmol/L Chloride 102 (98-107) mmol/L Carbon Dioxide 17 L (22-30) mmol/L BUN 29 H (7-17) mg/dL Creatinine 1.67 H (0.52-1.04) mg/dL Glucose 194 H (74-99) mg/dL Calcium 9.7 (8.4-10.2) mg/dL AST 34 (14-36) U/L ALT 19 (4-34) U/L Alkaline Phosphatase 352 H (38-126) U/L Total Protein 7.6 (6.3-8.2) g/dL Albumin 4.3 (3.5-5.0) g/dL Calcium panel 07/09/20 Range/Units 09:24 Calcium 9.7 (8.4-10.2) mg/dL Albumin 4.3 (3.5-5.0) g/dL Pituitary panel 07/09/20 Range/Units 09:24 Sodium 135 L (137-145) mmol/L Potassium 3.9 (3.5-5.1) mmol/L Chloride 102 (98-107) mmol/L Carbon Dioxide 17 L (22-30) mmol/L BUN 29 H (7-17) mg/dL Creatinine 1.67 H (0.52-1.04) mg/dL Glucose 194 H (74-99) mg/dL Calcium 9.7 (8.4-10.2) mg/dL Adrenal panel 07/09/20 Range/Units 09:24 Sodium 135 L (137-145) mmol/L Potassium 3.9 (3.5-5.1) mmol/L Chloride 102 (98-107) mmol/L Carbon Dioxide 17 L (22-30) mmol/L BUN 29 H (7-17) mg/dL Creatinine 1.67 H (0.52-1.04) mg/dL Glucose 194 H (74-99) mg/dL Calcium 9.7 (8.4-10.2) mg/dL Total Bilirubin 1.0 (0.2-1.3) mg/dL AST 34 (14-36) U/L ALT 19 (4-34) U/L Alkaline Phosphatase 352 H (38-126) U/L Total Protein 7.6 (6.3-8.2) g/dL Albumin 4.3 (3.5-5.0) g/dL Assessment and Plan Assessment: Patient's CAT scan was concerning for possible ischemic right colon. Patient will see fluid hydration overnight. She'll start antibiotics. If she has significant leukocytosis or elevate lactic acid or significant abdominal pain she was taken to the or tomorrow for exploratory laparotomy. I discussed with patient.
[2020-07-09] MEDS: HYDROmorphone 0.5 MG/0.5 ML SYRINGE IVP PRN ×3 (16:02→23:45)
[2020-07-09] MEDS: ONDANSETRON 4 MG/2 ML VIAL IVP PRN ×2 (16:02→23:44)
[2020-07-09 16:20] LABS: Amorphous Sediment,Urine Rare /hpf; Appearance,Urine Cloudy (Clear); Bacteria,Urine Rare /hpf; Bilirubin,Urine 1+ (Negative); Blood,Urine Small (Negative); Color,Urine Dark Brown; Glucose,Urine (UA) Negative (Negative); Hyaline Casts,Urine 3 /lpf (0-2); Ketones,Urine Trace (Negative); Leukocyte Esterase,Urine Small (Negative); Mucus,Urine Rare /hpf; Nitrite,Urine Negative (Negative); PH, Urine 5.5 (5.0-8.0); Protein,Urine Trace (Negative); RBC,Urine 3 /hpf (0-5); Specific Gravity,Urine 1.027 (1.001-1.035); Squamous Epithelial Cell,Urine 1 /hpf (0-4); WBC,Urine 8 /hpf (0-5)
--- NOTE | 2020-07-09 16:49 | P.HPIM ---
History of Present Illness 74-year-old female came with sharp severe abdominal pain in the right lower quadrant which started last night, found to have severe diabetes mellitus with significant tenderness patient does have fever is presently having diarrhea has highly elevated lactic acid of around 7. Patient had a CT of the abdomen which showed acute diverticular colitis in the sigmoid colon area with liquid stool throughout the colon. No free a the abdomen. Patient is also acidotic secondary to lactic acidosis with the elevated creatinine of 1.67 baseline around 0.9 patient is tachycardic bit tachycardia Secondary to acidosis leukocytosis of 30,000 Review of Systems REVIEW OF SYSTEMS: CONSTITUTIONAL: No fever, no malaise, no fatigue. HEENT: No recent visual problems or hearing problems. Denied any sore throat. CARDIOVASCULAR: No chest pain, orthopnea, PND, no palpitations, no syncope. PULMONARY: No shortness of breath, no cough, no hemoptysis. GASTROINTESTINAL: As mentioned in HPI NEUROLOGICAL: No headaches, no weakness, no numbness. HEMATOLOGICAL: Denies any bleeding or petechiae. GENITOURINARY: Denies any burning micturition, frequency, or urgency. MUSCULOSKELETAL/RHEUMATOLOGICAL: Denies any joint pain, swelling, or any muscle pain. ENDOCRINE: Denies any polyuria or polydipsia. The rest of the 14-point review of systems is negative. 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 History of Any Multi-Drug Resistant Organisms: None Reported, MRSA Date of last positivie culture/infection: 1997 MDRO Source:: left shoulder Past Surgical History: Bariatric Surgery, Cholecystectomy, Heart Catheterization, Hysterectomy, Joint Replacement, Orthopedic Surgery Additional Past Surgical History / Comment(s): Bilateral knee replacement, left shoulder rotator cuff surgery, gastric bypass, D&C, EGD/colonoscopy, laryngeal tumor removed, Ganglion Cysts both wrists.PAIN CLINIC INJECTIONS, Past Anesthesia/Blood Transfusion Reactions: No Reported Reaction Date of Last Stent Placement:: 2012 Past Psychological History: Anxiety, Depression, Panic Disorder Smoking Status: Former smoker Past Alcohol Use History: None Reported Past Drug Use History: None Reported - Past Family History Mother Family Medical History: Cancer, Congestive Heart Failure (CHF), Diabetes Mellitus, Hypertension Additional Family Medical History / Comment(s): Mother passed at 93. Father Family Medical History: Myocardial Infarction ([place]) Additional Family Medical History / Comment(s): Father of a [place] at the age of 39 yrs. Sister(s) Family Medical History: Cancer Brother(s) Family Medical History: Cancer, Myocardial Infarction ([place]) Medications and Allergies Home Medications Medication Instructions Recorded Confirmed Type Levothyroxine Sodium [Synthroid] 200 mcg PO DAILY 01/12/19 07/09/20 History Acetaminophen with Codeine 1 tab PO QID PRN 07/09/20 07/09/20 History [Tylenol w/Codeine #4 Tablet] Pantoprazole [Protonix] 40 mg PO DAILY 07/09/20 07/09/20 History lisinopriL 40 mg PO DAILY 07/09/20 07/09/20 History traZODone HCL [Desyrel] 50 mg PO HS 07/09/20 07/09/20 History Allergies Allergy/AdvReac Type Severity Reaction Status Date / Time vancomycin Allergy Rash/Hives Verified 07/09/20 10:21 Physical Exam Vitals: Vital Signs Temp Pulse Resp BP Pulse Ox 07/09/20 15:30 101 H 22 123/76 97 07/09/20 14:00 98 18 126/65 07/09/20 13:35 100 20 136/92 98 07/09/20 12:11 107 H 22 134/87 95 07/09/20 11:15 97 20 108/57 99 07/09/20 10:47 100 18 119/68 93 L 07/09/20 08:40 99.7 F H 105 H 24 187/110 97 Intake and Output 07/09/20 07/09/20 07/09/20 06:59 14:59 22:59 Other: Weight 90.265 kg PHYSICAL EXAMINATION: GENERAL: The patient is alert and oriented x3, not in any acute distress. Well developed, well nourished. HEENT: Pupils are round and equally reacting to light. EOMI. No scleral icterus. No conjunctival pallor. Normocephalic, atraumatic. No pharyngeal erythema. No thyromegaly. CARDIOVASCULAR: S1 and S2 present. No murmurs, rubs, or gallops. PULMONARY: Chest is clear to auscultation, no wheezing or crackles. ABDOMEN: Significant tenderness in the left lower quadrant without any rebound, hyperactive bowel sounds MUSCULOSKELETAL: No joint swelling or deformity. EXTREMITIES: No cyanosis, clubbing, or pedal edema. NEUROLOGICAL: Gross neurological examination did not reveal any focal deficits. SKIN: No rashes. Results CBC & Chem 7: 07/09/20 09:24 07/09/20 09:24 Labs: Abnormal Lab Results - Last 24 Hours (Table) 07/09/20 07/09/20 07/09/20 Range/Units 09:24 09:24 09:24 WBC 30.3 H (3.8-10.6) k/uL Neutrophils # 27.9 H (1.3-7.7) k/uL Lymphocytes # 0.6 L (1.0-4.8) k/uL Monocytes # 1.2 H (0-1.0) k/uL Sodium 135 L (137-145) mmol/L Carbon Dioxide 17 L (22-30) mmol/L BUN 29 H (7-17) mg/dL Creatinine 1.67 H (0.52-1.04) mg/dL Glucose 194 H (74-99) mg/dL Plasma Lactic Acid Anthony 4.7 H* (0.7-2.0) mmol/L Alkaline Phosphatase 352 H (38-126) U/L Urine Appearance (Clear) Urine Protein (Negative) Urine Ketones (Negative) Urine Blood (Negative) Urine Bilirubin (Negative) Ur Leukocyte Esterase (Negative) Urine WBC (0-5) /hpf Amorphous Sediment (None) /hpf Urine Bacteria (None) /hpf Hyaline Casts (0-2) /lpf Urine Mucus (None) /hpf 07/09/20 07/09/20 Range/Units 12:38 15:30 WBC (3.8-10.6) k/uL Neutrophils # (1.3-7.7) k/uL Lymphocytes # (1.0-4.8) k/uL Monocytes # (0-1.0) k/uL Sodium (137-145) mmol/L Carbon Dioxide (22-30) mmol/L BUN (7-17) mg/dL Creatinine (0.52-1.04) mg/dL Glucose (74-99) mg/dL Plasma Lactic Acid Anthony 6.4 H* (0.7-2.0) mmol/L Alkaline Phosphatase (38-126) U/L Urine Appearance Cloudy H (Clear) Urine Protein Trace H (Negative) Urine Ketones Trace H (Negative) Urine Blood Small H (Negative) Urine Bilirubin 1+ H (Negative) Ur Leukocyte Esterase Small H (Negative) Urine WBC 8 H (0-5) /hpf Amorphous Sediment Rare H (None) /hpf Urine Bacteria Rare H (None) /hpf Hyaline Casts 3 H (0-2) /lpf Urine Mucus Rare H (None) /hpf Assessment and Plan Plan: -Severe sepsis: Secondary to colitis either infectious or ischemic colitis patient has highly elevated lactic acid continue with IV fluids at 1 25 mL per hour patient received 2 L of normal saline in ER. General surgery was consulted possibility of laparotomy tomorrow. Patient will be continued on Zosyn -Diarrhea secondary to colitis -Acute renal failure: Secondary to prerenal azotemia from severe dehydration and sepsis IV fluids as mentioned above -Anion gap metabolic acidosis secondary to lactic acidosis -Coronary artery disease -History of atrial fibrillation presently tachycardic but sinus tachycardia some nonspecific ST-T wave changes in the inferior leads patient is not on anticoagulation at home unsure about the accuracy of this diagnosis of atrial fibrillation\ -Coronary artery disease -Hypertension: Hold off on NAY inhibitor because of acute renal failure and concerns for sepsis related hypotension -Depression -DVT prophylaxis subcutaneous heparin
[2020-07-09] MEDS: PIPERACILLIN-TAZOBACTAM 3.375 GM in SODIUM CHLORIDE 0.9% 100 ML IVPB SCH (19:56)
[2020-07-09] MEDS: HEPARIN SODIUM,PORCINE/PF 5,000 UNIT/0.5 ML SYRINGE SQ SCH (23:57)
[2020-07-10] MEDS: HYDROmorphone 0.5 MG/0.5 ML SYRINGE IVP PRN ×3 (02:39→13:15)
[2020-07-10] MEDS: PIPERACILLIN-TAZOBACTAM 3.375 GM in SODIUM CHLORIDE 0.9% 100 ML IVPB SCH ×3 (03:09→21:43)
[2020-07-10] MEDS: LEVOTHYROXINE 100 MCG TAB PO SCH (06:33)
[2020-07-10] MEDS: SODIUM CHLORIDE 0.9% 1,000 ML IV SCH ×3 (06:36→16:02)
[2020-07-10] MEDS: PANTOPRAZOLE 40 MG TABLET PO SCH (07:35)
[2020-07-10 08:16] LABS: Calcium 8.3 mg/dL (8.4-10.2)
[2020-07-10] MEDS: HEPARIN SODIUM,PORCINE/PF 5,000 UNIT/0.5 ML SYRINGE SQ SCH ×2 (08:21→16:03)
--- NOTE | 2020-07-10 08:25 | P.PN ---
Progress Note - Text Progress Note Date: 07/10/20 A she was seen at the bedside. She states her pain is a 10 out of 10. She has received IV pain medications. On exam patient's tachycardic. There is evidence of rebound tenderness left lower quadrant. Patient has peritoneal signs Patiently taken today for surgery for exploratory laparotomy and possible sigmoid colectomy with end colostomy. I discussed the patient and her daughter on the phone in the other daughter at the bedside that her CAT scan yesterday showed evidence of sigmoid diverticulitis as well as possible ischemic right colon. Patient's last lactic acid was 3.5. Given the patient's overall condition with tachycardia and acute abdominal pain with rebound tenderness and recommend she go to the OR today.
[2020-07-10] MEDS: ONDANSETRON 4 MG/2 ML VIAL IVP STA (09:14)
[2020-07-10] MEDS ORDERED: FAMOTIDINE 20 MG/2 ML VIAL IV ONE (09:14)
[2020-07-10] MEDS ORDERED: LACTATED RINGERS 1,000 ML IV ONE ×2 (09:38)
[2020-07-10] MEDS ORDERED: WATER FOR INJECTION, STERILE 10 ML VIAL IV ONE (09:49)
[2020-07-10] MEDS ORDERED: fentaNYL (PF) 50 MCG/ML 2 ML AMP ONE (09:49)
[2020-07-10] MEDS ORDERED: SUCCINYLCHOLINE CHLORIDE 100 MG/5 ML SYR IV ONE (09:49)
[2020-07-10] MEDS ORDERED: NEOSTIGMINE 1 MG/ML 10 ML VIAL ONE (09:49)
[2020-07-10] MEDS ORDERED: VASOPRESSIN 20 UNIT/ML 1 ML VIAL ONE (09:49)
[2020-07-10] MEDS ORDERED: HYDROmorphone (PF) 1 MG/ML ONE (09:49)
[2020-07-10] MEDS ORDERED: ROCURONIUM 10 MG/ML (5 ML VIAL) IV ONE (09:49)
[2020-07-10] MEDS ORDERED: GLYCOPYRROLATE 0.2 MG/ML 2 ML VIAL ONE (09:49)
[2020-07-10] MEDS ORDERED: PHENYLEPHRINE-0.9% NACL SYG 1,000 MCG/10 ML SYRINGE ONE (09:49)
[2020-07-10] MEDS ORDERED: MIDAZOLAM 2 MG/2 ML VIAL ONE (09:49)
[2020-07-10] MEDS ORDERED: ETOMIDATE 2 MG/ML 10 ML VIAL ONE (09:49)
[2020-07-10] MEDS ORDERED: LIDOCAINE 1% INJ 10MG/ML (20 ML MDV) ONE (09:49)
[2020-07-10] MEDS ORDERED: SODIUM CHLORIDE 0.9% 1,000 ML IV ONE ×2 (09:52→11:16)
[2020-07-10] MEDS ORDERED: SODIUM CHLORIDE 0.9% 50 ML with ceFAZolin 2,000 MG IV ONE ×2 (10:30)
--- NOTE | 2020-07-10 11:30 | P.OP ---
Date of Procedure: 07/10/20 Preoperative Diagnosis: Acute abdomen Diverticulitis Postoperative Diagnosis: Diverticulitis with mesenteric abscess Adhesions causing partial small bowel obstruction Procedure(s) Performed: Sigmoid colectomy with end colostomy Lysis of adhesions Anesthesia: TRISTEN Surgeon: Phil Burt Estimated Blood Loss (ml): 25 Pathology: other (Sigmoid colon) Condition: stable Disposition: PACU Description of Procedure: Patient's placed on the operative table in the supine position. She received general anesthesia. Her abdomen was prepped and draped usual fashion. The abdomen was entered through a low midline incision. And then the Bookwalter tract with wound. The sigmoid colon was examined. It to be grossly inflamed. There is evidence of a mass within the mesentery the sigmoid colon which was suggestive of a mesenteric abscess. At this point the white line of Toldt was divided and sigmoid colon and left colon were mobilized. A single spot on the descending colon was chosen and the colon was transected with a GI stapler. The mesentery of the bowel was then divided using the Enseal device. The rectum was then transected with the contour stapler. The specimens of pathology. The rectal stump was tagged with a 3-0 nylon suture. The colostomy site was then ch osen anterior tunnel wall and then the colostomy was created. The colon was then brought through the colostomy site. The small bowel was then run. The patient a previous gastric bypass. There is evidence of a possible internal hernia due to an adhesion this was lysed with sharp dissection. The abdomen was irrigated is no bleeding seen. The fascia was closed with looped #1 PDS suture. Skin was closed ellie. Colostomy then matured with 3-0 Vicryl. Patient was sent to recovery room in stable condition.
[2020-07-10 12:37] LABS: Glucose,Whole Blood 110 mg/dL (75-99)
[2020-07-10] MEDS ORDERED: propofoL 100 ML IV ONE (12:41)
[2020-07-10] MEDS: HYDROmorphone 1 MG/ML 1 ML SYRINGE IVP PRN ×4 (14:18→21:40)
--- NOTE | 2020-07-10 14:38 | P.CNPUL ---
History of Present Illness Consult date: 07/10/20 Requesting physician: Edson Su Reason for consult: other (Ventilator/critical care management) Chief complaint: Abdominal pain History of present illness: This is a 74-year-old female patient who follows with Dr. Valdez as her primary care provider. She has a history of hypothyroidism, hypertension, atrial fibrillation, coronary artery disease, chronic back pain, laryngeal cancer asia tawnya 20 years ago, Guzman's palsy, bariatric surgery/gastric bypass, former smoker. She presented here to the emergency room yesterday with complaints of abdominal discomfort. Computed tomography scan of the abdomen was positive for mild acute diverticulitis along the proximal sigmoid colon. No abscess or free air. There was some liquid stool throughout the colon borderline distention of the lower ascending colon and tiny foci of air along the medial wall of the colon in this region. Small hiatal hernia with previous Suzanna-en-Y gastric bypass. She was taken to surgery today by Dr. Francis gilbert per diverticulitis with mesenteric abscess. She had undergone a sigmoid colectomy with end colostomy and lysis of adhesions. She was unable to be extubated in the recovery room and was transferred to the intensive care unit on the mechanical ventilator. Settings of assist control mode, respiratory rate 14, height of 550, 50% FiO2 and a PEEP of 5. She was not on any sedation at the time of consultation in the ICU. She was awake and alert and following commands. She was given a brief CPAP trial and Dr. Jalloh recommended extubation. The patient was extubated to 4 L nasal cannula and doing quite well. Maintaining O2 saturations in the 90s. Labs today reveal sodium 137. Potassium probe 0.0. Creatinine 1.44. C. difficile screen was negative. Bautista virus by PCR not detected. She is currently on Zosyn. Review of Systems ROS unobtainable: due to endotracheal tube Past Medical History Past Medical History: Atrial Fibrillation, Coronary Artery Disease (CAD), Cancer, Chest Pain / Angina, Eye Disorder, GERD/Reflux, Hypertension, Musculoskeletal Disorder, Osteoarthritis (OA) Additional Past Medical History / Comment(s): Peptic ulcer, chronic back pain, 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 History of Any Multi-Drug Resistant Organisms: None Reported, MRSA Date of last positivie culture/infection: 1997 MDRO Source:: left shoulder Past Surgical History: Bariatric Surgery, Cholecystectomy, Heart Catheterization, Hysterectomy, Joint Replacement, Orthopedic Surgery Additional Past Surgical History / Comment(s): Bilateral knee replacement, left shoulder rotator cuff surgery, gastric bypass, D&C, EGD/colonoscopy, laryngeal tumor removed, Ganglion Cysts both wrists.PAIN CLINIC INJECTIONS, Past Anesthesia/Blood Transfusion Reactions: No Reported Reaction Date of Last Stent Placement:: 2012 Past Psychological History: Anxiety, Depression, Panic Disorder Additional Psychological History / Comment(s): pt is curently staying with her son since recent discharge from hospital otherwise lives [place]. currently has vna and visiting physician dt hsaran Smoking Status: Former smoker Past Alcohol Use History: None Reported Additional Past Alcohol Use History / Comment(s): Pt started smoking in 1959 and quit in 1980, 1ppd. Past Drug Use History: None Reported - Past Family History Mother Family Medical History: Cancer, Congestive Heart Failure (CHF), Diabetes Mellitus, Hypertension Additional Family Medical History / Comment(s): Mother passed at 93. Father Family Medical History: Myocardial Infarction (OK) Additional Family Medical History / Comment(s): Father of a OK at the age of 39 yrs. Sister(s) Family Medical History: Cancer Brother(s) Family Medical History: Cancer, Myocardial Infarction (OK) Medications and Allergies Home Medications Medication Instructions Recorded Confirmed Type Levothyroxine Sodium [Synthroid] 200 mcg PO DAILY 01/12/19 07/09/20 History Acetaminophen with Codeine 1 tab PO QID PRN 07/09/20 07/09/20 History [Tylenol w/Codeine #4 Tablet] Pantoprazole [Protonix] 40 mg PO DAILY 07/09/20 07/09/20 History lisinopriL 40 mg PO DAILY 07/09/20 07/09/20 History traZODone HCL [Desyrel] 50 mg PO HS 07/09/20 07/09/20 History Allergies Allergy/AdvReac Type Severity Reaction Status Date / Time vancomycin Allergy Rash/Hives Verified 07/09/20 10:21 Physical Exam Vitals: Vital Signs Temp Pulse Pulse Resp BP BP BP 07/10/20 12:13 107 H 16 104/52 07/10/20 12:00 111 H 14 104/52 07/10/20 11:46 99.1 F 113 H 16 110/55 07/10/20 07:35 99.6 F 103 H 16 128/64 07/09/20 23:32 99.3 F 94 18 125/56 07/09/20 20:45 98 F 109 H 20 133/86 07/09/20 20:00 99.0 F 99 20 102/56 07/09/20 19:00 98.3 F 88 20 101/56 07/09/20 17:00 98 20 121/65 07/09/20 15:30 101 H 22 123/76 Pulse Ox 07/10/20 12:13 97 07/10/20 12:00 87 L 07/10/20 11:46 86 L 07/10/20 07:35 92 L 07/09/20 23:32 92 L 07/09/20 20:45 98 07/09/20 20:00 98 07/09/20 19:00 96 07/09/20 17:00 94 L 07/09/20 15:30 97 Intake and Output 07/09/20 07/10/20 07/10/20 22:59 06:59 14:59 Intake Total 1050 Output Total 275 Balance 775 Intake: IV 1050 Output: Urine 225 Estimated Blood Loss 50 Other: Voiding Method Bedside Commode # Bowel Movements 1 Weight 90.265 kg 87.6 kg GENERAL EXAM: Alert, following commands, intubated 74-year-old female patient, comfortable in no apparent distress. HEAD: Normocephalic. EYES: Normal reaction of pupils, equal size. NOSE: Clear with pink turbinates. THROAT: No erythema or exudates. NECK: No masses, no JVD. CHEST: No chest wall deformity. LUNGS: Equal air entry with no crackles, wheeze, rhonchi or dullness. CVS: S1 and S2 normal with no audible murmur, regular rhythm. ABDOMEN: Abdominal dressing dry and intact. No hepatosplenomegaly, absent bowel sounds, no guarding or rigidity. SPINE: No scoliosis or deformity SKIN: No rashes CENTRAL NERVOUS SYSTEM: No focal deficits, tone is normal in all 4 extremities. EXTREMITIES: There is no peripheral edema. No clubbing, no cyanosis. Peripheral pulses are intact. Results - Laboratory Findings CBC and BMP: 07/09/20 09:24 07/10/20 07:27 Abnormal lab findings: Abnormal Labs 07/09/20 07/09/20 07/09/20 09:24 09:24 09:24 WBC 30.3 H Neutrophils # 27.9 H Lymphocytes # 0.6 L Monocytes # 1.2 H Sodium 135 L Chloride Carbon Dioxide 17 L BUN 29 H Creatinine 1.67 H Glucose 194 H POC Glucose (mg/dL) Plasma Lactic Acid Anthony 4.7 H* Calcium Alkaline Phosphatase 352 H Urine Appearance Urine Protein Urine Ketones Urine Blood Urine Bilirubin Ur Leukocyte Esterase Urine WBC Amorphous Sediment Urine Bacteria Hyaline Casts Urine Mucus 07/09/20 07/09/20 07/09/20 12:38 15:30 16:02 WBC Neutrophils # Lymphocytes # Monocytes # Sodium Chloride Carbon Dioxide BUN Creatinine Glucose POC Glucose (mg/dL) Plasma Lactic Acid Anthony 6.4 H* 3.5 H* Calcium Alkaline Phosphatase Urine Appearance Cloudy H Urine Protein Trace H Urine Ketones Trace H Urine Blood Small H Urine Bilirubin 1+ H Ur Leukocyte Esterase Small H Urine WBC 8 H Amorphous Sediment Rare H Urine Bacteria Rare H Hyaline Casts 3 H Urine Mucus Rare H 07/10/20 07/10/20 07:27 12:35 WBC Neutrophils # Lymphocytes # Monocytes # Sodium Chloride 113 H Carbon Dioxide 16 L BUN 36 H Creatinine 1.44 H Glucose 107 H POC Glucose (mg/dL) 110 H Plasma Lactic Acid Anthony Calcium 8.3 L Alkaline Phosphatase Urine Appearance Urine Protein Urine Ketones Urine Blood Urine Bilirubin Ur Leukocyte Esterase Urine WBC Amorphous Sediment Urine Bacteria Hyaline Casts Urine Mucus Assessment and Plan Assessment: 1 Abdominal pain secondary to diverticulitis, adhesions and mesenteric abscess, status post sigmoid colectomy with end colostomy and lysis of adhesions. Postoperative day #0 2 Acute hypoxic respiratory failure as an expected outcome of surgery causing delayed extubation in the recovery room, successfully extubated in the ICU shortly after her arrival 3 Acute renal failure current creatinine 1.44 4 Leukocytosis secondary to above 5 History of previous Suzanna-en-Y gastric bypass 6 History of atrial fibrillation 7 Coronary artery disease 9 History of laryngeal cancer approximately 20 years ago 10 History of Guzman's palsy 11 Osteoarthritis 12 Hypertension 13 Gastric esophageal reflux disease 14 Hypothyroidism Plan: The patient was seen and evaluated by Dr. Jalloh The patient was successfully extubated shortly after arrival to the ICU Maintaining good O2 saturations in the 90s on 4 L/m per nasal cannula Chest x-ray in a.m. Probable transfer back up to the surgical floor in the a.m. Educated regarding use of the incentive spirometer and cough and deep breathing exercises We will continue to follow and make further recommendations based on her clinical status I, the cosigning physician, performed a history & physical examination of the patient. Lungs sounds are clear. Maintaining good O2 saturations in the 90s on 4 L/m per nasal cannula. I discussed the assessment and plan of care with my nurse practitioner, Anuradha Ross. I attest to the above consultation as dictated by her. Time with Patient: Greater than 30
--- NOTE | 2020-07-10 15:40 | P.PN ---
Subjective 74-year-old female came with sharp severe abdominal pain in the right lower quadrant which started last night, found to have severe diabetes mellitus with significant tenderness patient does have fever is presently having diarrhea has highly elevated lactic acid of around 7. Patient had a CT of the abdomen which showed acute diverticular colitis in the sigmoid colon area with liquid stool throughout the colon. No free a the abdomen. Patient is also acidotic secondary to lactic acidosis with the elevated creatinine of 1.67 baseline around 0.9 patient is tachycardic bit tachycardia Secondary to acidosis leukocytosis of 30,000. 07/10/2020 Patient had sigmoid colectomy with end colostomy and lysis of adhesions. Patient was a subsequently admitted to [facility] as she remained intubated patient the was extubated by the time I evaluated the patient patient is on 2 L of oxygen still having a significant pain in the surgical site area. Creatinine improved I do not have any CBC available. Constitutional: Denied any fatigue denied any fever. Cardio vascular: denied any chest pain, palpitations Gastrointestinal can urine abdominal pain as mentioned above Pulmonary: Denied any shortness of breath cough Neurologic denied any new focal deficits All inpatient medications were reviewed and appropriate changes in these medications as dictated in the interval history and assessment and plan. Objective - Vital Signs Vital signs: Vital Signs Temp 99.1 F 07/10/20 11:46 Pulse 103 H 07/10/20 14:00 Resp 19 07/10/20 14:00 BP 108/56 07/10/20 14:00 Pulse Ox 89 L 07/10/20 14:00 Intake & Output 07/09/20 07/10/20 07/10/20 18:59 06:59 18:59 Intake Total 1280 Output Total 400 Balance 880 Weight 90.265 kg 87.6 kg Intake: IV 1050 Intake, IV Titration 230 Amount Piperacillin-Tazobactam 3 100 .375 gm In Sodium Chloride 0.9% 100 ml @ 25 mls/hr IVPB Q8H [facility] Rx#: [id number] Sodium Chloride 0.9% 1, 130 000 ml @ 130 mls/hr IV . Q7H42M [facility] Rx#:[id number] Output: Urine 350 Estimated Blood Loss 50 Other: Voiding Method Bedside Commode # Bowel Movements 1 - Exam PHYSICAL EXAMINATION: GENERAL: The patient is alert and oriented x3, not in any acute distress. Well developed, well nourished. HEENT: Pupils are round and equally reacting to light. EOMI. No scleral icterus. No conjunctival pallor. Normocephalic, atraumatic. No pharyngeal erythema. No thyromegaly. CARDIOVASCULAR: S1 and S2 present. No murmurs, rubs, or gallops. PULMONARY: Chest is clear to auscultation, no wheezing or crackles. ABDOMEN: Patient has a colostomy bag on the left side with sluggish of no bowel sounds is in pain MUSCULOSKELETAL: No joint swelling or deformity. EXTREMITIES: No cyanosis, clubbing, or pedal edema. NEUROLOGICAL: Gross neurological examination did not reveal any focal deficits. SKIN: No rashes. - Labs CBC & Chem 7: 07/09/20 09:24 07/10/20 07:27 Labs: Abnormal Lab Results - Last 24 Hours (Table) 07/09/20 07/09/20 07/10/20 Range/Units 15:30 16:02 07:27 Chloride 113 H (98-107) mmol/L Carbon Dioxide 16 L (22-30) mmol/L BUN 36 H (7-17) mg/dL Creatinine 1.44 H (0.52-1.04) mg/dL Glucose 107 H (74-99) mg/dL POC Glucose (mg/dL) (75-99) mg/dL Plasma Lactic Acid Anthony 3.5 H* (0.7-2.0) mmol/L Calcium 8.3 L (8.4-10.2) mg/dL Urine Appearance Cloudy H (Clear) Urine Protein Trace H (Negative) Urine Ketones Trace H (Negative) Urine Blood Small H (Negative) Urine Bilirubin 1+ H (Negative) Ur Leukocyte Esterase Small H (Negative) Urine WBC 8 H (0-5) /hpf Amorphous Sediment Rare H (None) /hpf Urine Bacteria Rare H (None) /hpf Hyaline Casts 3 H (0-2) /lpf Urine Mucus Rare H (None) /hpf 07/10/20 Range/Units 12:35 Chloride (98-107) mmol/L Carbon Dioxide (22-30) mmol/L BUN (7-17) mg/dL Creatinine (0.52-1.04) mg/dL Glucose (74-99) mg/dL POC Glucose (mg/dL) 110 H (75-99) mg/dL Plasma Lactic Acid Anthony (0.7-2.0) mmol/L Calcium (8.4-10.2) mg/dL Urine Appearance (Clear) Urine Protein (Negative) Urine Ketones (Negative) Urine Blood (Negative) Urine Bilirubin (Negative) Ur Leukocyte Esterase (Negative) Urine WBC (0-5) /hpf Amorphous Sediment (None) /hpf Urine Bacteria (None) /hpf Hyaline Casts (0-2) /lpf Urine Mucus (None) /hpf Microbiology - Last 24 Hours (Table) 07/09/20 09:18 Blood Culture - Preliminary Blood No Growth after 24 hours Assessment and Plan Plan: -Severe sepsis: Secondary to diverticulitis, patient had sigmoid colectomy with a colostomy. Patient will be continued on Zosyn. Patient has a postoperative respiratory failure, was intubated presently extubated -Diarrhea secondary to colitis -Acute renal failure: Secondary to prerenal azotemia from severe dehydration and sepsis, improved with IV fluids. -Anion gap metabolic acidosis secondary to lactic acidosis improved -Coronary artery disease -History of atrial fibrillation presently sinus rhythm tachycardia resolved -Coronary artery disease -Hypertension: Hold off on NAY inhibitor because of acute renal failure and concerns for sepsis related hypotension -Depression -DVT prophylaxis subcutaneous heparin
[2020-07-11] MEDS: HEPARIN SODIUM,PORCINE/PF 5,000 UNIT/0.5 ML SYRINGE SQ SCH ×4 (00:14→23:13)
[2020-07-11] MEDS: HYDROmorphone 1 MG/ML 1 ML SYRINGE IVP PRN ×8 (00:15→23:14)
[2020-07-11] MEDS: SODIUM CHLORIDE 0.9% 1,000 ML IV SCH ×2 (00:16→06:36)
[2020-07-11] MEDS: PIPERACILLIN-TAZOBACTAM 3.375 GM in SODIUM CHLORIDE 0.9% 100 ML IVPB SCH ×3 (04:05→20:34)
[2020-07-11] MEDS: LEVOTHYROXINE 100 MCG TAB PO SCH (06:09)
[2020-07-11] MEDS: PANTOPRAZOLE 40 MG TABLET PO SCH (08:11)
[2020-07-11 08:33] LABS: Basophils # (A) 0.1 k/uL (0-0.2); Basophils % (A) 0 %; Eosinophils # (A) 0.2 k/uL (0-0.7); Eosinophils % (A) 1 %; HCT 34.6 % (34.0-46.0); HGB 11.2 gm/dL (11.4-16.0); Hypochromasia Slight; Lymphocytes # (A) 1.8 k/uL (1.0-4.8); Lymphocytes % (A) 12 %; MCH 31.7 pg (25.0-35.0); MCHC 32.4 g/dL (31.0-37.0); MCV 97.6 fL (80.0-100.0); Mean Platelet Volume 8.4; Monocytes # (A) 0.7 k/uL (0-1.0); Monocytes % (A) 5 %; Neutrophils # (A) 12.3 k/uL (1.3-7.7); Neutrophils % (A) 81 %; Platelet Count 305 k/uL (150-450); RBC 3.55 m/uL (3.80-5.40); RDW 13.2 % (11.5-15.5); WBC 15.2 k/uL (3.8-10.6)
[2020-07-11 08:57] LABS: African American GFR (CKD) >90 (>60 ml/min/1.73 sqM); Anion Gap 9 mmol/L; Blood Urea Nitrogen 20 mg/dL (7-17); Calcium 8.5 mg/dL (8.4-10.2); Carbon Dioxide 15 mmol/L (22-30); Chloride 118 mmol/L (98-107); Glucose 59 mg/dL (74-99); Non-African American GFR(CKD) 86 (>60 ml/min/1.73 sqM); Sodium 142 mmol/L (137-145)
[2020-07-11 08:58] LABS: Potassium 4.6 mmol/L (3.5-5.1)
--- NOTE | 2020-07-11 09:17 | XR ---
EXAMINATION TYPE: XR chest 1V portable DATE OF EXAM: 07/11/2020 Comparison: 05/17/2020 Clinical History: 74-year-old female Post op hypoxemia Findings: Resurfacing left shoulder arthroplasty. Heart upper limits of normal in size. Atherosclerotic arch ca lcifications. Bony vasculature within normal limits. New band of atelectasis at the right hilum and s ome patchy left basilar and retrocardiac opacity. Impression: New band of atelectasis at the right hilum and patchy left basilar opacity, likely areas of atelectas is. Follow-up if concern for developing infiltrate at the left base.
--- NOTE | 2020-07-11 11:03 | P.PN ---
Progress Note - Text Progress Note Date: 07/11/20 The patient's postoperative day 1 from sigmoid colectomy with end colostomy. She has complaints of incisional pain. On exam vital signs are stable. Abdomen soft. Colostomy has no function. Colostomy is pink. Status post Jace procedure for diverticulitis. Patient can receive supportive care.
--- NOTE | 2020-07-11 11:29 | P.PN ---
Subjective 74-year-old female came with sharp severe abdominal pain in the right lower quadrant which started last night, found to have severe diabetes mellitus with significant tenderness patient does have fever is presently having diarrhea has highly elevated lactic acid of around 7. Patient had a CT of the abdomen which showed acute diverticular colitis in the sigmoid colon area with liquid stool throughout the colon. No free a the abdomen. Patient is also acidotic secondary to lactic acidosis with the elevated creatinine of 1.67 baseline around 0.9 patient is tachycardic bit tachycardia Secondary to acidosis leukocytosis of 30,000. 07/10/2020 Patient had sigmoid colectomy with end colostomy and lysis of adhesions. Patient was a subsequently admitted to [facility] as she remained intubated patient the was extubated by the time I evaluated the patient patient is on 2 L of oxygen still having a significant pain in the surgical site area. Creatinine improved I do not have any CBC available. 07/11/2020 Patient is comparing of significant pain, Toradol will be added is already on Protonix. Patient chloride is very high patient will be switched to half-normal saline. Patient has noniron gap metabolic acidosis secondary to hyperchloremia. Patient's creatinine improved and presently is a 0.68. Patient remains on Zosyn. Patient is not passing gas yet sluggish bowel sounds Constitutional: Denied any fatigue denied any fever. Cardio vascular: denied any chest pain, palpitations Gastrointestinal continue to have abdominal pain as mentioned above Pulmonary: Denied any shortness of breath cough Neurologic denied any new focal deficits All inpatient medications were reviewed and appropriate changes in these medications as dictated in the interval history and assessment and plan. Objective - Vital Signs Vital signs: Vital Signs Temp 98.3 F 07/11/20 08:00 Pulse 72 07/11/20 08:00 Resp 16 07/11/20 08:00 BP 97/59 07/11/20 08:00 Pulse Ox 93 L 07/11/20 08:00 Intake & Output 07/10/20 07/11/20 07/11/20 18:59 06:59 18:59 Intake Total 1800 1260 660 Output Total 605 800 450 Balance 1195 460 210 Weight 92.6 kg Intake: IV 1050 1010 Sodium Chloride 0.9% 1, 910 000 ml @ 130 mls/hr IV . Q7H42M [facility] Rx#:[id number] Zosyn 100 Intake, IV Titration 750 130 Amount Piperacillin-Tazobactam 3 100 .375 gm In Sodium Chloride 0.9% 100 ml @ 25 mls/hr IVPB Q8H [facility] Rx#: [id number] Sodium Chloride 0.9% 1, 650 130 000 ml @ 130 mls/hr IV . Q7H42M [facility] Rx#:[id number] Oral 120 660 Output: Urine 555 800 450 Estimated Blood Loss 50 Other: Voiding Method Indwelling Catheter Indwelling Catheter Indwelling Catheter - Exam PHYSICAL EXAMINATION: GENERAL: The patient is alert and oriented x3, not in any acute distress. Well developed, well nourished. HEENT: Pupils are round and equally reacting to light. EOMI. No scleral icterus. No conjunctival pallor. Normocephalic, atraumatic. No pharyngeal erythema. No thyromegaly. CARDIOVASCULAR: S1 and S2 present. No murmurs, rubs, or gallops. PULMONARY: Chest is clear to auscultation, no wheezing or crackles. ABDOMEN: Patient has a colostomy bag on the left side with sluggish of no bowel sounds. MUSCULOSKELETAL: No joint swelling or deformity. EXTREMITIES: No cyanosis, clubbing, or pedal edema. NEUROLOGICAL: Gross neurological examination did not reveal any focal deficits. SKIN: No rashes. - Labs CBC & Chem 7: 07/11/20 06:16 07/11/20 06:16 Labs: Abnormal Lab Results - Last 24 Hours (Table) 07/10/20 07/11/20 07/11/20 Range/Units 12:35 06:16 06:16 WBC 15.2 H (3.8-10.6) k/uL RBC 3.55 L (3.80-5.40) m/uL Hgb 11.2 L (11.4-16.0) gm/dL Neutrophils # 12.3 H (1.3-7.7) k/uL Chloride 118 H (98-107) mmol/L Carbon Dioxide 15 L (22-30) mmol/L BUN 20 H (7-17) mg/dL Glucose 59 L (74-99) mg/dL POC Glucose (mg/dL) 110 H (75-99) mg/dL Microbiology - Last 24 Hours (Table) 07/09/20 09:18 Blood Culture - Preliminary Blood No Growth after 24 hours Assessment and Plan Plan: -Severe sepsis: Secondary to diverticulitis, patient had sigmoid colectomy with a colostomy. Patient will be continued on Zosyn. Patient has a postoperative respiratory failure, was intubated presently extubated on 07/10/2020 -Diarrhea secondary to colitis -Acute renal failure: Secondary to prerenal azotemia from severe dehydration and sepsis, improved with IV fluids. Cutting down the IV fluids -Anion gap metabolic acidosis secondary to lactic acidosis improved, patient presently has non-anion gap and folic acidosis secondary to hyperchloremia and IV fluids are being switched as mentioned above. -Coronary artery disease -History of atrial fibrillation presently sinus rhythm tachycardia resolved -Coronary artery disease -Hypertension: Hold off on NAY inhibitor because of acute renal failure and concerns for sepsis related hypotension, patient remains hypotensive -Depression -DVT prophylaxis subcutaneous heparin
[2020-07-11] MEDS: KETOROLAC 15 MG/ML 1 ML VIAL IVP PRN (12:58)
[2020-07-11] MEDS: SODIUM CHLORIDE 0.45% 1,000 ML IV SCH ×2 (13:01→23:12)
--- NOTE | 2020-07-11 17:17 | P.PN ---
Subjective Progress Note Date: 07/11/20 Principal diagnosis: Postoperative ICU and ventilator management. This is a 74-year-old female patient who follows with Dr. Valdez as her primary care provider. 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 She presented here to the emergency room yesterday with complaints of abdominal discomfort. Computed tomography scan of the abdomen was positive for mild acute diverticulitis along the proximal sigmoid colon. No abscess or free air. There was some liquid stool throughout the colon borderline distention of the lower ascending colon and tiny foci of air along the medial wall of the colon in this region. Small hiatal hernia with previous Suzanna-en-Y gastric bypass. She was taken to surgery today by Dr. Francis gilbert per diverticulitis with mesenteric abscess. She had undergone a sigmoid colectomy with end colostomy and lysis of adhesions. She was unable to be extubated in the recovery room and was transferred to the intensive care unit on the mechanical ventilator. Settings of assist control mode, respiratory rate 14, height of 550, 50% FiO2 and a PEEP of 5. She was not on any sedation at the time of consultation in the ICU. She was awake and alert and following commands. She was given a brief CPAP trial and Dr. Jalloh recommended extubation. The patient was extubated to 4 L nasal cannula and doing quite well. Maintaining O2 saturations in the 90s. Labs today reveal sodium 137. Potassium probe 0.0. Creatinine 1.44. C. difficile screen was negative. Bautista virus by PCR not detected. She is currently on Zosyn. Progress note dated 07/11/2020. 74-year-old female seen by the ICU team yesterday. The patient is postop day #1, status post exploratory laparotomy, sigmoid colectomy, and end colostomy, and lysis of adhesions. The patient was returned back to the ICU, on the ventilator. The ICU team went down to see her, and was able to extubate her shortly after arriving back to the intensive care unit. The patient does have a history of acute kidney injury, previous Suzanna-en-Y gastric bypass, atrial fibrillation, CAD, laryngeal carcinoma, some 20 years ago, Guzman's palsy, osteoarthritis, hypertension, gastroesophageal reflux disease, and hypothyroidism. White count is 15.2, hemoglobin 11.2, hematocrit 34.6, and platelet count 305,000. Sodium 142, potassium 4.6, chloride 118, CO2 15, anion gap 9, BUN 20, and creatinine 0.68. The chest x-ray was pretty good, with some atelectasis in the right hilar area and some patchy left basilar opacity, likely representing atelectasis. Objective - Vital Signs Vital signs: Vital Signs Temp 98.3 F 07/11/20 08:00 Pulse 88 07/11/20 16:00 Resp 16 07/11/20 16:00 BP 131/61 07/11/20 16:00 Pulse Ox 97 07/11/20 16:00 Intake & Output 07/10/20 07/11/20 07/11/20 18:59 06:59 18:59 Intake Total 1800 1260 780 Output Total 605 800 450 Balance 1195 460 330 Weight 92.6 kg Intake: IV 1050 1010 Sodium Chloride 0.9% 1, 910 000 ml @ 130 mls/hr IV . Q7H42M [facility] Rx#:[id number] Zosyn 100 Intake, IV Titration 750 130 Amount Piperacillin-Tazobactam 3 100 .375 gm In Sodium Chloride 0.9% 100 ml @ 25 mls/hr IVPB Q8H [facility] Rx#: [id number] Sodium Chloride 0.9% 1, 650 130 000 ml @ 130 mls/hr IV . Q7H42M [facility] Rx#:[id number] Oral 120 780 Output: Urine 555 800 450 Estimated Blood Loss 50 Other: Voiding Method Indwelling Catheter Indwelling Catheter Indwelling Catheter - Exam No acute distress, oriented 3. The patient was a bit sleepy. Currently on 3 L nasal cannula, saturation 97%. HEENT examination is grossly unremarkable. Mucous membranes are moist. No oral lesions. Neck supple. Full range of motion. No adenopathy thyromegaly or neck vein distention. Cardiovascular examination reveals regular rhythm rate. S1-S2 normal. No S3 or S4. No discernible murmur noted. Heart rate 88 bpm. Lungs reveal mostly clear breath sounds. A few scattered rhonchi are noted. No wheezes or crackles. Abdomen soft bowel sounds are heard. No masses or tenderness. Colostomy is noted. Extremities are intact. No cyanosis clubbing or edema. Skin is without rash or lesion. Neurologic examination is brief but nonfocal. - Labs CBC & Chem 7: 07/11/20 06:16 07/11/20 06:16 Labs: Abnormal Lab Results - Last 24 Hours (Table) 07/11/20 07/11/20 Range/Units 06:16 06:16 WBC 15.2 H (3.8-10.6) k/uL RBC 3.55 L (3.80-5.40) m/uL Hgb 11.2 L (11.4-16.0) gm/dL Neutrophils # 12.3 H (1.3-7.7) k/uL Chloride 118 H (98-107) mmol/L Carbon Dioxide 15 L (22-30) mmol/L BUN 20 H (7-17) mg/dL Glucose 59 L (74-99) mg/dL Microbiology - Last 24 Hours (Table) 07/09/20 09:18 Blood Culture - Preliminary Blood No Growth after 48 hours Assessment and Plan Assessment: Postop day #1, status post exploratory laparotomy, sigmoid colectomy, end colostomy, and lysis of adhesions. The patient had diverticulitis, adhesions as well as a mesenteric abscess. Routine postoperative ventilator management, with extubation on July 10. Acute renal failure, much improved. History of previous Suzanna-en-Y gastric bypass. History of atrial fibrillation. Coronary artery disease. History of laryngeal carcinoma, 20 years ago. History of Guzman's palsy. History of osteoarthritis. History of hypertension. Gastroesophageal reflux disease. Hypothyroidism. Plan: Plan dated 07/11/2020. The patient was successfully extubated on July 10. The patient looks to be doing relatively well. She was bit sleepy today. Recommend deep breathing, coughing, and clearing of secretions. We also recommend hourly use of the incentive spirometer. We will continue to follow. The chest x-ray, labs, and medications are all reviewed. Her chest x-ray does show some areas of atelectasis in the right midlung, and left lower lobe. Time with Patient: Less than 30
[2020-07-12] MEDS: HYDROmorphone 1 MG/ML 1 ML SYRINGE IVP PRN ×6 (02:46→18:42)
[2020-07-12] MEDS: PIPERACILLIN-TAZOBACTAM 3.375 GM in SODIUM CHLORIDE 0.9% 100 ML IVPB SCH ×3 (02:54→20:05)
[2020-07-12] MEDS: LEVOTHYROXINE 100 MCG TAB PO SCH (06:08)
[2020-07-12] MEDS: PANTOPRAZOLE 40 MG TABLET PO SCH (09:39)
[2020-07-12] MEDS: HEPARIN SODIUM,PORCINE/PF 5,000 UNIT/0.5 ML SYRINGE SQ SCH ×3 (09:39→23:04)
--- NOTE | 2020-07-12 11:18 | P.PN ---
Subjective Progress Note Date: 07/12/20 CHIEF COMPLAINT: Abdominal pain HISTORY OF PRESENT ILLNESS: Patient is status post sigmoid colectomy with end colostomy and lysis of adhesions for diverticulitis with mesenteric abscess and adhesions causing partial small bowel obstruction. Postop day #2. She's sitting in bedside chair. She is complaining of abdominal pain. She states that her pain is controlled with pain medication. Denies any nausea or vomiting. Ostomy not functioning yet. Afebrile. WBC 15.2 PHYSICAL EXAM: VITAL SIGNS: Reviewed. GENERAL: Well-developed in no acute distress. HEENT: No sclera icterus. Extraocular movements grossly intact. Moist buccal mucosa. Head is atraumatic, normocephalic. ABDOMEN: Soft. Nondistended. Ostomy sanguinous fluid. Incisional dressing minimal dried blood in middle of dressing NEUROLOGIC: Alert and oriented. Cranial nerves II through XII grossly intact. ASSESSMENT: 1. Diverticulitis with mesenteric abscess and adhesions causing partial small bowel obstruction status post sigmoid colectomy with end colostomy and lysis of adhesions PLAN: -Continue clear liquid diet -Continue pain medication as needed -Continue antibiotics -Encouraged patient to increase activity -Encouraged patient to use incentive spirometer -GI prophylaxis Protonix and DVT prophylaxis subcu heparin Physician Forest[employer] note has been reviewed by physician. Signing provider agrees with the documented findings, assessment, and plan of care. Objective - Vital Signs Vital signs: Vital Signs Temp 98.7 F 07/12/20 07:29 Pulse 91 07/12/20 07:29 Resp 14 07/12/20 07:29 BP 118/55 07/12/20 07:29 Pulse Ox 93 L 07/12/20 07:29 Intake & Output 07/11/20 07/12/20 07/12/20 18:59 06:59 18:59 Intake Total 900 600 360 Output Total 700 310 Balance 200 290 360 Intake: Intake, IV Titration 600 Amount Sodium Chloride 0.45% 1, 600 000 ml @ 75 mls/hr IV . [id number] [facility] Rx#:[id number] Oral 900 360 Output: Urine 700 310 Other: Voiding Method Indwelling Catheter Indwelling Catheter Indwelling Catheter - Labs CBC & Chem 7: 07/11/20 06:16 07/11/20 06:16 Labs: Microbiology - Last 24 Hours (Table) 07/09/20 09:18 Blood Culture - Preliminary Blood No Growth after 48 hours
[2020-07-12] MEDS: SODIUM CHLORIDE 0.45% 1,000 ML IV SCH (12:07)
--- NOTE | 2020-07-12 13:01 | P.PN ---
Subjective 74-year-old female came with sharp severe abdominal pain in the right lower quadrant which started last night, found to have severe diabetes mellitus with significant tenderness patient does have fever is presently having diarrhea has highly elevated lactic acid of around 7. Patient had a CT of the abdomen which showed acute diverticular colitis in the sigmoid colon area with liquid stool throughout the colon. No free a the abdomen. Patient is also acidotic secondary to lactic acidosis with the elevated creatinine of 1.67 baseline around 0.9 patient is tachycardic bit tachycardia Secondary to acidosis leukocytosis of 30,000. 07/10/2020 Patient had sigmoid colectomy with end colostomy and lysis of adhesions. Patient was a subsequently admitted to [facility] as she remained intubated patient the was extubated by the time I evaluated the patient patient is on 2 L of oxygen still having a significant pain in the surgical site area. Creatinine improved I do not have any CBC available. 07/11/2020 Patient is comparing of significant pain, Toradol will be added is already on Protonix. Patient chloride is very high patient will be switched to half-normal saline. Patient has noniron gap metabolic acidosis secondary to hyperchloremia. Patient's creatinine improved and presently is a 0.68. Patient remains on Zosyn. Patient is not passing gas yet sluggish bowel sounds 07/12/2020 Patient is still not passing much gas was still having significant pain probably will need to be discharged to subacute rehabilitation upon discharge. Patient remains on Zosyn. Constitutional: Denied any fatigue denied any fever. Cardio vascular: denied any chest pain, palpitations Gastrointestinal continue to have abdominal pain as mentioned above Pulmonary: Denied any shortness of breath cough Neurologic denied any new focal deficits All inpatient medications were reviewed and appropriate changes in these medications as dictated in the interval history and assessment and plan. Objective - Vital Signs Vital signs: Vital Signs Temp 97.3 F L 07/12/20 12:18 Pulse 93 07/12/20 12:18 Resp 18 07/12/20 12:18 BP 176/72 07/12/20 12:18 Pulse Ox 96 07/12/20 12:18 Intake & Output 07/11/20 07/12/20 07/12/20 18:59 06:59 18:59 Intake Total 900 600 360 Output Total 700 310 Balance 200 290 360 Intake: Intake, IV Titration 600 Amount Sodium Chloride 0.45% 1, 600 000 ml @ 75 mls/hr IV . [id number] [facility] Rx#:[id number] Oral 900 360 Output: Urine 700 310 Other: Voiding Method Indwelling Catheter Indwelling Catheter Indwelling Catheter - Exam PHYSICAL EXAMINATION: GENERAL: The patient is alert and oriented x3, not in any acute distress. Well developed, well nourished. HEENT: Pupils are round and equally reacting to light. EOMI. No scleral icterus. No conjunctival pallor. Normocephalic, atraumatic. No pharyngeal erythema. No thyromegaly. CARDIOVASCULAR: S1 and S2 present. No murmurs, rubs, or gallops. PULMONARY: Chest is clear to auscultation, no wheezing or crackles. ABDOMEN: Patient has a colostomy bag on the left side with sluggish of no bowel sounds. MUSCULOSKELETAL: No joint swelling or deformity. EXTREMITIES: No cyanosis, clubbing, or pedal edema. NEUROLOGICAL: Gross neurological examination did not reveal any focal deficits. SKIN: No rashes. - Labs CBC & Chem 7: 07/11/20 06:16 07/11/20 06:16 Labs: Microbiology - Last 24 Hours (Table) 07/09/20 09:18 Blood Culture - Preliminary Blood No Growth after 72 hours Assessment and Plan Plan: -Severe sepsis: Secondary to diverticulitis, patient had sigmoid colectomy with a colostomy. Patient will be continued on Zosyn. Patient has a postoperative respiratory failure, was intubated presently extubated on 07/10/2020. His physical therapy and outpatient therapy will evaluate the patient -Diarrhea secondary to colitis for resolved at this time patient is not passing gas at this time status post colectomy. -Acute renal failure: Secondary to prerenal azotemia from severe dehydration and sepsis, improved with IV fluids. Patient is a liquid diet IV fluids will be discontinued -Anion gap metabolic acidosis secondary to lactic acidosis improved, patient presently has non-anion gap and folic acidosis secondary to hyperchloremia and IV fluids are being switched as mentioned above. -Coronary artery disease -History of atrial fibrillation presently sinus rhythm tachycardia resolved -Coronary artery disease -Hypertension: Hold off on NAY inhibitor because of acute renal failure and concerns for sepsis related hypotension, patient remains hypotensive -Depression -DVT prophylaxis subcutaneous heparin
--- NOTE | 2020-07-12 15:45 | P.PN ---
Subjective Progress Note Date: 07/12/20 Principal diagnosis: Postoperative ICU and ventilator management. This is a 74-year-old female patient who follows with Dr. Valdez as her primary care provider. 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 She presented here to the emergency room yesterday with complaints of abdominal discomfort. Computed tomography scan of the abdomen was positive for mild acute diverticulitis along the proximal sigmoid colon. No abscess or free air. There was some liquid stool throughout the colon borderline distention of the lower ascending colon and tiny foci of air along the medial wall of the colon in this region. Small hiatal hernia with previous Suzanna-en-Y gastric bypass. She was taken to surgery today by Dr. Francis gilbert per diverticulitis with mesenteric abscess. She had undergone a sigmoid colectomy with end colostomy and lysis of adhesions. She was unable to be extubated in the recovery room and was transferred to the intensive care unit on the mechanical ventilator. Settings of assist control mode, respiratory rate 14, height of 550, 50% FiO2 and a PEEP of 5. She was not on any sedation at the time of consultation in the ICU. She was awake and alert and following commands. She was given a brief CPAP trial and Dr. Jalloh recommended extubation. The patient was extubated to 4 L nasal cannula and doing quite well. Maintaining O2 saturations in the 90s. Labs today reveal sodium 137. Potassium probe 0.0. Creatinine 1.44. C. difficile screen was negative. Bautista virus by PCR not detected. She is currently on Zosyn. Progress note dated 07/11/2020. 74-year-old female seen by the ICU team yesterday. The patient is postop day #1, status post exploratory laparotomy, sigmoid colectomy, and end colostomy, and lysis of adhesions. The patient was returned back to the ICU, on the ventilator. The ICU team went down to see her, and was able to extubate her shortly after arriving back to the intensive care unit. The patient does have a history of acute kidney injury, previous Suzanna-en-Y gastric bypass, atrial fibrillation, CAD, laryngeal carcinoma, some 20 years ago, Guzman's palsy, osteoarthritis, hypertension, gastroesophageal reflux disease, and hypothyroidism. White count is 15.2, hemoglobin 11.2, hematocrit 34.6, and platelet count 305,000. Sodium 142, potassium 4.6, chloride 118, CO2 15, anion gap 9, BUN 20, and creatinine 0.68. The chest x-ray was pretty good, with some atelectasis in the right hilar area and some patchy left basilar opacity, likely representing atelectasis. Progress note dated 07/12/2020. This is a 74-year-old female, postop day #2, status post exploratory laparotomy, sigmoid colectomy, and end colostomy, with lysis of adhesions. The patient came back to the intensive care unit but was extubated quickly by the ICU team. She's currently in room 350. Patient seemed be doing relatively well. Currently, the patient is on room air. She seemed to be doing relatively well. She has no major complaints. No new labs today. No recent chest x-rays to report. Objective - Vital Signs Vital signs: Vital Signs Temp 97.3 F L 07/12/20 12:18 Pulse 93 07/12/20 14:00 Resp 18 07/12/20 14:00 BP 181/79 07/12/20 14:00 Pulse Ox 94 L 07/12/20 14:00 Intake & Output 07/11/20 07/12/20 07/12/20 18:59 06:59 18:59 Intake Total 900 600 480 Output Total 700 310 300 Balance 200 290 180 Intake: Intake, IV Titration 600 Amount Sodium Chloride 0.45% 1, 600 000 ml @ 75 mls/hr IV . [id number] [facility] Rx#:[id number] Oral 900 480 Output: Urine 700 310 300 Other: Voiding Method Indwelling Catheter Indwelling Catheter Indwelling Catheter - Exam No acute distress, oriented 3. The patient was a bit sleepy. Currently on room air. Saturations are mid 90s. HEENT examination is grossly unremarkable. Mucous membranes are moist. No oral lesions. Neck supple. Full range of motion. No adenopathy thyromegaly or neck vein distention. Cardiovascular examination reveals regular rhythm rate. S1-S2 normal. No S3 or S4. No discernible murmur noted. Heart rate 93 bpm. Lungs reveal mostly clear breath sounds. A few scattered rhonchi are noted. No wheezes or crackles. Abdomen soft bowel sounds are heard. No masses or tenderness. Colostomy is noted. Extremities are intact. No cyanosis clubbing or edema. Skin is without rash or lesion. Neurologic examination is brief but nonfocal. - Labs CBC & Chem 7: 07/11/20 06:16 07/11/20 06:16 Labs: Microbiology - Last 24 Hours (Table) 07/09/20 09:18 Blood Culture - Preliminary Blood No Growth after 72 hours Assessment and Plan Assessment: Postop day #2, status post exploratory laparotomy, sigmoid colectomy, end colostomy, and lysis of adhesions. The patient had diverticulitis, adhesions as well as a mesenteric abscess. Routine postoperative ventilator management, with extubation on July 10. Acute renal failure, much improved. History of previous Suzanna-en-Y gastric bypass. History of atrial fibrillation. Coronary artery disease. History of laryngeal carcinoma, 20 years ago. History of Guzman's palsy. History of osteoarthritis. History of hypertension. Gastroesophageal reflux disease. Hypothyroidism. Plan: Plan dated 07/11/2020. The patient was successfully extubated on July 10. The patient looks to be doing relatively well. She was bit sleepy today. Recommend deep breathing, coughing, and clearing of secretions. We also recommend hourly use of the incentive spirometer. We will continue to follow. The chest x-ray, labs, and medications are all reviewed. Her chest x-ray does show some areas of atelectasis in the right midlung, and left lower lobe. Plan dated 07/12/2020. The patient was successfully extubated on July 10. She is on room air. She seemed be doing relatively well. We encourage deep breathing, coughing, clearing her secretions. We also encouraged hourly use of the incentive spirometer. We will continue to follow make recommendations were appropriate. No new labs or x-rays to report today. Time with Patient: Less than 30
[2020-07-12] MEDS: KETOROLAC 15 MG/ML 1 ML VIAL IVP PRN (20:05)
[2020-07-13] MEDS: HYDROmorphone 1 MG/ML 1 ML SYRINGE IVP PRN ×6 (00:08→23:39)
[2020-07-13] MEDS: PIPERACILLIN-TAZOBACTAM 3.375 GM in SODIUM CHLORIDE 0.9% 100 ML IVPB SCH ×3 (03:39→20:20)
[2020-07-13] MEDS: KETOROLAC 15 MG/ML 1 ML VIAL IVP PRN (03:48)
[2020-07-13] MEDS: LEVOTHYROXINE 100 MCG TAB PO SCH (06:03)
[2020-07-13] MEDS: HEPARIN SODIUM,PORCINE/PF 5,000 UNIT/0.5 ML SYRINGE SQ SCH ×2 (08:25→17:12)
[2020-07-13] MEDS: PANTOPRAZOLE 40 MG TABLET PO SCH (08:25)
--- NOTE | 2020-07-13 11:28 | P.PN ---
Subjective Progress Note Date: 07/13/20 CHIEF COMPLAINT: Abdominal pain HISTORY OF PRESENT ILLNESS: Patient is status post sigmoid colectomy with end colostomy and lysis of adhesions for diverticulitis with mesenteric abscess and adhesions causing partial small bowel obstruction. Postop day #3. She's sitting in bedside chair. She is complaining of abdominal pain. Patient is receiving IV Dilaudid and Toradol. Denies any nausea or vomiting. Ostomy not functioning yet. Afebrile. Labs pending PHYSICAL EXAM: VITAL SIGNS: Reviewed. GENERAL: Well-developed in no acute distress. HEENT: No sclera icterus. Extraocular movements grossly intact. Moist buccal mucosa. Head is atraumatic, normocephalic. ABDOMEN: Soft. Nondistended. Ostomy sanguinous fluid. Incision site had minimal bleeding in the middle of the incision near the umbilicus. Otherwise clean dry and intact NEUROLOGIC: Alert and oriented. Cranial nerves II through XII grossly intact. ASSESSMENT: 1. Diverticulitis with mesenteric abscess and adhesions causing partial small bowel obstruction status post sigmoid colectomy with end colostomy and lysis of adhesions PLAN: -Continue clear liquid diet -Continue pain medication as needed -Continue antibiotics -Encouraged patient to increase activity -Encouraged patient to use incentive spirometer -GI prophylaxis Protonix and DVT prophylaxis subcu heparin Physician Triage Assistant note has been reviewed by physician. Signing provider agrees with the documented findings, assessment, and plan of care. Objective - Vital Signs Vital signs: Vital Signs Temp 98.1 F 07/13/20 08:10 Pulse 89 07/13/20 10:23 Resp 19 07/13/20 10:23 BP 162/69 07/13/20 10:23 Pulse Ox 97 07/13/20 10:23 Intake & Output 07/12/20 07/13/20 07/13/20 18:59 06:59 18:59 Intake Total 1080 1025 0 Output Total 680 800 Balance 400 225 0 Intake: IV 200 Zosyn 200 Intake, IV Titration 825 Amount Sodium Chloride 0.45% 1, 825 000 ml @ 75 mls/hr IV . [id number] [facility] Rx#:[id number] Oral 1080 0 Output: Urine 650 800 Uretheral (Bernal) 350 Stool 30 Other: Voiding Method Indwelling Catheter Indwelling Catheter Indwelling Catheter - Labs CBC & Chem 7: 07/11/20 06:16 07/11/20 06:16 Labs: Microbiology - Last 24 Hours (Table) 07/09/20 09:18 Blood Culture - Preliminary Blood No Growth after 72 hours
[2020-07-13 11:35] VITALS: BMI 36.1
[2020-07-13 11:44] LABS: African American GFR (CKD) >90 (>60 ml/min/1.73 sqM); Anion Gap 7 mmol/L; Blood Urea Nitrogen 12 mg/dL (7-17); Calcium 8.4 mg/dL (8.4-10.2); Carbon Dioxide 20 mmol/L (22-30); Chloride 111 mmol/L (98-107); Glucose 104 mg/dL (74-99); Non-African American GFR(CKD) >90 (>60 ml/min/1.73 sqM); Potassium 4.2 mmol/L (3.5-5.1); Sodium 138 mmol/L (137-145)
[2020-07-13 11:53] LABS: HCT 31.1 % (34.0-46.0); HGB 10.6 gm/dL (11.4-16.0); MCH 32.2 pg (25.0-35.0); MCHC 34.1 g/dL (31.0-37.0); MCV 94.6 fL (80.0-100.0); Mean Platelet Volume 9.1; Platelet Count 309 k/uL (150-450); RBC 3.28 m/uL (3.80-5.40); RDW 12.9 % (11.5-15.5); WBC 8.8 k/uL (3.8-10.6)
--- NOTE | 2020-07-13 14:19 | P.PN ---
Subjective 74-year-old female came with sharp severe abdominal pain in the right lower quadrant which started last night, found to have severe diabetes mellitus with significant tenderness patient does have fever is presently having diarrhea has highly elevated lactic acid of around 7. Patient had a CT of the abdomen which showed acute diverticular colitis in the sigmoid colon area with liquid stool throughout the colon. No free a the abdomen. Patient is also acidotic secondary to lactic acidosis with the elevated creatinine of 1.67 baseline around 0.9 patient is tachycardic bit tachycardia Secondary to acidosis leukocytosis of 30,000. 07/10/2020 Patient had sigmoid colectomy with end colostomy and lysis of adhesions. Patient was a subsequently admitted to [facility] as she remained intubated patient the was extubated by the time I evaluated the patient patient is on 2 L of oxygen still having a significant pain in the surgical site area. Creatinine improved I do not have any CBC available. 07/11/2020 Patient is comparing of significant pain, Toradol will be added is already on Protonix. Patient chloride is very high patient will be switched to half-normal saline. Patient has noniron gap metabolic acidosis secondary to hyperchloremia. Patient's creatinine improved and presently is a 0.68. Patient remains on Zosyn. Patient is not passing gas yet sluggish bowel sounds 07/12/2020 Patient is still not passing much gas was still having significant pain probably will need to be discharged to subacute rehabilitation upon discharge. Patient remains on Zosyn. 07/13/2020 Patient's symptoms continues to complain of severe abdominal pain passing gas requiring pain medications quite often. Patient is postoperative day 3 Constitutional: Denied any fatigue denied any fever. Cardio vascular: denied any chest pain, palpitations Gastrointestinal continue to have abdominal pain as mentioned above Pulmonary: Denied any shortness of breath cough Neurologic denied any new focal deficits All inpatient medications were reviewed and appropriate changes in these medications as dictated in the interval history and assessment and plan. Objective - Vital Signs Vital signs: Vital Signs Temp 96.6 F L 07/13/20 12:00 Pulse 86 07/13/20 12:00 Resp 18 07/13/20 12:00 BP 131/102 07/13/20 12:00 Pulse Ox 93 L 07/13/20 12:00 Intake & Output 07/12/20 07/13/20 07/13/20 18:59 06:59 18:59 Intake Total 1080 1025 240 Output Total 680 800 Balance 400 225 240 Weight 92.6 kg Intake: IV 200 Zosyn 200 Intake, IV Titration 825 Amount Sodium Chloride 0.45% 1, 825 000 ml @ 75 mls/hr IV . [id number] [facility] Rx#:[id number] Oral 1080 240 Output: Urine 650 800 Uretheral (Bernal) 350 Stool 30 Other: Voiding Method Indwelling Catheter Indwelling Catheter Indwelling Catheter - Exam PHYSICAL EXAMINATION: GENERAL: The patient is alert and oriented x3, not in any acute distress. Well developed, well nourished. HEENT: Pupils are round and equally reacting to light. EOMI. No scleral icterus. No conjunctival pallor. Normocephalic, atraumatic. No pharyngeal erythema. No thyromegaly. CARDIOVASCULAR: S1 and S2 present. No murmurs, rubs, or gallops. PULMONARY: Chest is clear to auscultation, no wheezing or crackles. ABDOMEN: Patient has a colostomy bag on the left side , bowel sounds are present passing gas into the colostomy MUSCULOSKELETAL: No joint swelling or deformity. EXTREMITIES: No cyanosis, clubbing, or pedal edema. NEUROLOGICAL: Gross neurological examination did not reveal any focal deficits. SKIN: No rashes. - Labs CBC & Chem 7: 07/13/20 09:24 07/13/20 09:24 Labs: Abnormal Lab Results - Last 24 Hours (Table) 07/13/20 07/13/20 Range/Units 09:24 09:24 RBC 3.28 L (3.80-5.40) m/uL Hgb 10.6 L (11.4-16.0) gm/dL Hct 31.1 L (34.0-46.0) % Chloride 111 H (98-107) mmol/L Carbon Dioxide 20 L (22-30) mmol/L Creatinine 0.47 L (0.52-1.04) mg/dL Glucose 104 H (74-99) mg/dL Microbiology - Last 24 Hours (Table) 07/09/20 09:18 Blood Culture - Preliminary Blood No Growth after 96 hours Assessment and Plan Plan: -Severe sepsis: Secondary to diverticulitis, patient had sigmoid colectomy with a colostomy. Patient will be continued on Zosyn. Patient has a postoperative respiratory failure, was intubated presently extubated on 07/10/2020. His physical therapy and outpatient therapy will evaluate the patient -Diarrhea secondary to colitis , patient is status post a colectomy and colostomy passing gas still having severe abdominal pain -Acute renal failure: Secondary to prerenal azotemia from severe dehydration and sepsis, improved with IV fluids. Patient is a liquid diet, off IV fluids no -Anion gap metabolic acidosis secondary to lactic acidosis improved, patient presently has non-anion gap and folic acidosis secondary to hyperchloremia and IV fluids are being switched as mentioned above. -Coronary artery disease -History of atrial fibrillation presently sinus rhythm tachycardia resolved -Coronary artery disease -Hypertension: Hold off on NAY inhibitor , blood pressures are very well controlled at this time -Depression -DVT prophylaxis subcutaneous heparin
--- NOTE | 2020-07-13 16:29 | P.PN ---
Subjective Progress Note Date: 07/13/20 Principal diagnosis: Postoperative ICU and ventilator management. This is a 74-year-old female patient who follows with Dr. Valdez as her primary care provider. 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 She presented here to the emergency room yesterday with complaints of abdominal discomfort. Computed tomography scan of the abdomen was positive for mild acute diverticulitis along the proximal sigmoid colon. No abscess or free air. There was some liquid stool throughout the colon borderline distention of the lower ascending colon and tiny foci of air along the medial wall of the colon in this region. Small hiatal hernia with previous Suzanna-en-Y gastric bypass. She was taken to surgery today by Dr. Francis gilbert per diverticulitis with mesenteric abscess. She had undergone a sigmoid colectomy with end colostomy and lysis of adhesions. She was unable to be extubated in the recovery room and was transferred to the intensive care unit on the mechanical ventilator. Settings of assist control mode, respiratory rate 14, height of 550, 50% FiO2 and a PEEP of 5. She was not on any sedation at the time of consultation in the ICU. She was awake and alert and following commands. She was given a brief CPAP trial and Dr. Jalloh recommended extubation. The patient was extubated to 4 L nasal cannula and doing quite well. Maintaining O2 saturations in the 90s. Labs today reveal sodium 137. Potassium probe 0.0. Creatinine 1.44. C. difficile screen was negative. Bautista virus by PCR not detected. She is currently on Zosyn. Progress note dated 07/11/2020. 74-year-old female seen by the ICU team yesterday. The patient is postop day #1, status post exploratory laparotomy, sigmoid colectomy, and end colostomy, and lysis of adhesions. The patient was returned back to the ICU, on the ventilator. The ICU team went down to see her, and was able to extubate her shortly after arriving back to the intensive care unit. The patient does have a history of acute kidney injury, previous Suzanna-en-Y gastric bypass, atrial fibrillation, CAD, laryngeal carcinoma, some 20 years ago, Guzman's palsy, osteoarthritis, hypertension, gastroesophageal reflux disease, and hypothyroidism. White count is 15.2, hemoglobin 11.2, hematocrit 34.6, and platelet count 305,000. Sodium 142, potassium 4.6, chloride 118, CO2 15, anion gap 9, BUN 20, and creatinine 0.68. The chest x-ray was pretty good, with some atelectasis in the right hilar area and some patchy left basilar opacity, likely representing atelectasis. Progress note dated 07/12/2020. This is a 74-year-old female, postop day #2, status post exploratory laparotomy, sigmoid colectomy, and end colostomy, with lysis of adhesions. The patient came back to the intensive care unit but was extubated quickly by the ICU team. She's currently in room 350. Patient seemed be doing relatively well. Currently, the patient is on room air. She seemed to be doing relatively well. She has no major complaints. No new labs today. No recent chest x-rays to report. Progress note dated 07/13/2020. 74-year-old female, postop day #2, status post exploratory laparotomy, sigmoid colectomy, and colostomy, and lysis of adhesions. The patient was initially admitted to the intensive care unit, vented. The ICU team went and saw her, and quickly extubated her. Currently, she is resting comfortably in room 350. She's not requiring any supplemental oxygen. She's not on any IV fluids. She seemed be doing relatively well. We do encourage her to use the incentive spirometer. Objective - Vital Signs Vital signs: Vital Signs Temp 96.6 F L 07/13/20 12:00 Pulse 86 07/13/20 12:00 Resp 18 07/13/20 12:00 BP 131/102 07/13/20 12:00 Pulse Ox 93 L 07/13/20 12:00 Intake & Output 07/12/20 07/13/20 07/13/20 18:59 06:59 18:59 Intake Total 1080 1025 240 Output Total 680 800 125 Balance 400 225 115 Weight 92.6 kg Intake: IV 200 Zosyn 200 Intake, IV Titration 825 Amount Sodium Chloride 0.45% 1, 825 000 ml @ 75 mls/hr IV . [id number] [facility] Rx#:[id number] Oral 1080 240 Output: Urine 650 800 125 Uretheral (Bernal) 350 Stool 30 Other: Voiding Method Indwelling Catheter Indwelling Catheter Indwelling Catheter - Exam No acute distress, oriented 3. The patient was a bit sleepy. Currently on room air. Saturations are mid 90s. HEENT examination is grossly unremarkable. Mucous membranes are moist. No oral lesions. Neck supple. Full range of motion. No adenopathy thyromegaly or neck vein di stention. Cardiovascular examination reveals regular rhythm rate. S1-S2 normal. No S3 or S4. No discernible murmur noted. Heart rate 88 bpm. Lungs reveal mostly clear breath sounds. A few scattered rhonchi are noted. No wheezes or crackles. Abdomen soft bowel sounds are heard. No masses or tenderness. Colostomy is noted. Extremities are intact. No cyanosis clubbing or edema. Skin is without rash or lesion. Neurologic examination is brief but nonfocal. - Labs CBC & Chem 7: 07/13/20 09:24 07/13/20 09:24 Labs: Abnormal Lab Results - Last 24 Hours (Table) 07/13/20 07/13/20 Range/Units 09:24 09:24 RBC 3.28 L (3.80-5.40) m/uL Hgb 10.6 L (11.4-16.0) gm/dL Hct 31.1 L (34.0-46.0) % Chloride 111 H (98-107) mmol/L Carbon Dioxide 20 L (22-30) mmol/L Creatinine 0.47 L (0.52-1.04) mg/dL Glucose 104 H (74-99) mg/dL Microbiology - Last 24 Hours (Table) 07/09/20 09:18 Blood Culture - Preliminary Blood No Growth after 96 hours Assessment and Plan Assessment: Postop day #3, status post exploratory laparotomy, sigmoid colectomy, end colostomy, and lysis of adhesions. The patient had diverticulitis, adhesions as well as a mesenteric abscess. Routine postoperative ventilator management, with extubation on July 10. Acute renal failure, much improved. History of previous Suzanna-en-Y gastric bypass. History of atrial fibrillation. Coronary artery disease. History of laryngeal carcinoma, 20 years ago. History of Guzman's palsy. History of osteoarthritis. History of hypertension. Gastroesophageal reflux disease. Hypothyroidism. Plan: Plan dated 07/11/2020. The patient was successfully extubated on July 10. The patient looks to be doing relatively well. She was bit sleepy today. Recommend deep breathing, coughing, and clearing of secretions. We also recommend hourly use of the incentive spirometer. We will continue to follow. The chest x-ray, labs, and medications are all reviewed. Her chest x-ray does show some areas of atelectasis in the right midlung, and left lower lobe. Plan dated 07/12/2020. The patient was successfully extubated on July 10. She is on room air. She seemed be doing relatively well. We encourage deep breathing, coughing, clearing her secretions. We also encouraged hourly use of the incentive spirometer. We will continue to follow make recommendations were appropriate. No new labs or x-rays to report today. Plan dated 07/13/2020. The patient continues to do well. Respiratory status is stable. She's currently on room air. She's not receiving any IV fluids. We do recommend deep breathing coughing clearing his secretions, and hourly use of incentive spirometer. We will continue to follow. Prognosis is guarded. Time with Patient: Less than 30
[2020-07-14] MEDS: HEPARIN SODIUM,PORCINE/PF 5,000 UNIT/0.5 ML SYRINGE SQ SCH ×3 (00:31→15:56)
[2020-07-14] MEDS: HYDROmorphone 1 MG/ML 1 ML SYRINGE IVP PRN ×5 (01:35→21:06)
[2020-07-14] MEDS: PIPERACILLIN-TAZOBACTAM 3.375 GM in SODIUM CHLORIDE 0.9% 100 ML IVPB SCH ×3 (04:10→21:07)
[2020-07-14 05:48] LABS: African American GFR (CKD) >90 (>60 ml/min/1.73 sqM); Anion Gap 5 mmol/L; Blood Urea Nitrogen 8 mg/dL (7-17); Calcium 8.2 mg/dL (8.4-10.2); Carbon Dioxide 20 mmol/L (22-30); Chloride 112 mmol/L (98-107); Glucose 93 mg/dL (74-99); Non-African American GFR(CKD) >90 (>60 ml/min/1.73 sqM); Potassium 3.3 mmol/L (3.5-5.1); Sodium 137 mmol/L (137-145)
[2020-07-14] MEDS: LEVOTHYROXINE 100 MCG TAB PO SCH (05:48)
[2020-07-14] MEDS ORDERED: POTASSIUM CHLORIDE ER 20 MEQ TAB.ER PO STA (08:18)
[2020-07-14] MEDS: PANTOPRAZOLE 40 MG TABLET PO SCH (09:33)
[2020-07-14] MEDS: ONDANSETRON 4 MG/2 ML VIAL IVP PRN (11:00)
--- NOTE | 2020-07-14 11:15 | P.PN ---
Subjective Progress Note Date: 07/14/20 Principal diagnosis: Status post exploratory laparotomy sigmoid colectomy and colostomy with lysis of adhesions, postoperative day #3. This is a 74-year-old female patient who follows with Dr. Valdez as her primary care provider. 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 She presented here to the emergency room yesterday with complaints of abdominal discomfort. Computed tomography scan of the abdomen was positive for mild acute diverticulitis along the proximal sigmoid colon. No abscess or free air. There was some liquid stool throughout the colon borderline distention of the lower ascending colon and tiny foci of air along the medial wall of the colon in this region. Small hiatal hernia with previous Suzanna-en-Y gastric bypass. She was taken to surgery today by Dr. Francis gilbert per diverticulitis with mesenteric abscess. She had undergone a sigmoid colectomy with end colostomy and lysis of adhesions. She was unable to be extubated in the recovery room and was transferred to the intensive care unit on the mechanical ventilator. Settings of assist control mode, respiratory rate 14, height of 550, 50% FiO2 and a PEEP of 5. She was not on any sedation at the time of consultation in the ICU. She was awake and alert and following commands. She was given a brief CPAP trial and Dr. Jalloh recommended extubation. The patient was extubated to 4 L nasal cannula and doing quite well. Maintaining O2 saturations in the 90s. Labs today reveal sodium 137. Potassium probe 0.0. Creatinine 1.44. C. difficile screen was negative. Bautista virus by PCR not detected. She is currently on Zosyn. Progress note dated 07/11/2020. 74-year-old female seen by the ICU team yesterday. The patient is postop day #1, status post exploratory laparotomy, sigmoid colectomy, and end colostomy, a nd lysis of adhesions. The patient was returned back to the ICU, on the ventilator. The ICU team went down to see her, and was able to extubate her shortly after arriving back to the intensive care unit. The patient does have a history of acute kidney injury, previous Suzanna-en-Y gastric bypass, atrial fibrillation, CAD, laryngeal carcinoma, some 20 years ago, Guzman's palsy, osteoarthritis, hypertension, gastroesophageal reflux disease, and hypothyroidism. White count is 15.2, hemoglobin 11.2, hematocrit 34.6, and platelet count 305,000. Sodium 142, potassium 4.6, chloride 118, CO2 15, anion gap 9, BUN 20, and creatinine 0.68. The chest x-ray was pretty good, with some atelectasis in the right hilar area and some patchy left basilar opacity, likely representing atelectasis. Progress note dated 07/12/2020. This is a 74-year-old female, postop day #2, status post exploratory laparotomy, sigmoid colectomy, and end colostomy, with lysis of adhesions. The patient came back to the intensive care unit but was extubated quickly by the ICU team. She's currently in room 350. Patient seemed be doing relatively well. Currently, the patient is on room air. She seemed to be doing relatively well. She has no major complaints. No new labs today. No recent chest x-rays to report. Progress note dated 07/13/2020. 74-year-old female, postop day #2, status post exploratory laparotomy, sigmoid colectomy, and colostomy, and lysis of adhesions. The patient was initially admitted to the intensive care unit, vented. The ICU team went and saw her, and quickly extubated her. Currently, she is resting comfortably in room 350. She's not requiring any supplemental oxygen. She's not on any IV fluids. She seemed be doing relatively well. We do encourage her to use the incentive sp irometer. Patient was reevaluated today on 07/14/2020, patient is now on the regular medical floor, seems to be doing well, relatively asymptomatic. She is presently on room air, and her O2 saturations 92%. Potassium is a bit low at 3.3 today, being corrected as per protocol. The rest of her labs are basically unremarkable. Objective - Vital Signs Vital signs: Vital Signs Temp 98.6 F 07/14/20 04:52 Pulse 82 07/14/20 04:52 Resp 18 07/13/20 20:00 BP 129/74 07/14/20 04:52 Pulse Ox 92 L 07/14/20 04:52 Intake & Output 07/13/20 07/14/20 07/14/20 18:59 06:59 18:59 Intake Total 340 200 Output Total 125 480 Balance 215 -280 Weight 92.6 kg Intake: IV 100 Zosyn 100 Oral 240 200 Output: Urine 125 450 Stool 30 Other: Voiding Method Indwelling Catheter Indwelling Catheter Indwelling Catheter - Exam Physical Exam revealed a 74-year-old female in no distress. Patient is on room air. Head: Atraumatic, normocephalic. HEENT:[Neck is supple.] [No neck masses.] [No thyromegaly.] [No JVD.] Chest: [Clear throughout, no crackles, no rhonchi, no wheezes.] Cardiac Exam: [Normal S1 and S2, no S3 gallop, no murmur.] Abdomen: [Soft, nontender, no megaly, no rebound, no guarding, normal bowel sounds.] Colostomy seems to be intact. Extremities: [No clubbing, no edema, no cyanosis.] Good pulses bilaterally. Neurological Exam: [No focal neurologic deficit.] Alert oriented 3, no gross focal deficits. Psychiatric: Normal mood affect and normal mental status examination. Skin: No rashes. - Labs CBC & Chem 7: 07/13/20 09:24 07/14/20 04:48 Labs: Abnormal Lab Results - Last 24 Hours (Table) 07/13/20 07/13/20 07/14/20 Range/Units 09:24 09:24 04:48 RBC 3.28 L (3.80-5.40) m/uL Hgb 10.6 L (11.4-16.0) gm/dL Hct 31.1 L (34.0-46.0) % Potassium 3.3 L (3.5-5.1) mmol/L Chloride 111 H 112 H (98-107) mmol/L Carbon Dioxide 20 L 20 L (22-30) mmol/L Creatinine 0.47 L 0.39 L (0.52-1.04) mg/dL Glucose 104 H (74-99) mg/dL Calcium 8.2 L (8.4-10.2) mg/dL Microbiology - Last 24 Hours (Table) 07/09/20 09:18 Blood Culture - Preliminary Blood No Growth after 96 hours Assessment and Plan Assessment: Impression: Status post exploratory laparotomy sigmoid colectomy and colostomy lysis of adhesions postoperative day #4. History of previous Suzanna-en-Y gastric bypass surgery. Chronic atrial fibrillation. Coronary artery disease. Hypothyroidism. History of Guzman's palsy. GERD without esophagitis. Postoperative atelectasis, expected considering her surgery. Recommendation: Continue incentive spirometer. Ambulate patient. Continue to monitor electrolytes and daily labs. Advanced diet as tolerated once cleared by surgery. We'll continue to follow. Time with Patient: Less than 30
--- NOTE | 2020-07-14 13:43 | P.PN ---
Subjective Progress Note Date: 07/14/20 CHIEF COMPLAINT: Abdominal pain HISTORY OF PRESENT ILLNESS: Patient is status post sigmoid colectomy with end colostomy and lysis of adhesions for diverticulitis with mesenteric abscess and adhesions causing partial small bowel obstruction. Postop day #4. She's sitting in bedside chair. She is complaining of abdominal pain. Patient is receiving IV Dilaudid and Toradol. Denies any nausea or vomiting. Ostomy not functioning yet. Afebrile. Potassium 3.3 sodium 137 creatinine 0.39 Patient seen and examined with Dr. atkins PHYSICAL EXAM: VITAL SIGNS: Reviewed. GENERAL: Well-developed in no acute distress. HEENT: No sclera icterus. Extraocular movements grossly intact. Moist buccal mucosa. Head is atraumatic, normocephalic. ABDOMEN: Soft. Nondistended. Ostomy sanguinous fluid. Dressing clean dry and intact NEUROLOGIC: Alert and oriented. Cranial nerves II through XII grossly intact. ASSESSMENT: 1. Diverticulitis with mesenteric abscess and adhesions causing partial small bowel obstruction status post sigmoid colectomy with end colostomy and lysis of adhesions 2. Hypokalemia PLAN: -Replace potassium -Continue clear liquid diet -Continue pain medication as needed -Continue antibiotics -Encouraged patient to increase activity -Encouraged patient to use incentive spirometer -GI prophylaxis Protonix and DVT prophylaxis subcu heparin Physician Principal Examiner note has been reviewed by physician. Signing provider agrees with the documented findings, assessment, and plan of care. Objective - Vital Signs Vital signs: Vital Signs Temp 98.1 F 07/14/20 11:44 Pulse 99 07/14/20 11:44 Resp 18 07/14/20 11:44 BP 102/66 07/14/20 11:44 Pulse Ox 97 07/14/20 11:44 Intake & Output 07/13/20 07/14/20 07/14/20 18:59 06:59 18:59 Intake Total 340 200 Output Total 125 480 Balance 215 -280 Weight 92.6 kg Intake: IV 100 Zosyn 100 Oral 240 200 Output: Urine 125 450 Stool 30 Other: Voiding Method Indwelling Catheter Indwelling Catheter Indwelling Catheter - Labs CBC & Chem 7: 07/13/20 09:24 07/14/20 04:48 Labs: Abnormal Lab Results - Last 24 Hours (Table) 07/14/20 Range/Units 04:48 Potassium 3.3 L (3.5-5.1) mmol/L Chloride 112 H (98-107) mmol/L Carbon Dioxide 20 L (22-30) mmol/L Creatinine 0.39 L (0.52-1.04) mg/dL Calcium 8.2 L (8.4-10.2) mg/dL Microbiology - Last 24 Hours (Table) 07/09/20 09:18 Blood Culture - Preliminary Blood No Growth after 120 hours
--- NOTE | 2020-07-14 14:49 | P.PN ---
Subjective Progress Note Date: 07/14/20 74-year-old female came with sharp severe abdominal pain in the right lower quadrant which started last night, found to have severe diabetes mellitus with significant tenderness patient does have fever is presently having diarrhea has highly elevated lactic acid of around 7. Patient had a CT of the abdomen which showed acute diverticular colitis in the sigmoid colon area with liquid stool throughout the colon. No free a the abdomen. Patient is also acidotic secondary to lactic acidosis with the elevated creatinine of 1.67 baseline around 0.9 patient is tachycardic bit tachycardia Secondary to acidosis leukocytosis of 30,000. 07/10/2020 Patient had sigmoid colectomy with end colostomy and lysis of adhesions. Patient was a subsequently admitted to [facility] as she remained intubated patient the was extubated by the time I evaluated the patient patient is on 2 L of oxygen still having a significant pain in the surgical site area. Creatinine improved I do not have any CBC available. 07/11/2020 Patient is comparing of significant pain, Toradol will be added is already on Protonix. Patient chloride is very high patient will be switched to half-normal saline. Patient has noniron gap metabolic acidosis secondary to hyperchloremia. Patient's creatinine improved and presently is a 0.68. Patient remains on Zosyn. Patient is not passing gas yet sluggish bowel sounds 07/12/2020 Patient is still not passing much gas was still having significant pain probably will need to be discharged to subacute rehabilitation upon discharge. Patient remains on Zosyn. 07/13/2020 Patient's symptoms continues to complain of severe abdominal pain passing gas requiring pain medications quite often. Patient is postoperative day 3 07/14/2020 Patient is seen and evaluated and follow-up this morning currently sitting up in the chair as physical therapy and nursing staff have been attempting to reinfo rce increasing activity. Patient states she was up working with physical therapy and was able to walk some steps with a walker. IV narcotics have been adjusted as patient has been requesting IV Dilaudid every 2-3 hours. Small amounts of gas noted in the ostomy with no stool output at this time. Patient is maintained on clear liquids and will continue. Patient continues to have some abdominal discomfort although denies any nausea or vomiting. Potassium was found to be 3.3 today and being replaced and will repeat a.m. labs. Sodium is 137 and current creatinine is 0.39. Constitutional: Denied any fatigue denied any fever. Cardio vascular: denied any chest pain, palpitations Gastrointestinal continue to have abdominal pain as mentioned above Pulmonary: Denied any shortness of breath cough Neurologic denied any new focal deficits All inpatient medications were reviewed and appropriate changes in these medications as dictated in the interval history and assessment and plan. Objective - Vital Signs Vital signs: Vital Signs Temp 98.6 F 07/14/20 04:52 Pulse 82 07/14/20 04:52 Resp 18 07/13/20 20:00 BP 129/74 07/14/20 04:52 Pulse Ox 92 L 07/14/20 04:52 Intake & Output 07/13/20 07/14/20 07/14/20 18:59 06:59 18:59 Intake Total 340 200 Output Total 125 480 Balance 215 -280 Weight 92.6 kg Intake: IV 100 Zosyn 100 Oral 240 200 Output: Urine 125 450 Stool 30 Other: Voiding Method Indwelling Catheter Indwelling Catheter - Exam GENERAL: The patient is alert and oriented x3, not in any acute distress. Sitting up in the chair. Well developed, well nourished. HEENT: Pupils are round and equally reacting to light. EOMI. No scleral icterus. No conjunctival pallor. Normocephalic, atraumatic. No pharyngeal erythema. No thyromegaly. CARDIOVASCULAR: S1 and S2 present. No murmurs, rubs, or gallops. PULMONARY: Chest is clear to auscultation, no wheezing or crackles. ABDOMEN: Patient has a colostomy bag on the left side , bowel sounds are present passing gas into the colostomy, no stool output noted as of yet MUSCULOSKELETAL: No joint swelling or deformity. EXTREMITIES: No cyanosis, clubbing, or pedal edema. NEUROLOGICAL: Gross neurological examination did not reveal any focal deficits. SKIN: No rashes. - Labs CBC & Chem 7: 07/13/20 09:24 07/14/20 04:48 Labs: Abnormal Lab Results - Last 24 Hours (Table) 07/13/20 07/13/20 07/14/20 Range/Units 09:24 09:24 04:48 RBC 3.28 L (3.80-5.40) m/uL Hgb 10.6 L (11.4-16.0) gm/dL Hct 31.1 L (34.0-46.0) % Potassium 3.3 L (3.5-5.1) mmol/L Chloride 111 H 112 H (98-107) mmol/L Carbon Dioxide 20 L 20 L (22-30) mmol/L Creatinine 0.47 L 0.39 L (0.52-1.04) mg/dL Glucose 104 H (74-99) mg/dL Calcium 8.2 L (8.4-10.2) mg/dL Microbiology - Last 24 Hours (Table) 07/09/20 09:18 Blood Culture - Preliminary Blood No Growth after 96 hours Assessment and Plan Assessment: -Severe sepsis: Secondary to diverticulitis, patient had sigmoid colectomy with a colostomy. Patient will be continued on Zosyn. Patient had postoperative respiratory failure, was intubated presently extubated on 07/10/2020. PT/OT following recommending subacute rehab and social work is following working on accepting facilities -Diarrhea secondary to colitis , patient is status post a colectomy and colostomy passing gas still having severe abdominal pain with no reports of stool noted as of yet in the ostomy -Acute renal failure: Secondary to prerenal azotemia from severe dehydration and sepsis, improved with IV fluids. Patient is on clear liquid diet -Anion gap metabolic acidosis secondary to lactic acidosis improved, patient presently has non-anion gap and metabolic acidosis secondary to hyperchloremia, IV fluids discontinued -Coronary artery disease -History of atrial fibrillation presently sinus rhythm, tachycardia resolved -Hypertension: Hold off on NAY inhibitor, blood pressures are very well controlled at this time -Depression -DVT prophylaxis subcutaneous heparin
[2020-07-15] MEDS: HYDROmorphone 1 MG/ML 1 ML SYRINGE IVP PRN ×4 (00:46→21:06)
[2020-07-15] MEDS: HEPARIN SODIUM,PORCINE/PF 5,000 UNIT/0.5 ML SYRINGE SQ SCH ×3 (00:49→16:30)
[2020-07-15 05:42] LABS: Basophils % (A) 0 %; Eosinophils # (A) 0.6 k/uL (0-0.7); Eosinophils % (A) 8 %; HCT 29.7 % (34.0-46.0); HGB 9.9 gm/dL (11.4-16.0); Lymphocytes # (A) 1.4 k/uL (1.0-4.8); Lymphocytes % (A) 17 %; MCH 30.4 pg (25.0-35.0); MCHC 33.2 g/dL (31.0-37.0); MCV 91.5 fL (80.0-100.0); Mean Platelet Volume 7.4; Monocytes # (A) 0.5 k/uL (0-1.0); Monocytes % (A) 6 %; Neutrophils # (A) 5.2 k/uL (1.3-7.7); Neutrophils % (A) 66 %; Platelet Count 319 k/uL (150-450); RBC 3.24 m/uL (3.80-5.40); RDW 13.6 % (11.5-15.5); WBC 7.8 k/uL (3.8-10.6)
[2020-07-15] MEDS: PIPERACILLIN-TAZOBACTAM 3.375 GM in SODIUM CHLORIDE 0.9% 100 ML IVPB SCH ×3 (05:46→21:07)
[2020-07-15] MEDS: LEVOTHYROXINE 100 MCG TAB PO SCH (05:46)
[2020-07-15] MEDS: PANTOPRAZOLE 40 MG TABLET PO SCH (09:37)
[2020-07-15] MEDS: KETOROLAC 15 MG/ML 1 ML VIAL IVP PRN ×2 (09:37→16:30)
--- NOTE | 2020-07-15 11:13 | P.PN ---
Subjective Progress Note Date: 07/15/20 Principal diagnosis: Status post exploratory laparotomy sigmoid colectomy and colostomy with lysis of adhesions, postoperative day #5 This is a 74-year-old female patient who follows with Dr. Valdez as her primary care provider. 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 She presented here to the emergency room yesterday with complaints of abdominal discomfort. Computed tomography scan of the abdomen was positive for mild acute diverticulitis along the proximal sigmoid colon. No abscess or free air. There was some liquid stool throughout the colon borderline distention of the lower ascending colon and tiny foci of air along the medial wall of the colon in this region. Small hiatal hernia with previous Suzanna-en-Y gastric bypass. She was taken to surgery today by Dr. Francis gilbert per diverticulitis with mesenteric abscess. She had undergone a sigmoid colectomy with end colostomy and lysis of adhesions. She was unable to be extubated in the recovery room and was transferred to the intensive care unit on the mechanical ventilator. Settings of assist control mode, respiratory rate 14, height of 550, 50% FiO2 and a PEEP of 5. She was not on any sedation at the time of consultation in the ICU. She was awake and alert and following commands. She was given a brief CPAP trial and Dr. Jalloh recommended extubation. The patient was extubated to 4 L nasal cannula and doing quite well. Maintaining O2 saturations in the 90s. Labs today reveal sodium 137. Potassium probe 0.0. Creatinine 1.44. C. difficile screen was negative. Bautista virus by PCR not detected. She is currently on Zosyn. Progress note dated 07/11/2020. 74-year-old female seen by the ICU team yesterday. The patient is postop day #1, status post exploratory laparotomy, sigmoid colectomy, and end colostomy, an d lysis of adhesions. The patient was returned back to the ICU, on the ventilator. The ICU team went down to see her, and was able to extubate her shortly after arriving back to the intensive care unit. The patient does have a history of acute kidney injury, previous Suzanna-en-Y gastric bypass, atrial fibrillation, CAD, laryngeal carcinoma, some 20 years ago, Guzman's palsy, osteoarthritis, hypertension, gastroesophageal reflux disease, and hypothyroidism. White count is 15.2, hemoglobin 11.2, hematocrit 34.6, and platelet count 305,000. Sodium 142, potassium 4.6, chloride 118, CO2 15, anion gap 9, BUN 20, and creatinine 0.68. The chest x-ray was pretty good, with some atelectasis in the right hilar area and some patchy left basilar opacity, likely representing atelectasis. Progress note dated 07/12/2020. This is a 74-year-old female, postop day #2, status post exploratory laparotomy, sigmoid colectomy, and end colostomy, with lysis of adhesions. The patient came back to the intensive care unit but was extubated quickly by the ICU team. She's currently in room 350. Patient seemed be doing relatively well. Currently, the patient is on room air. She seemed to be doing relatively well. She has no major complaints. No new labs today. No recent chest x-rays to report. Progress note dated 07/13/2020. 74-year-old female, postop day #2, status post exploratory laparotomy, sigmoid colectomy, and colostomy, and lysis of adhesions. The patient was initially admitted to the intensive care unit, vented. The ICU team went and saw her, and quickly extubated her. Currently, she is resting comfortably in room 350. She's not requiring any supplemental oxygen. She's not on any IV fluids. She seemed be doing relatively well. We do encourage her to use the incentive spi rometer. Patient was reevaluated today on 07/14/2020, patient is now on the regular medical floor, seems to be doing well, relatively asymptomatic. She is presently on room air, and her O2 saturations 92%. Potassium is a bit low at 3.3 today, being corrected as per protocol. The rest of her labs are basically unremarkable. Patient was reevaluated today on 07/15/2020, remains on the regular medical floor, patient is doing great, she has no active pulmonary symptoms, no cough no wheezing no shortness of breath, she is hemodynamically stable, her colostomy seems to be functioning. CBC is relatively normal. Objective - Vital Signs Vital signs: Vital Signs Temp 98.3 F 07/15/20 04:44 Pulse 88 07/15/20 04:44 Resp 20 07/15/20 04:44 BP 172/79 07/15/20 04:44 Pulse Ox 94 L 07/15/20 04:44 Intake & Output 07/14/20 07/15/20 07/15/20 18:59 06:59 18:59 Output Total 500 Balance -500 Output: Urine 500 Other: Voiding Method Indwelling Catheter Indwelling Catheter Indwelling Catheter - Exam Physical Exam revealed a 74-year-old female in no distress. Patient is on room air. Head: Atraumatic, normocephalic. HEENT:[Neck is supple.] [No neck masses.] [No thyromegaly.] [No JVD.] Chest: [Clear throughout, no crackles, no rhonchi, no wheezes.] Cardiac Exam: [Normal S1 and S2, no S3 gallop, no murmur.] Abdomen: [Soft, nontender, no megaly, no rebound, no guarding, normal bowel sounds.] Colostomy seems to be intact. And seems to be functioning well. Extremities: [No clubbing, no edema, no cyanosis.] Good pulses bilaterally. Neurological Exam: [No focal neurologic deficit.] Alert oriented 3, no gross focal deficits. Psychiatric: Normal mood affect and normal mental status examination. Skin: No rashes. - Labs CBC & Chem 7: 07/15/20 05:10 07/14/20 04:48 Labs: Abnormal Lab Results - Last 24 Hours (Table) 07/15/20 Range/Units 05:10 RBC 3.24 L (3.80-5.40) m/uL Hgb 9.9 L (11.4-16.0) gm/dL Hct 29.7 L (34.0-46.0) % Microbiology - Last 24 Hours (Table) 07/09/20 09:18 Blood Culture - Preliminary Blood No Growth after 120 hours Assessment and Plan Assessment: Impression: Status post exploratory laparotomy sigmoid colectomy and colostomy lysis of adhesions postoperative day #5 History of previous Suzanna-en-Y gastric bypass surgery. Chronic atrial fibrillation. Coronary artery disease. Hypothyroidism. History of Guzman's palsy. GERD without esophagitis. Postoperative atelectasis, expected considering her surgery. Recommendation: Continue incentive spirometer. Ambulate patient. Continue to monitor electrolytes and daily labs. Advanced diet as tolerated once cleared by surgery. We will follow the patient on when necessary basis. Time with Patient: Less than 30
[2020-07-15 12:11] LABS: African American GFR (CKD) 118.9 (60.0-200.0); Anion Gap 10.5 mmol/L (4.00-12.00); BUN/Creat Ratio 12.5 Ratio (12.00-20.00); Calcium 8.2 mg/dL (8.7-10.3); Carbon Dioxide 19.5 mmol/L (21.6-31.8); Non-African American GFR(CKD) 102.6 (60.0-200.0); Potassium 3.5 mmol/L (3.5-5.5)
[2020-07-15] MEDS ORDERED: POTASSIUM CHLORIDE ER 20 MEQ TAB.ER PO STA (12:42)
--- NOTE | 2020-07-15 12:49 | P.PN ---
Subjective Progress Note Date: 07/15/20 74-year-old female came with sharp severe abdominal pain in the right lower quadrant which started last night, found to have severe diabetes mellitus with significant tenderness patient does have fever is presently having diarrhea has highly elevated lactic acid of around 7. Patient had a CT of the abdomen which showed acute diverticular colitis in the sigmoid colon area with liquid stool throughout the colon. No free a the abdomen. Patient is also acidotic secondary to lactic acidosis with the elevated creatinine of 1.67 baseline around 0.9 patient is tachycardic bit tachycardia Secondary to acidosis leukocytosis of 30,000. 07/10/2020 Patient had sigmoid colectomy with end colostomy and lysis of adhesions. Patient was a subsequently admitted to [facility] as she remained intubated patient the was extubated by the time I evaluated the patient patient is on 2 L of oxygen still having a significant pain in the surgical site area. Creatinine improved I do not have any CBC available. 07/11/2020 Patient is comparing of significant pain, Toradol will be added is already on Protonix. Patient chloride is very high patient will be switched to half-normal saline. Patient has noniron gap metabolic acidosis secondary to hyperchloremia. Patient's creatinine improved and presently is a 0.68. Patient remains on Zosyn. Patient is not passing gas yet sluggish bowel sounds 07/12/2020 Patient is still not passing much gas was still having significant pain probably will need to be discharged to subacute rehabilitation upon discharge. Patient remains on Zosyn. 07/13/2020 Patient's symptoms continues to complain of severe abdominal pain passing gas requiring pain medications quite often. Patient is postoperative day 3 07/14/2020 Patient is seen and evaluated and follow-up this morning currently sitting up in the chair as physical therapy and nursing staff have been attempting to reinfo rce increasing activity. Patient states she was up working with physical therapy and was able to walk some steps with a walker. IV narcotics have been adjusted as patient has been requesting IV Dilaudid every 2-3 hours. Small amounts of gas noted in the ostomy with no stool output at this time. Patient is maintained on clear liquids and will continue. Patient continues to have some abdominal discomfort although denies any nausea or vomiting. Potassium was found to be 3.3 today and being replaced and will repeat a.m. labs. Sodium is 137 and current creatinine is 0.39. 07/15/2020 Patient is seen and evaluated and follow-up this morning is actively having loose brown stool and gas noted in the ostomy. Patient is tolerating diet being advanced by surgery. Repeat potassium today was 3.5 and other labs within normal limits. Blood pressure elevated and will resume home medications. Patient has been getting up and working with physical therapy but needs reinforcement. Patient continues to have some abdominal discomfort although states is slightly improved. Discussed with the patient about discharge planning and patient along with family states now that she will be going home and will be having home care and help from the family. Surgery recommending observation for another 24 hours to monitor intake and output. We'll discontinue Bernal catheter. Constitutional: Denied any fatigue denied any fever. Cardio vascular: denied any chest pain, palpitations Gastrointestinal continue to have abdominal pain as mentioned above although slightly improved Pulmonary: Denied any shortness of breath cough Neurologic denied any new focal deficits All inpatient medications were reviewed and appropriate changes in these medications as dictated in the interval history and assessment and plan. Objective - Vital Signs Vital signs: Vital Signs Temp 98.3 F 07/15/20 04:44 Pulse 88 07/15/20 04:44 Resp 20 07/15/20 04:44 BP 172/79 07/15/20 04:44 Pulse Ox 94 L 07/15/20 04:44 Intake & Output 07/14/20 07/15/20 07/15/20 18:59 06:59 18:59 Output Total 500 Balance -500 Output: Urine 500 Other: Voiding Method Indwelling Catheter Indwelling Catheter - Exam GENERAL: The patient is alert and oriented x3, not in any acute distress. Sitting up in the chair. Well developed, well nourished. HEENT: Pupils are round and equally reacting to light. EOMI. No scleral icterus. No conjunctival pallor. Normocephalic, atraumatic. No pharyngeal erythema. No thyromegaly. CARDIOVASCULAR: S1 and S2 present. No murmurs, rubs, or gallops. PULMONARY: Chest is clear to auscultation, no wheezing or crackles. ABDOMEN: Patient has a colostomy bag on the left side , bowel sounds are present passing gas into the colostomy, with brown loose stool output noted MUSCULOSKELETAL: No joint swelling or deformity. EXTREMITIES: No cyanosis, clubbing, or pedal edema. NEUROLOGICAL: Gross neurological examination did not reveal any focal deficits. SKIN: No rashes. - Labs CBC & Chem 7: 07/15/20 05:10 07/15/20 05:10 Labs: Abnormal Lab Results - Last 24 Hours (Table) 07/15/20 Range/Units 05:10 RBC 3.24 L (3.80-5.40) m/uL Hgb 9.9 L (11.4-16.0) gm/dL Hct 29.7 L (34.0-46.0) % Microbiology - Last 24 Hours (Table) 07/09/20 09:18 Blood Culture - Preliminary Blood No Growth after 120 hours Assessment and Plan Assessment: -Severe sepsis: Secondary to diverticulitis, patient had sigmoid colectomy with a colostomy. Patient will be continued on Zosyn. Patient had postoperative respiratory failure, was intubated presently extubated on 07/10/2020. PT/OT following recommending subacute rehab although patient is refusing rehab and family is willing to take the patient home and help and will have home care. -Diarrhea secondary to colitis , patient is status post a colectomy and colostomy passing gas along with loose brown stool noted in the ostomy -Acute renal failure: Secondary to prerenal azotemia from severe dehydration and sepsis, improved with IV fluids. Patient is tolerating clear liquid diet and advancing per surgery -Anion gap metabolic acidosis secondary to lactic acidosis improved, patient presently has non-anion gap and metabolic acidosis secondary to hyperchloremia, IV fluids discontinued -Coronary artery disease -History of atrial fibrillation presently sinus rhythm, tachycardia resolved -Hypertension: Will resume home lisinopril as blood pressures have been elevated, creatinine is 0.4 today. -Depression -DVT prophylaxis subcutaneous heparin Plan: Continue with current medications. Resume home blood pressure medications as blood pressure is been elevated. Other labs within normal limits. Hemoglobin is stable at 9.9, white blood count is 7.8. Patient is maintained on IV antibiotics and will continue until discharge. Surgery is advancing diet as there is stool noted in the ostomy and monitoring for another 24 hours to janelle tor tolerance of diet. Discussed with the patient about discharge planning and patient is now going home with home care and family members will be helping the patient. Patient is refusing rehab at this time. Patient work with PT/OT therapy daily. We'll continue to monitor and anticipate discharge in 24 hours.
[2020-07-15] MEDS: lisinopriL 20 MG TAB PO SCH (13:08)
--- NOTE | 2020-07-15 13:40 | P.PN ---
Subjective Progress Note Date: 07/15/20 CHIEF COMPLAINT: Abdominal pain HISTORY OF PRESENT ILLNESS: Patient is status post sigmoid colectomy with end colostomy and lysis of adhesions for diverticulitis with mesenteric abscess and adhesions causing partial small bowel obstruction. Postop day #5. She's sitting in bedside chair. She is complaining of abdominal pain, but is better controlled today. Her ostomy is now functioning. She has had gas and stool through her ostomy. Afebrile. Hypertensive blood pressure 170/67 medicine service restarted home BP med. WBC 7.8 hemoglobin 9.9 platelets 319 sodium 140 potassium 3.5 creatinine 0.4 Patient seen and examined with Dr. atkins PHYSICAL EXAM: VITAL SIGNS: Reviewed. GENERAL: Well-developed in no acute distress. HEENT: No sclera icterus. Extraocular movements grossly intact. Moist buccal mucosa. Head is atraumatic, normocephalic. ABDOMEN: Soft. Nondistended. Stool present in colostomy bag. Incision site clean dry and intact NEUROLOGIC: Alert and oriented. Cranial nerves II through XII grossly intact. ASSESSMENT: 1. Diverticulitis with mesenteric abscess and adhesions causing partial small bowel obstruction status post sigmoid colectomy with end colostomy and lysis of adhesions 2. Hypokalemia PLAN: -Replace potassium -Advance diet to full liquids -Add oral pain medication, Pierron -Hep-Lock IV fluids -Discontinue Bernal catheter -Continue pain medication as needed -Continue antibiotics -Encouraged patient to increase activity -Encouraged patient to use incentive spirometer -We'll monitor patient for another 24 hours and anticipate discharge home tomorrow -GI prophylaxis Protonix and DVT prophylaxis subcu heparin Physician Pastry Cook note has been reviewed by physician. Signing provider agrees with the documented findings, assessment, and plan of care. Objective - Vital Signs Vital signs: Vital Signs Temp 97.9 F 07/15/20 11:55 Pulse 85 07/15/20 11:55 Resp 17 07/15/20 11:55 BP 170/67 07/15/20 11:55 Pulse Ox 97 07/15/20 11:55 Intake & Output 07/14/20 07/15/20 07/15/20 18:59 06:59 18:59 Output Total 500 700 Balance -500 -700 Weight 92.6 kg Output: Urine 500 700 Other: Voiding Method Indwelling Catheter Indwelling Catheter Indwelling Catheter - Labs CBC & Chem 7: 07/15/20 05:10 07/15/20 05:10 Labs: Abnormal Lab Results - Last 24 Hours (Table) 07/15/20 07/15/20 Range/Units 05:10 05:10 RBC 3.24 L (3.80-5.40) m/uL Hgb 9.9 L (11.4-16.0) gm/dL Hct 29.7 L (34.0-46.0) % Chloride 110 H (96-109) mmol/L Carbon Dioxide 19.5 L (21.6-31.8) mmol/L BUN 5.0 L (9.0-27.0) mg/dL Creatinine 0.4 L (0.6-1.5) mg/dL Calcium 8.2 L (8.7-10.3) mg/dL Microbiology - Last 24 Hours (Table) 07/09/20 09:18 Blood Culture - Final Blood No Growth after 144 hours
[2020-07-15] MEDS: HYDROcodone/APAP 5-325MG 1 EACH TAB PO PRN (21:06)
[2020-07-16] MEDS: HYDROmorphone 1 MG/ML 1 ML SYRINGE IVP PRN ×5 (00:15→15:16)
[2020-07-16] MEDS: HEPARIN SODIUM,PORCINE/PF 5,000 UNIT/0.5 ML SYRINGE SQ SCH ×4 (00:15→23:35)
[2020-07-16] MEDS: KETOROLAC 15 MG/ML 1 ML VIAL IVP PRN ×2 (02:24→08:41)
[2020-07-16] MEDS: PIPERACILLIN-TAZOBACTAM 3.375 GM in SODIUM CHLORIDE 0.9% 100 ML IVPB SCH ×3 (04:28→19:22)
[2020-07-16] MEDS: HYDROcodone/APAP 5-325MG 1 EACH TAB PO PRN ×2 (04:36→11:20)
[2020-07-16] MEDS: LEVOTHYROXINE 100 MCG TAB PO SCH (05:49)
[2020-07-16] MEDS: lisinopriL 20 MG TAB PO SCH (07:21)
[2020-07-16] MEDS: PANTOPRAZOLE 40 MG TABLET PO SCH (07:21)
[2020-07-16 07:40] LABS: Basophils % (A) 0 %; Eosinophils # (A) 0.9 k/uL (0-0.7); Eosinophils % (A) 12 %; HCT 27.9 % (34.0-46.0); HGB 9.6 gm/dL (11.4-16.0); Lymphocytes # (A) 1.3 k/uL (1.0-4.8); Lymphocytes % (A) 18 %; MCH 31.5 pg (25.0-35.0); MCHC 34.3 g/dL (31.0-37.0); MCV 91.7 fL (80.0-100.0); Mean Platelet Volume 7.8; Monocytes # (A) 0.6 k/uL (0-1.0); Monocytes % (A) 8 %; Neutrophils # (A) 4.1 k/uL (1.3-7.7); Neutrophils % (A) 60 %; Platelet Count 329 k/uL (150-450); RBC 3.04 m/uL (3.80-5.40); RDW 13.3 % (11.5-15.5); WBC 6.9 k/uL (3.8-10.6)
[2020-07-16 08:05] LABS: African American GFR (CKD) >90 (>60 ml/min/1.73 sqM); Anion Gap 3 mmol/L; Blood Urea Nitrogen 6 mg/dL (7-17); Calcium 7.9 mg/dL (8.4-10.2); Carbon Dioxide 23 mmol/L (22-30); Chloride 110 mmol/L (98-107); Glucose 82 mg/dL (74-99); Non-African American GFR(CKD) >90 (>60 ml/min/1.73 sqM); Potassium 3.5 mmol/L (3.5-5.1); Sodium 136 mmol/L (137-145)
--- NOTE | 2020-07-16 10:59 | P.PN ---
Subjective Progress Note Date: 07/16/20 Principal diagnosis: Diverticulitis Patient has no new complaints. She is tolerating full liquids. She is asking for more to eat. Ostomy functioning. No significant pain. White blood cell count normal. Objective - Vital Signs Vital signs: Vital Signs Temp 98.3 F 07/16/20 05:00 Pulse 63 07/16/20 05:00 Resp 20 07/16/20 05:00 BP 138/79 07/16/20 05:00 Pulse Ox 94 L 07/16/20 05:00 Intake & Output 07/15/20 07/16/20 07/16/20 18:59 06:59 18:59 Intake Total 580 Output Total 700 300 150 Balance -700 280 -150 Weight 92.6 kg Intake: IV 100 Zosyn 100 Oral 480 Output: Urine 700 200 150 Stool 100 Other: Voiding Method Indwelling Catheter # Voids 200 - Exam Abdomen: Soft, nondistended, dressing clean and dry, ostomy functioning - Labs CBC & Chem 7: 07/16/20 06:29 07/16/20 06:29 Labs: Abnormal Lab Results - Last 24 Hours (Table) 07/15/20 07/16/20 07/16/20 Range/Units 05:10 06:29 06:29 RBC 3.04 L (3.80-5.40) m/uL Hgb 9.6 L (11.4-16.0) gm/dL Hct 27.9 L (34.0-46.0) % Eosinophils # 0.9 H (0-0.7) k/uL Sodium 136 L (137-145) mmol/L Chloride 110 H 110 H (96-109) mmol/L Carbon Dioxide 19.5 L (21.6-31.8) mmol/L BUN 5.0 L 6 L (9.0-27.0) mg/dL Creatinine 0.4 L 0.45 L (0.6-1.5) mg/dL Calcium 8.2 L 7.9 L (8.7-10.3) mg/dL Microbiology - Last 24 Hours (Table) 07/09/20 09:18 Blood Culture - Final Blood No Growth after 144 hours Assessment and Plan (1) Acute diverticulitis Narrative/Plan: Patient doing better at this time. Increase diet. If tolerates May discharge. Current Visit: Yes Status: Acute Code(s): K57.92 - DVTRCLI OF INTEST, PART UNSP, W/O PERF OR ABSCESS W/O BLEED SNOMED Code(s): 438228328
--- NOTE | 2020-07-16 16:28 | P.PN ---
Subjective 74-year-old female came with sharp severe abdominal pain in the right lower quadrant which started last night, found to have severe diabetes mellitus with significant tenderness patient does have fever is presently having diarrhea has highly elevated lactic acid of around 7. Patient had a CT of the abdomen which showed acute diverticular colitis in the sigmoid colon area with liquid stool throughout the colon. No free a the abdomen. Patient is also acidotic secondary to lactic acidosis with the elevated creatinine of 1.67 baseline around 0.9 patient is tachycardic bit tachycardia Secondary to acidosis leukocytosis of 30,000. 07/10/2020 Patient had sigmoid colectomy with end colostomy and lysis of adhesions. Patient was a subsequently admitted to [facility] as she remained intubated patient the was extubated by the time I evaluated the patient patient is on 2 L of oxygen still having a significant pain in the surgical site area. Creatinine improved I do not have any CBC available. 07/11/2020 Patient is comparing of significant pain, Toradol will be added is already on Protonix. Patient chloride is very high patient will be switched to half-normal saline. Patient has noniron gap metabolic acidosis secondary to hyperchloremia. Patient's creatinine improved and presently is a 0.68. Patient remains on Zosyn. Patient is not passing gas yet sluggish bowel sounds 07/12/2020 Patient is still not passing much gas was still having significant pain probably will need to be discharged to subacute rehabilitation upon discharge. Patient remains on Zosyn. 07/13/2020 Patient's symptoms continues to complain of severe abdominal pain passing gas requiring pain medications quite often. Patient is postoperative day 3 07/14/2020 Patient is seen and evaluated and follow-up this morning currently sitting up in the chair as physical therapy and nursing staff have been attempting to reinforce increasing activity. Patient states she was up working with physical therapy and was able to walk some steps with a walker. IV narcotics have been adjusted as patient has been requesting IV Dilaudid every 2-3 hours. Small amounts of gas noted in the ostomy with no stool output at this time. Patient is maintained on clear liquids and will continue. Patient continues to have some abdominal discomfort although denies any nausea or vomiting. Potassium was found to be 3.3 today and being replaced and will repeat a.m. labs. Sodium is 137 and current creatinine is 0.39. 07/15/2020 Patient is seen and evaluated and follow-up this morning is actively having loose brown stool and gas noted in the ostomy. Patient is tolerating diet being advanced by surgery. Repeat potassium today was 3.5 and other labs within normal limits. Blood pressure elevated and will resume home medications. Patient has been getting up and working with physical therapy but needs reinforcement. Patient continues to have some abdominal discomfort although states is slightly improved. Discussed with the patient about discharge planning and patient along with family states now that she will be going home and will be having home care and help from the family. Surgery recommending observation for another 24 hours to monitor intake and output. We'll discontinue Bernal catheter. 07/16/2020 Patient is having good bowel movements into the colostomy bag. I was told by the nursing staff that her pain is not well-controlled still receiving Dilaudid along with Toradol and [place] I'll increase the dose of [place] discontinue Dilaudid and reevaluate the pain and if it's controlled patient will be discharged tomorrow patient diet has been advanced appears to be tolerating fairly well. Constitutional: Denied any fatigue denied any fever. Cardio vascular: denied any chest pain, palpitations Gastrointestinal denied any nausea vomiting, still complaining of some abdominal pain Pulmonary: Denied any shortness of breath cough Neurologic denied any new focal deficits All inpatient medications were reviewed and appropriate changes in these medic ations as dictated in the interval history and assessment and plan. Objective - Vital Signs Vital signs: Vital Signs Temp 98.2 F 07/16/20 12:46 Pulse 71 07/16/20 12:46 Resp 19 07/16/20 12:46 BP 139/61 07/16/20 12:46 Pulse Ox 95 07/16/20 12:46 Intake & Output 07/15/20 07/16/20 07/16/20 18:59 06:59 18:59 Intake Total 580 221 Output Total 700 300 150 Balance -700 280 71 Weight 92.6 kg Intake: IV 100 Zosyn 100 Oral 480 221 Output: Urine 700 200 150 Stool 100 Other: Voiding Method Indwelling Catheter # Voids 200 - Exam PHYSICAL EXAMINATION: GENERAL: The patient is alert and oriented x3, not in any acute distress. Well developed, well nourished. HEENT: Pupils are round and equally reacting to light. EOMI. No scleral icterus. No conjunctival pallor. Normocephalic, atraumatic. No pharyngeal erythema. No thyromegaly. CARDIOVASCULAR: S1 and S2 present. No murmurs, rubs, or gallops. PULMONARY: Chest is clear to auscultation, no wheezing or crackles. ABDOMEN: Patient has a colostomy bag on the left side , bowel sounds are present passing gas into the colostomy MUSCULOSKELETAL: No joint swelling or deformity. EXTREMITIES: No cyanosis, clubbing, or pedal edema. NEUROLOGICAL: Gross neurological examination did not reveal any focal deficits. SKIN: No rashes. - Labs CBC & Chem 7: 07/16/20 06:29 07/16/20 06:29 Labs: Abnormal Lab Results - Last 24 Hours (Table) 07/16/20 07/16/20 Range/Units 06: 06:29 RBC 3.04 L (3.80-5.40) m/uL Hgb 9.6 L (11.4-16.0) gm/dL Hct 27.9 L (34.0-46.0) % Eosinophils # 0.9 H (0-0.7) k/uL Sodium 136 L (137-145) mmol/L Chloride 110 H (98-107) mmol/L BUN 6 L (7-17) mg/dL Creatinine 0.45 L (0.52-1.04) mg/dL Calcium 7.9 L (8.4-10.2) mg/dL Assessment and Plan Plan: --Severe sepsis: Secondary to diverticulitis, patient had sigmoid colectomy with a colostomy. Patient will be continued on Zosyn. Patient had postoperative respiratory failure, was intubated presently extubated on 07/10/2020. PT/OT following recommending subacute rehab although patient is refusing rehab and family is willing to take the patient home and help and will have home care. Patient will stay in the hospital for 1 more day for management of pain as mentioned above -Diarrhea secondary to colitis , patient is status post a colectomy and colostomy passing gas along with loose brown stool noted in the ostomy -Acute renal failure: Secondary to prerenal azotemia from severe dehydration and sepsis, improved with IV fluids. Patient denied is being advanced today -Anion gap metabolic acidosis secondary to lactic acidosis improved, patient presently has non-anion gap and metabolic acidosis secondary to hyperchloremia, IV fluids discontinued all acidosis resolved at this time -Coronary artery disease -History of atrial fibrillation presently sinus rhythm, tachycardia resolved -Hypertension: Patient is on lisinopril -Depression -DVT prophylaxis subcutaneous heparin Possibility of discharge tomorrow
[2020-07-16] MEDS: HYDROcodone/APAP 10-325MG 1 EACH TAB PO PRN ×2 (17:50→23:35)
[2020-07-16] MEDS: SENNOSIDES 8.6 MG TAB PO SCH (19:22)
[2020-07-16] MEDS: ACETAMINOPHEN TAB 325 MG TAB PO PRN (21:15)
[2020-07-17] MEDS: PIPERACILLIN-TAZOBACTAM 3.375 GM in SODIUM CHLORIDE 0.9% 100 ML IVPB SCH ×3 (04:04→19:12)
[2020-07-17] MEDS: ACETAMINOPHEN TAB 325 MG TAB PO PRN (04:04)
[2020-07-17] MEDS: LEVOTHYROXINE 100 MCG TAB PO SCH (05:58)
[2020-07-17] MEDS: HYDROcodone/APAP 5-325MG 1 EACH TAB PO PRN ×2 (08:19→15:00)
[2020-07-17] MEDS: SENNOSIDES 8.6 MG TAB PO SCH ×2 (08:20→20:07)
[2020-07-17] MEDS: PANTOPRAZOLE 40 MG TABLET PO SCH (08:20)
[2020-07-17] MEDS: lisinopriL 20 MG TAB PO SCH (08:20)
[2020-07-17] MEDS: HEPARIN SODIUM,PORCINE/PF 5,000 UNIT/0.5 ML SYRINGE SQ SCH ×3 (08:20→22:53)
--- NOTE | 2020-07-17 10:42 | P.PN ---
Subjective Progress Note Date: 07/17/20 Principal diagnosis: Diverticulitis Patient says she is having more pain today. She takes chronic pain medications at home. Tolerating diet. Ostomy is functioning. She is afebrile. No tachycardia. Objective - Vital Signs Vital signs: Vital Signs Temp 98.3 F 07/17/20 05:00 Pulse 80 07/17/20 05:00 Resp 20 07/17/20 05:00 BP 152/61 07/17/20 05:00 Pulse Ox 95 07/17/20 05:00 Intake & Output 07/16/20 07/17/20 07/17/20 18:59 06:59 18:59 Intake Total 421 100 Output Total 150 Balance 271 100 Intake: Oral 421 100 Output: Urine 150 Other: Voiding Method Toilet # Voids 200 5 # Bowel Movements 2 - Exam Abdomen: Soft, nondistended, incision clean and dry, mild incisional tenderness - Labs CBC & Chem 7: 07/16/20 06:29 07/16/20 06:29 Assessment and Plan (1) Acute diverticulitis Narrative/Plan: Patient with increased discomfort today. Will resume Dilaudid. Add Toradol for pain control as well. Continue low fiber diet. Ambulate. Current Visit: Yes Status: Acute Code(s): K57.92 - DVTRCLI OF INTEST, PART UNSP, W/O PERF OR ABSCESS W/O BLEED SNOMED Code(s): 626555913
[2020-07-17] MEDS: HYDROmorphone 0.5 MG/0.5 ML SYRINGE IVP PRN ×3 (11:38→22:52)
[2020-07-17] MEDS ORDERED: KETOROLAC 15 MG/ML 1 ML VIAL IVP SCH (12:00)
[2020-07-17] MEDS: ONDANSETRON 4 MG/2 ML VIAL IVP PRN (13:08)
[2020-07-17] MEDS ORDERED: POTASSIUM CHLORIDE ER 20 MEQ TAB.ER PO STA ×2 (14:40→15:15)
--- NOTE | 2020-07-17 15:17 | P.PN ---
Subjective 74-year-old female came with sharp severe abdominal pain in the right lower quadrant which started last night, found to have severe diabetes mellitus with significant tenderness patient does have fever is presently having diarrhea has highly elevated lactic acid of around 7. Patient had a CT of the abdomen which showed acute diverticular colitis in the sigmoid colon area with liquid stool throughout the colon. No free a the abdomen. Patient is also acidotic secondary to lactic acidosis with the elevated creatinine of 1.67 baseline around 0.9 patient is tachycardic bit tachycardia Secondary to acidosis leukocytosis of 30,000. 07/10/2020 Patient had sigmoid colectomy with end colostomy and lysis of adhesions. Patient was a subsequently admitted to [facility] as she remained intubated patient the was extubated by the time I evaluated the patient patient is on 2 L of oxygen still having a significant pain in the surgical site area. Creatinine improved I do not have any CBC available. 07/11/2020 Patient is comparing of significant pain, Toradol will be added is already on Protonix. Patient chloride is very high patient will be switched to half-normal saline. Patient has noniron gap metabolic acidosis secondary to hyperchloremia. Patient's creatinine improved and presently is a 0.68. Patient remains on Zosyn. Patient is not passing gas yet sluggish bowel sounds 07/12/2020 Patient is still not passing much gas was still having significant pain probably will need to be discharged to subacute rehabilitation upon discharge. Patient remains on Zosyn. 07/13/2020 Patient's symptoms continues to complain of severe abdominal pain passing gas requiring pain medications quite often. Patient is postoperative day 3 07/14/2020 Patient is seen and evaluated and follow-up this morning currently sitting up in the chair as physical therapy and nursing staff have been attempting to reinforce increasing activity. Patient states she was up working with physical therapy and was able to walk some steps with a walker. IV narcotics have been adjusted as patient has been requesting IV Dilaudid every 2-3 hours. Small amounts of gas noted in the ostomy with no stool output at this time. Patient is maintained on clear liquids and will continue. Patient continues to have some abdominal discomfort although denies any nausea or vomiting. Potassium was found to be 3.3 today and being replaced and will repeat a.m. labs. Sodium is 137 and current creatinine is 0.39. 07/15/2020 Patient is seen and evaluated and follow-up this morning is actively having loose brown stool and gas noted in the ostomy. Patient is tolerating diet being advanced by surgery. Repeat potassium today was 3.5 and other labs within normal limits. Blood pressure elevated and will resume home medications. Patient has been getting up and working with physical therapy but needs reinforcement. Patient continues to have some abdominal discomfort although states is slightly improved. Discussed with the patient about discharge planning and patient along with family states now that she will be going home and will be having home care and help from the family. Surgery recommending observation for another 24 hours to monitor intake and output. We'll discontinue Bernal catheter. 07/16/2020 Patient is having good bowel movements into the colostomy bag. I was told by the nursing staff that her pain is not well-controlled still receiving Dilaudid along with Toradol and [place] I'll increase the dose of [place] discontinue Dilaudid and reevaluate the pain and if it's controlled patient will be discharged tomorrow patient diet has been advanced appears to be tolerating fairly well. 07/17/2020 Patient the pain was not well controlled on oral [place] and patient required Dilaudid presented to the surgery is recommending to keep the patient today. Hopefully by tomorrow had inflammation the abdomen will be better and will not require any IV pain medications. Constitutional: Denied any fatigue denied any fever. Cardio vascular: denied any chest pain, palpitations Gastrointestinal denied any nausea vomiting, still complaining of some abdominal pain Pulmonary: Denied any shortness of breath cough Neurologic denied any new focal deficits All inpatient medications were reviewed and appropriate changes in these medications as dictated in the interval history and assessment and plan. Objective - Vital Signs Vital signs: Vital Signs Temp 98.3 F 07/17/20 12:31 Pulse 81 07/17/20 12:31 Resp 19 07/17/20 12:31 BP 143/84 07/17/20 12:31 Pulse Ox 96 07/17/20 12:31 Intake & Output 07/16/20 07/17/20 07/17/20 18:59 06:59 18:59 Intake Total 421 100 Output Total 150 Balance 271 100 Intake: Oral 421 100 Output: Urine 150 Other: Voiding Method Toilet Toilet # Voids 200 5 # Bowel Movements 2 - Exam PHYSICAL EXAMINATION: GENERAL: The patient is alert and oriented x3, not in any acute distress. Well developed, well nourished. HEENT: Pupils are round and equally reacting to light. EOMI. No scleral icterus. No conjunctival pallor. Normocephalic, atraumatic. No pharyngeal erythema. No thyromegaly. CARDIOVASCULAR: S1 and S2 present. No murmurs, rubs, or gallops. PULMONARY: Chest is clear to auscultation, no wheezing or crackles. ABDOMEN: Patient has a colostomy bag on the left side , bowel sounds are present passing gas into the colostomy MUSCULOSKELETAL: No joint swelling or deformity. EXTREMITIES: No cyanosis, clubbing, or pedal edema. NEUROLOGICAL: Gross neurological examination did not reveal any focal deficits. SKIN: No rashes. - Labs CBC & Chem 7: 07/16/20 06:29 07/16/20 06:29 Assessment and Plan Plan: --Severe sepsis: Secondary to diverticulitis, patient had sigmoid colectomy with a colostomy. Patient will be continued on Zosyn. Patient had postoperative respiratory failure, was intubated presently extubated on 07/10/2020. PT/OT following recommending subacute rehab although patient is refusing rehab and family is willing to take the patient home and help and will have home care. Patient will stay in the hospital for 1 more day for management of pain as mentioned above -Diarrhea secondary to colitis , patient is status post a colectomy and colostomy passing gas along with loose brown stool noted in the ostomy -Acute renal failure: Secondary to prerenal azotemia from severe dehydration and sepsis, improved with IV fluids. Patient is on low fiber diet -Anion gap metabolic acidosis secondary to lactic acidosis improved, patient pr esently has non-anion gap and metabolic acidosis secondary to hyperchloremia, IV fluids discontinued , acidosis resolved at this time -Coronary artery disease -History of atrial fibrillation presently sinus rhythm, tachycardia resolved -Hypertension: Patient is on lisinopril -Depression -DVT prophylaxis subcutaneous heparin Possibility of discharge tomorrow
[2020-07-17] MEDS: HYDROcodone/APAP 10-325MG 1 EACH TAB PO PRN (20:05)
[2020-07-18] MEDS: ACETAMINOPHEN TAB 325 MG TAB PO PRN ×2 (00:37→05:38)
[2020-07-18] MEDS: HYDROcodone/APAP 10-325MG 1 EACH TAB PO PRN ×2 (01:32→09:54)
[2020-07-18 04:57] VITALS: BP 149/82; PULSE 73; RESP 17; TEMP 97.9
[2020-07-18 05:02] LABS: African American GFR (CKD) >90 (>60 ml/min/1.73 sqM); Anion Gap 6 mmol/L; Blood Urea Nitrogen 4 mg/dL (7-17); Calcium 7.9 mg/dL (8.4-10.2); Carbon Dioxide 21 mmol/L (22-30); Chloride 108 mmol/L (98-107); Glucose 88 mg/dL (74-99); Non-African American GFR(CKD) >90 (>60 ml/min/1.73 sqM); Potassium 3.4 mmol/L (3.5-5.1); Sodium 135 mmol/L (137-145)
[2020-07-18] MEDS: PIPERACILLIN-TAZOBACTAM 3.375 GM in SODIUM CHLORIDE 0.9% 100 ML IVPB SCH ×2 (05:11→12:21)
[2020-07-18] MEDS: LEVOTHYROXINE 100 MCG TAB PO SCH (05:11)
[2020-07-18] MEDS: HEPARIN SODIUM,PORCINE/PF 5,000 UNIT/0.5 ML SYRINGE SQ SCH (07:16)
[2020-07-18] MEDS: HYDROmorphone 0.5 MG/0.5 ML SYRINGE IVP PRN (07:16)
[2020-07-18] MEDS ORDERED: POTASSIUM CHLORIDE ER 20 MEQ TAB.ER PO STA (08:15)
[2020-07-18] MEDS: PANTOPRAZOLE 40 MG TABLET PO SCH (08:43)
[2020-07-18] MEDS: SENNOSIDES 8.6 MG TAB PO SCH (08:43)
[2020-07-18] MEDS: lisinopriL 20 MG TAB PO SCH (08:43)
[2020-07-18] MEDS: MAGNESIUM SULFATE-D5W PMX 1 GM in DEXTROSE/WATER 1 100ML.BAG IVPB SCH ×2 (09:47→10:56)
--- NOTE | 2020-07-18 12:35 | P.PN ---
Subjective Progress Note Date: 07/18/20 CHIEF COMPLAINT: Abdominal pain HISTORY OF PRESENT ILLNESS: Patient is status post sigmoid colectomy with end colostomy and lysis of adhesions for diverticulitis with mesenteric abscess and adhesions causing partial small bowel obstruction. Patient is feeling better. She is scheduled for discharge today. Her ostomy is functioning. She is tolerating diet. She denies any nausea or vomiting. Her potassium and magnesium are being replaced. Afebrile. Potassium 3.4 magnesium 1.5 PHYSICAL EXAM: VITAL SIGNS: Reviewed. GENERAL: Well-developed in no acute distress. HEENT: No sclera icterus. Extraocular movements grossly intact. Moist buccal mucosa. Head is atraumatic, normocephalic. ABDOMEN: Soft. Nondistended. Stool present in colostomy bag. Incision site clean dry and intact NEUROLOGIC: Alert and oriented. Cranial nerves II through XII grossly intact. ASSESSMENT: 1. Diverticulitis with mesenteric abscess and adhesions causing partial small bowel obstruction status post sigmoid colectomy with end colostomy and lysis of adhesions 2. Hypokalemia 3. Hypomagnesemia PLAN: -Patient is stable for discharge from surgical standpoint -Continue antibiotics -Continue pain medication as needed -Encouraged patient to increase activity -Encouraged patient to use incentive spirometer -GI prophylaxis Protonix and DVT prophylaxis subcu heparin Physician Elevator Constructor Helper note has been reviewed by physician. Signing provider agrees with the documented findings, assessment, and plan of care. Objective - Vital Signs Vital signs: Vital Signs Temp 97.9 F 07/18/20 04:55 Pulse 73 07/18/20 04:55 Resp 17 07/18/20 04:55 BP 149/82 07/18/20 04:55 Pulse Ox 95 07/18/20 07:17 Intake & Output 07/17/20 07/18/20 07/18/20 18:59 06:59 18:59 Intake Total 200 Output Total 300 300 Balance -100 -300 Intake: IV 200 Zosyn 200 Output: Stool 300 300 Other: Voiding Method Toilet Toilet Toilet # Voids 2 1 - Labs CBC & Chem 7: 07/16/20 06:29 07/18/20 04:12 Labs: Abnormal Lab Results - Last 24 Hours (Table) 07/18/20 07/18/20 Range/Units 04:12 08:18 Sodium 135 L (137-145) mmol/L Potassium 3.4 L (3.5-5.1) mmol/L Chloride 108 H (98-107) mmol/L Carbon Dioxide 21 L (22-30) mmol/L BUN 4 L (7-17) mg/dL Creatinine 0.43 L (0.52-1.04) mg/dL Calcium 7.9 L (8.4-10.2) mg/dL Magnesium 1.5 L (1.6-2.3) mg/dL
--- NOTE | 2020-07-18 15:47 | P.DS ---
Providers Date of admission: 07/09/20 12:24 Expected date of discharge: 07/18/20 Attending physician: Edson Su Consults: 07/09/20 12:19 Consult Physician Stat Consulting Provider: Phil Burt Consult Reason/Comments: diverticulitis, sepsis Do you want consulting provider notified?: Yes 07/10/20 11:57 Consult Physician Urgent Consulting Provider: Narciso Jalloh Consult Reason/Comments: icu management Do you want consulting provider notified?: Already Contacted Primary care physician: Courtney Cook Hospital Course: Final diagnosis -Severe sepsis: Secondary to diverticulitis, patient had sigmoid colectomy with a colostomy. -Diarrhea secondary to colitis , patient is status post a colectomy -Acute renal failure: Secondary to prerenal azotemia from severe dehydration and sepsis, improved with IV fluids. -Anion gap metabolic acidosis secondary to lactic acidosis improved, patient presently has non-anion gap and metabolic acidosis secondary to hyperchloremia,, acidosis resolved at this time -Coronary artery disease -History of atrial fibrillation presently sinus rhythm, tachycardia resolved -Hypertension: Patient is on lisinopril -Depression -DVT prophylaxis Discharge disposition Patient is being discharged in a stable condition with guarded prognosis to home. Patient will continue with home care in the outpatient setting. Patient will follow-up with Dr. Valdez in the outpatient setting upon discharge. Patient is to also follow-up with surgery in one week for follow up. Patient will continue on oral antibiotics in the form of Augmentin twice daily for the next 4 days to complete the course. Total time taken is greater than 35 minutes. Hospital course This is a 74 year old female who was recently admitted with abdominal right lower quadrant pain and was found to have severe diverticulitis and was being closely monitored. CT of the abdomen showed acute diverticular colitis and sigmoid colon and surgery was evaluating the patient and patient underwent sigmoid colectomy with end colostomy along with lysis of adhesions. Patient continued to have abdominal discomfort and tenderness and slow to respond bowel activity. Patient was maintained on IV antibiotics and will continue with oral antibiotics in the form of Augmentin twice daily for the next 4 days to complete a course. Patient continued to be weak and was seen and evaluated by physical therapy recommending subacute rehab and initially patient was agreeable to going to a facility although after talking with her family she opted to go home and continue with home care in the outpatient setting. Patient is having stool in the ostomy noted and has been seen and agitated by the registered health nurse. Supplies provided. Patient will continue with home care and will be following up with surgery in one week. Instructed the patient to continue using incentive spirometer and continue working with PT/OT therapy with activity as tolerated. Currently no reports of chest pain, shortness of breath, or palpitations. Patient is afebrile. No reports of nausea or vomiting and patient is tolerating diet. Patient to continue with a low fiber diet as instructed. Patient had replacements for potassium and magnesium and provided a prescription for repeat labs within the next few days. Patient will be discharged home today. On exam vital signs are stable. Cardio S1, S2 are muffled. Respiratory system shows diminished breath sounds at the bases with no wheezing or rhonchi noted. Abdomen is soft and obese, and nontender. Nervous system shows no focal def icits. Please refer to medication reconciliation sheet for a list of medications. Patient Condition at Discharge: Stable Plan - Discharge Summary Discharge Rx Participant: No New Discharge Prescriptions: New Acetaminophen Tab [Tylenol] 650 mg PO Q6HR PRN tab PRN Reason: Mild Pain Or Fever > 100.5 Amoxic-Pot Clav 875-125Mg [Augmentin 875-125] 1 tab PO Q12HR 4 Days #8 tab HYDROcodone/APAP 10-325MG [[place] 10-325] 1 each PO Q6H PRN #12 tab PRN Reason: Pain Sennosides [Senokot] 8.6 mg PO BID 30 Days #60 tab Ondansetron Odt [Zofran Odt] 4 mg PO Q8HR PRN #12 tab PRN Reason: Nausea Continue Levothyroxine Sodium [Synthroid] 200 mcg PO DAILY traZODone HCL [Desyrel] 50 mg PO HS lisinopriL 40 mg PO DAILY Pantoprazole [Protonix] 40 mg PO DAILY Discontinued Acetaminophen with Codeine [Tylenol w/Codeine #4 Tablet] 1 tab PO QID PRN PRN Reason: Pain Discharge Medication List Levothyroxine Sodium [Synthroid] 200 mcg PO DAILY 01/12/19 [History] Pantoprazole [Protonix] 40 mg PO DAILY 07/09/20 [History] lisinopriL 40 mg PO DAILY 07/09/20 [History] traZODone HCL [Desyrel] 50 mg PO HS 07/09/20 [History] Acetaminophen Tab [Tylenol] 650 mg PO Q6HR PRN tab 07/18/20 [Rx] Amoxic-Pot Clav 875-125Mg [Augmentin 875-125] 1 tab PO Q12HR 4 Days #8 tab 07/18/20 [Rx] HYDROcodone/APAP 10-325MG [[place] 10-325] 1 each PO Q6H PRN #12 tab 07/18/20 [Rx] Ondansetron Odt [Zofran Odt] 4 mg PO Q8HR PRN #12 tab 07/18/20 [Rx] Sennosides [Senokot] 8.6 mg PO BID 30 Days #60 tab 07/18/20 [Rx] Follow up Appointment(s)/Referral(s): Joey Valdez MD [Primary Care Provider] - 07/25/20 2:00 pm [facility], [NON-STAFF] - Phil Burt MD [STAFF PHYSICIAN] - 07/26/20 4:00 pm Ambulatory/Diagnostic Orders: Basic Metabolic Panel [LAB.AMB] Time Frame: 2 Days, Location: None Selected Patient Instructions/Handouts: Diverticulitis (GEN), Colostomy Care (GEN) Activity/Diet/Wound Care/Special Instructions: Last Pouching system change: 07.18.2020 Mrs Ramirez will transition from hospital to Home with the following ostomy supplies supplied by the [facility] cut to fit flat barrier #[id number] (three) No sting prep pads (12) Osotmy Powder Jacobo seals (4) Please change the entire pouching system every three days until in a disposable pouching system The pouch needs to be emptied when it is 1/2 to 1/3 full in the bathroom Mrs Ramirez will also be receiving additional osotmy care supplies from [facility] once discharged from the hospital as [facility] free sample supply program Discharge Disposition: HOME WITH HOME HEALTH SERVICES
== END 2020-07-18 15:45 | disposition home health service (06) | DRG 853 ==
LOC: EC 08:37 → 5NMEDONC 12:24 → 3SCARD 13:43 → 2SICU 07-10 12:04 → 3SCARD 07-11 04:05 → 5NMEDONC 07-14 00:19
PROVIDERS: ADMIT Internal Medicine; ATTEND Internal Medicine
PROC: 0DBN0ZZ Excision of Sigmoid Colon, Open Approach (ICD-10-PCS; 2020-07-10)
PROC: 0D1M0Z4 Bypass Descending Colon to Cutaneous, Open Approach (ICD-10-PCS; principal; 2020-07-10 09:00)
DX: A41.9 Sepsis, unspecified organism (principal); J96.01 Acute respiratory failure with hypoxia; K65.1 Peritoneal abscess; I48.20 Chronic atrial fibrillation, unspecified; K55.9 Vascular disorder of intestine, unspecified; N17.9 Acute kidney failure, unspecified; E87.2 Acidosis; K57.32 Diverticulitis of large intestine without perforation or abscess without bleeding; K56.50 Intestinal adhesions [bands], unspecified as to partial versus complete obstruction; R65.20 Severe sepsis without septic shock; I25.10 Atherosclerotic heart disease of native coronary artery without angina pectoris; Z98.84 Bariatric surgery status; Z87.891 Personal history of nicotine dependence; F41.0 Panic disorder [episodic paroxysmal anxiety]; Z83.3 Family history of diabetes mellitus; Z82.49 Family history of ischemic heart disease and other diseases of the circulatory system; Z87.820 Personal history of traumatic brain injury; F32.9 Major depressive disorder, single episode, unspecified; I95.9 Hypotension, unspecified; Z87.11 Personal history of peptic ulcer disease; Z86.14 Personal history of Methicillin resistant Staphylococcus aureus infection; E03.9 Hypothyroidism, unspecified; Z85.21 Personal history of malignant neoplasm of larynx; M19.90 Unspecified osteoarthritis, unspecified site; I10 Essential (primary) hypertension; K21.9 Gastro-esophageal reflux disease without esophagitis; E87.8 Other disorders of electrolyte and fluid balance, not elsewhere classified; K44.9 Diaphragmatic hernia without obstruction or gangrene; E11.9 Type 2 diabetes mellitus without complications; E86.0 Dehydration; E83.42 Hypomagnesemia; E87.6 Hypokalemia; Z20.822 Contact with and (suspected) exposure to COVID-19
CPT/HCPCS: 36415; 71045; 74176; 80048; 80053; 81001; 82150; 83605; 83690; 83735; 84484; 85025; 85027; 87040; 87324; 87635; 88307; 93005; 94002; 94760; 96361; 96374; 96375; 96376; 99285

== ENCOUNTER → 2020-07-20 | Outpatient (CLI) | payer MEDICARE ==
[2020-07-20 17:39] LABS: African American GFR (CKD) 110.5 (60.0-200.0); Calcium 8.5 mg/dL (8.7-10.3); Magnesium 1.8 mg/dL (1.5-2.4); Non-African American GFR(CKD) 95.3 (60.0-200.0); Potassium 4.3 mmol/L (3.5-5.5)
== END | disposition home or self-care (01) ==
LOC: LABWHC1 08:54
PROVIDERS: ATTEND Registered Nurse
DX: E87.6 Hypokalemia (principal); E83.42 Hypomagnesemia
CPT/HCPCS: 36415; 80048; 83735

== ENCOUNTER 2020-08-26 18:56 | Inpatient (IN) | payer MEDICARE ==
[2020-08-26] MEDS ORDERED: SODIUM CHLORIDE 0.9% 500 ML 500 ML IV STA (20:23)
[2020-08-26] MEDS ORDERED: MORPHINE SULFATE 2 MG/ML SYRINGE IVP STA (20:23)
--- NOTE | 2020-08-26 20:33 | ED ---
Abdominal Pain HPI - General Chief Complaint: Abdominal Pain Stated Complaint: Abd pain/post colostomy bag Time Seen by Provider: 08/26/20 20:03 Source: patient, RN notes reviewed Mode of arrival: ambulatory Limitations: no limitations - History of Present Illness Initial Comments: Alert and oriented 4, well-appearing 74-year-old pleasant white female presents to the emergency room with complaints of left lower abdominal pain at colostomy site. Patient states yesterday had one episode of vomiting after eating, today she has had 4 episodes of vomiting after eating. Patient states home care nurse came over and changed her colostomy bag today of liquid stool. Patient states there is no blood however after the nurse changed her bag. it filled quickly with liquid stool again and needed to be changed again. Patient denies any hematochezia or hematemesis. Patient denies any fever. Patient states had the colostomy placed for bowel infection 1 month ago. Patient states she seen her primary care doctor on Saturday and had no complications. Patient has history of atrial fibrillation, GERD, hypertension, osteoarthritis and chronic low back pa in, cholecystectomy. MD Complaint: abdominal pain -: days(s) (2) Location: LLQ Radiation: epigastric Quality: cramping Consistency: constant Improves With: medication (Second dose of hydrocodone) Worsens With: eating (Vomits after eating), vomiting Context: recent surgery/procedure (Colostomy for bowel infection 1 month ago) Associated Symptoms: denies other symptoms Treatments Prior to Arrival: prescription analgesics (Hydrocodone this morning) - Related Data Home Medications Medication Instructions Recorded Confirmed Levothyroxine Sodium [Synthroid] 200 mcg PO DAILY 01/12/19 08/26/20 Pantoprazole [Protonix] 40 mg PO DAILY 07/09/20 08/26/20 lisinopriL 40 mg PO DAILY 07/09/20 08/26/20 HYDROcodone/APAP 10-325MG [[place] 1 tab PO Q6H 08/26/20 08/26/20 10-325] Morphine Sulfate ER [Ms Contin] 15 mg PO Q12HR PRN 08/26/20 08/26/20 QUEtiapine FUMARATE [SEROquel] 25 mg PO HS 08/26/20 08/26/20 Allergies Allergy/AdvReac Type Severity Reaction Status Date / Time vancomycin Allergy Rash/Hives Verified 08/26/20 20:51 Review of Systems ROS Statement: Those systems with pertinent positive or pertinent negative responses have been documented in the HPI. ROS Other: All systems not noted in ROS Statement are negative. 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 History of Any Multi-Drug Resistant Organisms: None Reported, MRSA Date of last positivie culture/infection: 1997 MDRO Source:: left shoulder Past Surgical History: Bariatric Surgery, Cholecystectomy, Heart Catheterization, Hysterectomy, Joint Replacement, Orthopedic Surgery Additional Past Surgical History / Comment(s): Bilateral knee replacement, left shoulder rotator cuff surgery, gastric bypass, D&C, EGD/colonoscopy, laryngeal tumor removed, Ganglion Cysts both wrists.PAIN CLINIC INJECTIONS, Past Anesthesia/Blood Transfusion Reactions: No Reported Reaction Date of Last Stent Placement:: 2012 Past Psychological History: Anxiety, Depression, Panic Disorder Smoking Status: Former smoker Past Alcohol Use History: None Reported Past Drug Use History: None Reported - Past Family History Mother Family Medical History: Cancer, Congestive Heart Failure (CHF), Diabetes Mellitus, Hypertension Additional Family Medical History / Comment(s): Mother passed at 93. Father Family Medical History: Myocardial Infarction (PA) Additional Family Medical History / Comment(s): Father of a PA at the age of 39 yrs. Sister(s) Family Medical History: Cancer Brother(s) Family Medical History: Cancer, Myocardial Infarction (PA) General Exam Limitations: no limitations General appearance: alert, in no apparent distress Head exam: Present: atraumatic, normocephalic, normal inspection Eye exam: Present: normal appearance, PERRL, EOMI. Absent: scleral icterus, conjunctival injection, periorbital swelling ENT exam: Present: normal exam, normal oropharynx, mucous membranes moist Neck exam: Present: normal inspection, full ROM. Absent: tenderness, meningismu s, lymphadenopathy Respiratory exam: Present: normal lung sounds bilaterally. Absent: respiratory distress, wheezes, rales, rhonchi, stridor Cardiovascular Exam: Present: regular rate, normal rhythm, normal heart sounds. Absent: systolic murmur, diastolic murmur, rubs, gallop, clicks GI/Abdominal exam: Present: soft, tenderness, normal bowel sounds, other (Colostomy left lower quadrant, bag empty). Absent: distended, guarding, rebound, rigid, mass Rectal exam: Present: deferred Extremities exam: Present: full ROM, normal capillary refill. Absent: tenderness, pedal edema, calf tenderness Back exam: Present: normal inspection. Absent: tenderness, CVA tenderness (R), CVA tenderness (L), paraspinal tenderness, rash noted Neurological exam: Present: alert, oriented X3, CN II-XII intact Psychiatric exam: Present: normal affect, normal mood Skin exam: Present: warm, dry, intact, normal color. Absent: rash Course Vital Signs 08/26/20 08/26/20 19:57 20:01 Temperature 98.7 F Pulse Rate 74 Respiratory 18 Rate Blood Pressure 119/74 O2 Sat by Pulse 99 Oximetry Medical Decision Making - Medical Decision Making Hemoglobin and hematocrit is 10.7 and 34.3 respectively, WBC count is 6.6. Creatinine level is 1.61 which is elevated from 07/20/2020 results of 0.5, patient will be admitted for acute kidney injury. CT without contrast shows no free air, no obstruction, a right lower lobe nodule 4 mm noted. Case discussed with Dr Daigle who is agreeable to this plan. - Lab Data Result diagrams: 08/26/20 20:45 08/26/20 20:45 Lab Results 08/26/20 08/26/20 08/26/20 Range/Units 20:45 20:45 20:45 WBC 6.6 (3.8-10.6) k/uL RBC 3.74 L (3.80-5.40) m/uL Hgb 10.7 L (11.4-16.0) gm/dL Hct 34.3 (34.0-46.0) % MCV 91.8 (80.0-100.0) fL MCH 28.6 (25.0-35.0) pg MCHC 31.1 (31.0-37.0) g/dL RDW 15.6 H (11.5-15.5) % Plt Count 304 (150-450) k/uL MPV 7.4 Neutrophils % 31 % Lymphocytes % 50 % Monocytes % 9 % Eosinophils % 5 % Basophils % 1 % Neutrophils # 2.1 (1.3-7.7) k/uL Lymphocytes # 3.3 (1.0-4.8) k/uL Monocytes # 0.6 (0-1.0) k/uL Eosinophils # 0.3 (0-0.7) k/uL Basophils # 0.1 (0-0.2) k/uL PT 11.6 (9.0-12.0) sec INR 1.1 (<1.2) APTT 24.6 (22.0-30.0) sec Sodium 131 L (137-145) mmol/L Potassium 3.9 (3.5-5.1) mmol/L Chloride 103 (98-107) mmol/L Carbon Dioxide 20 L (22-30) mmol/L Anion Gap 8 mmol/L BUN 17 (7-17) mg/dL Creatinine 1.61 H (0.52-1.04) mg/dL Est GFR (CKD-EPI)AfAm 36 (>60 ml/min/1.73 sqM) Est GFR (CKD-EPI)NonAf 31 (>60 ml/min/1.73 sqM) Glucose 92 (74-99) mg/dL Plasma Lactic Acid Anthony (0.7-2.0) mmol/L Calcium 8.7 (8.4-10.2) mg/dL Total Bilirubin 0.3 (0.2-1.3) mg/dL AST 26 (14-36) U/L ALT 11 (4-34) U/L Alkaline Phosphatase 111 (38-126) U/L Total Protein 6.2 L (6.3-8.2) g/dL Albumin 3.3 L (3.5-5.0) g/dL Amylase <30 L (30-110) U/L Lipase 78 (23-300) U/L 08/26/20 Range/Units 20:45 WBC (3.8-10.6) k/uL RBC (3.80-5.40) m/uL Hgb (11.4-16.0) gm/dL Hct (34.0-46.0) % MCV (80.0-100.0) fL MCH (25.0-35.0) pg MCHC (31.0-37.0) g/dL RDW (11.5-15.5) % Plt Count (150-450) k/uL MPV Neutrophils % % Lymphocytes % % Monocytes % % Eosinophils % % Basophils % % Neutrophils # (1.3-7.7) k/uL Lymphocytes # (1.0-4.8) k/uL Monocytes # (0-1.0) k/uL Eosinophils # (0-0.7) k/uL Basophils # (0-0.2) k/uL PT (9.0-12.0) sec INR (<1.2) APTT (22.0-30.0) sec Sodium (137-145) mmol/L Potassium (3.5-5.1) mmol/L Chloride (98-107) mmol/L Carbon Dioxide (22-30) mmol/L Anion Gap mmol/L BUN (7-17) mg/dL Creatinine (0.52-1.04) mg/dL Est GFR (CKD-EPI)AfAm (>60 ml/min/1.73 sqM) Est GFR (CKD-EPI)NonAf (>60 ml/min/1.73 sqM) Glucose (74-99) mg/dL Plasma Lactic Acid Anthony 1.8 (0.7-2.0) mmol/L Calcium (8.4-10.2) mg/dL Total Bilirubin (0.2-1.3) mg/dL AST (14-36) U/L ALT (4-34) U/L Alkaline Phosphatase (38-126) U/L Total Protein (6.3-8.2) g/dL Albumin (3.5-5.0) g/dL Amylase (30-110) U/L Lipase (23-300) U/L Disposition Clinical Impression: NINI (acute kidney injury) Disposition: ADMITTED IP TO THIS HOSP Condition: Fair Is patient prescribed a controlled substance at d/c from ED?: No Referrals: Joey Valdez MD [Primary Care Provider] - 1-2 days Decision Date: 08/26/20 Decision Time: 22:56
[2020-08-26 20:57] LABS: Basophils # (A) 0.1 k/uL (0-0.2); Basophils % (A) 1 %; Eosinophils # (A) 0.3 k/uL (0-0.7); Eosinophils % (A) 5 %; HCT 34.3 % (34.0-46.0); HGB 10.7 gm/dL (11.4-16.0); Lymphocytes # (A) 3.3 k/uL (1.0-4.8); Lymphocytes % (A) 50 %; MCH 28.6 pg (25.0-35.0); MCHC 31.1 g/dL (31.0-37.0); MCV 91.8 fL (80.0-100.0); Mean Platelet Volume 7.4; Monocytes # (A) 0.6 k/uL (0-1.0); Monocytes % (A) 9 %; Neutrophils # (A) 2.1 k/uL (1.3-7.7); Neutrophils % (A) 31 %; Platelet Count 304 k/uL (150-450); RBC 3.74 m/uL (3.80-5.40); RDW 15.6 % (11.5-15.5); WBC 6.6 k/uL (3.8-10.6)
[2020-08-26 21:07] LABS: ALT 11 U/L (4-34); AST 26 U/L (14-36); African American GFR (CKD) 36 (>60 ml/min/1.73 sqM); Albumin 3.3 g/dL (3.5-5.0); Alkaline Phosphatase 111 U/L (38-126); Amylase <30 U/L (30-110); Anion Gap 8 mmol/L; Blood Urea Nitrogen 17 mg/dL (7-17); Calcium 8.7 mg/dL (8.4-10.2); Carbon Dioxide 20 mmol/L (22-30); Chloride 103 mmol/L (98-107); Glucose 92 mg/dL (74-99); Lipase 78 U/L (23-300); Non-African American GFR(CKD) 31 (>60 ml/min/1.73 sqM); Potassium 3.9 mmol/L (3.5-5.1); Sodium 131 mmol/L (137-145); Total Bilirubin 0.3 mg/dL (0.2-1.3); Total Protein 6.2 g/dL (6.3-8.2)
[2020-08-26 21:11] LABS: INR 1.1 (<1.2); Partial Thromboplastin Time 24.6 sec (22.0-30.0); Prothrombin Time 11.6 sec (9.0-12.0)
--- NOTE | 2020-08-26 22:19 | CT ---
EXAMINATION TYPE: CT abdomen pelvis wo con DATE OF EXAM: 08/26/2020 COMPARISON: 07/09/2020. HISTORY: abdominal pain CT DLP: 761.3 mGycm Automated exposure control for dose reduction was used. TECHNIQUE: Helical acquisition of images was performed from the lung bases through the pelvis. FINDINGS: LUNG BASES: No acute abnormality is appreciated. 4 mm right middle lobe nodule. LIVER/GB: No significant abnormality is appreciated. Cholecystectomy. PANCREAS: No significant abnormality is seen. SPLEEN: No significant abnormality is seen. ADRENALS: No significant abnormality is seen. KIDNEYS: Left renal pelvic ectasia. Otherwise no bilateral hydronephrosis or nephrolithiasis. FREE AIR: No free air is visualized RETROPERITONEAL ADENOPATHY: None visualized REPRODUCTIVE ORGANS: No significant abnormality is seen URINARY BLADDER: No significant abnormality is seen. PELVIC ADENOPATHY: None visualized. OSSEOUS STRUCTURES: No acute abnormality is seen. Moderate lumbar spondylosis with grade 1 retrolist hesis at L2-L3 and anterolisthesis at L4-L5 BOWEL: Gastric bypass and left-sided colostomy seen. No bowel obstruction, free air or fluid. Mild f at stranding about the anterior abdominal wall subcutaneous soft tissue seen. OTHER: Advanced atherosclerotic disease. IMPRESSION: INTERVAL LEFT-SIDED OSTOMY WITH MILD FAT STRANDING ABOUT THE ANTERIOR ABDOMINAL WALL SUBCUTANEOUS SOF T TISSUES. NO SIGNIFICANT FLUID COLLECTION. NO BOWEL OBSTRUCTION. Incidental 4 mm right lower lobe nodule. Recommend follow-up. Additional chronic findings as above.
[2020-08-26] MEDS ORDERED: NALOXONE 0.4 MG/ML 1 ML VIAL IV PRN (22:57)
[2020-08-26] MEDS ORDERED: ONDANSETRON 4 MG/2 ML VIAL IVP PRN (22:57)
[2020-08-26] MEDS ORDERED: MORPHINE SULFATE 2 MG/ML SYRINGE IVP ONE (23:00)
[2020-08-26 23:31] LABS: Appearance,Urine Clear (Clear); Bacteria,Urine Rare /hpf; Bilirubin,Urine Negative (Negative); Blood,Urine Negative (Negative); Color,Urine Yellow; Glucose,Urine (UA) Negative (Negative); Hyaline Casts,Urine 52 /lpf (0-2); Ketones,Urine Negative (Negative); Leukocyte Esterase,Urine Moderate (Negative); Mucus,Urine Rare /hpf; Nitrite,Urine Negative (Negative); PH, Urine 5.5 (5.0-8.0); Protein,Urine Negative (Negative); RBC,Urine 2 /hpf (0-5); Specific Gravity,Urine 1.015 (1.001-1.035); Squamous Epithelial Cell,Urine 3 /hpf (0-4); Urobilinogen,Urine <2.0 mg/dL (<2.0); WBC,Urine 6 /hpf (0-5)
[2020-08-26] MEDS: SODIUM CHLORIDE 0.9% 1,000 ML IV SCH (23:38)
[2020-08-27] MEDS: ACETAMINOPHEN TAB 325 MG TAB PO PRN ×2 (02:45→10:38)
[2020-08-27] MEDS ORDERED: PANTOPRAZOLE 40 MG TABLET PO SCH (10:30)
[2020-08-27] MEDS: PANTOPRAZOLE 40 MG TABLET PO SCH (10:38)
--- NOTE | 2020-08-27 11:18 | P.GSCN ---
History of Present Illness Consult date: 08/27/20 History of present illness: CHIEF COMPLAINT: Generalized abdominal pain HISTORY OF PRESENT ILLNESS: The patient is a 74 year old female status post lysis of adhesions and end colostomy for diverticulitis 07/10/20. She reports prior intractable nausea and vomiting prior to her surgery that has now improved. She had seen her surgeon earlier in the week less than 6 days ago with complaints of right lower quadrant and jonah-umbilical pain. No fevers or chills. She reports gas bloat. She reports additional history of gastric bypass over 20+ years ago at [facility] without any recent follow-up. She had been on antibiotics as prescribed per her surgeon without improvement of her abdominal pain. She denies diarrhea. General surgery is consulted for generalized abdominal pain. She reported mild drainage from her umbilicus that is now resolved. PAST MEDICAL HISTORY: See list and reviewed PAST SURGICAL HISTORY: See list and reviewed MEDICATIONS: See list and reviewed ALLERGIES: See list and reviewed SOCIAL HISTORY: See list and reviewed FAMILY HISTORY: See list and reviewed REVIEW OF ORGAN SYSTEMS: CONSTITUTIONAL: No fevers or chills. Past gastric bypass. BMI over 31.9 EYES: Denies any trouble with vision. No glasses. HEENT: No difficulties with hearing. No nosebleeds. No difficulty swallowing. RESPIRATORY: Denies pneumonia. Denies any troubles with breathing or dyspnea on exertion. CARDIOVASCULAR: Denies any chest pain, palpitations, or recent heart attacks. GASTROINTESTINAL: Past gastric bypass over 20+ years ago. Recent colostomy for diverticulitis. GENITOURINARY: Denies any blood in urine or increased urinary frequency. NEUROLOGICAL: Denies any numbness or tingling along the distal extremities. No seizure disorders or headaches. MUSCULOSKELETAL: Has back pain, stiffness or joint arthritis. SKIN: No current skin cancer. No rash. PSYCHIATRIC: Denies current depression or suicidal thoughts. ENDOCRINE: Denies current thyroid disorders. Denies any blood sugar glucose intolerance. HEME/LYMPHATIC: Denies any lumps and bumps around the neck. No recent deep venous thrombosis. ALLERGY/IMMUNOLOGY: No immunoglobulin therapy. No immune deficiencies. BREAST: Denies current breast lumps, pain or nipple discharge. PHYSICAL EXAM: VITALS: Reviewed CONSTITUTIONAL: Well developed and in no acute distress. EYES: Conjuctivae without sclera icterus. Extraocular movements grossly intact. HEAD, EARS, NOSE, THROAT: Moist buccal mucosa. Head is atraumatic, normocephalic. Hears conversational speech. No nasal drainage. NECK: Supple. No JV distention. No thyroidomegaly. RESPIRATORY: Non-labored respirations and equal bilateral excursions. No gross wheezes. CARDIOVASCULAR: Regular rate and rhythm. Extremities without moderate edema. Palpable 2+ radial pulses. ABDOMEN: No peritonitis. Dressing intact. LYMPH: No neck lymphadenopathy. MUSCULOSKELETAL: Nail and fingers with good capillary refill. SKIN: Warm and well perfused with good skin turgor. NEUROLOGIC: Cranial nerves II through XII grossly intact. Sensation upper and extremities intact. No focal or lateralizing signs. PSYCH: Appropriate affect. Alert and oriented to person, place and time. Displays appropriate insight. CLINCAL LABS: Reviewed. WBC normal. Creatinine elevated 1.61. IMAGING: Independently reviewed CT of the abdomen and pelvis with features of gastric bypass. No small bowel dilation of obstruction. No parastomal hernia. No fluid collections. This is my independent interpretation. RADIOLOGY: Report reviewed RECORDS: previous old records reviewed for 07/10/20 operative report for end colostomy creation. ASSESSMENT: 1. Generalized abdominal 2. Recent descending end colostomy for diverticulitis 3. History of gastric bypass 4. Abdominal gas bloat 5. Dehydration with acute kidney injury PLAN: 1. Recommend Simethicone for gas bloat 2. Findings of CT scan reviewed without recurrent small bowel obstruction. 3. Recommend IV fluid hydration 4. Recommend conservative management Thank you for this kind consultation. 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 History of Any Multi-Drug Resistant Organisms: None Reported, MRSA Year Discovered:: 1997 MDRO Source:: left shoulder Past Surgical History: Bariatric Surgery, Cholecystectomy, Heart Catheterization, Hysterectomy, Joint Replacement, Orthopedic Surgery Additional Past Surgical History / Comment(s): Bilateral knee replacement, left shoulder rotator cuff surgery, gastric bypass, D&C, EGD/colonoscopy, laryngeal tumor removed, Ganglion Cysts both wrists.PAIN CLINIC INJECTIONS, Past Anesthesia/Blood Transfusion Reactions: No Reported Reaction Date of Last Stent Placement:: 2012 Past Psychological History: Anxiety, Depression, Panic Disorder Additional Psychological History / Comment(s): pt is curently staying with her son since recent discharge from hospital otherwise lives [place]. currently has [facility] and visiting physician fely tsang Smoking Status: Never smoker Past Alcohol Use History: None Reported Additional Past Alcohol Use History / Comment(s): Pt started smoking in 1959 and quit in 1980, 1ppd. Past Drug Use History: None Reported - Past Family History Mother Family Medical History: Cancer, Congestive Heart Failure (CHF), Diabetes Mellitus, Hypertension Additional Family Medical History / Comment(s): Mother passed at 93. Father Family Medical History: Myocardial Infarction (NH) Additional Family Medical History / Comment(s): Father of a NH at the age of 39 yrs. Sister(s) Family Medical History: Cancer Brother(s) Family Medical History: Cancer, Myocardial Infarction (NH) Medications and Allergies Home Medications Medication Instructions Recorded Confirmed Type Levothyroxine Sodium [Synthroid] 200 mcg PO DAILY 01/12/19 08/26/20 History Pantoprazole [Protonix] 40 mg PO DAILY 07/09/20 08/26/20 History lisinopriL 40 mg PO DAILY 07/09/20 08/26/20 History HYDROcodone/APAP 10-325MG [[place] 1 tab PO Q6H 08/26/20 08/26/20 History 10-325] Morphine Sulfate ER [Ms Contin] 15 mg PO Q12HR PRN 08/26/20 08/26/20 History QUEtiapine FUMARATE [SEROquel] 25 mg PO HS 08/26/20 08/26/20 History Allergies Allergy/AdvReac Type Severity Reaction Status Date / Time vancomycin Allergy Rash/Hives Verified 08/26/20 20:51 Surgical - Exam Vital Signs Pulse Resp BP Pulse Ox 74 18 119/74 99 08/26/20 19:57 08/26/20 19:57 08/26/20 19:57 08/26/20 19:57 Results - Labs 08/26/20 20:45 08/26/20 20:45 Abnormal Lab Results - Last 24 Hours (Table) 08/26/20 08/26/20 08/26/20 Range/Units 20:45 20:45 23:11 RBC 3.74 L (3.80-5.40) m/uL Hgb 10.7 L (11.4-16.0) gm/dL RDW 15.6 H (11.5-15.5) % Sodium 131 L (137-145) mmol/L Carbon Dioxide 20 L (22-30) mmol/L Creatinine 1.61 H (0.52-1.04) mg/dL Total Protein 6.2 L (6.3-8.2) g/dL Albumin 3.3 L (3.5-5.0) g/dL Amylase <30 L (30-110) U/L Ur Leukocyte Esterase Moderate H (Negative) Urine WBC 6 H (0-5) /hpf Urine Bacteria Rare H (None) /hpf Hyaline Casts 52 H (0-2) /lpf Urine Mucus Rare H (None) /hpf Diabetes panel 08/26/20 Range/Units 20:45 Sodium 131 L (137-145) mmol/L Potassium 3.9 (3.5-5.1) mmol/L Chloride 103 (98-107) mmol/L Carbon Dioxide 20 L (22-30) mmol/L BUN 17 (7-17) mg/dL Creatinine 1.61 H (0.52-1.04) mg/dL Glucose 92 (74-99) mg/dL Calcium 8.7 (8.4-10.2) mg/dL AST 26 (14-36) U/L ALT 11 (4-34) U/L Alkaline Phosphatase 111 (38-126) U/L Total Protein 6.2 L (6.3-8.2) g/dL Albumin 3.3 L (3.5-5.0) g/dL Calcium panel 08/26/20 Range/Units 20:45 Calcium 8.7 (8.4-10.2) mg/dL Albumin 3.3 L (3.5-5.0) g/dL Pituitary panel 08/26/20 Range/Units 20:45 Sodium 131 L (137-145) mmol/L Potassium 3.9 (3.5-5.1) mmol/L Chloride 103 (98-107) mmol/L Carbon Dioxide 20 L (22-30) mmol/L BUN 17 (7-17) mg/dL Creatinine 1.61 H (0.52-1.04) mg/dL Glucose 92 (74-99) mg/dL Calcium 8.7 (8.4-10.2) mg/dL Adrenal panel 08/26/20 Range/Units 20:45 Sodium 131 L (137-145) mmol/L Potassium 3.9 (3.5-5.1) mmol/L Chloride 103 (98-107) mmol/L Carbon Dioxide 20 L (22-30) mmol/L BUN 17 (7-17) mg/dL Creatinine 1.61 H (0.52-1.04) mg/dL Glucose 92 (74-99) mg/dL Calcium 8.7 (8.4-10.2) mg/dL Total Bilirubin 0.3 (0.2-1.3) mg/dL AST 26 (14-36) U/L ALT 11 (4-34) U/L Alkaline Phosphatase 111 (38-126) U/L Total Protein 6.2 L (6.3-8.2) g/dL Albumin 3.3 L (3.5-5.0) g/dL
[2020-08-27 11:38] LABS: African American GFR (CKD) 53 (>60 ml/min/1.73 sqM); Anion Gap 4 mmol/L; Blood Urea Nitrogen 16 mg/dL (7-17); Calcium 8.2 mg/dL (8.4-10.2); Carbon Dioxide 20 mmol/L (22-30); Chloride 109 mmol/L (98-107); Glucose 89 mg/dL (74-99); Non-African American GFR(CKD) 46 (>60 ml/min/1.73 sqM); Potassium 4.3 mmol/L (3.5-5.1); Sodium 133 mmol/L (137-145)
[2020-08-27] MEDS: HYDROcodone/APAP 10-325MG 1 EACH TAB PO SCH ×2 (12:01→17:35)
--- NOTE | 2020-08-27 16:52 | P.HPIM ---
History of Present Illness 74-year-old female came in with the nausea vomiting and and crit increased urine output from the colostomy. Patient had bowel resection with a colostomy bag that was done on 07/10/2020 at the time medications. Patient had a computed tomography scan of the abdomen which did not show any significant abnormality. Patient althoughhas acute renal failure with creatinine going up to 1.61 and patient was hyponatremic as well. Patient is admitted for dehydration. Patient the probably has acute gastroenteritis. Patient is still complaining of crampy abdominal pain in the mid abdominal area and apical area and patient is concern ed that she may have purulent discharge from theumbilicus area. Patient with has recently seen her surgeon who started her on the antibiotics about a week ago as he had concerns for colitis. Review of Systems REVIEW OF SYSTEMS: CONSTITUTIONAL: No fever, no malaise, no fatigue. HEENT: No recent visual problems or hearing problems. Denied any sore throat. CARDIOVASCULAR: No chest pain, orthopnea, PND, no palpitations, no syncope. PULMONARY: No shortness of breath, no cough, no hemoptysis. GASTROINTESTINAL: as mentioned in HPI NEUROLOGICAL: No headaches, no weakness, no numbness. HEMATOLOGICAL: Denies any bleeding or petechiae. GENITOURINARY: Denies any burning micturition, frequency, or urgency. MUSCULOSKELETAL/RHEUMATOLOGICAL: Denies any joint pain, swelling, or any muscle pain. ENDOCRINE: Denies any polyuria or polydipsia. The rest of the 14-point review of systems is negative. 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 History of Any Multi-Drug Resistant Organisms: None Reported, MRSA Date of last positivie culture/infection: 1997 MDRO Source:: left shoulder Past Surgical History: Bariatric Surgery, Cholecystectomy, Heart Cathete rization, Hysterectomy, Joint Replacement, Orthopedic Surgery Additional Past Surgical History / Comment(s): Bilateral knee replacement, left shoulder rotator cuff surgery, gastric bypass, D&C, EGD/colonoscopy, laryngeal tumor removed, Ganglion Cysts both wrists.PAIN CLINIC INJECTIONS, Past Anesthesia/Blood Transfusion Reactions: No Reported Reaction Date of Last Stent Placement:: 2012 Past Psychological History: Anxiety, Depression, Panic Disorder Additional Psychological History / Comment(s): pt is curently staying with her son since recent discharge from hospital otherwise lives [place]. currently has [facility] and visiting physician fely tsang Smoking Status: Never smoker Past Alcohol Use History: None Reported Additional Past Alcohol Use History / Comment(s): Pt started smoking in 1959 and quit in 1980, 1ppd. Past Drug Use History: None Reported - Past Family History Mother Family Medical History: Cancer, Congestive Heart Failure (CHF), Diabetes Mellitus, Hypertension Additional Family Medical History / Comment(s): Mother passed at 93. Father Family Medical History: Myocardial Infarction (MA) Additional Family Medical History / Comment(s): Father of a MA at the age of 39 yrs. Sister(s) Family Medical History: Cancer Brother(s) Family Medical History: Cancer, Myocardial Infarction (MA) Medications and Allergies Home Medications Medication Instructions Recorded Confirmed Type Levothyroxine Sodium [Synthroid] 200 mcg PO DAILY 01/12/19 08/26/20 History Pantoprazole [Protonix] 40 mg PO DAILY 07/09/20 08/26/20 History lisinopriL 40 mg PO DAILY 07/09/20 08/26/20 History HYDROcodone/APAP 10-325MG [[place] 1 tab PO Q6H 08/26/20 08/26/20 History 10-325] Morphine Sulfate ER [Ms Contin] 15 mg PO Q12HR PRN 08/26/20 08/26/20 History QUEtiapine FUMARATE [SEROquel] 25 mg PO HS 08/26/20 08/26/20 History Allergies Allergy/AdvReac Type Severity Reaction Status Date / Time vancomycin Allergy Rash/Hives Verified 08/26/20 20:51 Physical Exam Vitals: Vital Signs Temp Pulse Pulse Resp BP BP Pulse Ox 08/27/20 07:00 98.3 F 71 16 104/63 95 08/27/20 00:36 98.5 F 88 16 160/84 97 08/26/20 23:52 84 16 148/68 100 08/26/20 20:01 98.7 F 08/26/20 19:57 74 18 119/74 99 Intake and Output 08/26/20 08/27/20 08/27/20 22:59 06:59 14:59 Other: Voiding Method Toilet Toilet # Voids 2 Weight 81.647 kg 81.647 kg PHYSICAL EXAMINATION: GENERAL: The patient is alert and oriented x3, not in any acute distress. Well developed, well nourished. HEENT: Pupils are round and equally reacting to light. EOMI. No scleral icterus. No conjunctival pallor. Normocephalic, atraumatic. No pharyngeal erythema. No thyromegaly. CARDIOVASCULAR: S1 and S2 present. No murmurs, rubs, or gallops. PULMONARY: Chest is clear to auscultation, no wheezing or crackles. ABDOMEN: Soft, nontender, nondistended, normoactive bowel sounds. No palpable organomegaly. colostomy bag in place no purulent drainage from the umblical area. MUSCULOSKELETAL: No joint swelling or deformity. EXTREMITIES: No cyanosis, clubbing, or pedal edema. NEUROLOGICAL: Gross neurological examination did not reveal any focal deficits. SKIN: No rashes. Results CBC & Chem 7: 08/26/20 20:45 08/27/20 11:07 Labs: Abnormal Lab Results - Last 24 Hours (Table) 08/26/20 08/26/20 08/26/20 Range/Units 20:45 20:45 23:11 RBC 3.74 L (3.80-5.40) m/uL Hgb 10.7 L (11.4-16.0) gm/dL RDW 15.6 H (11.5-15.5) % Sodium 131 L (137-145) mmol/L Chloride (98-107) mmol/L Carbon Dioxide 20 L (22-30) mmol/L Creatinine 1.61 H (0.52-1.04) mg/dL Calcium (8.4-10.2) mg/dL Total Protein 6.2 L (6.3-8.2) g/dL Albumin 3.3 L (3.5-5.0) g/dL Amylase <30 L (30-110) U/L Ur Leukocyte Esterase Moderate H (Negative) Urine WBC 6 H (0-5) /hpf Urine Bacteria Rare H (None) /hpf Hyaline Casts 52 H (0-2) /lpf Urine Mucus Rare H (None) /hpf 08/27/20 Range/Units 11:07 RBC (3.80-5.40) m/uL Hgb (11.4-16.0) gm/dL RDW (11.5-15.5) % Sodium 133 L (137-145) mmol/L Chloride 109 H (98-107) mmol/L Carbon Dioxide 20 L (22-30) mmol/L Creatinine 1.18 H (0.52-1.04) mg/dL Calcium 8.2 L (8.4-10.2) mg/dL Total Protein (6.3-8.2) g/dL Albumin (3.5-5.0) g/dL Amylase (30-110) U/L Ur Leukocyte Esterase (Negative) Urine WBC (0-5) /hpf Urine Bacteria (None) /hpf Hyaline Casts (0-2) /lpf Urine Mucus (None) /hpf Thrombosis Risk Factor Assmnt - Choose All That Apply Each Factor Represents 1 point: Obesity (BMI >25) Each Risk Factor Represents 2 Points: Age 61-74 years Thrombosis Risk Factor Assessment Total Risk Factor Score: 3 Thrombosis Risk Factor Assessment Level: Moderate Risk Assessment and Plan Plan: -Nausea vomiting diarrhea: Probably secondary to acute gastroenteritis considering the patient is on antibiotics, will obtain C. diff testing. Patient will continue with IV fluids patient will not require any antibiotics general surgery evaluated the patient. Patient's surgical site areas appear to be clean there is no purulent drainage from from the medical area. -Acute renal failure: Secondary to intravascular depletion and prerenal azotemia from diarrhea nausea vomiting, patient will be started and continued on IV fluids -Hypervolemic hyponatremia improving with IV fluids -Coronary artery disease -Gastroesophageal reflux disease -Hypertension -Due to prophylaxis with Lovenox -Depression For above-mentioned chronic medical problems patient will be resumed on appropriate home medications
[2020-08-27] MEDS: SODIUM CHLORIDE 0.9% 1,000 ML IV SCH ×2 (18:43→20:20)
[2020-08-27] MEDS: QUEtiapine 25 MG TAB PO SCH (20:19)
[2020-08-28] MEDS: HYDROcodone/APAP 10-325MG 1 EACH TAB PO SCH ×4 (00:30→17:36)
[2020-08-28] MEDS: SODIUM CHLORIDE 0.9% 1,000 ML IV SCH ×3 (05:28→20:45)
[2020-08-28] MEDS: LEVOTHYROXINE 100 MCG TAB PO SCH (05:34)
[2020-08-28] MEDS: PANTOPRAZOLE 40 MG TABLET PO SCH (08:23)
[2020-08-28] MEDS: ACETAMINOPHEN TAB 325 MG TAB PO PRN (08:37)
[2020-08-28 11:35] LABS: African American GFR (CKD) 83 (>60 ml/min/1.73 sqM); Anion Gap 3 mmol/L; Blood Urea Nitrogen 14 mg/dL (7-17); Calcium 8.2 mg/dL (8.4-10.2); Carbon Dioxide 21 mmol/L (22-30); Chloride 109 mmol/L (98-107); Glucose 94 mg/dL (74-99); Non-African American GFR(CKD) 72 (>60 ml/min/1.73 sqM); Potassium 4.8 mmol/L (3.5-5.1); Sodium 133 mmol/L (137-145)
--- NOTE | 2020-08-28 14:17 | P.PN ---
Subjective Progress Note Date: 08/28/20 CHIEF COMPLAINT: Generalized abdominal pain HISTORY OF PRESENT ILLNESS: The patient is a 74 year old female status post lysis of adhesions and end colostomy for diverticulitis 07/10/20. She presents to Hospital. Moderate severe periumbilical right lower quadrant abdominal pain. Diagnostic studies were negative for acute abnormalities. Since admission, abdominal pain is still persistent and has not improved. She has no output from her ostomy. REVIEW OF ORGAN SYSTEMS: No fevers or chills. No nausea or vomiting. PHYSICAL EXAM: VITALS: Reviewed CONSTITUTIONAL: Well developed and in no acute distress. EYES: Conjuctivae without sclera icterus. Extraocular movements grossly intact. HEAD, EARS, NOSE, THROAT: Moist buccal mucosa. Head is atraumatic, normocephalic. Hears conversational speech. No nasal drainage. RESPIRATORY: Non-labored respirations and equal bilateral excursions. No gross wheezes. CARDIOVASCULAR: Regular rate and rhythm. Extremities without moderate edema. Palpable 2+ radial pulses. ABDOMEN: Protuberant. Ostomy without flatus or stool. No gross peritonitis. MUSCULOSKELETAL: Nail and fingers with good capillary refill. SKIN: Warm and well perfused with good skin turgor. NEUROLOGIC: Cranial nerves II through XII grossly intact. Sensation upper and extremities intact. No focal or lateralizing signs. PSYCH: Appropriate affect. Alert and oriented to person, place and time. Displays appropriate insight. CLINCAL LABS: Reviewed. WBC normal. Creatinine elevated 1.61 now improved to 0.8. ASSESSMENT: 1. Generalized abdominal with ileus 2. Recent descending end colostomy for diverticulitis 3. History of gastric bypass 4. Abdominal gas bloat 5. Dehydration with acute kidney injury 6. Colostomy status 7. Hyponatremia PLAN: 1. She has adynamic ileus with abdominal pain and recommend a laxative. 2. Patient may be cleared for discharge once ostomy is functioning. Care plan discussed with hospitalist team. 3. Continue hospitalization Objective - Vital Signs Vital signs: Vital Signs Temp 98.0 F 08/28/20 07:00 Pulse 71 08/28/20 07:00 Resp 14 08/28/20 07:00 BP 114/62 08/28/20 07:00 Pulse Ox 97 08/28/20 07:00 Intake & Output 08/27/20 08/28/20 08/28/20 18:59 06:59 18:59 Intake Total 30 620 Balance 30 620 Intake: Oral 30 620 Other: Voiding Method Toilet Toilet Toilet # Voids 3 2 1 # Emeses 0 - Labs CBC & Chem 7: 08/26/20 20:45 08/28/20 10:31 Labs: Abnormal Lab Results - Last 24 Hours (Table) 08/28/20 Range/Units 10:31 Sodium 133 L (137-145) mmol/L Chloride 109 H (98-107) mmol/L Carbon Dioxide 21 L (22-30) mmol/L Calcium 8.2 L (8.4-10.2) mg/dL Assessment and Plan (1) Adynamic ileus Current Visit: Yes Status: Acute Code(s): K56.0 - PARALYTIC ILEUS SNOMED Code(s): 42779598 (2) Generalized abdominal pain Current Visit: Yes Status: Acute Code(s): R10.84 - GENERALIZED ABDOMINAL PAIN SNOMED Code(s): 680906689 (3) Colostomy status Current Visit: Yes Status: Acute Code(s): Z93.3 - COLOSTOMY STATUS SNOMED Code(s): 533148586 (4) Dehydration Current Visit: No Status: Acute Code(s): E86.0 - DEHYDRATION SNOMED Code(s): 07716257 (5) H/O gastric bypass Current Visit: No Status: Acute Code(s): Z98.890 - OTHER SPECIFIED POSTPROCEDURAL STATES SNOMED Code(s): 095690914 (6) Hyponatremia Current Visit: No Status: Acute Code(s): E87.1 - HYPO-OSMOLALITY AND HYPONATREMIA SNOMED Code(s): 83696128
[2020-08-28] MEDS ORDERED: MAGNESIUM HYDROXIDE 2,400 MG/10 ML CUP PO ONE (15:00)
[2020-08-28] MEDS: LACTULOSE 20 GM/30 ML CUP PO SCH ×2 (16:00→20:46)
--- NOTE | 2020-08-28 17:09 | P.PN ---
Subjective 74-year-old female came in with the nausea vomiting and and crit increased urine output from the colostomy. Patient had bowel resection with a colostomy bag that was done on 07/10/2020 at the time medications. Patient had a computed tomography scan of the abdomen which did not show any significant abnormality. Patient althoughhas acute renal failure with creatinine going up to 1.61 and patient was hyponatremic as well. Patient is admitted for dehydration. Patient the probably has acute gastroenteritis. Patient is still complaining of crampy abdominal pain in the mid abdominal area and apical area and patient is concerned that she may have purulent discharge from theumbilicus area. Patient with has recently seen her surgeon who started her on the antibiotics about a week ago as he had concerns for colitis. 08/28/2020 Patient doesn't have any significant output in the colostomy bag today because of which there is concern for ileus which is being managed by general surgery. Patient still has mild tenderness Constitutional: Denied any fatigue denied any fever. Cardio vascular: denied any chest pain, palpitations Gastrointestinal as mentioned in HPI Pulmonary: Denied any shortness of breath cough Neurologic denied any new focal deficits All inpatient medications were reviewed and appropriate changes in these medications as dictated in the interval history and assessment and plan. Objective - Vital Signs Vital signs: Vital Signs Temp 97.8 F 08/28/20 14:19 Pulse 79 08/28/20 14:19 Resp 16 08/28/20 14:19 BP 105/60 08/28/20 14:19 Pulse Ox 95 08/28/20 14:19 Intake & Output 08/27/20 08/28/20 08/28/20 18:59 06:59 18:59 Intake Total 30 620 Balance 30 620 Intake: Oral 30 620 Other: Voiding Method Toilet Toilet Toilet # Voids 3 2 1 # Emeses 0 - Exam PHYSICAL EXAMINATION: GENERAL: The patient is alert and oriented x3, not in any acute distress. Well developed, well nourished. HEENT: Pupils are round and equally reacting to light. EOMI. No scleral icterus. No conjunctival pallor. Normocephalic, atraumatic. No pharyngeal erythema. No thyromegaly. CARDIOVASCULAR: S1 and S2 present. No murmurs, rubs, or gallops. PULMONARY: Chest is clear to auscultation, no wheezing or crackles. ABDOMEN: Soft, nontender, nondistended, normoactive bowel sounds. No palpable organomegaly. colostomy bag in place no purulent drainage from the umblical area. MUSCULOSKELETAL: No joint swelling or deformity. EXTREMITIES: No cyanosis, clubbing, or pedal edema. NEUROLOGICAL: Gross neurological examination did not reveal any focal deficits. SKIN: No rashes. - Labs CBC & Chem 7: 08/26/20 20:45 08/28/20 10:31 Labs: Abnormal Lab Results - Last 24 Hours (Table) 08/28/20 Range/Units 10:31 Sodium 133 L (137-145) mmol/L Chloride 109 H (98-107) mmol/L Carbon Dioxide 21 L (22-30) mmol/L Calcium 8.2 L (8.4-10.2) mg/dL Assessment and Plan Plan: Abdominal pain possible ileus: Management as -Nausea vomiting diarrhea: On admission which resolved at this time unable to obtain stool for C. diff. -Acute renal failure: Secondary to intravascular depletion and prerenal azotemia from diarrhea nausea vomiting, improved with IV fluids -Hypervolemic hyponatremia improving with IV fluids -Coronary artery disease -Gastroesophageal reflux disease -Hypertension -Due to prophylaxis with Lovenox -Depression For above-mentioned chronic medical problems patient will be resumed on appropriate home medications
[2020-08-28] MEDS: QUEtiapine 25 MG TAB PO SCH (20:46)
[2020-08-29] MEDS: HYDROcodone/APAP 10-325MG 1 EACH TAB PO SCH ×4 (01:06→18:01)
[2020-08-29] MEDS: LEVOTHYROXINE 100 MCG TAB PO SCH (05:45)
[2020-08-29] MEDS: PANTOPRAZOLE 40 MG TABLET PO SCH (08:30)
[2020-08-29] MEDS: LACTULOSE 20 GM/30 ML CUP PO SCH ×3 (08:47→20:07)
[2020-08-29] MEDS: SODIUM CHLORIDE 0.9% 1,000 ML IV SCH ×2 (08:47→20:13)
[2020-08-29 11:29] LABS: African American GFR (CKD) >90 (>60 ml/min/1.73 sqM); Anion Gap 3 mmol/L; Blood Urea Nitrogen 11 mg/dL (7-17); Calcium 8.7 mg/dL (8.4-10.2); Carbon Dioxide 23 mmol/L (22-30); Chloride 109 mmol/L (98-107); Glucose 94 mg/dL (74-99); Magnesium 1.8 mg/dL (1.6-2.3); Non-African American GFR(CKD) 88 (>60 ml/min/1.73 sqM); Potassium 3.9 mmol/L (3.5-5.1); Sodium 135 mmol/L (137-145)
[2020-08-29 12:06] LABS: HCT 35.2 % (34.0-46.0); MCH 28.5 pg (25.0-35.0); MCHC 31.4 g/dL (31.0-37.0); MCV 90.8 fL (80.0-100.0); Mean Platelet Volume 7.1; Platelet Count 277 k/uL (150-450); RBC 3.88 m/uL (3.80-5.40); RDW 15.5 % (11.5-15.5); WBC 4.9 k/uL (3.8-10.6)
--- NOTE | 2020-08-29 13:21 | P.PN ---
Subjective Progress Note Date: 08/29/20 74-year-old female came in with the nausea vomiting and and crit increased urine output from the colostomy. Patient had bowel resection with a colostomy bag that was done on 07/10/2020 at the time medications. Patient had a computed tomography scan of the abdomen which did not show any significant abnormality. Patient although has acute renal failure with creatinine going up to 1.61 and patient was hyponatremic as well. Patient is admitted for dehydration. Patient the probably has acute gastroenteritis. Patient is still complaining of crampy abdominal pain in the mid abdominal area and apical area and patient is concerned that she may have purulent discharge from theumbilicus area. Patient with has recently seen her surgeon who started her on the antibiotics about a week ago as he had concerns for colitis. 08/28/2020 Patient doesn't have any significant output in the colostomy bag today because of which there is concern for ileus which is being managed by general surgery. Patient still has mild tenderness 08/29/2020 Patient is seen and evaluated in follow-up continues to have minimal output noted in the colostomy and also had an episode of vomiting this morning. Surgery is following. Patient is maintained on heart healthy diet and will continue with as needed Zofran and monitor closely. Basic metabolic panel shows a sodium of 135 with a potassium 3.9 and current creatinine is 0.65 and magnesium is 1.8. White blood count is 4.9 and hemoglobin is stable 11.0 with no bleeding noted. Patient did Have C. diff testing which was negative. Will continue with bowel regimen and monitor for increased out put in the ostomy. Review of systems: Constitutional: No reports of fatigue, fever, or chills Cardiovascular: No reports of chest pain or palpitations Respiratory: No reports of shortness of breath or cough GI: Reported nausea with an episode of vomiting this morning and minimal output in the ostomy noted : No reports of dysuria or retention Neurovascular: No reports of weakness or numbness All medications have been reviewed Objective - Vital Signs Vital signs: Vital Signs Temp 98.4 F 08/29/20 07:00 Pulse 76 08/29/20 12:39 Resp 16 08/29/20 12:39 BP 164/76 08/29/20 07:00 Pulse Ox 97 08/29/20 07:00 Intake & Output 08/28/20 08/29/2021 18:59 06:59 18:59 Intake Total 820 Balance 820 Intake: Oral 820 Other: Voiding Method Toilet Toilet Toilet # Voids 1 1 - Exam GENERAL: The patient is alert and oriented x3, not in any acute distress. Well developed, well nourished. HEENT: Pupils are round and equally reacting to light. EOMI. No scleral icterus. No conjunctival pallor. Normocephalic, atraumatic. No pharyngeal erythema. No thyromegaly. CARDIOVASCULAR: S1 and S2 present. No murmurs, rubs, or gallops. PULMONARY: Chest is clear to auscultation, no wheezing or crackles. ABDOMEN: Soft, mild diffuse tenderness noted on palpation of left and right lower quadrant, nondistended, normoactive bowel sounds. No palpable organomegaly. colostomy bag in place no purulent drainage from the umblical area noted and minimal output of liquid stool in the ostomy. MUSCULOSKELETAL: No joint swelling or deformity. EXTREMITIES: No cyanosis, clubbing, or pedal edema. NEUROLOGICAL: Gross neurological examination did not reveal any focal deficits. SKIN: No rashes. - Labs CBC & Chem 7: 08/29/20 11:01 08/29/20 11:01 Labs: Abnormal Lab Results - Last 24 Hours (Table) 08/29/20 08/29/20 Range/Units 11:01 11:01 Hgb 11.0 L (11.4-16.0) gm/dL Sodium 135 L (137-145) mmol/L Chloride 109 H (98-107) mmol/L Assessment and Plan Assessment: -Abdominal pain possible ileus: Surgery following and will continue with bowel regimen and monitor for ostomy output -Nausea vomiting diarrhea: On admission which had resolved, stool was negative for C. diff and has minimal output in the ileostomy and did have an episode of emesis this morning after ambulating. -Acute renal failure: Secondary to intravascular depletion and prerenal azotemia from diarrhea nausea vomiting, improved with IV fluids -Hypervolemic hyponatremia improving with IV fluids -Coronary artery disease -Gastroesophageal reflux disease -Hypertension -DVT prophylaxis with Lovenox -Depression Plan: Continue to monitor ostomy for output and continue on current diet. Will monitor for any further episodes of emesis or nausea. Instructed the patient increase activity as tolerated. C. diff Testing was negative. Surgery following and will discuss with surgery about treatment plan. Continue with bowel regimen. Possible discharge in 24 hours.
--- NOTE | 2020-08-29 13:25 | P.PN ---
Subjective Progress Note Date: 08/29/20 CHIEF COMPLAINT: Abdominal pain HISTORY OF PRESENT ILLNESS: Surgical service is following regards to patient's ileus. She was started on lactulose. She is in having minimal stool through her ostomy. But she was still complaining of abdominal pain on the right side of her ostomy. She reports her pain is about the same as when she came into the hospital. She's had no nausea or vomiting. She is on a regular diet. She is afebrile. WBC 4.9 hemoglobin 11 sodium 135 potassium 3.9 creatinine 0.65 stool for C. diff was negative PHYSICAL EXAM: VITAL SIGNS: Reviewed. GENERAL: Well-developed in no acute distress. HEENT: No sclera icterus. Extraocular movements grossly intact. Moist buccal mucosa. Head is atraumatic, normocephalic. ABDOMEN: Soft. Nondistended. Tenderness with palpation of the right side of the abdomen NEUROLOGIC: Alert and oriented. Cranial nerves II through XII grossly intact. ASSESSMENT: 1. Generalized abdominal pain with ileus 2. Recent descending end colostomy for diverticulitis 3. History of gastric bypass 4. Abdominal gas bloat 5. Dehydration with acute kidney injury 6. Colostomy status 7. Hyponatremia PLAN: -Continue lactulose -Encourage patient to ambulate -Continue to monitor ostomy output -Continue heart healthy diet Physician Terrazzo Roller note has been reviewed by physician. Signing provider agrees with the documented findings, assessment, and plan of care. Objective - Vital Signs Vital signs: Vital Signs Temp 98.4 F 08/29/20 07:00 Pulse 76 08/29/20 12:39 Resp 16 08/29/20 12:39 BP 164/76 08/29/20 07:00 Pulse Ox 97 08/29/20 07:00 Intake & Output 08/28/20 08/29/20 08/29/20 18:59 06:59 18:59 Intake Total 820 Balance 820 Intake: Oral 820 Other: Voiding Method Toilet Toilet Toilet # Voids 1 1 - Labs CBC & Chem 7: 08/29/20 11:01 08/29/20 11:01 Labs: Abnormal Lab Results - Last 24 Hours (Table) 08/29/20 08/29/20 Range/Units 11:01 11:01 Hgb 11.0 L (11.4-16.0) gm/dL Sodium 135 L (137-145) mmol/L Chloride 109 H (98-107) mmol/L
[2020-08-29] MEDS: QUEtiapine 25 MG TAB PO SCH (20:06)
[2020-08-30] MEDS: HYDROcodone/APAP 10-325MG 1 EACH TAB PO SCH ×3 (00:08→11:07)
[2020-08-30] MEDS: LEVOTHYROXINE 100 MCG TAB PO SCH (05:39)
[2020-08-30 07:30] VITALS: BP 120/59; PULSE 78; RESP 18; TEMP 98.1
[2020-08-30] MEDS: PANTOPRAZOLE 40 MG TABLET PO SCH (08:40)
[2020-08-30] MEDS: LACTULOSE 20 GM/30 ML CUP PO SCH (08:40)
[2020-08-30] MEDS ORDERED: ONDANSETRON 4 MG TAB PO PRN (10:49)
--- NOTE | 2020-08-30 13:13 | P.PN ---
Subjective Progress Note Date: 08/30/20 CHIEF COMPLAINT: Abdominal pain HISTORY OF PRESENT ILLNESS: Surgical service is following regards to patient's ileus. She was started on lactulose. Patient has had improvement in her stool output through her ostomy. Last night she had 2 episodes of vomiting. She complains of some mild abdominal pain on the right side of her ostomy. This morning she does have nausea but improved with the Zofran. She was able to eat her oatmeal. She does have a small chronic ulcer in her umbilicus. No significant drainage or redness noted. Patient is afebrile. White count 4.9 hemoglobin 11. Patient seen and examined with Dr. atkins PHYSICAL EXAM: VITAL SIGNS: Reviewed. GENERAL: Well-developed in no acute distress. HEENT: No sclera icterus. Extraocular movements grossly intact. Moist buccal mucosa. Head is atraumatic, normocephalic. ABDOMEN: Soft. Nondistended. Tenderness with palpation of the right side of the abdomen. Chronic ulcer of the umbilicus NEUROLOGIC: Alert and oriented. Cranial nerves II through XII grossly intact. ASSESSMENT: 1. Generalized abdominal pain with ileus 2. Recent descending end colostomy for diverticulitis 3. History of gastric bypass 4. Abdominal gas bloat 5. Dehydration with acute kidney injury 6. Colostomy status 7. Hyponatremia PLAN: -Patient is stable for discharge from surgical standpoint. We'll have her follow up in the office in one week. -Continue lactulose and stool softner -Encourage patient to ambulate -Continue heart healthy diet Physician Brick Burner Head note has been reviewed by physician. Signing provider agrees with the documented findings, assessment, and plan of care. Overall Mauro discharge will will start her Admitted to have elevated will follow a bagel or something that is is Objective - Vital Signs Vital signs: Vital Signs Temp 98.1 F 08/30/20 07:00 Pulse 78 08/30/20 07:00 Resp 18 08/30/20 07:00 BP 120/59 08/30/20 07:00 Pulse Ox 98 08/30/20 07:00 Intake & Output 08/29/20 08/30/20 08/30/20 18:59 06:59 18:59 Other: Voiding Method Toilet Toilet # Voids 2 2 # Bowel Movements 1 - Labs CBC & Chem 7: 08/29/20 11:01 08/29/20 11:01
--- NOTE | 2020-09-01 09:30 | P.DS ---
Providers Date of admission: 08/29/20 14:53 Expected date of discharge: 08/30/20 Attending physician: Compa Medina Consults: 08/26/20 22:58 Consult Physician Urgent Consulting Provider: Phil Burt Consult Reason/Comments: abd pain with colostomy Do you want consulting provider notified?: Yes Primary care physician: Courtney Cook Hospital Course: Final diagnosis -Abdominal pain possible ileus -Nausea vomiting diarrhea. -Acute renal failure: Secondary to intravascular depletion and prerenal azotemia from diarrhea nausea vomiting -Hypervolemic hyponatremia -Coronary artery disease -Gastroesophageal reflux disease -Hypertension -DVT prophylaxis with Lovenox -Depression Discharge disposition Patient is being discharged in a stable condition with guarded prognosis to home . Patient will [facility] with [facility] in the outpatient setting. Patient will follow-up with Dr. Valdez in the outpatient setting upon discharge. Patient is to follow up with surgery in one week. Total time taken is greater than 35 minutes. Hospital course 74-year-old female came in with the nausea vomiting and and crit increased urine output from the colostomy. Patient had bowel resection with a colostomy bag that was done on 07/10/2020 at the time medications. Patient had a computed tomography scan of the abdomen which did not show any significant abnormality. Patient although has acute renal failure with creatinine going up to 1.61 and patient was hyponatremic as well. Patient is admitted for dehydration. Patient the probably has acute gastroenteritis. Patient is still complaining of crampy abdominal pain in the mid abdominal area and apical area and patient is concerned that she may have purulent discharge from theumbilicus area. Patient with has recently seen her surgeon who started her on the antibiotics about a week ago as he had concerns for colitis. 08/28/2020 Patient doesn't have any significant output in the colostomy bag today because o f which there is concern for ileus which is being managed by general surgery. Patient still has mild tenderness 08/29/2020 Patient is seen and evaluated in follow-up continues to have minimal output noted in the colostomy and also had an episode of vomiting this morning. Surgery is following. Patient is maintained on heart healthy diet and will continue with as needed Zofran and monitor closely. Basic metabolic panel shows a sodium of 135 with a potassium 3.9 and current creatinine is 0.65 and magnesium is 1.8. White blood count is 4.9 and hemoglobin is stable 11.0 with no bleeding noted. Patient did Have C. diff testing which was negative. Will continue with bowel regimen and monitor for increased out put in the ostomy. 08/30/2020 Patient is feeling nauseous at times with no vomiting and does have increased output noted in the ostomy and states she would like to go home. Patient instructed to follow-up with surgery Dr. Burt in one week. Patient was started on lactulose and will continue with twice a day as needed for constipation and instructed to hold if having increasing loose stools. Encouraged oral intake and was also given a prescription for Zofran as needed for nausea. Currently no reports of chest pain, shortness of breath, or palpitations. Patient is afebrile. No reports of nausea or vomiting and patient is tolerating diet. Patient will be discharged home today. On exam vital signs are stable. Cardio S1, S2 are muffled. Respiratory system shows diminished breath sounds at the bases with no wheezing or rhonchi noted. Abdomen is soft and nontender. Nervous system shows no focal deficits. Please refer to medication reconciliation sheet for a list of medications. Patient Condition at Discharge: Fair Plan - Discharge Summary Discharge Rx Participant: No New Discharge Prescriptions: New Ondansetron Odt [Zofran Odt] 4 mg PO Q8HR PRN #10 tab PRN Reason: Nausea Lactulose [Cephulac] 20 gm PO BID PRN #300 ml PRN Reason: Constipation Continue Levothyroxine Sodium [Synthroid] 200 mcg PO DAILY HYDROcodone/APAP 10-325MG [[place] 10-325] 1 tab PO Q6H lisinopriL 40 mg PO DAILY Pantoprazole [Protonix] 40 mg PO DAILY QUEtiapine FUMARATE [SEROquel] 25 mg PO HS Morphine Sulfate ER [Ms Contin] 15 mg PO Q12HR PRN PRN Reason: Pain Discharge Medication List Levothyroxine Sodium [Synthroid] 200 mcg PO DAILY 01/12/19 [History] Pantoprazole [Protonix] 40 mg PO DAILY 07/09/20 [History] lisinopriL 40 mg PO DAILY 07/09/20 [History] HYDROcodone/APAP 10-325MG [[place] 10-325] 1 tab PO Q6H 08/26/20 [History] Morphine Sulfate ER [Ms Contin] 15 mg PO Q12HR PRN 08/26/20 [History] QUEtiapine FUMARATE [SEROquel] 25 mg PO HS 08/26/20 [History] Lactulose [Cephulac] 20 gm PO BID PRN #300 ml 08/29/20 [Rx] Ondansetron Odt [Zofran Odt] 4 mg PO Q8HR PRN #10 tab 08/29/20 [Rx] Follow up Appointment(s)/Referral(s): Joey Valdez MD [Primary Care Provider] - 1-2 days [facility], [NON-STAFF] - 1-2 Days Phil Burt MD [STAFF PHYSICIAN] - 1 Week Activity/Diet/Wound Care/Special Instructions: Activity Limited until follow-up Follow-up with primary care provider upon discharge Continue current diet Follow-up with surgery outpatient Continue with lactulose twice daily as needed for constipation and hold for increased ostomy output Use Zofran as needed for nausea Continue with bowel regimen and monitor output Discharge Disposition: HOME WITH HOME HEALTH SERVICES
== END 2020-08-30 13:18 | disposition home health service (06) | DRG 389 ==
LOC: EC 18:56 → 6NMEDSUR 22:51 → OBSVTOIN 08-29 14:53
PROVIDERS: ADMIT Hospitalist; ATTEND Hospitalist
DX: K56.0 Paralytic ileus (principal); N17.9 Acute kidney failure, unspecified; E87.1 Hypo-osmolality and hyponatremia; Z43.3 Encounter for attention to colostomy; I48.91 Unspecified atrial fibrillation; E86.0 Dehydration; Z20.822 Contact with and (suspected) exposure to COVID-19; E87.70 Fluid overload, unspecified; I25.10 Atherosclerotic heart disease of native coronary artery without angina pectoris; I10 Essential (primary) hypertension; F32.9 Major depressive disorder, single episode, unspecified; F41.0 Panic disorder [episodic paroxysmal anxiety]; K21.9 Gastro-esophageal reflux disease without esophagitis; G89.29 Other chronic pain; M54.5 Low back pain; M19.90 Unspecified osteoarthritis, unspecified site; Z79.890 Hormone replacement therapy; Z98.84 Bariatric surgery status; Z79.899 Other long term (current) drug therapy; Z90.49 Acquired absence of other specified parts of digestive tract; Z87.19 Personal history of other diseases of the digestive system; Z87.11 Personal history of peptic ulcer disease; Z85.21 Personal history of malignant neoplasm of larynx; Z98.42 Cataract extraction status, left eye; Z98.41 Cataract extraction status, right eye; Z86.14 Personal history of Methicillin resistant Staphylococcus aureus infection; Z87.820 Personal history of traumatic brain injury; Z86.69 Personal history of other diseases of the nervous system and sense organs; Z90.710 Acquired absence of both cervix and uterus; Z87.42 Personal history of other diseases of the female genital tract; Z87.39 Personal history of other diseases of the musculoskeletal system and connective tissue; Z87.891 Personal history of nicotine dependence; Z96.653 Presence of artificial knee joint, bilateral; Z98.890 Other specified postprocedural states; Z88.1 Allergy status to other antibiotic agents; Z83.3 Family history of diabetes mellitus; Z82.49 Family history of ischemic heart disease and other diseases of the circulatory system
CPT/HCPCS: 36415; 74176; 80048; 80053; 81001; 82150; 83605; 83690; 83735; 85025; 85027; 85610; 85730; 87324; 87635; 96374; 99285

== ENCOUNTER 2020-09-14 21:22 | Inpatient (IN) | payer MEDICARE ==
[2020-09-14] MEDS ORDERED: SODIUM CHLORIDE 0.9% 500 ML 500 ML IV STA (21:28)
[2020-09-14] MEDS ORDERED: SODIUM CHLORIDE 0.9% 1,000 ML IV STA (21:28)
[2020-09-14] MEDS ORDERED: MORPHINE SULFATE 4 MG/ML SYRINGE IV STA (21:28)
[2020-09-14] MEDS ORDERED: PANTOPRAZOLE 40 MG/10 ML VIAL IVP STA (21:29)
[2020-09-14] MEDS ORDERED: LORazepam 2 MG/ML INJ IV STA (21:29)
--- NOTE | 2020-09-14 21:49 | ED ---
Nausea/Vomiting/Diarrhea HPI - General Stated complaint: vomiting Time Seen by Provider: 09/14/20 21:25 Source: patient, EMS, RN notes reviewed, old records reviewed Limitations: no limitations - History of Present Illness Initial comments: This is a 74-year-old female DF for evaluation severe abdominal pain history of multiple abdominal surgeries without fever. Unable to keep anything down patient is in mild distress secondary to symptoms. MD complaint: nausea, vomiting, abdominal pain -: hour(s) Location: diffuse Radiation: none Severity: moderate Severity scale (1-10): 6 Quality: stabbing, aching Consistency: constant Improves with: none Worsens with: none Context: history of abdominal surgery Associated Symptoms: myalgias, loss of appetite, nausea/vomiting, weakness - Related Data Home Medications Medication Instructions Recorded Confirmed Levothyroxine Sodium [Synthroid] 200 mcg PO DAILY 01/12/19 09/14/20 Mupirocin [Mupirocin 2%] 1 applic TOPICAL BID 09/14/20 09/14/20 Previous Rx's Medication Instructions Recorded Lactulose [Cephulac] 20 gm PO BID PRN #300 ml 09/23/20 Lidocaine Viscous [Xylocaine 30 ml PO QID PRN #200 ml 09/23/20 Viscous 2%] Ondansetron Odt [Zofran ODT] 4 mg PO Q8HR PRN #10 tab 09/23/20 Acetaminophen Tab [Tylenol] 650 mg PO Q4HR PRN tab 09/26/20 HYDROcodone/APAP 10-325MG [[place] 1 tab PO Q6H #12 tab 09/26/20 10-325] Mag Hydrox/Al Hydrox/Simeth 30 ml PO QID PRN #300 ml 09/26/20 [Maalox] Morphine Sulfate ER [Ms Contin] 15 mg PO Q12HR PRN #12 tab 09/26/20 Pantoprazole [Protonix] 40 mg PO DAILY 30 Days #30 tab 09/26/20 QUEtiapine FUMARATE [SEROquel] 25 mg PO HS 30 Days #30 tab 09/26/20 lisinopriL 40 mg PO DAILY 30 Days #30 tab 09/26/20 Allergies Allergy/AdvReac Type Severity Reaction Status Date / Time latex Allergy Unknown Verified 09/24/20 05:28 vancomycin Allergy Rash/Hives Verified 09/14/20 22:22 Review of Systems ROS Statement: Those systems with pertinent positive or pertinent negative responses have been documented in the HPI. ROS Other: All systems not noted in ROS Statement are negative. 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 History of Any Multi-Drug Resistant Organisms: None Reported, MRSA Date of last positivie culture/infection: 1997 MDRO Source:: left shoulder Past Surgical History: Bariatric Surgery, Cholecystectomy, Heart Catheterization, Hysterectomy, Joint Replacement, Orthopedic Surgery Additional Past Surgical History / Comment(s): Bilateral knee replacement, left shoulder rotator cuff surgery, gastric bypass, D&C, EGD/colonoscopy, laryngeal tumor removed, Ganglion Cysts both wrists.PAIN CLINIC INJECTIONS, Past Anesthesia/Blood Transfusion Reactions: No Reported Reaction Date of Last Stent Placement:: 2012 Past Psychological History: Anxiety, Depression, Panic Disorder Smoking Status: Never smoker Past Alcohol Use History: None Reported Past Drug Use History: None Reported - Past Family History Mother Family Medical History: Cancer, Congestive Heart Failure (CHF), Diabetes Mellitus, Hypertension Additional Family Medical History / Comment(s): Mother passed at 93. Father Family Medical History: Myocardial Infarction (ND) Additional Family Medical History / Comment(s): Father of a ND at the age of 39 yrs. Sister(s) Family Medical History: Cancer Brother(s) Family Medical History: Cancer, Myocardial Infarction (ND) General Exam General appearance: alert, in no apparent distress Head exam: Present: atraumatic, normocephalic, normal inspection Eye exam: Present: normal appearance, PERRL, EOMI. Absent: scleral icterus, conjunctival injection, periorbital swelling ENT exam: Present: normal exam, mucous membranes moist Neck exam: Present: normal inspection. Absent: tenderness, meningismus, lymphadenopathy Respiratory exam: Present: normal lung sounds bilaterally. Absent: respiratory distress, wheezes, rales, rhonchi, stridor Cardiovascular Exam: Present: regular rate, normal rhythm, normal heart sounds. Absent: systolic murmur, diastolic murmur, rubs, gallop, clicks GI/Abdominal exam: Present: soft, distended, tenderness, normal bowel sounds. Absent: guarding, rebound, rigid Extremities exam: Present: normal inspection, full ROM, normal capillary refill. Absent: tenderness, pedal edema, joint swelling, calf tenderness Back exam: Present: normal inspection Neurological exam: Present: alert, oriented X3, CN II-XII intact Psychiatric exam: Present: normal affect, normal mood Skin exam: Present: warm, dry, intact, normal color. Absent: rash Course Vital Signs 09/14/20 09/14/20 09/14/20 21:23 22:36 23:47 Temperature 98.3 F Pulse Rate 104 H 97 81 Respiratory 20 24 18 Rate Blood Pressure 186/104 112/76 144/76 O2 Sat by Pulse 99 97 97 Oximetry - Reevaluation(s) Reevaluation #1: Medical record is reviewed Patient symptoms significantly improved here in the ER Patient informed results questions answered Medical Decision Making - Lab Data Result diagrams: 09/26/20 05:32 09/26/20 05:32 Lab Results 09/14/20 09/14/20 09/14/20 Range/Units 21:49 21:49 21:49 WBC 8.3 (3.8-10.6) k/uL RBC 4.19 (3.80-5.40) m/uL Hgb 12.6 (11.4-16.0) gm/dL Hct 37.3 (34.0-46.0) % MCV 88.9 (80.0-100.0) fL MCH 30.0 (25.0-35.0) pg MCHC 33.8 (31.0-37.0) g/dL RDW 15.7 H (11.5-15.5) % Plt Count 269 (150-450) k/uL MPV 8.2 Neutrophils % 35 % Lymphocytes % 54 % Monocytes % 7 % Eosinophils % 2 % Basophils % 1 % Neutrophils # 2.9 (1.3-7.7) k/uL Lymphocytes # 4.5 (1.0-4.8) k/uL Monocytes # 0.6 (0-1.0) k/uL Eosinophils # 0.1 (0-0.7) k/uL Basophils # 0.1 (0-0.2) k/uL PT 12.6 H (9.0-12.0) sec INR 1.2 H (<1.2) APTT 23.4 (22.0-30.0) sec Sodium 138 (137-145) mmol/L Potassium 5.1 (3.5-5.1) mmol/L Chloride 110 H (98-107) mmol/L Carbon Dioxide 17 L (22-30) mmol/L Anion Gap 11 mmol/L BUN 6 L (7-17) mg/dL Creatinine 0.56 (0.52-1.04) mg/dL Est GFR (CKD-EPI)AfAm >90 (>60 ml/min/1.73 sqM) Est GFR (CKD-EPI)NonAf >90 (>60 ml/min/1.73 sqM) Glucose 103 H (74-99) mg/dL Lactic Ac Sepsis Rflx Plasma Lactic Acid Anthony (0.7-2.0) mmol/L Calcium 8.7 (8.4-10.2) mg/dL Phosphorus 3.2 (2.5-4.5) mg/dL Magnesium 1.5 L (1.6-2.3) mg/dL Total Bilirubin 0.9 (0.2-1.3) mg/dL AST 57 H (14-36) U/L ALT 17 (4-34) U/L Alkaline Phosphatase 100 (38-126) U/L Creatine Kinase 80 (30-135) U/L Troponin I (0.000-0.034) ng/mL Total Protein 6.6 (6.3-8.2) g/dL Albumin 3.4 L (3.5-5.0) g/dL 09/14/20 09/14/20 09/14/20 Range/Units 21:49 21:49 22:34 WBC (3.8-10.6) k/uL RBC (3.80-5.40) m/uL Hgb (11.4-16.0) gm/dL Hct (34.0-46.0) % MCV (80.0-100.0) fL MCH (25.0-35.0) pg MCHC (31.0-37.0) g/dL RDW (11.5-15.5) % Plt Count (150-450) k/uL MPV Neutrophils % % Lymphocytes % % Monocytes % % Eosinophils % % Basophils % % Neutrophils # (1.3-7.7) k/uL Lymphocytes # (1.0-4.8) k/uL Monocytes # (0-1.0) k/uL Eosinophils # (0-0.7) k/uL Basophils # (0-0.2) k/uL PT (9.0-12.0) sec INR (<1.2) APTT (22.0-30.0) sec Sodium (137-145) mmol/L Potassium (3.5-5.1) mmol/L Chloride (98-107) mmol/L Carbon Dioxide (22-30) mmol/L Anion Gap mmol/L BUN (7-17) mg/dL Creatinine (0.52-1.04) mg/dL Est GFR (CKD-EPI)AfAm (>60 ml/min/1.73 sqM) Est GFR (CKD-EPI)NonAf (>60 ml/min/1.73 sqM) Glucose (74-99) mg/dL Lactic Ac Sepsis Rflx Y Plasma Lactic Acid Anthony 4.4 H* (0.7-2.0) mmol/L Calcium (8.4-10.2) mg/dL Phosphorus (2.5-4.5) mg/dL Magnesium (1.6-2.3) mg/dL Total Bilirubin (0.2-1.3) mg/dL AST (14-36) U/L ALT (4-34) U/L Alkaline Phosphatase (38-126) U/L Creatine Kinase (30-135) U/L Troponin I 0.015 (0.000-0.034) ng/mL Total Protein (6.3-8.2) g/dL Albumin (3.5-5.0) g/dL - EKG Data -: EKG Interpreted by Me (EKG shows sinus tachycardia 108 [place] 176 QRS 154 QTc 562) Disposition Clinical Impression: H/O gastric bypass, Chronic pain syndrome, Nausea & vomiting, Abdominal pain Disposition: ADMITTED IP TO THIS HOSP Condition: Fair Is patient prescribed a controlled substance at d/c from ED?: No
[2020-09-14 21:59] LABS: Basophils # (A) 0.1 k/uL (0-0.2); Basophils % (A) 1 %; Eosinophils # (A) 0.1 k/uL (0-0.7); Eosinophils % (A) 2 %; HCT 37.3 % (34.0-46.0); HGB 12.6 gm/dL (11.4-16.0); Lymphocytes # (A) 4.5 k/uL (1.0-4.8); Lymphocytes % (A) 54 %; MCHC 33.8 g/dL (31.0-37.0); MCV 88.9 fL (80.0-100.0); Mean Platelet Volume 8.2; Monocytes # (A) 0.6 k/uL (0-1.0); Monocytes % (A) 7 %; Neutrophils # (A) 2.9 k/uL (1.3-7.7); Neutrophils % (A) 35 %; Platelet Count 269 k/uL (150-450); RBC 4.19 m/uL (3.80-5.40); RDW 15.7 % (11.5-15.5); WBC 8.3 k/uL (3.8-10.6)
[2020-09-14] MEDS ORDERED: HYDROmorphone 0.5 MG/0.5 ML SYRINGE IVP STA (22:04)
[2020-09-14 22:11] LABS: INR 1.2 (<1.2); Partial Thromboplastin Time 23.4 sec (22.0-30.0); Prothrombin Time 12.6 sec (9.0-12.0)
[2020-09-14 22:25] LABS: ALT 17 U/L (4-34); African American GFR (CKD) >90 (>60 ml/min/1.73 sqM); Anion Gap 11 mmol/L; Blood Urea Nitrogen 6 mg/dL (7-17); Calcium 8.7 mg/dL (8.4-10.2); Carbon Dioxide 17 mmol/L (22-30); Chloride 110 mmol/L (98-107); Glucose 103 mg/dL (74-99); Non-African American GFR(CKD) >90 (>60 ml/min/1.73 sqM); Sodium 138 mmol/L (137-145)
[2020-09-14 22:34] LABS: Albumin 3.4 g/dL (3.5-5.0); Magnesium 1.5 mg/dL (1.6-2.3); Phosphorus 3.2 mg/dL (2.5-4.5); Potassium 5.1 mmol/L (3.5-5.1); Total Bilirubin 0.9 mg/dL (0.2-1.3); Total Protein 6.6 g/dL (6.3-8.2)
[2020-09-14 22:35] LABS: AST 57 U/L (14-36); Alkaline Phosphatase 100 U/L (38-126); Creatine Kinase 80 U/L (30-135)
--- NOTE | 2020-09-14 22:35 | XR ---
EXAMINATION TYPE: XR chest 1V portable DATE OF EXAM: 09/14/2020 COMPARISON: 07/11/2020 HISTORY: Check tube placement TECHNIQUE: Single view FINDINGS: There is nasogastric tube which has the tip probably in the gastric antrum. There is no hea rt failure nor confluent pneumonic infiltrate. Thoracic aorta is atheromatous. There is left shoulder prosthesis. IMPRESSION: No active cardiopulmonary disease. There is clearing of atelectasis in both lung herrera c ompared to old exam.
[2020-09-14] MEDS ORDERED: NALOXONE 0.4 MG/ML 1 ML VIAL IV PRN (23:22)
[2020-09-14] MEDS ORDERED: LORazepam 2 MG/ML INJ IV PRN (23:23)
--- NOTE | 2020-09-14 23:34 | CT ---
EXAMINATION TYPE: CT abdomen pelvis w con DATE OF EXAM: 09/14/2020 COMPARISON: 08/26/2020 HISTORY: Abd Pain CT DLP: 1258.50 mGycm Automated exposure control for dose reduction was used. CONTRAST: Performed with IV Contrast, patient injected with 100 mL of Isovue 300. Lung bases are clear of consolidation. There is mild subsegmental atelectasis. There is nasogastric t ube in the stomach. There is previous gastric bariatric surgery. There is no evidence of pancreatic m ass. Spleen is intact. The liver is intact. There is 5 mm nodule lateral right lung base unchanged. There is no adrenal mass. Kidneys show satisfactory contrast opacification. There is no hydronephrosi s. Delayed images show normal renal excretion. There is midline ventral hernia containing omental fat and measures 3 cm. There is left side colostomy. There is no retroperitoneal adenopathy. Bladder dis tends smoothly. There is no inguinal hernia. There is no free fluid in the pelvis. There is no mesenteric edema. There is no ascites or free air. There is no bowel obstruction. Appendi x is not seen. There is no sign of thickened appendix. Abdominal aorta is atheromatous. There is a first-degree L4-5 spondylolisthesis. There is a mild L2-3 retrolisthesis. There is some sp inal stenosis at L4-5 due to subluxation deformity and facet arthropathy. There is no compression fra cture. The hip joints are intact. Bony pelvis is intact. Sacroiliac joints are intact. IMPRESSION: Previous surgeries. No sign of acute abdomen and pelvis. No adverse change compared to old exam.
[2020-09-15] MEDS: DEXTROSE 5%-0.45% NACL 1,000 ML IV SCH ×3 (00:45→23:26)
[2020-09-15 03:29] LABS: Appearance,Urine Clear (Clear); Bilirubin,Urine Negative (Negative); Blood,Urine Negative (Negative); Color,Urine Light Yellow; Glucose,Urine (UA) Negative (Negative); Ketones,Urine Negative (Negative); Protein,Urine Negative (Negative)
[2020-09-15 03:30] LABS: Leukocyte Esterase,Urine Moderate (Negative); Nitrite,Urine Negative (Negative); Urobilinogen,Urine <2.0 mg/dL (<2.0)
[2020-09-15 03:36] LABS: Bacteria,Urine Rare /hpf; RBC,Urine <1 /hpf (0-5); Squamous Epithelial Cell,Urine <1 /hpf (0-4); WBC,Urine 1 /hpf (0-5)
[2020-09-15 04:18] LABS: Basophils % (A) 1 %; Eosinophils # (A) 0.1 k/uL (0-0.7); Eosinophils % (A) 2 %; HCT 31.7 % (34.0-46.0); HGB 10.6 gm/dL (11.4-16.0); Lymphocytes # (A) 3.1 k/uL (1.0-4.8); Lymphocytes % (A) 46 %; MCH 29.9 pg (25.0-35.0); MCHC 33.5 g/dL (31.0-37.0); Mean Platelet Volume 7.9; Monocytes # (A) 0.7 k/uL (0-1.0); Monocytes % (A) 10 %; Neutrophils # (A) 2.6 k/uL (1.3-7.7); Neutrophils % (A) 39 %; Platelet Count 227 k/uL (150-450); RBC 3.56 m/uL (3.80-5.40); RDW 15.7 % (11.5-15.5); WBC 6.8 k/uL (3.8-10.6)
[2020-09-15 04:33] LABS: ALT 12 U/L (4-34); AST 29 U/L (14-36); African American GFR (CKD) >90 (>60 ml/min/1.73 sqM); Albumin 2.6 g/dL (3.5-5.0); Alkaline Phosphatase 92 U/L (38-126); Anion Gap 3 mmol/L; Blood Urea Nitrogen 5 mg/dL (7-17); Calcium 8.2 mg/dL (8.4-10.2); Carbon Dioxide 25 mmol/L (22-30); Chloride 110 mmol/L (98-107); Glucose 89 mg/dL (74-99); Lipase 72 U/L (23-300); Magnesium 1.4 mg/dL (1.6-2.3); Non-African American GFR(CKD) >90 (>60 ml/min/1.73 sqM); Phosphorus 3.8 mg/dL (2.5-4.5); Potassium 4.4 mmol/L (3.5-5.1); Sodium 138 mmol/L (137-145); Total Bilirubin 0.4 mg/dL (0.2-1.3); Total Protein 5.2 g/dL (6.3-8.2)
[2020-09-15] MEDS: HYDROmorphone 1 MG/ML 1 ML SYRINGE IVP PRN ×5 (07:11→20:30)
[2020-09-15] MEDS: PANTOPRAZOLE 40 MG/10 ML VIAL IV SCH (07:11)
--- NOTE | 2020-09-15 08:13 | XR ---
EXAMINATION TYPE: XR chest 1V portable DATE OF EXAM: 09/15/2020 CLINICAL HISTORY: Difficulty breathing progress study. NG tube placement. TECHNIQUE: Single AP portable upright view of the chest is obtained. COMPARISON: Chest x-ray from one day earlier and older studies. FINDINGS: Stable appearance of nasogastric tube projecting below diaphragm. Chronic parenchymal changes without new focal airspace opacity, pleural effusion, or pneumothorax see n bilaterally. Stable mild cardiomegaly with atherosclerotic thoracic aorta. Cholecystectomy clips ar e redemonstrated. Surgical change left humeral head redemonstrated. Degenerative change right glenohu meral joint redemonstrated. IMPRESSION: Overall stable findings, no acute pulmonary process.
[2020-09-15] MEDS ORDERED: Magnesium Replacement Protocol 1 EACH MISC MISCELLANE PRN (09:06)
[2020-09-15] MEDS: MAGNESIUM SULFATE-D5W PMX 1 GM in DEXTROSE/WATER 1 100ML.BAG IVPB SCH ×3 (10:07→14:00)
[2020-09-15] MEDS ORDERED: LACTULOSE 20 GM/30 ML CUP PO PRN (10:53)
[2020-09-15] MEDS: LEVOTHYROXINE 100 MCG TAB PO SCH (12:26)
[2020-09-15] MEDS: IOPAMIDOL CONTRAST (ORAL USE) VIAL PO PRN ×2 (13:05→14:00)
[2020-09-15 13:28] VITALS: BMI 31.8
--- NOTE | 2020-09-15 13:42 | P.GSCN ---
History of Present Illness Consult date: 09/15/20 History of present illness: CHIEF COMPLAINT: Nausea and vomiting HISTORY OF PRESENT ILLNESS: This is a 74-year-old female with a known past medical history of diverticulitis with mesenteric abscess and adhesions causing a partial small bowel obstruction she had sigmoid colectomy with end colostomy and lysis of adhesions on 07/10/[address] atkins. Patient has a known history of constipation, atrial fibrillation, coronary disease, peptic ulcer disease, laryngeal cancer status post treatment. She has surgical history of gastric bypass over 20 years ago, cholecystectomy and hysterectomy. Patient presents to the hospital with a 2 day history of nausea and vomiting. She reports that some of her emesis did contain fecal material and a small amount of blood. Patient reports that she has been having stool through her ostomy. She did complain of abdominal pain in the mid abdomen area. She has NG tube in place with 0 output. Computed tomography scan of the abdomen and pelvis with IV contrast shows no sign of acute abdomen and pelvis. No adverse change compared to old exam. There is a midline ventral hernia containing omental fat and measuring 3 cm. Surgical service was consulted regards to patient's nausea and vomiting. Patient denies any fever, chills or sweats. PAST MEDICAL HISTORY: See list. PAST SURGICAL HISTORY: See list. MEDICATIONS: See list. ALLERGIES: See list. SOCIAL HISTORY: No illicit drug use. REVIEW OF SYSTEMS: CONSTITUTIONAL: Denies fever or chills. HEENT: Denies blurred vision, vision changes, or eye pain. Denies hemoptysis CARDIOVASCULAR: Denies chest pain or pressure. RESPIRATORY: No shortness of breath. GASTROINTESTINAL: See HPI for pertinent findings HEMATOLOGIC: Denies bleeding disorders. GENITOURINARY: Denies any blood in urine or increased urinary frequency. SKIN: Denies pruitis. Denies rash. PHYSICAL EXAM: VITAL SIGNS: Reviewed GENERAL: Well-developed in no acute distress. HEENT: No sclera icterus. Extraocular movements grossly intact. Moist buccal mucosa. Head is atraumatic, normocephalic. No nasal drainage. ABDOMEN: Soft. Nondistended. Tenderness with palpation of the mid abdomen. No stool in her ostomy bag at this time. Old mid incisional scar. Middle of incision does have a old chronic wound with minimal drainage. No evidence of infection. Ostomy is on the left. NEUROLOGIC: Alert and oriented. Cranial nerves II through XII grossly intact. LABORATORY DATA: WBC [age]-year-old woman 10.6 platelets are 222 sodium is 138 potassium is 4.4 creatinine is 0.60 lactic acid has gone down from 4.2-0.7 Magnesium is 1.4 LFTs normal lipase normal UA evidence of infection COVID-19 not detected IMAGING: computed tomography scan of the abdomen and pelvis with IV contrast shows no sign of acute abdomen and pelvis. No adverse change compared to old exam. There is a midline ventral hernia containing omental fat and measuring 3 cm. ASSESSMENT: 1. Abdominal pain with nausea and vomiting 2. History of diverticulitis with mesenteric abscess and adhesions causing a p artial small bowel obstruction she is status post sigmoid colectomy with end colostomy and lysis of adhesions on 07/10/2020 PLAN: -We'll repeat a computed tomography scan of the abdomen and pelvis with oral contrast for further evaluation of patient's abdominal pain and vomiting -Continue IV fluids -Continue pain medication as needed -Replace magnesium Thank you for this consultation Physician Manager Proposal note has been reviewed by physician. Signing provider agrees with the documented findings, assessment, and plan of care. 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 History of Any Multi-Drug Resistant Organisms: None Reported, MRSA Year Discovered:: 1997 MDRO Source:: left shoulder Past Surgical History: Bariatric Surgery, Cholecystectomy, Heart Catheterization, Hysterectomy, Joint Replacement, Orthopedic Surgery Additional Past Surgical History / Comment(s): Bilateral knee replacement, left shoulder rotator cuff surgery, gastric bypass, D&C, EGD/colonoscopy, laryngeal tumor removed, Ganglion Cysts both wrists.PAIN CLINIC INJECTIONS, colostomy Past Anesthesia/Blood Transfusion Reactions: No Reported Reaction Date of Last Stent Placement:: 2012 Past Psychological History: Anxiety, Depression, Panic Disorder Additional Psychological History / Comment(s): pt is curently staying with her son since recent discharge from hospital otherwise lives [place]. currently has vna and visiting physician fely tsang Smoking Status: Never smoker Past Alcohol Use History: None Reported Additional Past Alcohol Use History / Comment(s): Pt started smoking in 1959 and quit in 1980, 1ppd. Past Drug Use History: None Reported - Past Family History Mother Family Medical History: Cancer, Congestive Heart Failure (CHF), Diabetes Mellitus, Hypertension Additional Family Medical History / Comment(s): Mother passed at 93. Father Family Medical History: Myocardial Infarction (NV) Additional Family Medical History / Comment(s): Father of a NV at the age of 39 yrs. Sister(s) Family Medical History: Cancer Brother(s) Family Medical History: Cancer, Myocardial Infarction (NV) Medications and Allergies Home Medications Medication Instructions Recorded Confirmed Type Levothyroxine Sodium [Synthroid] 200 mcg PO DAILY 01/12/19 09/14/20 History Pantoprazole [Protonix] 40 mg PO DAILY 07/09/20 09/14/20 History lisinopriL 40 mg PO DAILY 07/09/20 09/14/20 History HYDROcodone/APAP 10-325MG [[place] 1 tab PO Q6H 08/26/20 09/14/20 History 10-325] Morphine Sulfate ER [Ms Contin] 15 mg PO Q12HR PRN 08/26/20 09/14/20 History QUEtiapine FUMARATE [SEROquel] 25 mg PO HS 08/26/20 09/14/20 History Lactulose [Cephulac] 20 gm PO BID PRN #300 ml 08/29/20 09/14/20 Rx Ondansetron Odt [Zofran Odt] 4 mg PO Q8HR PRN #10 tab 08/29/20 09/14/20 Rx Cephalexin [Keflex] 500 mg PO BID 09/14/20 09/14/20 History Mupirocin [Mupirocin 2%] 1 applic TOPICAL BID 09/14/20 09/14/20 History Allergies Allergy/AdvReac Type Severity Reaction Status Date / Time vancomycin Allergy Rash/Hives Verified 09/14/20 22:22 Surgical - Exam Vital Signs Temp Pulse Resp BP Pulse Ox 98.3 F 104 H 20 186/104 99 09/14/20 21:23 09/14/20 21:23 09/14/20 21:23 09/14/20 21:23 09/14/20 21:23 Results - Labs 09/15/20 04:00 09/15/20 04:00 Abnormal Lab Results - Last 24 Hours (Table) 09/14/20 09/14/20 09/14/20 Range/Units 21:49 21:49 21:49 RBC (3.80-5.40) m/uL Hgb (11.4-16.0) gm/dL Hct (34.0-46.0) % RDW 15.7 H (11.5-15.5) % PT 12.6 H (9.0-12.0) sec INR 1.2 H (<1.2) Chloride 110 H (98-107) mmol/L Carbon Dioxide 17 L (22-30) mmol/L BUN 6 L (7-17) mg/dL Glucose 103 H (74-99) mg/dL Plasma Lactic Acid Anthony (0.7-2.0) mmol/L Calcium (8.4-10.2) mg/dL Magnesium 1.5 L (1.6-2.3) mg/dL AST 57 H (14-36) U/L Total Protein (6.3-8.2) g/dL Albumin 3.4 L (3.5-5.0) g/dL Urine Bacteria (None) /hpf 09/14/20 09/15/20 09/15/20 Range/Units 21:49 00:45 02:19 RBC (3.80-5.40) m/uL Hgb (11.4-16.0) gm/dL Hct (34.0-46.0) % RDW (11.5-15.5) % PT (9.0-12.0) sec INR (<1.2) Chloride (98-107) mmol/L Carbon Dioxide (22-30) mmol/L BUN (7-17) mg/dL Glucose (74-99) mg/dL Plasma Lactic Acid Anthony 4.4 H* 4.2 H* (0.7-2.0) mmol/L Calcium (8.4-10.2) mg/dL Magnesium (1.6-2.3) mg/dL AST (14-36) U/L Total Protein (6.3-8.2) g/dL Albumin (3.5-5.0) g/dL Urine Bacteria Rare H (None) /hpf 09/15/20 09/15/20 Range/Units 04:00 04:00 RBC 3.56 L (3.80-5.40) m/uL Hgb 10.6 L (11.4-16.0) gm/dL Hct 31.7 L (34.0-46.0) % RDW 15.7 H (11.5-15.5) % PT (9.0-12.0) sec INR (<1.2) Chloride 110 H (98-107) mmol/L Carbon Dioxide (22-30) mmol/L BUN 5 L (7-17) mg/dL Glucose (74-99) mg/dL Plasma Lactic Acid Anthony (0.7-2.0) mmol/L Calcium 8.2 L (8.4-10.2) mg/dL Magnesium 1.4 L (1.6-2.3) mg/dL AST (14-36) U/L Total Protein 5.2 L (6.3-8.2) g/dL Albumin 2.6 L (3.5-5.0) g/dL Urine Bacteria (None) /hpf Diabetes panel 09/14/20 09/15/20 Range/Units 21:49 04:00 Sodium 138 138 (137-145) mmol/L Potassium 5.1 4.4 (3.5-5.1) mmol/L Chloride 110 H 110 H (98-107) mmol/L Carbon Dioxide 17 L 25 (22-30) mmol/L BUN 6 L 5 L (7-17) mg/dL Creatinine 0.56 0.60 (0.52-1.04) mg/dL Glucose 103 H 89 (74-99) mg/dL Calcium 8.7 8.2 L (8.4-10.2) mg/dL AST 57 H 29 (14-36) U/L ALT 17 12 (4-34) U/L Alkaline Phosphatase 100 92 (38-126) U/L Total Protein 6.6 5.2 L (6.3-8.2) g/dL Albumin 3.4 L 2.6 L (3.5-5.0) g/dL Calcium panel 09/14/20 09/15/20 Range/Units 21:49 04:00 Calcium 8.7 8.2 L (8.4-10.2) mg/dL Phosphorus 3.2 3.8 (2.5-4.5) mg/dL Albumin 3.4 L 2.6 L (3.5-5.0) g/dL Pituitary panel 09/14/20 09/15/20 Range/Units 21:49 04:00 Sodium 138 138 (137-145) mmol/L Potassium 5.1 4.4 (3.5-5.1) mmol/L Chloride 110 H 110 H (98-107) mmol/L Carbon Dioxide 17 L 25 (22-30) mmol/L BUN 6 L 5 L (7-17) mg/dL Creatinine 0.56 0.60 (0.52-1.04) mg/dL Glucose 103 H 89 (74-99) mg/dL Calcium 8.7 8.2 L (8.4-10.2) mg/dL Adrenal panel 09/14/20 09/15/20 Range/Units 21:49 04:00 Sodium 138 138 (137-145) mmol/L Potassium 5.1 4.4 (3.5-5.1) mmol/L Chloride 110 H 110 H (98-107) mmol/L Carbon Dioxide 17 L 25 (22-30) mmol/L BUN 6 L 5 L (7-17) mg/dL Creatinine 0.56 0.60 (0.52-1.04) mg/dL Glucose 103 H 89 (74-99) mg/dL Calcium 8.7 8.2 L (8.4-10.2) mg/dL Total Bilirubin 0.9 0.4 (0.2-1.3) mg/dL AST 57 H 29 (14-36) U/L ALT 17 12 (4-34) U/L Alkaline Phosphatase 100 92 (38-126) U/L Total Protein 6.6 5.2 L (6.3-8.2) g/dL Albumin 3.4 L 2.6 L (3.5-5.0) g/dL
--- NOTE | 2020-09-15 15:01 | CT ---
EXAMINATION TYPE: CT abdomen pelvis wo con DATE OF EXAM: 09/15/2020 HISTORY: abd pain CT DLP: 708.3 mGycm. Automated Exposure Control for Dose Reduction was Utilized. TECHNIQUE: CT scan of the abdomen and pelvis is performed with oral but without IV contrast. COMPARISON: CT abdomen and pelvis from yesterday and older studies FINDINGS: Within the limitations of a non-contrast study, the following observations are made. LUNG BASES: Left basilar linear scarring. LIVER/GB: Cholecystectomy clips redemonstrated. PANCREAS: No significant abnormality is seen. SPLEEN: No significant abnormality is seen. ADRENALS: No significant abnormality is seen. KIDNEYS: There is contrast excretion from recent CT noted. No hydronephrosis bilaterally. BOWEL: Oral contrast on current study reaches distal bowel loops in the pelvis. Few slightly prominen t small bowel loops in the left abdomen. No greater than 3.0 cm dilated small bowel loops. Left-sided colostomy redemonstrated. Remnant rectal pouch redemonstrated. Surgical sutures from gastric bypass redemonstrated. Stable position nasogastric tube. GENITAL ORGANS: Uterus surgically absent. LYMPH NODES: No greater than 1cm abdominal or pelvic lymph nodes are appreciated. OSSEOUS STRUCTURES: Underlying scoliosis redemonstrated. Grade 1 anterolisthesis L4 on L5. Moderate d isc space narrowing L4-L5 level. [id number] disc space narrowing left L2-L3 level. Moderate d isc space narrowing left L1-L2 level. Grade 1 retrolisthesis L1 on L2 and L2 on L3. OTHER: Moderate to severe calcified plaque of the aorta extends into branch vessels. Overlying vertic al midline anterior surgical scarring redemonstrated. Tiny incisional hernia axial image 33 redemonst rated. Additional tiny incisional hernia in the pelvis axial image 65 redemonstrated.. IMPRESSION: No bowel obstruction. No significant change from CT one day earlier.
[2020-09-15] MEDS: HEPARIN SODIUM,PORCINE/PF 5,000 UNIT/0.5 ML SYRINGE SQ SCH ×2 (17:20→23:26)
[2020-09-15] MEDS: QUEtiapine 25 MG TAB PO SCH (20:30)
--- NOTE | 2020-09-16 00:05 | P.HPIM ---
History of Present Illness H&P Date: 09/15/20 Chief Complaint: Nausea vomiting and abdominal discomfort Patient is a 74-year-old female with a known history of coronary artery disease, atrial fibrillation, hypertension, GERD, peptic ulcer disease, chronic back pain, history of laryngeal cancer 20 years ago, Guzman's palsy, anxiety/depression and panic disorder and history of diverticulitis with mesenteric abscess and ad hesions causing partial small bowel obstruction and other multiple medical problems presents to ER with the complaints of nausea and vomiting and abdominal pain for the past 2 days. Abdominal pain is mainly in the mid abdominal region. Patient states that she did have diarrhea few days ago. No complaints of chest pain or shortness of. No fever no chills. Chest x-ray showed no active cardiopulmonary disease. There is clearing of atelectasis in both lung herrera compared to old exam. EKG showed sinus tachycardia with PVCs. CT of the abdomen pelvis showed previous surgeries. No sign of acute abdomen pelvis. No adverse change compared to old exam. Laboratory showed WBC 8.3 hemoglobin 12.6 and platelets 269 Bicarb is 17 BUN 16 creatinine 0.56 and lactic acid 4.4 magnesium 1.5 Review of Systems Constitutional: Patient denies any fever or chills . No generalized weakness or weight loss. Abdomen: Nausea vomiting and abdominal discomfort. No diarrhea.. Cardiovascular: Patient denies any chest pain or short of breath no palpitations. Respiratory: patient denied any cough or sputum production. No shortness of breath Neurologic: Patient denied any numbness or tingling headache. Musculoskeletal: Patient denies any complaints of joint swelling or deformity. Skin: Negative Psychiatric: Negative Endocrine: No heat or cold intolerance. No recent weight gain. Genitourinary: No dysuria or hematuria. All other 14 point ROS negative except the above Past Medical History Past Medical History: Atrial Fibrillation, Coronary Artery Disease (CAD), Cancer, Chest Pain / Angina, Eye Disorder, GERD/Reflux, Hypertension, M usculoskeletal Disorder, Osteoarthritis (OA) Additional Past Medical History / Comment(s): Peptic ulcer, chronic back pain, 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 History of Any Multi-Drug Resistant Organisms: None Reported, MRSA Date of last positivie culture/infection: 1997 MDRO Source:: left shoulder Past Surgical History: Bariatric Surgery, Cholecystectomy, Heart Catheterization, Hysterectomy, Joint Replacement, Orthopedic Surgery Additional Past Surgical History / Comment(s): Bilateral knee replacement, left shoulder rotator cuff surgery, gastric bypass, D&C, EGD/colonoscopy, laryngeal tumor removed, Ganglion Cysts both wrists.PAIN CLINIC INJECTIONS, colostomy Past Anesthesia/Blood Transfusion Reactions: No Reported Reaction Date of Last Stent Placement:: 2012 Past Psychological History: Anxiety, Depression, Panic Disorder Additional Psychological History / Comment(s): pt is curently staying with her son since recent discharge from hospital otherwise lives [place]. currently has vna and visiting physician dt sharan Smoking Status: Never smoker Past Alcohol Use History: None Reported Additional Past Alcohol Use History / Comment(s): Pt started smoking in 1959 and quit in 1980, 1ppd. Past Drug Use History: None Reported - Past Family History Mother Family Medical History: Cancer, Congestive Heart Failure (CHF), Diabetes Mellitus, Hypertension Additional Family Medical History / Comment(s): Mother passed at 93. Father Family Medical History: Myocardial Infarction (DC) Additional Family Medical History / Comment(s): Father of a DC at the age of 39 yrs. Sister(s) Family Medical History: Cancer Brother(s) Family Medical History: Cancer, Myocardial Infarction (DC) Medications and Allergies Home Medications Medication Instructions Recorded Confirmed Type Levothyroxine Sodium [Synthroid] 200 mcg PO DAILY 01/12/19 09/14/20 History Pantoprazole [Protonix] 40 mg PO DAILY 07/09/20 09/14/20 History lisinopriL 40 mg PO DAILY 07/09/20 09/14/20 History HYDROcodone/APAP 10-325MG [[place] 1 tab PO Q6H 08/26/20 09/14/20 History 10-325] Morphine Sulfate ER [Ms Contin] 15 mg PO Q12HR PRN 08/26/20 09/14/20 History QUEtiapine FUMARATE [SEROquel] 25 mg PO HS 08/26/20 09/14/20 History Lactulose [Cephulac] 20 gm PO BID PRN #300 ml 08/29/20 09/14/20 Rx Ondansetron Odt [Zofran Odt] 4 mg PO Q8HR PRN #10 tab 08/29/20 09/14/20 Rx Cephalexin [Keflex] 500 mg PO BID 09/14/20 09/14/20 History Mupirocin [Mupirocin 2%] 1 applic TOPICAL BID 09/14/20 09/14/20 History Allergies Allergy/AdvReac Type Severity Reaction Status Date / Time vancomycin Allergy Rash/Hives Verified 09/14/20 22:22 Physical Exam Vitals: Vital Signs Temp Pulse Pulse Resp BP BP Pulse Ox 09/15/20 07:43 98.4 F 89 16 121/73 94 L 09/15/20 02:02 98.3 F 91 17 169/84 97 09/15/20 00:26 97.5 F L 90 15 158/91 95 09/14/20 23:47 81 18 144/76 97 09/14/20 22:36 97 24 112/76 97 09/14/20 21:23 98.3 F 104 H 20 186/104 99 Intake and Output 09/14/20 09/15/20 09/15/20 22:59 06:59 14:59 Other: Voiding Method Toilet # Voids 1 Weight 81.647 kg 81.647 kg PHYSICAL EXAMINATION: Patient is lying in the bed comfortably, no acute distress, awake alert and oriented.. HEENT: Normocephalic. Neck is supple. Pupils reactive. Nostrils clear. Oral cavity is moist. Ears reveal no drainage. Neck reveals no JVD, carotid bruits, or thyromegaly. CHEST EXAMINATION: Trachea is central. Symmetrical expansion. Lung herrera clear to auscultation and percussion. CARDIAC: Normal S1, S2 with no gallops. No murmurs ABDOMEN: Soft. Bowel sounds present. Stool noted in the colostomy bag.. No organomegaly. No abdominal bruits. Extremities: reveal no edema. No clubbing or cyanosis Neurologically awake, alert, oriented x3 with well-coordinated movements. No focal deficits noted Skin: No rash or skin lesions. Psychiatric: Coperative. Nonsuicidal Musculoskeletal: No joint swelling or deformity. Normal range of motion. Results CBC & Chem 7: 09/15/20 04:00 09/15/20 04:00 Labs: Abnormal Lab Results - Last 24 Hours (Table) 09/14/20 09/14/20 09/14/20 Range/Units 21:49 21:49 21:49 RBC (3.80-5.40) m/uL Hgb (11.4-16.0) gm/dL Hct (34.0-46.0) % RDW 15.7 H (11.5-15.5) % PT 12.6 H (9.0-12.0) sec INR 1.2 H (<1.2) Chloride 110 H (98-107) mmol/L Carbon Dioxide 17 L (22-30) mmol/L BUN 6 L (7-17) mg/dL Glucose 103 H (74-99) mg/dL Plasma Lactic Acid Anthony (0.7-2.0) mmol/L Calcium (8.4-10.2) mg/dL Magnesium 1.5 L (1.6-2.3) mg/dL AST 57 H (14-36) U/L Total Protein (6.3-8.2) g/dL Albumin 3.4 L (3.5-5.0) g/dL Urine Bacteria (None) /hpf 09/14/20 09/15/20 09/15/20 Range/Units 21:49 00:45 02:19 RBC (3.80-5.40) m/uL Hgb (11.4-16.0) gm/dL Hct (34.0-46.0) % RDW (11.5-15.5) % PT (9.0-12.0) sec INR (<1.2) Chloride (98-107) mmol/L Carbon Dioxide (22-30) mmol/L BUN (7-17) mg/dL Glucose (74-99) mg/dL Plasma Lactic Acid Anthony 4.4 H* 4.2 H* (0.7-2.0) mmol/L Calcium (8.4-10.2) mg/dL Magnesium (1.6-2.3) mg/dL AST (14-36) U/L Total Protein (6.3-8.2) g/dL Albumin (3.5-5.0) g/dL Urine Bacteria Rare H (None) /hpf 09/15/20 09/15/20 Range/Units 04:00 04:00 RBC 3.56 L (3.80-5.40) m/uL Hgb 10.6 L (11.4-16.0) gm/dL Hct 31.7 L (34.0-46.0) % RDW 15.7 H (11.5-15.5) % PT (9.0-12.0) sec INR (<1.2) Chloride 110 H (98-107) mmol/L Carbon Dioxide (22-30) mmol/L BUN 5 L (7-17) mg/dL Glucose (74-99) mg/dL Plasma Lactic Acid Anthony (0.7-2.0) mmol/L Calcium 8.2 L (8.4-10.2) mg/dL Magnesium 1.4 L (1.6-2.3) mg/dL AST (14-36) U/L Total Protein 5.2 L (6.3-8.2) g/dL Albumin 2.6 L (3.5-5.0) g/dL Urine Bacteria (None) /hpf Thrombosis Risk Factor Assmnt - DVT/VTE Prophylaxis DVT/VTE Prophylaxis: Pharmacologic Prophylaxis ordered - Choose All That Apply Each Factor Represents 1 point: Obesity (BMI >25) Each Risk Factor Represents 2 Points: Age 61-74 years Thrombosis Risk Factor Assessment Total Risk Factor Score: 3 Thrombosis Risk Factor Assessment Level: Moderate Risk Assessment and Plan Assessment: Intractable nausea vomiting and abdominal discomfort possible small bowel ileus. History of diverticulitis with mesenteric abscess and lesions causing partial small bowel obstruction status post sigmoid colectomy and end colostomy and lysis of adhesions on 07/10/2020 Lactic acidosis resolved. Chronic back pain History of peptic ulcer disease GERD Hypertension Osteoarthritis History of coronary disease with no history of PCI Anxiety/depression and panic disorder Hypomagnesemia. Replaced. DVT prophylaxis Heparin subcu. Plan: Patient will be continued on IV hydration and nothing by mouth. NG tube for decompression. CT of abdomen pelvis showed no evidence of obstruction. Repeat CT of the abdomen pelvis was ordered. General surgery is following. Continue with IV pain medications. Follow CBC BMP and magnesium tomorrow. Continue to follow closely and further recommendations based on clinical course. Time with Patient: Greater than 30
[2020-09-16] MEDS: HYDROmorphone 1 MG/ML 1 ML SYRINGE IVP PRN ×7 (00:25→22:12)
[2020-09-16] MEDS: LEVOTHYROXINE 100 MCG TAB PO SCH (05:43)
[2020-09-16] MEDS: PANTOPRAZOLE 40 MG/10 ML VIAL IV SCH (07:50)
[2020-09-16] MEDS: HEPARIN SODIUM,PORCINE/PF 5,000 UNIT/0.5 ML SYRINGE SQ SCH ×3 (07:50→23:12)
[2020-09-16 11:57] LABS: Basophils # (A) 0.05 X 10*3/uL (0.00-0.10); Eosinophils # (A) 0.39 X 10*3/uL (0.04-0.35); Eosinophils % (A) 7.8 %; HGB 9.7 g/dL (12.0-15.0); MCH 28.8 pg (27.0-32.0); MCHC 31.3 g/dL (32.0-37.0); Mean Platelet Volume 11.4 fL (9.5-12.2); Monocytes # (A) 0.73 X 10*3/uL (0.20-1.00); Monocytes % (A) 14.6 %; Neutrophils # (A) 1.22 X 10*3/uL (1.80-7.70); Neutrophils % (A) 24.4 %; Platelet Count 202 X 10*3/uL (140-440); RBC 3.37 X 10*6/uL (4.10-5.20); RDW 16.5 % (11.5-14.5)
--- NOTE | 2020-09-16 12:04 | P.PN ---
Subjective Progress Note Date: 09/16/20 CHIEF COMPLAINT: Abdominal pain with nausea and vomiting HISTORY OF PRESENT ILLNESS: Surgical service is following in regards to patient's possible ileus. Patient had computed tomography scan of the abdomen and pelvis with oral contrast showed no evidence of bowel obstruction. No significant change from computed tomography scan one day earlier. Patient has been having stool through her ostomy. She does have abdominal pain but improved from admission. Afebrile. WBC 5.0 hemoglobin 9.7 Patient seen and examined with Dr. atkins PHYSICAL EXAM: VITAL SIGNS: Reviewed. GENERAL: Well-developed in no acute distress. HEENT: No sclera icterus. Extraocular movements grossly intact. Moist buccal mucosa. Head is atraumatic, normocephalic. ABDOMEN: Soft. Nondistended. Mild tenderness with palpation of the mid abdomen NEUROLOGIC: Alert and oriented. Cranial nerves II through XII grossly intact. ASSESSMENT: 1. Ileus resolved 2. Abdominal pain with nausea and vomiting 3. History of diverticulitis with mesenteric abscess and adhesions causing a partial small bowel obstruction she is status post sigmoid colectomy with end colostomy and lysis of adhesions on 07/10/2020 4. Hypomagnesemia. Magnesium replaced yesterday. Awaiting repeat lab PLAN: -Discontinue NG tube -Start patient on a full liquid diet -Encouraged patient to increase activity Physician Specification Writer note has been reviewed by physician. Signing provider agrees with the documented findings, assessment, and plan of care. Objective - Vital Signs Vital signs: Vital Signs Temp 97.9 F 09/16/20 07:10 Pulse 72 09/16/20 07:10 Resp 17 09/16/20 07:10 BP 130/77 09/16/20 07:10 Pulse Ox 96 09/16/20 07:10 Intake & Output 09/15/20 09/16/20 09/16/20 18:59 06:59 18:59 Weight 81.647 kg Other: Voiding Method Toilet Toilet # Voids 2 2 # Bowel Movements 1 - Labs CBC & Chem 7: 09/16/20 06:58 09/15/20 04:00 Labs: Abnormal Lab Results - Last 24 Hours (Table) 09/16/20 Range/Units 06:58 RBC 3.37 L (4.10-5.20) X 10*6/uL Hgb 9.7 L (12.0-15.0) g/dL Hct 31.0 L (37.2-46.3) % MCHC 31.3 L (32.0-37.0) g/dL RDW 16.5 H (11.5-14.5) % Neutrophils # 1.22 L (1.80-7.70) X 10*3/uL Eosinophils # 0.39 H (0.04-0.35) X 10*3/uL
[2020-09-16 13:11] LABS: African American GFR (CKD) 110.5 (60.0-200.0); Anion Gap 6.7 mmol/L (4.00-12.00); Calcium 7.7 mg/dL (8.7-10.3); Carbon Dioxide 23.3 mmol/L (21.6-31.8); Magnesium 1.9 mg/dL (1.5-2.4); Non-African American GFR(CKD) 95.3 (60.0-200.0); Potassium 3.6 mmol/L (3.5-5.5)
[2020-09-16] MEDS: DEXTROSE 5%-0.45% NACL 1,000 ML IV SCH (14:20)
[2020-09-16] MEDS: QUEtiapine 25 MG TAB PO SCH (19:51)
[2020-09-17] MEDS: HYDROmorphone 1 MG/ML 1 ML SYRINGE IVP PRN ×6 (01:10→20:15)
--- NOTE | 2020-09-17 01:28 | P.PN ---
Subjective Progress Note Date: 09/16/20 Principal diagnosis: Intractable nausea vomiting and abdominal discomfort possible small bowel ileus. resolved Patient is a 74-year-old female with a known history of coronary artery disease, atrial fibrillation, hypertension, GERD, peptic ulcer disease, chronic back pain, history of laryngeal cancer 20 years ago, Guzman's palsy, anxiety/depression and panic disorder and history of diverticulitis with mesenteric abscess and adhesions causing partial small bowel obstruction and other multiple medical problems presents to ER with the complaints of nausea and vomiting and abdominal pain for the past 2 days. Abdominal pain is mainly in the mid abdominal region. Patient states that she did have diarrhea few days ago. No complaints of chest pain or shortness of. No fever no chills. Chest x-ray showed no active cardiopulmonary disease. There is clearing of atelectasis in both lung herrera compared to old exam. EKG showed sinus tachycardia with PVCs. CT of the abdomen pelvis showed previous surgeries. No sign of acute abdomen pelvis. No adverse change compared to old exam. Laboratory showed WBC 8.3 hemoglobin 12.6 and platelets 269 Bicarb is 17 BUN 16 creatinine 0.56 and lactic acid 4.4 magnesium 1.5 09/16/2020 Patient is currently resting in the bed awake alert oriented x3. Nausea and abdominal pain is improving. Patient did have a small bowel in the colostomy bag. NG tube has been discontinued and patient was started on full liquid diet. No headache or dizziness or lightheadedness. No chest pain or shortness breath. No fever no chills. General surgery is on board. Current medications reviewed. Objective - Vital Signs Vital signs: Vital Signs Temp 98.1 F 09/16/20 19:41 Pulse 85 09/16/20 20:00 Resp 18 09/16/20 20:00 BP 166/73 09/16/20 19:41 Pulse Ox 97 09/16/20 19:41 Intake & Output 09/16/20 09/16/20 09/17/20 06:59 18:59 06:59 Weight 81.647 kg Other: Voiding Method Toilet Toilet # Voids 2 2 - Exam PHYSICAL EXAMINATION: Patient is lying in the bed comfortably, no acute distress, awake alert and oriented.. HEENT: Normocephalic. Neck is supple. Pupils reactive. Nostrils clear. Oral cavity is moist. Ears reveal no drainage. Neck reveals no JVD, carotid bruits, or thyromegaly. CHEST EXAMINATION: Trachea is central. Symmetrical expansion. Lung herrera clear to auscultation and percussion. CARDIAC: Normal S1, S2 with no gallops. No murmurs ABDOMEN: Soft. Bowel sounds present. Stool noted in the colostomy bag.. No organomegaly. No abdominal bruits. Extremities: reveal no edema. No clubbing or cyanosis Neurologically awake, alert, oriented x3 with well-coordinated movements. No focal deficits noted Skin: No rash or skin lesions. Psychiatric: Coperative. Nonsuicidal Musculoskeletal: No joint swelling or deformity. Normal range of motion. - Labs CBC & Chem 7: 09/16/20 06:58 09/16/20 06:58 Labs: Abnormal Lab Results - Last 24 Hours (Table) 09/16/20 09/16/20 Range/Units 06:58 06:58 RBC 3.37 L (4.10-5.20) X 10*6/uL Hgb 9.7 L (12.0-15.0) g/dL Hct 31.0 L (37.2-46.3) % MCHC 31.3 L (32.0-37.0) g/dL RDW 16.5 H (11.5-14.5) % Neutrophils # 1.22 L (1.80-7.70) X 10*3/uL Eosinophils # 0.39 H (0.04-0.35) X 10*3/uL BUN 5.0 L (9.0-27.0) mg/dL Creatinine 0.5 L (0.6-1.5) mg/dL BUN/Creatinine Ratio 10.00 L (12.00-20.00) Ratio Glucose 123 H (70-110) mg/dL Calcium 7.7 L (8.7-10.3) mg/dL Assessment and Plan Assessment: Intractable nausea vomiting and abdominal discomfort possible small bowel ileus. resolved History of diverticulitis with mesenteric abscess and lesions causing partial s mall bowel obstruction status post sigmoid colectomy and end colostomy and lysis of adhesions on 07/10/2020 Lactic acidosis resolved. Chronic back pain History of peptic ulcer disease GERD Hypertension Osteoarthritis History of coronary disease with no history of PCI Anxiety/depression and panic disorder Hypomagnesemia. Replaced. DVT prophylaxis Heparin subcu. Plan: Patient will be started on liquid diet since bowel ileus is resolved. NG tube has been discontinued. Advance diet as tolerated and encourage ambulation. CT of abdomen pelvis showed no evidence of obstruction. Repeat CT of the a bdomen pelvis was ordered. General surgery is following. Continue with IV pain medications. Follow BMP tomorrow. Continue to follow closely and further recommendations based on clinical course. Time with Patient: Greater than 30
[2020-09-17] MEDS: DEXTROSE 5%-0.45% NACL 1,000 ML IV SCH ×2 (03:13→17:03)
[2020-09-17] MEDS: LEVOTHYROXINE 100 MCG TAB PO SCH (06:02)
[2020-09-17] MEDS: HEPARIN SODIUM,PORCINE/PF 5,000 UNIT/0.5 ML SYRINGE SQ SCH ×3 (07:49→23:07)
[2020-09-17] MEDS: PANTOPRAZOLE 40 MG/10 ML VIAL IV SCH (07:49)
--- NOTE | 2020-09-17 09:40 | P.PN ---
Subjective Progress Note Date: 09/17/20 Principal diagnosis: Abdominal pain Patient still complaining abdominal pain. She states it somewhat better. She has had 2 CAT scans in the last few days showing no definite etiology for her discomfort. Being treated as an ileus. Remains on a full liquid diet but is somewhat nauseous and not drinking. Objective - Vital Signs Vital signs: Vital Signs Temp 97.5 F L 09/17/20 07:29 Pulse 89 09/17/20 07:29 Resp 18 09/17/20 08:00 BP 93/63 09/17/20 07:29 Pulse Ox 97 09/17/20 07:29 Intake & Output 09/16/20 09/17/20 09/17/20 18:59 06:59 18:59 Weight 81.647 kg Other: Voiding Method Toilet Toilet Toilet # Voids 2 3 - Exam Abdomen: Soft, nondistended, mild tenderness, incision well healed, ostomy with minimal output - Labs CBC & Chem 7: 09/16/20 06:58 09/16/20 06:58 Labs: Abnormal Lab Results - Last 24 Hours (Table) 09/16/20 09/16/20 Range/Units 06:58 06:58 RBC 3.37 L (4.10-5.20) X 10*6/uL Hgb 9.7 L (12.0-15.0) g/dL Hct 31.0 L (37.2-46.3) % MCHC 31.3 L (32.0-37.0) g/dL RDW 16.5 H (11.5-14.5) % Neutrophils # 1.22 L (1.80-7.70) X 10*3/uL Eosinophils # 0.39 H (0.04-0.35) X 10*3/uL BUN 5.0 L (9.0-27.0) mg/dL Creatinine 0.5 L (0.6-1.5) mg/dL BUN/Creatinine Ratio 10.00 L (12.00-20.00) Ratio Glucose 123 H (70-110) mg/dL Calcium 7.7 L (8.7-10.3) mg/dL Assessment and Plan (1) Abdominal pain Narrative/Plan: Patient having persistent pain. Gradually improved today. Continue full liquids only. Will review analgesics. Current Visit: No Status: Acute Code(s): R10.9 - UNSPECIFIED ABDOMINAL PAIN SNOMED Code(s): 00218428
[2020-09-17] MEDS: KETOROLAC 15 MG/ML 1 ML VIAL IVP SCH ×3 (11:44→23:07)
[2020-09-17 12:15] LABS: African American GFR (CKD) 110.5 (60.0-200.0); Blood Urea Nitrogen <5.0 mg/dL (9.0-27.0); Calcium 8.3 mg/dL (8.7-10.3); Carbon Dioxide 22.8 mmol/L (21.6-31.8); Chloride 106 mmol/L (96-109); Glucose 94 mg/dL (70-110); Non-African American GFR(CKD) 95.3 (60.0-200.0); Potassium 3.6 mmol/L (3.5-5.5); Sodium 136 mmol/L (135-145)
--- NOTE | 2020-09-17 15:18 | P.PN ---
Subjective Progress Note Date: 09/17/20 Principal diagnosis: Intractable nausea vomiting and abdominal discomfort possible small bowel ileus. Ms. Eric is a 74-year-old female with a known history of coronary artery di sease, treated for depression, hypertension, GERD, ulcer disease, chronic low back pain, history of laryngeal cancer 20 years ago, bells palsy, anxiety depression, panic disorder and history of diverticulitis with numbness into Cyst and medications coming into the hospital with a chief complaint of nausea vomiting abdominal pain for 2 days. CAT scan of the abdomen and pelvis showing no acute abdomen. She is currently being treated for possible small bowel ileus. On 09/17/2020- patient was seen and examined at bedside. She complains of abdominal pain mostly in the periumbilical area. Mentions that her nausea is improving. She did have a small stool in her colostomy bag. Patient denies having any fevers chills or rigors. No chest pain or palpitations. No cough or difficulty in breathing. No fevers chills or rigors. On reviewing the vitals temperature 98.1, heart rate 84, respiratory rate 18, blood pressure 166/73, saturating at 97% on room air. Reviewing the labs sodium 1 that is his compression 3.6, chloride 106, bicarb 22, BUN less than 5, creatinine 0.5. Active Medications Acetaminophen (Acetaminophen Tab 325 Mg Tab) 650 mg PO Q4HR PRN PRN Reason: Fever and/ or Pain Heparin Sodium (Porcine) (Heparin Sodium,Porcine/Pf 5,000 Unit/0.5 Ml Syringe) 5,000 unit SQ Q8HR [facility] Last Admin: 09/17/20 07:49 Dose: 5,000 unit Documented by: Hydromorphone HCl (Hydromorphone 1 Mg/Ml 1 Ml Syringe) 1 mg IVP Q3HR PRN PRN Reason: Moderate Pain Last Admin: 09/17/20 13:50 Dose: 1 mg Documented by: Dextrose/Sodium Chloride (Dextrose 5%-1/2ns Iv Soln) 1,000 mls @ 80 mls/hr IV .[id number] [facility] Last Admin: 09/17/20 03:13 Dose: Not Given Documented by: Ketorolac Tromethamine (Ketorolac 15 Mg/Ml 1 Ml Vial) 15 mg IVP Q6HR [facility] Stop: 09/22/20 12:01 Last Admin: 09/17/20 11:44 Dose: 15 mg Documented by: Lactulose (Lactulose 20 Gm/30 Ml Cup) 20 gm PO BID PRN PRN Reason: Constipation Levothyroxine Sodium (Levothyroxine 100 Mcg Tab) 200 mcg PO 0630 [facility] Last Admin: 09/17/20 06:02 Dose: 200 mcg Documented by: Lorazepam (Lorazepam 2 Mg/Ml Inj) 1 mg IV Q6HR PRN PRN Reason: Anxiety Miscellaneous Information (Magnesium Replacement Protocol 1 Each Misc) 1 each MISCELLANE DAILY PRN; Protocol PRN Reason: Per Protocol Naloxone HCl (Naloxone 0.4 Mg/Ml 1 Ml Vial) 0.2 mg IV Q2M PRN PRN Reason: Opioid Reversal Pantoprazole Sodium (Pantoprazole 40 Mg Tablet) 40 mg PO DAILY [facility] Quetiapine Fumarate (Quetiapine 25 Mg Tab) 25 mg PO HS [facility] Last Admin: 09/16/20 19:51 Dose: 25 mg Documented by: Objective - Vital Signs Vital signs: Vital Signs Temp 97.5 F L 09/17/20 07:29 Pulse 89 09/17/20 07:29 Resp 18 09/17/20 08:00 BP 93/63 09/17/20 07:29 Pulse Ox 97 09/17/20 07:29 Intake & Output 09/16/20 09/17/20 09/17/20 18:59 06:59 18:59 Weight 81.647 kg Other: Voiding Method Toilet Toilet Toilet # Voids 2 3 - Exam PHYSICAL EXAMINATION: Patient is lying in the bed comfortably, no acute distress, awake alert and oriented. HEENT: Normocephalic. Neck is supple. Pupils reactive. Nostrils clear. Oral cavity is moist. Neck reveals no JVD, carotid bruits, or thyromegaly. CHEST EXAMINATION: Trachea is central. Symmetrical expansion. Lung herrera clear to auscultation and percussion. CARDIAC: Normal S1, S2 with no gallops. No murmurs ABDOMEN: Soft. Nondistended. Mild tenderness. Bowel sounds hyperactive. Small amount of stool noted in the colostomy bag. Extremities: reveal no edema. No clubbing or cyanosis Neurologically awake, alert, oriented x3 . No focal deficits noted Skin: No rash or skin lesions. Psychiatric: Coperative. Nonsuicidal Musculoskeletal: No joint swelling or deformity. Normal range of motion - Labs CBC & Chem 7: 09/16/20 06:58 09/17/20 06:27 Labs: Abnormal Lab Results - Last 24 Hours (Table) 09/16/20 09/17/20 Range/Units 06:58 06:27 BUN 5.0 L <5.0 L (9.0-27.0) mg/dL Creatinine 0.5 L 0.5 L (0.6-1.5) mg/dL BUN/Creatinine Ratio 10.00 L (12.00-20.00) Ratio Glucose 123 H (70-110) mg/dL Calcium 7.7 L 8.3 L (8.7-10.3) mg/dL Assessment and Plan Assessment: ASSESSMENT Intractable nausea vomiting and abdominal discomfort possible small bowel ileus History of diverticulitis with mesenteric abscess and lesions causing partial small bowel obstruction status post sigmoid colectomy and end colostomy and lysis of adhesions on 07/10/2020 Lactic acidosis resolved. Chronic back pain History of peptic ulcer disease GERD Hypertension Osteoarthritis History of coronary disease with no history of PCI Anxiety/depression and panic disorder Hypomagnesemia. Replaced. DVT prophylaxis Heparin subcu. PLAN: Patient's nausea seems to be resolving but she continues to have abdominal pain. NG tube has been discontinued. Surgery Dr. Gamble following the patient closely and will let full liquid diet for now. Continue with IV fluids, pain management. GI DVT prophylaxis. Further recommendations to follow depending on the progress of the patient.
[2020-09-17] MEDS: QUEtiapine 25 MG TAB PO SCH (20:15)
[2020-09-18] MEDS: HYDROmorphone 1 MG/ML 1 ML SYRINGE IVP PRN ×8 (00:50→20:13)
[2020-09-18] MEDS: DEXTROSE 5%-0.45% NACL 1,000 ML IV SCH ×3 (00:51→20:13)
[2020-09-18] MEDS: LEVOTHYROXINE 100 MCG TAB PO SCH (05:32)
[2020-09-18] MEDS: KETOROLAC 15 MG/ML 1 ML VIAL IVP SCH ×4 (05:33→23:07)
[2020-09-18] MEDS: PANTOPRAZOLE 40 MG TABLET PO SCH (07:05)
[2020-09-18] MEDS: HEPARIN SODIUM,PORCINE/PF 5,000 UNIT/0.5 ML SYRINGE SQ SCH ×3 (07:05→23:07)
--- NOTE | 2020-09-18 12:28 | P.PN ---
Subjective Progress Note Date: 09/18/20 Principal diagnosis: Abdominal pain Patient still describing mid abdominal discomfort. Tolerating full liquids. No significant ostomy function however. No nausea or vomiting. She is afebrile. Objective - Vital Signs Vital signs: Vital Signs Temp 97.8 F 09/18/20 07:00 Pulse 63 09/18/20 07:00 Resp 16 09/18/20 07:00 BP 156/68 09/18/20 07:00 Pulse Ox 97 09/18/20 07:00 Intake & Output 09/17/20 09/18/20 09/18/20 18:59 06:59 18:59 Other: Voiding Method Toilet Toilet Toilet # Voids 2 2 - Exam Abdomen: Soft, mild mid abdominal tenderness, ostomy pink without significant air or stool in bag - Labs CBC & Chem 7: 09/16/20 06:58 09/17/20 06:27 Assessment and Plan (1) Abdominal pain Narrative/Plan: Patient still having discomfort. She is afebrile. Tolerating full liquids. Continue full liquids. Recheck abdominal x-rays and CBC tomorrow. Current Visit: No Status: Acute Code(s): R10.9 - UNSPECIFIED ABDOMINAL PAIN SNOMED Code(s): 73645988
[2020-09-18 12:39] LABS: African American GFR (CKD) 104.1 (60.0-200.0); Anion Gap 8.9 mmol/L (4.00-12.00); BUN/Creat Ratio 8.33 Ratio (12.00-20.00); Calcium 7.7 mg/dL (8.7-10.3); Carbon Dioxide 22.1 mmol/L (21.6-31.8); Non-African American GFR(CKD) 89.8 (60.0-200.0)
[2020-09-18 12:41] LABS: Basophils # (A) 0.03 X 10*3/uL (0.00-0.10); Basophils % (A) 0.5 %; Eosinophils # (A) 0.61 X 10*3/uL (0.04-0.35); Eosinophils % (A) 10.5 %; HCT 32.4 % (37.2-46.3); HGB 10.1 g/dL (12.0-15.0); Lymphocytes # (A) 3.38 X 10*3/uL (0.90-5.00); Lymphocytes % (A) 58.3 %; MCH 28.5 pg (27.0-32.0); MCHC 31.2 g/dL (32.0-37.0); MCV 91.5 fL (80.0-97.0); Mean Platelet Volume 11.7 fL (9.5-12.2); Monocytes # (A) 0.64 X 10*3/uL (0.20-1.00); Neutrophils # (A) 1.13 X 10*3/uL (1.80-7.70); Neutrophils % (A) 19.5 %; Platelet Count 209 X 10*3/uL (140-440); RBC 3.54 X 10*6/uL (4.10-5.20); RDW 15.9 % (11.5-14.5)
--- NOTE | 2020-09-18 15:05 | P.PN ---
Subjective Progress Note Date: 09/18/20 Principal diagnosis: Intractable nausea vomiting and abdominal discomfort possible small bowel ileus. Ms. Eric is a 74-year-old female with a known history of coronary artery di sease, treated for depression, hypertension, GERD, ulcer disease, chronic low back pain, history of laryngeal cancer 20 years ago, bells palsy, anxiety depression, panic disorder and history of diverticulitis with numbness into Cyst and medications coming into the hospital with a chief complaint of nausea vomiting abdominal pain for 2 days. CAT scan of the abdomen and pelvis showing no acute abdomen. She is currently being treated for possible small bowel ileus. On 09/17/2020- patient was seen and examined at bedside. She complains of abdominal pain mostly in the periumbilical area. Mentions that her nausea is improving. She did have a small stool in her colostomy bag. Patient denies having any fevers chills or rigors. No chest pain or palpitations. No cough or difficulty in breathing. No fevers chills or rigors. On reviewing the vitals temperature 98.1, heart rate 84, respiratory rate 18, blood pressure 166/73, saturating at 97% on room air. Reviewing the labs sodium 1 that is his compression 3.6, chloride 106, bicarb 22, BUN less than 5, creatinine 0.5. On 09/18/2020 - patient feels and examined at the bedside. She continues to have abdominal pain, denies having any nausea or vomiting. She is able to tolerate full liquids. She states that she is small amount of stool in her colostomy bag. Patient denies having any chest pain or palpitations. No fever chills or rigors. No dysuria or hematuria. On reviewing the vitals temperature of 97.8, heart rate 68, respiratory 16 blood pressure 156-68, saturating at 97% on room air. On reviewing the labs white count of 5.8, hemoglobin 9.1, platelets 209. Sodium 137 compression 4, chloride 106, bicarbonate 22, BUN 5, creatinine 0.6. Active Medications Acetaminophen (Acetaminophen Tab 325 Mg Tab) 650 mg PO Q4HR PRN PRN Reason: Fever and/ or Pain Heparin Sodium (Porcine) (Heparin Sodium,Porcine/Pf 5,000 Unit/0.5 Ml Syringe) 5,000 unit SQ Q8HR [facility] Last Admin: 09/18/20 07:05 Dose: 5,000 unit Documented by: Hydromorphone HCl (Hydromorphone 1 Mg/Ml 1 Ml Syringe) 1 mg IVP Q3HR PRN PRN Reason: Moderate Pain Last Admin: 09/18/20 13:26 Dose: 1 mg Documented by: Dextrose/Sodium Chloride (Dextrose 5%-1/2ns Iv Soln) 1,000 mls @ 80 mls/hr IV .[id number] [facility] Last Admin: 09/18/20 00:51 Dose: 80 mls/hr Documented by: Ketorolac Tromethamine (Ketorolac 15 Mg/Ml 1 Ml Vial) 15 mg IVP Q6HR [facility] Stop: 09/22/20 12:01 Last Admin: 09/18/20 11:38 Dose: 15 mg Documented by: Lactulose (Lactulose 20 Gm/30 Ml Cup) 20 gm PO BID PRN PRN Reason: Constipation Levothyroxine Sodium (Levothyroxine 100 Mcg Tab) 200 mcg PO 0630 [facility] Last Admin: 09/18/20 05:32 Dose: 200 mcg Documented by: Lorazepam (Lorazepam 2 Mg/Ml Inj) 1 mg IV Q6HR PRN PRN Reason: Anxiety Miscellaneous Information (Magnesium Replacement Protocol 1 Each Misc) 1 each MISCELLANE DAILY PRN; Protocol PRN Reason: Per Protocol Naloxone HCl (Naloxone 0.4 Mg/Ml 1 Ml Vial) 0.2 mg IV Q2M PRN PRN Reason: Opioid Reversal Pantoprazole Sodium (Pantoprazole 40 Mg Tablet) 40 mg PO DAILY [facility] Last Admin: 09/18/20 07:05 Dose: 40 mg Documented by: Quetiapine Fumarate (Quetiapine 25 Mg Tab) 25 mg PO [facility] Last Admin: 09/17/20 20:15 Dose: 25 mg Documented by: Objective - Vital Signs Vital signs: Vital Signs Temp 97.8 F 09/18/20 07:00 Pulse 63 09/18/20 07:00 Resp 16 09/18/20 07:00 BP 156/68 09/18/20 07:00 Pulse Ox 97 09/18/20 07:00 Intake & Output 09/17/20 09/18/20 09/18/20 18:59 06:59 18:59 Other: Voiding Method Toilet Toilet Toilet # Voids 2 2 - Exam PHYSICAL EXAMINATION: Patient is lying in the bed comfortably, no acute distress, awake alert and oriented. HEENT: Normocephalic. Neck is supple. Pupils reactive. No pallor. Neck reveals no JVD, carotid bruits, or thyromegaly. CHEST EXAMINATION: Trachea is central. Symmetrical expansion. Lung herrera clear to auscultation and percussion. CARDIAC: Normal S1, S2 with no gallops. No murmurs ABDOMEN: Soft. Nondistended. Mild tenderness. Bowel sounds hyperactive. Small amount of stool noted in the colostomy bag. Extremities: reveal no edema. No clubbing or cyanosis Neurologically awake, alert, oriented x3 . No focal deficits noted Psychiatric: Coperative. Nonsuicidal - Labs CBC & Chem 7: 09/18/20 07:37 09/18/20 07:37 Labs: Abnormal Lab Results - Last 24 Hours (Table) 09/18/20 09/18/20 Range/Units 07:37 07:37 RBC 3.54 L (4.10-5.20) X 10*6/uL Hgb 10.1 L (12.0-15.0) g/dL Hct 32.4 L (37.2-46.3) % MCHC 31.2 L (32.0-37.0) g/dL RDW 15.9 H (11.5-14.5) % Neutrophils # 1.13 L (1.80-7.70) X 10*3/uL Eosinophils # 0.61 H (0.04-0.35) X 10*3/uL BUN 5.0 L (9.0-27.0) mg/dL BUN/Creatinine Ratio 8.33 L (12.00-20.00) Ratio Glucose 120 H (70-110) mg/dL Calcium 7.7 L (8.7-10.3) mg/dL Assessment and Plan Assessment: ASSESSMENT Intractable nausea vomiting and abdominal discomfort possible small bowel ileus History of diverticulitis with mesenteric abscess and lesions causing partial small bowel obstruction status post sigmoid colectomy and end colostomy and lysis of adhesions on 07/10/2020 Lactic acidosis resolved. Chronic back pain History of peptic ulcer disease GERD Hypertension Osteoarthritis History of coronary disease with no history of PCI Anxiety/depression and panic disorder Hypomagnesemia. Replaced. DVT prophylaxis Heparin subcu. PLAN: Patient's nausea seems to be resolving but she continues to have abdominal pain. NG tube has been discontinued. Surgery Dr. Gamble following the patient closely and on full liquid diet for now. Will get repeat abdominal x-ray and CBC tomorrow morning. Continue with IV fluids, pain management. GI DVT prophylaxis. Further recommendations to follow depending on the progress of the patient.
[2020-09-18] MEDS: QUEtiapine 25 MG TAB PO SCH (20:13)
[2020-09-19] MEDS: HYDROmorphone 1 MG/ML 1 ML SYRINGE IVP PRN ×6 (02:26→20:40)
[2020-09-19] MEDS: LEVOTHYROXINE 100 MCG TAB PO SCH (05:19)
[2020-09-19] MEDS: KETOROLAC 15 MG/ML 1 ML VIAL IVP SCH ×4 (05:20→23:11)
[2020-09-19] MEDS: PANTOPRAZOLE 40 MG TABLET PO SCH (07:11)
[2020-09-19] MEDS: HEPARIN SODIUM,PORCINE/PF 5,000 UNIT/0.5 ML SYRINGE SQ SCH ×3 (07:11→23:11)
[2020-09-19] MEDS: DEXTROSE 5%-0.45% NACL 1,000 ML IV SCH (07:12)
--- NOTE | 2020-09-19 08:11 | XR ---
EXAMINATION TYPE: XR abdomen 2V DATE OF EXAM: 09/19/2020 6:27 AM CLINICAL HISTORY: abdominal pain TECHNIQUE: Single supine KUB image of the abdomen is obtained. COMPARISON: None. FINDINGS: Scattered gas is seen in non-distended small bowel loops. Gas, fecal material and oral cont rast material is seen in non-distended colon. There is no visceromegaly, pneumoperitoneum, or abnorm al calcification appreciated. The lung bases are clear. Scoliosis is present with degenerative alfonso es. There are anastomotic sutures in the left abdomen. Left ostomy is present. There are surgical cl ips in the right upper abdomen. IMPRESSION: Overall nonobstructive bowel gas pattern.
[2020-09-19 08:46] LABS: Basophils # (A) 0.04 X 10*3/uL (0.00-0.10); Basophils % (A) 0.7 %; Eosinophils # (A) 0.47 X 10*3/uL (0.04-0.35); Eosinophils % (A) 7.9 %; HCT 33.4 % (37.2-46.3); HGB 10.2 g/dL (12.0-15.0); Lymphocytes # (A) 3.45 X 10*3/uL (0.90-5.00); Lymphocytes % (A) 57.9 %; MCH 28.2 pg (27.0-32.0); MCHC 30.5 g/dL (32.0-37.0); MCV 92.3 fL (80.0-97.0); Mean Platelet Volume 11.8 fL (9.5-12.2); Monocytes # (A) 0.79 X 10*3/uL (0.20-1.00); Monocytes % (A) 13.3 %; Platelet Count 197 X 10*3/uL (140-440); RBC 3.62 X 10*6/uL (4.10-5.20); RDW 15.9 % (11.5-14.5); WBC 5.96 X 10*3/uL (4.50-10.00)
[2020-09-19 09:25] LABS: African American GFR (CKD) 104.1 (60.0-200.0); Blood Urea Nitrogen <5.0 mg/dL (9.0-27.0); Calcium 7.7 mg/dL (8.7-10.3); Carbon Dioxide 23.6 mmol/L (21.6-31.8); Chloride 108 mmol/L (96-109); Glucose 112 mg/dL (70-110); Non-African American GFR(CKD) 89.8 (60.0-200.0); Potassium 4.7 mmol/L (3.5-5.5); Sodium 137 mmol/L (135-145)
--- NOTE | 2020-09-19 12:59 | P.PN ---
Subjective Progress Note Date: 09/19/20 CHIEF COMPLAINT: Abdominal pain with nausea and vomiting HISTORY OF PRESENT ILLNESS: Surgical service is following in regards to patient's possible ileus. Patient is having minimal output through her ostomy. She is still complaining of same abdominal discomfort. Denies any nausea or vomiting. Has had decrease in appetite. Abdominal x-ray had shown nonobstructing bowel gas pattern. She is afebrile. WBC is 9.6 Patient seen and examined with Dr. atkins PHYSICAL EXAM: VITAL SIGNS: Reviewed. GENERAL: Well-developed in no acute distress. HEENT: No sclera icterus. Extraocular movements grossly intact. Moist buccal mucosa. Head is atraumatic, normocephalic. ABDOMEN: Soft. Nondistended. Mild tenderness with palpation of the lower abdomen NEUROLOGIC: Alert and oriented. Cranial nerves II through XII grossly intact. ASSESSMENT: 1. Ileus 2. Abdominal pain with nausea and vomiting 3. History of diverticulitis with mesenteric abscess and adhesions causing a partial small bowel obstruction she is status post sigmoid colectomy with end colostomy and lysis of adhesions on 07/10/2020 4. Chronic constipation PLAN: -Continue full liquid diet -Change lactulose from as needed to scheduled twice a day -Encouraged patient to increase activity Physician [employer] Cutter note has been reviewed by physician. Signing provider agrees with the documented findings, assessment, and plan of care. Objective - Vital Signs Vital signs: Vital Signs Temp 97.8 F 09/19/20 07:57 Pulse 74 09/19/20 07:57 Resp 18 09/19/20 07:57 BP 125/69 09/19/20 11:04 Pulse Ox 98 09/19/20 07:57 Intake & Output 09/18/20 09/19/20 09/19/20 18:59 06:59 18:59 Other: Voiding Method Toilet # Voids 2 3 - Labs CBC & Chem 7: 09/19/20 05:23 09/19/20 05:23 Labs: Abnormal Lab Results - Last 24 Hours (Table) 09/19/20 09/19/20 Range/Units 05:23 05:23 RBC 3.62 L (4.10-5.20) X 10*6/uL Hgb 10.2 L (12.0-15.0) g/dL Hct 33.4 L (37.2-46.3) % MCHC 30.5 L (32.0-37.0) g/dL RDW 15.9 H (11.5-14.5) % Neutrophils # 1.20 L (1.80-7.70) X 10*3/uL Eosinophils # 0.47 H (0.04-0.35) X 10*3/uL BUN <5.0 L (9.0-27.0) mg/dL Glucose 112 H (70-110) mg/dL Calcium 7.7 L (8.7-10.3) mg/dL
[2020-09-19] MEDS ORDERED: LACTULOSE 20 GM/30 ML CUP PO SCH (13:00)
[2020-09-19] MEDS: ONDANSETRON 4 MG/2 ML VIAL IVP PRN (14:30)
[2020-09-19] MEDS: LACTULOSE 20 GM/30 ML CUP PO SCH ×2 (14:35→20:52)
--- NOTE | 2020-09-19 15:12 | P.PN ---
Subjective Progress Note Date: 09/19/20 Principal diagnosis: Intractable nausea vomiting and abdominal discomfort possible small bowel ileus. Ms. Eric is a 74-year-old female with a known history of coronary artery di sease, treated for depression, hypertension, GERD, ulcer disease, chronic low back pain, history of laryngeal cancer 20 years ago, bells palsy, anxiety depression, panic disorder and history of diverticulitis with numbness into Cyst and medications coming into the hospital with a chief complaint of nausea vomiting abdominal pain for 2 days. CAT scan of the abdomen and pelvis showing no acute abdomen. She is currently being treated for possible small bowel ileus. On 09/17/2020- patient was seen and examined at bedside. She complains of abdominal pain mostly in the periumbilical area. Mentions that her nausea is improving. She did have a small stool in her colostomy bag. Patient denies having any fevers chills or rigors. No chest pain or palpitations. No cough or difficulty in breathing. No fevers chills or rigors. On reviewing the vitals temperature 98.1, heart rate 84, respiratory rate 18, blood pressure 166/73, saturating at 97% on room air. Reviewing the labs sodium 1 that is his compression 3.6, chloride 106, bicarb 22, BUN less than 5, creatinine 0.5. On 09/18/2020 - patient feels and examined at the bedside. She continues to have abdominal pain, denies having any nausea or vomiting. She is able to tolerate full liquids. She states that she is small amount of stool in her colostomy bag. Patient denies having any chest pain or palpitations. No fever chills or rigors. No dysuria or hematuria. On reviewing the vitals temperature of 97.8, heart rate 68, respiratory 16 blood pressure 156-68, saturating at 97% on room air. On reviewing the labs white count of 5.8, hemoglobin 9.1, platelets 209. Sodium 137 compression 4, chloride 106, bicarbonate 22, BUN 5, creatinine 0.6. On 09/19/2020- patient is seen and examined at bedside. She continues to comp ade of ongoing abdominal pain. She also reports of having one episode of vomiting earlier this afternoon, no blood in the vomitus. Patient is on clear liquids. She denies having any stool in her colostomy bag. Patient denies having any chest pain or palpitations. No cough or difficulty in breathing. No dysuria or hematuria. No fevers chills or rigors. No acute events reported by nursing staff. On reviewing her vitals temperature of 97.9, heart rate 87, respiratory rate 18, blood pressure 170/87, saturating at 98% on room air. Reviewing her labs from this morning white count of 5.9, hemoglobin 10.2, platelets 197. Sodium 137 compression 4.7, chloride 108, bicarbonate 23, BUN 5, creatinine 0.6 Patient's medications have been reviewed Objective - Vital Signs Vital signs: Vital Signs Temp 97.8 F 09/19/20 07:57 Pulse 74 09/19/20 07:57 Resp 18 09/19/20 07:57 BP 125/69 09/19/20 11:04 Pulse Ox 98 09/19/20 07:57 Intake & Output 09/18/20 09/19/20 09/19/20 18:59 06:59 18:59 Other: Voiding Method Toilet # Voids 2 3 - Exam PHYSICAL EXAMINATION: Patient is lying in the bed comfortably, no acute distress, awake alert and oriented. HEENT: Normocephalic. Neck is supple. Pupils reactive. No pallor. no jvd CHEST EXAMINATION: Trachea is central. Symmetrical expansion. Lung herrera clear to auscultation and percussion. CARDIAC: Normal S1, S2 with no gallops. No murmurs ABDOMEN: Soft. Nondistended. Mild tenderness. Bowel sounds hyperactive. Small amount of stool noted in the colostomy bag. Extremities: reveal no edema. No clubbing or cyanosis Neurologically awake, alert, oriented x3 . No focal deficits noted Psychiatric: Coperative. - Labs CBC & Chem 7: 09/19/20 05:23 09/19/20 05:23 Labs: Abnormal Lab Results - Last 24 Hours (Table) 09/19/20 09/19/20 Range/Units 05:23 05:23 RBC 3.62 L (4.10-5.20) X 10*6/uL Hgb 10.2 L (12.0-15.0) g/dL Hct 33.4 L (37.2-46.3) % MCHC 30.5 L (32.0-37.0) g/dL RDW 15.9 H (11.5-14.5) % Neutrophils # 1.20 L (1.80-7.70) X 10*3/uL Eosinophils # 0.47 H (0.04-0.35) X 10*3/uL BUN <5.0 L (9.0-27.0) mg/dL Glucose 112 H (70-110) mg/dL Calcium 7.7 L (8.7-10.3) mg/dL Assessment and Plan Assessment: ASSESSMENT Intractable nausea vomiting and abdominal discomfort possible small bowel ileus History of diverticulitis with mesenteric abscess and lesions causing partial small bowel obstruction status post sigmoid colectomy and end colostomy and lysis of adhesions on 07/10/2020 Lactic acidosis resolved. Chronic back pain History of peptic ulcer disease GERD Hypertension Osteoarthritis History of coronary disease with no history of PCI Anxiety/depression and panic disorder Hypomagnesemia. Replaced. DVT prophylaxis Heparin subcu. PLAN: Patient continues to have abdominal pain. Patient had an abdominal x-ray done this morning showing nonobstructive bowel gas pattern. Her lactulose has been changed from when necessary to scheduled dose. Surgery following the patient closely and on full liquid diet for now. Continue with IV fluids, pain management. GI DVT prophylaxis. Further recommendations to follow depending on the progress of the patient.
[2020-09-19] MEDS: QUEtiapine 25 MG TAB PO SCH (20:52)
[2020-09-20] MEDS: HYDROmorphone 1 MG/ML 1 ML SYRINGE IVP PRN ×6 (00:14→22:37)
[2020-09-20] MEDS: KETOROLAC 15 MG/ML 1 ML VIAL IVP SCH ×4 (05:15→22:37)
[2020-09-20] MEDS: LEVOTHYROXINE 100 MCG TAB PO SCH (05:16)
[2020-09-20] MEDS: DEXTROSE 5%-0.45% NACL 1,000 ML IV SCH ×2 (05:19→16:09)
[2020-09-20 05:48] LABS: Basophils % (A) 1 %; Eosinophils # (A) 0.4 k/uL (0-0.7); Eosinophils % (A) 9 %; HCT 28.6 % (34.0-46.0); Lymphocytes # (A) 2.3 k/uL (1.0-4.8); Lymphocytes % (A) 52 %; MCH 28.1 pg (25.0-35.0); MCHC 31.5 g/dL (31.0-37.0); MCV 89.1 fL (80.0-100.0); Mean Platelet Volume 7.9; Monocytes # (A) 0.5 k/uL (0-1.0); Monocytes % (A) 12 %; Neutrophils % (A) 22 %; Platelet Count 186 k/uL (150-450); RBC 3.21 m/uL (3.80-5.40); RDW 15.8 % (11.5-15.5); WBC 4.3 k/uL (3.8-10.6)
[2020-09-20 05:52] LABS: African American GFR (CKD) >90 (>60 ml/min/1.73 sqM); Anion Gap 2 mmol/L; Blood Urea Nitrogen 2 mg/dL (7-17); Calcium 7.7 mg/dL (8.4-10.2); Carbon Dioxide 21 mmol/L (22-30); Chloride 112 mmol/L (98-107); Glucose 85 mg/dL (74-99); Non-African American GFR(CKD) >90 (>60 ml/min/1.73 sqM); Potassium 3.8 mmol/L (3.5-5.1); Sodium 135 mmol/L (137-145)
[2020-09-20] MEDS: HEPARIN SODIUM,PORCINE/PF 5,000 UNIT/0.5 ML SYRINGE SQ SCH ×3 (09:34→22:38)
[2020-09-20] MEDS: PANTOPRAZOLE 40 MG TABLET PO SCH (09:34)
[2020-09-20] MEDS: LACTULOSE 20 GM/30 ML CUP PO SCH ×3 (09:35→20:48)
--- NOTE | 2020-09-20 14:36 | P.PN ---
Subjective Progress Note Date: 09/20/20 CHIEF COMPLAINT: Abdominal pain with nausea and vomiting HISTORY OF PRESENT ILLNESS: Surgical service is following in regards to patient's possible ileus. Patient has had improvement with ostomy output since taking the lactulose. She still complains of the same abdominal plain. She denies any nausea or vomiting. Afebrile. WBC is 4.3 hemoglobin 9, on a full liquid diet. Patient seen and examined with Dr. atkins PHYSICAL EXAM: VITAL SIGNS: Reviewed. GENERAL: Well-developed in no acute distress. HEENT: No sclera icterus. Extraocular movements grossly intact. Moist buccal mucosa. Head is atraumatic, normocephalic. ABDOMEN: Soft. Nondistended. Mild tenderness with palpation of the lower abdomen NEUROLOGIC: Alert and oriented. Cranial nerves II through XII grossly intact. ASSESSMENT: 1. Ileus 2. Abdominal pain with nausea and vomiting 3. History of diverticulitis with mesenteric abscess and adhesions causing a partial small bowel obstruction she is status post sigmoid colectomy with end colostomy and lysis of adhesions on 07/10/2020 4. Chronic constipation PLAN: -Continue full liquid diet -Continue lactulose 3 times a day -Encouraged patient to increase activity Physician Route Vending Machine Servicer note has been reviewed by physician. Signing provider agrees with the documented findings, assessment, and plan of care. Objective - Vital Signs Vital signs: Vital Signs Temp 98.4 F 09/20/20 08:22 Pulse 80 09/20/20 08:22 Resp 18 09/20/20 08:22 BP 153/72 09/20/20 08:22 Pulse Ox 97 09/20/20 08:22 Intake & Output 09/19/20 09/20/20 09/20/20 18:59 06:59 18:59 Intake Total 800 Output Total 1 Balance -1 800 Weight 81.647 kg Intake: Intake, IV Titration 800 Amount Dextrose 5%-0.45% NaCl 1, 800 000 ml @ 80 mls/hr IV . [id number] [facility] Rx#:[id number] Output: Emesis 1 Other: Voiding Method Toilet # Voids 1 4 # Bowel Movements 1 1 - Labs CBC & Chem 7: 09/20/20 05:07 09/20/20 05:07 Labs: Abnormal Lab Results - Last 24 Hours (Table) 06/15/21 06/15/21 Range/Units 05:07 05:07 RBC 3.21 L (3.80-5.40) m/uL Hgb 9.0 L D (11.4-16.0) gm/dL Hct 28.6 L (34.0-46.0) % RDW 15.8 H (11.5-15.5) % Neutrophils # 1.0 L (1.3-7.7) k/uL Sodium 135 L (137-145) mmol/L Chloride 112 H (98-107) mmol/L Carbon Dioxide 21 L (22-30) mmol/L BUN 2 L (7-17) mg/dL Creatinine 0.48 L (0.52-1.04) mg/dL Calcium 7.7 L (8.4-10.2) mg/dL
[2020-09-20] MEDS: ONDANSETRON 4 MG/2 ML VIAL IVP PRN (18:17)
[2020-09-20] MEDS: QUEtiapine 25 MG TAB PO SCH (20:48)
[2020-09-21] MEDS: HYDROmorphone 1 MG/ML 1 ML SYRINGE IVP PRN ×6 (01:54→19:50)
[2020-09-21] MEDS: LEVOTHYROXINE 100 MCG TAB PO SCH (05:12)
[2020-09-21] MEDS: KETOROLAC 15 MG/ML 1 ML VIAL IVP SCH ×3 (05:12→17:30)
[2020-09-21] MEDS: DEXTROSE 5%-0.45% NACL 1,000 ML IV SCH ×3 (05:15→23:14)
[2020-09-21] MEDS: LACTULOSE 20 GM/30 ML CUP PO SCH ×5 (08:18→21:26)
[2020-09-21] MEDS: PANTOPRAZOLE 40 MG TABLET PO SCH (08:18)
[2020-09-21] MEDS: HEPARIN SODIUM,PORCINE/PF 5,000 UNIT/0.5 ML SYRINGE SQ SCH ×2 (08:18→15:51)
--- NOTE | 2020-09-21 11:57 | P.PN ---
Subjective Progress Note Date: 09/21/20 CHIEF COMPLAINT: Abdominal pain with nausea and vomiting HISTORY OF PRESENT ILLNESS: Surgical service is following in regards to patient's possible ileus. Patient has had improvement with ostomy output since taking the lactulose. She still complains of the same abdominal plain. She describes her abdominal as sharp lower abdominal pain. She has had very liquidy yellowish stool through ostomy. She refused lactulose this morning. She did have one episode of vomiting yesterday after lunch. She is currently on a full liquid diet. Afebrile. No new labs Patient seen and examined with Dr. atkins PHYSICAL EXAM: VITAL SIGNS: Reviewed. GENERAL: Well-developed in no acute distress. HEENT: No sclera icterus. Extraocular movements grossly intact. Moist buccal mucosa. Head is atraumatic, normocephalic. ABDOMEN: Soft. Nondistended. Mild tenderness with palpation of the lower abdomen NEUROLOGIC: Alert and oriented. Cranial nerves II through XII grossly intact. ASSESSMENT: 1. Ileus 2. Abdominal pain with nausea and vomiting 3. History of diverticulitis with mesenteric abscess and adhesions causing a partial small bowel obstruction she is status post sigmoid colectomy with end co lostomy and lysis of adhesions on 07/10/2020 4. Chronic constipation PLAN: -advance diet to regular -Continue lactulose 3 times a day -Encouraged patient to increase activity Physician Heating Engineer note has been reviewed by physician. Signing provider agrees with the documented findings, assessment, and plan of care. Objective - Vital Signs Vital signs: Vital Signs Temp 98.1 F 09/21/20 08:15 Pulse 92 09/21/20 08:15 Resp 18 09/21/20 08:15 BP 143/78 09/21/20 08:15 Pulse Ox 98 09/21/20 08:15 Intake & Output 09/20/20 09/21/20 09/21/20 18:59 06:59 18:59 Intake Total 960 Balance 960 Weight 81.647 kg Intake: Intake, IV Titration 960 Amount Dextrose 5%-0.45% NaCl 1, 960 000 ml @ 80 mls/hr IV . [id number] [facility] Rx#:[id number] Other: Voiding Method Toilet Toilet # Voids 6 # Bowel Movements 5 2 - Labs CBC & Chem 7: 09/20/20 05:07 09/20/20 05:07
[2020-09-21] MEDS: ONDANSETRON 4 MG/2 ML VIAL IVP PRN (13:41)
[2020-09-21] MEDS: MAG HYDROX/AL HYDROX/SIMETH 30 ML, LIDOCAINE VISCOUS 30 ML, diphenhydrAMINE ELIXIR 75 M... PO SCH ×8 (17:24→21:23)
[2020-09-21] MEDS: QUEtiapine 25 MG TAB PO SCH (21:22)
[2020-09-21] MEDS: ACETAMINOPHEN TAB 325 MG TAB PO PRN (21:22)
--- NOTE | 2020-09-21 23:22 | P.PN ---
Subjective Progress Note Date: 09/20/20 Principal diagnosis: Intractable nausea vomiting and abdominal discomfort possible small bowel ileus. resolved Patient is a 74-year-old female with a known history of coronary artery disease, atrial fibrillation, hypertension, GERD, peptic ulcer disease, chronic back pain, history of laryngeal cancer 20 years ago, Guzman's palsy, anxiety/depression and panic disorder and history of diverticulitis with mesenteric abscess and adhesions causing partial small bowel obstruction and other multiple medical problems presents to ER with the complaints of nausea and vomiting and abdominal pain for the past 2 days. Abdominal pain is mainly in the mid abdominal region. Patient states that she did have diarrhea few days ago. No complaints of chest pain or shortness of. No fever no chills. Chest x-ray showed no active cardiopulmonary disease. There is clearing of atelectasis in both lung herrera compared to old exam. EKG showed sinus tachycardia with PVCs. CT of the abdomen pelvis showed previous surgeries. No sign of acute abdomen pelvis. No adverse change compared to old exam. Laboratory showed WBC 8.3 hemoglobin 12.6 and platelets 269 Bicarb is 17 BUN 16 creatinine 0.56 and lactic acid 4.4 magnesium 1.5 09/16/2020 Patient is currently resting in the bed awake alert oriented x3. Nausea and abdominal pain is improving. Patient did have a small bowel in the colostomy bag. NG tube has been discontinued and patient was started on full liquid diet. No headache or dizziness or lightheadedness. No chest pain or shortness breath. No fever no chills. General surgery is on board. On 09/17/2020- patient was seen and examined at bedside. She complains of abdominal pain mostly in the periumbilical area. Mentions that her nausea is improving. She did have a small stool in her colostomy bag. Patient denies having any fevers chills or rigors. No chest pain or palpitations. No cough or difficulty in breathing. No fevers chills or rigors. On reviewing the vitals temperature 98.1, heart rate 84, respiratory rate 18, blood pressure 166/73, saturating at 97% on room air. Reviewing the labs sodium 1 that is his compression 3.6, chloride 106, bicarb 22, BUN less than 5, creatinine 0.5. On 09/18/2020 - patient feels and examined at the bedside. She continues to have abdominal pain, denies having any nausea or vomiting. She is able to tolerate full liquids. She states that she is small amount of stool in her colostomy bag. Patient denies having any chest pain or palpitations. No fever chills or rigors. No dysuria or hematuria. On reviewing the vitals temperature of 97.8, heart rate 68, respiratory 16 blood pressure 156-68, saturating at 97% on room air. On reviewing the labs white count of 5.8, hemoglobin 9.1, platelets 209. Sodium 137 compression 4, chloride 106, bicarbonate 22, BUN 5, creatinine 0.6. On 09/19/2020- patient is seen and examined at bedside. She continues to complain of ongoing abdominal pain. She also reports of having one episode of vomiting earlier this afternoon, no blood in the vomitus. Patient is on clear liquids. She denies having any stool in her colostomy bag. Patient denies having any chest pain or palpitations. No cough or difficulty in breathing. No dysuria or hematuria. No fevers chills or rigors. No acute events reported by nursing staff. On reviewing her vitals temperature of 97.9, heart rate 87, respiratory rate 18, blood pressure 170/87, saturating at 98% on room air. Reviewing her labs from this morning white count of 5.9, hemoglobin 10.2, platelets 197. Sodium 137 compression 4.7, chloride 108, bicarbonate 23, BUN 5, creatinine 0.6 09/20/2020 Patient is Still complaining of abdominal pain. Patient did have one episode of vomiting nonbilious after lunch today. patient is clear liquid diet. Currently on lactulose. Did have liquid stool in the colostomy bag. No complaints of fever or chills. No chest pain or shortness of breath. No headache or dizziness or lightheadedness. Laboratory showed WBC 4.3 hemoglobin 9.0 platelets 186 sodium 135 potassium 3.8 chloride 112 bicarb is 21 BUN 20 creatinine 0.48 and calcium 7.7 surgery is on board. Current medications reviewed. Objective - Vital Signs Vital signs: Vital Signs Temp 98.0 F 09/20/20 13:53 Pulse 86 09/20/20 13:53 Resp 16 09/20/20 13:53 BP 143/84 09/20/20 13:53 Pulse Ox 98 09/20/20 13:53 Intake & Output 09/19/20 09/20/20 09/20/20 18:59 06:59 18:59 Intake Total 800 Output Total 1 Balance -1 800 Weight 81.647 kg Intake: Intake, IV Titration 800 Amount Dextrose 5%-0.45% NaCl 1, 800 000 ml @ 80 mls/hr IV . [id number] [facility] Rx#:[id number] Output: Emesis 1 Other: Voiding Method Toilet # Voids 1 4 # Bowel Movements 1 1 - Exam PHYSICAL EXAMINATION: Patient is lying in the bed comfortably, no acute distress, awake alert and oriented. HEENT: Normocephalic. Neck is supple. Pupils reactive. No pallor. no jvd CHEST EXAMINATION: Trachea is central. Symmetrical expansion. Lung herrera clear to auscultation and percussion. CARDIAC: Normal S1, S2 with no gallops. No murmurs ABDOMEN: Soft. Nondistended. Mild tenderness. Bowel sounds hyperactive. liquid stool noted in the colostomy bag. Extremities: reveal no edema. No clubbing or cyanosis Neurologically awake, alert, oriented x3 . No focal deficits noted Psychiatric: Coperative. - Labs CBC & Chem 7: 09/20/20 05:07 09/20/20 05:07 Labs: Abnormal Lab Results - Last 24 Hours (Table) 09/20/20 09/20/20 Range/Units 05:07 05:07 RBC 3.21 L (3.80-5.40) m/uL Hgb 9.0 L D (11.4-16.0) gm/dL Hct 28.6 L (34.0-46.0) % RDW 15.8 H (11.5-15.5) % Neutrophils # 1.0 L (1.3-7.7) k/uL Sodium 135 L (137-145) mmol/L Chloride 112 H (98-107) mmol/L Carbon Dioxide 21 L (22-30) mmol/L BUN 2 L (7-17) mg/dL Creatinine 0.48 L (0.52-1.04) mg/dL Calcium 7.7 L (8.4-10.2) mg/dL Assessment and Plan Assessment: Intractable nausea vomiting and abdominal discomfort possible small bowel ileus History of diverticulitis with mesenteric abscess and lesions causing partial small bowel obstruction status post sigmoid colectomy and end colostomy and lysis of adhesions on 07/10/2020 Lactic acidosis resolved. Chronic back pain History of peptic ulcer disease GERD Hypertension Osteoarthritis History of coronary disease with no history of PCI Anxiety/depression and panic disorder Hypomagnesemia. Replaced. DVT prophylaxis Heparin subcu. PLAN: Patient continues to have abdominal pain. Patient had an abdominal x-ray done on 09/19 showing nonobstructive bowel gas pattern. Her lactulose has been changed from when necessary to scheduled dose. Surgery following the patient closely and on full liquid diet for now. Continue with IV fluids, pain management. GI DVT prophylaxis. Further recommendations to follow depending on the progress of the patient.
--- NOTE | 2020-09-21 23:24 | P.PN ---
Subjective Progress Note Date: 09/21/20 Principal diagnosis: Intractable nausea vomiting and abdominal discomfort possible small bowel ileus. resolved Patient is a 74-year-old female with a known history of coronary artery disease, atrial fibrillation, hypertension, GERD, peptic ulcer disease, chronic back pain, history of laryngeal cancer 20 years ago, Guzman's palsy, anxiety/depression and panic disorder and history of diverticulitis with mesenteric abscess and adhesions causing partial small bowel obstruction and other multiple medical problems presents to ER with the complaints of nausea and vomiting and abdominal pain for the past 2 days. Abdominal pain is mainly in the mid abdominal region. Patient states that she did have diarrhea few days ago. No complaints of chest pain or shortness of. No fever no chills. Chest x-ray showed no active cardiopulmonary disease. There is clearing of atelectasis in both lung herrera compared to old exam. EKG showed sinus tachycardia with PVCs. CT of the abdomen pelvis showed previous surgeries. No sign of acute abdomen pelvis. No adverse change compared to old exam. Laboratory showed WBC 8.3 hemoglobin 12.6 and platelets 269 Bicarb is 17 BUN 16 creatinine 0.56 and lactic acid 4.4 magnesium 1.5 09/16/2020 Patient is currently resting in the bed awake alert oriented x3. Nausea and abdominal pain is improving. Patient did have a small bowel in the colostomy bag. NG tube has been discontinued and patient was started on full liquid diet. No headache or dizziness or lightheadedness. No chest pain or shortness breath. No fever no chills. General surgery is on board. On 09/17/2020- patient was seen and examined at bedside. She complains of abdominal pain mostly in the periumbilical area. Mentions that her nausea is improving. She did have a small stool in her colostomy bag. Patient denies having any fevers chills or rigors. No chest pain or palpitations. No cough or difficulty in breathing. No fevers chills or rigors. On reviewing the vitals temperature 98.1, heart rate 84, respiratory rate 18, blood pressure 166/73, saturating at 97% on room air. Reviewing the labs sodium 1 that is his compression 3.6, chloride 106, bicarb 22, BUN less than 5, creatinine 0.5. On 09/18/2020 - patient feels and examined at the bedside. She continues to have abdominal pain, denies having any nausea or vomiting. She is able to tolerate full liquids. She states that she is small amount of stool in her colostomy bag. Patient denies having any chest pain or palpitations. No fever chills or rigors. No dysuria or hematuria. On reviewing the vitals temperature of 97.8, heart rate 68, respiratory 16 blood pressure 156-68, saturating at 97% on room air. On reviewing the labs white count of 5.8, hemoglobin 9.1, platelets 209. Sodium 137 compression 4, chloride 106, bicarbonate 22, BUN 5, creatinine 0.6. On 09/19/2020- patient is seen and examined at bedside. She continues to complain of ongoing abdominal pain. She also reports of having one episode of vomiting earlier this afternoon, no blood in the vomitus. Patient is on clear liquids. She denies having any stool in her colostomy bag. Patient denies having any chest pain or palpitations. No cough or difficulty in breathing. No dysuria or hematuria. No fevers chills or rigors. No acute events reported by nursing staff. On reviewing her vitals temperature of 97.9, heart rate 87, respiratory rate 18, blood pressure 170/87, saturating at 98% on room air. Reviewing her labs from this morning white count of 5.9, hemoglobin 10.2, platelets 197. Sodium 137 compression 4.7, chloride 108, bicarbonate 23, BUN 5, creatinine 0.6 09/20/2020 Patient is Still complaining of abdominal pain. Patient did have one episode of vomiting nonbilious after lunch today. patient is clear liquid diet. Currently on lactulose. Did have liquid stool in the colostomy bag. No complaints of fever or chills. No chest pain or shortness of breath. No headache or dizziness or lightheadedness. Laboratory showed WBC 4.3 hemoglobin 9.0 platelets 186 sodium 135 potassium 3.8 chloride 112 bicarb is 21 BUN 20 creatinine 0.48 and calcium 7.7 surgery is on board. 09/21/2020 Patient is still complains of abdominal pain mainly in the mid abdomen around umbilical area. Was able to tolerate liquid diet but very limited quantities. No episodes of vomiting today. Yellowish liquidy stool noted in the ostomy bag. Patient refused to take lactulose this morning. Patient was able to walk in the hallway this afternoon. No complaints of chest pain or shortness of breath. No nausea or episodes of vomiting. No dysuria or hematuria. Patient has been afebrile. Hemodynamically stable. General surgery is following. Advance diet to regular diet. Current medications reviewed. Objective - Vital Signs Vital signs: Vital Signs Temp 98.5 F 09/21/20 20:00 Pulse 82 09/21/20 20:00 Resp 16 09/21/20 20:00 BP 144/78 09/21/20 20:00 Pulse Ox 97 09/21/20 20:00 Intake & Output 09/21/20 09/21/20 09/22/20 06:59 18:59 06:59 Intake Total 960 200 Balance 960 200 Intake: Intake, IV Titration 960 Amount Dextrose 5%-0.45% NaCl 1, 960 000 ml @ 80 mls/hr IV . [id number] [facility] Rx#:[id number] Oral 200 Other: Voiding Method Toilet Toilet # Voids 6 1 1 # Bowel Movements 2 - Exam PHYSICAL EXAMINATION: Patient is lying in the bed comfortably, no acute distress, awake alert and oriented. HEENT: Normocephalic. Neck is supple. Pupils reactive. No pallor. no jvd CHEST EXAMINATION: Trachea is central. Symmetrical expansion. Lung herrera clear to auscultation and percussion. CARDIAC: Normal S1, S2 with no gallops. No murmurs ABDOMEN: Soft. Nondistended. Mild tenderness. Bowel sounds hyperactive. liquid stool noted in the colostomy bag. Extremities: reveal no edema. No clubbing or cyanosis Neurologically awake, alert, oriented x3 . No focal deficits noted Psychiatric: Coperative. - Labs CBC & Chem 7: 09/20/20 05:07 09/20/20 05:07 Assessment and Plan Assessment: Intractable nausea vomiting and abdominal discomfort possible small bowel ileus History of diverticulitis with mesenteric abscess and lesions causing partial small bowel obstruction status post sigmoid colectomy and end colostomy and lysis of adhesions on 07/10/2020 Lactic acidosis resolved. Chronic back pain History of peptic ulcer disease GERD Hypertension Osteoarthritis History of coronary disease with no history of PCI Anxiety/depression and panic disorder Hypomagnesemia. Replaced. DVT prophylaxis Heparin subcu. PLAN: Patient continues to have abdominal pain. Patient had an abdominal x-ray done on 09/19 showing nonobstructive bowel gas pattern. Her lactulose has been changed from when necessary to scheduled dose. Surgery following the patient closely and on full liquid diet for now. Continue with IV fluids, pain management. GI DVT prophylaxis. Further recommendations to follow depending on the progress of the patient. Time with Patient: Greater than 30
[2020-09-22] MEDS: HYDROmorphone 1 MG/ML 1 ML SYRINGE IVP PRN ×5 (00:03→17:09)
[2020-09-22] MEDS: HEPARIN SODIUM,PORCINE/PF 5,000 UNIT/0.5 ML SYRINGE SQ SCH ×3 (00:04→15:40)
[2020-09-22] MEDS: KETOROLAC 15 MG/ML 1 ML VIAL IVP SCH ×3 (01:19→12:17)
[2020-09-22 05:37] LABS: Basophils % (A) 1 %; Eosinophils # (A) 0.3 k/uL (0-0.7); Eosinophils % (A) 7 %; HCT 27.3 % (34.0-46.0); HGB 9.1 gm/dL (11.4-16.0); Lymphocytes # (A) 2.1 k/uL (1.0-4.8); Lymphocytes % (A) 50 %; MCH 30.1 pg (25.0-35.0); MCHC 33.5 g/dL (31.0-37.0); MCV 89.8 fL (80.0-100.0); Mean Platelet Volume 7.7; Monocytes # (A) 0.6 k/uL (0-1.0); Monocytes % (A) 14 %; Neutrophils # (A) 1.1 k/uL (1.3-7.7); Neutrophils % (A) 26 %; Platelet Count 175 k/uL (150-450); RBC 3.04 m/uL (3.80-5.40); RDW 15.7 % (11.5-15.5); WBC 4.2 k/uL (3.8-10.6)
[2020-09-22 05:46] LABS: African American GFR (CKD) >90 (>60 ml/min/1.73 sqM); Anion Gap 1 mmol/L; Blood Urea Nitrogen <2 mg/dL (7-17); Calcium 8.1 mg/dL (8.4-10.2); Carbon Dioxide 24 mmol/L (22-30); Chloride 109 mmol/L (98-107); Glucose 88 mg/dL (74-99); Non-African American GFR(CKD) >90 (>60 ml/min/1.73 sqM); Potassium 4.3 mmol/L (3.5-5.1); Sodium 134 mmol/L (137-145)
[2020-09-22] MEDS: LEVOTHYROXINE 100 MCG TAB PO SCH (06:34)
[2020-09-22] MEDS: MAG HYDROX/AL HYDROX/SIMETH 30 ML, LIDOCAINE VISCOUS 30 ML, diphenhydrAMINE ELIXIR 75 M... PO SCH ×4 (08:59)
[2020-09-22] MEDS: ACETAMINOPHEN TAB 325 MG TAB PO PRN (09:00)
[2020-09-22] MEDS: LACTULOSE 20 GM/30 ML CUP PO SCH ×3 (09:00→21:02)
[2020-09-22] MEDS: PANTOPRAZOLE 40 MG TABLET PO SCH (09:00)
[2020-09-22] MEDS: DEXTROSE 5%-0.45% NACL 1,000 ML IV SCH (09:38)
[2020-09-22] MEDS: HYDROcodone/APAP 10-325MG 1 EACH TAB PO PRN ×4 (10:09→22:09)
--- NOTE | 2020-09-22 11:13 | P.PN ---
Subjective Progress Note Date: 09/22/20 CHIEF COMPLAINT: Abdominal pain with nausea and vomiting HISTORY OF PRESENT ILLNESS: Surgical service is following in regards to patient's possible ileus. Patient has had improvement with ostomy output since taking the lactulose. She still complains of the same abdominal plain. She describes her abdominal as sharp lower abdominal pain. She has had very liquidy yellowish stool through ostomy. Patient had refused her lactulose yesterday due to very liquidy yellowish stool. However she has had decrease in her stool output. She is again agreeable to taking the lactulose. She was able to eat small amounts of egg this morning. She had still been using the IV Dilaudid. She does take Cordova's regularly at home. She's had no further vomiting. Did have some nausea. Afebrile. WBC 4.2 hemoglobin 9.1 platelets 175 sodium 134 potassium 4.3 creatinine 0.55 Patient seen and examined with Dr. Burt PHYSICAL EXAM: VITAL SIGNS: Reviewed. GENERAL: Well-developed in no acute distress. HEENT: No sclera icterus. Extraocular movements grossly intact. Moist buccal mucosa. Head is atraumatic, normocephalic. ABDOMEN: Soft. Nondistended. Mild tenderness with palpation of the lower abdomen at old incisions chronic incisional wound no drainage. It is healing. NEUROLOGIC: Alert and oriented. Cranial nerves II through XII grossly intact. ASSESSMENT: 1. Ileus 2. Abdominal pain with nausea and vomiting 3. History of diverticulitis with mesenteric abscess and adhesions causing a partial small bowel obstruction she is status post sigmoid colectomy with end colostomy and lysis of adhesions on 07/10/2020 4. Chronic constipation PLAN: -Continue regular diet -Encouraged patient to continue lactulose 3 times a day -Encouraged patient to increase activity -We will place patient back on her home dose of Cordova -Discussed with nursing staff that the Dilaudid is only for breakthrough pain. Patient should be using her Cordova for pain control. We will change Dilaudid frequency from every 3 hours to every 6 hours as needed for breakthrough pain Physician Enamel Sprayer note has been reviewed by physician. Signing provider agrees with the documented findings, assessment, and plan of care. Objective - Vital Signs Vital signs: Vital Signs Temp 97.7 F 09/22/20 08:10 Pulse 89 09/22/20 08:10 Resp 16 09/22/20 08:10 BP 118/65 09/22/20 08:10 Pulse Ox 96 09/22/20 08:10 Intake & Output 09/21/20 09/22/20 09/22/20 18:59 06:59 18:59 Intake Total 200 60 Balance 200 60 Intake: Oral 200 60 Other: Voiding Method Toilet # Voids 1 1 2 # Bowel Movements 1 - Labs CBC & Chem 7: 09/22/20 05:14 09/22/20 05:14 Labs: Abnormal Lab Results - Last 24 Hours (Table) 09/22/20 09/22/20 Range/Units 05:14 05:14 RBC 3.04 L (3.80-5.40) m/uL Hgb 9.1 L (11.4-16.0) gm/dL Hct 27.3 L (34.0-46.0) % RDW 15.7 H (11.5-15.5) % Neutrophils # 1.1 L (1.3-7.7) k/uL Sodium 134 L (137-145) mmol/L Chloride 109 H (98-107) mmol/L BUN <2 L (7-17) mg/dL Calcium 8.1 L (8.4-10.2) mg/dL
[2020-09-22] MEDS ORDERED: MAG HYDROX/AL HYDROX/SIMETH 30 ML, LIDOCAINE VISCOUS 30 ML, diphenhydrAMINE ELIXIR 75 M... PO PRN ×4 (12:04)
[2020-09-22] MEDS: LORazepam 0.5 MG TAB PO PRN ×2 (14:47→21:35)
[2020-09-22] MEDS ORDERED: LORazepam 0.5 MG TAB PO SCH (21:00)
[2020-09-22] MEDS: QUEtiapine 25 MG TAB PO SCH (21:02)
[2020-09-22] MEDS: ONDANSETRON 4 MG/2 ML VIAL IVP PRN (21:45)
[2020-09-23] MEDS: HEPARIN SODIUM,PORCINE/PF 5,000 UNIT/0.5 ML SYRINGE SQ SCH ×3 (01:20→15:00)
[2020-09-23] MEDS: HYDROcodone/APAP 10-325MG 1 EACH TAB PO PRN ×4 (03:43→19:59)
[2020-09-23] MEDS: LEVOTHYROXINE 100 MCG TAB PO SCH (05:46)
[2020-09-23] MEDS: PANTOPRAZOLE 40 MG TABLET PO SCH (08:30)
[2020-09-23] MEDS: LORazepam 0.5 MG TAB PO PRN ×2 (08:30→20:41)
[2020-09-23] MEDS: MAG HYDROX/AL HYDROX/SIMETH 30 ML, LIDOCAINE VISCOUS 30 ML, diphenhydrAMINE ELIXIR 75 M... PO PRN ×12 (08:31→22:36)
[2020-09-23] MEDS: LACTULOSE 20 GM/30 ML CUP PO SCH ×3 (08:32→21:43)
[2020-09-23] MEDS: DEXTROSE 5%-0.45% NACL 1,000 ML IV SCH ×2 (08:34→21:45)
[2020-09-23] MEDS: ONDANSETRON 4 MG/2 ML VIAL IVP PRN ×3 (09:07→20:00)
[2020-09-23] MEDS: MORPHINE SULFATE ER 15 MG TABLET PO PRN ×2 (10:24→22:34)
--- NOTE | 2020-09-23 11:25 | P.PN ---
Subjective Progress Note Date: 09/23/20 CHIEF COMPLAINT: Abdominal pain with nausea and vomiting HISTORY OF PRESENT ILLNESS: Surgical service is following in regards to patient's possible ileus. Patient reports having stool through her ostomy when she takes the lactulose. Initially anticipating discharge this morning. However, patient did vomit after eating breakfast. We'll hold off on discharge due to patient's vomiting. Patient had no new increase in her abdominal pain. Patient does have known chronic abdominal pain. Her home pain medications have been restarted. She is afebrile. Currently on a regular diet. WBC from yesterday was 4. Patient seen and examined with Dr. Burt PHYSICAL EXAM: VITAL SIGNS: Reviewed. GENERAL: Well-developed in no acute distress. HEENT: No sclera icterus. Extraocular movements grossly intact. Moist buccal mucosa. Head is atraumatic, normocephalic. ABDOMEN: Soft. Nondistended. Mild tenderness with palpation of the lower abdomen at old incisions NEUROLOGIC: Alert and oriented. Cranial nerves II through XII grossly intact. ASSESSMENT: 1. Ileus 2. Abdominal pain with nausea and vomiting 3. History of diverticulitis with mesenteric abscess and adhesions causing a partial small bowel obstruction she is status post sigmoid colectomy with end colostomy and lysis of adhesions on 07/10/2020 4. Chronic constipation PLAN: -Hold off on discharging patient today due to her vomiting. Continue to monitor and reassess in the morning. -Continue regular diet -Encouraged patient to continue lactulose 3 times a day -Encouraged patient to increase activity -Patient's MS Contin has also been resumed -Continue Ativan as needed for anxiety. Patient does report taking Ativan at h ome [employer] note has been reviewed by physician. Signing provider agrees with the documented findings, assessment, and plan of care. Objective - Vital Signs Vital signs: Vital Signs Temp 97.8 F 09/23/20 08:35 Pulse 99 09/23/20 08:35 Resp 18 09/23/20 08:35 BP 162/86 09/23/20 08:35 Pulse Ox 95 09/23/20 08:35 Intake & Output 09/22/20 09/23/20 09/23/20 18:59 06:59 18:59 Intake Total 800 Balance 800 Weight 81.647 kg Intake: Intake, IV Titration 800 Amount Dextrose 5%-0.45% NaCl 1, 800 000 ml @ 80 mls/hr IV . [id number] [facility] Rx#:[id number] Other: Voiding Method Toilet # Voids 3 4 2 # Bowel Movements 2 2 1 - Labs CBC & Chem 7: 09/22/20 05:14 09/22/20 05:14
[2020-09-23] MEDS: lisinopriL 20 MG TAB PO SCH (14:05)
--- NOTE | 2020-09-23 14:14 | CDI ---
Documentation Clarification Form Date: 09/23/2020 02:03:10 PM From: Tanja MenesesGABE, CCDS Admit Date: 09/14/2020 11:23:00 PM Patient Name: Tanja Ramirez Visit Number: [id number] Discharge Date: ATTENTION: The Clinical Documentation Specialists (CDI) and [facility] Coding Staff appreciate your assistance in clarifying documentation. Please respond to the clarification below the line at the bottom and electronically sign. The CDI & [facility] Coding staff will review the response and follow-up if needed. Please note: Queries are made part of the Legal Health Record. If you have any questions, please contact the author of this message via ITS. Dr. George Gamble: Ileus is documented throughout the record beginning on 09/15 in the H/P. Per the H/P and subsequent notes the patient has a history of diverticulitis with mesenteric abscess and lesions causing partial small bowel obstruction status post sigmoid colectomy and end colostomy and lysis of adhesions on 07/10/2020. Additional clarification is requested regarding the relationship, if any, that exists between the diagnosis of Ileus and the 07/10 bowel surgery. History/Risk Factors per the 09/15 H/P: Diverticulitis status post Sigmoid Colectomy & Colostomy with Lysis of Adhesions (07/10/2020), Peptic Ulcer Disease, Hypertension, Hypomagnesemia, Chronic back pain, GERD. Clinical Indicators: Presented to the ED on 09/14 via EMS with Nausea, Vomiting, Diarrhea. Admitted with Intractable Nausea, Vomiting & Abdominal pain and possible Small Bowel Ileus. 09/14 Ct Abdomen/Pelvis: Previous surgeries. No sign of acute abdomen and pelvis. No adverse change compared to old exam. 09/15 CT Abdomen/Pelvis: No bowel obstruction. No significant change from CT one day earlier. Treatment 09/14: IV Morphine, IV NaCl 1,000 mls @ 130 mls/hr q7H, IV Ativan, IV Protonix, IV Dilaudid, IV Dextrose/Na Cl, IV MagSulfate, IV Toradol, po Lactulose, IV Zofran, NGT. What relationship, if any, exists between the diagnosis of Ileus and the previous Colectomy & Colostomy on 07/10/2020. [ ] Ileus is a complication of surgical procedure [ ] Ileus is an expected outcome of the surgical procedure [ ] Ileus is related to patients co-morbid condition(s) of [insert co-morbid dxs] & not a complication of the procedure [ ] Other please specify [X] Unable to determine (Template Last Revised: June 2020) MTDD
[2020-09-23] MEDS: HYDROmorphone 1 MG/ML 1 ML SYRINGE IVP PRN (18:43)
[2020-09-23] MEDS: QUEtiapine 25 MG TAB PO SCH (20:41)
[2020-09-24] MEDS: HEPARIN SODIUM,PORCINE/PF 5,000 UNIT/0.5 ML SYRINGE SQ SCH ×4 (00:05→23:49)
[2020-09-24] MEDS: ONDANSETRON 4 MG/2 ML VIAL IVP PRN ×4 (01:10→20:21)
[2020-09-24] MEDS: HYDROcodone/APAP 10-325MG 1 EACH TAB PO PRN ×4 (01:42→20:23)
--- NOTE | 2020-09-24 01:44 | P.PN ---
Subjective Progress Note Date: 09/22/20 Principal diagnosis: Intractable nausea vomiting and abdominal discomfort possible small bowel ileus. resolved Patient is a 74-year-old female with a known history of coronary artery disease, atrial fibrillation, hypertension, GERD, peptic ulcer disease, chronic back pain, history of laryngeal cancer 20 years ago, Guzman's palsy, anxiety/depression and panic disorder and history of diverticulitis with mesenteric abscess and adhesions causing partial small bowel obstruction and other multiple medical problems presents to ER with the complaints of nausea and vomiting and abdominal pain for the past 2 days. Abdominal pain is mainly in the mid abdominal region. Patient states that she did have diarrhea few days ago. No complaints of chest pain or shortness of. No fever no chills. Chest x-ray showed no active cardiopulmonary disease. There is clearing of atelectasis in both lung herrera compared to old exam. EKG showed sinus tachycardia with PVCs. CT of the abdomen pelvis showed previous surgeries. No sign of acute abdomen pelvis. No adverse change compared to old exam. Laboratory showed WBC 8.3 hemoglobin 12.6 and platelets 269 Bicarb is 17 BUN 16 creatinine 0.56 and lactic acid 4.4 magnesium 1.5 09/16/2020 Patient is currently resting in the bed awake alert oriented x3. Nausea and abdominal pain is improving. Patient did have a small bowel in the colostomy bag. NG tube has been discontinued and patient was started on full liquid diet. No headache or dizziness or lightheadedness. No chest pain or shortness breath. No fever no chills. General surgery is on board. On 09/17/2020- patient was seen and examined at bedside. She complains of abdominal pain mostly in the periumbilical area. Mentions that her nausea is improving. She did have a small stool in her colostomy bag. Patient denies having any fevers chills or rigors. No chest pain or palpitations. No cough or difficulty in breathing. No fevers chills or rigors. On reviewing the vitals temperature 98.1, heart rate 84, respiratory rate 18, blood pressure 166/73, saturating at 97% on room air. Reviewing the labs sodium 1 that is his compression 3.6, chloride 106, bicarb 22, BUN less than 5, creatinine 0.5. On 09/18/2020 - patient feels and examined at the bedside. She continues to have abdominal pain, denies having any nausea or vomiting. She is able to tolerate full liquids. She states that she is small amount of stool in her colostomy bag. Patient denies having any chest pain or palpitations. No fever chills or rigors. No dysuria or hematuria. On reviewing the vitals temperature of 97.8, heart rate 68, respiratory 16 blood pressure 156-68, saturating at 97% on room air. On reviewing the labs white count of 5.8, hemoglobin 9.1, platelets 209. Sodium 137 compression 4, chloride 106, bicarbonate 22, BUN 5, creatinine 0.6. On 09/19/2020- patient is seen and examined at bedside. She continues to complain of ongoing abdominal pain. She also reports of having one episode of vomiting earlier this afternoon, no blood in the vomitus. Patient is on clear liquids. She denies having any stool in her colostomy bag. Patient denies having any chest pain or palpitations. No cough or difficulty in breathing. No dysuria or hematuria. No fevers chills or rigors. No acute events reported by nursing staff. On reviewing her vitals temperature of 97.9, heart rate 87, respiratory rate 18, blood pressure 170/87, saturating at 98% on room air. Reviewing her labs from this morning white count of 5.9, hemoglobin 10.2, platelets 197. Sodium 137 compression 4.7, chloride 108, bicarbonate 23, BUN 5, creatinine 0.6 09/20/2020 Patient is Still complaining of abdominal pain. Patient did have one episode of vomiting nonbilious after lunch today. patient is clear liquid diet. Currently on lactulose. Did have liquid stool in the colostomy bag. No complaints of fever or chills. No chest pain or shortness of breath. No headache or dizziness or lightheadedness. Laboratory showed WBC 4.3 hemoglobin 9.0 platelets 186 sodium 135 potassium 3.8 chloride 112 bicarb is 21 BUN 20 creatinine 0.48 and calcium 7.7 surgery is on board. 09/21/2020 Patient is still complains of abdominal pain mainly in the mid abdomen around umbilical area. Was able to tolerate liquid diet but very limited quantities. No episodes of vomiting today. Yellowish liquidy stool noted in the ostomy bag. Patient refused to take lactulose this morning. Patient was able to walk in the hallway this afternoon. No complaints of chest pain or shortness of breath. No nausea or episodes of vomiting. No dysuria or hematuria. Patient has been afebrile. Hemodynamically stable. General surgery is following. Advance diet to regular diet. 09/22/2020 Patient is still complaining of abdominal pain mainly in the upper abdomen at the incision site. Wound looks clean and healing well. Patient is being continued on lactulose and is having liquidy stool in the colostomy bag. Patient is able to tolerate liquid diet and advance to regular diet today. Patient was encouraged to increase activity. Patient is [place] for pain management. No fever no chills. No complaints of chest pain or shortness of breath. General surgery is following. Current medications reviewed. Objective - Vital Signs Vital signs: Vital Signs Temp 98.3 F 09/22/20 20:00 Pulse 80 09/22/20 20:00 Resp 18 09/22/20 20:00 BP 144/77 09/22/20 20:00 Pulse Ox 96 09/22/20 20:00 Intake & Output 09/22/20 09/22/20 09/23/20 06:59 18:59 06:59 Intake Total 60 Balance 60 Weight 81.647 kg Intake: Oral 60 Other: Voiding Method Toilet # Voids 1 3 # Bowel Movements 2 - Exam PHYSICAL EXAMINATION: Patient is lying in the bed comfortably, no acute distress, awake alert and oriented. HEENT: Normocephalic. Neck is supple. Pupils reactive. No pallor. no jvd CHEST EXAMINATION: Trachea is central. Symmetrical expansion. Lung herrera clear to auscultation and percussion. CARDIAC: Normal S1, S2 with no gallops. No murmurs ABDOMEN: Soft. Nondistended. Mild tenderness. Bowel sounds hyperactive. liquid stool noted in the colostomy bag. Extremities: reveal no edema. No clubbing or cyanosis Neurologically awake, alert, oriented x3 . No focal deficits noted Psychiatric: Coperative. - Labs CBC & Chem 7: 09/22/20 05:14 09/22/20 05:14 Labs: Abnormal Lab Results - Last 24 Hours (Table) 09/22/20 09/22/20 Range/Units 05:14 05:14 RBC 3.04 L (3.80-5.40) m/uL Hgb 9.1 L (11.4-16.0) gm/dL Hct 27.3 L (34.0-46.0) % RDW 15.7 H (11.5-15.5) % Neutrophils # 1.1 L (1.3-7.7) k/uL Sodium 134 L (137-145) mmol/L Chloride 109 H (98-107) mmol/L BUN <2 L (7-17) mg/dL Calcium 8.1 L (8.4-10.2) mg/dL Assessment and Plan Assessment: Intractable nausea vomiting and abdominal discomfort possible small bowel ileus History of diverticulitis with mesenteric abscess and lesions causing partial s mall bowel obstruction status post sigmoid colectomy and end colostomy and lysis of adhesions on 07/10/2020 Lactic acidosis resolved. Chronic back pain History of peptic ulcer disease GERD Hypertension Osteoarthritis History of coronary disease with no history of PCI Anxiety/depression and panic disorder Hypomagnesemia. Replaced. DVT prophylaxis Heparin subcu. PLAN: Patient continues to have abdominal pain. Patient had an abdominal x-ray done on 09/19 showing nonobstructive bowel gas pattern. Her lactulose has been changed from when necessary to scheduled dose. Surgery following the patient closely and on full liquid diet for now. Continue with IV fluids, pain management. GI DVT prophylaxis. Further recommendations to follow depending on the progress of the patient. Time with Patient: Greater than 30
[2020-09-24] MEDS ORDERED: METOCLOPRAMIDE 5 MG/ML 2 ML VIAL IVP STA (01:47)
--- NOTE | 2020-09-24 01:47 | P.PN ---
Subjective Progress Note Date: 09/23/20 Principal diagnosis: Intractable nausea vomiting and abdominal discomfort possible small bowel ileus. resolved Patient is a 74-year-old female with a known history of coronary artery disease, atrial fibrillation, hypertension, GERD, peptic ulcer disease, chronic back pain, history of laryngeal cancer 20 years ago, Guzman's palsy, anxiety/depression and panic disorder and history of diverticulitis with mesenteric abscess and adhesions causing partial small bowel obstruction and other multiple medical problems presents to ER with the complaints of nausea and vomiting and abdominal pain for the past 2 days. Abdominal pain is mainly in the mid abdominal region. Patient states that she did have diarrhea few days ago. No complaints of chest pain or shortness of. No fever no chills. Chest x-ray showed no active cardiopulmonary disease. There is clearing of atelectasis in both lung herrera compared to old exam. EKG showed sinus tachycardia with PVCs. CT of the abdomen pelvis showed previous surgeries. No sign of acute abdomen pelvis. No adverse change compared to old exam. Laboratory showed WBC 8.3 hemoglobin 12.6 and platelets 269 Bicarb is 17 BUN 16 creatinine 0.56 and lactic acid 4.4 magnesium 1.5 09/16/2020 Patient is currently resting in the bed awake alert oriented x3. Nausea and abdominal pain is improving. Patient did have a small bowel in the colostomy bag. NG tube has been discontinued and patient was started on full liquid diet. No headache or dizziness or lightheadedness. No chest pain or shortness breath. No fever no chills. General surgery is on board. On 09/17/2020- patient was seen and examined at bedside. She complains of abdominal pain mostly in the periumbilical area. Mentions that her nausea is improving. She did have a small stool in her colostomy bag. Patient denies having any fevers chills or rigors. No chest pain or palpitations. No cough or difficulty in breathing. No fevers chills or rigors. On reviewing the vitals temperature 98.1, heart rate 84, respiratory rate 18, blood pressure 166/73, saturating at 97% on room air. Reviewing the labs sodium 1 that is his compression 3.6, chloride 106, bicarb 22, BUN less than 5, creatinine 0.5. On 09/18/2020 - patient feels and examined at the bedside. She continues to have abdominal pain, denies having any nausea or vomiting. She is able to tolerate full liquids. She states that she is small amount of stool in her colostomy bag. Patient denies having any chest pain or palpitations. No fever chills or rigors. No dysuria or hematuria. On reviewing the vitals temperature of 97.8, heart rate 68, respiratory 16 blood pressure 156-68, saturating at 97% on room air. On reviewing the labs white count of 5.8, hemoglobin 9.1, platelets 209. Sodium 137 compression 4, chloride 106, bicarbonate 22, BUN 5, creatinine 0.6. On 09/19/2020- patient is seen and examined at bedside. She continues to complain of ongoing abdominal pain. She also reports of having one episode of vomiting earlier this afternoon, no blood in the vomitus. Patient is on clear liquids. She denies having any stool in her colostomy bag. Patient denies having any chest pain or palpitations. No cough or difficulty in breathing. No dysuria or hematuria. No fevers chills or rigors. No acute events reported by nursing staff. On reviewing her vitals temperature of 97.9, heart rate 87, respiratory rate 18, blood pressure 170/87, saturating at 98% on room air. Reviewing her labs from this morning white count of 5.9, hemoglobin 10.2, platelets 197. Sodium 137 compression 4.7, chloride 108, bicarbonate 23, BUN 5, creatinine 0.6 09/20/2020 Patient is Still complaining of abdominal pain. Patient did have one episode of vomiting nonbilious after lunch today. patient is clear liquid diet. Currently on lactulose. Did have liquid stool in the colostomy bag. No complaints of fever or chills. No chest pain or shortness of breath. No headache or dizziness or lightheadedness. Laboratory showed WBC 4.3 hemoglobin 9.0 platelets 186 sodium 135 potassium 3.8 chloride 112 bicarb is 21 BUN 20 creatinine 0.48 and calcium 7.7 surgery is on board. 09/21/2020 Patient is still complains of abdominal pain mainly in the mid abdomen around umbilical area. Was able to tolerate liquid diet but very limited quantities. No episodes of vomiting today. Yellowish liquidy stool noted in the ostomy bag. Patient refused to take lactulose this morning. Patient was able to walk in the hallway this afternoon. No complaints of chest pain or shortness of breath. No nausea or episodes of vomiting. No dysuria or hematuria. Patient has been afebrile. Hemodynamically stable. General surgery is following. Advance diet to regular diet. 09/22/2020 Patient is still complaining of abdominal pain mainly in the upper abdomen at the incision site. Wound looks clean and healing well. Patient is being continued on lactulose and is having liquidy stool in the colostomy bag. Patient is able to tolerate liquid diet and advance to regular diet today. Patient was encouraged to increase activity. Patient is [place] for pain management. No fever no chills. No complaints of chest pain or shortness of breath. General surgery is following. 09/23/2020 Patient is currently resting in the bed. Awake alert oriented x3. Abdominal pain is better. Still having nausea left without vomiting. Was planning to discharge home today but due to continued symptoms patient will be continued on current management including IV pain medications.. Patient does follow with pain clinic and is on OxyContin and [place] at home. Patient has been afebrile. No chest pain or shortness of breath. having yellowish liquidy stool in the colostomy bag. Current medications reviewed. Objective - Vital Signs Vital signs: Vital Signs Temp 98.1 F 09/23/20 19:55 Pulse 83 09/23/20 19:55 Resp 16 09/23/20 19:55 BP 124/64 09/23/20 19:55 Pulse Ox 98 09/23/20 19:55 Intake & Output 09/23/20 09/23/20 09/24/20 06:59 18:59 06:59 Intake Total 800 Balance 800 Intake: Intake, IV Titration 800 Amount Dextrose 5%-0.45% NaCl 1, 800 000 ml @ 80 mls/hr IV . [id number] [facility] Rx#:[id number] Other: Voiding Method Toilet # Voids 4 2 # Bowel Movements 2 3 - Exam PHYSICAL EXAMINATION: Patient is lying in the bed comfortably, no acute distress, awake alert and oriented. HEENT: Normocephalic. Neck is supple. Pupils reactive. No pallor. no jvd CHEST EXAMINATION: Trachea is central. Symmetrical expansion. Lung herrera clear to auscultation and percussion. CARDIAC: Normal S1, S2 with no gallops. No murmurs ABDOMEN: Soft. Nondistended. Mild tenderness. Bowel sounds hyperactive. liquid stool noted in the colostomy bag. Extremities: reveal no edema. No clubbing or cyanosis Neurologically awake, alert, oriented x3 . No focal deficits noted Psychiatric: Coperative. - Labs CBC & Chem 7: 09/22/20 05:14 09/22/20 05:14 Assessment and Plan Assessment: Intractable nausea vomiting and abdominal discomfort possible small bowel ileus History of diverticulitis with mesenteric abscess and lesions causing partial small bowel obstruction status post sigmoid colectomy and end colostomy and lysis of adhesions on 07/10/2020 Lactic acidosis resolved. Chronic back pain History of peptic ulcer disease GERD Hypertension Osteoarthritis History of coronary disease with no history of PCI Anxiety/depression and panic disorder Hypomagnesemia. Replaced. DVT prophylaxis Heparin subcu. PLAN: History complaining of abdominal pain but improving.Patient had an abdominal x-ray done on 09/19 showing nonobstructive bowel gas pattern. Her lactulose has been changed from when necessary to scheduled dose. Surgery following the patient closely and on full liquid diet for now. Continue with IV fluids, pain management. GI DVT prophylaxis. Further recomm endations to follow depending on the progress of the patient.
[2020-09-24 04:24] LABS: African American GFR (CKD) >90 (>60 ml/min/1.73 sqM); Anion Gap 2 mmol/L; Blood Urea Nitrogen 2 mg/dL (7-17); Calcium 7.9 mg/dL (8.4-10.2); Carbon Dioxide 24 mmol/L (22-30); Chloride 111 mmol/L (98-107); Glucose 90 mg/dL (74-99); Non-African American GFR(CKD) >90 (>60 ml/min/1.73 sqM); Potassium 3.3 mmol/L (3.5-5.1); Sodium 137 mmol/L (137-145)
[2020-09-24] MEDS: LEVOTHYROXINE 100 MCG TAB PO SCH (06:33)
[2020-09-24] MEDS: LACTULOSE 20 GM/30 ML CUP PO SCH ×3 (07:59→20:21)
[2020-09-24] MEDS: PANTOPRAZOLE 40 MG TABLET PO SCH (07:59)
[2020-09-24] MEDS: lisinopriL 20 MG TAB PO SCH (07:59)
[2020-09-24] MEDS: MAG HYDROX/AL HYDROX/SIMETH 30 ML, LIDOCAINE VISCOUS 30 ML, diphenhydrAMINE ELIXIR 75 M... PO PRN ×12 (08:08→20:21)
[2020-09-24] MEDS ORDERED: Potassium Replacement Protocol 1 EACH MISC MISCELLANE PRN (12:10)
[2020-09-24] MEDS: POTASSIUM CHLORIDE ER 20 MEQ TAB.ER PO SCH ×2 (12:26→14:26)
--- NOTE | 2020-09-24 12:56 | P.PN ---
Subjective Progress Note Date: 09/24/20 CHIEF COMPLAINT: Nausea and vomiting HISTORY OF PRESENT ILLNESS: The patient is a 74-year-old female history of colostomy due to diverticulitis who presented with nausea and vomiting. She has stool from her ostomy. She reports persistent pain along her umbilicus that has been present prior to admission. She reports more emesis this morning and last night. ROS: No fevers or chills. No new chest pain. Has chronic pain syndrome PHYSICAL EXAM: VITAL SIGNS: Reviewed CONSTITUTIONAL: Well developed and in no acute distress. EYES: Conjuctivae without sclera icterus. Extraocular movements grossly intact. HEAD, EARS, NOSE, THROAT: Moist buccal mucosa. Head is atraumatic, normocephalic. Hears conversational speech. No nasal drainage. NECK: Supple. No thyroidomegaly. RESPIRATORY: Non-labored respirations and equal bilateral excursions. CARDIOVASCULAR: Palpable 2+ radial pulses. ABDOMEN: Ostomy pink patent functioning MUSCULOSKELETAL: No gross deformity of the lower extremities noted. No clubbing. No cyanosis. SKIN: Good skin turgor. Well perfused. NEUROLOGIC: Cranial nerves II through XII grossly intact. No focal or lateralizing signs. PSYCH: Appropriate affect. Alert and oriented to person, place and time. CLINICAL LABS: White blood cell count normal ASSESSMENT: 1. Nausea and vomiting 2. History of diverticulitis 3. Colostomy status PLAN: 1. Anti-emetics for nausea 2. Continue hospitalization. Objective - Vital Signs Vital signs: Vital Signs Temp 98.1 F 09/24/20 08:00 Pulse 89 09/24/20 08:00 Resp 18 09/24/20 08:00 BP 178/83 09/24/20 08:00 Pulse Ox 97 09/24/20 08:00 Intake & Output 09/23/20 09/24/20 09/24/20 18:59 06:59 18:59 Intake Total 240 Balance 240 Intake: Oral 240 Other: Voiding Method Toilet Toilet # Voids 2 1 # Bowel Movements 3 4 - Labs CBC & Chem 7: 09/22/20 05:14 09/24/20 03:59 Labs: Abnormal Lab Results - Last 24 Hours (Table) 09/24/20 Range/Units 03:59 Potassium 3.3 L (3.5-5.1) mmol/L Chloride 111 H (98-107) mmol/L BUN 2 L (7-17) mg/dL Calcium 7.9 L (8.4-10.2) mg/dL Assessment and Plan (1) Chronic pain syndrome Current Visit: Yes Status: Acute Code(s): G89.4 - CHRONIC PAIN SYNDROME SNOMED Code(s): 268156119 (2) Nausea & vomiting Current Visit: Yes Status: Acute Code(s): R11.2 - NAUSEA WITH VOMITING, UNSPECIFIED SNOMED Code(s): 23139840 (3) Colostomy status Current Visit: No Status: Acute Code(s): Z93.3 - COLOSTOMY STATUS SNOMED Code(s): 662362442
[2020-09-24] MEDS ORDERED: Magnesium Replacement Protocol 1 EACH MISC MISCELLANE PRN (15:56)
--- NOTE | 2020-09-24 16:33 | PN ---
PROGRESS NOTE DATE OF SERVICE: 09/24/2020. INTERVAL HISTORY: This 74-year-old woman who was admitted with nausea, vomiting, abdominal discomfort, had features of small-bowel ileus. The patient is also complaining of severe abdominal pain. Surgery is following the patient closely and has recommended antiemetics at this time. No chest pain. No palpitations. No fever. Hemoglobin is 9.0, potassium 3.3. PHYSICAL EXAMINATION: Alert and oriented x3. Pulse is 80, blood pressure 133/77, respirations 18, temperature 98.2, pulse ox 94% on room air. HEENT: Conjunctivae normal. Oral mucosa moist. NECK: No jugular venous distention. No lymph node enlargement. CARDIOVASCULAR: S1, S2, muffled. No S3, no S4, RESPIRATORY: Diminished breath sounds at the bases. Bilateral scattered rhonchi and crackles. ABDOMEN: Soft. Mild diffuse discomfort. No masses palpable. LEGS: No edema, no swelling. NERVOUS SYSTEM: Higher functions mentioned earlier. Moves all four limbs. No focal motor or sensory deficits. LAB: Hemoglobin 9.1, sodium 137, potassium 3.3. ASSESSMENT: 1. Intractable nausea and vomiting, possibly small-bowel ileus. 2. History of diverticulitis with mesenteric abscess and lesions causing partial small- bowel obstruction. 3. Status post sigmoid colectomy and end colostomy with lysis of admission adhesions. 4. Lactic acidosis, resolved. 5. Chronic back pain. 6. History of peptic ulcer disease. 7. GERD. 8. Hypertension. 9. DJD. 10.History of coronary artery disease. 11.Anxiety, depression, panic disorder. 12.Hypomagnesemia, replaced. 13.Deep vein thrombosis prophylaxis. 14.Hypokalemia. 15.Anemia, normocytic. RECOMMENDATIONS: In this 74-year-old woman who presented with multiple complex medical problems, we will monitor the patient closely, continue the current management and symptomatic treatment. The patient also already had 2 abdominal pelvis CAT scans, which showed no significant bowel obstruction. We will continue to monitor, continue the blood work and symptomatic treatment. Potassium supplementation. Guarded prognosis. Further recommendations to follow. MMODL / IJN: [id number] /
[2020-09-24] MEDS: MORPHINE SULFATE ER 15 MG TABLET PO PRN (17:38)
[2020-09-24] MEDS: DEXTROSE 5%-0.45% NACL 1,000 ML IV SCH (19:25)
[2020-09-24] MEDS: QUEtiapine 25 MG TAB PO SCH (20:21)
[2020-09-24 21:41] LABS: Appearance,Urine Clear (Clear); Bacteria,Urine Rare /hpf; Bilirubin,Urine Negative (Negative); Blood,Urine Negative (Negative); Color,Urine Yellow; Glucose,Urine (UA) Negative (Negative); Hyaline Casts,Urine 3 /lpf (0-2); Ketones,Urine Negative (Negative); Leukocyte Esterase,Urine Moderate (Negative); Mucus,Urine Rare /hpf; Nitrite,Urine Negative (Negative); PH, Urine 5.5 (5.0-8.0); Protein,Urine Negative (Negative); RBC,Urine 1 /hpf (0-5); Specific Gravity,Urine 1.016 (1.001-1.035); Squamous Epithelial Cell,Urine 2 /hpf (0-4); Urobilinogen,Urine <2.0 mg/dL (<2.0); WBC,Urine 6 /hpf (0-5)
[2020-09-25] MEDS: HYDROcodone/APAP 10-325MG 1 EACH TAB PO PRN ×3 (05:35→18:03)
[2020-09-25] MEDS: LEVOTHYROXINE 100 MCG TAB PO SCH (05:38)
[2020-09-25 07:40] LABS: Anisocytosis Slight; Basophils # (A) 0.1 k/uL (0-0.2); Basophils % (A) 1 %; Eosinophils # (A) 0.3 k/uL (0-0.7); Eosinophils % (A) 6 %; HCT 29.9 % (34.0-46.0); HGB 9.7 gm/dL (11.4-16.0); Hypochromasia Slight; Lymphocytes # (A) 2.6 k/uL (1.0-4.8); Lymphocytes % (A) 53 %; MCH 29.5 pg (25.0-35.0); MCHC 32.5 g/dL (31.0-37.0); MCV 90.6 fL (80.0-100.0); Mean Platelet Volume 7.8; Monocytes # (A) 0.6 k/uL (0-1.0); Monocytes % (A) 13 %; Neutrophils # (A) 1.2 k/uL (1.3-7.7); Neutrophils % (A) 23 %; Platelet Count 200 k/uL (150-450); RDW 16.1 % (11.5-15.5); WBC 4.9 k/uL (3.8-10.6)
[2020-09-25 07:51] LABS: African American GFR (CKD) >90 (>60 ml/min/1.73 sqM); Anion Gap 4 mmol/L; Blood Urea Nitrogen 2 mg/dL (7-17); C Reactive Protein 0.7 mg/dL (<1.0); Calcium 7.9 mg/dL (8.4-10.2); Carbon Dioxide 25 mmol/L (22-30); Chloride 111 mmol/L (98-107); Glucose 114 mg/dL (74-99); Magnesium 1.6 mg/dL (1.6-2.3); Non-African American GFR(CKD) >90 (>60 ml/min/1.73 sqM); Potassium 4.1 mmol/L (3.5-5.1); Sodium 140 mmol/L (137-145)
[2020-09-25] MEDS: DEXTROSE 5%-0.45% NACL 1,000 ML IV SCH (08:14)
[2020-09-25] MEDS: HEPARIN SODIUM,PORCINE/PF 5,000 UNIT/0.5 ML SYRINGE SQ SCH ×2 (08:15→15:59)
[2020-09-25] MEDS: ONDANSETRON 4 MG/2 ML VIAL IVP PRN ×2 (08:15→14:24)
[2020-09-25] MEDS: MAG HYDROX/AL HYDROX/SIMETH 30 ML, LIDOCAINE VISCOUS 30 ML, diphenhydrAMINE ELIXIR 75 M... PO PRN ×8 (08:15→14:24)
[2020-09-25] MEDS: MORPHINE SULFATE ER 15 MG TABLET PO PRN ×2 (08:15→20:18)
[2020-09-25] MEDS: LACTULOSE 20 GM/30 ML CUP PO SCH ×3 (08:15→20:19)
[2020-09-25] MEDS: PANTOPRAZOLE 40 MG TABLET PO SCH (08:16)
[2020-09-25] MEDS: lisinopriL 20 MG TAB PO SCH (08:16)
[2020-09-25] MEDS: MAGNESIUM SULFATE-D5W PMX 1 GM in DEXTROSE/WATER 1 100ML.BAG IVPB SCH ×2 (09:52→10:53)
[2020-09-25 09:59] LABS: Erythrocyte Sedimentation Rate 10 mm/hr (0-20)
--- NOTE | 2020-09-25 13:47 | P.PN ---
Subjective Progress Note Date: 09/25/20 CHIEF COMPLAINT: Nausea and vomiting HISTORY OF PRESENT ILLNESS: The patient is a 74-year-old female history of colostomy due to diverticulitis who presented with nausea and vomiting. Her nausea has improved. Her pain has improved. She is tolerating diet. ROS: No fevers or chills. No new chest pain. Has chronic pain syndrome PHYSICAL EXAM: VITAL SIGNS: Reviewed CONSTITUTIONAL: Well developed and in no acute distress. EYES: Conjuctivae without sclera icterus. Extraocular movements grossly intact. HEAD, EARS, NOSE, THROAT: Moist buccal mucosa. Head is atraumatic, normocephalic. Hears conversational speech. No nasal drainage. NECK: Supple. No thyroidomegaly. RESPIRATORY: Non-labored respirations and equal bilateral excursions. CARDIOVASCULAR: Palpable 2+ radial pulses. ABDOMEN: Ostomy pink patent functioning MUSCULOSKELETAL: No gross deformity of the lower extremities noted. No clubbing. No cyanosis. SKIN: Good skin turgor. Well perfused. NEUROLOGIC: Cranial nerves II through XII grossly intact. No focal or lateralizing signs. PSYCH: Appropriate affect. Alert and oriented to person, place and time. CLINICAL LABS: White blood cell count normal at 4.9. Hgb less than 10.0 ASSESSMENT: 1. Nausea and vomiting 2. History of diverticulitis 3. Colostomy status 4. Chronic pain syndrome. 5. Anemia. PLAN: 1. Continue current pain management 2. Advance diet as tolerated. Objective - Vital Signs Vital signs: Vital Signs Temp 97.9 F 09/25/20 08:24 Pulse 95 09/25/20 08:24 Resp 20 09/25/20 08:24 BP 161/75 09/25/20 08:24 Pulse Ox 98 09/25/20 08:24 Intake & Output 09/24/20 09/25/20 09/25/20 18:59 06:59 18:59 Intake Total 240 Balance 240 Intake: Oral 240 Other: Voiding Method Toilet # Voids 1 1 1 # Bowel Movements 1 1 - Labs CBC & Chem 7: 09/25/20 07:07 09/25/20 07:07 Labs: Abnormal Lab Results - Last 24 Hours (Table) 09/24/20 09/25/20 09/25/20 Range/Units 21:03 07:07 07:07 RBC 3.30 L (3.80-5.40) m/uL Hgb 9.7 L (11.4-16.0) gm/dL Hct 29.9 L (34.0-46.0) % RDW 16.1 H (11.5-15.5) % Neutrophils # 1.2 L (1.3-7.7) k/uL Chloride 111 H (98-107) mmol/L BUN 2 L (7-17) mg/dL Glucose 114 H (74-99) mg/dL Calcium 7.9 L (8.4-10.2) mg/dL Ur Leukocyte Esterase Moderate H (Negative) Urine WBC 6 H (0-5) /hpf Urine Bacteria Rare H (None) /hpf Hyaline Casts 3 H (0-2) /lpf Urine Mucus Rare H (None) /hpf Assessment and Plan (1) Chronic pain syndrome Current Visit: Yes Status: Acute Code(s): G89.4 - CHRONIC PAIN SYNDROME SNOMED Code(s): 680074771 (2) Nausea & vomiting Current Visit: Yes Status: Acute Code(s): R11.2 - NAUSEA WITH VOMITING, UNSPECIFIED SNOMED Code(s): 37932717 (3) Colostomy status Current Visit: No Status: Acute Code(s): Z93.3 - COLOSTOMY STATUS SNOMED Code(s): 851487411
[2020-09-25] MEDS ORDERED: POTASSIUM CHLORIDE ER 20 MEQ TAB.ER PO SCH (14:00)
[2020-09-25] MEDS ORDERED: POTASSIUM CHLORIDE ER 10 MEQ TAB.ER.PRT PO SCH (14:00)
[2020-09-25] MEDS ORDERED: FUROSEMIDE 10 MG/ML 2 ML VIAL IV ONE (14:00)
--- NOTE | 2020-09-25 18:04 | PN ---
PROGRESS NOTE DATE OF SERVICE: 09/25/2020 INTERVAL HISTORY: This is a 74-year-old woman who was admitted with nausea, vomiting, and small bowel ileus, also had history of chronic pain syndrome. The patient is being closely monitored at this time. Surgery is following the patient closely. PT/OT is evaluating the patient as well. PHYSICAL EXAM: GENERAL: Patient is alert and oriented times three. VITAL SIGNS: Pulse 82, blood pressure 131/68, respirations 18, temperature 98.7, pulse ox 96% on room air. HEENT: Conjunctivae normal. NECK: No jugular venous distention. No carotid bruits. No lymph node enlargement. RESPIRATORY: Breath sounds diminished at the bases. HEART: S1 and S2, muffled. ABDOMEN: Soft, no tenderness. No masses palpable. EXTREMITIES: No edema, no swelling. NERVOUS: No focal deficits. LABS: WBC 4.2, hemoglobin 9.7. ASSESSMENT: 1. Intractable nausea and vomiting, possibly small-bowel ileus, on conservative line of treatment. 2. History of diverticulitis and mesenteric abscess and lesions causing partial small- bowel obstruction. 3. Status post colectomy and end-colostomy with lysis of adhesions. 4. Lactic acidosis on admission, improved. 5. Chronic back pain. 6. History of peptic ulcer disease. 7. Gastroesophageal reflux disease .. 8. Hypertension. 9. History of degenerative joint disease. 10.History of coronary artery disease. 11.Anxiety, depression, panic disorder. 12.Hypomagnesemia, replaced. 13.Deep vein thrombosis prophylaxis. 14.Hypokalemia. 15.Anemia, normocytic. RECOMMENDATIONS AND DISCUSSION: I recommend to continue current management and continue symptomatic treatment. Repeat labs tomorrow. Single dose of Lasix. Otherwise continue the rest of the medications. Closely follow with Surgery. Further recommendations to follow. MMODL / IJN: [id number] /
[2020-09-25] MEDS: QUEtiapine 25 MG TAB PO SCH (20:19)
[2020-09-26] MEDS: HYDROcodone/APAP 10-325MG 1 EACH TAB PO PRN ×3 (00:40→13:59)
[2020-09-26] MEDS: HEPARIN SODIUM,PORCINE/PF 5,000 UNIT/0.5 ML SYRINGE SQ SCH ×2 (00:41→07:52)
[2020-09-26] MEDS: LEVOTHYROXINE 100 MCG TAB PO SCH (05:51)
[2020-09-26 06:03] LABS: Anisocytosis Slight; Basophils % (A) 1 %; Eosinophils # (A) 0.3 k/uL (0-0.7); Eosinophils % (A) 6 %; HCT 29.8 % (34.0-46.0); Lymphocytes # (A) 2.8 k/uL (1.0-4.8); Lymphocytes % (A) 54 %; MCH 29.6 pg (25.0-35.0); MCHC 33.5 g/dL (31.0-37.0); MCV 88.4 fL (80.0-100.0); Mean Platelet Volume 8.1; Monocytes # (A) 0.6 k/uL (0-1.0); Monocytes % (A) 11 %; Neutrophils # (A) 1.3 k/uL (1.3-7.7); Neutrophils % (A) 25 %; Platelet Count 208 k/uL (150-450); RBC 3.37 m/uL (3.80-5.40); RDW 16.1 % (11.5-15.5); WBC 5.2 k/uL (3.8-10.6)
[2020-09-26 06:04] LABS: ALT 10 U/L (4-34); AST 27 U/L (14-36); African American GFR (CKD) >90 (>60 ml/min/1.73 sqM); Albumin 2.1 g/dL (3.5-5.0); Alkaline Phosphatase 104 U/L (38-126); Anion Gap 4 mmol/L; Blood Urea Nitrogen 2 mg/dL (7-17); Calcium 7.7 mg/dL (8.4-10.2); Carbon Dioxide 23 mmol/L (22-30); Chloride 109 mmol/L (98-107); Glucose 91 mg/dL (74-99); Non-African American GFR(CKD) >90 (>60 ml/min/1.73 sqM); Potassium 4.1 mmol/L (3.5-5.1); Sodium 136 mmol/L (137-145); Total Bilirubin 0.1 mg/dL (0.2-1.3); Total Protein 4.7 g/dL (6.3-8.2)
[2020-09-26] MEDS: MAG HYDROX/AL HYDROX/SIMETH 30 ML, LIDOCAINE VISCOUS 30 ML, diphenhydrAMINE ELIXIR 75 M... PO PRN ×4 (07:50)
[2020-09-26] MEDS: lisinopriL 20 MG TAB PO SCH (07:52)
[2020-09-26] MEDS: LACTULOSE 20 GM/30 ML CUP PO SCH (07:52)
[2020-09-26] MEDS: PANTOPRAZOLE 40 MG TABLET PO SCH (07:52)
[2020-09-26] MEDS: ONDANSETRON 4 MG/2 ML VIAL IVP PRN (10:27)
[2020-09-26 14:13] VITALS: BP 132/63; PULSE 88; RESP 16; TEMP 98.2
--- NOTE | 2020-09-26 14:16 | P.PN ---
Subjective Progress Note Date: 09/26/20 CHIEF COMPLAINT: Abdominal pain with nausea and vomiting HISTORY OF PRESENT ILLNESS: Surgical service is following in regards to patient's possible ileus. Patient reports having stool through her ostomy when she takes the lactulose. Patient reports that her abdominal pain is better controlled. She did have one small episode of vomiting at 5 AM this morning. However, since then she was able to eat a slice of [place] toast at breakfast without any issues. She has been up and ambulating. She is afebrile. WBC is 5.2 and she is on a regular diet. Patient feels ready for discharge today. Patient seen and examined with Dr. Burt PHYSICAL EXAM: VITAL SIGNS: Reviewed. GENERAL: Well-developed in no acute distress. HEENT: No sclera icterus. Extraocular movements grossly intact. Moist buccal mucosa. Head is atraumatic, normocephalic. ABDOMEN: Soft. Nondistended. Mild tenderness with palpation of the lower abdomen at old incisions NEUROLOGIC: Alert and oriented. Cranial nerves II through XII grossly intact. ASSESSMENT: 1. Ileus 2. Abdominal pain with nausea and vomiting 3. History of diverticulitis with mesenteric abscess and adhesions causing a partial small bowel obstruction she is status post sigmoid colectomy with end colostomy and lysis of adhesions on 07/10/2020 4. Chronic constipation PLAN: -Patient can be discharged from surgical standpoint -Continue regular diet -Encouraged patient to continue lactulose 3 times a day -Encouraged patient to increase activity -Continue her home pain medication Physician Senior [employer] Consultant note has been reviewed by physician. Signing provider agrees with the documented findings, assessment, and plan of care. Objective - Vital Signs Vital signs: Vital Signs Temp 98.2 F 09/26/20 13:50 Pulse 88 09/26/20 13:50 Resp 16 09/26/20 13:50 BP 132/63 09/26/20 13:50 Pulse Ox 96 09/26/20 13:50 Intake & Output 09/25/20 09/26/20 09/26/20 18:59 06:59 18:59 Intake Total 240 240 Output Total 90 Balance 240 150 Intake: Intake, IV Titration 240 Amount Dextrose 5%-0.45% NaCl 1, 240 000 ml @ 20 mls/hr IV . Q24H [facility] Rx#:[id number] Oral 240 Output: Emesis 90 Other: Voiding Method Toilet Toilet # Voids 5 1 # Bowel Movements 4 - Labs CBC & Chem 7: 09/26/20 05:32 09/26/20 05:32 Labs: Abnormal Lab Results - Last 24 Hours (Table) 09/26/20 09/26/20 Range/Units 05:32 05:32 RBC 3.37 L (3.80-5.40) m/uL Hgb 10.0 L (11.4-16.0) gm/dL Hct 29.8 L (34.0-46.0) % RDW 16.1 H (11.5-15.5) % Sodium 136 L (137-145) mmol/L Chloride 109 H (98-107) mmol/L BUN 2 L (7-17) mg/dL Calcium 7.7 L (8.4-10.2) mg/dL Total Bilirubin 0.1 L (0.2-1.3) mg/dL Total Protein 4.7 L (6.3-8.2) g/dL Albumin 2.1 L (3.5-5.0) g/dL
--- NOTE | 2020-09-26 15:06 | P.DS ---
Providers Date of admission: 09/14/20 23:23 Expected date of discharge: 09/26/20 Attending physician: Compa Medina Consults: 09/14/20 23:22 Consult Physician Routine Consulting Provider: Phil Burt Consult Reason/Comments: [place] Do you want consulting provider notified?: Yes Primary care physician: Courtney Cook [facility] Course: Final diagnosis Intractable nausea and vomiting, possibly small bowel ileus, on conservative line of treatment History of diverticulitis and mesenteric abscess and lesions causing partial small bowel obstruction Status post colectomy and end colostomy with lysis of adhesions Chronic back pain History of peptic ulcer disease Gastroesophageal reflux disease Hypertension History of degenerative joint disease History of coronary artery disease and anxiety, depression, panic disorder Hypomagnesemia, replaced Deep vein thrombosis, prophylaxis Hypokalemia Anemia, normocytic Full code Discharge disposition Patient is being discharged in a stable condition with guarded prognosis to home. Patient will continue to have home care in the outpatient setting. Patient will follow-up with Dr. Valdez in the outpatient setting upon discharge. Patient is to also follow-up with surgery outpatient in one week. Patient to continue with lactulose 3 times daily and current bowel regimen. Patient will also need to follow-up with paint stockman that she sees outpatient. Total time taken is greater than 35 minutes. Hospital course This is a 74-year-old female who was recently admitted with nausea, vomiting, and small bowel ileus also with history of chronic pain syndrome and was being closely monitored. General surgery following and patient will follow-up outpatient in the clinic in one week. Patient also instructed to follow-up with primary care provider Dr. Valdez and her paint stockman outpatient. Patient continues to have some occasional nausea with vomiting and instructed to continue with full liquid and low fiber diet of soft foods to eat food thoroughly and continue with current bowel regimen. Patient will continue with home care in the outpatient setting. May use Zofran as needed. Currently no rep orts of chest pain, shortness of breath, or palpitations. Patient is afebrile. patient is tolerating diet and instructed the patient to continue soft foods low fiber and small frequent meals. Patient will be discharged to home today. Guarded prognosis On exam vital signs are stable. Cardio S1, S2 are muffled. Respiratory system shows diminished breath sounds at the bases with no wheezing or rhonchi noted. Abdomen is soft and obese, and nontender. Nervous system shows no focal deficits. Please refer to medication reconciliation sheet for a list of medications. Patient Condition at Discharge: Stable Plan - Discharge Summary Discharge Rx Participant: Yes New Discharge Prescriptions: New Mag Hydrox/Al Hydrox/Simeth [Maalox] 30 ml PO QID PRN #300 ml PRN Reason: denture pain Lidocaine Viscous [Xylocaine Viscous 2%] 30 ml PO QID PRN #200 ml PRN Reason: denture pain Acetaminophen Tab [Tylenol] 650 mg PO Q4HR PRN tab PRN Reason: Fever And/ Or Pain Continue Levothyroxine Sodium [Synthroid] 200 mcg PO DAILY Lactulose [Cephulac] 20 gm PO BID PRN #300 ml PRN Reason: Constipation Ondansetron Odt [Zofran ODT] 4 mg PO Q8HR PRN #10 tab PRN Reason: Nausea QUEtiapine FUMARATE [SEROquel] 25 mg PO HS 30 Days #30 tab Mupirocin [Mupirocin 2%] 1 applic TOPICAL BID lisinopriL 40 mg PO DAILY 30 Days #30 tab Morphine Sulfate ER [Ms Contin] 15 mg PO Q12HR PRN #12 tab PRN Reason: Pain HYDROcodone/APAP 10-325MG [Antelope 10-325] 1 tab PO Q6H #12 tab Pantoprazole [Protonix] 40 mg PO DAILY 30 Days #30 tab Discontinued Cephalexin [Keflex] 500 mg PO BID Discharge Medication List Levothyroxine Sodium [Synthroid] 200 mcg PO DAILY 01/12/19 [History] Mupirocin [Mupirocin 2%] 1 applic TOPICAL BID 09/14/20 [History] Lactulose [Cephulac] 20 gm PO BID PRN #300 ml 09/23/20 [Rx] Lidocaine Viscous [Xylocaine Viscous 2%] 30 ml PO QID PRN #200 ml 09/23/20 [Rx] Ondansetron Odt [Zofran ODT] 4 mg PO Q8HR PRN #10 tab 09/23/20 [Rx] Acetaminophen Tab [Tylenol] 650 mg PO Q4HR PRN tab 09/26/20 [Rx] HYDROcodone/APAP 10-325MG [Antelope 10-325] 1 tab PO Q6H #12 tab 09/26/20 [Rx] Mag Hydrox/Al Hydrox/Simeth [Maalox] 30 ml PO QID PRN #300 ml 09/26/20 [Rx] Morphine Sulfate ER [Ms Contin] 15 mg PO Q12HR PRN #12 tab 09/26/20 [Rx] Pantoprazole [Protonix] 40 mg PO DAILY 30 Days #30 tab 09/26/20 [Rx] QUEtiapine FUMARATE [SEROquel] 25 mg PO HS 30 Days #30 tab 09/26/20 [Rx] lisinopriL 40 mg PO DAILY 30 Days #30 tab 09/26/20 [Rx] Follow up Appointment(s)/Referral(s): Joey Valdez MD [Primary Care Provider] - 1-2 days (September 29 at 9:40am) [facility] Visiting Nurse, [NON-STAFF] - Phil Burt MD [STAFF PHYSICIAN] - 1 Week (NOVEMBER 03 AT 1:30pm) Activity/Diet/Wound Care/Special Instructions: Activity Limited until follow-up Follow-up with primary care provider upon discharge Follow-up with surgery outpatient in one week Continue with soft diet with small little meals and use Zofran as needed for nausea Continue to monitor output in ostomy Continue with ensures 3 times daily with meals Continue with home care in the outpatient setting Discharge Disposition: HOME WITH HOME HEALTH SERVICES
== END 2020-09-26 16:50 | disposition home health service (06) | DRG 389 ==
LOC: EC 21:22 → 4SSUR 23:23 → 6PED 09-19 13:22
PROVIDERS: ADMIT Hospitalist; ATTEND Hospitalist
DX: K56.7 Ileus, unspecified (principal); J98.11 Atelectasis; E87.2 Acidosis; Z79.890 Hormone replacement therapy; Z82.49 Family history of ischemic heart disease and other diseases of the circulatory system; I48.91 Unspecified atrial fibrillation; I25.10 Atherosclerotic heart disease of native coronary artery without angina pectoris; Z85.21 Personal history of malignant neoplasm of larynx; R00.0 Tachycardia, unspecified; Z87.11 Personal history of peptic ulcer disease; Z87.820 Personal history of traumatic brain injury; Z98.84 Bariatric surgery status; Z20.822 Contact with and (suspected) exposure to COVID-19; Z90.710 Acquired absence of both cervix and uterus; F41.0 Panic disorder [episodic paroxysmal anxiety]; Z87.891 Personal history of nicotine dependence; M19.90 Unspecified osteoarthritis, unspecified site; K21.9 Gastro-esophageal reflux disease without esophagitis; Z83.3 Family history of diabetes mellitus; E83.42 Hypomagnesemia; Z93.3 Colostomy status; E87.6 Hypokalemia; D64.9 Anemia, unspecified; K59.09 Other constipation; I10 Essential (primary) hypertension; G89.4 Chronic pain syndrome; F32.9 Major depressive disorder, single episode, unspecified; Z87.828 Personal history of other (healed) physical injury and trauma; Z96.653 Presence of artificial knee joint, bilateral; Z90.49 Acquired absence of other specified parts of digestive tract; K43.9 Ventral hernia without obstruction or gangrene; I49.3 Ventricular premature depolarization
CPT/HCPCS: 36415; 71045; 74019; 74176; 74177; 80048; 80053; 81001; 82550; 83605; 83690; 83735; 84100; 84132; 84484; 85025; 85610; 85652; 85730; 86140; 87635; 93005; 96361; 96374; 96375; 99285

== ENCOUNTER 2020-10-20 12:45 | Inpatient (IN) | payer MEDICARE ==
[2020-10-20] MEDS ORDERED: SODIUM CHLORIDE 0.9% 500 ML 500 ML IV STA (13:50)
[2020-10-20] MEDS ORDERED: HYDROmorphone 0.5 MG/0.5 ML SYRINGE IVP STA ×2 (13:50→15:29)
[2020-10-20 14:20] LABS: Anisocytosis Slight; HCT 37.9 % (34.0-46.0); HGB 12.6 gm/dL (11.4-16.0); MCH 29.5 pg (25.0-35.0); MCHC 33.2 g/dL (31.0-37.0); Mean Platelet Volume 8.1; Platelet Count 224 k/uL (150-450); RBC 4.26 m/uL (3.80-5.40); RDW 16.4 % (11.5-15.5); WBC 7.4 k/uL (3.8-10.6)
[2020-10-20 14:26] LABS: Appearance,Urine Cloudy (Clear); Bilirubin,Urine Negative (Negative); Blood,Urine Negative (Negative); Color,Urine Yellow; Glucose,Urine (UA) Negative (Negative); Hyaline Casts,Urine 43 /lpf (0-2); Ketones,Urine Negative (Negative); Leukocyte Esterase,Urine Large (Negative); Mucus,Urine Rare /hpf; Nitrite,Urine Negative (Negative); PH, Urine 5.5 (5.0-8.0); Protein,Urine Trace (Negative); RBC,Urine 5 /hpf (0-5); Specific Gravity,Urine 1.026 (1.001-1.035); Squamous Epithelial Cell,Urine 9 /hpf (0-4); Urobilinogen,Urine <2.0 mg/dL (<2.0); WBC,Urine 68 /hpf (0-5)
--- NOTE | 2020-10-20 14:29 | ED ---
General Adult HPI - General Chief complaint: Abdominal Pain Stated complaint: Abd Pain Time Seen by Provider: 10/20/20 13:00 Source: patient, RN notes reviewed, old records reviewed Mode of arrival: wheelchair Limitations: no limitations - History of Present Illness Initial comments: This is a 74-year-old female presents emergency Department complaining of abdominal pain. Patient states she has a colostomy placed in June but she doesn't know why. Patient states she supposed to have it reversed on Saturday per patient states she's had mid lower abdominal pain is getting quite excruciating she states feels like a cramp and if you touch it is extremely tender. Patient states there is low drainage from the umbilicus as well. Patient denies fever chills per patient denies dysuria hematuria urinary frequency. Patient denies any back pain. Patient denies any vomiting or decreased output from the colostomy. Patient denies any chest pain difficulty breathing. - Related Data Home Medications Medication Instructions Recorded Confirmed Levothyroxine Sodium [Synthroid] 200 mcg PO DAILY 01/12/19 09/14/20 Mupirocin [Mupirocin 2%] 1 applic TOPICAL BID 09/14/20 09/14/20 Previous Rx's Medication Instructions Recorded Lactulose [Cephulac] 20 gm PO BID PRN #300 ml 09/23/20 Lidocaine Viscous [Xylocaine 30 ml PO QID PRN #200 ml 09/23/20 Viscous 2%] Ondansetron Odt [Zofran ODT] 4 mg PO Q8HR PRN #10 tab 09/23/20 Acetaminophen Tab [Tylenol] 650 mg PO Q4HR PRN tab 09/26/20 HYDROcodone/APAP 10-325MG [[place] 1 tab PO Q6H #12 tab 09/26/20 10-325] Mag Hydrox/Al Hydrox/Simeth 30 ml PO QID PRN #300 ml 09/26/20 [Maalox] Morphine Sulfate ER [Ms Contin] 15 mg PO Q12HR PRN #12 tab 09/26/20 Pantoprazole [Protonix] 40 mg PO DAILY 30 Days #30 tab 09/26/20 QUEtiapine FUMARATE [SEROquel] 25 mg PO HS 30 Days #30 tab 09/26/20 lisinopriL 40 mg PO DAILY 30 Days #30 tab 09/26/20 Allergies Allergy/AdvReac Type Severity Reaction Status Date / Time latex Allergy Unknown Verified 10/20/20 13:03 vancomycin Allergy Rash/Hives Verified 10/20/20 13:03 Review of Systems ROS Statement: Those systems with pertinent positive or pertinent negative responses have been documented in the HPI. ROS Other: All systems not noted in ROS Statement are negative. Past Medical History Past Medical History: Atrial Fibrillation, Coronary Artery Disease (CAD), Cancer, Chest Pain / Angina, Eye Disorder, GERD/Reflux, Hypertension, M usculoskeletal Disorder, Osteoarthritis (OA) Additional Past Medical History / Comment(s): Peptic ulcer, chronic back pain, laryngeal cancer/tx-approx 20 yrs ago, Guzman's Palsy, head injury in 2012, cataracts bilateral. History of Any Multi-Drug Resistant Organisms: None Reported, MRSA Date of last positivie culture/infection: 1997 MDRO Source:: left shoulder Past Surgical History: Bariatric Surgery, Bowel Resection, Cholecystectomy, Heart Catheterization, Hysterectomy, Joint Replacement, Orthopedic Surgery Additional Past Surgical History / Comment(s): Bilateral knee replacement, left shoulder rotator cuff surgery, gastric bypass, D&C, EGD/colonoscopy, laryngeal tumor removed, Ganglion Cysts both wrists.PAIN CLINIC INJECTIONS, colostomy Past Anesthesia/Blood Transfusion Reactions: No Reported Reaction Date of Last Stent Placement:: 2012 Past Psychological History: Anxiety, Depression, Panic Disorder Smoking Status: Never smoker Past Alcohol Use History: None Reported Past Drug Use History: None Reported - Past Family History Mother Family Medical History: Cancer, Congestive Heart Failure (CHF), Diabetes Mellitus, Hypertension Additional Family Medical History / Comment(s): Mother passed at 93. Father Family Medical History: Myocardial Infarction ([place]) Additional Family Medical History / Comment(s): Father of a [place] at the age of 39 yrs. Sister(s) Family Medical History: Cancer Brother(s) Family Medical History: Cancer, Myocardial Infarction ([place]) General Exam - General Exam Comments Initial Comments: GENERAL: Patient is well-developed and well-nourished. Patient is nontoxic and well- hydrated and is in mild distress. ENT: Neck is soft and supple. No significant lymphadenopathy is noted. Oropharynx is clear. Moist mucous membranes. Neck has full range of motion without eliciting any pain. EYES: The sclera were anicteric and conjunctiva were pink and moist. Extraocular movements were intact and pupils were equal round and reactive to light. Eyelids were unremarkable. PULMONARY: Unlabored respirations. Good breath sounds bilaterally. No audible rales rhonchi or wheezing was noted. CARDIOVASCULAR: There is a regular rate and rhythm without any murmurs gallops or rubs. ABDOMEN: Patient has tenderness in the suprapubic region as well as the right lower quadrant and the patient does have some rebound in those areas as well. SKIN: Skin is clear with no lesions or rashes and otherwise unremarkable. NEUROLOGIC: Patient is alert and oriented x3. Cranial nerves II through XII are grossly intact. Motor and sensory are also intact. Normal speech, volume and content. Symmetrical smile. MUSCULOSKELETAL: Normal extremities with adequate strength and full range of motion. No lower extremity swelling or edema. No calf tenderness. LYMPHATICS: No significant lymphadenopathy is noted PSYCHIATRIC: Normal psychiatric evaluation. Limitations: no limitations Course Vital Signs 10/20/20 10/20/20 12:57 15:30 Temperature 97.9 F Pulse Rate 105 H 94 Respiratory 20 18 Rate Blood Pressure 125/80 121/82 O2 Sat by Pulse 98 98 Oximetry Medical Decision Making - Medical Decision Making Patient was noted to have a urinary tract infection at 4:06 PM. He started Rocephin at this time. Patient got 2 doses of Dilaudid but continued to have pain was comfortable going home. I spoke with Dr. Burt he agreed to be on consult the patient he wanted the patient to Dr. Medina. I spoke with Dr. Medina he agreed to admit the patient admitted the patient I wrote admitting orders. Patient also had some white cells in the urine so started the patient some Rocephin. - Lab Data Result diagrams: 10/20/20 14:06 10/20/20 14:06 Lab Results 10/20/20 10/20/20 10/20/20 Range/Units 14:06 14:06 14:06 WBC 7.4 (3.8-10.6) k/uL RBC 4.26 (3.80-5.40) m/uL Hgb 12.6 (11.4-16.0) gm/dL Hct 37.9 (34.0-46.0) % MCV 89.0 (80.0-100.0) fL MCH 29.5 (25.0-35.0) pg MCHC 33.2 (31.0-37.0) g/dL RDW 16.4 H (11.5-15.5) % Plt Count 224 (150-450) k/uL MPV 8.1 Neutrophils % Not Reportable Neutrophils % (Manual) 17 % Lymphocytes % Not Reportable Lymphocytes % (Manual) 77 % Monocytes % Not Reportable Monocytes % (Manual) 4 % Eosinophils % Not Reportable Eosinophils % (Manual) 2 % Basophils % Not Reportable Neutrophils # Not Reportable Neutrophils # (Manual) 1.26 L (1.3-7.7) k/uL Lymphocytes # Not Reportable Lymphocytes # (Manual) 5.70 H (1.0-4.8) k/uL Monocytes # Not Reportable Monocytes # (Manual) 0.30 (0-1.0) k/uL Eosinophils # Not Reportable Eosinophils # (Manual) 0.15 (0-0.7) k/uL Basophils # Not Reportable Nucleated RBCs 0 (0-0) /100 WBC Manual Slide Review Performed Anisocytosis Slight PT 12.5 H (9.0-12.0) sec INR 1.2 H (<1.2) APTT 22.1 (22.0-30.0) sec Sodium (137-145) mmol/L Potassium (3.5-5.1) mmol/L Chloride (98-107) mmol/L Carbon Dioxide (22-30) mmol/L Anion Gap mmol/L BUN (7-17) mg/dL Creatinine (0.52-1.04) mg/dL Est GFR (CKD-EPI)AfAm (>60 ml/min/1.73 sqM) Est GFR (CKD-EPI)NonAf (>60 ml/min/1.73 sqM) Glucose (74-99) mg/dL Plasma Lactic Acid Anthony (0.7-2.0) mmol/L Calcium (8.4-10.2) mg/dL Total Bilirubin (0.2-1.3) mg/dL AST (14-36) U/L ALT (4-34) U/L Alkaline Phosphatase (38-126) U/L Total Protein (6.3-8.2) g/dL Albumin (3.5-5.0) g/dL Amylase (30-110) U/L Lipase (23-300) U/L Urine Color Yellow Urine Appearance Cloudy H (Clear) Urine pH 5.5 (5.0-8.0) Ur Specific Felt 1.026 (1.001-1.035) Urine Protein Trace H (Negative) Urine Glucose (UA) Negative (Negative) Urine Ketones Negative (Negative) Urine Blood Negative (Negative) Urine Nitrite Negative (Negative) Urine Bilirubin Negative (Negative) Urine Urobilinogen <2.0 (<2.0) mg/dL Ur Leukocyte Esterase Large H (Negative) Urine RBC 5 (0-5) /hpf Urine WBC 68 H (0-5) /hpf Ur Squamous Epith Cells 9 H (0-4) /hpf Hyaline Casts 43 H (0-2) /lpf Urine Mucus Rare H (None) /hpf 10/20/20 10/20/20 Range/Units 14:06 14:06 WBC (3.8-10.6) k/uL RBC (3.80-5.40) m/uL Hgb (11.4-16.0) gm/dL Hct (34.0-46.0) % MCV (80.0-100.0) fL MCH (25.0-35.0) pg MCHC (31.0-37.0) g/dL RDW (11.5-15.5) % Plt Count (150-450) k/uL MPV Neutrophils % Neutrophils % (Manual) % Lymphocytes % Lymphocytes % (Manual) % Monocytes % Monocytes % (Manual) % Eosinophils % Eosinophils % (Manual) % Basophils % Neutrophils # Neutrophils # (Manual) (1.3-7.7) k/uL Lymphocytes # Lymphocytes # (Manual) (1.0-4.8) k/uL Monocytes # Monocytes # (Manual) (0-1.0) k/uL Eosinophils # Eosinophils # (Manual) (0-0.7) k/uL Basophils # Nucleated RBCs (0-0) /100 WBC Manual Slide Review Anisocytosis PT (9.0-12.0) sec INR (<1.2) APTT (22.0-30.0) sec Sodium 140 (137-145) mmol/L Potassium 3.4 L (3.5-5.1) mmol/L Chloride 110 H (98-107) mmol/L Carbon Dioxide 17 L (22-30) mmol/L Anion Gap 13 mmol/L BUN 18 H (7-17) mg/dL Creatinine 0.89 (0.52-1.04) mg/dL Est GFR (CKD-EPI)AfAm 74 (>60 ml/min/1.73 sqM) Est GFR (CKD-EPI)NonAf 64 (>60 ml/min/1.73 sqM) Glucose 109 H (74-99) mg/dL Plasma Lactic Acid Anthony 2.5 H* (0.7-2.0) mmol/L Calcium 9.1 (8.4-10.2) mg/dL Total Bilirubin 0.6 (0.2-1.3) mg/dL AST 55 H (14-36) U/L ALT 22 (4-34) U/L Alkaline Phosphatase 180 H (38-126) U/L Total Protein 6.7 (6.3-8.2) g/dL Albumin 3.3 L (3.5-5.0) g/dL Amylase <30 L (30-110) U/L Lipase 98 (23-300) U/L Urine Color Urine Appearance (Clear) Urine pH (5.0-8.0) Ur Specific Felt (1.001-1.035) Urine Protein (Negative) Urine Glucose (UA) (Negative) Urine Ketones (Negative) Urine Blood (Negative) Urine Nitrite (Negative) Urine Bilirubin (Negative) Urine Urobilinogen (<2.0) mg/dL Ur Leukocyte Esterase (Negative) Urine RBC (0-5) /hpf Urine WBC (0-5) /hpf Ur Squamous Epith Cells (0-4) /hpf Hyaline Casts (0-2) /lpf Urine Mucus (None) /hpf Disposition Clinical Impression: Abdominal pain, Urinary tract infection Disposition: ADMITTED IP TO THIS HOSP Referrals: Joey Valdez MD [Primary Care Provider] - 1-2 days Time of Disposition: 16:18
[2020-10-20 14:33] LABS: INR 1.2 (<1.2); Partial Thromboplastin Time 22.1 sec (22.0-30.0); Prothrombin Time 12.5 sec (9.0-12.0)
[2020-10-20 14:34] LABS: ALT 22 U/L (4-34); AST 55 U/L (14-36); African American GFR (CKD) 74 (>60 ml/min/1.73 sqM); Albumin 3.3 g/dL (3.5-5.0); Alkaline Phosphatase 180 U/L (38-126); Amylase <30 U/L (30-110); Anion Gap 13 mmol/L; Blood Urea Nitrogen 18 mg/dL (7-17); Calcium 9.1 mg/dL (8.4-10.2); Carbon Dioxide 17 mmol/L (22-30); Chloride 110 mmol/L (98-107); Glucose 109 mg/dL (74-99); Lipase 98 U/L (23-300); Non-African American GFR(CKD) 64 (>60 ml/min/1.73 sqM); Potassium 3.4 mmol/L (3.5-5.1); Sodium 140 mmol/L (137-145); Total Bilirubin 0.6 mg/dL (0.2-1.3); Total Protein 6.7 g/dL (6.3-8.2)
[2020-10-20 14:54] LABS: Eosinophils # (M) 0.15 k/uL (0-0.7); Neutrophils # (M) 1.26 k/uL (1.3-7.7); Neutrophils % (M) 17 %; Nucleated Red Blood Cells 0 /100 WBC (0-0); Total Cells Counted 100
--- NOTE | 2020-10-20 16:02 | CT ---
EXAMINATION TYPE: CT abdomen pelvis w con DATE OF EXAM: 10/20/2020 COMPARISON: 09/15/2020 INDICATION: periumbilical pain and umbilical discharge DLP: 1074.7 mGycm, Automated exposure control for dose reduction was used. CONTRAST: 100 mL of Isovue 300. Study performed without Oral Contrast TECHNIQUE: Axial images were obtained from above the diaphragm to the pubic rami in the axial plane a t 5 mm thick sections. Reconstructed images are reviewed on the computer in the coronal plane. FINDINGS: Limited CT sections are obtained the lung bases. The lung bases are clear. Coronary artery calcific ation is noted. CT ABDOMEN: Post gastric sleeve surgical changes are evident. There is a 2.4 x 2.1 cm collection whic h may be within the fat at the periumbilical region. Small seroma or abscess could be considered. Int raperitoneal extension is not identified. Liver: There is some ill-defined hypodensity adjacent to the gallbladder bed fossa and ligamentum ter es. This appears better visualized on the current exam. Diffuse fatty infiltration is through the lavell er. This may be slow interval change from previous exams. Spleen: Normal Pancreas: Normal Adrenal glands: The adrenal glands are normal. Gallbladder: Surgically absent. Kidneys: No masses are evident. No hydronephrosis is present. There is a 0.9 cm hypodensity in the inferior medial right kidney may be a small cyst. Delayed images were obtained through the kidneys, which remain unremarkable. Aorta: Vascular calcification is within the aorta. Inferior vena cava: Normal. CT PELVIS: Ostomy is in left lower quadrant. Postsurgical bowel changes are within the pelvis. Loops of bowel within the abdomen and pelvis are normal. There are loops of bowel which are incom pletely distended or lack oral contrast limiting their evaluation. Appendix: Not identified. Some postsurgical change suggests this may be surgically absent. Urinary bladder: Decompressed limiting evaluation. Genitourinary structures: Uterus and ovaries are not identified. Osseous structures: No suspicious lytic or sclerotic lesions. Facet degenerative changes are in the l ower lumbar spine. There is some scoliosis present. IMPRESSIONS: 1. Small collection within the subcutaneous tissues adjacent to the abdominal wall could be a small seroma or abscess. 2. Hypodensity within the liver adjacent to ligamentum teres and gallbladder bed fossa. Consider fiona elation with ultrasound. 3. Moderate fatty infiltration the liver. 4. Postsurgical changes
[2020-10-20] MEDS ORDERED: cefTRIAXone IN SWFI 1,000 MG/10 ML SYRINGE IVP STA (16:06)
[2020-10-20] MEDS: HYDROmorphone 0.5 MG/0.5 ML SYRINGE IVP PRN (19:20)
--- NOTE | 2020-10-20 21:24 | HP ---
HISTORY AND PHYSICAL DATE OF SERVICE: 10/20/2020 CHIEF COMPLAINT: Abdominal pain. HISTORY OF PRESENT ILLNESS: This 74-year-old woman with a past medical history of atrial fibrillation, history of CAD, history of chronic pain, history of GERD, hypertension, DJD, history of MRSA being followed Dr. Valdez in the outpatient setting, recently had a colectomy for diverticulitis, mesenteric abscess, lesions causing partial small-bowel obstruction and the patient had colostomy and lysis of adhesions. The patient recently admitted with small bowel ileus and improved with consult management. Patient went home. Now the patient is complaining of abdominal pain, mainly on the umbilicus. The patient also complaining of some periumbilical discharge. Also, the patient underwent a CT scan of abdomen and pelvis, which showed a small collection within the subcutaneous tissue adjacent to the abdominal wall, could be a small seroma or abscess around the umbilical area. Hypodensity within the liver adjacent to the ligamentum teres gallbladder. Alkaline phosphatase also noted. Correlation with ultrasound. to moderate fatty infiltration postsurgical changes also noted. The white count is normal. There is no history of fever, rigors, chills. The patient also had elevated lactic acid. This patient admitted for evaluation and treatment. There is no history of any rigors, chills. Patient has possible UTI also. PAST MEDICAL HISTORY: History of recent colostomy and other medical issues as mentioned earlier, history atrial fibrillation, history of CAD, history of GERD, hypertension, DJD, history of peptic ulcer disease, history of bariatric surgery, history of bowel resection. MEDICATIONS: Home medications are Ativan, MS Contin, Lasix, lisinopril, Seroquel, Protonix, Zofran, Synthroid, Maalox, xylocaine, Cephulac, [place], Tylenol. Doses were reviewed. ALLERGIES: LATEX AND VANCOMYCIN. FAMILY HISTORY: CHF, history of diabetes. History of hypertension. SOCIAL HISTORY: Previous history of smoking, no history of current smoking, alcohol intake. REVIEW OF SYSTEMS: ENT: Diminished vision. CARDIOVASCULAR: As mentioned. RESPIRATORY: As mentioned. GI: As mentioned earlier. : No dysuria. NERVOUS SYSTEM: No numbness or weakness. ALLERGY: No asthma or hayfever. MUSCULOSKELETAL: As mentioned earlier. HEMATOLOGY/ONCOLOGY: No history of diabetes or hypothyroidism. CONSTITUTIONAL: As mentioned earlier. DERMATOLOGY: Negative. RHEUMATOLOGY: As mentioned earlier. PHYSICAL EXAMINATION: The patient is alert and oriented x3. The pulse is 89, blood pressure 97/52, respiration 18, temperature 97.9, pulse ox 98% on room air. HEENT: Conjunctivae normal. Oral mucosa moist. NECK: No jugular venous distention. No lymph node enlargement. CARDIOVASCULAR SYSTEM: S1, S2, muffled. RESPIRATORY: Breath sounds diminished at the bases. A few scattered rhonchi, no crackles. ABDOMEN: Soft. Colostomy present. Mild diffuse tenderness present in the periumbilical area. Some minimal mucopurulent discharge also from the periumbilical area noted. No guarding. No rigidity. Bowel sounds present. NERVOUS SYSTEM: As mentioned. Moves all four limbs. No focal motor or sensory deficits. LYMPHATICS: No lymph nodes palpable in the neck or axillae. SKIN: No rash. JOINTS: No active deforming arthropathy. LABS: WBC 7 hemoglobin 12.6. INR 1.2. Sodium 140, potassium 3.4, CO2 17, lactic acid 2.4. ASSESSMENT: 1. Abdominal pain and discharge around the umbilicus, possible abscess with possible sepsis present on admission. 2. Hypokalemia. 3. Elevated lactic acid. 4. Increased AST. 5. Possible UTI, acute urinary tract infection present on admission. 6. History of recent colectomy done for diverticulitis, mesenteric abscess lesions causing partial small-bowel obstruction with end colostomy and lysis of adhesions. 7. Atrial fibrillation history. 8. History of coronary artery disease. 9. History of chest pain. 10.Hypertension history. 11.History of peptic ulcer disease. 12.History of laryngeal cancer. 13.History of Guzman's palsy. 14.History of MRSA. 15.History of bariatric surgery. 16.History of bowel resection. 17.History of cholecystectomy. 18.History of knee replacements. 19.History of anxiety, depression. 20.Panic disorder. 21.Obesity with body mass of 31.1. RECOMMENDATION AND DISCUSSION: This 75-year-old woman who presented with multiple complex medical issues, at this time I recommend initiate empiric antibiotics, symptomatic treatment with pain medications surgical evaluation, CT scan noted. Obtain cultures. Infectious Disease evaluation. Resume the home medications. Prognosis extremely guarded because of multiple complex medical issues. Further recommendations to follow. The patient is scheduled for reversal of colostomy by Dr. Burt. We will consult surgery and continue to monitor, but again we will obtain the cultures also. See orders for details. MMODL / IJN: [id number] / TEODORO
[2020-10-20] MEDS: PIPERACILLIN-TAZOBACTAM 3.375 GM in SODIUM CHLORIDE 0.9% 100 ML IVPB SCH (22:19)
[2020-10-20] MEDS: HEPARIN SODIUM,PORCINE/PF 5,000 UNIT/0.5 ML SYRINGE SQ SCH (22:24)
[2020-10-20] MEDS: QUEtiapine 25 MG TAB PO SCH (22:41)
--- NOTE | 2020-10-20 23:06 | US ---
EXAMINATION TYPE: US liver DATE OF EXAM: 10/20/2020 COMPARISON: CT 2020, US 2016 CLINICAL HISTORY: liver abscess?. ?Liver abscess per order. Hx cholecystectomy, gastric sleeve, colos reji. EXAM MEASUREMENTS: Liver Length: 13.5 cm CBD: 0.69 cm Right Kidney: 10.2 x 4.9 x 3.4 cm Limited due to overlying bowel gas. Pancreas: Not well seen due to gas. Liver: Increased echogenicity, appears coarse in echotexture. Gallbladder: Surgically absent. Evidence for sonographic Collazo's sign: No CBD: Measures 0. 7 cm post-cholecystectomy. Right Kidney: Renal pelvis appears slightly dilated medially. IMPRESSION: No focal liver defect. No evidence of an abscess. No dilated ducts. Cholecystectomy noted. There is e vidence of fatty infiltration of the liver.
[2020-10-21] MEDS: HYDROmorphone 0.5 MG/0.5 ML SYRINGE IVP PRN ×4 (00:42→19:47)
[2020-10-21] MEDS: PIPERACILLIN-TAZOBACTAM 3.375 GM in SODIUM CHLORIDE 0.9% 100 ML IVPB SCH ×3 (02:36→18:53)
[2020-10-21] MEDS: LEVOTHYROXINE 100 MCG TAB PO SCH ×2 (05:01→10:33)
[2020-10-21] MEDS: PANTOPRAZOLE 40 MG/10 ML VIAL IVP SCH (07:36)
[2020-10-21 09:27] LABS: MCHC 32.1 g/dL (32.0-37.0); MCV 90.3 fL (80.0-97.0); Mean Platelet Volume 11.6 fL (9.5-12.2); Platelet Count 161 X 10*3/uL (140-440); RDW 17.3 % (11.5-14.5); WBC 4.73 X 10*3/uL (4.50-10.00)
[2020-10-21 10:32] LABS: Basophils # (A) 0.04 X 10*3/uL (0.00-0.10); Basophils % (A) 0.8 %; Eosinophils # (A) 0.36 X 10*3/uL (0.04-0.35); Eosinophils % (A) 7.6 %; Lymphocytes # (A) 2.97 X 10*3/uL (0.90-5.00); Lymphocytes % (A) 62.8 %; Monocytes # (A) 0.61 X 10*3/uL (0.20-1.00); Monocytes % (A) 12.9 %; Neutrophils # (A) 0.74 X 10*3/uL (1.80-7.70); Neutrophils % (A) 15.7 %
[2020-10-21] MEDS: lisinopriL 20 MG TAB PO SCH (10:33)
[2020-10-21] MEDS: HEPARIN SODIUM,PORCINE/PF 5,000 UNIT/0.5 ML SYRINGE SQ SCH ×2 (10:33→19:43)
[2020-10-21] MEDS: FUROSEMIDE 20 MG TAB PO SCH (10:33)
--- NOTE | 2020-10-21 11:10 | P.GSCN ---
<Birdie Pritchett - Last Filed: 10/21/20 11:00> History of Present Illness Consult date: 10/21/20 History of present illness: CHIEF COMPLAINT: Abdominal pain HISTORY OF PRESENT ILLNESS: This is a 74-year-old female with a known history of chronic constipation, prior hospitalization in September with ileus. She has past history of diverticulitis with mesenteric abscess and adhesions causing partial small bowel obstruction and is status post sigmoid colectomy with end colostomy and lysis of adhesions on 07/10/[address] Burt. Patient comes into the hospital with complaints of mid abdominal pain at her old incision site. Her ostomy has been functioning. She has been having stool and gas output. Patient was scheduled for a colostomy reversal on Saturday. Patient denies any nausea or vomiting, fever chills or sweats. She had a computed tomography scan of the abdomen and pelvis showing a small collection within the subcutaneous tissue adjacent to the abdominal wall could be a small seroma or abscess. It is measuring about 2.4 x 2.1 cm. Patient is currently on antibiotics. White count 7.4. Lactic acid was elevated on admission and has now normalized. PAST MEDICAL HISTORY: See list. PAST SURGICAL HISTORY: See list. MEDICATIONS: See list. ALLERGIES: See list. SOCIAL HISTORY: No illicit drug use. REVIEW OF SYSTEMS: CONSTITUTIONAL: Denies fever or chills. HEENT: Denies blurred vision, vision changes, or eye pain. Denies hemoptysis CARDIOVASCULAR: Denies chest pain or pressure. RESPIRATORY: No shortness of breath. GASTROINTESTINAL: See HPI for pertinent findings HEMATOLOGIC: Denies bleeding disorders. GENITOURINARY: Denies any blood in urine or increased urinary frequency. SKIN: Denies pruitis. Denies rash. PHYSICAL EXAM: VITAL SIGNS: Reviewed GENERAL: Well-developed in no acute distress. HEENT: No sclera icterus. Extraocular movements grossly intact. Moist buccal mucosa. Head is atraumatic, normocephalic. No nasal drainage. ABDOMEN: Soft. Nondistended. Tenderness at mid abdomen at incision site. Old incision site is healed. No erythema or significant drainage noted. Air present in her ostomy bag on the left of the abdomen. NEUROLOGIC: Alert and oriented. Cranial nerves II through XII grossly intact. LABORATORY DATA: WBC is 4.73 hemoglobin is 9 platelets 161 Sodium is 140 potassium is 3.4 creatinine 0.9 lactic 2.5 down to 0.9 AST 55 ALT 22 alk phos 180 lipase 98 IMAGING: Computed tomography scan of the abdomen and pelvis showing a small collection within the subcutaneous tissue adjacent to the abdominal wall could be a small seroma or abscess. It is measuring about 2.4 x 2.1 cm. hypodensity within the liver adjacent to the ligamentum teres and gallbladder bed. Also consider correlation with ultrasound moderate fatty infiltration of was her. Post surgical changes. Liver ultrasound no focal liver defect. No evidence of an abscess. No dilated ducts. Cholecystectomy noted. There is evidence of fatty infiltration of the liver ASSESSMENT: 1. Abdominal pain 2. Small seroma versus possible abscess noted on CAT scan 3. History of ileus and chronic constipation 4. History of diverticulitis with mesenteric abscess and adhesions causing partial small bowel obstruction and is status post sigmoid colectomy with end colostomy and lysis of adhesions on 07/10/2020 PLAN: -Start patient on clear liquid diet -Continue antibiotics per ID -Continue pain medication as needed -Further recommendations forthcoming per surgeon Thank you for this consultation Physician Machine Finisher note has been reviewed by physician. Signing provider agrees with the documented findings, assessment, and plan of care. 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 History of Any Multi-Drug Resistant Organisms: MRSA Year Discovered:: 1997 MDRO Source:: left shoulder Past Surgical History: Bariatric Surgery, Bowel Resection, Cholecystectomy, Heart Catheterization, Heart Catheterization With Stent, Hysterectomy, Joint Replacement, Orthopedic Surgery Additional Past Surgical History / Comment(s): Bilateral knee replacement, left shoulder rotator cuff surgery, gastric bypass, D&C, EGD/colonoscopy, laryngeal tumor removed 30 radiation treatments about 20 years ago, Ganglion Cysts both wrists.PAIN CLINIC INJECTIONS, colostomy 06/26, Past Anesthesia/Blood Transfusion Reactions: No Reported Reaction Date of Last Stent Placement:: 2003 Past Psychological History: Anxiety, Depression, Panic Disorder Additional Psychological History / Comment(s): pt lives alone, appartment 4 stairs uses home nursing care Smoking Status: Former smoker Past Alcohol Use History: None Reported Additional Past Alcohol Use History / Comment(s): Pt started smoking in 1959 and quit in 1980, 1ppd. Past Drug Use History: None Reported - Past Family History Mother Family Medical History: Cancer, Congestive Heart Failure (CHF), Diabetes Mellitus, Hypertension Additional Family Medical History / Comment(s): Mother passed at 93. Father Family Medical History: Myocardial Infarction (NH) Additional Family Medical History / Comment(s): Father of a NH at the age of 39 yrs. Sister(s) Family Medical History: Cancer Brother(s) Family Medical History: Cancer, Myocardial Infarction (NH) Medications and Allergies Home Medications Medication Instructions Recorded Confirmed Type Levothyroxine Sodium [Synthroid] 200 mcg PO DAILY 01/12/19 10/20/20 History Lactulose [Cephulac] 20 gm PO BID PRN #300 ml 09/23/20 10/20/20 Rx Lidocaine Viscous [Xylocaine 30 ml PO QID PRN #200 ml 09/23/20 10/20/20 Rx Viscous 2%] Ondansetron Odt [Zofran ODT] 4 mg PO Q8HR PRN #10 tab 09/23/20 10/20/20 Rx Acetaminophen Tab [Tylenol] 650 mg PO Q4HR PRN tab 09/26/20 10/20/20 Rx Mag Hydrox/Al Hydrox/Simeth 30 ml PO QID PRN #300 ml 09/26/20 10/20/20 Rx [Maalox] Pantoprazole [Protonix] 40 mg PO DAILY 30 Days #30 tab 09/26/20 10/20/20 Rx QUEtiapine FUMARATE [SEROquel] 25 mg PO HS 30 Days #30 tab 09/26/20 10/20/20 Rx lisinopriL 40 mg PO DAILY 30 Days #30 tab 09/26/20 10/20/20 Rx Furosemide [Lasix] 20 mg PO DAILY 10/20/20 10/20/20 History HYDROcodone/APAP 10-325MG [Ryde 1 tab PO Q6H PRN 10/20/20 10/20/20 History 10-325] LORazepam [Ativan] 0.25 - 0.5 mg PO BID PRN 10/20/20 10/20/20 History Morphine Sulfate ER [Ms Contin] 15 mg PO DAILY PRN 10/20/20 10/20/20 History Allergies Allergy/AdvReac Type Severity Reaction Status Date / Time latex Allergy Unknown Verified 10/20/20 16:19 vancomycin Allergy Rash/Hives Verified 10/20/20 16:19 Surgical - Exam Vital Signs Temp Pulse Resp BP Pulse Ox 97.9 F 105 H 20 125/80 98 10/20/20 12:57 10/20/20 12:57 10/20/20 12:57 10/20/20 12:57 10/20/20 12:57 Results - Labs 10/21/20 05:43 10/20/20 14:06 Abnormal Lab Results - Last 24 Hours (Table) 10/20/20 10/20/20 10/20/20 Range/Units 14:06 14:06 14:06 RBC (4.10-5.20) X 10*6/uL Hgb (12.0-15.0) g/dL Hct (37.2-46.3) % RDW 16.4 H (11.5-15.5) % Neutrophils # (1.80-7.70) X 10*3/uL Neutrophils # (Manual) 1.26 L (1.3-7.7) k/uL Lymphocytes # (Manual) 5.70 H (1.0-4.8) k/uL Eosinophils # (0.04-0.35) X 10*3/uL PT 12.5 H (9.0-12.0) sec INR 1.2 H (<1.2) Potassium (3.5-5.1) mmol/L Chloride (98-107) mmol/L Carbon Dioxide (22-30) mmol/L BUN (7-17) mg/dL Glucose (74-99) mg/dL Plasma Lactic Acid Anthony (0.7-2.0) mmol/L AST (14-36) U/L Alkaline Phosphatase (38-126) U/L Albumin (3.5-5.0) g/dL Amylase (30-110) U/L Urine Appearance Cloudy H (Clear) Urine Protein Trace H (Negative) Ur Leukocyte Esterase Large H (Negative) Urine WBC 68 H (0-5) /hpf Ur Squamous Epith Cells 9 H (0-4) /hpf Hyaline Casts 43 H (0-2) /lpf Urine Mucus Rare H (None) /hpf 10/20/20 10/20/20 10/21/20 Range/Units 14:06 14:06 05:43 RBC 3.10 L (4.10-5.20) X 10*6/uL Hgb 9.0 L (12.0-15.0) g/dL Hct 28.0 L (37.2-46.3) % RDW 17.3 H (11.5-15.5) % Neutrophils # 0.74 L (1.80-7.70) X 10*3/uL Neutrophils # (Manual) (1.3-7.7) k/uL Lymphocytes # (Manual) (1.0-4.8) k/uL Eosinophils # 0.36 H (0.04-0.35) X 10*3/uL PT (9.0-12.0) sec INR (<1.2) Potassium 3.4 L (3.5-5.1) mmol/L Chloride 110 H (98-107) mmol/L Carbon Dioxide 17 L (22-30) mmol/L BUN 18 H (7-17) mg/dL Glucose 109 H (74-99) mg/dL Plasma Lactic Acid Anthony 2.5 H* (0.7-2.0) mmol/L AST 55 H (14-36) U/L Alkaline Phosphatase 180 H (38-126) U/L Albumin 3.3 L (3.5-5.0) g/dL Amylase <30 L (30-110) U/L Urine Appearance (Clear) Urine Protein (Negative) Ur Leukocyte Esterase (Negative) Urine WBC (0-5) /hpf Ur Squamous Epith Cells (0-4) /hpf Hyaline Casts (0-2) /lpf Urine Mucus (None) /hpf Microbiology - Last 24 Hours (Table) 10/20/20 14:06 Urine Culture - Preliminary Urine,Clean Catch Diabetes panel 10/20/20 Range/Units 14:06 Sodium 140 (137-145) mmol/L Potassium 3.4 L (3.5-5.1) mmol/L Chloride 110 H (98-107) mmol/L Carbon Dioxide 17 L (22-30) mmol/L BUN 18 H (7-17) mg/dL Creatinine 0.89 (0.52-1.04) mg/dL Glucose 109 H (74-99) mg/dL Calcium 9.1 (8.4-10.2) mg/dL AST 55 H (14-36) U/L ALT 22 (4-34) U/L Alkaline Phosphatase 180 H (38-126) U/L Total Protein 6.7 (6.3-8.2) g/dL Albumin 3.3 L (3.5-5.0) g/dL Calcium panel 10/20/20 Range/Units 14:06 Calcium 9.1 (8.4-10.2) mg/dL Albumin 3.3 L (3.5-5.0) g/dL Pituitary panel 10/20/20 Range/Units 14:06 Sodium 140 (137-145) mmol/L Potassium 3.4 L (3.5-5.1) mmol/L Chloride 110 H (98-107) mmol/L Carbon Dioxide 17 L (22-30) mmol/L BUN 18 H (7-17) mg/dL Creatinine 0.89 (0.52-1.04) mg/dL Glucose 109 H (74-99) mg/dL Calcium 9.1 (8.4-10.2) mg/dL Adrenal panel 10/20/20 Range/Units 14:06 Sodium 140 (137-145) mmol/L Potassium 3.4 L (3.5-5.1) mmol/L Chloride 110 H (98-107) mmol/L Carbon Dioxide 17 L (22-30) mmol/L BUN 18 H (7-17) mg/dL Creatinine 0.89 (0.52-1.04) mg/dL Glucose 109 H (74-99) mg/dL Calcium 9.1 (8.4-10.2) mg/dL Total Bilirubin 0.6 (0.2-1.3) mg/dL AST 55 H (14-36) U/L ALT 22 (4-34) U/L Alkaline Phosphatase 180 H (38-126) U/L Total Protein 6.7 (6.3-8.2) g/dL Albumin 3.3 L (3.5-5.0) g/dL <George Gamble - Last Filed: 10/21/20 16:29> History of Present Illness History of present illness: As above. Patient's CAT scan was reviewed. There is a 2.4 cm fluid collection anterior to the fascia but did not appear to be there one month ago. Patient has no fevers and the white blood cell count is normal. She is still interested in proceeding with ostomy reversal which at this point seems reasonable. Continue antibiotics. May resume diet. Bowel prep on Saturday. Surgical - Exam Vital Signs Temp Pulse Resp BP Pulse Ox 97.9 F 105 H 20 125/80 98 10/20/20 12:57 10/20/20 12:57 10/20/20 12:57 10/20/20 12:57 10/20/20 12:57 Results - Labs 10/21/20 13:20 10/21/20 13:20 Abnormal Lab Results - Last 24 Hours (Table) 10/21/20 10/21/20 10/21/20 Range/Units 05:43 13:20 13:20 RBC 3.10 L 3.53 L (4.10-5.20) X 10*6/uL Hgb 9.0 L 10.5 L (12.0-15.0) g/dL Hct 28.0 L 31.8 L (37.2-46.3) % RDW 17.3 H 16.5 H (11.5-14.5) % Plt Count 134 L (150-450) k/uL Neutrophils # 0.74 L 1.1 L (1.80-7.70) X 10*3/uL Eosinophils # 0.36 H (0.04-0.35) X 10*3/uL Potassium 3.2 L (3.5-5.1) mmol/L Chloride 112 H (98-107) mmol/L Carbon Dioxide 20 L (22-30) mmol/L Glucose 121 H (74-99) mg/dL Calcium 8.3 L (8.4-10.2) mg/dL AST 59 H (14-36) U/L Total Protein 5.3 L (6.3-8.2) g/dL Albumin 2.3 L (3.5-5.0) g/dL Microbiology - Last 24 Hours (Table) 10/20/20 14:06 Urine Culture - Preliminary Urine,Clean Catch Diabetes panel 10/21/20 Range/Units 13:20 Sodium 138 (137-145) mmol/L Potassium 3.2 L (3.5-5.1) mmol/L Chloride 112 H (98-107) mmol/L Carbon Dioxide 20 L (22-30) mmol/L BUN 13 (7-17) mg/dL Creatinine 0.58 (0.52-1.04) mg/dL Glucose 121 H (74-99) mg/dL Calcium 8.3 L (8.4-10.2) mg/dL AST 59 H (14-36) U/L ALT 20 (4-34) U/L Alkaline Phosphatase 103 (38-126) U/L Total Protein 5.3 L (6.3-8.2) g/dL Albumin 2.3 L (3.5-5.0) g/dL Calcium panel 10/21/20 Range/Units 13:20 Calcium 8.3 L (8.4-10.2) mg/dL Albumin 2.3 L (3.5-5.0) g/dL Pituitary panel 10/21/20 Range/Units 13:20 Sodium 138 (137-145) mmol/L Potassium 3.2 L (3.5-5.1) mmol/L Chloride 112 H (98-107) mmol/L Carbon Dioxide 20 L (22-30) mmol/L BUN 13 (7-17) mg/dL Creatinine 0.58 (0.52-1.04) mg/dL Glucose 121 H (74-99) mg/dL Calcium 8.3 L (8.4-10.2) mg/dL Adrenal panel 10/21/20 Range/Units 13:20 Sodium 138 (137-145) mmol/L Potassium 3.2 L (3.5-5.1) mmol/L Chloride 112 H (98-107) mmol/L Carbon Dioxide 20 L (22-30) mmol/L BUN 13 (7-17) mg/dL Creatinine 0.58 (0.52-1.04) mg/dL Glucose 121 H (74-99) mg/dL Calcium 8.3 L (8.4-10.2) mg/dL Total Bilirubin 0.3 (0.2-1.3) mg/dL AST 59 H (14-36) U/L ALT 20 (4-34) U/L Alkaline Phosphatase 103 (38-126) U/L Total Protein 5.3 L (6.3-8.2) g/dL Albumin 2.3 L (3.5-5.0) g/dL
[2020-10-21] MEDS: MORPHINE SULFATE ER 15 MG TABLET PO PRN (12:37)
[2020-10-21 13:40] LABS: Anisocytosis Slight; Basophils % (A) 1 %; Eosinophils # (A) 0.3 k/uL (0-0.7); Eosinophils % (A) 7 %; HCT 31.8 % (34.0-46.0); HGB 10.5 gm/dL (11.4-16.0); Lymphocytes # (A) 2.4 k/uL (1.0-4.8); Lymphocytes % (A) 55 %; MCH 29.9 pg (25.0-35.0); MCHC 33.1 g/dL (31.0-37.0); MCV 90.2 fL (80.0-100.0); Mean Platelet Volume 8.8; Monocytes # (A) 0.3 k/uL (0-1.0); Monocytes % (A) 8 %; Neutrophils # (A) 1.1 k/uL (1.3-7.7); Neutrophils % (A) 26 %; Platelet Count 134 k/uL (150-450); RBC 3.53 m/uL (3.80-5.40); RDW 16.5 % (11.5-15.5); WBC 4.3 k/uL (3.8-10.6)
[2020-10-21 13:58] LABS: ALT 20 U/L (4-34); AST 59 U/L (14-36); African American GFR (CKD) >90 (>60 ml/min/1.73 sqM); Albumin 2.3 g/dL (3.5-5.0); Albumin/Globulin Ratio 0.8; Alkaline Phosphatase 103 U/L (38-126); Anion Gap 6 mmol/L; Blood Urea Nitrogen 13 mg/dL (7-17); Calcium 8.3 mg/dL (8.4-10.2); Carbon Dioxide 20 mmol/L (22-30); Chloride 112 mmol/L (98-107); Glucose 121 mg/dL (74-99); Non-African American GFR(CKD) >90 (>60 ml/min/1.73 sqM); Potassium 3.2 mmol/L (3.5-5.1); Sodium 138 mmol/L (137-145); Total Bilirubin 0.3 mg/dL (0.2-1.3); Total Protein 5.3 g/dL (6.3-8.2)
[2020-10-21] MEDS ORDERED: Magnesium Replacement Protocol 1 EACH MISC MISCELLANE PRN (16:57)
[2020-10-21] MEDS ORDERED: Potassium Replacement Protocol 1 EACH MISC MISCELLANE PRN (16:57)
[2020-10-21 17:00] LABS: Albumin 2.7 g/dL (3.80-4.90); Anion Gap 16.1 mmol/L (4.00-12.00); BUN/Creat Ratio 21.11 Ratio (12.00-20.00); Calcium 7.5 mg/dL (8.7-10.3); Carbon Dioxide 12.9 mmol/L (21.6-31.8); Globulin 2.7 g/dL (1.6-3.3); Potassium 3.6 mmol/L (3.5-5.5); Total Bilirubin 0.4 mg/dL (0.3-1.2); Total Protein 5.4 g/dL (6.2-8.2)
[2020-10-21] MEDS: QUEtiapine 25 MG TAB PO SCH (19:47)
[2020-10-21] MEDS: POTASSIUM CHLORIDE ER 20 MEQ TAB.ER PO SCH ×2 (19:47→21:39)
--- NOTE | 2020-10-21 20:56 | PN ---
PROGRESS NOTE DATE OF SERVICE: 10/21/2020 This 75-year-old woman, who was admitted with abdominal pain, discharge around the umbilicus, has been closely monitored. At this time, patient is on broad spectrum IV antibiotics. The cultures are negative so far. White count is 4.0, hemoglobin 10.5, potassium 3.2. Lactic acid normalized. UA noted. Cultures otherwise negative. PAST MEDICAL HISTORY: Reviewed. REVIEW OF SYSTEMS: CARDIOVASCULAR SYSTEM: No angina. RESPIRATION: As mentioned earlier GI: As mentioned earlier. : As mentioned earlier. NERVOUS SYSTEM: No numbness or weakness. CURRENT MEDICATIONS: Reviewed include Lasix, heparin, Dilaudid, Synthroid, Zestril. Ativan, MS Contin, Protonix, Zosyn. IV doses reviewed. Other medications also reviewed. PHYSICAL EXAMINATION: Patient is alert, oriented x3. Pulse 86, blood pressure 117/60, respiration 18, temperature 98.4, pulse ox normal. CHEST: Normal. RESPIRATIONS: Breath sounds diminished in the bases, no rhonchi, no crackles. ABDOMEN: Soft, mild diffuse tenderness present. LEGS: Are no edema. No swelling. LABS: WBC 4.2, hemoglobin 10.5, platelets 134. Sodium 138, potassium 3.2. ASSESSMENT: 1. Abdominal pain, discharge around umbilicus, possible abscess with possible sepsis present on admission. 2. Hypocalcemia. 3. Elevated lactic acid. 4. Increased AST. 5. Possible acute urinary tract infection present on admission. 6. History of recent colectomy done for diverticulitis, centric abscess lesions causing partial small-bowel obstruction with end colostomy, lysis of adhesions. 7. Atrial fibrillation history. 8. History of coronary artery disease. 9. History of chest pain. 10.Hypertension history. 11.History of peptic ulcer disease. 12.Lung cancer. 13.Hypokalemia. 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 15.History of MRSA. 16.History of bariatric surgery. 17.History of bowel resection. 18.History of cholecystectomy. 19.History of knee replacements. 20.History of anxiety, depression. 21.History of panic disorder. 22.Obesity with body mass index of 31.1. RECOMMENDATIONS AND DISCUSSION: To continue current medications, symptomatic treatment. Continue with broad-spectrum IV antibiotics. Follow the cultures. Closely follow with surgery and DVT prophylaxis. Continue the rest of medications. Supplement potassium. Guarded prognosis. Further recommendations to follow. MMODL / IJN: [id number] /
[2020-10-22] MEDS: HYDROmorphone 0.5 MG/0.5 ML SYRINGE IVP PRN ×5 (00:50→19:13)
[2020-10-22] MEDS: PIPERACILLIN-TAZOBACTAM 3.375 GM in SODIUM CHLORIDE 0.9% 100 ML IVPB SCH ×3 (00:51→19:12)
[2020-10-22] MEDS: LEVOTHYROXINE 100 MCG TAB PO SCH (06:01)
[2020-10-22] MEDS: lisinopriL 20 MG TAB PO SCH (08:10)
[2020-10-22] MEDS: FUROSEMIDE 20 MG TAB PO SCH (08:10)
[2020-10-22] MEDS: PANTOPRAZOLE 40 MG/10 ML VIAL IVP SCH ×2 (08:10→19:58)
[2020-10-22] MEDS: HEPARIN SODIUM,PORCINE/PF 5,000 UNIT/0.5 ML SYRINGE SQ SCH ×2 (08:11→19:58)
--- NOTE | 2020-10-22 10:24 | P.CONS ---
History of Present Illness - Reason for Consult Consult date: 10/21/20 Sepsis Requesting physician: Compa Medina - Chief Complaint Abdominal pain x 1 day - History of Present Illness Patient is a 74-year female with a past medical history significant for diverticulitis with mesenteric abscess and revision was not partial small bowel obstruction in this patient who status post sigmoid colectomy and end colostomy and lysis of condition completed on 07/10/2020 patient subsequently did well postoperatively and the patient was scheduled to have a reversal of her colostomy on 10/24/2020 patient presented to [facility] ER yesterday for evaluation of abdominal pain pain is mostly in the mid abdominal area at her incision site patient describing the pain to be more of a sharp in nature intensity almost 7-8 out of 10 and no radiation patient did have associated nausea but no vomiting he did have decreased stool output in her colostomy yesterday with the symptoms the patient presented to the hospital on admission to the hospital the patient has been afebrile patient did have a normal white count did have elevated procalcitonin of 2.[address] did have a [address] of abdominal pelvis obtained which did show a small collection within the subcutaneous tissue adjacent to the abdominal wall could be a small seroma or abscess hypodensity within the liver adjacent to the ligamentum teres and gallbladder fossa subsequently did have an ultrasound of the liver no focal liver defect no evidence of any abscess no dilated duct patient is being treated with Zosyn infectious disease was consulted for further management of antibiotic therapy Review of Systems Positive point has been mentioned in the HPI rest of the systems are negative 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 History of Any Multi-Drug Resistant Organisms: MRSA Year Discovered:: 1997 MDRO Source:: left shoulder Past Surgical History: Bariatric Surgery, Bowel Resection, Cholecystectomy, Heart Catheterization, Heart Catheterization With Stent, Hysterectomy, Joint Replacement, Orthopedic Surgery Additional Past Surgical History / Comment(s): Bilateral knee replacement, left shoulder rotator cuff surgery, gastric bypass, D&C, EGD/colonoscopy, laryngeal tumor removed 30 radiation treatments about 20 years ago, Ganglion Cysts both wrists.PAIN CLINIC INJECTIONS, colostomy 06/26, Past Anesthesia/Blood Transfusion Reactions: No Reported Reaction Date of Last Stent Placement:: 2003 Past Psychological History: Anxiety, Depression, Panic Disorder Additional Psychological History / Comment(s): pt lives alone, appartment 4 stairs uses home nursing care Smoking Status: Former smoker Past Alcohol Use History: None Reported Additional Past Alcohol Use History / Comment(s): Pt started smoking in 1959 and quit in 1980, 1ppd. Past Drug Use History: None Reported - Past Family History Mother Family Medical History: Cancer, Congestive Heart Failure (CHF), Diabetes Mellitus, Hypertension Additional Family Medical History / Comment(s): Mother passed at 93. Father Family Medical History: Myocardial Infarction (IN) Additional Family Medical History / Comment(s): Father of a IN at the age of 39 yrs. Sister(s) Family Medical History: Cancer Brother(s) Family Medical History: Cancer, Myocardial Infarction (IN) Medications and Allergies Home Medications Medication Instructions Recorded Confirmed Type Levothyroxine Sodium [Synthroid] 200 mcg PO DAILY 01/12/19 10/20/20 History Lactulose [Cephulac] 20 gm PO BID PRN #300 ml 09/23/20 10/20/20 Rx Lidocaine Viscous [Xylocaine 30 ml PO QID PRN #200 ml 09/23/20 10/20/20 Rx Viscous 2%] Ondansetron Odt [Zofran ODT] 4 mg PO Q8HR PRN #10 tab 09/23/20 10/20/20 Rx Acetaminophen Tab [Tylenol] 650 mg PO Q4HR PRN tab 09/26/20 10/20/20 Rx Mag Hydrox/Al Hydrox/Simeth 30 ml PO QID PRN #300 ml 09/26/20 10/20/20 Rx [Maalox] Pantoprazole [Protonix] 40 mg PO DAILY 30 Days #30 tab 09/26/20 10/20/20 Rx QUEtiapine FUMARATE [SEROquel] 25 mg PO HS 30 Days #30 tab 09/26/20 10/20/20 Rx lisinopriL 40 mg PO DAILY 30 Days #30 tab 09/26/20 10/20/20 Rx Furosemide [Lasix] 20 mg PO DAILY 10/20/20 10/20/20 History HYDROcodone/APAP 10-325MG [Grady 1 tab PO Q6H PRN 10/20/20 10/20/20 History 10-325] LORazepam [Ativan] 0.25 - 0.5 mg PO BID PRN 10/20/20 10/20/20 History Morphine Sulfate ER [Ms Contin] 15 mg PO DAILY PRN 10/20/20 10/20/20 History Allergies Allergy/AdvReac Type Severity Reaction Status Date / Time latex Allergy Unknown Verified 10/20/20 16:19 vancomycin Allergy Rash/Hives Verified 10/20/20 16:19 Physical Exam Vitals: Vital Signs Temp Pulse Pulse Pulse Resp BP BP 10/21/20 09:35 98.4 F 86 18 117/68 10/21/20 02:00 98.1 F 88 17 112/69 10/20/20 23:06 97.7 F 93 16 144/75 10/20/20 22:45 98.0 F 90 16 140/63 10/20/20 21:37 83 16 106/49 10/20/20 19:22 85 20 117/61 10/20/20 19:00 88 18 119/61 10/20/20 18:25 88 18 122/58 10/20/20 16:40 89 18 97/54 10/20/20 15:30 94 18 121/82 10/20/20 12:57 97.9 F 105 H 20 125/80 Pulse Ox 10/21/20 09:35 10/21/20 02:00 96 10/20/20 23:06 98 10/20/20 22:45 96 10/20/20 21:37 96 10/20/20 19:22 96 10/20/20 19:00 96 10/20/20 18:25 99 10/20/20 16:40 96 10/20/20 15:30 98 10/20/20 12:57 98 Intake and Output 10/20/20 10/21/20 10/21/20 22:59 06:59 14:59 Other: Voiding Method Toilet # Voids 3 Weight 77.111 kg GENERAL DESCRIPTION: An elderly female lying in bed, no distress. No tachypnea or accessory muscle of respiration use. HEENT: Shows Pallor , no scleral icterus. Oral mucous membrane is dry. No pharyn geal erythema or thrush NECK: Trachea central, no thyromegaly. LUNGS: Unlabored breathing. Clear to auscultation anteriorly. No wheeze or crackle. HEART: S1, S2, regular rate and rhythm. No loud murmur ABDOMEN: Soft, mild abd wall tenderness , guarding or rigidity, no organomegaly EXTREMITIES: No edema of feet. SKIN: No rash, no masses palpable. NEUROLOGICAL: The patient is awake, alert, oriented x3, mood and affect normal. Results CBC & Chem 7: 10/21/20 13:20 10/21/20 13:20 Labs: Abnormal Lab Results - Last 24 Hours (Table) 10/20/20 10/20/20 10/20/20 Range/Units 14:06 14:06 14:06 RBC (4.10-5.20) X 10*6/uL Hgb (12.0-15.0) g/dL Hct (37.2-46.3) % RDW 16.4 H (11.5-15.5) % Neutrophils # (1.80-7.70) X 10*3/uL Neutrophils # (Manual) 1.26 L (1.3-7.7) k/uL Lymphocytes # (Manual) 5.70 H (1.0-4.8) k/uL Eosinophils # (0.04-0.35) X 10*3/uL PT 12.5 H (9.0-12.0) sec INR 1.2 H (<1.2) Potassium (3.5-5.1) mmol/L Chloride (98-107) mmol/L Carbon Dioxide (22-30) mmol/L BUN (7-17) mg/dL Glucose (74-99) mg/dL Plasma Lactic Acid Anthony (0.7-2.0) mmol/L AST (14-36) U/L Alkaline Phosphatase (38-126) U/L Albumin (3.5-5.0) g/dL Amylase (30-110) U/L Urine Appearance Cloudy H (Clear) Urine Protein Trace H (Negative) Ur Leukocyte Esterase Large H (Negative) Urine WBC 68 H (0-5) /hpf Ur Squamous Epith Cells 9 H (0-4) /hpf Hyaline Casts 43 H (0-2) /lpf Urine Mucus Rare H (None) /hpf 10/20/20 10/20/20 10/21/20 Range/Units 14:06 14:06 05:43 RBC 3.10 L (4.10-5.20) X 10*6/uL Hgb 9.0 L (12.0-15.0) g/dL Hct 28.0 L (37.2-46.3) % RDW 17.3 H (11.5-15.5) % Neutrophils # 0.74 L (1.80-7.70) X 10*3/uL Neutrophils # (Manual) (1.3-7.7) k/uL Lymphocytes # (Manual) (1.0-4.8) k/uL Eosinophils # 0.36 H (0.04-0.35) X 10*3/uL PT (9.0-12.0) sec INR (<1.2) Potassium 3.4 L (3.5-5.1) mmol/L Chloride 110 H (98-107) mmol/L Carbon Dioxide 17 L (22-30) mmol/L BUN 18 H (7-17) mg/dL Glucose 109 H (74-99) mg/dL Plasma Lactic Acid Anthony 2.5 H* (0.7-2.0) mmol/L AST 55 H (14-36) U/L Alkaline Phosphatase 180 H (38-126) U/L Albumin 3.3 L (3.5-5.0) g/dL Amylase <30 L (30-110) U/L Urine Appearance (Clear) Urine Protein (Negative) Ur Leukocyte Esterase (Negative) Urine WBC (0-5) /hpf Ur Squamous Epith Cells (0-4) /hpf Hyaline Casts (0-2) /lpf Urine Mucus (None) /hpf Microbiology - Last 24 Hours (Table) 10/20/20 14:06 Urine Culture - Preliminary Urine,Clean Catch Assessment and Plan Assessment: patient presented to hospital abdominal pain in this patient who did have a hist ory of perforated diverticulitis mesenteric abscess status post sigmoid colectomy and diverting colostomy on 07/10/2020 now with a history of abdominal pain in this patient with no fever or elevated white count with abnormal CT suspicious for possible seroma versus an abscess clinically not behaving more of a seroma rather than abscess in view of no fever or elevated white count (1) Abnormal CT of the abdomen Current Visit: Yes Status: Acute Code(s): R93.5 - ABN FINDINGS ON DX IMAGING OF ABD REGIONS, INC RETROPERITON SNOMED Code(s): 14374814542181352 (2) Abdominal wall seroma Current Visit: Yes Status: Acute Code(s): S30.1XXA - CONTUSION OF ABDOMINAL WALL, INITIAL ENCOUNTER SNOMED Code(s): 648807017 Plan: 1-patient may benefit from CT-guided drainage of this fluid collection which should be sent for Gram stain and culture versus planned sigmoid colectomy reversal and drainage of this fluid at the time of surgery who will discuss further with the surgical team 2-Zosyn 3.375 g every 8 hours. to continue for now We will follow on clinical condition and cultures to further adjust medication if needed Thank you for this consultation we will follow the patient along with you Time with Patient: Greater than 30
[2020-10-22] MEDS ORDERED: IOPAMIDOL CONTRAST (ORAL USE) VIAL PO PRN (13:52)
--- NOTE | 2020-10-22 13:52 | P.PN ---
Subjective Progress Note Date: 10/22/20 CHIEF COMPLAINT: Diverticulitis HISTORY OF PRESENT ILLNESS: The patient Rizwana 4-year-old female with i ntermittent abdominal pain from diverticulitis and prior Smith's procedure. No new abdominal pain at this time. She is pending colostomy reversal. ROS: No fevers or chills. No nausea and vomiting. PHYSICAL EXAM: VITAL SIGNS: Reviewed CONSTITUTIONAL: Well developed and in no acute distress. EYES: Conjuctivae without sclera icterus. Extraocular movements grossly intact. HEAD, EARS, NOSE, THROAT: Moist buccal mucosa. Head is atraumatic, normocephalic. Hears conversational speech. No nasal drainage. NECK: No jugular venous distention. RESPIRATORY: Non-labored respirations and equal bilateral excursions. CARDIOVASCULAR: Palpable 2+ radial pulses. ABDOMEN: No peritonitis. MUSCULOSKELETAL: No gross deformity of the lower extremities noted. No clubbing. No cyanosis. SKIN: Good skin turgor. Well perfused. NEUROLOGIC: Cranial nerves II through XII grossly intact. No focal or l ateralizing signs. PSYCH: Appropriate affect. Alert and oriented to person, place and time. CLINICAL LABS: Reviewed. White count normal 4.3. Hemoglobin 9.0-10.5. ASSESSMENT: 1. Diverticulitis with colostomy PLAN: 1. I have advised her to bring in her preoperative colostomy reversal kit 2. Will need antibiotic prep and oral antibiotics prior to surgery Objective - Vital Signs Vital signs: Vital Signs Temp 97.8 F 10/22/20 07:29 Pulse 85 10/22/20 07:29 Resp 16 10/22/20 07:29 BP 129/75 10/22/20 07:29 Pulse Ox 97 10/22/20 07:29 Intake & Output 10/21/20 10/22/20 10/22/20 18:59 06:59 18:59 Intake Total 236 Output Total 50 Balance -50 236 Intake: Oral 236 Output: Stool 50 Other: Voiding Method Toilet Toilet # Voids 1 3 - Labs CBC & Chem 7: 10/21/20 13:20 10/21/20 13:20 Labs: Abnormal Lab Results - Last 24 Hours (Table) 10/20/20 10/21/20 10/21/20 Range/Units 18:23 05:43 13:20 RBC 3.53 L (3.80-5.40) m/uL Hgb 10.5 L (11.4-16.0) gm/dL Hct 31.8 L (34.0-46.0) % RDW 16.5 H (11.5-15.5) % Plt Count 134 L (150-450) k/uL Neutrophils # 0.74 L 1.1 L (1.80-7.70) X 10*3/uL Eosinophils # 0.36 H (0.04-0.35) X 10*3/uL Potassium (3.5-5.1) mmol/L Chloride 113 H (96-109) mmol/L Carbon Dioxide 12.9 L (21.6-31.8) mmol/L Anion Gap 16.10 H (4.00-12.00) mmol/L BUN/Creatinine Ratio 21.11 H (12.00-20.00) Ratio Glucose 130 H (70-110) mg/dL Calcium 7.5 L (8.7-10.3) mg/dL Magnesium (1.5-2.4) mg/dL AST 44 H (13-35) U/L Alkaline Phosphatase 130 H (41-126) U/L Total Protein 5.4 L (6.2-8.2) g/dL Albumin 2.70 L (3.80-4.90) g/dL Albumin/Globulin Ratio 1.00 L (1.60-3.17) g/dL 10/21/20 10/22/20 Range/Units 13:20 04:56 RBC (3.80-5.40) m/uL Hgb (11.4-16.0) gm/dL Hct (34.0-46.0) % RDW (11.5-15.5) % Plt Count (150-450) k/uL Neutrophils # (1.80-7.70) X 10*3/uL Eosinophils # (0.04-0.35) X 10*3/uL Potassium 3.2 L (3.5-5.1) mmol/L Chloride 112 H (96-109) mmol/L Carbon Dioxide 20 L (21.6-31.8) mmol/L Anion Gap (4.00-12.00) mmol/L BUN/Creatinine Ratio (12.00-20.00) Ratio Glucose 121 H (70-110) mg/dL Calcium 8.3 L (8.7-10.3) mg/dL Magnesium 1.4 L (1.5-2.4) mg/dL AST 59 H (13-35) U/L Alkaline Phosphatase (41-126) U/L Total Protein 5.3 L (6.2-8.2) g/dL Albumin 2.3 L (3.80-4.90) g/dL Albumin/Globulin Ratio (1.60-3.17) g/dL Microbiology - Last 24 Hours (Table) 10/20/20 14:06 Urine Culture - Final Urine,Clean Catch 10/20/20 18:23 Blood Culture - Preliminary Blood No Growth after 24 hours
[2020-10-22] MEDS: MAGNESIUM SULFATE-D5W PMX 1 GM in DEXTROSE/WATER 1 100ML.BAG IVPB SCH ×3 (13:58→18:08)
[2020-10-22] MEDS: ONDANSETRON 4 MG/2 ML VIAL IVP PRN (15:27)
--- NOTE | 2020-10-22 17:20 | PN ---
PROGRESS NOTE DATE OF SERVICE: 10/22/2020 REASON FOR FOLLOWUP: Abdominal wall seroma versus an abscess. INTERVAL HISTORY: The patient is afebrile. The patient still complaining of abdominal pain mostly in the center of the incision site. No improvement compared to yesterday. Some nausea but no vomiting. No chest pain, shortness of breath or cough. PHYSICAL EXAMINATION: Blood pressure 145/77 with a pulse of 83, temperature 98, she is 100% on room air. GENERAL DESCRIPTION: An elderly female lying in no distress. RESPIRATORY SYSTEM: Unlabored breathing. Clear to auscultation anteriorly. HEART: S1, S2. Regular rate. ABDOMEN: Soft. Incision is intact, slightly tender but no induration or redness was noticed. LABS: Potassium 4.1. No CBC was done today. Blood culture has been negative. DIAGNOSTIC IMPRESSION AND PLAN: Patient with abdominal pain with abdominal wall seroma versus an abscess. Repeat CT has been ordered. Will be followed. Patient is covered with Zosyn to continue. Monitor clinical course closely. MMODL / IJN: [id number] /
--- NOTE | 2020-10-22 17:26 | CT ---
EXAMINATION TYPE: CT abdomen pelvis wo con DATE OF EXAM: 10/22/2020 COMPARISON: 10/20/2020 HISTORY: PAIN Increased drainage CT DLP: 694.4 mGycm Automated exposure control for dose reduction was used. Images obtained without contrast from the diaphragm to the floor the pelvis. There is no evidence of pleural effusion. Lung bases are clear. Heart size is fairly normal. There is no pericardial effusion. There is previous gastric bariatric surgery. There are clips from cholecyst ectomy. There is some low attenuation in the liver and lower attenuation particularly in the anterior right lobe near the falciform ligament. This is probably regional significant fatty infiltration. I do not see a discrete mass. Spleen is intact. There is no evidence of pancreatic mass. The bile ducts are not dilated. There is no adrenal mass. Kidneys show normal size and contour. There is no hydronephrosis. Ureters a re not dilated. There is colostomy of the descending colon. There is tiny air bubbles in the subcutan eous fat over the anterior mid abdomen. There is some midline lower abdominal wall fluid collection i n the subcutaneous tissues at the incision. This measures up to 2 cm in width. There is no dehiscence . There is no mesenteric edema. There is no ascites or free air. There is no bowel obstruction. There i s empty urinary bladder. Abdominal aorta is atheromatous. There is resection of the sigmoid colon. Th ere is a rectal stump. There is multilevel lumbar spondylotic changes. There is a upper lumbar mild dextroscoliosis with sub luxation deformity at L2-3 and retrolisthesis. There is lateral subluxation of L2 to the right of L3. There is no lumbar compression fracture. There is also a first-degree L4-5 spondylolisthesis. IMPRESSION: Small subcutaneous fluid collection at the incision site on the lower anterior abdominal wall not timo nged compared to exam 2 days ago. No evidence of any new fluid.
[2020-10-22] MEDS: QUEtiapine 25 MG TAB PO SCH (19:58)
--- NOTE | 2020-10-22 20:47 | PN ---
PROGRESS NOTE DATE OF SERVICE: 10/22/2020 This 74-year-old woman who was admitted with periumbilical abdominal pain and also had some drainage with possible abscess is being closely patient is on broad-spectrum IV antibiotics. Cultures are negative so far. The patient also had hypokalemia 3.2, which is corrected to 4.1. Patient also had hypomagnesemia. The patient also has a repeat CT scan of the abdomen, pelvis. Repeated because of the persistent pain, which showed continued presence of subcutaneous fluid collection, possibly abscess. Patient on broad-spectrum IV antibiotics. PAST MEDICAL HISTORY: Reviewed. REVIEW OF SYSTEMS: ENT No history of diminished hearing or vision. CARDIOVASCULAR No angina or palpitations. RESPIRATORY No cough, no hemoptysis. GI No nausea, vomiting, or diarrhea. No dysuria or hematuria. NERVOUS No numbness or weakness. ALLERGY/IMMUNOLOGY No asthma or hayfever. MUSCULOSKELETAL As mentioned earlier. HEMATOLOGY/ONCOLOGY Negative. ENDOCRINE No history of diabetes or hypothyroidism. CONSTITUTIONAL As mentioned earlier. DERMATOLOGY Negative. RHEUMATOLOGY Negative, PSYCHIATRY As mentioned earlier. CURRENT MEDICATIONS: Reviewed include Lasix heparin, Dilaudid, Zestril, Ativan, Zofran, Zosyn. Doses reviewed. PHYSICAL EXAMINATION: Patient is alert, oriented x4. Pulse blood pressure 140/70, respiration 18, temperature 98 degrees, pulse 100 percent on room air. ENT: Conjunctivae normal. NECK: No JVD. CARDIOVASCULAR: S1, S2 muffled. RESPIRATORY SYSTEM: Breath sounds diminished at the bases, a few rhonchi. ABDOMEN: Soft, mild diffuse tenderness around the umbilicus. Some discharge also present. LEGS: Are no edema. NERVOUS: No focal deficits. LABS: ( ) 4.2, hemoglobin 10.5, sodium 130, potassium 3.2, magnesium 1.4 . ASSESSMENT: 1. Abdominal pain, discharge around umbilical umbilicus, possibly abdominal wall abscess present on admission. Rule out fistula. 2. Hypocalcemia. 3. Hypomagnesemia. 4. Elevated lactic acid, present on admission, possibly secondary to sepsis. 5. Increased AST. 6. Acute urinary tract infection with possible sepsis, present on admission. 7. History of recent colectomy done for diverticulitis, multiple abscesses causing partial small-bowel obstruction and colostomy, lysis of adhesions. 8. Atrial fibrillation history. 9. History of coronary artery disease. 10.History of chest pain. 11.History of hypertension. 12.History of peptic ulcer disease. 13.History lung cancer. 14.Hypokalemia. 15.History of Guzman's palsy. 16.History of MRSA. 17.History of bariatric surgery. 18.History of bowel resection. 19.History of cholecystectomy. 20.History of knee replacement. 21.History of anxiety, depression. 22.History of panic disorder. 23.Obesity with body mass index of 31.1. RECOMMENDATIONS AND DISCUSSION: Consequent to continue current management and continue broad-spectrum IV antibiotics. Repeat CT scan noted. Supplement potassium, magnesium. Otherwise, DVT prophylaxis. Closely follow with multiple consultants. Possible surgery with reversal of colostomy by Dr. Burt. However, infection has to be controlled prior to the surgery. This patient need definitely needs more than 2 nights hospital stay for evaluation and treatment of the above mentioned life-threatening complications including possible abdominal wall abscess and sepsis. This cannot be managed as an outpatient. Please call with any questions. MMODL / IJN: [id number] /
[2020-10-23] MEDS: HYDROmorphone 0.5 MG/0.5 ML SYRINGE IVP PRN ×5 (01:07→20:16)
[2020-10-23] MEDS: PIPERACILLIN-TAZOBACTAM 3.375 GM in SODIUM CHLORIDE 0.9% 100 ML IVPB SCH ×3 (01:43→20:14)
[2020-10-23] MEDS: LEVOTHYROXINE 100 MCG TAB PO SCH (05:39)
[2020-10-23] MEDS: PANTOPRAZOLE 40 MG/10 ML VIAL IVP SCH ×2 (07:18→20:15)
[2020-10-23] MEDS: lisinopriL 20 MG TAB PO SCH (07:18)
[2020-10-23] MEDS: FUROSEMIDE 20 MG TAB PO SCH (07:19)
[2020-10-23] MEDS: HEPARIN SODIUM,PORCINE/PF 5,000 UNIT/0.5 ML SYRINGE SQ SCH ×2 (07:19→20:15)
[2020-10-23 11:44] LABS: Basophils # (A) 0.03 X 10*3/uL (0.00-0.10); Basophils % (A) 0.7 %; Eosinophils # (A) 0.29 X 10*3/uL (0.04-0.35); Eosinophils % (A) 6.8 %; HCT 27.6 % (37.2-46.3); HGB 8.7 g/dL (12.0-15.0); Lymphocytes # (A) 2.33 X 10*3/uL (0.90-5.00); MCH 29.1 pg (27.0-32.0); MCHC 31.5 g/dL (32.0-37.0); MCV 92.3 fL (80.0-97.0); Mean Platelet Volume 11.9 fL (9.5-12.2); Monocytes # (A) 0.62 X 10*3/uL (0.20-1.00); Monocytes % (A) 14.6 %; Neutrophils # (A) 0.97 X 10*3/uL (1.80-7.70); Neutrophils % (A) 22.9 %; Platelet Count 142 X 10*3/uL (140-440); RBC 2.99 X 10*6/uL (4.10-5.20); RDW 17.2 % (11.5-14.5); WBC 4.24 X 10*3/uL (4.50-10.00)
[2020-10-23 11:59] LABS: African American GFR (CKD) 104.1 (60.0-200.0); Anion Gap 4.5 mmol/L (4.00-12.00); BUN/Creat Ratio 11.67 Ratio (12.00-20.00); Calcium 7.6 mg/dL (8.7-10.3); Carbon Dioxide 23.5 mmol/L (21.6-31.8); Non-African American GFR(CKD) 89.8 (60.0-200.0); Potassium 3.5 mmol/L (3.5-5.5)
[2020-10-23] MEDS: POTASSIUM CHLORIDE ER 20 MEQ TAB.ER PO SCH (14:57)
[2020-10-23 15:50] LABS: C Reactive Protein <0.5 mg/dL (<1.0); Magnesium 1.7 mg/dL (1.6-2.3)
--- NOTE | 2020-10-23 16:05 | PN ---
PROGRESS NOTE DATE OF SERVICE: 10/23/2020 REASON FOR FOLLOWUP: Abdominal wall collection, question of abscess. INTERVAL HISTORY: The patient is afebrile. The patient is breathing comfortably. The patient still complaining of abdominal pain and no improvement. No nausea, no vomiting. No chest pain, shortness of breath or cough. PHYSICAL EXAMINATION: Blood pressure 150/74, pulse of 77, temperature of 97.8, she is 100% on room air. GENERAL DESCRIPTION: The patient is an elderly female lying in bed in no distress. RESPIRATORY SYSTEM: Unlabored breathing, clear to auscultation anteriorly. HEART: S1, S2. Regular rate and rhythm. ABDOMEN: Soft, nontender, no guarding or rigidity. LABS: Hemoglobin 8.7, white count 4.24, BUN of 7, creatinine 0.6. Repeat CT scan did not show any worsening of the fluid collection. DIAGNOSTIC IMPRESSION AND PLAN: Patient with abdominal pain in this patient who did have fluid collection, question of seroma versus an abscess. Waiting for surgical drainage, possible colostomy tomorrow. Covered with empiric Zosyn and monitor clinical course closely. MMODL / IJN: [id number] /
[2020-10-23] MEDS: MAGNESIUM SULFATE-D5W PMX 1 GM in DEXTROSE/WATER 1 100ML.BAG IVPB SCH ×2 (17:25→19:00)
[2020-10-23] MEDS ORDERED: Antibiotics per Pharmacy 1 EACH MISC MISCELLANE PRN (18:00)
[2020-10-23] MEDS ORDERED: PEG 3350-NA SULF,BICARB,CL/KCL 4,000 ML BOTTLE PO ONE (18:00)
--- NOTE | 2020-10-23 18:19 | P.PN ---
Subjective Progress Note Date: 10/23/20 CHIEF COMPLAINT: Diverticulitis HISTORY OF PRESENT ILLNESS: The patient 74-year-old female with intermittent abdominal pain from diverticulitis and prior Smith's procedure. She denies any abdominal pain. She is tolerating diet. ROS: No fevers or chills. No nausea and vomiting. PHYSICAL EXAM: VITAL SIGNS: Reviewed CONSTITUTIONAL: Well developed and in no acute distress. EYES: Conjuctivae without sclera icterus. Extraocular movements grossly intact. HEAD, EARS, NOSE, THROAT: Moist buccal mucosa. Head is atraumatic, normocephalic. Hears conversational speech. No nasal drainage. NECK: No jugular venous distention. RESPIRATORY: Non-labored respirations and equal bilateral excursions. CARDIOVASCULAR: Palpable 2+ radial pulses. ABDOMEN: No peritonitis. Ostomy present MUSCULOSKELETAL: No gross deformity of the lower extremities noted. No clubbing. No cyanosis. SKIN: Good skin turgor. Well perfused. NEUROLOGIC: Cranial nerves II through XII grossly intact. No focal or laterali zing signs. PSYCH: Appropriate affect. Alert and oriented to person, place and time. CLINICAL LABS: Reviewed. ASSESSMENT: 1. Diverticulitis with colostomy PLAN: 1. Enhanced colon bowel prep started 2. Colostomy reversal described. Objective - Vital Signs Vital signs: Vital Signs Temp 97.5 F L 10/23/20 14:47 Pulse 83 10/23/20 14:47 Resp 18 10/23/20 14:47 BP 107/67 10/23/20 14:47 Pulse Ox 95 10/23/20 14:47 Intake & Output 10/22/20 10/23/20 10/23/20 18:59 06:59 18:59 Intake Total 708 Output Total 50 50 Balance 708 -50 -50 Intake: Oral 708 Output: Stool 50 50 Other: Voiding Method Toilet Toilet Toilet # Voids 1 6 - Labs CBC & Chem 7: 10/23/20 06:44 10/23/20 06:44 Labs: Abnormal Lab Results - Last 24 Hours (Table) 10/23/20 10/23/20 Range/Units 06:44 06:44 WBC 4.24 L (4.50-10.00) X 10*3/uL RBC 2.99 L (4.10-5.20) X 10*6/uL Hgb 8.7 L (12.0-15.0) g/dL Hct 27.6 L (37.2-46.3) % MCHC 31.5 L (32.0-37.0) g/dL RDW 17.2 H (11.5-14.5) % Neutrophils # 0.97 L (1.80-7.70) X 10*3/uL Chloride 112 H (96-109) mmol/L BUN 7.0 L (9.0-27.0) mg/dL BUN/Creatinine Ratio 11.67 L (12.00-20.00) Ratio Calcium 7.6 L (8.7-10.3) mg/dL Microbiology - Last 24 Hours (Table) 10/20/20 18:23 Blood Culture - Preliminary Blood No Growth after 48 hours
[2020-10-23 19:38] LABS: Glucose,Whole Blood 128 mg/dL (75-99)
[2020-10-23] MEDS: QUEtiapine 25 MG TAB PO SCH (20:15)
--- NOTE | 2020-10-23 21:46 | PN ---
PROGRESS NOTE DATE OF SERVICE: 10/23/2020. INTERVAL HISTORY: This is a 74-year-old woman who was admitted with abdominal pain, had some discharge in the umbilicus. The patient also is complaining of abdominal pain in the lower part also. No chest pain. No palpitations. No fever. Surgery is planning surgery. PHYSICAL EXAMINATION: Alert and oriented times three. Pulse 92, blood pressure 130/78. Respirations 14. Temperature 98.2, pulse ox 97% on room air. HEENT: Conjunctivae [place]on. Neck: No JVD. Cardiovascular: S1, S2 muffled. Respiratory System: Breath sounds diminished at the bases. No rhonchi. Abdomen: Soft. Mild diffuse tenderness. No guarding. No rigidity. No mass palpable. Nervous system: No focal deficits. LEGS are no edema, no swelling. LABS: WBC 4.2, hemoglobin 8.7. ASSESSMENT: 1. Abdominal pain, discharge from umbilicus. Possibly abdominal wall abscess present on admission. Rule out fistula, possibly fluid collection. 2. Hypocalcemia. 3. Hypomagnesemia. 4. Elevated lactic acid, present on admission possibly secondary to sepsis. Increased AST. 5. Acute urinary tract infection with sepsis present on admission. 6. History of recent colectomy done for diverticulitis, multiple abscesses causing partial small-bowel obstruction, colostomy, lysis of adhesions. 7. Atrial fibrillation history. 8. History of coronary artery disease. 9. History of chest pain. 10.History of hypertension. 11.History of peptic ulcer disease. 12.History of lung cancer. 13.Hypokalemia. 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 15.History of MRSA. 16.History of bariatric surgery. 17.History of bowel resection. 18.History of cholecystectomy. 19.History of knee replacements. 20.Anxiety/depression. 21.History of panic disorder. 22.Obesity with body mass index of 31.1. RECOMMENDATIONS AND DISCUSSION: I recommend to continue current medications, management and symptomatic treatment. Otherwise follow closely with surgery. Continue the antibiotics. The cultures are negative so far. Further recommendations to follow. MMODL / IJN: [id number] /
[2020-10-23 22:35] LABS: Rheumatoid Factor, Qnt 7 IU/mL (0-15)
[2020-10-23] MEDS ORDERED: NEOMYCIN 500 MG TAB PO SCH (23:00)
[2020-10-23] MEDS ORDERED: metroNIDAZOLE 500 MG TAB PO SCH (23:00)
[2020-10-24] MEDS: HYDROmorphone 0.5 MG/0.5 ML SYRINGE IVP PRN ×6 (00:18→22:47)
[2020-10-24] MEDS: PIPERACILLIN-TAZOBACTAM 3.375 GM in SODIUM CHLORIDE 0.9% 100 ML IVPB SCH ×3 (02:25→18:15)
[2020-10-24] MEDS: LEVOTHYROXINE 100 MCG TAB PO SCH (04:52)
[2020-10-24] MEDS ORDERED: ALVIMOPAN 12 MG CAPSULE PO PRN (07:00)
[2020-10-24] MEDS ORDERED: MELOXICAM 7.5 MG TAB PO PRN (07:00)
[2020-10-24] MEDS ORDERED: ACETAMINOPHEN TAB 500 MG TAB PO PRN (07:00)
[2020-10-24] MEDS: HEPARIN SODIUM,PORCINE/PF 5,000 UNIT/0.5 ML SYRINGE SQ SCH ×2 (07:03→20:00)
[2020-10-24] MEDS: FUROSEMIDE 20 MG TAB PO SCH (07:32)
[2020-10-24] MEDS: lisinopriL 20 MG TAB PO SCH (07:32)
[2020-10-24] MEDS: PANTOPRAZOLE 40 MG/10 ML VIAL IVP SCH ×2 (07:33→20:00)
[2020-10-24 08:33] LABS: Anisocytosis Slight; HCT 32.4 % (34.0-46.0); HGB 10.4 gm/dL (11.4-16.0); MCH 29.4 pg (25.0-35.0); MCHC 32.1 g/dL (31.0-37.0); MCV 91.4 fL (80.0-100.0); Mean Platelet Volume 8.1; Platelet Count 159 k/uL (150-450); RBC 3.54 m/uL (3.80-5.40); RDW 16.7 % (11.5-15.5); WBC 5.5 k/uL (3.8-10.6)
[2020-10-24 08:42] LABS: African American GFR (CKD) >90 (>60 ml/min/1.73 sqM); Anion Gap 4 mmol/L; Blood Urea Nitrogen 6 mg/dL (7-17); Calcium 8.4 mg/dL (8.4-10.2); Carbon Dioxide 25 mmol/L (22-30); Chloride 108 mmol/L (98-107); Glucose 101 mg/dL (74-99); Non-African American GFR(CKD) >90 (>60 ml/min/1.73 sqM); Sodium 137 mmol/L (137-145)
[2020-10-24 10:27] LABS: Basophils # (M) 0.06 k/uL (0-0.2); Eosinophils # (M) 0.06 k/uL (0-0.7); Lymphocytes # (M) 3.41 k/uL (1.0-4.8); Monocytes # (M) 0.77 k/uL (0-1.0); Neutrophils # (M) 1.21 k/uL (1.3-7.7); Neutrophils % (M) 22 %; Nucleated Red Blood Cells 0 /100 WBC (0-0); Total Cells Counted 100
--- NOTE | 2020-10-24 11:37 | P.PN ---
Subjective Progress Note Date: 10/24/20 CHIEF COMPLAINT: Abdominal pain HISTORY OF PRESENT ILLNESS: Patient has known history of diverticulitis with colostomy. She was scheduled for colostomy reversal today. Unfortunately bowel prep was not given correctly by nursing staff. Bowel prep is restarted today. Patient is still complaining of mid abdominal pain. Denies any nausea or vomiting. Her ostomy is functioning. Afebrile. WBC is 5.5 hemoglobin 10.4 platelets 159 sodium 137 potassium is 4.0 creatinine 0.53 PHYSICAL EXAM: VITAL SIGNS: Reviewed. GENERAL: Well-developed in no acute distress. HEENT: No sclera icterus. Extraocular movements grossly intact. Moist buccal mucosa. Head is atraumatic, normocephalic. ABDOMEN: Soft. Nondistended. Nontender. NEUROLOGIC: Alert and oriented. Cranial nerves II through XII grossly intact. ASSESSMENT: 1. History of diverticulitis with mesenteric abscess and adhesions causing parti al small bowel obstruction and is status post sigmoid colectomy with end colostomy and lysis of adhesions on 07/10/2020 2. Abdominal pain 3. Small seroma PLAN: -Patient scheduled for colostomy reversal on 10/26/[address] Burt -Continue bowel prep today -Continue a clear liquid diet Physician Method Consultant note has been reviewed by physician. Signing provider agrees with the documented findings, assessment, and plan of care. Objective - Vital Signs Vital signs: Vital Signs Temp 98.5 F 10/24/20 07:45 Pulse 86 10/24/20 07:45 Resp 16 10/24/20 07:45 BP 161/94 10/24/20 07:45 Pulse Ox 99 10/24/20 07:45 Intake & Output 10/23/20 10/24/20 10/24/20 18:59 06:59 18:59 Output Total 50 50 Balance -50 -50 Output: Stool 50 50 Other: Voiding Method Toilet Toilet Toilet # Voids 6 # Bowel Movements 2 - Labs CBC & Chem 7: 10/24/20 07:55 10/24/20 07:55 Labs: Abnormal Lab Results - Last 24 Hours (Table) 10/23/20 10/23/20 10/23/20 Range/Units 06:44 06:44 19:36 WBC 4.24 L (4.50-10.00) X 10*3/uL RBC 2.99 L (4.10-5.20) X 10*6/uL Hgb 8.7 L (12.0-15.0) g/dL Hct 27.6 L (37.2-46.3) % MCHC 31.5 L (32.0-37.0) g/dL RDW 17.2 H (11.5-14.5) % Neutrophils # 0.97 L (1.80-7.70) X 10*3/uL Neutrophils # (Manual) (1.3-7.7) k/uL Chloride 112 H (96-109) mmol/L BUN 7.0 L (9.0-27.0) mg/dL BUN/Creatinine Ratio 11.67 L (12.00-20.00) Ratio Glucose (74-99) mg/dL POC Glucose (mg/dL) 128 H (75-99) mg/dL Calcium 7.6 L (8.7-10.3) mg/dL 10/24/20 10/24/20 Range/Units 07:55 07:55 WBC (4.50-10.00) X 10*3/uL RBC 3.54 L (4.10-5.20) X 10*6/uL Hgb 10.4 L (12.0-15.0) g/dL Hct 32.4 L (37.2-46.3) % MCHC (32.0-37.0) g/dL RDW 16.7 H (11.5-14.5) % Neutrophils # (1.80-7.70) X 10*3/uL Neutrophils # (Manual) 1.21 L (1.3-7.7) k/uL Chloride 108 H (96-109) mmol/L BUN 6 L (9.0-27.0) mg/dL BUN/Creatinine Ratio (12.00-20.00) Ratio Glucose 101 H (74-99) mg/dL POC Glucose (mg/dL) (75-99) mg/dL Calcium (8.7-10.3) mg/dL Microbiology - Last 24 Hours (Table) 10/20/20 18:23 Blood Culture - Preliminary Blood No Growth after 72 hours
[2020-10-24] MEDS: MORPHINE SULFATE ER 15 MG TABLET PO PRN (12:13)
--- NOTE | 2020-10-24 15:36 | P.PN ---
Subjective Progress Note Date: 10/24/20 This is a 75-year-old female who was recently admitted with abdominal pain and is being closely monitored. Surgery following along with infectious disease and patient is maintained on IV antibiotic therapy form of Zosyn and will continue. Patient was tentatively scheduled for colostomy reversal with surgery and bowel prep was not completed. Patient is currently undergoing the bowel prep at this time with possible surgery this Saturday. Patient continues to note some drainage at the umbilical site. Patient is afebrile. White blood count is stable at 5.5 and hemoglobin is 10.4. Sodium is 137 with a potassium of 4.0 and current creatinine is 0.53. Review of systems: Constitutional: No reports of fatigue, fever, or chills Cardiovascular: No reports of chest pain or palpitations Respiratory: No reports of shortness of breath or cough GI: No reports of nausea, vomiting, or diarrhea, reports continued abdominal pain in the lower quadrants : No reports of dysuria or retention Neurovascular: No reports of weakness or numbness All medications have been reviewed Active Medications Acetaminophen (Acetaminophen Tab 500 Mg Tab) 1,000 mg PO ONCE PRN PRN Reason: Pre-Op Stop: 10/24/20 23:00 Alvimopan (Alvimopan 12 Mg Capsule) 12 mg PO ONCE PRN PRN Reason: Pre-Op Stop: 10/24/20 23:00 Furosemide (Furosemide 20 Mg Tab) 20 mg PO DAILY [facility] Last Admin: 10/24/20 07:32 Dose: Not Given Documented by: Heparin Sodium (Porcine) (Heparin Sodium,Porcine/Pf 5,000 Unit/0.5 Ml Syringe) 5,000 unit SQ Q12HR [facility] Last Admin: 10/24/20 07:03 Dose: Not Given Documented by: Hydromorphone HCl (Hydromorphone 0.5 Mg/0.5 Ml Syringe) 0.5 mg IVP Q4H PRN PRN Reason: Pain Last Admin: 10/24/20 14:15 Dose: 0.5 mg Documented by: Piperacillin Sod/Tazobactam (Sod 3.375 gm/ Sodium Chloride) 100 mls @ 25 mls/hr IVPB Q8H [facility] Last Admin: 10/24/20 10:13 Dose: 25 mls/hr Documented by: Levothyroxine Sodium (Levothyroxine 100 Mcg Tab) 200 mcg PO DAILY@0630 [facility] Last Admin: 10/24/20 04:52 Dose: Not Given Documented by: Lisinopril (Lisinopril 20 Mg Tab) 40 mg PO DAILY [facility] Last Admin: 10/24/20 07:32 Dose: 40 mg Documented by: Lorazepam (Lorazepam 0.5 Mg Tab) 0.25 - 0.5 mg PO BID PRN PRN Reason: Anxiety Meloxicam (Meloxicam 7.5 Mg Tab) 15 mg PO ONCE PRN PRN Reason: Pre-Op Stop: 10/24/20 23:00 Metronidazole (Metronidazole 500 Mg Tab) 1,000 mg PO TID@1300,1400,2300 [facility] Stop: 10/25/20 23:01 Miscellaneous Information (Magnesium Replacement Protocol 1 Each Mis) 1 each MISCELLANE DAILY PRN; Protocol PRN Reason: Per Protocol Miscellaneous Information (Potassium Replacement Protocol 1 Each Mis) 1 each MISCELLANE DAILY PRN; Protocol PRN Reason: Per Protocol Miscellaneous Information (Antibiotics Per Pharmacy 1 Each [facility] [place]) 1 each MISCELLANE DIRECTED PRN PRN Reason: Per Protocol Morphine Sulfate (Morphine Sulfate Er 15 Mg Tablet) 15 mg PO DAILY PRN; Protocol PRN Reason: Pain Last Admin: 10/24/20 12:13 Dose: 15 mg Documented by: Neomycin Sulfate (Neomycin 500 Mg Tab) 1,000 mg PO TID@1300,1400,2300 [facility] Stop: 10/25/20 23:01 Ondansetron HCl (Ondansetron 4 Mg/2 Ml Vial) 4 mg IVP Q6HR PRN PRN Reason: Nausea And Vomiting Last Admin: 10/22/20 15:27 Dose: 4 mg Documented by: Pantoprazole Sodium (Pantoprazole 40 Mg/10 Ml Vial) 40 mg IVP BID [facility] Last Admin: 10/24/20 07:33 Dose: 40 mg Documented by: Quetiapine Fumarate (Quetiapine 25 Mg Tab) 25 mg PO [facility] Last Admin: 10/23/20 20:15 Dose: 25 mg Documented by: Objective - Vital Signs Vital signs: Vital Signs Temp 98.5 F 10/24/20 07:45 Pulse 86 10/24/20 07:45 Resp 16 10/24/20 07:45 BP 161/94 10/24/20 07:45 Pulse Ox 99 10/24/20 07:45 Intake & Output 10/23/20 10/24/20 10/24/20 18:59 06:59 18:59 Output Total 50 50 Balance -50 -50 Output: Stool 50 50 Other: Voiding Method Toilet Toilet Toilet # Voids 6 # Bowel Movements 2 - Exam Gen: This is a 75-year-old female sitting up at the side of the bed awake, alert and oriented 3, well-developed, well-nourished, obese. Temp is 98.5F, pulse is 86, respirations 16, blood pressure is 161/94, oxygen saturation is 99% on room air. HEENT: Head is atraumatic, normocephalic. Pupils equal, round. Sclerae is anicteric. NECK: Supple. No JVD. No lymphadenopathy. No thyromegaly. LUNGS: Breath Sounds diminished bilaterally with no wheezing or rhonchi noted. No intercostal retractions. HEART: S1, S2 are muffled ABDOMEN: Soft. Obese. Bowel sounds are present. No masses. tenderness noted of the lower quadrants on palpation. Stool noted in the ostomy EXTREMITIES: No pedal edema. No calf tenderness. NEUROLOGICAL: Patient is awake, alert and oriented x3. Cranial nerves 2 through 12 are grossly intact. - Labs CBC & Chem 7: 10/24/20 07:55 10/24/20 07:55 Labs: Abnormal Lab Results - Last 24 Hours (Table) 10/23/20 10/23/20 10/23/20 Range/Units 06:44 06:44 19:36 WBC 4.24 L (4.50-10.00) X 10*3/uL RBC 2.99 L (4.10-5.20) X 10*6/uL Hgb 8.7 L (12.0-15.0) g/dL Hct 27.6 L (37.2-46.3) % MCHC 31.5 L (32.0-37.0) g/dL RDW 17.2 H (11.5-14.5) % Neutrophils # 0.97 L (1.80-7.70) X 10*3/uL Neutrophils # (Manual) (1.3-7.7) k/uL Chloride 112 H (96-109) mmol/L BUN 7.0 L (9.0-27.0) mg/dL BUN/Creatinine Ratio 11.67 L (12.00-20.00) Ratio Glucose (74-99) mg/dL POC Glucose (mg/dL) 128 H (75-99) mg/dL Calcium 7.6 L (8.7-10.3) mg/dL 10/24/20 10/24/20 Range/Units 07:55 07:55 WBC (4.50-10.00) X 10*3/uL RBC 3.54 L (4.10-5.20) X 10*6/uL Hgb 10.4 L (12.0-15.0) g/dL Hct 32.4 L (37.2-46.3) % MCHC (32.0-37.0) g/dL RDW 16.7 H (11.5-14.5) % Neutrophils # (1.80-7.70) X 10*3/uL Neutrophils # (Manual) 1.21 L (1.3-7.7) k/uL Chloride 108 H (96-109) mmol/L BUN 6 L (9.0-27.0) mg/dL BUN/Creatinine Ratio (12.00-20.00) Ratio Glucose 101 H (74-99) mg/dL POC Glucose (mg/dL) (75-99) mg/dL Calcium (8.7-10.3) mg/dL Microbiology - Last 24 Hours (Table) 10/20/20 18:23 Blood Culture - Preliminary Blood No Growth after 72 hours Assessment and Plan Assessment: Abdominal pain, discharge from umbilicus possibly abdominal wall abscess present on admission, rule out fistula, possibly fluid collection Hypocalcemia hypomagnesemia elevated lactic acid, present on admission, possibly secondary to sepsis Increased AST Acute urinary tract infection with sepsis, present on admission History of recent colectomy done for diverticulitis, multiple abscesses causing partial small bowel obstruction, colostomy, lysis of adhesions Atrial fibrillation history History of coronary artery disease history of chest pain History of hypertension History of peptic ulcer disease history of lung cancer History of Guzman's palsy Hypokalemia History of MRSA history of bariatric surgery History of bowel resection history of cholecystectomy History of knee replacements anxiety, depression history of panic disorder Obesity with a body mass index of 31.1 Recommendations and discussion: Recommend continue with current medications and current management. Surgery following closely and patient was tentatively scheduled for colostomy reversal although prep was not completed and will continue with prep and possible reversal this Saturday. Patient continues to have abdominal discomfort in the lower right and left quadrant on palpation and patient also states she continues to have drainage noted at the umbilical site. Patient is afebrile and will continue on antibiotic therapy with infectious disease following. Will repeat labs in continue to monitor closely. Due to multiple complex medical issues, prognosis is guarded.
[2020-10-24] MEDS: QUEtiapine 25 MG TAB PO SCH (20:00)
--- NOTE | 2020-10-24 23:14 | PN ---
PROGRESS NOTE DATE OF SERVICE: 10/24/2020 REASON FOR FOLLOWUP: Abdominal wall fluid collection, question of Pseudomonas or sepsis. INTERVAL HISTORY: Patient is afebrile. The patient's surgery was put on hold because of poor and no bowel prep. The patient denies any chest pain, shortness of breath or cough. Still complaining of abdominal pain. No vomiting or diarrhea. PHYSICAL EXAMINATION: Blood pressure 140/63 with a pulse of 81, temperature 97.6. She is 98% on room air. General description is an elderly female up in the bed in no distress. Respiratory system: Unlabored breathing, clear to auscultation anteriorly. Heart S1, S2. Regular rate and rhythm. Abdomen: Soft, mildly tender. No guarding. No rigidity. LABS: Hemoglobin is 10.4, white count 5.5, BUN of 6, creatinine 0.53. Blood cultures have been negative. DIAGNOSTIC IMPRESSION AND PLAN: Patient admitted to the hospital with abdominal pain with abnormal CT evidence of fluid collection, possible seroma. Clinically not behaving as an abscess. Waiting for surgical hopefully tomorrow with drainage of this fluid. Culture should be obtained continue empiric Zosyn and continue supportive care. MMODL / IJN: [id number] / MTDD
[2020-10-25] MEDS: PIPERACILLIN-TAZOBACTAM 3.375 GM in SODIUM CHLORIDE 0.9% 100 ML IVPB SCH ×3 (01:37→17:26)
[2020-10-25] MEDS: HYDROmorphone 0.5 MG/0.5 ML SYRINGE IVP PRN ×6 (02:46→23:30)
[2020-10-25] MEDS: LEVOTHYROXINE 100 MCG TAB PO SCH (05:30)
[2020-10-25] MEDS: HEPARIN SODIUM,PORCINE/PF 5,000 UNIT/0.5 ML SYRINGE SQ SCH ×2 (08:44→18:58)
[2020-10-25] MEDS: FUROSEMIDE 20 MG TAB PO SCH (08:44)
[2020-10-25] MEDS: lisinopriL 20 MG TAB PO SCH (08:44)
[2020-10-25] MEDS: PANTOPRAZOLE 40 MG/10 ML VIAL IVP SCH ×2 (10:08→19:35)
--- NOTE | 2020-10-25 12:09 | P.PN ---
Subjective Progress Note Date: 10/25/20 CHIEF COMPLAINT: Abdominal pain HISTORY OF PRESENT ILLNESS: Patient has known history of diverticulitis with colostomy. She was scheduled for colostomy reversal for tomorrow. Patient is still working on her bowel prep. She has been encouraged that she needs to drink the full 4 L. She is having stools through her ostomy. There are clear sure just color. Denies any nausea or vomiting. Still reporting her mid abdominal pain. PHYSICAL EXAM: VITAL SIGNS: Reviewed. GENERAL: Well-developed in no acute distress. HEENT: No sclera icterus. Extraocular movements grossly intact. Moist buccal mucosa. Head is atraumatic, normocephalic. ABDOMEN: Soft. Nondistended. NEUROLOGIC: Alert and oriented. Cranial nerves II through XII grossly intact. ASSESSMENT: 1. History of diverticulitis with mesenteric abscess and adhesions causing partial small bowel obstruction and is status post sigmoid colectomy with end colostomy and lysis of adhesions on 07/10/2020 2. Abdominal pain 3. Small seroma PLAN: -Patient scheduled for colostomy reversal on 10/26/[address] Burt -Continue bowel prep today -Nothing by mouth after midnight Physician Harmonic Analyst note has been reviewed by physician. Signing provider agrees with the documented findings, assessment, and plan of care. Objective - Vital Signs Vital signs: Vital Signs Temp 98.1 F 10/25/20 07:44 Pulse 76 10/25/20 10:39 Resp 16 10/25/20 10:39 BP 115/55 10/25/20 07:44 Pulse Ox 95 10/25/20 07:44 Intake & Output 10/24/20 10/25/20 10/25/20 18:59 06:59 18:59 Output Total 50 Balance -50 Output: Stool 50 Other: Voiding Method Toilet Toilet Toilet # Voids 6 1 # Bowel Movements 2 - Labs CBC & Chem 7: 10/24/20 07:55 10/24/20 07:55 Labs: Microbiology - Last 24 Hours (Table) 10/20/20 18:23 Blood Culture - Preliminary Blood No Growth after 96 hours
[2020-10-25] MEDS: metroNIDAZOLE 500 MG TAB PO SCH ×3 (13:06→23:29)
[2020-10-25] MEDS: NEOMYCIN 500 MG TAB PO SCH ×3 (13:06→23:30)
[2020-10-25] MEDS: MORPHINE SULFATE ER 15 MG TABLET PO PRN (13:55)
[2020-10-25] MEDS: ONDANSETRON 4 MG/2 ML VIAL IVP PRN (15:24)
[2020-10-25] MEDS: QUEtiapine 25 MG TAB PO SCH (19:35)
--- NOTE | 2020-10-25 21:47 | P.PN ---
Subjective This is a 75-year-old female who was recently admitted with abdominal pain and is being closely monitored. Surgery following along with infectious disease and patient is maintained on IV antibiotic therapy form of Zosyn and will continue. Patient was tentatively scheduled for colostomy reversal with surgery and bowel prep was not completed. Patient is currently undergoing the bowel prep at this time with possible surgery this Saturday. Patient continues to note some drainage at the umbilical site. Patient is afebrile. White blood count is stable at 5.5 and hemoglobin is 10.4. Sodium is 137 with a potassium of 4.0 and current creatinine is 0.53. Gen: This is a 75-year-old female sitting up at the side of the bed awake, alert and oriented 3, well-developed, well-nourished, obese. Temp is 98.5F, pulse is 86, respirations 16, blood pressure is 161/94, oxygen saturation is 99% on room air. 10/25/2020 no much change clinicaly today , she still has some abd pain especially around her colostomy stoma, with mild tenderness, no rebound tenderness pt is hemodynamically stable labs are stable ct of abd: small subcutaneous fluid collection at incision site of abd wall pt is on zosyn plan for colostomy reversal tomorrow by surgery team Objective - Vital Signs Vital signs: Vital Signs Temp 98.2 F 10/25/20 20:09 Pulse 80 10/25/20 20:09 Resp 17 10/25/20 20:09 BP 158/85 10/25/20 20:09 Pulse Ox 99 10/25/20 20:09 Intake & Output 10/25/20 10/25/20 10/26/20 06:59 18:59 06:59 Intake Total 200 Output Total 50 Balance -50 200 Intake: Oral 200 Output: Stool 50 Other: Voiding Method Toilet Toilet # Voids 1 5 - Exam HEENT: Head is atraumatic, normocephalic. Pupils equal, round. Sclerae is anicteric. NECK: Supple. No JVD. No lymphadenopathy. No thyromegaly. LUNGS: Breath Sounds diminished bilaterally with no wheezing or rhonchi noted. No intercostal retractions. HEART: S1, S2 are muffled ABDOMEN: Soft. Obese. Bowel sounds are present. No masses. tenderness noted of the lower quadrants on palpation. Stool noted in the ostomy EXTREMITIES: No pedal edema. No calf tenderness. NEUROLOGICAL: Patient is awake, alert and oriented x3. Cranial nerves 2 through 12 are grossly intact. - Labs CBC & Chem 7: 10/24/20 07:55 10/24/20 07:55 Labs: Microbiology - Last 24 Hours (Table) 10/20/20 18:23 Blood Culture - Preliminary Blood No Growth after 96 hours Assessment and Plan Assessment: recent diverticulitis with mesenteric abscess status post sigmoid colectomy (07/2020) needs reversal of colostomy on 10/26 Abdominal pain secondary to above hypertension Hypocalcemia hypomagnesemia elevated lactic acid, present on admission, possibly secondary to sepsis Increased AST Acute urinary tract infection with sepsis, present on admission History of recent colectomy done for diverticulitis, multiple abscesses causing partial small bowel obstruction, colostomy, lysis of adhesions Atrial fibrillation history History of coronary artery disease history of chest pain History of hypertension History of peptic ulcer disease history of lung cancer History of Guzman's palsy Hypokalemia History of MRSA history of bariatric surgery History of bowel resection history of cholecystectomy History of knee replacements anxiety, depression history of panic disorder Obesity with a body mass index of 31.1 Plan: 75 yo f who presents with abd pain related to her colostomy and h/o diverticulitis with some fluid collection at incision site plan for colostomy reversal tomorrow by surgery team Labs and medication were reviewed.. Continue same treatment. Continue with symptomatic treatment. Resume home medication. Monitor lytes and vitals. DVT and GI prophylaxis. Further recommendations as per clinical course of the patient DVT prophylaxis: heparin GI Prophylaxis: Ppi
--- NOTE | 2020-10-25 23:05 | PN ---
PROGRESS NOTE DATE OF SERVICE: 10/25/2020 REASON FOR FOLLOWUP: Abdominal wall Pseudomonas with an abscess. INTERVAL HISTORY: Patient is afebrile. The patient is breathing comfortably. Denies having any chest pain, shortness of breath or cough. No abdominal pain. No nausea, vomiting or diarrhea. PHYSICAL EXAMINATION: Blood pressure 158/85, pulse of 80, temperature 98.2. She is 99% on room air. General description is an elderly female lying in no distress. Respiratory system: Unlabored breathing, clear to auscultation. Heart: S1, S2. Regular rate and rhythm. Abdomen is soft, no tenderness. LABS: Hemoglobin is 10.3, white count 5.5, BUN of 6, creatinine 0.53. DIAGNOSTIC IMPRESSION AND PLAN: Patient admitted to the hospital with abdominal pain in this patient who did have an abdominal wall fluid collection with concern for Pseudomonas with an abscess. Scheduled for laparotomy /colostomy tomorrow and possible drainage of the fluid. Should be sent for cultures. Continue supportive care. MMODL / IJN: [id number] / MTDOphelia
[2020-10-26] MEDS: PIPERACILLIN-TAZOBACTAM 3.375 GM in SODIUM CHLORIDE 0.9% 100 ML IVPB SCH ×3 (02:36→20:12)
[2020-10-26] MEDS: HYDROmorphone 0.5 MG/0.5 ML SYRINGE IVP PRN ×7 (03:21→17:10)
[2020-10-26] MEDS: LEVOTHYROXINE 100 MCG TAB PO SCH (05:25)
[2020-10-26] MEDS ORDERED: DEXAMETHASONE SOD PHOSPHATE 4 MG/ML 1 ML VIAL IV ONE (07:00)
[2020-10-26] MEDS ORDERED: MIDAZOLAM 2 MG/2 ML VIAL IV PRN (07:00)
[2020-10-26] MEDS ORDERED: LIDOCAINE 1% (10MG/ML) FOR IV START INTRADERMA PRN (07:00)
[2020-10-26] MEDS: PANTOPRAZOLE 40 MG/10 ML VIAL IVP SCH ×2 (07:51→20:13)
[2020-10-26] MEDS: FUROSEMIDE 20 MG TAB PO SCH (08:50)
[2020-10-26] MEDS: lisinopriL 20 MG TAB PO SCH (08:53)
[2020-10-26] MEDS: HEPARIN SODIUM,PORCINE/PF 5,000 UNIT/0.5 ML SYRINGE SQ SCH ×2 (10:47→20:14)
[2020-10-26] MEDS ORDERED: IV FLUID CONTINUATION 1,000 ML IV ONE (13:05)
[2020-10-26] MEDS: ONDANSETRON 4 MG/2 ML VIAL IVP ONE ×2 (13:54→18:23)
[2020-10-26] MEDS ORDERED: MIDAZOLAM 2 MG/2 ML VIAL ONE (14:24)
[2020-10-26] MEDS ORDERED: HYDROmorphone (PF) 1 MG/ML ONE (14:24)
[2020-10-26] MEDS ORDERED: LIDOCAINE 1% INJ 10MG/ML (20 ML MDV) ONE (14:24)
[2020-10-26] MEDS ORDERED: ROCURONIUM 10 MG/ML (5 ML VIAL) IV ONE (14:24)
[2020-10-26] MEDS ORDERED: NEOSTIGMINE 1 MG/ML 10 ML VIAL ONE ×2 (14:24)
[2020-10-26] MEDS ORDERED: ETOMIDATE 2 MG/ML 10 ML VIAL ONE (14:24)
[2020-10-26] MEDS ORDERED: SUCCINYLCHOLINE CHLORIDE 100 MG/5 ML SYR IV ONE (14:24)
[2020-10-26] MEDS ORDERED: GLYCOPYRROLATE 0.2 MG/ML 2 ML VIAL ONE (14:24)
[2020-10-26] MEDS ORDERED: PHENYLEPHRINE-0.9% NACL SYG 1,000 MCG/10 ML SYRINGE ONE (14:24)
[2020-10-26] MEDS ORDERED: ePHEDrine SULFATE/0.9% NACL/PF 50 MG/5 ML SYRINGE IV ONE (14:24)
[2020-10-26] MEDS ORDERED: fentaNYL (PF) 50 MCG/ML 2 ML AMP ONE (14:24)
--- NOTE | 2020-10-26 14:48 | P.PN ---
Subjective This is a 75-year-old female who was recently admitted with abdominal pain and is being closely monitored. Surgery following along with infectious disease and patient is maintained on IV antibiotic therapy form of Zosyn and will continue. Patient was tentatively scheduled for colostomy reversal with surgery and bowel prep was not completed. Patient is currently undergoing the bowel prep at this time with possible surgery this Saturday. Patient continues to note some drainage at the umbilical site. Patient is afebrile. White blood count is stable at 5.5 and hemoglobin is 10.4. Sodium is 137 with a potassium of 4.0 and current creatinine is 0.53. Gen: This is a 75-year-old female sitting up at the side of the bed awake, alert and oriented 3, well-developed, well-nourished, obese. Temp is 98.5F, pulse is 86, respirations 16, blood pressure is 161/94, oxygen saturation is 99% on room air. 10/25/2020 no much change clinicaly today , she still has some abd pain especially around her colostomy stoma, with mild tenderness, no rebound tenderness pt is hemodynamically stable labs are stable ct of abd: small subcutaneous fluid collection at incision site of abd wall pt is on zosyn plan for colostomy reversal tomorrow by surgery team 10/26/2020 Patient went for colostomy reversal today Patient remains on Zosyn. Expected to got fluids cultured during the procedure Objective - Vital Signs Vital signs: Vital Signs Temp 98.5 F 10/26/20 13:18 Pulse 86 10/26/20 13:18 Resp 20 10/26/20 13:18 BP 168/72 10/26/20 13:18 Pulse Ox 98 10/26/20 13:18 Intake & Output 10/25/20 10/26/20 10/26/20 18:59 06:59 18:59 Intake Total 200 50 Balance 200 50 Intake: IV 50 Oral 200 Other: Voiding Method Toilet Toilet # Voids 5 2 - Exam HEENT: Head is atraumatic, normocephalic. Pupils equal, round. Sclerae is anicteric. NECK: Supple. No JVD. No lymphadenopathy. No thyromegaly. LUNGS: Breath Sounds diminished bilaterally with no wheezing or rhonchi noted. No intercostal retractions. HEART: S1, S2 are muffled ABDOMEN: Soft. Obese. Bowel sounds are present. No masses. tenderness noted of the lower quadrants on palpation. Stool noted in the ostomy EXTREMITIES: No pedal edema. No calf tenderness. NEUROLOGICAL: Patient is awake, alert and oriented x3. Cranial nerves 2 through 12 are grossly intact. - Labs CBC & Chem 7: 10/24/20 07:55 10/24/20 07:55 Labs: Microbiology - Last 24 Hours (Table) 10/20/20 18:23 Blood Culture - Preliminary Blood No Growth after 120 hours Assessment and Plan Assessment: recent diverticulitis with mesenteric abscess status post sigmoid colectomy (07/2020) needs reversal of colostomy on 10/26 Abdominal pain secondary to above hypertension Hypocalcemia hypomagnesemia elevated lactic acid, present on admission, possibly secondary to sepsis Increased AST Acute urinary tract infection with sepsis, present on admission History of recent colectomy done for diverticulitis, multiple abscesses causing partial small bowel obstruction, colostomy, lysis of adhesions Atrial fibrillation history History of coronary artery disease history of chest pain History of hypertension History of peptic ulcer disease history of lung cancer History of Guzman's palsy Hypokalemia History of MRSA history of bariatric surgery History of bowel resection history of cholecystectomy History of knee replacements anxiety, depression history of panic disorder Obesity with a body mass index of 31.1 Plan: 75 yo f who presents with abd pain related to her colostomy and h/o diverticulitis with some fluid collection at incision site plan for colostomy reversal tomorrow by surgery team Labs and medication were reviewed.. Continue same treatment. Continue with symptomatic treatment. Resume home medication. Monitor lytes and vitals. DVT and GI prophylaxis. Further recommendations as per clinical course of the patient DVT prophylaxis: heparin GI Prophylaxis: Ppi
[2020-10-26] MEDS ORDERED: BENZOCAINE/MENTHOL LOZENG 1 EACH LOZENGE MUCOUS MEM PRN (16:12)
[2020-10-26] MEDS ORDERED: DEXTROSE 5%-0.45% NACL 1,000 ML IV SCH (16:15)
--- NOTE | 2020-10-26 16:22 | P.OP ---
Date of Procedure: 10/26/20 Preoperative Diagnosis: history of perforated diverticulitis Postoperative Diagnosis: history of perforated diverticula is Adhesions Procedure(s) Performed: reversal of colostomy Anesthesia: TRISTEN Surgeon: Phil Burt Estimated Blood Loss (ml): 100 Pathology: other (colon) Condition: stable Disposition: PACU
[2020-10-26] MEDS: fentaNYL (PF) 50 MCG/ML 2 ML AMP IVP PRN ×3 (16:25→16:43)
[2020-10-26] MEDS ORDERED: diphenhydrAMINE 50 MG/ML 1 ML VIAL IVP ONE ×2 (16:29)
[2020-10-26] MEDS ORDERED: SODIUM CHLORIDE 0.9% 1,000 ML IV ONE ×2 (16:30)
--- NOTE | 2020-10-26 16:53 | PN ---
PROGRESS NOTE DATE OF SERVICE: 10/26/2020 REASON FOR FOLLOWUP: Abdominal wall fluid collection, Pseudomonas, question of seroma versus an abscess. INTERVAL HISTORY: Patient is afebrile. The patient is scheduled for surgery this afternoon. The patient is complaining of abdominal pain, no worsening though. No chest pain, shortness of breath, no cough. PHYSICAL EXAMINATION: Blood pressure 158/72 with a pulse of 83, temperature 98.5, he is 98% on room air. GENERAL DESCRIPTION: Is an elderly female lying in bed in no distress. RESPIRATORY SYSTEM: Unlabored breathing, clear to auscultation anteriorly. HEART: S1, S2. ABDOMEN: Regular abdomen. LABS: Hemoglobin is 10.1, white count of 5.5 BUN of 6, creatinine 0.53. DIAGNOSTIC IMPRESSION AND PLAN: Patient with abdominal wall fluid collection, question of seroma versus an abscess. Scheduled for drainage and colostomy also today. Fluid should be sent for culture. Continue empiric Zosyn. Continue supportive care. MMODL / IJN: [id number] /
[2020-10-26] MEDS: LACTATED RINGERS 1,000 ML IV SCH (18:23)
[2020-10-26] MEDS ORDERED: MORPHINE SULFATE 4 MG/ML SYRINGE IVP PRN (18:26)
[2020-10-26] MEDS: METOCLOPRAMIDE 5 MG/ML 2 ML VIAL IVP PRN (19:27)
[2020-10-26] MEDS: FAMOTIDINE 20 MG/2 ML VIAL IV SCH (20:13)
[2020-10-26] MEDS: QUEtiapine 25 MG TAB PO SCH (20:13)
[2020-10-26] MEDS: HYDROmorphone 1 MG/ML 1 ML SYRINGE IVP PRN (20:21)
[2020-10-26] MEDS: MORPHINE SULFATE 4 MG/ML SYRINGE IVP PRN (23:41)
[2020-10-27] MEDS: D5-0.45% NACL WITH KCL 20MEQ/L 1,000 ML IV SCH ×4 (00:07→17:33)
[2020-10-27] MEDS: HYDROmorphone 1 MG/ML 1 ML SYRINGE IVP PRN ×5 (02:08→21:29)
[2020-10-27] MEDS: PIPERACILLIN-TAZOBACTAM 3.375 GM in SODIUM CHLORIDE 0.9% 100 ML IVPB SCH ×3 (02:08→17:34)
[2020-10-27] MEDS: ONDANSETRON 4 MG/2 ML VIAL IVP PRN (02:14)
[2020-10-27] MEDS: MORPHINE SULFATE 4 MG/ML SYRINGE IVP PRN ×2 (04:12→07:16)
[2020-10-27] MEDS: LEVOTHYROXINE 100 MCG TAB PO SCH (06:12)
[2020-10-27] MEDS: LACTATED RINGERS 1,000 ML IV SCH (09:11)
[2020-10-27] MEDS: FUROSEMIDE 20 MG TAB PO SCH (09:12)
[2020-10-27] MEDS: FAMOTIDINE 20 MG/2 ML VIAL IV SCH ×2 (09:12→21:21)
[2020-10-27] MEDS: PANTOPRAZOLE 40 MG/10 ML VIAL IVP SCH ×2 (09:12→21:21)
[2020-10-27] MEDS: lisinopriL 20 MG TAB PO SCH (09:13)
[2020-10-27] MEDS: LORazepam 0.5 MG TAB PO PRN (09:13)
[2020-10-27] MEDS: MORPHINE SULFATE ER 15 MG TABLET PO PRN (09:13)
[2020-10-27] MEDS: HEPARIN SODIUM,PORCINE/PF 5,000 UNIT/0.5 ML SYRINGE SQ SCH ×2 (09:14→21:22)
[2020-10-27 09:22] LABS: HCT 31.6 % (37.2-46.3); HGB 10.3 g/dL (12.0-15.0); MCH 29.6 pg (27.0-32.0); MCHC 32.6 g/dL (32.0-37.0); MCV 90.8 fL (80.0-97.0); Platelet Count 207 X 10*3/uL (140-440); RBC 3.48 X 10*6/uL (4.10-5.20); RDW 17.2 % (11.5-14.5); WBC 11.68 X 10*3/uL (4.50-10.00)
[2020-10-27 09:30] LABS: African American GFR (CKD) >90 (>60 ml/min/1.73 sqM); Anion Gap 7 mmol/L; Blood Urea Nitrogen 6 mg/dL (7-17); Calcium 8.4 mg/dL (8.4-10.2); Carbon Dioxide 20 mmol/L (22-30); Chloride 110 mmol/L (98-107); Glucose 187 mg/dL (74-99); Non-African American GFR(CKD) >90 (>60 ml/min/1.73 sqM); Potassium 4.2 mmol/L (3.5-5.1); Sodium 137 mmol/L (137-145)
[2020-10-27] MEDS: HYDROcodone/APAP 10-325MG 1 EACH TAB PO PRN ×2 (11:24→16:49)
[2020-10-27 11:34] LABS: Basophils # (A) 0.06 X 10*3/uL (0.00-0.10); Basophils % (A) 0.5 %; Eosinophils # (A) 0.01 X 10*3/uL (0.04-0.35); Eosinophils % (A) 0.1 %; Lymphocytes # (A) 1.36 X 10*3/uL (0.90-5.00); Lymphocytes % (A) 11.6 %; Monocytes # (A) 1.52 X 10*3/uL (0.20-1.00); Neutrophils # (A) 8.68 X 10*3/uL (1.80-7.70); Neutrophils % (A) 74.4 %
[2020-10-27 11:56] VITALS: BMI 31.1
--- NOTE | 2020-10-27 12:33 | P.PN ---
Subjective This is a 75-year-old female who was recently admitted with abdominal pain and is being closely monitored. Surgery following along with infectious disease and patient is maintained on IV antibiotic therapy form of Zosyn and will continue. Patient was tentatively scheduled for colostomy reversal with surgery and bowel prep was not completed. Patient is currently undergoing the bowel prep at this time with possible surgery this Saturday. Patient continues to note some drainage at the umbilical site. Patient is afebrile. White blood count is stable at 5.5 and hemoglobin is 10.4. Sodium is 137 with a potassium of 4.0 and current creatinine is 0.53. Gen: This is a 75-year-old female sitting up at the side of the bed awake, alert and oriented 3, well-developed, well-nourished, obese. Temp is 98.5F, pulse is 86, respirations 16, blood pressure is 161/94, oxygen saturation is 99% on room air. 10/25/2020 no much change clinicaly today , she still has some abd pain especially around her colostomy stoma, with mild tenderness, no rebound tenderness pt is hemodynamically stable labs are stable ct of abd: small subcutaneous fluid collection at incision site of abd wall pt is on zosyn plan for colostomy reversal tomorrow by surgery team 10/26/2020 Patient went for colostomy reversal today Patient remains on Zosyn. Expected to got fluids cultured during the procedure 10/27/2020 Patient is a status post colostomy reversal procedure yesterday, her wound is closed. Physical complaining from pain at the surgical site. She is currently placed on morphine 5 mg IV and [place] 10 mg. Social she is on Pepcid added to Protonix by surgery team. She is mildly tachycardic probably secondary to her pain. Also her white cell count went up a little bit to 11 K secondary to surgery. On Zosyn and subcu heparin for DVT prophylaxis. Discussed with surgery team, no wound culture was sent as they felt it is not infected Objective - Vital Signs Vital signs: Vital Signs Temp 98.2 F 10/27/20 07:38 Pulse 107 H 10/27/20 07:38 Resp 20 10/27/20 07:38 BP 144/87 10/27/20 07:38 Pulse Ox 94 L 10/27/20 07:38 Intake & Output 0710/27/20 10/27/20 18:59 06:59 18:59 Intake Total 750 Output Total 200 250 Balance 550 -250 Weight 77.111 kg Intake: IV 750 Output: Urine 100 250 Estimated Blood Loss 100 Other: Voiding Method Toilet Indwelling Catheter - Exam HEENT: Head is atraumatic, normocephalic. Pupils equal, round. Sclerae is anicteric. NECK: Supple. No JVD. No lymphadenopathy. No thyromegaly. LUNGS: Breath Sounds diminished bilaterally with no wheezing or rhonchi noted. No intercostal retractions. HEART: S1, S2 are muffled ABDOMEN: Soft. Obese. Bowel sounds are present. No masses. tenderness noted of the lower quadrants on palpation. Stool noted in the ostomy EXTREMITIES: No pedal edema. No calf tenderness. NEUROLOGICAL: Patient is awake, alert and oriented x3. Cranial nerves 2 through 12 are grossly intact. - Labs CBC & Chem 7: 10/27/20 05:55 10/27/20 05:55 Labs: Abnormal Lab Results - Last 24 Hours (Table) 10/27/20 10/27/20 Range/Units 05:55 05:55 WBC 11.68 H (4.50-10.00) X 10*3/uL RBC 3.48 L (4.10-5.20) X 10*6/uL Hgb 10.3 L (12.0-15.0) g/dL Hct 31.6 L (37.2-46.3) % RDW 17.2 H (11.5-14.5) % Immature Gran # 0.05 H (0.00-0.04) X 10*3/uL Neutrophils # 8.68 H (1.80-7.70) X 10*3/uL Monocytes # 1.52 H (0.20-1.00) X 10*3/uL Eosinophils # 0.01 L (0.04-0.35) X 10*3/uL Chloride 110 H (98-107) mmol/L Carbon Dioxide 20 L (22-30) mmol/L BUN 6 L (7-17) mg/dL Creatinine 0.48 L (0.52-1.04) mg/dL Glucose 187 H (74-99) mg/dL Microbiology - Last 24 Hours (Table) 10/20/20 18:23 Blood Culture - Final Blood No Growth after 144 hours Assessment and Plan Assessment: recent diverticulitis with mesenteric abscess status post sigmoid colectomy (07/2020) needs reversal of colostomy on 10/26 Abdominal pain secondary to above hypertension Hypocalcemia hypomagnesemia elevated lactic acid, present on admission, possibly secondary to sepsis Increased AST Acute urinary tract infection with sepsis, present on admission History of recent colectomy done for diverticulitis, multiple abscesses causing partial small bowel obstruction, colostomy, lysis of adhesions Atrial fibrillation history History of coronary artery disease history of chest pain History of hypertension History of peptic ulcer disease history of lung cancer History of Guzman's palsy Hypokalemia History of MRSA history of bariatric surgery History of bowel resection history of cholecystectomy History of knee replacements anxiety, depression history of panic disorder Obesity with a body mass index of 31.1 Plan: 75 yo f who presents with abd pain related to her colostomy and h/o diverticuli tis with some fluid collection at incision site. Status post colostomy reversal tomorrow by surgery team continue with pain management Labs and medication were reviewed.. Continue same treatment. Continue with symptomatic treatment. Resume home medication. Monitor lytes and vitals. DVT and GI prophylaxis. Further recommendations as per clinical course of the patient DVT prophylaxis: heparin GI Prophylaxis: Ppi
--- NOTE | 2020-10-27 12:36 | P.PN ---
Subjective Progress Note Date: 10/27/20 CHIEF COMPLAINT: Abdominal pain HISTORY OF PRESENT ILLNESS: Patient is postop day #1 status post colostomy reversal. She is complaining of abdominal pain. She's receiving IV Dilaudid as well as her oral pain medication. Denies any flatus. Denies any nausea or vomiting. Currently on a clear liquid diet. Afebrile. Heart rate 107. WBC is 11.68. Patient did receive a dose of IV steroids yesterday which may contribute to the elevated white count. hemoglobin 10.3 PHYSICAL EXAM: VITAL SIGNS: Reviewed. GENERAL: Well-developed in no acute distress. HEENT: No sclera icterus. Extraocular movements grossly intact. Moist buccal mucosa. Head is atraumatic, normocephalic. ABDOMEN: Soft. Nondistended. There are a few areas of saturation of blood noted on incisional dressing NEUROLOGIC: Alert and oriented. Cranial nerves II through XII grossly intact. ASSESSMENT: 1. Status post colostomy reversal 2. History of diverticulitis with mesenteric abscess and adhesions causing partial small bowel obstruction and is status post sigmoid colectomy with end colostomy and lysis of adhesions on 07/10/2020 2. Abdominal pain 3. Small seroma PLAN: -Continue clear liquid diet -Continue pain medication as needed -Encouraged patient to increase activity -Encouraged patient to use incentive spirometer -Continue GI and DVT prophylaxis Physician Sample Clerk note has been reviewed by physician. Signing provider agrees with the documented findings, assessment, and plan of care. Objective - Vital Signs Vital signs: Vital Signs Temp 98.2 F 10/27/20 07:38 Pulse 107 H 10/27/20 07:38 Resp 20 10/27/20 07:38 BP 144/87 10/27/20 07:38 Pulse Ox 94 L 10/27/20 07:38 Intake & Output 10/26/20 10/27/20 10/27/20 18:59 06:59 18:59 Intake Total 750 Output Total 200 250 Balance 550 -250 Weight 77.111 kg Intake: IV 750 Output: Urine 100 250 Estimated Blood Loss 100 Other: Voiding Method Toilet Indwelling Catheter - Labs CBC & Chem 7: 10/27/20 05:55 10/27/20 05:55 Labs: Abnormal Lab Results - Last 24 Hours (Table) 10/27/20 10/27/20 Range/Units 05:55 05:55 WBC 11.68 H (4.50-10.00) X 10*3/uL RBC 3.48 L (4.10-5.20) X 10*6/uL Hgb 10.3 L (12.0-15.0) g/dL Hct 31.6 L (37.2-46.3) % RDW 17.2 H (11.5-14.5) % Immature Gran # 0.05 H (0.00-0.04) X 10*3/uL Neutrophils # 8.68 H (1.80-7.70) X 10*3/uL Monocytes # 1.52 H (0.20-1.00) X 10*3/uL Eosinophils # 0.01 L (0.04-0.35) X 10*3/uL Chloride 110 H (98-107) mmol/L Carbon Dioxide 20 L (22-30) mmol/L BUN 6 L (7-17) mg/dL Creatinine 0.48 L (0.52-1.04) mg/dL Glucose 187 H (74-99) mg/dL Microbiology - Last 24 Hours (Table) 10/20/20 18:23 Blood Culture - Final Blood No Growth after 144 hours
--- NOTE | 2020-10-27 16:38 | PN ---
PROGRESS NOTE DATE OF SERVICE: 10/27/2020 REASON FOR FOLLOW UP: Abnormal CT and a question of seroma versus abscess. INTERVAL HISTORY: Patient is afebrile. The patient is status post laparotomy and reversal of the diverting colostomy. There was no mention of any fluid collection and may have been drained or cultures and detailed operative report is not available. The patient is complaining of some incisional pain. No nausea, vomiting. No chest pain, shortness of breath or cough. PHYSICAL EXAMINATION: Blood pressure 140/64, pulse of 96 temperature 98.2. She is 94% on room air. General description is an elderly female lying in no distress. Respiratory system: Unlabored breathing ,clear to auscultation anteriorly. Heart S1, S2. Regular rate and rhythm. Abdomen soft. Incision is currently intact. LABS: Hemoglobin is 10.1, white count 11.6, BUN of 16, creatinine 0.48. DIAGNOSTIC IMPRESSION AND PLAN: Patient admitted to the hospital with abdominal pain in this patient who did have an abdominal wall fluid collection, concern for possible seroma versus an abscess, status post laparotomy with reversal of colostomy. No mention of any fluid drain or any cultures obtained. The patient did have slight worsening of the white count post surgery and will be monitored closely and if white count normalizes and no fever, antibiotic can be safely discontinued. Continue supportive care. MMODL / IJN: [id number] /
[2020-10-27] MEDS: QUEtiapine 25 MG TAB PO SCH (21:21)
[2020-10-28] MEDS: HYDROcodone/APAP 10-325MG 1 EACH TAB PO PRN ×2 (02:54→17:11)
[2020-10-28] MEDS: PIPERACILLIN-TAZOBACTAM 3.375 GM in SODIUM CHLORIDE 0.9% 100 ML IVPB SCH ×3 (02:55→17:10)
[2020-10-28] MEDS: D5-0.45% NACL WITH KCL 20MEQ/L 1,000 ML IV SCH ×3 (04:00→17:19)
[2020-10-28] MEDS: HYDROmorphone 1 MG/ML 1 ML SYRINGE IVP PRN ×4 (06:40→20:15)
[2020-10-28] MEDS: LEVOTHYROXINE 100 MCG TAB PO SCH (06:41)
[2020-10-28 07:05] LABS: African American GFR (CKD) >90 (>60 ml/min/1.73 sqM); Anion Gap 2 mmol/L; Blood Urea Nitrogen 8 mg/dL (7-17); Calcium 8.1 mg/dL (8.4-10.2); Carbon Dioxide 22 mmol/L (22-30); Chloride 111 mmol/L (98-107); Glucose 86 mg/dL (74-99); Non-African American GFR(CKD) 88 (>60 ml/min/1.73 sqM); Potassium 3.7 mmol/L (3.5-5.1); Sodium 135 mmol/L (137-145)
[2020-10-28] MEDS: PANTOPRAZOLE 40 MG/10 ML VIAL IVP SCH ×2 (07:27→20:15)
[2020-10-28] MEDS: ONDANSETRON 4 MG/2 ML VIAL IVP PRN (07:27)
[2020-10-28] MEDS: METOCLOPRAMIDE 5 MG/ML 2 ML VIAL IVP PRN ×2 (07:28→13:09)
[2020-10-28] MEDS: HEPARIN SODIUM,PORCINE/PF 5,000 UNIT/0.5 ML SYRINGE SQ SCH ×2 (07:28→20:15)
[2020-10-28] MEDS: lisinopriL 20 MG TAB PO SCH (07:28)
[2020-10-28] MEDS: FAMOTIDINE 20 MG/2 ML VIAL IV SCH ×2 (07:28→20:15)
[2020-10-28] MEDS: LORazepam 0.5 MG TAB PO PRN (07:29)
[2020-10-28] MEDS ORDERED: Potassium Replacement Protocol 1 EACH MISC MISCELLANE PRN (07:38)
[2020-10-28] MEDS ORDERED: POTASSIUM CHLORIDE ER 20 MEQ TAB.ER PO SCH (08:00)
--- NOTE | 2020-10-28 08:21 | P.PN ---
Progress Note - Text Progress Note Date: 10/28/20 Patient has some complaints of incisional pain. She is burping. She's not had any significant bowel function. On exam her vital signs are stable. Abdomen soft. Incision is clean dry tach. Status post reversal colostomy. Patient will not have her diet advanced until her bowel function has improved.
[2020-10-28 09:39] LABS: Basophils # (A) 0.03 X 10*3/uL (0.00-0.10); Basophils % (A) 0.4 %; Eosinophils # (A) 0.43 X 10*3/uL (0.04-0.35); Eosinophils % (A) 5.4 %; HCT 23.9 % (37.2-46.3); HGB 7.6 g/dL (12.0-15.0); Lymphocytes # (A) 2.51 X 10*3/uL (0.90-5.00); Lymphocytes % (A) 31.5 %; MCH 29.2 pg (27.0-32.0); MCHC 31.8 g/dL (32.0-37.0); MCV 91.9 fL (80.0-97.0); Mean Platelet Volume 11.7 fL (9.5-12.2); Monocytes # (A) 0.95 X 10*3/uL (0.20-1.00); Monocytes % (A) 11.9 %; Neutrophils # (A) 4.03 X 10*3/uL (1.80-7.70); Neutrophils % (A) 50.7 %; Platelet Count 161 X 10*3/uL (140-440); RDW 17.9 % (11.5-14.5); WBC 7.96 X 10*3/uL (4.50-10.00)
[2020-10-28] MEDS ORDERED: ONDANSETRON 4 MG/2 ML VIAL IVP STA (10:05)
[2020-10-28] MEDS: FUROSEMIDE 20 MG TAB PO SCH (10:15)
[2020-10-28] MEDS: MORPHINE SULFATE ER 15 MG TABLET PO PRN (13:08)
--- NOTE | 2020-10-28 13:45 | P.PN ---
Subjective This is a 75-year-old female who was recently admitted with abdominal pain and is being closely monitored. Surgery following along with infectious disease and patient is maintained on IV antibiotic therapy form of Zosyn and will continue. Patient was tentatively scheduled for colostomy reversal with surgery and bowel prep was not completed. Patient is currently undergoing the bowel prep at this time with possible surgery this Saturday. Patient continues to note some drainage at the umbilical site. Patient is afebrile. White blood count is stable at 5.5 and hemoglobin is 10.4. Sodium is 137 with a potassium of 4.0 and current creatinine is 0.53. Gen: This is a 75-year-old female sitting up at the side of the bed awake, alert and oriented 3, well-developed, well-nourished, obese. Temp is 98.5F, pulse is 86, respirations 16, blood pressure is 161/94, oxygen saturation is 99% on room air. 10/25/2020 no much change clinicaly today , she still has some abd pain especially around her colostomy stoma, with mild tenderness, no rebound tenderness pt is hemodynamically stable labs are stable ct of abd: small subcutaneous fluid collection at incision site of abd wall pt is on zosyn plan for colostomy reversal tomorrow by surgery team 10/26/2020 Patient went for colostomy reversal today Patient remains on Zosyn. Expected to got fluids cultured during the procedure 10/27/2020 Patient is a status post colostomy reversal procedure yesterday, her wound is closed. Physical complaining from pain at the surgical site. She is currently placed on morphine 5 mg IV and [place] 10 mg. Social she is on Pepcid added to Protonix by surgery team. She is mildly tachycardic probably secondary to her pain. Also her white cell count went up a little bit to 11 K secondary to surgery. On Zosyn and subcu heparin for DVT prophylaxis. Discussed with surgery team, no wound culture was sent as they felt it is not infected 10/28/2020 Patient is postop day #2, she still have some abdominal pain and nausea. No bowel movement or passing gas yet. But she is burping. We will keep monitoring for now Continue Zofran as needed Objective - Vital Signs Vital signs: Vital Signs Temp 97.3 F L 10/28/20 13:02 Pulse 105 H 10/28/20 13:02 Resp 20 10/28/20 13:02 BP 129/77 10/28/20 13:02 Pulse Ox 94 L 10/28/20 13:02 Intake & Output 10/27/20 10/28/20 10/28/20 18:59 06:59 18:59 Output Total 250 Balance -250 Weight 77.111 kg Output: Urine 250 Other: Voiding Method Indwelling Catheter Indwelling Catheter Indwelling Catheter - Exam HEENT: Head is atraumatic, normocephalic. Pupils equal, round. Sclerae is anicteric. NECK: Supple. No JVD. No lymphadenopathy. No thyromegaly. LUNGS: Breath Sounds diminished bilaterally with no wheezing or rhonchi noted. No intercostal retractions. HEART: S1, S2 are muffled ABDOMEN: Soft. Obese. Bowel sounds are present. No masses. tenderness noted of the lower quadrants on palpation. Stool noted in the ostomy EXTREMITIES: No pedal edema. No calf tenderness. NEUROLOGICAL: Patient is awake, alert and oriented x3. Cranial nerves 2 through 12 are grossly intact. - Labs CBC & Chem 7: 10/28/20 06:15 10/28/20 06:15 Labs: Abnormal Lab Results - Last 24 Hours (Table) 10/28/20 10/28/20 Range/Units 06:15 06:15 RBC 2.60 L (4.10-5.20) X 10*6/uL Hgb 7.6 L (12.0-15.0) g/dL Hct 23.9 L (37.2-46.3) % MCHC 31.8 L (32.0-37.0) g/dL RDW 17.9 H (11.5-14.5) % Eosinophils # 0.43 H (0.04-0.35) X 10*3/uL Sodium 135 L (137-145) mmol/L Chloride 111 H (98-107) mmol/L Calcium 8.1 L (8.4-10.2) mg/dL Assessment and Plan Assessment: recent diverticulitis with mesenteric abscess status post sigmoid colectomy (07/2020) needs reversal of colostomy on 10/26 Abdominal pain secondary to above hypertension Hypocalcemia hypomagnesemia elevated lactic acid, present on admission, possibly secondary to sepsis Increased AST Acute urinary tract infection with sepsis, present on admission History of recent colectomy done for diverticulitis, multiple abscesses causing partial small bowel obstruction, colostomy, lysis of adhesions Atrial fibrillation history History of coronary artery disease history of chest pain History of hypertension History of peptic ulcer disease history of lung cancer History of Guzman's palsy Hypokalemia History of MRSA history of bariatric surgery History of bowel resection history of cholecystectomy History of knee replacements anxiety, depression history of panic disorder Obesity with a body mass index of 31.1 Plan: 75 yo f who presents with abd pain related to her colostomy and h/o diverticulitis with some fluid collection at incision site. Status post colostomy reversal tomorrow by surgery team continue with pain management Labs and medication were reviewed.. Continue same treatment. Continue with symptomatic treatment. Resume home medication. Monitor lytes and vitals. DVT and GI prophylaxis. Further recommendations as per clinical course of the patient DVT prophylaxis: heparin GI Prophylaxis: Ppi
--- NOTE | 2020-10-28 18:18 | PN ---
PROGRESS NOTE DATE OF SERVICE: 10/28/2020 REASON FOR FOLLOW UP: Abdominal infection. INTERVAL HISTORY: The patient is afebrile. The patient has been complaining of more abdominal pain today and did have an episode of vomiting. Denies having any chest pain, shortness of breath or cough. PHYSICAL EXAMINATION: Blood pressure 129/76, pulse of 105, temperature 98F. She is 94% on room air. General description an elderly female up in the bed in no distress. Respiratory system: Unlabored breathing, clear to auscultation anteriorly. Heart S1, S2. Regular rate and rhythm. Abdomen soft, no tenderness. LABS: Hemoglobin 10, creatinine 0.64. DIAGNOSTIC IMPRESSION AND PLAN: Patient admitted to the hospital with abdominal pain in this patient who did have abdominal wall collection, concern for possible seroma status post reversal of her colostomy, now with worsening abdominal pain. However, the patient not running any fever. If the patient spikes any fever or any worsening white count may need a repeat CT. Continue with Zosyn for now. However, if the patient remain to be afebrile and white count normal, antibiotic can be safely discontinued. MMODL / IJN: [id number] / [id number]
[2020-10-28] MEDS: QUEtiapine 25 MG TAB PO SCH (20:15)
[2020-10-29] MEDS: HYDROcodone/APAP 10-325MG 1 EACH TAB PO PRN ×3 (00:44→20:40)
[2020-10-29] MEDS: D5-0.45% NACL WITH KCL 20MEQ/L 1,000 ML IV SCH ×4 (00:47→23:45)
[2020-10-29] MEDS: HYDROmorphone 1 MG/ML 1 ML SYRINGE IVP PRN (01:38)
[2020-10-29] MEDS: PIPERACILLIN-TAZOBACTAM 3.375 GM in SODIUM CHLORIDE 0.9% 100 ML IVPB SCH ×2 (02:35→08:22)
[2020-10-29] MEDS: LEVOTHYROXINE 100 MCG TAB PO SCH (06:16)
[2020-10-29] MEDS: HYDROmorphone 0.5 MG/0.5 ML SYRINGE IVP PRN ×3 (08:21→17:10)
[2020-10-29] MEDS: PANTOPRAZOLE 40 MG/10 ML VIAL IVP SCH ×2 (08:21→20:39)
[2020-10-29] MEDS: METOCLOPRAMIDE 5 MG/ML 2 ML VIAL IVP PRN ×2 (08:21→14:26)
[2020-10-29] MEDS: FAMOTIDINE 20 MG/2 ML VIAL IV SCH (08:22)
[2020-10-29] MEDS: FUROSEMIDE 20 MG TAB PO SCH (08:30)
[2020-10-29] MEDS: lisinopriL 20 MG TAB PO SCH (08:30)
[2020-10-29] MEDS: HEPARIN SODIUM,PORCINE/PF 5,000 UNIT/0.5 ML SYRINGE SQ SCH (08:31)
[2020-10-29 11:06] LABS: Anisocytosis Slight; Basophils % (A) 0 %; Eosinophils # (A) 0.8 k/uL (0-0.7); Eosinophils % (A) 8 %; HCT 34.5 % (34.0-46.0); HGB 10.7 gm/dL (11.4-16.0); Hypochromasia Slight; Lymphocytes # (A) 2.3 k/uL (1.0-4.8); Lymphocytes % (A) 22 %; MCH 29.5 pg (25.0-35.0); MCV 95.3 fL (80.0-100.0); Mean Platelet Volume 8.5; Monocytes # (A) 0.8 k/uL (0-1.0); Monocytes % (A) 8 %; Neutrophils # (A) 6.3 k/uL (1.3-7.7); Neutrophils % (A) 60 %; Platelet Count 253 k/uL (150-450); RBC 3.62 m/uL (3.80-5.40); RDW 16.7 % (11.5-15.5); WBC 10.5 k/uL (3.8-10.6)
[2020-10-29 11:10] LABS: African American GFR (CKD) >90 (>60 ml/min/1.73 sqM); Anion Gap 5 mmol/L; Blood Urea Nitrogen 5 mg/dL (7-17); Calcium 8.5 mg/dL (8.4-10.2); Carbon Dioxide 19 mmol/L (22-30); Chloride 110 mmol/L (98-107); Glucose 124 mg/dL (74-99); Non-African American GFR(CKD) >90 (>60 ml/min/1.73 sqM); Potassium 4.3 mmol/L (3.5-5.1); Sodium 134 mmol/L (137-145)
[2020-10-29] MEDS: ONDANSETRON 4 MG/2 ML VIAL IVP PRN (12:03)
--- NOTE | 2020-10-29 12:03 | P.PN ---
Progress Note - Text Progress Note Date: 10/29/20 Patient has some complaints of incisional pain. She is had no significant bowel function. On exam vital signs are stable. Abdomen soft. Incision is clean dry tach. Status post reversal colostomy. Patient continue receive supportive care.
--- NOTE | 2020-10-29 13:37 | PN ---
PROGRESS NOTE DATE OF SERVICE: 10/29/2020 REASON FOR FOLLOWUP: Abdominal infection. INTERVAL HISTORY: The patient is afebrile. The patient is complaining of abdominal pain. The patient denies having any chest pain, shortness of breath or cough. No vomiting. Did not have any bowel movement. PHYSICAL EXAMINATION: Blood pressure 167/84, pulse of 83, temperature 98.1. She is 96% on room air. General description is an elderly female lying in bed in no distress. Respiratory system: Unlabored breathing, clear to auscultation anteriorly. Heart S1, S2. Regular rate and rhythm. Abdomen is soft, no tenderness. LABS: Hemoglobin is 10.7, white count 10.5, BUN of 5, creatinine 0.44. DIAGNOSTIC IMPRESSION AND PLAN: Patient admitted to the hospital with abdominal pain with small seroma collection. Patient subsequently did have a laparotomy with reversal of colostomy. No mention of any abscess. White count normal. Blood culture negative. No fever. We will monitor the patient closely off antibiotic therapy. Discontinue Zosyn. MMODL / IJN: [id number] /
--- NOTE | 2020-10-29 13:57 | P.PN ---
Subjective This is a 75-year-old female who was recently admitted with abdominal pain and is being closely monitored. Surgery following along with infectious disease and patient is maintained on IV antibiotic therapy form of Zosyn and will continue. Patient was tentatively scheduled for colostomy reversal with surgery and bowel prep was not completed. Patient is currently undergoing the bowel prep at this time with possible surgery this Saturday. Patient continues to note some drainage at the umbilical site. Patient is afebrile. White blood count is stable at 5.5 and hemoglobin is 10.4. Sodium is 137 with a potassium of 4.0 and current creatinine is 0.53. Gen: This is a 75-year-old female sitting up at the side of the bed awake, alert and oriented 3, well-developed, well-nourished, obese. Temp is 98.5F, pulse is 86, respirations 16, blood pressure is 161/94, oxygen saturation is 99% on room air. 10/25/2020 no much change clinicaly today , she still has some abd pain especially around her colostomy stoma, with mild tenderness, no rebound tenderness pt is hemodynamically stable labs are stable ct of abd: small subcutaneous fluid collection at incision site of abd wall pt is on zosyn plan for colostomy reversal tomorrow by surgery team 10/26/2020 Patient went for colostomy reversal today Patient remains on Zosyn. Expected to got fluids cultured during the procedure 10/27/2020 Patient is a status post colostomy reversal procedure yesterday, her wound is closed. Physical complaining from pain at the surgical site. She is currently placed on morphine 5 mg IV and [place] 10 mg. Social she is on Pepcid added to Protonix by surgery team. She is mildly tachycardic probably secondary to her pain. Also her white cell count went up a little bit to 11 K secondary to surgery. On Zosyn and subcu heparin for DVT prophylaxis. Discussed with surgery team, no wound culture was sent as they felt it is not infected 10/28/2020 Patient is postop day #2, she still have some abdominal pain and nausea. No bowel movement or passing gas yet. But she is burping. We will keep monitoring for now Continue Zofran as needed 10/29/2020 She is postop day #3 for reversal of colostomy, complaining of from pain and tenderness in the abdomen around the incision site. She is on liquid diet but she will and nausea. No bowel movement or passing gas. Mechanically and labs are stable. Hemoglobin yesterday was 7.6 but today is 10.5 which looks close to her admission hemoglobin of 11. Because was no abscess seen during the surgery, Zosyn was discontinued while keep monitoring the patient off antibiotics Objective - Vital Signs Vital signs: Vital Signs Temp 98.1 F 10/29/20 07:58 Pulse 86 10/29/20 07:58 Resp 19 10/29/20 07:58 BP 167/84 10/29/20 07:58 Pulse Ox 96 10/29/20 07:58 Intake & Output 10/28/20 10/29/20 10/29/20 18:59 06:59 18:59 Output Total 550 Balance -550 Weight 77.111 kg Output: Urine 550 Other: Voiding Method Indwelling Catheter Indwelling Catheter Indwelling Catheter - Exam HEENT: Head is atraumatic, normocephalic. Pupils equal, round. Sclerae is anicteric. NECK: Supple. No JVD. No lymphadenopathy. No thyromegaly. LUNGS: Breath Sounds diminished bilaterally with no wheezing or rhonchi noted. No intercostal retractions. HEART: S1, S2 are muffled ABDOMEN: Soft. Obese. Bowel sounds are present. No masses. tenderness noted of the lower quadrants on palpation. Stool noted in the ostomy EXTREMITIES: No pedal edema. No calf tenderness. NEUROLOGICAL: Patient is awake, alert and oriented x3. Cranial nerves 2 through 12 are grossly intact. - Labs CBC & Chem 7: 10/29/20 10:35 10/29/20 10:35 Labs: Abnormal Lab Results - Last 24 Hours (Table) 10/29/20 10/29/20 Range/Units 10:35 10:35 RBC 3.62 L (3.80-5.40) m/uL Hgb 10.7 L (11.4-16.0) gm/dL RDW 16.7 H (11.5-15.5) % Eosinophils # 0.8 H (0-0.7) k/uL Sodium 134 L (137-145) mmol/L Chloride 110 H (98-107) mmol/L Carbon Dioxide 19 L (22-30) mmol/L BUN 5 L (7-17) mg/dL Creatinine 0.44 L (0.52-1.04) mg/dL Glucose 124 H (74-99) mg/dL Assessment and Plan Assessment: recent diverticulitis with mesenteric abscess status post sigmoid colectomy (07/2020) needs reversal of colostomy on 10/26 Abdominal pain secondary to above hypertension Hypocalcemia hypomagnesemia elevated lactic acid, present on admission, possibly secondary to sepsis Increased AST Acute urinary tract infection with sepsis, present on admission History of recent colectomy done for diverticulitis, multiple abscesses causing partial small bowel obstruction, colostomy, lysis of adhesions Atrial fibrillation history History of coronary artery disease history of chest pain History of hypertension History of peptic ulcer disease history of lung cancer History of Guzman's palsy Hypokalemia History of MRSA history of bariatric surgery History of bowel resection history of cholecystectomy History of knee replacements anxiety, depression history of panic disorder Obesity with a body mass index of 31.1 Plan: 75 yo f who presents with abd pain related to her colostomy and h/o diverticulitis. Status post colostomy reversal tomorrow by surgery team continue with pain management Discontinue Zosyn Labs and medication were reviewed.. Continue same treatment. Continue with symptomatic treatment. Resume home medication. Monitor lytes and vitals. DVT and GI prophylaxis. Further recommendations as per clinical course of the patient DVT prophylaxis: heparin GI Prophylaxis: Ppi
[2020-10-29] MEDS: LORazepam 0.5 MG TAB PO PRN (16:17)
[2020-10-29] MEDS ORDERED: FERROUS SULFATE 325 MG TAB PO SCH (17:30)
[2020-10-29] MEDS: QUEtiapine 25 MG TAB PO SCH (20:40)
[2020-10-30] MEDS: HYDROmorphone 0.5 MG/0.5 ML SYRINGE IVP PRN ×4 (01:31→21:35)
[2020-10-30] MEDS: HYDROcodone/APAP 10-325MG 1 EACH TAB PO PRN ×3 (04:28→17:55)
[2020-10-30] MEDS: LEVOTHYROXINE 100 MCG TAB PO SCH (06:31)
[2020-10-30] MEDS: D5-0.45% NACL WITH KCL 20MEQ/L 1,000 ML IV SCH ×3 (08:01→23:08)
[2020-10-30] MEDS: lisinopriL 20 MG TAB PO SCH (08:02)
[2020-10-30] MEDS: FUROSEMIDE 20 MG TAB PO SCH (08:02)
[2020-10-30] MEDS: METOCLOPRAMIDE 5 MG/ML 2 ML VIAL IVP PRN ×2 (08:02→14:31)
[2020-10-30] MEDS: PANTOPRAZOLE 40 MG/10 ML VIAL IVP SCH ×2 (08:02→21:35)
[2020-10-30] MEDS: ONDANSETRON 4 MG/2 ML VIAL IVP PRN (10:11)
--- NOTE | 2020-10-30 10:33 | P.PN ---
Progress Note - Text Progress Note Date: 10/30/20 Patient feels slightly better today. Her Bernal catheter was removed. On exam vital signs are stable. Abdomen soft. Patient will get up and shower today. She'll remain on full liquid diet until her bowel function is improved.
--- NOTE | 2020-10-30 11:36 | P.PN ---
Subjective This is a 75-year-old female who was recently admitted with abdominal pain and is being closely monitored. Surgery following along with infectious disease and patient is maintained on IV antibiotic therapy form of Zosyn and will continue. Patient was tentatively scheduled for colostomy reversal with surgery and bowel prep was not completed. Patient is currently undergoing the bowel prep at this time with possible surgery this Saturday. Patient continues to note some drainage at the umbilical site. Patient is afebrile. White blood count is stable at 5.5 and hemoglobin is 10.4. Sodium is 137 with a potassium of 4.0 and current creatinine is 0.53. Gen: This is a 75-year-old female sitting up at the side of the bed awake, alert and oriented 3, well-developed, well-nourished, obese. Temp is 98.5F, pulse is 86, respirations 16, blood pressure is 161/94, oxygen saturation is 99% on room air. 10/25/2020 no much change clinicaly today , she still has some abd pain especially around her colostomy stoma, with mild tenderness, no rebound tenderness pt is hemodynamically stable labs are stable ct of abd: small subcutaneous fluid collection at incision site of abd wall pt is on zosyn plan for colostomy reversal tomorrow by surgery team 10/26/2020 Patient went for colostomy reversal today Patient remains on Zosyn. Expected to got fluids cultured during the procedure 10/27/2020 Patient is a status post colostomy reversal procedure yesterday, her wound is closed. Physical complaining from pain at the surgical site. She is currently placed on morphine 5 mg IV and [place] 10 mg. Social she is on Pepcid added to Protonix by surgery team. She is mildly tachycardic probably secondary to her pain. Also her white cell count went up a little bit to 11 K secondary to surgery. On Zosyn and subcu heparin for DVT prophylaxis. Discussed with surgery team, no wound culture was sent as they felt it is not infected 10/28/2020 Patient is postop day #2, she still have some abdominal pain and nausea. No bowel movement or passing gas yet. But she is burping. We will keep monitoring for now Continue Zofran as needed 10/29/2020 She is postop day #3 for reversal of colostomy, complaining of from pain and tenderness in the abdomen around the incision site. She is on liquid diet but she will and nausea. No bowel movement or passing gas. Mechanically and labs are stable. Hemoglobin yesterday was 7.6 but today is 10.5 which looks close to her admission hemoglobin of 11. Because was no abscess seen during the surgery, Zosyn was discontinued while keep monitoring the patient off antibiotics 10/30/2020 Patient sitting in bed most of the time, still complaining of from abdominal pain with nausea but no vomiting. She is tolerating liquid diet. Complaining from occasional abdominal pain. Bowel movement or passing gas yet. Patient instructed to decrease her pain medication as she still taking narcotic 10 and Dilaudid 0.5 mg, lower the narcotic to 5 mg and explained the patient about the pain management on the goal of management and she agrees also will discontinue Bernal catheter to help patient out of bed, monitor bladder scan. Discussed with the staff. Also will discontinue Ativan as it lowers pain thresholds Objective - Vital Signs Vital signs: Vital Signs Temp 97.9 F 10/30/20 06:31 Pulse 98 10/30/20 06:31 Resp 18 10/30/20 06:31 BP 130/77 10/30/20 06:31 Pulse Ox 96 10/30/20 06:31 Intake & Output 10/29/20 10/30/20 10/30/20 18:59 06:59 18:59 Intake Total 1600 Output Total 1000 Balance 600 Intake: Intake, IV Titration 1600 Amount D5-0.45% NaCl with KCl 1500 20Meq/l 1,000 ml @ 125 mls/hr IV .Q8H ALFREDO Rx#: [id number] Piperacillin-Tazobactam 3 100 .375 gm In Sodium Chloride 0.9% 100 ml @ 25 mls/hr IVPB Q8H ALFREDO Rx#: [id number] Output: Urine 1000 Other: Voiding Method Indwelling Catheter Indwelling Catheter # Voids 1 - Exam HEENT: Head is atraumatic, normocephalic. Pupils equal, round. Sclerae is anicteric. NECK: Supple. No JVD. No lymphadenopathy. No thyromegaly. LUNGS: Breath Sounds diminished bilaterally with no wheezing or rhonchi noted. No intercostal retractions. HEART: S1, S2 are muffled ABDOMEN: Soft. Obese. Bowel sounds are present. No masses. tenderness noted of the lower quadrants on palpation. Stool noted in the ostomy EXTREMITIES: No pedal edema. No calf tenderness. NEUROLOGICAL: Patient is awake, alert and oriented x3. Cranial nerves 2 through 12 are grossly intact. - Labs CBC & Chem 7: 10/29/20 10:35 10/29/20 10:35 Assessment and Plan Assessment: recent diverticulitis with mesenteric abscess status post sigmoid colectomy (07/2020) needs reversal of colostomy on 10/26 Abdominal pain secondary to above hypertension Hypocalcemia hypomagnesemia elevated lactic acid, present on admission, possibly secondary to sepsis Increased AST Acute urinary tract infection with sepsis, present on admission History of recent colectomy done for diverticulitis, multiple abscesses causing partial small bowel obstruction, colostomy, lysis of adhesions Atrial fibrillation history History of coronary artery disease history of chest pain History of hypertension History of peptic ulcer disease history of lung cancer History of Guzman's palsy Hypokalemia History of MRSA history of bariatric surgery History of bowel resection history of cholecystectomy History of knee replacements anxiety, depression history of panic disorder Obesity with a body mass index of 31.1 Plan: 75 yo f who presents with abd pain related to her colostomy and h/o diverticulitis. Status post colostomy reversal by surgery team continue with pain management, decreased [place]. And new Bernal catheter and monitor bladder scan Discontinue Zosyn Labs and medication were reviewed.. Continue same treatment. Continue with sy mptomatic treatment. Resume home medication. Monitor lytes and vitals. DVT and GI prophylaxis. Further recommendations as per clinical course of the patient DVT prophylaxis: heparin GI Prophylaxis: Ppi
--- NOTE | 2020-10-30 20:38 | PN ---
PROGRESS NOTE DATE OF SERVICE: 10/30/2020 REASON FOR FOLLOWUP: Abdominal pain. INTERVAL HISTORY: Patient's abdominal pain slightly better than yesterday. Patient denies any nausea, no vomiting. Not passing any gas or having bowel movement. No chest pain, shortness of breath or cough. PHYSICAL EXAMINATION: Blood pressure 167/94, pulse 98, temperature 97.8, she is 97% on room air. GENERAL DESCRIPTION: Is an elderly female lying in bed in no distress. RESPIRATORY SYSTEM: Unlabored breathing, clear to auscultation anteriorly. HEART: S1, S2 regular rate and rhythm. ABDOMEN: Soft, ( ). LABS: No new labs have been obtained today. DIAGNOSTIC IMPRESSION AND PLAN: Patient admitted to the hospital with abdominal pain with evidence of some fluid collection and concern for possible abscess versus seroma status post reversal of colostomy. No mention of any abscess on operative report. The patient is currently being monitored closely off antibiotic therapy. Continue supportive care. MMODL / IJN: [id number] /
[2020-10-30] MEDS: QUEtiapine 25 MG TAB PO SCH (21:35)
[2020-10-31] MEDS: HYDROcodone/APAP 10-325MG 1 EACH TAB PO PRN ×3 (00:14→19:39)
[2020-10-31] MEDS: MORPHINE SULFATE ER 15 MG TABLET PO PRN (04:43)
[2020-10-31] MEDS: LEVOTHYROXINE 100 MCG TAB PO SCH (06:17)
[2020-10-31] MEDS: PANTOPRAZOLE 40 MG/10 ML VIAL IVP SCH ×2 (07:18→19:39)
[2020-10-31] MEDS: FUROSEMIDE 20 MG TAB PO SCH (07:18)
[2020-10-31] MEDS: HYDROmorphone 1 MG/ML 1 ML SYRINGE IVP PRN ×2 (07:18→10:14)
[2020-10-31] MEDS: lisinopriL 20 MG TAB PO SCH (07:18)
--- NOTE | 2020-10-31 11:09 | P.PN ---
Subjective Progress Note Date: 10/31/20 CHIEF COMPLAINT: Abdominal pain HISTORY OF PRESENT ILLNESS: Patient is postop day #5 status post colostomy reversal. She is complaining of abdominal pain. She does report that there has been some improvement in her pain since surgery. She is sitting in bedside chair. She reports having a loose bowel movement this morning. She is having flatus. Denies any nausea or vomiting. Afebrile. Currently on a full liquid diet PHYSICAL EXAM: VITAL SIGNS: Reviewed. GENERAL: Well-developed in no acute distress. HEENT: No sclera icterus. Extraocular movements grossly intact. Moist buccal mucosa. Head is atraumatic, normocephalic. ABDOMEN: Soft. Incisional dressing along the mid abdomen is clean dry and intact. The dressing on the left there is an area of saturation along the lateral border NEUROLOGIC: Alert and oriented. Cranial nerves II through XII grossly intact. ASSESSMENT: 1. Status post colostomy reversal 2. History of diverticulitis with mesenteric abscess and adhesions causing partial small bowel obstruction and is status post sigmoid colectomy with end colostomy and lysis of adhesions on 07/10/2020 2. Abdominal pain 3. Small seroma PLAN: -Continue full liquid diet -Continue pain medication as needed -Encouraged patient to increase activity -Encouraged patient to use incentive spirometer -Continue GI and DVT prophylaxis Physician Housetrailer Servicer note has been reviewed by physician. Signing provider agrees with the documented findings, assessment, and plan of care. Objective - Vital Signs Vital signs: Vital Signs Temp 97.7 F 10/31/20 07:45 Pulse 77 10/31/20 07:45 Resp 12 10/31/20 07:45 BP 159/79 10/31/20 07:45 Pulse Ox 98 10/31/20 07:45 Intake & Output 10/30/20 10/31/20 10/31/20 18:59 06:59 18:59 Other: Voiding Method Indwelling Catheter Indwelling Catheter - Labs CBC & Chem 7: 10/29/20 10:35 10/29/20 10:35
--- NOTE | 2020-10-31 12:42 | P.PN ---
Subjective This is a 75-year-old female who was recently admitted with abdominal pain and is being closely monitored. Surgery following along with infectious disease and patient is maintained on IV antibiotic therapy form of Zosyn and will continue. Patient was tentatively scheduled for colostomy reversal with surgery and bowel prep was not completed. Patient is currently undergoing the bowel prep at this time with possible surgery this Saturday. Patient continues to note some drainage at the umbilical site. Patient is afebrile. White blood count is stable at 5.5 and hemoglobin is 10.4. Sodium is 137 with a potassium of 4.0 and current creatinine is 0.53. Gen: This is a 75-year-old female sitting up at the side of the bed awake, alert and oriented 3, well-developed, well-nourished, obese. Temp is 98.5F, pulse is 86, respirations 16, blood pressure is 161/94, oxygen saturation is 99% on room air. 10/25/2020 no much change clinicaly today , she still has some abd pain especially around her colostomy stoma, with mild tenderness, no rebound tenderness pt is hemodynamically stable labs are stable ct of abd: small subcutaneous fluid collection at incision site of abd wall pt is on zosyn plan for colostomy reversal tomorrow by surgery team 10/26/2020 Patient went for colostomy reversal today Patient remains on Zosyn. Expected to got fluids cultured during the procedure 10/27/2020 Patient is a status post colostomy reversal procedure yesterday, her wound is closed. Physical complaining from pain at the surgical site. She is currently placed on morphine 5 mg IV and [place] 10 mg. Social she is on Pepcid added to Protonix by surgery team. She is mildly tachycardic probably secondary to her pain. Also her white cell count went up a little bit to 11 K secondary to surgery. On Zosyn and subcu heparin for DVT prophylaxis. Discussed with surgery team, no wound culture was sent as they felt it is not infected 10/28/2020 Patient is postop day #2, she still have some abdominal pain and nausea. No bowel movement or passing gas yet. But she is burping. We will keep monitoring for now Continue Zofran as needed 10/29/2020 She is postop day #3 for reversal of colostomy, complaining of from pain and tenderness in the abdomen around the incision site. She is on liquid diet but she will and nausea. No bowel movement or passing gas. Mechanically and labs are stable. Hemoglobin yesterday was 7.6 but today is 10.5 which looks close to her admission hemoglobin of 11. Because was no abscess seen during the surgery, Zosyn was discontinued while keep monitoring the patient off antibiotics 10/30/2020 Patient sitting in bed most of the time, still complaining of from abdominal pain with nausea but no vomiting. She is tolerating liquid diet. Complaining from occasional abdominal pain. Bowel movement or passing gas yet. Patient instructed to decrease her pain medication as she still taking narcotic 10 and Dilaudid 0.5 mg, lower the narcotic to 5 mg and explained the patient about the pain management on the goal of management and she agrees also will discontinue Bernal catheter to help patient out of bed, monitor bladder scan. Discussed with the staff. Also will discontinue Ativan as it lowers pain thresholds 10/31/2020 Patient on liquid diet however she is not eating much. Chest complaining of some abdominal pain and asking for pain medication however she has 1 loose bowel movement last night She is hemodynamically stable. She currently is of Zosyn being monitored with no evidence of fever or other signs of infection Objective - Vital Signs Vital signs: Vital Signs Temp 97.7 F 10/31/20 07:45 Pulse 77 10/31/20 07:45 Resp 12 10/31/20 07:45 BP 159/79 10/31/20 07:45 Pulse Ox 98 10/31/20 07:45 Intake & Output 10/30/20 10/31/20 10/31/20 18:59 06:59 18:59 Other: Voiding Method Indwelling Catheter Indwelling Catheter - Exam HEENT: Head is atraumatic, normocephalic. Pupils equal, round. Sclerae is anicteric. NECK: Supple. No JVD. No lymphadenopathy. No thyromegaly. LUNGS: Breath Sounds diminished bilaterally with no wheezing or rhonchi noted. No intercostal retractions. HEART: S1, S2 are muffled ABDOMEN: Soft. Obese. Bowel sounds are present. No masses. tenderness noted of the lower quadrants on palpation. Stool noted in the ostomy EXTREMITIES: No pedal edema. No calf tenderness. NEUROLOGICAL: Patient is awake, alert and oriented x3. Cranial nerves 2 through 12 are grossly intact. - Labs CBC & Chem 7: 10/29/20 10:35 10/29/20 10:35 Assessment and Plan Assessment: recent diverticulitis with mesenteric abscess status post sigmoid colectomy (2020) needs reversal of colostomy on 10/26 Abdominal pain secondary to above hypertension Hypocalcemia hypomagnesemia elevated lactic acid, present on admission, possibly secondary to sepsis Increased AST Acute urinary tract infection with sepsis, present on admission History of recent colectomy done for diverticulitis, multiple abscesses causing partial small bowel obstruction, colostomy, lysis of adhesions Atrial fibrillation history History of coronary artery disease history of chest pain History of hypertension History of peptic ulcer disease history of lung cancer History of Guzman's palsy Hypokalemia History of MRSA history of bariatric surgery History of bowel resection history of cholecystectomy History of knee replacements anxiety, depression history of panic disorder Obesity with a body mass index of 31.1 Plan: 75 yo f who presents with abd pain related to her colostomy and h/o diverticulitis. Status post colostomy reversal by surgery team continue with pain management, decreased [place]. And new Bernal catheter and monitor bladder scan Discontinue Zosyn Labs and medication were reviewed.. Continue same treatment. Continue with symptomatic treatment. Resume home medication. Monitor lytes and vitals. DVT and GI prophylaxis. Further recommendations as per clinical course of the patient DVT prophylaxis: heparin GI Prophylaxis: Ppi
[2020-10-31] MEDS: D5-0.45% NACL WITH KCL 20MEQ/L 1,000 ML IV SCH ×3 (18:51→22:39)
[2020-10-31] MEDS: QUEtiapine 25 MG TAB PO SCH (19:39)
--- NOTE | 2020-10-31 20:02 | PN ---
PROGRESS NOTE DATE OF SERVICE: 10/31/2020 REASON FOR FOLLOW UP: Abdominal infection. INTERVAL HISTORY: The patient is currently afebrile. The patient is breathing comfortably. Still complaining of abdominal pain though no worsening. No chest pain, shortness of breath or cough. No diarrhea. PHYSICAL EXAMINATION: Blood pressure 92/63, pulse of 90, temperature 98.2. She is 92% on room air. General description is an elderly female lying in bed in no distress. Respiratory system: Unlabored breathing, clear to auscultation anteriorly. Heart S1, S2. Regular rate and rhythm. Abdomen soft, incision is currently intact. No significant drainage. LABS: No new labs have been obtained today. DIAGNOSTIC IMPRESSION AND PLAN: Patient admitted to the hospital with abdominal pain and did have abdominal fluid collection, status post reversal of diverting colostomy, no mention of any abscess. The patient is currently doing well off antibiotic therapy for the last few days. Infectious Disease will sign off. Please call back with any questions or need for infectious disease care. MMODL / IJN: [id number] /
[2020-10-31] MEDS: ONDANSETRON 4 MG/2 ML VIAL IVP PRN (20:05)
[2020-10-31] MEDS: HYDROmorphone 0.5 MG/0.5 ML SYRINGE IVP PRN (20:56)
[2020-11-01] MEDS: HYDROcodone/APAP 10-325MG 1 EACH TAB PO PRN ×4 (01:11→20:04)
[2020-11-01] MEDS: LEVOTHYROXINE 100 MCG TAB PO SCH (05:36)
[2020-11-01] MEDS: lisinopriL 20 MG TAB PO SCH (07:32)
[2020-11-01] MEDS: ONDANSETRON 4 MG/2 ML VIAL IVP PRN (07:32)
[2020-11-01] MEDS: FUROSEMIDE 20 MG TAB PO SCH (07:32)
[2020-11-01] MEDS: PANTOPRAZOLE 40 MG/10 ML VIAL IVP SCH ×2 (07:33→20:04)
[2020-11-01] MEDS ORDERED: HYDROmorphone 0.5 MG/0.5 ML SYRINGE IVP PRN (09:27)
--- NOTE | 2020-11-01 13:28 | P.PN ---
Subjective This is a 75-year-old female who was recently admitted with abdominal pain and is being closely monitored. Surgery following along with infectious disease and patient is maintained on IV antibiotic therapy form of Zosyn and will continue. Patient was tentatively scheduled for colostomy reversal with surgery and bowel prep was not completed. Patient is currently undergoing the bowel prep at this time with possible surgery this Saturday. Patient continues to note some drainage at the umbilical site. Patient is afebrile. White blood count is stable at 5.5 and hemoglobin is 10.4. Sodium is 137 with a potassium of 4.0 and current creatinine is 0.53. Gen: This is a 75-year-old female sitting up at the side of the bed awake, alert and oriented 3, well-developed, well-nourished, obese. Temp is 98.5F, pulse is 86, respirations 16, blood pressure is 161/94, oxygen saturation is 99% on room air. 10/25/2020 no much change clinicaly today , she still has some abd pain especially around her colostomy stoma, with mild tenderness, no rebound tenderness pt is hemodynamically stable labs are stable ct of abd: small subcutaneous fluid collection at incision site of abd wall pt is on zosyn plan for colostomy reversal tomorrow by surgery team 10/26/2020 Patient went for colostomy reversal today Patient remains on Zosyn. Expected to got fluids cultured during the procedure 10/27/2020 Patient is a status post colostomy reversal procedure yesterday, her wound is closed. Physical complaining from pain at the surgical site. She is currently placed on morphine 5 mg IV and [place] 10 mg. Social she is on Pepcid added to Protonix by surgery team. She is mildly tachycardic probably secondary to her pain. Also her white cell count went up a little bit to 11 K secondary to surgery. On Zosyn and subcu heparin for DVT prophylaxis. Discussed with surgery team, no wound culture was sent as they felt it is not infected 10/28/2020 Patient is postop day #2, she still have some abdominal pain and nausea. No bowel movement or passing gas yet. But she is burping. We will keep monitoring for now Continue Zofran as needed 10/29/2020 She is postop day #3 for reversal of colostomy, complaining of from pain and tenderness in the abdomen around the incision site. She is on liquid diet but she will and nausea. No bowel movement or passing gas. Mechanically and labs are stable. Hemoglobin yesterday was 7.6 but today is 10.5 which looks close to her admission hemoglobin of 11. Because was no abscess seen during the surgery, Zosyn was discontinued while keep monitoring the patient off antibiotics 10/30/2020 Patient sitting in bed most of the time, still complaining of from abdominal pain with nausea but no vomiting. She is tolerating liquid diet. Complaining from occasional abdominal pain. Bowel movement or passing gas yet. Patient instructed to decrease her pain medication as she still taking narcotic 10 and Dilaudid 0.5 mg, lower the narcotic to 5 mg and explained the patient about the pain management on the goal of management and she agrees also will discontinue Bernal catheter to help patient out of bed, monitor bladder scan. Discussed with the staff. Also will discontinue Ativan as it lowers pain thresholds 10/31/2020 Patient on liquid diet however she is not eating much. Chest complaining of some abdominal pain and asking for pain medication however she has 1 loose bowel movement last night She is hemodynamically stable. She currently is of Zosyn being monitored with no evidence of fever or other signs of infection 11/01/2020 Patient awake. No new complaints. He is having loose bowel movement yesterday, however she is not eating much and is constantly asking about pain medication. She is complaining of from abdominal pain, We'll give smaller doses of Dilaudid at 0.25 for better pain control instead of 0.5 or 1 mg of Dilaudid. She remains on [place] 10 which is her home dose. She does not need antibiotics and ID team signed off Surgery team are planning for discharge in 24-48 hours if she keeps improving Objective - Vital Signs Vital signs: Vital Signs Temp 98.3 F 11/01/20 07:42 Pulse 90 11/01/20 07:42 Resp 18 11/01/20 07:42 BP 154/76 11/01/20 07:42 Pulse Ox 98 11/01/20 07:42 Intake & Output 10/31/20 11/01/20 11/01/20 18:59 06:59 18:59 Weight 77.111 kg Other: Voiding Method Indwelling Catheter Toilet Toilet # Voids 3 - Exam HEENT: Head is atraumatic, normocephalic. Pupils equal, round. Sclerae is anicteric. NECK: Supple. No JVD. No lymphadenopathy. No thyromegaly. LUNGS: Breath Sounds diminished bilaterally with no wheezing or rhonchi noted. No intercostal retractions. HEART: S1, S2 are muffled ABDOMEN: Soft. Obese. Bowel sounds are present. No masses. tenderness noted of the lower quadrants on palpation. Stool noted in the ostomy EXTREMITIES: No pedal edema. No calf tenderness. NEUROLOGICAL: Patient is awake, alert and oriented x3. Cranial nerves 2 through 12 are grossly intact. - Labs CBC & Chem 7: 10/29/20 10:35 10/29/20 10:35 Assessment and Plan Assessment: recent diverticulitis with mesenteric abscess status post sigmoid colectomy (07/2020) needs reversal of colostomy on 10/26 Abdominal pain secondary to above hypertension Hypocalcemia hypomagnesemia elevated lactic acid, present on admission, possibly secondary to sepsis Increased AST Acute urinary tract infection with sepsis, present on admission History of recent colectomy done for diverticulitis, multiple abscesses causing partial small bowel obstruction, colostomy, lysis of adhesions Atrial fibrillation history History of coronary artery disease history of chest pain History of hypertension History of peptic ulcer disease history of lung cancer History of Guzman's palsy Hypokalemia History of MRSA history of bariatric surgery History of bowel resection history of cholecystectomy History of knee replacements anxiety, depression history of panic disorder Obesity with a body mass index of 31.1 Plan: 75 yo f who presents with abd pain related to her colostomy and h/o diverticulitis. Status post colostomy reversal by surgery team continue with pain management, decreased [place]. And new Bernal catheter and monitor bladder scan Discontinue Zosyn Labs and medication were reviewed.. Continue same treatment. Continue with symptomatic treatment. Resume home medication. Monitor lytes and vitals. DVT and GI prophylaxis. Further recommendations as per clinical course of the patient DVT prophylaxis: heparin GI Prophylaxis: Ppi
--- NOTE | 2020-11-01 14:27 | P.PN ---
Subjective Progress Note Date: 11/01/20 CHIEF COMPLAINT: Abdominal pain HISTORY OF PRESENT ILLNESS: Patient is postop day #6 status post colostomy reversal. Patient is reporting decrease in abdominal pain. She denies any nausea or vomiting. She is having flatus and BM. She has been up and ambulating with physical therapy. Her oral intake is decreased. However patient does drink ensure at each meal. This afternoon she was able to eat a whole bowl of soup. Patient reports that when she goes home her sister will be making her meals and will make sure that she eats. Patient also reports that she does not usually eat large meals at home. She is currently on a regular diet. Afebrile. PHYSICAL EXAM: VITAL SIGNS: Reviewed. GENERAL: Well-developed in no acute distress. HEENT: No sclera icterus. Extraocular movements grossly intact. Moist buccal mucosa. Head is atraumatic, normocephalic. ABDOMEN: Soft. Nondistended NEUROLOGIC: Alert and oriented. Cranial nerves II through XII grossly intact. ASSESSMENT: 1. Status post colostomy reversal 2. History of diverticulitis with mesenteric abscess and adhesions causing parti al small bowel obstruction and is status post sigmoid colectomy with end colostomy and lysis of adhesions on 07/10/2020 2. Abdominal pain 3. Small seroma PLAN: -Anticipate discharge possibly tomorrow -Abdominal binder ordered -Continue regular diet -Continue ensure -Continue pain medication as needed -Encouraged patient to increase activity -Encouraged patient to use incentive spirometer -Continue GI and DVT prophylaxis Physician Customer Logistics Manager note has been reviewed by physician. Signing provider agrees with the documented findings, assessment, and plan of care. Objective - Vital Signs Vital signs: Vital Signs Temp 98.2 F 11/01/20 13:47 Pulse 72 11/01/20 13:47 Resp 18 11/01/20 13:47 BP 169/97 11/01/20 13:47 Pulse Ox 98 11/01/20 07:42 Intake & Output 10/31/20 11/01/20 11/01/20 18:59 06:59 18:59 Weight 77.111 kg Other: Voiding Method Indwelling Catheter Toilet Toilet # Voids 3 - Labs CBC & Chem 7: 10/29/20 10:35 10/29/20 10:35
[2020-11-01] MEDS: D5-0.45% NACL WITH KCL 20MEQ/L 1,000 ML IV SCH ×4 (18:36→22:54)
[2020-11-01] MEDS: QUEtiapine 25 MG TAB PO SCH (20:46)
[2020-11-01] MEDS: MORPHINE SULFATE ER 15 MG TABLET PO PRN (21:13)
[2020-11-02] MEDS ORDERED: HYDROcodone/APAP 10-325MG 1 EACH TAB ONE (02:03)
[2020-11-02 05:17] LABS: African American GFR (CKD) >90 (>60 ml/min/1.73 sqM); Anion Gap 2 mmol/L; Blood Urea Nitrogen 3 mg/dL (7-17); Calcium 7.8 mg/dL (8.4-10.2); Carbon Dioxide 23 mmol/L (22-30); Chloride 104 mmol/L (98-107); Glucose 109 mg/dL (74-99); Non-African American GFR(CKD) >90 (>60 ml/min/1.73 sqM); Potassium 3.9 mmol/L (3.5-5.1); Sodium 129 mmol/L (137-145)
[2020-11-02] MEDS: LEVOTHYROXINE 100 MCG TAB PO SCH (06:48)
[2020-11-02] MEDS: HYDROcodone/APAP 10-325MG 1 EACH TAB PO PRN (08:52)
[2020-11-02] MEDS: FUROSEMIDE 20 MG TAB PO SCH (08:53)
[2020-11-02] MEDS: lisinopriL 20 MG TAB PO SCH (08:53)
[2020-11-02] MEDS: PANTOPRAZOLE 40 MG/10 ML VIAL IVP SCH (08:54)
[2020-11-02] MEDS: D5-0.45% NACL WITH KCL 20MEQ/L 1,000 ML IV SCH (08:59)
[2020-11-02 09:07] VITALS: BP 139/84; PULSE 90; RESP 18; TEMP 97.9
[2020-11-02 10:56] LABS: Anisocytosis Slight; Basophils % (A) 0 %; Eosinophils # (A) 0.7 k/uL (0-0.7); Eosinophils % (A) 11 %; HCT 27.4 % (34.0-46.0); Lymphocytes # (A) 1.2 k/uL (1.0-4.8); Lymphocytes % (A) 19 %; MCH 30.2 pg (25.0-35.0); MCHC 32.3 g/dL (31.0-37.0); MCV 93.4 fL (80.0-100.0); Mean Platelet Volume 11.1; Monocytes # (A) 0.5 k/uL (0-1.0); Monocytes % (A) 9 %; Neutrophils # (A) 3.7 k/uL (1.3-7.7); Neutrophils % (A) 59 %; Platelet Count 277 k/uL (150-450); RBC 2.93 m/uL (3.80-5.40); RDW 16.6 % (11.5-15.5); WBC 6.3 k/uL (3.8-10.6)
[2020-11-02 10:57] LABS: HGB 8.9 gm/dL (11.4-16.0)
--- NOTE | 2020-11-02 11:27 | P.PN ---
<Birdie Pritchett - Last Filed: 11/02/20 11:23> Subjective Progress Note Date: 11/02/20 CHIEF COMPLAINT: Abdominal pain HISTORY OF PRESENT ILLNESS: Patient is postop day #7 status post colostomy reversal. Patient reports that each day she is getting better. Patient is reporting decrease in abdominal pain. She is having bowel movements and flatus. Patient was able to eat almost her whole sandwich at dinnertime as well as her insurer. She was able to eat pain cakes and sausage this morning. That settled fine. She had some cantaloupe that she reports that she vomited up just only the cantaloupe small amount. Since then she has not had any nausea. And she feels ready for discharge. She has been up and ambulating. Afebrile. No new labs PHYSICAL EXAM: VITAL SIGNS: Reviewed. GENERAL: Well-developed in no acute distress. HEENT: No sclera icterus. Extraocular movements grossly intact. Moist buccal mucosa. Head is atraumatic, normocephalic. ABDOMEN: Soft. Nondistended. Incision site clean dry and intact. Incision site where old ostomy was located has drain in place and is clean dry and intact . NEUROLOGIC: Alert and oriented. Cranial nerves II through XII grossly intact. ASSESSMENT: 1. Status post colostomy reversal 2. History of diverticulitis with mesenteric abscess and adhesions causing partial small bowel obstruction and is status post sigmoid colectomy with end colostomy and lysis of adhesions on 07/10/2020 2. Abdominal pain 3. Small seroma PLAN: -Patient can be discharge from surgical standpoint -Continue GI and DVT prophylaxis Physician Senior Writer note has been reviewed by physician. Signing provider agrees with the documented findings, assessment, and plan of care. Objective - Vital Signs Vital signs: Vital Signs Temp 97.9 F 11/02/20 08:17 Pulse 90 11/02/20 08:17 Resp 18 11/02/20 08:17 BP 139/84 11/02/20 08:17 Pulse Ox 97 11/02/20 08:17 Intake & Output 11/01/20 11/02/20 11/02/20 18:59 06:59 18:59 Other: Voiding Method Toilet Toilet # Voids 3 # Bowel Movements 2 - Labs CBC & Chem 7: 11/01/20 22:55 10/29/20 10:35 Labs: Abnormal Lab Results - Last 24 Hours (Table) 11/01/20 Range/Units 22:55 RBC 2.93 L (3.80-5.40) m/uL Hgb 8.9 L D (11.4-16.0) gm/dL Hct 27.4 L (34.0-46.0) % RDW 16.6 H (11.5-15.5) % <George Gamble - Last Filed: 11/02/20 19:16> Subjective As above. Patient doing well today. Tolerating diet. Good bowel function. May discharge. Follow-up one week. Objective - Vital Signs Vital signs: Vital Signs Temp 97.9 F 11/02/20 08:17 Pulse 90 11/02/20 08:17 Resp 18 11/02/20 08:17 BP 139/84 11/02/20 08:17 Pulse Ox 97 11/02/20 08:17 Intake & Output 11/02/20 11/02/20 11/03/20 06:59 18:59 06:59 Other: Voiding Method Toilet # Voids 3 # Bowel Movements 2 - Labs CBC & Chem 7: 11/01/20 22:55 10/29/20 10:35 Labs: Abnormal Lab Results - Last 24 Hours (Table) 11/01/20 Range/Units 22:55 RBC 2.93 L (3.80-5.40) m/uL Hgb 8.9 L D (11.4-16.0) gm/dL Hct 27.4 L (34.0-46.0) % RDW 16.6 H (11.5-15.5) %
--- NOTE | 2020-11-03 22:37 | P.DS ---
Providers Date of admission: 10/22/20 12:27 Attending physician: Compa Medina Consults: 10/20/20 16:20 Consult Physician Urgent Consulting Provider: Phil Burt Consult Reason/Comments: Abdominal pain Do you want consulting provider notified?: Yes 10/20/20 17:59 Consult Physician Routine Consulting Provider: Doyle Lawson Consult Reason/Comments: sepsis Do you want consulting provider notified?: Yes Primary care physician: Courtney Cook [facility] Course: Diagnoses: recent diverticulitis with mesenteric abscess status post sigmoid colectomy (07/2020) needed reversal of colostomy on 10/26 Abdominal pain secondary to above , improved hypertension Hypocalcemia hypomagnesemia elevated lactic acid, present on admission, possibly secondary to sepsis Increased AST Acute urinary tract infection with sepsis, present on admission History of recent colectomy done for diverticulitis, multiple abscesses causing partial small bowel obstruction, colostomy, lysis of adhesions Atrial fibrillation history History of coronary artery disease history of chest pain History of hypertension History of peptic ulcer disease history of lung cancer History of Guzman's palsy Hypokalemia History of MRSA history of bariatric surgery History of bowel resection history of cholecystectomy History of knee replacements anxiety, depression history of panic disorder Obesity with a body mass index of 31.1 Hospital course: This is a 75-year-old female who was recently admitted with abdominal pain and is being closely monitored. Surgery following along with infectious disease and patient is maintained on IV antibiotic therapy form of Zosyn . Patient has History of diverticulitis status post sigmoid colectomy with end colostomy on 07/10/2020 . Patient was admitted for reversal colostomy Patient went for colostomy reversal on 10/26. Patient was treated with short course of IV Zosyn, she finished her course with no overt signs of infection and her antibiotics were stopped per ID team recommendations Postoperatively patient had a slow course for healing, eventually she tolerated diet well. She had a regular bowel movement for 2 days prior to discharge and her abdominal pain significantly subsided Patient was cleared for discharge by surgery team Patient was instructed to use home dose of [place] Problems and management plan were discussed with the patient and he verbalized understanding and acceptance Patient was found stable and can be discharged home however he needs follow-up as an outpatient. Patient was instructed to follow up with PCP Dr. Chow within one week and patient agrees Patient agrees with the appointments made for her with Dr. Blanco on 11/08 Physical exam Gen: patient is a AAOx3, no distress CVS: S1-S2, RRR, no murmur Lungs: B/L CTA, no wheezing -Abdomen: soft, no distention, no tenderness, positive bowel sounds. Surgical wound is closed and healing Extremity: no leg edema or induration Time spent more than 35 minutes Plan - Discharge Summary Discharge Rx Participant: Yes New Discharge Prescriptions: Continue Levothyroxine Sodium [Synthroid] 200 mcg PO DAILY Ondansetron Odt [Zofran ODT] 4 mg PO Q8HR PRN #10 tab PRN Reason: Nausea Mag Hydrox/Al Hydrox/Simeth [Maalox] 30 ml PO QID PRN #300 ml PRN Reason: denture pain QUEtiapine FUMARATE [SEROquel] 25 mg PO HS 30 Days #30 tab HYDROcodone/APAP 10-325MG [Bent[place] 10-325] 1 tab PO Q6H PRN PRN Reason: Pain Furosemide [Lasix] 20 mg PO DAILY Lidocaine Viscous [Xylocaine Viscous 2%] 30 ml PO QID PRN #200 ml PRN Reason: denture pain Acetaminophen Tab [Tylenol] 650 mg PO Q4HR PRN tab PRN Reason: Fever And/ Or Pain lisinopriL 40 mg PO DAILY 30 Days #30 tab Pantoprazole [Protonix] 40 mg PO DAILY 30 Days #30 tab Discontinued Lactulose [Cephulac] 20 gm PO BID PRN #300 ml PRN Reason: Constipation Morphine Sulfate ER [Ms Contin] 15 mg PO DAILY PRN PRN Reason: Pain LORazepam [Ativan] 0.25 - 0.5 mg PO BID PRN PRN Reason: Anxiety Discharge Medication List Levothyroxine Sodium [Synthroid] 200 mcg PO DAILY 01/12/19 [History] Lidocaine Viscous [Xylocaine Viscous 2%] 30 ml PO QID PRN #200 ml 09/23/20 [Rx] Ondansetron Odt [Zofran ODT] 4 mg PO Q8HR PRN #10 tab 09/23/20 [Rx] Acetaminophen Tab [Tylenol] 650 mg PO Q4HR PRN tab 09/26/20 [Rx] Mag Hydrox/Al Hydrox/Simeth [Maalox] 30 ml PO QID PRN #300 ml 09/26/20 [Rx] Pantoprazole [Protonix] 40 mg PO DAILY 30 Days #30 tab 09/26/20 [Rx] QUEtiapine FUMARATE [SEROquel] 25 mg PO HS 30 Days #30 tab 09/26/20 [Rx] lisinopriL 40 mg PO DAILY 30 Days #30 tab 09/26/20 [Rx] Furosemide [Lasix] 20 mg PO DAILY 10/20/20 [History] HYDROcodone/APAP 10-325MG [B[place] 10-325] 1 tab PO Q6H PRN 10/20/20 [History] Follow up Appointment(s)/Referral(s): Joey Valdez MD [Primary Care Provider] - 1-2 days [facility] Visiting Nurse, [NON-STAFF] - Phil Burt MD [STAFF PHYSICIAN] - 11/08/20 1:30 pm Activity/Diet/Wound Care/Special Instructions: Heart healthy diet Activity is restricted till you see your doctor No driving while taking Narcotics No lifting over 10 pounds You may shower. No soaking or tub baths for 2 weeks Very light activity until you are reevaluated at your follow up appointment with your surgeon Discharge Disposition: HOME WITH HOME HEALTH SERVICES
== END 2020-11-02 14:34 | disposition home health service (06) | DRG 854 ==
LOC: EC 12:45 → 6NMEDSUR 16:30 → 4SSUR 22:06 → OBSVTOIN 10-22 12:27 → 6PED 11-01 16:57
PROVIDERS: ADMIT Hospitalist; ATTEND Hospitalist
PROC: 0DJD8ZZ Inspection of Lower Intestinal Tract, Via Natural or Artificial Opening Endoscopic (ICD-10-PCS; principal; 2020-10-22)
PROC: 0DN80ZZ Release Small Intestine, Open Approach (ICD-10-PCS; principal; 2020-10-22)
PROC: 0DBN0ZZ Excision of Sigmoid Colon, Open Approach (ICD-10-PCS; principal; 2020-10-22)
DX: A41.9 Sepsis, unspecified organism (principal); L76.34 Postprocedural seroma of skin and subcutaneous tissue following other procedure; N39.0 Urinary tract infection, site not specified; K76.0 Fatty (change of) liver, not elsewhere classified; E83.51 Hypocalcemia; Z43.3 Encounter for attention to colostomy; K66.0 Peritoneal adhesions (postprocedural) (postinfection); E87.6 Hypokalemia; E83.42 Hypomagnesemia; F32.9 Major depressive disorder, single episode, unspecified; I10 Essential (primary) hypertension; I25.10 Atherosclerotic heart disease of native coronary artery without angina pectoris; K21.9 Gastro-esophageal reflux disease without esophagitis; K59.09 Other constipation; G89.29 Other chronic pain; M54.9 Dorsalgia, unspecified; H26.9 Unspecified cataract; E07.9 Disorder of thyroid, unspecified; H54.7 Unspecified visual loss; M19.90 Unspecified osteoarthritis, unspecified site; F41.0 Panic disorder [episodic paroxysmal anxiety]; E66.9 Obesity, unspecified; Z68.31 Body mass index [BMI] 31.0-31.9, adult; Z79.890 Hormone replacement therapy; Z79.899 Other long term (current) drug therapy; Z60.2 Problems related to living alone; Z86.79 Personal history of other diseases of the circulatory system; Z90.49 Acquired absence of other specified parts of digestive tract; Z87.19 Personal history of other diseases of the digestive system; Z87.11 Personal history of peptic ulcer disease; Z85.21 Personal history of malignant neoplasm of larynx; Z87.820 Personal history of traumatic brain injury; Z86.14 Personal history of Methicillin resistant Staphylococcus aureus infection; Z98.84 Bariatric surgery status; Z90.710 Acquired absence of both cervix and uterus; Z87.42 Personal history of other diseases of the female genital tract; Z87.39 Personal history of other diseases of the musculoskeletal system and connective tissue; Z86.69 Personal history of other diseases of the nervous system and sense organs; Z96.653 Presence of artificial knee joint, bilateral; Z87.891 Personal history of nicotine dependence; Z85.118 Personal history of other malignant neoplasm of bronchus and lung; Z90.02 Acquired absence of larynx; Z95.5 Presence of coronary angioplasty implant and graft; Z98.42 Cataract extraction status, left eye; Z92.3 Personal history of irradiation; Z98.890 Other specified postprocedural states; Z71.3 Dietary counseling and surveillance; Y83.3 Surgical operation with formation of external stoma as the cause of abnormal reaction of the patient, or of later complication, without mention of misadventure at the time of the procedure; Z88.1 Allergy status to other antibiotic agents; Z91.040 Latex allergy status; Z83.3 Family history of diabetes mellitus; Z82.49 Family history of ischemic heart disease and other diseases of the circulatory system
CPT/HCPCS: 36415; 74176; 74177; 76705; 80048; 80053; 81001; 82150; 83605; 83690; 83735; 84132; 85025; 85610; 85652; 85730; 86038; 86140; 86431; 86850; 86900; 86901; 87040; 87086; 88304; 94760; 96361; 96374; 96376; 99285

== ENCOUNTER 2020-11-24 21:23 | Inpatient (IN) | payer MEDICARE ==
[2020-11-24] MEDS ORDERED: SODIUM CHLORIDE 0.9% 1,000 ML IV STA (21:45)
[2020-11-24] MEDS ORDERED: ONDANSETRON 4 MG/2 ML VIAL IVP STA (21:45)
[2020-11-24] MEDS ORDERED: MORPHINE SULFATE 4 MG/ML SYRINGE IV STA (21:45)
[2020-11-24 22:12] LABS: INR 1.3 (<1.2); Partial Thromboplastin Time 24.1 sec (22.0-30.0)
[2020-11-24 22:19] LABS: ALT 15 U/L (4-34); AST 46 U/L (14-36); African American GFR (CKD) >90 (>60 ml/min/1.73 sqM); Albumin 3.1 g/dL (3.5-5.0); Alkaline Phosphatase 207 U/L (38-126); Amylase <30 U/L (30-110); Anion Gap 11 mmol/L; Blood Urea Nitrogen 6 mg/dL (7-17); Calcium 8.7 mg/dL (8.4-10.2); Carbon Dioxide 25 mmol/L (22-30); Chloride 98 mmol/L (98-107); Glucose 128 mg/dL (74-99); Lipase 38 U/L (23-300); Non-African American GFR(CKD) >90 (>60 ml/min/1.73 sqM); Sodium 134 mmol/L (137-145); Total Bilirubin 0.9 mg/dL (0.2-1.3); Total Protein 6.6 g/dL (6.3-8.2)
[2020-11-24 22:20] LABS: Basophils # (A) 0.1 k/uL (0-0.2); Basophils % (A) 1 %; Eosinophils % (A) 0 %; HCT 36.5 % (34.0-46.0); Lymphocytes # (A) 1.7 k/uL (1.0-4.8); Lymphocytes % (A) 25 %; MCH 30.3 pg (25.0-35.0); MCHC 32.8 g/dL (31.0-37.0); MCV 92.2 fL (80.0-100.0); Mean Platelet Volume 8.2; Monocytes # (A) 0.4 k/uL (0-1.0); Monocytes % (A) 7 %; Neutrophils # (A) 4.2 k/uL (1.3-7.7); Neutrophils % (A) 64 %; Platelet Count 528 k/uL (150-450); RBC 3.95 m/uL (3.80-5.40); RDW 15.7 % (11.5-15.5); WBC 6.6 k/uL (3.8-10.6)
[2020-11-24 22:23] LABS: Potassium 2.8 mmol/L (3.5-5.1)
[2020-11-24] MEDS ORDERED: MORPHINE SULFATE 4 MG/ML SYRINGE IVP STA (23:14)
--- NOTE | 2020-11-24 23:17 | ED ---
General Adult HPI - General Source: patient, family Mode of arrival: wheelchair Limitations: no limitations <Xin Antony - Last Filed: 11/24/20 23:12> - General Source: RN notes reviewed, old records reviewed - History of Present Illness Location: abdomen Severity scale (1-10): 6 Quality: aching, sharp Consistency: intermittent Improves with: none Worsens with: none Associated Symptoms: loss of appetite, nausea/vomiting, shortness of breath, weakness Treatments Prior to Arrival: none <Sen Mckinney - Last Filed: 11/25/20 01:33> - General Chief complaint: Nausea/Vomiting/Diarrhea Stated complaint: N/V Time Seen by Provider: 11/24/20 21:33 - History of Present Illness Initial comments: Patient is a 75-year-old female with history of A. fib, hypertension, recent bowel surgery, presenting to the emergency Department with complaints of nausea, vomiting and abdominal pain that started early this morning around 10 AM. Patient was recently discharged on 11/02/2020 after undergoing a colostomy reversal, by Dr. Burt. She is a history of diverticulitis with mesenteric abscess and adhesions causing partial small bowel obstruction, she had a sigmoid colectomy with end colostomy on 07/10/2020. She had reversal performed on 10/26/2020. She was doing well at discharge, very minimal pain, having regular bowel movements and passing gas. Patient states around 10 AM this morning started having abdominal pain and nausea. She said a few hours later started developing vomiting and she has not been able to stop. She describes her pain is mostly around her belly button but states it goes everywhere. She denies any chest pain or shortness of breath. She states yesterday she felt a little bit of abdominal pain and mild nausea but was still able to go about her day. She denies any fevers or chills. She is not on any antibiotics. She had a single episode of diarrhea this morning. She is unsure if she's been passing gas today. Patient also has history of bariatric surgery, cholecystectomy and hysterectomy. She denies any dysuria or hematuria. She has no further complaints at this time. Her vital signs are stable upon arrival. (Xin Antony) 75 male who does present for abdominal pain. Patient is currently with improve abdominal pain here in the emergency prior. Patient also in [facility]-onset atrial fibrillation with RVR which is now rate controlled (Sen Mckinney) - Related Data Home Medications Medication Instructions Recorded Confirmed Levothyroxine Sodium [Synthroid] 200 mcg PO DAILY 01/12/19 10/20/20 Furosemide [Lasix] 20 mg PO DAILY 10/20/20 10/20/20 HYDROcodone/APAP 10-325MG [[place] 1 tab PO Q6H PRN 10/20/20 10/20/20 10-325] Previous Rx's Medication Instructions Recorded Lidocaine Viscous [Xylocaine 30 ml PO QID PRN #200 ml 09/23/20 Viscous 2%] Ondansetron Odt [Zofran ODT] 4 mg PO Q8HR PRN #10 tab 09/23/20 Acetaminophen Tab [Tylenol] 650 mg PO Q4HR PRN tab 09/26/20 Mag Hydrox/Al Hydrox/Simeth 30 ml PO QID PRN #300 ml 09/26/20 [Maalox] Pantoprazole [Protonix] 40 mg PO DAILY 30 Days #30 tab 09/26/20 QUEtiapine FUMARATE [SEROquel] 25 mg PO HS 30 Days #30 tab 09/26/20 lisinopriL 40 mg PO DAILY 30 Days #30 tab 09/26/20 Allergies Allergy/AdvReac Type Severity Reaction Status Date / Time latex Allergy Unknown Verified 11/24/20 21:27 vancomycin Allergy Rash/Hives Verified 11/24/20 21:27 Review of Systems ROS Other: All systems not noted in ROS Statement are negative. <Xin Antony - Last Filed: 11/24/20 23:12> ROS Other: All systems not noted in ROS Statement are negative. <Sen Mckinney - Last Filed: 11/25/20 01:33> ROS Statement: Those systems with pertinent positive or pertinent negative responses have been documented in the HPI. 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 History of Any Multi-Drug Resistant Organisms: MRSA Date of last positivie culture/infection: 1997 MDRO Source:: left shoulder Past Surgical History: Bariatric Surgery, Bowel Resection, Cholecystectomy, Heart Catheterization, Heart Catheterization With Stent, Hysterectomy, Joint Replacement, Orthopedic Surgery Additional Past Surgical History / Comment(s): Bilateral knee replacement, left shoulder rotator cuff surgery, gastric bypass, D&C, EGD/colonoscopy, laryngeal tumor removed 30 radiation treatments about 20 years ago, Ganglion Cysts both wrists.PAIN CLINIC INJECTIONS, colostomy 06/26, Past Anesthesia/Blood Transfusion Reactions: No Reported Reaction Date of Last Stent Placement:: 2003 Past Psychological History: Anxiety, Depression, Panic Disorder Smoking Status: Former smoker Past Alcohol Use History: None Reported Past Drug Use History: None Reported - Past Family History Mother Family Medical History: Cancer, Congestive Heart Failure (CHF), Diabetes Mellitus, Hypertension Additional Family Medical History / Comment(s): Mother passed at 93. Father Family Medical History: Myocardial Infarction ([place]) Additional Family Medical History / Comment(s): Father of a [place] at the age of 39 yrs. Sister(s) Family Medical History: Cancer Brother(s) Family Medical History: Cancer, Myocardial Infarction ([place]) <Xin Antony L - Last Filed: 11/24/20 23:12> General Exam Limitations: no limitations <Xin Antony - Last Filed: 11/24/20 23:12> General appearance: alert, in no apparent distress Head exam: Present: atraumatic, normocephalic, normal inspection Eye exam: Present: normal appearance, PERRL, EOMI. Absent: scleral icterus, conjunctival injection, periorbital swelling ENT exam: Present: normal exam, mucous membranes moist Neck exam: Present: normal inspection. Absent: tenderness, meningismus, lymphadenopathy Respiratory exam: Present: normal lung sounds bilaterally. Absent: respiratory distress, wheezes, rales, rhonchi, stridor Cardiovascular Exam: Present: tachycardia, irregular rhythm, normal heart sounds. Absent: systolic murmur, diastolic murmur, rubs, gallop, clicks GI/Abdominal exam: Present: soft, normal bowel sounds. Absent: distended, tenderness, guarding, rebound, rigid Extremities exam: Present: normal inspection, full ROM, normal capillary refill. Absent: tenderness, pedal edema, joint swelling, calf tenderness Back exam: Present: normal inspection Neurological exam: Present: alert, oriented X3, CN II-XII intact Psychiatric exam: Present: normal affect, normal mood Skin exam: Present: warm, dry, intact, normal color. Absent: rash <Sen Mckinney - Last Filed: 11/25/20 01:33> - General Exam Comments Initial Comments: GENERAL: Patient is well-developed and well-nourished. Patient is nontoxic and in mild to moderate distress, actively dry heaving. HEAD: Atraumatic, normocephalic. EYES: Pupils equal round and reactive to light, extraocular movements intact, sclera anicteric, conjunctiva are normal. Eyelids were unremarkable. ENT: TMs normal, nares patent, oropharynx clear without exudates. Moist mucous membranes. NECK: Normal range of motion, supple without lymphadenopathy or JVD. LUNGS: Unlabored respirations. Breath sounds clear to auscultation bilaterally and equal. No wheezes rales or rhonchi. HEART: Tachycardia rate and rhythm without murmurs, rubs or gallops. ABDOMEN: Soft, tender to palpation of the entire abdomen, more so in the mid region, she is guarding. normoactive bowel sounds. No masses appreciated. : Deferred MUSCULOSKELETAL: Normal extremities with adequate strength and normal range of motion, no pitting or edema. No clubbing or cyanosis. NEUROLOGICAL: Patient is alert and oriented x 3. Motor and sensory are also intact. Cranial nerves II through XII grossly intact. Symmetrical smile. Normal speech, normal gait. PSYCH: Normal mood, normal affect. SKIN: Warm, Dry, normal turgor, no rashes or lesions noted. (Xin Antony) Course <HankSen - Last Filed: 11/25/20 01:33> Vital Signs 11/24/20 11/24/20 11/24/20 21:27 22:26 23:51 Temperature 97.9 F Pulse Rate 60 114 H 109 H Respiratory 26 H 18 16 Rate Blood Pressure 146/82 133/78 147/73 O2 Sat by Pulse 99 98 97 Oximetry 11/25/20 01:01 Temperature Pulse Rate 92 Respiratory Rate Blood Pressure O2 Sat by Pulse Oximetry - Reevaluation(s) Reevaluation #1: 11/25/20 01:31 Medical record is reviewed (Sen Mckinney) Reevaluation #2: 11/25/20 01:31 Patient remains with pain control (Sen Mckinney) Reevaluation #3: 11/25/20 01:31 A she is informed of results and questions have been answered (Sen Mckinney) EKG Findings - EKG Comments: EKG Findings:: EKG at 2140, reads A. fib with RVR with premature ventricular conducted complexes, nonspecific ST and T-wave abnormalities, no signs of acute ST segment elevation. Ventricular rate is 148, QRS duration 84, QT 342. EKG was repeated at 2252: A. fib with RVR with premature ventricular complexes, nonspecific ST and T-wave abnormalities, no signs of acute ST segment elevation. Ventricular rate 110, QRS duration 76, QT 384. <Xin Antony - Last Filed: 11/24/20 23:12> Medical Decision Making - Lab Data Result diagrams: 11/24/20 21:50 11/24/20 21:50 <Xin Antony - Last Filed: 11/24/20 23:12> - Lab Data Result diagrams: 11/24/20 21:50 11/24/20 21:50 - Radiology Data Radiology results: report reviewed (CT abdomen and pelvis is negative for significant acute disease), image reviewed <Sen Mckinney - Last Filed: 11/25/20 01:33> - Medical Decision Making Patient is a 75-year-old female presenting with abdominal pain, nausea and vomiting started about 10 AM this morning. Patient recently had a colostomy reversal on 10/26/20, after having diverticulitis with mesenteric abscess and adhesions causing small bowel obstruction on 07/10/2020. This is performed by Dr. Burt. She denies any chest pain or shortness of breath, no fevers. She does have a small diarrhea bowel movement this morning. Vitals were stable upon arrival. (Xin Antony) 85 female DF for abdominal pain acute on chronic abdominal pain with history of bariatric surgery patient will be admitted for surgical evaluation and managem ent of abdominal pain although pain is now controlled. At this time patient does have new onset atrial fibrillation with RVR (Sen Mckinney - Lab Data Lab Results 11/24/20 11/24/20 11/24/20 Range/Units 21:50 21:50 21:50 WBC 6.6 (3.8-10.6) k/uL RBC 3.95 (3.80-5.40) m/uL Hgb 12.0 D (11.4-16.0) gm/dL Hct 36.5 (34.0-46.0) % MCV 92.2 (80.0-100.0) fL MCH 30.3 (25.0-35.0) pg MCHC 32.8 (31.0-37.0) g/dL RDW 15.7 H (11.5-15.5) % Plt Count 528 H (150-450) k/uL MPV 8.2 Neutrophils % 64 % Lymphocytes % 25 % Monocytes % 7 % Eosinophils % 0 % Basophils % 1 % Neutrophils # 4.2 (1.3-7.7) k/uL Lymphocytes # 1.7 (1.0-4.8) k/uL Monocytes # 0.4 (0-1.0) k/uL Eosinophils # 0.0 (0-0.7) k/uL Basophils # 0.1 (0-0.2) k/uL PT 13.0 H (9.0-12.0) sec INR 1.3 H (<1.2) APTT 24.1 (22.0-30.0) sec Sodium 134 L (137-145) mmol/L Potassium 2.8 L (3.5-5.1) mmol/L Chloride 98 (98-107) mmol/L Carbon Dioxide 25 (22-30) mmol/L Anion Gap 11 mmol/L BUN 6 L (7-17) mg/dL Creatinine 0.54 (0.52-1.04) mg/dL Est GFR (CKD-EPI)AfAm >90 (>60 ml/min/1.73 sqM) Est GFR (CKD-EPI)NonAf >90 (>60 ml/min/1.73 sqM) Glucose 128 H (74-99) mg/dL Lactic Ac Sepsis Rflx Plasma Lactic Acid Anthony (0.7-2.0) mmol/L Calcium 8.7 (8.4-10.2) mg/dL Total Bilirubin 0.9 (0.2-1.3) mg/dL AST 46 H (14-36) U/L ALT 15 (4-34) U/L Alkaline Phosphatase 207 H (38-126) U/L Troponin I (0.000-0.034) ng/mL Total Protein 6.6 (6.3-8.2) g/dL Albumin 3.1 L (3.5-5.0) g/dL Amylase <30 L (30-110) U/L Lipase 38 (23-300) U/L 11/24/20 11/24/20 11/24/20 Range/Units 21:50 21:50 22:23 WBC (3.8-10.6) k/uL RBC (3.80-5.40) m/uL Hgb (11.4-16.0) gm/dL Hct (34.0-46.0) % MCV (80.0-100.0) fL MCH (25.0-35.0) pg MCHC (31.0-37.0) g/dL RDW (11.5-15.5) % Plt Count (150-450) k/uL MPV Neutrophils % % Lymphocytes % % Monocytes % % Eosinophils % % Basophils % % Neutrophils # (1.3-7.7) k/uL Lymphocytes # (1.0-4.8) k/uL Monocytes # (0-1.0) k/uL Eosinophils # (0-0.7) k/uL Basophils # (0-0.2) k/uL PT (9.0-12.0) sec INR (<1.2) APTT (22.0-30.0) sec Sodium (137-145) mmol/L Potassium (3.5-5.1) mmol/L Chloride (98-107) mmol/L Carbon Dioxide (22-30) mmol/L Anion Gap mmol/L BUN (7-17) mg/dL Creatinine (0.52-1.04) mg/dL Est GFR (CKD-EPI)AfAm (>60 ml/min/1.73 sqM) Est GFR (CKD-EPI)NonAf (>60 ml/min/1.73 sqM) Glucose (74-99) mg/dL Lactic Ac Sepsis Rflx Y Plasma Lactic Acid Anthony 2.3 H* (0.7-2.0) mmol/L Calcium (8.4-10.2) mg/dL Total Bilirubin (0.2-1.3) mg/dL AST (14-36) U/L ALT (4-34) U/L Alkaline Phosphatase (38-126) U/L Troponin I 0.019 (0.000-0.034) ng/mL Total Protein (6.3-8.2) g/dL Albumin (3.5-5.0) g/dL Amylase (30-110) U/L Lipase (23-300) U/L Critical Care Time Critical Care Time: Yes Total Critical Care Time: 31 <Sen Mckinney - Last Filed: 11/25/20 01:33> Disposition <Xin Antony - Last Filed: 11/24/20 23:12> Is patient prescribed a controlled substance at d/c from ED?: No <Sen Mckinney - Last Filed: 11/25/20 01:33> Clinical Impression: Hypokalemia, H/O gastric bypass, Abdominal pain, New onset atrial fibrillation, Atrial fibrillation with RVR Disposition: ADMITTED IP TO THIS HOSP Condition: Fair Referrals: Joey Valdez MD [Primary Care Provider] - 1-2 days
[2020-11-24] MEDS ORDERED: QUEtiapine 25 MG TAB PO STA (23:41)
[2020-11-25] MEDS ORDERED: METOPROLOL TARTRATE 5 MG/5 ML VIAL IVP STA (00:27)
[2020-11-25] MEDS ORDERED: ONDANSETRON 4 MG/2 ML VIAL IVP PRN (00:27)
[2020-11-25] MEDS ORDERED: PANTOPRAZOLE 40 MG/10 ML VIAL IVP STA (00:27)
--- NOTE | 2020-11-25 00:36 | CT ---
EXAMINATION TYPE: CT abdomen pelvis w con DATE OF EXAM: 11/24/2020 COMPARISON: None HISTORY: bowel resection x4 months ago. abd pain with n&V CT DLP: 1079.1 mGycm Automated exposure control for dose reduction was used. CONTRAST: Performed with IV Contrast, patient injected with 100 mL of Isovue 300. The lung bases are clear of consolidation. Heart size is normal. There is no pericardial effusion. Th ere is no pleural effusion. There is previous gastric surgery. There are clips from cholecystectomy. There is some fatty infiltration of the liver. Spleen is intact. There is no evidence of pancreatic m ass. The bile ducts are not dilated. There is no adrenal mass. Kidneys show satisfactory contrast opacification. There is no hydronephrosi s. Ureters are not dilated. Delayed images show normal renal excretion. There is some fat stranding i n the subcutaneous fat over the anterior abdomen from abdominal surgery. There is no evidence of free air. There is interposition of the hepatic flexure of the colon which is a normal variant. There is no retroperitoneal adenopathy. Appendix is not seen. There is no sign of thickened appendix. Bladder distends smoothly. There is no inguinal hernia. There is a first-degree L 4-5 degenerative spondylolisthesis. There is thoracolumbar dextroscoliosis. There is mild subluxation of L3 to the right of L4. There is similar change at L2-3. There is spinal stenosis at L3-4 and L4-5 due to facet arthropathy and subluxation deformities. I see no pelvic mass. There are surgical clips at the rectum. There is no free fluid in the pelvis. There is no evidence of a bowel obstruction. Th ere is no free air. I see no mesenteric edema. IMPRESSION: There are some postsurgical changes. Previous gastric surgery. Previous rectal surgery and small nolan l surgery in the left mid abdomen. There is improvement in the fat stranding over the subcutaneous fa t in the lower anterior abdomen compared to old exam. Atherosclerotic vascular disease. No evidence o f a bowel obstruction. Mild fatty infiltration of the liver.
[2020-11-25] MEDS ORDERED: ASPIRIN 81 MG PO STA (01:20)
[2020-11-25] MEDS ORDERED: NITROGLYCERIN SL TABS 0.4 MG TAB SUBLINGUAL PRN (01:20)
[2020-11-25] MEDS: POTASSIUM CHLORIDE 10 MEQ in WATER FOR INJECTION 1 100ML.BAG IVPB SCH ×6 (02:09→08:10)
[2020-11-25 02:13] LABS: Magnesium 1.5 mg/dL (1.6-2.3)
[2020-11-25] MEDS: MORPHINE SULFATE 4 MG/ML SYRINGE IVP PRN ×5 (03:34→20:51)
[2020-11-25] MEDS ORDERED: HEPARIN SODIUM 1,000 UN/ML (10ML VL) IV PRN (04:34)
[2020-11-25] MEDS ORDERED: HEPARIN SODIUM 1,000 UN/ML (10ML VL) IV ONE (04:34)
[2020-11-25] MEDS: HEPARIN SOD,PORK IN 0.45% NACL 25,000 UNIT in 0.45% NACL 1 250ML.BAG IV SCH (05:22)
[2020-11-25] MEDS: METOPROLOL TARTRATE 25 MG TAB PO SCH ×2 (09:03→20:51)
[2020-11-25] MEDS: PANTOPRAZOLE 40 MG/10 ML VIAL IVP SCH (09:04)
[2020-11-25 11:37] LABS: INR 1.4 (<1.2); Partial Thromboplastin Time 88.3 sec (22.0-30.0); Prothrombin Time 14.5 sec (9.0-12.0)
--- NOTE | 2020-11-25 11:46 | P.GSCN ---
History of Present Illness Consult date: 11/25/20 Reason for Consult: Abdominal pain History of present illness: Is a 75-year-old female with previous history of reversal colostomy. Patient wa s admitted hospital course abdominal pain. She states she feels better if receiving IV hydration and pain meds. She's having bowel movements and she's had some diarrhea. 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 History of Any Multi-Drug Resistant Organisms: MRSA Year Discovered:: 1997 MDRO Source:: left shoulder Past Surgical History: Bariatric Surgery, Bowel Resection, Cholecystectomy, Heart Catheterization, Heart Catheterization With Stent, Hysterectomy, Joint Replacement, Orthopedic Surgery Additional Past Surgical History / Comment(s): Bilateral knee replacement, left shoulder rotator cuff surgery, gastric bypass, D&C, EGD/colonoscopy, laryngeal tumor removed 30 radiation treatments about 20 years ago, Ganglion Cysts both wr ists.PAIN CLINIC INJECTIONS, colostomy 06/26, Past Anesthesia/Blood Transfusion Reactions: No Reported Reaction Date of Last Stent Placement:: 2003 Past Psychological History: Anxiety, Depression, Panic Disorder Smoking Status: Former smoker Past Alcohol Use History: None Reported Past Drug Use History: None Reported - Past Family History Mother Family Medical History: Cancer, Congestive Heart Failure (CHF), Diabetes Mellitus, Hypertension Additional Family Medical History / Comment(s): Mother passed at 93. Father Family Medical History: Myocardial Infarction ([place]) Additional Family Medical History / Comment(s): Father of a [place] at the age of 39 yrs. Sister(s) Family Medical History: Cancer Brother(s) Family Medical History: Cancer, Myocardial Infarction (CT) Medications and Allergies Home Medications Medication Instructions Recorded Confirmed Type RX: Levothyroxine Sodium 200 mcg PO DAILY 01/12/19 11/25/20 History [Synthroid] RX: Ondansetron Odt [Zofran ODT] 4 mg PO Q8HR PRN #10 tab 09/23/20 11/25/20 Rx RX: Pantoprazole [Protonix] 40 mg PO DAILY 30 Days #30 tab 09/26/20 11/25/20 Rx RX: QUEtiapine FUMARATE [SEROquel] 25 mg PO HS 30 Days #30 tab 09/26/20 11/25/20 Rx RX: Furosemide [Lasix] 20 mg PO DAILY 10/20/20 11/25/20 History LORazepam [Ativan] 0.25 mg PO BID PRN 11/25/20 11/25/20 History Allergies Allergy/AdvReac Type Severity Reaction Status Date / Time latex Allergy Unknown Verified 11/25/20 06:48 vancomycin Allergy Rash/Hives Verified 11/25/20 06:48 Surgical - Exam Vital Signs Temp Pulse Resp BP Pulse Ox 97.9 F 60 26 H 146/82 99 11/24/20 21:27 11/24/20 21:27 11/24/20 21:27 11/24/20 21:27 11/24/20 21:27 - General well developed, well nourished, no distress - Eyes PERRL - ENT normal pinna - Neck no masses - Respiratory normal expansion - Cardiovascular Rhythm: regular - Abdomen Abdomen: soft, non tender Results - Labs 11/24/20 21:50 11/24/20 21:50 Abnormal Lab Results - Last 24 Hours (Table) 11/24/20 11/24/20 11/24/20 Range/Units 21:50 21:50 21:50 RDW 15.7 H (11.5-15.5) % Plt Count 528 H (150-450) k/uL PT 13.0 H (9.0-12.0) sec INR 1.3 H (<1.2) APTT (22.0-30.0) sec Sodium 134 L (137-145) mmol/L Potassium 2.8 L (3.5-5.1) mmol/L BUN 6 L (7-17) mg/dL Glucose 128 H (74-99) mg/dL Plasma Lactic Acid Anthony (0.7-2.0) mmol/L Magnesium (1.6-2.3) mg/dL AST 46 H (14-36) U/L Alkaline Phosphatase 207 H (38-126) U/L Troponin I (0.000-0.034) ng/mL Albumin 3.1 L (3.5-5.0) g/dL Amylase <30 L (30-110) U/L TSH (0.465-4.680) mIU/L Free T4 (0.78-2.19) ng/dL 11/24/20 11/24/20 11/25/20 Range/Units 21:50 21:50 01:54 RDW (11.5-15.5) % Plt Count (150-450) k/uL PT (9.0-12.0) sec INR (<1.2) APTT (22.0-30.0) sec Sodium (137-145) mmol/L Potassium (3.5-5.1) mmol/L BUN (7-17) mg/dL Glucose (74-99) mg/dL Plasma Lactic Acid Anthony 2.3 H* (0.7-2.0) mmol/L Magnesium 1.5 L (1.6-2.3) mg/dL AST (14-36) U/L Alkaline Phosphatase (38-126) U/L Troponin I 0.055 H* (0.000-0.034) ng/mL Albumin (3.5-5.0) g/dL Amylase (30-110) U/L TSH <0.015 L (0.465-4.680) mIU/L Free T4 4.30 H (0.78-2.19) ng/dL 11/25/20 11/25/20 Range/Units 04:48 11:06 RDW (11.5-15.5) % Plt Count (150-450) k/uL PT 14.5 H (9.0-12.0) sec INR 1.4 H (<1.2) APTT 88.3 H (22.0-30.0) sec Sodium (137-145) mmol/L Potassium (3.5-5.1) mmol/L BUN (7-17) mg/dL Glucose (74-99) mg/dL Plasma Lactic Acid Anthony (0.7-2.0) mmol/L Magnesium (1.6-2.3) mg/dL AST (14-36) U/L Alkaline Phosphatase (38-126) U/L Troponin I 0.094 H* (0.000-0.034) ng/mL Albumin (3.5-5.0) g/dL Amylase (30-110) U/L TSH (0.465-4.680) mIU/L Free T4 (0.78-2.19) ng/dL Diabetes panel 11/24/20 Range/Units 21:50 Sodium 134 L (137-145) mmol/L Potassium 2.8 L (3.5-5.1) mmol/L Chloride 98 (98-107) mmol/L Carbon Dioxide 25 (22-30) mmol/L BUN 6 L (7-17) mg/dL Creatinine 0.54 (0.52-1.04) mg/dL Glucose 128 H (74-99) mg/dL Calcium 8.7 (8.4-10.2) mg/dL AST 46 H (14-36) U/L ALT 15 (4-34) U/L Alkaline Phosphatase 207 H (38-126) U/L Total Protein 6.6 (6.3-8.2) g/dL Albumin 3.1 L (3.5-5.0) g/dL Thyroid panel 11/24/20 Range/Units 21:50 TSH <0.015 L (0.465-4.680) mIU/L Calcium panel 11/24/20 Range/Units 21:50 Calcium 8.7 (8.4-10.2) mg/dL Albumin 3.1 L (3.5-5.0) g/dL Pituitary panel 11/24/20 11/24/20 Range/Units 21:50 21:50 Sodium 134 L (137-145) mmol/L Potassium 2.8 L (3.5-5.1) mmol/L Chloride 98 (98-107) mmol/L Carbon Dioxide 25 (22-30) mmol/L BUN 6 L (7-17) mg/dL Creatinine 0.54 (0.52-1.04) mg/dL Glucose 128 H (74-99) mg/dL Calcium 8.7 (8.4-10.2) mg/dL TSH <0.015 L (0.465-4.680) mIU/L Adrenal panel 11/24/20 Range/Units 21:50 Sodium 134 L (137-145) mmol/L Potassium 2.8 L (3.5-5.1) mmol/L Chloride 98 (98-107) mmol/L Carbon Dioxide 25 (22-30) mmol/L BUN 6 L (7-17) mg/dL Creatinine 0.54 (0.52-1.04) mg/dL Glucose 128 H (74-99) mg/dL Calcium 8.7 (8.4-10.2) mg/dL Total Bilirubin 0.9 (0.2-1.3) mg/dL AST 46 H (14-36) U/L ALT 15 (4-34) U/L Alkaline Phosphatase 207 H (38-126) U/L Total Protein 6.6 (6.3-8.2) g/dL Albumin 3.1 L (3.5-5.0) g/dL Assessment and Plan Assessment: Resolving abdominal pain. Patient will be observed. No surgical intervention is planned.
--- NOTE | 2020-11-25 13:03 | P.CRDCN ---
History of Present Illness History of present illness: HISTORY OF PRESENT ILLNESS: This is a 74-year-old female with a past medical history significant for hypertension, hypothyroidism, hyperlipidemia, and non-ischemic cardiomyopathy. History of diverticulitis with mesenteric abscess and revision was not partial small bowel obstruction in this patient who status post sigmoid colectomy and end colostomy and lysis of condition completed on 07/10/2020. Recently on 10/26/20 underwent reversal colostomy with Dr. Burt. Patient used to follow in the office with Dr. Marty Caruso in 2012. We have been asked to see the patient in cons ultation new onset atrial fibrillation. Patient presents emergency department with worsening abdominal pain, nausea, vomiting that started yesterday morning around 10 AM. Patient states after surgery she was doing well until yesterday when her symptoms started. She does endorse palpitations. Denies chest pain, shortness of breath, lightheadedness, dizziness. On admission, second EKG patient appears to be in atrial fibrillation HR 140s. Patient was given IV Lopressor 5 mg, and started on a heparin drip. Patient was also started on metoprolol titrate 25 mg twice a day. She converted to sinus mechanism. She was also hypokalemic and was given replacement potassium. CT abdomen and pelvis re vealed postsurgical changes, previous gastric surgery, previous rectal surgery. Improvement in the fat stranding over the subcutaneous fat in the lower anterior abdomen compared to old exam. No evidence of obstruction. Mild fatty infiltration of the liver. Laboratory data: WBC 6.6, hemoglobin 12, platelets 528, sodium 134, potassium 2.8, BUN 6, serum creatinine 0.5, lactate 2.3, repeat 1.2, magnesium 1.5, AST 46, ALT 15, alkaline phosphatase 207, albumin 3.1, TSH low, free T4 4.3. Current home cardiac medications include Lasix 20 mg daily. Patient's repeat EKG was sinus rhythm with PACs, heart rate 96, T wave inversions in lead V2, V3 which is not new from EKG in 07/2020. In April 2020 patient's Echocardiogram revealed ejection fraction 30-35%, trace mitral regurgitation and mild tricuspid regurgitation. Patient underwent cardiac catheterization with Dr. Gramajo secondary to new cardiomyopathy which revealed diffuse mild CAD. Mildly reduced EF 45%, mild apical hypokinesis, que stionable recovering Takotsubo's cardiomyopathy. REVIEW OF SYSTEMS: At the time of my exam: CONSTITUTIONAL: Denies fever or chills. HEENT: Denies blurred vision, vision changes, or eye pain. Denies hemoptysis CARDIOVASCULAR: Denies chest pain, orthopnea, PND or palpitations RESPIRATORY: No shortness of breath. GASTROINTESTINAL: +abdominal pain, +nausea and +vomiting. HEMATOLOGIC: Denies bleeding disorders. GENITOURINARY: Denies any blood in urine. SKIN: Denies pruitis. Denies rash. PHYSICAL EXAM: VITAL SIGNS: Reviewed. GENERAL: Well-developed in no acute distress. HEENT: Head is normocephalic. Pupils are equal, round. Sclerae anicteric. Mucous membranes of the mouth are moist. Neck supple. No JVD or thyromegaly LUNGS: Respirations even and unlabored. Lungs essentially clear to auscultation bilaterally. HEART: Regular rate and rhythm. S1 and S2 heard. Systolic murmur noted ABDOMEN: Soft. Nondistended. Nontender. EXTREMITIES: Normal range of motion. No clubbing or cyanosis. Peripheral pulses intact. No lower extremity edema NEUROLOGIC: Awake and alert. Oriented x 3. ASSESSMENT: Abdominal pain, nausea and vomiting New Onset paroxysmal atrial fibrillation, now in sinus mechanism Elevated troponin, not indicative of acute coronary syndrome Non obstructive CAD Cardiomyopathy, EF 30-35%, unclear if ischemic or nonischemic Hypertension Hyperlipidemia Hypokalemia Hypomagnesemia PLAN: Recheck BMP and Mag today Continue metoprolol 25mg BID, monitor on telemetry patient was bradycardic in the past with beta blockers Obtain 2D echocardiogram Continue aspirin Continue IV heparin drip, will wait surgery recommendations in regards to anticoagulation Further recommendations based on clinical course Nurse practitioner note has been reviewed by physician. Signing provider agrees with the documented findings, assessment, and plan of care. 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 History of Any Multi-Drug Resistant Organisms: MRSA Date of last positivie culture/infection: 1997 MDRO Source:: left shoulder Past Surgical History: Bariatric Surgery, Bowel Resection, Cholecystectomy, Heart Catheterization, Heart Catheterization With Stent, Hysterectomy, Joint Replacement, Orthopedic Surgery Additional Past Surgical History / Comment(s): Bilateral knee replacement, left shoulder rotator cuff surgery, gastric bypass, D&C, EGD/colonoscopy, laryngeal tumor removed 30 radiation treatments about 20 years ago, Ganglion Cysts both wrists.PAIN CLINIC INJECTIONS, colostomy 06/26, Past Anesthesia/Blood Transfusion Reactions: No Reported Reaction Date of Last Stent Placement:: 2003 Past Psychological History: Anxiety, Depression, Panic Disorder Smoking Status: Former smoker Past Alcohol Use History: None Reported Past Drug Use History: None Reported - Past Family History Mother Family Medical History: Cancer, Congestive Heart Failure (CHF), Diabetes Mellitus, Hypertension Additional Family Medical History / Comment(s): Mother passed at 93. Father Family Medical History: Myocardial Infarction (MA) Additional Family Medical History / Comment(s): Father of a MA at the age of 39 yrs. Sister(s) Family Medical History: Cancer Brother(s) Family Medical History: Cancer, Myocardial Infarction (MA) Medications and Allergies Home Medications Medication Instructions Recorded Confirmed Type Levothyroxine Sodium [Synthroid] 200 mcg PO DAILY 01/12/19 11/25/20 History Ondansetron Odt [Zofran ODT] 4 mg PO Q8HR PRN #10 tab 09/23/20 11/25/20 Rx Pantoprazole [Protonix] 40 mg PO DAILY 30 Days #30 tab 09/26/20 11/25/20 Rx QUEtiapine FUMARATE [SEROquel] 25 mg PO HS 30 Days #30 tab 09/26/20 11/25/20 Rx Furosemide [Lasix] 20 mg PO DAILY 10/20/20 11/25/20 History LORazepam [Ativan] 0.25 mg PO BID PRN 11/25/20 11/25/20 History Allergies Allergy/AdvReac Type Severity Reaction Status Date / Time latex Allergy Unknown Verified 11/25/20 06:48 vancomycin Allergy Rash/Hives Verified 11/25/20 06:48 Physical Exam Vitals: Vital Signs Temp Pulse Resp BP Pulse Ox 11/25/20 06:00 102 H 18 133/85 93 L 11/25/20 05:00 102 H 18 137/88 93 L 11/25/20 04:00 105 H 18 160/76 95 11/25/20 03:44 98.5 F 103 H 18 177/89 98 11/25/20 01:01 92 11/24/20 23:51 109 H 16 147/73 97 11/24/20 22:26 114 H 18 133/78 98 11/24/20 21:27 97.9 F 60 26 H 146/82 99 Intake and Output 11/24/20 11/25/20 11/25/20 22:59 06:59 14:59 Other: Weight 81.647 kg Results 11/24/20 21:50 11/24/20 21:50 Cardiac Enzymes 11/24/20 11/24/20 11/25/20 Range/Units 21:50 21:50 01:54 AST 46 H (14-36) U/L Troponin I 0.019 0.055 H* (0.000-0.034) ng/mL 11/25/20 Range/Units 04:48 AST (14-36) U/L Troponin I 0.094 H* (0.000-0.034) ng/mL Coagulation 11/24/20 Range/Units 21:50 PT 13.0 H (9.0-12.0) sec APTT 24.1 (22.0-30.0) sec CBC 11/24/20 Range/Units 21:50 WBC 6.6 (3.8-10.6) k/uL RBC 3.95 (3.80-5.40) m/uL Hgb 12.0 D (11.4-16.0) gm/dL Hct 36.5 (34.0-46.0) % Plt Count 528 H (150-450) k/uL Comprehensive Metabolic Panel 11/24/20 Range/Units 21:50 Sodium 134 L (137-145) mmol/L Potassium 2.8 L (3.5-5.1) mmol/L Chloride 98 (98-107) mmol/L Carbon Dioxide 25 (22-30) mmol/L BUN 6 L (7-17) mg/dL Creatinine 0.54 (0.52-1.04) mg/dL Glucose 128 H (74-99) mg/dL Calcium 8.7 (8.4-10.2) mg/dL AST 46 H (14-36) U/L ALT 15 (4-34) U/L Alkaline Phosphatase 207 H (38-126) U/L Total Protein 6.6 (6.3-8.2) g/dL Albumin 3.1 L (3.5-5.0) g/dL Current Medications Generic Name Dose Route Start Last Admin Trade Name Freq PRN Reason Stop Dose Admin Aspirin 325 mg 11/26/20 09:00 Aspirin 325 Mg Tab PO DAILY ALFREDO Heparin Sodium (Porcine) 0 unit 11/25/20 04:34 Heparin Sodium 1,000 Un/Ml (10ml Vl) IV PER PROTOCOL PRN Low PTT Protocol Heparin Sodium/Sodium Chloride 250 mls @ 9.798 mls/hr 11/25/20 04:45 11/25/20 05:22 25,000 unit/ Sodium Chloride IV 12 units/kg/hr .Q24H ALFREDO 9.798 mls/hr Administration Protocol 12 UNITS/KG/HR Metoprolol Tartrate 25 mg 11/25/20 09:00 Metoprolol Tartrate 25 Mg Tab PO BID [facility] Morphine Sulfate 4 mg 11/25/20 00:27 11/25/20 03:34 Morphine Sulfate 4 Mg/Ml Syringe IVP 4 mg Q4HR PRN Administration Pain Nitroglycerin 0.4 mg 11/25/20 01:20 Nitroglycerin Sl Tabs 0.4 Mg Tab SUBLINGUAL Q5M PRN Chest Pain Ondansetron HCl 4 mg 11/25/20 00:27 Ondansetron 4 Mg/2 Ml Vial IVP Q6HR PRN Nausea And Vomiting Pantoprazole Sodium 40 mg 11/25/20 09:00 Pantoprazole 40 Mg/10 Ml Vial IVP DAILY [facility] Intake and Output 11/24/20 11/25/20 11/25/20 22:59 06:59 14:59 Other: Weight 81.647 kg 11/24/20 21:50 11/24/20 21:50
[2020-11-25 13:53] LABS: ALT 11 U/L (4-34); AST 33 U/L (14-36); African American GFR (CKD) >90 (>60 ml/min/1.73 sqM); Albumin/Globulin Ratio 0.7; Alkaline Phosphatase 124 U/L (38-126); Anion Gap 5 mmol/L; Blood Urea Nitrogen 5 mg/dL (7-17); Calcium 7.5 mg/dL (8.4-10.2); Carbon Dioxide 26 mmol/L (22-30); Chloride 104 mmol/L (98-107); Globulin 2.9 g/dL; Glucose 91 mg/dL (74-99); Magnesium 1.4 mg/dL (1.6-2.3); Non-African American GFR(CKD) >90 (>60 ml/min/1.73 sqM); Sodium 135 mmol/L (137-145); Total Bilirubin 0.6 mg/dL (0.2-1.3); Total Protein 4.9 g/dL (6.3-8.2)
--- NOTE | 2020-11-25 19:12 | P.HPIM ---
History of Present Illness H&P Date: 11/25/20 74-year-old female with a past medical history significant for hypertension, hypothyroidism, hyperlipidemia, and non-ischemic cardiomyopathy. History of diverticulitis with mesenteric abscess and revision was not partial small bowel obstruction in this patient who status post sigmoid colectomy and end colostomy and lysis of condition completed on 07/10/2020. Recently on 10/26/20 underwent reversal colostomy with Dr. Burt. Patient was found to be in new onset atrial fibrillation. Patient presents emergency department with worsening abdominal pain, nausea, vomiting that started yesterday morning around 10 AM. Patient states after surgery she was doing well until yesterday when her symptom s started. She does endorse palpitations. Denies chest pain, shortness of breath, lightheadedness, dizziness. On admission, second EKG patient appears to be in atrial fibrillation HR 140s. Patient was given IV Lopressor 5 mg, and started on a heparin drip. Patient was also started on metoprolol titrate 25 mg twice a day. She converted to sinus mechanism. She was also hypokalemic and was given replacement potassium. CT abdomen and pelvis revealed postsurgical changes, previous gastric surgery, previous rectal surgery. Improvement in the fat stranding over the subcutaneous fat in the lower anterior abdomen compared to old exam. No evidence of obstruction. Mild fatty infiltration of the liver. Laboratory data: WBC 6.6, hemoglobin 12, platelets 528, sodium 134, potassium 2.8, BUN 6, serum creatinine 0.5, lactate 2.3, repeat 1.2, magnesium 1.5, AST 46, ALT 15, alkaline phosphatase 207, albumin 3.1, TSH low, free T4 4.3. Current home cardiac medications include Lasix 20 mg daily. Patient's repeat EKG was sinus rhythm with PACs, heart rate 96, T wave inversions in lead V2, V3 which is not new from EKG in 07/2020. Review of Systems REVIEW OF SYSTEMS: CONSTITUTIONAL: No fever, no malaise, no fatigue. HEENT: No recent visual problems or hearing problems. Denied any sore throat. CARDIOVASCULAR: No chest pain, orthopnea, PND, no palpitations, no syncope. PULMONARY: No shortness of breath, no cough, no hemoptysis. GASTROINTESTINAL: No diarrhea, no nausea, no vomiting, no abdominal pain. NEUROLOGICAL: No headaches, no weakness, no numbness. HEMATOLOGICAL: Denies any bleeding or petechiae. GENITOURINARY: Denies any burning micturition, frequency, or urgency. MUSCULOSKELETAL/RHEUMATOLOGICAL: Denies any joint pain, swelling, or any muscle pain. ENDOCRINE: Denies any polyuria or polydipsia. The rest of the 14-point review of systems is negative. 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 History of Any Multi-Drug Resistant Organisms: MRSA Date of last positivie culture/infection: 1997 MDRO Source:: left shoulder Past Surgical History: Bariatric Surgery, Bowel Resection, Cholecystectomy, Heart Catheterization, Heart Catheterization With Stent, Hysterectomy, Joint Replacement, Orthopedic Surgery Additional Past Surgical History / Comment(s): Bilateral knee replacement, left shoulder rotator cuff surgery, gastric bypass, D&C, EGD/colonoscopy, laryngeal tumor removed 30 radiation treatments about 20 years ago, Ganglion Cysts both wrists.PAIN CLINIC INJECTIONS, colostomy 06/26, Past Anesthesia/Blood Transfusion Reactions: No Reported Reaction Date of Last Stent Placement:: 2003 Past Psychological History: Anxiety, Depression, Panic Disorder Smoking Status: Former smoker Past Alcohol Use History: None Reported Past Drug Use History: None Reported - Past Family History Mother Family Medical History: Cancer, Congestive Heart Failure (CHF), Diabetes Mellitus, Hypertension Additional Family Medical History / Comment(s): Mother passed at 93. Father Family Medical History: Myocardial Infarction (NM) Additional Family Medical History / Comment(s): Father of a NM at the age of 39 yrs. Sister(s) Family Medical History: Cancer Brother(s) Family Medical History: Cancer, Myocardial Infarction (NM) Medications and Allergies Home Medications Medication Instructions Recorded Confirmed Type Levothyroxine Sodium [Synthroid] 200 mcg PO DAILY 01/12/19 11/25/20 History Ondansetron Odt [Zofran ODT] 4 mg PO Q8HR PRN #10 tab 09/23/20 11/25/20 Rx Pantoprazole [Protonix] 40 mg PO DAILY 30 Days #30 tab 09/26/20 11/25/20 Rx QUEtiapine FUMARATE [SEROquel] 25 mg PO HS 30 Days #30 tab 09/26/20 11/25/20 Rx Furosemide [Lasix] 20 mg PO DAILY 10/20/20 11/25/20 History LORazepam [Ativan] 0.25 mg PO BID PRN 11/25/20 11/25/20 History Allergies Allergy/AdvReac Type Severity Reaction Status Date / Time latex Allergy Unknown Verified 11/25/20 06:48 vancomycin Allergy Rash/Hives Verified 11/25/20 06:48 Physical Exam Vitals: Vital Signs Temp Pulse Resp BP Pulse Ox 11/25/20 11:38 82 20 128/62 97 11/25/20 10:29 79 18 144/78 99 11/25/20 07:40 98.5 F 101 H 20 155/90 96 11/25/20 06:00 102 H 18 133/85 93 L 11/25/20 05:00 102 H 18 137/88 93 L 11/25/20 04:00 105 H 18 160/76 95 11/25/20 03:44 98.5 F 103 H 18 177/89 98 11/25/20 01:01 92 11/24/20 23:51 109 H 16 147/73 97 11/24/20 22:26 114 H 18 133/78 98 11/24/20 21:27 97.9 F 60 26 H 146/82 99 Intake and Output 11/24/20 11/25/20 11/25/20 22:59 06:59 14:59 Other: Weight 81.647 kg VITAL SIGNS: Reviewed. GENERAL: Well-developed in no acute distress. HEENT: Head is normocephalic. Pupils are equal, round. Sclerae anicteric. Mucous membranes of the mouth are moist. Neck supple. No JVD or thyromegaly LUNGS: Respirations even and unlabored. Lungs essentially clear to auscultation bilaterally. HEART: Regular rate and rhythm. S1 and S2 heard. Systolic murmur noted ABDOMEN: Soft. Nondistended. Nontender. EXTREMITIES: Normal range of motion. No clubbing or cyanosis. Peripheral pulses intact. No lower extremity edema NEUROLOGIC: Awake and alert. Oriented x 3. Results CBC & Chem 7: 11/24/20 21:50 11/25/20 11:06 Labs: Abnormal Lab Results - Last 24 Hours (Table) 11/24/20 11/24/20 11/24/20 Range/Units 21:50 21:50 21:50 RDW 15.7 H (11.5-15.5) % Plt Count 528 H (150-450) k/uL PT 13.0 H (9.0-12.0) sec INR 1.3 H (<1.2) APTT (22.0-30.0) sec Sodium 134 L (137-145) mmol/L Potassium 2.8 L (3.5-5.1) mmol/L BUN 6 L (7-17) mg/dL Glucose 128 H (74-99) mg/dL Plasma Lactic Acid Anthony (0.7-2.0) mmol/L Magnesium (1.6-2.3) mg/dL AST 46 H (14-36) U/L Alkaline Phosphatase 207 H (38-126) U/L Troponin I (0.000-0.034) ng/mL Albumin 3.1 L (3.5-5.0) g/dL Amylase <30 L (30-110) U/L TSH (0.465-4.680) mIU/L Free T4 (0.78-2.19) ng/dL 11/24/20 11/24/20 11/25/20 Range/Units 21:50 21:50 01:54 RDW (11.5-15.5) % Plt Count (150-450) k/uL PT (9.0-12.0) sec INR (<1.2) APTT (22.0-30.0) sec Sodium (137-145) mmol/L Potassium (3.5-5.1) mmol/L BUN (7-17) mg/dL Glucose (74-99) mg/dL Plasma Lactic Acid Anthony 2.3 H* (0.7-2.0) mmol/L Magnesium 1.5 L (1.6-2.3) mg/dL AST (14-36) U/L Alkaline Phosphatase (38-126) U/L Troponin I 0.055 H* (0.000-0.034) ng/mL Albumin (3.5-5.0) g/dL Amylase (30-110) U/L TSH <0.015 L (0.465-4.680) mIU/L Free T4 4.30 H (0.78-2.19) ng/dL 11/25/20 11/25/20 Range/Units 04:48 11:06 RDW (11.5-15.5) % Plt Count (150-450) k/uL PT 14.5 H (9.0-12.0) sec INR 1.4 H (<1.2) APTT 88.3 H (22.0-30.0) sec Sodium (137-145) mmol/L Potassium (3.5-5.1) mmol/L BUN (7-17) mg/dL Glucose (74-99) mg/dL Plasma Lactic Acid Anthony (0.7-2.0) mmol/L Magnesium (1.6-2.3) mg/dL AST (14-36) U/L Alkaline Phosphatase (38-126) U/L Troponin I 0.094 H* (0.000-0.034) ng/mL Albumin (3.5-5.0) g/dL Amylase (30-110) U/L TSH (0.465-4.680) mIU/L Free T4 (0.78-2.19) ng/dL Assessment and Plan Assessment: 1. Abdominal pain/nausea/vomiting - History of diverticulitis with mesenteric abscess and revision was not partial small bowel obstruction in this patient who status post sigmoid colectomy and end colostomy and lysis of condition completed on 07/10/2020. Recently on 10/26/20 underwent reversal colostomy with Dr. Burt. - Consult surgery 2. New onset atrial fibrillation - Patient has been placed on IV heparin in ED; converted spontaneously to sinus rhythm; we will monitor on telemetry and continue with IV anticoagulation and await further recommendations from cardiology 3. Elevated troponin; rule out acute coronary syndrome - Patient does have history of nonobstructive CAD with cardiomyopathy, EF 35%; continue with aspirin, beta blockers, statin therapy - Consult cardiology for further recommendations 4. Hypertension; metoprolol 25 mg twice a day 5. Hyperlipidemia; currently not on statin therapy 6. Hypothyroidism; levothyroxin 200 MCG daily 7. Electrolyte imbalance; hypokalemia/hypomagnesemia; supplemented in ED; we will monitor electrolytes closely and continue to supplement DVT prophylaxis; SCDs/subcu heparin CODE STATUS; full code
[2020-11-25 22:36] LABS: Magnesium 1.5 mg/dL (1.6-2.3); Potassium 2.9 mmol/L (3.5-5.1)
[2020-11-25] MEDS ORDERED: Potassium Replacement Protocol 1 EACH MISC MISCELLANE PRN (22:51)
[2020-11-25] MEDS: MAGNESIUM SULFATE-D5W PMX 1 GM in DEXTROSE/WATER 1 100ML.BAG IVPB SCH (23:13)
[2020-11-26] MEDS: MAGNESIUM SULFATE-D5W PMX 1 GM in DEXTROSE/WATER 1 100ML.BAG IVPB SCH (00:22)
[2020-11-26] MEDS: MORPHINE SULFATE 4 MG/ML SYRINGE IVP PRN ×6 (00:59→22:21)
[2020-11-26] MEDS: POTASSIUM CHLORIDE ER 20 MEQ TAB.ER PO SCH ×3 (01:00→03:14)
[2020-11-26] MEDS: HEPARIN SOD,PORK IN 0.45% NACL 25,000 UNIT in 0.45% NACL 1 250ML.BAG IV SCH (03:16)
[2020-11-26] MEDS: METOPROLOL TARTRATE 25 MG TAB PO SCH ×2 (08:16→20:28)
[2020-11-26] MEDS: PANTOPRAZOLE 40 MG/10 ML VIAL IVP SCH (08:16)
[2020-11-26] MEDS: ASPIRIN 81 MG PO SCH (08:16)
[2020-11-26] MEDS ORDERED: ASPIRIN 325 MG TAB PO SCH (09:00)
--- NOTE | 2020-11-26 09:33 | P.PN ---
Subjective Progress Note Date: 11/26/20 Principal diagnosis: Abdominal pain 75-year-old female admitted for abdominal discomfort after previous colostomy reversal in October. Says she is still having discomfort. CAT scan per radiologist did not show any etiology for her abdominal complaints. Tolerating diet. Pain may be slightly better. Objective - Vital Signs Vital signs: Vital Signs Temp 97.9 F 11/26/20 08:00 Pulse 85 11/26/20 08:00 Resp 19 11/26/20 08:00 BP 122/57 11/26/20 08:00 Pulse Ox 98 11/26/20 08:48 Intake & Output 11/25/20 11/26/20 11/26/20 18:59 06:59 18:59 Intake Total 77.894 360.978 60 Balance 77.894 360.978 60 Weight 81.647 kg 78 kg Intake: Intake, IV Titration 77.894 120.978 Amount Heparin Sod,Pork in 0.45% 77.894 120.978 NaCl 25,000 unit In 0.45 % NaCl 1 250ml.bag @ 12 UNITS/KG/HR 9.798 mls/hr IV .Q24H [facility] Rx#: [id number] Oral 240 60 Other: Voiding Method Toilet Toilet # Voids 1 - Exam Abdomen: Soft, nondistended, mild midline tenderness, incision well-healed - Labs CBC & Chem 7: 11/24/20 21:50 11/25/20 22:02 Labs: Abnormal Lab Results - Last 24 Hours (Table) 11/25/20 11/25/20 11/25/20 Range/Units 11:06 11:06 22:02 PT 14.5 H (9.0-12.0) sec INR 1.4 H (<1.2) APTT 88.3 H 42.2 H (22.0-30.0) sec Sodium 135 L (137-145) mmol/L Potassium 3.0 L (3.5-5.1) mmol/L BUN 5 L (7-17) mg/dL Creatinine 0.51 L (0.52-1.04) mg/dL Calcium 7.5 L (8.4-10.2) mg/dL Magnesium 1.4 L (1.6-2.3) mg/dL Total Protein 4.9 L (6.3-8.2) g/dL Albumin 2.0 L (3.5-5.0) g/dL 11/25/20 Range/Units 22:02 PT (9.0-12.0) sec INR (<1.2) APTT (22.0-30.0) sec Sodium (137-145) mmol/L Potassium 2.9 L (3.5-5.1) mmol/L BUN (7-17) mg/dL Creatinine (0.52-1.04) mg/dL Calcium (8.4-10.2) mg/dL Magnesium 1.5 L (1.6-2.3) mg/dL Total Protein (6.3-8.2) g/dL Albumin (3.5-5.0) g/dL Assessment and Plan (1) Abdominal pain Narrative/Plan: Patient abdominal pain after previous colostomy reversal. No etiology identified on recent studies. Continue diet as tolerated. Will follow. Current Visit: Yes Status: Acute Code(s): R10.9 - UNSPECIFIED ABDOMINAL PAIN SNOMED Code(s): 34788520
[2020-11-26] MEDS ORDERED: LORazepam 0.5 MG TAB PO PRN (10:40)
[2020-11-26] MEDS: FUROSEMIDE 20 MG TAB PO SCH (11:38)
[2020-11-26] MEDS: LEVOTHYROXINE 100 MCG TAB PO SCH (11:38)
[2020-11-26 12:08] LABS: INR 1.3 (<1.2); Prothrombin Time 13.7 sec (9.0-12.0)
[2020-11-26 12:09] LABS: ALT 14 U/L (4-34); AST 47 U/L (14-36); African American GFR (CKD) >90 (>60 ml/min/1.73 sqM); Alkaline Phosphatase 125 U/L (38-126); Anion Gap 4 mmol/L; Blood Urea Nitrogen 4 mg/dL (7-17); Calcium 7.7 mg/dL (8.4-10.2); Carbon Dioxide 26 mmol/L (22-30); Chloride 104 mmol/L (98-107); Glucose 95 mg/dL (74-99); Non-African American GFR(CKD) >90 (>60 ml/min/1.73 sqM); Potassium 4.6 mmol/L (3.5-5.1); Sodium 134 mmol/L (137-145); Total Bilirubin 0.3 mg/dL (0.2-1.3); Total Protein 4.8 g/dL (6.3-8.2)
[2020-11-26 12:17] LABS: Basophils # (A) 0.1 k/uL (0-0.2); Basophils % (A) 1 %; Eosinophils # (A) 0.5 k/uL (0-0.7); Eosinophils % (A) 8 %; HCT 29.3 % (34.0-46.0); Hypochromasia Slight; Lymphocytes # (A) 2.4 k/uL (1.0-4.8); Lymphocytes % (A) 41 %; MCH 30.6 pg (25.0-35.0); MCHC 32.3 g/dL (31.0-37.0); MCV 94.6 fL (80.0-100.0); Mean Platelet Volume 8.5; Monocytes # (A) 0.6 k/uL (0-1.0); Monocytes % (A) 11 %; Neutrophils # (A) 2.1 k/uL (1.3-7.7); Neutrophils % (A) 36 %; Platelet Count 294 k/uL (150-450); WBC 5.9 k/uL (3.8-10.6)
[2020-11-26 12:18] LABS: HGB 9.5 gm/dL (11.4-16.0)
[2020-11-26] MEDS: IOPAMIDOL CONTRAST (ORAL USE) VIAL PO SCH ×2 (12:41→13:35)
--- NOTE | 2020-11-26 12:49 | P.PN ---
Subjective Progress Note Date: 11/26/20 The patient is a 74-year-old female with past medical history of hypertension, hypothyroidism, dyslipidemia, and nonischemic cardiomyopathy, who is currently admitted to the hospital with new onset of A. fib with RVR. The patient recently underwent colonoscopy reversal on 10/[address] Burt. The patient had been experiencing nausea, vomiting, and palpitations. She states her palp itations have now resolved however she continues to have abdominal discomfort. The patient was interviewed and examined lying comfortably in bed. No chest pain or chest pressure. No dyspnea, orthopnea, palpitations, dizziness, or lightheadedness. She states she has been up ambulating to the bathroom. GENERAL: Well-appearing, well-nourished and in no acute distress. NECK: Supple without JVD or thyromegaly. LUNGS: Breath sounds clear to auscultation bilaterally. Respiration equal and unlabored. No wheezes, rales or rhonchi. HEART: Regular rate and rhythm without murmurs, rubs or gallops. S1 and S2 heard. EXTREMITIES: Normal range of motion, no edema. No clubbing or cyanosis. Peripheral pulses intact and strong. VITALS: Blood pressure 122/78, SpO2 97% on room air, respiratory rate 18, pulse rate 66, temp 98.1F TELEMETRY: Sinus mechanism overnight. No atrial fibrillation LABS: WBC 5.9, hemoglobin 9.5, hematocrit 29.3, platelet 294, sodium 134, potassium 4.6, BUN 4, creatinine 0.54, calcium 7.7, AST 47, ALT 14 IMPRESSION: A. fib with RVR, maintaining sinus rhythm Elevated troponin, not indicative of ACS History of nonobstructive CAD Cardiomyopathy, last EF 30-35% Hypertension Dyslipidemia Hypokalemia Hypomagnesemia PLAN: Transition to novel anticoagulation and discontinue heparin drip Continue low-dose beta jarod Further recommendations will be based on clinical course The patient has been seen and evaluated. Plan of care has been reviewed and agreed upon by Dr Garcia. Objective - Vital Signs Vital signs: Vital Signs Temp 98.1 F 11/26/20 11:57 Pulse 66 11/26/20 11:57 Resp 18 11/26/20 11:57 BP 122/78 11/26/20 11:57 Pulse Ox 97 11/26/20 11:57 Intake & Output 11/25/20 11/26/20 11/26/20 18:59 06:59 18:59 Intake Total 77.894 360.978 60 Balance 77.894 360.978 60 Weight 81.647 kg 78 kg Intake: Intake, IV Titration 77.894 120.978 Amount Heparin Sod,Pork in 0.45% 77.894 120.978 NaCl 25,000 unit In 0.45 % NaCl 1 250ml.bag @ 12 UNITS/KG/HR 9.798 mls/hr IV .Q24H [facility] Rx#: [id number] Oral 240 60 Other: Voiding Method Toilet Toilet # Voids 1 - Labs CBC & Chem 7: 11/26/20 12:34 11/26/20 10:52 Labs: Abnormal Lab Results - Last 24 Hours (Table) 11/25/20 11/25/20 11/25/20 Range/Units 11:06 22:02 22:02 RBC (3.80-5.40) m/uL Hgb (11.4-16.0) gm/dL Hct (34.0-46.0) % APTT 42.2 H (22.0-30.0) sec Sodium 135 L (137-145) mmol/L Potassium 3.0 L 2.9 L (3.5-5.1) mmol/L BUN 5 L (7-17) mg/dL Creatinine 0.51 L (0.52-1.04) mg/dL Calcium 7.5 L (8.4-10.2) mg/dL Magnesium 1.4 L 1.5 L (1.6-2.3) mg/dL AST (14-36) U/L Total Protein 4.9 L (6.3-8.2) g/dL Albumin 2.0 L (3.5-5.0) g/dL 11/26/20 11/26/20 Range/Units 10:52 10:52 RBC 3.10 L (3.80-5.40) m/uL Hgb 9.5 L D (11.4-16.0) gm/dL Hct 29.3 L (34.0-46.0) % APTT (22.0-30.0) sec Sodium 134 L (137-145) mmol/L Potassium (3.5-5.1) mmol/L BUN 4 L (7-17) mg/dL Creatinine (0.52-1.04) mg/dL Calcium 7.7 L (8.4-10.2) mg/dL Magnesium (1.6-2.3) mg/dL AST 47 H (14-36) U/L Total Protein 4.8 L (6.3-8.2) g/dL Albumin 2.0 L (3.5-5.0) g/dL
[2020-11-26 12:53] LABS: Basophils # (A) 0.1 k/uL (0-0.2); Basophils % (A) 1 %; Eosinophils # (A) 0.6 k/uL (0-0.7); Eosinophils % (A) 8 %; HCT 33.7 % (34.0-46.0); HGB 10.8 gm/dL (11.4-16.0); Hypochromasia Slight; Lymphocytes # (A) 3.7 k/uL (1.0-4.8); Lymphocytes % (A) 47 %; MCH 30.6 pg (25.0-35.0); MCHC 32.1 g/dL (31.0-37.0); MCV 95.3 fL (80.0-100.0); Mean Platelet Volume 8.2; Monocytes # (A) 0.6 k/uL (0-1.0); Monocytes % (A) 8 %; Neutrophils # (A) 2.5 k/uL (1.3-7.7); Neutrophils % (A) 31 %; Platelet Count 369 k/uL (150-450); RBC 3.54 m/uL (3.80-5.40); WBC 7.8 k/uL (3.8-10.6)
[2020-11-26 13:34] LABS: Appearance,Urine Cloudy (Clear); Bacteria,Urine Rare /hpf; Bilirubin,Urine Negative (Negative); Blood,Urine Negative (Negative); Color,Urine Yellow; Glucose,Urine (UA) Negative (Negative); Hyaline Casts,Urine 3 /lpf (0-2); Ketones,Urine Negative (Negative); Leukocyte Esterase,Urine Large (Negative); Mucus,Urine Occasional /hpf; Nitrite,Urine Negative (Negative); Protein,Urine Negative (Negative); RBC,Urine 2 /hpf (0-5); Squamous Epithelial Cell,Urine 4 /hpf (0-4); Urobilinogen,Urine <2.0 mg/dL (<2.0); WBC,Urine 30 /hpf (0-5)
--- NOTE | 2020-11-26 14:54 | CT ---
EXAMINATION TYPE: CT abdomen pelvis w con DATE OF EXAM: 11/26/2020 COMPARISON: 11/24/2020 and priors. HISTORY: periumbilical pain CT DLP: 1088.9 mGycm Automated exposure control for dose reduction was used. TECHNIQUE: Helical acquisition of images was performed from the lung bases through the pelvis. CONTRAST: Performed with Oral Contrast and with IV Contrast, patient injected with 100 mL of Isovue 300. FINDINGS: LUNG BASES: No acute abnormality is appreciated. 4 mm right middle lobe nodule. LIVER/GB: No acute abnormality is appreciated. Hepatic steatosis and cholecystectomy seen. 3 2 mm dil ated common bile duct, may represent postsurgical change. PANCREAS: No significant abnormality is seen. SPLEEN: No significant abnormality is seen. ADRENALS: No significant abnormality is seen. KIDNEYS: Bilateral renal pelvic ectasia. No overt hydronephrosis, obstructing calculi or nephrolithia sis. 7 mm simple right renal cyst in the upper pole. RETROPERITONEAL ADENOPATHY: None visualized REPRODUCTIVE ORGANS: No significant abnormality is seen URINARY BLADDER: No significant abnormality is seen. PELVIC ADENOPATHY: None visualized. OSSEOUS STRUCTURES: No acute abnormality is seen. Moderate lumbar spondylosis with levoconvex scolio sis. Grade 1 retrolisthesis at L2-L3 and grade 1 anterolisthesis at L4-L5. BOWEL: Gastric bypass and sigmoid colonic postsurgical changes seen. No bowel obstruction, free air or fluid. Small fat-containing periumbilical hernia. Appendix not visualized, however no evidence for acute appendicitis. OTHER: Moderate to advanced atherosclerotic disease. IMPRESSION: REDEMONSTRATED ABDOMINAL POSTSURGICAL CHANGES WITHOUT ACUTE ABNORMALITY IS SEEN. STABLE 4 MM RIGHT MIDDLE LOBE NODULE, DATING BACK TO 2019 CT. SMALL FAT-CONTAINING PERIUMBILICAL HERNIA. ADDITIONAL CHRONIC FINDINGS ABOVE.
--- NOTE | 2020-11-26 16:01 | ECHOF ---
Referral Reason:LV function MEASUREMENTS -------- HEIGHT: 160.0 cm WEIGHT: 81.6 kg BP: IVSd: 1.2 cm (0.6 - 1.1) LVIDd: 4.6 cm (3.9 - 5.3) LVPWd: 1.6 cm (0.6 - 1.1) EDV(Teich): 96 ml IVSs: 1.5 cm LVIDs: 3.5 cm LVPWs: 1.2 cm %IVS Thck: 26 % ESV(Teich): 52 ml EF(Teich): 46 % %FS: 23 % SV(Teich): 44 ml LALs A4C: 4.6 cm LAAs A4C: 17.5 cm LAESV A-L A4C: 57 ml LAESV MOD A4C: 55 ml LALs A2C: 6.0 cm LAAs A2C: 23.3 cm LAESV A-L A2C: 77 ml LAESV MOD A2C: 72 ml LAESV(A-L): 75 ml LAESV Index (A-L): 40.66 ml/m Ao Diam: 3.6 cm (2.0 - 3.7) LA Diam: 4.5 cm (2.7 - 3.8) AV Cusp: 1.7 cm (1.5 - 2.6) EPSS: 0.4 cm MV E Trent: 0.85 m/s MV DecT: 328 ms MV Dec Cole: 2.6 m/s MV A Trent: 1.19 m/s MV E/A Ratio: 0.71 MV PHT: 95 ms AV Vmax: 1.74 m/s AV maxP.08 mmHg AR Vmax: 4.12 m/s AR maxP.03 mmHg AR PHT: 282 ms AR Dec Time: 972 ms AR Dec Cole: 4.2 m/s TR Vmax: 1.57 m/s TR maxP.84 mmHg RAP: 5.00 mmHg RVSP: 14.84 mmHg MV EF SLOPE: 35.97 mm/s (70 - 150) MV EXCURSION: 16.01 mm (> 18.000) FINDINGS -------- Undetermined rhythm. This was a technically good study. LV size, wall thickness and systolic function are normal, with an EF greater than 55%. The left radha tricular size is normal. The right ventricle is normal in size. LA is severely dilated >40 ml/m2 The right atrial size is normal. There is mild aortic valve sclerosis. There is mild aortic regurgitation. Mild mitral annular calcification present. Mild mitral regurgitation is present. Mild tricuspid regurgitation present. Right ventricular systolic pressure is normal at < 35 mmHg. There is no pulmonic regurgitation present. There is no pericardial effusion. CONCLUSIONS -------- 1. LV size, wall thickness and systolic function are normal, with an EF greater than 55%. 2. The left ventricular size is normal. 3. The right ventricle is normal in size. 4. LA is severely dilated >40 ml/m2 5. The right atrial size is normal. 6. There is mild aortic valve sclerosis. 7. There is mild aortic regurgitation. 8. Mild mitral annular calcification present. 9. Mild mitral regurgitation is present. 10. Mild tricuspid regurgitation present. 11. There is no pericardial effusion. NUT BLANKER OPERATOR: Nicole Hilario RDCS
--- NOTE | 2020-11-26 18:09 | P.PN ---
Subjective Progress Note Date: 11/26/20 74-year-old female with a past medical history significant for hypertension, hypothyroidism, hyperlipidemia, and non-ischemic cardiomyopathy. History of diverticulitis with mesenteric abscess and revision was not partial small bowel obstruction in this patient who status post sigmoid colectomy and end colostomy and lysis of condition completed on 07/10/2020. Recently on 10/26/20 underwent reversal colostomy with Dr. Burt. Patient was found to be in new onset atrial fibrillation. Patient presents emergency department with worsening abdominal pain, nausea, vomiting that started yesterday morning around 10 AM. Patient states after surgery she was doing well until yesterday when her symptoms started. She does endorse palpitations. Denies chest pain, shortness of breath, lightheadedness, dizziness. On admission, second EKG patient appears to be in atrial fibrillation HR 140s. Patient was given IV Lopressor 5 mg, and started on a heparin drip. Patient was also started on metoprolol titrate 25 mg twice a day. She converted to sinus mechanism. She was also hypokalemic and was given replacement potassium. CT abdomen and pelvis revealed postsurgical changes, previous gastric surgery, previous rectal surgery. Improvement in the fat stranding over the subcutaneous fat in the lower anterior abdomen compared to old exam. No evidence of obstruction. Mild fatty infiltration of the liver. Laboratory data: WBC 6.6, hemoglobin 12, platelets 528, sodium 134, potassium 2.8, BUN 6, serum creatinine 0.5, lactate 2.3, repeat 1.2, magnesium 1.5, AST 46, ALT 15, alkaline phosphatase 207, albumin 3.1, TSH low, free T4 4.3. Current home cardiac medications include Lasix 20 mg daily. Patient's repeat EKG was sinus rhythm with PACs, heart rate 96, T wave inversions in lead V2, V3 which is not new from EKG in 07/2020. 11/26/2020 Patient is seen and evaluated in room at bedside; continues to complain of lower abdominal pain Vital signs are reviewed and stable with a temperature of 97.9, pulse 85, respirations 19 and blood pressure 122/57 Labs are reviewed and reveal a sudden drop in hemoglobin down to 9.5 from 12 on admission; WBC is 7.8; chemical profile is stable with sodium 134, potassium 4.6, BUN/creatinine of 4/0.54; UA is positive Patient has had acute drop in hemoglobin from 12 down to 9.5; question chronic anemia; we will monitor H&H closely and continue with IV Protonix; monitor stool occult blood; we will repeat CT of the abdomen and pelvis UA is positive with pending urine culture; we will monitor CBC, pro-calcitonin and CRP and start patient on IV Rocephin 1 g daily Objective - Vital Signs Vital signs: Vital Signs Temp 97.9 F 11/26/20 08:00 Pulse 85 11/26/20 08:00 Resp 19 11/26/20 08:00 BP 122/57 11/26/20 08:00 Pulse Ox 98 11/26/20 08:48 Intake & Output 11/25/20 11/26/20 11/26/20 18:59 06:59 18:59 Intake Total 77.894 360.978 60 Balance 77.894 360.978 60 Weight 81.647 kg 78 kg Intake: Intake, IV Titration 77.894 120.978 Amount Heparin Sod,Pork in 0.45% 77.894 120.978 NaCl 25,000 unit In 0.45 % NaCl 1 250ml.bag @ 12 UNITS/KG/HR 9.798 mls/hr IV .Q24H [facility] Rx#: [id number] Oral 240 60 Other: Voiding Method Toilet Toilet # Voids 1 - Exam - Constitutional General appearance: Present: average body habitus, cooperative, no acute distress - EENT Eyes: Present: anicteric sclerae, EOMI, PERRLA, normal appearance ENT: Present: hearing grossly normal, normal oropharynx Ears: bilateral: normal - Neck Neck: Present: normal ROM. Absent: lymphadenopathy, rigidity, thyromegaly Carotids: negative: bruit present Thyroid: bilateral: normal size, negative: enlarged, nodule - Respiratory Respiratory: bilateral: CTA, negative: rales, rhonchi, wheezing - Cardiovascular Rhythm: regular Heart sounds: normal: S1, S2 Abnormal Heart Sounds: Absent: systolic murmur, diastolic murmur - Gastrointestinal General gastrointestinal: Present: normal bowel sounds, soft. Absent: distended, organomegaly, tenderness - Genitourinary Genitourinary Comment(s): deferred - Integumentary Integumentary: Present: normal turgor. Absent: jaundiced, rash, ulcer - Neurologic Neurologic: Present: CNII-XII intact. Absent: focal deficits - Musculoskeletal Musculoskeletal: Present: gait normal, strength equal bilaterally - Psychiatric Psychiatric: Present: A&O x's 3, appropriate affect, intact judgment & insight - Labs CBC & Chem 7: 11/26/20 12:34 11/26/20 10:52 Labs: Abnormal Lab Results - Last 24 Hours (Table) 11/25/20 11/25/20 11/25/20 Range/Units 11:06 11:06 22:02 PT 14.5 H (9.0-12.0) sec INR 1.4 H (<1.2) APTT 88.3 H 42.2 H (22.0-30.0) sec Sodium 135 L (137-145) mmol/L Potassium 3.0 L (3.5-5.1) mmol/L BUN 5 L (7-17) mg/dL Creatinine 0.51 L (0.52-1.04) mg/dL Calcium 7.5 L (8.4-10.2) mg/dL Magnesium 1.4 L (1.6-2.3) mg/dL Total Protein 4.9 L (6.3-8.2) g/dL Albumin 2.0 L (3.5-5.0) g/dL 11/25/20 Range/Units 22:02 PT (9.0-12.0) sec INR (<1.2) APTT (22.0-30.0) sec Sodium (137-145) mmol/L Potassium 2.9 L (3.5-5.1) mmol/L BUN (7-17) mg/dL Creatinine (0.52-1.04) mg/dL Calcium (8.4-10.2) mg/dL Magnesium 1.5 L (1.6-2.3) mg/dL Total Protein (6.3-8.2) g/dL Albumin (3.5-5.0) g/dL Assessment and Plan Assessment: 1. Abdominal pain/nausea/vomiting - History of diverticulitis with mesenteric abscess and revision was not partial small bowel obstruction in this patient who status post sigmoid colectomy and end colostomy and lysis of condition completed on 07/10/2020. Recently on 10/26/20 underwent reversal colostomy with Dr. Burt. - Consult surgery 2. New onset atrial fibrillation - Patient has been placed on IV heparin in ED; converted spontaneously to sinus rhythm; we will monitor on telemetry and continue with IV anticoagulation and await further recommendations from cardiology 3. Elevated troponin; rule out acute coronary syndrome - Patient does have history of nonobstructive CAD with cardiomyopathy, EF 35%; continue with aspirin, beta blockers, statin therapy - Consult cardiology for further recommendations 4. Hypertension; metoprolol 25 mg twice a day 5. Hyperlipidemia; currently not on statin therapy 6. Hypothyroidism; levothyroxin 200 MCG daily 7. Electrolyte imbalance; hypokalemia/hypomagnesemia; supplemented in ED; we will monitor electrolytes closely and continue to supplement DVT prophylaxis; SCDs/subcu heparin CODE STATUS; full code
[2020-11-26] MEDS: APIXABAN 5 MG TAB PO SCH (20:28)
[2020-11-26] MEDS: QUEtiapine 25 MG TAB PO SCH (20:28)
[2020-11-27] MEDS: MORPHINE SULFATE 4 MG/ML SYRINGE IVP PRN ×6 (02:12→22:19)
[2020-11-27] MEDS: PANTOPRAZOLE 40 MG TABLET PO SCH (06:15)
[2020-11-27] MEDS: LEVOTHYROXINE 100 MCG TAB PO SCH (06:15)
[2020-11-27 07:59] LABS: African American GFR (CKD) >90 (>60 ml/min/1.73 sqM); Anion Gap 4 mmol/L; Blood Urea Nitrogen 5 mg/dL (7-17); Calcium 7.9 mg/dL (8.4-10.2); Carbon Dioxide 25 mmol/L (22-30); Chloride 103 mmol/L (98-107); Glucose 98 mg/dL (74-99); Non-African American GFR(CKD) >90 (>60 ml/min/1.73 sqM); Potassium 3.8 mmol/L (3.5-5.1); Sodium 132 mmol/L (137-145)
[2020-11-27] MEDS: APIXABAN 5 MG TAB PO SCH ×2 (08:14→22:19)
[2020-11-27] MEDS: METOPROLOL TARTRATE 25 MG TAB PO SCH ×2 (08:14→22:18)
[2020-11-27] MEDS: ASPIRIN 81 MG PO SCH (08:14)
[2020-11-27] MEDS: FUROSEMIDE 20 MG TAB PO SCH (08:14)
[2020-11-27] MEDS ORDERED: MAGNESIUM HYDROXIDE 2,400 MG/10 ML CUP PO PRN (10:10)
--- NOTE | 2020-11-27 10:12 | P.PN ---
Subjective Progress Note Date: 11/27/20 Principal diagnosis: Abdominal pain Patient still describing abdominal pain. Says it slightly better. Tolerating diet. No bowel movement for 2 days. No nausea or vomiting. Objective - Vital Signs Vital signs: Vital Signs Temp 97.8 F 11/27/20 08:00 Pulse 74 11/27/20 08:00 Resp 18 11/27/20 08:00 BP 130/61 11/27/20 08:00 Pulse Ox 99 11/27/20 08:00 Intake & Output 11/26/20 11/27/20 11/27/20 18:59 06:59 18:59 Intake Total 635.857 240 Output Total 300 Balance 335.857 240 Weight 78 kg Intake: Intake, IV Titration 95.857 Amount Heparin Sod,Pork in 0.45% 95.857 NaCl 25,000 unit In 0.45 % NaCl 1 250ml.bag @ 12 UNITS/KG/HR 9.798 mls/hr IV .Q24H [facility] Rx#: [id number] Oral 540 240 Output: Urine 300 Other: Voiding Method Toilet Toilet Toilet # Voids 1 2 - Exam Abdomen: Soft, mild induration along incision, no definite hernia palpable, mild tenderness in the midline - Labs CBC & Chem 7: 11/26/20 12:34 11/27/20 07:24 Labs: Abnormal Lab Results - Last 24 Hours (Table) 11/26/20 11/26/20 11/26/20 Range/Units 10:52 10:52 10:52 RBC 3.10 L (3.80-5.40) m/uL Hgb 9.5 L D (11.4-16.0) gm/dL Hct 29.3 L (34.0-46.0) % PT 13.7 H (9.0-12.0) sec INR 1.3 H (<1.2) APTT (22.0-30.0) sec Sodium 134 L (137-145) mmol/L BUN 4 L (7-17) mg/dL Creatinine (0.52-1.04) mg/dL Calcium 7.7 L (8.4-10.2) mg/dL AST 47 H (14-36) U/L Total Protein 4.8 L (6.3-8.2) g/dL Albumin 2.0 L (3.5-5.0) g/dL Urine Appearance (Clear) Ur Leukocyte Esterase (Negative) Urine WBC (0-5) /hpf Urine Bacteria (None) /hpf Hyaline Casts (0-2) /lpf Urine Mucus (None) /hpf 11/26/20 11/26/20 11/26/20 Range/Units 10:52 12:34 13:22 RBC 3.54 L (3.80-5.40) m/uL Hgb 10.8 L (11.4-16.0) gm/dL Hct 33.7 L (34.0-46.0) % PT (9.0-12.0) sec INR (<1.2) APTT 89.0 H (22.0-30.0) sec Sodium (137-145) mmol/L BUN (7-17) mg/dL Creatinine (0.52-1.04) mg/dL Calcium (8.4-10.2) mg/dL AST (14-36) U/L Total Protein (6.3-8.2) g/dL Albumin (3.5-5.0) g/dL Urine Appearance Cloudy H (Clear) Ur Leukocyte Esterase Large H (Negative) Urine WBC 30 H (0-5) /hpf Urine Bacteria Rare H (None) /hpf Hyaline Casts 3 H (0-2) /lpf Urine Mucus Occasional H (None) /hpf 11/27/20 Range/Units 07:24 RBC (3.80-5.40) m/uL Hgb (11.4-16.0) gm/dL Hct (34.0-46.0) % PT (9.0-12.0) sec INR (<1.2) APTT (22.0-30.0) sec Sodium 132 L (137-145) mmol/L BUN 5 L (7-17) mg/dL Creatinine 0.49 L (0.52-1.04) mg/dL Calcium 7.9 L (8.4-10.2) mg/dL AST (14-36) U/L Total Protein (6.3-8.2) g/dL Albumin (3.5-5.0) g/dL Urine Appearance (Clear) Ur Leukocyte Esterase (Negative) Urine WBC (0-5) /hpf Urine Bacteria (None) /hpf Hyaline Casts (0-2) /lpf Urine Mucus (None) /hpf Microbiology - Last 24 Hours (Table) 11/26/20 13:22 Urine Culture - Preliminary Urine,Voided Assessment and Plan (1) Abdominal pain Narrative/Plan: Patient tolerating diet. We'll add milk of magnesia. Ambulate. If discharged today follow-up with Dr. Burt 1 week. Current Visit: Yes Status: Acute Code(s): R10.9 - UNSPECIFIED ABDOMINAL PAIN SNOMED Code(s): 96574069
--- NOTE | 2020-11-27 12:16 | P.PN ---
Subjective The patient is a 74-year-old female with past medical history of hypertension, hypothyroidism, dyslipidemia, and nonischemic cardiomyopathy, who is currently admitted to the hospital with new onset of A. fib with RVR. The patient recently underwent colonoscopy reversal on 10/[address] Burt. The patient had been experiencing nausea, vomiting, and palpitations. She states her palpitations have now resolved however she continues to have abdominal discomfort. The patient was interviewed and examined lying comfortably in bed. No chest pain or chest pressure. Positive for abdominal pain, which is notably worse today. No dyspnea, orthopnea, palpitations, dizziness, or lightheadedness. She states she has been up ambulating to the bathroom. GENERAL: Well-appearing, well-nourished and in no acute distress. NECK: Supple without JVD or thyromegaly. LUNGS: Breath sounds clear to auscultation bilaterally. Respiration equal and unlabored. No wheezes, rales or rhonchi. HEART: Regular rate and rhythm without murmurs, rubs or gallops. S1 and S2 heard. EXTREMITIES: Normal range of motion, no edema. No clubbing or cyanosis. Peripheral pulses intact and strong. VITALS: Blood pressure 113/74, respiratory rate 18, pulse rate 65, temp 97.9F, SpO2 95% on room air TELEMETRY: Sinus mechanism overnight. No atrial fibrillation LABS: Sodium 132, potassium 3.8, BUN 5, creatinine 0.49, magnesium 1.7 IMPRESSION: A. fib with RVR, maintaining sinus rhythm Elevated troponin, not indicative of ACS History of nonobstructive CAD Cardiomyopathy, last EF 30-35% Hypertension Dyslipidemia Hypokalemia Hypomagnesemia PLAN: Patient has been transitioned to Eliquis; check coverage prior to discharge Continue low-dose beta jarod Follow up outpatient with primary sports internship, Dr. Gonzalez The patient has been seen and evaluated. Plan of care has been reviewed and agreed upon by Dr Garcia. Objective - Vital Signs Vital signs: Vital Signs Temp 97.9 F 11/27/20 11:40 Pulse 65 11/27/20 11:40 Resp 18 11/27/20 11:40 BP 113/74 11/27/20 11:40 Pulse Ox 95 11/27/20 11:40 Intake & Output 11/26/20 11/27/20 11/27/20 18:59 06:59 18:59 Intake Total 635.857 240 Output Total 300 Balance 335.857 240 Weight 78 kg Intake: Intake, IV Titration 95.857 Amount Heparin Sod,Pork in 0.45% 95.857 NaCl 25,000 unit In 0.45 % NaCl 1 250ml.bag @ 12 UNITS/KG/HR 9.798 mls/hr IV .Q24H [facility] Rx#: [id number] Oral 540 240 Output: Urine 300 Other: Voiding Method Toilet Toilet Toilet # Voids 1 2 1 - Labs CBC & Chem 7: 11/26/20 12:34 11/27/20 07:24 Labs: Abnormal Lab Results - Last 24 Hours (Table) 11/26/20 11/26/20 11/26/20 Range/Units 10:52 10:52 10:52 RBC 3.10 L (3.80-5.40) m/uL Hgb 9.5 L D (11.4-16.0) gm/dL Hct 29.3 L (34.0-46.0) % PT 13.7 H (9.0-12.0) sec INR 1.3 H (<1.2) APTT 89.0 H (22.0-30.0) sec Sodium (137-145) mmol/L BUN (7-17) mg/dL Creatinine (0.52-1.04) mg/dL Calcium (8.4-10.2) mg/dL Urine Appearance (Clear) Ur Leukocyte Esterase (Negative) Urine WBC (0-5) /hpf Urine Bacteria (None) /hpf Hyaline Casts (0-2) /lpf Urine Mucus (None) /hpf 11/26/20 11/26/20 11/27/20 Range/Units 12:34 13:22 07:24 RBC 3.54 L (3.80-5.40) m/uL Hgb 10.8 L (11.4-16.0) gm/dL Hct 33.7 L (34.0-46.0) % PT (9.0-12.0) sec INR (<1.2) APTT (22.0-30.0) sec Sodium 132 L (137-145) mmol/L BUN 5 L (7-17) mg/dL Creatinine 0.49 L (0.52-1.04) mg/dL Calcium 7.9 L (8.4-10.2) mg/dL Urine Appearance Cloudy H (Clear) Ur Leukocyte Esterase Large H (Negative) Urine WBC 30 H (0-5) /hpf Urine Bacteria Rare H (None) /hpf Hyaline Casts 3 H (0-2) /lpf Urine Mucus Occasional H (None) /hpf Microbiology - Last 24 Hours (Table) 11/26/20 13:22 Urine Culture - Preliminary Urine,Voided
--- NOTE | 2020-11-27 17:32 | P.PN ---
Subjective Progress Note Date: 11/27/20 74-year-old female with a past medical history significant for hypertension, hypothyroidism, hyperlipidemia, and non-ischemic cardiomyopathy. History of diverticulitis with mesenteric abscess and revision was not partial small bowel obstruction in this patient who status post sigmoid colectomy and end colostomy and lysis of condition completed on 07/10/2020. Recently on 10/26/20 underwent reversal colostomy with Dr. Burt. Patient was found to be in new onset atrial fibrillation. Patient presents emergency department with worsening abdominal pain, nausea, vomiting that started yesterday morning around 10 AM. Patient states after surgery she was doing well until yesterday when her symptoms started. She does endorse palpitations. Denies chest pain, shortness of breath, lightheadedness, dizziness. On admission, second EKG patient appears to be in atrial fibrillation HR 140s. Patient was given IV Lopressor 5 mg, and started on a heparin drip. Patient was also started on metoprolol titrate 25 mg twice a day. She converted to sinus mechanism. She was also hypokalemic and was given replacement potassium. CT abdomen and pelvis revealed postsurgical changes, previous gastric surgery, previous rectal surgery. Improvement in the fat stranding over the subcutaneous fat in the lower anterior abdomen compared to old exam. No evidence of obstruction. Mild fatty infiltration of the liver. Laboratory data: WBC 6.6, hemoglobin 12, platelets 528, sodium 134, potassium 2.8, BUN 6, serum creatinine 0.5, lactate 2.3, repeat 1.2, magnesium 1.5, AST 46, ALT 15, alkaline phosphatase 207, albumin 3.1, TSH low, free T4 4.3. Current home cardiac medications include Lasix 20 mg daily. Patient's repeat EKG was sinus rhythm with PACs, heart rate 96, T wave inversions in lead V2, V3 which is not new from EKG in 07/2020. 11/26/2020 Patient is seen and evaluated in room at bedside; continues to complain of lower abdominal pain Vital signs are reviewed and stable with a temperature of 97.9, pulse 85, respirations 19 and blood pressure 122/57 Labs are reviewed and reveal a sudden drop in hemoglobin down to 9.5 from 12 on admission; WBC is 7.8; chemical profile is stable with sodium 134, potassium 4.6, BUN/creatinine of 4/0.54; UA is positive Patient has had acute drop in hemoglobin from 12 down to 9.5; question chronic anemia; we will monitor H&H closely and continue with IV Protonix; monitor stool occult blood; we will repeat CT of the abdomen and pelvis UA is positive with pending urine culture; we will monitor CBC, pro-calcitonin and CRP and start patient on IV Rocephin 1 g daily 11/27/2020 Patient is seen and evaluated in room at bedside; continues to report pain Patient has been evaluated by surgery with repeat CT of abdomen which is unremarkable; UA did reveal infection and patient was placed on Rocephin 1 g IV daily yesterday; await final urine culture results Patient evaluated by cardiology for A. fib with RVR; IV heparin has been discontinued and patient is transitioned to oral anticoagulation; patient will remain on low-dose beta blockers Objective - Vital Signs Vital signs: Vital Signs Temp 97.8 F 11/27/20 08:00 Pulse 74 11/27/20 08:00 Resp 18 11/27/20 08:00 BP 130/61 11/27/20 08:00 Pulse Ox 99 11/27/20 08:00 Intake & Output 11/26/20 11/27/20 11/27/20 18:59 06:59 18:59 Intake Total 635.857 240 Output Total 300 Balance 335.857 240 Weight 78 kg Intake: Intake, IV Titration 95.857 Amount Heparin Sod,Pork in 0.45% 95.857 NaCl 25,000 unit In 0.45 % NaCl 1 250ml.bag @ 12 UNITS/KG/HR 9.798 mls/hr IV .Q24H [facility] Rx#: [id number] Oral 540 240 Output: Urine 300 Other: Voiding Method Toilet Toilet Toilet # Voids 1 2 - Exam - Constitutional General appearance: Present: average body habitus, cooperative, no acute distress - EENT Eyes: Present: anicteric sclerae, EOMI, PERRLA, normal appearance ENT: Present: hearing grossly normal, normal oropharynx Ears: bilateral: normal - Neck Neck: Present: normal ROM. Absent: lymphadenopathy, rigidity, thyromegaly Carotids: negative: bruit present Thyroid: bilateral: normal size, negative: enlarged, nodule - Respiratory Respiratory: bilateral: CTA, negative: rales, rhonchi, wheezing - Cardiovascular Rhythm: regular Heart sounds: normal: S1, S2 Abnormal Heart Sounds: Absent: systolic murmur, diastolic murmur - Gastrointestinal General gastrointestinal: Present: normal bowel sounds, soft. Absent: distended, organomegaly, tenderness - Genitourinary Genitourinary Comment(s): deferred - Integumentary Integumentary: Present: normal turgor. Absent: jaundiced, rash, ulcer - Neurologic Neurologic: Present: CNII-XII intact. Absent: focal deficits - Musculoskeletal Musculoskeletal: Present: gait normal, strength equal bilaterally - Psychiatric Psychiatric: Present: A&O x's 3, appropriate affect, intact judgment & insight - Labs CBC & Chem 7: 11/26/20 12:34 11/27/20 07:24 Labs: Abnormal Lab Results - Last 24 Hours (Table) 11/26/20 11/26/20 11/26/20 Range/Units 10:52 10:52 10:52 RBC 3.10 L (3.80-5.40) m/uL Hgb 9.5 L D (11.4-16.0) gm/dL Hct 29.3 L (34.0-46.0) % PT 13.7 H (9.0-12.0) sec INR 1.3 H (<1.2) APTT (22.0-30.0) sec Sodium 134 L (137-145) mmol/L BUN 4 L (7-17) mg/dL Creatinine (0.52-1.04) mg/dL Calcium 7.7 L (8.4-10.2) mg/dL AST 47 H (14-36) U/L Total Protein 4.8 L (6.3-8.2) g/dL Albumin 2.0 L (3.5-5.0) g/dL Urine Appearance (Clear) Ur Leukocyte Esterase (Negative) Urine WBC (0-5) /hpf Urine Bacteria (None) /hpf Hyaline Casts (0-2) /lpf Urine Mucus (None) /hpf 11/26/20 11/26/20 11/26/20 Range/Units 10:52 12:34 13:22 RBC 3.54 L (3.80-5.40) m/uL Hgb 10.8 L (11.4-16.0) gm/dL Hct 33.7 L (34.0-46.0) % PT (9.0-12.0) sec INR (<1.2) APTT 89.0 H (22.0-30.0) sec Sodium (137-145) mmol/L BUN (7-17) mg/dL Creatinine (0.52-1.04) mg/dL Calcium (8.4-10.2) mg/dL AST (14-36) U/L Total Protein (6.3-8.2) g/dL Albumin (3.5-5.0) g/dL Urine Appearance Cloudy H (Clear) Ur Leukocyte Esterase Large H (Negative) Urine WBC 30 H (0-5) /hpf Urine Bacteria Rare H (None) /hpf Hyaline Casts 3 H (0-2) /lpf Urine Mucus Occasional H (None) /hpf 11/27/20 Range/Units 07:24 RBC (3.80-5.40) m/uL Hgb (11.4-16.0) gm/dL Hct (34.0-46.0) % PT (9.0-12.0) sec INR (<1.2) APTT (22.0-30.0) sec Sodium 132 L (137-145) mmol/L BUN 5 L (7-17) mg/dL Creatinine 0.49 L (0.52-1.04) mg/dL Calcium 7.9 L (8.4-10.2) mg/dL AST (14-36) U/L Total Protein (6.3-8.2) g/dL Albumin (3.5-5.0) g/dL Urine Appearance (Clear) Ur Leukocyte Esterase (Negative) Urine WBC (0-5) /hpf Urine Bacteria (None) /hpf Hyaline Casts (0-2) /lpf Urine Mucus (None) /hpf Microbiology - Last 24 Hours (Table) 11/26/20 13:22 Urine Culture - Preliminary Urine,Voided Assessment and Plan Assessment: 1. Abdominal pain/nausea/vomiting - History of diverticulitis with mesenteric abscess and revision was not partial small bowel obstruction in this patient who status post sigmoid colectomy and end colostomy and lysis of condition completed on 07/10/2020. Recently on 10/26/20 underwent reversal colostomy with Dr. Burt. - Consult surgery 2. New onset atrial fibrillation - Patient has been placed on IV heparin in ED; converted spontaneously to sinus rhythm; we will monitor on telemetry and continue with IV anticoagulation and await further recommendations from cardiology 3. Elevated troponin; rule out acute coronary syndrome - Patient does have history of nonobstructive CAD with cardiomyopathy, EF 35%; continue with aspirin, beta blockers, statin therapy - Consult cardiology for further recommendations 4. Hypertension; metoprolol 25 mg twice a day 5. Hyperlipidemia; currently not on statin therapy 6. Hypothyroidism; levothyroxin 200 MCG daily 7. Electrolyte imbalance; hypokalemia/hypomagnesemia; supplemented in ED; we will monitor electrolytes closely and continue to supplement DVT prophylaxis; SCDs/subcu heparin CODE STATUS; full code
[2020-11-27] MEDS: QUEtiapine 25 MG TAB PO SCH (22:19)
[2020-11-28] MEDS: MORPHINE SULFATE 4 MG/ML SYRINGE IVP PRN ×6 (02:29→22:14)
[2020-11-28] MEDS: PANTOPRAZOLE 40 MG TABLET PO SCH (06:26)
[2020-11-28] MEDS: LEVOTHYROXINE 100 MCG TAB PO SCH (06:26)
[2020-11-28] MEDS: ASPIRIN 81 MG PO SCH (07:59)
[2020-11-28] MEDS: APIXABAN 5 MG TAB PO SCH ×2 (07:59→22:14)
[2020-11-28] MEDS: METOPROLOL TARTRATE 25 MG TAB PO SCH ×2 (07:59→22:14)
[2020-11-28] MEDS: FUROSEMIDE 20 MG TAB PO SCH (07:59)
--- NOTE | 2020-11-28 12:58 | P.PN ---
Subjective Progress Note Date: 11/28/20 CHIEF COMPLAINT: Abdominal pain HISTORY OF PRESENT ILLNESS: Patient is still complaining of the same abdominal pain. She reports her pain is mostly around her incision site. She has not had any significant improvement in her pain. She did have some vomiting last night. She did have a bowel movements this morning. PHYSICAL EXAM: VITAL SIGNS: Reviewed. GENERAL: Well-developed in no acute distress. HEENT: No sclera icterus. Extraocular movements grossly intact. Moist buccal mucosa. Head is atraumatic, normocephalic. ABDOMEN: Soft. Nondistended. No evidence of infection incision site. Mild tenderness with palpation of the incision and left lower quadrant NEUROLOGIC: Alert and oriented. Cranial nerves II through XII grossly intact. ASSESSMENT: 1. Abdominal pain 2. History of colostomy reversal PLAN: -No surgical intervention planned -Continue heart healthy diet -Encouraged patient to increase activity -Continue pain medication as needed. Will resume her home [place] Physician Facsimile Operator note has been reviewed by physician. Signing provider agrees with the documented findings, assessment, and plan of care. Objective - Vital Signs Vital signs: Vital Signs Temp 98.2 F 11/28/20 12:00 Pulse 68 11/28/20 12:00 Resp 18 11/28/20 12:00 BP 129/76 11/28/20 12:00 Pulse Ox 97 11/28/20 12:00 Intake & Output 11/27/20 11/28/20 11/28/20 18:59 06:59 18:59 Intake Total 477 20 Balance 477 20 Weight 74.7 kg Intake: Oral 477 20 Other: Voiding Method Toilet Toilet Toilet # Voids 1 1 1 # Bowel Movements 1 - Labs CBC & Chem 7: 11/26/20 12:34 11/27/20 07:24
[2020-11-28] MEDS: HYDROcodone/APAP 10-325MG 1 EACH TAB PO PRN ×2 (13:05→19:51)
--- NOTE | 2020-11-28 14:10 | P.PN ---
Subjective Progress Note Date: 11/28/20 HISTORY OF PRESENT ILLNESS: The patient is a 74-year-old female with past medical history of hypertension, hypothyroidism, dyslipidemia, and nonischemic cardiomyopathy, who is currently admitted to the hospital with new onset of A. fib with RVR. The patient recently underwent colostomy reversal on 10/[address] Burt. The patient had been experiencing nausea, vomiting, and palpitations. She states her palpitations have now resolved however she continues to have abdominal discomfort. 11/27/2020 The patient was interviewed and examined lying comfortably in bed. No chest pain or chest pressure. Positive for abdominal pain, which is notably worse today. No dyspnea, orthopnea, palpitations, dizziness, or lightheadedness. She states she has been up ambulating to the bathroom. 11/28/2020 Patient examined this morning at the bedside. She denies chest pain or pressure. She denies shortness of breath. Telemetry reveals sinus negative isn't. No further episodes of atrial fibrillation. Patient complains of significant abdominal pain at time of my examination. PHYSICAL EXAM: VITAL SIGNS: Reviewed. GENERAL: Well-developed in no acute distress. NECK: Supple. No JVD or thyromegaly LUNGS: Respirations even and unlabored. Lungs essentially clear to auscultation bilaterally. HEART: Regular rate and rhythm. S1 and S2 heard. EXTREMITIES: Normal range of motion. No clubbing or cyanosis. Peripheral pulses intact. No lower extremity edema ASSESSMENT: New-onset paroxysmal atrial fibrillation, currently maintaining sinus mechanism Abnormal troponins, not indicative of acute coronary syndrome History of nonobstructive CAD Hypertension Hyperlipidemia Hypokalemia Hypomagnesemia Recent history of colostomy reversal PLAN: Continue current cardiac medications including aspirin 81 mg daily, lasix 20mg PO daily, Eliquis 5 mg twice a day, metoprolol tartrate 25 mg twice a day Patient is stable from a cardiac standpoint She is to follow up outpatient with Dr. Garcia (patient states she used to see Dr. Marty Caruso several years ago) Further recommendations pending patient course Nurse practitioner note has been reviewed by physician. Signing provider agrees with the documented findings, assessment, and plan of care. Objective - Vital Signs Vital signs: Vital Signs Temp 98.2 F 11/28/20 12:00 Pulse 68 11/28/20 14:00 Resp 18 11/28/20 14:00 BP 129/76 11/28/20 12:00 Pulse Ox 97 11/28/20 12:00 Intake & Output 11/27/20 11/28/20 11/28/20 18:59 06:59 18:59 Intake Total 477 20 Balance 477 20 Weight 74.7 kg Intake: Oral 477 20 Other: Voiding Method Toilet Toilet Toilet # Voids 1 1 1 # Bowel Movements 1 - Labs CBC & Chem 7: 11/26/20 12:34 11/27/20 07:24
[2020-11-28] MEDS: QUEtiapine 25 MG TAB PO SCH (22:14)
[2020-11-29] MEDS: MORPHINE SULFATE 4 MG/ML SYRINGE IVP PRN ×6 (04:42→23:57)
[2020-11-29] MEDS: PANTOPRAZOLE 40 MG TABLET PO SCH (06:13)
[2020-11-29] MEDS: LEVOTHYROXINE 100 MCG TAB PO SCH (06:13)
[2020-11-29] MEDS: HYDROcodone/APAP 10-325MG 1 EACH TAB PO PRN ×3 (06:13→22:34)
[2020-11-29 09:16] LABS: African American GFR (CKD) >90 (>60 ml/min/1.73 sqM); Anion Gap 3 mmol/L; Blood Urea Nitrogen 4 mg/dL (7-17); Calcium 7.8 mg/dL (8.4-10.2); Carbon Dioxide 24 mmol/L (22-30); Chloride 104 mmol/L (98-107); Glucose 112 mg/dL (74-99); Non-African American GFR(CKD) >90 (>60 ml/min/1.73 sqM); Potassium 3.4 mmol/L (3.5-5.1); Sodium 131 mmol/L (137-145)
[2020-11-29] MEDS: APIXABAN 5 MG TAB PO SCH ×2 (09:16→20:08)
[2020-11-29] MEDS: FUROSEMIDE 20 MG TAB PO SCH (09:16)
[2020-11-29] MEDS: METOPROLOL TARTRATE 25 MG TAB PO SCH ×2 (09:16→20:08)
[2020-11-29] MEDS: ASPIRIN 81 MG PO SCH (09:16)
[2020-11-29 09:21] LABS: Basophils % (A) 1 %; Eosinophils # (A) 0.3 k/uL (0-0.7); Eosinophils % (A) 6 %; HCT 30.6 % (34.0-46.0); Lymphocytes # (A) 1.9 k/uL (1.0-4.8); Lymphocytes % (A) 43 %; MCH 30.4 pg (25.0-35.0); MCHC 32.6 g/dL (31.0-37.0); MCV 93.2 fL (80.0-100.0); Mean Platelet Volume 8.2; Monocytes # (A) 0.5 k/uL (0-1.0); Monocytes % (A) 12 %; Neutrophils # (A) 1.5 k/uL (1.3-7.7); Neutrophils % (A) 35 %; Platelet Count 254 k/uL (150-450); RBC 3.28 m/uL (3.80-5.40); WBC 4.4 k/uL (3.8-10.6)
--- NOTE | 2020-11-29 11:42 | P.PN ---
Subjective Progress Note Date: 11/28/20 Principal diagnosis: Abdominal pain at the incision site New onset atrial fibrillation with rapid ventricular rate. 74-year-old female with a past medical history significant for hypertension, hypothyroidism, hyperlipidemia, and non-ischemic cardiomyopathy. History of diverticulitis with mesenteric abscess and revision was not partial small bowel obstruction in this patient who status post sigmoid colectomy and end colostomy and lysis of condition completed on 07/10/2020. Recently on 10/26/20 underwent reversal colostomy with Dr. Burt. Patient was found to be in new onset atrial fibrillation. Patient presents emergency department with worsening abdominal pain, nausea, vomiting that started yesterday morning around 10 AM. Patient states after surgery she was doing well until yesterday when her symptoms started. She does endorse palpitations. Denies chest pain, shortness of breath, lightheadedness, dizziness. On admission, second EKG patient appears to be in atrial fibrillation HR 140s. Patient was given IV Lopressor 5 mg, and started on a heparin drip. Patient was also started on metoprolol titrate 25 mg twice a day. She converted to sinus mechanism. She was also hypokalemic and was given replacement potassium. CT abdomen and pelvis revealed postsurgical changes, previous gastric surgery, previous rectal surgery. Improvement in the fat stranding over the subcutaneous fat in the lower anterior abdomen compared to old exam. No evidence of obstruction. Mild fatty infiltration of the liver. Laboratory data: WBC 6.6, hemoglobin 12, platelets 528, sodium 134, potassium 2.8, BUN 6, serum creatinine 0.5, lactate 2.3, repeat 1.2, magnesium 1.5, AST 46, ALT 15, alkaline phosphatase 207, albumin 3.1, TSH low, free T4 4.3. Current home cardiac medications include Lasix 20 mg daily. Patient's repeat EKG was sinus rhythm with PACs, heart rate 96, T wave inversions in lead V2, V3 which is not new from EKG in 07/2020. 11/26/2020 Patient is seen and evaluated in room at bedside; continues to complain of lower abdominal pain Vital signs are reviewed and stable with a temperature of 97.9, pulse 85, respirations 19 and blood pressure 122/57 Labs are reviewed and reveal a sudden drop in hemoglobin down to 9.5 from 12 on admission; WBC is 7.8; chemical profile is stable with sodium 134, potassium 4.6, BUN/creatinine of 4/0.54; UA is positive Patient has had acute drop in hemoglobin from 12 down to 9.5; question chronic anemia; we will monitor H&H closely and continue with IV Protonix; monitor stool occult blood; we will repeat CT of the abdomen and pelvis UA is positive with pending urine culture; we will monitor CBC, pro-calcitonin and CRP and start patient on IV Rocephin 1 g daily 11/27/2020 Patient is seen and evaluated in room at bedside; continues to report pain Patient has been evaluated by surgery with repeat CT of abdomen which is unremarkable; UA did reveal infection and patient was placed on Rocephin 1 g IV daily yesterday; await final urine culture results Patient evaluated by cardiology for A. fib with RVR; IV heparin has been discontinued and patient is transitioned to oral anticoagulation; patient will remain on low-dose beta blockers 11/28/2020 Patient is resting in the bed. Still complaining of abdominal pain. Mainly at the incision site. No Nausea or Vomiting. CT Abdomen Pelvis Showed No Acute Changes. Patient Does Have a History of Colostomy Reversal. Gen. Surgery Recommends No Intervention at This Time. No Other Acute Overnight Issues. Patient Is Being Continued on Antibiotics in the Form of Ceftriaxone. Urine Culture Is Pending. Patient Underwent Evaluation with Carolyne for New Onset Atrial Fibrillation. Rate Is Controlled. On Metoprolol 25 Mg Twice a Day. Cardiology Is on Board. Current Medications Reviewed. Objective - Vital Signs Vital signs: Vital Signs Temp 98.0 F 11/28/20 16:00 Pulse 71 11/28/20 16:00 Resp 17 11/28/20 16:00 BP 159/73 11/28/20 16:00 Pulse Ox 97 11/28/20 12:00 Intake & Output 11/27/20 11/28/20 11/28/20 18:59 06:59 18:59 Intake Total 477 138 Balance 477 138 Weight 74.7 kg Intake: Oral 477 138 Other: Voiding Method Toilet Toilet Toilet # Voids 1 1 1 # Bowel Movements 1 - Exam - Exam - Constitutional General appearance: Present: average body habitus, cooperative, no acute distress - EENT Eyes: Present: anicteric sclerae, EOMI, PERRLA, normal appearance ENT: Present: hearing grossly normal, normal oropharynx Ears: bilateral: normal - Neck Neck: Present: normal ROM. Absent: lymphadenopathy, rigidity, thyromegaly Carotids: negative: bruit present Thyroid: bilateral: normal size, negative: enlarged, nodule - Respiratory Respiratory: bilateral: CTA, negative: rales, rhonchi, wheezing - Cardiovascular Rhythm: regular Heart sounds: normal: S1, S2 Abnormal Heart Sounds: Absent: systolic murmur, diastolic murmur - Gastrointestinal General gastrointestinal: Present: normal bowel sounds, soft. Absent: di stended, organomegaly, tenderness - Genitourinary Genitourinary Comment(s): deferred - Integumentary Integumentary: Present: normal turgor. Absent: jaundiced, rash, ulcer - Neurologic Neurologic: Present: CNII-XII intact. Absent: focal deficits - Musculoskeletal Musculoskeletal: Present: gait normal, strength equal bilaterally - Psychiatric Psychiatric: Present: A&O x's 3, appropriate affect, intact judgment & insight - Labs CBC & Chem 7: 11/29/20 08:23 11/29/20 08:23 Assessment and Plan Assessment: 1. Abdominal pain/nausea/vomiting - History of diverticulitis with mesenteric abscess and revision was not partial small bowel obstruction in this patient who status post sigmoid colectomy and end colostomy and lysis of condition completed on 07/10/2020. Recently on 10/26/20 underwent reversal colostomy with Dr. Burt. -General surgery is following. Pain is mainly in the incision site. No surgical intervention recommended at this time. 2. New onset paroxysmal atrial fibrillation - Patient has been placed on IV heparin in ED; converted spontaneously to sinus rhythm; Patient was started on antibiotics with Eliquis. Can with metoprolol. Heart rate is controlled and patient is maintaining sinus rhythm. Cardiology is on board. 3. Elevated troponin; rule out acute coronary syndrome - Patient does have history of nonobstructive CAD with cardiomyopathy, EF 35%; continue with aspirin, beta blockers, statin therapy - Cardiology is on board. 4. Hypertension; metoprolol 25 mg twice a day 5. Hyperlipidemia; currently not on statin therapy 6. Hypothyroidism; levothyroxin 200 MCG daily 7. Electrolyte imbalance; hypokalemia/hypomagnesemia; supplemented in ED; we will monitor electrolytes closely and continue to supplement DVT prophylaxis; SCDs/subcu heparin CODE STATUS; full code Time with Patient: Greater than 30
[2020-11-29] MEDS ORDERED: Potassium Replacement Protocol 1 EACH MISC MISCELLANE PRN (12:03)
[2020-11-29] MEDS: POTASSIUM CHLORIDE ER 20 MEQ TAB.ER PO SCH ×2 (12:27→12:44)
--- NOTE | 2020-11-29 12:38 | P.PN ---
Subjective Progress Note Date: 11/29/20 CHIEF COMPLAINT: Abdominal pain HISTORY OF PRESENT ILLNESS: Patient is still complaining of the same abdominal pain. She reports her pain is mostly around her incision site. Patient had a bowel movement yesterday. She is tolerating diet. Afebrile. WBC 4.4 hemoglobin 10 sodium 131 potassium 3.4 and being replaced. creatinine 0.45 Patient seen and examined with Dr. atkins PHYSICAL EXAM: VITAL SIGNS: Reviewed. GENERAL: Well-developed in no acute distress. HEENT: No sclera icterus. Extraocular movements grossly intact. Moist buccal mucosa. Head is atraumatic, normocephalic. ABDOMEN: Soft. Nondistended. No evidence of infection incision site. NEUROLOGIC: Alert and oriented. Cranial nerves II through XII grossly intact. ASSESSMENT: 1. Chronic Abdominal pain 2. History of colostomy reversal PLAN: -No surgical intervention planned -Continue heart healthy diet -Encouraged patient to increase activity -Continue pain medication as needed. Home dose of [place] was restarted yesterday Physician Executive Candidate Developer note has been reviewed by physician. Signing provider agrees with the documented findings, assessment, and plan of care. Objective - Vital Signs Vital signs: Vital Signs Temp 98.2 F 11/29/20 08:00 Pulse 81 11/29/20 08:00 Resp 14 11/29/20 08:00 BP 125/60 11/29/20 08:00 Pulse Ox 98 11/29/20 08:00 Intake & Output 11/28/20 11/29/20 11/29/20 18:59 06:59 18:59 Intake Total 138 1200 Output Total 0 Balance 138 0 1200 Weight 74.3 kg Intake: Oral 138 1200 Output: Urine 0 Other: Voiding Method Toilet Toilet Toilet # Voids 1 1 # Bowel Movements 1 - Labs CBC & Chem 7: 11/29/20 08:23 11/29/20 08:23 Labs: Abnormal Lab Results - Last 24 Hours (Table) 11/29/20 11/29/20 Range/Units 08:23 08:23 RBC 3.28 L (3.80-5.40) m/uL Hgb 10.0 L (11.4-16.0) gm/dL Hct 30.6 L (34.0-46.0) % Sodium 131 L (137-145) mmol/L Potassium 3.4 L (3.5-5.1) mmol/L BUN 4 L (7-17) mg/dL Creatinine 0.45 L (0.52-1.04) mg/dL Glucose 112 H (74-99) mg/dL Calcium 7.8 L (8.4-10.2) mg/dL
--- NOTE | 2020-11-29 14:28 | P.PN ---
Subjective Progress Note Date: 11/29/20 HISTORY OF PRESENT ILLNESS: The patient is a 74-year-old female with past medical history of hypertension, hypothyroidism, dyslipidemia, and nonischemic cardiomyopathy, who is currently admitted to the hospital with new onset of A. fib with RVR. The patient recently underwent colostomy reversal on 10/[address] Burt. The patient had been experiencing nausea, vomiting, and palpitations. She states her palpitations have now resolved however she continues to have abdominal discomfort. 11/27/2020 The patient was interviewed and examined lying comfortably in bed. No chest pain or chest pressure. Positive for abdominal pain, which is notably worse today. No dyspnea, orthopnea, palpitations, dizziness, or lightheadedness. She states she has been up ambulating to the bathroom. 11/28/2020 Patient examined this morning at the bedside. She denies chest pain or pressure. She denies shortness of breath. Telemetry reveals sinus negative isn't. No further episodes of atrial fibrillation. Patient complains of significant abdominal pain at time of my examination. 11/29/2020 Patient examined this morning at the bedside. She denies chest pain or pressure . She denies shortness of breath. She continues to report abdominal pain but states it is improved from yesterday. Telemetry reveals sinus mechanism. PHYSICAL EXAM: VITAL SIGNS: Reviewed. GENERAL: Well-developed in no acute distress. NECK: Supple. No JVD or thyromegaly LUNGS: Respirations even and unlabored. Lungs essentially clear to auscultation bilaterally. HEART: Regular rate and rhythm. S1 and S2 heard. EXTREMITIES: Normal range of motion. No clubbing or cyanosis. Peripheral pulses intact. No lower extremity edema ASSESSMENT: New-onset paroxysmal atrial fibrillation, currently maintaining sinus mechanism Abnormal troponins, not indicative of acute coronary syndrome History of nonobstructive CAD Hypertension Hyperlipidemia Hypokalemia Hypomagnesemia Recent history of colostomy reversal PLAN: Continue current cardiac medications including aspirin 81 mg daily, lasix 20mg PO daily, Eliquis 5 mg twice a day, metoprolol tartrate 25 mg twice a day Patient is stable from a cardiac standpoint She is to follow up outpatient with Dr. Garcia (patient states she used to see Dr. Marty Caruso several years ago) We will sign off. Please reconsult if needed. Nurse practitioner note has been reviewed by physician. Signing provider agrees with the documented findings, assessment, and plan of care. Objective - Vital Signs Vital signs: Vital Signs Temp 98.1 F 11/29/20 12:00 Pulse 62 11/29/20 13:53 Resp 16 11/29/20 13:53 BP 189/82 11/29/20 12:00 Pulse Ox 98 11/29/20 12:00 Intake & Output 11/28/20 11/29/20 11/29/20 18:59 06:59 18:59 Intake Total 138 1440 Output Total 0 Balance 138 0 1440 Weight 74.3 kg Intake: Oral 138 1440 Output: Urine 0 Other: Voiding Method Toilet Toilet Toilet # Voids 1 1 # Bowel Movements 1 - Labs CBC & Chem 7: 11/29/20 08:23 11/29/20 08:23 Labs: Abnormal Lab Results - Last 24 Hours (Table) 11/29/20 11/29/20 Range/Units 08:23 08:23 RBC 3.28 L (3.80-5.40) m/uL Hgb 10.0 L (11.4-16.0) gm/dL Hct 30.6 L (34.0-46.0) % Sodium 131 L (137-145) mmol/L Potassium 3.4 L (3.5-5.1) mmol/L BUN 4 L (7-17) mg/dL Creatinine 0.45 L (0.52-1.04) mg/dL Glucose 112 H (74-99) mg/dL Calcium 7.8 L (8.4-10.2) mg/dL
[2020-11-29] MEDS: QUEtiapine 25 MG TAB PO SCH (21:56)
[2020-11-30] MEDS: MORPHINE SULFATE 4 MG/ML SYRINGE IVP PRN ×5 (04:01→20:35)
[2020-11-30] MEDS: LEVOTHYROXINE 100 MCG TAB PO SCH (06:57)
[2020-11-30] MEDS: PANTOPRAZOLE 40 MG TABLET PO SCH (06:57)
[2020-11-30] MEDS: HYDROcodone/APAP 10-325MG 1 EACH TAB PO PRN ×3 (07:00→22:10)
[2020-11-30] MEDS: APIXABAN 5 MG TAB PO SCH ×2 (08:13→20:35)
[2020-11-30] MEDS: METOPROLOL TARTRATE 25 MG TAB PO SCH ×2 (08:13→20:34)
[2020-11-30] MEDS: FUROSEMIDE 20 MG TAB PO SCH (08:13)
[2020-11-30] MEDS: ASPIRIN 81 MG PO SCH (08:13)
[2020-11-30] MEDS ORDERED: POTASSIUM CHLORIDE ER 20 MEQ TAB.ER PO SCH (09:00)
--- NOTE | 2020-11-30 11:17 | P.PN ---
Subjective Progress Note Date: 11/30/20 CHIEF COMPLAINT: Abdominal pain HISTORY OF PRESENT ILLNESS: Patient still has the same abdominal pain. She reports that her pain is slightly better today. It is better controlled with oral pain medication. She had no vomiting. She did have a bowel movement. She was found to have VRE in the urine. And will be seen by ID service. Afebrile. Potassium 3.7 PHYSICAL EXAM: VITAL SIGNS: Reviewed. GENERAL: Well-developed in no acute distress. HEENT: No sclera icterus. Extraocular movements grossly intact. Moist buccal mucosa. Head is atraumatic, normocephalic. ABDOMEN: Soft. Nondistended. No evidence of infection incision site. NEUROLOGIC: Alert and oriented. Cranial nerves II through XII grossly intact. ASSESSMENT: 1. Chronic Abdominal pain 2. History of colostomy reversal 3. UTI with VRE PLAN: -No surgical intervention planned -Continue heart healthy diet -Encouraged patient to increase activity -Continue pain medication as needed -Antibiotics per ID Physician Director Of Undergraduate Admissions note has been reviewed by physician. Signing provider agrees with the documented findings, assessment, and plan of care. Objective - Vital Signs Vital signs: Vital Signs Temp 98.1 F 11/30/20 08:00 Pulse 80 11/30/20 08:00 Resp 16 11/30/20 08:00 BP 173/75 11/30/20 08:00 Pulse Ox 98 11/30/20 08:00 Intake & Output 11/29/20 11/30/20 11/30/20 18:59 06:59 18:59 Intake Total 1677 60 Balance 1677 60 Weight 73.7 kg Intake: Oral 1677 60 Other: Voiding Method Toilet Toilet Toilet # Voids 1 1 - Labs CBC & Chem 7: 11/29/20 08:23 11/30/20 07:48 Labs: Microbiology - Last 24 Hours (Table) 11/26/20 13:22 Urine Culture - Final Urine,Voided Enterococcus faecium VRE
[2020-11-30] MEDS: DAPTOmycin 500 MG in SODIUM CHLORIDE 0.9% 50 ML IVPB SCH (14:01)
[2020-11-30] MEDS: QUEtiapine 25 MG TAB PO SCH (22:10)
--- NOTE | 2020-11-30 23:20 | P.CONS ---
History of Present Illness - Reason for Consult Consult date: 11/30/20 VRE UTI Requesting physician: Erick E Sheet - Chief Complaint Abd pain and vomiting x few days - History of Present Illness History of present illness : Patient is 75-year female with a past medical he significant for diverticulitis with mesenteric abscess in this patient status post resection and diverting colostomy completed on 07/10/2020 patient subsequently had reversal of her colostomy on 10/26/2020 there was a question of possible abdominal wall abscess however operative report did not mention that and no cultures were done subsequently patient was discharged home patient presenting back to the hospital on 11/24/2020 with worsening abdominal pain nausea and vomiting that started the day of presentation to the hospital patient is complaining of mostly dull abdominal pain intensity 5-6 over 10 with some nausea and did have 1 episode of vomiting patient denies having any chest pain did have some shortness of breath and the patient cough patient was found to be in A. fib with RVR and has been started on heparin and beta-jarod patient on admission to the hospital was afebrile and no fever was recorded subsequently patient did have a normal white count kidney function was normal patient did have a positive UA she was treated with Rocephin with urine culture finalized with the VRE antibiotic was switched to daptomycin and infectious disease was consulted for further management patient did have a 2 CT of abdominal pelvis during this admission last CAT scan was done on 11/26/2020 which shows postsurgical changes without acute abnormality seen Review of system: CONSTITUTIONAL: Positive for weakness denies high-grade fever. EYES: No complaint. ENT: No complaint. RESPIRATORY: No complaint. CARDIOVASCULAR: No complaint. GENITOURINARY: As per history of present illness. GASTROINTESTINAL: As per history of present illness. MUSCULOSKELETAL: No complaint. INTEGUMENTARY: No complaint. PSYCHOLOGIC: No complaint. ENDOCRINE: No complaint. NEUROLOGIC: No complaint. Past medical history : Reviewed, documented below Past surgical history : Reviewed, documented below Social history: Reviewed, documented below Medications: Reviewed, as documented below GENERAL DESCRIPTION: Elderly female lying in bed, no distress. No tachypnea or accessory muscle of respiration use. HEENT: Shows Pallor , no scleral icterus. Oral mucous membrane is dry. NECK: Trachea central, no thyromegaly. LUNGS: Unlabored breathing. Decreased visit with base. No wheeze or crackle. HEART: S1, S2, regular rate and rhythm. ABDOMEN: Soft, no tenderness , guarding or rigidity EXTREMITIES: No edema of feet. SKIN: No rash, no masses palpable. NEUROLOGICAL: The patient is awake, alert, oriented x3, mood and affect normal. LABS AND RADIOLOGY: Reviewed results see below Assessment : 1-patient with a positive urine culture with VRE in this patient who did have significant urinary symptoms are symptom has been mostly abdominal in this patient who do have a complicated history of diverticulitis with abscess requiring sigmoid colectomy and recent reversal of her colostomy patient however did have 2 CT of abdominal pelvis during this admission and did not show any evidence of any abscess patient did not have any fever or elevated white count Plan: 1-we will obtain clean-catch UA straight cath if needed 2-continue the daptomycin at this point till the repeat UA is obtained 3-gentle IV fluid We will follow on clinical condition and cultures to further adjust medication if needed Thank you for this consultation we will follow the patient along with you 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 Past Surgical History: Bariatric Surgery, Bowel Resection, Cholecystectomy, Heart Catheterization, Heart Catheterization With Stent, Hysterectomy, Joint Replacement, Orthopedic Surgery Additional Past Surgical History / Comment(s): Bilateral knee replacement, left shoulder rotator cuff surgery, gastric bypass, D&C, EGD/colonoscopy, laryngeal tumor removed 30 radiation treatments about 20 years ago, Ganglion Cysts both wrists.PAIN CLINIC INJECTIONS, colostomy 06/26, Past Anesthesia/Blood Transfusion Reactions: No Reported Reaction Date of Last Stent Placement:: 2003 Past Psychological History: Anxiety, Depression, Panic Disorder Smoking Status: Former smoker Past Alcohol Use History: None Reported Past Drug Use History: None Reported - Past Family History Mother Family Medical History: Cancer, Congestive Heart Failure (CHF), Diabetes Mellitus, Hypertension Additional Family Medical History / Comment(s): Mother passed at 93. Father Family Medical History: Myocardial Infarction ([place]) Additional Family Medical History / Comment(s): Father of a [place] at the age of 39 yrs. Sister(s) Family Medical History: Cancer Brother(s) Family Medical History: Cancer, Myocardial Infarction ([place]) Medications and Allergies Home Medications Medication Instructions Recorded Confirmed Type Levothyroxine Sodium [Synthroid] 200 mcg PO DAILY 01/12/19 11/25/20 History Ondansetron Odt [Zofran ODT] 4 mg PO Q8HR PRN #10 tab 09/23/20 11/25/20 Rx Pantoprazole [Protonix] 40 mg PO DAILY 30 Days #30 tab 09/26/20 11/25/20 Rx QUEtiapine FUMARATE [SEROquel] 25 mg PO HS 30 Days #30 tab 09/26/20 11/25/20 Rx Furosemide [Lasix] 20 mg PO DAILY 10/20/20 11/25/20 History LORazepam [Ativan] 0.25 mg PO BID PRN 11/25/20 11/25/20 History Apixaban [Eliquis] 5 mg PO BID #60 tab 11/28/20 Rx Allergies Allergy/AdvReac Type Severity Reaction Status Date / Time latex Allergy Unknown Verified 11/25/20 06:48 vancomycin Allergy Rash/Hives Verified 11/25/20 06:48 Physical Exam Vitals: Vital Signs Temp Pulse Resp BP Pulse Ox 11/30/20 17:26 70 116/57 11/30/20 17:10 72 20 164/80 99 11/30/20 16:04 98.4 F 68 16 119/55 98 11/30/20 13:20 65 16 11/30/20 11:14 65 16 130/60 98 11/30/20 08:00 98.1 F 80 16 173/75 98 11/30/20 03:55 97.7 F 72 18 134/75 97 11/30/20 02:30 19 11/29/20 23:55 98 F 65 19 148/79 98 Intake and Output 11/30/20 11/30/20 11/30/20 06:59 14:59 22:59 Intake Total 60 0 Balance 60 0 Intake: Oral 60 0 Other: Voiding Method Toilet Toilet # Voids 1 1 1 Weight 73.7 kg Results CBC & Chem 7: 11/29/20 08:23 11/30/20 07:48 Labs: Microbiology - Last 24 Hours (Table) 11/26/20 13:22 Urine Culture - Final Urine,Voided Enterococcus faecium VRE
[2020-12-01] MEDS: MORPHINE SULFATE 4 MG/ML SYRINGE IVP PRN ×6 (00:26→18:07)
[2020-12-01 04:13] LABS: Appearance,Urine Clear (Clear); Bilirubin,Urine Negative (Negative); Blood,Urine Negative (Negative); Color,Urine Yellow; Glucose,Urine (UA) Negative (Negative); Hyaline Casts,Urine 5 /lpf (0-2); Ketones,Urine Negative (Negative); Leukocyte Esterase,Urine Trace (Negative); Mucus,Urine Rare /hpf; Nitrite,Urine Negative (Negative); PH, Urine 7.5 (5.0-8.0); Protein,Urine Trace (Negative); RBC,Urine 1 /hpf (0-5); Specific Gravity,Urine 1.015 (1.001-1.035); Squamous Epithelial Cell,Urine 2 /hpf (0-4); Urobilinogen,Urine <2.0 mg/dL (<2.0); WBC,Urine 4 /hpf (0-5)
[2020-12-01] MEDS: PANTOPRAZOLE 40 MG TABLET PO SCH (06:48)
[2020-12-01] MEDS: LEVOTHYROXINE 100 MCG TAB PO SCH (06:48)
[2020-12-01] MEDS: HYDROcodone/APAP 10-325MG 1 EACH TAB PO PRN ×3 (08:52→23:14)
[2020-12-01] MEDS: ASPIRIN 81 MG PO SCH (08:52)
[2020-12-01] MEDS: APIXABAN 5 MG TAB PO SCH ×2 (08:52→19:56)
[2020-12-01] MEDS: FUROSEMIDE 20 MG TAB PO SCH (08:52)
[2020-12-01] MEDS: METOPROLOL TARTRATE 25 MG TAB PO SCH ×2 (08:52→19:56)
--- NOTE | 2020-12-01 11:07 | P.PN ---
Subjective Progress Note Date: 12/01/20 CHIEF COMPLAINT: Abdominal pain HISTORY OF PRESENT ILLNESS: Patient still has the same abdominal pain. She denies any nausea or vomiting. She is having bowel movements. She is tolerating diet. She has VRE in the urine and was seen by infectious disease. Afebrile. PHYSICAL EXAM: VITAL SIGNS: Reviewed. GENERAL: Well-developed in no acute distress. HEENT: No sclera icterus. Extraocular movements grossly intact. Moist buccal mucosa. Head is atraumatic, normocephalic. ABDOMEN: Soft. Nondistended. No evidence of infection incision site. NEUROLOGIC: Alert and oriented. Cranial nerves II through XII grossly intact. ASSESSMENT: 1. Chronic Abdominal pain 2. History of colostomy reversal 3. UTI with VRE PLAN: -No surgical intervention planned -Patient can be discharged from surgical standpoint -Continue heart healthy diet -Encouraged patient to increase activity -Continue pain medication as needed -Antibiotics per ID Physician Remote [employer] Underwriter note has been reviewed by physician. Signing provider agrees with the documented findings, assessment, and plan of care. Objective - Vital Signs Vital signs: Vital Signs Temp 97.8 F 12/01/20 08:00 Pulse 82 12/01/20 08:00 Resp 16 12/01/20 08:00 BP 132/61 12/01/20 08:00 Pulse Ox 97 12/01/20 08:00 Intake & Output 11/30/20 12/01/20 12/01/20 18:59 06:59 18:59 Intake Total 60 120 Output Total 50 Balance 60 -50 120 Weight 73.1 kg Intake: Oral 60 120 Output: Urine 50 Other: Voiding Method Toilet Toilet Toilet # Voids 1 1 - Labs CBC & Chem 7: 11/29/20 08:23 11/30/20 07:48 Labs: Abnormal Lab Results - Last 24 Hours (Table) 12/01/20 12/01/20 Range/Units 07:11 Unknown C-Reactive Protein 1.7 H (<1.0) mg/dL Urine Protein Trace H (Negative) Ur Leukocyte Esterase Trace H (Negative) Hyaline Casts 5 H (0-2) /lpf Urine Mucus Rare H (None) /hpf
[2020-12-01] MEDS: DAPTOmycin 500 MG in SODIUM CHLORIDE 0.9% 50 ML IVPB SCH (14:04)
[2020-12-01 14:38] VITALS: BMI 28.5
--- NOTE | 2020-12-01 18:07 | PN ---
PROGRESS NOTE DATE OF SERVICE: 12/01/2020 REASON FOR FOLLOWUP: VRE urinary tract infection. INTERVAL HISTORY: The patient is afebrile. The patient is breathing comfortably. Still complaining of abdominal pain. No vomiting, though. No chest pain, shortness of breath or cough. PHYSICAL EXAMINATION: Blood pressure 127/58 with a pulse of 60, temperature 97.9. She is 97% on room air. GENERAL DESCRIPTION: General description is an elderly female lying in bed in no distress. RESPIRATORY SYSTEM: Unlabored breathing. Clear to auscultation anteriorly. HEART: S1, S2. Regular rate and rhythm. ABDOMEN: Soft. No tenderness. LABS: Reviewed. DIAGNOSTIC IMPRESSION AND PLAN: Patient with VRE positive urine cultures. Repeat urine culture has been ordered, but not collected yet. Patient to continue daptomycin , while waiting for the repeat urine to finalize and monitor clinical course closely. MMODL / IJN: [id number] / MTDD
[2020-12-01 18:19] LABS: Appearance,Urine Cloudy (Clear); Bilirubin,Urine Negative (Negative); Blood,Urine Negative (Negative); Color,Urine Yellow; Glucose,Urine (UA) Negative (Negative); Hyaline Casts,Urine 3 /lpf (0-2); Ketones,Urine Negative (Negative); Leukocyte Esterase,Urine Negative (Negative); Nitrite,Urine Negative (Negative); PH, Urine 7.5 (5.0-8.0); Protein,Urine Negative (Negative); RBC,Urine 1 /hpf (0-5); Specific Gravity,Urine 1.011 (1.001-1.035); Squamous Epithelial Cell,Urine 1 /hpf (0-4); Urobilinogen,Urine <2.0 mg/dL (<2.0); WBC,Urine 1 /hpf (0-5)
[2020-12-01] MEDS: QUEtiapine 25 MG TAB PO SCH (19:56)
[2020-12-02] MEDS: MORPHINE SULFATE 4 MG/ML SYRINGE IVP PRN ×3 (00:18→10:30)
[2020-12-02] MEDS: LEVOTHYROXINE 100 MCG TAB PO SCH (06:09)
[2020-12-02] MEDS: PANTOPRAZOLE 40 MG TABLET PO SCH (06:09)
[2020-12-02] MEDS: APIXABAN 5 MG TAB PO SCH (09:40)
[2020-12-02] MEDS: ASPIRIN 81 MG PO SCH (09:40)
[2020-12-02] MEDS: METOPROLOL TARTRATE 25 MG TAB PO SCH (09:40)
[2020-12-02] MEDS: FUROSEMIDE 20 MG TAB PO SCH (09:41)
--- NOTE | 2020-12-02 11:12 | P.PN ---
Subjective Progress Note Date: 12/02/20 CHIEF COMPLAINT: Abdominal pain HISTORY OF PRESENT ILLNESS: Patient still has the same chronic abdominal pain. She denies any nausea or vomiting. She is having bowel movements. She is tolerating diet. She has VRE in the urine and was seen by infectious disease. Afebrile. PHYSICAL EXAM: VITAL SIGNS: Reviewed. GENERAL: Well-developed in no acute distress. HEENT: No sclera icterus. Extraocular movements grossly intact. Moist buccal mucosa. Head is atraumatic, normocephalic. ABDOMEN: Soft. Nondistended. No evidence of infection incision site. NEUROLOGIC: Alert and oriented. Cranial nerves II through XII grossly intact. ASSESSMENT: 1. Chronic Abdominal pain 2. History of colostomy reversal 3. UTI with VRE PLAN: -No surgical intervention planned -Patient can be discharged from surgical standpoint -Continue heart healthy diet -Encouraged patient to increase activity -Continue pain medication as needed -Antibiotics per ID Physician Director Surface Transportation note has been reviewed by physician. Signing provider agrees with the documented findings, assessment, and plan of care. Objective - Vital Signs Vital signs: Vital Signs Temp 98.1 F 12/02/20 04:00 Pulse 72 12/02/20 04:00 Resp 17 12/02/20 04:00 BP 146/65 12/02/20 04:00 Pulse Ox 97 12/02/20 04:00 Intake & Output 12/01/20 12/02/20 12/02/20 18:59 06:59 18:59 Intake Total 840 240 Output Total 500 Balance 840 -500 240 Weight 73.1 kg 72.8 kg Intake: Oral 840 240 Output: Urine 500 Other: Voiding Method Toilet Toilet # Voids 1 - Labs CBC & Chem 7: 11/29/20 08:23 11/30/20 07:48 Labs: Abnormal Lab Results - Last 24 Hours (Table) 12/01/20 Range/Units 18:06 Urine Appearance Cloudy H (Clear) Hyaline Casts 3 H (0-2) /lpf
[2020-12-02 11:22] VITALS: BP 143/65; RESP 18
[2020-12-02] MEDS: HYDROcodone/APAP 10-325MG 1 EACH TAB PO PRN (13:59)
--- NOTE | 2020-12-02 14:13 | PN ---
PROGRESS NOTE DATE OF SERVICE: 12/02/2020 REASON FOR FOLLOWUP: VRE urinary tract infection. INTERVAL HISTORY: The patient is currently afebrile. The patient is breathing comfortably. The patient is still complaining of abdominal pain. Some nausea but no vomiting. No diarrhea. No urinary symptoms. PHYSICAL EXAMINATION: Blood pressure 146/65 with a pulse of 77, temperature 98. She is 97% on room air. GENERAL DESCRIPTION: General description is an elderly female lying in bed in no distress. RESPIRATORY SYSTEM: Unlabored breathing. Clear to auscultation anteriorly. HEART: S1, S2. Regular rate and rhythm. ABDOMEN: Soft. No tenderness. LABS: Repeat urine is negative. DIAGNOSTIC IMPRESSION: Patient with a VRE-positive urine culture, possible contaminant versus mild cystitis, adequately treated. Repeat urine is negative. Continue daptomycin. Monitor the patient closely off antibiotic therapy. MMODL / IJN: [id number] /
[2020-12-02 14:54] VITALS: PULSE 80; TEMP 98.1
[2020-12-02] MEDS: DAPTOmycin 500 MG in SODIUM CHLORIDE 0.9% 50 ML IVPB SCH (15:43)
--- NOTE | 2020-12-21 22:14 | P.PN ---
Subjective Progress Note Date: 11/29/20 Principal diagnosis: Abdominal pain at the incision site New onset atrial fibrillation with rapid ventricular rate. 74-year-old female with a past medical history significant for hypertension, hypothyroidism, hyperlipidemia, and non-ischemic cardiomyopathy. History of diverticulitis with mesenteric abscess and revision was not partial small bowel obstruction in this patient who status post sigmoid colectomy and end colostomy and lysis of condition completed on 07/10/2020. Recently on 10/26/20 underwent reversal colostomy with Dr. Burt. Patient was found to be in new onset atrial fibrillation. Patient presents emergency department with worsening abdominal pain, nausea, vomiting that started yesterday morning around 10 AM. Patient states after surgery she was doing well until yesterday when her symptoms started. She does endorse palpitations. Denies chest pain, shortness of breath, lightheadedness, dizziness. On admission, second EKG patient appears to be in atrial fibrillation HR 140s. Patient was given IV Lopressor 5 mg, and started on a heparin drip. Patient was also started on metoprolol titrate 25 mg twice a day. She converted to sinus mechanism. She was also hypokalemic and was given replacement potassium. CT abdomen and pelvis revealed postsurgical changes, previous gastric surgery, previous rectal surgery. Improvement in the fat stranding over the subcutaneous fat in the lower anterior abdomen compared to old exam. No evidence of obstruction. Mild fatty infiltration of the liver. Laboratory data: WBC 6.6, hemoglobin 12, platelets 528, sodium 134, potassium 2.8, BUN 6, serum creatinine 0.5, lactate 2.3, repeat 1.2, magnesium 1.5, AST 46, ALT 15, alkaline phosphatase 207, albumin 3.1, TSH low, free T4 4.3. Current home cardiac medications include Lasix 20 mg daily. Patient's repeat EKG was sinus rhythm with PACs, heart rate 96, T wave inversions in lead V2, V3 which is not new from EKG in 07/2020. 11/26/2020 Patient is seen and evaluated in room at bedside; continues to complain of lower abdominal pain Vital signs are reviewed and stable with a temperature of 97.9, pulse 85, respirations 19 and blood pressure 122/57 Labs are reviewed and reveal a sudden drop in hemoglobin down to 9.5 from 12 on admission; WBC is 7.8; chemical profile is stable with sodium 134, potassium 4.6, BUN/creatinine of 4/0.54; UA is positive Patient has had acute drop in hemoglobin from 12 down to 9.5; question chronic anemia; we will monitor H&H closely and continue with IV Protonix; monitor stool occult blood; we will repeat CT of the abdomen and pelvis UA is positive with pending urine culture; we will monitor CBC, pro-calcitonin and CRP and start patient on IV Rocephin 1 g daily 11/27/2020 Patient is seen and evaluated in room at bedside; continues to report pain Patient has been evaluated by surgery with repeat CT of abdomen which is unremarkable; UA did reveal infection and patient was placed on Rocephin 1 g IV daily yesterday; await final urine culture results Patient evaluated by cardiology for A. fib with RVR; IV heparin has been discontinued and patient is transitioned to oral anticoagulation; patient will remain on low-dose beta blockers 11/28/2020 Patient is resting in the bed. Still complaining of abdominal pain. Mainly at the incision site. No Nausea or Vomiting. CT Abdomen Pelvis Showed No Acute Changes. Patient Does Have a History of Colostomy Reversal. Gen. Surgery Recommends No Intervention at This Time. No Other Acute Overnight Issues. Patient Is Being Continued on Antibiotics in the Form of Ceftriaxone. Urine Culture Is Pending. Patient Underwent Evaluation with Eliquis for New Onset Atrial Fibrillation. Rate Is Controlled. On Metoprolol 25 Mg Twice a Day. Cardiology Is on Board. 11/29/2020 Patient is currently resting in the bed. Still complains of abdominal pain mainly around the previous ostomy site. No complaints of chest pain or shortness of breath. Currently maintaining sinus rhythm. On anticoagulation with Eliquis. Patient is otherwise tolerating oral diet. Afebrile. Laboratory data showed WBC 4.4 hemoglobin 10 and sodium 131 potassium 3.4 which is being replaced. Renal function is stable with creatinine of 0.45. General surgery recommends no surgical intervention at this time. Cardiology and general surgery is on board. Current Medications Reviewed. Objective - Vital Signs Vital signs: Vital Signs Temp 97.7 F 11/29/20 20:45 Pulse 68 11/29/20 20:45 Resp 18 11/29/20 20:45 BP 145/63 11/29/20 20:45 Pulse Ox 100 11/29/20 20:45 Intake & Output 11/29/20 11/29/20 11/30/20 06:59 18:59 06:59 Intake Total 1677 Output Total 0 Balance 0 1677 Weight 74.3 kg Intake: Oral 1677 Output: Urine 0 Other: Voiding Method Toilet Toilet Toilet # Voids 1 1 - Exam - Exam - Constitutional General appearance: Present: average body habitus, cooperative, no acute distress - EENT Eyes: Present: anicteric sclerae, EOMI, PERRLA, normal appearance ENT: Present: hearing grossly normal, normal oropharynx Ears: bilateral: normal - Neck Neck: Present: normal ROM. Absent: lymphadenopathy, rigidity, thyromegaly Carotids: negative: bruit present Thyroid: bilateral: normal size, negative: enlarged, nodule - Respiratory Respiratory: bilateral: CTA, negative: rales, rhonchi, wheezing - Cardiovascular Rhythm: regular Heart sounds: normal: S1, S2 Abnormal Heart Sounds: Absent: systolic murmur, diastolic murmur - Gastrointestinal General gastrointestinal: Present: normal bowel sounds, soft. Absent: distended, organomegaly, tenderness - Genitourinary Genitourinary Comment(s): deferred - Integumentary Integumentary: Present: normal turgor. Absent: jaundiced, rash, ulcer - Neurologic Neurologic: Present: CNII-XII intact. Absent: focal deficits - Musculoskeletal Musculoskeletal: Present: gait normal, strength equal bilaterally - Psychiatric Psychiatric: Present: A&O x's 3, appropriate affect, intact judgment & insight - Labs CBC & Chem 7: 11/29/20 08:23 11/30/20 07:48 Labs: Abnormal Lab Results - Last 24 Hours (Table) 11/29/20 11/29/20 Range/Units 08:23 08:23 RBC 3.28 L (3.80-5.40) m/uL Hgb 10.0 L (11.4-16.0) gm/dL Hct 30.6 L (34.0-46.0) % Sodium 131 L (137-145) mmol/L Potassium 3.4 L (3.5-5.1) mmol/L BUN 4 L (7-17) mg/dL Creatinine 0.45 L (0.52-1.04) mg/dL Glucose 112 H (74-99) mg/dL Calcium 7.8 L (8.4-10.2) mg/dL Microbiology - Last 24 Hours (Table) 11/26/20 13:22 Urine Culture - Final Urine,Voided Enterococcus faecium VRE Assessment and Plan Assessment: 1. Abdominal pain. Nausea vomiting improved. - History of diverticulitis with mesenteric abscess and revision was not partial small bowel obstruction in this patient who status post sigmoid colectomy and end colostomy and lysis of condition completed on 07/10/2020. Recently on 10/26/20 underwent reversal colostomy with Dr. Burt. -General surgery is following. Pain is mainly in the incision site. No surgical intervention recommended at this time. 2. New onset paroxysmal atrial fibrillation - Patient has been placed on IV heparin in ED; converted spontaneously to sinus rhythm; Patient was started on Eliquis. continue with metoprolol. Heart rate is controlled and patient is maintaining sinus rhythm. Cardiology is on board. 3. Elevated troponin; rule out acute coronary syndrome - Patient does have history of nonobstructive CAD with cardiomyopathy, EF 35%; continue with aspirin, beta blockers, statin therapy - Cardiology is on board. 4. Hypertension; metoprolol 25 mg twice a day 5. Hyperlipidemia; currently not on statin therapy 6. Hypothyroidism; levothyroxin 200 MCG daily 7. Electrolyte imbalance; hypokalemia/hypomagnesemia; supplemented in ED; we will monitor electrolytes closely and continue to supplement DVT prophylaxis; SCDs/subcu heparin CODE STATUS; full code
--- NOTE | 2020-12-21 22:16 | P.PN ---
Subjective Progress Note Date: 11/30/20 Principal diagnosis: Abdominal pain at the incision site New onset atrial fibrillation with rapid ventricular rate. 74-year-old female with a past medical history significant for hypertension, hypothyroidism, hyperlipidemia, and non-ischemic cardiomyopathy. History of diverticulitis with mesenteric abscess and revision was not partial small bowel obstruction in this patient who status post sigmoid colectomy and end colostomy and lysis of condition completed on 07/10/2020. Recently on 10/26/20 underwent reversal colostomy with Dr. Burt. Patient was found to be in new onset atrial fibrillation. Patient presents emergency department with worsening abdominal pain, nausea, vomiting that started yesterday morning around 10 AM. Patient states after surgery she was doing well until yesterday when her symptoms started. She does endorse palpitations. Denies chest pain, shortness of breath, lightheadedness, dizziness. On admission, second EKG patient appears to be in atrial fibrillation HR 140s. Patient was given IV Lopressor 5 mg, and started on a heparin drip. Patient was also started on metoprolol titrate 25 mg twice a day. She converted to sinus mechanism. She was also hypokalemic and was given replacement potassium. CT abdomen and pelvis revealed postsurgical changes, previous gastric surgery, previous rectal surgery. Improvement in the fat stranding over the subcutaneous fat in the lower anterior abdomen compared to old exam. No evidence of obstruction. Mild fatty infiltration of the liver. Laboratory data: WBC 6.6, hemoglobin 12, platelets 528, sodium 134, potassium 2.8, BUN 6, serum creatinine 0.5, lactate 2.3, repeat 1.2, magnesium 1.5, AST 46, ALT 15, alkaline phosphatase 207, albumin 3.1, TSH low, free T4 4.3. Current home cardiac medications include Lasix 20 mg daily. Patient's repeat EKG was sinus rhythm with PACs, heart rate 96, T wave inversions in lead V2, V3 which is not new from EKG in 07/2020. 11/26/2020 Patient is seen and evaluated in room at bedside; continues to complain of lower abdominal pain Vital signs are reviewed and stable with a temperature of 97.9, pulse 85, respirations 19 and blood pressure 122/57 Labs are reviewed and reveal a sudden drop in hemoglobin down to 9.5 from 12 on admission; WBC is 7.8; chemical profile is stable with sodium 134, potassium 4.6, BUN/creatinine of 4/0.54; UA is positive Patient has had acute drop in hemoglobin from 12 down to 9.5; question chronic anemia; we will monitor H&H closely and continue with IV Protonix; monitor stool occult blood; we will repeat CT of the abdomen and pelvis UA is positive with pending urine culture; we will monitor CBC, pro-calcitonin and CRP and start patient on IV Rocephin 1 g daily 11/27/2020 Patient is seen and evaluated in room at bedside; continues to report pain Patient has been evaluated by surgery with repeat CT of abdomen which is unremarkable; UA did reveal infection and patient was placed on Rocephin 1 g IV daily yesterday; await final urine culture results Patient evaluated by cardiology for A. fib with RVR; IV heparin has been discontinued and patient is transitioned to oral anticoagulation; patient will remain on low-dose beta blockers 11/28/2020 Patient is resting in the bed. Still complaining of abdominal pain. Mainly at the incision site. No Nausea or Vomiting. CT Abdomen Pelvis Showed No Acute Changes. Patient Does Have a History of Colostomy Reversal. Gen. Surgery Recommends No Intervention at This Time. No Other Acute Overnight Issues. Patient Is Being Continued on Antibiotics in the Form of Ceftriaxone. Urine Culture Is Pending. Patient Underwent Evaluation with Eliquis for New Onset Atrial Fibrillation. Rate Is Controlled. On Metoprolol 25 Mg Twice a Day. Cardiology Is on Board. 11/29/2020 Patient is currently resting in the bed. Still complains of abdominal pain mainly around the previous ostomy site. No complaints of chest pain or shortness of breath. Currently maintaining sinus rhythm. On anticoagulation with Eliquis. Patient is otherwise tolerating oral diet. Afebrile. Laboratory data showed WBC 4.4 hemoglobin 10 and sodium 131 potassium 3.4 which is being replaced. Renal function is stable with creatinine of 0.45. General surgery recommends no surgical intervention at this time. Cardiology and general surgery is on board. 11/30/2020 Patient is currently lying in the bed awake alert oriented x3. Abdominal pain is stable. Otherwise urine cultures are positive for VRE. Patient does not have any urinary symptoms. Patient was started on daptomycin due to VRE. Currently on gentle IV hydration. Repeat UA was ordered. ID was consulted. Otherwise patient is currently maintaining sinus rhythm. Continued on anticoagulation with Eliquis. Current Medications Reviewed. Objective - Vital Signs Vital signs: Vital Signs Temp 98.4 F 11/30/20 16:04 Pulse 68 11/30/20 16:04 Resp 16 11/30/20 16:04 BP 119/55 11/30/20 16:04 Pulse Ox 98 11/30/20 16:04 Intake & Output 11/29/20 11/30/20 11/30/20 18:59 06:59 18:59 Intake Total 1677 60 Balance 1677 60 Weight 73.7 kg Intake: Oral 1677 60 Other: Voiding Method Toilet Toilet Toilet # Voids 1 1 - Exam - Exam - Constitutional General appearance: Present: average body habitus, cooperative, no acute distress - EENT Eyes: Present: anicteric sclerae, EOMI, PERRLA, normal appearance ENT: Present: hearing grossly normal, normal oropharynx Ears: bilateral: normal - Neck Neck: Present: normal ROM. Absent: lymphadenopathy, rigidity, thyromegaly Carotids: negative: bruit present Thyroid: bilateral: normal size, negative: enlarged, nodule - Respiratory Respiratory: bilateral: CTA, negative: rales, rhonchi, wheezing - Cardiovascular Rhythm: regular Heart sounds: normal: S1, S2 Abnormal Heart Sounds: Absent: systolic murmur, diastolic murmur - Gastrointestinal General gastrointestinal: Present: normal bowel sounds, soft. Absent: distended, organomegaly, tenderness - Genitourinary Genitourinary Comment(s): deferred - Integumentary Integumentary: Present: normal turgor. Absent: jaundiced, rash, ulcer - Neurologic Neurologic: Present: CNII-XII intact. Absent: focal deficits - Musculoskeletal Musculoskeletal: Present: gait normal, strength equal bilaterally - Psychiatric Psychiatric: Present: A&O x's 3, appropriate affect, intact judgment & insight - Labs CBC & Chem 7: 11/29/20 08:23 11/30/20 07:48 Labs: Microbiology - Last 24 Hours (Table) 11/26/20 13:22 Urine Culture - Final Urine,Voided Enterococcus faecium VRE Assessment and Plan Assessment: 1. Abdominal pain. Nausea vomiting improved. - History of diverticulitis with mesenteric abscess and revision was not partial small bowel obstruction in this patient who status post sigmoid colectomy and end colostomy and lysis of condition completed on 07/10/2020. Recently on 10/26/20 underwent reversal colostomy with Dr. Burt. -General surgery is following. Pain is mainly in the incision site. No surgical intervention recommended at this time. 2. New onset paroxysmal atrial fibrillation - Patient has been placed on IV heparin in ED; converted spontaneously to sinus rhythm; Patient was started on Eliquis. continue with metoprolol. Heart rate is controlled and patient is maintaining sinus rhythm. Cardiology is on board. 3. Elevated troponin; rule out acute coronary syndrome - Patient does have history of nonobstructive CAD with cardiomyopathy, EF 35%; continue with aspirin, beta blockers, statin therapy - Cardiology is on board. 4. Urinary tract infection. Urine culture showed VRE. Continue on daptomycin. ID is on board. 4. Hypertension; metoprolol 25 mg twice a day 5. Hyperlipidemia; currently not on statin therapy 6. Hypothyroidism; levothyroxin 200 MCG daily 7. Electrolyte imbalance; hypokalemia/hypomagnesemia; supplemented in ED; we will monitor electrolytes closely and continue to supplement DVT prophylaxis; SCDs/subcu heparin CODE STATUS; full code
--- NOTE | 2020-12-21 22:19 | P.DS ---
Providers Date of admission: 11/29/20 08:01 Expected date of discharge: 12/02/20 Attending physician: Compa Medina Consults: 11/25/20 01:20 Consult Physician Routine Consulting Provider: Phil Burt Consult Reason/Comments: rebecca Simms Do you want consulting provider notified?: Yes 11/30/20 09:03 Consult Physician Urgent Consulting Provider: Doyle Lawson Consult Reason/Comments: VRE in the urine Do you want consulting provider notified?: Yes Primary care physician: Courtney Cook Hospital Course: Discharge diagnosis 1. Abdominal pain. Nausea vomiting improved. - History of diverticulitis with mesenteric abscess and revision was not partial small bowel obstruction in this patient who status post sigmoid colectomy and end colostomy and lysis of condition completed on 07/10/2020. Recently on 10/26/20 underwent reversal colostomy with Dr. Burt. -General surgery is following. Pain is mainly in the incision site. No surgical intervention recommended at this time. 2. New onset paroxysmal atrial fibrillation - Patient has been placed on IV heparin in ED; converted spontaneously to sinus rhythm; Patient was started on Eliquis. continue with metoprolol. Heart rate is controlled and patient is maintaining sinus rhythm. Cardiology is on board. 3. Elevated troponin; rule out acute coronary syndrome - Patient does have history of nonobstructive CAD with cardiomyopathy, EF 35%; continue with aspirin, beta blockers, statin therapy - Cardiology is on board. 4. Urinary tract infection. Urine culture showed VRE. Continued on daptomycin. Patient was seen by ID. Repeat UA is negative. No further antibiotic course recommended. 4. Hypertension; metoprolol 25 mg twice a day 5. Hyperlipidemia; currently not on statin therapy 6. Hypothyroidism; levothyroxin 200 MCG daily 7. Electrolyte imbalance; hypokalemia/hypomagnesemia; supplemented in ED; we will monitor electrolytes closely and continued to supplement DVT prophylaxis; SCDs/subcu heparin Hospital course 74-year-old female with a past medical history significant for hypertension, hypothyroidism, hyperlipidemia, and non-ischemic cardiomyopathy. History of diverticulitis with mesenteric abscess and revision was not partial small bowel obstruction in this patient who status post sigmoid colectomy and end colostomy and lysis of condition completed on 07/10/2020. Recently on 10/26/20 underwent reversal colostomy with Dr. Burt. Patient was found to be in new onset atrial fibrillation. Patient presents emergency department with worsening abdominal pain, nausea, vomiting that started yesterday morning around 10 AM. Patient states after surgery she was doing well until yesterday when her symptoms started. She does endorse palpitations. Denies chest pain, shortness of breath, lightheadedness, dizziness. On admission, second EKG patient appears to be in atrial fibrillation HR 140s. Patient was given IV Lopressor 5 mg, and started on a heparin drip. Patient was also started on metoprolol titrate 25 mg twice a day. She converted to sinus mechanism. She was also hypokalemic and was given replacement potassium. CT abdomen and pelvis revealed postsurgical ch anges, previous gastric surgery, previous rectal surgery. Improvement in the fat stranding over the subcutaneous fat in the lower anterior abdomen compared to old exam. No evidence of obstruction. Mild fatty infiltration of the liver. Laboratory data: WBC 6.6, hemoglobin 12, platelets 528, sodium 134, potassium 2.8, BUN 6, serum creatinine 0.5, lactate 2.3, repeat 1.2, magnesium 1.5, AST 46, ALT 15, alkaline phosphatase 207, albumin 3.1, TSH low, free T4 4.3. Current home cardiac medications include Lasix 20 mg daily. Patient's repeat EKG was sinus rhythm with PACs, heart rate 96, T wave inversions in lead V2, V3 which is not new from EKG in 07/2020. 11/26/2020 Patient is seen and evaluated in room at bedside; continues to complain of lower abdominal pain Vital signs are reviewed and stable with a temperature of 97.9, pulse 85, respirations 19 and blood pressure 122/57 Labs are reviewed and reveal a sudden drop in hemoglobin down to 9.5 from 12 on admission; WBC is 7.8; chemical profile is stable with sodium 134, potassium 4.6, BUN/creatinine of 4/0.54; UA is positive Patient has had acute drop in hemoglobin from 12 down to 9.5; question chronic anemia; we will monitor H&H closely and continue with IV Protonix; monitor stool occult blood; we will repeat CT of the abdomen and pelvis UA is positive with pending urine culture; we will monitor CBC, pro-calcitonin and CRP and start patient on IV Rocephin 1 g daily 11/27/2020 Patient is seen and evaluated in room at bedside; continues to report pain Patient has been evaluated by surgery with repeat CT of abdomen which is u nremarkable; UA did reveal infection and patient was placed on Rocephin 1 g IV daily yesterday; await final urine culture results Patient evaluated by cardiology for A. fib with RVR; IV heparin has been discontinued and patient is transitioned to oral anticoagulation; patient will remain on low-dose beta blockers 11/28/2020 Patient is resting in the bed. Still complaining of abdominal pain. Mainly at the incision site. No Nausea or Vomiting. CT Abdomen Pelvis Showed No Acute Changes. Patient Does Have a History of Colostomy Reversal. Gen. Surgery Recommends No Intervention at This Time. No Other Acute Overnight Issues. Patient Is Being Continued on Antibiotics in the Form of Ceftriaxone. Urine Culture Is Pending. Patient Underwent Evaluation with Eliquis for New Onset Atrial Fibrillation. Rate Is Controlled. On Metoprolol 25 Mg Twice a Day. Cardiology Is on Board. 11/29/2020 Patient is currently resting in the bed. Still complains of abdominal pain mainly around the previous ostomy site. No complaints of chest pain or shortness of breath. Currently maintaining sinus rhythm. On anticoagulation with Eliquis. Patient is otherwise tolerating oral diet. Afebrile. Laboratory data showed WBC 4.4 hemoglobin 10 and sodium 131 potassium 3.4 which is being replaced. Renal function is stable with creatinine of 0.45. General surgery recommends no surgical intervention at this time. Cardiology and general surgery is on board. 11/30/2020 Patient is currently lying in the bed awake alert oriented x3. Abdominal pain is stable. Otherwise urine cultures are positive for VRE. Patient does not have any urinary symptoms. Patient was started on daptomycin due to VRE. Currently on gentle IV hydration. Repeat UA was ordered. ID was consulted. Otherwise patient is currently maintaining sinus rhythm. Continued on anticoagulation with Eliquis. 12/01/2020 Patient is currently resting in the bed comfortably. Abdominal pain is slightly improved. No complaints of chest pain or shortness of. Currently maintaining sinus rhythm. Otherwise patient is being continued antibiotics in the form of daptomycin for VRE urinary tract infection. Repeat urine urinalysis showed no evidence of infection. ID is on board. Continued on symptomatic management for nausea and vomiting. Patient has been afebrile. 12/02/2020 Patient is currently resting in the bed. Awake alert oriented x3. Tolerating oral diet. Abdominal pain is still present but no evidence of abnormality is noted. Patient was on daptomycin for urinary tract infection due to VRE. Repeat urinalysis is negative for infection. ID recommends no antibiotics upon discharge. - Exam - Constitutional General appearance: Present: average body habitus, cooperative, no acute distre ss - EENT Eyes: Present: anicteric sclerae, EOMI, PERRLA, normal appearance ENT: Present: hearing grossly normal, normal oropharynx Ears: bilateral: normal - Neck Neck: Present: normal ROM. Absent: lymphadenopathy, rigidity, thyromegaly Carotids: negative: bruit present Thyroid: bilateral: normal size, negative: enlarged, nodule - Respiratory Respiratory: bilateral: CTA, negative: rales, rhonchi, wheezing - Cardiovascular Rhythm: regular Heart sounds: normal: S1, S2 Abnormal Heart Sounds: Absent: systolic murmur, diastolic murmur - Gastrointestinal General gastrointestinal: Present: normal bowel sounds, soft. Absent: distended, organomegaly, tenderness - Genitourinary Genitourinary Comment(s): deferred - Integumentary Integumentary: Present: normal turgor. Absent: jaundiced, rash, ulcer - Neurologic Neurologic: Present: CNII-XII intact. Absent: focal deficits - Musculoskeletal Musculoskeletal: Present: gait normal, strength equal bilaterally - Psychiatric Psychiatric: Present: A&O x's 3, appropriate affect, intact judgment & insight Vital signs: Vital Signs Temp 98.1 F 12/02/20 04:00 Pulse 72 12/02/20 04:00 Resp 17 12/02/20 04:00 BP 146/65 12/02/20 04:00 Pulse Ox 97 12/02/20 04:00 Intake & Output 12/01/20 12/02/20 12/02/20 18:59 06:59 18:59 Intake Total 840 240 Output Total 500 Balance 840 -500 240 Weight 73.1 kg 72.8 kg Intake: Oral 840 240 Output: Urine 500 Other: Voiding Method Toilet Toilet # Voids 1 Patient Condition at Discharge: Fair Plan - Discharge Summary Discharge Rx Participant: No New Discharge Prescriptions: New Apixaban [Eliquis] 5 mg PO BID 30 Days #60 tab Metoprolol Tartrate 25 mg PO BID 30 Days #60 tab Sennosides [Senokot] 8.6 mg PO HS #30 tablet HYDROcodone/APAP 5-325MG [[place] 5-325] 1 tab PO Q6HR PRN 3 Days #12 tab PRN Reason: Pain Aspirin [Adult Low Dose Aspirin EC] 81 mg PO DAILY 30 Days #30 tab Continue Levothyroxine Sodium [Synthroid] 200 mcg PO DAILY Ondansetron Odt [Zofran ODT] 4 mg PO Q8HR PRN #10 tab PRN Reason: Nausea QUEtiapine FUMARATE [SEROquel] 25 mg PO HS 30 Days #30 tab Furosemide [Lasix] 20 mg PO DAILY Pantoprazole [Protonix] 40 mg PO DAILY 30 Days #30 tab LORazepam [Ativan] 0.25 mg PO BID PRN PRN Reason: Anxiety No Action Ondansetron Odt [Zofran Odt] 4 mg PO Q8HR PRN #10 tab PRN Reason: Nausea Discharge Medication List Levothyroxine Sodium [Synthroid] 200 mcg PO DAILY 01/12/19 [History] Ondansetron Odt [Zofran ODT] 4 mg PO Q8HR PRN #10 tab 09/23/20 [Rx] Pantoprazole [Protonix] 40 mg PO DAILY 30 Days #30 tab 09/26/20 [Rx] QUEtiapine FUMARATE [SEROquel] 25 mg PO HS 30 Days #30 tab 09/26/20 [Rx] Furosemide [Lasix] 20 mg PO DAILY 10/20/20 [History] LORazepam [Ativan] 0.25 mg PO BID PRN 11/25/20 [History] Apixaban [Eliquis] 5 mg PO BID 30 Days #60 tab 12/02/20 [Rx] Aspirin [Adult Low Dose Aspirin EC] 81 mg PO DAILY 30 Days #30 tab 12/02/20 [Rx] HYDROcodone/APAP 5-325MG [[place] 5-325] 1 tab PO Q6HR PRN 3 Days #12 tab 12/02/20 [Rx] Metoprolol Tartrate 25 mg PO BID 30 Days #60 tab 12/02/20 [Rx] Sennosides [Senokot] 8.6 mg PO HS #30 tablet 08/27/21 [Rx] Ondansetron Odt [Zofran Odt] 4 mg PO Q8HR PRN #10 tab 12/04/20 [Rx] Follow up Appointment(s)/Referral(s): Sean Garcia MD [STAFF PHYSICIAN] - 1 Week Joey Valdez MD [Primary Care Provider] - 1-2 days Activity/Diet/Wound Care/Special Instructions: Copay for Eliquis is $9. Discharge Disposition: HOME WITH HOME HEALTH SERVICES
== END 2020-12-02 17:26 | disposition home health service (06) | DRG 309 ==
LOC: EC 21:23 → 1SOBS 11-25 01:20 → 6NMEDSUR 11-25 05:09 → 3SCARD 11-25 20:34 → OBSVTOIN 11-29 08:01
PROVIDERS: ADMIT Hospitalist; ATTEND Hospitalist
PROC: 05HC33Z Insertion of Infusion Device into Left Basilic Vein, Percutaneous Approach (ICD-10-PCS; principal; 2020-12-02 12:35)
DX: I48.0 Paroxysmal atrial fibrillation (principal); Z16.21 Resistance to vancomycin; N39.0 Urinary tract infection, site not specified; K57.80 Diverticulitis of intestine, part unspecified, with perforation and abscess without bleeding; Z90.710 Acquired absence of both cervix and uterus; Z87.891 Personal history of nicotine dependence; Z87.828 Personal history of other (healed) physical injury and trauma; Z86.14 Personal history of Methicillin resistant Staphylococcus aureus infection; Z83.3 Family history of diabetes mellitus; Z82.49 Family history of ischemic heart disease and other diseases of the circulatory system; Z79.899 Other long term (current) drug therapy; Z79.890 Hormone replacement therapy; Z79.01 Long term (current) use of anticoagulants; Z43.3 Encounter for attention to colostomy; Z98.84 Bariatric surgery status; Z96.653 Presence of artificial knee joint, bilateral; K21.9 Gastro-esophageal reflux disease without esophagitis; M19.90 Unspecified osteoarthritis, unspecified site; B95.2 Enterococcus as the cause of diseases classified elsewhere; E03.9 Hypothyroidism, unspecified; E78.5 Hyperlipidemia, unspecified; E83.42 Hypomagnesemia; E87.6 Hypokalemia; F32.9 Major depressive disorder, single episode, unspecified; F41.0 Panic disorder [episodic paroxysmal anxiety]; G89.29 Other chronic pain; I10 Essential (primary) hypertension; I25.10 Atherosclerotic heart disease of native coronary artery without angina pectoris; K76.0 Fatty (change of) liver, not elsewhere classified; I42.8 Other cardiomyopathies
CPT/HCPCS: 36410; 36415; 74177; 76937; 80048; 80053; 81001; 82150; 83605; 83690; 83735; 84132; 84439; 84443; 84484; 85025; 85610; 85730; 86140; 87077; 87086; 87186; 93005; 93306; 94760; 96361; 96374; 96375; 96376; 99291

== ENCOUNTER 2020-12-04 10:45 | Emergency (ER) | payer MEDICARE ==
[2020-12-04 10:49] VITALS: TEMP 98
[2020-12-04] MEDS ORDERED: SODIUM CHLORIDE 0.9% 1,000 ML IV STA (11:20)
[2020-12-04] MEDS ORDERED: HYDROmorphone 0.5 MG/0.5 ML SYRINGE IVP STA ×2 (11:20→12:32)
[2020-12-04] MEDS ORDERED: diphenhydrAMINE 50 MG/ML 1 ML VIAL IVP STA (11:29)
[2020-12-04] MEDS ORDERED: METOCLOPRAMIDE 5 MG/ML 2 ML VIAL IVP STA (11:29)
--- NOTE | 2020-12-04 11:34 | ED ---
General Adult HPI - General Chief complaint: GI Bleed Stated complaint: Vomiting blood Time Seen by Provider: 12/04/20 11:03 Source: patient, RN notes reviewed Mode of arrival: wheelchair Limitations: no limitations - History of Present Illness Initial comments: This is a 75-year-old female presents emergency Department chief complaint abdominal pain. Patient's been having ongoing abdominal pain after colostomy reversal in September. Patient states that symptoms have worsened. Patient states she was just discharged 2 days ago for similar complaints. Patient states that she went home started vomiting yesterday worse today. She did have 1 episode of specks of blood in her emesis. Patient states she's had loose stools. No fevers chills no chest pain. Patient is unsure if she is on anticoagulants. Patient denies any other new symptoms. She has been seen by her surgeon is Dr. Burt in the past. - Related Data Home Medications Medication Instructions Recorded Confirmed Levothyroxine Sodium [Synthroid] 200 mcg PO DAILY 01/12/19 12/04/20 Furosemide [Lasix] 20 mg PO DAILY 10/20/20 12/04/20 LORazepam [Ativan] 0.25 mg PO BID PRN 11/25/20 12/04/20 Previous Rx's Medication Instructions Recorded Ondansetron Odt [Zofran ODT] 4 mg PO Q8HR PRN #10 tab 09/23/20 Pantoprazole [Protonix] 40 mg PO DAILY 30 Days #30 tab 09/26/20 QUEtiapine FUMARATE [SEROquel] 25 mg PO HS 30 Days #30 tab 09/26/20 Apixaban [Eliquis] 5 mg PO BID 30 Days #60 tab 12/02/20 Aspirin [Adult Low Dose Aspirin EC] 81 mg PO DAILY 30 Days #30 tab 12/02/20 HYDROcodone/APAP 5-325MG [[place] 1 tab PO Q6HR PRN 3 Days #12 tab 12/02/20 5-325] Metoprolol Tartrate 25 mg PO BID 30 Days #60 tab 12/02/20 Sennosides [Senokot] 8.6 mg PO HS #30 tablet 12/02/20 Ondansetron Odt [Zofran Odt] 4 mg PO Q8HR PRN #10 tab 12/04/20 Allergies Allergy/AdvReac Type Severity Reaction Status Date / Time latex Allergy Unknown Verified 12/04/20 12:26 vancomycin Allergy Rash/Hives Verified 12/04/20 12:26 Review of Systems ROS Statement: Those systems with pertinent positive or pertinent negative responses have been documented in the HPI. ROS Other: All systems not noted in ROS Statement are negative. 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 SHOULDER Past Surgical History: Bariatric Surgery, Bowel Resection, Cholecystectomy, Heart Catheterization, Heart Catheterization With Stent, Hysterectomy, Joint Replacement, Orthopedic Surgery Additional Past Surgical History / Comment(s): Bilateral knee replacement, left shoulder rotator cuff surgery, gastric bypass, D&C, EGD/colonoscopy, laryngeal tumor removed 30 radiation treatments about 20 years ago, Ganglion Cysts both wrists.PAIN CLINIC INJECTIONS, colostomy 06/26, Past Anesthesia/Blood Transfusion Reactions: No Reported Reaction Date of Last Stent Placement:: 2003 Past Psychological History: Anxiety, Depression, Panic Disorder Smoking Status: Former smoker Past Alcohol Use History: None Reported Past Drug Use History: None Reported - Past Family History Mother Family Medical History: Cancer, Congestive Heart Failure (CHF), Diabetes Mellitus, Hypertension Additional Family Medical History / Comment(s): Mother passed at 93. Father Family Medical History: Myocardial Infarction ([place]) Additional Family Medical History / Comment(s): Father of a [place] at the age of 39 yrs. Sister(s) Family Medical History: Cancer Brother(s) Family Medical History: Cancer, Myocardial Infarction ([place]) General Exam Limitations: no limitations General appearance: alert, in no apparent distress Head exam: Present: atraumatic, normocephalic, normal inspection Neck exam: Present: normal inspection, full ROM. Absent: tenderness, meningismus, lymphadenopathy Respiratory exam: Present: normal lung sounds bilaterally. Absent: respiratory distress, wheezes, rales, rhonchi, stridor Cardiovascular Exam: Present: regular rate, normal rhythm, normal heart sounds. Absent: systolic murmur, diastolic murmur, rubs, gallop, clicks GI/Abdominal exam: Present: soft, tenderness, normal bowel sounds. Absent: distended, guarding, rebound, rigid Back exam: Absent: CVA tenderness (R), CVA tenderness (L) Neurological exam: Present: alert Skin exam: Present: warm, dry, intact, normal color. Absent: rash Course Vital Signs 12/04/20 10:46 Temperature 98 F Pulse Rate 65 Respiratory 22 Rate Blood Pressure 186/101 O2 Sat by Pulse 98 Oximetry Medical Decision Making - Medical Decision Making 75-year-old female presented for abdominal pain. Patient's been having recurrent issues chronic abdominal pain has been evaluated by her GI surgeon. Patient states that she had some vomiting feels greatly improved after IV fluids, antiemetics. She thought she had some blood in her vomit but she was unsure. She's had no recurrent symptoms she is now want to be admitted to discomfort with discharge and close follow-up return parameters were discussed. - Lab Data Result diagrams: 12/04/20 11:32 12/04/20 12:00 Lab Results 12/04/20 12/04/20 12/04/20 Range/Units 11:32 11:32 12:00 WBC 7.4 (3.8-10.6) k/uL RBC 3.94 (3.80-5.40) m/uL Hgb 11.9 (11.4-16.0) gm/dL Hct 37.1 (34.0-46.0) % MCV 94.2 (80.0-100.0) fL MCH 30.2 (25.0-35.0) pg MCHC 32.1 (31.0-37.0) g/dL RDW 15.4 (11.5-15.5) % Plt Count 370 (150-450) k/uL MPV 8.9 Neutrophils % 59 % Lymphocytes % 26 % Monocytes % 11 % Eosinophils % 1 % Basophils % 0 % Neutrophils # 4.3 (1.3-7.7) k/uL Lymphocytes # 1.9 (1.0-4.8) k/uL Monocytes # 0.8 (0-1.0) k/uL Eosinophils # 0.1 (0-0.7) k/uL Basophils # 0.0 (0-0.2) k/uL Hypochromasia Slight PT (9.0-12.0) sec INR (<1.2) APTT (22.0-30.0) sec Sodium (137-145) mmol/L Potassium (3.5-5.1) mmol/L Chloride (98-107) mmol/L Carbon Dioxide (22-30) mmol/L Anion Gap mmol/L BUN (7-17) mg/dL Creatinine (0.52-1.04) mg/dL Est GFR (CKD-EPI)AfAm (>60 ml/min/1.73 sqM) Est GFR (CKD-EPI)NonAf (>60 ml/min/1.73 sqM) Glucose (74-99) mg/dL Plasma Lactic Acid Anthony 2.0 (0.7-2.0) mmol/L Calcium (8.4-10.2) mg/dL Total Bilirubin (0.2-1.3) mg/dL AST (14-36) U/L ALT (4-34) U/L Alkaline Phosphatase (38-126) U/L Total Protein (6.3-8.2) g/dL Albumin (3.5-5.0) g/dL Amylase (30-110) U/L Lipase (23-300) U/L Urine Color Yellow Urine Appearance Clear (Clear) Urine pH 7.5 (5.0-8.0) Ur Specific [place] 1.012 (1.001-1.035) Urine Protein Negative (Negative) Urine Glucose (UA) Negative (Negative) Urine Ketones Trace H (Negative) Urine Blood Moderate H (Negative) Urine Nitrite Negative (Negative) Urine Bilirubin Negative (Negative) Urine Urobilinogen <2.0 (<2.0) mg/dL Ur Leukocyte Esterase Small H (Negative) Urine RBC 10 H (0-5) /hpf Urine WBC 4 (0-5) /hpf Ur Squamous Epith Cells 1 (0-4) /hpf Urine Bacteria Rare H (None) /hpf Hyaline Casts 11 H (0-2) /lpf Urine Mucus Rare H (None) /hpf 12/04/20 12/04/20 Range/Units 12:00 12:00 WBC (3.8-10.6) k/uL RBC (3.80-5.40) m/uL Hgb (11.4-16.0) gm/dL Hct (34.0-46.0) % MCV (80.0-100.0) fL MCH (25.0-35.0) pg MCHC (31.0-37.0) g/dL RDW (11.5-15.5) % Plt Count (150-450) k/uL MPV Neutrophils % % Lymphocytes % % Monocytes % % Eosinophils % % Basophils % % Neutrophils # (1.3-7.7) k/uL Lymphocytes # (1.0-4.8) k/uL Monocytes # (0-1.0) k/uL Eosinophils # (0-0.7) k/uL Basophils # (0-0.2) k/uL Hypochromasia PT 12.1 H (9.0-12.0) sec INR 1.2 H (<1.2) APTT 27.7 (22.0-30.0) sec Sodium 139 (137-145) mmol/L Potassium 3.2 L (3.5-5.1) mmol/L Chloride 110 H (98-107) mmol/L Carbon Dioxide 21 L (22-30) mmol/L Anion Gap 8 mmol/L BUN 5 L (7-17) mg/dL Creatinine 0.37 L (0.52-1.04) mg/dL Est GFR (CKD-EPI)AfAm >90 (>60 ml/min/1.73 sqM) Est GFR (CKD-EPI)NonAf >90 (>60 ml/min/1.73 sqM) Glucose 110 H (74-99) mg/dL Plasma Lactic Acid Anthony (0.7-2.0) mmol/L Calcium 8.8 (8.4-10.2) mg/dL Total Bilirubin 0.5 (0.2-1.3) mg/dL AST 48 H (14-36) U/L ALT 16 (4-34) U/L Alkaline Phosphatase 119 (38-126) U/L Total Protein 5.9 L (6.3-8.2) g/dL Albumin 2.7 L (3.5-5.0) g/dL Amylase <30 L (30-110) U/L Lipase 53 (23-300) U/L Urine Color Urine Appearance (Clear) Urine pH (5.0-8.0) Ur Specific [place] (1.001-1.035) Urine Protein (Negative) Urine Glucose (UA) (Negative) Urine Ketones (Negative) Urine Blood (Negative) Urine Nitrite (Negative) Urine Bilirubin (Negative) Urine Urobilinogen (<2.0) mg/dL Ur Leukocyte Esterase (Negative) Urine RBC (0-5) /hpf Urine WBC (0-5) /hpf Ur Squamous Epith Cells (0-4) /hpf Urine Bacteria (None) /hpf Hyaline Casts (0-2) /lpf Urine Mucus (None) /hpf Disposition Clinical Impression: Nausea & vomiting, Chronic abdominal pain, Hypokalemia Disposition: HOME SELF-CARE Condition: Stable Instructions (If sedation given, give patient instructions): Abdominal Pain (ED) Additional Instructions: Please return to the Emergency Department if symptoms worsen or any other concerns. Prescriptions: Ondansetron Odt [Zofran Odt] 4 mg PO Q8HR PRN #10 tab PRN Reason: Nausea Is patient prescribed a controlled substance at d/c from ED?: No Referrals: Joey Valdez MD [Primary Care Provider] - 1-2 days Time of Disposition: 13:07
[2020-12-04 11:42] LABS: Basophils % (A) 0 %; Eosinophils # (A) 0.1 k/uL (0-0.7); Eosinophils % (A) 1 %; HCT 37.1 % (34.0-46.0); HGB 11.9 gm/dL (11.4-16.0); Hypochromasia Slight; Lymphocytes # (A) 1.9 k/uL (1.0-4.8); Lymphocytes % (A) 26 %; MCH 30.2 pg (25.0-35.0); MCHC 32.1 g/dL (31.0-37.0); MCV 94.2 fL (80.0-100.0); Mean Platelet Volume 8.9; Monocytes # (A) 0.8 k/uL (0-1.0); Monocytes % (A) 11 %; Neutrophils # (A) 4.3 k/uL (1.3-7.7); Neutrophils % (A) 59 %; Platelet Count 370 k/uL (150-450); RBC 3.94 m/uL (3.80-5.40); RDW 15.4 % (11.5-15.5); WBC 7.4 k/uL (3.8-10.6)
[2020-12-04 12:37] LABS: ALT 16 U/L (4-34); AST 48 U/L (14-36); African American GFR (CKD) >90 (>60 ml/min/1.73 sqM); Albumin 2.7 g/dL (3.5-5.0); Alkaline Phosphatase 119 U/L (38-126); Amylase <30 U/L (30-110); Anion Gap 8 mmol/L; Blood Urea Nitrogen 5 mg/dL (7-17); Calcium 8.8 mg/dL (8.4-10.2); Carbon Dioxide 21 mmol/L (22-30); Chloride 110 mmol/L (98-107); Glucose 110 mg/dL (74-99); Lipase 53 U/L (23-300); Non-African American GFR(CKD) >90 (>60 ml/min/1.73 sqM); Potassium 3.2 mmol/L (3.5-5.1); Sodium 139 mmol/L (137-145); Total Bilirubin 0.5 mg/dL (0.2-1.3); Total Protein 5.9 g/dL (6.3-8.2)
[2020-12-04 12:48] LABS: INR 1.2 (<1.2); Partial Thromboplastin Time 27.7 sec (22.0-30.0); Prothrombin Time 12.1 sec (9.0-12.0)
[2020-12-04 12:48] LABS: Appearance,Urine Clear (Clear); Bacteria,Urine Rare /hpf; Bilirubin,Urine Negative (Negative); Blood,Urine Moderate (Negative); Color,Urine Yellow; Glucose,Urine (UA) Negative (Negative); Hyaline Casts,Urine 11 /lpf (0-2); Ketones,Urine Trace (Negative); Leukocyte Esterase,Urine Small (Negative); Mucus,Urine Rare /hpf; Nitrite,Urine Negative (Negative); PH, Urine 7.5 (5.0-8.0); Protein,Urine Negative (Negative); RBC,Urine 10 /hpf (0-5); Specific Gravity,Urine 1.012 (1.001-1.035); Squamous Epithelial Cell,Urine 1 /hpf (0-4); Urobilinogen,Urine <2.0 mg/dL (<2.0); WBC,Urine 4 /hpf (0-5)
[2020-12-04] MEDS ORDERED: POTASSIUM CHLORIDE ER 20 MEQ TAB.ER PO STA (13:05)
[2020-12-04 13:42] VITALS: BP 105/59; PULSE 98; RESP 18
== END 2020-12-04 13:42 | disposition home or self-care (01) ==
LOC: EC 10:45
DX: R10.9 Unspecified abdominal pain (principal); R11.2 Nausea with vomiting, unspecified; E87.6 Hypokalemia; G89.29 Other chronic pain; I10 Essential (primary) hypertension; I48.91 Unspecified atrial fibrillation; I25.10 Atherosclerotic heart disease of native coronary artery without angina pectoris; K21.9 Gastro-esophageal reflux disease without esophagitis; M19.90 Unspecified osteoarthritis, unspecified site; E07.9 Disorder of thyroid, unspecified; F41.9 Anxiety disorder, unspecified; F32.9 Major depressive disorder, single episode, unspecified; Z79.01 Long term (current) use of anticoagulants; Z79.82 Long term (current) use of aspirin; Z79.899 Other long term (current) drug therapy; Z88.1 Allergy status to other antibiotic agents; Z91.040 Latex allergy status; Z98.84 Bariatric surgery status; Z96.653 Presence of artificial knee joint, bilateral; Z87.891 Personal history of nicotine dependence; Z90.49 Acquired absence of other specified parts of digestive tract; Z90.710 Acquired absence of both cervix and uterus
CPT/HCPCS: 99284; 96374; 96375 ×2; 96376; 96361; 36415; 93005; 80053; 82150; 83605; 83690; 85025; 85610; 85730; 81001; J1200; J2765; J1170

== ENCOUNTER 2020-12-08 00:24 | Emergency (ER) | payer MEDICARE ==
[2020-12-08 00:30] VITALS: BP 136/83; PULSE 109; RESP 18; TEMP 97.9
--- NOTE | 2020-12-08 00:35 | ED ---
Fall HPI - General Chief Complaint: Fall Stated Complaint: Fall Time Seen by Provider: 12/08/20 00:35 Source: patient, RN notes reviewed, old records reviewed Mode of arrival: ambulatory Limitations: no limitations - History of Present Illness Initial Comments: This is a 75-year-old female to ER for evaluation today. Patient presents today for evaluation of a trip and fall falling on close falling backward hitting had hitting back getting hot. Patient has no loss of consciousness currently denying headache chest pain shortness breath or abdominal pain. History of multiple falls MD Complaint: fall -: hour(s) Fall From: standing When Fall Occurred: 1 hour [employer] Fall Witnessed: no Prolonged Down Time?: no Symptoms Prior to Fall: none Location: chest, back, pelvis Severity: mild Severity scale (1-10): 4 Quality: dull Context: tripped/slipped Associated Symptoms: denies - Related Data Home Medications Medication Instructions Recorded Confirmed RX: Levothyroxine Sodium 200 mcg PO DAILY 01/12/19 12/04/20 [Synthroid] RX: Furosemide [Lasix] 20 mg PO DAILY 10/20/20 12/04/20 RX: LORazepam [Ativan] 0.25 mg PO BID PRN 11/25/20 12/04/20 Previous Rx's Medication Instructions Recorded RX: Ondansetron Odt [Zofran ODT] 4 mg PO Q8HR PRN #10 tab 09/23/20 RX: Pantoprazole [Protonix] 40 mg PO DAILY 30 Days #30 tab 09/26/20 RX: QUEtiapine FUMARATE [SEROquel] 25 mg PO HS 30 Days #30 tab 09/26/20 Apixaban [Eliquis] 5 mg PO BID 30 Days #60 tab 12/02/20 HYDROcodone/APAP 5-325MG [[place] 1 tab PO Q6HR PRN 3 Days #12 tab 12/02/20 5-325] RX: Aspirin [Adult Low Dose 81 mg PO DAILY 30 Days #30 tab 12/02/20 Aspirin EC] RX: Metoprolol Tartrate 25 mg PO BID 30 Days #60 tab 12/02/20 Sennosides [Senokot] 8.6 mg PO HS #30 tablet 12/02/20 Ondansetron Odt [Zofran Odt] 4 mg PO Q8HR PRN #10 tab 12/04/20 Allergies Allergy/AdvReac Type Severity Reaction Status Date / Time latex Allergy Unknown Verified 12/08/20 00:30 vancomycin Allergy Rash/Hives Verified 12/08/20 00:30 Review of Systems ROS Statement: Those systems with pertinent positive or pertinent negative responses have been documented in the HPI. ROS Other: All systems not noted in ROS Statement are negative. 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 SHOULDER Past Surgical History: Bariatric Surgery, Bowel Resection, Cholecystectomy, Heart Catheterization, Heart Catheterization With Stent, Hysterectomy, Joint Replacement, Orthopedic Surgery Additional Past Surgical History / Comment(s): Bilateral knee replacement, left shoulder rotator cuff surgery, gastric bypass, D&C, EGD/colonoscopy, laryngeal tumor removed 30 radiation treatments about 20 years ago, Ganglion Cysts both wrists.PAIN CLINIC INJECTIONS, colostomy 06/26, Past Anesthesia/Blood Transfusion Reactions: No Reported Reaction Date of Last Stent Placement:: 2003 Past Psychological History: Anxiety, Depression, Panic Disorder Smoking Status: Former smoker Past Alcohol Use History: None Reported Past Drug Use History: None Reported - Past Family History Mother Family Medical History: Cancer, Congestive Heart Failure (CHF), Diabetes Mellitus, Hypertension Additional Family Medical History / Comment(s): Mother passed at 93. Father Family Medical History: Myocardial Infarction ([place]) Additional Family Medical History / Comment(s): Father of a [place] at the age of 39 yrs. Sister(s) Family Medical History: Cancer Brother(s) Family Medical History: Cancer, Myocardial Infarction ([place]) General Exam Limitations: no limitations General appearance: alert, in no apparent distress, anxious Head exam: Present: atraumatic, normocephalic, normal inspection Eye exam: Present: normal appearance, PERRL, EOMI. Absent: scleral icterus, conjunctival injection, periorbital swelling ENT exam: Present: normal exam, mucous membranes moist Neck exam: Present: normal inspection. Absent: tenderness, meningismus, lymphadenopathy Respiratory exam: Present: normal lung sounds bilaterally. Absent: respiratory distress, wheezes, rales, rhonchi, stridor Cardiovascular Exam: Present: regular rate, normal rhythm, normal heart sounds. Absent: systolic murmur, diastolic murmur, rubs, gallop, clicks GI/Abdominal exam: Present: soft, normal bowel sounds. Absent: distended, tenderness, guarding, rebound, rigid Extremities exam: Present: normal inspection, full ROM, normal capillary refill. Absent: tenderness, pedal edema, joint swelling, calf tenderness Back exam: Present: normal inspection Neurological exam: Present: alert, oriented X3, CN II-XII intact Psychiatric exam: Present: normal affect, normal mood Skin exam: Present: warm, dry, intact, normal color. Absent: rash Course Vital Signs 12/08/20 00:27 Temperature 97.9 F Pulse Rate 109 H Respiratory 18 Rate Blood Pressure 136/83 O2 Sat by Pulse 99 Oximetry - Reevaluation(s) Reevaluation #1: 12/08/20 01:08 Medical record is reviewed Reevaluation #2: 12/08/20 01:08 Patient is in no distress Reevaluation #3: 12/08/20 01:09 not requiring pain medication Medical Decision Making - Medical Decision Making 75 female presents today for evaluation, patient has no triadic injury after fall. Fall mechanical in nature, patient will be discharged - Radiology Data Radiology results: report reviewed (CT brain C-spine of the chest and pelvis x- ray negative for traumatic injury), image reviewed Disposition Clinical Impression: Fall Disposition: HOME SELF-CARE Condition: Good Instructions (If sedation given, give patient instructions): Fall Prevention for Older Adults (ED) Is patient prescribed a controlled substance at d/c from ED?: No Referrals: Joey Valdez MD [Primary Care Provider] - 1-2 days
--- NOTE | 2020-12-08 01:01 | XR ---
EXAMINATION TYPE: XR chest 1V DATE OF EXAM: 12/08/2020 COMPARISON: 09/15/2020 HISTORY: Fall. Pain. TECHNIQUE: Single view FINDINGS: Heart and mediastinum are normal. Lungs are clear. Diaphragm is normal. Bony thorax is inta ct. There is left shoulder prosthesis. There are no hilar masses. IMPRESSION: No active cardiopulmonary disease. No change.
--- NOTE | 2020-12-08 01:04 | CT ---
EXAMINATION TYPE: CT brain cspine wo con DATE OF EXAM: 12/08/2020 COMPARISON: CT brain May 17, 2020 HISTORY: Fall CT DLP: 1430.3 mGycm Automated exposure control for dose reduction was used. There is mild cerebral atrophy. There is no mass effect nor midline shift. There is no sign of intrac ranial hemorrhage. There are small areas of hypodensity in the periventricular white matter. The calv arium is intact. Skull base is intact. There is normal aeration of the mastoid sinuses. Orbits appear intact. The cervical vertebra have normal alignment. There is mild narrowing at C5-6 and C6-7 disc spaces. Th ere is no significant spurring. Posterior elements are intact. There is mild hypertrophic facet arthr opathy. Prevertebral soft tissues are intact. IMPRESSION: Cerebral atrophy and chronic small vessel ischemia without significant change compared to old exam. Minor degenerative changes in the cervical spine. No fracture.
--- NOTE | 2020-12-08 01:06 | XR ---
EXAMINATION TYPE: XR pelvis AP view DATE OF EXAM: 12/08/2020 COMPARISON: NONE HISTORY: Fall. Pain. TECHNIQUE: Single view FINDINGS: Pelvic ring is intact. Proximal femurs and hip joints are intact. Hip joint spaces are fair ly normal. Sacroiliac joints appear normal. IMPRESSION: Negative exam. No fracture. No change compared to abdomen x-ray of 04/21/2020.
[2020-12-08] MEDS ORDERED: HYDROcodone/APAP 5-325MG 1 EACH TAB PO STA (01:13)
== END 2020-12-08 01:25 | disposition home or self-care (01) ==
LOC: EC 00:24
DX: M54.9 Dorsalgia, unspecified (principal); I10 Essential (primary) hypertension; I25.10 Atherosclerotic heart disease of native coronary artery without angina pectoris; I48.91 Unspecified atrial fibrillation; K21.9 Gastro-esophageal reflux disease without esophagitis; M19.90 Unspecified osteoarthritis, unspecified site; F32.9 Major depressive disorder, single episode, unspecified; F41.9 Anxiety disorder, unspecified; Z79.01 Long term (current) use of anticoagulants; Z79.82 Long term (current) use of aspirin; Z79.899 Other long term (current) drug therapy; Z87.891 Personal history of nicotine dependence; Z83.3 Family history of diabetes mellitus; Z82.49 Family history of ischemic heart disease and other diseases of the circulatory system; Z98.84 Bariatric surgery status; Z91.040 Latex allergy status; Z90.49 Acquired absence of other specified parts of digestive tract; W01.0XXA Fall on same level from slipping, tripping and stumbling without subsequent striking against object, initial encounter
CPT/HCPCS: 70450; 71045; 72125; 72170; 99284

== ENCOUNTER 2021-01-08 20:13 | Observation (INO) | payer MEDICARE ==
[2021-01-08] MEDS ORDERED: SODIUM CHLORIDE 0.9% 1,000 ML IV STA ×2 (20:21)
[2021-01-08] MEDS ORDERED: KETOROLAC 15 MG/ML 1 ML VIAL IVP STA (20:21)
--- NOTE | 2021-01-08 20:27 | ED ---
Abdominal Pain HPI - General Chief Complaint: Abdominal Pain Stated Complaint: Abd Pain Time Seen by Provider: 01/08/21 20:13 Source: patient, EMS, RN notes reviewed Mode of arrival: EMS Limitations: no limitations - History of Present Illness Initial Comments: 75-year-old female history of colostomy reversal many months ago who states she's had abdominal pain since September of this year who presents with complaints of increased pain decreased oral intake some dizziness no nausea no vomiting fevers chills or sweats. She states the pain is left lower quadrants over to her previous pain. MD Complaint: abdominal pain - Related Data Home Medications Medication Instructions Recorded Confirmed Levothyroxine Sodium [Synthroid] 200 mcg PO DAILY 01/12/19 12/04/20 Furosemide [Lasix] 20 mg PO DAILY 10/20/20 12/04/20 LORazepam [Ativan] 0.25 mg PO BID PRN 11/25/20 12/04/20 Previous Rx's Medication Instructions Recorded Ondansetron Odt [Zofran ODT] 4 mg PO Q8HR PRN #10 tab 09/23/20 Pantoprazole [Protonix] 40 mg PO DAILY 30 Days #30 tab 09/26/20 QUEtiapine FUMARATE [SEROquel] 25 mg PO HS 30 Days #30 tab 09/26/20 Apixaban [Eliquis] 5 mg PO BID 30 Days #60 tab 12/02/20 Aspirin [Adult Low Dose Aspirin EC] 81 mg PO DAILY 30 Days #30 tab 12/02/20 HYDROcodone/APAP 5-325MG [[place] 1 tab PO Q6HR PRN 3 Days #12 tab 12/02/20 5-325] Metoprolol Tartrate 25 mg PO BID 30 Days #60 tab 12/02/20 Sennosides [Senokot] 8.6 mg PO HS #30 tablet 12/02/20 Ondansetron Odt [Zofran Odt] 4 mg PO Q8HR PRN #10 tab 12/04/20 Allergies Allergy/AdvReac Type Severity Reaction Status Date / Time latex Allergy Unknown Verified 01/08/21 20:21 vancomycin Allergy Rash/Hives Verified 01/08/21 20:21 Review of Systems ROS Statement: Those systems with pertinent positive or pertinent negative responses have been documented in the HPI. ROS Other: All systems not noted in ROS Statement are negative. 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 SHOULDER Past Surgical History: Bariatric Surgery, Bowel Resection, Cholecystectomy, Heart Catheterization, Heart Catheterization With Stent, Hysterectomy, Joint Replacement, Orthopedic Surgery Additional Past Surgical History / Comment(s): Bilateral knee replacement, left shoulder rotator cuff surgery, gastric bypass, D&C, EGD/colonoscopy, laryngeal tumor removed 30 radiation treatments about 20 years ago, Ganglion Cysts both wrists.PAIN CLINIC INJECTIONS, colostomy 06/26, Past Anesthesia/Blood Transfusion Reactions: No Reported Reaction Date of Last Stent Placement:: 2003 Past Psychological History: Anxiety, Depression, Panic Disorder Smoking Status: Former smoker Past Alcohol Use History: None Reported Past Drug Use History: None Reported - Past Family History Mother Family Medical History: Cancer, Congestive Heart Failure (CHF), Diabetes Mellitus, Hypertension Additional Family Medical History / Comment(s): Mother passed at 93. Father Family Medical History: Myocardial Infarction ([place]) Additional Family Medical History / Comment(s): Father of a [place] at the age of 39 yrs. Sister(s) Family Medical History: Cancer Brother(s) Family Medical History: Cancer, Myocardial Infarction ([place]) General Exam - General Exam Comments Initial Comments: Is a well-developed well-nourished awake alert somewhat lethargic female Limitations: no limitations General appearance: alert, in no apparent distress Head exam: Present: atraumatic, normocephalic, normal inspection Eye exam: Present: normal appearance, PERRL, EOMI. Absent: scleral icterus, conjunctival injection, periorbital swelling ENT exam: Present: mucous membranes dry Neck exam: Present: normal inspection, full ROM, other (No stridor JVD or bruits). Absent: tenderness, meningismus, lymphadenopathy Respiratory exam: Present: normal lung sounds bilaterally. Absent: respiratory distress, wheezes, rales, rhonchi, stridor Cardiovascular Exam: Present: normal rhythm, tachycardia, normal heart sounds. Absent: systolic murmur, diastolic murmur, rubs, gallop, clicks GI/Abdominal exam: Present: soft, normal bowel sounds. Absent: distended, tenderness, guarding, rebound, rigid Extremities exam: Present: normal inspection, full ROM, normal capillary refill. Absent: tenderness, pedal edema, joint swelling, calf tenderness Back exam: Present: normal inspection Neurological exam: Present: alert, oriented X3, CN II-XII intact Psychiatric exam: Present: normal affect, normal mood Skin exam: Present: warm, dry, intact, normal color. Absent: rash Course Vital Signs 01/08/21 01/08/21 20:14 21:33 Temperature 98.6 F Pulse Rate 109 H 96 Respiratory 20 18 Rate Blood Pressure 189/97 118/69 O2 Sat by Pulse 99 99 Oximetry Medical Decision Making - Medical Decision Making Case discussed with the patient she still has pain she'll be admitted for i npatient evaluation and treatment patient will be admitted Dr. Medina's service - Lab Data Result diagrams: 01/08/21 20:38 01/08/21 20:38 Lab Results 01/08/21 01/08/21 01/08/21 Range/Units 20:38 20:38 20:38 WBC 5.0 (3.8-10.6) k/uL RBC 3.59 L (3.80-5.40) m/uL Hgb 10.9 L (11.4-16.0) gm/dL Hct 34.2 (34.0-46.0) % MCV 95.2 (80.0-100.0) fL MCH 30.4 (25.0-35.0) pg MCHC 31.9 (31.0-37.0) g/dL RDW 16.9 H (11.5-15.5) % Plt Count 279 (150-450) k/uL MPV 7.9 Neutrophils % 49 % Lymphocytes % 40 % Monocytes % 6 % Eosinophils % 1 % Basophils % 1 % Neutrophils # 2.4 (1.3-7.7) k/uL Lymphocytes # 2.0 (1.0-4.8) k/uL Monocytes # 0.3 (0-1.0) k/uL Eosinophils # 0.1 (0-0.7) k/uL Basophils # 0.0 (0-0.2) k/uL Anisocytosis Slight Macrocytosis Slight PT 13.8 H (9.0-12.0) sec INR 1.4 H (<1.2) APTT 27.5 (22.0-30.0) sec Sodium (137-145) mmol/L Potassium (3.5-5.1) mmol/L Chloride (98-107) mmol/L Carbon Dioxide (22-30) mmol/L Anion Gap mmol/L BUN (7-17) mg/dL Creatinine (0.52-1.04) mg/dL Est GFR (CKD-EPI)AfAm (>60 ml/min/1.73 sqM) Est GFR (CKD-EPI)NonAf (>60 ml/min/1.73 sqM) Glucose (74-99) mg/dL Plasma Lactic Acid Anthony (0.7-2.0) mmol/L Calcium (8.4-10.2) mg/dL Total Bilirubin (0.2-1.3) mg/dL AST (14-36) U/L ALT (4-34) U/L Alkaline Phosphatase (38-126) U/L Creatine Kinase (30-135) U/L Troponin I (0.000-0.034) ng/mL Total Protein (6.3-8.2) g/dL Albumin (3.5-5.0) g/dL Amylase (30-110) U/L Lipase (23-300) U/L Urine Color Yellow Urine Appearance Clear (Clear) Urine pH 7.0 (5.0-8.0) Ur Specific [place] 1.011 (1.001-1.035) Urine Protein Negative (Negative) Urine Glucose (UA) Negative (Negative) Urine Ketones Negative (Negative) Urine Blood Negative (Negative) Urine Nitrite Negative (Negative) Urine Bilirubin Negative (Negative) Urine Urobilinogen 8.0 (<2.0) mg/dL Ur Leukocyte Esterase Small H (Negative) Urine RBC 1 (0-5) /hpf Urine WBC 6 H (0-5) /hpf Ur Squamous Epith Cells 4 (0-4) /hpf Urine Bacteria Rare H (None) /hpf Hyaline Casts 4 H (0-2) /lpf Urine Mucus Rare H (None) /hpf Urine Opiates Screen (NotDetected) Ur Oxycodone Screen (NotDetected) Urine Methadone Screen (NotDetected) Ur Propoxyphene Screen (NotDetected) Ur Barbiturates Screen (NotDetected) U Tricyclic Antidepress (NotDetected) Ur Phencyclidine Scrn (NotDetected) Ur Amphetamines Screen (NotDetected) U Methamphetamines Scrn (NotDetected) U Benzodiazepines Scrn (NotDetected) Urine Cocaine Screen (NotDetected) U Marijuana (THC) Screen (NotDetected) 01/08/21 01/08/21 01/08/21 Range/Units 20:38 20:38 20:38 WBC (3.8-10.6) k/uL RBC (3.80-5.40) m/uL Hgb (11.4-16.0) gm/dL Hct (34.0-46.0) % MCV (80.0-100.0) fL MCH (25.0-35.0) pg MCHC (31.0-37.0) g/dL RDW (11.5-15.5) % Plt Count (150-450) k/uL MPV Neutrophils % % Lymphocytes % % Monocytes % % Eosinophils % % Basophils % % Neutrophils # (1.3-7.7) k/uL Lymphocytes # (1.0-4.8) k/uL Monocytes # (0-1.0) k/uL Eosinophils # (0-0.7) k/uL Basophils # (0-0.2) k/uL Anisocytosis Macrocytosis PT (9.0-12.0) sec INR (<1.2) APTT (22.0-30.0) sec Sodium 133 L (137-145) mmol/L Potassium 3.2 L (3.5-5.1) mmol/L Chloride 102 (98-107) mmol/L Carbon Dioxide 26 (22-30) mmol/L Anion Gap 5 mmol/L BUN 5 L (7-17) mg/dL Creatinine 0.41 L (0.52-1.04) mg/dL Est GFR (CKD-EPI)AfAm >90 (>60 ml/min/1.73 sqM) Est GFR (CKD-EPI)NonAf >90 (>60 ml/min/1.73 sqM) Glucose 99 (74-99) mg/dL Plasma Lactic Acid Anthony 1.4 (0.7-2.0) mmol/L Calcium 8.2 L (8.4-10.2) mg/dL Total Bilirubin 1.2 (0.2-1.3) mg/dL AST 35 (14-36) U/L ALT 17 (4-34) U/L Alkaline Phosphatase 210 H (38-126) U/L Creatine Kinase 22 L (30-135) U/L Troponin I <0.012 (0.000-0.034) ng/mL Total Protein 6.0 L (6.3-8.2) g/dL Albumin 2.4 L (3.5-5.0) g/dL Amylase <30 L (30-110) U/L Lipase 24 (23-300) U/L Urine Color Urine Appearance (Clear) Urine pH (5.0-8.0) Ur Specific [place] (1.001-1.035) Urine Protein (Negative) Urine Glucose (UA) (Negative) Urine Ketones (Negative) Urine Blood (Negative) Urine Nitrite (Negative) Urine Bilirubin (Negative) Urine Urobilinogen (<2.0) mg/dL Ur Leukocyte Esterase (Negative) Urine RBC (0-5) /hpf Urine WBC (0-5) /hpf Ur Squamous Epith Cells (0-4) /hpf Urine Bacteria (None) /hpf Hyaline Casts (0-2) /lpf Urine Mucus (None) /hpf Urine Opiates Screen (NotDetected) Ur Oxycodone Screen (NotDetected) Urine Methadone Screen (NotDetected) Ur Propoxyphene Screen (NotDetected) Ur Barbiturates Screen (NotDetected) U Tricyclic Antidepress (NotDetected) Ur Phencyclidine Scrn (NotDetected) Ur Amphetamines Screen (NotDetected) U Methamphetamines Scrn (NotDetected) U Benzodiazepines Scrn (NotDetected) Urine Cocaine Screen (NotDetected) U Marijuana (THC) Screen (NotDetected) 01/08/21 Range/Units 20:38 WBC (3.8-10.6) k/uL RBC (3.80-5.40) m/uL Hgb (11.4-16.0) gm/dL Hct (34.0-46.0) % MCV (80.0-100.0) fL MCH (25.0-35.0) pg MCHC (31.0-37.0) g/dL RDW (11.5-15.5) % Plt Count (150-450) k/uL MPV Neutrophils % % Lymphocytes % % Monocytes % % Eosinophils % % Basophils % % Neutrophils # (1.3-7.7) k/uL Lymphocytes # (1.0-4.8) k/uL Monocytes # (0-1.0) k/uL Eosinophils # (0-0.7) k/uL Basophils # (0-0.2) k/uL Anisocytosis Macrocytosis PT (9.0-12.0) sec INR (<1.2) APTT (22.0-30.0) sec Sodium (137-145) mmol/L Potassium (3.5-5.1) mmol/L Chloride (98-107) mmol/L Carbon Dioxide (22-30) mmol/L Anion Gap mmol/L BUN (7-17) mg/dL Creatinine (0.52-1.04) mg/dL Est GFR (CKD-EPI)AfAm (>60 ml/min/1.73 sqM) Est GFR (CKD-EPI)NonAf (>60 ml/min/1.73 sqM) Glucose (74-99) mg/dL Plasma Lactic Acid Anthony (0.7-2.0) mmol/L Calcium (8.4-10.2) mg/dL Total Bilirubin (0.2-1.3) mg/dL AST (14-36) U/L ALT (4-34) U/L Alkaline Phosphatase (38-126) U/L Creatine Kinase (30-135) U/L Troponin I (0.000-0.034) ng/mL Total Protein (6.3-8.2) g/dL Albumin (3.5-5.0) g/dL Amylase (30-110) U/L Lipase (23-300) U/L Urine Color Urine Appearance (Clear) Urine pH (5.0-8.0) Ur Specific [place] (1.001-1.035) Urine Protein (Negative) Urine Glucose (UA) (Negative) Urine Ketones (Negative) Urine Blood (Negative) Urine Nitrite (Negative) Urine Bilirubin (Negative) Urine Urobilinogen (<2.0) mg/dL Ur Leukocyte Esterase (Negative) Urine RBC (0-5) /hpf Urine WBC (0-5) /hpf Ur Squamous Epith Cells (0-4) /hpf Urine Bacteria (None) /hpf Hyaline Casts (0-2) /lpf Urine Mucus (None) /hpf Urine Opiates Screen Detected H (NotDetected) Ur Oxycodone Screen Detected H (NotDetected) Urine Methadone Screen Not Detected (NotDetected) Ur Propoxyphene Screen Not Detected (NotDetected) Ur Barbiturates Screen Not Detected (NotDetected) U Tricyclic Antidepress Not Detected (NotDetected) Ur Phencyclidine Scrn Not Detected (NotDetected) Ur Amphetamines Screen Not Detected (NotDetected) U Methamphetamines Scrn Not Detected (NotDetected) U Benzodiazepines Scrn Detected H (NotDetected) Urine Cocaine Screen Not Detected (NotDetected) U Marijuana (THC) Screen Not Detected (NotDetected) - Radiology Data Radiology results: report reviewed (Imaging reviewed no definite acute findings computed tomography scan pending at this time no obvious evidence of obstruction), image reviewed Critical Care Time Critical Care Time: Yes Disposition Clinical Impression: Intractable abdominal pain, Dehydration Disposition: ADMITTED IP TO THIS [facility] Condition: Fair Referrals: Joey Valdez MD [Primary Care Provider] - 1-2 days
--- NOTE | 2021-01-08 20:41 | XR ---
EXAMINATION TYPE: XR KUB DATE OF EXAM: 01/08/2021 COMPARISON: 09/19/2020 HISTORY: Abdominal pain TECHNIQUE: 2 views FINDINGS: Bowel gas pattern is normal. There is no sign of intestinal obstruction or pneumoperitoneum . There is mild lumbar dextroscoliosis. There are clips from cholecystectomy. There is vascular calci fication. Surgical clips are seen in the left mid abdomen. There are clips in the left upper quadrant . Lung bases are clear of consolidation. IMPRESSION: Nonacute abdomen. No bowel obstruction. No adverse change.
[2021-01-08 21:41] LABS: Anisocytosis Slight; Basophils % (A) 1 %; Eosinophils # (A) 0.1 k/uL (0-0.7); Eosinophils % (A) 1 %; HCT 34.2 % (34.0-46.0); HGB 10.9 gm/dL (11.4-16.0); Lymphocytes % (A) 40 %; MCH 30.4 pg (25.0-35.0); MCHC 31.9 g/dL (31.0-37.0); MCV 95.2 fL (80.0-100.0); Macrocytosis Slight; Mean Platelet Volume 7.9; Monocytes # (A) 0.3 k/uL (0-1.0); Monocytes % (A) 6 %; Neutrophils # (A) 2.4 k/uL (1.3-7.7); Neutrophils % (A) 49 %; Platelet Count 279 k/uL (150-450); RBC 3.59 m/uL (3.80-5.40); RDW 16.9 % (11.5-15.5)
[2021-01-08 21:42] LABS: Appearance,Urine Clear (Clear); Bacteria,Urine Rare /hpf; Bilirubin,Urine Negative (Negative); Blood,Urine Negative (Negative); Color,Urine Yellow; Glucose,Urine (UA) Negative (Negative); Hyaline Casts,Urine 4 /lpf (0-2); Ketones,Urine Negative (Negative); Leukocyte Esterase,Urine Small (Negative); Mucus,Urine Rare /hpf; Nitrite,Urine Negative (Negative); Protein,Urine Negative (Negative); RBC,Urine 1 /hpf (0-5); Specific Gravity,Urine 1.011 (1.001-1.035); Squamous Epithelial Cell,Urine 4 /hpf (0-4); WBC,Urine 6 /hpf (0-5)
[2021-01-08 21:50] LABS: INR 1.4 (<1.2); Partial Thromboplastin Time 27.5 sec (22.0-30.0); Prothrombin Time 13.8 sec (9.0-12.0)
[2021-01-08 21:55] LABS: Amphetamine Screen,Urine Not Detected (NotDetected); Barbiturate Screen,Urine Not Detected (NotDetected); Benzodiazepines Screen,Urine Detected (NotDetected); Cocaine Screen,Urine Not Detected (NotDetected); Methadone Screen, Urine Not Detected (NotDetected); Opiate Screen,Urine Detected (NotDetected); Oxycodone Screen, Urine Detected (NotDetected); Phencyclidine Screen,Urine Not Detected (NotDetected); Tricyclic Antidepressant,Urine Not Detected (NotDetected); Urn Cannabinoid Scrn Not Detected (NotDetected)
[2021-01-08 22:11] LABS: ALT 17 U/L (4-34); AST 35 U/L (14-36); African American GFR (CKD) >90 (>60 ml/min/1.73 sqM); Albumin 2.4 g/dL (3.5-5.0); Alkaline Phosphatase 210 U/L (38-126); Anion Gap 5 mmol/L; Blood Urea Nitrogen 5 mg/dL (7-17); Calcium 8.2 mg/dL (8.4-10.2); Carbon Dioxide 26 mmol/L (22-30); Chloride 102 mmol/L (98-107); Creatine Kinase 22 U/L (30-135); Glucose 99 mg/dL (74-99); Lipase 24 U/L (23-300); Non-African American GFR(CKD) >90 (>60 ml/min/1.73 sqM); Potassium 3.2 mmol/L (3.5-5.1); Sodium 133 mmol/L (137-145); Total Bilirubin 1.2 mg/dL (0.2-1.3)
[2021-01-08 22:42] LABS: Amylase <30 U/L (30-110)
[2021-01-08] MEDS ORDERED: ONDANSETRON 4 MG/2 ML VIAL IVP PRN (23:30)
[2021-01-08] MEDS ORDERED: NALOXONE 0.4 MG/ML 1 ML VIAL IV PRN (23:30)
[2021-01-08] MEDS ORDERED: POTASSIUM CHLORIDE 20 MEQ in WATER FOR INJECTION 1 100ML.BAG IVPB ONE (23:45)
[2021-01-08] MEDS: SODIUM CHLORIDE 0.9% 1,000 ML IV SCH (23:50)
--- NOTE | 2021-01-08 23:57 | CT ---
EXAMINATION TYPE: CT abdomen pelvis w con DATE OF EXAM: 01/08/2021 COMPARISON: 11/26/2020 HISTORY: Abd. pain x [address] DLP: 1154.3 mGycm Automated exposure control for dose reduction was used. CONTRAST: Performed with IV Contrast, patient injected with 100 mL of Isovue 300. Lung bases are clear of consolidation. There is no pleural effusion. There is no pericardial effusion . There are multiple surgical clips at the gastric fundus. There is fatty replacement of the liver. S pleen is intact. There is no evidence of pancreatic mass. There is no adrenal mass. Kidneys show satisfactory contrast opacification. There is no hydronephrosi s. There is no retroperitoneal adenopathy. Abdominal aorta is atheromatous. Bladder distends smoothly . There is no evidence of a pelvic mass. There is no mesenteric edema. There is previous left side kathryn wel surgery. There is mild distention of the small bowel in the mid abdomen up to 2.4 cm. There is no evidence of free air. There is fat stranding in the subcutaneous tissues over the anterior mid abdom en related to previous surgery. There is mild lumbar dextroscoliosis. There is a degenerative first-degree L4-5 spondylolisthesis. Th ere is mild spinal stenosis at L4-5 due to facet arthropathy and subluxation. There is no significant compression deformity. IMPRESSION: There is some mild small bowel ileus. No sign of a mechanical bowel obstruction. Mild fatty infiltrat ion of the liver. Small bowel distention slightly increased compared to old exam.
[2021-01-09] MEDS: HYDROmorphone 1 MG/ML 1 ML SYRINGE IVP PRN ×6 (00:03→20:55)
[2021-01-09] MEDS: KETOROLAC 15 MG/ML 1 ML VIAL IVP PRN (05:05)
[2021-01-09] MEDS: POTASSIUM CHLORIDE 20 MEQ in WATER FOR INJECTION 1 100ML.BAG IVPB SCH ×3 (06:45→11:21)
[2021-01-09] MEDS: ENOXAPARIN 40 MG/0.4 ML SYRINGE SQ SCH (08:24)
[2021-01-09] MEDS: FAMOTIDINE 20 MG/2 ML VIAL IV SCH ×2 (08:24→20:54)
[2021-01-09] MEDS: SODIUM CHLORIDE 0.9% 1,000 ML IV SCH ×2 (08:27→14:49)
[2021-01-09] MEDS ORDERED: LEVOTHYROXINE 100 MCG TAB PO SCH (09:00)
--- NOTE | 2021-01-09 10:00 | P.HPIM ---
History of Present Illness Patient is a 75-year-old the female with multiple episodes of partial small bowel obstruction and ileus given the same complaints of abdominal pain diffuse in the lower abdomen and unable to characterize the pain 9/10 in severity with no associated nausea or vomiting. She feels sick and bit lightheaded is bit hypernatremic was started on IV fluids and was hypokalemic potassium is being replaced patient had a CT of the abdomen which is showing ileus. Patient had a colostomy for a month ago patient denied any diarrhea. Patient is presently on Toradol for pain REVIEW OF SYSTEMS: CONSTITUTIONAL: No fever, no malaise, no fatigue. HEENT: No recent visual problems or hearing problems. Denied any sore throat. CARDIOVASCULAR: No chest pain, orthopnea, PND, no palpitations, no syncope. PULMONARY: No shortness of breath, no cough, no hemoptysis. GASTROINTESTINAL: As mentioned in HPI NEUROLOGICAL: No headaches, no weakness, no numbness. HEMATOLOGICAL: Denies any bleeding or petechiae. GENITOURINARY: Denies any burning micturition, frequency, or urgency. MUSCULOSKELETAL/RHEUMATOLOGICAL: Denies any joint pain, swelling, or any muscle pain. ENDOCRINE: Denies any polyuria or polydipsia. The rest of the 14-point review of systems is negative. PHYSICAL EXAMINATION: GENERAL: The patient is alert and oriented x3, not in any acute distress. Well developed, well nourished. HEENT: Pupils are round and equally reacting to light. EOMI. No scleral icterus. No conjunctival pallor. Normocephalic, atraumatic. No pharyngeal erythema. No thyromegaly. CARDIOVASCULAR: S1 and S2 present. No murmurs, rubs, or gallops. PULMONARY: Chest is clear to auscultation, no wheezing or crackles. ABDOMEN: Soft, nontender, nondistended, sluggish bowel sounds. No palpable organomegaly. MUSCULOSKELETAL: No joint swelling or deformity. EXTREMITIES: No cyanosis, clubbing, or pedal edema. NEUROLOGICAL: Gross neurological examination did not reveal any focal deficits. SKIN: No rashes. Assessment and plan -Partial small bowel obstruction/ileus: General surgery was consulted will continue with IV fluids, bowel rest. Nothing by mouth except for medications. -Hypervolemic hyponatremia can you with IV fluids -Hypokalemia: Replace -Hypomagnesemia replace magnesium -Atrial fibrillation paroxysmal: Presently rate controlled anti-correlation is being held until surgical evaluation and they're agreeable patient will be resumed on anti-correlation at 10-coronary artery disease -Gastritis. Infectious disease -Hypertension -Hypothyroidism -History of gastric bypass surgery and a colostomy with reversal recently DVT prophylaxis: Lovenox until she is back on Eliquis Past Medical History Past Medical History: Atrial Fibrillation, Coronary Artery Disease (CAD), Cancer, Eye Disorder, GERD/Reflux, GI Bleed, Hearing Disorder / Deafness, Hypertension, Musculoskeletal Disorder, Osteoarthritis (OA), Thyroid Disorder Additional Past Medical History / Comment(s): Peptic ulcer, chronic back pain, laryngeal cancer/tx-approx 20 yrs ago, head injury in 2012, cataract removal left eye. Pt states she has a hole in her left eardrum. 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 SHOULDER Past Surgical History: Bariatric Surgery, Bowel Resection, Cholecystectomy, Heart Catheterization, Heart Catheterization With Stent, Hysterectomy, Joint Replacement, Orthopedic Surgery Additional Past Surgical History / Comment(s): 1 stent, Bilateral knee replacement, left shoulder rotator cuff surgery, gastric bypass, D&C w/ corrective surgery, EGD/colonoscopy, laryngeal tumor removed 30 radiation treatments about 20 years ago, Ganglion Cysts both wrists.PAIN CLINIC INJECTIONS, colostomy 06/2020 w/ reversal in August Past Anesthesia/Blood Transfusion Reactions: No Reported Reaction Date of Last Stent Placement:: 2003 Past Psychological History: Anxiety, Depression, Panic Disorder Additional Psychological History / Comment(s): pt lives alone in an apartment. Smoking Status: Former smoker Past Alcohol Use History: Occasional Additional Past Alcohol Use History / Comment(s): Pt started smoking in 1959 and quit in 1992, 1ppd. Pt states she has a drink occasionally. Past Drug Use History: None Reported - Past Family History Mother Family Medical History: Cancer, Congestive Heart Failure (CHF), Diabetes Mellitus, Hypertension Additional Family Medical History / Comment(s): Mother passed at 93. Father Family Medical History: Myocardial Infarction ([place]) Additional Family Medical History / Comment(s): Father of a [place] at the age of 39 yrs. Sister(s) Family Medical History: Cancer Brother(s) Family Medical History: Cancer, Myocardial Infarction ([place]) Medications and Allergies Home Medications Medication Instructions Recorded Confirmed Type Levothyroxine Sodium [Synthroid] 200 mcg PO DAILY 01/12/19 01/09/21 History Pantoprazole [Protonix] 40 mg PO DAILY 30 Days #30 tab 09/26/20 01/09/21 Rx QUEtiapine FUMARATE [SEROquel] 25 mg PO HS 30 Days #30 tab 09/26/20 01/09/21 Rx Furosemide [Lasix] 20 mg PO DAILY 10/20/20 01/09/21 History LORazepam [Ativan] 0.25 mg PO BID PRN 11/25/20 01/09/21 History Apixaban [Eliquis] 5 mg PO BID 30 Days #60 tab 12/02/20 01/09/21 Rx Aspirin [Adult Low Dose Aspirin EC] 81 mg PO DAILY 30 Days #30 tab 12/02/20 01/09/21 Rx Ondansetron Odt [Zofran Odt] 4 mg PO Q8HR PRN #10 tab 12/04/20 01/09/21 Rx HYDROcodone/APAP 10-325MG [[place] 1 tab PO QID PRN 01/09/21 01/09/21 History 10-325] Allergies Allergy/AdvReac Type Severity Reaction Status Date / Time latex Allergy Unknown Verified 01/09/21 07:30 vancomycin Allergy Rash/Hives Verified 01/09/21 07:30 Physical Exam Vitals: Vital Signs Temp Pulse Pulse Resp BP BP Pulse Ox 01/09/21 07:00 97.4 F L 92 18 177/92 96 01/09/21 01:00 100 15 01/09/21 00:50 98.4 F 100 15 164/82 98 01/09/21 00:20 98.2 F 96 21 166/93 97 01/08/21 23:10 93 18 151/72 98 01/08/21 21:33 96 18 118/69 99 01/08/21 20:14 98.6 F 109 H 20 189/97 99 Intake and Output 01/08/21 01/09/21 01/09/21 22:59 06:59 14:59 Other: Voiding Method Toilet # Voids 1 Weight 65.771 kg 65.771 kg Results CBC & Chem 7: 01/08/21 20:38 01/09/21 05:19 Labs: Abnormal Lab Results - Last 24 Hours (Table) 01/08/21 01/08/21 01/08/21 Range/Units 20:38 20:38 20:38 RBC 3.59 L (3.80-5.40) m/uL Hgb 10.9 L (11.4-16.0) gm/dL RDW 16.9 H (11.5-15.5) % PT 13.8 H (9.0-12.0) sec INR 1.4 H (<1.2) Sodium (137-145) mmol/L Potassium (3.5-5.1) mmol/L BUN (7-17) mg/dL Creatinine (0.52-1.04) mg/dL Calcium (8.4-10.2) mg/dL Magnesium (1.6-2.3) mg/dL Alkaline Phosphatase (38-126) U/L Creatine Kinase (30-135) U/L Total Protein (6.3-8.2) g/dL Albumin (3.5-5.0) g/dL Amylase (30-110) U/L Ur Leukocyte Esterase Small H (Negative) Urine WBC 6 H (0-5) /hpf Urine Bacteria Rare H (None) /hpf Hyaline Casts 4 H (0-2) /lpf Urine Mucus Rare H (None) /hpf Urine Opiates Screen (NotDetected) Ur Oxycodone Screen (NotDetected) U Benzodiazepines Scrn (NotDetected) 01/08/21 01/08/21 01/09/21 Range/Units 20:38 20:38 05:19 RBC (3.80-5.40) m/uL Hgb (11.4-16.0) gm/dL RDW (11.5-15.5) % PT (9.0-12.0) sec INR (<1.2) Sodium 133 L (137-145) mmol/L Potassium 3.2 L 3.2 L (3.5-5.1) mmol/L BUN 5 L (7-17) mg/dL Creatinine 0.41 L (0.52-1.04) mg/dL Calcium 8.2 L (8.4-10.2) mg/dL Magnesium (1.6-2.3) mg/dL Alkaline Phosphatase 210 H (38-126) U/L Creatine Kinase 22 L (30-135) U/L Total Protein 6.0 L (6.3-8.2) g/dL Albumin 2.4 L (3.5-5.0) g/dL Amylase <30 L (30-110) U/L Ur Leukocyte Esterase (Negative) Urine WBC (0-5) /hpf Urine Bacteria (None) /hpf Hyaline Casts (0-2) /lpf Urine Mucus (None) /hpf Urine Opiates Screen Detected H (NotDetected) Ur Oxycodone Screen Detected H (NotDetected) U Benzodiazepines Scrn Detected H (NotDetected) 01/09/21 Range/Units 05:19 RBC (3.80-5.40) m/uL Hgb (11.4-16.0) gm/dL RDW (11.5-15.5) % PT (9.0-12.0) sec INR (<1.2) Sodium (137-145) mmol/L Potassium (3.5-5.1) mmol/L BUN (7-17) mg/dL Creatinine (0.52-1.04) mg/dL Calcium (8.4-10.2) mg/dL Magnesium 1.5 L (1.6-2.3) mg/dL Alkaline Phosphatase (38-126) U/L Creatine Kinase (30-135) U/L Total Protein (6.3-8.2) g/dL Albumin (3.5-5.0) g/dL Amylase (30-110) U/L Ur Leukocyte Esterase (Negative) Urine WBC (0-5) /hpf Urine Bacteria (None) /hpf Hyaline Casts (0-2) /lpf Urine Mucus (None) /hpf Urine Opiates Screen (NotDetected) Ur Oxycodone Screen (NotDetected) U Benzodiazepines Scrn (NotDetected) Thrombosis Risk Factor Assmnt - Choose All That Apply Each Factor Represents 1 point: Obesity (BMI >25) Each Risk Factor Represents 3 Points: Age 75 years or older Thrombosis Risk Factor Assessment Total Risk Factor Score: 4 Thrombosis Risk Factor Assessment Level: Moderate Risk
--- NOTE | 2021-01-09 14:03 | P.GSCN ---
History of Present Illness Consult date: 01/09/21 History of present illness: CHIEF COMPLAINT: Abdominal pain HISTORY OF PRESENT ILLNESS: This is a 75-year-old female who had colostomy reversal with Dr. Burt in October 2020. Patient been since the hospital with complaints of mid abdominal pain. She reports it's in the same area as her chronic pain. She complained of increase in pain and decreased oral intake. S he denies any nausea or vomiting. She is having flatus. Her last bowel movement was 2 days ago. Surgical service has been consult in regards to patient's abdominal pain. She denies any fever chills or sweats. 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 PAST SURGICAL HISTORY: Diverticulitis with mesenteric abscess and adhesions status post sigmoid colectomy with end colostomy and lysis of adhesions on 07/10/2020 Colostomy reversal October 2020 Bowel Resection, gastric bypass: Cholecystectomy, Heart Catheterization With Stent, Hysterectomy, Joint Replacement, Orthopedic Surgery Bilateral knee replacement, left shoulder rotator cuff surgery, D&C, EGD/colonoscopy, laryngeal tumor removed 30 radiation treatments about 20 years ago, Ganglion Cysts both wrists. MEDICATIONS: See list. ALLERGIES: See list. SOCIAL HISTORY: No illicit drug use. REVIEW OF SYSTEMS: CONSTITUTIONAL: Denies fever or chills. HEENT: Denies blurred vision, vision changes, or eye pain. Denies hemoptysis CARDIOVASCULAR: Denies chest pain or pressure. RESPIRATORY: No shortness of breath. GASTROINTESTINAL: See HPI for pertinent findings HEMATOLOGIC: Denies bleeding disorders. GENITOURINARY: Denies any blood in urine or increased urinary frequency. SKIN: Denies pruitis. Denies rash. PHYSICAL EXAM: VITAL SIGNS: Reviewed GENERAL: Well-developed in no acute distress. HEENT: No sclera icterus. Extraocular movements grossly intact. Moist buccal mucosa. Head is atraumatic, normocephalic. No nasal drainage. ABDOMEN: Soft. Nondistended. Tenderness mid abdomen along the old incision site. Incision is healed clean dry and intact NEUROLOGIC: Alert and oriented. Cranial nerves II through XII grossly intact. LABORATORY DATA: WBC is 5.0 hemoglobin is 10.9 platelets 279 INR 1.4 sodium 133 potassium 3.2 creatinine 0.41 Magnesium 1.5 AST ALT normal alk phos 210 lipase normal Drug screen opiates, oxycodone and benzodiazepine detected Covid 19 not detected IMAGING: Computed tomography scan abdomen and pelvis there is some mild small bowel ileus. No sign of mechanical bowel obstruction. Mild fatty infiltration of the liver. Small bowel distention slightly increased compared to old exam. ASSESSMENT: 1. Small bowel ileus possibly due to hypokalemia and hypomagnesemia 2. Hypokalemia 3. Hypomagnesemia 4. Colostomy reversal in October 2020 5. Chronic abdominal pain PLAN: -Replace potassium and magnesium -start clear liquid diet -Continue supportive care -Continue pain medication as needed Thank you for this consultation Physician Prison Guard note has been reviewed by physician. Signing provider agrees with the documented findings, assessment, and plan of care. Past Medical History Past Medical History: Atrial Fibrillation, Coronary Artery Disease (CAD), Cancer, Eye Disorder, GERD/Reflux, GI Bleed, Hearing Disorder / Deafness, Hypertension, Musculoskeletal Disorder, Osteoarthritis (OA), Thyroid Disorder Additional Past Medical History / Comment(s): Peptic ulcer, chronic back pain, laryngeal cancer/tx-approx 20 yrs ago, head injury in 2012, cataract removal left eye. Pt states she has a hole in her left eardrum. 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 Past Surgical History: Bariatric Surgery, Bowel Resection, Cholecystectomy, Heart Catheterization, Heart Catheterization With Stent, Hysterectomy, Joint Replacement, Orthopedic Surgery Additional Past Surgical History / Comment(s): 1 stent, Bilateral knee replacement, left shoulder rotator cuff surgery, gastric bypass, D&C w/ corrective surgery, EGD/colonoscopy, laryngeal tumor removed 30 radiation treatments about 20 years ago, Ganglion Cysts both wrists.PAIN CLINIC INJECTIONS, colostomy 06/2020 w/ reversal in August Past Anesthesia/Blood Transfusion Reactions: No Reported Reaction Date of Last Stent Placement:: 2003 Past Psychological History: Anxiety, Depression, Panic Disorder Additional Psychological History / Comment(s): pt lives alone in an apartment. Smoking Status: Former smoker Past Alcohol Use History: Occasional Additional Past Alcohol Use History / Comment(s): Pt started smoking in 1959 and quit in 1992, 1ppd. Pt states she has a drink occasionally. Past Drug Use History: None Reported - Past Family History Mother Family Medical History: Cancer, Congestive Heart Failure (CHF), Diabetes Mellitus, Hypertension Additional Family Medical History / Comment(s): Mother passed at 93. Father Family Medical History: Myocardial Infarction ([place]) Additional Family Medical History / Comment(s): Father of a [place] at the age of 39 yrs. Sister(s) Family Medical History: Cancer Brother(s) Family Medical History: Cancer, Myocardial Infarction ([place]) Medications and Allergies Home Medications Medication Instructions Recorded Confirmed Type Levothyroxine Sodium [Synthroid] 200 mcg PO DAILY 01/12/19 01/09/21 History Pantoprazole [Protonix] 40 mg PO DAILY 30 Days #30 tab 09/26/20 01/09/21 Rx QUEtiapine FUMARATE [SEROquel] 25 mg PO HS 30 Days #30 tab 09/26/20 01/09/21 Rx Furosemide [Lasix] 20 mg PO DAILY 10/20/20 01/09/21 History LORazepam [Ativan] 0.25 mg PO BID PRN 11/25/20 01/09/21 History Apixaban [Eliquis] 5 mg PO BID 30 Days #60 tab 12/02/20 01/09/21 Rx Aspirin [Adult Low Dose Aspirin EC] 81 mg PO DAILY 30 Days #30 tab 12/02/2007/27 Rx Ondansetron Odt [Zofran Odt] 4 mg PO Q8HR PRN #10 tab 12/04/20 01/09/21 Rx HYDROcodone/APAP 10-325MG [[place] 1 tab PO QID PRN 01/09/21 01/09/21 History 10-325] Allergies Allergy/AdvReac Type Severity Reaction Status Date / Time latex Allergy Unknown Verified 01/09/21 07:30 vancomycin Allergy Rash/Hives Verified 01/09/21 07:30 Surgical - Exam Vital Signs Temp Pulse Resp BP Pulse Ox 98.6 F 109 H 20 189/97 99 01/08/21 20:14 01/08/21 20:14 01/08/21 20:14 01/08/21 20:14 01/08/21 20:14 Results - Labs 01/08/21 20:38 01/09/21 05:19 Abnormal Lab Results - Last 24 Hours (Table) 01/08/21 01/08/21 01/08/21 Range/Units 20:38 20:38 20:38 RBC 3.59 L (3.80-5.40) m/uL Hgb 10.9 L (11.4-16.0) gm/dL RDW 16.9 H (11.5-15.5) % PT 13.8 H (9.0-12.0) sec INR 1.4 H (<1.2) Sodium (137-145) mmol/L Potassium (3.5-5.1) mmol/L BUN (7-17) mg/dL Creatinine (0.52-1.04) mg/dL Calcium (8.4-10.2) mg/dL Magnesium (1.6-2.3) mg/dL Alkaline Phosphatase (38-126) U/L Creatine Kinase (30-135) U/L Total Protein (6.3-8.2) g/dL Albumin (3.5-5.0) g/dL Amylase (30-110) U/L Ur Leukocyte Esterase Small H (Negative) Urine WBC 6 H (0-5) /hpf Urine Bacteria Rare H (None) /hpf Hyaline Casts 4 H (0-2) /lpf Urine Mucus Rare H (None) /hpf Urine Opiates Screen (NotDetected) Ur Oxycodone Screen (NotDetected) U Benzodiazepines Scrn (NotDetected) 01/08/21 01/08/21 01/09/21 Range/Units 20:38 20:38 05:19 RBC (3.80-5.40) m/uL Hgb (11.4-16.0) gm/dL RDW (11.5-15.5) % PT (9.0-12.0) sec INR (<1.2) Sodium 133 L (137-145) mmol/L Potassium 3.2 L 3.2 L (3.5-5.1) mmol/L BUN 5 L (7-17) mg/dL Creatinine 0.41 L (0.52-1.04) mg/dL Calcium 8.2 L (8.4-10.2) mg/dL Magnesium (1.6-2.3) mg/dL Alkaline Phosphatase 210 H (38-126) U/L Creatine Kinase 22 L (30-135) U/L Total Protein 6.0 L (6.3-8.2) g/dL Albumin 2.4 L (3.5-5.0) g/dL Amylase <30 L (30-110) U/L Ur Leukocyte Esterase (Negative) Urine WBC (0-5) /hpf Urine Bacteria (None) /hpf Hyaline Casts (0-2) /lpf Urine Mucus (None) /hpf Urine Opiates Screen Detected H (NotDetected) Ur Oxycodone Screen Detected H (NotDetected) U Benzodiazepines Scrn Detected H (NotDetected) 01/09/21 Range/Units 05:19 RBC (3.80-5.40) m/uL Hgb (11.4-16.0) gm/dL RDW (11.5-15.5) % PT (9.0-12.0) sec INR (<1.2) Sodium (137-145) mmol/L Potassium (3.5-5.1) mmol/L BUN (7-17) mg/dL Creatinine (0.52-1.04) mg/dL Calcium (8.4-10.2) mg/dL Magnesium 1.5 L (1.6-2.3) mg/dL Alkaline Phosphatase (38-126) U/L Creatine Kinase (30-135) U/L Total Protein (6.3-8.2) g/dL Albumin (3.5-5.0) g/dL Amylase (30-110) U/L Ur Leukocyte Esterase (Negative) Urine WBC (0-5) /hpf Urine Bacteria (None) /hpf Hyaline Casts (0-2) /lpf Urine Mucus (None) /hpf Urine Opiates Screen (NotDetected) Ur Oxycodone Screen (NotDetected) U Benzodiazepines Scrn (NotDetected) Diabetes panel 01/08/21 01/09/21 Range/Units 20:38 05:19 Sodium 133 L (137-145) mmol/L Potassium 3.2 L 3.2 L (3.5-5.1) mmol/L Chloride 102 (98-107) mmol/L Carbon Dioxide 26 (22-30) mmol/L BUN 5 L (7-17) mg/dL Creatinine 0.41 L (0.52-1.04) mg/dL Glucose 99 (74-99) mg/dL Calcium 8.2 L (8.4-10.2) mg/dL AST 35 (14-36) U/L ALT 17 (4-34) U/L Alkaline Phosphatase 210 H (38-126) U/L Total Protein 6.0 L (6.3-8.2) g/dL Albumin 2.4 L (3.5-5.0) g/dL Calcium panel 01/08/21 Range/Units 20:38 Calcium 8.2 L (8.4-10.2) mg/dL Albumin 2.4 L (3.5-5.0) g/dL Pituitary panel 01/08/21 01/09/21 Range/Units 20:38 05:19 Sodium 133 L (137-145) mmol/L Potassium 3.2 L 3.2 L (3.5-5.1) mmol/L Chloride 102 (98-107) mmol/L Carbon Dioxide 26 (22-30) mmol/L BUN 5 L (7-17) mg/dL Creatinine 0.41 L (0.52-1.04) mg/dL Glucose 99 (74-99) mg/dL Calcium 8.2 L (8.4-10.2) mg/dL Adrenal panel 01/08/21 01/09/21 Range/Units 20:38 05:19 Sodium 133 L (137-145) mmol/L Potassium 3.2 L 3.2 L (3.5-5.1) mmol/L Chloride 102 (98-107) mmol/L Carbon Dioxide 26 (22-30) mmol/L BUN 5 L (7-17) mg/dL Creatinine 0.41 L (0.52-1.04) mg/dL Glucose 99 (74-99) mg/dL Calcium 8.2 L (8.4-10.2) mg/dL Total Bilirubin 1.2 (0.2-1.3) mg/dL AST 35 (14-36) U/L ALT 17 (4-34) U/L Alkaline Phosphatase 210 H (38-126) U/L Total Protein 6.0 L (6.3-8.2) g/dL Albumin 2.4 L (3.5-5.0) g/dL
[2021-01-09] MEDS: MAGNESIUM SULFATE-D5W PMX 1 GM in DEXTROSE/WATER 1 100ML.BAG IVPB SCH ×2 (14:55→16:35)
[2021-01-09 16:10] VITALS: BMI 25.7
[2021-01-09] MEDS: QUEtiapine 25 MG TAB PO SCH (20:54)
[2021-01-10] MEDS: SODIUM CHLORIDE 0.9% 1,000 ML IV SCH ×2 (01:02→12:24)
[2021-01-10] MEDS: LEVOTHYROXINE 100 MCG TAB PO SCH (05:39)
[2021-01-10 06:37] LABS: African American GFR (CKD) >90 (>60 ml/min/1.73 sqM); Anion Gap 2 mmol/L; Blood Urea Nitrogen 3 mg/dL (7-17); Calcium 7.6 mg/dL (8.4-10.2); Carbon Dioxide 21 mmol/L (22-30); Chloride 109 mmol/L (98-107); Glucose 78 mg/dL (74-99); Magnesium 1.9 mg/dL (1.6-2.3); Non-African American GFR(CKD) >90 (>60 ml/min/1.73 sqM); Potassium 4.4 mmol/L (3.5-5.1); Sodium 132 mmol/L (137-145)
[2021-01-10] MEDS: HYDROmorphone 1 MG/ML 1 ML SYRINGE IVP PRN ×2 (07:35→12:51)
[2021-01-10] MEDS: FAMOTIDINE 20 MG/2 ML VIAL IV SCH (07:36)
[2021-01-10] MEDS: ENOXAPARIN 40 MG/0.4 ML SYRINGE SQ SCH (07:37)
--- NOTE | 2021-01-10 13:46 | P.PN ---
Subjective Progress Note Date: 01/10/21 CHIEF COMPLAINT: Abdominal pain HISTORY OF PRESENT ILLNESS: Patient reports some improvement in her abdominal pain. She did have a bowel movement and flatus. Her electrolytes have been corrected. She's currently on a clear liquid diet. Afebrile. Sodium 132 potassium 4.4 and magnesium 1.9 PHYSICAL EXAM: VITAL SIGNS: Reviewed. GENERAL: Well-developed in no acute distress. HEENT: No sclera icterus. Extraocular movements grossly intact. Moist buccal mucosa. Head is atraumatic, normocephalic. ABDOMEN: Soft. Nondistended. Tenderness with palpation of the mid abdomen NEUROLOGIC: Alert and oriented. Cranial nerves II through XII grossly intact. ASSESSMENT: 1. Small bowel ileus possibly due to hypokalemia and hypomagnesemia 2. Hypokalemia 3. Hypomagnesemia 4. Colostomy reversal in October 2020 5. Chronic abdominal pain PLAN: -Advance diet to full liquids -Continue to monitor electrolytes -No surgical intervention planned -Continue supportive care -Continue pain medication as needed -Encourage patient to ambulate Physician Manager Pediatric note has been reviewed by physician. Signing provider agrees with the documented findings, assessment, and plan of care. Objective - Vital Signs Vital signs: Vital Signs Temp 97.7 F 01/10/21 07:00 Pulse 93 01/10/21 07:00 Resp 16 01/10/21 07:00 BP 155/83 01/10/21 07:00 Pulse Ox 97 01/10/21 07:00 Intake & Output 01/09/21 01/10/21 01/10/21 18:59 06:59 18:59 Intake Total 180 Balance 180 Weight 65.771 kg Intake: Oral 180 Other: Voiding Method Toilet # Voids 3 2 - Labs CBC & Chem 7: 01/08/21 20:38 01/10/21 05:04 Labs: Abnormal Lab Results - Last 24 Hours (Table) 01/10/21 Range/Units 05:04 Sodium 132 L (137-145) mmol/L Chloride 109 H (98-107) mmol/L Carbon Dioxide 21 L (22-30) mmol/L BUN 3 L (7-17) mg/dL Creatinine 0.37 L (0.52-1.04) mg/dL Calcium 7.6 L (8.4-10.2) mg/dL
--- NOTE | 2021-01-10 14:25 | P.PN ---
Subjective Patient is a 75-year-old the female with multiple episodes of partial small bowel obstruction and ileus given the same complaints of abdominal pain diffuse in the lower abdomen and unable to characterize the pain 9/10 in severity with no associated nausea or vomiting. She feels sick and bit lightheaded is bit hypernatremic was started on IV fluids and was hypokalemic potassium is being replaced patient had a CT of the abdomen which is showing ileus. Patient had a colostomy for a month ago patient denied any diarrhea. Patient is presently on Toradol for pain 01/10/2021 Patient daily as improved patient having good bowel sounds passing gas didn't move her bowel. Patient's sodium although did go down patient will be started on fluid restricted diet. powder worker tnt will evaluate the patient. He was evaluated by physical therapy and outpatient therapy with they're not recommending a subacute rehabilitation at this time. Patient probably can be monitored today advance her diet today possibility of discharge tomorrow Constitutional: Denied any fatigue denied any fever. Cardio vascular: denied any chest pain, palpitations Gastrointestinal denied any nausea vomiting Pulmonary: Denied any shortness of breath cough Neurologic denied any new focal deficits All inpatient medications were reviewed and appropriate changes in these medications as dictated in the interval history and assessment and plan. PHYSICAL EXAMINATION: GENERAL: The patient is alert and oriented x3, not in any acute distress. Well developed, well nourished. HEENT: Pupils are round and equally reacting to light. EOMI. No scleral icterus. No conjunctival pallor. Normocephalic, atraumatic. No pharyngeal erythema. No thyromegaly. CARDIOVASCULAR: S1 and S2 present. No murmurs, rubs, or gallops. PULMONARY: Chest is clear to auscultation, no wheezing or crackles. ABDOMEN: Soft, nontender, nondistended, sluggish bowel sounds. No palpable organomegaly. MUSCULOSKELETAL: No joint swelling or deformity. EXTREMITIES: No cyanosis, clubbing, or pedal edema. NEUROLOGICAL: Gross neurological examination did not reveal any focal deficits. SKIN: No rashes. 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 and will discontinue IV fluids patient will be on fluid restriction -Hypokalemia: Replaced -Hypomagnesemia replace magnesium -Atrial fibrillation paroxysmal: Presently rate controlled and anticoagulation will be resumed correlation at 10-coronary artery disease -Hypertension -Hypothyroidism -History of gastric bypass surgery and a colostomy with reversal recently DVT prophylaxis: on Eliquis Objective - Vital Signs Vital signs: Vital Signs Temp 97.7 F 01/10/21 07:00 Pulse 93 01/10/21 07:00 Resp 16 01/10/21 07:00 BP 155/83 01/10/21 07:00 Pulse Ox 97 01/10/21 07:00 Intake & Output 01/09/21 01/10/21 01/10/21 18:59 06:59 18:59 Intake Total 180 Balance 180 Weight 65.771 kg Intake: Oral 180 Other: Voiding Method Toilet # Voids 3 2 - Labs CBC & Chem 7: 01/08/21 20:38 01/10/21 05:04 Labs: Abnormal Lab Results - Last 24 Hours (Table) 01/10/21 Range/Units 05:04 Sodium 132 L (137-145) mmol/L Chloride 109 H (98-107) mmol/L Carbon Dioxide 21 L (22-30) mmol/L BUN 3 L (7-17) mg/dL Creatinine 0.37 L (0.52-1.04) mg/dL Calcium 7.6 L (8.4-10.2) mg/dL
[2021-01-10] MEDS: QUEtiapine 25 MG TAB PO SCH (20:58)
[2021-01-10] MEDS: FAMOTIDINE 20 MG TAB PO SCH (20:58)
[2021-01-10] MEDS: APIXABAN 5 MG TAB PO SCH (20:58)
[2021-01-10] MEDS: KETOROLAC 15 MG/ML 1 ML VIAL IVP PRN (20:58)
[2021-01-11] MEDS: HYDROmorphone 1 MG/ML 1 ML SYRINGE IVP PRN (01:06)
[2021-01-11] MEDS: LEVOTHYROXINE 100 MCG TAB PO SCH (05:26)
[2021-01-11] MEDS: KETOROLAC 15 MG/ML 1 ML VIAL IVP PRN ×3 (07:14→20:27)
[2021-01-11 07:44] LABS: African American GFR (CKD) >90 (>60 ml/min/1.73 sqM); Anion Gap 4 mmol/L; Blood Urea Nitrogen 2 mg/dL (7-17); Calcium 7.8 mg/dL (8.4-10.2); Carbon Dioxide 22 mmol/L (22-30); Chloride 108 mmol/L (98-107); Glucose 89 mg/dL (74-99); Non-African American GFR(CKD) >90 (>60 ml/min/1.73 sqM); Potassium 3.9 mmol/L (3.5-5.1); Sodium 134 mmol/L (137-145)
[2021-01-11] MEDS: APIXABAN 5 MG TAB PO SCH ×2 (09:42→20:26)
[2021-01-11] MEDS: FAMOTIDINE 20 MG TAB PO SCH ×2 (09:42→20:26)
--- NOTE | 2021-01-11 13:23 | P.PN ---
Subjective Progress Note Date: 01/11/21 CHIEF COMPLAINT: Abdominal pain HISTORY OF PRESENT ILLNESS: Patient reports some improvement in her abdominal pain. She reports that her pain feels better and more like just her usual chronic pain. She did have one episode of emesis after drinking orange juice. She reports that her appetite has improved and she wants something more than just oatmeal. She did have a bowel movement and flatus. Afebrile. Currently on a full liquid diet. Potassium 3.9 sodium 134 patient wants to be discharged home PHYSICAL EXAM: VITAL SIGNS: Reviewed. GENERAL: Well-developed in no acute distress. HEENT: No sclera icterus. Extraocular movements grossly intact. Moist buccal mucosa. Head is atraumatic, normocephalic. ABDOMEN: Soft. Nondistended. Decrease Tenderness with palpation of the mid abdomen NEUROLOGIC: Alert and oriented. Cranial nerves II through XII grossly intact. ASSESSMENT: 1. Small bowel ileus possibly due to hypokalemia and hypomagnesemia. Improving 2. Hypokalemia 3. Hypomagnesemia 4. Colostomy reversal in October 2020 5. Chronic abdominal pain PLAN: -Advance diet to regular -Patient can be discharged from surgical standpoint if tolerating diet -No surgical intervention planned -Continue supportive care Physician Miner Operator note has been reviewed by physician. Signing provider agrees with the documented findings, assessment, and plan of care. Objective - Vital Signs Vital signs: Vital Signs Temp 98 F 01/11/21 07:00 Pulse 78 01/11/21 07:00 Resp 18 01/11/21 07:00 BP 152/81 01/11/21 07:00 Pulse Ox 97 01/11/21 07:00 Intake & Output 01/10/21 01/11/21 01/11/21 18:59 06:59 18:59 Intake Total 120 Balance 120 Intake: Oral 120 Other: Voiding Method Toilet # Voids 2 1 1 - Labs CBC & Chem 7: 01/08/21 20:38 01/11/21 06:20 Labs: Abnormal Lab Results - Last 24 Hours (Table) 01/11/21 Range/Units 06:20 Sodium 134 L (137-145) mmol/L Chloride 108 H (98-107) mmol/L BUN 2 L (7-17) mg/dL Creatinine 0.37 L (0.52-1.04) mg/dL Calcium 7.8 L (8.4-10.2) mg/dL
[2021-01-11] MEDS ORDERED: Potassium Replacement Protocol 1 EACH MISC MISCELLANE PRN (13:56)
[2021-01-11] MEDS ORDERED: POTASSIUM CHLORIDE ER 20 MEQ TAB.ER PO SCH (14:00)
[2021-01-11] MEDS: QUEtiapine 25 MG TAB PO SCH (20:26)
[2021-01-11] MEDS ORDERED: LOPERAMIDE 2 MG CAP PO PRN (21:10)
[2021-01-11] MEDS ORDERED: HYDROcodone/APAP 10-325MG 1 EACH TAB PO PRN (21:12)
--- NOTE | 2021-01-11 21:16 | P.PN ---
Subjective Progress Note Date: 01/11/21 Patient is a 75-year-old the female with multiple episodes of partial small bowel obstruction and ileus given the same complaints of abdominal pain diffuse in the lower abdomen and unable to characterize the pain 12/16 in severity with no associated nausea or vomiting. She feels sick and bit lightheaded is bit hypernatremic was started on IV fluids and was hypokalemic potassium is being replaced patient had a CT of the abdomen which is showing ileus. Patient had a colostomy for a month ago patient denied any diarrhea. Patient is presently on Toradol for pain 01/10/2021 Patient daily as improved patient having good bowel sounds passing gas didn't move her bowel. Patient's sodium although did go down patient will be started on fluid restricted diet. tin recovery worker will evaluate the patient. He was evaluated by physical therapy and outpatient therapy with they're not recommending a subacute rehabilitation at this time. Patient probably can be monitored today advance her diet today possibility of discharge tomorrow 01/11/2021 Patient was evaluated today resting in bed, she was cleared by PT to go home with homecare. There was some family concerns per RN that patient isn't safe for discharge, however, after discussing with case management and patient, she can be discharged home in the morning. Pt is AO x3. She does report some diarrhea after eating a regular diet with lunch, denies blood in the stool. Immodium can be given as needed. It does appear pt was still requesting IV Dilaudid for abdominal pain earlier this morning. We will discontinue and resume home norco. Vital signs are stable. ROS Constitutional: Denied any fatigue denied any fever. Cardio vascular: denied any chest pain, palpitations Gastrointestinal denied any nausea vomiting, reports diarrhea after eating Pulmonary: Denied any shortness of breath cough Neurologic denied any new focal deficits All inpatient medications were reviewed and appropriate changes in these medications as dictated in the interval history and assessment and plan. PHYSICAL EXAMINATION: GENERAL: The patient is alert and oriented x3, not in any acute distress. Well developed, well nourished. HEENT: Pupils are round and equally reacting to light. EOMI. No scleral icterus. No conjunctival pallor. Normocephalic, atraumatic. No pharyngeal erythema. No thyromegaly. CARDIOVASCULAR: S1 and S2 present. No murmurs, rubs, or gallops. PULMONARY: Chest is clear to auscultation, no wheezing or crackles. ABDOMEN: Soft, nontender, nondistended, sluggish bowel sounds. No palpable organomegaly. MUSCULOSKELETAL: No joint swelling or deformity. EXTREMITIES: No cyanosis, clubbing, or pedal edema. NEUROLOGICAL: Gross neurological examination did not reveal any focal deficits. SKIN: No rashes. 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 and will discontinue IV fluids patient will be on fluid restriction -Hypokalemia: Replaced -Hypomagnesemia Replaced -Atrial fibrillation paroxysmal: Presently rate controlled and anticoagulation will be resumed -coronary artery disease -Hypertension -Hypothyroidism -History of gastric bypass surgery and a colostomy with reversal recently DVT prophylaxis: on Eliquis Discharge home in the morning, if tolerating diet Objective - Vital Signs Vital signs: Vital Signs Temp 98.2 F 01/11/21 14:52 Pulse 87 01/11/21 14:52 Resp 16 01/11/21 14:52 BP 129/60 01/11/21 14:52 Pulse Ox 94 L 01/11/21 14:52 Intake & Output 01/11/21 01/11/21 01/12/21 06:59 18:59 06:59 Intake Total 360 Balance 360 Intake: Oral 360 Other: Voiding Method Toilet # Voids 1 1 - Labs CBC & Chem 7: 01/08/21 20:38 01/11/21 06:20 Labs: Abnormal Lab Results - Last 24 Hours (Table) 01/11/21 Range/Units 06:20 Sodium 134 L (137-145) mmol/L Chloride 108 H (98-107) mmol/L BUN 2 L (7-17) mg/dL Creatinine 0.37 L (0.52-1.04) mg/dL Calcium 7.8 L (8.4-10.2) mg/dL Assessment and Plan Time with Patient: Greater than 30
[2021-01-12] MEDS: CALCIUM CARBONATE 500 MG CHEWABLE PO PRN ×2 (00:08→00:11)
[2021-01-12] MEDS: PANTOPRAZOLE 40 MG TABLET PO SCH ×2 (00:08→07:22)
[2021-01-12] MEDS: KETOROLAC 15 MG/ML 1 ML VIAL IVP PRN (02:38)
[2021-01-12 03:12] VITALS: RESP 20
[2021-01-12 05:25] LABS: African American GFR (CKD) >90 (>60 ml/min/1.73 sqM); Anion Gap 5 mmol/L; Blood Urea Nitrogen <2 mg/dL (7-17); Calcium 8.2 mg/dL (8.4-10.2); Carbon Dioxide 21 mmol/L (22-30); Chloride 110 mmol/L (98-107); Glucose 95 mg/dL (74-99); Magnesium 1.5 mg/dL (1.6-2.3); Non-African American GFR(CKD) >90 (>60 ml/min/1.73 sqM); Potassium 4.2 mmol/L (3.5-5.1); Sodium 136 mmol/L (137-145)
[2021-01-12] MEDS: LEVOTHYROXINE 100 MCG TAB PO SCH (06:18)
[2021-01-12] MEDS: APIXABAN 5 MG TAB PO SCH (07:22)
[2021-01-12 07:57] VITALS: BP 179/70; PULSE 90; TEMP 97.8
[2021-01-12] MEDS: MAGNESIUM SULFATE-D5W PMX 1 GM in DEXTROSE/WATER 1 100ML.BAG IVPB SCH ×2 (08:41→09:43)
[2021-01-12] MEDS ORDERED: METOPROLOL TARTRATE 25 MG TAB PO SCH (09:00)
[2021-01-12 09:54] LABS: Basophils # (A) 0.03 X 10*3/uL (0.00-0.10); Basophils % (A) 0.6 %; Eosinophils # (A) 0.12 X 10*3/uL (0.04-0.35); Eosinophils % (A) 2.4 %; HCT 28.7 % (37.2-46.3); HGB 9.2 g/dL (12.0-15.0); Lymphocytes # (A) 2.27 X 10*3/uL (0.90-5.00); Lymphocytes % (A) 45.9 %; MCH 29.9 pg (27.0-32.0); MCHC 32.1 g/dL (32.0-37.0); MCV 93.2 fL (80.0-97.0); Mean Platelet Volume 10.6 fL (9.5-12.2); Monocytes # (A) 0.89 X 10*3/uL (0.20-1.00); Neutrophils # (A) 1.64 X 10*3/uL (1.80-7.70); Neutrophils % (A) 33.1 %; Platelet Count 229 X 10*3/uL (140-440); RBC 3.08 X 10*6/uL (4.10-5.20); RDW 20.2 % (11.5-14.5); WBC 4.95 X 10*3/uL (4.50-10.00)
--- NOTE | 2021-01-12 10:48 | P.PN ---
Subjective Progress Note Date: 01/12/21 CHIEF COMPLAINT: Abdominal pain HISTORY OF PRESENT ILLNESS: Patient reports her abdominal pain feels like her chronic pain. She denies any new pain. She was kept yesterday for diarrhea. She was given Imodium by medicine service. Patient reports that her stools were loose but not watery. She states that this happens sometimes for her. She was able to tolerate breakfast without vomiting. She is afebrile. WBC is 4.95 hemoglobin 9.2 potassium 4.2 magnesium 1.5 PHYSICAL EXAM: VITAL SIGNS: Reviewed. GENERAL: Well-developed in no acute distress. HEENT: No sclera icterus. Extraocular movements grossly intact. Moist buccal mucosa. Head is atraumatic, normocephalic. ABDOMEN: Soft. Nondistended. Decrease Tenderness with palpation of the mid abdomen NEUROLOGIC: Alert and oriented. Cranial nerves II through XII grossly intact. ASSESSMENT: 1. Small bowel ileus possibly due to hypokalemia and hypomagnesemia. Improving 2. Hypokalemia 3. Hypomagnesemia 4. Colostomy reversal in October 2020 5. Chronic abdominal pain PLAN: -Patient can be discharged from surgical standpoint -Continue supportive care -Replace magnesium Physician Metal Cabinet Finisher note has been reviewed by physician. Signing provider agrees with the documented findings, assessment, and plan of care. Objective - Vital Signs Vital signs: Vital Signs Temp 97.8 F 01/12/21 07:56 Pulse 90 01/12/21 07:56 Resp 20 01/12/21 08:00 BP 179/70 01/12/21 07:56 Pulse Ox 99 01/12/21 07:56 Intake & Output 01/11/21 01/12/21 01/12/21 18:59 06:59 18:59 Intake Total 360 240 Balance 360 240 Intake: Oral 360 240 Other: Voiding Method Toilet Toilet # Voids 1 2 - Labs CBC & Chem 7: 01/12/21 04:30 01/12/21 04:30 Labs: Abnormal Lab Results - Last 24 Hours (Table) 01/12/21 01/12/21 Range/Units 04:30 04:30 RBC 3.08 L (4.10-5.20) X 10*6/uL Hgb 9.2 L (12.0-15.0) g/dL Hct 28.7 L (37.2-46.3) % RDW 20.2 H (11.5-14.5) % Neutrophils # 1.64 L (1.80-7.70) X 10*3/uL Sodium 136 L (137-145) mmol/L Chloride 110 H (98-107) mmol/L Carbon Dioxide 21 L (22-30) mmol/L BUN <2 L (7-17) mg/dL Creatinine 0.37 L (0.52-1.04) mg/dL Calcium 8.2 L (8.4-10.2) mg/dL Magnesium 1.5 L (1.6-2.3) mg/dL
--- NOTE | 2021-01-12 14:22 | P.DS ---
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 She will follow up with general surgery as needed. She can follow-up with her primary care provider. Her pain management provider is in [place] and she is given information on local pain management. Repeat labs in 2-3 days. Hospital course This is a pleasant 75-year-old female who presents with multiple episodes of partial small bowel obstruction ileus with abdominal pain diffuse in the lower abdomen. CT abdomen pelvis completed in the did demonstrate an ileus. Patient describes her pain is under 10 severity however she is unable to describe the pain just states that it hurts. She denies any nausea or vomiting. She was evaluated by surgical services appointment for liquid diet. She tolerated that well and was advanced to regular diet at lunch. After that she feels she was having diarrhea. Magnesium and potassium were low replaced per protocol. She is discharged home on oral supplementation for this. PT OT is not recommending subacute rehab at this time she can go home. Patient has a past medical history for A. fib, maintained on eliquis, coronary artery disease, GERD, GI bleed, thyroid, history of bowel resection with colostomy and reversal 1 month ago. The patient states that she is having abdominal pain and diarrhea since surgery. She takes Clayton tens at home and also she states morphine from a pain provider in [place]. Labs today including hemoglobin of 9.2, sodium 136, potassium 4.2, mag 1.5. 01/12/2021 Patient is cleared by surgical services for discharge. We replaced her rheumatoid symptoms center on oral supplementation to recheck her labs in 2-3 days. She is given referrals for discharge follow-up. Lungs are clear, S1-S2 auscultated, abdomen is soft positive bowel sounds. She has mild tenderness around the surgical incision. Incision is clean and dry approximated healed well, there is no signs of erythema or infection. She denies any blood in the stool, urinating without difficulty. Vital signs are stable today, blood pressure is 150s radius. Patient does state that she ran out of her medication and was unable to follow up with Dr. Bowman in time to get the refill. We did send her some metoprolol, such her to Pepcid due to the hypomagnesemia, refilled her eliquis. She can take Imodium as needed for the diarrhea. We did hold her Lasix. Please see medication reconciliation for list of current medications. Thank you for allowing us to participate in the care of this patient. Patient Condition at Discharge: Fair Plan - Discharge Summary New Discharge Prescriptions: New Metoprolol Tartrate [Lopressor] 25 mg PO BID #60 tab Calcium Carbonate [Tums] 500 mg PO QID PRN tab PRN Reason: Heartburn Apixaban [Eliquis] 5 mg PO BID #60 tab Loperamide [Imodium] 2 mg PO QID PRN #0 cap PRN Reason: Diarrhea Magnesium Oxide [Mag-Ox] 400 mg PO BID #60 tablet Famotidine [Pepcid] 20 mg PO BID #60 tablet Continue Levothyroxine Sodium [Synthroid] 200 mcg PO DAILY QUEtiapine FUMARATE [SEROquel] 25 mg PO HS 30 Days #30 tab Ondansetron Odt [Zofran ODT] 4 mg PO Q8HR PRN #10 tab PRN Reason: Nausea HYDROcodone/APAP 10-325MG [Clayton 10-325] 1 tab PO QID PRN PRN Reason: Pain LORazepam [Ativan] 0.25 mg PO BID PRN PRN Reason: Anxiety Aspirin [Adult Low Dose Aspirin EC] 81 mg PO DAILY 30 Days #30 tab Discontinued Furosemide [Lasix] 20 mg PO DAILY Apixaban [Eliquis] 5 mg PO BID 30 Days #60 tab Pantoprazole [Protonix] 40 mg PO DAILY 30 Days #30 tab Discharge Medication List Levothyroxine Sodium [Synthroid] 200 mcg PO DAILY 01/12/19 [History] QUEtiapine FUMARATE [SEROquel] 25 mg PO HS 30 Days #30 tab 09/26/20 [Rx] LORazepam [Ativan] 0.25 mg PO BID PRN 11/25/20 [History] Aspirin [Adult Low Dose Aspirin EC] 81 mg PO DAILY 30 Days #30 tab 12/02/20 [Rx] Ondansetron Odt [Zofran ODT] 4 mg PO Q8HR PRN #10 tab 12/04/20 [Rx] HYDROcodone/APAP 10-325MG [Clayton 10-325] 1 tab PO QID PRN 01/09/21 [History] Apixaban [Eliquis] 5 mg PO BID #60 tab 01/12/21 [Rx] Calcium Carbonate [Tums] 500 mg PO QID PRN tab 01/12/21 [Rx] Famotidine [Pepcid] 20 mg PO BID #60 tablet 01/12/21 [Rx] Loperamide [Imodium] 2 mg PO QID PRN #0 cap 01/12/21 [Rx] Magnesium Oxide [Mag-Ox] 400 mg PO BID #60 tablet 01/12/21 [Rx] Metoprolol Tartrate [Lopressor] 25 mg PO BID #60 tab 01/12/21 [Rx] Follow up Appointment(s)/Referral(s): Joey Valdez MD [Primary Care Provider] - 01/18/21 1:50 pm (Needs referral for Pain Clinic to obtain appointment) [facility] [NON-STAFF] - 1 Week (Needs referral from Dr Valdez) Phil Butr MD [STAFF PHYSICIAN] - 01/19/21 2:30 pm Ambulatory/Diagnostic Orders: Basic Metabolic Panel [LAB.AMB] Time Frame: 2 Days, Location: None Selected Complete Blood Count w/diff [LAB.AMB] Time Frame: 2 Days, Location: None Selected Patient Instructions/Handouts: Dehydration (DC), Chronic Abdominal Pain (GEN) Activity/Diet/Wound Care/Special Instructions: Please make follow up with Dr Valdez Pt was out of her home medications, refilled Check labs in 2 days
== END 2021-01-12 13:34 | disposition home or self-care (01) ==
LOC: EC 20:13 → 6NMEDSUR 23:30 → OBSVTOIN 01-09 11:40 → INTOOBSV 01-09 11:40 → UNDODISIN 01-12 13:34
PROVIDERS: ADMIT Hospitalist; ATTEND Hospitalist
DX: K56.7 Ileus, unspecified (principal); E22.2 Syndrome of inappropriate secretion of antidiuretic hormone; K56.600 Partial intestinal obstruction, unspecified as to cause; E86.0 Dehydration; E87.0 Hyperosmolality and hypernatremia; E83.42 Hypomagnesemia; E87.6 Hypokalemia; K76.0 Fatty (change of) liver, not elsewhere classified; E03.9 Hypothyroidism, unspecified; I10 Essential (primary) hypertension; I48.0 Paroxysmal atrial fibrillation; I25.10 Atherosclerotic heart disease of native coronary artery without angina pectoris; M19.90 Unspecified osteoarthritis, unspecified site; G89.29 Other chronic pain; M54.9 Dorsalgia, unspecified; R10.9 Unspecified abdominal pain; K21.9 Gastro-esophageal reflux disease without esophagitis; F41.0 Panic disorder [episodic paroxysmal anxiety]; F32.9 Major depressive disorder, single episode, unspecified; F41.9 Anxiety disorder, unspecified; K29.70 Gastritis, unspecified, without bleeding; H91.90 Unspecified hearing loss, unspecified ear; E66.9 Obesity, unspecified; Z68.25 Body mass index [BMI] 25.0-25.9, adult; Z20.828 Contact with and (suspected) exposure to other viral communicable diseases; Z79.01 Long term (current) use of anticoagulants; Z79.82 Long term (current) use of aspirin; Z79.890 Hormone replacement therapy; Z79.899 Other long term (current) drug therapy; Z88.1 Allergy status to other antibiotic agents; Z91.040 Latex allergy status; Z96.653 Presence of artificial knee joint, bilateral; Z87.891 Personal history of nicotine dependence; Z87.11 Personal history of peptic ulcer disease; Z98.84 Bariatric surgery status; Z90.49 Acquired absence of other specified parts of digestive tract; Z95.5 Presence of coronary angioplasty implant and graft; Z86.19 Personal history of other infectious and parasitic diseases; Z85.21 Personal history of malignant neoplasm of larynx; Z92.3 Personal history of irradiation; Z90.710 Acquired absence of both cervix and uterus; Z86.14 Personal history of Methicillin resistant Staphylococcus aureus infection; Z16.22 Resistance to vancomycin related antibiotics; Z98.42 Cataract extraction status, left eye; Z98.890 Other specified postprocedural states; Z86.69 Personal history of other diseases of the nervous system and sense organs; Z87.19 Personal history of other diseases of the digestive system; Z87.828 Personal history of other (healed) physical injury and trauma; Z82.49 Family history of ischemic heart disease and other diseases of the circulatory system; Z83.3 Family history of diabetes mellitus; Z80.9 Family history of malignant neoplasm, unspecified
CPT/HCPCS: 96376 ×4; 96361 ×3; 96366 ×2; 96367; 96372 ×2; 96375 ×3; 96365; 99285; 36415; 97162; 80053; 80048 ×3; 82150; 82550; 83605; 83690; 83735 ×3; 84132; 84484; 85025 ×2; 85610; 85730; 81001; 80306; 87635; 74018; 74177; G0378 ×5; J3480; J1650 ×2; J1170 ×3; J3475 ×2; J1885 ×5; Q9967; 96374

== ENCOUNTER 2021-03-01 14:55 | Observation (INO) | payer MEDICARE ==
[2021-03-01] MEDS ORDERED: MORPHINE SULFATE 4 MG/ML SYRINGE IV STA (19:13)
[2021-03-01] MEDS ORDERED: SODIUM CHLORIDE 0.9% 500 ML 500 ML IV STA (19:13)
[2021-03-01] MEDS ORDERED: ONDANSETRON 4 MG/2 ML VIAL IVP STA (19:13)
[2021-03-01 21:35] LABS: Anisocytosis Slight; Basophils % (A) 1 %; Eosinophils % (A) 0 %; HCT 39.5 % (34.0-46.0); HGB 13.1 gm/dL (11.4-16.0); Lymphocytes # (A) 1.6 k/uL (1.0-4.8); Lymphocytes % (A) 28 %; MCH 33.1 pg (25.0-35.0); MCHC 33.2 g/dL (31.0-37.0); MCV 99.7 fL (80.0-100.0); Macrocytosis Slight; Mean Platelet Volume 7.5; Monocytes # (A) 0.6 k/uL (0-1.0); Monocytes % (A) 10 %; Neutrophils # (A) 3.4 k/uL (1.3-7.7); Neutrophils % (A) 58 %; Platelet Count 261 k/uL (150-450); RBC 3.97 m/uL (3.80-5.40); RDW 17.1 % (11.5-15.5); WBC 5.8 k/uL (3.8-10.6)
--- NOTE | 2021-03-01 21:36 | ED ---
Abdominal Pain HPI - General Chief Complaint: Abdominal Pain Stated Complaint: Nausea/Vomiting/Diarrhea Time Seen by Provider: 03/01/21 18:23 Source: patient Mode of arrival: wheelchair Limitations: no limitations - History of Present Illness Initial Comments: 75 year-old female patient presents to the emergency department for evaluation of abdominal pain, vomiting, and fever. States symptoms started today. She was at [facility] last week for similar symptoms. She denies any hematemesis, hematochezia, or melena. Denies any dysuria, hematuria, urinary frequency, or urgency. He has had history of colon resection. Patient denies any recent rash, cough, shortness of breath, chest pain, constipation, back pain, numbness, tingling, dizziness, weakness, headache, visual changes, or any other complaints. - Related Data Home Medications Medication Instructions Recorded Confirmed Levothyroxine Sodium [Synthroid] 200 mcg PO DAILY 01/12/19 03/01/21 LORazepam [Ativan] 0.5 mg PO HS PRN 11/25/20 03/01/21 HYDROcodone/APAP 10-325MG [[place] 1 tab PO QID PRN 01/09/21 03/01/21 10-325] Amoxic-Pot Clav 875-125Mg 1 tab PO BID 03/01/21 03/01/21 [Augmentin 875-125] Megestrol Acetate 40 mg PO BID 03/01/21 03/01/21 hydrOXYzine HCL [Atarax] 10 mg PO HS 03/01/21 03/01/21 Previous Rx's Medication Instructions Recorded Aspirin [Adult Low Dose Aspirin EC] 81 mg PO DAILY 30 Days #30 tab 12/02/20 Ondansetron Odt [Zofran ODT] 4 mg PO Q8HR PRN #10 tab 12/04/20 Apixaban [Eliquis] 5 mg PO BID #60 tab 01/12/21 Calcium Carbonate [Tums] 500 mg PO QID PRN tab 01/12/21 Famotidine [Pepcid] 20 mg PO BID #60 tablet 01/12/21 Loperamide [Imodium] 2 mg PO QID PRN #0 cap 01/12/21 Magnesium Oxide [Mag-Ox] 400 mg PO BID #60 tablet 01/12/21 Metoprolol Tartrate [Lopressor] 25 mg PO BID #60 tab 01/12/21 Allergies Allergy/AdvReac Type Severity Reaction Status Date / Time latex Allergy Unknown Verified 03/01/21 20:13 vancomycin Allergy Rash/Hives Verified 03/01/21 20:13 Review of Systems ROS Statement: Those systems with pertinent positive or pertinent negative responses have been documented in the HPI. ROS Other: All systems not noted in ROS Statement are negative. Past Medical History Past Medical History: Atrial Fibrillation, Coronary Artery Disease (CAD), Cancer, Eye Disorder, GERD/Reflux, GI Bleed, Hearing Disorder / Deafness, Hypertension, Musculoskeletal Disorder, Osteoarthritis (OA), Thyroid Disorder Additional Past Medical History / Comment(s): Peptic ulcer, chronic back pain, laryngeal cancer/tx-approx 20 yrs ago, head injury in 2012, cataract removal left eye. Pt states she has a hole in her left eardrum. 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 SHOULDER Past Surgical History: Bariatric Surgery, Bowel Resection, Cholecystectomy, Heart Catheterization, Heart Catheterization With Stent, Hysterectomy, Joint Replacement, Orthopedic Surgery Additional Past Surgical History / Comment(s): 1 stent, Bilateral knee replacement, left shoulder rotator cuff surgery, gastric bypass, D&C w/ corrective surgery, EGD/colonoscopy, laryngeal tumor removed 30 radiation treatments about 20 years ago, Ganglion Cysts both wrists.PAIN CLINIC INJECTIONS, colostomy 06/2020 w/ reversal in August Past Anesthesia/Blood Transfusion Reactions: No Reported Reaction Date of Last Stent Placement:: 2003 Past Psychological History: Anxiety, Depression, Panic Disorder Smoking Status: Former smoker Past Alcohol Use History: Occasional Past Drug Use History: None Reported - Past Family History Mother Family Medical History: Cancer, Congestive Heart Failure (CHF), Diabetes Mellitus, Hypertension Additional Family Medical History / Comment(s): Mother passed at 93. Father Family Medical History: Myocardial Infarction (RI) Additional Family Medical History / Comment(s): Father of a RI at the age of 39 yrs. Sister(s) Family Medical History: Cancer Brother(s) Family Medical History: Cancer, Myocardial Infarction (RI) General Exam Limitations: no limitations General appearance: alert, in no apparent distress, other (This is a well- developed, well-nourished adult female patient in no acute distress.) Eye exam: Present: normal appearance, PERRL, EOMI. Absent: scleral icterus, conjunctival injection, periorbital swelling ENT exam: Present: normal exam, normal oropharynx, mucous membranes moist Respiratory exam: Present: normal lung sounds bilaterally. Absent: respiratory distress, wheezes, rales, rhonchi, stridor Cardiovascular Exam: Present: regular rate, normal rhythm, normal heart sounds. Absent: systolic murmur, diastolic murmur, rubs, gallop, clicks GI/Abdominal exam: Present: soft, tenderness (Left lower quadrant), normal bowel sounds. Absent: distended, guarding, rebound, rigid Neurological exam: Present: alert, oriented X3, CN II-XII intact Psychiatric exam: Present: normal affect, normal mood Skin exam: Present: warm, dry, intact, normal color. Absent: rash Course Vital Signs 03/01/21 16:06 Temperature 97.6 F Pulse Rate 70 Respiratory 20 Rate Blood Pressure 146/102 O2 Sat by Pulse 95 Oximetry Medical Decision Making - Medical Decision Making 75 year-old female patient presented to the emergency department today for evaluation of vomiting and left lower quadrant abdominal pain, reported fever at home of 102F. Physical examination did reveal left lower quadrant tenderness. Patient appeared pale. Labs reviewed and showed low potassium at 3.1. Added magnesium. Elevated troponin 0.053. Elevated lactic 2.3, not felt to be related to sepsis, wbc is normal. She has not had chest pain at any time during her visit here. EKGs were obtained and did show ST depression V2 V3, T-wave abnormalities that are new compared to her previous EKG in November of this year. Did repeat EKGs 2. 3rd EKG showed left bundle branch block, she did have evidence for LBBB on EKG from 09/2020. She'll be admitted to the hospital for serial troponins and further evaluation by cardiology. Patient is agreeable to this plan. Case discussed with my attending Dr. Mckinney. - Lab Data Result diagrams: 03/01/21 21:23 03/01/21 21:23 Lab Results 03/01/21 03/01/21 03/01/21 Range/Units 21:23 21:23 21:23 WBC 5.8 (3.8-10.6) k/uL RBC 3.97 (3.80-5.40) m/uL Hgb 13.1 (11.4-16.0) gm/dL Hct 39.5 (34.0-46.0) % MCV 99.7 (80.0-100.0) fL MCH 33.1 (25.0-35.0) pg MCHC 33.2 (31.0-37.0) g/dL RDW 17.1 H (11.5-15.5) % Plt Count 261 (150-450) k/uL MPV 7.5 Neutrophils % 58 % Lymphocytes % 28 % Monocytes % 10 % Eosinophils % 0 % Basophils % 1 % Neutrophils # 3.4 (1.3-7.7) k/uL Lymphocytes # 1.6 (1.0-4.8) k/uL Monocytes # 0.6 (0-1.0) k/uL Eosinophils # 0.0 (0-0.7) k/uL Basophils # 0.0 (0-0.2) k/uL Anisocytosis Slight Macrocytosis Slight Sodium 130 L (137-145) mmol/L Potassium 3.1 L (3.5-5.1) mmol/L Chloride 101 (98-107) mmol/L Carbon Dioxide 23 (22-30) mmol/L Anion Gap 6 mmol/L BUN 2 L (7-17) mg/dL Creatinine 0.40 L (0.52-1.04) mg/dL Est GFR (CKD-EPI)AfAm >90 (>60 ml/min/1.73 sqM) Est GFR (CKD-EPI)NonAf >90 (>60 ml/min/1.73 sqM) Glucose 108 H (74-99) mg/dL Plasma Lactic Acid Anthony 2.8 H* (0.7-2.0) mmol/L Calcium 8.1 L (8.4-10.2) mg/dL Magnesium (1.6-2.3) mg/dL Total Bilirubin 1.0 (0.2-1.3) mg/dL AST 44 H (14-36) U/L ALT 21 (4-34) U/L Alkaline Phosphatase 141 H (38-126) U/L Troponin I (0.000-0.034) ng/mL Total Protein 6.5 (6.3-8.2) g/dL Albumin 3.0 L (3.5-5.0) g/dL Lipase 50 (23-300) U/L Urine Color Urine Appearance (Clear) Urine pH (5.0-8.0) Ur Specific [place] (1.001-1.035) Urine Protein (Negative) Urine Glucose (UA) (Negative) Urine Ketones (Negative) Urine Blood (Negative) Urine Nitrite (Negative) Urine Bilirubin (Negative) Urine Urobilinogen (<2.0) mg/dL Ur Leukocyte Esterase (Negative) 03/01/21 03/01/21 03/01/21 Range/Units 21:23 21:23 22:35 WBC (3.8-10.6) k/uL RBC (3.80-5.40) m/uL Hgb (11.4-16.0) gm/dL Hct (34.0-46.0) % MCV (80.0-100.0) fL MCH (25.0-35.0) pg MCHC (31.0-37.0) g/dL RDW (11.5-15.5) % Plt Count (150-450) k/uL MPV Neutrophils % % Lymphocytes % % Monocytes % % Eosinophils % % Basophils % % Neutrophils # (1.3-7.7) k/uL Lymphocytes # (1.0-4.8) k/uL Monocytes # (0-1.0) k/uL Eosinophils # (0-0.7) k/uL Basophils # (0-0.2) k/uL Anisocytosis Macrocytosis Sodium (137-145) mmol/L Potassium (3.5-5.1) mmol/L Chloride (98-107) mmol/L Carbon Dioxide (22-30) mmol/L Anion Gap mmol/L BUN (7-17) mg/dL Creatinine (0.52-1.04) mg/dL Est GFR (CKD-EPI)AfAm (>60 ml/min/1.73 sqM) Est GFR (CKD-EPI)NonAf (>60 ml/min/1.73 sqM) Glucose (74-99) mg/dL Plasma Lactic Acid Anthony (0.7-2.0) mmol/L Calcium (8.4-10.2) mg/dL Magnesium 1.4 L (1.6-2.3) mg/dL Total Bilirubin (0.2-1.3) mg/dL AST (14-36) U/L ALT (4-34) U/L Alkaline Phosphatase (38-126) U/L Troponin I 0.053 H* (0.000-0.034) ng/mL Total Protein (6.3-8.2) g/dL Albumin (3.5-5.0) g/dL Lipase (23-300) U/L Urine Color Light Yellow Urine Appearance Clear (Clear) Urine pH 7.5 (5.0-8.0) Ur Specific [place] 1.008 (1.001-1.035) Urine Protein Negative (Negative) Urine Glucose (UA) Negative (Negative) Urine Ketones Trace H (Negative) Urine Blood Negative (Negative) Urine Nitrite Negative (Negative) Urine Bilirubin Negative (Negative) Urine Urobilinogen <2.0 (<2.0) mg/dL Ur Leukocyte Esterase Negative (Negative) - EKG Data -: EKG Interpreted by Ga EKG Comments: EKG #1 obtained at 2235 shows sinus rhythm with prolonged QT interval and ST depression in V2 and V3. Ventricular rate is 69, P return to 186, QRS duration 82, QT 618, QTC 662. EKG #2 reveals normal sinus rhythm with prolonged QT interval. Ventricular rate is 72, KS interval 206, QRS duration 84, QTC 592, QTc 648. Redemonstrated ST depression in V2. EKG #3 shows normal sinus rhythm with left bundle branch block with a ventricular rate of 80, KS interval 208, QRS duration 160, QTC 490, QTc 565. No evidence of ST elevation or depression. - Radiology Data Radiology results: report reviewed, image reviewed CT abdomen and pelvis with contrast was obtained. Report was reviewed in its entirety. Impression by Dr. Recinos shows previous gastric bypass surgery. Fatty infiltration of the liver. There is some mild wall thickening of the sigmoid colon that could relate to some nonspecific colitis and appears to be a change compared to last exam. Disposition Clinical Impression: Abdominal pain, NSTEMI (non-ST elevated myocardial infarction), Abnormal EKG Disposition: ADMITTED IP TO THIS [facility] Condition: Serious Referrals: Joey Valdez MD [Primary Care Provider] - 1-2 days Decision to Admit Reason: Admit from EC Decision Date: 03/01/21 Decision Time: 23:18
[2021-03-01 21:44] LABS: ALT 21 U/L (4-34); AST 44 U/L (14-36); African American GFR (CKD) >90 (>60 ml/min/1.73 sqM); Alkaline Phosphatase 141 U/L (38-126); Anion Gap 6 mmol/L; Blood Urea Nitrogen 2 mg/dL (7-17); Calcium 8.1 mg/dL (8.4-10.2); Carbon Dioxide 23 mmol/L (22-30); Chloride 101 mmol/L (98-107); Glucose 108 mg/dL (74-99); Lipase 50 U/L (23-300); Non-African American GFR(CKD) >90 (>60 ml/min/1.73 sqM); Potassium 3.1 mmol/L (3.5-5.1); Sodium 130 mmol/L (137-145); Total Protein 6.5 g/dL (6.3-8.2)
[2021-03-01] MEDS ORDERED: POTASSIUM CHLORIDE ER 20 MEQ TAB.ER PO STA (21:46)
--- NOTE | 2021-03-01 22:44 | CT ---
EXAMINATION TYPE: CT abdomen pelvis w con DATE OF EXAM: 03/01/2021 COMPARISON: 01/08/2021 HISTORY: pain CT DLP: 752.2 mGycm Automated exposure control for dose reduction was used. CONTRAST: Performed with IV Contrast, patient injected with 100 mL of Isovue 300. Images obtained from the diaphragm to the floor the pelvis with IV contrast. Lung bases are clear. There is no pleural effusion. Heart size is normal. There is no pericardial eff usion. There is some fatty infiltration of the liver. There are clips from cholecystectomy. The bile ducts are not dilated. Spleen is intact. There are numerous surgical clips on the stomach. There is n o evidence of pancreatic mass. There is no adrenal mass. Kidneys show satisfactory contrast opacification. There is no hydronephrosi s. Ureters are not dilated. There is no retroperitoneal adenopathy. Bladder distends smoothly. There is no inguinal hernia. There is no free fluid in the pelvis. There is previous large bowel surgery. T here are clips at the proximal sigmoid colon. There is some mild sigmoid colon wall thickening. Appendix is not seen. No sign of thickened appendix. There is no free air. There is no ascites. There is no evidence of a bowel obstruction. The lumbar spine shows a first-degree L4-5 spondylolisthesis. There is no compression fracture. There is a mild retrolisthesis at L2-3. There is multilevel degene rative disc space narrowing with spurring and sclerosis. There is no compression fracture. Bony pelvi s is intact. There is mild lumbar dextroscoliosis. There is some mild sclerosis in the femoral heads that could re late to developing avascular necrosis. IMPRESSION: Previous gastric bypass surgery. Fatty infiltration of the liver. There is some mild wall thickening of the sigmoid colon that could relate to some nonspecific colitis and appears to be a change compare d to last exam.
[2021-03-01] MEDS ORDERED: MORPHINE SULFATE 2 MG/ML SYRINGE IVP STA (22:48)
[2021-03-01 23:02] LABS: Appearance,Urine Clear (Clear); Bilirubin,Urine Negative (Negative); Blood,Urine Negative (Negative); Color,Urine Light Yellow; Glucose,Urine (UA) Negative (Negative); Ketones,Urine Trace (Negative); Leukocyte Esterase,Urine Negative (Negative); Nitrite,Urine Negative (Negative); PH, Urine 7.5 (5.0-8.0); Protein,Urine Negative (Negative); Specific Gravity,Urine 1.008 (1.001-1.035); Urobilinogen,Urine <2.0 mg/dL (<2.0)
[2021-03-01] MEDS ORDERED: MORPHINE SULFATE 4 MG/ML SYRINGE IV PRN (23:19)
[2021-03-01] MEDS ORDERED: ASPIRIN 81 MG PO STA (23:19)
[2021-03-01] MEDS ORDERED: Magnesium Replacement Protocol 1 EACH MISC MISCELLANE PRN (23:34)
[2021-03-01] MEDS ORDERED: CALCIUM CARBONATE 500 MG CHEWABLE PO STA (23:46)
[2021-03-02] MEDS: MAGNESIUM SULFATE-D5W PMX 1 GM in DEXTROSE/WATER 1 100ML.BAG IVPB SCH ×3 (01:32→04:19)
[2021-03-02 04:39] LABS: Magnesium 2.2 mg/dL (1.6-2.3)
[2021-03-02] MEDS ORDERED: ASPIRIN 325 MG TAB PO SCH (09:00)
[2021-03-02 09:06] LABS: Chol/HDL Ratio 2.03 Ratio; LDL Cholesterol,Calculated 67.5 mg/dL (0.0-131.0)
--- NOTE | 2021-03-02 11:34 | P.EPCON ---
Electrophysiology Consult - EP Consult Electrophysiology Consult: Patient was admitted with fever nausea vomiting and lower abdominal discomfort She describes and points to pain in the hypogastric region She has no epigastric discomfort no chest discomfort She's had 3 EKGs done in the ER The first EKG shows sinus rhythm with a narrow QRS with a heart rate is 72 beats a minute with deep T-wave inversions in all precordial leads and in the inferior leads The second EKG shows sinus rhythm with a narrow QRS but when the heart rate increases ever so slightly the QRS changes to her left bundle branch block morphology with normal ST segments The third twelve-lead EKG shows sinus rhythm with a left bundle branch block with normal ST segments consistent with a left bundle branch block morphology These changes in the T-wave abnormality noted in the QRS is narrow represents cardiac memory The patient is completely stable she has no chest discomfort She did not come in with an unstable angina-type picture Borderline troponins are flat and do not show a rise and fall pattern and a 0.04 The diffuse/deep T-wave inversions seen during narrow QRS and the level of the troponins represent an EKG-troponin mismatch We will order 2-D echo and Doppler study Please see full dictation by nurse practitioner
[2021-03-02] MEDS ORDERED: KETOROLAC 30 MG/ML 1 ML VIAL IVP SCH (12:00)
--- NOTE | 2021-03-02 12:14 | P.CRDCN ---
History of Present Illness History of present illness: This is Dr. Garcia dictating a consult on this patient The patient was interviewed and examined IMPRESSION / ASSESSMENT: Abnormal EKG during a narrow QRS with deep T-wave inversions fairly diffuse consistent with cardiac memory Rate-related left bundle branch block morphology with normal ST segments This electrolyte anemia with low sodium low potassium and low magnesium and elevated lactic acid levels abnormal troponins of unclear significance Clinical history not consistent with acute coronary syndrome or unstable angina. Patient denies chest discomfort or shortness of breath Inflammation of the wall of the sigmoid colon on computed tomography scan PLAN: Continue metoprolol 25 mg twice daily Continue baby aspirin Continue ELIQUIS 2-D echo and Doppler study However irrespective what the LV function shows, these EKG changes do not represent acute myocardial infarction, or acute coronary syndrome These represent cardiac memory when she transitions from a left bundle branch block QRS morphology to a narrow QRS morphology Will obtain cardiac enzymes from [facility] and 2-D echo report from [facility] HPI Patient presented to the emergency room complaining of abdominal pain and vomiting and fever She was at [facility] for the same symptoms previously She is a history of colon resection When I interviewed her she was complaining of lower abdominal pain, hypogastric location She categorically denied any epigastric discomfort, upper abdominal pain or chest discomfort He does not appear to be short of breath She is lying flat, comfortably in bed Cardiology was consulted on account of abnormal EKGs as well as borderline abnormal troponin ROS: No fever chills or rigors, no cough, phlegm or expectoration, no nausea, vomiting or diarrhea, no hematuria, dysuria, no musculoskeletal complaints, no strokes or seizures, no skin lesions. EXAMINATION: 98.6F pulse rate in the 70s, blood pressure normal 113/65 mmHg Pulse ox normal Breath sounds are clear no rhonchi no crackles No upper abdominal tenderness Minimal lower abdominal tenderness Clear lungs No JVD No lower extremity edema REVIEW OF LABS, ECG & MEDICAL DATA WHITE count 5.8, hemoglobin 13.1, platelet count 261,000 Sodium 130, potassium 3.1, creatinine 0.4 Elevated lactic acid level Magnesium 1.4 Troponin 0.04 and 0.036 Coronary sinus PCR not detected 3 serial 12-lead EKGs were evaluated When the QRS is narrow, at a slightly lower heart rate, the patient has deep T- wave inversions all across the precordium and in the inferior leads When her heart rate increases she has a rate-related left bundle branch block morphology with normal ST segments Past Medical History Past Medical History: Atrial Fibrillation, Coronary Artery Disease (CAD), Cancer, Eye Disorder, GERD/Reflux, GI Bleed, Hearing Disorder / Deafness, Hypertension, Musculoskeletal Disorder, Osteoarthritis (OA), Thyroid Disorder Additional Past Medical History / Comment(s): Peptic ulcer, chronic back pain, laryngeal cancer/tx-approx 20 yrs ago, head injury in 2012, cataract removal left eye. Pt states she has a hole in her left eardrum. 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 SHOULDER Past Surgical History: Bariatric Surgery, Bowel Resection, Cholecystectomy, Heart Catheterization, Heart Catheterization With Stent, Hysterectomy, Joint Replacement, Orthopedic Surgery Additional Past Surgical History / Comment(s): 1 stent, Bilateral knee replacement, left shoulder rotator cuff surgery, gastric bypass, D&C w/ corrective surgery, EGD/colonoscopy, laryngeal tumor removed 30 radiation treatments about 20 years ago, Ganglion Cysts both wrists.PAIN CLINIC INJECTIONS, colostomy 06/2020 w/ reversal in August Past Anesthesia/Blood Transfusion Reactions: No Reported Reaction Date of Last Stent Placement:: 2003 Past Psychological History: Anxiety, Depression, Panic Disorder Smoking Status: Former smoker Past Alcohol Use History: Occasional Past Drug Use History: None Reported - Past Family History Mother Family Medical History: Cancer, Congestive Heart Failure (CHF), Diabetes Mellitus, Hypertension Additional Family Medical History / Comment(s): Mother passed at 93. Father Family Medical History: Myocardial Infarction ([place]) Additional Family Medical History / Comment(s): Father of a [place] at the age of 39 yrs. Sister(s) Family Medical History: Cancer Brother(s) Family Medical History: Cancer, Myocardial Infarction ([place]) Medications and Allergies Home Medications Medication Instructions Recorded Confirmed Type Levothyroxine Sodium [Synthroid] 200 mcg PO DAILY 01/12/19 03/01/21 History LORazepam [Ativan] 0.5 mg PO HS PRN 11/25/20 03/01/21 History Aspirin [Adult Low Dose Aspirin EC] 81 mg PO DAILY 30 Days #30 tab 12/02/20 03/01/21 Rx Ondansetron Odt [Zofran ODT] 4 mg PO Q8HR PRN #10 tab 12/04/20 03/01/21 Rx HYDROcodone/APAP 10-325MG [[place] 1 tab PO QID PRN 01/09/21 03/01/21 History 10-325] Apixaban [Eliquis] 5 mg PO BID #60 tab 01/12/21 03/01/21 Rx Calcium Carbonate [Tums] 500 mg PO QID PRN tab 01/12/21 03/01/21 Rx Famotidine [Pepcid] 20 mg PO BID #60 tablet 01/12/21 03/01/21 Rx Loperamide [Imodium] 2 mg PO QID PRN #0 cap 01/12/21 03/01/21 Rx Magnesium Oxide [Mag-Ox] 400 mg PO BID #60 tablet 01/12/21 03/01/21 Rx Metoprolol Tartrate [Lopressor] 25 mg PO BID #60 tab 01/12/21 03/01/21 Rx Amoxic-Pot Clav 875-125Mg 1 tab PO BID 03/01/21 03/01/21 History [Augmentin 875-125] Megestrol Acetate 40 mg PO BID 03/01/21 03/01/21 History hydrOXYzine HCL [Atarax] 10 mg PO HS 03/01/21 03/01/21 History Allergies Allergy/AdvReac Type Severity Reaction Status Date / Time latex Allergy Unknown Verified 03/01/21 20:13 vancomycin Allergy Rash/Hives Verified 03/01/21 20:13 Physical Exam Vitals: Vital Signs Temp Pulse Resp BP Pulse Ox 03/02/21 08:12 98.6 F 75 17 113/56 100 03/02/21 06:36 73 18 108/70 98 03/02/21 03:16 60 18 113/65 97 03/02/21 00:28 83 20 110/63 95 03/01/21 20:00 75 20 130/76 96 03/01/21 16:06 97.6 F 70 20 146/102 95 Intake and Output 03/01/21 03/02/21 03/02/21 22:59 06:59 14:59 Other: Weight 64.864 kg Results 03/01/21 21:23 03/01/21 21:23 Cardiac Enzymes 03/01/21 03/01/21 03/01/21 Range/Units 21:23 21:23 23:52 AST 44 H (14-36) U/L Troponin I 0.053 H* 0.040 H* (0.000-0.034) ng/mL 03/02/21 Range/Units 03:48 AST (14-36) U/L Troponin I 0.036 H* (0.000-0.034) ng/mL Lipids 03/02/21 Range/Units 03:48 Triglycerides 120.00 (0.00-149.00) mg/dL Cholesterol 180.00 (0.00-200.00) mg/dL HDL Cholesterol 88.50 H (40.00-60.00) mg/dL Cholesterol/HDL Ratio 2.03 Ratio CBC 03/01/21 Range/Units 21:23 WBC 5.8 (3.8-10.6) k/uL RBC 3.97 (3.80-5.40) m/uL Hgb 13.1 (11.4-16.0) gm/dL Hct 39.5 (34.0-46.0) % Plt Count 261 (150-450) k/uL Comprehensive Metabolic Panel 03/01/21 Range/Units 21:23 Sodium 130 L (137-145) mmol/L Potassium 3.1 L (3.5-5.1) mmol/L Chloride 101 (98-107) mmol/L Carbon Dioxide 23 (22-30) mmol/L BUN 2 L (7-17) mg/dL Creatinine 0.40 L (0.52-1.04) mg/dL Glucose 108 H (74-99) mg/dL Calcium 8.1 L (8.4-10.2) mg/dL AST 44 H (14-36) U/L ALT 21 (4-34) U/L Alkaline Phosphatase 141 H (38-126) U/L Total Protein 6.5 (6.3-8.2) g/dL Albumin 3.0 L (3.5-5.0) g/dL Current Medications Generic Name Dose Route Start Last Admin Trade Name Freq PRN Reason Stop Dose Admin Hydrocodone Bitart/Acetaminophen 1 each 03/02/21 11:07 Hydrocodone/Apap 10-325mg 1 Each Tab PO QID PRN MODERATE Pain Apixaban 5 mg 03/02/21 21:00 Apixaban 5 Mg Tab PO BID ALFREDO Protocol Aspirin 81 mg 03/03/21 09:00 Aspirin 81 Mg PO DAILY [facility] Famotidine 20 mg 03/02/21 11:15 Famotidine 20 Mg Tab PO BID [facility] Hydroxyzine HCl 10 mg 03/02/21 21:00 Hydroxyzine Hcl 10 Mg Tab PO HS [facility] Sodium Chloride 1,000 mls @ 100 mls/hr 03/02/21 11:15 Saline 0.9% IV .Q10H [facility] Levothyroxine Sodium 200 mcg 03/03/21 06:30 Levothyroxine [address] [place] [address] [facility] Lorazepam 0.5 mg 03/02/21 11:07 Lorazepam 0.5 Mg Tab PO HS PRN Anxiety/SLEEP Magnesium Oxide 400 mg 03/02/21 21:00 Magnesium Oxide 400 Mg Tab PO BID [facility] Metoprolol Tartrate 25 mg 03/02/21 21:00 Metoprolol Tartrate 25 Mg Tab PO BID [facility] Miscellaneous Information 1 each 03/01/21 23:34 Magnesium Replacement Protocol 1 Each Misc MISCELLANE DAILY PRN Per Protocol Protocol Morphine Sulfate 4 mg 03/02/21 11:07 Morphine Sulfate 4 Mg/Ml Syringe IVP Q4HR PRN Pain Nitroglycerin 0.4 mg 03/01/21 23:19 Nitroglycerin Sl Tabs 0.4 Mg Tab SUBLINGUAL Q5M PRN Chest Pain Intake and Output 03/01/21 03/02/21 03/02/21 22:59 06:59 14:59 Other: Weight 64.864 kg 03/01/21 21:23 03/01/21 21:23
[2021-03-02] MEDS ORDERED: LOPERAMIDE 2 MG CAP PO PRN (12:44)
[2021-03-02] MEDS ORDERED: CALCIUM CARBONATE 500 MG CHEWABLE PO PRN (12:44)
[2021-03-02] MEDS: FAMOTIDINE 20 MG TAB PO SCH ×2 (12:45→20:44)
[2021-03-02] MEDS ORDERED: ONDANSETRON 4 MG/2 ML VIAL IVP PRN (12:54)
[2021-03-02] MEDS: MORPHINE SULFATE 4 MG/ML SYRINGE IVP PRN ×3 (12:55→20:43)
--- NOTE | 2021-03-02 13:11 | P.HPIM ---
History of Present Illness H&P Date: 03/02/21 She is a 75-year-old female who presents with history with a complaint of nausea and vomiting, and abdominal cramping. Abdominal cramping started on Saturday which is lower quadrant and diffuse. Patient vomited twice yesterday, denies any blood in the vomit. She denies any diarrhea, states her last bowel movement was yesterday. Patient denies any chest pain, chest pressure or palpitations. She denies any cough or shortness of breath. She denies any fever or chills. She is urinating without difficulty. Patient's a past medical history significant for atrial fibrillation, coronary artery disease status post PCI years ago, peptic ulcer disease, laryngeal cancer with treatment 20 years ago, peptic ulcer, GERD, GI bleed, hypertension, osteoarthritis, colon resection. 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 Abdominal pelvis CT completed in the shows previous gastric bypass surgery, fatty infiltration of the liver. There is some mild wall thickening of the sigmoid colon could be related to some nonspecific colitis appears to be a change compared to last exam. Patient was recently admitted to [facility] for same nausea vomiting and abdominal cramping. It appears she was also started on Augmentin 2 days ago for a two-week course. There is a cardiology consultation this admission for elevated troponins, 0.053, 0.040, 0.036. Additional labs show a sodium of 1:30, potassium 3.1, BUN 2, creatinine 0.40, glucose 108, lactic acid 3.9, magnesium 1.4, AST 44, alk phos 141, calcium 8.1, albumin 3. Total cholesterol 180, triglycerides 120, LDL 67.5, HDL 88.5. Urinalysis is within normal limits, COVID PCR not detected. REVIEW OF SYSTEMS: CONSTITUTIONAL: No fever, no malaise, no fatigue. HEENT: No recent visual problems or hearing problems. Denied any sore throat. CARDIOVASCULAR: No chest pain, orthopnea, PND, no palpitations, no syncope. PULMONARY: No shortness of breath, no cough, no hemoptysis. GASTROINTESTINAL: No diarrhea, reports abdominal cramping, tenderness to palpation, reports 1 episode of vomiting yesterday NEUROLOGICAL: No headaches, no weakness, no numbness. HEMATOLOGICAL: Denies any bleeding or petechiae. GENITOURINARY: Denies any burning micturition, frequency, or urgency. MUSCULOSKELETAL/RHEUMATOLOGICAL: Denies any joint pain, swelling, or any muscle pain. ENDOCRINE: Denies any polyuria or polydipsia. The rest of the 14-point review of systems is negative. PHYSICAL EXAMINATION: GENERAL: The patient is alert and oriented x3, not in any acute distress. Well developed, well nourished. HEENT: Pupils are round and equally reacting to light. EOMI. No scleral icterus. No conjunctival pallor. Normocephalic, atraumatic. No pharyngeal erythema. No thyromegaly. CARDIOVASCULAR: S1 and S2 present. No murmurs, rubs, or gallops. PULMONARY: Chest is clear to auscultation, no wheezing or crackles. ABDOMEN: Soft, tender to palpation lower quadrant, normoactive bowel sounds MUSCULOSKELETAL: No joint swelling or deformity. EXTREMITIES: No cyanosis, clubbing, or pedal edema. NEUROLOGICAL: Gross neurological examination did not reveal any focal deficits. SKIN: No rashes. Assessment and Plan Assessment Abdominal pain with vomiting possibly related to nonspecific colitis Mild wall thickening of the sigmoid colon could be related to some nonspecific colitis Abnormal troponins, unclear etiology, ACS ruled out by cardiology History of coronary artery disease s/p PCI, unknown date Hyponatremia probably related to volume depletion from vomiting Hypokalemia Hypomangesemia Lactic Acidosis probably secondary to vomiting Hypertension History of GI Bleed History of Atrial Fibrillation, on eliquis History of Colon resection History of Hypothyroid History of GERD DVT Prophylaxis: Eliquis GI Prophylaxis: IVP Protonix Plan Echocardiogram ordered Resume home medications Consult surgery Replace electrolytes Labs in the AM Clear liquid diet Past Medical History Past Medical History: Atrial Fibrillation, Coronary Artery Disease (CAD), Cancer, Eye Disorder, GERD/Reflux, GI Bleed, Hearing Disorder / Deafness, Hypertension, Musculoskeletal Disorder, Osteoarthritis (OA), Thyroid Disorder Additional Past Medical History / Comment(s): Peptic ulcer, chronic back pain, laryngeal cancer/tx-approx 20 yrs ago, head injury in 2012, cataract removal l eft eye. Pt states she has a hole in her left eardrum. 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 SHOULDER Past Surgical History: Bariatric Surgery, Bowel Resection, Cholecystectomy, Heart Catheterization, Heart Catheterization With Stent, Hysterectomy, Joint Replacement, Orthopedic Surgery Additional Past Surgical History / Comment(s): 1 stent, Bilateral knee repla cement, left shoulder rotator cuff surgery, gastric bypass, D&C w/ corrective surgery, EGD/colonoscopy, laryngeal tumor removed 30 radiation treatments about 20 years ago, Ganglion Cysts both wrists.PAIN CLINIC INJECTIONS, colostomy 06/2020 w/ reversal in August Past Anesthesia/Blood Transfusion Reactions: No Reported Reaction Date of Last Stent Placement:: 2003 Past Psychological History: Anxiety, Depression, Panic Disorder Smoking Status: Former smoker Past Alcohol Use History: Occasional Past Drug Use History: None Reported - Past Family History Mother Family Medical History: Cancer, Congestive Heart Failure (CHF), Diabetes Mellitus, Hypertension Additional Family Medical History / Comment(s): Mother passed at 93. Father Family Medical History: Myocardial Infarction (MT) Additional Family Medical History / Comment(s): Father of a MT at the age of 39 yrs. Sister(s) Family Medical History: Cancer Brother(s) Family Medical History: Cancer, Myocardial Infarction (MT) Medications and Allergies Home Medications Medication Instructions Recorded Confirmed Type Levothyroxine Sodium [Synthroid] 200 mcg PO DAILY 01/12/19 03/01/21 History LORazepam [Ativan] 0.5 mg PO HS PRN 11/25/20 03/01/21 History Aspirin [Adult Low Dose Aspirin EC] 81 mg PO DAILY 30 Days #30 tab 12/02/20 03/01/21 Rx Ondansetron Odt [Zofran ODT] 4 mg PO Q8HR PRN #10 tab 12/04/20 03/01/21 Rx HYDROcodone/APAP 10-325MG [Enigma 1 tab PO QID PRN 01/09/21 03/01/21 History 10-325] Apixaban [Eliquis] 5 mg PO BID #60 tab 01/12/21 03/01/21 Rx Calcium Carbonate [Tums] 500 mg PO QID PRN tab 01/12/21 03/01/21 Rx Famotidine [Pepcid] 20 mg PO BID #60 tablet 01/12/21 03/01/21 Rx Loperamide [Imodium] 2 mg PO QID PRN #0 cap 01/12/21 03/01/21 Rx Magnesium Oxide [Mag-Ox] 400 mg PO BID #60 tablet 01/12/21 03/01/21 Rx Metoprolol Tartrate [Lopressor] 25 mg PO BID #60 tab 01/12/21 03/01/21 Rx Amoxic-Pot Clav 875-125Mg 1 tab PO BID 03/01/21 03/01/21 History [Augmentin 875-125] Megestrol Acetate 40 mg PO BID 03/01/21 03/01/21 History hydrOXYzine HCL [Atarax] 10 mg PO HS 03/01/21 03/01/21 History Allergies Allergy/AdvReac Type Severity Reaction Status Date / Time latex Allergy Unknown Verified 03/01/21 20:13 vancomycin Allergy Rash/Hives Verified 03/01/21 20:13 Physical Exam Vitals: Vital Signs Temp Pulse Resp BP Pulse Ox 03/02/21 08:12 98.6 F 75 17 113/56 100 03/02/21 06:36 73 18 108/70 98 03/02/21 03:16 60 18 113/65 97 03/02/21 00:28 83 20 110/63 95 03/01/21 20:00 75 20 130/76 96 03/01/21 16:06 97.6 F 70 20 146/102 95 Intake and Output 03/01/21 03/02/21 03/02/21 22:59 06:59 14:59 Other: Weight 64.864 kg Results CBC & Chem 7: 03/01/21 21:23 03/01/21 21:23 Labs: Abnormal Lab Results - Last 24 Hours (Table) 03/01/21 03/01/21 03/01/21 Range/Units 21:23 21:23 21:23 RDW 17.1 H (11.5-15.5) % Sodium 130 L (137-145) mmol/L Potassium 3.1 L (3.5-5.1) mmol/L BUN 2 L (7-17) mg/dL Creatinine 0.40 L (0.52-1.04) mg/dL Glucose 108 H (74-99) mg/dL Plasma Lactic Acid Anthony 2.8 H* (0.7-2.0) mmol/L Calcium 8.1 L (8.4-10.2) mg/dL Magnesium (1.6-2.3) mg/dL AST 44 H (14-36) U/L Alkaline Phosphatase 141 H (38-126) U/L Troponin I (0.000-0.034) ng/mL Albumin 3.0 L (3.5-5.0) g/dL HDL Cholesterol (40.00-60.00) mg/dL Urine Ketones (Negative) 03/01/21 03/01/21 03/01/21 Range/Units 21:23 21:23 22:35 RDW (11.5-15.5) % Sodium (137-145) mmol/L Potassium (3.5-5.1) mmol/L BUN (7-17) mg/dL Creatinine (0.52-1.04) mg/dL Glucose (74-99) mg/dL Plasma Lactic Acid Anthony (0.7-2.0) mmol/L Calcium (8.4-10.2) mg/dL Magnesium 1.4 L (1.6-2.3) mg/dL AST (14-36) U/L Alkaline Phosphatase (38-126) U/L Troponin I 0.053 H* (0.000-0.034) ng/mL Albumin (3.5-5.0) g/dL HDL Cholesterol (40.00-60.00) mg/dL Urine Ketones Trace H (Negative) 03/01/21 03/01/21 03/02/21 Range/Units 23:52 23:52 03:48 RDW (11.5-15.5) % Sodium (137-145) mmol/L Potassium (3.5-5.1) mmol/L BUN (7-17) mg/dL Creatinine (0.52-1.04) mg/dL Glucose (74-99) mg/dL Plasma Lactic Acid Anthony 3.9 H* (0.7-2.0) mmol/L Calcium (8.4-10.2) mg/dL Magnesium (1.6-2.3) mg/dL AST (14-36) U/L Alkaline Phosphatase (38-126) U/L Troponin I 0.040 H* 0.036 H* (0.000-0.034) ng/mL Albumin (3.5-5.0) g/dL HDL Cholesterol (40.00-60.00) mg/dL Urine Ketones (Negative) 03/02/21 Range/Units 03:48 RDW (11.5-15.5) % Sodium (137-145) mmol/L Potassium (3.5-5.1) mmol/L BUN (7-17) mg/dL Creatinine (0.52-1.04) mg/dL Glucose (74-99) mg/dL Plasma Lactic Acid Anthony (0.7-2.0) mmol/L Calcium (8.4-10.2) mg/dL Magnesium (1.6-2.3) mg/dL AST (14-36) U/L Alkaline Phosphatase (38-126) U/L Troponin I (0.000-0.034) ng/mL Albumin (3.5-5.0) g/dL HDL Cholesterol 88.50 H (40.00-60.00) mg/dL Urine Ketones (Negative) Assessment and Plan Time with Patient: Greater than 30
[2021-03-02 14:20] LABS: African American GFR (CKD) >90 (>60 ml/min/1.73 sqM); Anion Gap 3 mmol/L; Blood Urea Nitrogen 4 mg/dL (7-17); Calcium 7.5 mg/dL (8.4-10.2); Carbon Dioxide 24 mmol/L (22-30); Chloride 104 mmol/L (98-107); Glucose 83 mg/dL (74-99); Non-African American GFR(CKD) >90 (>60 ml/min/1.73 sqM); Potassium 3.2 mmol/L (3.5-5.1); Sodium 131 mmol/L (137-145)
[2021-03-02] MEDS ORDERED: metroNIDAZOLE 500 MG TAB PO SCH (16:00)
[2021-03-02] MEDS: SODIUM CHLORIDE 0.9% 1,000 ML IV SCH ×2 (16:26→20:44)
[2021-03-02] MEDS ORDERED: Potassium Replacement Protocol 1 EACH MISC MISCELLANE PRN (16:51)
[2021-03-02] MEDS: POTASSIUM CHLORIDE ER 20 MEQ TAB.ER PO SCH ×2 (16:57→18:33)
[2021-03-02] MEDS: METOPROLOL TARTRATE 25 MG TAB PO SCH (20:44)
[2021-03-02] MEDS: MAGNESIUM OXIDE 400 MG TAB PO SCH (20:44)
[2021-03-02] MEDS: APIXABAN 5 MG TAB PO SCH (20:44)
[2021-03-02] MEDS ORDERED: FAMOTIDINE 20 MG TAB PO SCH (21:00)
[2021-03-02] MEDS ORDERED: AMOXIC-POT CLAV 875-125MG 1 EACH TAB PO SCH (21:00)
[2021-03-02] MEDS: hydrOXYzine HCL 10 MG TAB PO SCH (21:31)
[2021-03-03] MEDS: LEVOTHYROXINE 100 MCG TAB PO SCH (06:23)
[2021-03-03] MEDS: ASPIRIN 81 MG PO SCH (08:08)
[2021-03-03] MEDS: MORPHINE SULFATE 4 MG/ML SYRINGE IVP PRN ×3 (08:09→21:44)
[2021-03-03] MEDS: APIXABAN 5 MG TAB PO SCH ×2 (08:09→20:17)
[2021-03-03] MEDS: MAGNESIUM OXIDE 400 MG TAB PO SCH ×2 (08:09→20:17)
[2021-03-03] MEDS: METOPROLOL TARTRATE 25 MG TAB PO SCH ×2 (08:09→20:17)
[2021-03-03] MEDS: PANTOPRAZOLE 40 MG/10 ML VIAL IVP SCH (08:09)
[2021-03-03] MEDS: FAMOTIDINE 20 MG TAB PO SCH ×2 (08:09→20:17)
[2021-03-03 08:28] LABS: Anisocytosis Slight; Basophils # (A) 0.1 k/uL (0-0.2); Basophils % (A) 1 %; Eosinophils # (A) 0.1 k/uL (0-0.7); Eosinophils % (A) 3 %; HCT 38.7 % (34.0-46.0); HGB 12.1 gm/dL (11.4-16.0); Lymphocytes % (A) 60 %; MCH 32.5 pg (25.0-35.0); MCHC 31.3 g/dL (31.0-37.0); MCV 103.9 fL (80.0-100.0); Macrocytosis Moderate; Mean Platelet Volume 7.8; Monocytes # (A) 0.3 k/uL (0-1.0); Monocytes % (A) 7 %; Neutrophils # (A) 1.4 k/uL (1.3-7.7); Neutrophils % (A) 27 %; Platelet Count 265 k/uL (150-450); RBC 3.72 m/uL (3.80-5.40); RDW 17.5 % (11.5-15.5)
[2021-03-03 09:04] LABS: African American GFR (CKD) >90 (>60 ml/min/1.73 sqM); Anion Gap 6 mmol/L; Blood Urea Nitrogen 7 mg/dL (7-17); Calcium 7.7 mg/dL (8.4-10.2); Carbon Dioxide 22 mmol/L (22-30); Chloride 103 mmol/L (98-107); Glucose 85 mg/dL (74-99); Non-African American GFR(CKD) 88 (>60 ml/min/1.73 sqM); Potassium 3.3 mmol/L (3.5-5.1); Sodium 131 mmol/L (137-145)
--- NOTE | 2021-03-03 09:51 | P.PN ---
<Blaze Marie - Last Filed: 03/03/21 09:31> Subjective Progress Note Date: 03/03/21 Principal diagnosis: Abdominal pain, hypokalemia, STEMI This is Blaze marie NP, dictating a progress note on behalf of Dr. Garcia. Patient was interviewed and examined. Patient is a pleasant 75-year-old female who initially presented to the hospital with abdominal pain, hypokalemia, with some aberrant complaints of chest pain along with some EKG abnormalities. Her EKG initially did show diffuse T-wave inversion in most of the anterior and lateral leads. However follow-up EKG demonstrated wide QRS complexes with normal T waves. Patient does have a left bundle-branch block. We are considering stress-induced cardiomyopathy in her differential. GENERAL: Well-appearing, well-nourished and in no acute distress. NECK: Supple without JVD or thyromegaly. LUNGS: Breath sounds clear to auscultation bilaterally. Respiration equal and unlabored. No wheezes, rales or rhonchi. HEART: Regular rate and rhythm without murmurs, rubs or gallops. S1 and S2 heard. EXTREMITIES: Normal range of motion, no edema. No clubbing or cyanosis. Peripheral pulses intact and strong. VITALS: [Temp 98.6, pulse 68, respirations 16, blood pressure 112/60, O2 saturation 98% on room air] TELEMETRY: [Atrial fibrillation with rate control] LABS: [White blood cells 5.0, hemoglobin 12.1, platelets 265, sodium 131, potassium 3.3, BUNs 17, creatinine 0.63, calcium 7.7,] IMPRESSION/PLAN: [1. Stress-induced cardiomyopathy-repeat EKG does not demonstrate the T-wave inversions from the original. Will order echocardiogram to evaluate heart function. 2. Chest pain-resolved. Patient has no complaints of chest pain, only lower abdominal pain.] The patient has been seen and evaluated. Plan of care has been reviewed and agreed upon by Dr. Garcia. Objective - Vital Signs Vital signs: Vital Signs Temp 98.6 F 03/03/21 08:00 Pulse 68 03/03/21 08:00 Resp 16 03/03/21 08:00 BP 112/60 03/03/21 08:00 Pulse Ox 98 03/03/21 08:00 Intake & Output 03/02/21 03/03/21 03/03/21 18:59 06:59 18:59 Intake Total 550 Balance 550 Weight 64.864 kg 65.3 kg Intake: Intake, IV Titration 550 Amount Sodium Chloride 0.9% 1, 550 000 ml @ 100 mls/hr IV . Q10H [facility] Rx#:[id number] Other: # Voids 3 # Bowel Movements 0 - Labs CBC & Chem 7: 03/03/21 07:42 03/03/21 07:42 Labs: Abnormal Lab Results - Last 24 Hours (Table) 03/02/21 03/03/21 03/03/21 Range/Units 12:10 07:42 07:42 RBC 3.72 L (3.80-5.40) m/uL MCV 103.9 H (80.0-100.0) fL RDW 17.5 H (11.5-15.5) % Sodium 131 L 131 L (137-145) mmol/L Potassium 3.2 L 3.3 L (3.5-5.1) mmol/L BUN 4 L (7-17) mg/dL Calcium 7.5 L 7.7 L (8.4-10.2) mg/dL Microbiology - Last 24 Hours (Table) 03/01/21 21:33 Blood Culture - Preliminary Blood No Growth after 24 hours <Sean Garcia - Last Filed: 03/03/21 10:41> Subjective Patient interviewed and examined today We reviewed data from an [facility] She was there for about 2 days but we do not have any troponins nor do we have an echo done recently We reviewed a 12-lead EKG from 2018 This shows a narrow QRS abnormal ST segments The differential diagnosis here is stress coronary myopathy causing those deep T-wave inversions during the narrow QRS EKGs versus cardiac memory The T-wave inversions are fairly diffuse and very deep but the ST segments are fairly normal when the patient is in the left bundle branch block morphology QRS On one of her EKG is the transition is quite striking between left bundle and narrow QRS when evaluating the ST segments Objective - Vital Signs Vital signs: Vital Signs Temp 98.6 F 03/03/21 08:00 Pulse 68 03/03/21 08:00 Resp 16 03/03/21 08:00 BP 112/60 03/03/21 08:00 Pulse Ox 98 03/03/21 08:00 Intake & Output 03/02/21 03/03/21 03/03/21 18:59 06:59 18:59 Intake Total 550 Balance 550 Weight 64.864 kg 65.3 kg Intake: Intake, IV Titration 550 Amount Sodium Chloride 0.9% 1, 550 000 ml @ 100 mls/hr IV . Q10H [facility] Rx#:[id number] Other: # Voids 3 # Bowel Movements 0 - Labs CBC & Chem 7: 03/03/21 07:42 03/03/21 07:42 Labs: Abnormal Lab Results - Last 24 Hours (Table) 03/02/21 03/03/21 03/03/21 Range/Units 12:10 07:42 07:42 RBC 3.72 L (3.80-5.40) m/uL MCV 103.9 H (80.0-100.0) fL RDW 17.5 H (11.5-15.5) % Sodium 131 L 131 L (137-145) mmol/L Potassium 3.2 L 3.3 L (3.5-5.1) mmol/L BUN 4 L (7-17) mg/dL Calcium 7.5 L 7.7 L (8.4-10.2) mg/dL Microbiology - Last 24 Hours (Table) 03/01/21 21:33 Blood Culture - Preliminary Blood No Growth after 24 hours
[2021-03-03] MEDS: SODIUM CHLORIDE 0.9% 1,000 ML IV SCH ×2 (11:19→15:27)
--- NOTE | 2021-03-03 12:46 | ECHOF ---
Referral Reason:EKG Changes MEASUREMENTS -------- HEIGHT: 160.0 cm WEIGHT: 64.9 kg BP: 112/60 RVIDd: 3.5 cm (< 3.3) IVSd: 1.2 cm (0.6 - 1.1) LVIDd: 4.6 cm (3.9 - 5.3) LVPWd: 1.2 cm (0.6 - 1.1) IVSs: 1.9 cm LVIDs: 2.4 cm LVPWs: 1.7 cm LAESV Index (A-L): 20.05 ml/m Ao Diam: 3.1 cm (2.0 - 3.7) AV Cusp: 1.4 cm (1.5 - 2.6) LA Diam: 2.3 cm (2.7 - 3.8) MV EXCURSION: 13.189 mm (> 18.000) MV EF SLOPE: 14 mm/s (70 - 150) EPSS: 0.8 cm MV E Trent: 0.94 m/s MV DecT: 372 ms MV A Trent: 1.22 m/s MV E/A Ratio: 0.77 AR PHT: 633 ms RAP: 5.00 mmHg RVSP: 14.20 mmHg FINDINGS -------- Sinus rhythm. This was a technically adequate study. The left ventricular size is normal. There is mild concentric left ventricular hypertrophy. Overa ll left ventricular systolic function is normal with, an EF between 55 - 60 %. The diastolic fillin g pattern is normal for the age of the patient 24.18. The right ventricle is mildly enlarged. Normal LA size by volume 22+/-6 ml/m2. The right atrial size is normal. Interatrial and interventricular septum intact. There is [id number] aortic regurgitation. There is no evidence of aortic stenosis. Mild mitral regurgitation is present. Mild tricuspid regurgitation present. There is no evidence of pulmonary hypertension. The right v entricular systolic pressure, as measured by Doppler, is 14.20mmHg. There is no pulmonic regurgitation present. The aortic root size is normal. IVC Not well visulized. Echo free space indicative of a pericardial fat pad. There is no pericardial effusion. CONCLUSIONS -------- 1. The left ventricular size is normal. 2. There is mild concentric left ventricular hypertrophy. 3. Overall left ventricular systolic function is normal with, an EF between 55 - 60 %. 4. The right ventricle is mildly enlarged. 5. There is [id number] aortic regurgitation. 6. Mild mitral regurgitation is present. 7. Mild tricuspid regurgitation present. CHIEF CRUISER: Jeannie Hooks RDCS
--- NOTE | 2021-03-03 15:16 | P.PN ---
Subjective Progress Note Date: 03/03/21 Principal diagnosis: Abdominal pain with vomiting possibly related to nonspecific colitis Mild wall thickening of the sigmoid colon could be related to some nonspecific colitis Abnormal troponins, unclear etiology, ACS ruled out by cardiology 75-year-old female who presents with history with a complaint of nausea and vomiting, and abdominal cramping. Abdominal cramping started on Saturday which is lower quadrant and diffuse. Patient vomited twice yesterday, denies any blood in the vomit. She denies any diarrhea, states her last bowel movement was yesterday. Patient denies any chest pain, chest pressure or palpitations. She denies any cough or shortness of breath. She denies any fever or chills. She is urinating without difficulty. Patient's a past medical history significant for atrial fibrillation, coronary artery disease status post PCI years ago, peptic ulcer disease, laryngeal cancer with treatment 20 years ago, peptic ulcer, GERD, GI bleed, hypertension, osteoarthritis, colon resection. 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 Abdominal pelvis CT completed in the shows previous gastric bypass surgery, fatty infiltration of the liver. There is some mild wall thickening of the sigmoid colon could be related to some nonspecific colitis appears to be a change compared to last exam. Patient was recently admitted to [facility] for same nausea vomiting and abdominal cramping. It appears she was also started on Augmentin 2 days ago for a two- week course. There is a cardiology consultation this admission for elevated troponins, 0.053, 0.040, 0.036. Additional labs show a sodium of 1:30, potassium 3.1, BUN 2, creatinine 0.40, glucose 108, lactic acid 3.9, magnesium 1.4, AST 44, alk phos 141, calcium 8.1, albumin 3. Total cholesterol 180, triglycerides 120, LDL 67.5, HDL 88.5. Urinalysis is within normal limits, COVID PCR not detected. Objective - Vital Signs Vital signs: Vital Signs Temp 98.6 F 03/03/21 08:00 Pulse 89 03/03/21 11: Resp 16 03/03/21 11:26 BP 122/60 03/03/21 11: Pulse Ox 96 03/03/21 11: Intake & Output 11/25/21 11/26/21 11/26/21 18:59 06:59 18:59 Intake Total 550 Balance 550 Weight 64.864 kg 65.3 kg Intake: Intake, IV Titration 550 Amount Sodium Chloride 0.9% 1, 550 000 ml @ 100 mls/hr IV . Q10H [facility] Rx#:[id number] Other: # Voids 3 # Bowel Movements 0 - Exam GENERAL: The patient is alert and oriented x3, not in any acute distress. Well developed, well nourished. HEENT: Pupils are round and equally reacting to light. EOMI. No scleral icterus. No conjunctival pallor. Normocephalic, atraumatic. No pharyngeal erythema. No thyromegaly. CARDIOVASCULAR: S1 and S2 present. No murmurs, rubs, or gallops. PULMONARY: Chest is clear to auscultation, no wheezing or crackles. ABDOMEN: Soft, tender to palpation lower quadrant, normoactive bowel sounds MUSCULOSKELETAL: No joint swelling or deformity. EXTREMITIES: No cyanosis, clubbing, or pedal edema. NEUROLOGICAL: Gross neurological examination did not reveal any focal deficits. SKIN: No rashes. - Labs CBC & Chem 7: 03/03/21 07:42 03/03/21 07:42 Labs: Abnormal Lab Results - Last 24 Hours (Table) 03/02/21 03/03/21 03/03/21 Range/Units 12:10 07:42 07:42 RBC 3.72 L (3.80-5.40) m/uL MCV 103.9 H (80.0-100.0) fL RDW 17.5 H (11.5-15.5) % Sodium 131 L 131 L (137-145) mmol/L Potassium 3.2 L 3.3 L (3.5-5.1) mmol/L BUN 4 L (7-17) mg/dL Calcium 7.5 L 7.7 L (8.4-10.2) mg/dL Microbiology - Last 24 Hours (Table) 03/01/21 21:33 Blood Culture - Preliminary Blood No Growth after 24 hours Assessment and Plan Assessment: Abdominal pain with vomiting possibly related to nonspecific colitis Mild wall thickening of the sigmoid colon could be related to some nonspecific colitis Abnormal troponins, unclear etiology, ACS ruled out by cardiology History of coronary artery disease s/p PCI, unknown date Hyponatremia probably related to volume depletion from vomiting Hypokalemia Hypomangesemia Lactic Acidosis probably secondary to vomiting Hypertension History of GI Bleed History of Atrial Fibrillation, on eliquis History of Colon resection History of Hypothyroid History of GERD DVT Prophylaxis: Eliquis GI Prophylaxis: IVP Protonix Plan Echocardiogram ordered Resume home medications Consult surgery Replace electrolytes Labs in the AM Clear liquid diet
[2021-03-03] MEDS ORDERED: Potassium Replacement Protocol 1 EACH MISC MISCELLANE PRN (15:29)
[2021-03-03] MEDS: POTASSIUM CHLORIDE ER 20 MEQ TAB.ER PO SCH ×2 (15:41→15:42)
--- NOTE | 2021-03-03 16:06 | P.GSCN ---
History of Present Illness Consult date: 03/03/21 History of present illness: CHIEF COMPLAINT: Abdominal pain. HISTORY OF PRESENT ILLNESS: The patient is a 75-year-old female with complicated surgical history including gastric bypass, colostomy for perforated diverticulitis and colostomy reversal. All of her colon surgery was this year less than 6 to 9 months ago. She came in with generalized abdominal pain acute with vomiting as a result of the pain. Her abdominal pain started in the last 2 days. Her pain is now subsiding. She was also admitted for suspected myocardial ischemia. General surgery is consulted for abdominal pain. ROS: No fevers or chills. No shortness of breath. PHYSICAL EXAM: VITAL SIGNS: Reviewed CONSTITUTIONAL: Well developed and in no acute distress. EYES: Conjuctivae without sclera icterus. Extraocular movements grossly intact. HEAD, EARS, NOSE, THROAT: Moist buccal mucosa. Head is atraumatic, normocephalic. Hears conversational speech. No nasal drainage. NECK: Supple. No thyroidomegaly. RESPIRATORY: Non-labored respirations and equal bilateral excursions. CARDIOVASCULAR: Palpable 2+ radial pulses. ABDOMEN: No peritonitis. MUSCULOSKELETAL: No gross deformity of the lower extremities noted. No clubbing. No cyanosis. SKIN: Good skin turgor. Well perfused. NEUROLOGIC: Cranial nerves II through XII grossly intact. No focal or lateralizing signs. PSYCH: Alert to person, place and time. Appropriate affect. CLINICAL LABS: Reviewed. WBC normal. STUDIES: CT of the abdomen and pelvis independently reviewed without colitis or bowel obstruction. Midline incisional hernias fat containing identified. ASSESSMENT: 1. Generalized abdominal pain 2. History of colectomy 3. History of gastric bypass PLAN: 1. She has history of intermittent chronic abdominal pain that has improved 2. Diet as tolerated Past Medical History Past Medical History: Atrial Fibrillation, Coronary Artery Disease (CAD), Cancer, Eye Disorder, GERD/Reflux, GI Bleed, Hearing Disorder / Deafness, Hypertension, Musculoskeletal Disorder, Osteoarthritis (OA), Thyroid Disorder Additional Past Medical History / Comment(s): Peptic ulcer, chronic back pain, laryngeal cancer/tx-approx 20 yrs ago, head injury in 2012, cataract removal left eye. Pt states she has a hole in her left eardrum. 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 Past Surgical History: Bariatric Surgery, Bowel Resection, Cholecystectomy, Heart Catheterization, Heart Catheterization With Stent, Hysterectomy, Joint Replacement, Orthopedic Surgery Additional Past Surgical History / Comment(s): 1 stent, Bilateral knee replace ment, left shoulder rotator cuff surgery, gastric bypass, D&C w/ corrective surgery, EGD/colonoscopy, laryngeal tumor removed 30 radiation treatments about 20 years ago, Ganglion Cysts both wrists.PAIN CLINIC INJECTIONS, colostomy 06/2020 w/ reversal in August Past Anesthesia/Blood Transfusion Reactions: No Reported Reaction Date of Last Stent Placement:: 2003 Past Psychological History: Anxiety, Depression, Panic Disorder Additional Psychological History / Comment(s): pt lives alone in an apartment. Smoking Status: Former smoker Past Alcohol Use History: Occasional Additional Past Alcohol Use History / Comment(s): Pt started smoking in 1959 and quit in 1992, 1ppd. Pt states she has a drink occasionally. Past Drug Use History: None Reported - Past Family History Mother Family Medical History: Cancer, Congestive Heart Failure (CHF), Diabetes Mellitus, Hypertension Additional Family Medical History / Comment(s): Mother passed at 93. Father Family Medical History: Myocardial Infarction (IA) Additional Family Medical History / Comment(s): Father of a IA at the age of 39 yrs. Sister(s) Family Medical History: Cancer Brother(s) Family Medical History: Cancer, Myocardial Infarction (IA) Medications and Allergies Home Medications Medication Instructions Recorded Confirmed Type Levothyroxine Sodium [Synthroid] 200 mcg PO DAILY 01/12/19 03/01/21 History LORazepam [Ativan] 0.5 mg PO HS PRN 11/25/20 03/01/21 History Aspirin [Adult Low Dose Aspirin EC] 81 mg PO DAILY 30 Days #30 tab 12/02/20 03/01/21 Rx Ondansetron Odt [Zofran ODT] 4 mg PO Q8HR PRN #10 tab 12/04/20 03/01/21 Rx HYDROcodone/APAP 10-325MG [[place] 1 tab PO QID PRN 01/09/21 03/01/21 History 10-325] Apixaban [Eliquis] 5 mg PO BID #60 tab 01/12/21 03/01/21 Rx Calcium Carbonate [Tums] 500 mg PO QID PRN tab 01/12/21 03/01/21 Rx Famotidine [Pepcid] 20 mg PO BID #60 tablet 01/12/21 03/01/21 Rx Loperamide [Imodium] 2 mg PO QID PRN #0 cap 01/12/21 03/01/21 Rx Magnesium Oxide [Mag-Ox] 400 mg PO BID #60 tablet 01/12/21 03/01/21 Rx Metoprolol Tartrate [Lopressor] 25 mg PO BID #60 tab 01/12/21 03/01/21 Rx Amoxic-Pot Clav 875-125Mg 1 tab PO BID 03/01/21 03/01/21 History [Augmentin 875-125] Megestrol Acetate 40 mg PO BID 03/01/21 03/01/21 History hydrOXYzine HCL [Atarax] 10 mg PO HS 03/01/21 03/01/21 History Allergies Allergy/AdvReac Type Severity Reaction Status Date / Time latex Allergy Unknown Verified 03/01/21 20:13 vancomycin Allergy Rash/Hives Verified 03/01/21 20:13 Surgical - Exam Vital Signs Temp Pulse Resp BP Pulse Ox 97.6 F 70 20 146/102 95 03/01/21 16:06 03/01/21 16:06 03/01/21 16:06 03/01/21 16:06 03/01/21 16:06 Results - Labs 03/03/21 07:42 03/03/21 07:42 Abnormal Lab Results - Last 24 Hours (Table) 03/03/21 03/03/21 Range/Units 07:42 07:42 RBC 3.72 L (3.80-5.40) m/uL MCV 103.9 H (80.0-100.0) fL RDW 17.5 H (11.5-15.5) % Sodium 131 L (137-145) mmol/L Potassium 3.3 L (3.5-5.1) mmol/L Calcium 7.7 L (8.4-10.2) mg/dL Microbiology - Last 24 Hours (Table) 03/01/21 21:33 Blood Culture - Preliminary Blood No Growth after 24 hours Diabetes panel 03/03/21 Range/Units 07:42 Sodium 131 L (137-145) mmol/L Potassium 3.3 L (3.5-5.1) mmol/L Chloride 103 (98-107) mmol/L Carbon Dioxide 22 (22-30) mmol/L BUN 7 (7-17) mg/dL Creatinine 0.63 (0.52-1.04) mg/dL Glucose 85 (74-99) mg/dL Calcium 7.7 L (8.4-10.2) mg/dL Calcium panel 03/03/21 Range/Units 07:42 Calcium 7.7 L (8.4-10.2) mg/dL Pituitary panel 03/03/21 Range/Units 07:42 Sodium 131 L (137-145) mmol/L Potassium 3.3 L (3.5-5.1) mmol/L Chloride 103 (98-107) mmol/L Carbon Dioxide 22 (22-30) mmol/L BUN 7 (7-17) mg/dL Creatinine 0.63 (0.52-1.04) mg/dL Glucose 85 (74-99) mg/dL Calcium 7.7 L (8.4-10.2) mg/dL Adrenal panel 03/03/21 Range/Units 07:42 Sodium 131 L (137-145) mmol/L Potassium 3.3 L (3.5-5.1) mmol/L Chloride 103 (98-107) mmol/L Carbon Dioxide 22 (22-30) mmol/L BUN 7 (7-17) mg/dL Creatinine 0.63 (0.52-1.04) mg/dL Glucose 85 (74-99) mg/dL Calcium 7.7 L (8.4-10.2) mg/dL Assessment and Plan (1) Abdominal pain Current Visit: Yes Status: Acute Code(s): R10.9 - UNSPECIFIED ABDOMINAL PAIN SNOMED Code(s): 63261022 (2) Generalized abdominal pain Current Visit: No Status: Acute Code(s): R10.84 - GENERALIZED ABDOMINAL PAIN SNOMED Code(s): 084407302 (3) H/O gastric bypass Current Visit: No Status: Acute Code(s): Z98.890 - OTHER SPECIFIED POSTPROCEDURAL STATES SNOMED Code(s): 784172119
[2021-03-03] MEDS: HYDROcodone/APAP 10-325MG 1 EACH TAB PO PRN (18:41)
[2021-03-03] MEDS: hydrOXYzine HCL 10 MG TAB PO SCH (20:17)
[2021-03-04] MEDS: SODIUM CHLORIDE 0.9% 1,000 ML IV SCH ×3 (01:46→22:06)
[2021-03-04] MEDS: MORPHINE SULFATE 4 MG/ML SYRINGE IVP PRN ×5 (01:46→22:07)
[2021-03-04] MEDS: LEVOTHYROXINE 100 MCG TAB PO SCH (06:20)
[2021-03-04] MEDS: MAGNESIUM OXIDE 400 MG TAB PO SCH ×2 (08:32→20:43)
[2021-03-04] MEDS: PANTOPRAZOLE 40 MG/10 ML VIAL IVP SCH (08:32)
[2021-03-04] MEDS: APIXABAN 5 MG TAB PO SCH ×2 (08:32→20:43)
[2021-03-04] MEDS: ASPIRIN 81 MG PO SCH (08:32)
[2021-03-04] MEDS: METOPROLOL TARTRATE 25 MG TAB PO SCH (08:32)
[2021-03-04] MEDS: FAMOTIDINE 20 MG TAB PO SCH ×2 (08:32→20:43)
--- NOTE | 2021-03-04 12:16 | P.PN ---
Subjective Patient is doing well from a chronic standpoint She categorically denies any discomfort of any kind in her chest and arms shoulders or jaw She denies any chest discomfort or shortness of breath Her main problem is in the belly especially the lower half of the She's been operated earlier this year and she says that since then she's always had these issues Afebrile 98.5F pulse rate in the 70s Blood pressure 127/61 mmHg 108/56 mmHg and 172/72 mmHg Normal heart sounds normal S1 normal S2 Clear lungs Mildly tender lower abdomen I reviewed the echo was she's had this year. She's had 3 echoes The first one was April 2020 and this shows reduced LV systolic function with anterior apical hypokinesis The second one a few months back showed preserved LV systolic function and no anterior wall hypokinesis and 2-D echo on this admission shows preserved LV systolic function no anterior apical abnormality at all Therefore he has been an improvement in her LV systolic function from April 2020 I reviewed the twelve-lead EKG from [facility] Her QRS is narrow and the T waves are normal She was admitted to [facility] in February 2018 subsequently with near syncope and a new left bundle branch block She has documented atrial fibrillation in November 2020 She had a coronary angiogram performed in April of this year which showed mild diffuse CAD Absence of any significant CAD Ejection fraction was mildly reduced with apical hypokinesis, 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 Impression History of recurrent GI problems since 2016 Admitted with GI symptoms again Borderline troponins but preserved LV systolic function History of atrial fibrillation documented in the past Rate related Left bundle branch block pattern with a mild prolonged FL interval This time we documented that the left bundle branch block was rate related When she had a narrow QRS she had deep T-wave inversions in all precordial leads and in the inferior leads However LV function does not show any anterior wall hypokinesis or recurrence of stress cardio myopathy She has known mild CAD by coronary angiography earlier this year This most likely represents a cardiac memory, once she flips from a left bundle to a narrow QRS, EKG expresses that T-wave change of cardiac memory The T-wave inversions are quite prominent but she has no evidence for LV dysfunction this time Plan Continue beta blockers, she has a history of A. fib with RVR Continue ELIQUIS for history of atrial fibrillation Low dose spironolactone for low potassium Low-dose losartan 25 mg by mouth daily Monitor blood pressure Check TSH Objective - Vital Signs Vital signs: Vital Signs Temp 98.7 F 03/04/21 12:00 Pulse 55 L 03/04/21 12:00 Resp 20 03/04/21 12:00 BP 167/70 03/04/21 12:00 Pulse Ox 97 03/04/21 12:00 Intake & Output 03/03/21 03/04/21 03/04/21 18:59 06:59 18:59 Intake Total 940 1220 120 Balance 940 1220 120 Weight 65 kg Intake: Intake, IV Titration 700 1100 Amount Sodium Chloride 0.9% 1, 700 1100 000 ml @ 100 mls/hr IV . Q10H [facility] Rx#:[id number] Oral 240 120 120 Other: # Voids 1 3 - Labs CBC & Chem 7: 03/03/21 07:42 03/03/21 07:42 Labs: Microbiology - Last 24 Hours (Table) 03/01/21 21:33 Blood Culture - Preliminary Blood No Growth after 48 hours
[2021-03-04] MEDS: HYDROcodone/APAP 10-325MG 1 EACH TAB PO PRN (12:18)
[2021-03-04] MEDS ORDERED: LOSARTAN 25 MG TAB PO SCH ×2 (12:30→18:00)
--- NOTE | 2021-03-04 15:39 | P.PN ---
Subjective Progress Note Date: 03/04/21 CHIEF COMPLAINT: Abdominal pain. HISTORY OF PRESENT ILLNESS: The patient is a 75-year-old female with complicated surgical history including gastric bypass, colostomy for perforated diverticulitis and colostomy reversal. She reports improvement of her abdominal pain but still present. She reports new constipation. ROS: No fevers or chills. No shortness of breath. PHYSICAL EXAM: VITAL SIGNS: Reviewed CONSTITUTIONAL: Well developed and in no acute distress. EYES: Conjuctivae without sclera icterus. Extraocular movements grossly intact. HEAD, EARS, NOSE, THROAT: Moist buccal mucosa. Head is atraumatic, normocephalic. Hears conversational speech. No nasal drainage. NECK: Supple. No thyroidomegaly. RESPIRATORY: Non-labored respirations and equal bilateral excursions. CARDIOVASCULAR: Palpable 2+ radial pulses. ABDOMEN: Generalized decreased tenderness MUSCULOSKELETAL: No gross deformity of the lower extremities noted. No clubbing. No cyanosis. SKIN: Good skin turgor. Well perfused. NEUROLOGIC: Cranial nerves II through XII grossly intact. No focal or lateralizing signs. PSYCH: Alert to person, place and time. Appropriate affect. CLINICAL LABS: Reviewed. No new labs ASSESSMENT: 1. Generalized abdominal pain 2. History of colectomy 3. History of gastric bypass 4. Constipation PLAN: 1. She reports new constipation. Start lactulose and Miralax Objective - Vital Signs Vital signs: Vital Signs Temp 98.7 F 03/04/21 12:00 Pulse 55 L 03/04/21 12:00 Resp 20 03/04/21 12:00 BP 167/70 03/04/21 12:00 Pulse Ox 97 03/04/21 12:00 Intake & Output 03/03/21 03/04/21 03/04/21 18:59 06:59 18:59 Intake Total 940 1220 1100 Balance 940 1220 1100 Weight 65 kg Intake: Intake, IV Titration 700 1100 800 Amount Sodium Chloride 0.9% 1, 700 1100 800 000 ml @ 100 mls/hr IV . Q10H [facility] Rx#:[id number] Oral 240 120 300 Other: # Voids 1 3 - Labs CBC & Chem 7: 03/03/21 07:42 03/03/21 07:42 Labs: Abnormal Lab Results - Last 24 Hours (Table) 03/03/21 Range/Units 07:26 TSH 28.300 H (0.465-4.680) mIU/L Microbiology - Last 24 Hours (Table) 03/01/21 21:33 Blood Culture - Preliminary Blood No Growth after 48 hours Assessment and Plan (1) Abdominal pain Current Visit: Yes Status: Acute Code(s): R10.9 - UNSPECIFIED ABDOMINAL PAIN SNOMED Code(s): 61347508 (2) Generalized abdominal pain Current Visit: No Status: Acute Code(s): R10.84 - GENERALIZED ABDOMINAL PAIN SNOMED Code(s): 475548894 (3) H/O gastric bypass Current Visit: No Status: Acute Code(s): Z98.890 - OTHER SPECIFIED POSTPROCEDURAL STATES SNOMED Code(s): 139610199 (4) Constipation Current Visit: Yes Status: Acute Code(s): K59.00 - CONSTIPATION, UNSPECIFIED SNOMED Code(s): 37830342
[2021-03-04] MEDS ORDERED: LACTULOSE 20 GM/30 ML CUP PO STA (15:40)
[2021-03-04] MEDS ORDERED: MAGNESIUM HYDROXIDE 2,400 MG/10 ML CUP PO STA (15:40)
[2021-03-04] MEDS: SPIRONOLACTONE 25 MG TAB PO SCH (17:16)
[2021-03-04] MEDS: hydrOXYzine HCL 10 MG TAB PO SCH (20:44)
[2021-03-04] MEDS: LORazepam 0.5 MG TAB PO PRN (23:09)
[2021-03-05] MEDS: MORPHINE SULFATE 4 MG/ML SYRINGE IVP PRN ×5 (02:07→20:04)
[2021-03-05] MEDS: LEVOTHYROXINE 100 MCG TAB PO SCH (06:12)
[2021-03-05] MEDS: SODIUM CHLORIDE 0.9% 1,000 ML IV SCH ×2 (06:14→15:59)
[2021-03-05] MEDS: METOPROLOL SUCCINATE (ER) 25 MG TAB.ER.24H PO SCH (08:45)
[2021-03-05] MEDS: PANTOPRAZOLE 40 MG/10 ML VIAL IVP SCH (08:45)
[2021-03-05] MEDS: SPIRONOLACTONE 25 MG TAB PO SCH (08:45)
[2021-03-05] MEDS: ASPIRIN 81 MG PO SCH (08:45)
[2021-03-05] MEDS: APIXABAN 5 MG TAB PO SCH ×2 (08:45→20:04)
[2021-03-05] MEDS: MAGNESIUM OXIDE 400 MG TAB PO SCH ×2 (08:45→20:04)
[2021-03-05] MEDS: FAMOTIDINE 20 MG TAB PO SCH ×2 (08:45→20:04)
--- NOTE | 2021-03-05 12:15 | P.PN ---
Subjective Progress Note Date: 03/05/21 Principal diagnosis: Abdominal pain This is Blaze lima NP, dictating a progress note on behalf of Dr. Garcia. Patient was interviewed and examined. Patient is a pleasant 75-year-old female who initially presented to the hospital with abdominal pain, hypokalemia, and NSTEMI. Patient reports that her breathing is much improved today, and her abdominal pain is slightly better. Patient's metoprolol was changed to long-acting in the morning yesterday, as well as losartan being changed to evening, and spironolactone was added in the morning. Despite these changes patient's blood pressure continues to spike early in the morning, until she gets her morning medications. GENERAL: Well-appearing, well-nourished and in no acute distress. NECK: Supple without JVD or thyromegaly. LUNGS: Breath sounds clear to auscultation bilaterally. Respiration equal and unlabored. No wheezes, rales or rhonchi. HEART: Regular rate and rhythm without murmurs, rubs or gallops. S1 and S2 heard. EXTREMITIES: Normal range of motion, no edema. No clubbing or cyanosis. Peripheral pulses intact and strong. VITALS: [Temp 98.5, pulse 62, respirations 20, blood pressure 121/65, O2 saturation 98% on room air] TELEMETRY: [Normal sinus rhythm] LABS: [No new labs for the last few days] IMPRESSION: [History of recurrent GI problems since 2016, admitted with GI symptoms again Borderline troponins with preserved LV systolic function History of atrial fibrillation documented in the past Rate related left bundle branch block pattern with a mild prolonged CT interval, left bundle branch block is rate related EKG changes most likely represent cardiac memory PLAN: Continue beta blockers Continue Eliquis Continue spironolactone Increase losartan to 50 mg by mouth daily. Give an additional 25 mg dose now. Continue to monitor blood pressure Objective - Vital Signs Vital signs: Vital Signs Temp 98.5 F 03/05/21 11:54 Pulse 62 03/05/21 11:54 Resp 20 03/05/21 11:54 BP 121/65 03/05/21 11:54 Pulse Ox 98 03/05/21 11:54 Intake & Output 03/04/21 03/05/21 03/05/21 18:59 06:59 18:59 Intake Total 1460 500 240 Balance 1460 500 240 Intake: Intake, IV Titration 800 500 Amount Sodium Chloride 0.9% 1, 800 500 000 ml @ 100 mls/hr IV . Q10H [facility] Rx#:[id number] Oral 660 240 Other: # Voids 2 - Labs CBC & Chem 7: 03/03/21 07:42 03/03/21 07:42 Labs: Abnormal Lab Results - Last 24 Hours (Table) 03/03/21 Range/Units 07:26 TSH 28.300 H (0.465-4.680) mIU/L Microbiology - Last 24 Hours (Table) 03/01/21 21:33 Blood Culture - Preliminary Blood No Growth after 72 hours
--- NOTE | 2021-03-05 14:11 | P.PN ---
Subjective Progress Note Date: 03/05/21 CHIEF COMPLAINT: Abdominal pain. HISTORY OF PRESENT ILLNESS: The patient is a 75-year-old female with complicated surgical history including gastric bypass, colostomy for perforated diverticulitis and colostomy reversal. She had constipation that resolved with magnesia and lactulose. She had several bowel movements recently. Abdominal pain improved since admission. ROS: No fevers or chills. No shortness of breath. PHYSICAL EXAM: VITAL SIGNS: Reviewed CONSTITUTIONAL: Well developed and in no acute distress. EYES: Conjuctivae without sclera icterus. Extraocular movements grossly intact. HEAD, EARS, NOSE, THROAT: Moist buccal mucosa. Head is atraumatic, normocephalic. Hears conversational speech. No nasal drainage. NECK: Supple. No thyroidomegaly. RESPIRATORY: Non-labored respirations and equal bilateral excursions. CARDIOVASCULAR: Palpable 2+ radial pulses. ABDOMEN: No peritonitis MUSCULOSKELETAL: No gross deformity of the lower extremities noted. No clubbing. No cyanosis. SKIN: Good skin turgor. Well perfused. NEUROLOGIC: Cranial nerves II through XII grossly intact. No focal or lateralizing signs. PSYCH: Alert to person, place and time. Appropriate affect. CLINICAL LABS: Reviewed. No new labs ASSESSMENT: 1. Generalized abdominal pain 2. History of colectomy 3. History of gastric bypass 4. Constipation PLAN: 1. Her constipation is resolved. 2. Stable for discharge from surgical standpoint once medically stable Objective - Vital Signs Vital signs: Vital Signs Temp 98.5 F 03/05/21 11:54 Pulse 62 03/05/21 11:54 Resp 20 03/05/21 11:54 BP 121/65 03/05/21 11:54 Pulse Ox 98 03/05/21 11:54 Intake & Output 03/04/21 03/05/21 03/05/21 18:59 06:59 18:59 Intake Total 1460 500 240 Balance 1460 500 240 Intake: Intake, IV Titration 800 500 Amount Sodium Chloride 0.9% 1, 800 500 000 ml @ 100 mls/hr IV . Q10H [facility] Rx#:[id number] Oral 660 240 Other: # Voids 2 - Labs CBC & Chem 7: 03/03/21 07:42 03/03/21 07:42 Labs: Microbiology - Last 24 Hours (Table) 03/01/21 21:33 Blood Culture - Preliminary Blood No Growth after 72 hours Assessment and Plan (1) Abdominal pain Current Visit: Yes Status: Acute Code(s): R10.9 - UNSPECIFIED ABDOMINAL PAIN SNOMED Code(s): 56524341 (2) Generalized abdominal pain Current Visit: No Status: Acute Code(s): R10.84 - GENERALIZED ABDOMINAL PAIN SNOMED Code(s): 928538743 (3) H/O gastric bypass Current Visit: No Status: Acute Code(s): Z98.890 - OTHER SPECIFIED POSTPROCEDURAL STATES SNOMED Code(s): 704056164 (4) Constipation Current Visit: Yes Status: Acute Code(s): K59.00 - CONSTIPATION, UNSPECIFIED SNOMED Code(s): 08943099
[2021-03-05] MEDS ORDERED: LOSARTAN 50 MG TAB PO SCH (18:00)
--- NOTE | 2021-03-05 18:12 | P.PN ---
Subjective Progress Note Date: 03/04/21 Principal diagnosis: Abdominal pain with vomiting possibly related to nonspecific colitis Mild wall thickening of the sigmoid colon could be related to some nonspecific colitis Abnormal troponins, unclear etiology, ACS ruled out by cardiology 75-year-old female who presents with history with a complaint of nausea and vomiting, and abdominal cramping. Abdominal cramping started on Saturday which is lower quadrant and diffuse. Patient vomited twice yesterday, denies any blood in the vomit. She denies any diarrhea, states her last bowel movement was yesterday. Patient denies any chest pain, chest pressure or palpitations. She denies any cough or shortness of breath. She denies any fever or chills. She is urinating without difficulty. Patient's a past medical history significant for atrial fibrillation, coronary artery disease status post PCI years ago, peptic ulcer disease, laryngeal cancer with treatment 20 years ago, peptic ulcer, GERD, GI bleed, hypertension, osteoarthritis, colon resection. 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 Abdominal pelvis CT completed in the shows previous gastric bypass surgery, fatty infiltration of the liver. There is some mild wall thickening of the sigmoid colon could be related to some nonspecific colitis appears to be a change compared to last exam. Patient was recently admitted to [facility] for same nausea vomiting and abdominal cramping. It appears she was also started on Augmentin 2 days ago for a two- week course. There is a cardiology consultation this admission for elevated troponins, 0.053, 0.040, 0.036. Additional labs show a sodium of 1:30, potassium 3.1, BUN 2, creatinine 0.40, glucose 108, lactic acid 3.9, magnesium 1.4, AST 44, alk phos 141, calcium 8.1, albumin 3. Total cholesterol 180, triglycerides 120, LDL 67.5, HDL 88.5. Urinalysis is within normal limits, COVID PCR not detected. 03/04/2021 Patient is seen and evaluated resting comfortably in bed; continues to complain of persistent abdominal pain Vital signs are reviewed temp is 98.7, pulse of, respiration 20, blood pressure 167/70 Patient has been evaluated by cardiology for elevated troponin; ACS has been ruled out; echocardiogram is obtained and stable Patient is recommended to continue with beta blockers and Eliquis for atrial fibrillation; continue with low-dose losartan 25 mg daily Gen. surgery following for generalized abdominal pain; patient has been reporting some constipation and has been started on lactulose and MiraLAX; CT of the abdomen done previously on 03/01/2021 revealed fatty infiltration of the liver with some mild wall thickening of sigmoid colon indicating nonspecific colitis; surgery recommending to continue with current management at this time Objective - Vital Signs Vital signs: Vital Signs Temp 98.7 F 03/04/21 12:00 Pulse 55 L 03/04/21 12:00 Resp 20 03/04/21 12:00 BP 167/70 03/04/21 12:00 Pulse Ox 97 03/04/21 12:00 Intake & Output 03/03/21 03/04/21 03/04/21 18:59 06:59 18:59 Intake Total 940 1220 120 Balance 940 1220 120 Weight 65 kg Intake: Intake, IV Titration 700 1100 Amount Sodium Chloride 0.9% 1, 700 1100 000 ml @ 100 mls/hr IV . Q10H [facility] Rx#:[id number] Oral 240 120 120 Other: # Voids 1 3 - Exam GENERAL: The patient is alert and oriented x3, not in any acute distress. Well developed, well nourished. HEENT: Pupils are round and equally reacting to light. EOMI. No scleral icterus. No conjunctival pallor. Normocephalic, atraumatic. No pharyngeal erythema. No thyromegaly. CARDIOVASCULAR: S1 and S2 present. No murmurs, rubs, or gallops. PULMONARY: Chest is clear to auscultation, no wheezing or crackles. ABDOMEN: Soft, tender to palpation lower quadrant, normoactive bowel sounds MUSCULOSKELETAL: No joint swelling or deformity. EXTREMITIES: No cyanosis, clubbing, or pedal edema. NEUROLOGICAL: Gross neurological examination did not reveal any focal deficits. SKIN: No rashes. - Labs CBC & Chem 7: 03/03/21 07:42 03/03/21 07:42 Labs: Microbiology - Last 24 Hours (Table) 03/01/21 21:33 Blood Culture - Preliminary Blood No Growth after 48 hours Assessment and Plan Assessment: Abdominal pain with vomiting possibly related to nonspecific colitis Mild wall thickening of the sigmoid colon could be related to some nonspecific colitis Abnormal troponins, unclear etiology, ACS ruled out by cardiology History of coronary artery disease s/p PCI, unknown date Hyponatremia probably related to volume depletion from vomiting Hypokalemia Hypomangesemia Lactic Acidosis probably secondary to vomiting Hypertension History of GI Bleed History of Atrial Fibrillation, on eliquis History of Colon resection History of Hypothyroid History of GERD DVT Prophylaxis: Eliquis GI Prophylaxis: IVP Protonix Plan Echocardiogram ordered Resume home medications Consult surgery Replace electrolytes Labs in the AM Clear liquid diet
--- NOTE | 2021-03-05 18:21 | P.PN ---
Subjective Progress Note Date: 03/05/21 Principal diagnosis: Abdominal pain with vomiting possibly related to nonspecific colitis Mild wall thickening of the sigmoid colon could be related to some nonspecific colitis Abnormal troponins, unclear etiology, ACS ruled out by cardiology 75-year-old female who presents with history with a complaint of nausea and vomiting, and abdominal cramping. Abdominal cramping started on Saturday which is lower quadrant and diffuse. Patient vomited twice yesterday, denies any blood in the vomit. She denies any diarrhea, states her last bowel movement was yesterday. Patient denies any chest pain, chest pressure or palpitations. She denies any cough or shortness of breath. She denies any fever or chills. She is urinating without difficulty. Patient's a past medical history significant for atrial fibrillation, coronary artery disease status post PCI years ago, peptic ulcer disease, laryngeal cancer with treatment 20 years ago, peptic ulcer, GERD, GI bleed, hypertension, osteoarthritis, colon resection. 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 Abdominal pelvis CT completed in the shows previous gastric bypass surgery, fatty infiltration of the liver. There is some mild wall thickening of the sigmoid colon could be related to some nonspecific colitis appears to be a change compared to last exam. Patient was recently admitted to [facility] for same nausea vomiting and abdominal cramping. It appears she was also started on Augmentin 2 days ago for a two- week course. There is a cardiology consultation this admission for elevated troponins, 0.053, 0.040, 0.036. Additional labs show a sodium of 1:30, potassium 3.1, BUN 2, creatinine 0.40, glucose 108, lactic acid 3.9, magnesium 1.4, AST 44, alk phos 141, calcium 8.1, albumin 3. Total cholesterol 180, triglycerides 120, LDL 67.5, HDL 88.5. Urinalysis is within normal limits, COVID PCR not detected. 03/04/2021 Patient is seen and evaluated resting comfortably in bed; continues to complain of persistent abdominal pain Vital signs are reviewed temp is 98.7, pulse of, respiration 20, blood pressure 167/70 Patient has been evaluated by cardiology for elevated troponin; ACS has been ruled out; echocardiogram is obtained and stable Patient is recommended to continue with beta blockers and Eliquis for atrial fibrillation; continue with low-dose losartan 25 mg daily Gen. surgery following for generalized abdominal pain; patient has been reporting some constipation and has been started on lactulose and MiraLAX; CT of the abdomen done previously on 03/01/2021 revealed fatty infiltration of the liver with some mild wall thickening of sigmoid colon indicating nonspecific colitis; surgery recommending to continue with current management at this time 03/05/2021 Patient is seen and evaluated in her bedside; report some improvement in abdominal pain Vital signs are reviewed temperature 98.5, pulse 62, respiration 20, blood pressure 121/65 Cardiology recommending change in beta blockers to long-acting for improved rate controlled given atrial fibrillation with RVR; patient is tolerating; remains on Eliquis; losartan is increased from 25 mg daily up to 50 mg daily; continue to monitor blood pressure closely; constipation is improved; patient continues to complain of abdominal pain and requiring morphine; await further recommendations from general surgery Objective - Vital Signs Vital signs: Vital Signs Temp 98.1 F 03/05/21 08:00 Pulse 75 03/05/21 08:00 Resp 20 03/05/21 08:00 BP 179/80 03/05/21 08:00 Pulse Ox 99 03/05/21 08:00 Intake & Output 03/04/21 03/05/21 03/05/21 18:59 06:59 18:59 Intake Total 1460 500 Balance 1460 500 Intake: Intake, IV Titration 800 500 Amount Sodium Chloride 0.9% 1, 800 500 000 ml @ 100 mls/hr IV . Q10H [facility] Rx#:[id number] Oral 660 Other: # Voids 2 - Exam GENERAL: The patient is alert and oriented x3, not in any acute distress. Well developed, well nourished. HEENT: Pupils are round and equally reacting to light. EOMI. No scleral icterus. No conjunctival pallor. Normocephalic, atraumatic. No pharyngeal erythema. No thyromegaly. CARDIOVASCULAR: S1 and S2 present. No murmurs, rubs, or gallops. PULMONARY: Chest is clear to auscultation, no wheezing or crackles. ABDOMEN: Soft, tender to palpation lower quadrant, normoactive bowel sounds MUSCULOSKELETAL: No joint swelling or deformity. EXTREMITIES: No cyanosis, clubbing, or pedal edema. NEUROLOGICAL: Gross neurological examination did not reveal any focal deficits. SKIN: No rashes. - Labs CBC & Chem 7: 03/03/21 07:42 03/03/21 07:42 Labs: Abnormal Lab Results - Last 24 Hours (Table) 03/03/21 Range/Units 07:26 TSH 28.300 H (0.465-4.680) mIU/L Microbiology - Last 24 Hours (Table) 03/01/21 21:33 Blood Culture - Preliminary Blood No Growth after 72 hours Assessment and Plan Assessment: Abdominal pain with vomiting possibly related to nonspecific colitis Mild wall thickening of the sigmoid colon could be related to some nonspecific colitis Abnormal troponins, unclear etiology, ACS ruled out by cardiology History of coronary artery disease s/p PCI, unknown date Hyponatremia probably related to volume depletion from vomiting Hypokalemia Hypomangesemia Lactic Acidosis probably secondary to vomiting Hypertension History of GI Bleed History of Atrial Fibrillation, on eliquis History of Colon resection History of Hypothyroid History of GERD DVT Prophylaxis: Eliquis GI Prophylaxis: IVP Protonix Plan Echocardiogram ordered Resume home medications Consult surgery Replace electrolytes Labs in the AM Clear liquid diet
[2021-03-05] MEDS: hydrOXYzine HCL 10 MG TAB PO SCH (20:04)
[2021-03-05] MEDS ORDERED: Potassium Replacement Protocol 1 EACH MISC MISCELLANE PRN (20:08)
[2021-03-05] MEDS ORDERED: POTASSIUM CHLORIDE ER 20 MEQ TAB.ER PO SCH (21:00)
[2021-03-05] MEDS: LORazepam 0.5 MG TAB PO PRN (22:05)
[2021-03-05] MEDS: NITROGLYCERIN SL TABS 0.4 MG TAB SUBLINGUAL PRN ×2 (22:36→22:41)
[2021-03-06] MEDS: MORPHINE SULFATE 4 MG/ML SYRINGE IVP PRN ×2 (01:47→06:39)
[2021-03-06 04:45] VITALS: RESP 18
[2021-03-06] MEDS: HYDROcodone/APAP 10-325MG 1 EACH TAB PO PRN (04:48)
[2021-03-06] MEDS ORDERED: LEVOTHYROXINE 25 MCG TAB PO SCH (06:30)
[2021-03-06] MEDS: LEVOTHYROXINE 100 MCG TAB PO SCH (06:39)
[2021-03-06] MEDS: SODIUM CHLORIDE 0.9% 1,000 ML IV SCH ×2 (06:40→07:56)
[2021-03-06 07:26] LABS: Anisocytosis Slight; Basophils % (A) 1 %; Eosinophils # (A) 0.2 k/uL (0-0.7); Eosinophils % (A) 3 %; HCT 29.7 % (34.0-46.0); HGB 10.1 gm/dL (11.4-16.0); Lymphocytes # (A) 2.4 k/uL (1.0-4.8); Lymphocytes % (A) 39 %; MCH 34.5 pg (25.0-35.0); MCHC 34.1 g/dL (31.0-37.0); MCV 101.1 fL (80.0-100.0); Macrocytosis Slight; Monocytes # (A) 0.6 k/uL (0-1.0); Monocytes % (A) 10 %; Neutrophils # (A) 2.7 k/uL (1.3-7.7); Neutrophils % (A) 45 %; Platelet Count 178 k/uL (150-450); RBC 2.94 m/uL (3.80-5.40); RDW 16.1 % (11.5-15.5)
[2021-03-06] MEDS ORDERED: PANTOPRAZOLE 40 MG TABLET PO SCH (07:30)
[2021-03-06] MEDS: APIXABAN 5 MG TAB PO SCH (07:53)
[2021-03-06] MEDS: SPIRONOLACTONE 25 MG TAB PO SCH (07:53)
[2021-03-06] MEDS: ASPIRIN 81 MG PO SCH (07:54)
[2021-03-06] MEDS: MAGNESIUM OXIDE 400 MG TAB PO SCH (07:54)
[2021-03-06] MEDS: FAMOTIDINE 20 MG TAB PO SCH (07:54)
[2021-03-06] MEDS: METOPROLOL SUCCINATE (ER) 25 MG TAB.ER.24H PO SCH (07:54)
[2021-03-06 08:29] LABS: African American GFR (CKD) >90 (>60 ml/min/1.73 sqM); Anion Gap 2 mmol/L; Blood Urea Nitrogen 7 mg/dL (7-17); Calcium 7.3 mg/dL (8.4-10.2); Carbon Dioxide 21 mmol/L (22-30); Chloride 107 mmol/L (98-107); Glucose 82 mg/dL (74-99); Non-African American GFR(CKD) >90 (>60 ml/min/1.73 sqM); Potassium 3.9 mmol/L (3.5-5.1); Sodium 130 mmol/L (137-145)
--- NOTE | 2021-03-06 10:45 | CDI ---
Documentation Clarification Form Date: 03/06/2021 10:31:12 AM From: Tanja WaldropMenesesGABE, CCDS Admit Date: 03/02/2021 01:41:00 AM Patient Name: Tanja Ramirez Visit Number: [id number] Discharge Date: ATTENTION: The Clinical Documentation Specialists (CDI) and [facility] Coding Staff appreciate your assistance in clarifying documentation. Please respond to the clarification below the line at the bottom and electronically sign. The CDI & [facility] Coding staff will review the response and follow-up if needed. Please note: Queries are made part of the Legal Health Record. If you have any questions, please contact the author of this message via ITS. Dr. Sean Garcia: Atrial Fibrillation is documented in the 03/01 ED Note Past Medical History and in the subsequent 03/02 H/P, 03/02 Cardiology Consult and in subsequent Progress Notes without further specificity. Additional clarification regarding the type of Atrial Fibrillation is requested. History/Risk Factors per the 03/02 H/P: History of Colostomy w/reversal due to perforated Diverticulitis, peptic Ulcer, CAD status post PCI, Hypertension, GI Bleed, Laryngeal Cancer status post Radiation, MRSA and Atrial Fibrillation on Eliquis, GERD. Former smoker. Clinical Indicators per the 03/01 ED Note: Presented with abdominal pain, Nausea, Vomiting, Diarrhea and Fever. Elevated Troponins. Admit with Abdominal pain and NSTEMI (later ruled out by Cardiology) 03/02 VS: T 97.6, P 70, R 20, BP 146/102, PO 95 RA, BMI 27.6 03/02 LAB: Na 130, K 3.1, Lactic Acid 3.9, 1.8; Calcium 8.1, Mag 1.4, AST 44, Alk Phos 141, Troponin 0.040, 0.036; Albumin 3.0 03/02 EKG #1: R 72 nsr, T wave abnormality, consider inferior ischemia and anterolateral ischemia, 1st Deg AV block, Prolonged QT. 03/02 EKG #2: R 69 Sinus rhythm with fusion complexes & PACs w/aberrant conduction. ST & T wave abnormality, consider inferior ischemia & anterolateral ischemia, Prolonged QT 03/02 EKG #3: R 80 nsr w/sinus arrhythmia, Left axis deviation, LBBB Treatment 03/01: IV Morphine 4 mg x1, IV Zofran 4 mg x1, IV fl 500 mls @ 999 mls/hr q31M, po KDur, po Aspirin 324 mg x1, Nitro sl q5M prn 03/02: IV mag Sulfate/Dextrose 100 mls @ 100 mls/hr q1H, po Aspirin, po [place] prn, po Ativan prn, IV Morphine 4 mg q4Hr prn, IV fl 1,000 mls @ 100 mls/hr q10H, IV Toradol 15 mg q6H, IV Zofran 4 mg q6H prn, po KDur q1H, po Eliquis 5 mg BID, po Lopressor 25 mg BID Please clarify the type of Atrial Fibrillation, if known: [ ] Chronic [ ] Permanent [ ] Paroxysmal [ ] Persistent [ ] Other, please specify [ ] Unable to determine (Template Last Revised: August 2020) 03/08/2021: Query response documented in 03/06 Cardiology Progress Note: Paroxysmal Atrial Fibrillation (CDI: TALIA) MTDD
[2021-03-06 11:42] VITALS: BP 160/72; PULSE 62; TEMP 97.9
--- NOTE | 2021-03-06 12:23 | P.PN ---
Subjective Progress Note Date: 03/06/21 HISTORY OF PRESENT ILLNESS: This is a 75-year-old female who used to follow in office with Dr. 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 She is admitted to the [facility] secondary to abdominal pain. She continues to report abdominal pain this morning and states she threw up this morning. She denies chest pain or pressure. Denies shortness of breath. Telemetry reveals sinus mechanism. She has a history of atrial fibrillation and is prescribed Eliquis. Patients losartan was increased yesterday. Blood pressure this morning 131/60. Echo reveals EF 55-60%. PHYSICAL EXAM: VITAL SIGNS: Reviewed. GENERAL: Well-developed in no acute distress. NECK: Supple. No JVD or thyromegaly LUNGS: Respirations even and unlabored. Lungs essentially clear to auscultation bilaterally. HEART: Regular rate and rhythm. S1 and S2 heard. EXTREMITIES: Normal range of motion. No clubbing or cyanosis. Peripheral pulses intact. No lower extremity edema ASSESSMENT: Abdominal pain Paroxysmal atrial fibrillation, on anticoagulation with Eliquis Hypertension Abnormal troponins, not suggestive of ACS PLAN: Continue current cardiac medications Patient is stable for discharge home from a cardiac standpoint Nurse practitioner note has been reviewed by physician. Signing provider agrees with the documented findings, assessment, and plan of care. Objective - Vital Signs Vital signs: Vital Signs Temp 97.9 F 03/06/21 11:41 Pulse 62 03/06/21 11:41 Resp 18 03/06/21 11:41 BP 160/72 03/06/21 11:41 Pulse Ox 100 03/06/21 11:41 Intake & Output 03/05/21 03/06/21 03/06/21 18:59 06:59 18:59 Intake Total 1158 118 800 Balance 1158 118 800 Weight 70.8 kg Intake: Intake, IV Titration 800 800 Amount Sodium Chloride 0.9% 1, 800 800 000 ml @ 100 mls/hr IV . Q10H [facility] Rx#:[id number] Oral 358 118 Other: Voiding Method Toilet # Voids 1 1 # Bowel Movements 1 - Labs CBC & Chem 7: 03/06/21 06:54 03/06/21 06:54 Labs: Abnormal Lab Results - Last 24 Hours (Table) 03/06/21 03/06/21 Range/Units 06:54 06:54 RBC 2.94 L (3.80-5.40) m/uL Hgb 10.1 L (11.4-16.0) gm/dL Hct 29.7 L (34.0-46.0) % MCV 101.1 H (80.0-100.0) fL RDW 16.1 H (11.5-15.5) % Sodium 130 L (137-145) mmol/L Carbon Dioxide 21 L (22-30) mmol/L Creatinine 0.48 L (0.52-1.04) mg/dL Calcium 7.3 L (8.4-10.2) mg/dL Microbiology - Last 24 Hours (Table) 03/01/21 21:33 Blood Culture - Preliminary Blood No Growth after 96 hours
--- NOTE | 2021-03-06 13:10 | P.DS ---
Providers Date of admission: 03/02/21 01:41 Attending physician: Compa Medina Consults: 03/01/21 23:19 Consult Physician Urgent Consulting Provider: [facility] Consult Reason/Comments: NSTEMI; Abn EKG Do you want consulting provider notified?: Yes 03/02/21 12:59 Consult Physician Routine Consulting Provider: Phil Burt Consult Reason/Comments: abdominal pain Do you want consulting provider notified?: Yes Primary care physician: Courtney Cook Hospital Course: Patient was admitted for crampy abdominal pain patient has multiple hospitalizations and patient had gastric bypass surgery colostomy and multiple episodes of colitis and never colitis in the past patient completed antibiotic therapy for her colitis antipyretic therapy may not be beneficial anymore patient is still complaining of some epigastric abdominal discomfort for which we'll give proton pump inhibitor. Patient is cleared by gastroenterology, patient had episodes of constipation. Patient was advised to cut down her glucose in any of the opiates that can cause constipation. Patient will be discharged today with follow with PCP and pain management as an outpatient patient also takes Imodium and as-needed basis. PHYSICAL EXAMINATION: GENERAL: The patient is alert and oriented x3, not in any acute distress. Well developed, well nourished. HEENT: Pupils are round and equally reacting to light. EOMI. No scleral icterus. No conjunctival pallor. Normocephalic, atraumatic. No pharyngeal erythema. No thyromegaly. CARDIOVASCULAR: S1 and S2 present. No murmurs, rubs, or gallops. PULMONARY: Chest is clear to auscultation, no wheezing or crackles. ABDOMEN: Soft, nontender, nondistended, normoactive bowel sounds. No palpable organomegaly. MUSCULOSKELETAL: No joint swelling or deformity. EXTREMITIES: No cyanosis, clubbing, or pedal edema. NEUROLOGICAL: Gross neurological examination did not reveal any focal deficits. SKIN: No rashes. -Abdominal discomfort patient has chronic pain in the abdomen will benefit from outpatient evaluation by dip painter patient was treated multiple times for a colitis and the patient will not require any antibiotics and patient will not benefit from any more antibiotics at this time. -Possibility of gastric reflux disease patient will be discharged on empiric proton pump inhibitor for 2 weeks followed by Pepcid thereafter -Mildly elevated troponins rule out a concurrent syndromes cariology evaluated the patient and this was believed to be type II non-ST elevation TN -Hyponatremia: Aldactone will be discontinued -Hypertension -Hypothyroidism -History of atrial fibrillation for which patient is on Eliquis which will be continued Patient Condition at Discharge: Serious Plan - Discharge Summary Discharge Rx Participant: No New Discharge Prescriptions: New Losartan [Cozaar] 50 mg PO DAILY@1800 tab Nitroglycerin Sl Tabs [Nitrostat] 0.4 mg SUBLINGUAL Q5M PRN tab PRN Reason: Chest Pain Omeprazole [PriLOSEC] 40 mg PO AC-BRKFST #14 cap Continue Levothyroxine Sodium [Synthroid] 200 mcg PO DAILY Ondansetron Odt [Zofran ODT] 4 mg PO Q8HR PRN #10 tab PRN Reason: Nausea Metoprolol Tartrate [Lopressor] 25 mg PO BID #60 tab Calcium Carbonate [Tums] 500 mg PO QID PRN tab PRN Reason: Heartburn Megestrol Acetate 40 mg PO BID hydrOXYzine HCL [Atarax] 10 mg PO HS LORazepam [Ativan] 0.5 mg PO HS PRN PRN Reason: Anxiety/SLEEP Aspirin [Adult Low Dose Aspirin EC] 81 mg PO DAILY 30 Days #30 tab Apixaban [Eliquis] 5 mg PO BID #60 tab Loperamide [Imodium] 2 mg PO QID PRN #0 cap PRN Reason: Diarrhea Magnesium Oxide [Mag-Ox] 400 mg PO BID #60 tablet Changed HYDROcodone/APAP 10-325MG [[place] 10-325] 1 tab PO BID #0 Discontinued Amoxic-Pot Clav 875-125Mg [Augmentin 875-125] 1 tab PO BID Famotidine [Pepcid] 20 mg PO BID #60 tablet Discharge Medication List Levothyroxine Sodium [Synthroid] 200 mcg PO DAILY 01/12/19 [History] LORazepam [Ativan] 0.5 mg PO HS PRN 11/25/20 [History] Aspirin [Adult Low Dose Aspirin EC] 81 mg PO DAILY 30 Days #30 tab 12/02/20 [Rx] Ondansetron Odt [Zofran ODT] 4 mg PO Q8HR PRN #10 tab 12/04/20 [Rx] Apixaban [Eliquis] 5 mg PO BID #60 tab 01/12/21 [Rx] Calcium Carbonate [Tums] 500 mg PO QID PRN tab 01/12/21 [Rx] Loperamide [Imodium] 2 mg PO QID PRN #0 cap 01/12/21 [Rx] Magnesium Oxide [Mag-Ox] 400 mg PO BID #60 tablet 01/12/21 [Rx] Metoprolol Tartrate [Lopressor] 25 mg PO BID #60 tab 01/12/21 [Rx] Megestrol Acetate 40 mg PO BID 03/01/21 [History] hydrOXYzine HCL [Atarax] 10 mg PO HS 03/01/21 [History] HYDROcodone/APAP 10-325MG [[place] 10-325] 1 tab PO BID #0 03/06/21 [Rx] Losartan [Cozaar] 50 mg PO DAILY@1800 tab 03/06/21 [Rx] Nitroglycerin Sl Tabs [Nitrostat] 0.4 mg SUBLINGUAL Q5M PRN tab 03/06/21 [Rx] Omeprazole [PriLOSEC] 40 mg PO AC-BRKFST #14 cap 03/06/21 [Rx] Follow up Appointment(s)/Referral(s): Sean Garcia MD [STAFF PHYSICIAN] - 3 Weeks Joey Valdez MD [Primary Care Provider] - 1-2 days [facility] Visiting Nurse, [NON-STAFF] - Patient Instructions/Handouts: Acute Abdominal Pain (DC) Discharge Disposition: HOME SELF-CARE
--- NOTE | 2021-03-06 14:28 | P.PN ---
Subjective Progress Note Date: 03/06/21 CHIEF COMPLAINT: Abdominal pain HISTORY OF PRESENT ILLNESS: The patient is a 75-year-old female with complicated surgical history including gastric bypass, colostomy for perforated diverticulitis and colostomy reversal. She had constipation that resolved with magnesia and lactulose. Patient reports her last bowel movement was this morning it was small. Per patient she reports one small episode of vomiting. This was not witnessed by nursing staff. Patient complains of lower abdominal pain. She has been requiring pain medication. Afebrile. WBC 6.0 PHYSICAL EXAM: VITAL SIGNS: Reviewed. GENERAL: Well-developed in no acute distress. HEENT: No sclera icterus. Extraocular movements grossly intact. Moist buccal mucosa. Head is atraumatic, normocephalic. ABDOMEN: Soft. Nondistended. Nontender. NEUROLOGIC: Alert and oriented. Cranial nerves II through XII grossly intact. ASSESSMENT: 1. Abdominal pain and possible nonspecific colitis noted on CAT scan 2. Constipation 3. History of perforated diverticulitis with colostomy and reversal 4. Chronic abdominal pain PLAN: -Encourage patient to ambulate -Encourage patient to sit up after eating -Encourage patient to use her oral pain medications instead of the IV pain medications -Continue regular diet Physician Range Technician note has been reviewed by physician. Signing provider agrees with the documented findings, assessment, and plan of care. Objective - Vital Signs Vital signs: Vital Signs Temp 98.0 F 03/06/21 07:58 Pulse 78 03/06/21 08:00 Resp 18 03/06/21 08:00 BP 131/60 03/06/21 07:58 Pulse Ox 98 03/06/21 07:58 Intake & Output 03/05/21 03/06/21 03/06/21 18:59 06:59 18:59 Intake Total 1158 118 800 Balance 1158 118 800 Weight 70.8 kg Intake: Intake, IV Titration 800 800 Amount Sodium Chloride 0.9% 1, 800 800 000 ml @ 100 mls/hr IV . Q10H [facility] Rx#:[id number] Oral 358 118 Other: Voiding Method Toilet # Voids 1 1 # Bowel Movements 1 - Labs CBC & Chem 7: 03/06/21 06:54 03/06/21 06:54 Labs: Abnormal Lab Results - Last 24 Hours (Table) 03/06/21 03/06/21 Range/Units 06:54 06:54 RBC 2.94 L (3.80-5.40) m/uL Hgb 10.1 L (11.4-16.0) gm/dL Hct 29.7 L (34.0-46.0) % MCV 101.1 H (80.0-100.0) fL RDW 16.1 H (11.5-15.5) % Sodium 130 L (137-145) mmol/L Carbon Dioxide 21 L (22-30) mmol/L Creatinine 0.48 L (0.52-1.04) mg/dL Calcium 7.3 L (8.4-10.2) mg/dL Microbiology - Last 24 Hours (Table) 03/01/21 21:33 Blood Culture - Preliminary Blood No Growth after 96 hours
== END 2021-03-06 15:13 | disposition home or self-care (01) ==
LOC: EC 14:55 → OBSVTOIN 03-02 01:41 → 3SCARD 03-02 01:41 → INTOOBSV 03-02 01:41 → 3SCARD 03-02 10:33 → UNDODISIN 03-06 15:13
PROVIDERS: ADMIT Hospitalist; ATTEND Hospitalist
DX: K52.9 Noninfective gastroenteritis and colitis, unspecified (principal); E87.2 Acidosis; I51.81 Takotsubo syndrome; I21.A1 Myocardial infarction type 2; E87.6 Hypokalemia; D64.9 Anemia, unspecified; I45.81 Long QT syndrome; I25.10 Atherosclerotic heart disease of native coronary artery without angina pectoris; E87.1 Hypo-osmolality and hyponatremia; I48.0 Paroxysmal atrial fibrillation; I44.7 Left bundle-branch block, unspecified; E83.42 Hypomagnesemia; E03.9 Hypothyroidism, unspecified; K76.0 Fatty (change of) liver, not elsewhere classified; K21.9 Gastro-esophageal reflux disease without esophagitis; I10 Essential (primary) hypertension; G89.29 Other chronic pain; M54.9 Dorsalgia, unspecified; K59.00 Constipation, unspecified; H91.90 Unspecified hearing loss, unspecified ear; M19.90 Unspecified osteoarthritis, unspecified site; K43.2 Incisional hernia without obstruction or gangrene; F41.0 Panic disorder [episodic paroxysmal anxiety]; F32.A Depression, unspecified; F41.9 Anxiety disorder, unspecified; Z20.822 Contact with and (suspected) exposure to COVID-19; Z79.01 Long term (current) use of anticoagulants; Z79.82 Long term (current) use of aspirin; Z79.890 Hormone replacement therapy; Z79.899 Other long term (current) drug therapy; Z91.040 Latex allergy status; Z88.1 Allergy status to other antibiotic agents; Z83.3 Family history of diabetes mellitus; Z98.84 Bariatric surgery status; Z86.14 Personal history of Methicillin resistant Staphylococcus aureus infection; Z16.22 Resistance to vancomycin related antibiotics; Z98.42 Cataract extraction status, left eye; Z87.11 Personal history of peptic ulcer disease; Z90.49 Acquired absence of other specified parts of digestive tract; Z95.5 Presence of coronary angioplasty implant and graft; Z96.653 Presence of artificial knee joint, bilateral; Z90.710 Acquired absence of both cervix and uterus; Z87.891 Personal history of nicotine dependence; Z87.828 Personal history of other (healed) physical injury and trauma; Z85.21 Personal history of malignant neoplasm of larynx; Z87.19 Personal history of other diseases of the digestive system; Z98.890 Other specified postprocedural states; Z82.49 Family history of ischemic heart disease and other diseases of the circulatory system; Z80.9 Family history of malignant neoplasm, unspecified
CPT/HCPCS: 96376 ×6; 96361 ×6; 96375 ×2; 96365; 96366; 99285; 36415 ×2; 93005; 93306; 84439; 80061; 80053; 80048 ×3; 84443; 83605 ×2; 83690; 83735 ×2; 84484 ×2; 85025 ×3; 81003; 87040; 87635; 74177; G0378 ×5; J2270 ×7; J2405; J3475; C9113 ×3; Q9967; 96374

== ENCOUNTER 2021-03-14 09:24 | Inpatient (IN) | payer MEDICARE ==
[2021-03-14 10:10] LABS: INR 1.2 (<1.2); Partial Thromboplastin Time 24.5 sec (22.0-30.0); Prothrombin Time 12.1 sec (9.0-12.0)
[2021-03-14] MEDS ORDERED: MORPHINE SULFATE 4 MG/ML SYRINGE IVP STA (10:23)
--- NOTE | 2021-03-14 10:23 | ED ---
Chest Pain HPI - General Chief Complaint: Chest Pain Stated Complaint: Chest pain Source: EMS Mode of arrival: EMS Limitations: no limitations - History of Present Illness Initial Comments: 75-year-old female who presents to the emergency department with chest pain. Patient was just recently hospitalized and discharged from our facility on the . At that time she had an abnormal EKG and was evaluated by cardiology. Diagnosed with an STEMI. Given nitro to take at home for her chest pain. She reports a history of coronary artery disease with one stent which was placed approximately 10 years ago. States that they had another vessel that they're watching however she never had a stent placed in that second one. She has had issues with her bowels over the past 9 months. She had a perforated bowel with resection and colostomy. Colostomy was then reversed. Surgeries were performed by Dr. Burt. She has had chronic constipation and nausea with vomiting since. Patient denies any new abdominal symptoms at this time. Denies cough, fevers or chills. She took one nitro at home and was given a second one by EMS. Reports that her symptoms improved. Chest pain did start after she had some vomiting. No numbness, tingling or weakness in her extremities. 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 - Related Data Home Medications Medication Instructions Recorded Confirmed Levothyroxine Sodium [Synthroid] 200 mcg PO DAILY 01/12/19 03/14/21 LORazepam [Ativan] 0.5 mg PO HS PRN 11/25/20 03/14/21 Megestrol Acetate 40 mg PO BID 03/01/21 03/14/21 hydrOXYzine HCL [Atarax] 10 mg PO HS 03/01/21 03/14/21 Previous Rx's Medication Instructions Recorded Aspirin [Adult Low Dose Aspirin EC] 81 mg PO DAILY 30 Days #30 tab 12/02/20 Ondansetron Odt [Zofran ODT] 4 mg PO Q8HR PRN #10 tab 12/04/20 Apixaban [Eliquis] 5 mg PO BID #60 tab 01/12/21 Calcium Carbonate [Tums] 500 mg PO QID PRN tab 01/12/21 Loperamide [Imodium] 2 mg PO QID PRN #0 cap 01/12/21 Magnesium Oxide [Mag-Ox] 400 mg PO BID #60 tablet 10/07/21 Metoprolol Tartrate [Lopressor] 25 mg PO BID #60 tab 01/12/21 HYDROcodone/APAP 10-325MG [[place] 1 tab PO BID #0 03/06/21 10-325] Losartan [Cozaar] 50 mg PO DAILY@1800 tab 03/06/21 Nitroglycerin Sl Tabs [Nitrostat] 0.4 mg SUBLINGUAL Q5M PRN tab 03/06/21 Omeprazole [PriLOSEC] 40 mg PO AC-BRKFST #14 cap 03/06/21 Allergies Allergy/AdvReac Type Severity Reaction Status Date / Time latex Allergy Unknown Verified 03/14/21 11:18 vancomycin Allergy Rash/Hives Verified 03/14/21 11:18 Review of Systems ROS Statement: Those systems with pertinent positive or pertinent negative responses have been documented in the HPI. ROS Other: All systems not noted in ROS Statement are negative. EKG Findings - EKG Comments: EKG Findings:: EKG demonstrates A. fib with a rate of 103. QRS 150. QTC of 544. There is some baseline artifact. Diffuse ST depression with T-wave inversion in V2 through V6. EKG demonstrates normal sinus rhythm with a ventricular rate of 91. GA interval 180. Dressing 86. QTC of 533. Continues to have inverted T waves ST depression V2 through V6 Past Medical History Past Medical History: Atrial Fibrillation, Coronary Artery Disease (CAD), Cancer, Eye Disorder, GERD/Reflux, GI Bleed, Hearing Disorder / Deafness, Hypertension, Musculoskeletal Disorder, Osteoarthritis (OA), Thyroid Disorder Additional Past Medical History / Comment(s): Peptic ulcer, chronic back pain, laryngeal cancer/tx-approx 20 yrs ago, head injury in 2012, cataract removal left eye. Pt states she has a hole in her left eardrum. 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 SHOULDER Past Surgical History: Bariatric Surgery, Bowel Resection, Cholecystectomy, Heart Catheterization, Heart Catheterization With Stent, Hysterectomy, Joint Replacement, Orthopedic Surgery Additional Past Surgical History / Comment(s): 1 stent, Bilateral knee replacement, left shoulder rotator cuff surgery, gastric bypass, D&C w/ corrective surgery, EGD/colonoscopy, laryngeal tumor removed 30 radiation treatments about 20 years ago, Ganglion Cysts both wrists.PAIN CLINIC INJECTIONS, colostomy 06/2020 w/ reversal in August Past Anesthesia/Blood Transfusion Reactions: No Reported Reaction Date of Last Stent Placement:: 2003 Past Psychological History: Anxiety, Depression, Panic Disorder Smoking Status: Former smoker Past Alcohol Use History: Occasional Past Drug Use History: None Reported - Past Family History Mother Family Medical History: Cancer, Congestive Heart Failure (CHF), Diabetes Mellitus, Hypertension Additional Family Medical History / Comment(s): Mother passed at 93. Father Family Medical History: Myocardial Infarction ([place]) Additional Family Medical History / Comment(s): Father of a [place] at the age of 39 yrs. Sister(s) Family Medical History: Cancer Brother(s) Family Medical History: Cancer, Myocardial Infarction ([place]) General Exam Limitations: no limitations Course Vital Signs 03/14/21 03/14/21 09:33 09:55 Temperature 98.6 F Pulse Rate 100 93 Respiratory 18 18 Rate Blood Pressure 189/116 167/98 O2 Sat by Pulse 99 100 Oximetry Chest Pain MDM - MDM Upon arrival patient is placed into room 11. Thorough history and physical exam is performed. Placed on continuous pulse ox and cardiac monitoring. Patient does have diffuse ST depressions in V1 through V6. She is given 4 morphine with pain resolution. Laboratory studies are conducted and reviewed. Magnesium 1.4. This is replaced her chest x-ray demonstrates no acute process. Patient reevaluated and reports to improvement in her symptoms. Did recommend admission for abnormal EKG for which the patient did agree to. Spoke with [facility] agree to admit the patient. Remained in stable condition awaiting a bed on the floor Disposition Clinical Impression: Chest pain Disposition: ADMITTED IP TO THIS [facility] Condition: Stable Is patient prescribed a controlled substance at d/c from ED?: No Referrals: Joey Valdez MD [Primary Care Provider] - 1-2 days Decision to Admit Reason: Admit from EC Decision Date: 03/14/21 Decision Time: 13:02
--- NOTE | 2021-03-14 10:25 | XR ---
EXAMINATION TYPE: XR chest 2V DATE OF EXAM: 03/14/2021 COMPARISON: Chest x-ray December 08, 2020 HISTORY: Atrial fibrillation. TECHNIQUE: Frontal and lateral views of the chest are obtained. FINDINGS: Osseous structures are demineralized. Surgical change left shoulder is partially imaged. A dvanced degenerative change right glenohumeral joint. Chronic parenchymal changes redemonstrated with out suspicious focal airspace opacity, pleural effusion, or pneumothorax seen bilaterally. Cardiac si lhouette size stable and upper limits of normal with atherosclerotic change in the thoracic aorta. Mejia spect dilated left ventricle on lateral view with posterior prominence. IMPRESSION: Chronic changes without acute pulmonary process. No significant change from prior.
[2021-03-14 10:38] LABS: Anisocytosis Slight; Basophils # (A) 0.1 k/uL (0-0.2); Basophils % (A) 1 %; Eosinophils # (A) 0.1 k/uL (0-0.7); Eosinophils % (A) 2 %; HCT 33.4 % (34.0-46.0); HGB 11.5 gm/dL (11.4-16.0); Lymphocytes # (A) 2.6 k/uL (1.0-4.8); Lymphocytes % (A) 40 %; MCH 34.2 pg (25.0-35.0); MCHC 34.3 g/dL (31.0-37.0); MCV 99.6 fL (80.0-100.0); Macrocytosis Slight; Mean Platelet Volume 8.3; Monocytes # (A) 0.6 k/uL (0-1.0); Monocytes % (A) 8 %; Neutrophils # (A) 3.1 k/uL (1.3-7.7); Neutrophils % (A) 47 %; RBC 3.35 m/uL (3.80-5.40); RDW 16.2 % (11.5-15.5); WBC 6.7 k/uL (3.8-10.6)
[2021-03-14 10:39] LABS: Platelet Count 402 k/uL (150-450)
[2021-03-14 11:07] LABS: ALT 13 U/L (4-34); AST 26 U/L (14-36); African American GFR (CKD) >90 (>60 ml/min/1.73 sqM); Albumin 2.2 g/dL (3.5-5.0); Alkaline Phosphatase 89 U/L (38-126); Anion Gap 5 mmol/L; Blood Urea Nitrogen 6 mg/dL (7-17); Calcium 7.9 mg/dL (8.4-10.2); Carbon Dioxide 19 mmol/L (22-30); Chloride 109 mmol/L (98-107); Glucose 92 mg/dL (74-99); Lipase 34 U/L (23-300); Magnesium 1.4 mg/dL (1.6-2.3); Non-African American GFR(CKD) >90 (>60 ml/min/1.73 sqM); Potassium 3.4 mmol/L (3.5-5.1); Sodium 133 mmol/L (137-145); Total Bilirubin 0.5 mg/dL (0.2-1.3); Total Protein 5.1 g/dL (6.3-8.2)
[2021-03-14] MEDS: SODIUM CHLORIDE 0.9% 1,000 ML IV SCH (12:43)
[2021-03-14] MEDS: MAGNESIUM SULFATE-D5W PMX 1 GM in DEXTROSE/WATER 1 100ML.BAG IVPB SCH ×2 (12:43→16:14)
[2021-03-14] MEDS ORDERED: NALOXONE 0.4 MG/ML 1 ML VIAL IV PRN (13:02)
[2021-03-14] MEDS ORDERED: NITROGLYCERIN SL TABS 0.4 MG TAB SUBLINGUAL PRN (14:28)
[2021-03-14] MEDS: HYDROcodone/APAP 10-325MG 1 EACH TAB PO SCH (21:04)
[2021-03-14] MEDS: METOPROLOL TARTRATE 25 MG TAB PO SCH (21:04)
[2021-03-14] MEDS: APIXABAN 5 MG TAB PO SCH (21:04)
[2021-03-14] MEDS: hydrOXYzine HCL 10 MG TAB PO SCH (21:05)
[2021-03-14] MEDS: CALCIUM CARBONATE 500 MG CHEWABLE PO PRN (21:05)
[2021-03-14] MEDS: LORazepam 0.5 MG TAB PO PRN (21:05)
[2021-03-14] MEDS: LOSARTAN 50 MG TAB PO SCH (21:07)
--- NOTE | 2021-03-14 21:37 | P.HPIM ---
History of Present Illness H&P Date: 03/14/21 Chief Complaint: Chest pain Patient is a 75-year-old female with a known history of paroxysmal atrial fibrillation on anticoagulation with Eliquis, hypertension, GERD, hearing disorder/deafness, osteoarthritis, chronic back pain and history of laryngeal cancer status post treatment approximately 20 years ago, anxiety/depression panic disorder and previous history of smoking presents to ER with the complaints of chest pain. Patient was recently admitted to hospital with chest pain/abdominal pain and work-up has been negative and was evaluated by cardiology.. Patient was discharged from the hospital on 03/06/2021. Diagnosed with NSTEMI. She has been having issues with her bowels for the past 9 months. She had a perforated bowel and resection with colostomy bag placement which then reversal. She does have chronic constipation nausea and vomiting issues. Today while she was in the college watching TV and suddenly developed sharp left retrosternal chest pain associated with nausea and episode of vomiting. Patient felt clamminess over the face. Denied any diaphoresis. She felt dizzy and lightheaded. Symptoms lasted for about 10 minutes and she took sublingual nitroglycerin tablet which seemed to relieve her symptoms. Patient presented to ER. EKG in the ER showed T inversions in the lateral leads. Chest x-ray showed no acute cardiopulmonary process. Chronic changes without acute process. No significant change from prior. Laboratory showed troponin x2 -. WBC 6.7 hemoglobin 11.5 platelets 402 INR 1.2 Sodium 133 potassium 3.4 chloride 109 bicarb is 19 BUN 6 creatinine 0.37 magnesium 1.4 troponin x2 -, proBNP [id number]. Review of Systems Constitutional: Patient denies any fever or chills . No generalized weakness or weight loss. Abdomen: Patient denied nausea vomiting and diarrhea and abdominal pain. Cardiovascular: Patient denies any chest pain or short of breath no palpitations. Respiratory: patient denied any cough or sputum production. No shortness of breath Neurologic: Patient denied any numbness or tingling headache. Musculoskeletal: Patient denies any complaints of joint swelling or deformity. Skin: Negative Psychiatric: Negative Endocrine: No heat or cold intolerance. No recent weight gain. Genitourinary: No dysuria or hematuria. All other 14 point ROS negative except the above Past Medical History Past Medical History: Atrial Fibrillation, Coronary Artery Disease (CAD), Cancer, Eye Disorder, GERD/Reflux, GI Bleed, Hearing Disorder / Deafness, Hyp ertension, Musculoskeletal Disorder, Osteoarthritis (OA), Thyroid Disorder Additional Past Medical History / Comment(s): Peptic ulcer, chronic back pain, laryngeal cancer/tx-approx 20 yrs ago, head injury in 2012, cataract removal left eye. Pt states she has a hole in her left eardrum. 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 SHOULDER Past Surgical History: Bariatric Surgery, Bowel Resection, Cholecystectomy, Heart Catheterization, Heart Catheterization With Stent, Hysterectomy, Joint Replacement, Orthopedic Surgery Additional Past Surgical History / Comment(s): 1 stent, Bilateral knee replacement, left shoulder rotator cuff surgery, gastric bypass, D&C w/ corrective surgery, EGD/colonoscopy, laryngeal tumor removed 30 radiation t reatments about 20 years ago, Ganglion Cysts both wrists.PAIN CLINIC INJECTIONS, colostomy 06/2020 w/ reversal in August Past Anesthesia/Blood Transfusion Reactions: No Reported Reaction Date of Last Stent Placement:: 2003 Past Psychological History: Anxiety, Depression, Panic Disorder Smoking Status: Former smoker Past Alcohol Use History: Occasional Past Drug Use History: None Reported - Past Family History Mother Family Medical History: Cancer, Congestive Heart Failure (CHF), Diabetes Tonya itus, Hypertension Additional Family Medical History / Comment(s): Mother passed at 93. Father Family Medical History: Myocardial Infarction ([place]) Additional Family Medical History / Comment(s): Father of a [place] at the age of 39 yrs. Sister(s) Family Medical History: Cancer Brother(s) Family Medical History: Cancer, Myocardial Infarction ([place]) Medications and Allergies Home Medications Medication Instructions Recorded Confirmed Type Levothyroxine Sodium [Synthroid] 200 mcg PO DAILY 01/12/19 03/14/21 History LORazepam [Ativan] 0.5 mg PO HS PRN 11/25/20 03/14/21 History Aspirin [Adult Low Dose Aspirin EC] 81 mg PO DAILY 30 Days #30 tab 12/02/20 03/14/21 Rx Ondansetron Odt [Zofran ODT] 4 mg PO Q8HR PRN #10 tab 12/04/20 03/14/21 Rx Apixaban [Eliquis] 5 mg PO BID #60 tab 01/12/21 03/14/21 Rx Calcium Carbonate [Tums] 500 mg PO QID PRN tab 01/12/21 03/14/21 Rx Loperamide [Imodium] 2 mg PO QID PRN #0 cap 01/12/21 03/14/21 Rx Magnesium Oxide [Mag-Ox] 400 mg PO BID #60 tablet 01/12/21 03/14/21 Rx Metoprolol Tartrate [Lopressor] 25 mg PO BID #60 tab 01/12/21 03/14/21 Rx Megestrol Acetate 40 mg PO BID 03/01/21 03/14/21 History hydrOXYzine HCL [Atarax] 10 mg PO HS 03/01/21 03/14/21 History HYDROcodone/APAP 10-325MG [[place] 1 tab PO BID #0 03/06/21 03/14/21 Rx 10-325] Losartan [Cozaar] 50 mg PO DAILY@1800 tab 03/06/21 03/14/21 Rx Nitroglycerin Sl Tabs [Nitrostat] 0.4 mg SUBLINGUAL Q5M PRN tab 03/06/21 03/14/21 Rx Omeprazole [PriLOSEC] 40 mg PO AC-BRKFST #14 cap 03/06/21 03/14/21 Rx Allergies Allergy/AdvReac Type Severity Reaction Status Date / Time latex Allergy Unknown Verified 03/14/21 11:18 vancomycin Allergy Rash/Hives Verified 03/14/21 11:18 Physical Exam Vitals: Vital Signs Temp Pulse Pulse Resp BP BP Pulse Ox 03/14/21 20:00 98 F 89 18 143/80 98 03/14/21 16:25 97.0 F L 91 18 145/76 98 03/14/21 16:00 74 16 147/83 96 03/14/21 14:10 97 F L 91 16 145/76 98 03/14/21 09:55 93 18 167/98 100 03/14/21 09:33 98.6 F 100 18 189/116 99 Intake and Output 03/14/21 03/14/21 03/14/21 06:59 14:59 22:59 Intake Total 240 240 Balance 240 240 Intake: Oral 240 240 Other: Weight 67.585 kg PHYSICAL EXAMINATION: Patient is lying in the bed comfortably, no acute distress, awake alert and oriented.. HEENT: Normocephalic. Neck is supple. Pupils reactive. Nostrils clear. Oral cavity is moist. Neck reveals no JVD, carotid bruits, or thyromegaly. CHEST EXAMINATION: Trachea is central. Symmetrical expansion. Lung herrera clear to auscultation and percussion. CARDIAC: Normal S1, S2 with no gallops. No murmurs ABDOMEN: Soft. Bowel sounds normal. No organomegaly. No abdominal bruits. Extremities: reveal no edema. No clubbing or cyanosis Neurologically awake, alert, oriented x3 with well-coordinated movements. No focal deficits noted Skin: No rash or skin lesions. Psychiatric: Cooperative. Nonsuicidal Musculoskeletal: No joint swelling or deformity. Normal range of motion. Results CBC & Chem 7: 03/14/21 09:48 03/14/21 10:27 Labs: Abnormal Lab Results - Last 24 Hours (Table) 03/14/21 03/14/21 03/14/21 Range/Units 09:48 09:48 10:27 RBC 3.35 L (3.80-5.40) m/uL Hct 33.4 L (34.0-46.0) % RDW 16.2 H (11.5-15.5) % PT 12.1 H (9.0-12.0) sec INR 1.2 H (<1.2) Sodium 133 L (137-145) mmol/L Potassium 3.4 L (3.5-5.1) mmol/L Chloride 109 H (98-107) mmol/L Carbon Dioxide 19 L (22-30) mmol/L BUN 6 L (7-17) mg/dL Creatinine 0.37 L (0.52-1.04) mg/dL Calcium 7.9 L (8.4-10.2) mg/dL Magnesium 1.4 L (1.6-2.3) mg/dL Total Protein 5.1 L (6.3-8.2) g/dL Albumin 2.2 L (3.5-5.0) g/dL Thrombosis Risk Factor Assmnt - DVT/VTE Prophylaxis DVT/VTE Prophylaxis: Pharmacologic Prophylaxis ordered - Choose All That Apply Each Risk Factor Represents 3 Points: Age 75 years or older Thrombosis Risk Factor Assessment Total Risk Factor Score: 3 Thrombosis Risk Factor Assessment Level: Moderate Risk Assessment and Plan Assessment: Chest pain/angina. Rule out ACS. Elevated BNP without other evidence of CHF Hypomagnesemia. Replaced. Recent admission with elevated troponin level/NSTEMI Diffuse T wave inversions and narrow QRS. Recently evaluated by EP. Paroxysmal atrial fibrillation on anticoagulation with Eliquis Coronary artery disease history of stent placement History of iron deficiency anemia Vitamin D deficiency Hypovolemic hyponatremia History of GI bleed Hypertension Osteoarthritis Hypothyroidism Hearing disorder/deafness Anxiety/depression and panic disorder Previous history of smoking DVT prophylaxis patient is already on Eliquis Plan: Patient will be followed IV hydration with normal saline. Telemetry monitoring. Serial EKG and troponin x3 -. Follow-up electrolytes panel. Patient will be continued on Eliquis and aspirin, metoprolol and losartan. Symptomatic management for nausea and vomiting. Continue with home medications and follow-up closely. Cardiology was consulted for evaluation. Time with Patient: Greater than 30
[2021-03-14] MEDS: MORPHINE SULFATE 4 MG/ML SYRINGE IVP PRN (22:00)
[2021-03-14] MEDS ORDERED: NITROGLYCERIN SL TABS 0.4 MG TAB SUBLINGUAL ONE (23:39)
[2021-03-15] MEDS: MORPHINE SULFATE 4 MG/ML SYRINGE IVP PRN ×4 (06:04→23:02)
[2021-03-15] MEDS: SODIUM CHLORIDE 0.9% 1,000 ML IV SCH ×2 (06:05→19:52)
[2021-03-15] MEDS: PANTOPRAZOLE 40 MG TABLET PO SCH (06:05)
[2021-03-15] MEDS: LEVOTHYROXINE 100 MCG TAB PO SCH (06:05)
[2021-03-15] MEDS: ASPIRIN 81 MG PO SCH (08:04)
[2021-03-15] MEDS: APIXABAN 5 MG TAB PO SCH ×2 (08:04→20:08)
[2021-03-15] MEDS: HYDROcodone/APAP 10-325MG 1 EACH TAB PO SCH ×2 (08:04→20:06)
[2021-03-15] MEDS: METOPROLOL TARTRATE 25 MG TAB PO SCH ×2 (08:04→20:07)
[2021-03-15] MEDS: CHOLECALCIFEROL 25 MCG (1000 IU) TABLET PO SCH (08:04)
[2021-03-15 08:12] LABS: African American GFR (CKD) >90 (>60 ml/min/1.73 sqM); Anion Gap 1 mmol/L; Blood Urea Nitrogen 4 mg/dL (7-17); Calcium 7.5 mg/dL (8.4-10.2); Carbon Dioxide 20 mmol/L (22-30); Chloride 111 mmol/L (98-107); Glucose 83 mg/dL (74-99); Non-African American GFR(CKD) >90 (>60 ml/min/1.73 sqM); Potassium 3.4 mmol/L (3.5-5.1); Sodium 132 mmol/L (137-145)
[2021-03-15 09:30] LABS: Basophils # (A) 0.1 k/uL (0-0.2); Basophils % (A) 1 %; Eosinophils # (A) 0.2 k/uL (0-0.7); Eosinophils % (A) 4 %; HCT 33.3 % (34.0-46.0); HGB 10.5 gm/dL (11.4-16.0); Hypochromasia Slight; Lymphocytes # (A) 2.4 k/uL (1.0-4.8); Lymphocytes % (A) 42 %; MCH 33.9 pg (25.0-35.0); MCHC 31.5 g/dL (31.0-37.0); Macrocytosis Marked; Mean Platelet Volume 7.8; Monocytes # (A) 0.5 k/uL (0-1.0); Monocytes % (A) 9 %; Neutrophils # (A) 2.3 k/uL (1.3-7.7); Neutrophils % (A) 41 %; Platelet Count 288 k/uL (150-450); RDW 15.4 % (11.5-15.5); WBC 5.6 k/uL (3.8-10.6)
[2021-03-15 09:38] LABS: MCV 107.6 fL (80.0-100.0)
--- NOTE | 2021-03-15 10:00 | ECHOF ---
Referral Reason:chest pain, LV function MEASUREMENTS -------- HEIGHT: 160.0 cm WEIGHT: 68.5 kg BP: IVSd: 1.3 cm (0.6 - 1.1) LVIDd: 2.8 cm (3.9 - 5.3) LVPWd: 1.2 cm (0.6 - 1.1) EDV(Teich): 31 ml IVSs: 1.3 cm LVIDs: 1.6 cm LVPWs: 1.2 cm %IVS Thck: 0 % ESV(Teich): 7 ml EF(Teich): 76 % %FS: 43 % SV(Teich): 23 ml FINDINGS -------- Limited Study The left ventricular size is normal. Left ventricular wall thickness is normal. Overall left vent ricular systolic function is moderately impaired with, an EF between 35 - 40 %. Apical anterior LV wall motion is hypokinetic. Apical lateral LV wall motion is hypokinetic. Apical inferior LV wa ll motion is hypokinetic. Apical septum LV wall motion is hypokinetic. There is no pericardial effusion. CONCLUSIONS -------- 1. The left ventricular size is normal. 2. Left ventricular wall thickness is normal. 3. Overall left ventricular systolic function is moderately impaired with, an EF between 35 - 40 %. 4. Apical anterior LV wall motion is hypokinetic. 5. Apical lateral LV wall motion is hypokinetic. 6. Apical inferior LV wall motion is hypokinetic. 7. Apical septum LV wall motion is hypokinetic. 8. There is no pericardial effusion. DATA MINING ANALYST: Jaclyn Jones RDCS
[2021-03-15 11:16] LABS: Polychromasia Present
--- NOTE | 2021-03-15 12:25 | P.CRDCN ---
History of Present Illness Consult date: 03/14/21 History of present illness: HISTORY OF PRESENT ILLNESS: This is a 75-year-old female with a past medical history significant for nonobstructive CAD, atrial fibrillation, hypertension, hyperlipidemia, nonischemic cardiomyopathy, and diverticulitis with history of colectomy and colostomy placement and subsequent reversal of colostomy in October 2020 Patient has not been following in the office with a promotion officer. She was last seen in the office in 2012. We have been asked to see the patient in consultation for chest pain. Patient examined at the bedside. Patient states yesterday she developed chest discomfort after using the bathroom. She states "it felt like someone was grabbing my heart". She reports feeling sweating and threw up three times. She denies radiation of the pain. She reports she took a Nitro which relieved her pain at home. She came to the hospital for further evaluation. She also reports another episode of chest pain this morning around 5am. She received nitro again with relief of the pain. She states the pain was not as severe as yesterday. At the time of my examination, she denies chest pain or pressure. Denies SOB. Patient reports that she had a stent placed in her heart a long time ago, however her cardiac cath from 2020 does not mention any visualized stents. EKG reveals atrial fibrillation with controlled ventricular rate. T wave inversions in precordial leads which has been noted on previous EKGs. Chest xray chronic changes without acute pulmonary process. No significant change from prior. Laboratory data: WBC 6.7. Hemoglobin 11.5. Platelet count 402. Sodium 133. Potassium 3.4. BUN 6. Creatinine 0.37. Magnesium 1.4. Troponin negative 1. ProBNP 12,700. Current home cardiac medications include metoprolol titrate 25 mg twice a day, losartan 50 mg daily, aspirin 81 mg daily, and Eliquis 5mg twice a day Most recent echocardiogram obtained in February 2021 revealed ejection fraction 55-60%, mild to moderate aortic regurgitation, mild mitral regurgitation, and mild tricuspid regurgitation Cardiac catheterization history: April 2020 revealing mild coronary artery disease. 30% mid LAD stenosis. Left circumflex with mild luminary irregularities. Mid RCA 30-40% stenosis. Ejection fraction at that time 45% with mild apical hypokinesis, questionable recovering Takotsubo cardiomyopathy. REVIEW OF SYSTEMS: At the time of my exam: CONSTITUTIONAL: Denies fever or chills. HEENT: Denies blurred vision, vision changes, or eye pain. Denies hemoptysis CARDIOVASCULAR: Denies chest pain. Denies orthopnea. Denies PND. Denies palpitations RESPIRATORY: Denies shortness of breath. GASTROINTESTINAL: Denies abdominal pain. Denies nausea or vomiting. HEMATOLOGIC: Denies bleeding disorders. GENITOURINARY: Denies any blood in urine. SKIN: Denies pruitis. Denies rash. PHYSICAL EXAM: VITAL SIGNS: Reviewed. GENERAL: Well-developed in no acute distress. HEENT: Head is normocephalic. Pupils are equal, round. Sclerae anicteric. Mucous membranes of the mouth are moist. Neck supple. No JVD or thyromegaly LUNGS: Respirations even and unlabored. Lungs essentially clear to auscultation bilaterally. HEART: Regular rate and rhythm. S1 and S2 heard. Systolic murmur noted. ABDOMEN: Soft. Nondistended. Nontender. EXTREMITIES: Normal range of motion. No clubbing or cyanosis. Peripheral pulses intact. No lower extremity edema NEUROLOGIC: Awake and alert. Oriented x 3. ASSESSMENT: Chest pain Paroxysmal atrial fibrillation Nonobstructive coronary artery disease per cardiac catheterization, April 2020 History of cardiomyopathy, ejection fraction 45% Hypertension Hyperlipidemia PLAN: Obtain 2D echo to assess cardiac structure and function Resume home cardiac medications Continue Eliquis Continue with medical management If patient has further episodes of chest pain, will consider cardiac cath Lanie scan stress test tomorrow Further recommendations pending patient course Nurse practitioner note has been reviewed by physician. Signing provider agrees with the documented findings, assessment, and plan of care. Past Medical History Past Medical History: Atrial Fibrillation, Coronary Artery Disease (CAD), Cance r, Eye Disorder, GERD/Reflux, GI Bleed, Hearing Disorder / Deafness, Hypertension, Musculoskeletal Disorder, Osteoarthritis (OA), Thyroid Disorder Additional Past Medical History / Comment(s): Peptic ulcer, chronic back pain, laryngeal cancer/tx-approx 20 yrs ago, head injury in 2012, cataract removal left eye. Pt states she has a hole in her left eardrum. 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 SHOULDER Past Surgical History: Bariatric Surgery, Bowel Resection, Cholecystectomy, Heart Catheterization, Heart Catheterization With Stent, Hysterectomy, Joint Rep lacement, Orthopedic Surgery Additional Past Surgical History / Comment(s): 1 stent, Bilateral knee replacement, left shoulder rotator cuff surgery, gastric bypass, D&C w/ cor rective surgery, EGD/colonoscopy, laryngeal tumor removed 30 radiation treatments about 20 years ago, Ganglion Cysts both wrists.PAIN CLINIC INJECTIONS, colostomy 06/2020 w/ reversal in August Past Anesthesia/Blood Transfusion Reactions: No Reported Reaction Date of Last Stent Placement:: 2003 Past Psychological History: Anxiety, Depression, Panic Disorder Smoking Status: Former smoker Past Alcohol Use History: Occasional Past Drug Use History: None Reported - Past Family History Mother Family Medical History: Cancer, Congestive Heart Failure (CHF), Diabetes Mellitus, Hypertension Additional Family Medical History / Comment(s): Mother passed at 93. Father Family Medical History: Myocardial Infarction (SC) Additional Family Medical History / Comment(s): Father of a SC at the age of 39 yrs. Sister(s) Family Medical History: Cancer Brother(s) Family Medical History: Cancer, Myocardial Infarction (SC) Medications and Allergies Home Medications Medication Instructions Recorded Confirmed Type Levothyroxine Sodium [Synthroid] 200 mcg PO DAILY 01/12/19 03/14/21 History LORazepam [Ativan] 0.5 mg PO HS PRN 11/25/20 03/14/21 History Aspirin [Adult Low Dose Aspirin EC] 81 mg PO DAILY 30 Days #30 tab 12/02/20 03/14/21 Rx Ondansetron Odt [Zofran ODT] 4 mg PO Q8HR PRN #10 tab 12/04/20 03/14/21 Rx Apixaban [Eliquis] 5 mg PO BID #60 tab 01/12/21 03/14/21 Rx Calcium Carbonate [Tums] 500 mg PO QID PRN tab 01/12/21 03/14/21 Rx Loperamide [Imodium] 2 mg PO QID PRN #0 cap 01/12/21 03/14/21 Rx Magnesium Oxide [Mag-Ox] 400 mg PO BID #60 tablet 01/12/21 03/14/21 Rx Metoprolol Tartrate [Lopressor] 25 mg PO BID #60 tab 01/12/21 03/14/21 Rx Megestrol Acetate 40 mg PO BID 03/01/21 03/14/21 History hydrOXYzine HCL [Atarax] 10 mg PO HS 03/01/21 03/14/21 History HYDROcodone/APAP 10-325MG [[place] 1 tab PO BID #0 03/06/21 03/14/21 Rx 10-325] Losartan [Cozaar] 50 mg PO DAILY@1800 tab 03/06/21 03/14/21 Rx Nitroglycerin Sl Tabs [Nitrostat] 0.4 mg SUBLINGUAL Q5M PRN tab 03/06/21 03/14/21 Rx Omeprazole [PriLOSEC] 40 mg PO AC-BRKFST #14 cap 03/06/21 03/14/21 Rx Allergies Allergy/AdvReac Type Severity Reaction Status Date / Time latex Allergy Unknown Verified 03/14/21 11:18 vancomycin Allergy Rash/Hives Verified 03/14/21 11:18 Physical Exam Vitals: Vital Signs Temp Pulse Resp BP Pulse Ox 03/14/21 09:55 93 18 167/98 100 03/14/21 09:33 98.6 F 100 18 189/116 99 Intake and Output 03/13/21 03/14/21 03/14/21 22:59 06:59 14:59 Other: Weight 67.585 kg Results 03/15/21 07:10 03/15/21 07:10 Cardiac Enzymes 03/14/21 03/14/21 Range/Units 10:27 10:27 AST 26 (14-36) U/L Troponin I <0.012 (0.000-0.034) ng/mL Coagulation 03/14/21 Range/Units 09:48 PT 12.1 H (9.0-12.0) sec APTT 24.5 (22.0-30.0) sec CBC 03/14/21 Range/Units 09:48 WBC 6.7 (3.8-10.6) k/uL RBC 3.35 L (3.80-5.40) m/uL Hgb 11.5 (11.4-16.0) gm/dL Hct 33.4 L (34.0-46.0) % Plt Count 402 D (150-450) k/uL Comprehensive Metabolic Panel 03/14/21 Range/Units 10:27 Sodium 133 L (137-145) mmol/L Potassium 3.4 L (3.5-5.1) mmol/L Chloride 109 H (98-107) mmol/L Carbon Dioxide 19 L (22-30) mmol/L BUN 6 L (7-17) mg/dL Creatinine 0.37 L (0.52-1.04) mg/dL Glucose 92 (74-99) mg/dL Calcium 7.9 L (8.4-10.2) mg/dL AST 26 (14-36) U/L ALT 13 (4-34) U/L Alkaline Phosphatase 89 (38-126) U/L Total Protein 5.1 L (6.3-8.2) g/dL Albumin 2.2 L (3.5-5.0) g/dL Current Medications Generic Name Dose Route Start Last Admin Trade Name Freq PRN Reason Stop Dose Admin Magnesium Sulfate/Dextrose 1 100 mls @ 100 mls/hr 03/14/21 12:30 03/14/21 12:43 gm/ IV Solution IVPB 03/14/21 14:29 100 mls/hr Q1H ALFREDO Administration Sodium Chloride 1,000 mls @ 75 mls/hr 03/14/21 12:45 03/14/21 12:43 Saline 0.9% IV 75 mls/hr .[id number] ALFREDO Administration Morphine Sulfate 4 mg 03/14/21 13:35 Morphine Sulfate 4 Mg/Ml Syringe IVP Q4HR PRN Pain Naloxone HCl 0.2 mg 03/14/21 13:02 Naloxone 0.4 Mg/Ml 1 Ml Vial IV Q2M PRN Opioid Reversal Intake and Output 03/13/21 03/14/21 03/14/21 22:59 06:59 14:59 Other: Weight 67.585 kg Patient Weight 03/15/21 06:59 Weight 67.585 kg 03/14/21 09:48 03/14/21 10:27
[2021-03-15] MEDS ORDERED: Potassium Replacement Protocol 1 EACH MISC MISCELLANE PRN (12:27)
[2021-03-15] MEDS: POTASSIUM CHLORIDE ER 20 MEQ TAB.ER PO SCH ×2 (12:46→14:02)
[2021-03-15] MEDS: hydrOXYzine HCL 10 MG TAB PO SCH (20:06)
[2021-03-15] MEDS: LOSARTAN 50 MG TAB PO SCH (20:08)
[2021-03-16] MEDS: LORazepam 0.5 MG TAB PO PRN (00:19)
[2021-03-16] MEDS: SODIUM CHLORIDE 0.9% 1,000 ML IV SCH ×2 (05:02→20:14)
[2021-03-16] MEDS: MORPHINE SULFATE 4 MG/ML SYRINGE IVP PRN ×3 (05:03→22:16)
[2021-03-16] MEDS ORDERED: CAFFEINE CITRATE 60 MG/3 ML VIAL IV PRN (06:00)
[2021-03-16] MEDS ORDERED: AMINOPHYLLINE 500 MG/20 ML VIAL IV PRN (06:00)
[2021-03-16] MEDS ORDERED: REGADENOSON 0.4 MG/5 ML SYRINGE IV PRN (07:00)
[2021-03-16] MEDS ORDERED: REGADENOSON 0.4 MG/5 ML SYRINGE IV ONE (09:15)
[2021-03-16 09:33] LABS: African American GFR (CKD) >90 (>60 ml/min/1.73 sqM); Anion Gap 6 mmol/L; Blood Urea Nitrogen 5 mg/dL (7-17); Calcium 7.7 mg/dL (8.4-10.2); Carbon Dioxide 14 mmol/L (22-30); Chloride 115 mmol/L (98-107); Glucose 75 mg/dL (74-99); Non-African American GFR(CKD) >90 (>60 ml/min/1.73 sqM); Sodium 135 mmol/L (137-145)
[2021-03-16 09:36] LABS: Potassium 4.6 mmol/L (3.5-5.1)
[2021-03-16 10:36] LABS: Basophils # (A) 0.1 k/uL (0-0.2); Basophils % (A) 2 %; Eosinophils # (A) 0.3 k/uL (0-0.7); Eosinophils % (A) 6 %; HCT 40.5 % (34.0-46.0); HGB 12.3 gm/dL (11.4-16.0); Hypochromasia Marked; Lymphocytes % (A) 52 %; MCH 34.3 pg (25.0-35.0); MCHC 30.5 g/dL (31.0-37.0); MCV 112.4 fL (80.0-100.0); Macrocytosis Marked; Mean Platelet Volume 7.7; Monocytes # (A) 0.4 k/uL (0-1.0); Monocytes % (A) 7 %; Neutrophils # (A) 1.7 k/uL (1.3-7.7); Neutrophils % (A) 29 %; Platelet Count 344 k/uL (150-450); RDW 15.8 % (11.5-15.5); WBC 5.7 k/uL (3.8-10.6)
[2021-03-16] MEDS: ASPIRIN 81 MG PO SCH (11:01)
[2021-03-16] MEDS: PANTOPRAZOLE 40 MG TABLET PO SCH (11:01)
[2021-03-16] MEDS: HYDROcodone/APAP 10-325MG 1 EACH TAB PO SCH ×2 (11:01→20:11)
[2021-03-16] MEDS: APIXABAN 5 MG TAB PO SCH (11:01)
[2021-03-16] MEDS: LEVOTHYROXINE 100 MCG TAB PO SCH (11:02)
[2021-03-16] MEDS: CHOLECALCIFEROL 25 MCG (1000 IU) TABLET PO SCH (11:02)
[2021-03-16] MEDS: METOPROLOL TARTRATE 25 MG TAB PO SCH ×2 (11:02→20:12)
--- NOTE | 2021-03-16 11:20 | NM ---
EXAMINATION TYPE: NM stress lexiscan cardiolite DATE OF EXAM: 03/16/2021 COMPARISON: NONE HISTORY: chest pain TECHNIQUE: After the intravenous administration of 10.1 mCi Tc 99m Sestamibi - Cardiolite resting SP ECT images acquired 60 minutes post injection. The patient received 0.4mg Lexiscan, 25 mCi Tc 99m Sestamibi - Stress images obtained 55 minutes post injection FINDINGS: Review of stress and rest SPECT images demonstrates large fixed defect involving the cardiac apex wit h a small area reversibility noted. Gated analysis shows normal wall motion with an estimated left ve ntricular ejection fraction of 61 %. IMPRESSION: large fixed defect involving the cardiac apex with a small area reversibility noted.
[2021-03-16] MEDS ORDERED: ALPRAZolam 0.5 MG TAB PO PRN (11:34)
[2021-03-16] MEDS ORDERED: ALPRAZolam 0.25 MG TAB PO PRN (11:34)
[2021-03-16] MEDS ORDERED: NITROGLYCERIN SL TABS 0.4 MG TAB SUBLINGUAL PRN (11:34)
--- NOTE | 2021-03-16 12:00 | P.PN ---
Subjective Progress Note Date: 03/15/21 Principal diagnosis: Chest pain Patient is a 75-year-old female with a known history of paroxysmal atrial fibrillation on anticoagulation with Eliquis, hypertension, GERD, hearing disorder/deafness, osteoarthritis, chronic back pain and history of laryngeal cancer status post treatment approximately 20 years ago, anxiety/depression panic disorder and previous history of smoking presents to ER with the complaints of chest pain. Patient was recently admitted to hospital with chest pain/abdominal pain and work-up has been negative and was evaluated by cardiology.. Patient was discharged from the hospital on 03/06/2021. Diagnosed with NSTEMI. She has been having issues with her bowels for the past 9 months. She had a perforated bowel and resection with colostomy bag placement which then reversal. She does have chronic constipation nausea and vomiting issues. Today while she was in the college watching TV and suddenly developed sharp left retrosternal chest pain associated with nausea and episode of vomiting. Patient felt clamminess over the face. Denied any diaphoresis. She felt dizzy and lightheaded. Symptoms lasted for about 10 minutes and she took sublingual nitroglycerin tablet which seemed to relieve her symptoms. Patient presented to ER. EKG in the ER showed T inversions in the lateral leads. Chest x-ray showed no acute cardiopulmonary process. Chronic changes without acute process. No significant change from prior. Laboratory showed troponin x2 -. WBC 6.7 hemoglobin 11.5 platelets 402 INR 1.2 Sodium 133 potassium 3.4 chloride 109 bicarb is 19 BUN 6 creatinine 0.37 magnesium 1.4 troponin x2 -, proBNP 31501. 03/15/2021 Patient is currently resting in the bed. Awake alert and oriented 3. No complaints of chest pain. Troponin 3 negative. Diarrhea and has seen the patient and is planning for stress test tomorrow. Laboratory data showed WBC 5.6 hemoglobin 10.5 and platelets 288 Sodium 132 potassium 3.4 chloride 111, bicarb 20 BUN 4 and creatinine 0.45 calcium 7.5 Current medications reviewed. Objective - Vital Signs Vital signs: Vital Signs Temp 98.2 F 03/15/21 19:45 Pulse 69 03/15/21 19:45 Resp 17 03/15/21 19:45 BP 136/74 03/15/21 19:45 Pulse Ox 100 03/15/21 19:45 Intake & Output 03/15/21 03/15/21 03/16/21 06:59 18:59 06:59 Intake Total 690 240 Balance 690 240 Weight 68.5 kg 68.5 kg Intake: Intake, IV Titration 450 Amount Sodium Chloride 0.9% 1, 450 000 ml @ 75 mls/hr IV . [id number] [facility] Rx#:[id number] Oral 240 240 Other: Voiding Method Toilet Toilet # Voids 2 2 - Exam PHYSICAL EXAMINATION: Patient is lying in the bed comfortably, no acute distress, awake alert and oriented.. HEENT: Normocephalic. Neck is supple. Pupils reactive. Nostrils clear. Oral cavity is moist. Neck reveals no JVD, carotid bruits, or thyromegaly. CHEST EXAMINATION: Trachea is central. Symmetrical expansion. Lung herrera clear to auscultation and percussion. CARDIAC: Normal S1, S2 with no gallops. No murmurs ABDOMEN: Soft. Bowel sounds normal. No organomegaly. No abdominal bruits. Extremities: reveal no edema. No clubbing or cyanosis Neurologically awake, alert, oriented x3 with well-coordinated movements. No focal deficits noted Skin: No rash or skin lesions. Psychiatric: Cooperative. Nonsuicidal Musculoskeletal: No joint swelling or deformity. Normal range of motion. - Labs CBC & Chem 7: 03/16/21 08:37 03/16/21 08:37 Labs: Abnormal Lab Results - Last 24 Hours (Table) 03/15/21 03/15/21 Range/Units 07:10 07:10 RBC 3.10 L (3.80-5.40) m/uL Hgb 10.5 L (11.4-16.0) gm/dL Hct 33.3 L (34.0-46.0) % MCV 107.6 H D (80.0-100.0) fL Macrocytosis Marked A Sodium 132 L (137-145) mmol/L Potassium 3.4 L (3.5-5.1) mmol/L Chloride 111 H (98-107) mmol/L Carbon Dioxide 20 L (22-30) mmol/L BUN 4 L (7-17) mg/dL Creatinine 0.45 L (0.52-1.04) mg/dL Calcium 7.5 L (8.4-10.2) mg/dL Assessment and Plan Assessment: Chest pain/angina. Ruled out ACS. Elevated BNP without other evidence of CHF Hypomagnesemia. Replaced. Recent admission with elevated troponin level/NSTEMI Diffuse T wave inversions and narrow QRS. Recently evaluated by EP. Paroxysmal atrial fibrillation on anticoagulation with Eliquis Coronary artery disease history of stent placement History of iron deficiency anemia Vitamin D deficiency Hypovolemic hyponatremia History of GI bleed Hypertension Osteoarthritis Hypothyroidism Hearing disorder/deafness Anxiety/depression and panic disorder Previous history of smoking DVT prophylaxis patient is already on Eliquis Plan: Will be continued on Telemetry monitoring. Serial EKG and troponin x3 -. Cardiology is planning for stress test tomorrow. Follow-up electrolytes panel. Patient will be continued on Eliquis and aspirin, metoprolol and losartan. Symptomatic management for nausea and vomiting. Continue with home medications and follow-up closely. Time with Patient: Greater than 30
--- NOTE | 2021-03-16 12:25 | P.PN ---
Subjective Progress Note Date: 03/16/21 HISTORY OF PRESENT ILLNESS: This is a 75-year-old female with a past medical history significant for nonobstructive CAD, atrial fibrillation, hypertension, hyperlipidemia, nonischemic cardiomyopathy, and diverticulitis with history of colectomy and colostomy placement and subsequent reversal of colostomy in October 2020 Patient has not been following in the office with a warrant server. She was last seen in the office in 2012. We have been asked to see the patient in consultation for chest pain. Patient examined at the bedside. Patient states yesterday she developed chest discomfort after using the bathroom. She states "it felt like someone was grabbing my heart". She reports feeling sweating and threw up three times. She denies radiation of the pain. She reports she took a Nitro which relieved her pain at home. She came to the hospital for further evaluation. She also reports another episode of chest pain this morning around 5am. She received nitro again with relief of the pain. She states the pain was not as severe as yesterday. At the time of my examination, she denies chest pain or pressure. Denies SOB. Patient reports that she had a stent placed in her heart a long time ago, however her cardiac cath from 2020 does not mention any visualized stents. EKG reveals atrial fibrillation with controlled ventricular rate. T wave inversions in precordial leads which has been noted on previous EKGs. Chest xray chronic changes without acute pulmonary process. No significant change from prior. Laboratory data: WBC 6.7. Hemoglobin 11.5. Platelet count 402. Sodium 133. Potassium 3.4. BUN 6. Creatinine 0.37. Magnesium 1.4. Troponin negative 1. ProBNP 12,700. Current home cardiac medications include metoprolol titrate 25 mg twice a day, losartan 50 mg daily, aspirin 81 mg daily, and Eliquis 5mg twice a day Most recent echocardiogram obtained in February 2021 revealed ejection fraction 55-60%, mild to moderate aortic regurgitation, mild mitral regurgitation, and mild tricuspid regurgitation Cardiac catheterization history: April 2020 revealing mild coronary artery disease. 30% mid LAD stenosis. Left circumflex with mild luminary irregularities. Mid RCA 30-40% stenosis. Ejection fraction at that time 45% with mild apical hypokinesis, questionable recovering Takotsubo cardiomyopathy. Addendum entered and electronically signed by Donal Gramajo DO 03/15/21 20:54: Echo shows worsened EF 35-40% however mainly apical hypokineis with sparing of the base concerning for Takotsubo's cardiomyopathy. Given recent relatively normal cath with will check a Lexiscan stress test to evaluate for any ischemia especially in the LAD territory. 03/16/2021 Patient examined this morning at the bedside. She currently denies chest pain or pressure. Denies shortness of breath. The patient does report having another episode of chest pain yesterday evening when walking to the bathroom. Patient underwent Lanie scan stress test today revealing large fixed defect involving the cardiac apex with small area of reversibility noted. PHYSICAL EXAM: VITAL SIGNS: Reviewed. GENERAL: Well-developed in no acute distress. HEENT: Head is normocephalic. Pupils are equal, round. Sclerae anicteric. Mucous membranes of the mouth are moist. Neck supple. No JVD or thyromegaly LUNGS: Respirations even and unlabored. Lungs essentially clear to auscultation bilaterally. HEART: Regular rate and rhythm. S1 and S2 heard. Systolic murmur noted. EXTREMITIES: Normal range of motion. No clubbing or cyanosis. Peripheral pulses intact. No lower extremity edema ASSESSMENT: Chest pain Paroxysmal atrial fibrillation Nonobstructive coronary artery disease per cardiac catheterization, April 2020 History of cardiomyopathy, ejection fraction 45% in the past, increased to 55- 60%, now decreased back to 35-40% Hypertension Hyperlipidemia PLAN: Continue current cardiac medications Hold Eliquis tonight and tomorrow morning Patient's blood pressures have been labile with a systolic blood pressure reading yesterday of 90 and a recent reading today of 180. We will continue to monitor blood pressure trends and make adjustments as necessary. Nothing by mouth at midnight Patient to undergo cardiac catheterization tomorrow with Dr. Rojas Further recommendations pending patient course Nurse practitioner note has been reviewed by physician. Signing provider agrees with the documented findings, assessment, and plan of care. Objective - Vital Signs Vital signs: Vital Signs Temp 98.1 F 03/16/21 08:38 Pulse 81 03/16/21 11:45 Resp 17 03/16/21 11:45 BP 180/76 03/16/21 11:45 Pulse Ox 98 03/16/21 11:45 Intake & Output 03/15/21 03/16/21 03/16/21 18:59 06:59 18:59 Intake Total 240 0 Balance 240 0 Weight 68.5 kg 68.5 kg Intake: Oral 240 0 Other: Voiding Method Toilet Toilet Toilet # Voids 2 2 0 # Bowel Movements 0 - Labs CBC & Chem 7: 03/16/21 08:37 03/16/21 08:37 Labs: Abnormal Lab Results - Last 24 Hours (Table) 03/16/21 03/16/21 Range/Units 08:37 08:37 RBC 3.60 L (3.80-5.40) m/uL MCV 112.4 H (80.0-100.0) fL MCHC 30.5 L (31.0-37.0) g/dL RDW 15.8 H (11.5-15.5) % Macrocytosis Marked A Sodium 135 L (137-145) mmol/L Chloride 115 H (98-107) mmol/L Carbon Dioxide 14 L (22-30) mmol/L BUN 5 L (7-17) mg/dL Creatinine 0.46 L (0.52-1.04) mg/dL Calcium 7.7 L (8.4-10.2) mg/dL
[2021-03-16] MEDS: LOSARTAN 50 MG TAB PO SCH (17:44)
--- NOTE | 2021-03-16 19:29 | P.STRESS ---
- Stress Test Note Stress Test Results/Findings: Exam Performed: NM stress lexiscan cardiolite Exam Date: 03/16/21 Reason for Exam: Chest Pain Height: 5 ft 3 in Weight: 68.5 kg Protocol: Lexiscan Stage: na Duration of Exercise: na Resting Heart Rate: 69 Resting Blood Pressure: 160/75 Maximum Achieved Heart Rate: 86 Maximum Achieved Blood Pressure: 164/74 85% PMHR: 123 100% PMHR: 145 METS: na Technologist Comment: Stress Test Results/Findings: Baseline heart rate 69 beats a minute, Baseline blood pressure 160 was 75 mmHg Baseline 12-lead EKG shows sinus rhythm with deep T-wave inversions V2-V6, inferior leads and lead 1 Patient complained of chest discomfort during Lexiscan infusion No change in heart rate blood pressure No new ECG changes during Lexiscan infusion Nuclear portion he reported separately
[2021-03-16] MEDS: hydrOXYzine HCL 10 MG TAB PO SCH (20:12)
[2021-03-16] MEDS: SODIUM CHLORIDE 0.9% 1,000 ML in EMPTY BAG 1 BAG IV SCH (20:14)
--- NOTE | 2021-03-16 23:57 | P.PN ---
Subjective Progress Note Date: 03/16/21 Principal diagnosis: Chest pain Patient is a 75-year-old female with a known history of paroxysmal atrial fibrillation on anticoagulation with Eliquis, hypertension, GERD, hearing disorder/deafness, osteoarthritis, chronic back pain and history of laryngeal cancer status post treatment approximately 20 years ago, anxiety/depression panic disorder and previous history of smoking presents to ER with the complaints of chest pain. Patient was recently admitted to hospital with chest pain/abdominal pain and work-up has been negative and was evaluated by cardiology.. Patient was discharged from the hospital on 03/06/2021. Diagnosed with NSTEMI. She has been having issues with her bowels for the past 9 months. She had a perforated bowel and resection with colostomy bag placement which then reversal. She does have chronic constipation nausea and vomiting issues. Today while she was in the college watching TV and suddenly developed sharp left retrosternal chest pain associated with nausea and episode of vomiting. Patient felt clamminess over the face. Denied any diaphoresis. She felt dizzy and lightheaded. Symptoms lasted for about 10 minutes and she took sublingual nitroglycerin tablet which seemed to relieve her symptoms. Patient presented to ER. EKG in the ER showed T inversions in the lateral leads. Chest x-ray showed no acute cardiopulmonary process. Chronic changes without acute process. No significant change from prior. Laboratory showed troponin x2 -. WBC 6.7 hemoglobin 11.5 platelets 402 INR 1.2 Sodium 133 potassium 3.4 chloride 109 bicarb is 19 BUN 6 creatinine 0.37 magnesium 1.4 troponin x2 -, proBNP 47384. 03/15/2021 Patient is currently resting in the bed. Awake alert and oriented 3. No complaints of chest pain. Troponin 3 negative. Diarrhea and has seen the patient and is planning for stress test tomorrow. Laboratory data showed WBC 5.6 hemoglobin 10.5 and platelets 288 Sodium 132 potassium 3.4 chloride 111, bicarb 20 BUN 4 and creatinine 0.45 calcium 7.5 03/16/2021 Patient is currently resting in the bed. Denies any complaints of chest pain today. Patient underwent stress test Lexiscan today which showed large fixed defect involving the cardiac apex with small area of reversibility noted. Cardiology is planning for angiogram tomorrow. Laboratory data showed WBC 5.7 hemoglobin 12.3 platelets 344 sodium 135 potassium 4.6 chloride 115 bicarb is 14 BUN 5 and creatinine 0.46 Patient will be nothing by mouth and Carolyne will be on hold tonight for cardiac catheterization tomorrow. Current medications reviewed. Objective - Vital Signs Vital signs: Vital Signs Temp 98.1 F 03/16/21 08:38 Pulse 81 03/16/21 14:00 Resp 17 03/16/21 14:00 BP 180/76 03/16/21 11:45 Pulse Ox 98 03/16/21 11:45 Intake & Output 03/15/21 03/16/21 03/16/21 18:59 06:59 18:59 Intake Total 240 118 Balance 240 118 Weight 68.5 kg 68.5 kg Intake: Oral 240 118 Other: Voiding Method Toilet Toilet Toilet # Voids 2 2 3 # Bowel Movements 0 - Exam PHYSICAL EXAMINATION: Patient is lying in the bed comfortably, no acute distress, awake alert and oriented.. HEENT: Normocephalic. Neck is supple. Pupils reactive. Nostrils clear. Oral cavity is moist. Neck reveals no JVD, carotid bruits, or thyromegaly. CHEST EXAMINATION: Trachea is central. Symmetrical expansion. Lung herrera clear to auscultation and percussion. CARDIAC: Normal S1, S2 with no gallops. No murmurs ABDOMEN: Soft. Bowel sounds normal. No organomegaly. No abdominal bruits. Extremities: reveal no edema. No clubbing or cyanosis Neurologically awake, alert, oriented x3 with well-coordinated movements. No focal deficits noted Skin: No rash or skin lesions. Psychiatric: Cooperative. Nonsuicidal Musculoskeletal: No joint swelling or deformity. Normal range of motion. - Labs CBC & Chem 7: 03/16/21 08:37 03/16/21 08:37 Labs: Abnormal Lab Results - Last 24 Hours (Table) 03/16/21 03/16/21 Range/Units 08:37 08:37 RBC 3.60 L (3.80-5.40) m/uL MCV 112.4 H (80.0-100.0) fL MCHC 30.5 L (31.0-37.0) g/dL RDW 15.8 H (11.5-15.5) % Macrocytosis Marked A Sodium 135 L (137-145) mmol/L Chloride 115 H (98-107) mmol/L Carbon Dioxide 14 L (22-30) mmol/L BUN 5 L (7-17) mg/dL Creatinine 0.46 L (0.52-1.04) mg/dL Calcium 7.7 L (8.4-10.2) mg/dL Assessment and Plan Assessment: Abnormal stress test with large fixed defect and reversibility noted.. Cardiac catheterization tomorrow. Chest pain/angina. Ruled out ACS. Elevated BNP without other evidence of CHF Hypomagnesemia. Replaced. Recent admission with elevated troponin level/NSTEMI Diffuse T wave inversions and narrow QRS. Recently evaluated by EP. Paroxysmal atrial fibrillation on anticoagulation with Eliquis Coronary artery disease history of stent placement History of iron deficiency anemia Vitamin D deficiency Hypovolemic hyponatremia History of GI bleed Hypertension Osteoarthritis Hypothyroidism Hearing disorder/deafness Anxiety/depression and panic disorder Previous history of smoking DVT prophylaxis patient is already on Eliquis Plan: Will be continued on Telemetry monitoring. Serial EKG and troponin x3 -. Status post abnormal stress test. Cardiac catheterization tomorrow.. Follow-up electrolytes panel. Patient will be continued on Eliquis and aspirin, metoprolol and losartan. Symptomatic management for nausea and vomiting. Continue with home medications and follow-up closely.
[2021-03-17] MEDS: ASPIRIN 81 MG PO SCH (03:04)
[2021-03-17] MEDS: PANTOPRAZOLE 40 MG TABLET PO SCH (06:05)
[2021-03-17] MEDS: CHOLECALCIFEROL 25 MCG (1000 IU) TABLET PO SCH (06:05)
[2021-03-17] MEDS: LEVOTHYROXINE 100 MCG TAB PO SCH (06:05)
[2021-03-17] MEDS: METOPROLOL TARTRATE 25 MG TAB PO SCH ×2 (06:05→20:12)
[2021-03-17] MEDS ORDERED: ASPIRIN 325 MG TAB PO ONE (07:00)
[2021-03-17] MEDS ORDERED: HEPARIN SODIUM,PORCINE 2,500 UNIT in SODIUM CHLORIDE 0.9% 250 ML IRRIGATION PRN (07:00)
[2021-03-17] MEDS ORDERED: HEPARIN SODIUM,PORCINE 10,000 UNIT in SODIUM CHLORIDE 0.9% 1,000 ML IRRIGATION PRN (07:00)
[2021-03-17] MEDS ORDERED: ATORVASTATIN 80 MG TAB PO ONE (07:00)
[2021-03-17 08:40] LABS: Basophils # (A) 0.1 k/uL (0-0.2); Basophils % (A) 1 %; Eosinophils # (A) 0.4 k/uL (0-0.7); Eosinophils % (A) 7 %; HCT 38.5 % (34.0-46.0); Hypochromasia Slight; Lymphocytes # (A) 2.3 k/uL (1.0-4.8); Lymphocytes % (A) 45 %; MCH 34.3 pg (25.0-35.0); MCHC 31.2 g/dL (31.0-37.0); MCV 109.8 fL (80.0-100.0); Macrocytosis Marked; Monocytes # (A) 0.3 k/uL (0-1.0); Monocytes % (A) 6 %; Neutrophils % (A) 38 %; Platelet Count 402 k/uL (150-450); RBC 3.51 m/uL (3.80-5.40); RDW 15.6 % (11.5-15.5); WBC 5.2 k/uL (3.8-10.6)
[2021-03-17] MEDS ORDERED: VERAPAMIL 2.5 MG/ML 2 ML AMP ONE (08:52)
[2021-03-17] MEDS ORDERED: HEPARIN SODIUM 1,000 UN/ML (10ML VL) ONE (10:05)
[2021-03-17] MEDS ORDERED: IV FLUID CONTINUATION 600 ML IV ONE (10:08)
[2021-03-17] MEDS ORDERED: MIDAZOLAM 2 MG/2 ML VIAL IV ONE (10:08)
[2021-03-17] MEDS ORDERED: LIDOCAINE 2% (PF) 20 MG/ML 5 ML VIAL SQ ONE (10:10)
[2021-03-17] MEDS ORDERED: HYDROmorphone 0.5 MG/0.5 ML SYRINGE IVP ONE (10:12)
[2021-03-17] MEDS ORDERED: VERAPAMIL SYRINGE (5 MG/10 ML) INTRAARTER ONE (10:15)
[2021-03-17] MEDS ORDERED: IOPAMIDOL-370 125ML BTL INJ ONE (10:21)
[2021-03-17 10:56] LABS: African American GFR (CKD) >90 (>60 ml/min/1.73 sqM); Anion Gap 6 mmol/L; Blood Urea Nitrogen 5 mg/dL (7-17); Carbon Dioxide 18 mmol/L (22-30); Chloride 108 mmol/L (98-107); Glucose 69 mg/dL (74-99); Non-African American GFR(CKD) >90 (>60 ml/min/1.73 sqM); Sodium 132 mmol/L (137-145)
--- NOTE | 2021-03-17 10:56 | CC ---
CARDIAC CATHETERIZATION REPORT DATE OF SERVICE: March 17, 2021. PERFORMING PHYSICIAN: Durga Rojas MD. PROCEDURE PERFORMED: 1. Selective right and left coronary angiogram. 2. Left heart catheterization. INDICATION: This is a 75-year-old female patient with hypertension and dyslipidemia who was admitted to the hospital with chest discomfort and underwent an echo which revealed cardiomyopathy with EF around 35% and also myocardial perfusion imaging stress test and that revealed reversibility. In light of that, cardiac catheterization was advised. APPROACH: Right radial artery. COMPLICATION: None. LEVEL OF SEDATION: Moderate with sedation length of 15 minutes. PROCEDURE DESCRIPTION: After obtaining an informed consent, the patient was brought to the cardiac laborer [facility]. The right radial artery was cannulated using micropuncture technique, the micropuncture wire passed easily. Then I placed a 6-Polish sheath in the right radial artery. Selective right and left coronary angiogram performed using JR4 and JL3.5 catheters. Left heart catheterization was performed using 5-Polish pigtail catheter. The procedure was completed without any complication. SELECTIVE CORONARY ANGIOGRAM: 1. The right coronary artery is a large-caliber vessel. It is a dominant vessel. The RCA is calcified with mild disease in the proximal and distal portion. The RCA distally bifurcates into PDA and PLV branches, both appeared to have mild diffuse disease only. 2. The left main is angiographically normal. It bifurcates into LCX and LAD. 3. The LCX is a large caliber vessel. It is a nondominant vessel and appeared to have mild disease only. It gives rise into a medium size OM branch which bifurcates into 2 subbranches and the circ appeared to have mild disease only. 4. The LAD: The proximal LAD appeared to have mild disease only. It gives rise into first and second diagonal branches, the ostial of the first diag has a lesion appeared to be in the range of 50% and the second diagonal appeared to be normal. The third diagonal appeared to be normal as well. The LAD in the mid and distal portion appeared to have mild disease only. HEMODYNAMICS: The LVEDP was about 10 to 12 mmHg without significant gradient across the valve. CONCLUSION: 1. Calcified right and left coronary system. 2. Mild nonobstructive coronary artery disease. 3. Normal left-sided filling pressure. POSTPROCEDURE MANAGEMENT: 1. Maximize medical treatment for the cardiomyopathy. 2. as an outpatient. 3. Follow up with the patient. MMODL / IJN: [id number] /
[2021-03-17 11:08] LABS: Potassium 5.3 mmol/L (3.5-5.1)
--- NOTE | 2021-03-17 12:13 | P.PN ---
Subjective From records Patient is a 75-year-old female with a known history of paroxysmal atrial fibrillation on anticoagulation with Eliquis, hypertension, GERD, hearing disorder/deafness, osteoarthritis, chronic back pain and history of laryngeal cancer status post treatment approximately 20 years ago, anxiety/depression panic disorder and previous history of smoking presents to ER with the complaints of chest pain. Subjective: 03/17/2021 Patient is a pleasant 75 years old female with multiple medical problems including atrial fibrillation on Eliquis and history of perforated bowel status post resection with colostomy which is reversed later on. She had her surgery on June earlier this year and since then she has been having abdominal pain, abdulkadir león this morning she had abdominal pain but it's resolved within 1-2 hours when I saw her. No nausea vomiting. No diarrhea. However patient presents with chest pain which is improved now. 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 Because of which she underwent cardiac cath today showing nonobstructive mild coronary artery disease with medical management is recommended for now. Patient currently on aspirin 81 mg which is on medication as well as Eliquis 5 mg. Also she is receiving normal saline at 75 mL/h Objective - Vital Signs Vital signs: Vital Signs Temp 97.6 F 03/17/21 08:15 Pulse 59 L 03/17/21 08:15 Resp 18 03/17/21 08:15 BP 164/68 03/17/21 08:15 Pulse Ox 100 03/17/21 08:15 Intake & Output 03/16/21 03/17/21 03/17/21 18:59 06:59 18:59 Intake Total 478 200 Balance 478 200 Weight 68.5 kg 70.4 kg Intake: IV 200 Oral 478 Other: Voiding Method Toilet Toilet Toilet # Voids 3 1 # Bowel Movements 0 - Exam GENERAL: The patient is alert and oriented x3, not in any acute distress. Well developed, well nourished. HEENT: Pupils are round and equally reacting to light. EOMI. No scleral icterus. No conjunctival pallor. Normocephalic, atraumatic. No pharyngeal erythema. No thyromegaly. CARDIOVASCULAR: S1 and S2 present. No murmurs, rubs, or gallops. PULMONARY: Chest is clear to auscultation, no wheezing or crackles. ABDOMEN: Soft, nontender, nondistended, normoactive bowel sounds. No palpable organomegaly. MUSCULOSKELETAL: No joint swelling or deformity. EXTREMITIES: No cyanosis, clubbing, or pedal edema. NEUROLOGICAL: Gross neurological examination did not reveal any focal deficits. SKIN: No rashes. no petechiae. - Labs CBC & Chem 7: 03/17/21 08:14 03/17/21 08:14 Labs: Abnormal Lab Results - Last 24 Hours (Table) 03/17/21 03/17/21 Range/Units 08:14 08:14 RBC 3.51 L (3.80-5.40) m/uL MCV 109.8 H (80.0-100.0) fL RDW 15.6 H (11.5-15.5) % Macrocytosis Marked A Sodium 132 L (137-145) mmol/L Potassium 5.3 H (3.5-5.1) mmol/L Chloride 108 H (98-107) mmol/L Carbon Dioxide 18 L (22-30) mmol/L BUN 5 L (7-17) mg/dL Creatinine 0.45 L (0.52-1.04) mg/dL Glucose 69 L (74-99) mg/dL Calcium 8.0 L (8.4-10.2) mg/dL Assessment and Plan Assessment: Chest pain/angina. Resolved. 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 Replaced. Recent admission with elevated troponin level/NSTEMI Diffuse T wave inversions and narrow QRS. Recently evaluated by EP. Paroxysmal atrial fibrillation on anticoagulation with Eliquis Coronary artery disease history of stent placement History of iron deficiency anemia Vitamin D deficiency Hypovolemic hyponatremia History of GI bleed Hypertension Osteoarthritis Hypothyroidism Hearing disorder/deafness Anxiety/depression and panic disorder Previous history of smoking Plan: This is a pleasant 75 years old female who presents with chest pain and cardiomyopathy Cardiac cath was negative [employer] recommended to continue with conservative management Cardiology Team on the case Continue on aspirin and Eliquis. Labs and medication were reviewed.. Continue same treatment. Continue with symptomatic treatment. Resume home medication. Monitor lytes and vitals. DVT and GI prophylaxis. Further recommendationsas per clinical course of the patient DVT prophylaxis: Eliquis GI Prophylaxis: Ppi We will discharge the patient once cleared by medical support specialist
[2021-03-17] MEDS: HYDROcodone/APAP 10-325MG 1 EACH TAB PO SCH ×2 (12:54→20:11)
[2021-03-17] MEDS: LOSARTAN 50 MG TAB PO SCH (17:04)
[2021-03-17] MEDS: MORPHINE SULFATE 4 MG/ML SYRINGE IVP PRN (18:28)
[2021-03-17] MEDS: hydrOXYzine HCL 10 MG TAB PO SCH (20:12)
[2021-03-17] MEDS: APIXABAN 5 MG TAB PO SCH (20:12)
[2021-03-17] MEDS: SODIUM CHLORIDE 0.9% 1,000 ML in EMPTY BAG 1 BAG IV SCH (22:53)
[2021-03-17] MEDS: SODIUM CHLORIDE 0.9% 1,000 ML IV SCH (22:54)
[2021-03-18] MEDS: MORPHINE SULFATE 4 MG/ML SYRINGE IVP PRN (00:25)
[2021-03-18] MEDS: SODIUM CHLORIDE 0.9% 1,000 ML in EMPTY BAG 1 BAG IV SCH ×2 (06:29→20:20)
[2021-03-18] MEDS: LEVOTHYROXINE 100 MCG TAB PO SCH (06:30)
[2021-03-18] MEDS: PANTOPRAZOLE 40 MG TABLET PO SCH (06:30)
--- NOTE | 2021-03-18 08:11 | P.PN ---
Subjective Progress Note Date: 03/18/21 Principal diagnosis: Cardiomyopathy The patient is a 75-year-old female patient was admitted to the hospital with a chest discomfort beach she underwent an echocardiogram which revealed cardiomyopathy which seems to be new diagnosis to the patient. She underwent a heart catheterization and that revealed mild nonobstructive coronary artery disease. The heart catheterization was performed from right radial approach. She was seen this morning. She has no symptoms of chest pain or shortness of breath at this point. She is experiencing right hand discomfort and the right h and is a slightly cooler than the left hand. She has right radial pulse but is quite diminished and she might had some spasm in the right radial artery. Otherwise hemodynamically she is stable. Her potassium is a slightly elevated. Objective - Vital Signs Vital signs: Vital Signs Temp 98.5 F 03/17/21 20:10 Pulse 71 03/18/21 04:15 Resp 17 03/18/21 04:15 BP 125/72 03/18/21 04:15 Pulse Ox 98 03/18/21 04:15 Intake & Output 03/17/21 03/18/21 03/18/21 18:59 06:59 18:59 Intake Total 1158 Balance 1158 Weight 74.5 kg Intake: IV 200 Intake, IV Titration 238 Amount Sodium Chloride 0.9% 1, 238 000 ml In Empty Bag 1 bag @ 1 ML/KG/HR 68.5 mls/hr IV .[id number] [facility] Rx#: [id number] Oral 720 Other: Voiding Method Toilet Toilet # Voids 1 4 # Bowel Movements 1 - Constitutional General appearance: Present: no acute distress - Respiratory Respiratory: bilateral: CTA - Cardiovascular Rhythm: regular Heart sounds: normal: S1, S2 - Labs CBC & Chem 7: 03/17/21 08:14 03/17/21 08:14 Labs: Abnormal Lab Results - Last 24 Hours (Table) 03/17/21 03/17/21 Range/Units 08:14 08:14 RBC 3.51 L (3.80-5.40) m/uL MCV 109.8 H (80.0-100.0) fL RDW 15.6 H (11.5-15.5) % Macrocytosis Marked A Sodium 132 L (137-145) mmol/L Potassium 5.3 H (3.5-5.1) mmol/L Chloride 108 H (98-107) mmol/L Carbon Dioxide 18 L (22-30) mmol/L BUN 5 L (7-17) mg/dL Creatinine 0.45 L (0.52-1.04) mg/dL Glucose 69 L (74-99) mg/dL Calcium 8.0 L (8.4-10.2) mg/dL Assessment and Plan Assessment: Assessment #1 chest discomfort which has resolved #2 cardiomyopathy nonischemic #3 possible right radial spasm #4 multiple comorbid conditions you Plan #1 the patient is hemodynamically stable #2 possible discharge in the next 12-24 hours
[2021-03-18] MEDS: APIXABAN 5 MG TAB PO SCH ×2 (09:05→20:25)
[2021-03-18] MEDS: ASPIRIN 81 MG PO SCH (09:05)
[2021-03-18] MEDS: METOPROLOL TARTRATE 25 MG TAB PO SCH ×2 (09:05→20:24)
[2021-03-18] MEDS: HYDROcodone/APAP 10-325MG 1 EACH TAB PO SCH (09:05)
[2021-03-18] MEDS: CHOLECALCIFEROL 25 MCG (1000 IU) TABLET PO SCH (09:05)
[2021-03-18] MEDS ORDERED: IOPAMIDOL CONTRAST (ORAL USE) VIAL PO PRN (12:11)
--- NOTE | 2021-03-18 12:11 | P.GSCN ---
History of Present Illness Consult date: 03/18/21 Reason for Consult: Abdominal pain History of present illness: 75-year-old female known to our service. Patient with history of colostomy reve rsal this summer after previous colon perforation from diverticulitis. Patient has had chronic pain lower abdomen since that time. There are times when the pain is better however it has not gone away at all since it started. She apparently was possibly being discharged today when was asked about her pain. Because of the persistent pain we were consulted to see the patient. She has had no abdominal imaging. She was admitted for chest pain and has had a cardiac workup. Tolerating diet with some early satiety. Appetite somewhat diminished. She is having normal bowel function however. Review of Systems The patient denies any acute changes in vision or hearing, no dysphagia or odynophagia, no shortness of breath, no dysuria or hematuria, no headache, no runny nose, no rectal bleeding or melena, no unexplained weight loss Past Medical History Past Medical History: Atrial Fibrillation, Coronary Artery Disease (CAD), Cancer, Eye Disorder, GERD/Reflux, GI Bleed, Hearing Disorder / Deafness, Hypertension, Musculoskeletal Disorder, Osteoarthritis (OA), Thyroid Disorder Additional Past Medical History / Comment(s): Peptic ulcer, chronic back pain, laryngeal cancer/tx-approx 20 yrs ago, head injury in 2012, cataract removal left eye. Pt states she has a hole in her left eardrum. 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 Past Surgical History: Bariatric Surgery, Bowel Resection, Cholecystectomy, Heart Catheterization, Heart Catheterization With Stent, Hysterectomy, Joint Replacement, Orthopedic Surgery Additional Past Surgical History / Comment(s): 1 stent, Bilateral knee replacement, left shoulder rotator cuff surgery, gastric bypass, D&C w/ corrective surgery, EGD/colonoscopy, laryngeal tumor removed 30 radiation treatments about 20 years ago, Ganglion Cysts both wrists.PAIN CLINIC INJECTIONS, colostomy 06/2020 w/ reversal in August Past Anesthesia/Blood Transfusion Reactions: No Reported Reaction Date of Last Stent Placement:: 2003 Past Psychological History: Anxiety, Depression, Panic Disorder Smoking Status: Former smoker Past Alcohol Use History: Occasional Past Drug Use History: None Reported - Past Family History Mother Family Medical History: Cancer, Congestive Heart Failure (CHF), Diabetes Mellitus, Hypertension Additional Family Medical History / Comment(s): Mother passed at 93. Father Family Medical History: Myocardial Infarction (SC) Additional Family Medical History / Comment(s): Father of a SC at the age of 39 yrs. Sister(s) Family Medical History: Cancer Brother(s) Family Medical History: Cancer, Myocardial Infarction (SC) Medications and Allergies Home Medications Medication Instructions Recorded Confirmed Type Levothyroxine Sodium [Synthroid] 200 mcg PO DAILY 01/12/19 03/14/21 History LORazepam [Ativan] 0.5 mg PO HS PRN 11/25/20 03/14/21 History Aspirin [Adult Low Dose Aspirin EC] 81 mg PO DAILY 30 Days #30 tab 12/02/20 03/14/21 Rx Ondansetron Odt [Zofran ODT] 4 mg PO Q8HR PRN #10 tab 12/04/20 03/14/21 Rx Apixaban [Eliquis] 5 mg PO BID #60 tab 01/12/21 03/14/21 Rx Calcium Carbonate [Tums] 500 mg PO QID PRN tab 01/12/21 03/14/21 Rx Loperamide [Imodium] 2 mg PO QID PRN #0 cap 01/12/21 03/14/21 Rx Magnesium Oxide [Mag-Ox] 400 mg PO BID #60 tablet 01/12/21 03/14/21 Rx Metoprolol Tartrate [Lopressor] 25 mg PO BID #60 tab 01/12/21 03/14/21 Rx Megestrol Acetate 40 mg PO BID 03/01/21 03/14/21 History hydrOXYzine HCL [Atarax] 10 mg PO HS 03/01/21 03/14/21 History HYDROcodone/APAP 10-325MG [Albers 1 tab PO BID #0 03/06/21 03/14/21 Rx 10-325] Losartan [Cozaar] 50 mg PO DAILY@1800 tab 03/06/21 03/14/21 Rx Nitroglycerin Sl Tabs [Nitrostat] 0.4 mg SUBLINGUAL Q5M PRN tab 03/06/21 03/14/21 Rx Omeprazole [PriLOSEC] 40 mg PO AC-BRKFST #14 cap 03/06/21 03/14/21 Rx Allergies Allergy/AdvReac Type Severity Reaction Status Date / Time latex Allergy Unknown Verified 03/14/21 11:18 vancomycin Allergy Rash/Hives Verified 03/14/21 11:18 Surgical - Exam Vital Signs Temp Pulse Resp BP Pulse Ox 98.6 F 100 18 189/116 99 03/14/21 09:33 03/14/21 09:33 03/14/21 09:33 03/14/21 09:33 03/14/21 09:33 Physical exam: General: Well-developed, well-nourished HEENT: Normocephalic, sclerae nonicteric Abdomen: Mild lower abdominal tenderness, nondistended Extremities: No edema Neuro: Alert and oriented Results - Labs 03/17/21 08:14 03/17/21 08:14 Assessment and Plan (1) Abdominal pain Narrative/Plan: Patient with persistent abdominal pain. No abdominal imaging during this hospital stay. We'll obtain CT abdomen and pelvis. If that study is normal May discharge. Current Visit: No Status: Acute Code(s): R10.9 - UNSPECIFIED ABDOMINAL PAIN SNOMED Code(s): 02848269
--- NOTE | 2021-03-18 13:23 | P.PN ---
Subjective From records Patient is a 75-year-old female with a known history of paroxysmal atrial fibrillation on anticoagulation with Eliquis, hypertension, GERD, hearing disorder/deafness, osteoarthritis, chronic back pain and history of laryngeal cancer status post treatment approximately 20 years ago, anxiety/depression panic disorder and previous history of smoking presents to ER with the complaints of chest pain. Subjective: 03/17/2021 Patient is a pleasant 75 years old female with multiple medical problems including atrial fibrillation on Eliquis and history of perforated bowel status post resection with colostomy which is reversed later on. She had her surgery on June earlier this year and since then she has been having abdominal pain, abdulkadir león this morning she had abdominal pain but it's resolved within 1-2 hours when I saw her. No nausea vomiting. No diarrhea. However patient presents with chest pain which is improved now. 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 Because of which she underwent cardiac cath today showing nonobstructive mild coronary artery disease with medical management is recommended for now. Patient currently on aspirin 81 mg which is on medication as well as Eliquis 5 mg. Also she is receiving normal saline at 75 mL/h 03/18/2021 Patient is awake and oriented, she underwent cardiac cath yesterday showing mild nonobstructive coronary artery disease, and patient looks like she was cleared for discharge by dental biller Pain in her wrist where the cath was done yesterday. However no chest pain or dyspnea. Patient states she still has abdominal pain which is been going on since June earlier this year's about 8 months ago. Patient is on IV morphine and switch to oral Narco. Chest some suprapubic tenderness therefore surgery team were consulted, we will check a bladder scan and urinalysis Surgery team recommended CT of the abdomen and pelvis which is pending now She continues on Eliquis on home dose of aspirin. Continued on gentle hydration Objective - Vital Signs Vital signs: Vital Signs Temp 98.5 F 03/17/21 20:10 Pulse 71 03/18/21 04:15 Resp 17 03/18/21 04:15 BP 125/72 03/18/21 04:15 Pulse Ox 98 03/18/21 04:15 Intake & Output 03/17/21 03/18/21 03/18/21 18:59 06:59 18:59 Intake Total 1158 890 Balance 1158 890 Weight 74.5 kg Intake: IV 200 Intake, IV Titration 238 Amount Sodium Chloride 0.9% 1, 238 000 ml In Empty Bag 1 bag @ 1 ML/KG/HR 68.5 mls/hr IV .[id number] ALFR[facility]O Rx#: [id number] Oral 720 890 Other: Voiding Method Toilet Toilet # Voids 1 4 # Bowel Movements 1 - Exam GENERAL: The patient is alert and oriented x3, not in any acute distress. Well developed, well nourished. HEENT: Pupils are round and equally reacting to light. EOMI. No scleral icterus. No conjunctival pallor. Normocephalic, atraumatic. No pharyngeal erythema. No thyromegaly. CARDIOVASCULAR: S1 and S2 present. No murmurs, rubs, or gallops. PULMONARY: Chest is clear to auscultation, no wheezing or crackles. ABDOMEN: Soft, nontender, nondistended, normoactive bowel sounds. No palpable organomegaly. MUSCULOSKELETAL: No joint swelling or deformity. EXTREMITIES: No cyanosis, clubbing, or pedal edema. NEUROLOGICAL: Gross neurological examination did not reveal any focal deficits. SKIN: No rashes. no petechiae. - Labs CBC & Chem 7: 03/17/21 08:14 03/17/21 08:14 Assessment and Plan Assessment: Chest pain/angina. Resolved. 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 Replaced. Recent admission with elevated troponin level/NSTEMI Diffuse T wave inversions and narrow QRS. Recently evaluated by EP. Paroxysmal atrial fibrillation on anticoagulation with Eliquis Coronary artery disease history of stent placement History of iron deficiency anemia Vitamin D deficiency Hypovolemic hyponatremia History of GI bleed Hypertension Osteoarthritis Hypothyroidism Hearing disorder/deafness Anxiety/depression and panic disorder Previous history of smoking Plan: This is a pleasant 75 years old female who presents with chest pain and cardiomyopathy Senior Technical Manager cleared The patient for discharge management Continue on aspirin and Eliquis. CT of the abdomen and pelvis is pending. Surgical team on the case Check urine analysis and the bladder scan Labs and medication were reviewed.. Continue same treatment. Continue with symptomatic treatment. Resume home medication. Monitor lytes and vitals. DVT and GI prophylaxis. Further recommendationsas per clinical course of the patie nt DVT prophylaxis: Eliquis GI Prophylaxis: Ppi We will discharge the patient once cleared by dental biller
[2021-03-18] MEDS: LOSARTAN 50 MG TAB PO SCH (17:19)
--- NOTE | 2021-03-18 19:42 | CT ---
EXAMINATION TYPE: CT abdomen pelvis w con DATE OF EXAM: 03/18/2021 COMPARISON: 03/01/2021 HISTORY: Lower abdominal pain, chronic CT DLP: 1182.9 mGycm Automated exposure control for dose reduction was used. CONTRAST: Performed with IV Contrast, patient injected with 100 mL of Isovue 300. Lung bases are clear of consolidation. There is no pleural effusion. There is no pericardial effusion . Heart size is fairly normal. There is surgical clips from gastric bariatric surgery. There are clip s from cholecystectomy. Liver and spleen are intact. There are no dilated ducts. There is no adrenal mass. Kidneys show satisfactory contrast opacification. There is no hydronephrosi s. Ureters are not dilated. There is possible small calculus posterior right kidney. There is no retr operitoneal adenopathy. Bladder distends smoothly. There is no inguinal hernia. There is previous faith suzanne at the sigmoid colon. Abdominal aorta is atheromatous. There is no ascites or free air. There is no bowel obstruction. Appe ndix not seen. No sign of thickened appendix. There is no mesenteric edema. There is some minimal stranding in the right paracolic gutter. There is minimal wall thickening of the ascending colon. The lumbar vertebra show no compression fracture. There is a first-degree L4-5 spondylolisthesis. The re is no focal bone destruction. Bony pelvis is intact. The hip joints are intact. IMPRESSION: Previous surgery. Minimal stranding at the ascending colon with wall thickening that could be mild fo flakita colitis. This appears new compared to old exam.
[2021-03-18 20:14] LABS: Appearance,Urine Clear (Clear); Bilirubin,Urine Negative (Negative); Blood,Urine Negative (Negative); Color,Urine Yellow; Glucose,Urine (UA) Negative (Negative); Ketones,Urine Negative (Negative); Leukocyte Esterase,Urine Negative (Negative); Nitrite,Urine Negative (Negative); Protein,Urine Negative (Negative); Specific Gravity,Urine 1.017 (1.001-1.035); Urobilinogen,Urine <2.0 mg/dL (<2.0)
[2021-03-18] MEDS: SODIUM CHLORIDE 0.9% 1,000 ML IV SCH (20:20)
[2021-03-18] MEDS: hydrOXYzine HCL 10 MG TAB PO SCH (20:25)
[2021-03-18] MEDS: HYDROcodone/APAP 10-325MG 1 EACH TAB PO PRN (20:25)
[2021-03-19] MEDS: HYDROcodone/APAP 10-325MG 1 EACH TAB PO PRN ×3 (04:27→21:09)
[2021-03-19] MEDS: PANTOPRAZOLE 40 MG TABLET PO SCH (06:17)
[2021-03-19] MEDS: LEVOTHYROXINE 100 MCG TAB PO SCH (06:17)
[2021-03-19] MEDS: CHOLECALCIFEROL 25 MCG (1000 IU) TABLET PO SCH (08:01)
[2021-03-19] MEDS: METOPROLOL TARTRATE 25 MG TAB PO SCH (08:01)
[2021-03-19] MEDS: ASPIRIN 81 MG PO SCH (08:01)
[2021-03-19] MEDS: APIXABAN 5 MG TAB PO SCH ×2 (08:02→21:09)
[2021-03-19 08:07] LABS: African American GFR (CKD) >90 (>60 ml/min/1.73 sqM); Anion Gap 2 mmol/L; Blood Urea Nitrogen 5 mg/dL (7-17); Calcium 7.9 mg/dL (8.4-10.2); Carbon Dioxide 20 mmol/L (22-30); Chloride 110 mmol/L (98-107); Glucose 85 mg/dL (74-99); Magnesium 1.8 mg/dL (1.6-2.3); Non-African American GFR(CKD) >90 (>60 ml/min/1.73 sqM); Potassium 3.7 mmol/L (3.5-5.1); Sodium 132 mmol/L (137-145)
[2021-03-19 08:21] VITALS: RESP 18
--- NOTE | 2021-03-19 08:23 | P.PN ---
Subjective Progress Note Date: 03/19/21 Principal diagnosis: Cardiomyopathy The patient is a 75-year-old female patient was admitted to the hospital with a chest discomfort beach she underwent an echocardiogram which revealed cardiomyopathy which seems to be new diagnosis to the patient. She underwent a heart catheterization and that revealed mild nonobstructive coronary artery disease. The heart catheterization was performed from right radial approach. The patient was seen this morning. She did have some right arm discomfort yesterday and the right hand discomfort after the heart catheterization but she stated that has improved. She reports no chest pain or chest discomfort. No shortness of breath. She was experiencing some mild abdominal discomfort yesterday and for that reason she was kept overnight. She stated that the abdominal discomfort has improved. I'm going to DC the aspirin since she is on oral anticoagulation. From the cardiac standpoint of view, the patient can be discharged if she is stable from the gastrointestinal standpoint overview. Objective - Vital Signs Vital signs: Vital Signs Temp 97.8 F 03/19/21 07:48 Pulse 77 03/19/21 07:48 Resp 18 03/19/21 07:48 BP 90/52 03/19/21 07:48 Pulse Ox 99 03/19/21 07:48 Intake & Output 03/18/21 03/19/21 03/19/21 18:59 06:59 18:59 Intake Total 1850 Balance 1850 Weight 74.7 kg Intake: Oral 1850 Other: Voiding Method Toilet Toilet # Voids 4 3 - Constitutional General appearance: Present: no acute distress - Respiratory Respiratory: bilateral: CTA - Cardiovascular Rhythm: regular - Labs CBC & Chem 7: 03/17/21 08:14 03/19/21 07:36 Labs: Abnormal Lab Results - Last 24 Hours (Table) 03/19/21 Range/Units 07:36 Sodium 132 L (137-145) mmol/L Chloride 110 H (98-107) mmol/L Carbon Dioxide 20 L (22-30) mmol/L BUN 5 L (7-17) mg/dL Creatinine 0.49 L (0.52-1.04) mg/dL Calcium 7.9 L (8.4-10.2) mg/dL Assessment and Plan Assessment: Assessment #1 chest discomfort which has resolved #2 cardiomyopathy nonischemic #3 possible right radial spasm #4 abdominal discomfort which has resolved Plan #1 DC aspirin #2 the patient can be discharged home from the cardiac standpoint
--- NOTE | 2021-03-19 10:28 | P.PN ---
Subjective Progress Note Date: 03/19/21 Principal diagnosis: Abdominal pain Patient went for her CAT scan yesterday. CAT scan shows nonspecific colitis. Certainly the portion of colon with the most impressive inflammatory changes of the cecum which would consistent with her exam findings. Etiology unclear. Normal bowel movement today. No diarrhea. Objective - Vital Signs Vital signs: Vital Signs Temp 97.8 F 03/19/21 07:48 Pulse 77 03/19/21 07:48 Resp 18 03/19/21 07:48 BP 90/52 03/19/21 07:48 Pulse Ox 99 03/19/21 07:48 Intake & Output 03/18/21 03/19/21 03/19/21 18:59 06:59 18:59 Intake Total 1850 360 Balance 1850 360 Weight 74.7 kg Intake: Oral 1850 360 Other: Voiding Method Toilet Toilet Toilet # Voids 4 3 - Exam Abdomen: Soft, nondistended, mild lower abdominal tenderness, no rebound or guarding - Labs CBC & Chem 7: 03/17/21 08:14 03/19/21 07:36 Labs: Abnormal Lab Results - Last 24 Hours (Table) 03/19/21 Range/Units 07:36 Sodium 132 L (137-145) mmol/L Chloride 110 H (98-107) mmol/L Carbon Dioxide 20 L (22-30) mmol/L BUN 5 L (7-17) mg/dL Creatinine 0.49 L (0.52-1.04) mg/dL Calcium 7.9 L (8.4-10.2) mg/dL Assessment and Plan (1) Abdominal pain Narrative/Plan: Patient with out diarrhea. CAT scan shows mild colitis. We'll start Flagyl at this time. Continue diet. We'll notify Dr. Burt tomorrow. Current Visit: No Status: Acute Code(s): R10.9 - UNSPECIFIED ABDOMINAL PAIN SNOMED Code(s): 95284690
[2021-03-19] MEDS: metroNIDAZOLE-NS PMX 500 MG in SALINE 1 100ML.BAG IVPB SCH ×2 (11:45→17:57)
--- NOTE | 2021-03-19 12:38 | P.PN ---
Subjective From records Patient is a 75-year-old female with a known history of paroxysmal atrial fibrillation on anticoagulation with Eliquis, hypertension, GERD, hearing disorder/deafness, osteoarthritis, chronic back pain and history of laryngeal cancer status post treatment approximately 20 years ago, anxiety/depression panic disorder and previous history of smoking presents to ER with the complaints of chest pain. Subjective: 03/17/2021 Patient is a pleasant 75 years old female with multiple medical problems including atrial fibrillation on Eliquis and history of perforated bowel status post resection with colostomy which is reversed later on. She had her surgery on June earlier this year and since then she has been having abdominal pain, abdulkadir león this morning she had abdominal pain but it's resolved within 1-2 hours when I saw her. No nausea vomiting. No diarrhea. However patient presents with chest pain which is improved now. 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 Because of which she underwent cardiac cath today showing nonobstructive mild coronary artery disease with medical management is recommended for now. Patient currently on aspirin 81 mg which is on medication as well as Eliquis 5 mg. Also she is receiving normal saline at 75 mL/h 03/18/2021 Patient is awake and oriented, she underwent cardiac cath yesterday showing mild nonobstructive coronary artery disease, and patient looks like she was cleared for discharge by scenery builder Pain in her wrist where the cath was done yesterday. However no chest pain or dyspnea. Patient states she still has abdominal pain which is been going on since June earlier this year's about 8 months ago. Patient is on IV morphine and switch to oral Narco. Chest some suprapubic tenderness therefore surgery team were consulted, we will check a bladder scan and urinalysis Surgery team recommended CT of the abdomen and pelvis which is pending now She continues on Eliquis on home dose of aspirin. Continued on gentle hydration 03/19/2021 Patient still has ongoing abdominal pain and tenderness, CT of the abdomen and pelvis showing mild colitis of the right colon, focal. And hence the patient was started on Flagyl by surgery team. I would add ceftriaxone for today and tomorrow. Possible patient will be discharged on oral antibiotics was cleared by surgery team as she is doing well in 24-48 hours. She is tolerating diet 50- 100%, and has no diarrhea. Also her blood pressure has several episodes of dropping into the 80s and 90s and better improves up to more than 100. We sort the dose of losartan from tomorrow 50 down to 25 mg daily, hold metoprolol dose tonight. Patient is off IV fluids currently. Cardiac cath was nonobstructive and patient most likely has known ischemic cardiomyopathy. Objective - Vital Signs Vital signs: Vital Signs Temp 97.8 F 03/19/21 07:48 Pulse 77 03/19/21 07:48 Resp 18 03/19/21 07:48 BP 90/52 03/19/21 07:48 Pulse Ox 99 03/19/21 07:48 Intake & Output 03/18/21 03/19/21 03/19/21 18:59 06:59 18:59 Intake Total 1850 360 Balance 1850 360 Weight 74.7 kg Intake: Oral 1850 360 Other: Voiding Method Toilet Toilet Toilet # Voids 4 3 - Exam GENERAL: The patient is alert and oriented x3, not in any acute distress. Well developed, well nourished. HEENT: Pupils are round and equally reacting to light. EOMI. No scleral icterus. No conjunctival pallor. Normocephalic, atraumatic. No pharyngeal erythema. No thyromegaly. CARDIOVASCULAR: S1 and S2 present. No murmurs, rubs, or gallops. PULMONARY: Chest is clear to auscultation, no wheezing or crackles. ABDOMEN: Soft, nontender, nondistended, normoactive bowel sounds. No palpable organomegaly. MUSCULOSKELETAL: No joint swelling or deformity. EXTREMITIES: No cyanosis, clubbing, or pedal edema. NEUROLOGICAL: Gross neurological examination did not reveal any focal deficits. SKIN: No rashes. no petechiae. 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 Cardiac cath is negative Right-sided colitis Hypomagnesemia. Replaced. Recent admission with elevated troponin level/NSTEMI Diffuse T wave inversions and narrow QRS. Recently evaluated by EP. Paroxysmal atrial fibrillation on anticoagulation with Eliquis Coronary artery disease history of stent placement History of iron deficiency anemia Vitamin D deficiency Hypovolemic hyponatremia History of GI bleed Hypertension Osteoarthritis Hypothyroidism Hearing disorder/deafness Anxiety/depression and panic disorder Previous history of smoking Plan: This is a pleasant 75 years old female who presents with chest pain and cardiomyopathy Rehabilitation Physician cleared The patient for discharge management Continue on aspirin and Eliquis. Patient is with colitis and started on antibiotics ceftriaxone and Flagyl Check urine analysis and the bladder scan Labs and medication were reviewed.. Continue same treatment. Continue with symptomatic treatment. Resume home medication. Monitor lytes and vitals. DVT and GI prophylaxis. Further recommendationsas per clinical course of the patient DVT prophylaxis: Eliquis GI Prophylaxis: Ppi We will discharge the patient once cleared by scenery builder
[2021-03-19] MEDS: LOSARTAN 25 MG TAB PO SCH (17:57)
[2021-03-19] MEDS: SODIUM CHLORIDE 0.9% 1,000 ML IV SCH (18:00)
[2021-03-19] MEDS: SODIUM CHLORIDE 0.9% 1,000 ML in EMPTY BAG 1 BAG IV SCH ×2 (19:55→23:03)
[2021-03-19] MEDS: hydrOXYzine HCL 10 MG TAB PO SCH (21:09)
[2021-03-20] MEDS: metroNIDAZOLE-NS PMX 500 MG in SALINE 1 100ML.BAG IVPB SCH ×3 (02:36→18:16)
[2021-03-20] MEDS: LEVOTHYROXINE 100 MCG TAB PO SCH (06:16)
[2021-03-20] MEDS: PANTOPRAZOLE 40 MG TABLET PO SCH (06:16)
[2021-03-20] MEDS: APIXABAN 5 MG TAB PO SCH ×2 (08:14→21:22)
[2021-03-20] MEDS: METOPROLOL TARTRATE 25 MG TAB PO SCH ×2 (08:14→21:21)
[2021-03-20] MEDS: CHOLECALCIFEROL 25 MCG (1000 IU) TABLET PO SCH (08:14)
[2021-03-20] MEDS: HYDROcodone/APAP 10-325MG 1 EACH TAB PO PRN ×3 (08:14→22:17)
[2021-03-20] MEDS: DICYCLOMINE 20 MG TAB PO SCH ×4 (10:24→21:22)
[2021-03-20 11:48] VITALS: BMI 28.3
--- NOTE | 2021-03-20 11:59 | P.PN ---
Subjective Progress Note Date: 03/20/21 CHIEF COMPLAINT: Abdominal pain HISTORY OF PRESENT ILLNESS: Patient is still complaining of lower right mid abdominal pain. She reports that her pain is worse than her usual chronic pain. She is having soft brown bowel movements. Denies any nausea or vomiting. Afebrile. Reports a decreased appetite. WBC from 1210 was 5.2 hemoglobin 12 PHYSICAL EXAM: VITAL SIGNS: Reviewed. GENERAL: Well-developed in no acute distress. HEENT: No sclera icterus. Extraocular movements grossly intact. Moist buccal mucosa. Head is atraumatic, normocephalic. ABDOMEN: Soft. Nondistended. Tenderness of the patient of right mid lower abdomen NEUROLOGIC: Alert and oriented. Cranial nerves II through XII grossly intact. ASSESSMENT: 1. Abdominal pain 2. Colitis PLAN: -We'll plan for colonoscopy on , 03/23/[address] Burt -Continue antibiotics -Downgrade diet to full liquids in preparation for colonoscopy -Hold Eliquis starting tomorrow morning Physician Buckle Attaching Machine Operator note has been reviewed by physician. Signing provider agrees with the documented findings, assessment, and plan of care. Objective - Vital Signs Vital signs: Vital Signs Temp 97.8 F 03/20/21 11:41 Pulse 67 03/20/21 11:41 Resp 18 03/20/21 11:41 BP 126/54 03/20/21 11:41 Pulse Ox 99 03/20/21 11:41 Intake & Output 03/19/21 03/20/21 03/20/21 18:59 06:59 18:59 Intake Total 944 160 Balance 944 160 Weight 72.5 kg 72.5 kg Intake: IV 10 0.9 10 Intake, IV Titration 150 Amount cefTRIAXone 2 gm In 50 Sodium Chloride 0.9% 50 ml @ 100 mls/hr IVPB Q24HR [facility] Rx#:[id number] metroNIDAZOLE-NS PMX 500 100 mg In Saline 1 100ml.bag @ 100 mls/hr IVPB Q8H [facility] Rx#:[id number] Oral 944 Other: Voiding Method Toilet Toilet Toilet # Voids 2 1 - Labs CBC & Chem 7: 03/17/21 08:14 03/19/21 07:36
--- NOTE | 2021-03-20 16:21 | P.PN ---
Subjective From records Patient is a 75-year-old female with a known history of paroxysmal atrial fibrillation on anticoagulation with Eliquis, hypertension, GERD, hearing disorder/deafness, osteoarthritis, chronic back pain and history of laryngeal cancer status post treatment approximately 20 years ago, anxiety/depression panic disorder and previous history of smoking presents to ER with the complaints of chest pain. Subjective: 03/17/2021 Patient is a pleasant 75 years old female with multiple medical problems including atrial fibrillation on Eliquis and history of perforated bowel status post resection with colostomy which is reversed later on. She had her surgery on June earlier this year and since then she has been having abdominal pain, abdulkadir león this morning she had abdominal pain but it's resolved within 1-2 hours when I saw her. No nausea vomiting. No diarrhea. However patient presents with chest pain which is improved now. 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 Because of which she underwent cardiac cath today showing nonobstructive mild coronary artery disease with medical management is recommended for now. Patient currently on aspirin 81 mg which is on medication as well as Eliquis 5 mg. Also she is receiving normal saline at 75 mL/h 03/18/2021 Patient is awake and oriented, she underwent cardiac cath yesterday showing mild nonobstructive coronary artery disease, and patient looks like she was cleared for discharge by teletype adjuster Pain in her wrist where the cath was done yesterday. However no chest pain or dyspnea. Patient states she still has abdominal pain which is been going on since June earlier this year's about 8 months ago. Patient is on IV morphine and switch to oral Narco. Chest some suprapubic tenderness therefore surgery team were consulted, we will check a bladder scan and urinalysis Surgery team recommended CT of the abdomen and pelvis which is pending now She continues on Eliquis on home dose of aspirin. Continued on gentle hydration 03/19/2021 Patient still has ongoing abdominal pain and tenderness, CT of the abdomen and pelvis showing mild colitis of the right colon, focal. And hence the patient was started on Flagyl by surgery team. I would add ceftriaxone for today and tomorrow. Possible patient will be discharged on oral antibiotics was cleared by surgery team as she is doing well in 24-48 hours. She is tolerating diet 50- 100%, and has no diarrhea. Also her blood pressure has several episodes of dropping into the 80s and 90s and better improves up to more than 100. We sort the dose of losartan from tomorrow 50 down to 25 mg daily, hold metoprolol dose tonight. Patient is off IV fluids currently. Cardiac cath was nonobstructive and patient most likely has known ischemic cardiomyopathy. 03/20/2021 Patient admitted with chest pain in view of her recent non-STEMI and cardiomyo sylvia with ejection fraction 35-40%, teletype adjuster suspected ischemic etiology however her cardiac cath showing mild nonobstructive coronary artery disease and she was cleared by teletype adjuster. However she remained complaining from abdominal pain which was going on since June of this year as patient states however this morning she was in severe distress due to her lower abdominal pain, maximum point patient points to her below umbilicus area. She rated as 9-10/10 in severity when she ate little below this morning. But she has no diarrhea as she states. CT of the abdomen yesterday showing possible colitis of the right colon but a small area per report. Ceftriaxone and Flagyl added. Other than that she's hemodynamically stable and her blood pressure improved after lowering the dose of losartan. Her labs are unremarkable. Urine analysis is normal and BMP is unremarkable. Allison is admitted today to help her with her pain. Surgery team are planning for colonoscopy on . Eliquis on hold for that reason. She is on Eliquis for A. fib B12 is 307 on the low side and replacement therapy is a started orally Objective - Vital Signs Vital signs: Vital Signs Temp 97.8 F 03/20/21 11:41 Pulse 67 03/20/21 11:41 Resp 18 03/20/21 11:41 BP 126/54 03/20/21 11:41 Pulse Ox 99 03/20/21 11:41 Intake & Output 03/19/21 03/20/21 03/20/21 18:59 06:59 18:59 Intake Total 944 160 Balance 944 160 Weight 72.5 kg 72.5 kg Intake: IV 10 0.9 10 Intake, IV Titration 150 Amount cefTRIAXone 2 gm In 50 Sodium Chloride 0.9% 50 ml @ 100 mls/hr IVPB Q24HR [facility] Rx#:[id number] metroNIDAZOLE-NS PMX 500 100 mg In Saline 1 100ml.bag @ 100 mls/hr IVPB Q8H [facility] Rx#:[id number] Oral 944 Other: Voiding Method Toilet Toilet Toilet # Voids 2 1 - Exam GENERAL: The patient is alert and oriented x3, not in any acute distress. Well developed, well nourished. HEENT: Pupils are round and equally reacting to light. EOMI. No scleral icterus. No conjunctival pallor. Normocephalic, atraumatic. No pharyngeal erythema. No thyromegaly. CARDIOVASCULAR: S1 and S2 present. No murmurs, rubs, or gallops. PULMONARY: Chest is clear to auscultation, no wheezing or crackles. ABDOMEN: Soft, nontender, nondistended, normoactive bowel sounds. No palpable organomegaly. MUSCULOSKELETAL: No joint swelling or deformity. EXTREMITIES: No cyanosis, clubbing, or pedal edema. NEUROLOGICAL: Gross neurological examination did not reveal any focal deficits. SKIN: No rashes. no petechiae. - Labs CBC & Chem 7: 03/17/21 08:14 03/19/21 07:36 Assessment and Plan Assessment: Severe lower abdominal pain, could be secondary to colitis versus other, possible also irritable bowel syndrome. 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 Cardiac cath is negative Hypomagnesemia. Replaced. Recent admission with elevated troponin level/NSTEMI Diffuse T wave inversions and narrow QRS. Recently evaluated by EP. Paroxysmal atrial fibrillation on anticoagulation with Eliquis Coronary artery disease history of stent placement History of iron deficiency anemia Vitamin D deficiency Hypovolemic hyponatremia History of GI bleed Hypertension Osteoarthritis Hypothyroidism Hearing disorder/deafness Anxiety/depression and panic disorder Previous history of smoking Plan: This is a pleasant 75 years old female who presents with chest pain and cardiomyopathy Bentyl is added Surgery team planning for colonoscopy on 03/23. Eliquis on hold for this reason Continue on aspirin and Eliquis(hold until after colonoscopy). Patient is with colitis and started on antibiotics ceftriaxone and Flagyl Check bladder scan Labs and medication were reviewed.. Continue same treatment. Continue with symptomatic treatment. Resume home medication. Monitor lytes and vitals. DVT and GI prophylaxis. Further recommendations as per clinical course of the patient DVT prophylaxis: Eliquis GI Prophylaxis: Ppi
[2021-03-20] MEDS: LOSARTAN 25 MG TAB PO SCH (18:16)
[2021-03-20] MEDS: CYANOCOBALAMIN 500 MCG TAB PO SCH (18:16)
[2021-03-20] MEDS: SODIUM CHLORIDE 0.9% 1,000 ML IV SCH (18:22)
[2021-03-20] MEDS: SODIUM CHLORIDE 0.9% 1,000 ML in EMPTY BAG 1 BAG IV SCH (18:22)
[2021-03-20] MEDS: hydrOXYzine HCL 10 MG TAB PO SCH (21:21)
[2021-03-20] MEDS: CALCIUM CARBONATE 500 MG CHEWABLE PO PRN (22:17)
[2021-03-21] MEDS: HYDROcodone/APAP 10-325MG 1 EACH TAB PO PRN (03:50)
[2021-03-21] MEDS: metroNIDAZOLE-NS PMX 500 MG in SALINE 1 100ML.BAG IVPB SCH ×2 (03:51→12:12)
[2021-03-21] MEDS: LEVOTHYROXINE 100 MCG TAB PO SCH (06:40)
[2021-03-21] MEDS: PANTOPRAZOLE 40 MG TABLET PO SCH (06:40)
[2021-03-21 06:54] LABS: Basophils # (A) 0.1 k/uL (0-0.2); Basophils % (A) 1 %; Eosinophils # (A) 0.2 k/uL (0-0.7); Eosinophils % (A) 4 %; HCT 29.5 % (34.0-46.0); Hypochromasia Marked; Lymphocytes # (A) 1.7 k/uL (1.0-4.8); Lymphocytes % (A) 44 %; MCH 34.7 pg (25.0-35.0); MCHC 31.1 g/dL (31.0-37.0); MCV 111.8 fL (80.0-100.0); Macrocytosis Marked; Mean Platelet Volume 7.6; Monocytes # (A) 0.3 k/uL (0-1.0); Monocytes % (A) 9 %; Neutrophils # (A) 1.4 k/uL (1.3-7.7); Neutrophils % (A) 37 %; Platelet Count 304 k/uL (150-450); RBC 2.64 m/uL (3.80-5.40); RDW 15.3 % (11.5-15.5); WBC 3.8 k/uL (3.8-10.6)
[2021-03-21 06:55] LABS: HGB 9.2 gm/dL (11.4-16.0)
[2021-03-21 06:59] LABS: African American GFR (CKD) >90 (>60 ml/min/1.73 sqM); Anion Gap 2 mmol/L; Blood Urea Nitrogen 6 mg/dL (7-17); Calcium 7.6 mg/dL (8.4-10.2); Carbon Dioxide 19 mmol/L (22-30); Chloride 111 mmol/L (98-107); Glucose 87 mg/dL (74-99); Non-African American GFR(CKD) >90 (>60 ml/min/1.73 sqM); Potassium 3.9 mmol/L (3.5-5.1); Sodium 132 mmol/L (137-145)
[2021-03-21 07:26] LABS: Poikilocytosis (M) Present
[2021-03-21] MEDS: METOPROLOL TARTRATE 25 MG TAB PO SCH (10:08)
[2021-03-21] MEDS: CHOLECALCIFEROL 25 MCG (1000 IU) TABLET PO SCH (10:08)
[2021-03-21] MEDS: CYANOCOBALAMIN 500 MCG TAB PO SCH (10:10)
[2021-03-21] MEDS: DICYCLOMINE 20 MG TAB PO SCH ×2 (10:10→13:57)
[2021-03-21 12:05] VITALS: BP 112/64; PULSE 69; TEMP 97.8
[2021-03-21] MEDS: SODIUM CHLORIDE 0.9% 1,000 ML in EMPTY BAG 1 BAG IV SCH (12:13)
--- NOTE | 2021-03-21 13:20 | P.PN ---
Subjective Progress Note Date: 03/21/21 CHIEF COMPLAINT: Abdominal pain HISTORY OF PRESENT ILLNESS: Patient is complaining of lower mid and right abdominal pain. Patient reports that she can take care of this pain at home. She is requesting that the colonoscopy be done outpatient. She denies any blood in her stools or black stools. Denies any nausea or vomiting. Tolerating a small amount of diet. Afebrile. WBC 3.8 hemoglobin 12 down to 9.2 platelets 304 sodium 132 potassium is 3.9 creatinine 0.45 PHYSICAL EXAM: VITAL SIGNS: Reviewed. GENERAL: Well-developed in no acute distress. HEENT: No sclera icterus. Extraocular movements grossly intact. Moist buccal mucosa. Head is atraumatic, normocephalic. ABDOMEN: Soft. Nondistended. Tenderness of the patient of right mid lower abdomen NEUROLOGIC: Alert and oriented. Cranial nerves II through XII grossly intact. ASSESSMENT: 1. Abdominal pain 2. Colitis PLAN: -Patient can be discharged from surgical standpoint. We will arrange colonoscopy outpatient at her follow-up appointment with Dr. atkins -Continue antibiotics after discharge -Okay to resume Carolyne Physician [employer] note has been reviewed by physician. Signing provider agrees with the documented findings, assessment, and plan of care. Objective - Vital Signs Vital signs: Vital Signs Temp 97.8 F 03/21/21 12:05 Pulse 69 03/21/21 12:05 Resp 18 03/21/21 12:05 BP 112/64 03/21/21 12:05 Pulse Ox 99 03/21/21 12:05 Intake & Output 03/20/21 03/21/21 03/21/21 18:59 06:59 18:59 Intake Total 600 Balance 600 Weight 72.5 kg 68.3 kg Intake: Oral 600 Other: Voiding Method Toilet Toilet Toilet # Voids 2 - Labs CBC & Chem 7: 03/21/21 05:59 03/21/21 05:59 Labs: Abnormal Lab Results - Last 24 Hours (Table) 03/21/21 03/21/21 Range/Units 05:59 05:59 RBC 2.64 L (3.80-5.40) m/uL Hgb 9.2 L D (11.4-16.0) gm/dL Hct 29.5 L (34.0-46.0) % MCV 111.8 H (80.0-100.0) fL Macrocytosis Marked A Sodium 132 L (137-145) mmol/L Chloride 111 H (98-107) mmol/L Carbon Dioxide 19 L (22-30) mmol/L BUN 6 L (7-17) mg/dL Creatinine 0.45 L (0.52-1.04) mg/dL Calcium 7.6 L (8.4-10.2) mg/dL
--- NOTE | 2021-03-21 22:18 | P.DS ---
Providers Date of admission: 03/14/21 13:07 Attending physician: Edson Su Consults: 03/14/21 13:04 Consult Physician Urgent Consulting Provider: [facility] Reason/Comments: acute chest pain Do you want consulting provider notified?: Yes 03/20/21 10:28 Consult Physician Routine Consulting Provider: Phil Burt Reason/Comments: abdominal pain Do you want consulting provider notified?: Already Contacted Primary care physician: Courtney Cook [facility] Course: Diagnoses: Severe lower abdominal pain, could be secondary to colitis versus other, possible also irritable bowel syndrome. Significantly improved after adding Bentyl and antibiotic and hence patient's wants to leave Right-sided colitis Borderline low vitamin B12, replaced Takotsubo cardiomyopathy with ejection fraction 35-40% . Cardiac cath is negative Hypomagnesemia. Replaced. Recent admission with elevated troponin level/NSTEMI Diffuse T wave inversions and narrow QRS. Recently evaluated by EP. Paroxysmal atrial fibrillation on anticoagulation with Eliquis Coronary artery disease history of stent placement History of iron deficiency anemia Vitamin D deficiency, replace upon discharge Hypovolemic hyponatremia History of GI bleed Hypertension Osteoarthritis Hypothyroidism Hearing disorder/deafness Anxiety/depression and panic disorder Previous history of smoking Hospital course: Patient is a 75-year-old female with a known history of paroxysmal atrial fibrillation on anticoagulation with Eliquis, hypertension, GERD, hearing di sorder/deafness, osteoarthritis, chronic back pain and history of laryngeal cancer status post treatment approximately 20 years ago, anxiety/depression panic disorder and previous history of smoking presents to ER with the complaints of chest pain. Patient lives by herself and her sister Tyesha stinson to help her and take care of her. Originally patient was admitted with cardiac symptoms mainly as well as vomiting. She had chronic abdominal pain as she states. Patient has been evaluated by flying shear operator and echocardiogram showing ejection fraction of 35-40% with wall hypokinesia mainly With sparing the patient is highly suspicious for Takotsubo cardiomyopathy, especially after she underwent cardiac cath showing mild nonobstructive coronary artery disease, hence her diligence recommended to DC aspirin. However patient continued to have severe abdominal pain, surgical evaluation was obtained who ordered CT of the abdomen and pelvis showed possible colitis of the right colon, focal Period Flagyl and ceftriaxone were added and within today Bentyl 20 mg 4 times a day was added as well mainly yesterday and patient severe abdominal pains improved significantly today, patient states that her pain almost disappeared and she rated 3/10, she was satisfied with the progress she made that she did not want to stay in the hospital and wanted to leave. Surgical team and Dr. Blanco yesterday recommended colonoscopy which was planned to do any 3 days on this coming because she was on Eliquis for A. fib and it was held. But since patient symptoms improved she was adamant to be discharged today and do the colonoscopy as an outpatient ( patient told to staff and bedside nurse she is going to leave today no matter what) Hence surgical team cleared her for discharge and follow-up as an outpatient for management for colonoscopy. However hemoglobin done 4 days ago it dropped today 12 down to 9.2 however she is hemodynamically stable and asymptomatic she has good appetite, she was eating 50-100% of her diet. Patient states that she had regular bowel movement yesterday which is normal for her. And there were elements of hemoglobin delusion as all cells came down WBCs 5.2 down to 3.8, hemoglobin 12 down to 9.2 and platelets 402 down to 3.4, there is no report of bleeding or stool or rectum, no black stool states her stool is brown, hence surgery team. Patient can resume her Eliquis and follow-up as an outpatient. I talked about these recommendation to the patient and her sister Tyesha in details and the agree. Patient wasn't sure if she was on Eliquis at home so staff called her pharmacy who confirmed Eliquis last felt 02/13/0410/10/1959 day supply, informed the patient and sister undergone to check they think most likely have the medication and if not they're instructed to call floor back or her PCP Dr. Valdez or flying shear operator Dr. Gramajo as she has very close follow-up appointment in 2 and 3 days respectively. Also patient has other causes for anemia like low vitamin B12 which is been replaced. Says that patient be discharged on a Protonix twice daily to decrease chances of any bleeding. Eventually patient was cleared for discharge by all consultants including c ardiologist and induction coordination engineer Patient was adamant to leave today no matter what, therefore it is felt safer for the patient to be discharged to help with her compliance than to let her leaving AGAINST MEDICAL ADVICE. Besides patient was medically stable although her prognosis is guarded I discussed all medication and prescription with the patient and her daughter Tyesha in details and they verbalized understanding, the aware that aspirin to be discontinued and Eliquis need to be continued. Risks benefits are explained in details Patient will be discharged on oral antibiotics Problems and management plan were discussed with the patient and he verbalized understanding and acceptance. Also I discussed in details with her sister Tyesha (upon patient request ) and she verbalized understanding and agreeable with the plan Patient was found stable and can be discharged home in guarded prognosis however he needs follow-up as an outpatient. Patient was instructed to follow up with PCP Dr. Chow within one week and patient agrees with the appointments made for her on 03/23 which is in 2 days. Also patient agrees with the appointments made for her with comfort flying shear operator Dr. Gramajo on 03/24 which is within 3 days Also she agrees with appointment for for her with Dr. Pires on and 03/27 this coming Saturday Physical exam Gen: patient is a AAOx3, no distress CVS: S1-S2, RRR, no murmur Lungs: B/L CTA, no wheezing Abdomen: soft, no distention, no tenderness, positive bowel sounds Extremity: no leg edema or induration Time spent more than 35 minutes Patient Condition at Discharge: Stable Plan - Discharge Summary Discharge Rx Participant: Yes New Discharge Prescriptions: New Dicyclomine [Bentyl] 20 mg PO QID 15 Days #60 tab Cefuroxime Axetil [Ceftin] 500 mg PO BID 7 Days #14 tab Losartan [Cozaar] 25 mg PO DAILY@1800 #30 tab metroNIDAZOLE [Flagyl] 500 mg PO TID 7 Days #21 tab Pantoprazole [Protonix] 40 mg PO BID #30 tab Cyanocobalamin [Vitamin B-12] 1,000 mcg PO DAILY #30 tab Cholecalciferol [Vitamin D3 (25 Mcg = 1000 Iu)] 25 mcg PO DAILY #30 tablet Continue Levothyroxine Sodium [Synthroid] 200 mcg PO DAILY Ondansetron Odt [Zofran ODT] 4 mg PO Q8HR PRN #10 tab PRN Reason: Nausea Metoprolol Tartrate [Lopressor] 25 mg PO BID #60 tab Calcium Carbonate [Tums] 500 mg PO QID PRN tab PRN Reason: Heartburn Megestrol Acetate 40 mg PO BID hydrOXYzine HCL [Atarax] 10 mg PO HS LORazepam [Ativan] 0.5 mg PO HS PRN PRN Reason: Anxiety/SLEEP Apixaban [Eliquis] 5 mg PO BID #60 tab Nitroglycerin Sl Tabs [Nitrostat] 0.4 mg SUBLINGUAL Q5M PRN tab PRN Reason: Chest Pain HYDROcodone/APAP 10-325MG [[place] 10-325] 1 tab PO BID #0 Discontinued Aspirin [Adult Low Dose Aspirin EC] 81 mg PO DAILY 30 Days #30 tab Loperamide [Imodium] 2 mg PO QID PRN #0 cap PRN Reason: Diarrhea Magnesium Oxide [Mag-Ox] 400 mg PO BID #60 tablet Losartan [Cozaar] 50 mg PO DAILY@1800 tab Omeprazole [PriLOSEC] 40 mg PO AC-BRKFST #14 cap Discharge Medication List Levothyroxine Sodium [Synthroid] 200 mcg PO DAILY 01/12/19 [History] LORazepam [Ativan] 0.5 mg PO HS PRN 11/25/20 [History] Ondansetron Odt [Zofran ODT] 4 mg PO Q8HR PRN #10 tab 12/04/20 [Rx] Apixaban [Eliquis] 5 mg PO BID #60 tab 01/12/21 [Rx] Calcium Carbonate [Tums] 500 mg PO QID PRN tab 01/12/21 [Rx] Metoprolol Tartrate [Lopressor] 25 mg PO BID #60 tab 01/12/21 [Rx] Megestrol Acetate 40 mg PO BID 03/01/21 [History] hydrOXYzine HCL [Atarax] 10 mg PO HS 03/01/21 [History] HYDROcodone/APAP 10-325MG [[place] 10-325] 1 tab PO BID #0 03/06/21 [Rx] Nitroglycerin Sl Tabs [Nitrostat] 0.4 mg SUBLINGUAL Q5M PRN tab 03/06/21 [Rx] Cefuroxime Axetil [Ceftin] 500 mg PO BID 7 Days #14 tab 03/21/21 [Rx] Cholecalciferol [Vitamin D3 (25 Mcg = 1000 Iu)] 25 mcg PO DAILY #30 tablet 03/21/21 [Rx] Cyanocobalamin [Vitamin B-12] 1,000 mcg PO DAILY #30 tab 03/21/21 [Rx] Dicyclomine [Bentyl] 20 mg PO QID 15 Days #60 tab 03/21/21 [Rx] Losartan [Cozaar] 25 mg PO DAILY@1800 #30 tab 03/21/21 [Rx] Pantoprazole [Protonix] 40 mg PO BID #30 tab 03/21/21 [Rx] metroNIDAZOLE [Flagyl] 500 mg PO TID 7 Days #21 tab 03/21/21 [Rx] Follow up Appointment(s)/Referral(s): Joey Valdez MD [Primary Care Provider] - 03/23/21 10:40 am Donal Gramajo DO [STAFF PHYSICIAN] - 03/24/21 4:15 pm (Existing appoitment) [facility] Nurse, [NON-STAFF] - Phil Burt MD [STAFF PHYSICIAN] - 03/27/21 10:45 am Patient Instructions/Handouts: Left Heart Catheterization (PRE) Activity/Diet/Wound Care/Special Instructions: Heart healthy diet Activity is restricted till you see your doctor Please monitor for any signs of bleeding. For example blood in stool, blood clots in the stool, black-colored stool, or worsening abdominal pain, nausea and vomiting, also with good dizziness, lightheadedness, sweating and confusion. And if you find any of these signs and/or symptoms or any other please call 911 on come to emergency room Discharge Disposition: HOME WITH HOME HEALTH SERVICES
== END 2021-03-21 15:17 | disposition home health service (06) | DRG 287 ==
LOC: EC 09:24 → 3SCARD 13:07
PROVIDERS: ADMIT Internal Medicine; ATTEND Internal Medicine
PROC: B2111ZZ Fluoroscopy of Multiple Coronary Arteries using Low Osmolar Contrast (ICD-10-PCS; 2021-03-17)
PROC: 4A023N7 Measurement of Cardiac Sampling and Pressure, Left Heart, Percutaneous Approach (ICD-10-PCS; principal; 2021-03-17 07:30)
DX: I51.81 Takotsubo syndrome (principal); E87.1 Hypo-osmolality and hyponatremia; I42.8 Other cardiomyopathies; D64.9 Anemia, unspecified; E03.9 Hypothyroidism, unspecified; E55.9 Vitamin D deficiency, unspecified; E78.5 Hyperlipidemia, unspecified; E86.1 Hypovolemia; F32.A Depression, unspecified; F41.0 Panic disorder [episodic paroxysmal anxiety]; G89.29 Other chronic pain; H91.90 Unspecified hearing loss, unspecified ear; I10 Essential (primary) hypertension; I25.119 Atherosclerotic heart disease of native coronary artery with unspecified angina pectoris; I25.5 Ischemic cardiomyopathy; I48.0 Paroxysmal atrial fibrillation; K52.9 Noninfective gastroenteritis and colitis, unspecified; K59.09 Other constipation; M19.90 Unspecified osteoarthritis, unspecified site; Z20.822 Contact with and (suspected) exposure to COVID-19; Z79.01 Long term (current) use of anticoagulants; Z79.82 Long term (current) use of aspirin; Z79.890 Hormone replacement therapy; Z79.899 Other long term (current) drug therapy; Z82.49 Family history of ischemic heart disease and other diseases of the circulatory system; Z83.3 Family history of diabetes mellitus; Z85.21 Personal history of malignant neoplasm of larynx; Z86.14 Personal history of Methicillin resistant Staphylococcus aureus infection; Z87.11 Personal history of peptic ulcer disease; Z87.828 Personal history of other (healed) physical injury and trauma; Z87.891 Personal history of nicotine dependence; Z90.49 Acquired absence of other specified parts of digestive tract; Z90.710 Acquired absence of both cervix and uterus; Z95.5 Presence of coronary angioplasty implant and graft; I25.2 Old myocardial infarction; Z96.653 Presence of artificial knee joint, bilateral; Z98.84 Bariatric surgery status; R79.89 Other specified abnormal findings of blood chemistry; Z91.040 Latex allergy status; Z88.1 Allergy status to other antibiotic agents; K58.9 Irritable bowel syndrome, unspecified
CPT/HCPCS: 36415; 71046; 74177; 78452; 80048; 80053; 81003; 82607; 82747; 83690; 83735; 83880; 84484; 85025; 85610; 85730; 87635; 93005; 93017; 93308; 93458; 96374; 99285

== ENCOUNTER 2021-04-15 22:17 | Inpatient (IN) | payer MEDICARE ==
[2021-04-15] MEDS ORDERED: SODIUM CHLORIDE 0.9% 1,000 ML IV STA (22:19)
[2021-04-15] MEDS ORDERED: ALBUTEROL HFA INHALER INHALATION STA (22:26)
[2021-04-15] MEDS: METOPROLOL TARTRATE 5 MG/5 ML VIAL IVP SCH (23:06)
[2021-04-15 23:30] LABS: Basophils # (A) 0.1 k/uL (0-0.2); Basophils % (A) 2 %; Eosinophils # (A) 0.2 k/uL (0-0.7); Eosinophils % (A) 2 %; HCT 40.8 % (34.0-46.0); Hypochromasia Moderate; Lymphocytes # (A) 2.6 k/uL (1.0-4.8); Lymphocytes % (A) 35 %; MCH 31.2 pg (25.0-35.0); MCHC 31.3 g/dL (31.0-37.0); Mean Platelet Volume 7.9; Monocytes # (A) 0.6 k/uL (0-1.0); Monocytes % (A) 8 %; Neutrophils # (A) 3.7 k/uL (1.3-7.7); Neutrophils % (A) 51 %; Platelet Count 428 k/uL (150-450); RBC 4.09 m/uL (3.80-5.40); RDW 14.1 % (11.5-15.5); WBC 7.3 k/uL (3.8-10.6)
[2021-04-15 23:44] LABS: ALT 16 U/L (4-34); AST 33 U/L (14-36); African American GFR (CKD) >90 (>60 ml/min/1.73 sqM); Albumin 3.6 g/dL (3.5-5.0); Alkaline Phosphatase 127 U/L (38-126); Anion Gap 17 mmol/L; Blood Urea Nitrogen 5 mg/dL (7-17); Calcium 8.7 mg/dL (8.4-10.2); Carbon Dioxide 14 mmol/L (22-30); Chloride 107 mmol/L (98-107); Glucose 119 mg/dL (74-99); Non-African American GFR(CKD) 84 (>60 ml/min/1.73 sqM); Potassium 3.4 mmol/L (3.5-5.1); Sodium 138 mmol/L (137-145); Total Bilirubin 0.7 mg/dL (0.2-1.3); Total Protein 7.2 g/dL (6.3-8.2)
[2021-04-15 23:55] LABS: HGB 12.8 gm/dL (11.4-16.0); MCV 99.9 fL (80.0-100.0)
--- NOTE | 2021-04-16 00:03 | XR ---
EXAMINATION TYPE: XR chest 2V DATE OF EXAM: 04/15/2021 COMPARISON: 03/14/2021 HISTORY: Chest pain TECHNIQUE: FINDINGS: There is no heart failure nor confluent pneumonic infiltrate. Costophrenic angles are clear . Heart size is normal. There are chest leads. There is left shoulder prosthesis. Bony thorax appears intact. IMPRESSION: No active cardiopulmonary disease. No change.
[2021-04-16 00:18] LABS: INR 1.2 (<1.2); Partial Thromboplastin Time 23.4 sec (22.0-30.0); Prothrombin Time 12.3 sec (9.0-12.0)
--- NOTE | 2021-04-16 00:56 | ED ---
SOB HPI - General Chief Complaint: Shortness of Breath Stated Complaint: SOB Time Seen by Provider: 04/15/21 22:19 Source: patient, EMS, RN notes reviewed Mode of arrival: EMS Limitations: no limitations - History of Present Illness Initial Comments: Patient is a 75-year-old female that presents to the emergency department complaining of shortness of breath with onset about 1 hour prior to arrival. Patient notes she does have a history of A. fib coronary artery disease hypertension and other comorbidities. Patient notes no history of COPD or asthm a. Patient notes that she recently had a cardiac catheterization done and a stent placed approximately 46 months ago. Patient was in mild respiratory distress stating that her chest felt tight. Patient denied any other issues or complaints. She denied any chest pain. She denied headache nausea vomiting diarrhea constipation fever fatigue chills. - Related Data Home Medications Medication Instructions Recorded Confirmed Levothyroxine Sodium [Synthroid] 200 mcg PO DAILY 01/12/19 04/15/21 LORazepam [Ativan] 0.5 mg PO HS PRN 11/25/20 04/15/21 Megestrol Acetate 40 mg PO BID 03/01/21 04/15/21 hydrOXYzine HCL [Atarax] 10 mg PO HS 03/01/21 04/15/21 Nitroglycerin Sl Tabs [Nitrostat] 0.4 mg SL Q5M PRN 04/15/21 04/15/21 Previous Rx's Medication Instructions Recorded Ondansetron Odt [Zofran ODT] 4 mg PO Q8HR PRN #10 tab 12/04/20 Apixaban [Eliquis] 5 mg PO BID #60 tab 01/12/21 Calcium Carbonate [Tums] 500 mg PO QID PRN tab 01/12/21 Metoprolol Tartrate [Lopressor] 25 mg PO BID #60 tab 01/12/21 HYDROcodone/APAP 10-325MG [Ashley 1 tab PO BID #0 03/06/21 10-325] Cholecalciferol [Vitamin D3 (25 25 mcg PO DAILY #30 tablet 03/21/21 Mcg = 1000 Iu)] Cyanocobalamin [Vitamin B-12] 1,000 mcg PO DAILY #30 tab 03/21/21 Dicyclomine [Bentyl] 20 mg PO QID 15 Days #60 tab 03/21/21 Losartan [Cozaar] 25 mg PO DAILY@1800 #30 tab 03/21/21 Pantoprazole [Protonix] 40 mg PO BID #30 tab 03/21/21 Allergies Allergy/AdvReac Type Severity Reaction Status Date / Time latex Allergy Unknown Verified 04/15/21 22:55 vancomycin Allergy Rash/Hives Verified 04/15/21 22:55 Review of Systems ROS Statement: Those systems with pertinent positive or pertinent negative responses have been documented in the HPI. ROS Other: All systems not noted in ROS Statement are negative. Past Medical History Past Medical History: Atrial Fibrillation, Coronary Artery Disease (CAD), Cancer, Eye Disorder, GERD/Reflux, GI Bleed, Hearing Disorder / Deafness, Hypertension, Musculoskeletal Disorder, Osteoarthritis (OA), Thyroid Disorder Additional Past Medical History / Comment(s): Peptic ulcer, chronic back pain, laryngeal cancer/tx-approx 20 yrs ago, head injury in 2012, cataract removal left eye. Pt states she has a hole in her left eardrum. 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 SHOULDER Past Surgical History: Bariatric Surgery, Bowel Resection, Cholecystectomy, Heart Catheterization, Heart Catheterization With Stent, Hysterectomy, Joint Replacement, Orthopedic Surgery Additional Past Surgical History / Comment(s): 1 stent, Bilateral knee replacement, left shoulder rotator cuff surgery, gastric bypass, D&C w/ corrective surgery, EGD/colonoscopy, laryngeal tumor removed 30 radiation treatments about 20 years ago, Ganglion Cysts both wrists.PAIN CLINIC INJECTIONS, colostomy 06/2020 w/ reversal in August Past Anesthesia/Blood Transfusion Reactions: No Reported Reaction Date of Last Stent Placement:: 2003 Past Psychological History: Anxiety, Depression, Panic Disorder Smoking Status: Former smoker Past Alcohol Use History: Occasional Past Drug Use History: None Reported - Past Family History Mother Family Medical History: Cancer, Congestive Heart Failure (CHF), Diabetes Mellitus, Hypertension Additional Family Medical History / Comment(s): Mother passed at 93. Father Family Medical History: Myocardial Infarction ([place]) Additional Family Medical History / Comment(s): Father of a [place] at the age of 39 yrs. Sister(s) Family Medical History: Cancer Brother(s) Family Medical History: Cancer, Myocardial Infarction ([place]) General Exam Limitations: no limitations General appearance: alert, in no apparent distress Head exam: Present: atraumatic, normocephalic, normal inspection Eye exam: Present: normal appearance, PERRL, EOMI. Absent: scleral icterus, conjunctival injection, periorbital swelling ENT exam: Present: normal exam, mucous membranes moist Neck exam: Present: normal inspection Respiratory exam: Present: normal lung sounds bilaterally. Absent: respiratory distress, wheezes, rales, rhonchi, stridor Cardiovascular Exam: Present: regular rate, tachycardia, irregular rhythm, normal heart sounds. Absent: systolic murmur, diastolic murmur, rubs, gallop, clicks GI/Abdominal exam: Present: soft, normal bowel sounds. Absent: distended, tenderness, guarding, rebound, rigid Extremities exam: Present: normal inspection, full ROM, normal capillary refill. Absent: tenderness, pedal edema, joint swelling, calf tenderness Neurological exam: Present: alert, oriented X3 Psychiatric exam: Present: normal affect, normal mood Skin exam: Present: warm, dry, intact, normal color. Absent: rash Course Vital Signs 04/15/21 04/15/21 04/16/21 22:58 23:00 00:15 Temperature 98.3 F Pulse Rate 169 H 108 H 92 Respiratory 22 18 16 Rate Blood Pressure 148/110 112/99 O2 Sat by Pulse 97 97 98 Oximetry Procedures - [place] Protocol (Time Out) Nurse: Kyrie Calabrese Medical Decision Making - Medical Decision Making 75-year-old female complaining of shortness of breath onset 1 hour prior to arrival. Patient has history of A. fib with rapid ventricular rate upon arrival. Heart rate was anywhere from 140-190. 5 mg of metoprolol was ordered. Heart rate dropped to acceptable range from mid 80s to low 100s. Labs, EKG, chest x-ray, 1 L normal saline, albuterol inhaler ordered. Labs: CBC unremarkable, elevated d-dimer at 1.48, lactic acid 8.3, anion gap 17 Due to elevated lactic acid and elevated d-dimer CT of the abdomen and pelvis and chest ordered. Given patient's medical history and presenting symptoms patient will be admitted. Case discussed with Dr. Mckinney - Lab Data Result diagrams: 04/15/21 22:57 04/15/21 22:57 Lab Results 04/15/21 04/15/21 04/15/21 Range/Units 22:57 22:57 22:57 WBC 7.3 (3.8-10.6) k/uL RBC 4.09 (3.80-5.40) m/uL Hgb 12.8 D (11.4-16.0) gm/dL Hct 40.8 (34.0-46.0) % MCV 99.9 D (80.0-100.0) fL MCH 31.2 (25.0-35.0) pg MCHC 31.3 (31.0-37.0) g/dL RDW 14.1 (11.5-15.5) % Plt Count 428 (150-450) k/uL MPV 7.9 Neutrophils % 51 % Lymphocytes % 35 % Monocytes % 8 % Eosinophils % 2 % Basophils % 2 % Neutrophils # 3.7 (1.3-7.7) k/uL Lymphocytes # 2.6 (1.0-4.8) k/uL Monocytes # 0.6 (0-1.0) k/uL Eosinophils # 0.2 (0-0.7) k/uL Basophils # 0.1 (0-0.2) k/uL Hypochromasia Moderate PT 12.3 H (9.0-12.0) sec INR 1.2 H (<1.2) APTT 23.4 (22.0-30.0) sec D-Dimer 1.48 H (<0.60) mg/L FEU Sodium 138 (137-145) mmol/L Potassium 3.4 L (3.5-5.1) mmol/L Chloride 107 (98-107) mmol/L Carbon Dioxide 14 L (22-30) mmol/L Anion Gap 17 mmol/L BUN 5 L (7-17) mg/dL Creatinine 0.71 (0.52-1.04) mg/dL Est GFR (CKD-EPI)AfAm >90 (>60 ml/min/1.73 sqM) Est GFR (CKD-EPI)NonAf 84 (>60 ml/min/1.73 sqM) Glucose 119 H (74-99) mg/dL Plasma Lactic Acid Anthony (0.7-2.0) mmol/L Calcium 8.7 (8.4-10.2) mg/dL Total Bilirubin 0.7 (0.2-1.3) mg/dL AST 33 (14-36) U/L ALT 16 (4-34) U/L Alkaline Phosphatase 127 H (38-126) U/L Troponin I (0.000-0.034) ng/mL NT-Pro-B Natriuret Pep pg/mL Total Protein 7.2 (6.3-8.2) g/dL Albumin 3.6 (3.5-5.0) g/dL Coronavirus (PCR) (Not Detectd) Influenza Type A (PCR) (Not Detectd) Influenza Type B (PCR) (Not Detectd) RSV (PCR) (Not Detectd) SARS-CoV-2 (PCR) (Not Detectd) 04/15/21 04/15/21 04/15/21 Range/Units 22:57 22:57 23:00 WBC (3.8-10.6) k/uL RBC (3.80-5.40) m/uL Hgb (11.4-16.0) gm/dL Hct (34.0-46.0) % MCV (80.0-100.0) fL MCH (25.0-35.0) pg MCHC (31.0-37.0) g/dL RDW (11.5-15.5) % Plt Count (150-450) k/uL MPV Neutrophils % % Lymphocytes % % Monocytes % % Eosinophils % % Basophils % % Neutrophils # (1.3-7.7) k/uL Lymphocytes # (1.0-4.8) k/uL Monocytes # (0-1.0) k/uL Eosinophils # (0-0.7) k/uL Basophils # (0-0.2) k/uL Hypochromasia PT (9.0-12.0) sec INR (<1.2) APTT (22.0-30.0) sec D-Dimer (<0.60) mg/L FEU Sodium (137-145) mmol/L Potassium (3.5-5.1) mmol/L Chloride (98-107) mmol/L Carbon Dioxide (22-30) mmol/L Anion Gap mmol/L BUN (7-17) mg/dL Creatinine (0.52-1.04) mg/dL Est GFR (CKD-EPI)AfAm (>60 ml/min/1.73 sqM) Est GFR (CKD-EPI)NonAf (>60 ml/min/1.73 sqM) Glucose (74-99) mg/dL Plasma Lactic Acid Anthony (0.7-2.0) mmol/L Calcium (8.4-10.2) mg/dL Total Bilirubin (0.2-1.3) mg/dL AST (14-36) U/L ALT (4-34) U/L Alkaline Phosphatase (38-126) U/L Troponin I <0.012 (0.000-0.034) ng/mL NT-Pro-B Natriuret Pep 870 pg/mL Total Protein (6.3-8.2) g/dL Albumin (3.5-5.0) g/dL Coronavirus (PCR) Not Detected (Not Detectd) Influenza Type A (PCR) (Not Detectd) Influenza Type B (PCR) (Not Detectd) RSV (PCR) (Not Detectd) SARS-CoV-2 (PCR) (Not Detectd) 04/15/21 04/15/21 Range/Units 23:34 23:34 WBC (3.8-10.6) k/uL RBC (3.80-5.40) m/uL Hgb (11.4-16.0) gm/dL Hct (34.0-46.0) % MCV (80.0-100.0) fL MCH (25.0-35.0) pg MCHC (31.0-37.0) g/dL RDW (11.5-15.5) % Plt Count (150-450) k/uL MPV Neutrophils % % Lymphocytes % % Monocytes % % Eosinophils % % Basophils % % Neutrophils # (1.3-7.7) k/uL Lymphocytes # (1.0-4.8) k/uL Monocytes # (0-1.0) k/uL Eosinophils # (0-0.7) k/uL Basophils # (0-0.2) k/uL Hypochromasia PT (9.0-12.0) sec INR (<1.2) APTT (22.0-30.0) sec D-Dimer (<0.60) mg/L FEU Sodium (137-145) mmol/L Potassium (3.5-5.1) mmol/L Chloride (98-107) mmol/L Carbon Dioxide (22-30) mmol/L Anion Gap mmol/L BUN (7-17) mg/dL Creatinine (0.52-1.04) mg/dL Est GFR (CKD-EPI)AfAm (>60 ml/min/1.73 sqM) Est GFR (CKD-EPI)NonAf (>60 ml/min/1.73 sqM) Glucose (74-99) mg/dL Plasma Lactic Acid Anthony 8.3 H* (0.7-2.0) mmol/L Calcium (8.4-10.2) mg/dL Total Bilirubin (0.2-1.3) mg/dL AST (14-36) U/L ALT (4-34) U/L Alkaline Phosphatase (38-126) U/L Troponin I (0.000-0.034) ng/mL NT-Pro-B Natriuret Pep pg/mL Total Protein (6.3-8.2) g/dL Albumin (3.5-5.0) g/dL Coronavirus (PCR) (Not Detectd) Influenza Type A (PCR) Not Detected (Not Detectd) Influenza Type B (PCR) Not Detected (Not Detectd) RSV (PCR) Not Detected (Not Detectd) SARS-CoV-2 (PCR) Not Detected (Not Detectd) - EKG Data -: EKG Interpreted by Nm EKG shows normal: sinus rhythm Rate: normal EKG Comments: Ventricular rate 90 bpm, TN interval 218 ms, QRS duration 84 ms, QTC 489 ms, sinus rhythm with first-degree AV block with occasional premature ventricular complexes and premature atrial complexes. Nonspecific T-wave abnormality, abnormal ECG. - Radiology Data Radiology results: report reviewed, image reviewed Chest x-ray: No active cardiopulmonary disease. No change. CT of the abdomen and pelvis: Previous surgery. Scoliotic deformity and subluxation formation lumbar spine. No acute abnormality in the abdomen pelvis. There is clearing of the minimal stranding surrounding the ascending colon compared to last exam. Critical Care Time Critical Care Time: Yes Total Critical Care Time: 35 Critical Care Time: Upon arrival patient was in mild respiratory distress heart rate in the 180s to 190s, history of A. fib on blood thinners. 5 mg of metoprolol given brought her heart rate down to acceptable range. Fluids replenished. Patient states she is feeling better upon reevaluation. Disposition Clinical Impression: Hypokalemia, Atrial fibrillation with RVR, Dehydration, Shortness of breath Disposition: ADMITTED IP TO THIS HOSP Is patient prescribed a controlled substance at d/c from ED?: No Referrals: Joey Valdez MD [Primary Care Provider] - 1-2 days Time of Disposition: 02:11
--- NOTE | 2021-04-16 01:23 | CT ---
EXAMINATION TYPE: CT abdomen pelvis w con DATE OF EXAM: 04/16/2021 COMPARISON: 03/18/2021 HISTORY: abd pain CT DLP: 671.40 mGycm Automated exposure control for dose reduction was used. CONTRAST: Performed with IV Contrast, patient injected with 100 mL of Isovue 300. The lung bases are clear. There is no pleural effusion. Heart size is fairly normal. There is no jonah cardial effusion. There is previous gastric surgery. Liver is intact. There are clips from cholecystectomy. Pancreas ap pears normal. There is no evidence of pancreatic mass. Spleen is intact. The bile ducts are not dilat ed. There is no adrenal mass. Kidneys show satisfactory contrast opacification. There is no hydronephrosi s. Delayed images show normal renal excretion. There is no retroperitoneal adenopathy. Bladder disten ds smoothly. There is no inguinal hernia. There is no free fluid in the pelvis. There is no evidence of a pelvic mass. There is no mesenteric edema. There is no ascites or free air. There is no sign of a bowel obstructio n. Appendix not seen. No sign thickened appendix. There is a first-degree L4-5 spondylolisthesis. There is a retrolisthesis at L2-3. There is multileve l degenerative disc space narrowing and spur formation. There is no compression fracture. Bony pelvis is intact. The hip joints are intact. There is a mild thoracolumbar dextroscoliosis. IMPRESSION: Previous surgery. Scoliotic deformity and subluxation deformities in the lumbar spine. No acute abnor mality in the abdomen pelvis. There is clearing of the minimal stranding around the ascending colon c ompared to last exam.
[2021-04-16] MEDS ORDERED: MORPHINE SULFATE 4 MG/ML SYRINGE IVP STA (01:58)
[2021-04-16] MEDS ORDERED: NALOXONE 0.4 MG/ML 1 ML VIAL IV PRN (02:05)
[2021-04-16] MEDS ORDERED: POTASSIUM CHLORIDE ER 20 MEQ TAB.ER PO STA (02:09)
[2021-04-16] MEDS: SODIUM CHLORIDE 0.9% 1,000 ML IV SCH ×3 (02:50→20:05)
[2021-04-16] MEDS ORDERED: SODIUM CHLORIDE 0.9% 1,000 ML IV ONE (03:42)
--- NOTE | 2021-04-16 05:31 | P.HPIM ---
History of Present Illness H&P Date: 04/16/21 Chief Complaint: palpitation 75 year old female with cardiomyopathy , afib on eliquis (non compliant) Patient presented today due to sudden onset palpitations and chest tightness she was feeling dizzy notified her son who called EMS Patient claims that she is compliant with her meds except for Eliquis that she lost few days ago. she denies any focal neuro deficits, GI bleeding, abd pain , chest pain , fever, chills, or URI symptoms upon arrival to ED, her heart rate was in the 140-190 range, she was given IVP lopressor , and improved. she currently feeling almost back to normal she was recently discharged from the hospital Mar 28 , and had frequent hospital izations in last quarter of 2020. 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 , and colitis lactic acid elevated, CT abd , no acute pathology Review of Systems Pertinent positives as noted in HPI. All other systems were reviewed and are negative Past Medical History Past Medical History: Atrial Fibrillation, Coronary Artery Disease (CAD), Cancer, Eye Disorder, GERD/Reflux, GI Bleed, Hearing Disorder / Deafness, Hypertension, Musculoskeletal Disorder, Osteoarthritis (OA), Thyroid Disorder Additional Past Medical History / Comment(s): Peptic ulcer, chronic back pain, laryngeal cancer/tx-approx 20 yrs ago, head injury in 2012, cataract removal left eye. Pt states she has a hole in her left eardrum. 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 SHOULDER Past Surgical History: Bariatric Surgery, Bowel Resection, Cholecystectomy, Hear t Catheterization, Heart Catheterization With Stent, Hysterectomy, Joint Replacement, Orthopedic Surgery Additional Past Surgical History / Comment(s): 1 stent, Bilateral knee replacement, left shoulder rotator cuff surgery, gastric bypass, D&C w/ corrective surgery, EGD/colonoscopy, laryngeal tumor removed 30 radiation treatments about 20 years ago, Ganglion Cysts both wrists.PAIN CLINIC INJECTIONS, colostomy 06/2020 w/ reversal in August Past Anesthesia/Blood Transfusion Reactions: No Reported Reaction Date of Last Stent Placement:: 2003 Past Psychological History: Anxiety, Depression, Panic Disorder Smoking Status: Former smoker Past Alcohol Use History: Occasional Past Drug Use History: None Reported - Past Family History Mother Family Medical History: Cancer, Congestive Heart Failure (CHF), Diabetes Mellitus, Hypertension Additional Family Medical History / Comment(s): Mother passed at 93. Father Family Medical History: Myocardial Infarction ([place]) Additional Family Medical History / Comment(s): Father of a [place] at the age of 39 yrs. Sister(s) Family Medical History: Cancer Brother(s) Family Medical History: Cancer, Myocardial Infarction ([place]) Medications and Allergies Home Medications Medication Instructions Recorded Confirmed Type Levothyroxine Sodium [Synthroid] 200 mcg PO DAILY 01/12/19 04/15/21 History LORazepam [Ativan] 0.5 mg PO HS PRN 11/25/20 04/15/21 History Ondansetron Odt [Zofran ODT] 4 mg PO Q8HR PRN #10 tab 12/04/20 04/15/21 Rx Apixaban [Eliquis] 5 mg PO BID #60 tab 01/12/21 04/15/21 Rx Calcium Carbonate [Tums] 500 mg PO QID PRN tab 01/12/21 04/15/21 Rx Metoprolol Tartrate [Lopressor] 25 mg PO BID #60 tab 01/12/21 04/15/21 Rx Megestrol Acetate 40 mg PO BID 03/01/21 04/15/21 History hydrOXYzine HCL [Atarax] 10 mg PO HS 03/01/21 04/15/21 History HYDROcodone/APAP 10-325MG [Warner 1 tab PO BID #0 03/06/21 04/15/21 Rx 10-325] Cholecalciferol [Vitamin D3 (25 25 mcg PO DAILY #30 tablet 03/21/21 04/15/21 Rx Mcg = 1000 Iu)] Cyanocobalamin [Vitamin B-12] 1,000 mcg PO DAILY #30 tab 03/21/21 04/15/21 Rx Dicyclomine [Bentyl] 20 mg PO QID 15 Days #60 tab 03/21/21 04/15/21 Rx Losartan [Cozaar] 25 mg PO DAILY@1800 #30 tab 03/21/21 04/15/21 Rx Pantoprazole [Protonix] 40 mg PO BID #30 tab 03/21/21 04/15/21 Rx Nitroglycerin Sl Tabs [Nitrostat] 0.4 mg SL Q5M PRN 04/15/21 04/15/21 History Allergies Allergy/AdvReac Type Severity Reaction Status Date / Time latex Allergy Unknown Verified 04/15/21 22:55 vancomycin Allergy Rash/Hives Verified 04/15/21 22:55 Physical Exam Vitals: Vital Signs Temp Pulse Resp BP Pulse Ox 04/16/21 03:06 95 18 137/84 97 04/16/21 02:00 125 H 18 129/83 97 04/16/21 00:15 92 16 112/99 98 04/15/21 23:00 108 H 18 97 04/15/21 22:58 98.3 F 169 H 22 148/110 97 Intake and Output 04/15/21 04/15/21 04/16/21 14:59 22:59 06:59 Other: Weight 74.843 kg Constitutional: No acute distress, conversant, pleasant Eyes: Anicteric sclerae, moist conjunctiva, Pupils equal round reactive to light ENMT: NC/AT Oropharynx clear, no erythema, or exudates Neck: Supple, no masses, or JVD No carotid bruits No thyromegaly Lungs: Clear to auscultation Clear to percussion Normal respiratory effort, no accessory muscle use Cardiovascular: Heart irregular in rate and rhythm, No murmurs, gallops, or rubs No peripheral edema Abdominal: Soft Nontender, no guarding, rebound or rigidity Abdomen moving with respiration Normoactive bowel sounds No hepatomegaly, No splenomegaly No palpable mass No abdominal wall hernia noted Skin: Normal temperature, tone, texture, turgor No induration No subcutaneous nodules No rash, lesions No ulcers Extremities: No digital cyanosis No clubbing Pedal pulses intact and symmetrical Radial pulses intact and symmetrical No calf tenderness Psychiatric: Alert and oriented to person, place Appropriate affect fair judgement Neuro Muscles Strength 5/5 in all 4 extremities Sensation to light touch grossly present throughout Cranial nerves II-XII grossly intact Lymphatics: no palpable cervical or supraclavicular , or inguinal lymph nodes Results CBC & Chem 7: 04/15/21 22:57 04/15/21 22:57 Labs: Abnormal Lab Results - Last 24 Hours (Table) 04/15/21 04/15/21 04/15/21 Range/Units 22:57 22:57 23:34 PT 12.3 H (9.0-12.0) sec INR 1.2 H (<1.2) D-Dimer 1.48 H (<0.60) mg/L FEU Potassium 3.4 L (3.5-5.1) mmol/L Carbon Dioxide 14 L (22-30) mmol/L BUN 5 L (7-17) mg/dL Glucose 119 H (74-99) mg/dL Plasma Lactic Acid Anthony 8.3 H* (0.7-2.0) mmol/L Alkaline Phosphatase 127 H (38-126) U/L 04/16/21 Range/Units 02:25 PT (9.0-12.0) sec INR (<1.2) D-Dimer (<0.60) mg/L FEU Potassium (3.5-5.1) mmol/L Carbon Dioxide (22-30) mmol/L BUN (7-17) mg/dL Glucose (74-99) mg/dL Plasma Lactic Acid Anthony 5.8 H* (0.7-2.0) mmol/L Alkaline Phosphatase (38-126) U/L Assessment and Plan Assessment: afib with RVR elevated d dimer, non compliant with Eliquis for afib lactic acidosis hypokalemia plan patient heart rate improved with IVP lopressor resume homemeds resume eliquis check VQ scan in AM, paitent oxygen sat within normal limits monitor vital signs check echocardiogram cardiology eval IVF hydration with normal saline , patient received 1 L bolus , then repeat lactic acid still elevated , ordered another 1 L bolus continue with normal saline at 130 cc per hour replace K resp viral panel negative GI upset, Tums prn PPI hypertension , resume BP meds hypothyroid , resume levothyroxin h/o CMP with LVEF 35% , monitor lung exam to avoid fluid overload full code DVT PPX on eliquis
[2021-04-16] MEDS: HYDROcodone/APAP 10-325MG 1 EACH TAB PO SCH ×2 (06:52→22:21)
--- NOTE | 2021-04-16 08:31 | NM ---
EXAMINATION TYPE: NM pul vent and perfuse DATE OF EXAM: 04/16/2021 COMPARISON: Chest x-ray from yesterday HISTORY: Elevated d-dimer. Difficulty in breathing. History of tobacco use in the past. TECHNIQUE: Utilizing inhalation of 65.5 mCi Tc 99m DTPA aerosol and intravenous injection of 5.25 mC i of Tc 99m MAA, ventilation and perfusion images are acquired post injection in multiple projections . FINDINGS: Normal radiotracer distribution is noted in the lungs. There is no evidence of mismatched defects. IMPRESSION: Low scintigraphic evidence for acute pulmonary embolism
[2021-04-16] MEDS: LEVOTHYROXINE 100 MCG TAB PO SCH (09:08)
[2021-04-16] MEDS: METOPROLOL TARTRATE 25 MG TAB PO SCH ×2 (09:09→22:21)
[2021-04-16] MEDS: DICYCLOMINE 20 MG TAB PO SCH ×4 (09:09→22:22)
[2021-04-16] MEDS: PANTOPRAZOLE 40 MG TABLET PO SCH ×2 (09:09→22:20)
[2021-04-16] MEDS: APIXABAN 5 MG TAB PO SCH ×2 (09:09→22:20)
[2021-04-16] MEDS: MORPHINE SULFATE 4 MG/ML SYRINGE IV PRN ×2 (11:35→16:17)
--- NOTE | 2021-04-16 12:14 | P.PN ---
Progress Note - Text Progress Note Date: 04/16/21 Patient was seen and examined, doing well. HR currently stable. Awaiting cardiology evaluations.
[2021-04-16] MEDS ORDERED: LOSARTAN 25 MG TAB PO SCH (18:00)
[2021-04-16] MEDS: METOPROLOL TARTRATE 5 MG/5 ML VIAL IVP SCH ×2 (21:35→23:33)
[2021-04-16] MEDS: CALCIUM CARBONATE LIQUID 500 MG/5 ML CUP PO PRN (22:22)
[2021-04-17] MEDS: MORPHINE SULFATE 4 MG/ML SYRINGE IV PRN ×2 (00:39→05:23)
[2021-04-17] MEDS: SODIUM CHLORIDE 0.9% 1,000 ML IV SCH ×2 (02:26→09:04)
[2021-04-17] MEDS: LEVOTHYROXINE 100 MCG TAB PO SCH (05:22)
[2021-04-17] MEDS: METOPROLOL TARTRATE 5 MG/5 ML VIAL IVP SCH ×3 (07:30→07:38)
[2021-04-17 08:20] LABS: Basophils # (A) 0.1 k/uL (0-0.2); Basophils % (A) 1 %; Eosinophils # (A) 0.4 k/uL (0-0.7); Eosinophils % (A) 10 %; HCT 32.2 % (34.0-46.0); Hypochromasia Marked; Lymphocytes # (A) 2.2 k/uL (1.0-4.8); Lymphocytes % (A) 51 %; MCH 32.3 pg (25.0-35.0); MCHC 30.9 g/dL (31.0-37.0); MCV 104.3 fL (80.0-100.0); Macrocytosis Slight; Mean Platelet Volume 7.8; Monocytes # (A) 0.3 k/uL (0-1.0); Monocytes % (A) 8 %; Neutrophils # (A) 1.2 k/uL (1.3-7.7); Neutrophils % (A) 27 %; Platelet Count 243 k/uL (150-450); RBC 3.09 m/uL (3.80-5.40); WBC 4.3 k/uL (3.8-10.6)
[2021-04-17 08:30] LABS: ALT 12 U/L (4-34); AST 32 U/L (14-36); African American GFR (CKD) >90 (>60 ml/min/1.73 sqM); Albumin 2.4 g/dL (3.5-5.0); Alkaline Phosphatase 107 U/L (38-126); Anion Gap 3 mmol/L; Blood Urea Nitrogen 4 mg/dL (7-17); Calcium 7.8 mg/dL (8.4-10.2); Carbon Dioxide 22 mmol/L (22-30); Chloride 105 mmol/L (98-107); Glucose 83 mg/dL (74-99); Non-African American GFR(CKD) >90 (>60 ml/min/1.73 sqM); Potassium 3.3 mmol/L (3.5-5.1); Sodium 130 mmol/L (137-145); Total Protein 5.4 g/dL (6.3-8.2)
[2021-04-17] MEDS: DICYCLOMINE 20 MG TAB PO SCH ×4 (09:02→22:13)
[2021-04-17] MEDS: APIXABAN 5 MG TAB PO SCH ×2 (09:02→22:12)
[2021-04-17] MEDS: PANTOPRAZOLE 40 MG TABLET PO SCH ×2 (09:02→22:08)
[2021-04-17] MEDS: HYDROcodone/APAP 10-325MG 1 EACH TAB PO SCH ×2 (09:03→22:09)
[2021-04-17] MEDS: METOPROLOL TARTRATE 50 MG TAB PO SCH ×2 (09:08→22:12)
[2021-04-17] MEDS: CALCIUM CARBONATE LIQUID 500 MG/5 ML CUP PO PRN (09:09)
[2021-04-17] MEDS ORDERED: POTASSIUM CHLORIDE ER 20 MEQ TAB.ER PO STA (10:18)
--- NOTE | 2021-04-17 10:24 | P.PN ---
Subjective Progress Note Date: 04/17/21 Principal diagnosis: Palpitations Patient is feeling fine, she is ambulating without difficulties. No chest pain, sob or dizziness. Objective - Vital Signs Vital signs: Vital Signs Temp 98.3 F 04/17/21 09:04 Pulse 76 04/17/21 09:04 Resp 18 04/17/21 09:04 BP 104/64 04/17/21 09:04 Pulse Ox 98 04/17/21 09:04 Intake & Output 04/16/21 04/17/21 04/17/21 18:59 06:59 18:59 Intake Total 270 Balance 270 Weight 74.843 kg Intake: IV 10 Invasive Line 2 10 Oral 260 Other: Voiding Method Toilet Bedside Commode # Voids 2 - Exam Constitutional: No acute distress, conversant, pleasant Eyes:Anicteric sclerae, moist conjunctiva, no lid-lag, PERRLA, ENMT: Oropharynx clear, no erythema, exudates Neck: Supple, FROM, no masses, or JVD, No carotid bruits, No thyromegaly Lungs: Clear to auscultation, Clear to percussion, Normal respiratory effort, no accessory muscle use Cardiovascular: Heart regular in rate and rhythm, No murmurs, gallops, or rubs, No peripheral edema Abdominal: Soft, Nontender, no guarding, rebound or rigidity, Normoactive bowel sounds, No hepatomegaly, No splenomegaly, No palpable mass Skin: Normal temperature, tone, texture, turgor, no induration, No subcutaneous nodules, No rash, lesions, No ulcers Extremities: No digital cyanosis, No clubbing, Pedal pulses intact and symm etrical, Radial pulses intact and symmetrical, No calf tenderness Psychiatric: Alert and oriented to person, place and time, appropriate affect, intact judgement Neuro: Muscles Strength 5/5 in all 4 extremities, Sensation to light touch grossly present throughout, Cranial nerves II-XII grossly intact, no focal sensory deficits - Labs CBC & Chem 7: 04/17/21 07:50 04/17/21 07:50 Labs: Abnormal Lab Results - Last 24 Hours (Table) 04/17/21 04/17/21 Range/Units 07:50 07:50 RBC 3.09 L (3.80-5.40) m/uL Hgb 10.0 L D (11.4-16.0) gm/dL Hct 32.2 L (34.0-46.0) % MCV 104.3 H (80.0-100.0) fL MCHC 30.9 L (31.0-37.0) g/dL Neutrophils # 1.2 L (1.3-7.7) k/uL Sodium 130 L (137-145) mmol/L Potassium 3.3 L (3.5-5.1) mmol/L BUN 4 L (7-17) mg/dL Creatinine 0.44 L (0.52-1.04) mg/dL Calcium 7.8 L (8.4-10.2) mg/dL Total Protein 5.4 L (6.3-8.2) g/dL Albumin 2.4 L (3.5-5.0) g/dL Assessment and Plan Plan: A-fib with RVR with recent hx of stress induced CMP with LVEF 35% Resolved, currently in SR Seen by cardio, d/w signals intelligence analyst she won't be cleared for discharge today Cardio increased dose of losartan and metoprolol, doubled each. Check TSH, echocardiogram Dizziness and palpiations Likely sec to above V/Q scan negative for PE. Hypokalemia Replaced GI upset, Tums prn PPI Hypertension Stable, resume BP meds Hypothyroid Check TSH, resume levothyroxin full code DVT PPX on eliquis
[2021-04-17] MEDS ORDERED: POTASSIUM CHLORIDE 10 MEQ in WATER FOR INJECTION 1 100ML.BAG IVPB ONE (11:30)
--- NOTE | 2021-04-17 11:38 | P.CRDCN ---
History of Present Illness History of present illness: HISTORY OF PRESENT ILLNESS: This is a 75-year-old female with a past medical history significant for nonobstructive CAD, atrial fibrillation, hypertension, hyperlipidemia, jose schemic cardiomyopathy, and diverticulitis with history of colectomy and colostomy placement and subsequent reversal of colostomy in October 2020. 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 She was last seen in the office in 2012. We have been asked to see the patient in consultation for atrial fibrillation. She states she was watching TV yesterday, and had acute onset of palpitations and shortness of breath. She states she could not catch her breath. She had associated lightheadedness and dizziness. Her son called EMS. She denies any changes to her medications. She takes her medications as prescribed, except she did miss doses of her Eliquis. EKG via EMS reviewed and revealed atrial fibrillation with RVR. She was given IV Lopressor. She is now maintaining sinus mechanism. Her symptoms have improved. Patient recently admitted 03/17/2021 for chest pain and worsening cardiomyopathy, She underwent a heart catheterization and that revealed mild nonobstructive coronary artery disease DIAGNOSTICS -EKG reveals sinus rhythm, heart rate 90, first degree AV block, PVC, nonspecific T-wave abnormality. -V/Q scan low probability for pulmonary embolism -Chest xray no acute cardiopulmonary process. -Laboratory data: WBC 4.3, hemoglobin 10, platelets 243, sodium 1:30, potassium 3.3, BUN 4, serum, and 0.4, magnesium 1.3, TSH within normal limits -Current home cardiac medications include metoprolol tartrate 25 mg twice a day, losartan 50 mg daily, aspirin 81 mg daily, and Eliquis 5mg twice a day -03/15/21 Echo shows worsened EF 35-40% however mainly apical hypokineis with sparing of the base concerning for Takotsubo's cardiomyopathy. -03/16/21 Lanie revealed large fixed defect involving the cardiac apex with small area of reversibility noted Cardiac catheterization history: -03/17/21- Mild non-obstructive CAD, 50% ostial of the first diag, mid and distal LAD mild disease only. - April 2020 revealing mild coronary artery disease. 30% mid LAD stenosis. Left circumflex with mild luminary irregularities. Mid RCA 30-40% stenosis. Ejection fraction at that time 45% with mild apical hypokinesis, questionable recovering Takotsubo cardiomyopathy. REVIEW OF SYSTEMS: At the time of my exam: CONSTITUTIONAL: Denies fever or chills. HEENT: Denies blurred vision, vision changes, or eye pain. Denies hemoptysis CARDIOVASCULAR: Denies chest pain. Denies orthopnea. Denies PND. Denies palpitations RESPIRATORY: Denies shortness of breath. GASTROINTESTINAL: Denies abdominal pain. Denies nausea or vomiting. HEMATOLOGIC: Denies bleeding disorders. GENITOURINARY: Denies any blood in urine. SKIN: Denies pruitis. Denies rash. PHYSICAL EXAM: VITAL SIGNS: Reviewed. GENERAL: Well-developed in no acute distress. HEENT: Head is normocephalic. Pupils are equal, round. Sclerae anicteric. Mucous membranes of the mouth are moist. Neck supple. No JVD or thyromegaly LUNGS: Respirations even and unlabored. Lungs essentially clear to auscultation bilaterally. HEART: Regular rate and rhythm. S1 and S2 heard. Systolic murmur noted. ABDOMEN: Soft. Nondistended. Nontender. EXTREMITIES: Normal range of motion. No clubbing or cyanosis. Peripheral pulses intact. No lower extremity edema NEUROLOGIC: Awake and alert. Oriented x 3. ASSESSMENT: Paroxysmal atrial fibrillation Nonobstructive coronary artery disease History of cardiomyopathy, ejection fraction 35-40% Hypertension Hyperlipidemia PLAN: Increase metoprolol tartrate to 50 mg twice a day Increase losartan to 50mg daily Obtain repeat limited echo Continue Eliquis 5 mg twice a day Continue cardiac telemetry Further recommendations based on clinical course Nurse practitioner note has been reviewed by physician. Signing provider agrees with the documented findings, assessment, and plan of care. Past Medical History Past Medical History: Atrial Fibrillation, Coronary Artery Disease (CAD), Cancer, Eye Disorder, GERD/Reflux, GI Bleed, Hearing Disorder / Deafness, Hypertension, Musculoskeletal Disorder, Osteoarthritis (OA), Thyroid Disorder Additional Past Medical History / Comment(s): Peptic ulcer, chronic back pain, laryngeal cancer/tx-approx 20 yrs ago, head injury in 2012, cataract removal left eye. Pt states she has a hole in her left eardrum. 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 SHOULDER Past Surgical History: Bariatric Surgery, Bowel Resection, Cholecystectomy, Heart Catheterization, Heart Catheterization With Stent, Hysterectomy, Joint Replacement, Orthopedic Surgery Additional Past Surgical History / Comment(s): 1 stent, Bilateral knee replacement, left shoulder rotator cuff surgery, gastric bypass, D&C w/ corrective surgery, EGD/colonoscopy, laryngeal tumor removed 30 radiation treatments about 20 years ago, Ganglion Cysts both wrists.PAIN CLINIC INJECTIONS, colostomy 06/2020 w/ reversal in August Past Anesthesia/Blood Transfusion Reactions: No Reported Reaction Date of Last Stent Placement:: 2003 Past Psychological History: Anxiety, Depression, Panic Disorder Additional Psychological History / Comment(s): pt lives alone in an apartment. Smoking Status: Former smoker Past Alcohol Use History: None Reported Additional Past Alcohol Use History / Comment(s): Pt started smoking in 1959 and quit in 1982, 1ppd. Past Drug Use History: None Reported - Past Family History Mother Family Medical History: Cancer, Congestive Heart Failure (CHF), Diabetes Mellitus, Hypertension Additional Family Medical History / Comment(s): Mother passed at 93. Father Family Medical History: Myocardial Infarction ([place]) Additional Family Medical History / Comment(s): Father of a [place] at the age of 39 yrs. Sister(s) Family Medical History: Cancer Brother(s) Family Medical History: Cancer, Myocardial Infarction ([place]) Medications and Allergies Home Medications Medication Instructions Recorded Confirmed Type Levothyroxine Sodium [Synthroid] 200 mcg PO DAILY 01/12/19 04/15/21 History LORazepam [Ativan] 0.5 mg PO HS PRN 11/25/20 04/15/21 History Ondansetron Odt [Zofran ODT] 4 mg PO Q8HR PRN #10 tab 12/04/20 04/15/21 Rx Apixaban [Eliquis] 5 mg PO BID #60 tab 01/12/21 04/15/21 Rx Calcium Carbonate [Tums] 500 mg PO QID PRN tab 01/12/21 04/15/21 Rx Metoprolol Tartrate [Lopressor] 25 mg PO BID #60 tab 01/12/21 04/15/21 Rx Megestrol Acetate 40 mg PO BID 03/01/21 04/15/21 History hydrOXYzine HCL [Atarax] 10 mg PO HS 03/01/21 04/15/21 History HYDROcodone/APAP 10-325MG [[place] 1 tab PO BID #0 03/06/21 04/15/21 Rx 10-325] Cholecalciferol [Vitamin D3 (25 25 mcg PO DAILY #30 tablet 03/21/21 04/15/21 Rx Mcg = 1000 Iu)] Cyanocobalamin [Vitamin B-12] 1,000 mcg PO DAILY #30 tab 03/21/21 04/15/21 Rx Dicyclomine [Bentyl] 20 mg PO QID 15 Days #60 tab 03/21/21 04/15/21 Rx Losartan [Cozaar] 25 mg PO DAILY@1800 #30 tab 03/21/21 04/15/21 Rx Pantoprazole [Protonix] 40 mg PO BID #30 tab 03/21/21 04/15/21 Rx Nitroglycerin Sl Tabs [Nitrostat] 0.4 mg SL Q5M PRN 04/15/21 04/15/21 History Allergies Allergy/AdvReac Type Severity Reaction Status Date / Time latex Allergy Unknown Verified 04/15/21 22:55 vancomycin Allergy Rash/Hives Verified 04/15/21 22:55 Physical Exam Vitals: Vital Signs Temp Pulse Pulse Resp BP BP Pulse Ox 04/17/21 06:51 133/55 04/17/21 03:45 97 F L 66 18 171/77 99 04/16/21 23:05 70 17 162/67 100 04/16/21 20:05 97.4 F L 71 18 177/88 98 04/16/21 16:16 73 20 154/72 100 04/16/21 11:36 98.1 F 71 18 168/82 99 04/16/21 08:00 97.9 F 88 18 157/74 92 L Intake and Output 04/16/21 04/17/21 04/17/21 22:59 06:59 14:59 Other: Voiding Method Bedside Commode Bedside Commode # Voids 1 2 Weight 74.843 kg Results 04/17/21 07:50 04/17/21 07:50 Current Medications Generic Name Dose Route Start Last Admin Trade Name Freq PRN Reason Stop Dose Admin Hydrocodone Bitart/Acetaminophen 1 each 04/16/21 09:00 04/16/21 22:21 Hydrocodone/Apap 10-325mg 1 Each Tab PO 1 each BID ALFREDO Administration Apixaban 5 mg 04/16/21 09:00 04/16/21 22:20 Apixaban 5 Mg Tab PO 5 mg BID ALFREDO Administration Protocol Calcium Carbonate/Glycine 500 mg 04/16/21 06:00 04/16/21 22:22 Calcium Carbonate Liquid 500 Mg/5 Ml Cup PO 500 mg TID-W/MEALS PRN Administration GI Upset Dicyclomine HCl 20 mg 04/16/21 09:00 04/16/21 22:22 Dicyclomine 20 Mg Tab PO Not Given QID [facility] Sodium Chloride 1,000 mls @ 130 mls/hr 04/16/21 02:15 04/17/21 02:26 Saline 0.9% IV Not Given .Q7H42M [facility] Levothyroxine Sodium 200 mcg 04/16/21 06:30 04/17/21 05:22 Levothyroxine 100 Mcg Tab PO 200 mcg DAILY@0630 [facility] Administration Losartan Potassium 25 mg 04/16/21 18:00 04/16/21 22:20 Losartan 25 Mg Tab PO 25 mg DAILY@1800 [facility] Administration Metoprolol Tartrate 25 mg 04/16/21 09:00 04/16/21 22:21 Metoprolol Tartrate 25 Mg Tab PO 25 mg BID ALFREDO Administration Morphine Sulfate 4 mg 04/16/21 02:05 04/17/21 05:23 Morphine Sulfate 4 Mg/Ml Syringe IV 4 mg Q4HR PRN Administration Severe Pain Naloxone HCl 0.2 mg 04/16/21 02:05 Naloxone 0.4 Mg/Ml 1 Ml Vial IV Q2M PRN Opioid Reversal Pantoprazole Sodium 40 mg 04/16/21 09:00 04/16/21 22:20 Pantoprazole 40 Mg Tablet PO 40 mg BID [facility] Administration Intake and Output 04/16/21 04/17/21 04/17/21 22:59 06:59 14:59 Other: Voiding Method Bedside Commode Bedside Commode # Voids 1 2 Weight 74.843 kg 04/15/21 22:57 04/15/21 22:57
[2021-04-17] MEDS ORDERED: ACETAMINOPHEN TAB 325 MG TAB PO PRN (14:49)
[2021-04-17] MEDS ORDERED: Potassium Replacement Protocol 1 EACH MISC MISCELLANE PRN (14:51)
[2021-04-17] MEDS ORDERED: Magnesium Replacement Protocol 1 EACH MISC MISCELLANE PRN (14:51)
--- NOTE | 2021-04-17 15:30 | US ---
EXAMINATION TYPE: US venous doppler duplex LE DATE OF EXAM: 04/17/2021 3:24 PM COMPARISON: US 2018 CLINICAL HISTORY: dvt. SIDE PERFORMED: Bilateral TECHNIQUE: The lower extremity deep venous system is examined utilizing real time linear array sonog charles with graded compression, doppler sonography and color-flow sonography. VESSELS IMAGED: Common Femoral Vein Deep Femoral Vein Greater Saphenous Vein * Femoral Vein Popliteal Vein Small Saphenous Vein * Proximal Calf Veins (* superficial vessels) Right Leg: Appears negative for DVT Left Leg: Appears negative for DVT IMPRESSION: Grayscale, color doppler, spectral doppler imaging performed of the deep veins of the lo wer extremities. There is normal flow, compressibility, vascular waveforms.
--- NOTE | 2021-04-17 15:38 | XR ---
EXAMINATION TYPE: XR chest 1V portable DATE OF EXAM: 04/17/2021 CLINICAL HISTORY: Difficulty breathing progress study. History of CHF. TECHNIQUE: Single AP portable semiupright view of the chest is obtained. COMPARISON: Chest x-ray from 2 days earlier FINDINGS: There is some chronic parenchymal changes bilaterally without suspicious focal airspace op acity, pleural effusion, or pneumothorax seen. Cardiac silhouette size is stable and within normal li mits with atherosclerotic thoracic aorta. Surgical changes left proximal humerus redemonstrated. Dege nerative change right glenohumeral joint again seen. IMPRESSION: Chronic changes without acute pulmonary process.
--- NOTE | 2021-04-17 15:39 | PN ---
PROGRESS NOTE DATE OF SERVICE: 04/17/2021 This 75-year-old woman, being followed by Dr. Valdez in the outpatient setting, was admitted with CHF, acute exacerbation paroxysmal atrial fibrillation. The metoprolol dose was increased and medication adjustments are being made. Cardiology is following the patient closely. The patient is complaining of shortness of breath at this time. The patient also had a V/Q scan, reviewed personally by me, that showed low probability. Lab mohamud, the patient's hemoglobin is 10, sodium is , potassium 3.3, and lactic acid is 8.3. D-dimer was 1.48. ASSESSMENT: 1. Shortness of breath, possibly secondary to atrial fibrillation. 2. Atrial fibrillation with fast ventricular rate. 3. History of coronary artery disease. 4. History of gastroesophageal reflux disease. 5. History of gastrointestinal bleed. 7. Hypertension. 8. History of degenerative joint disease. 9. Hypothyroidism. 10.History of peptic ulcer disease. 11.History of chronic back pain. 12.History of laryngeal cancer and treatment. 13.History of head injury. 14.History of MRSA, VRE. 15.History of bariatric surgery. 16.History of bowel resection. 17.History of cholecystectomy. 18.History of coronary artery disease, stent. 19.Obesity with body mass index 30.2. 20.Hyponatremia. 21.Hypokalemia. 22.Hypomagnesemia. 23.FULL CODE. RECOMMENDATIONS AND DISCUSSION: In this 75-year-old woman who presented with multiple complex medical issues, we will monitor the patient closely, continue the current medications, continue with the beta blockers. Will continue to monitor. I would also get a UA with micro. Will repeat magnesium and replace as well. Stop the IV fluids. Repeat x-ray. Guarded prognosis because of multiple complex medical issues. Further recommendations to follow. The BNP is only 870. Prognosis guarded. MMODL / IJN: [id number] / MTDD
[2021-04-17] MEDS ORDERED: LOSARTAN 25 MG TAB PO SCH (18:00)
[2021-04-17 19:25] LABS: Appearance,Urine Cloudy (Clear); Bacteria,Urine Rare /hpf; Bilirubin,Urine Negative (Negative); Blood,Urine Negative (Negative); Color,Urine Yellow; Glucose,Urine (UA) Negative (Negative); Hyaline Casts,Urine 14 /lpf (0-2); Ketones,Urine Negative (Negative); Leukocyte Esterase,Urine Large (Negative); Mucus,Urine Many /hpf; Nitrite,Urine Negative (Negative); Protein,Urine Trace (Negative); RBC,Urine 2 /hpf (0-5); Specific Gravity,Urine 1.026 (1.001-1.035); Squamous Epithelial Cell,Urine 10 /hpf (0-4); Urobilinogen,Urine <2.0 mg/dL (<2.0); WBC,Urine 6 /hpf (0-5)
[2021-04-18] MEDS: MORPHINE SULFATE 4 MG/ML SYRINGE IV PRN ×3 (01:16→10:55)
[2021-04-18] MEDS: MAGNESIUM SULFATE-D5W PMX 1 GM in DEXTROSE/WATER 1 100ML.BAG IVPB SCH ×3 (01:17→03:44)
[2021-04-18] MEDS: LEVOTHYROXINE 100 MCG TAB PO SCH (05:22)
[2021-04-18 06:17] VITALS: BP 149/80
[2021-04-18 07:55] VITALS: PULSE 46; RESP 16; TEMP 97.9
[2021-04-18 08:04] LABS: Basophils # (A) 0.1 k/uL (0-0.2); Basophils % (A) 1 %; Eosinophils # (A) 0.5 k/uL (0-0.7); Eosinophils % (A) 11 %; HCT 31.1 % (34.0-46.0); HGB 9.9 gm/dL (11.4-16.0); Hypochromasia Marked; Lymphocytes # (A) 2.3 k/uL (1.0-4.8); Lymphocytes % (A) 50 %; MCH 32.5 pg (25.0-35.0); MCHC 31.9 g/dL (31.0-37.0); MCV 101.8 fL (80.0-100.0); Macrocytosis Slight; Monocytes # (A) 0.4 k/uL (0-1.0); Monocytes % (A) 9 %; Neutrophils # (A) 1.2 k/uL (1.3-7.7); Neutrophils % (A) 27 %; Platelet Count 264 k/uL (150-450); RBC 3.06 m/uL (3.80-5.40); RDW 14.1 % (11.5-15.5); WBC 4.6 k/uL (3.8-10.6)
[2021-04-18] MEDS: APIXABAN 5 MG TAB PO SCH (08:54)
[2021-04-18] MEDS: DICYCLOMINE 20 MG TAB PO SCH (08:54)
[2021-04-18] MEDS: HYDROcodone/APAP 10-325MG 1 EACH TAB PO SCH (08:54)
[2021-04-18] MEDS: PANTOPRAZOLE 40 MG TABLET PO SCH (08:54)
[2021-04-18] MEDS: METOPROLOL TARTRATE 50 MG TAB PO SCH (08:54)
[2021-04-18 12:52] LABS: African American GFR (CKD) 103.3 (60.0-200.0); BUN/Creat Ratio 7.5 Ratio (12.00-20.00); Blood Urea Nitrogen 4.5 mg/dL (9.0-27.0); Calcium 8.2 mg/dL (8.7-10.3); Magnesium 2.3 mg/dL (1.5-2.4); Non-African American GFR(CKD) 89.2 (60.0-200.0)
--- NOTE | 2021-04-18 13:29 | P.PN ---
Subjective Progress Note Date: 04/18/21 HISTORY OF PRESENT ILLNESS: This is a 75-year-old female with a past medical history significant for nonobstructive CAD, atrial fibrillation, hypertension, hyperlipidemia, nonischem ic cardiomyopathy, and diverticulitis with history of colectomy and colostomy placement and subsequent reversal of colostomy in October 2020. 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 She was last seen in the office in 2012. We have been asked to see the patient in consultation for atrial fibrillation. She states she was watching TV yesterday, and had acute onset of palpitations and shortness of breath. She states she could not catch her breath. She had associated lightheadedness and dizziness. Her son called EMS. She denies any changes to her medications. She takes her medications as prescribed, except she did miss doses of her Eliquis. EKG via EMS reviewed and revealed atrial fibrillation with RVR. She was given IV Lopressor. She is now maintaining sinus mechanism. Her symptoms have improved. Patient recently admitted 03/17/2021 for chest pain and worsening card iomyopathy, She underwent a heart catheterization and that revealed mild nonobstructive coronary artery disease DIAGNOSTICS -EKG reveals sinus rhythm, heart rate 90, first degree AV block, PVC, nonsp ecific T-wave abnormality. -V/Q scan low probability for pulmonary embolism -Chest xray no acute cardiopulmonary process. -Laboratory data: WBC 4.3, hemoglobin 10, platelets 243, sodium 1:30, potassium 3.3, BUN 4, serum, and 0.4, magnesium 1.3, TSH within normal limits -Current home cardiac medications include metoprolol tartrate 25 mg twice a day, losartan 50 mg daily, aspirin 81 mg daily, and Eliquis 5mg twice a day -03/15/21 Echo shows worsened EF 35-40% however mainly apical hypokineis with s paring of the base concerning for Takotsubo's cardiomyopathy. -03/16/21 Lanie revealed large fixed defect involving the cardiac apex with small area of reversibility noted Cardiac catheterization history: -03/17/21- Mild non-obstructive CAD, 50% ostial of the first diag, mid and distal LAD mild disease only. - April 2020 revealing mild coronary artery disease. 30% mid LAD stenosis. Left circumflex with mild luminary irregularities. Mid RCA 30-40% stenosis. Ejection fraction at that time 45% with mild apical hypokinesis, questionable recovering Takotsubo cardiomyopathy. 04/18/2021 Patient examined this morning at the bedside. Patient denies chest pain or pressure. She denies short of breath. Patient's heart rate is controlled this morning. Vital signs are stable. PHYSICAL EXAM: VITAL SIGNS: Reviewed. GENERAL: Well-developed in no acute distress. NECK: Supple. No JVD or thyromegaly LUNGS: Respirations even and unlabored. Lungs essentially clear to auscultation bilaterally. HEART: Regular rate and rhythm. S1 and S2 heard. Systolic murmur noted. EXTREMITIES: Normal range of motion. No clubbing or cyanosis. Peripheral pulses intact. No lower extremity edema ASSESSMENT: Paroxysmal atrial fibrillation Nonobstructive coronary artery disease History of cardiomyopathy, ejection fraction 35-40% Hypertension Hyperlipidemia PLAN: Continue current cardiac medications Patient is stable for discharge home today from a cardiac standpoint We will sign off. Please reconsult if needed. Nurse practitioner note has been reviewed by physician. Signing provider agrees with the documented findings, assessment, and plan of care. Objective - Vital Signs Vital signs: Vital Signs Temp 97.9 F 04/18/21 07:53 Pulse 46 L 04/18/21 07:53 Resp 16 04/18/21 07:53 BP 149/80 04/18/21 00:18 Pulse Ox 97 04/18/21 07:53 Intake & Output 04/17/21 04/18/21 04/18/21 18:59 06:59 18:59 Intake Total 2080 120 Output Total 300 100 Balance 1780 -100 120 Intake: IV 720 Invasive Line 2 20 Potassium Chloride 10 meq 100 In Water For Injection 1 100ml.bag @ 100 mls/hr IVPB ONCE ONE Rx#: [id number] Sodium Chloride 0.9% 1, 600 000 ml @ 130 mls/hr IV . Q7H42M [facility] Rx#:[id number] Oral 1360 120 Output: Urine 300 100 Other: Voiding Method Bedside Commode # Voids 2 - Labs CBC & Chem 7: 04/18/21 07:50 04/18/21 07:50 Labs: Abnormal Lab Results - Last 24 Hours (Table) 04/17/21 04/17/21 04/18/21 Range/Units 07:50 19:11 07:50 RBC 3.06 L (3.80-5.40) m/uL Hgb 9.9 L (11.4-16.0) gm/dL Hct 31.1 L (34.0-46.0) % MCV 101.8 H (80.0-100.0) fL Neutrophils # 1.2 L (1.3-7.7) k/uL Anion Gap (10.00-18.00) mmol/L BUN (9.0-27.0) mg/dL BUN/Creatinine Ratio (12.00-20.00) Ratio Calcium (8.7-10.3) mg/dL Magnesium 1.3 L (1.6-2.3) mg/dL Urine Appearance Cloudy H (Clear) Urine Protein Trace H (Negative) Ur Leukocyte Esterase Large H (Negative) Urine WBC 6 H (0-5) /hpf Ur Squamous Epith Cells 10 H (0-4) /hpf Urine Bacteria Rare H (None) /hpf Hyaline Casts 14 H (0-2) /lpf Urine Mucus Many H (None) /hpf 04/18/21 Range/Units 07:50 RBC (3.80-5.40) m/uL Hgb (11.4-16.0) gm/dL Hct (34.0-46.0) % MCV (80.0-100.0) fL Neutrophils # (1.3-7.7) k/uL Anion Gap 7.00 L (10.00-18.00) mmol/L BUN 4.5 L (9.0-27.0) mg/dL BUN/Creatinine Ratio 7.50 L (12.00-20.00) Ratio Calcium 8.2 L (8.7-10.3) mg/dL Magnesium (1.6-2.3) mg/dL Urine Appearance (Clear) Urine Protein (Negative) Ur Leukocyte Esterase (Negative) Urine WBC (0-5) /hpf Ur Squamous Epith Cells (0-4) /hpf Urine Bacteria (None) /hpf Hyaline Casts (0-2) /lpf Urine Mucus (None) /hpf
--- NOTE | 2021-04-19 09:48 | P.DS ---
Providers Date of admission: 04/18/21 10:43 Expected date of discharge: 04/18/21 Attending physician: Compa Medina Consults: 04/16/21 12:12 Consult Physician Routine Consulting Provider: Durga Rojas Consult Reason/Comments: a-fib Do you want consulting provider notified?: Yes Primary care physician: Courtney Romero [facility] Hospital Course: Final diagnosis Shortness of breath, possibly secondary to atrial fibrillation Atrial fibrillation with fast ventricular rate history of coronary artery disease History of gastroesophageal reflux disease History of GI bleed Hypertension History of degenerative joint disease hypothyroidism History of peptic ulcer disease history of chronic back pain History of laryngeal cancer and treatment history of head injury history MRSA, VRE history of bariatric surgery History bowel resection History of cholecystectomy history of coronary artery disease, stent obesity with a body mass index of 30.2 Hyponatremia hypokalemia hypomagnesemia Full code Discharge disposition Patient is being discharged in a stable condition with guarded prognosis to home. Patient will follow-up with Dr. Valdez in the outpatient setting upon discharge. Patient is to follow up with cardiology in the next 1-2 weeks. Recommend repeat CBC and BMP along with magnesium in 2-3 days. Total time taken is greater than 35 minutes. Hospital course This is a 75-year-old female who was recently admitted with congestive heart failure acute exacerbation with paroxysmal atrial fibrillation and was being closely monitored. Patient was evaluated by cardiology and adjustments to medications have been made and patient will follow-up with Dr. Gramajo in the outpatient setting in the next 1-2 weeks. Patient had multiple electrolyte abnormalities which were replaced and within normal limits today. Recommend close outpatient follow-up with repeat labs in prescription provided. Patient states she feels better and is requesting to go home. Currently no reports of c hest pain, shortness of breath, or palpitations. Patient is afebrile. No reports of nausea or vomiting and patient is tolerating diet. Patient will be discharged to home today. Guarded prognosis On exam vital signs are stable. Cardio S1, S2 are muffled. Respiratory system shows diminished breath sounds at the bases with no wheezing or rhonchi noted. Abdomen is soft and nontender. Nervous system shows no focal deficits. Please refer to medication reconciliation sheet for a list of medications. Patient Condition at Discharge: Stable Plan - Discharge Summary Discharge Rx Participant: No New Discharge Prescriptions: New Metoprolol Tartrate [Lopressor] 50 mg PO BID 30 Days #60 tab Acetaminophen Tab [Tylenol] 650 mg PO Q6HR PRN tab PRN Reason: Fever And/ Or Pain Continue Levothyroxine Sodium [Synthroid] 200 mcg PO DAILY Ondansetron Odt [Zofran ODT] 4 mg PO Q8HR PRN #10 tab PRN Reason: Nausea Calcium Carbonate [Tums] 500 mg PO QID PRN tab PRN Reason: Heartburn Megestrol Acetate 40 mg PO BID hydrOXYzine HCL [Atarax] 10 mg PO HS Dicyclomine [Bentyl] 20 mg PO QID 15 Days #60 tab Nitroglycerin Sl Tabs [Nitrostat] 0.4 mg SL Q5M PRN PRN Reason: Chest Pain LORazepam [Ativan] 0.5 mg PO HS PRN PRN Reason: Anxiety/SLEEP Apixaban [Eliquis] 5 mg PO BID #60 tab HYDROcodone/APAP 10-325MG [[place] 10-325] 1 tab PO BID #0 Pantoprazole [Protonix] 40 mg PO BID #30 tab Cyanocobalamin [Vitamin B-12] 1,000 mcg PO DAILY #30 tab Cholecalciferol [Vitamin D3 (25 Mcg = 1000 Iu)] 25 mcg PO DAILY #30 tablet Changed Losartan [Cozaar] 50 mg PO DAILY@1800 30 Days #60 tab Discontinued Metoprolol Tartrate [Lopressor] 25 mg PO BID #60 tab Discharge Medication List Levothyroxine Sodium [Synthroid] 200 mcg PO DAILY 01/12/19 [History] LORazepam [Ativan] 0.5 mg PO HS PRN 11/25/20 [History] Ondansetron Odt [Zofran ODT] 4 mg PO Q8HR PRN #10 tab 12/04/20 [Rx] Apixaban [Eliquis] 5 mg PO BID #60 tab 01/12/21 [Rx] Calcium Carbonate [Tums] 500 mg PO QID PRN tab 01/12/21 [Rx] Megestrol Acetate 40 mg PO BID 03/01/21 [History] hydrOXYzine HCL [Atarax] 10 mg PO HS 03/01/21 [History] HYDROcodone/APAP 10-325MG [[place] 10-325] 1 tab PO BID #0 03/06/21 [Rx] Cholecalciferol [Vitamin D3 (25 Mcg = 1000 Iu)] 25 mcg PO DAILY #30 tablet 03/21/21 [Rx] Cyanocobalamin [Vitamin B-12] 1,000 mcg PO DAILY #30 tab 03/21/21 [Rx] Dicyclomine [Bentyl] 20 mg PO QID 15 Days #60 tab 03/21/21 [Rx] Pantoprazole [Protonix] 40 mg PO BID #30 tab 03/21/21 [Rx] Nitroglycerin Sl Tabs [Nitrostat] 0.4 mg SL Q5M PRN 04/15/21 [History] Acetaminophen Tab [Tylenol] 650 mg PO Q6HR PRN tab 04/18/21 [Rx] Losartan [Cozaar] 50 mg PO DAILY@1800 30 Days #60 tab 04/18/21 [Rx] Metoprolol Tartrate [Lopressor] 50 mg PO BID 30 Days #60 tab 04/18/21 [Rx] Follow up Appointment(s)/Referral(s): Joey Valdez MD [Primary Care Provider] - 1-2 days Donal Gramajo DO [STAFF PHYSICIAN] - 2 Weeks Ambulatory/Diagnostic Orders: Complete Blood Count w/diff [LAB.AMB] Time Frame: 2 Days, Location: None Selected Activity/Diet/Wound Care/Special Instructions: Activity Limited until follow-up Follow-up with primary care provider on discharge Follow-up with cardiology outpatient Continue taking medications as prescribed Repeat labs in 2-3 days Continue with potassium and magnesium rich foods and current diet Discharge Disposition: HOME WITH HOME HEALTH SERVICES
== END 2021-04-18 13:45 | disposition home health service (06) | DRG 309 ==
LOC: EC 22:17 → 3SCARD 04-16 02:09 → 5NMEDONC 04-17 12:47 → 3SCARD 04-17 21:13 → 4SSUR 04-17 22:36 → 6NMEDSUR 04-17 22:52 → OBSVTOIN 04-18 10:43
PROVIDERS: ADMIT Hospitalist; ATTEND Hospitalist
DX: I48.0 Paroxysmal atrial fibrillation (principal); E87.1 Hypo-osmolality and hyponatremia; E87.2 Acidosis; I42.8 Other cardiomyopathies; E03.9 Hypothyroidism, unspecified; Z20.822 Contact with and (suspected) exposure to COVID-19; E66.9 Obesity, unspecified; E78.5 Hyperlipidemia, unspecified; E83.42 Hypomagnesemia; I11.0 Hypertensive heart disease with heart failure; I25.10 Atherosclerotic heart disease of native coronary artery without angina pectoris; K52.9 Noninfective gastroenteritis and colitis, unspecified; E86.0 Dehydration; E87.6 Hypokalemia; F32.A Depression, unspecified; I50.9 Heart failure, unspecified; F41.0 Panic disorder [episodic paroxysmal anxiety]; H91.90 Unspecified hearing loss, unspecified ear; I44.0 Atrioventricular block, first degree; Z68.30 Body mass index [BMI] 30.0-30.9, adult; Z79.01 Long term (current) use of anticoagulants; Z79.890 Hormone replacement therapy; Z79.899 Other long term (current) drug therapy; Z82.49 Family history of ischemic heart disease and other diseases of the circulatory system; Z83.3 Family history of diabetes mellitus; Z85.21 Personal history of malignant neoplasm of larynx; Z86.14 Personal history of Methicillin resistant Staphylococcus aureus infection; Z87.11 Personal history of peptic ulcer disease; Z87.828 Personal history of other (healed) physical injury and trauma; Z87.891 Personal history of nicotine dependence; Z90.49 Acquired absence of other specified parts of digestive tract; Z90.710 Acquired absence of both cervix and uterus; Z91.14 Patient's other noncompliance with medication regimen; Z91.19 Patient's noncompliance with other medical treatment and regimen; Z93.3 Colostomy status; Z95.5 Presence of coronary angioplasty implant and graft; Z96.653 Presence of artificial knee joint, bilateral; Z98.84 Bariatric surgery status; Z88.1 Allergy status to other antibiotic agents; Z91.040 Latex allergy status; Z98.42 Cataract extraction status, left eye; Z98.41 Cataract extraction status, right eye; Z87.19 Personal history of other diseases of the digestive system
CPT/HCPCS: 36415; 71045; 71046; 74177; 78582; 80048; 80053; 81001; 83605; 83735; 83880; 84443; 84484; 85025; 85379; 85610; 85730; 87635; 87636; 93005; 93308; 93970; 94640; 96374; 99291

== ENCOUNTER 2021-05-03 10:15 | Inpatient (IN) | payer MEDICARE ==
--- NOTE | 2021-05-03 10:23 | ED ---
General Adult HPI - General Chief complaint: Altered Mental Status Stated complaint: Altered mental status Time Seen by Provider: 05/03/21 10:19 Source: patient, EMS, RN notes reviewed Mode of arrival: EMS Limitations: altered mental status, physical limitation - History of Present Illness Initial comments: Patient is a pleasant 75-year-old female presenting to the emergency department with altered mental status. Last known well was last night. Patient was found at 8:30 this morning altered. Patient only states "what's wrong tho". Patient otherwise will not answer other questions. Patient reportedly has recently discontinued her chronic pain medication. Patient does not follow commands. Unclear if history of similar symptoms previously. Patient did stool on herself. - Related Data Home Medications Medication Instructions Recorded Confirmed Levothyroxine Sodium [Synthroid] 200 mcg PO DAILY 01/12/19 05/03/21 LORazepam [Ativan] 0.5 mg PO HS PRN 11/25/20 05/03/21 Megestrol Acetate 40 mg PO BID 03/01/21 05/03/21 hydrOXYzine HCL [Atarax] 10 mg PO HS 03/01/21 05/03/21 Nitroglycerin Sl Tabs [Nitrostat] 0.4 mg SL Q5M PRN 04/15/21 05/03/21 Previous Rx's Medication Instructions Recorded Ondansetron Odt [Zofran ODT] 4 mg PO Q8HR PRN #10 tab 12/04/20 Apixaban [Eliquis] 5 mg PO BID #60 tab 01/12/21 Calcium Carbonate [Tums] 500 mg PO QID PRN tab 01/12/21 HYDROcodone/APAP 10-325MG [[place] 1 tab PO BID #0 03/06/21 10-325] Cholecalciferol [Vitamin D3 (25 25 mcg PO DAILY #30 tablet 03/21/21 Mcg = 1000 Iu)] Cyanocobalamin [Vitamin B-12] 1,000 mcg PO DAILY #30 tab 03/21/21 Dicyclomine [Bentyl] 20 mg PO QID 15 Days #60 tab 03/21/21 Pantoprazole [Protonix] 40 mg PO BID #30 tab 03/21/21 Acetaminophen Tab [Tylenol] 650 mg PO Q6HR PRN tab 04/18/21 Losartan [Cozaar] 50 mg PO DAILY@1800 30 Days #60 tab 04/18/21 Metoprolol Tartrate [Lopressor] 50 mg PO BID 30 Days #60 tab 04/18/21 Allergies Allergy/AdvReac Type Severity Reaction Status Date / Time latex Allergy Unknown Verified 05/03/21 10:56 vancomycin Allergy Rash/Hives Verified 05/03/21 10:56 Review of Systems ROS Statement: Those systems with pertinent positive or pertinent negative responses have been documented in the HPI. ROS Other: All systems not noted in ROS Statement are negative. Limitations: ROS unobtainable due to patients medical condition Past Medical History Past Medical History: Atrial Fibrillation, Coronary Artery Disease (CAD), Cancer, Eye Disorder, GERD/Reflux, GI Bleed, Hearing Disorder / Deafness, Hypertension, Musculoskeletal Disorder, Osteoarthritis (OA), Thyroid Disorder Additional Past Medical History / Comment(s): Peptic ulcer, chronic back pain, laryngeal cancer/tx-approx 20 yrs ago, head injury in 2012, cataract removal left eye. Pt states she has a hole in her left eardrum. 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 SHOULDER Past Surgical History: Bariatric Surgery, Bowel Resection, Cholecystectomy, Heart Catheterization, Heart Catheterization With Stent, Hysterectomy, Joint Replacement, Orthopedic Surgery Additional Past Surgical History / Comment(s): 1 stent, Bilateral knee replacement, left shoulder rotator cuff surgery, gastric bypass, D&C w/ corrective surgery, EGD/colonoscopy, laryngeal tumor removed 30 radiation treatments about 20 years ago, Ganglion Cysts both wrists.PAIN CLINIC INJECTIO NS, colostomy 06/2020 w/ reversal in August Past Anesthesia/Blood Transfusion Reactions: No Reported Reaction Date of Last Stent Placement:: 2003 Past Psychological History: Anxiety, Depression, Panic Disorder Additional Psychological History / Comment(s): pt lives alone in an apartment. Smoking Status: Former smoker Past Alcohol Use History: None Reported Additional Past Alcohol Use History / Comment(s): Pt started smoking in 1959 and quit in 1982, 1ppd. Past Drug Use History: None Reported - Past Family History Mother Family Medical History: Cancer, Congestive Heart Failure (CHF), Diabetes Mellitus, Hypertension Additional Family Medical History / Comment(s): Mother passed at 93. Father Family Medical History: Myocardial Infarction ([place]) Additional Family Medical History / Comment(s): Father of a [place] at the age of 39 yrs. Sister(s) Family Medical History: Cancer Brother(s) Family Medical History: Cancer, Myocardial Infarction ([place]) General Exam Limitations: altered mental status, physical limitation General appearance: alert, other (Does not answer questions. Does not follow commands.) Head exam: Present: atraumatic Eye exam: Present: normal appearance, PERRL, EOMI ENT exam: Present: normal oropharynx Neck exam: Present: normal inspection Respiratory exam: Present: normal lung sounds bilaterally Cardiovascular Exam: Present: regular rate, normal rhythm GI/Abdominal exam: Present: soft. Absent: tenderness Extremities exam: Present: normal inspection Neurological exam: Present: alert, altered Expanded Neurological exam: Present: protecting the airway, other (Not answering questions or following commands. No flaccid weakness. Difficult to examine, especially lower extremities. Unable to examine sensation.) Motor strength exam: RUE: 5, LUE: 5, RLE: 5 (Unable to fully examine), LLE: 5 (Unable to fully examine) Eye Response: (4) open spontaneously Motor Response: (4) withdraws to pain Verbal Response: (3) inappropriate words Psychiatric exam: Absent: homicidal ideation Skin exam: Present: normal color. Absent: rash Course Vital Signs 05/03/21 05/03/21 10:30 11:27 Temperature 97.9 F Pulse Rate 71 73 Respiratory 20 12 Rate Blood Pressure 130/116 113/55 O2 Sat by Pulse 97 94 L Oximetry EKG Findings - EKG Comments: EKG Findings:: Sinus rhythm 390. For screening AV block SC 216. QRS 70. QT 426. QTc 521. Normal axis. Low QRS voltage. Nonspecific ST-T. Medical Decision Making - Medical Decision Making Patient reevaluated and resting comfortably in bed. Patient awoke and and still acting and appropriate however not as restless. Nursing staff did speak with family who states patient has had similar episodes previously associated with withdrawal - Lab Data Result diagrams: 05/03/21 10:49 05/03/21 10:49 Lab Results 05/03/21 05/03/21 05/03/21 Range/Units 10:20 10:49 10:49 WBC 11.5 H (3.8-10.6) k/uL RBC 3.86 (3.80-5.40) m/uL Hgb 12.0 (11.4-16.0) gm/dL Hct 38.7 (34.0-46.0) % MCV 100.3 H (80.0-100.0) fL MCH 31.2 (25.0-35.0) pg MCHC 31.1 (31.0-37.0) g/dL RDW 17.1 H (11.5-15.5) % Plt Count 330 (150-450) k/uL MPV 9.8 Neutrophils % 77 % Lymphocytes % 15 % Monocytes % 3 % Eosinophils % 4 % Basophils % 1 % Neutrophils # 8.9 H (1.3-7.7) k/uL Lymphocytes # 1.7 (1.0-4.8) k/uL Monocytes # 0.3 (0-1.0) k/uL Eosinophils # 0.4 (0-0.7) k/uL Basophils # 0.1 (0-0.2) k/uL Hypochromasia Marked Anisocytosis Slight Macrocytosis Slight PT 12.0 (9.0-12.0) sec INR 1.1 (<1.2) APTT 24.1 (22.0-30.0) sec Sodium (137-145) mmol/L Potassium (3.5-5.1) mmol/L Chloride (98-107) mmol/L Carbon Dioxide (22-30) mmol/L Anion Gap mmol/L BUN (7-17) mg/dL Creatinine (0.52-1.04) mg/dL Est GFR (CKD-EPI)AfAm (>60 ml/min/1.73 sqM) Est GFR (CKD-EPI)NonAf (>60 ml/min/1.73 sqM) Glucose (74-99) mg/dL POC Glucose (mg/dL) 91 (75-99) mg/dL POC Glu [place] Master ID Henriquemelissa Matilda Calcium (8.4-10.2) mg/dL Total Bilirubin (0.2-1.3) mg/dL AST (14-36) U/L ALT (4-34) U/L Alkaline Phosphatase (38-126) U/L Troponin I (0.000-0.034) ng/mL Total Protein (6.3-8.2) g/dL Albumin (3.5-5.0) g/dL 05/03/21 05/03/21 Range/Units 10:49 10:49 WBC (3.8-10.6) k/uL RBC (3.80-5.40) m/uL Hgb (11.4-16.0) gm/dL Hct (34.0-46.0) % MCV (80.0-100.0) fL MCH (25.0-35.0) pg MCHC (31.0-37.0) g/dL RDW (11.5-15.5) % Plt Count (150-450) k/uL MPV Neutrophils % % Lymphocytes % % Monocytes % % Eosinophils % % Basophils % % Neutrophils # (1.3-7.7) k/uL Lymphocytes # (1.0-4.8) k/uL Monocytes # (0-1.0) k/uL Eosinophils # (0-0.7) k/uL Basophils # (0-0.2) k/uL Hypochromasia Anisocytosis Macrocytosis PT (9.0-12.0) sec INR (<1.2) APTT (22.0-30.0) sec Sodium 137 (137-145) mmol/L Potassium 3.2 L (3.5-5.1) mmol/L Chloride 106 (98-107) mmol/L Carbon Dioxide 17 L (22-30) mmol/L Anion Gap 14 mmol/L BUN 20 H (7-17) mg/dL Creatinine 1.17 H (0.52-1.04) mg/dL Est GFR (CKD-EPI)AfAm 53 (>60 ml/min/1.73 sqM) Est GFR (CKD-EPI)NonAf 46 (>60 ml/min/1.73 sqM) Glucose 104 H (74-99) mg/dL POC Glucose (mg/dL) (75-99) mg/dL POC Glu [place] Master ID Calcium 8.3 L (8.4-10.2) mg/dL Total Bilirubin 1.3 (0.2-1.3) mg/dL AST 36 (14-36) U/L ALT 15 (4-34) U/L Alkaline Phosphatase 122 (38-126) U/L Troponin I <0.012 (0.000-0.034) ng/mL Total Protein 6.2 L (6.3-8.2) g/dL Albumin 2.9 L (3.5-5.0) g/dL - Radiology Data Radiology results: image reviewed (Computed tomography scan of the brain shows atrophy and chronic small vessel ischemic changes without acute process. 1 view chest x-ray shows chronic changes without acute pulmonary disease.) Disposition Clinical Impression: Altered mental status Disposition: ADMITTED IP TO THIS HOSP Is patient prescribed a controlled substance at d/c from ED?: No Referrals: Joey Valdez MD [Primary Care Provider] - 1-2 days Decision Time: 12:20
[2021-05-03 10:31] LABS: Glucose,Whole Blood 91 mg/dL (75-99)
[2021-05-03 11:20] LABS: INR 1.1 (<1.2); Partial Thromboplastin Time 24.1 sec (22.0-30.0)
[2021-05-03 11:23] LABS: Albumin 2.9 g/dL (3.5-5.0); Calcium 8.3 mg/dL (8.4-10.2); Potassium 3.2 mmol/L (3.5-5.1); Total Bilirubin 1.3 mg/dL (0.2-1.3); Total Protein 6.2 g/dL (6.3-8.2)
--- NOTE | 2021-05-03 11:32 | CT ---
EXAMINATION TYPE: CT brain wo con DATE OF EXAM: 05/03/2021 COMPARISON: 12/08/2020 HISTORY: Neuro deficit, acute, stroke suspected CT DLP: 1154.[address] of the brain was performed. The ventricles, basal cisterns and sulci overlying the cerebral convexities demonstrate mild enlargem ent. There is no evidence for intracranial hemorrhage or sulcal effacement. There is decreased attenuation about the periventricular white matter and deep white matter of both c erebral hemispheres, compatible with chronic small vessel ischemia. Differential diagnosis does inclu de demyelination. No mass effects are seen.No midline shift. Osseous calvarium is intact. If symptoms persist consider MRI. IMPRESSION: 1. Age related atrophic and chronic small vessel ischemic change without acute intracranial process s een at this time.
--- NOTE | 2021-05-03 11:33 | XR ---
EXAMINATION TYPE: XR chest 1V DATE OF EXAM: 05/03/2021 HISTORY: Shortness of breath. COMPARISON: 04/17/2021 TECHNIQUE: Single view of the chest is submitted. FINDINGS: Demonstrated are scattered senescent parenchymal change. There is no evidence for focal infiltrate. The heart is stable. Hilar and mediastinal structures are within normal limits. Degenerative changes are seen of the dorsal spine. IMPRESSION: 1. Chronic changes without evidence for acute pulmonary disease.
[2021-05-03 11:34] LABS: Anisocytosis Slight; Basophils # (A) 0.1 k/uL (0-0.2); Basophils % (A) 1 %; Eosinophils # (A) 0.4 k/uL (0-0.7); Eosinophils % (A) 4 %; HCT 38.7 % (34.0-46.0); Hypochromasia Marked; Lymphocytes # (A) 1.7 k/uL (1.0-4.8); Lymphocytes % (A) 15 %; MCH 31.2 pg (25.0-35.0); MCHC 31.1 g/dL (31.0-37.0); MCV 100.3 fL (80.0-100.0); Macrocytosis Slight; Mean Platelet Volume 9.8; Monocytes # (A) 0.3 k/uL (0-1.0); Monocytes % (A) 3 %; Neutrophils # (A) 8.9 k/uL (1.3-7.7); Neutrophils % (A) 77 %; Platelet Count 330 k/uL (150-450); RBC 3.86 m/uL (3.80-5.40); RDW 17.1 % (11.5-15.5); WBC 11.5 k/uL (3.8-10.6)
[2021-05-03] MEDS ORDERED: NALOXONE 0.4 MG/ML 1 ML VIAL IV PRN (12:20)
[2021-05-03 12:22] LABS: Appearance,Urine Clear (Clear); Bilirubin,Urine Negative (Negative); Blood,Urine Negative (Negative); Color,Urine Yellow; Glucose,Urine (UA) Negative (Negative); Ketones,Urine Negative (Negative); Leukocyte Esterase,Urine Negative (Negative); Nitrite,Urine Negative (Negative); PH, Urine 5.5 (5.0-8.0); Protein,Urine Negative (Negative); Specific Gravity,Urine 1.016 (1.001-1.035); Urobilinogen,Urine <2.0 mg/dL (<2.0)
[2021-05-03 12:34] LABS: Amphetamine Screen,Urine Not Detected (NotDetected); Barbiturate Screen,Urine Not Detected (NotDetected); Benzodiazepines Screen,Urine Not Detected (NotDetected); Cocaine Screen,Urine Not Detected (NotDetected); Methadone Screen, Urine Not Detected (NotDetected); Opiate Screen,Urine Detected (NotDetected); Oxycodone Screen, Urine Detected (NotDetected); Phencyclidine Screen,Urine Not Detected (NotDetected); Tricyclic Antidepressant,Urine Not Detected (NotDetected); Urn Cannabinoid Scrn Not Detected (NotDetected)
[2021-05-03] MEDS: SODIUM CHLORIDE 0.9% 1,000 ML IV SCH (13:26)
[2021-05-03 14:01] LABS: Acetaminophen <10.0 ug/mL; Alcohol <10 mg/dL; Salicylate <1.0 mg/dL
[2021-05-03] MEDS ORDERED: POTASSIUM CHLORIDE 20 MEQ in WATER FOR INJECTION 1 100ML.BAG IVPB STA (14:09)
--- NOTE | 2021-05-03 22:27 | P.HPIM ---
History of Present Illness H&P Date: 05/03/21 Chief Complaint: Altered mental status Patient is a 75-year-old female with a known history of paroxysmal atrial fibrillation on anticoagulation with Eliquis coronary artery disease with history of stent placement, chronic back pain and opiate use, GERD, history of GI bleed, hearing disorder/deafness, peptic ulcer disease, anxiety/depression and panic disorder and previous history of smoking was brought to the hospital by EMS due to altered mental status. Patient last well-known was yesterday and today morning she was found on the bed with altered mentation by her son around 8:30 AM. Patient wakes up by her name and going back to sleep. Could not provide any history at this time. Patient did not have any fever or chills recently. No recent nausea vomiting or diarrhea. Denies any complaints of pain does not appears to be in pain.. Patient reportedly has recently discontinued her chronic pain medication. Patient was found to be in feces upon admission. CT head showed is related atrophic and chronic small vessel ischemic changes without acute intracranial process seen at this time. Chest x-ray showed chronic changes without evidence for acute pulmonary disease. EKG showed sinus rhythm with first-degree AV block Urinalysis is negative for infection Laboratory data showed WBC 11.5 hemoglobin 12.0 MCV 100.3 platelets 330 Sodium 137 potassium 3.2 chloride 106 bicarb is 17 BUN 20 and creatinine 1.17 blood sugar is 104 Calcium 8.3 bilirubin level 1.3 AST 36 ALT 15 alk phos 122 albumin 2.9 and troponin less than 0.012 UDS is positive for opiates and oxycodone. Coronavirus PCR not detected. Review of Systems Complete review of systems could not be obtained from the patient. Past Medical History Past Medical History: Atrial Fibrillation, Coronary Artery Disease (CAD), Cancer, Eye Disorder, GERD/Reflux, GI Bleed, Hearing Disorder / Deafness, Hypertension, Musculoskeletal Disorder, Osteoarthritis (OA), Thyroid Disorder Additional Past Medical History / Comment(s): Peptic ulcer, chronic back pain, laryngeal cancer/tx-approx 20 yrs ago, head injury in 2012, cataract removal left eye. Pt states she has a hole in her left eardrum. 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 SHOULDER Past Surgical History: Bariatric Surgery, Bowel Resection, Cholecystectomy, Heart Catheterization, Heart Catheterization With Stent, Hysterectomy, Joint Replacement, Orthopedic Surgery Additional Past Surgical History / Comment(s): 1 stent, Bilateral knee replacement, left shoulder rotator cuff surgery, gastric bypass, D&C w/ corrective surgery, EGD/colonoscopy, laryngeal tumor removed 30 radiation treatments about 20 years ago, Ganglion Cysts both wrists.PAIN CLINIC INJECTIONS, colostomy 06/2020 w/ reversal in August Past Anesthesia/Blood Transfusion Reactions: No Reported Reaction Date of Last Stent Placement:: 2003 Past Psychological History: Anxiety, Depression, Panic Disorder Additional Psychological History / Comment(s): pt lives alone in an apartment. Smoking Status: Former smoker Past Alcohol Use History: None Reported Additional Past Alcohol Use History / Comment(s): Pt started smoking in 1959 and quit in 1982, 1ppd. Past Drug Use History: None Reported - Past Family History Mother Family Medical History: Cancer, Congestive Heart Failure (CHF), Diabetes Mellit us, Hypertension Additional Family Medical History / Comment(s): Mother passed at 93. Father Family Medical History: Myocardial Infarction ([place]) Additional Family Medical History / Comment(s): Father of a [place] at the age of 39 yrs. Sister(s) Family Medical History: Cancer Brother(s) Family Medical History: Cancer, Myocardial Infarction ([place]) Medications and Allergies Home Medications Medication Instructions Recorded Confirmed Type Levothyroxine Sodium [Synthroid] 200 mcg PO DAILY 01/12/19 05/03/21 History LORazepam [Ativan] 0.5 mg PO HS PRN 11/25/20 05/03/21 History Ondansetron Odt [Zofran ODT] 4 mg PO Q8HR PRN #10 tab 12/04/20 05/03/21 Rx Apixaban [Eliquis] 5 mg PO BID #60 tab 01/12/21 05/03/21 Rx Calcium Carbonate [Tums] 500 mg PO QID PRN tab 01/12/21 05/03/21 Rx Megestrol Acetate 40 mg PO BID 03/01/21 05/03/21 History hydrOXYzine HCL [Atarax] 10 mg PO HS 03/01/21 05/03/21 History HYDROcodone/APAP 10-325MG [[place] 1 tab PO BID #0 03/06/21 05/03/21 Rx 10-325] Cholecalciferol [Vitamin D3 (25 25 mcg PO DAILY #30 tablet 03/21/21 05/03/21 Rx Mcg = 1000 Iu)] Cyanocobalamin [Vitamin B-12] 1,000 mcg PO DAILY #30 tab 03/21/21 05/03/21 Rx Dicyclomine [Bentyl] 20 mg PO QID 15 Days #60 tab 03/21/21 05/03/21 Rx Pantoprazole [Protonix] 40 mg PO BID #30 tab 03/21/21 05/03/21 Rx Nitroglycerin Sl Tabs [Nitrostat] 0.4 mg SL Q5M PRN 04/15/21 05/03/21 History Acetaminophen Tab [Tylenol] 650 mg PO Q6HR PRN tab 04/18/21 05/03/21 Rx Losartan [Cozaar] 50 mg PO DAILY@1800 30 Days #60 tab 04/18/21 05/03/21 Rx Metoprolol Tartrate [Lopressor] 50 mg PO BID 30 Days #60 tab 04/18/21 05/03/21 Rx Allergies Allergy/AdvReac Type Severity Reaction Status Date / Time latex Allergy Unknown Verified 05/03/21 10:56 vancomycin Allergy Rash/Hives Verified 05/03/21 10:56 Physical Exam Vitals: Vital Signs Temp Pulse Resp BP Pulse Ox 05/03/21 13:16 72 12 123/51 94 L 05/03/21 11:27 73 12 113/55 94 L 05/03/21 10:30 97.9 F 71 20 130/116 97 Intake and Output 05/02/21 05/03/21 05/03/21 22:59 06:59 14:59 Other: Weight 72.575 kg PHYSICAL EXAMINATION: Patient is currently lying in the bed.. Awake and alert. Opens her eyes with verbal stimuli. Sleepy and lethargic. HEENT: Normocephalic. Neck is supple. Pupils reactive. Nostrils clear. Oral cavity is moist. Neck reveals no JVD, carotid bruits, or thyromegaly. CHEST EXAMINATION: Trachea is central. Symmetrical expansion. Bibasilar diminished sounds. Lung herrera clear to auscultation and percussion. CARDIAC: Normal S1, S2 with no gallops. No murmurs ABDOMEN: Soft. Bowel sounds normal. No organomegaly. No abdominal bruits. Extremities: reveal no edema. No clubbing or cyanosis Neurologically awake, alert, oriented x1. Able to move her extremities while in bed. No gross neurological deficit noted. Skin: No rash or skin lesions. Psychiatric: Could not be assessed at this time. Musculoskeletal: No joint swelling or deformity. Results CBC & Chem 7: 05/04/21 07:04 05/04/21 07:04 Labs: Abnormal Lab Results - Last 24 Hours (Table) 05/03/21 05/03/21 05/03/21 Range/Units 10:49 10:49 12:02 WBC 11.5 H (3.8-10.6) k/uL MCV 100.3 H (80.0-100.0) fL RDW 17.1 H (11.5-15.5) % Neutrophils # 8.9 H (1.3-7.7) k/uL Potassium 3.2 L (3.5-5.1) mmol/L Carbon Dioxide 17 L (22-30) mmol/L BUN 20 H (7-17) mg/dL Creatinine 1.17 H (0.52-1.04) mg/dL Glucose 104 H (74-99) mg/dL Calcium 8.3 L (8.4-10.2) mg/dL Total Protein 6.2 L (6.3-8.2) g/dL Albumin 2.9 L (3.5-5.0) g/dL Urine Opiates Screen Detected H (NotDetected) Ur Oxycodone Screen Detected H (NotDetected) Thrombosis Risk Factor Assmnt - DVT/VTE Prophylaxis DVT/VTE Prophylaxis: Pharmacologic Prophylaxis ordered Assessment and Plan Assessment: Altered mental status. Possible metabolic, toxic encephalopathy. CT head showed no acute CVA. UDS positive for opiates and oxycodone. Mild acute kidney injury Hypokalemia Chronic back pain and opiate use Paroxysmal atrial fibrillation on anticoagulation with Eliquis Coronary artery disease history of stent placement GERD History of GI bleed and peptic ulcer disease Anxiety/depression panic disorder Previous history of smoking DVT prophylaxis patient is already on full anticoagulation with Eliquis Plan: Patient will be continued on IV hydration and replace electrolytes. Continue with neurochecks and monitor for opiate withdrawal symptoms. Neurology was consulted. CT head showed no acute process. Follow-up TSH B12 and folate levels. Continue with supportive care and follow-up closely. Prognosis guarded. Time with Patient: Greater than 30
[2021-05-03] MEDS: METOPROLOL TARTRATE 50 MG TAB PO SCH (23:57)
[2021-05-04] MEDS: ACETAMINOPHEN TAB 325 MG TAB PO PRN (05:31)
[2021-05-04] MEDS: LEVOTHYROXINE 100 MCG TAB PO SCH (05:31)
[2021-05-04] MEDS: SODIUM CHLORIDE 0.9% 1,000 ML IV SCH ×2 (07:41→16:50)
[2021-05-04] MEDS: APIXABAN 5 MG TAB PO SCH ×2 (08:55→21:08)
[2021-05-04] MEDS: PANTOPRAZOLE 40 MG TABLET PO SCH ×2 (08:55→18:01)
[2021-05-04] MEDS: METOPROLOL TARTRATE 50 MG TAB PO SCH ×2 (08:57→21:07)
[2021-05-04] MEDS ORDERED: METOPROLOL TARTRATE 50 MG TAB PO SCH (09:00)
--- NOTE | 2021-05-04 11:00 | P.CNNES ---
History of Present Illness Consult date: 05/04/21 Requesting physician: Arnol Holliday Reason for Consult: Altered mental status History of Present Illness: Patient is a 75-year-old female came to the hospital by ambulance yesterday at 10:15 AM. According to the EMS flow sheet, when they arrived, patient was laying on the couch with altered mental status. Patient would only yelled "Mauro what's wrong". Patient's son has mentioned that she woke up around 8:30 AM in this state. Patient's son also mentioned that she abuses prescription medications. No obvious injuries were noted. Patient's blood pressure was 118, diastolic not present. Pulse 77, respiration 18, saturation 97%. Blood sugar 116. Patient at this time is delirious, encephalopathic, not able to provide any history. Please refer to examination below. Computed tomography scan of the head was done, which revealed age-related atrophic and chronic small vessel ischemic changes without acute intracranial process. I personally reviewed computed tomography scan on the computer. No acute process. Mild air-fluid level in the left sphenoid sinus. EKG shows sinus rhythm with first-degree AV block with premature supraventricular complexes and premature ventricular complexes and fusion complexes. Low voltage QRS. Prolonged QT. Chest x-ray showed chronic changes without evidence for acu te cardiopulmonary disease. Blood tests with WBC 11.5 hemoglobin 12.0, platelets 330. MCV is elevated 100.3. PT/PTT normal, sodium is normal 137 potassium 3.2. BUN 20, creatinine 1.17. Hepatic panel is normal. Troponin negative, UA negative. Urine drug screen positive for opiates and oxycodone. Blood alcohol level negative. Bautista virus PCR negative. Patient's last B12 level is borderline 307 on 03/17/2021. RBC folate 414. Homocysteine 13.77. Rheumatoid factor, ALISON negative. 2-D echo from 03/03/2021 showed normal left- ventricular size. Mild concentric LVH. EF is between 55-60%. Right ventricle was mildly enlarged. Mild to moderate AR. Mild MR. Patient's previous CTA from 02/28/2018 showed right greater than left atherosclerotic changes with focal significant stenosis greater than 50% proximal right ICA felt present. Home medications include levothyroxine, lorazepam 0.5 mg at bedtime when necessary, Eliquis 5 mg twice a day, B12 1000 g orally daily, vitamin D, losa rtan. Review of Systems Patient admits to having headache, states "bad". When she was asked if she has pain anywhere, states "a little bit". Patient not able to provide any further review of systems. ROS unobtainable: due to mental status Past Medical History Past Medical History: Atrial Fibrillation, Coronary Artery Disease (CAD), Cancer, Eye Disorder, GERD/Reflux, GI Bleed, Hearing Disorder / Deafness, Hypertension, Musculoskeletal Disorder, Osteoarthritis (OA), Thyroid Disorder Additional Past Medical History / Comment(s): Peptic ulcer, chronic back pain, laryngeal cancer/tx-approx 20 yrs ago, head injury in 2012, cataract removal left eye. Pt states she has a hole in her left eardrum. 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 SHOULDER Past Surgical History: Bariatric Surgery, Bowel Resection, Cholecystectomy, Heart Catheterization, Heart Catheterization With Stent, Hysterectomy, Joint Replacement, Orthopedic Surgery Additional Past Surgical History / Comment(s): 1 stent, Bilateral knee replacement, left shoulder rotator cuff surgery, gastric bypass, D&C w/ corrective surgery, EGD/colonoscopy, laryngeal tumor removed 30 radiation treatments about 20 years ago, Ganglion Cysts both wrists.PAIN CLINIC INJECTIONS, colostomy 06/2020 w/ reversal in August Past Anesthesia/Blood Transfusion Reactions: No Reported Reaction Date of Last Stent Placement:: 2003 Past Psychological History: Anxiety, Depression, Panic Disorder Additional Psychological History / Comment(s): pt lives alone in an apartment. Smoking Status: Former smoker Past Alcohol Use History: None Reported Additional Past Alcohol Use History / Comment(s): Pt started smoking in 1959 and quit in 1982, 1ppd. Past Drug Use History: None Reported - Past Family History Mother Family Medical History: Cancer, Congestive Heart Failure (CHF), Diabetes Mellitus, Hypertension Additional Family Medical History / Comment(s): Mother passed at 93. Father Family Medical History: Myocardial Infarction (DC) Additional Family Medical History / Comment(s): Father of a DC at the age of 39 yrs. Sister(s) Family Medical History: Cancer Brother(s) Family Medical History: Cancer, Myocardial Infarction (DC) Medications and Allergies Home Medications Medication Instructions Recorded Confirmed Type Levothyroxine Sodium [Synthroid] 200 mcg PO DAILY 01/12/19 05/03/21 History LORazepam [Ativan] 0.5 mg PO HS PRN 11/25/20 05/03/21 History Ondansetron Odt [Zofran ODT] 4 mg PO Q8HR PRN #10 tab 12/04/20 05/03/21 Rx Apixaban [Eliquis] 5 mg PO BID #60 tab 01/12/21 05/03/21 Rx Calcium Carbonate [Tums] 500 mg PO QID PRN tab 01/12/21 05/03/21 Rx Megestrol Acetate 40 mg PO BID 03/01/21 05/03/21 History hydrOXYzine HCL [Atarax] 10 mg PO HS 03/01/21 05/03/21 History HYDROcodone/APAP 10-325MG [[place] 1 tab PO BID #0 03/06/21 05/03/21 Rx 10-325] Cholecalciferol [Vitamin D3 (25 25 mcg PO DAILY #30 tablet 03/21/21 05/03/21 Rx Mcg = 1000 Iu)] Cyanocobalamin [Vitamin B-12] 1,000 mcg PO DAILY #30 tab 03/21/21 05/03/21 Rx Dicyclomine [Bentyl] 20 mg PO QID 15 Days #60 tab 03/21/21 05/03/21 Rx Pantoprazole [Protonix] 40 mg PO BID #30 tab 03/21/21 05/03/21 Rx Nitroglycerin Sl Tabs [Nitrostat] 0.4 mg SL Q5M PRN 04/15/21 05/03/21 History Acetaminophen Tab [Tylenol] 650 mg PO Q6HR PRN tab 04/18/21 05/03/21 Rx Losartan [Cozaar] 50 mg PO DAILY@1800 30 Days #60 tab 04/18/21 05/03/21 Rx Metoprolol Tartrate [Lopressor] 50 mg PO BID 30 Days #60 tab 04/18/21 05/03/21 Rx Allergies Allergy/AdvReac Type Severity Reaction Status Date / Time latex Allergy Unknown Verified 05/03/21 10:56 vancomycin Allergy Rash/Hives Verified 05/03/21 10:56 Physical Examination - Vital Signs Vital Signs: Vital Signs Temp Pulse Pulse Pulse Resp BP BP 05/04/21 08:25 64 18 05/04/21 07:55 99 F 64 18 110/62 05/04/21 05:04 98.3 F 75 16 119/59 05/04/21 04:43 140/80 05/04/21 02:00 97.5 F L 75 16 130/63 05/03/21 20:00 98.6 F 71 20 131/72 05/03/21 19:00 96 16 136/67 05/03/21 14:48 97.6 F 70 12 102/41 05/03/21 14:12 81 14 126/61 05/03/21 13:16 72 12 123/51 05/03/21 11:27 73 12 113/55 05/03/21 10:30 97.9 F 71 20 130/116 Pulse Ox 05/04/21 08:25 05/04/21 07:55 98 05/04/21 05:04 100 05/04/21 04:43 05/04/21 02:00 99 05/03/21 20:00 93 L 05/03/21 19:00 96 05/03/21 14:48 97 05/03/21 14:12 97 05/03/21 13:16 94 L 05/03/21 11:27 94 L 05/03/21 10:30 97 Intake and Output 05/03/21 05/04/21 05/04/21 22:59 06:59 14:59 Other: Voiding Method Diaper Diaper Incontinent Incontinent # Voids 2 # Bowel Movements 1 Patient is an elderly female, who is delirious, encephalopathic, restless, very fidgety, almost constantly moving, particularly her arms. Patient is alert awake, does make eye contact when her name is called. When I entered the room, patient would perseverate on 10:30. When I checked the clock, the time was 10:35 AM at this time. Patient speaking a few words sporadically. No aphasia. Patient not answering to questions like testing for orientation. Patient able to name glasses correctly, but named "clock" for a pen presented. Patient is sweating, moaning constantly. Speech and language functions appeared normal, although it was very limited examination. Attention, concentration and fund of knowledge is limited. Patient admits to having headache, states "bad". However when the nurse asked she is in pain, states "a little bit". Patient did point to the window correctly. On cranial examination, pupils are round and reacting to light, visual herrera could not be tested on confrontation. She does blink to visual threat bilaterally. Her extraocular muscles are intact with no nystagmus. Face is symmetric, tongue protrudes to the midline. Palatal elevation and sensation cannot be tested. Facial sensations currently tested. Hearing to be assessed reliably. She does understand commands although and requires repeated attempts. Shoulder shrug normal. 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 Her ankles are normal. She is moving all 4 activities very equally. She is very fidgety, constantly moving. Deep tendon reflexes are diminished and plantars downgoing. Sensory to touch. Basis. Cerebellar function could not be tested its patient would not cooperate. Tone and bulk of muscles normal. Gait not checked. On general examination, there is no carotid bruit or murmur, S1-S2 audible. Abdomen is soft nontender. Chest is clear. Peripheral pulses are present. No edema. She has some ecchymosis on her arms and legs. Her mouth is dry, lips are slightly chapped. Results - Laboratory Findings CBC and BMP: 05/11/21 06:07 05/11/21 06:07 Abnormal Lab Findings: Abnormal Labs 05/03/21 05/03/21 05/03/21 10:49 10:49 12:02 WBC 11.5 H MCV 100.3 H RDW 17.1 H Neutrophils # 8.9 H Potassium 3.2 L Carbon Dioxide 17 L BUN 20 H Creatinine 1.17 H Glucose 104 H Calcium 8.3 L Total Protein 6.2 L Albumin 2.9 L Urine Opiates Screen Detected H Ur Oxycodone Screen Detected H Assessment and Plan Assessment: * Acute onset of altered mental status on waking up yesterday, unclear etiology. Patient is delirious, very restless, almost like acathisia. Patient is very alert and awake, but constantly moving, moaning. Limited examination is nonfocal. * Past medical history reports of atrial fibrillation, but currently not on any anticoagulation * Hypertension * Reported history of laryngeal cancer (per electronic record). Plan: * EEG to evaluate for encephalopathy, rule out any epileptiform activity. * I will try to obtain collateral history from patient's son. * Consider lumbar puncture. * MRI would not be possible because of her fidgetiness. * Suggest psychiatry consultation for delirium/? Psychosis. * Neurology will follow.
[2021-05-04 11:03] LABS: HGB 9.3 g/dL (12.0-15.0); MCH 30.3 pg (27.0-32.0); NRBC Per 100 WBC 0 /100 WBCS (0.0-0.0); Platelet Count 272 X 10*3/uL (140-440); RBC 3.07 X 10*6/uL (4.10-5.20); RDW 17.8 % (11.5-14.5); WBC 14.93 X 10*3/uL (4.50-10.00)
[2021-05-04 11:49] LABS: Basophils # (A) 0.04 X 10*3/uL (0.00-0.10); Basophils % (A) 0.3 %; Eosinophils # (A) 0.01 X 10*3/uL (0.04-0.35); Eosinophils % (A) 0.1 %; Immature Grans, Automated 0.5 %; Lymphocytes # (A) 1.25 X 10*3/uL (0.90-5.00); Lymphocytes % (A) 8.4 %; Monocytes # (A) 1.04 X 10*3/uL (0.20-1.00); Neutrophils # (A) 12.51 X 10*3/uL (1.80-7.70); Neutrophils % (A) 83.7 %
--- NOTE | 2021-05-04 15:44 | XR ---
EXAMINATION TYPE: XR chest 1V DATE OF EXAM: 05/04/2021 COMPARISON: 05/03/2021 INDICATION: Leukocytosis TECHNIQUE: Single frontal view of the chest is obtained. FINDINGS: The heart size is normal. The pulmonary vasculature is normal. The lungs are clear. Humeral head prosthesis is present. IMPRESSION: 1. No acute pulmonary process.
[2021-05-04 18:01] LABS: African American GFR (CKD) 34.8 (60.0-200.0); BUN/Creat Ratio 17.39 Ratio (12.00-20.00); Blood Urea Nitrogen 28.7 mg/dL (9.0-27.0); Calcium 8.4 mg/dL (8.7-10.3); Carbon Dioxide 13.4 mmol/L (20.0-27.5); Chloride 111 mmol/L (96-109); Glucose 92 mg/dL (70-110); Non-African American GFR(CKD) 30.1 (60.0-200.0); Potassium 5.1 mmol/L (3.5-5.5); Sodium 144 mmol/L (135-145)
--- NOTE | 2021-05-04 22:18 | P.PN ---
Subjective Progress Note Date: 05/04/21 Patient is a 75-year-old female with a known history of paroxysmal atrial fibrillation on anticoagulation with Eliquis coronary artery disease with history of stent placement, chronic back pain and opiate use, GERD, history of GI bleed, hearing disorder/deafness, peptic ulcer disease, anxiety/depression a nd panic disorder and previous history of smoking was brought to the hospital by EMS due to altered mental status. Patient last well-known was yesterday and today morning she was found on the bed with altered mentation by her son around 8:30 AM. Patient wakes up by her name and going back to sleep. Could not provide any history at this time. Patient did not have any fever or chills recently. No recent nausea vomiting or diarrhea. Denies any complaints of pain does not appears to be in pain.. Patient reportedly has recently discontinued her chronic pain medication. Patient was found to be in feces upon admission. CT head showed is related atrophic and chronic small vessel ischemic changes without acute intracranial process seen at this time. Chest x-ray showed chronic changes without evidence for acute pulmonary disease. EKG showed sinus rhythm with first-degree AV block Urinalysis is negative for infection Laboratory data showed WBC 11.5 hemoglobin 12.0 MCV 100.3 platelets 330 Sodium 137 potassium 3.2 chloride 106 bicarb is 17 BUN 20 and creatinine 1.17 blood sugar is 104 Calcium 8.3 bilirubin level 1.3 AST 36 ALT 15 alk phos 122 albumin 2.9 and troponin less than 0.012 UDS is positive for opiates and oxycodone. Coronavirus PCR not detected. 05/04/2021 Patient is still confused a but more awake and alert today. Patient is moaning and involuntarily moving her hands. Could not provide any history. Able to respond with verbal stimuli but does not follow simple commands.. Patient has been afebrile. Able to tolerate pured diet and able to take her medications today. Currently requiring 3 L oxygen via nasal cannula and is IV hydration with normal saline at 75 cc/h. Patient was seen by neurology. WBC 14.9 hemoglobin 9.3 and platelets 272 Sodium 144 potassium 5.1 chloride 111 bicarb is 31.4 BUN 28.7 creatinine 1.7 Current medications reviewed. Objective - Vital Signs Vital signs: Vital Signs Temp 98.7 F 05/04/21 12:25 Pulse 78 05/04/21 12:25 Resp 20 05/04/21 12:25 BP 114/58 05/04/21 12:25 Pulse Ox 93 L 05/04/21 12:25 Intake & Output 05/04/21 05/04/21 05/05/21 06:59 18:59 06:59 Weight 72.575 kg Other: Voiding Method Diaper Diaper Incontinent Incontinent # Voids 2 3 # Bowel Movements 1 - Exam PHYSICAL EXAMINATION: Patient is lying in the bed awake alert but confused and disoriented. Able to o pen her eyes with verbal stimuli. Does not follow commands. HEENT: Normocephalic. Neck is supple. Pupils reactive. Nostrils clear. Oral cavity is moist. Neck reveals no JVD, carotid bruits, or thyromegaly. CHEST EXAMINATION: Trachea is central. Symmetrical expansion. Lung herrera clear to auscultation and percussion. CARDIAC: Normal S1, S2 with no gallops. No murmurs ABDOMEN: Soft. Bowel sounds normal. No organomegaly. No abdominal bruits. Extremities: reveal no edema. No clubbing or cyanosis Neurologically awake, alert, oriented x1 able to move extremities while in bed. No focal neurological deficits noted. Skin: No rash or skin lesions. Psychiatric: Could not be assessed completely Musculoskeletal: No joint swelling or deformity. - Labs CBC & Chem 7: 05/04/21 07:04 05/04/21 07:04 Labs: Abnormal Lab Results - Last 24 Hours (Table) 05/04/21 05/04/21 Range/Units 07:04 07:04 WBC 14.93 H (4.50-10.00) X 10*3/uL RBC 3.07 L (4.10-5.20) X 10*6/uL Hgb 9.3 L (12.0-15.0) g/dL Hct 31.0 L (37.2-46.3) % MCV 101.0 H (80.0-97.0) fL MCHC 30.0 L (32.0-37.0) g/dL RDW 17.8 H (11.5-14.5) % Immature Gran # 0.08 H (0.00-0.04) X 10*3/uL Neutrophils # 12.51 H (1.80-7.70) X 10*3/uL Monocytes # 1.04 H (0.20-1.00) X 10*3/uL Eosinophils # 0.01 L (0.04-0.35) X 10*3/uL Chloride 111 H (96-109) mmol/L Carbon Dioxide 13.4 L (20.0-27.5) mmol/L Anion Gap 18.90 H (10.00-18.00) mmol/L BUN 28.7 H (9.0-27.0) mg/dL Creatinine 1.7 H (0.6-1.5) mg/dL Est GFR (CKD-EPI)AfAm 34.8 L (60.0-200.0) Est GFR (CKD-EPI)NonAf 30.1 L (60.0-200.0) Calcium 8.4 L (8.7-10.3) mg/dL Vitamin B12 1131.0 H (200.0-944.0) pg/mL Assessment and Plan Assessment: Altered mental status. Possible metabolic, toxic encephalopathy. CT head showed no acute CVA. UDS positive for opiates and oxycodone. Delirium and involuntary upper extremity movements. Acute kidney injury Hypokalemia Chronic back pain and opiate use Paroxysmal atrial fibrillation on anticoagulation with Eliquis Coronary artery disease history of stent placement GERD History of GI bleed and peptic ulcer disease Anxiety/depression panic disorder Previous history of smoking DVT prophylaxis patient is already on full anticoagulation with Eliquis Plan: Patient will be continued on IV hydration and replace electrolytes. IV fluids changed to D5 half-normal saline. Encourage oral intake. EEG was ordered due to encephalopathy and rule out seizures.. Neurology is on board. Continue with neurochecks and monitor for opiate withdrawal symptoms. CT head showed no acute process. Follow-up TSH B12 and folate levels wnl. MRI of the brain could not be done since the patient could not stay still. Psychiatry was consulted due to delirium. Continue with supportive care and follow-up closely. Prognosis guarded. Time with Patient: Greater than 30
[2021-05-05] MEDS ORDERED: DEXTROSE 5%-0.9% NACL 1,000 ML IV SCH (01:15)
[2021-05-05 06:31] LABS: African American GFR (CKD) 62 (>60 ml/min/1.73 sqM); Anion Gap 7 mmol/L; Blood Urea Nitrogen 35 mg/dL (7-17); Calcium 8.4 mg/dL (8.4-10.2); Carbon Dioxide 19 mmol/L (22-30); Chloride 116 mmol/L (98-107); Glucose 112 mg/dL (74-99); Non-African American GFR(CKD) 53 (>60 ml/min/1.73 sqM); Potassium 3.7 mmol/L (3.5-5.1); Sodium 142 mmol/L (137-145)
[2021-05-05 06:41] LABS: Anisocytosis Slight; Basophils % (A) 0 %; Eosinophils % (A) 0 %; HCT 33.2 % (34.0-46.0); Hypochromasia Marked; Lymphocytes # (A) 1.3 k/uL (1.0-4.8); Lymphocytes % (A) 11 %; MCH 30.7 pg (25.0-35.0); MCHC 29.8 g/dL (31.0-37.0); MCV 102.9 fL (80.0-100.0); Macrocytosis Moderate; Mean Platelet Volume 8.7; Monocytes # (A) 0.6 k/uL (0-1.0); Monocytes % (A) 5 %; Neutrophils # (A) 9.3 k/uL (1.3-7.7); Neutrophils % (A) 80 %; Platelet Count 309 k/uL (150-450); RBC 3.23 m/uL (3.80-5.40); WBC 11.6 k/uL (3.8-10.6)
[2021-05-05 06:44] LABS: HGB 9.9 gm/dL (11.4-16.0)
[2021-05-05] MEDS: LEVOTHYROXINE 100 MCG TAB PO SCH (08:10)
[2021-05-05] MEDS: METOPROLOL TARTRATE 50 MG TAB PO SCH ×2 (08:10→21:00)
[2021-05-05] MEDS: APIXABAN 5 MG TAB PO SCH (08:10)
[2021-05-05] MEDS: PANTOPRAZOLE 40 MG TABLET PO SCH (08:10)
[2021-05-05] MEDS ORDERED: LOSARTAN 50 MG TAB PO STA (09:56)
[2021-05-05] MEDS: DEXTROSE 5%-0.45% NACL 1,000 ML IV SCH ×2 (11:25→13:36)
--- NOTE | 2021-05-05 15:14 | P.GSCN ---
History of Present Illness Consult date: 05/05/21 History of present illness: CHIEF COMPLAINT: Altered mental status changes Reason for consult: Abdominal pain and dark stools HISTORY OF PRESENT ILLNESS: This is a 75-year-old female who presented to the hospital on 05/03/2021 due to altered mental status changes. At that time she was not able to follow any commands. Patient did stool on herself. Patient reports that she may have taken too many pain medications. She is currently alert and orientated to her name and place. She is being evaluated by neurology and psychiatry. She does state that her stools have been dark. She complains of diffuse abdominal pain. Denies any nausea or vomiting. She did have a hemoglobin of 12 on admission and it is trended down to 9.9. Patient is on Eliquis for her atrial fibrillation. She does have history of GI bleed and peptic ulcer disease. She does have her surgical history includes perforated diverticulitis with abscess status post sigmoid colectomy with colostomy and lysis of adhesions for partial small bowel obstruction on 07/26/2020. She had colostomy reversal on 10/25/2020. Patient does have prior history of ulcers at the anastomotic site of her Suzanna-en-Y surgery noted on EGDs September and December [address] Beasley. Also has history of chronic abdominal pain. PAST MEDICAL HISTORY: Atrial Fibrillation, Coronary Artery Disease (CAD), Cancer, Eye Disorder, GERD/Reflux, GI Bleed, Hearing Disorder / Deafness, Hypertension, Musculoskeletal Disorder, Osteoarthritis (OA), Thyroid Disorder,Peptic ulcer, chronic back pain, laryngeal cancer/tx-approx 20 yrs ago, head injury in 2012, PAST SURGICAL HISTORY: Cholecystectomy, Suzanna-en-Y MEDICATIONS: See list. ALLERGIES: See list. SOCIAL HISTORY: No illicit drug use. REVIEW OF SYSTEMS: CONSTITUTIONAL: Denies fever or chills. HEENT: Denies blurred vision, vision changes, or eye pain. Denies hemoptysis CARDIOVASCULAR: Denies chest pain or pressure. RESPIRATORY: No shortness of breath. GASTROINTESTINAL: See HPI for pertinent findings HEMATOLOGIC: Denies bleeding disorders. GENITOURINARY: Denies any blood in urine or increased urinary frequency. SKIN: Denies pruitis. Denies rash. PHYSICAL EXAM: VITAL SIGNS: Reviewed GENERAL: Well-developed in no acute distress. HEENT: No sclera icterus. Extraocular movements grossly intact. Moist buccal mucosa. Head is atraumatic, normocephalic. No nasal drainage. ABDOMEN: Soft. Nondistended. Diffuse tenderness NEUROLOGIC: Alert and oriented to name and place. Cranial nerves II through XII grossly intact. LABORATORY DATA: WBC 14.93 down to 11.6 hemoglobin 12 down to 9.9 platelets 309 sodium 142 potassium 3.7 creatinine 1.03 Albumin 2.9 B12 and folate elevated IMAGING: ASSESSMENT: 1. Anemia with dark stools 2. Altered mental status changes. Possible metabolic or toxic encephalopathy. 3. Drug screen positive for opiates and oxycodone 4. Atrial fibrillation anticoagulated with Eliquis 5. History of GI bleed and peptic ulcer disease 6. History of ulcers at the anastomotic site of her Suzanna-en-Y surgery noted on EGDs in September and December [address] Beasley PLAN: -Patient scheduled for EGD and colonoscopy on 05/07/[address] atkins -Start GoLYTELY prep on Saturday morning -Start a full liquid diet tomorrow and then clear liquid on Saturday -Check stool for occult blood -Hold Eliquis -Continue Protonix -Continue to monitor hemoglobin -Continue to monitor for any signs or symptoms of bleeding Thank you for this consultation Physician Student Development Specialist note has been reviewed by physician. Signing provider agrees with the documented findings, assessment, and plan of care. Past Medical History Past Medical History: Atrial Fibrillation, Coronary Artery Disease (CAD), Cancer, Eye Disorder, GERD/Reflux, GI Bleed, Hearing Disorder / Deafness, Hy pertension, Musculoskeletal Disorder, Osteoarthritis (OA), Thyroid Disorder Additional Past Medical History / Comment(s): Peptic ulcer, chronic back pain, laryngeal cancer/tx-approx 20 yrs ago, head injury in 2012, cataract removal left eye. Pt states she has a hole in her left eardrum. 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 Past Surgical History: Bariatric Surgery, Bowel Resection, Cholecystectomy, Heart Catheterization, Heart Catheterization With Stent, Hysterectomy, Joint Replacement, Orthopedic Surgery Additional Past Surgical History / Comment(s): 1 stent, Bilateral knee replacement, left shoulder rotator cuff surgery, gastric bypass, D&C w/ corrective surgery, EGD/colonoscopy, laryngeal tumor removed 30 radiation treatments about 20 years ago, Ganglion Cysts both wrists.PAIN CLINIC INJECTIONS, colostomy 06/2020 w/ reversal in August Past Anesthesia/Blood Transfusion Reactions: No Reported Reaction Date of Last Stent Placement:: 2003 Past Psychological History: Anxiety, Depression, Panic Disorder Additional Psychological History / Comment(s): pt lives alone in an apartment. Smoking Status: Former smoker Past Alcohol Use History: None Reported Additional Past Alcohol Use History / Comment(s): Pt started smoking in 1959 and quit in 1982, 1ppd. Past Drug Use History: None Reported - Past Family History Mother Family Medical History: Cancer, Congestive Heart Failure (CHF), Diabetes Mellitus, Hypertension Additional Family Medical History / Comment(s): Mother passed at 93. Father Family Medical History: Myocardial Infarction (VT) Additional Family Medical History / Comment(s): Father of a VT at the age of 39 yrs. Sister(s) Family Medical History: Cancer Brother(s) Family Medical History: Cancer, Myocardial Infarction (VT) Medications and Allergies Home Medications Medication Instructions Recorded Confirmed Type Levothyroxine Sodium [Synthroid] 200 mcg PO DAILY 01/12/19 05/03/21 History LORazepam [Ativan] 0.5 mg PO HS PRN 11/25/20 05/03/21 History Ondansetron Odt [Zofran ODT] 4 mg PO Q8HR PRN #10 tab 12/04/20 05/03/21 Rx Apixaban [Eliquis] 5 mg PO BID #60 tab 01/12/21 05/03/21 Rx Calcium Carbonate [Tums] 500 mg PO QID PRN tab 01/12/21 05/03/21 Rx Megestrol Acetate 40 mg PO BID 03/01/21 05/03/21 History hydrOXYzine HCL [Atarax] 10 mg PO HS 03/01/21 05/03/21 History HYDROcodone/APAP 10-325MG [[place] 1 tab PO BID #0 03/06/21 05/03/21 Rx 10-325] Cholecalciferol [Vitamin D3 (25 25 mcg PO DAILY #30 tablet 03/21/21 05/03/21 Rx Mcg = 1000 Iu)] Cyanocobalamin [Vitamin B-12] 1,000 mcg PO DAILY #30 tab 03/21/21 05/03/21 Rx Dicyclomine [Bentyl] 20 mg PO QID 15 Days #60 tab 03/21/21 05/03/21 Rx Pantoprazole [Protonix] 40 mg PO BID #30 tab 03/21/21 05/03/21 Rx Nitroglycerin Sl Tabs [Nitrostat] 0.4 mg SL Q5M PRN 04/15/21 05/03/21 History Acetaminophen Tab [Tylenol] 650 mg PO Q6HR PRN tab 04/18/21 05/03/21 Rx Losartan [Cozaar] 50 mg PO DAILY@1800 30 Days #60 tab 04/18/21 05/03/21 Rx Metoprolol Tartrate [Lopressor] 50 mg PO BID 30 Days #60 tab 04/18/21 05/03/21 Rx Allergies Allergy/AdvReac Type Severity Reaction Status Date / Time latex Allergy Unknown Verified 05/03/21 10:56 vancomycin Allergy Rash/Hives Verified 05/03/21 10:56 Surgical - Exam Vital Signs Temp Pulse Resp BP Pulse Ox 97.9 F 71 20 130/116 97 05/03/21 10:30 05/03/21 10:30 05/03/21 10:30 05/03/21 10:30 05/03/21 10:30 Results - Labs 05/05/21 05:51 05/05/21 05:51 Abnormal Lab Results - Last 24 Hours (Table) 05/04/21 05/04/21 05/05/21 Range/Units 07:04 07:04 05:51 WBC 11.6 H (3.8-10.6) k/uL RBC 3.23 L (3.80-5.40) m/uL Hgb 9.9 L D (11.4-16.0) gm/dL Hct 33.2 L (34.0-46.0) % MCV 102.9 H (80.0-100.0) fL MCHC 29.8 L (31.0-37.0) g/dL RDW 18.0 H (11.5-15.5) % Neutrophils # 9.3 H (1.3-7.7) k/uL Chloride 111 H (96-109) mmol/L Carbon Dioxide 13.4 L (20.0-27.5) mmol/L Anion Gap 18.90 H (10.00-18.00) mmol/L BUN 28.7 H (9.0-27.0) mg/dL Creatinine 1.7 H (0.6-1.5) mg/dL Est GFR (CKD-EPI)AfAm 34.8 L (60.0-200.0) Est GFR (CKD-EPI)NonAf 30.1 L (60.0-200.0) Glucose (74-99) mg/dL Calcium 8.4 L (8.7-10.3) mg/dL Vitamin B12 1131.0 H (200.0-944.0) pg/mL RBC Folate 959 H (280 - 791) ng/mL 05/05/21 Range/Units 05:51 WBC (3.8-10.6) k/uL RBC (3.80-5.40) m/uL Hgb (11.4-16.0) gm/dL Hct (34.0-46.0) % MCV (80.0-100.0) fL MCHC (31.0-37.0) g/dL RDW (11.5-15.5) % Neutrophils # (1.3-7.7) k/uL Chloride 116 H (96-109) mmol/L Carbon Dioxide 19 L (20.0-27.5) mmol/L Anion Gap (10.00-18.00) mmol/L BUN 35 H (9.0-27.0) mg/dL Creatinine (0.6-1.5) mg/dL Est GFR (CKD-EPI)AfAm (60.0-200.0) Est GFR (CKD-EPI)NonAf (60.0-200.0) Glucose 112 H (74-99) mg/dL Calcium (8.7-10.3) mg/dL Vitamin B12 (200.0-944.0) pg/mL RBC Folate (280 - 791) ng/mL Diabetes panel 05/04/21 05/05/21 Range/Units 07:04 05:51 Sodium 144 142 (135-145) mmol/L Potassium 5.1 3.7 (3.5-5.5) mmol/L Chloride 111 H 116 H (96-109) mmol/L Carbon Dioxide 13.4 L 19 L (20.0-27.5) mmol/L BUN 28.7 H 35 H (9.0-27.0) mg/dL Creatinine 1.7 H 1.03 (0.6-1.5) mg/dL Glucose 92 112 H (70-110) mg/dL Calcium 8.4 L 8.4 (8.7-10.3) mg/dL Thyroid panel 05/04/21 Range/Units 07:04 TSH 0.739 (0.350-5.500) uIU/mL Calcium panel 05/04/21 05/05/21 Range/Units 07:04 05:51 Calcium 8.4 L 8.4 (8.7-10.3) mg/dL Pituitary panel 05/04/21 05/05/21 Range/Units 07:04 05:51 Sodium 144 142 (135-145) mmol/L Potassium 5.1 3.7 (3.5-5.5) mmol/L Chloride 111 H 116 H (96-109) mmol/L Carbon Dioxide 13.4 L 19 L (20.0-27.5) mmol/L BUN 28.7 H 35 H (9.0-27.0) mg/dL Creatinine 1.7 H 1.03 (0.6-1.5) mg/dL Glucose 92 112 H (70-110) mg/dL Calcium 8.4 L 8.4 (8.7-10.3) mg/dL TSH 0.739 (0.350-5.500) uIU/mL Adrenal panel 05/04/21 05/05/21 Range/Units 07:04 05:51 Sodium 144 142 (135-145) mmol/L Potassium 5.1 3.7 (3.5-5.5) mmol/L Chloride 111 H 116 H (96-109) mmol/L Carbon Dioxide 13.4 L 19 L (20.0-27.5) mmol/L BUN 28.7 H 35 H (9.0-27.0) mg/dL Creatinine 1.7 H 1.03 (0.6-1.5) mg/dL Glucose 92 112 H (70-110) mg/dL Calcium 8.4 L 8.4 (8.7-10.3) mg/dL
[2021-05-05] MEDS: GABAPENTIN 100 MG CAP PO SCH ×2 (16:10→21:00)
[2021-05-05] MEDS: PANTOPRAZOLE 40 MG/10 ML VIAL IVP SCH (21:00)
[2021-05-05] MEDS: ACETAMINOPHEN TAB 325 MG TAB PO PRN (21:04)
--- NOTE | 2021-05-05 22:11 | EEG ---
ELECTROENCEPHALOGRAM REPORT DATE OF SERVICE: 05/05/2021 PREAMBLE: This is a 75-year-old female with altered mental status. This study is performed to evaluate for any epileptiform activity. Patient had frequent movements and does not follow directions. EEG FINDINGS: This is a 21-channel digital EEG recorded with video component, utilizing 10/20 international system with referential and bipolar montages. The background consists of very disorganized, mixed frequencies of rhythmic 5-6 hertz theta activity seen in bihemispheric region. At times the patient has higher amplitude, sharp- appearing waves in bihemispheric region, which at times appear triphasic in nature; does not appear clearly epileptiform. Some occasional left hemispheric sharp-appearing waves were also seen. Intermittently, some more well-formed mixed alpha and theta activity was seen for short periods of time. A lot of myogenic and movement artifact was also seen during the study. Photic stimulation and hyperventilation were not performed. Different stages of sleep were not clearly seen. IMPRESSION: This is an abnormal EEG due to presence of significantly disorganized background with mixed frequencies of theta and delta activity, with some triphasic-like activity seen in bihemispheric region. This is suggestive of generalized cerebral dysfunction as can be seen with toxic metabolic encephalopathy or due to diffuse structural brain abnormality. Occasional sharp-appearing waves, particularly in the left hemispheric region, were seen sporadically. Some of these sharp appearing waves were coinciding with eye opening noted on the video section. As the EEG was technically of poor quality, I recommend a prolonged, 2.5-hour EEG for better evaluation of any underlying epileptiform activity. Clinical correlation also recommended. CAROLINE / EVELYN: [id number] / TE[place]O
--- NOTE | 2021-05-06 00:17 | P.PN ---
Subjective Progress Note Date: 05/05/21 Patient is a 75-year-old female with a known history of paroxysmal atrial fibrillation on anticoagulation with Eliquis coronary artery disease with history of stent placement, chronic back pain and opiate use, GERD, history of GI bleed, hearing disorder/deafness, peptic ulcer disease, anxiety/depression and panic disorder and previous history of smoking was brought to the hospital by EMS due to altered mental status. Patient last well-known was yesterday and today morning she was found on the bed with altered mentation by her son around 8:30 AM. Patient wakes up by her name and going back to sleep. Could not provide any history at this time. Patient did not have any fever or chills recently. No recent nausea vomiting or diarrhea. Denies any complaints of pain does not appears to be in pain.. Patient reportedly has recently discontinued her chronic pain medication. Patient was found to be in feces upon admission. CT head showed is related atrophic and chronic small vessel ischemic changes without acute intracranial process seen at this time. Chest x-ray showed chronic changes without evidence for acute pulmonary disease. EKG showed sinus rhythm with first-degree AV block Urinalysis is negative for infection Laboratory data showed WBC 11.5 hemoglobin 12.0 MCV 100.3 platelets 330 Sodium 137 potassium 3.2 chloride 106 bicarb is 17 BUN 20 and creatinine 1.17 blood sugar is 104 Calcium 8.3 bilirubin level 1.3 AST 36 ALT 15 alk phos 122 albumin 2.9 and troponin less than 0.012 UDS is positive for opiates and oxycodone. Coronavirus PCR not detected. 05/04/2021 Patient is still confused a but more awake and alert today. Patient is moaning and involuntarily moving her hands. Could not provide any history. Able to respond with verbal stimuli but does not follow simple commands.. Patient has been afebrile. Able to tolerate pured diet and able to take her medications today. Currently requiring 3 L oxygen via nasal cannula and is IV hydration with normal saline at 75 cc/h. Patient was seen by neurology. WBC 14.9 hemoglobin 9.3 and platelets 272 Sodium 144 potassium 5.1 chloride 111 bicarb is 31.4 BUN 28.7 creatinine 1.7 Current medications reviewed. 05/05/2021 She is seen in follow-up in follow up this morning and continues to be confused and slightly improved from yesterday. Patient continues to be restless and answering questions but continues with confusion. Patient is reporting abdominal pain and per nursing staff, large dark stools noted and there was a drop in hemoglobin. General surgery consulted for possible endoscopic intervention. Psychiatry and neurology following as well. Patient to undergo EEG today. Sodium continues to be elevated and changing IV fluids to D5/.45 Ns and will repeat am labs. BP is elevated and will resume losartan as kidney functions improved. Labs: wbc 11.6, hgb is 9.9, platelets are 309, sodium is 142, potassium is 3.7, bun is 35, creatinine is 1.03, calcium is 8.4 Review of systems: unable to obtain and patient continues with confusion All medications have been reviewed Active Medications Acetaminophen (Acetaminophen Tab 325 Mg Tab) 650 mg PO Q6HR PRN PRN Reason: Fever and/ or Pain Last Admin: 05/04/21 05:31 Dose: 650 mg Documented by: Apixaban (Apixaban 5 Mg Tab) 5 mg PO BID [facility]; Protocol Last Admin: 05/05/21 08:10 Dose: 5 mg Documented by: Dextrose/Sodium Chloride (Dextrose 5%-1/2ns Iv Soln) 1,000 mls @ 75 mls/hr IV .[id number] [facility] Last Admin: 05/05/21 13:36 Dose: Not Given Documented by: Levothyroxine Sodium (Levothyroxine 100 Mcg Tab) 200 mcg PO DAILY@0630 [facility] Last Admin: 05/05/21 08:10 Dose: 200 mcg Documented by: Losartan Potassium (Losartan 50 Mg Tab) 50 mg PO DAILY@1800 [facility] Metoprolol Tartrate (Metoprolol Tartrate 50 Mg Tab) 50 mg PO BID [facility] Last Admin: 05/05/21 08:10 Dose: 50 mg Documented by: Naloxone HCl (Naloxone 0.4 Mg/Ml 1 Ml Vial) 0.2 mg IV Q2M PRN PRN Reason: Opioid Reversal Pantoprazole Sodium (Pantoprazole 40 Mg/10 Ml Vial) 40 mg IVP BID [facility] PHYSICAL EXAMINATION: Patient is lying in the bed awake alert but confused and disoriented. Able to open her eyes with verbal stimuli. following commands on occasion more today. HEENT: Normocephalic. Neck is supple. Pupils reactive. Nostrils clear. Oral cavity is moist. Neck reveals no JVD, carotid bruits, or thyromegaly. CHEST EXAMINATION: Trachea is central. Symmetrical expansion. Lung herrera clear to auscultation and percussion. CARDIAC: Normal S1, S2 with no gallops. No murmurs ABDOMEN: Soft. Bowel sounds normal. No organomegaly. No abdominal bruits. tender in the left and right lower quadrants on palpation Extremities: reveal no edema. No clubbing or cyanosis, restless and constant moving of legs during exam Neurologically awake, alert, oriented x2 able to move extremities while in bed. No focal neurological deficits noted. Skin: No rash or skin lesions. Psychiatric: Could not be assessed completely Musculoskeletal: No joint swelling or deformity. Assessment: Altered mental status. Possible metabolic, toxic encephalopathy. CT head show ed no acute CVA. UDS positive for opiates and oxycodone. Delirium and involuntary upper and lower extremity movements. Acute kidney injury, improving Hypokalemia, improved Hypernatremia possible acute GI bleed with dark stools and drop in hemoglobin Chronic back pain and opiate use Paroxysmal atrial fibrillation on anticoagulation with Eliquis, currently on hold Coronary artery disease history of stent placement GERD History of GI bleed and peptic ulcer disease Anxiety/depression panic disorder Previous history of smoking DVT prophylaxis patient is already on full anticoagulation with Eliquis which is being held for possible GI bleed Plan: Patient will be continued on IV hydration and replace electrolytes. IV fluids changed to D5 half-normal saline. Encourage oral intake. EEG was ordered due to encephalopathy and rule out seizures.. Suboptimal study as patient continued with movements and confusion. No epileptiform activity noted although abnormal EEG. Neurology is on board. Continue with neurochecks and monitor for opiate withdrawal symptoms. CT head showed no acute process. MRI of the brain could not be done since the patient could not stay still. Psychiatry was consulted due to delirium. Staff reported large dark stool this morning and drop in hemoglobin slightly and general surgery consulted for possible GI bleed. Plan is for EGD/ colonoscopy on Saturday with Dr. Burt and will hold eliquis and start prep on saturday. Continue with supportive care and follow-up closely. Prognosis guarded. Objective - Vital Signs Vital signs: Vital Signs Temp 99 F 05/05/21 07:37 Pulse 78 05/05/21 07:37 Resp 18 05/05/21 07:37 BP 194/82 05/05/21 07:37 Pulse Ox 96 05/05/21 07:37 Intake & Output 05/04/21 05/05/21 05/05/21 18:59 06:59 18:59 Intake Total 450 Balance 450 Weight 72.575 kg Intake: Intake, IV Titration 450 Amount Dextrose 5%-0.9% NaCl 1, 450 000 ml @ 75 mls/hr IV . [id number] [facility] Rx#:[id number] Other: Voiding Method Diaper Diaper Incontinent Incontinent # Voids 3 3 - Labs CBC & Chem 7: 05/05/21 05:51 05/05/21 05:51 Labs: Abnormal Lab Results - Last 24 Hours (Table) 05/04/21 05/04/21 05/05/21 Range/Units 07:04 07:04 05:51 WBC 14.93 H 11.6 H (4.50-10.00) X 10*3/uL RBC 3.07 L 3.23 L (4.10-5.20) X 10*6/uL Hgb 9.3 L 9.9 L D (12.0-15.0) g/dL Hct 31.0 L 33.2 L (37.2-46.3) % MCV 101.0 H 102.9 H (80.0-97.0) fL MCHC 30.0 L 29.8 L (32.0-37.0) g/dL RDW 17.8 H 18.0 H (11.5-14.5) % Immature Gran # 0.08 H (0.00-0.04) X 10*3/uL Neutrophils # 12.51 H 9.3 H (1.80-7.70) X 10*3/uL Monocytes # 1.04 H (0.20-1.00) X 10*3/uL Eosinophils # 0.01 L (0.04-0.35) X 10*3/uL Chloride 111 H (96-109) mmol/L Carbon Dioxide 13.4 L (20.0-27.5) mmol/L Anion Gap 18.90 H (10.00-18.00) mmol/L BUN 28.7 H (9.0-27.0) mg/dL Creatinine 1.7 H (0.6-1.5) mg/dL Est GFR (CKD-EPI)AfAm 34.8 L (60.0-200.0) Est GFR (CKD-EPI)NonAf 30.1 L (60.0-200.0) Glucose (74-99) mg/dL Calcium 8.4 L (8.7-10.3) mg/dL Vitamin B12 1131.0 H (200.0-944.0) pg/mL 05/05/21 Range/Units 05:51 WBC (4.50-10.00) X 10*3/uL RBC (4.10-5.20) X 10*6/uL Hgb (12.0-15.0) g/dL Hct (37.2-46.3) % MCV (80.0-97.0) fL MCHC (32.0-37.0) g/dL RDW (11.5-14.5) % Immature Gran # (0.00-0.04) X 10*3/uL Neutrophils # (1.80-7.70) X 10*3/uL Monocytes # (0.20-1.00) X 10*3/uL Eosinophils # (0.04-0.35) X 10*3/uL Chloride 116 H (96-109) mmol/L Carbon Dioxide 19 L (20.0-27.5) mmol/L Anion Gap (10.00-18.00) mmol/L BUN 35 H (9.0-27.0) mg/dL Creatinine (0.6-1.5) mg/dL Est GFR (CKD-EPI)AfAm (60.0-200.0) Est GFR (CKD-EPI)NonAf (60.0-200.0) Glucose 112 H (74-99) mg/dL Calcium (8.7-10.3) mg/dL Vitamin B12 (200.0-944.0) pg/mL
[2021-05-06] MEDS: DEXTROSE 5%-0.45% NACL 1,000 ML IV SCH ×2 (03:27→14:53)
[2021-05-06] MEDS: LEVOTHYROXINE 100 MCG TAB PO SCH (06:02)
[2021-05-06] MEDS: ACETAMINOPHEN TAB 325 MG TAB PO PRN ×2 (09:08→14:53)
[2021-05-06] MEDS: METOPROLOL TARTRATE 50 MG TAB PO SCH ×2 (09:08→20:35)
[2021-05-06] MEDS: PANTOPRAZOLE 40 MG/10 ML VIAL IVP SCH ×2 (09:08→20:35)
[2021-05-06] MEDS: GABAPENTIN 100 MG CAP PO SCH ×3 (09:09→20:35)
--- NOTE | 2021-05-06 10:33 | P.PN ---
Subjective Progress Note Date: 05/05/21 Patient was seen for a follow-up. Patient states that she came to the hospital because she had "heart attack". Patient states that she had 4 children, but she lives by herself. Sometimes she stays with her son. Patient states that she walks by herself, does not use any device. Patient says that she got a stomach ache, feels tired. Patient denies headache, no dizziness. I spoke to patient's daughter on the phone. She provided extensive history. Patient's daughter states that she has long-standing history of prescription drug abuse, and if she can, she would by those prescription medications off the street. She gets her prescription for a month, which she takes more than recommended, runs out and then gets detoxed every month. She has been coming to the hospital every month with withdrawal symptoms. This cycle has been going on for last 1 year. She would take pain pills, Xanax, and gets hives with it. She believes that her mom took something else with this spell. Patient's daughter states that she is to follow up with a pain doctor who would give her 120 [place] a month, and 30 morphine pills a month. Patient also abuses on Xanax. Patient's daughter called the pain specialist that she was getting too much medication from him as well as she sometimes gets out of the street. The pain specialist stopped giving her morphine pills. The pain specialists had discharge patient from his service because she was getting pain medication from other physicians as well. For the time being he was giving her 60 tablets of [place] every 2 weeks. Patient was recently admitted to the hospital on 04/16/2021 with a detox. Patient's daughter believes that her drug habit is "out of control". She also drinks alcohol on top of it. Patient's daughter states that if someone tries to manage her medications, she becomes very mean and she does not get along with anybody. One time, a house physician tried to manage her medications and she fired the doctor. She lives by herself, but does not care about her hygiene. Daughter states that she will take anything that she can get off the street. She believes that she has developed onset of dementia, as her house is very dirty, there are bedbugs, does not take care of herself. She does not pay her bills, and frequently utilizes are shut off. She is thinking of calling Adult Protective Services. Patient most recently was at her son's house when she started detoxing again, was sleeping for last 2 days. Patient passed bowel movement on his couch and couldn't get up. She was incoherent keeps on yelling "what", "what's going on". She was grabbing for air, was "out of it". Therefore they called the ambulance and patient was brought to the hospital. Objective - Vital Signs Vital signs: Vital Signs Temp 99 F 05/05/21 07:37 Pulse 80 05/05/21 10:47 Resp 20 05/05/21 10:47 BP 194/82 05/05/21 07:37 Pulse Ox 96 05/05/21 07:37 Intake & Output 05/04/21 05/05/21 05/05/21 18:59 06:59 18:59 Intake Total 450 Balance 450 Weight 72.575 kg Intake: Intake, IV Titration 450 Amount Dextrose 5%-0.9% NaCl 1, 450 000 ml @ 75 mls/hr IV . [id number] [facility] Rx#:[id number] Other: Voiding Method Diaper Diaper Diaper Incontinent Incontinent Incontinent # Voids 3 3 - Exam On examination patient is alert and awake. She is still slightly slow ment ation. Restlessness, akathisia has resolved. Patient knows that she is in [facility] in [facility]. She states that she lives in [facility]. She could not tell the current month or the year. She knows her name and date of . She states that Bertram is the current president. Pupils are round and reacting, visual herrera are full, face is symmetric. Tongue protrudes to the midline. Muscle strength is normal in the arms and legs. No ataxia. - Labs CBC & Chem 7: 05/05/21 05:51 05/05/21 05:51 Labs: Abnormal Lab Results - Last 24 Hours (Table) 05/04/21 05/04/21 05/04/21 Range/Units 07:04 07:04 07:04 WBC (3.8-10.6) k/uL RBC (3.80-5.40) m/uL Hgb (11.4-16.0) gm/dL Hct (34.0-46.0) % MCV (80.0-100.0) fL MCHC (31.0-37.0) g/dL RDW (11.5-15.5) % Immature Gran # 0.08 H (0.00-0.04) X 10*3/uL Neutrophils # 12.51 H (1.80-7.70) X 10*3/uL Monocytes # 1.04 H (0.20-1.00) X 10*3/uL Eosinophils # 0.01 L (0.04-0.35) X 10*3/uL Chloride 111 H (96-109) mmol/L Carbon Dioxide 13.4 L (20.0-27.5) mmol/L Anion Gap 18.90 H (10.00-18.00) mmol/L BUN 28.7 H (9.0-27.0) mg/dL Creatinine 1.7 H (0.6-1.5) mg/dL Est GFR (CKD-EPI)AfAm 34.8 L (60.0-200.0) Est GFR (CKD-EPI)NonAf 30.1 L (60.0-200.0) Glucose (74-99) mg/dL Calcium 8.4 L (8.7-10.3) mg/dL Vitamin B12 1131.0 H (200.0-944.0) pg/mL RBC Folate 959 H (280 - 791) ng/mL 05/05/21 05/05/21 Range/Units 05:51 05:51 WBC 11.6 H (3.8-10.6) k/uL RBC 3.23 L (3.80-5.40) m/uL Hgb 9.9 L D (11.4-16.0) gm/dL Hct 33.2 L (34.0-46.0) % MCV 102.9 H (80.0-100.0) fL MCHC 29.8 L (31.0-37.0) g/dL RDW 18.0 H (11.5-15.5) % Immature Gran # (0.00-0.04) X 10*3/uL Neutrophils # 9.3 H (1.80-7.70) X 10*3/uL Monocytes # (0.20-1.00) X 10*3/uL Eosinophils # (0.04-0.35) X 10*3/uL Chloride 116 H (96-109) mmol/L Carbon Dioxide 19 L (20.0-27.5) mmol/L Anion Gap (10.00-18.00) mmol/L BUN 35 H (9.0-27.0) mg/dL Creatinine (0.6-1.5) mg/dL Est GFR (CKD-EPI)AfAm (60.0-200.0) Est GFR (CKD-EPI)NonAf (60.0-200.0) Glucose 112 H (74-99) mg/dL Calcium (8.7-10.3) mg/dL Vitamin B12 (200.0-944.0) pg/mL RBC Folate (280 - 791) ng/mL Assessment and Plan Assessment: * Acute onset of altered mental status on waking up yesterday, most likely due t o drug withdrawal. Patient has long-standing history of prescription drug abuse. Please refer to the history provided by patient's daughter as above. Patient's mentation has much improved. * Past medical history reports of atrial fibrillation, but currently not on any anticoagulation * Hypertension * Reported history of laryngeal cancer (per electronic record). Plan: * EEG was performed today. This is an abnormal EEG due to presence of significantly disorganized background with mixed frequencies of theta and delta slow wave activity, with some triphasic-like activity seen in bihemispheric region. This is suggestive of generalized cerebral dysfunction as can be seen with toxic metabolic encephalopathy or due to diffuse structural brain abnormality. Occasional sharp-appearing waves particularly in the left hemispheric region were seen sporadically. Some of these waves were coinciding with patient's eye blinking. As the EEG was technically poor quality, a prolonged, 2.5 hour EEG was recommended for further evaluation of any underlying epileptiform activity. Clinical correlation recommended. * Per patient's daughter, she never had any history of seizures ever in the past. We will hold off on antiepileptic medication, as her current event is likely from opiate withdrawal/substance abuse. We will perform 2.5 hour EEG on Saturday. * Suggest psychiatry consultation for delirium and severe, chronic prescription drug abuse as mentioned above in the HPI section.
[2021-05-06 12:47] LABS: Basophils # (A) 0.03 X 10*3/uL (0.00-0.10); Basophils % (A) 0.3 %; Eosinophils # (A) 0.11 X 10*3/uL (0.04-0.35); Eosinophils % (A) 1.3 %; HCT 29.4 % (37.2-46.3); Immature Grans, Automated 0.3 %; Lymphocytes # (A) 2.12 X 10*3/uL (0.90-5.00); Lymphocytes % (A) 24.5 %; MCH 29.9 pg (27.0-32.0); MCHC 30.6 g/dL (32.0-37.0); MCV 97.7 fL (80.0-97.0); Mean Platelet Volume 11.5 fL (9.5-12.2); Monocytes # (A) 0.92 X 10*3/uL (0.20-1.00); Monocytes % (A) 10.6 %; NRBC Per 100 WBC 0 /100 WBCS (0.0-0.0); Neutrophils # (A) 5.46 X 10*3/uL (1.80-7.70); Platelet Count 249 X 10*3/uL (140-440); RBC 3.01 X 10*6/uL (4.10-5.20); RDW 18.5 % (11.5-14.5); WBC 8.67 X 10*3/uL (4.50-10.00)
--- NOTE | 2021-05-06 13:09 | P.PN ---
Subjective Progress Note Date: 05/06/21 CHIEF COMPLAINT: GI bleed HISTORY OF PRESENT ILLNESS: The patient is a 75-year-old female with complicated medical history including a Suzanna-en-Y gastric bypass, perforated diverticulitis status post reversal who now has maroon stools due to GI bleed. Patient has pre-existing history of gastric ulcers of her gastric bypass. She is tolerating liquid diet. No further signs of bleeding. She denies any blood in stools. ROS: No fevers or chills. No new chest pain. No productive sputum PHYSICAL EXAM: VITAL SIGNS: Reviewed CONSTITUTIONAL: Well developed and in no acute distress. EYES: Conjuctivae without sclera icterus. Extraocular movements grossly intact. HEAD, EARS, NOSE, THROAT: Moist buccal mucosa. Head is atraumatic, normocephalic. No nasal drainage. RESPIRATORY: Non-labored respirations and equal bilateral excursions. CARDIOVASCULAR: Palpable 2+ radial pulses. ABDOMEN: No peritonitis. MUSCULOSKELETAL: No gross deformity of the lower extremities noted. No clubbing. No cyanosis. SKIN: Good skin turgor. Well perfused. NEUROLOGIC: Cranial nerves II through XII grossly intact. No focal or lateralizing signs. PSYCH: Alert to person. CLINICAL LABS: Reviewed. WBC down from over 14,000 to over 11,000. Hemoglobin low however improved from 9.3-9.9. Today, hemoglobin down to 9.0. ASSESSMENT: 1. Gastrointestinal bleeding PLAN: 1. Upper and lower endoscopy pending stability of hemoglobin. Objective - Vital Signs Vital signs: Vital Signs Temp 98.1 F 05/06/21 05:00 Pulse 72 05/06/21 05:00 Resp 16 05/06/21 05:00 BP 156/78 05/06/21 05:00 Pulse Ox 91 L 05/06/21 05:00 Intake & Output 05/05/21 05/06/21 05/06/21 18:59 06:59 18:59 Intake Total 840 Balance 840 Intake: Oral 840 Other: Voiding Method Diaper Diaper Diaper Incontinent Incontinent Incontinent # Voids 1 3 # Bowel Movements 1 - Labs CBC & Chem 7: 05/06/21 07:46 05/05/21 05:51
[2021-05-06 13:17] LABS: African American GFR (CKD) 99.2 (60.0-200.0); Anion Gap 12.2 mmol/L (10.00-18.00); BUN/Creat Ratio 39.62 Ratio (12.00-20.00); Blood Urea Nitrogen 26.9 mg/dL (9.0-27.0); Carbon Dioxide 17.3 mmol/L (20.0-27.5); Non-African American GFR(CKD) 85.6 (60.0-200.0); Potassium 3.4 mmol/L (3.5-5.5)
[2021-05-06] MEDS ORDERED: Potassium Replacement Protocol 1 EACH MISC MISCELLANE PRN (13:20)
[2021-05-06] MEDS: POTASSIUM CHLORIDE ER 20 MEQ TAB.ER PO SCH (14:53)
--- NOTE | 2021-05-06 15:14 | P.CN ---
Psychiatric Consult - . Consult date: 05/05/21 Consult:: 05/05/21 15:02 Psychiatric Consultation : 05/05/2021 Identifying data: Ths 75-yr old female living independently in the community.She Was admitted to emerge initially to the medical unit with neurology consultation. I was asked to contact up in psychiatric consultation fall her comprehend all alternative mental status. She was seen in person today in the unit. I have reviewed all other clinical document medical admission, neurology consultation medication on the and related investigation. Medica note showed she has a long-standing history of panic disorder and depression. HPI: Medical admission easily identified that she may have misused opiate if provided." Osteoarthritis. I IV review of medical profile. She has not been on any his not call take she is in remission. However she was able to elaborate that she has been on Vicodin all quite some time. She was unable to pull why is exact dosage regimen. She she was unable to provide any relevant infromation regarding the opioid dosage regimen.Review of her medical history and neurology consultation did not reveal new cerebro- or cardiovascular insult. CT and MRI imaging did not conclude with acute intra=cranial hemmorhage. Ichemic or hemmorrhage infarct and related delirium. When I inquired about her recall of her admission, she related how she visited her son who brought her to the emergency following her fecal incontinence. She became defensive when I inquired about her pain control and whether she had any problem with organizing her medicaiton. She admitted she may have been on VICODIN for her pain control, but denied any substance use. Urine toxicology screen was positive for opioids. I understand Naloxone was admistered at the Emergency to manage her altered mental status. I do not have any collateral data regarding the sources of her opioids. with her urine toxicology screen being positive, and naloxone administration , she may have experienced acute precipiated withdrawal from opiods. She may have obtained her opioids from community unknown sourcces or she may have "saved" her medication. Her family and PCP would be able to collaborate her history. Her denial of her narocotic use: VIcodin, for coping with her panic and depressive symptms,most likely explained her vague substance abuse behavior. Past medical history : She has signficant cardio-vascular history : atrial fibrillation and was maintained on apixabin. She was on thyroid for her thyroid disorder; hypothyrodism. Regaridng her osteroarthris, her history was vague. She was investigated for her stool and bowel changes. When she was seen by neuorlogy, she was reported to exhibit restlessness with constant fidgetting. Full brain imaging work up was in place. past psychiatry history : unreliable but panic and depressive disorders were entered by medical consutlation. Functional system review; as elaborated in the medicine and neurlogy note Psychiatric exam. (abbreviated). She was somewhat uncomfortable with prolonged psychiatric exam. Her oxygenation on oxygen nasal prong was within normal limits with her half finished lunch. She become more comfortable and talked freely with no selective hearing loss with the facial mask interview. She was fully alert with no change in her sensorium Despite her short responses, she was oriented to place; she recognized she was in the hospital. She recalled how her son brought her to [facility] with loss of bowel control. She was coherent and did not have apathy. She was slightly agiated over her rhythmic jerky movements of her extremities. and almost spasmic movement. Her respiratory movements were at times affected. She stated she was vicodin fo rhe" shoulder pain" and denied she mis-used her pain Rx. She denied any hallucinations or delusions No hopelessness. Cognition: oriented short term memery relatively intact, Marginal insight into her substance use. Diagnostic formuation 1. Full CV/[employer] full work pending : to rule out prodromal stage of vascular dementia or Alzheimer dementia of vascular component 2. Most likely opioid withdrawal or opioid-induced withdrawal precipitated by naloxone 3. Opioid use disorder relatively severity. 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 Full history obtained from family RE: Pain control Rx management 2. Low dosage of GABApentin 100 mg po tid clonidine 0.1 mg bid/tid but orthostatic hypotension has to be monitored closely 3. Full dementia work up once Med/Neurological work up were completed. 4. After care; REHAB. on drug abuse and Pain control 5. Follow up on Saturday
[2021-05-06] MEDS: LOSARTAN 50 MG TAB PO SCH (17:51)
--- NOTE | 2021-05-06 19:42 | P.PN ---
Subjective Progress Note Date: 05/06/21 05/06/2021: This is a Tele-neurology followup performed today on 05/06/2021. Patient is very much alert and awake, in no distress. She is still slightly disoriented as per examination below. Patient completely denies any abuse of pain medication. She says that she is getting Vicodin 3 times a day for back pain. She states that she has not taken any pain medication for last 2 days (which is expected as she is in the hospital). Patient says that she has not taken Xanax "for a while". Patient states her back is killing her. Asking for pain medication. Patient states that she sometimes drinks when she is in the company of her friends, which is very infrequent. She will drink one to 2 glasses of screwdriver which is whisky with orange juice. She lives by herself. She believes that she manages well. 05/05/2021: I spoke to patient's daughter on the phone. She provided extensive history. Patient's daughter states that she has long-standing history of prescription drug abuse, and if she can, she would buy those prescription medications off the street. She gets her prescription for a month, which she takes more than recommended, runs out and then gets detoxed every month. She has been coming to the hospital every month with withdrawal symptoms. This cy juan diego has been going on for last 1 year. She would take pain pills, and gets high with it. She believes that her mom took something else with this spell (not sure if she took some prescription medication off her son's closet). Patient's daughter states that she used to follow up with a pain doctor who would give her 120 [place] a month, and 30 morphine pills a month. Patient also had abused on Xanax in the past. Patient's daughter called the pain specialist that she was getting too much medication from him. The pain specialist stopped giving her morphine pills. The pain specialists had discharged patient from his service because apparently patient was getting pain medication from other physicians as well. For the time being he was giving her 60 tablets of [place] every 2 weeks. Patient's daughter states that she was recently admitted to the hospital on 04/16/2021 with a detox. Patient's daughter believes that her drug habit is "out of control". She also drinks alcohol on top of it. Patient's daughter states that if someone tries to manage her medications, she becomes very mean and she does not get along with anybody. One time, a house physician tried to manage her medications and she fired the doctor. She lives by herself, but does not care about her hygiene. Daughter states that she will take anything that she can get off the street (referring to prescription medications). She believes that she has developed onset of dementia, as her house is very dirty, there are bedbugs, does not take care of herself. She does not pay her bills, and frequently utilities are shut off. She is thinking of calling Adult Protective Services. Patient most recently was at her son's house when she started detoxing again, was sleeping for last 2 days. Patient passed bowel movement on his couch and couldn't get up. She was incoherent keeps on yelling "what", "what's going on". She was grabbing objects from air, and was "out of it". Therefore they called the ambulance and patient was brought to the hospital. Objective - Vital Signs Vital signs: Vital Signs Temp 98.1 F 05/06/21 05:00 Pulse 72 05/06/21 05:00 Resp 16 05/06/21 05:00 BP 156/78 05/06/21 05:00 Pulse Ox 91 L 05/06/21 05:00 Intake & Output 05/05/21 05/06/21 05/06/21 18:59 06:59 18:59 Intake Total 840 Balance 840 Intake: Oral 840 Other: Voiding Method Diaper Diaper Diaper Incontinent Incontinent Incontinent # Voids 1 3 # Bowel Movements 1 - Exam On examination patient is alert and awake. Patient states that it is April and the year is 2004. She knows that she is in [facility]. In [facility]. She believes Maynor is the president. I even gave him 5 choices including Biden, but she said it was Obama. She states she has 4 children. Speech and language functions are normal. No aphasia or dysarthria. Pupils are round and reacting to light. Face is symmetric. Strength is normal in the arms and legs. Sensations equal. - Labs CBC & Chem 7: 05/06/21 07:46 05/06/21 07:46 Labs: Abnormal Lab Results - Last 24 Hours (Table) 05/06/21 05/06/21 Range/Units 07:46 07:46 RBC 3.01 L (4.10-5.20) X 10*6/uL Hgb 9.0 L (12.0-15.0) g/dL Hct 29.4 L (37.2-46.3) % MCV 97.7 H (80.0-97.0) fL MCHC 30.6 L (32.0-37.0) g/dL RDW 18.5 H (11.5-14.5) % Potassium 3.4 L (3.5-5.5) mmol/L Carbon Dioxide 17.3 L (20.0-27.5) mmol/L BUN/Creatinine Ratio 39.62 H (12.00-20.00) Ratio Calcium 8.0 L (8.7-10.3) mg/dL Assessment and Plan Assessment: * Acute onset of altered mental status on waking, most likely due to drug withdrawal. Patient has long-standing history of prescription drug abuse. Please refer to the history provided by patient's daughter as above. Patient's mentation has much improved. * Atrial fibrillation, patient was on Eliquis, currently held because of GI bleed. 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 Plan: * EEG performed on 05/06/2020 was abnormal EEG due to presence of significantly disorganized background with mixed frequencies of theta and delta slow wave activity, with some triphasic-like activity seen in bihemispheric region. This is suggestive of generalized cerebral dysfunction as can be seen with toxic metabolic encephalopathy or due to diffuse structural brain abnormality. Occasional sharp-appearing waves particularly in the left hemispheric region were seen sporadically. Some of these waves were coinciding with patient's eye blinking. As the EEG was technically poor quality, a prolonged, 2.5 hour EEG was recommended for further evaluation of any underlying epileptiform activity. Clinical correlation recommended. * Per patient's daughter, she never had any history of seizures ever in the past. We will hold off on antiepileptic medication, as her current event is likely from opiate withdrawal/substance abuse. We will perform 2.5 hour EEG on Saturday. * Await psychiatric consultation. * Patient undergoing EGD and colonoscopy also on Saturday.
[2021-05-07] MEDS: DEXTROSE 5%-0.45% NACL 1,000 ML IV SCH ×2 (06:10→17:37)
[2021-05-07] MEDS: LEVOTHYROXINE 100 MCG TAB PO SCH (06:15)
[2021-05-07 07:28] LABS: Anisocytosis Slight; HCT 32.9 % (34.0-46.0); HGB 10.3 gm/dL (11.4-16.0); Hypochromasia Moderate; MCH 30.9 pg (25.0-35.0); MCHC 31.4 g/dL (31.0-37.0); MCV 98.4 fL (80.0-100.0); Macrocytosis Slight; Platelet Count 296 k/uL (150-450); RBC 3.35 m/uL (3.80-5.40); RDW 17.9 % (11.5-15.5); WBC 7.1 k/uL (3.8-10.6)
[2021-05-07] MEDS: GABAPENTIN 100 MG CAP PO SCH ×3 (07:44→22:03)
[2021-05-07] MEDS: PANTOPRAZOLE 40 MG/10 ML VIAL IVP SCH ×2 (07:44→22:03)
[2021-05-07] MEDS: ACETAMINOPHEN TAB 325 MG TAB PO PRN (07:44)
[2021-05-07] MEDS: METOPROLOL TARTRATE 50 MG TAB PO SCH ×2 (07:44→22:03)
[2021-05-07 07:56] LABS: Band Neutrophils % 1 %; Eosinophils # (M) 0.28 k/uL (0-0.7); Lymphocytes # (M) 1.99 k/uL (1.0-4.8); Monocytes # (M) 0.99 k/uL (0-1.0); Neutrophils % (M) 53 %; Nucleated Red Blood Cells 0 /100 WBC (0-0); Total Cells Counted 100
[2021-05-07 08:03] LABS: African American GFR (CKD) 80 (>60 ml/min/1.73 sqM); Anion Gap 2 mmol/L; Blood Urea Nitrogen 33 mg/dL (7-17); Calcium 8.2 mg/dL (8.4-10.2); Carbon Dioxide 19 mmol/L (22-30); Chloride 113 mmol/L (98-107); Glucose 85 mg/dL (74-99); Magnesium 1.8 mg/dL (1.6-2.3); Non-African American GFR(CKD) 70 (>60 ml/min/1.73 sqM); Potassium 4.4 mmol/L (3.5-5.1); Sodium 134 mmol/L (137-145)
[2021-05-07] MEDS ORDERED: PEG 3350-NA SULF,BICARB,CL/KCL 4,000 ML BOTTLE PO ONE (09:00)
--- NOTE | 2021-05-07 14:05 | P.PN ---
Subjective Progress Note Date: 05/07/21 CHIEF COMPLAINT: GI bleed HISTORY OF PRESENT ILLNESS: The patient is a 75-year-old female with complicated medical history including a Suzanna-en-Y gastric bypass, perforated diverticulitis status post reversal. Patient has pre-existing history of gastric ulcers of her gastric bypass. She is tolerating liquid diet. She denies any abdominal pain. No further signs of bleeding. ROS: No fevers or chills. No new chest pain. No productive sputum PHYSICAL EXAM: VITAL SIGNS: Reviewed CONSTITUTIONAL: Well developed and in no acute distress. EYES: Conjuctivae without sclera icterus. Extraocular movements grossly intact. HEAD, EARS, NOSE, THROAT: Moist buccal mucosa. Head is atraumatic, normo cephalic. No nasal drainage. RESPIRATORY: Non-labored respirations and equal bilateral excursions. CARDIOVASCULAR: Palpable 2+ radial pulses. ABDOMEN: No peritonitis. Nontender. MUSCULOSKELETAL: No gross deformity of the lower extremities noted. No clubbing. No cyanosis. SKIN: Good skin turgor. Well perfused. NEUROLOGIC: Cranial nerves II through XII grossly intact. No focal or lateral izing signs. PSYCH: Alert to person. CLINICAL LABS: Reviewed. Hemoglobin trending upper from 9.0-10.3. ASSESSMENT: 1. Gastrointestinal bleeding PLAN: 1. Patient is currently on bowel prep. 2. Upper and lower endoscopy described for anemia Objective - Vital Signs Vital signs: Vital Signs Temp 97.7 F 05/07/21 11:03 Pulse 72 05/07/21 11:03 Resp 18 05/07/21 11:03 BP 136/57 05/07/21 11:03 Pulse Ox 100 05/07/21 11:03 Intake & Output 05/06/21 05/07/21 05/07/21 18:59 06:59 18:59 Intake Total 870 Balance 870 Intake: Intake, IV Titration 0 Amount Dextrose 5%-0.45% NaCl 1, 0 000 ml @ 75 mls/hr IV . [id number] [facility] Rx#:[id number] Oral 870 Other: Voiding Method Diaper Toilet Toilet Incontinent Diaper Incontinent # Voids 1 2 1 # Bowel Movements 0 1 1 - Labs CBC & Chem 7: 05/07/21 07:01 05/07/21 07:01 Labs: Abnormal Lab Results - Last 24 Hours (Table) 05/07/21 05/07/21 Range/Units 07:01 07:01 RBC 3.35 L (3.80-5.40) m/uL Hgb 10.3 L (11.4-16.0) gm/dL Hct 32.9 L (34.0-46.0) % RDW 17.9 H (11.5-15.5) % Sodium 134 L (137-145) mmol/L Chloride 113 H (98-107) mmol/L Carbon Dioxide 19 L (22-30) mmol/L BUN 33 H (7-17) mg/dL Calcium 8.2 L (8.4-10.2) mg/dL Assessment and Plan (1) Acute blood loss anemia Current Visit: No Status: Acute Code(s): D62 - ACUTE POSTHEMORRHAGIC ANEMIA SNOMED Code(s): 374277445 (2) GI bleed Current Visit: No Status: Acute Code(s): K92.2 - GASTROINTESTINAL HEMORRHAGE, UNSPECIFIED SNOMED Code(s): 78696261
[2021-05-07] MEDS: LOSARTAN 50 MG TAB PO SCH (17:37)
--- NOTE | 2021-05-07 23:42 | P.PN ---
Subjective Progress Note Date: 05/07/21 05/07/2021: This is a tele-medicine neurology follow-up performed on this patient today on 05/07/2021. Patient denies any focal symptoms. Denies any headache. She feels fine. Complaining of low back pain and asking for pain medication. 05/06/2021: This is a Tele-neurology followup performed today on 05/06/2021. Patient is very much alert and awake, in no distress. She is still slightly disoriented as per examination below. Patient completely denies any abuse of pain medication. She says that she is getting Vicodin 3 times a day for back pain. She states that she has not taken any pain medication for last 2 days (which is expected as she is in the hospital). Patient says that she has not taken Xanax "for a while". Patient states her back is killing her. Asking for pain medication. Patient states that she sometimes drinks when she is in the company of her friends, which is very infrequent. She will drink one to 2 glasses of screwdriver which is whisky with orange juice. She lives by herself. She believes that she manages well. 05/05/2021: I spoke to patient's daughter on the phone. She provided extensive history. Patient's daughter states that she has long-standing history of prescription drug abuse, and if she can, she would buy those prescription medications off the street. She gets her prescription for a month, which she takes more than recommended, runs out and then gets detoxed every month. She has been coming to the hospital every month with withdrawal symptoms. This cycle has been going on for last 1 year. She would take pain pills, and gets high with it. She believes that her mom took something else with this spell (not sure if she took some prescription medication off her son's closet). Patient's daughter states that she used to follow up with a pain doctor who would give her 120 [place] a month, and 30 morphine pills a month. Patient also had abused on Xanax in the past. Patient's daughter called the pain specialist that she was getting too much medication from him. The pain specialist stopped giving her morphine pills. The pain specialists had discharged patient from his service because apparently patient was getting pain medication from other physicians as well. For the time being he was giving her 60 tablets of [place] every 2 weeks. Patient's daughter states that she was recently admitted to the hospital on 04/16/2021 with a detox. Patient's daughter believes that her drug habit is "out of control". She also drinks alcohol on top of it. Patient's daughter states that if someone tries to manage her medications, she becomes very mean and she does not get along with anybody. One time, a house physician tried to manage her medications and she fired the doctor. She lives by herself, but does not care about her hygiene. Daughter states that she will take anything that she can get off the street (referring to prescription medications). She believes that she has developed onset of dementi a, as her house is very dirty, there are bedbugs, does not take care of herself. She does not pay her bills, and frequently utilities are shut off. She is thinking of calling Adult Protective Services. Patient most recently was at her son's house when she started detoxing again, was sleeping for last 2 days. Patient passed bowel movement on his couch and couldn't get up. She was incoherent keeps on yelling "what", "what's going on". She was grabbing objects from air, and was "out of it". Therefore they called the ambulance and patient was brought to the hospital. Objective - Vital Signs Vital signs: Vital Signs Temp 97.6 F 05/07/21 21:00 Pulse 79 05/07/21 21:00 Resp 18 05/07/21 21:00 BP 99/61 05/07/21 21:00 Pulse Ox 98 05/07/21 21:00 Intake & Output 05/07/21 05/07/21 05/08/21 06:59 18:59 06:59 Intake Total 870 480 Balance 870 480 Intake: Intake, IV Titration 0 Amount Dextrose 5%-0.45% NaCl 1, 0 000 ml @ 75 mls/hr IV . [id number] [facility] Rx#:[id number] Oral 870 480 Other: Voiding Method Toilet Toilet Toilet Diaper Diaper Incontinent # Voids 2 1 # Bowel Movements 1 1 - Exam On examination patient is alert and awake. Patient clinically stable. Detail examination deferred. - Labs CBC & Chem 7: 05/07/21 07:01 05/07/21 07:01 Labs: Abnormal Lab Results - Last 24 Hours (Table) 05/07/21 05/07/21 Range/Units 07:01 07:01 RBC 3.35 L (3.80-5.40) m/uL Hgb 10.3 L (11.4-16.0) gm/dL Hct 32.9 L (34.0-46.0) % RDW 17.9 H (11.5-15.5) % Sodium 134 L (137-145) mmol/L Chloride 113 H (98-107) mmol/L Carbon Dioxide 19 L (22-30) mmol/L BUN 33 H (7-17) mg/dL Calcium 8.2 L (8.4-10.2) mg/dL Assessment and Plan Assessment: * Acute onset of altered mental status on waking, most likely due to drug withdrawal. Patient has long-standing history of prescription drug abuse. Please refer to the history provided by patient's daughter as above. Patient's mentation has much improved. * Atrial fibrillation, patient was on Eliquis, currently held because of GI bleed. 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 Plan: * EEG performed on 05/06/2020 was abnormal EEG due to presence of significantly disorganized background with mixed frequencies of theta and delta slow wave activity, with some triphasic-like activity seen in bihemispheric region. This is suggestive of generalized cerebral dysfunction as can be seen with toxic metabolic encephalopathy or due to diffuse structural brain abnormality. Occasional sharp-appearing waves particularly in the left hemispheric region were seen sporadically. Some of these waves were coinciding with patient's eye blinking. As the EEG was technically poor quality, a prolonged, 2.5 hour EEG was recommended for further evaluation of any underlying epileptiform activity. Clinical correlation recommended. * Per patient's daughter, she never had any history of seizures ever in the past. We will hold off on antiepileptic medication, as her current event is likely from opiate withdrawal/substance abuse. We will perform 2.5 hour EEG on Saturday. Patient's mentation has much improved. * Psychiatric consultation input appreciated. * Patient undergoing EGD and colonoscopy also on Saturday. * Dr. Sergey Olsen Will resume neurology service in the morning.
[2021-05-08] MEDS: LEVOTHYROXINE 100 MCG TAB PO SCH (05:44)
[2021-05-08] MEDS: DEXTROSE 5%-0.45% NACL 1,000 ML IV SCH ×2 (05:44→14:53)
[2021-05-08 07:17] LABS: Anisocytosis Slight; HCT 28.9 % (34.0-46.0); HGB 9.1 gm/dL (11.4-16.0); Hypochromasia Marked; MCH 31.3 pg (25.0-35.0); MCHC 31.3 g/dL (31.0-37.0); MCV 99.9 fL (80.0-100.0); Macrocytosis Slight; Mean Platelet Volume 8.6; Platelet Count 296 k/uL (150-450); RBC 2.89 m/uL (3.80-5.40); RDW 17.5 % (11.5-15.5); WBC 5.2 k/uL (3.8-10.6)
[2021-05-08 07:30] LABS: African American GFR (CKD) >90 (>60 ml/min/1.73 sqM); Anion Gap 1 mmol/L; Blood Urea Nitrogen 27 mg/dL (7-17); C Reactive Protein 6.4 mg/dL (<1.0); Calcium 7.9 mg/dL (8.4-10.2); Carbon Dioxide 21 mmol/L (22-30); Chloride 111 mmol/L (98-107); Glucose 91 mg/dL (74-99); Non-African American GFR(CKD) 86 (>60 ml/min/1.73 sqM); Potassium 4.2 mmol/L (3.5-5.1); Sodium 133 mmol/L (137-145)
--- NOTE | 2021-05-08 10:30 | P.PN ---
Subjective Progress Note Date: 05/06/21 Patient is a 75-year-old female with a known history of paroxysmal atrial fibrillation on anticoagulation with Eliquis coronary artery disease with history of stent placement, chronic back pain and opiate use, GERD, history of GI bleed, hearing disorder/deafness, peptic ulcer disease, anxiety/depression a nd panic disorder and previous history of smoking was brought to the hospital by EMS due to altered mental status. Patient last well-known was yesterday and today morning she was found on the bed with altered mentation by her son around 8:30 AM. Patient wakes up by her name and going back to sleep. Could not provide any history at this time. Patient did not have any fever or chills recently. No recent nausea vomiting or diarrhea. Denies any complaints of pain does not appears to be in pain.. Patient reportedly has recently discontinued her chronic pain medication. Patient was found to be in feces upon admission. CT head showed is related atrophic and chronic small vessel ischemic changes without acute intracranial process seen at this time. Chest x-ray showed chronic changes without evidence for acute pulmonary disease. EKG showed sinus rhythm with first-degree AV block Urinalysis is negative for infection Laboratory data showed WBC 11.5 hemoglobin 12.0 MCV 100.3 platelets 330 Sodium 137 potassium 3.2 chloride 106 bicarb is 17 BUN 20 and creatinine 1.17 blood sugar is 104 Calcium 8.3 bilirubin level 1.3 AST 36 ALT 15 alk phos 122 albumin 2.9 and troponin less than 0.012 UDS is positive for opiates and oxycodone. Coronavirus PCR not detected. 05/04/2021 Patient is still confused a but more awake and alert today. Patient is moaning and involuntarily moving her hands. Could not provide any history. Able to respond with verbal stimuli but does not follow simple commands.. Patient has been afebrile. Able to tolerate pured diet and able to take her medications today. Currently requiring 3 L oxygen via nasal cannula and is IV hydration with normal saline at 75 cc/h. Patient was seen by neurology. WBC 14.9 hemoglobin 9.3 and platelets 272 Sodium 144 potassium 5.1 chloride 111 bicarb is 31.4 BUN 28.7 creatinine 1.7 Current medications reviewed. 05/05/2021 She is seen in follow-up in follow up this morning and continues to be confused and slightly improved from yesterday. Patient continues to be restless and answering questions but continues with confusion. Patient is reporting abdominal pain and per nursing staff, large dark stools noted and there was a drop in hemoglobin. General surgery consulted for possible endoscopic intervention. Psychiatry and neurology following as well. Patient to undergo EEG today. Sodium continues to be elevated and changing IV fluids to D5/.45 Ns and will repeat am labs. BP is elevated and will resume losartan as kidney functions improved. Labs: wbc 11.6, hgb is 9.9, platelets are 309, sodium is 142, potassium is 3.7, bun is 35, creatinine is 1.03, calcium is 8.4 05/06/2021 Patient is currently resting in bed. Mentation is much improved. Patient is awake alert and oriented x3. No complaints of chest pain or shortness of. Complaints of back pain and requesting narcotic pain medications. Otherwise patient has been afebrile. No headache or dizziness or lightheadedness. No complaints of nausea or vomiting or abdominal pain. Patient was seen by psychiatry. Patient was started on gabapentin. No other acute ov ernight issues. PT OT will be consulted. Laboratory data showed WBC came down to 8.67 hemoglobin 9.0 and platelets 249 Patient is scheduled for colonoscopy on Saturday. Current medications reviewed. Objective - Vital Signs Vital signs: Vital Signs Temp 97.5 F L 05/06/21 12:09 Pulse 65 05/06/21 12:09 Resp 16 05/06/21 12:09 BP 114/57 05/06/21 12:09 Pulse Ox 92 L 05/06/21 12:09 Intake & Output 05/06/21 05/06/21 05/07/21 06:59 18:59 06:59 Intake Total 840 280 Balance 840 280 Intake: Oral 840 280 Other: Voiding Method Diaper Diaper Incontinent Incontinent # Voids 3 1 # Bowel Movements 1 0 - Exam PHYSICAL EXAMINATION: Patient is lying in the bed comfortably, no acute distress, awake alert and oriented but confused at times... HEENT: Normocephalic. Neck is supple. Pupils reactive. Nostrils clear. Oral cavity is moist. Neck reveals no JVD, carotid bruits, or thyromegaly. CHEST EXAMINATION: Trachea is central. Symmetrical expansion. Bibasilar diminished sounds. Lung herrera clear to auscultation and percussion. CARDIAC: Normal S1, S2 with no gallops. No murmurs ABDOMEN: Soft. Bowel sounds present. No organomegaly. No abdominal bruits. Extremities: reveal no edema. No clubbing or cyanosis Neurologically awake, alert, oriented x2-3 with well-coordinated movements while in bed. No focal deficits noted Skin: No rash or skin lesions. Psychiatric: Coperative. Nonsuicidal Musculoskeletal: No joint swelling or deformity. Normal range of motion. - Labs CBC & Chem 7: 05/08/21 06:52 05/08/21 06:52 Labs: Abnormal Lab Results - Last 24 Hours (Table) 05/06/21 05/06/21 Range/Units 07:46 07:46 RBC 3.01 L (4.10-5.20) X 10*6/uL Hgb 9.0 L (12.0-15.0) g/dL Hct 29.4 L (37.2-46.3) % MCV 97.7 H (80.0-97.0) fL MCHC 30.6 L (32.0-37.0) g/dL RDW 18.5 H (11.5-14.5) % Potassium 3.4 L (3.5-5.5) mmol/L Carbon Dioxide 17.3 L (20.0-27.5) mmol/L BUN/Creatinine Ratio 39.62 H (12.00-20.00) Ratio Calcium 8.0 L (8.7-10.3) mg/dL Assessment and Plan Assessment: Altered mental status. Possible metabolic, toxic encephalopathy. CT head showed no acute CVA. UDS positive for opiates and oxycodone. Mental status improved now. Delirium and involuntary upper extremity movements. Resolved. Dark-colored stools possible GI bleed. Acute kidney injury Hypokalemia Chronic back pain and opiate use Paroxysmal atrial fibrillation on anticoagulation with Eliquis Coronary artery disease history of stent placement GERD History of GI bleed and peptic ulcer disease Anxiety/depression panic disorder Previous history of smoking DVT prophylaxis patient is already on full anticoagulation with Eliquis Plan: Patient will be continued on IV hydration and replace electrolytes. IV fluids changed to D5 half-normal saline. Encourage oral intake. EEG was ordered due to encephalopathy and rule out seizures.. Neurology is on board. Continue with neurochecks and monitor for opiate withdrawal symptoms. CT head showed no acute process. Follow-up TSH B12 and folate levels wnl. Was seen by psychiatric and neurology. Scheduled for colonoscopy on Saturday. Continue with supportive care and follow-up closely. Prognosis guarded. Time with Patient: Greater than 30
--- NOTE | 2021-05-08 10:30 | P.PN ---
Subjective Progress Note Date: 05/07/21 Patient is a 75-year-old female with a known history of paroxysmal atrial fibrillation on anticoagulation with Eliquis coronary artery disease with history of stent placement, chronic back pain and opiate use, GERD, history of GI bleed, hearing disorder/deafness, peptic ulcer disease, anxiety/depression a nd panic disorder and previous history of smoking was brought to the hospital by EMS due to altered mental status. Patient last well-known was yesterday and today morning she was found on the bed with altered mentation by her son around 8:30 AM. Patient wakes up by her name and going back to sleep. Could not provide any history at this time. Patient did not have any fever or chills recently. No recent nausea vomiting or diarrhea. Denies any complaints of pain does not appears to be in pain.. Patient reportedly has recently discontinued her chronic pain medication. Patient was found to be in feces upon admission. CT head showed is related atrophic and chronic small vessel ischemic changes without acute intracranial process seen at this time. Chest x-ray showed chronic changes without evidence for acute pulmonary disease. EKG showed sinus rhythm with first-degree AV block Urinalysis is negative for infection Laboratory data showed WBC 11.5 hemoglobin 12.0 MCV 100.3 platelets 330 Sodium 137 potassium 3.2 chloride 106 bicarb is 17 BUN 20 and creatinine 1.17 blood sugar is 104 Calcium 8.3 bilirubin level 1.3 AST 36 ALT 15 alk phos 122 albumin 2.9 and troponin less than 0.012 UDS is positive for opiates and oxycodone. Coronavirus PCR not detected. 05/04/2021 Patient is still confused a but more awake and alert today. Patient is moaning and involuntarily moving her hands. Could not provide any history. Able to respond with verbal stimuli but does not follow simple commands.. Patient has been afebrile. Able to tolerate pured diet and able to take her medications today. Currently requiring 3 L oxygen via nasal cannula and is IV hydration with normal saline at 75 cc/h. Patient was seen by neurology. WBC 14.9 hemoglobin 9.3 and platelets 272 Sodium 144 potassium 5.1 chloride 111 bicarb is 31.4 BUN 28.7 creatinine 1.7 Current medications reviewed. 05/05/2021 She is seen in follow-up in follow up this morning and continues to be confused and slightly improved from yesterday. Patient continues to be restless and answering questions but continues with confusion. Patient is reporting abdominal pain and per nursing staff, large dark stools noted and there was a drop in hemoglobin. General surgery consulted for possible endoscopic intervention. Psychiatry and neurology following as well. Patient to undergo EEG today. Sodium continues to be elevated and changing IV fluids to D5/.45 Ns and will repeat am labs. BP is elevated and will resume losartan as kidney functions improved. Labs: wbc 11.6, hgb is 9.9, platelets are 309, sodium is 142, potassium is 3.7, bun is 35, creatinine is 1.03, calcium is 8.4 05/06/2021 Patient is currently resting in bed. Mentation is much improved. Patient is awake alert and oriented x3. No complaints of chest pain or shortness of. Complaints of back pain and requesting narcotic pain medications. Otherwise patient has been afebrile. No headache or dizziness or lightheadedness. No complaints of nausea or vomiting or abdominal pain. Patient was seen by psychiatry. Patient was started on gabapentin. No other acute ov ernight issues. PT OT will be consulted. Laboratory data showed WBC came down to 8.67 hemoglobin 9.0 and platelets 249 Patient is scheduled for colonoscopy on Saturday. 05/07/2021 Patient is lying in the bed awake alert oriented x3. Complains of lower back pain and is being continued on Tylenol for pain management. Patient is also on gabapentin. Patient has been afebrile. Mentation is much improved now. No nausea vomiting or abdominal pain or diarrhea. Denied any dark-colored stools today. Patient is taking GoLYTELY for scheduled colonoscopy tomorrow Laboratory data showed WBC 7.1 hemoglobin 10.3 and platelets 296 Sodium 134 potassium 4.4 chloride 113 bicarb is 19 BUN 33 and creatinine 0.83 Neurology and general surgery is on board. Current medications reviewed. Objective - Vital Signs Vital signs: Vital Signs Temp 97.7 F 05/07/21 11:03 Pulse 72 05/07/21 11:03 Resp 18 05/07/21 11:03 BP 136/57 05/07/21 11:03 Pulse Ox 100 05/07/21 11:03 Intake & Output 05/06/21 05/07/21 05/07/21 18:59 06:59 18:59 Intake Total 870 480 Balance 870 480 Intake: Intake, IV Titration 0 Amount Dextrose 5%-0.45% NaCl 1, 0 000 ml @ 75 mls/hr IV . [id number] [facility] Rx#:[id number] Oral 870 480 Other: Voiding Method Diaper Toilet Toilet Incontinent Diaper Incontinent # Voids 1 2 1 # Bowel Movements 0 1 1 - Exam PHYSICAL EXAMINATION: Patient is lying in the bed comfortably, no acute distress, awake alert and oriented but confused at times... HEENT: Normocephalic. Neck is supple. Pupils reactive. Nostrils clear. Oral cavity is moist. Neck reveals no JVD, carotid bruits, or thyromegaly. CHEST EXAMINATION: Trachea is central. Symmetrical expansion. Bibasilar diminished sounds. Lung herrera clear to auscultation and percussion. CARDIAC: Normal S1, S2 with no gallops. No murmurs ABDOMEN: Soft. Bowel sounds present. No organomegaly. No abdominal bruits. Extremities: reveal no edema. No clubbing or cyanosis Neurologically awake, alert, oriented x2-3 with well-coordinated movements while in bed. No focal deficits noted Skin: No rash or skin lesions. Psychiatric: Coperative. Nonsuicidal Musculoskeletal: No joint swelling or deformity. Normal range of motion. - Labs CBC & Chem 7: 05/08/21 06:52 05/08/21 06:52 Labs: Abnormal Lab Results - Last 24 Hours (Table) 05/07/21 05/07/21 Range/Units 07:01 07:01 RBC 3.35 L (3.80-5.40) m/uL Hgb 10.3 L (11.4-16.0) gm/dL Hct 32.9 L (34.0-46.0) % RDW 17.9 H (11.5-15.5) % Sodium 134 L (137-145) mmol/L Chloride 113 H (98-107) mmol/L Carbon Dioxide 19 L (22-30) mmol/L BUN 33 H (7-17) mg/dL Calcium 8.2 L (8.4-10.2) mg/dL Assessment and Plan Assessment: Altered mental status. Possible metabolic, toxic encephalopathy. CT head showed no acute CVA. UDS positive for opiates and oxycodone. Mental status improved now. Delirium and involuntary upper extremity movements. Resolved. Dark-colored stools possible GI bleed. Acute kidney injury Hypokalemia Chronic back pain and opiate use Paroxysmal atrial fibrillation on anticoagulation with Eliquis Coronary artery disease history of stent placement GERD History of GI bleed and peptic ulcer disease Anxiety/depression panic disorder Previous history of smoking DVT prophylaxis patient is already on full anticoagulation with Eliquis Plan: Patient will be continued on IV hydration and replace electrolytes. IV fluids c hanged to D5 half-normal saline. Encourage oral intake. EEG was ordered due to encephalopathy and rule out seizures.. Neurology is on board. Continue with neurochecks and monitor for opiate withdrawal symptoms. CT head showed no acute process. Follow-up TSH B12 and folate levels wnl. Was seen by psychiatric and neurology. Scheduled for colonoscopy on Saturday. Continue with supportive care and follow-up closely. Prognosis guarded. Time with Patient: Greater than 30
[2021-05-08] MEDS: PANTOPRAZOLE 40 MG/10 ML VIAL IVP SCH ×2 (12:13→21:38)
--- NOTE | 2021-05-08 12:46 | P.PN ---
Subjective Progress Note Date: 05/08/21 I am seeing this patient for the first time during this hospital admission for neurological management. Please refer to Dr. Allen's note for further details. Patient is getting 2.5 hour EEG today as requested by Dr. Allen. Per the patient's nurse her mentation has been improving. Patient feels she is doing better and denies of any new neurological problems. Objective - Vital Signs Vital signs: Vital Signs Temp 97.6 F 05/08/21 12:15 Pulse 83 05/08/21 12:15 Resp 18 05/08/21 12:15 BP 164/73 05/08/21 12:15 Pulse Ox 98 05/08/21 12:15 Intake & Output 05/07/21 05/08/21 05/08/21 18:59 06:59 18:59 Intake Total 480 1080 Balance 480 1080 Intake: Oral 480 1080 Other: Voiding Method Toilet Toilet Diaper # Voids 1 4 # Bowel Movements 1 4 - Exam GENERAL: The patient is lying in bed and is not in acute distress. NEUROLOGICAL: Higher mental function: The patient is awake, alert, oriented to self, place. She correctly stated the month but year correctly got it right with options. She is able to name objects correctly (watch and glasses). Patient is following commands. No aphasia and no neglect. Cranial nerves: The pupils are round, equal and reactive to light and accommodation. Visual herrera are full to confrontation throughout. Extraocular movement is intact no nystagmus is noted. The facial strength is normal t hroughout.Tongue is midline and moved [id number] without any difficulty. No dysarthria is noted. Shoulder shrug is normal bilaterally. Motor: The strength is moving bilateral upper extremities above gravity without focality. . Normal tone and bulk. Cerebellum: Normal finger to nose bilaterally. Sensation: Sensation is normal to touch throughout. WORK-UP: Urine drug screen is positive for opiates and oxycodone. Serum alcohol was less than 10. Otherwise the rest of urine drug screen is the negative. Bautista virus PCR was not detected. TSH is 0.739. Red blood cell folate is 959 [address] is [address] head is reported as age-related atrophic and chronic small vessel ischemic changes without acute intracranial process seen at this time. EEG performed on 05/06/2020 was abnormal EEG due to presence of significantly disorganized background with mixed frequencies of theta and delta slow wave activity, with some triphasic-like activity seen in bihemispheric region. This is suggestive of generalized cerebral dysfunction as can be seen with toxic metabolic encephalopathy or due to diffuse structural brain abnormality. Occasional sharp-appearing waves particularly in the left hemispheric region were seen sporadically. Some of these waves were coinciding with patient's eye blinking. - Labs CBC & Chem 7: 05/08/21 06:52 05/08/21 06:52 Labs: Abnormal Lab Results - Last 24 Hours (Table) 05/08/21 05/08/21 Range/Units 06:52 06:52 RBC 2.89 L (3.80-5.40) m/uL Hgb 9.1 L (11.4-16.0) gm/dL Hct 28.9 L (34.0-46.0) % RDW 17.5 H (11.5-15.5) % Sodium 133 L (137-145) mmol/L Chloride 111 H (98-107) mmol/L Carbon Dioxide 21 L (22-30) mmol/L BUN 27 H (7-17) mg/dL Calcium 7.9 L (8.4-10.2) mg/dL C-Reactive Protein 6.4 H (<1.0) mg/dL Assessment and Plan Assessment: * Acute onset of altered mental status on waking, most likely due to drug withdrawal. Patient has long-standing history of prescription drug abuse. Please refer to the history provided by patient's daughter as above. Patient 's mentation has much improved. * Atrial fibrillation, patient was on Eliquis, currently held because of GI bleed. 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 Plan: * EEG performed on 05/06/2020 is abnormal EEG and is reported as due to presence of significantly disorganized background with mixed frequencies of theta and delta slow wave activity, with some triphasic-like activity seen in bihemispheric region. This is suggestive of generalized cerebral dysfunction as can be seen with toxic metabolic encephalopathy or due to diffuse structural brain abnormality. Occasional sharp-appearing waves particularly in the left hemispheric region were seen sporadically. Some of these waves were coinciding with patient's eye blinking. As the EEG was technically poor quality, Dr. Allen has requested a prolonged, 2.5 hour EEG was recommended for further evaluation of any underlying epileptiform activity. Clinical correlation recommended. * Per patient's daughter, she never had any history of seizures ever in the past. We will hold off on antiepileptic medication, as her current event is likely from opiate withdrawal/substance abuse. Today she had 2.5 hour EEG and pending report. Patient's mentation has much improved. * Psychiatric consultation input appreciated. * Patient undergoing EGD and colonoscopy. * Will defer the rest of management to the primary team. If the2.5 hour EEG is negative for epileptiform discharges or seizures then she is clear from neurological perspective. The plan is discussed with the patient's primary team and her nurse. UPDATE: 2.5 Hour EEG: Is reported as normal. No further work-up is needed and patient is clear from neurological perspective. Sergey Oslen M.D. Neuro-Hospitalist Time with Patient: Less than 30
[2021-05-08] MEDS: GABAPENTIN 100 MG CAP PO SCH ×3 (12:48→21:37)
[2021-05-08] MEDS ORDERED: IV FLUID CONTINUATION 1,000 ML IV ONE ×2 (12:53)
[2021-05-08] MEDS ORDERED: PROPOFOL 10 MG/ML 20 ML VIAL IV ONE (12:58)
[2021-05-08] MEDS ORDERED: LIDOCAINE 1% INJ 10MG/ML (20 ML MDV) ONE (12:58)
--- NOTE | 2021-05-08 13:07 | P.OP ---
Date of Procedure: 05/08/21 Preoperative Diagnosis: GI bleed Postoperative Diagnosis: Ventricular tachycardia Procedure(s) Performed: EGD Anesthesia: MAC Surgeon: Phil Burt Pathology: none sent Condition: stable Disposition: PACU Description of Procedure: Patient's placed on the endoscopy table in the lateral position. She received IV sedation. The gastroscope placed oropharynx passed in the esophagus. The stomach was insufflated. At this point the patient went of ventricular tachycardia. Her pulse rate was in the 190s to 200. At this point the scope was withdrawn. The colonoscopy was canceled the patient's ventricular tachycardia. She'll be evaluated by cardiology.
[2021-05-08] MEDS: METOPROLOL TARTRATE 50 MG TAB PO SCH ×3 (13:21→21:38)
--- NOTE | 2021-05-08 14:25 | P.CRDCN ---
History of Present Illness History of present illness: HISTORY OF PRESENT ILLNESS: This is a 75-year-old female with a past medical history significant for nonobstructive CAD, paroxysmal atrial fibrillation on Eliquis, hypertension, hyperlipidemia, nonischemic cardiomyopathy, and diverticulitis with history of colectomy and colostomy placement and subsequent reversal of colostomy in October 2020. Patient has not been following in the office with a chief diversity officer. She was last seen in the office in 2012. We have been asked to see the patient in consultation for ventricular tachycardia. Patient presented to the hospital on 05/03/21 with alerted mental status and dark colored stools. She states she did have a syncopal episode. Her UA was positive for opiates and oxycodone. Patient was hydrated and had improvement in mental status. On 05/08/21, patient was scheduled for EGD, patient was given IV sedation, EGD was started and patient had a brief episode of non-sustained ventricular tachycardia on the monitor, no telemetry strips were available to review, EGD was cancelled. Patient has not received her beta jarod since 7:45am 05/07/21. Telemetry reviewed in recovery, patient in atrial fibrillation with controlled ventricular rates. Patient denies any chest pain, shortness of breath, palpitations, lightheadedness, dizziness. Patient was admitted on 03/17/2021 for chest pain and worsening cardiomyopathy, She underwent a heart catheterization and that revealed mild nonobstructive coronary artery disease. Patient was admitted again on 04/16/21, cardiology evaluated the patient that time for atrial fibrillation with RVR. DIAGNOSTICS -EKG reveals atrial fibrillation with controlled ventricular rate, no significant ST-T abnormalities -Laboratory data: WBC 7.1, hemoglobin 10.3, platelets 296, sodium 134, potassium 4.4, BUN 33, serum creatinine 0.8, magnesium 1.8 -Current home cardiac medications include metoprolol tartrate 50 mg twice a day, losartan 50 mg daily, and Eliquis 5mg twice a day -03/15/21 Echo shows worsened EF 35-40% however mainly apical hypokineis with sparing of the base concerning for Takotsubo's cardiomyopathy. Cardiac catheterization history: -03/17/21- Mild non-obstructive CAD, 50% ostial of the first diag, mid and distal LAD mild disease only. -April 2020 revealing mild coronary artery disease. 30% mid LAD stenosis. Left circumflex with mild luminary irregularities. Mid RCA 30-40% stenosis. Ejection fraction at that time 45% with mild apical hypokinesis, questionable recovering Takotsubo cardiomyopathy. REVIEW OF SYSTEMS: At the time of my exam: CONSTITUTIONAL: Denies fever or chills. HEENT: Denies blurred vision, vision changes, or eye pain. Denies hemoptysis CARDIOVASCULAR: Denies chest pain. Denies orthopnea. Denies PND. Denies palpitations RESPIRATORY: Denies shortness of breath. GASTROINTESTINAL: Denies abdominal pain. Denies nausea or vomiting. HEMATOLOGIC: Denies bleeding disorders. GENITOURINARY: Denies any blood in urine. SKIN: Denies pruitis. Denies rash. PHYSICAL EXAM: VITAL SIGNS: Reviewed. GENERAL: Well-developed in no acute distress. HEENT: Head is normocephalic. Pupils are equal, round. Sclerae anicteric. Mucous membranes of the mouth are moist. Neck supple. No JVD or thyromegaly LUNGS: Respirations even and unlabored. Lungs essentially clear to auscultation bilaterally. HEART: Irregular rate and rhythm. S1 and S2 heard. Systolic murmur noted. ABDOMEN: Soft. Nondistended. Nontender. EXTREMITIES: Normal range of motion. No clubbing or cyanosis. Peripheral pulses intact. No lower extremity edema NEUROLOGIC: Awake and alert. Oriented x 3. ASSESSMENT: Episode of non-sustained ventricular tachycardia, asymptomatic during EGD on 05/08/21 Altered mental status, improved Dark colored stools, rule out GI bleed Acute kidney injury Hypokalemia, improving Paroxysmal atrial fibrillation, on Eliquis outpatient Nonobstructive coronary artery disease Non-ischemic cardiomyopathy, ejection fraction 35-40% Hypertension Hyperlipidemia PLAN: -Recommend place patient on cardiac telemetry -Continue metoprolol tartrate 50mg BID -Monitor renal function and electrolytes -Obtain limited echocardiogram -Eliquis on hold due to possible GI bleed -Further recommendations based on evaluation by Dr. Beasley and clinical course Nurse practitioner note has been reviewed by physician. Signing provider agrees with the documented findings, assessment, and plan of care. Past Medical History Past Medical History: Atrial Fibrillation, Coronary Artery Disease (CAD), Cancer, Eye Disorder, GERD/Reflux, GI Bleed, Hearing Disorder / Deafness, Hypertension, Musculoskeletal Disorder, Osteoarthritis (OA), Thyroid Disorder Additional Past Medical History / Comment(s): Peptic ulcer, chronic back pain, laryngeal cancer/tx-approx 20 yrs ago, head injury in 2012, cataract removal left eye. Pt states she has a hole in her left eardrum. 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 SHOULDER Past Surgical History: Bariatric Surgery, Bowel Resection, Cholecystectomy, Heart Catheterization, Heart Catheterization With Stent, Hysterectomy, Joint Replacement, Orthopedic Surgery Additional Past Surgical History / Comment(s): 1 stent, Bilateral knee replacement, left shoulder rotator cuff surgery, gastric bypass, D&C w/ corrective surgery, EGD/colonoscopy, laryngeal tumor removed 30 radiation treatments about 20 years ago, Ganglion Cysts both wrists.PAIN CLINIC INJECTIONS, colostomy 06/2020 w/ reversal in August Past Anesthesia/Blood Transfusion Reactions: No Reported Reaction Date of Last Stent Placement:: 2003 Past Psychological History: Anxiety, Depression, Panic Disorder Additional Psychological History / Comment(s): pt lives alone in an apartment. Smoking Status: Former smoker Past Alcohol Use History: None Reported Additional Past Alcohol Use History / Comment(s): Pt started smoking in 1959 and quit in 1982, 1ppd. Past Drug Use History: None Reported - Past Family History Mother Family Medical History: Cancer, Congestive Heart Failure (CHF), Diabetes Mellitus, Hypertension Additional Family Medical History / Comment(s): Mother passed at 93. Father Family Medical History: Myocardial Infarction (AR) Additional Family Medical History / Comment(s): Father of a AR at the age of 39 yrs. Sister(s) Family Medical History: Cancer Brother(s) Family Medical History: Cancer, Myocardial Infarction (AR) Medications and Allergies Home Medications Medication Instructions Recorded Confirmed Type Levothyroxine Sodium [Synthroid] 200 mcg PO DAILY 01/12/19 05/03/21 History LORazepam [Ativan] 0.5 mg PO HS PRN 11/25/20 05/03/21 History Ondansetron Odt [Zofran ODT] 4 mg PO Q8HR PRN #10 tab 12/04/20 05/03/21 Rx Apixaban [Eliquis] 5 mg PO BID #60 tab 01/12/21 05/03/21 Rx Calcium Carbonate [Tums] 500 mg PO QID PRN tab 01/12/21 05/03/21 Rx Megestrol Acetate 40 mg PO BID 03/01/21 05/03/21 History hydrOXYzine HCL [Atarax] 10 mg PO HS 03/01/21 05/03/21 History HYDROcodone/APAP 10-325MG [[place] 1 tab PO BID #0 03/06/21 05/03/21 Rx 10-325] Cholecalciferol [Vitamin D3 (25 25 mcg PO DAILY #30 tablet 03/21/21 05/03/21 Rx Mcg = 1000 Iu)] Cyanocobalamin [Vitamin B-12] 1,000 mcg PO DAILY #30 tab 03/21/21 05/03/21 Rx Dicyclomine [Bentyl] 20 mg PO QID 15 Days #60 tab 03/21/21 05/03/21 Rx Pantoprazole [Protonix] 40 mg PO BID #30 tab 03/21/21 05/03/21 Rx Nitroglycerin Sl Tabs [Nitrostat] 0.4 mg SL Q5M PRN 04/15/21 05/03/21 History Acetaminophen Tab [Tylenol] 650 mg PO Q6HR PRN tab 04/18/21 05/03/21 Rx Losartan [Cozaar] 50 mg PO DAILY@1800 30 Days #60 tab 04/18/21 05/03/21 Rx Metoprolol Tartrate [Lopressor] 50 mg PO BID 30 Days #60 tab 04/18/21 05/03/21 Rx Allergies Allergy/AdvReac Type Severity Reaction Status Date / Time latex Allergy Unknown Verified 05/03/21 10:56 vancomycin Allergy Rash/Hives Verified 05/03/21 10:56 Physical Exam Vitals: Vital Signs Temp Pulse Pulse Resp BP BP Pulse Ox 05/08/21 13:11 97.4 F L 83 18 131/64 98 05/08/21 12:15 97.6 F 83 18 164/73 98 05/08/21 04:18 98.1 F 91 16 147/63 99 05/07/21 21:00 97.6 F 79 18 99/61 98 Intake and Output 05/07/21 05/08/21 05/08/21 22:59 06:59 14:59 Intake Total 1080 50 Balance 1080 50 Intake: IV 50 Oral 1080 Other: Voiding Method Toilet Diaper # Voids 4 # Bowel Movements 4 Results 05/08/21 06:52 05/08/21 06:52 CBC 05/08/21 Range/Units 06:52 WBC 5.2 (3.8-10.6) k/uL RBC 2.89 L (3.80-5.40) m/uL Hgb 9.1 L (11.4-16.0) gm/dL Hct 28.9 L (34.0-46.0) % Plt Count 296 (150-450) k/uL Comprehensive Metabolic Panel 05/08/21 Range/Units 06:52 Sodium 133 L (137-145) mmol/L Potassium 4.2 (3.5-5.1) mmol/L Chloride 111 H (98-107) mmol/L Carbon Dioxide 21 L (22-30) mmol/L BUN 27 H (7-17) mg/dL Creatinine 0.67 (0.52-1.04) mg/dL Glucose 91 (74-99) mg/dL Calcium 7.9 L (8.4-10.2) mg/dL Current Medications Generic Name Dose Route Start Last Admin Trade Name Freq PRN Reason Stop Dose Admin Acetaminophen 650 mg 05/03/21 22:21 05/07/21 07:44 Acetaminophen Tab 325 Mg Tab PO 650 mg Q6HR PRN Administration Fever and/ or Pain Gabapentin 300 mg 05/07/21 16:00 05/08/21 12:48 Gabapentin 100 Mg Cap PO Not Given TID ALFREDO Dextrose/Sodium Chloride 1,000 mls @ 75 mls/hr 05/04/21 22:15 05/08/21 05:44 Dextrose 5%-1/2ns Iv Soln IV 75 mls/hr .[id number] ALFREDO Administration Levothyroxine Sodium 200 mcg 05/04/21 06:30 05/08/21 05:44 Levothyroxine 100 Mcg Tab PO 200 mcg DAILY@0630 ALFREDO Administration Losartan Potassium 50 mg 05/06/21 18:00 05/07/21 17:37 Losartan 50 Mg Tab PO 50 mg DAILY@1800 ALFREDO Administration Metoprolol Tartrate 50 mg 05/03/21 23:52 05/08/21 13:21 Metoprolol Tartrate 50 Mg Tab PO Not Given BID ALFREDO Miscellaneous Information 1 each 05/06/21 13:20 Potassium Replacement Protocol 1 Each Misc MISCELLANE DAILY PRN Per Protocol Protocol Naloxone HCl 0.2 mg 05/03/21 12:20 Naloxone 0.4 Mg/Ml 1 Ml Vial IV Q2M PRN Opioid Reversal Pantoprazole Sodium 40 mg 05/05/21 21:00 05/08/21 12:13 Pantoprazole 40 Mg/10 Ml Vial IVP 40 mg BID ALFREDO Administration Intake and Output 05/07/21 05/08/21 05/08/21 22:59 06:59 14:59 Intake Total 1080 50 Balance 1080 50 Intake: IV 50 Oral 1080 Other: Voiding Method Toilet Diaper # Voids 4 # Bowel Movements 4 05/08/21 06:52 05/08/21 06:52
--- NOTE | 2021-05-08 16:22 | EEG ---
ELECTROENCEPHALOGRAM REPORT PROCEDURE DATE: 05/08/2021. ELECTROENCEPHALOGRAM (EEG) REPORT: This is a report from a prolonged 2.5 hour video EEG performed using the 10/20 electrode placement system. HISTORY: Altered mental status. OTHER MEDICAL HISTORY: Includes coronary artery disease, gastroesophageal reflux, atrial fibrillation, hypertension. CURRENT MEDICATIONS: Tylenol, Neurontin, Synthroid, Cozaar, Lopressor, Protonix, potassium. FINDINGS: Recording start time: 05/08/2021 at 8:54 am. Recording end time: 05/08/2021 at 11:31 am. EVENTS: During this 2.5 hour video EEG, no clinical or electrographic seizures were recorded. BACKGROUND: The background activity consisted of 8-9 hertz rhythmic waveforms symmetric through both posterior quadrants. ACTIVATION: Hyperventilation: Not performed. Photic stimulation: Symmetric driving seen. Sleep: Stages I and II sleep noted. ABNORMALITIES: None. IMPRESSION: Normal prolonged 2.5 hour video EEG. No clinical or electrographic seizures were recorded. No epileptiform activity was present. MMODL / IJN: [id number] /
--- NOTE | 2021-05-08 16:47 | P.PN ---
Subjective Progress Note Date: 05/08/21 Psychiatric progress note She was seen briefly to follow up on my earlier psychiatric consultation I reviewed her progress with RN in charge who reported she has improved in terms of her sensorium. She was no longer confused and tolerated her gradual increase in her activity on the unit. She was monitored for her vitals but has been off oxygen nasal prongs. Her upper GI investigation was terminated a few hours due to her sudden onset of ventral tachycardia. I interviewed her in the bedroom. She was not in acute physical distress hr 75 regular on cardiac monitoring with in fluid. She was not fidgetting and was resting quietly in her bedroom. As compared to [facility] saturdayMay 05 , she no longer exhibited any rthymic to and fro movements of her legs with intermittent jerky movement of her lower and to a lesser extent , her upper extremities. She had sporadic shoulder (pectoral region) shakiness. Her abnormal movement profile appeared to be involuntary. 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 She was not on any maintenace with atypical or typical antipsychotics or mood stabilizers which could otherwise explain the onset of her drug induced hyperkinetic movement syndrome She appeared to be responding to low dosage of GABPenin neurontin 100 mg po tid with no drowsiness , no ataxia , no gait. She was comfortable and understood [place] behind her Rx. My recommendation 1. Engage with her family to seek outpatient mental health referral and treatment through [facility] behavioral health program. 2. psychoeducational module re; Pain and Opioid use 3. Monitor for recurrence of her pain and substitute for other Rx such as Mirtazepine, or Effexor or GABApentin 4. effexor will be my choice at the low dosage , no BP side effect and has additional effects on panic anxiety symptoms and mood symptoms and can reduce her craving 5. Complete all her medical procedures before further psychotropic Rxs intervention Objective - Vital Signs Vital signs: Vital Signs Temp 97.4 F L 05/08/21 13:11 Pulse 88 05/08/21 14:50 Resp 20 05/08/21 14:50 BP 163/85 05/08/21 14:50 Pulse Ox 100 01/31/22 14:50 Intake & Output 05/07/21 05/08/21 05/08/21 18:59 06:59 18:59 Intake Total 480 1080 300 Balance 480 1080 300 Weight 72.575 kg Intake: IV 300 Oral 480 1080 Other: Voiding Method Toilet Toilet Diaper # Voids 1 4 # Bowel Movements 1 4 - Labs CBC & Chem 7: 05/08/21 06:52 05/08/21 06:52 Labs: Abnormal Lab Results - Last 24 Hours (Table) 05/08/21 05/08/21 Range/Units 06:52 06:52 RBC 2.89 L (3.80-5.40) m/uL Hgb 9.1 L (11.4-16.0) gm/dL Hct 28.9 L (34.0-46.0) % RDW 17.5 H (11.5-15.5) % Sodium 133 L (137-145) mmol/L Chloride 111 H (98-107) mmol/L Carbon Dioxide 21 L (22-30) mmol/L BUN 27 H (7-17) mg/dL Calcium 7.9 L (8.4-10.2) mg/dL C-Reactive Protein 6.4 H (<1.0) mg/dL
[2021-05-08] MEDS: LOSARTAN 50 MG TAB PO SCH (17:51)
[2021-05-08 19:00] LABS: Magnesium 1.7 mg/dL (1.6-2.3); Potassium 3.5 mmol/L (3.5-5.1)
[2021-05-09] MEDS: POTASSIUM CHLORIDE ER 20 MEQ TAB.ER PO SCH ×2 (03:37→04:38)
[2021-05-09] MEDS: DEXTROSE 5%-0.45% NACL 1,000 ML IV SCH (04:39)
[2021-05-09] MEDS: LEVOTHYROXINE 100 MCG TAB PO SCH (05:50)
[2021-05-09 06:46] LABS: African American GFR (CKD) >90 (>60 ml/min/1.73 sqM); Anion Gap 0 mmol/L; Blood Urea Nitrogen 18 mg/dL (7-17); Calcium 7.8 mg/dL (8.4-10.2); Carbon Dioxide 20 mmol/L (22-30); Chloride 111 mmol/L (98-107); Glucose 91 mg/dL (74-99); Magnesium 1.7 mg/dL (1.6-2.3); Non-African American GFR(CKD) >90 (>60 ml/min/1.73 sqM); Potassium 4.2 mmol/L (3.5-5.1); Sodium 131 mmol/L (137-145)
--- NOTE | 2021-05-09 09:31 | P.PN ---
Subjective Progress Note Date: 05/08/21 Patient is a 75-year-old female with a known history of paroxysmal atrial fibrillation on anticoagulation with Eliquis coronary artery disease with history of stent placement, chronic back pain and opiate use, GERD, history of GI bleed, hearing disorder/deafness, peptic ulcer disease, anxiety/depression and panic disorder and previous history of smoking was brought to the hospital by EMS due to altered mental status. Patient last well-known was yesterday and today morning she was found on the bed with altered mentation by her son around 8:30 AM. Patient wakes up by her name and going back to sleep. Could not provide any history at this time. Patient did not have any fever or chills recently. No recent nausea vomiting or diarrhea. Denies any complaints of pain does not appears to be in pain.. Patient reportedly has recently discontinued her chronic pain medication. Patient was found to be in feces upon admission. CT head showed is related atrophic and chronic small vessel ischemic changes without acute intracranial process seen at this time. Chest x-ray showed chronic changes without evidence for acute pulmonary disease. EKG showed sinus rhythm with first-degree AV block Urinalysis is negative for infection Laboratory data showed WBC 11.5 hemoglobin 12.0 MCV 100.3 platelets 330 Sodium 137 potassium 3.2 chloride 106 bicarb is 17 BUN 20 and creatinine 1.17 blood sugar is 104 Calcium 8.3 bilirubin level 1.3 AST 36 ALT 15 alk phos 122 albumin 2.9 and troponin less than 0.012 UDS is positive for opiates and oxycodone. Coronavirus PCR not detected. 05/04/2021 Patient is still confused a but more awake and alert today. Patient is moaning and involuntarily moving her hands. Could not provide any history. Able to respond with verbal stimuli but does not follow simple commands.. Patient has been afebrile. Able to tolerate pured diet and able to take her medications today. Currently requiring 3 L oxygen via nasal cannula and is IV hydration with normal saline at 75 cc/h. Patient was seen by neurology. WBC 14.9 hemoglobin 9.3 and platelets 272 Sodium 144 potassium 5.1 chloride 111 bicarb is 31.4 BUN 28.7 creatinine 1.7 Current medications reviewed. 05/05/2021 She is seen in follow-up in follow up this morning and continues to be confused and slightly improved from yesterday. Patient continues to be restless and answering questions but continues with confusion. Patient is reporting abdominal pain and per nursing staff, large dark stools noted and there was a drop in hemoglobin. General surgery consulted for possible endoscopic intervention. Psychiatry and neurology following as well. Patient to undergo EEG today. Sodium continues to be elevated and changing IV fluids to D5/.45 Ns and will repeat am labs. BP is elevated and will resume losartan as kidney functions improved. .. 05/06/2021 Patient is currently resting in bed. Mentation is much improved. Patient is awake alert and oriented x3. No complaints of chest pain or shortness of. Complaints of back pain and requesting narcotic pain medications. Otherwise patient has been afebrile. No headache or dizziness or lightheadedness. No complaints of nausea or vomiting or abdominal pain. Patient was seen by psychiatry. Patient was started on gabapentin. No other acute overnight issues. PT OT will be consulted. Laboratory data showed WBC came down to 8.67 hemoglobin 9.0 and platelets 249 Patient is scheduled for colonoscopy on Saturday. 05/07/2021 Patient is lying in the bed awake alert oriented x3. Complains of lower back pain and is being continued on Tylenol for pain management. Patient is also on gabapentin. Patient has been afebrile. Mentation is much improved now. No nausea vomiting or abdominal pain or diarrhea. Denied any dark-colored stools today. Patient is taking GoLYTELY for scheduled colonoscopy tomorrow Laboratory data showed WBC 7.1 hemoglobin 10.3 and platelets 296 Sodium 134 potassium 4.4 chloride 113 bicarb is 19 BUN 33 and creatinine 0.83 Neurology and general surgery is on board. 05/08/2021 Patient is seen and evaluated this morning lying in bed much more awake and alert 3 answering appropriately. No acute overnight issues noted. Per nursing staff patient is back to baseline and completely alert and oriented. Patient going down for prolonged EEG as neuro is following and patient is scheduled for EGD/colonoscopy with surgery today. Will await report. Hemoglobin is stable at 9.1. Patient is currently nothing by mouth for the procedure. Social work also following and patient is agreeable to rehab if needed and referrals have been placed. Will continue to follow with patient about discharge planning. PT/OT following. Labs: wbc 5.2, hemoglobin is 9.1, platelets are 296, sodium is 133, potassium 4.2, BUN 27, creatinine 0.67, calcium 7.9, CRP 6.4 Review of systems: unable to obtain and patient continues with confusion All medications have been reviewed Active Medications Acetaminophen (Acetaminophen Tab 325 Mg Tab) 650 mg PO Q6HR PRN PRN Reason: Fever and/ or Pain Last Admin: 05/07/21 07:44 Dose: 650 mg Documented by: Gabapentin (Gabapentin 100 Mg Cap) 300 mg PO TID [facility] Last Admin: 05/08/21 12:48 Dose: Not Given Documented by: Dextrose/Sodium Chloride (Dextrose 5%-1/2ns Iv Soln) 1,000 mls @ 75 mls/hr IV .[id number] [facility] Last Admin: 05/08/21 05:44 Dose: 75 mls/hr Documented by: Levothyroxine Sodium (Levothyroxine 100 Mcg Tab) 200 mcg PO DAILY@0630 [facility] Last Admin: 05/08/21 05:44 Dose: 200 mcg Documented by: Losartan Potassium (Losartan 50 Mg Tab) 50 mg PO DAILY@1800 [facility] Last Admin: 05/07/21 17:37 Dose: 50 mg Documented by: Metoprolol Tartrate (Metoprolol Tartrate 50 Mg Tab) 50 mg PO BID [facility] Last Admin: 05/08/21 13:21 Dose: Not Given Documented by: Miscellaneous Information (Potassium Replacement Protocol [facility]) 1 each MISCELLANE DAILY PRN; Protocol PRN Reason: Per Protocol Naloxone HCl (Naloxone 0.4 Mg/Ml 1 Ml Vial) 0.2 mg IV Q2M PRN PRN Reason: Opioid Reversal Pantoprazole Sodium (Pantoprazole 40 Mg/10 Ml Vial) 40 mg IVP BID [facility] Last Admin: 05/08/21 12:13 Dose: 40 mg Documented by: PHYSICAL EXAMINATION: Patient is lying in the bed awake alert and oriented 3. Not in any acute distress, well-developed, well-nourished.. HEENT: Normocephalic. Neck is supple. Pupils reactive. Nostrils clear. Oral cavity is moist. Neck reveals no JVD, carotid bruits, or thyromegaly. CHEST EXAMINATION: Trachea is central. Symmetrical expansion. Lung herrera clear to auscultation and percussion. CARDIAC: Normal S1, S2 with no gallops. No murmurs ABDOMEN: Soft. Bowel sounds normal. No organomegaly. No abdominal bruits. Nontender on palpation Extremities: reveal no edema. No clubbing or cyanosis Neurologically awake, alert, oriented x3. No focal neurological deficits noted. Diffuse weakness Skin: No rash or skin lesions. Psychiatric: Alert and oriented 3, non-suicidal, cooperative Musculoskeletal: No joint swelling or deformity. Assessment: Altered mental status. Possible metabolic, toxic encephalopathy. CT head showed no acute CVA. UDS positive for opiates and oxycodone. Mental status improved now Delirium and involuntary upper and lower extremity movements. Resolved Acute kidney injury, improving Hypokalemia, improved Hypernatremia, improved now hyponatremic most likely secondary to poor oral intake and just completed bowel prep possible acute GI bleed with dark stools and drop in hemoglobin Chronic back pain and opiate use Paroxysmal atrial fibrillation on anticoagulation with Eliquis, currently on hold Coronary artery disease history of stent placement GERD History of GI bleed and peptic ulcer disease Anxiety/depression panic disorder Previous history of smoking DVT prophylaxis patient is already on full anticoagulation with Eliquis which is being held for possible GI bleed Plan: Patient will be continued on IV hydration and replace electrolytes. IV fluids changed to D5 half-normal saline although patient is more hyponatremic and currently working on bowel prep for EGD colonoscopy today and will continue fluids most likely discontinue after diet is resumed. Encourage oral intake. Along the EEG is ordered as well and patient is on her way and will await report with neurology following. Continue with neurochecks and monitor for opiate withdrawal symptoms. We'll repeat labs and continue to monitor closely. Continue with PT/OT evaluation and possible ECF and social work is following. Will discuss further discharge planning once patient has been cleared by neurology and surgery. Continue with supportive care and follow-up closely. Prognosis guarded. Objective - Vital Signs Vital signs: Vital Signs Temp 98.1 F 05/08/21 04:18 Pulse 91 05/08/21 04:18 Resp 16 05/08/21 04:18 BP 147/63 05/08/21 04:18 Pulse Ox 99 05/08/21 04:18 Intake & Output 05/07/21 05/08/21 05/08/21 18:59 06:59 18:59 Intake Total 480 1080 Balance 480 1080 Intake: Oral 480 1080 Other: Voiding Method Toilet Toilet Diaper # Voids 1 4 # Bowel Movements 1 4 - Labs CBC & Chem 7: 05/08/21 06:52 05/09/21 06:01 Labs: Abnormal Lab Results - Last 24 Hours (Table) 05/08/21 05/08/21 Range/Units 06:52 06:52 RBC 2.89 L (3.80-5.40) m/uL Hgb 9.1 L (11.4-16.0) gm/dL Hct 28.9 L (34.0-46.0) % RDW 17.5 H (11.5-15.5) % Sodium 133 L (137-145) mmol/L Chloride 111 H (98-107) mmol/L Carbon Dioxide 21 L (22-30) mmol/L BUN 27 H (7-17) mg/dL Calcium 7.9 L (8.4-10.2) mg/dL C-Reactive Protein 6.4 H (<1.0) mg/dL
--- NOTE | 2021-05-09 10:30 | P.PN ---
Subjective This is a 75-year-old female with a past medical history significant for nonobstructive CAD, paroxysmal atrial fibrillation on Eliquis, hypertension, hyperlipidemia, nonischemic cardiomyopathy, and diverticulitis with history of colectomy and colostomy placement and subsequent reversal of colostomy in October 2020. 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 She was last seen in the office in 2012. We have been asked to see the patient in consultation for ventricular tachycardia. Patient presented to the hospital on 05/03/21 with alerted mental status and dark colored stools. She states she did have a syncopal episode. Her UA was positive for opiates and oxycodone. Patient was hydrated and had improvement in mental status. On 05/08/21, patient was scheduled for EGD, patient was given IV sedation, EGD was started and patient had a brief episode of non-sustained ventricular tachycardia on the monitor, no telemetry strips were available to review, EGD was cancelled. 05/09/21 Patient seen and examined at bedside, no acute distress. Telemetry reviewed, patient with 10 beat run NSVT this morning and 2 episodes 4-6 beat NSVT run overnight. Patient maintained sinus mechanism. Patient denies any chest pain, shortness of breath, palpitations, leg numbness, dizziness. Patient is currently maintained on losartan 50 mg daily, metoprolol tartrate 50 mg twice a day. PHYSICAL EXAM: VITAL SIGNS: Reviewed. GENERAL: Well-developed in no acute distress. HEENT: Neck supple. No JVD LUNGS: Respirations even and unlabored. Lungs essentially clear to auscultation bilaterally. HEART: Irregular rate and rhythm. S1 and S2 heard. Systolic murmur noted. ABDOMEN: Soft. Nondistended. Nontender. EXTREMITIES: Normal range of motion. No clubbing or cyanosis. Peripheral pulses intact. No lower extremity edema NEUROLOGIC: Awake and alert. Oriented x 3. ASSESSMENT: Non-sustained ventricular tachycardia, asymptomatic Altered mental status, improved Dark colored stools, rule out GI bleed Acute kidney injury Hypokalemia, improving Paroxysmal atrial fibrillation, on Eliquis outpatient Nonobstructive coronary artery disease Non-ischemic cardiomyopathy, ejection fraction 35-40% Hypertension Hyperlipidemia PLAN: -Increase metoprolol tartrate 50mg TID -Decrease losartan to 24mg daily -Obtain repeat echocardiogram -Continue cardiac telemetry -Eliquis on hold due to possible GI bleed -Further recommendations based on clinical course Nurse practitioner note has been reviewed by physician. Signing provider agrees with the documented findings, assessment, and plan of care. Objective - Vital Signs Vital signs: Vital Signs Temp 98.0 F 05/09/21 07:27 Pulse 77 05/09/21 09:01 Resp 19 05/09/21 09:01 BP 133/61 05/09/21 07:27 Pulse Ox 97 05/09/21 04:20 Intake & Output 05/08/21 05/09/21 05/09/21 18:59 06:59 18:59 Intake Total 300 1150 Balance 300 1150 Weight 72.575 kg Intake: IV 300 Intake, IV Titration 900 Amount Dextrose 5%-0.45% NaCl 1, 900 000 ml @ 75 mls/hr IV . [id number] [facility] Rx#:[id number] Oral 250 Other: Voiding Method Bedside Commode Toilet Diaper # Voids 2 # Bowel Movements 1 - Labs CBC & Chem 7: 05/08/21 06:52 05/09/21 06:01 Labs: Abnormal Lab Results - Last 24 Hours (Table) 05/09/21 Range/Units 06:01 Sodium 131 L (137-145) mmol/L Chloride 111 H (98-107) mmol/L Carbon Dioxide 20 L (22-30) mmol/L BUN 18 H (7-17) mg/dL Calcium 7.8 L (8.4-10.2) mg/dL
[2021-05-09] MEDS: GABAPENTIN 100 MG CAP PO SCH ×3 (11:15→21:13)
[2021-05-09] MEDS: METOPROLOL TARTRATE 50 MG TAB PO SCH ×3 (11:16→21:14)
[2021-05-09] MEDS: PANTOPRAZOLE 40 MG/10 ML VIAL IVP SCH ×2 (11:17→21:13)
--- NOTE | 2021-05-09 14:50 | P.PN ---
Subjective Progress Note Date: 05/09/21 CHIEF COMPLAINT: GI bleed HISTORY OF PRESENT ILLNESS: Patient was in the process of admitting EGD complet ed yesterday and went into ventricular tachycardia. Cardiology is consulted. They've the chest patient's metoprolol. Patient's EGD and colonoscopy were aborted yesterday due to the V. tach. Patient reports no further black stools. She reports minimal abdominal pain. Denies any nausea or vomiting. Hemoglobin was 9.1 yesterday patient's mentation has shown improvement. She's up and ambulating in hallway Patient seen and examined with Dr. atkins PHYSICAL EXAM: VITAL SIGNS: Reviewed. GENERAL: Well-developed in no acute distress. HEENT: No sclera icterus. Extraocular movements grossly intact. Moist buccal mucosa. Head is atraumatic, normocephalic. ABDOMEN: Soft. Nondistended. NEUROLOGIC: Alert and oriented. Cranial nerves II through XII grossly intact. ASSESSMENT: 1. Anemia with dark stools 2. History of GI bleed and peptic ulcer disease 3. History of ulcers at the anastomotic site of her Suzanna-en-Y surgery noted on EGDs in September and December [address] Beasley PLAN: -No plans for repeat endoscopies during this admission. Will eventually repeat endoscopies when patient is medically stable. -Continue to monitor for any signs or symptoms of bleeding -Repeat CBC in a.m. -Continue regular diet Physician Plumbing And Heating Mechanic note has been reviewed by physician. Signing provider agrees with the documented findings, assessment, and plan of care. Objective - Vital Signs Vital signs: Vital Signs Temp 98.1 F 05/09/21 11:13 Pulse 80 05/09/21 11:13 Resp 18 05/09/21 11:13 BP 132/69 05/09/21 11:13 Pulse Ox 94 L 05/09/21 11:13 Intake & Output 05/08/21 05/09/21 05/09/21 18:59 06:59 18:59 Intake Total 300 1150 720 Balance 300 1150 720 Weight 72.575 kg Intake: IV 300 Intake, IV Titration 900 600 Amount Dextrose 5%-0.45% NaCl 1, 900 600 000 ml @ 75 mls/hr IV . [id number] [facility] Rx#:[id number] Oral 250 120 Other: Voiding Method Bedside Commode Toilet Diaper # Voids 2 3 # Bowel Movements 1 1 - Labs CBC & Chem 7: 05/08/21 06:52 05/09/21 06:01 Labs: Abnormal Lab Results - Last 24 Hours (Table) 05/09/21 Range/Units 06:01 Sodium 131 L (137-145) mmol/L Chloride 111 H (98-107) mmol/L Carbon Dioxide 20 L (22-30) mmol/L BUN 18 H (7-17) mg/dL Calcium 7.8 L (8.4-10.2) mg/dL
[2021-05-09] MEDS: LOSARTAN 25 MG TAB PO SCH (18:30)
--- NOTE | 2021-05-10 00:17 | P.PN ---
Subjective Progress Note Date: 05/09/21 Patient is a 75-year-old female with a known history of paroxysmal atrial fibrillation on anticoagulation with Eliquis coronary artery disease with history of stent placement, chronic back pain and opiate use, GERD, history of GI bleed, hearing disorder/deafness, peptic ulcer disease, anxiety/depression and panic disorder and previous history of smoking was brought to the hospital by EMS due to altered mental status. Patient last well-known was yesterday and today morning she was found on the bed with altered mentation by her son around 8:30 AM. Patient wakes up by her name and going back to sleep. Could not provide any history at this time. Patient did not have any fever or chills recently. No recent nausea vomiting or diarrhea. Denies any complaints of pain does not appears to be in pain.. Patient reportedly has recently discontinued her chronic pain medication. Patient was found to be in feces upon admission. CT head showed is related atrophic and chronic small vessel ischemic changes without acute intracranial process seen at this time. Chest x-ray showed chronic changes without evidence for acute pulmonary disease. EKG showed sinus rhythm with first-degree AV block Urinalysis is negative for infection Laboratory data showed WBC 11.5 hemoglobin 12.0 MCV 100.3 platelets 330 Sodium 137 potassium 3.2 chloride 106 bicarb is 17 BUN 20 and creatinine 1.17 blood sugar is 104 Calcium 8.3 bilirubin level 1.3 AST 36 ALT 15 alk phos 122 albumin 2.9 and troponin less than 0.012 UDS is positive for opiates and oxycodone. Coronavirus PCR not detected. 05/04/2021 Patient is still confused a but more awake and alert today. Patient is moaning and involuntarily moving her hands. Could not provide any history. Able to respond with verbal stimuli but does not follow simple commands.. Patient has been afebrile. Able to tolerate pured diet and able to take her medications today. Currently requiring 3 L oxygen via nasal cannula and is IV hydration with normal saline at 75 cc/h. Patient was seen by neurology. WBC 14.9 hemoglobin 9.3 and platelets 272 Sodium 144 potassium 5.1 chloride 111 bicarb is 31.4 BUN 28.7 creatinine 1.7 Current medications reviewed. 05/05/2021 She is seen in follow-up in follow up this morning and continues to be confused and slightly improved from yesterday. Patient continues to be restless and answering questions but continues with confusion. Patient is reporting abdominal pain and per nursing staff, large dark stools noted and there was a drop in hemoglobin. General surgery consulted for possible endoscopic intervention. Psychiatry and neurology following as well. Patient to undergo EEG today. Sodium continues to be elevated and changing IV fluids to D5/.45 Ns and will repeat am labs. BP is elevated and will resume losartan as kidney functions improved. .. 05/06/2021 Patient is currently resting in bed. Mentation is much improved. Patient is awake alert and oriented x3. No complaints of chest pain or shortness of. Complaints of back pain and requesting narcotic pain medications. Otherwise patient has been afebrile. No headache or dizziness or lightheadedness. No complaints of nausea or vomiting or abdominal pain. Patient was seen by psychiatry. Patient was started on gabapentin. No other acute overnight issues. PT OT will be consulted. Laboratory data showed WBC came down to 8.67 hemoglobin 9.0 and platelets 249 Patient is scheduled for colonoscopy on Saturday. 05/07/2021 Patient is lying in the bed awake alert oriented x3. Complains of lower back pain and is being continued on Tylenol for pain management. Patient is also on gabapentin. Patient has been afebrile. Mentation is much improved now. No nausea vomiting or abdominal pain or diarrhea. Denied any dark-colored stools today. Patient is taking GoLYTELY for scheduled colonoscopy tomorrow Laboratory data showed WBC 7.1 hemoglobin 10.3 and platelets 296 Sodium 134 potassium 4.4 chloride 113 bicarb is 19 BUN 33 and creatinine 0.83 Neurology and general surgery is on board. 05/08/2021 Patient is seen and evaluated this morning lying in bed much more awake and alert 3 answering appropriately. No acute overnight issues noted. Per nursing staff patient is back to baseline and completely alert and oriented. Patient going down for prolonged EEG as neuro is following and patient is scheduled for EGD/colonoscopy with surgery today. Will await report. Hemoglobin is stable at 9.1. Patient is currently nothing by mouth for the procedure. Social work also following and patient is agreeable to rehab if needed and referrals have been placed. Will continue to follow with patient about discharge planning. PT/OT following. 05/09/2021 Patient is seen this morning much more awake and alert 3 currently sitting up in the chair. Cardiology now following as patient had episodes of V. tach while undergoing EGD and colonoscopy and endoscopic intervention was aborted. Patient was maintained on metoprolol 50 mg twice daily and have increased the dose. General surgery recommend outpatient follow-up with endoscopic intervention once medically stable. Psychiatry also following and recommending Effexor and will discuss further about adding new medications once more stable. Sodium is 131 today and patient was maintained on IV fluids which were discontinued and encouraged oral intake and will repeat labs. Labs: Sodium is 131, potassium 4.2, BUN is 18, creatinine 0.57, calcium is 7.8, magnesium 1.7 Review of systems: unable to obtain and patient continues with confusion All medications have been reviewed Active Medications Acetaminophen (Acetaminophen Tab 325 Mg Tab) 650 mg PO Q6HR PRN PRN Reason: Fever and/ or Pain Last Admin: 05/07/21 07:44 Dose: 650 mg Documented by: Gabapentin (Gabapentin 100 Mg Cap) 300 mg PO TID [facility] Last Admin: 05/09/21 11:15 Dose: 300 mg Documented by: Levothyroxine Sodium (Levothyroxine 100 Mcg Tab) 200 mcg PO DAILY@0630 [facility] Last Admin: 05/09/21 05:50 Dose: 200 mcg Documented by: Losartan Potassium (Losartan 25 Mg Tab) 25 mg PO DAILY@1800 [facility] Metoprolol Tartrate (Metoprolol Tartrate 50 Mg Tab) 50 mg PO TID [facility] Last Admin: 05/09/21 11:16 Dose: 50 mg Documented by: Miscellaneous Information (Potassium Replacement Protocol 1 Each Misc) 1 each MISCELLANE DAILY PRN; Protocol PRN Reason: Per Protocol Naloxone HCl (Naloxone 0.4 Mg/Ml 1 Ml Vial) 0.2 mg IV Q2M PRN PRN Reason: Opioid Reversal Pantoprazole Sodium (Pantoprazole 40 Mg/10 Ml Vial) 40 mg IVP BID [facility] Last Admin: 05/09/21 11:17 Dose: 40 mg Documented by: PHYSICAL EXAMINATION: Patient is lying in the bed awake alert and oriented 3. Not in any acute distress, well-developed, well-nourished.. HEENT: Normocephalic. Neck is supple. Pupils reactive. Nostrils clear. Oral cavity is moist. Neck reveals no JVD, carotid bruits, or thyromegaly. CHEST EXAMINATION: Trachea is central. Symmetrical expansion. Lung herrera clear to auscultation and percussion. CARDIAC: Normal S1, S2 with no gallops. No murmurs ABDOMEN: Soft. Bowel sounds normal. No organomegaly. No abdominal bruits. Nontender on palpation Extremities: reveal no edema. No clubbing or cyanosis Neurologically awake, alert, oriented x3. No focal neurological deficits noted. Diffuse weakness Skin: No rash or skin lesions. Psychiatric: Alert and oriented 3, non-suicidal, cooperative Musculoskeletal: No joint swelling or deformity. Assessment: Altered mental status. Possible metabolic, toxic encephalopathy. CT head showed no acute CVA. UDS positive for opiates and oxycodone. Mental status improved now Delirium and involuntary upper and lower extremity movements. Resolved Acute kidney injury, improving Hypokalemia, improved Hypernatremia, improved now hyponatremic most likely secondary to poor oral intake and just completed bowel prep possible acute GI bleed with dark stools and drop in hemoglobin, no active bleeding noted and hemoglobin is stable Chronic back pain and opiate use Paroxysmal atrial fibrillation on anticoagulation with Eliquis, currently on hold, cardiology now following and will discuss about resuming eliquis Coronary artery disease history of stent placement GERD History of GI bleed and peptic ulcer disease Anxiety/depression panic disorder Previous history of smoking DVT prophylaxis patient is already on full anticoagulation with Eliquis which is being held for possible GI bleed Plan: Patient will be continued on current medication regimen. Apparently just prior to the start of endoscopy, there were some runs of vtac and EGD/colonoscopy were aborted. Cardiology consulted and increasing metoprolol. Eliquis was on hold and will discuss with surgery and cardio about resuming. Diet resumed and tolerating. Patient reports to eating about 50% of each meal and also states she does not each much and oral intake is poor at home at times. Encourage oral intake. Prolonged EEG was done and will await report with neurology following. Psychiatry also following. Continue with neurochecks and monitor for opiate withdrawal symptoms. We'll repeat labs and continue to monitor closely. Continue with PT/OT daily and patient did well with them today. Patient will likely go home with home care. Will discuss further discharge planning once patient has been cleared by neurology and surgery. Continue with supportive care and follow-up closely. Prognosis guarded. Possible discharge in 24 hours. Patient to follow up with general surgery outpatient for EGD/colonoscopy once more stable. Objective - Vital Signs Vital signs: Vital Signs Temp 98.0 F 05/09/21 07:27 Pulse 77 05/09/21 07:27 Resp 19 05/09/21 07:27 BP 133/61 05/09/21 07:27 Pulse Ox 97 05/09/21 04:20 Intake & Output 05/08/21 05/09/21 05/09/21 18:59 06:59 18:59 Intake Total 300 1150 Balance 300 1150 Weight 72.575 kg Intake: IV 300 Intake, IV Titration 900 Amount Dextrose 5%-0.45% NaCl 1, 900 000 ml @ 75 mls/hr IV . [id number] [facility] Rx#:[id number] Oral 250 Other: Voiding Method Bedside Commode Bedside Commode Diaper # Voids 2 # Bowel Movements 1 - Labs CBC & Chem 7: 05/08/21 06:52 05/09/21 06:01 Labs: Abnormal Lab Results - Last 24 Hours (Table) 05/09/21 Range/Units 06:01 Sodium 131 L (137-145) mmol/L Chloride 111 H (98-107) mmol/L Carbon Dioxide 20 L (22-30) mmol/L BUN 18 H (7-17) mg/dL Calcium 7.8 L (8.4-10.2) mg/dL
[2021-05-10] MEDS: LEVOTHYROXINE 100 MCG TAB PO SCH (05:41)
[2021-05-10 07:04] LABS: African American GFR (CKD) >90 (>60 ml/min/1.73 sqM); Anion Gap 2 mmol/L; Blood Urea Nitrogen 12 mg/dL (7-17); Calcium 7.8 mg/dL (8.4-10.2); Carbon Dioxide 18 mmol/L (22-30); Chloride 109 mmol/L (98-107); Glucose 104 mg/dL (74-99); Non-African American GFR(CKD) >90 (>60 ml/min/1.73 sqM); Potassium 3.9 mmol/L (3.5-5.1); Sodium 129 mmol/L (137-145)
[2021-05-10 09:18] LABS: HCT 29.6 % (37.2-46.3); HGB 8.6 g/dL (12.0-15.0); MCH 29.9 pg (27.0-32.0); MCHC 29.1 g/dL (32.0-37.0); MCV 102.8 fL (80.0-97.0); Mean Platelet Volume 10.3 fL (9.5-12.2); NRBC Per 100 WBC 0 /100 WBCS (0.0-0.0); Platelet Count 318 X 10*3/uL (140-440); RBC 2.88 X 10*6/uL (4.10-5.20); RDW 18.2 % (11.5-14.5)
[2021-05-10] MEDS: METOPROLOL TARTRATE 50 MG TAB PO SCH ×3 (09:39→21:03)
[2021-05-10] MEDS: PANTOPRAZOLE 40 MG/10 ML VIAL IVP SCH ×2 (09:39→20:11)
[2021-05-10] MEDS: GABAPENTIN 100 MG CAP PO SCH ×3 (09:39→21:04)
--- NOTE | 2021-05-10 11:12 | P.PN ---
Subjective This is a 75-year-old female with a past medical history significant for nonobstructive CAD, paroxysmal atrial fibrillation on Eliquis, hypertension, hyperlipidemia, nonischemic cardiomyopathy, and diverticulitis with history of colectomy and colostomy placement and subsequent reversal of colostomy in October 2020. Patient has not been following in the office with a second officer. She was last seen in the office in 2012. We have been asked to see the patient in consultation for ventricular tachycardia. Patient presented to the hospital on 05/03/21 with alerted mental status and dark colored stools. She states she did have a syncopal episode. Her UA was positive for opiates and oxycodone. Patient was hydrated and had improvement in mental status. On 05/08/21, patient was scheduled for EGD, patient was given IV sedation, EGD was started and patient had a brief episode of non-sustained ventricular tachycardia on the monitor, no telemetry strips were available to review, EGD was cancelled. 05/10/21 Patient seen and examined at bedside, no acute distress. Telemetry reviewed, her PVCs and NSVT has improved, patient with 4-5 beat run of NSVT overnight twice. Patient is asymptomatic. Patient maintained sinus mechanism. Patient denies any chest pain, shortness of breath, palpitations, leg numbness, dizziness. Patient is currently maintained on losartan 25 mg daily, metoprolol tartrate 50 mg TID. Eliquis remains on hold. Patient endorsed some chest pain later this morning repeat ekg revealed sinus rhythm HR 67, T wave inversion in lead V2 and V3. PHYSICAL EXAM: VITAL SIGNS: Reviewed. GENERAL: Well-developed in no acute distress. HEENT: Neck supple. No JVD LUNGS: Respirations even and unlabored. Lungs essentially clear to auscultation bilaterally. HEART: Irregular rate and rhythm. S1 and S2 heard. Systolic murmur noted. ABDOMEN: Soft. Nondistended. Nontender. EXTREMITIES: Normal range of motion. No clubbing or cyanosis. Peripheral pulses intact. No lower extremity edema NEUROLOGIC: Awake and alert. Oriented x 3. ASSESSMENT: Non-sustained ventricular tachycardia, asymptomatic Altered mental status, improved Dark colored stools, rule out GI bleed Acute kidney injury Hypokalemia, improving Paroxysmal atrial fibrillation, on Eliquis outpatient Nonobstructive coronary artery disease Non-ischemic cardiomyopathy, ejection fraction 35-40% Hypertension Hyperlipidemia PLAN: -Continue metoprolol tartrate 50mg TID -Continue losartan to 24mg daily -Continue cardiac telemetry -PRN nitro for chest pain -Eliquis on hold due to possible GI bleed -Further recommendations based on clinical course Nurse practitioner note has been reviewed by physician. Signing provider agrees with the documented findings, assessment, and plan of care. Objective - Vital Signs Vital signs: Vital Signs Temp 98.4 F 05/10/21 04:20 Pulse 66 05/10/21 04:20 Resp 20 05/10/21 04:20 BP 132/73 05/10/21 04:20 Pulse Ox 98 05/10/21 04:20 Intake & Output 05/09/21 05/10/21 05/10/21 18:59 06:59 18:59 Intake Total 720 800 Balance 720 800 Intake: Intake, IV Titration 600 Amount Dextrose 5%-0.45% NaCl 1, 600 000 ml @ 75 mls/hr IV . [id number] [facility] Rx#:[id number] Oral 120 800 Other: Voiding Method Toilet Toilet # Voids 3 3 # Bowel Movements 1 - Labs CBC & Chem 7: 05/10/21 06:28 05/10/21 06:28 Labs: Abnormal Lab Results - Last 24 Hours (Table) 05/10/21 05/10/21 Range/Units 06:28 06:28 RBC 2.88 L (4.10-5.20) X 10*6/uL Hgb 8.6 L (12.0-15.0) g/dL Hct 29.6 L (37.2-46.3) % MCV 102.8 H (80.0-97.0) fL MCHC 29.1 L (32.0-37.0) g/dL RDW 18.2 H (11.5-14.5) % Sodium 129 L (137-145) mmol/L Chloride 109 H (98-107) mmol/L Carbon Dioxide 18 L (22-30) mmol/L Glucose 104 H (74-99) mg/dL Calcium 7.8 L (8.4-10.2) mg/dL
[2021-05-10] MEDS: NITROGLYCERIN OINT 1 INCH/GM PACKET TOPICAL SCH ×3 (11:31→23:40)
[2021-05-10 12:35] LABS: Creatine Kinase MB 0.4 ng/mL (0.0-2.4); Troponin I 0.015 ng/mL (0.000-0.034)
--- NOTE | 2021-05-10 15:31 | P.PN ---
Subjective Progress Note Date: 05/10/21 CHIEF COMPLAINT: GI bleed HISTORY OF PRESENT ILLNESS: Patient was in the process of admitting EGD complet ed yesterday and went into ventricular tachycardia. Patient seen evaluated by cardiology. They have adjust medications. Patient's EGD and colonoscopy were aborted yesterday due to the V. tach. Patient reports no further black stools. She reports minimal abdominal pain. Denies any nausea or vomiting. He will and 9.1 down to 8.6 Patient seen and examined with Dr. atkins PHYSICAL EXAM: VITAL SIGNS: Reviewed. GENERAL: Well-developed in no acute distress. HEENT: No sclera icterus. Extraocular movements grossly intact. Moist buccal mucosa. Head is atraumatic, normocephalic. ABDOMEN: Soft. Nondistended. NEUROLOGIC: Alert and oriented. Cranial nerves II through XII grossly intact. ASSESSMENT: 1. Anemia with dark stools. EGD and colonoscopy had to be aborted due to episode of V. tach 2. History of GI bleed and peptic ulcer disease 3. History of ulcers at the anastomotic site of her Suzanna-en-Y surgery noted on EGDs in September and December [address] Beasley PLAN: -No plans for repeat endoscopies during this admission. Will eventually repeat endoscopies when patient is medically stable. -Okay to resume Eliquis from surgical standpoint -Continue to monitor for any signs or symptoms of bleeding -Repeat CBC in a.m. -Continue regular diet Physician Aesthetician note has been reviewed by physician. Signing provider agrees with the documented findings, assessment, and plan of care. Objective - Vital Signs Vital signs: Vital Signs Temp 98.2 F 05/10/21 11:42 Pulse 77 05/10/21 13:53 Resp 16 05/10/21 11:42 BP 110/65 05/10/21 13:53 Pulse Ox 98 05/10/21 11:42 Intake & Output 05/09/21 05/10/21 05/10/21 18:59 06:59 18:59 Intake Total 720 800 Balance 720 800 Intake: Intake, IV Titration 600 Amount Dextrose 5%-0.45% NaCl 1, 600 000 ml @ 75 mls/hr IV . [id number] [facility] Rx#:[id number] Oral 120 800 Other: Voiding Method Toilet Toilet Toilet # Voids 3 3 # Bowel Movements 1 - Labs CBC & Chem 7: 05/10/21 06:28 05/10/21 06:28 Labs: Abnormal Lab Results - Last 24 Hours (Table) 05/10/21 05/10/21 Range/Units 06:28 06:28 RBC 2.88 L (4.10-5.20) X 10*6/uL Hgb 8.6 L (12.0-15.0) g/dL Hct 29.6 L (37.2-46.3) % MCV 102.8 H (80.0-97.0) fL MCHC 29.1 L (32.0-37.0) g/dL RDW 18.2 H (11.5-14.5) % Sodium 129 L (137-145) mmol/L Chloride 109 H (98-107) mmol/L Carbon Dioxide 18 L (22-30) mmol/L Glucose 104 H (74-99) mg/dL Calcium 7.8 L (8.4-10.2) mg/dL
[2021-05-10] MEDS: LOSARTAN 25 MG TAB PO SCH (17:42)
[2021-05-10] MEDS: APIXABAN 5 MG TAB PO SCH (20:11)
[2021-05-10] MEDS: ACETAMINOPHEN TAB 325 MG TAB PO PRN (20:11)
--- NOTE | 2021-05-10 23:39 | P.PN ---
Subjective Progress Note Date: 05/10/21 Patient is a 75-year-old female with a known history of paroxysmal atrial fibrillation on anticoagulation with Eliquis coronary artery disease with history of stent placement, chronic back pain and opiate use, GERD, history of GI bleed, hearing disorder/deafness, peptic ulcer disease, anxiety/depression and panic disorder and previous history of smoking was brought to the hospital by EMS due to altered mental status. Patient last well-known was yesterday and today morning she was found on the bed with altered mentation by her son around 8:30 AM. Patient wakes up by her name and going back to sleep. Could not provide any history at this time. Patient did not have any fever or chills recently. No recent nausea vomiting or diarrhea. Denies any complaints of pain does not appears to be in pain.. Patient reportedly has recently discontinued her chronic pain medication. Patient was found to be in feces upon admission. CT head showed is related atrophic and chronic small vessel ischemic changes without acute intracranial process seen at this time. Chest x-ray showed chronic changes without evidence for acute pulmonary disease. EKG showed sinus rhythm with first-degree AV block Urinalysis is negative for infection Laboratory data showed WBC 11.5 hemoglobin 12.0 MCV 100.3 platelets 330 Sodium 137 potassium 3.2 chloride 106 bicarb is 17 BUN 20 and creatinine 1.17 blood sugar is 104 Calcium 8.3 bilirubin level 1.3 AST 36 ALT 15 alk phos 122 albumin 2.9 and troponin less than 0.012 UDS is positive for opiates and oxycodone. Coronavirus PCR not detected. 05/04/2021 Patient is still confused a but more awake and alert today. Patient is moaning and involuntarily moving her hands. Could not provide any history. Able to respond with verbal stimuli but does not follow simple commands.. Patient has been afebrile. Able to tolerate pured diet and able to take her medications today. Currently requiring 3 L oxygen via nasal cannula and is IV hydration with normal saline at 75 cc/h. Patient was seen by neurology. WBC 14.9 hemoglobin 9.3 and platelets 272 Sodium 144 potassium 5.1 chloride 111 bicarb is 31.4 BUN 28.7 creatinine 1.7 Current medications reviewed. 05/05/2021 She is seen in follow-up in follow up this morning and continues to be confused and slightly improved from yesterday. Patient continues to be restless and answering questions but continues with confusion. Patient is reporting abdominal pain and per nursing staff, large dark stools noted and there was a drop in hemoglobin. General surgery consulted for possible endoscopic intervention. Psychiatry and neurology following as well. Patient to undergo EEG today. Sodium continues to be elevated and changing IV fluids to D5/.45 Ns and will repeat am labs. BP is elevated and will resume losartan as kidney functions improved. .. 05/06/2021 Patient is currently resting in bed. Mentation is much improved. Patient is awake alert and oriented x3. No complaints of chest pain or shortness of. Complaints of back pain and requesting narcotic pain medications. Otherwise patient has been afebrile. No headache or dizziness or lightheadedness. No complaints of nausea or vomiting or abdominal pain. Patient was seen by psychiatry. Patient was started on gabapentin. No other acute overnight issues. PT OT will be consulted. Laboratory data showed WBC came down to 8.67 hemoglobin 9.0 and platelets 249 Patient is scheduled for colonoscopy on Saturday. 05/07/2021 Patient is lying in the bed awake alert oriented x3. Complains of lower back pain and is being continued on Tylenol for pain management. Patient is also on gabapentin. Patient has been afebrile. Mentation is much improved now. No nausea vomiting or abdominal pain or diarrhea. Denied any dark-colored stools today. Patient is taking GoLYTELY for scheduled colonoscopy tomorrow Laboratory data showed WBC 7.1 hemoglobin 10.3 and platelets 296 Sodium 134 potassium 4.4 chloride 113 bicarb is 19 BUN 33 and creatinine 0.83 Neurology and general surgery is on board. 05/08/2021 Patient is seen and evaluated this morning lying in bed much more awake and alert 3 answering appropriately. No acute overnight issues noted. Per nursing staff patient is back to baseline and completely alert and oriented. Patient going down for prolonged EEG as neuro is following and patient is scheduled for EGD/colonoscopy with surgery today. Will await report. Hemoglobin is stable at 9.1. Patient is currently nothing by mouth for the procedure. Social work also following and patient is agreeable to rehab if needed and referrals have been placed. Will continue to follow with patient about discharge planning. PT/OT following. 05/09/2021 Patient is seen this morning much more awake and alert 3 currently sitting up in the chair. Cardiology now following as patient had episodes of V. tach while undergoing EGD and colonoscopy and endoscopic intervention was aborted. Patient was maintained on metoprolol 50 mg twice daily and have increased the dose. General surgery recommend outpatient follow-up with endoscopic intervention once medically stable. Psychiatry also following and recommending Effexor and will discuss further about adding new medications once more stable. Sodium is 131 today and patient was maintained on IV fluids which were discontinued and encouraged oral intake and will repeat labs. 05/10/2021 Patient is evaluated this morning and denies any further episodes of dark stools. Eliquis was on hold and will resume per surgery recommendations and will likely have outpatient endoscopic interventions once more stable. Discussed discharge planning and patient plans to go home with sister until feeling better to go home. Patient has been working with physical therapy and states she walked up and down the murillo again today. Hemoglobin stable at 8.6. Cardiology following and patient continued on metoprolol 50mg TID and will continue. Per nursing staff, continued PVCs on the tele and patient is asymptomatic of chest pain or palpitations. Sodium trending down and is 129 today. Will fluid restrict of 1200ml/day and repeat am labs. Labs: WBC is 7.9, hgb is 8.6, plts 318, Sodium is 129, potassium 3.9, BUN is 12, creatinine 0.56, calcium is 7.8, ckmb is .4, troponin is 0.015 Review of systems: Constitutional: No reports of fatigue, fevers, or chills Cardio: reports chest pain, denies palpitations REsp: No reports of shortness of breath or cough GI: no reports of nausea or vomiting, reports poor oral intake : no reports of dysuria or retention Neuro: No reports of weakness or numbness All medications have been reviewed Active Medications Acetaminophen (Acetaminophen Tab 325 Mg Tab) 650 mg PO Q6HR PRN PRN Reason: Fever and/ or Pain Last Admin: 05/07/21 07:44 Dose: 650 mg Documented by: Gabapentin (Gabapentin 100 Mg Cap) 300 mg PO TID [facility] Last Admin: 05/09/21 11:15 Dose: 300 mg Documented by: Levothyroxine Sodium (Levothyroxine 100 Mcg Tab) 200 mcg PO DAILY@0630 [facility] Last Admin: 05/09/21 05:50 Dose: 200 mcg Documented by: Losartan Potassium (Losartan 25 Mg Tab) 25 mg PO DAILY@1800 [facility] Metoprolol Tartrate (Metoprolol Tartrate 50 Mg Tab) 50 mg PO TID [facility] Last Admin: 05/09/21 11:16 Dose: 50 mg Documented by: Miscellaneous Information (Potassium Replacement Protocol 1 Each Misc) 1 each MISCELLANE DAILY PRN; Protocol PRN Reason: Per Protocol Naloxone HCl (Naloxone 0.4 Mg/Ml 1 Ml Vial) 0.2 mg IV Q2M PRN PRN Reason: Opioid Reversal Pantoprazole Sodium (Pantoprazole 40 Mg/10 Ml Vial) 40 mg IVP BID [facility] Last Admin: 05/09/21 11:17 Dose: 40 mg Documented by: PHYSICAL EXAMINATION: Patient is lying in the bed awake alert and oriented 3. Not in any acute distress, well-developed, well-nourished.. HEENT: Normocephalic. Neck is supple. Pupils reactive. Nostrils clear. Oral cavity is moist. Neck reveals no JVD, carotid bruits, or thyromegaly. CHEST EXAMINATION: Trachea is central. Symmetrical expansion. Lung herrera clear to auscultation and percussion. CARDIAC: Normal S1, S2 with no gallops. No murmurs ABDOMEN: Soft. Bowel sounds normal. No organomegaly. No abdominal bruits. Non- tender on palpation Extremities: reveal no edema. No clubbing or cyanosis Neurologically awake, alert, oriented x3. No focal neurological deficits noted. Skin: No rash or skin lesions. Psychiatric: Alert and oriented 3, non-suicidal, cooperative Musculoskeletal: No joint swelling or deformity. Assessment: Altered mental status. Possible metabolic, toxic encephalopathy. CT head showed no acute CVA. UDS positive for opiates and oxycodone. Mental status improved now Delirium and involuntary upper and lower extremity movements. Resolved Acute kidney injury, improved Hypokalemia, improved Hyponatremia, most likely secondary to poor oral intake possible acute GI bleed with dark stools and drop in hemoglobin, no active bleeding noted and hemoglobin is stable Chronic back pain and opiate use Paroxysmal atrial fibrillation on anticoagulation with Eliquis, resumed Coronary artery disease history of stent placement GERD History of GI bleed and peptic ulcer disease Anxiety/depression panic disorder Previous history of smoking DVT prophylaxis; Eliquis Plan: Patient will be continued on current medication regimen. Per nursing staff, continued PVCs and during exam patient denied chest pain, palpitations, or shortness of breath. Cardiology and general surgery and psychiatry following. Patient reported chest pain on reevaluation with cardiology and troponins, 2d echo, ckmb ordered and pending. Troponins negative and CKMB is.4. Patient to continue on metoprolol. 2D echo pending at this time. Eliquis resumed as there are no further episodes of dark stools and hemoglobin is lower today although stable at 8.6. No plan for endoscopic intervention at this time and can follow up outpatient with surgery for this. Encourage oral intake. Sodium trending down and is 129 today. Patient eats very little and will fluid restrict and repeat am labs. Continue with supportive care and follow-up closely. Prognosis guarded. Poss ible discharge in 24-48 hours. Patient to follow up with general surgery outpatient for EGD/colonoscopy once more stable. Objective - Vital Signs Vital signs: Vital Signs Temp 98.4 F 05/10/21 04:20 Pulse 66 05/10/21 04:20 Resp 20 05/10/21 04:20 BP 132/73 05/10/21 04:20 Pulse Ox 98 05/10/21 04:20 Intake & Output 05/09/21 05/10/21 05/10/21 18:59 06:59 18:59 Intake Total 720 800 Balance 720 800 Intake: Intake, IV Titration 600 Amount Dextrose 5%-0.45% NaCl 1, 600 000 ml @ 75 mls/hr IV . [id number] [facility] Rx#:[id number] Oral 120 800 Other: Voiding Method Toilet Toilet # Voids 3 3 # Bowel Movements 1 - Labs CBC & Chem 7: 05/10/21 06:28 05/10/21 06:28 Labs: Abnormal Lab Results - Last 24 Hours (Table) 05/10/21 Range/Units 06:28 Sodium 129 L (137-145) mmol/L Chloride 109 H (98-107) mmol/L Carbon Dioxide 18 L (22-30) mmol/L Glucose 104 H (74-99) mg/dL Calcium 7.8 L (8.4-10.2) mg/dL
[2021-05-11] MEDS: LEVOTHYROXINE 100 MCG TAB PO SCH (06:04)
[2021-05-11] MEDS: NITROGLYCERIN OINT 1 INCH/GM PACKET TOPICAL SCH ×4 (06:05→23:37)
[2021-05-11 06:34] LABS: Anisocytosis Slight; Basophils % (A) 1 %; Eosinophils # (A) 0.2 k/uL (0-0.7); Eosinophils % (A) 2 %; HCT 25.6 % (34.0-46.0); Hypochromasia Marked; Lymphocytes # (A) 1.6 k/uL (1.0-4.8); Lymphocytes % (A) 18 %; MCH 31.9 pg (25.0-35.0); MCHC 31.4 g/dL (31.0-37.0); MCV 101.5 fL (80.0-100.0); Macrocytosis Moderate; Mean Platelet Volume 7.9; Monocytes # (A) 0.5 k/uL (0-1.0); Monocytes % (A) 6 %; Neutrophils # (A) 6.3 k/uL (1.3-7.7); Neutrophils % (A) 71 %; Platelet Count 349 k/uL (150-450); RBC 2.52 m/uL (3.80-5.40); WBC 8.9 k/uL (3.8-10.6)
[2021-05-11 06:58] LABS: African American GFR (CKD) >90 (>60 ml/min/1.73 sqM); Anion Gap 1 mmol/L; Blood Urea Nitrogen 13 mg/dL (7-17); Calcium 7.6 mg/dL (8.4-10.2); Carbon Dioxide 19 mmol/L (22-30); Chloride 110 mmol/L (98-107); Glucose 91 mg/dL (74-99); Magnesium 1.6 mg/dL (1.6-2.3); Non-African American GFR(CKD) >90 (>60 ml/min/1.73 sqM); Potassium 4.4 mmol/L (3.5-5.1); Sodium 130 mmol/L (137-145)
[2021-05-11] MEDS: PANTOPRAZOLE 40 MG/10 ML VIAL IVP SCH ×2 (07:29→20:22)
[2021-05-11] MEDS: METOPROLOL TARTRATE 50 MG TAB PO SCH ×2 (07:29→15:31)
[2021-05-11] MEDS: GABAPENTIN 100 MG CAP PO SCH ×3 (07:29→21:09)
[2021-05-11] MEDS: APIXABAN 5 MG TAB PO SCH ×2 (07:29→20:22)
[2021-05-11] MEDS ORDERED: Magnesium Replacement Protocol 1 EACH MISC MISCELLANE PRN (10:32)
[2021-05-11 11:04] VITALS: BMI 25.8
[2021-05-11] MEDS: MAGNESIUM SULFATE-D5W PMX 1 GM in DEXTROSE/WATER 1 100ML.BAG IVPB SCH ×2 (11:04→11:55)
[2021-05-11] MEDS: ACETAMINOPHEN TAB 325 MG TAB PO PRN (11:11)
--- NOTE | 2021-05-11 12:12 | P.PN ---
Subjective This is a 75-year-old female with a past medical history significant for nonobstructive CAD, paroxysmal atrial fibrillation on Eliquis, hypertension, hyperlipidemia, nonischemic cardiomyopathy, and diverticulitis with history of colectomy and colostomy placement and subsequent reversal of colostomy in October 2020. Patient has not been following in the office with a radiological technician. She was last seen in the office in 2012. We have been asked to see the patient in consultation for ventricular tachycardia. Patient presented to the hospital on 05/03/21 with alerted mental status and dark colored stools. She states she did have a syncopal episode. Her UA was positive for opiates and oxycodone. Patient was hydrated and had improvement in mental status. On 05/08/21, patient was scheduled for EGD, patient was given IV sedation, EGD was started and patient had a brief episode of non-sustained ventricular tachycardia on the monitor, no telemetry strips were available to review, EGD was cancelled. 05/11/21 Patient seen and examined at bedside, no acute distress. Telemetry reviewed, patient in sinus mechanism HR 60s-70s, she continues to have NSVT, patient with multiple episodes of NSVT, longest episode was 11beats. Patient is asymptomatic. She does have diarrhea today. Patient maintained sinus mechanism. Patient denies any chest pain, shortness of breath, palpitations. Patient is currently maintained on losartan 25 mg daily, metoprolol tartrate 50 mg TID. Eliquis remains on hold. Patient endorsed some chest pain yesterday and repeat ekg revealed sinus rhythm HR 67, T wave inversion in lead V2 and V3, previous EKGs with similar findings, Troponin negative x 3 and CK-MB was negative PHYSICAL EXAM: VITAL SIGNS: Reviewed. GENERAL: Well-developed in no acute distress. HEENT: Neck supple. No JVD LUNGS: Respirations even and unlabored. Lungs essentially clear to auscultation bilaterally. HEART: Irregular rate and rhythm. S1 and S2 heard. Systolic murmur noted. ABDOMEN: Soft. Nondistended. Nontender. EXTREMITIES: Normal range of motion. No clubbing or cyanosis. Peripheral puls es intact. No lower extremity edema NEUROLOGIC: Awake and alert. Oriented x 3. ASSESSMENT: Non-sustained ventricular tachycardia, asymptomatic Altered mental status, improved Dark colored stools, rule out GI bleed Acute kidney injury Hypokalemia, improving Paroxysmal atrial fibrillation, on Eliquis outpatient Nonobstructive coronary artery disease Non-ischemic cardiomyopathy, ejection fraction 35-40% Hypertension Hyperlipidemia PLAN: -Increase metoprolol tartrate 100mg BID -Continue losartan to 25mg daily -Continue cardiac telemetry -Ok to restart Eliquis per surgery -Further recommendations based on clinical course Nurse practitioner note has been reviewed by physician. Signing provider agrees with the documented findings, assessment, and plan of care. Objective - Vital Signs Vital signs: Vital Signs Temp 98.1 F 05/11/21 07:23 Pulse 88 05/11/21 07:23 Resp 16 05/11/21 07:23 BP 152/69 05/11/21 07:23 Pulse Ox 99 05/11/21 07:23 Intake & Output 05/10/21 05/11/21 05/11/21 18:59 06:59 18:59 Intake Total 600 Balance 600 Intake: Oral 600 Other: Voiding Method Toilet Toilet # Voids 2 - Labs CBC & Chem 7: 05/11/21 06:07 05/11/21 06:07 Labs: Abnormal Lab Results - Last 24 Hours (Table) 05/11/21 05/11/21 Range/Units 06:07 06:07 RBC 2.52 L (3.80-5.40) m/uL Hgb 8.0 L (11.4-16.0) gm/dL Hct 25.6 L (34.0-46.0) % MCV 101.5 H (80.0-100.0) fL RDW 17.0 H (11.5-15.5) % Sodium 130 L (137-145) mmol/L Chloride 110 H (98-107) mmol/L Carbon Dioxide 19 L (22-30) mmol/L Calcium 7.6 L (8.4-10.2) mg/dL
--- NOTE | 2021-05-11 13:28 | P.PN ---
Subjective Progress Note Date: 05/11/21 CHIEF COMPLAINT: GI bleed HISTORY OF PRESENT ILLNESS: Patient had nonsustained V. tach during her EGD. E GD and colonoscopy were reported. Patient is continuing his to have episodes of nonsustained V. tach and is followed by cardiology. Patient denies any abdominal pain. Denies any nausea vomiting. He reports having bowel movements that are brown in color. She did have episode of diarrhea. Denies any black stool or blood in stool. Hemoglobin has dropped from 8.6-8.0. She is on a regular diet. Afebrile. WBC is 8.9 hemoglobin 8.0 platelets 349 sodium 130 creatinine 0.46 Mg 1.6 patient's Eliquis has been resumed. Patient seen and examined with Dr. atkins PHYSICAL EXAM: VITAL SIGNS: Reviewed. GENERAL: Well-developed in no acute distress. HEENT: No sclera icterus. Extraocular movements grossly intact. Moist buccal mucosa. Head is atraumatic, normocephalic. ABDOMEN: Soft. Nondistended. Nontender NEUROLOGIC: Alert and oriented. Cranial nerves II through XII grossly intact. ASSESSMENT: 1. Anemia with dark stools. EGD and colonoscopy had to be aborted due to episode of V. tach 2. History of GI bleed and peptic ulcer disease 3. History of ulcers at the anastomotic site of her Suzanna-en-Y surgery noted on EGDs in September and December [address] Beasley PLAN: -No plans for repeat endoscopies during this admission. Will eventually repeat endoscopies outpatient when patient is medically stable -Continue to monitor for any signs or symptoms of bleeding -Continue to monitor hemoglobin -Continue regular diet -Magnesium being replaced Physician Front Office Supervisor note has been reviewed by physician. Signing provider agrees with the documented findings, assessment, and plan of care. Objective - Vital Signs Vital signs: Vital Signs Temp 98.1 F 05/11/21 12:42 Pulse 70 05/11/21 12:42 Resp 17 05/11/21 12:42 BP 106/57 05/11/21 12:42 Pulse Ox 96 05/11/21 12:42 Intake & Output 05/10/21 05/11/21 05/11/21 18:59 06:59 18:59 Intake Total 600 Balance 600 Weight 72.575 kg Intake: Oral 600 Other: Voiding Method Toilet Toilet # Voids 2 - Labs CBC & Chem 7: 05/11/21 06:07 05/11/21 06:07 Labs: Abnormal Lab Results - Last 24 Hours (Table) 05/11/21 05/11/21 Range/Units 06:07 06:07 RBC 2.52 L (3.80-5.40) m/uL Hgb 8.0 L (11.4-16.0) gm/dL Hct 25.6 L (34.0-46.0) % MCV 101.5 H (80.0-100.0) fL RDW 17.0 H (11.5-15.5) % Sodium 130 L (137-145) mmol/L Chloride 110 H (98-107) mmol/L Carbon Dioxide 19 L (22-30) mmol/L Calcium 7.6 L (8.4-10.2) mg/dL
[2021-05-11] MEDS ORDERED: LOSARTAN 25 MG TAB PO SCH (21:00)
--- NOTE | 2021-05-11 23:46 | P.PN ---
Subjective Progress Note Date: 05/11/21 Patient is a 75-year-old female with a known history of paroxysmal atrial fibrillation on anticoagulation with Eliquis coronary artery disease with history of stent placement, chronic back pain and opiate use, GERD, history of GI bleed, hearing disorder/deafness, peptic ulcer disease, anxiety/depression and panic disorder and previous history of smoking was brought to the hospital by EMS due to altered mental status. Patient last well-known was yesterday and today morning she was found on the bed with altered mentation by her son around 8:30 AM. Patient wakes up by her name and going back to sleep. Could not provide any history at this time. Patient did not have any fever or chills recently. No recent nausea vomiting or diarrhea. Denies any complaints of pain does not appears to be in pain.. Patient reportedly has recently discontinued her chronic pain medication. Patient was found to be in feces upon admission. CT head showed is related atrophic and chronic small vessel ischemic changes without acute intracranial process seen at this time. Chest x-ray showed chronic changes without evidence for acute pulmonary disease. EKG showed sinus rhythm with first-degree AV block Urinalysis is negative for infection Laboratory data showed WBC 11.5 hemoglobin 12.0 MCV 100.3 platelets 330 Sodium 137 potassium 3.2 chloride 106 bicarb is 17 BUN 20 and creatinine 1.17 blood sugar is 104 Calcium 8.3 bilirubin level 1.3 AST 36 ALT 15 alk phos 122 albumin 2.9 and troponin less than 0.012 UDS is positive for opiates and oxycodone. Coronavirus PCR not detected. 05/04/2021 Patient is still confused a but more awake and alert today. Patient is moaning and involuntarily moving her hands. Could not provide any history. Able to respond with verbal stimuli but does not follow simple commands.. Patient has been afebrile. Able to tolerate pured diet and able to take her medications today. Currently requiring 3 L oxygen via nasal cannula and is IV hydration with normal saline at 75 cc/h. Patient was seen by neurology. WBC 14.9 hemoglobin 9.3 and platelets 272 Sodium 144 potassium 5.1 chloride 111 bicarb is 31.4 BUN 28.7 creatinine 1.7 Current medications reviewed. 05/05/2021 She is seen in follow-up in follow up this morning and continues to be confused and slightly improved from yesterday. Patient continues to be restless and answering questions but continues with confusion. Patient is reporting abdominal pain and per nursing staff, large dark stools noted and there was a drop in hemoglobin. General surgery consulted for possible endoscopic intervention. Psychiatry and neurology following as well. Patient to undergo EEG today. Sodium continues to be elevated and changing IV fluids to D5/.45 Ns and will repeat am labs. BP is elevated and will resume losartan as kidney functions improved. .. 05/06/2021 Patient is currently resting in bed. Mentation is much improved. Patient is awake alert and oriented x3. No complaints of chest pain or shortness of. Complaints of back pain and requesting narcotic pain medications. Otherwise patient has been afebrile. No headache or dizziness or lightheadedness. No complaints of nausea or vomiting or abdominal pain. Patient was seen by psychiatry. Patient was started on gabapentin. No other acute overnight issues. PT OT will be consulted. Laboratory data showed WBC came down to 8.67 hemoglobin 9.0 and platelets 249 Patient is scheduled for colonoscopy on Saturday. 05/07/2021 Patient is lying in the bed awake alert oriented x3. Complains of lower back pain and is being continued on Tylenol for pain management. Patient is also on gabapentin. Patient has been afebrile. Mentation is much improved now. No nausea vomiting or abdominal pain or diarrhea. Denied any dark-colored stools today. Patient is taking GoLYTELY for scheduled colonoscopy tomorrow Laboratory data showed WBC 7.1 hemoglobin 10.3 and platelets 296 Sodium 134 potassium 4.4 chloride 113 bicarb is 19 BUN 33 and creatinine 0.83 Neurology and general surgery is on board. 05/08/2021 Patient is seen and evaluated this morning lying in bed much more awake and alert 3 answering appropriately. No acute overnight issues noted. Per nursing staff patient is back to baseline and completely alert and oriented. Patient going down for prolonged EEG as neuro is following and patient is scheduled for EGD/colonoscopy with surgery today. Will await report. Hemoglobin is stable at 9.1. Patient is currently nothing by mouth for the procedure. Social work also following and patient is agreeable to rehab if needed and referrals have been placed. Will continue to follow with patient about discharge planning. PT/OT following. 05/09/2021 Patient is seen this morning much more awake and alert 3 currently sitting up in the chair. Cardiology now following as patient had episodes of V. tach while undergoing EGD and colonoscopy and endoscopic intervention was aborted. Patient was maintained on metoprolol 50 mg twice daily and have increased the dose. General surgery recommend outpatient follow-up with endoscopic intervention once medically stable. Psychiatry also following and recommending Effexor and will discuss further about adding new medications once more stable. Sodium is 131 today and patient was maintained on IV fluids which were discontinued and encouraged oral intake and will repeat labs. 05/10/2021 Patient is evaluated this morning and denies any further episodes of dark stools. Eliquis was on hold and will resume per surgery recommendations and will likely have outpatient endoscopic interventions once more stable. Discussed discharge planning and patient plans to go home with sister until feeling better to go home. Patient has been working with physical therapy and states she walked up and down the murillo again today. Hemoglobin stable at 8.6. Cardiology following and patient continued on metoprolol 50mg TID and will continue. Per nursing staff, continued PVCs on the tele and patient is asymptomatic of chest pain or palpitations. Sodium trending down and is 129 today. Will fluid restrict of 1200ml/day and repeat am labs. 05/11/2021 Patient is evaluated today and denies any further chest pain. Patient continues with poor oral intake and states she did eat breakfast today. Patient reports to having diarrhea today and magnesium is found to be 1.6 and will replace. Patient continues on metoprolol and adjustments being made with cardiology following closely. staff forester reports to continued PVCs noted on tele and continued runs of vtach and patien remains asymptomatic. Eliquis is resumed. 2D echo remains pending and will discuss with cardiology about treatment plan moving forward. Sodium slightly improved at 130 and will continue with fluid restrictions. Labs: WBC is 8.9, hgb is 8.0, plts 349, Sodium is 130, potassium 4.4, BUN is 13, creatinine 0.56, calcium is 7.6,magnesium is 1.6 Review of systems: Constitutional: No reports of fatigue, fevers, or chills Cardio: reports chest pain, denies palpitations REsp: No reports of shortness of breath or cough GI: no reports of nausea or vomiting, reports poor oral intake, and reports diarrhea today : no reports of dysuria or retention Neuro: No reports of weakness or numbness All medications have been reviewed Active Medications Acetaminophen (Acetaminophen Tab 325 Mg Tab) 650 mg PO Q6HR PRN PRN Reason: Fever and/ or Pain Last Admin: 05/11/21 11:11 Dose: 650 mg Documented by: Apixaban (Apixaban 5 Mg Tab) 5 mg PO BID [facility]; Protocol Last Admin: 05/11/21 20:22 Dose: 5 mg Documented by: Gabapentin (Gabapentin 100 Mg Cap) 300 mg PO TID [facility] Last Admin: 05/11/21 21:09 Dose: 300 mg Documented by: Levothyroxine Sodium (Levothyroxine 100 Mcg Tab) 200 mcg PO DAILY@0630 [facility] Last Admin: 05/11/21 06:04 Dose: 200 mcg Documented by: Losartan Potassium (Losartan 25 Mg Tab) 25 mg PO DAILY@1800 [facility] Metoprolol Tartrate (Metoprolol Tartrate 50 Mg Tab) 100 mg PO Q12H [facility] Last Admin: 05/11/21 15:31 Dose: 100 mg Documented by: Miscellaneous Information (Potassium Replacement Protocol 1 Each Misc) 1 each MISCELLANE DAILY PRN; Protocol PRN Reason: Per Protocol Miscellaneous Information (Magnesium Replacement Protocol 1 Each Misc) 1 each MISCELLANE DAILY PRN; Protocol PRN Reason: Per Protocol Naloxone HCl (Naloxone 0.4 Mg/Ml 1 Ml Vial) 0.2 mg IV Q2M PRN PRN Reason: Opioid Reversal Nitroglycerin (Nitroglycerin Oint 1 Inch/Gm Packet) 1 inch TOPICAL Q6HR [facility] Last Admin: 05/11/21 18:02 Dose: 1 inch Documented by: Pantoprazole Sodium (Pantoprazole 40 Mg/10 Ml Vial) 40 mg IVP BID [facility] Last Admin: 05/11/21 20:22 Dose: 40 mg Documented by: PHYSICAL EXAMINATION: Patient is lying in the bed awake alert and oriented 3. Not in any acute distress, well-developed, well-nourished.. HEENT: Normocephalic. Neck is supple. Pupils reactive. Nostrils clear. Oral cavity is moist. Neck reveals no JVD, carotid bruits, or thyromegaly. CHEST EXAMINATION: Trachea is central. Symmetrical expansion. Lung herrera clear to auscultation and percussion. CARDIAC: Normal S1, S2 with no gallops. No murmurs ABDOMEN: Soft. Bowel sounds normal. No organomegaly. No abdominal bruits. Non- tender on palpation Extremities: reveal no edema. No clubbing or cyanosis Neurologically awake, alert, oriented x3. No focal neurological deficits noted. Skin: No rash or skin lesions. Psychiatric: Alert and oriented 3, non-suicidal, cooperative Musculoskeletal: No joint swelling or deformity. Assessment: Altered mental status. Possible metabolic, toxic encephalopathy. improved now and patient is alert and oriented x 3 Delirium and involuntary upper and lower extremity movements. Resolved non-sustained ventricular tachycardia, asymptomatic non-ischemic cardiomyopathy, ef is 35-40% Acute kidney injury, improved Hypokalemia, improved Hyponatremia, most likely secondary to poor oral intake, sodium is 130 today possible acute GI bleed with dark stools and drop in hemoglobin, no active bl eeding noted and hemoglobin is stable at 8.0 today Chronic back pain and opiate use Paroxysmal atrial fibrillation on anticoagulation with Eliquis, resumed Coronary artery disease history of stent placement GERD History of GI bleed and peptic ulcer disease Anxiety/depression panic disorder Previous history of smoking DVT prophylaxis; Eliquis Plan: Patient will be continued on current medication regimen. Per nursing staff, continued PVCs and during exam patient denies chest pain, palpitations, or shortness of breath. Cardiology and general surgery and psychiatry following. Continued runs of vtach on telemetry and metoprolol being increased. Troponins are negative and ckmb negative as well. No further episodes of dark stools and hemoglobin is lower today although stable at 8.0. No plan for endoscopic intervention at this time and can follow up outpatient with surgery for this. Encourage oral intake. Sodium is 130 today and will continue with fluid restriction. Repeat labs ordered. Continue with supportive care and follow-up closely. Prognosis guarded. Possible discharge in 24 hours once cleared by cardiology. Discharge plan is for patient to go stay with her sister for a while. Patient to follow up with general surgery outpatient for EGD/colonoscopy once more stable. Objective - Vital Signs Vital signs: Vital Signs Temp 98.1 F 05/11/21 07:23 Pulse 88 05/11/21 07:23 Resp 16 05/11/21 07:23 BP 152/69 05/11/21 07:23 Pulse Ox 99 05/11/21 07:23 Intake & Output 05/10/21 05/11/21 05/11/21 18:59 06:59 18:59 Intake Total 600 Balance 600 Intake: Oral 600 Other: Voiding Method Toilet Toilet # Voids 2 - Labs CBC & Chem 7: 05/11/21 06:07 05/11/21 06:07 Labs: Abnormal Lab Results - Last 24 Hours (Table) 05/11/21 05/11/21 Range/Units 06:07 06:07 RBC 2.52 L (3.80-5.40) m/uL Hgb 8.0 L (11.4-16.0) gm/dL Hct 25.6 L (34.0-46.0) % MCV 101.5 H (80.0-100.0) fL RDW 17.0 H (11.5-15.5) % Sodium 130 L (137-145) mmol/L Chloride 110 H (98-107) mmol/L Carbon Dioxide 19 L (22-30) mmol/L Calcium 7.6 L (8.4-10.2) mg/dL
[2021-05-12] MEDS: ACETAMINOPHEN TAB 325 MG TAB PO PRN ×2 (02:32→08:33)
[2021-05-12 04:10] VITALS: TEMP 98.3
[2021-05-12] MEDS: LEVOTHYROXINE 100 MCG TAB PO SCH (06:04)
[2021-05-12] MEDS: NITROGLYCERIN OINT 1 INCH/GM PACKET TOPICAL SCH ×2 (06:04→12:16)
[2021-05-12] MEDS: METOPROLOL TARTRATE 50 MG TAB PO SCH (06:05)
[2021-05-12 07:24] LABS: African American GFR (CKD) >90 (>60 ml/min/1.73 sqM); Anion Gap 4 mmol/L; Blood Urea Nitrogen 11 mg/dL (7-17); Calcium 7.5 mg/dL (8.4-10.2); Carbon Dioxide 15 mmol/L (22-30); Chloride 110 mmol/L (98-107); Glucose 86 mg/dL (74-99); Non-African American GFR(CKD) >90 (>60 ml/min/1.73 sqM); Sodium 129 mmol/L (137-145)
[2021-05-12 07:31] LABS: Magnesium 1.8 mg/dL (1.6-2.3); Potassium 4.7 mmol/L (3.5-5.1)
[2021-05-12 07:58] LABS: Anisocytosis Slight; HGB 8.9 gm/dL (11.4-16.0); Hypochromasia Slight; MCH 30.7 pg (25.0-35.0); MCHC 31.7 g/dL (31.0-37.0); MCV 96.8 fL (80.0-100.0); Macrocytosis Slight; Mean Platelet Volume 8.8; Platelet Count 448 k/uL (150-450); RDW 17.9 % (11.5-15.5); WBC 7.7 k/uL (3.8-10.6)
[2021-05-12] MEDS: PANTOPRAZOLE 40 MG/10 ML VIAL IVP SCH (08:33)
[2021-05-12] MEDS: APIXABAN 5 MG TAB PO SCH (08:33)
[2021-05-12] MEDS: GABAPENTIN 100 MG CAP PO SCH (08:33)
[2021-05-12 09:02] LABS: Eosinophils # (M) 0.15 k/uL (0-0.7); Monocytes # (M) 0.31 k/uL (0-1.0); Neutrophils # (M) 5.24 k/uL (1.3-7.7); Neutrophils % (M) 68 %; Nucleated Red Blood Cells 0 /100 WBC (0-0); Total Cells Counted 100
--- NOTE | 2021-05-12 09:50 | P.PN ---
Subjective This is a 75-year-old female with a past medical history significant for nonobstructive CAD, paroxysmal atrial fibrillation on Eliquis, hypertension, hyperlipidemia, nonischemic cardiomyopathy, and diverticulitis with history of colectomy and colostomy placement and subsequent reversal of colostomy in October 2020. Patient has not been following in the office with a turbine technician. She was last seen in the office in 2012. We have been asked to see the patient in consultation for ventricular tachycardia. Patient presented to the hospital on 05/03/21 with alerted mental status and dark colored stools. She states she did have a syncopal episode. Her UA was positive for opiates and oxycodone. Patient was hydrated and had improvement in mental status. On 05/08/21, patient was scheduled for EGD, patient was given IV sedation, EGD was started and patient had a brief episode of non-sustained ventricular tachycardia on the monitor, no telemetry strips were available to review, EGD was cancelled. 05/12/21 Patient seen and examined at bedside, no acute distress. Telemetry reviewed, patient in sinus mechanism HR 60s-70s, she continues to have NSVT but improved, patient with 2 episodes overnight with longest 10beat run. Patient is asymptomatic. She denies any further diarrhea. Denies any bleeding in urine or stool. Patient maintained sinus mechanism. Patient denies any chest pain, shortness of breath, palpitations. Patient is currently maintained on losartan 25 mg daily, metoprolol tartrate 100mg BID, Eliquis 5mg BID. PHYSICAL EXAM: VITAL SIGNS: Reviewed. GENERAL: Well-developed in no acute distress. HEENT: Neck supple. No JVD LUNGS: Respirations even and unlabored. Lungs essentially clear to auscultation bilaterally. HEART: Irregular rate and rhythm. S1 and S2 heard. Systolic murmur noted. ABDOMEN: Soft. Nondistended. Nontender. EXTREMITIES: Normal range of motion. No clubbing or cyanosis. Peripheral pulses intact. No lower extremity edema NEUROLOGIC: Awake and alert. Oriented x 3. ASSESSMENT: Non-sustained ventricular tachycardia, asymptomatic Altered mental status, improved Dark colored stools, rule out GI bleed Acute kidney injury Hypokalemia, improving Paroxysmal atrial fibrillation, on Eliquis outpatient Nonobstructive coronary artery disease Non-ischemic cardiomyopathy, ejection fraction 35-40% Hypertension Hyperlipidemia PLAN: Patient's NSVT has improved. From a cardiology standpoint we will continue metoprolol tartrate 100mg BID, and losartan to 25mg daily. Continue Eliquis. Patient is stable to be discharged. Patient to follow up outpatient with Dr. Gramajo. Nurse practitioner note has been reviewed by physician. Signing provider agrees with the documented findings, assessment, and plan of care. Objective - Vital Signs Vital signs: Vital Signs Temp 98.3 F 05/12/21 04:08 Pulse 71 05/12/21 06:07 Resp 16 05/12/21 04:08 BP 97/57 05/12/21 06:07 Pulse Ox 94 L 05/12/21 04:08 Intake & Output 05/11/21 05/12/21 05/12/21 18:59 06:59 18:59 Intake Total 1080 400 Balance 1080 400 Weight 72.575 kg Intake: Intake, IV Titration 200 Amount Magnesium Sulfate-D5w Pmx 200 1 gm In Dextrose/Water 1 100ml.bag @ 100 mls/hr IVPB Q1H [facility] Rx#: [id number] Oral 880 400 Other: Voiding Method Toilet # Voids 3 2 # Bowel Movements 1 - Labs CBC & Chem 7: 05/12/21 06:41 05/12/21 06:41 Labs: Abnormal Lab Results - Last 24 Hours (Table) 05/12/21 05/12/21 Range/Units 06:41 06:41 RBC 2.90 L (3.80-5.40) m/uL Hgb 8.9 L (11.4-16.0) gm/dL Hct 28.0 L (34.0-46.0) % RDW 17.9 H (11.5-15.5) % Sodium 129 L (137-145) mmol/L Chloride 110 H (98-107) mmol/L Carbon Dioxide 15 L (22-30) mmol/L Calcium 7.5 L (8.4-10.2) mg/dL
[2021-05-12 12:03] LABS: Glucose,Whole Blood 143 mg/dL (75-99)
[2021-05-12 12:21] VITALS: BP 112/56; PULSE 67; RESP 15
--- NOTE | 2021-05-12 14:35 | P.PN ---
Subjective Progress Note Date: 05/12/21 CHIEF COMPLAINT: GI bleed HISTORY OF PRESENT ILLNESS: Patient had nonsustained V. tach during her EGD. E GD and colonoscopy were aborted. Patient is continuing his to have episodes of nonsustained V. tach and is followed by cardiology. Patient denies any abdominal pain. Denies any nausea vomiting. He reports having bowel movements that are brown in color. Hemoglobin stable at 8.9. Sodium 129 Patient seen and examined with Dr. atkins PHYSICAL EXAM: VITAL SIGNS: Reviewed. GENERAL: Well-developed in no acute distress. HEENT: No sclera icterus. Extraocular movements grossly intact. Moist buccal mucosa. Head is atraumatic, normocephalic. ABDOMEN: Soft. Nondistended. Nontender NEUROLOGIC: Alert and oriented. Cranial nerves II through XII grossly intact. ASSESSMENT: 1. Anemia with dark stools. EGD and colonoscopy had to be aborted due to episode of V. tach 2. History of GI bleed and peptic ulcer disease 3. History of ulcers at the anastomotic site of her Suzanna-en-Y surgery noted on EGDs in September and December [address] Beasley PLAN: -No plans for repeat endoscopies during this admission. Will eventually repeat endoscopies outpatient when patient is medically stable -Patient can be discharged from surgical standpoint when cleared medically -Continue to monitor for any signs or symptoms of bleeding -Continue regular diet Physician Filler Operator note has been reviewed by physician. Signing provider agrees with the documented findings, assessment, and plan of care. Objective - Vital Signs Vital signs: Vital Signs Temp 98.3 F 05/12/21 12:20 Pulse 67 05/12/21 12:20 Resp 15 05/12/21 12:20 BP 112/56 05/12/21 12:20 Pulse Ox 97 05/12/21 12:20 Intake & Output 05/11/21 05/12/21 05/12/21 18:59 06:59 18:59 Intake Total 1080 400 Balance 1080 400 Weight 72.575 kg Intake: Intake, IV Titration 200 Amount Magnesium Sulfate-D5w Pmx 200 1 gm In Dextrose/Water 1 100ml.bag @ 100 mls/hr IVPB Q1H [facility] Rx#: [id number] Oral 880 400 Other: Voiding Method Toilet # Voids 3 2 # Bowel Movements 1 - Labs CBC & Chem 7: 05/12/21 06:41 05/12/21 06:41 Labs: Abnormal Lab Results - Last 24 Hours (Table) 05/12/21 05/12/21 05/12/21 Range/Units 06:41 06:41 12:01 RBC 2.90 L (3.80-5.40) m/uL Hgb 8.9 L (11.4-16.0) gm/dL Hct 28.0 L (34.0-46.0) % RDW 17.9 H (11.5-15.5) % Sodium 129 L (137-145) mmol/L Chloride 110 H (98-107) mmol/L Carbon Dioxide 15 L (22-30) mmol/L POC Glucose (mg/dL) 143 H (75-99) mg/dL Calcium 7.5 L (8.4-10.2) mg/dL
[2021-05-12] MEDS ORDERED: LOSARTAN 25 MG TAB PO SCH (18:00)
== END 2021-05-12 16:05 | disposition home health service (06) | DRG 92 ==
LOC: EC 10:15 → 1SOBS 12:35 → 6NMEDSUR 12:39 → 5NMEDONC 21:06 → OBSVTOIN 05-05 12:07
PROVIDERS: ADMIT Internal Medicine; ATTEND Internal Medicine
PROC: 0DJ08ZZ Inspection of Upper Intestinal Tract, Via Natural or Artificial Opening Endoscopic (ICD-10-PCS; principal; 2021-05-08 07:30)
DX: G92.9 Unspecified toxic encephalopathy (principal); D62 Acute posthemorrhagic anemia; E87.0 Hyperosmolality and hypernatremia; E87.1 Hypo-osmolality and hyponatremia; F11.23 Opioid dependence with withdrawal; I42.8 Other cardiomyopathies; I47.2 Ventricular tachycardia; K92.2 Gastrointestinal hemorrhage, unspecified; N17.9 Acute kidney failure, unspecified; E78.5 Hyperlipidemia, unspecified; E87.6 Hypokalemia; F32.A Depression, unspecified; F41.0 Panic disorder [episodic paroxysmal anxiety]; G89.29 Other chronic pain; H91.90 Unspecified hearing loss, unspecified ear; I10 Essential (primary) hypertension; Z60.2 Problems related to living alone; I25.10 Atherosclerotic heart disease of native coronary artery without angina pectoris; I44.0 Atrioventricular block, first degree; I48.0 Paroxysmal atrial fibrillation; Z20.822 Contact with and (suspected) exposure to COVID-19; E03.9 Hypothyroidism, unspecified; I49.1 Atrial premature depolarization; K21.9 Gastro-esophageal reflux disease without esophagitis; Z53.09 Procedure and treatment not carried out because of other contraindication; Z79.01 Long term (current) use of anticoagulants; M54.9 Dorsalgia, unspecified; Z79.890 Hormone replacement therapy; Z79.899 Other long term (current) drug therapy; R45.1 Restlessness and agitation; H72.90 Unspecified perforation of tympanic membrane, unspecified ear; R51.9 Headache, unspecified; Z82.49 Family history of ischemic heart disease and other diseases of the circulatory system; Z83.3 Family history of diabetes mellitus; Z85.21 Personal history of malignant neoplasm of larynx; Z86.14 Personal history of Methicillin resistant Staphylococcus aureus infection; Z87.11 Personal history of peptic ulcer disease; Z87.828 Personal history of other (healed) physical injury and trauma; Z87.891 Personal history of nicotine dependence; Z90.49 Acquired absence of other specified parts of digestive tract; Z90.710 Acquired absence of both cervix and uterus; Z95.5 Presence of coronary angioplasty implant and graft; Z96.653 Presence of artificial knee joint, bilateral; Z98.84 Bariatric surgery status; Z98.890 Other specified postprocedural states; Z98.42 Cataract extraction status, left eye; Z80.9 Family history of malignant neoplasm, unspecified
CPT/HCPCS: 36415; 43235; 70450; 71045; 80048; 80053; 80143; 80179; 80306; 80320; 81003; 82553; 82607; 82747; 83735; 84132; 84443; 84484; 85025; 85027; 85610; 85730; 86140; 87635; 93005; 93306; 95713; 95816; 99285

== ENCOUNTER 2021-05-22 09:35 | Inpatient (IN) | payer MEDICARE ==
[2021-05-22] MEDS ORDERED: MORPHINE SULFATE 2 MG/ML SYRINGE IVP STA ×2 (12:19→18:30)
[2021-05-22] MEDS ORDERED: SODIUM CHLORIDE 0.9% 500 ML 500 ML IV STA (12:19)
[2021-05-22] MEDS ORDERED: ONDANSETRON 4 MG/2 ML VIAL IVP STA (12:19)
--- NOTE | 2021-05-22 12:27 | ED ---
General Adult HPI - General Chief complaint: Abdominal Pain Stated complaint: N/V/D Time Seen by Provider: 05/22/21 12:01 Source: patient Mode of arrival: wheelchair Limitations: no limitations - History of Present Illness Initial comments: This 75-year-old female with past medical history CAD with stent placement in 2004. GI bleed, bowel resection, cholecystectomy, hypertension, A. fib presents emergency Department with abdominal pain 1 day. Patient states yesterday morning she began to have a couple episodes of diarrhea around 9:00am and beginning a couple of hours later she began to have abdominal pain throughout her entire abdomen. Patient states she has also experienced 3 episodes of vomiting yesterday, however she has not vomited at all today. She states she does feel slightly nauseous. Patient states she does have a decreased appetite but has been able to keep down plenty of fluids. Patient states she had abdominal surgery for bowel resection by in April. Patient cannot locate one specific part of her abdomen is painful, she states it is just everywhere. Patient denies any chest pain, shortness of breath, change in vision, headache, change in bladder, neck pain, fever. - Related Data Home Medications Medication Instructions Recorded Confirmed Nitroglycerin Sl Tabs [Nitrostat] 0.4 mg SL Q5M PRN 04/15/21 05/22/21 Losartan [Cozaar] 25 mg PO DAILY 05/22/21 05/22/21 Multivitamins, Thera [Multivitamin 1 tab PO DAILY 05/22/21 05/22/21 (formulary)] Previous Rx's Medication Instructions Recorded Cholecalciferol [Vitamin D3 (25 25 mcg PO DAILY #30 tablet 03/21/21 Mcg = 1000 Iu)] Gabapentin [Neurontin] 300 mg PO TID #90 cap 05/12/21 Levothyroxine Sodium [Synthroid] 200 mcg PO DAILY #30 tab 05/12/21 Metoprolol Tartrate [Lopressor] 100 mg PO Q12H 30 Days #120 tab 05/12/21 Pantoprazole [Protonix] 40 mg PO DAILY #30 tab 05/12/21 Allergies Allergy/AdvReac Type Severity Reaction Status Date / Time latex Allergy Unknown Verified 05/22/21 16:02 vancomycin Allergy Rash/Hives Verified 05/22/21 16:02 Review of Systems ROS Statement: Those systems with pertinent positive or pertinent negative responses have been documented in the HPI. ROS Other: All systems not noted in ROS Statement are negative. Past Medical History Past Medical History: Atrial Fibrillation, Coronary Artery Disease (CAD), Cancer, Eye Disorder, GERD/Reflux, GI Bleed, Hearing Disorder / Deafness, Hypertension, Musculoskeletal Disorder, Osteoarthritis (OA), Thyroid Disorder Additional Past Medical History / Comment(s): Peptic ulcer, chronic back pain, laryngeal cancer/tx-approx 20 yrs ago, head injury in 2012, cataract removal left eye. Pt states she has a hole in her left eardrum. 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 SHOULDER Past Surgical History: Bariatric Surgery, Bowel Resection, Cholecystectomy, Heart Catheterization, Heart Catheterization With Stent, Hysterectomy, Joint Replacement, Orthopedic Surgery Additional Past Surgical History / Comment(s): 1 stent, Bilateral knee replacement, left shoulder rotator cuff surgery, gastric bypass, D&C w/ corrective surgery, EGD/colonoscopy, laryngeal tumor removed 30 radiation treatments about 20 years ago, Ganglion Cysts both wrists.PAIN CLINIC INJECTIONS , colostomy 06/2020 w/ reversal in August Past Anesthesia/Blood Transfusion Reactions: No Reported Reaction Date of Last Stent Placement:: 2003 Past Psychological History: Anxiety, Depression, Panic Disorder Smoking Status: Former smoker Past Alcohol Use History: None Reported Past Drug Use History: None Reported - Past Family History Mother Family Medical History: Cancer, Congestive Heart Failure (CHF), Diabetes Mellitus, Hypertension Additional Family Medical History / Comment(s): Mother passed at 93. Father Family Medical History: Myocardial Infarction (CO) Additional Family Medical History / Comment(s): Father of a CO at the age of 39 yrs. Sister(s) Family Medical History: Cancer Brother(s) Family Medical History: Cancer, Myocardial Infarction (CO) General Exam Limitations: no limitations General appearance: alert, in no apparent distress Head exam: Present: atraumatic, normocephalic, normal inspection Eye exam: Present: normal appearance, PERRL, EOMI ENT exam: Present: mucous membranes moist Neck exam: Present: full ROM Respiratory exam: Present: normal lung sounds bilaterally. Absent: respiratory distress, wheezes, rales, rhonchi, stridor Cardiovascular Exam: Present: regular rate, normal rhythm, normal heart sounds. Absent: systolic murmur, diastolic murmur, rubs, gallop, clicks GI/Abdominal exam: Present: soft, tenderness (Tender to palpation in all 4 quadrants), normal bowel sounds. Absent: distended, guarding, rebound, rigid Extremities exam: Present: full ROM. Absent: calf tenderness Back exam: Present: normal inspection, full ROM. Absent: tenderness, CVA tenderness (R), CVA tenderness (L), paraspinal tenderness, vertebral tenderness Neurological exam: Present: alert, oriented X3, CN II-XII intact Psychiatric exam: Present: normal affect, normal mood Skin exam: Present: warm, dry, intact, normal color. Absent: rash Course Vital Signs 05/22/21 05/22/21 05/22/21 10:06 17:42 20:00 Temperature 97.6 F 97.6 F Pulse Rate 79 76 87 Respiratory 18 18 18 Rate Blood Pressure 173/87 155/68 140/75 O2 Sat by Pulse 99 93 L 94 L Oximetry - Reevaluation(s) Reevaluation #1: 05/22/21 15:07 On reevaluation after fluids, pain medication, antiemetic, patient states she feels a lot better than when she first came in. She states her abdominal pain has significantly decreased and she is feeling a lot better and is no longer nauseous. Patient is stating she is hungry and is requesting a sandwich and water. Informed her I was going to wait for computed tomography scan of abdomen and pelvis to result before she can have food or water. EKG Findings - EKG Comments: EKG Findings:: EKG ventricular rate 78 bpm. QRS duration 159. QT/QTc 472/505. New Left Bundle-branch block compared to April EKG Medical Decision Making - Medical Decision Making This 75-year-old female sent to the emergency department with abdominal pain, nausea, vomiting since yesterday. EKG did show new left bundle branch block. Patient denies any chest pain. Labs unremarkable. Urine did show urinary checked infection. Patient started on Rocephin 1 g IV. Spoke with Kaelyn from Dr. Medina's group who agreed to admit patient to her services with and cardiology consultation. Patient admitted to the hospital and verbally agreed to plan. Case discussed with my attending, Dr. Lowery - Lab Data Result diagrams: 05/22/21 13:36 05/22/21 13:36 Lab Results 05/22/21 05/22/21 05/22/21 Range/Units 12:56 12:57 13:36 WBC 4.6 (3.8-10.6) k/uL RBC 3.24 L (3.80-5.40) m/uL Hgb 10.0 L (11.4-16.0) gm/dL Hct 30.8 L (34.0-46.0) % MCV 95.3 (80.0-100.0) fL MCH 30.8 (25.0-35.0) pg MCHC 32.3 (31.0-37.0) g/dL RDW 16.7 H (11.5-15.5) % Plt Count 360 (150-450) k/uL MPV 7.5 Neutrophils % 46 % Lymphocytes % 39 % Monocytes % 8 % Eosinophils % 2 % Basophils % 1 % Neutrophils # 2.1 (1.3-7.7) k/uL Lymphocytes # 1.8 (1.0-4.8) k/uL Monocytes # 0.4 (0-1.0) k/uL Eosinophils # 0.1 (0-0.7) k/uL Basophils # 0.1 (0-0.2) k/uL Hypochromasia Moderate Anisocytosis Slight PT (9.0-12.0) sec INR (<1.2) APTT (22.0-30.0) sec Sodium (137-145) mmol/L Potassium (3.5-5.1) mmol/L Chloride (98-107) mmol/L Carbon Dioxide (22-30) mmol/L Anion Gap mmol/L BUN (7-17) mg/dL Creatinine (0.52-1.04) mg/dL Est GFR (CKD-EPI)AfAm (>60 ml/min/1.73 sqM) Est GFR (CKD-EPI)NonAf (>60 ml/min/1.73 sqM) Glucose (74-99) mg/dL Plasma Lactic Acid Anthony (0.7-2.0) mmol/L Calcium (8.4-10.2) mg/dL Total Bilirubin (0.2-1.3) mg/dL AST (14-36) U/L ALT (4-34) U/L Alkaline Phosphatase (38-126) U/L Troponin I (0.000-0.034) ng/mL Total Protein (6.3-8.2) g/dL Albumin (3.5-5.0) g/dL Lipase (23-300) U/L Urine Color Yellow Urine Appearance Cloudy H (Clear) Urine pH 6.0 (5.0-8.0) Ur Specific [place] 1.024 (1.001-1.035) Urine Protein Trace H (Negative) Urine Glucose (UA) Negative (Negative) Urine Ketones Negative (Negative) Urine Blood Negative (Negative) Urine Nitrite Positive H (Negative) Urine Bilirubin Negative (Negative) Urine Urobilinogen 3.0 (<2.0) mg/dL Ur Leukocyte Esterase Small H (Negative) Urine RBC <1 (0-5) /hpf Urine WBC 7 H (0-5) /hpf Ur Squamous Epith Cells 14 H (0-4) /hpf Calcium Oxalate Crystal Few H (None) /hpf Urine Bacteria Moderate H (None) /hpf Urine Mucus Many H (None) /hpf Coronavirus (PCR) Not Detected (Not Detectd) 05/22/21 05/22/21 05/22/21 Range/Units 13:36 13:36 13:36 WBC (3.8-10.6) k/uL RBC (3.80-5.40) m/uL Hgb (11.4-16.0) gm/dL Hct (34.0-46.0) % MCV (80.0-100.0) fL MCH (25.0-35.0) pg MCHC (31.0-37.0) g/dL RDW (11.5-15.5) % Plt Count (150-450) k/uL MPV Neutrophils % % Lymphocytes % % Monocytes % % Eosinophils % % Basophils % % Neutrophils # (1.3-7.7) k/uL Lymphocytes # (1.0-4.8) k/uL Monocytes # (0-1.0) k/uL Eosinophils # (0-0.7) k/uL Basophils # (0-0.2) k/uL Hypochromasia Anisocytosis PT 12.9 H (9.0-12.0) sec INR 1.2 H (<1.2) APTT 22.0 (22.0-30.0) sec Sodium 132 L (137-145) mmol/L Potassium 3.7 (3.5-5.1) mmol/L Chloride 106 (98-107) mmol/L Carbon Dioxide 23 (22-30) mmol/L Anion Gap 3 mmol/L BUN 12 (7-17) mg/dL Creatinine 0.44 L (0.52-1.04) mg/dL Est GFR (CKD-EPI)AfAm >90 (>60 ml/min/1.73 sqM) Est GFR (CKD-EPI)NonAf >90 (>60 ml/min/1.73 sqM) Glucose 95 (74-99) mg/dL Plasma Lactic Acid Anthony 1.7 (0.7-2.0) mmol/L Calcium 8.2 L (8.4-10.2) mg/dL Total Bilirubin 1.1 (0.2-1.3) mg/dL AST 34 (14-36) U/L ALT 18 (4-34) U/L Alkaline Phosphatase 182 H (38-126) U/L Troponin I (0.000-0.034) ng/mL Total Protein 5.9 L (6.3-8.2) g/dL Albumin 2.4 L (3.5-5.0) g/dL Lipase 21 L (23-300) U/L Urine Color Urine Appearance (Clear) Urine pH (5.0-8.0) Ur Specific [place] (1.001-1.035) Urine Protein (Negative) Urine Glucose (UA) (Negative) Urine Ketones (Negative) Urine Blood (Negative) Urine Nitrite (Negative) Urine Bilirubin (Negative) Urine Urobilinogen (<2.0) mg/dL Ur Leukocyte Esterase (Negative) Urine RBC (0-5) /hpf Urine WBC (0-5) /hpf Ur Squamous Epith Cells (0-4) /hpf Calcium Oxalate Crystal (None) /hpf Urine Bacteria (None) /hpf Urine Mucus (None) /hpf Coronavirus (PCR) (Not Detectd) 05/22/21 Range/Units 13:36 WBC (3.8-10.6) k/uL RBC (3.80-5.40) m/uL Hgb (11.4-16.0) gm/dL Hct (34.0-46.0) % MCV (80.0-100.0) fL MCH (25.0-35.0) pg MCHC (31.0-37.0) g/dL RDW (11.5-15.5) % Plt Count (150-450) k/uL MPV Neutrophils % % Lymphocytes % % Monocytes % % Eosinophils % % Basophils % % Neutrophils # (1.3-7.7) k/uL Lymphocytes # (1.0-4.8) k/uL Monocytes # (0-1.0) k/uL Eosinophils # (0-0.7) k/uL Basophils # (0-0.2) k/uL Hypochromasia Anisocytosis PT (9.0-12.0) sec INR (<1.2) APTT (22.0-30.0) sec Sodium (137-145) mmol/L Potassium (3.5-5.1) mmol/L Chloride (98-107) mmol/L Carbon Dioxide (22-30) mmol/L Anion Gap mmol/L BUN (7-17) mg/dL Creatinine (0.52-1.04) mg/dL Est GFR (CKD-EPI)AfAm (>60 ml/min/1.73 sqM) Est GFR (CKD-EPI)NonAf (>60 ml/min/1.73 sqM) Glucose (74-99) mg/dL Plasma Lactic Acid Anthony (0.7-2.0) mmol/L Calcium (8.4-10.2) mg/dL Total Bilirubin (0.2-1.3) mg/dL AST (14-36) U/L ALT (4-34) U/L Alkaline Phosphatase (38-126) U/L Troponin I <0.012 (0.000-0.034) ng/mL Total Protein (6.3-8.2) g/dL Albumin (3.5-5.0) g/dL Lipase (23-300) U/L Urine Color Urine Appearance (Clear) Urine pH (5.0-8.0) Ur Specific [place] (1.001-1.035) Urine Protein (Negative) Urine Glucose (UA) (Negative) Urine Ketones (Negative) Urine Blood (Negative) Urine Nitrite (Negative) Urine Bilirubin (Negative) Urine Urobilinogen (<2.0) mg/dL Ur Leukocyte Esterase (Negative) Urine RBC (0-5) /hpf Urine WBC (0-5) /hpf Ur Squamous Epith Cells (0-4) /hpf Calcium Oxalate Crystal (None) /hpf Urine Bacteria (None) /hpf Urine Mucus (None) /hpf Coronavirus (PCR) (Not Detectd) Disposition Clinical Impression: Abdominal pain, Urinary tract infection, Left bundle branch block (LBBB) Disposition: ADMITTED IP TO THIS HOSP Condition: Serious Is patient prescribed a controlled substance at d/c from ED?: No Referrals: Joey Vladez MD [Primary Care Provider] - 1-2 days Time of Disposition: 19:05
[2021-05-22 13:34] LABS: Appearance,Urine Cloudy (Clear); Bacteria,Urine Moderate /hpf; Bilirubin,Urine Negative (Negative); Blood,Urine Negative (Negative); Calcium Oxalate Crystals,Urine Few /hpf; Color,Urine Yellow; Glucose,Urine (UA) Negative (Negative); Ketones,Urine Negative (Negative); Leukocyte Esterase,Urine Small (Negative); Mucus,Urine Many /hpf; Nitrite,Urine Positive (Negative); Protein,Urine Trace (Negative); RBC,Urine <1 /hpf (0-5); Specific Gravity,Urine 1.024 (1.001-1.035); Squamous Epithelial Cell,Urine 14 /hpf (0-4); WBC,Urine 7 /hpf (0-5)
[2021-05-22 13:58] LABS: Anisocytosis Slight; Basophils # (A) 0.1 k/uL (0-0.2); Basophils % (A) 1 %; Eosinophils # (A) 0.1 k/uL (0-0.7); Eosinophils % (A) 2 %; HCT 30.8 % (34.0-46.0); Hypochromasia Moderate; Lymphocytes # (A) 1.8 k/uL (1.0-4.8); Lymphocytes % (A) 39 %; MCH 30.8 pg (25.0-35.0); MCHC 32.3 g/dL (31.0-37.0); MCV 95.3 fL (80.0-100.0); Mean Platelet Volume 7.5; Monocytes # (A) 0.4 k/uL (0-1.0); Monocytes % (A) 8 %; Neutrophils # (A) 2.1 k/uL (1.3-7.7); Neutrophils % (A) 46 %; Platelet Count 360 k/uL (150-450); RBC 3.24 m/uL (3.80-5.40); RDW 16.7 % (11.5-15.5); WBC 4.6 k/uL (3.8-10.6)
[2021-05-22 14:12] LABS: ALT 18 U/L (4-34); AST 34 U/L (14-36); African American GFR (CKD) >90 (>60 ml/min/1.73 sqM); Albumin 2.4 g/dL (3.5-5.0); Alkaline Phosphatase 182 U/L (38-126); Anion Gap 3 mmol/L; Blood Urea Nitrogen 12 mg/dL (7-17); Calcium 8.2 mg/dL (8.4-10.2); Carbon Dioxide 23 mmol/L (22-30); Chloride 106 mmol/L (98-107); Glucose 95 mg/dL (74-99); Lipase 21 U/L (23-300); Non-African American GFR(CKD) >90 (>60 ml/min/1.73 sqM); Potassium 3.7 mmol/L (3.5-5.1); Sodium 132 mmol/L (137-145); Total Bilirubin 1.1 mg/dL (0.2-1.3); Total Protein 5.9 g/dL (6.3-8.2)
[2021-05-22 14:28] LABS: INR 1.2 (<1.2); Prothrombin Time 12.9 sec (9.0-12.0)
--- NOTE | 2021-05-22 18:49 | CT ---
EXAMINATION TYPE: CT abdomen pelvis w con DATE OF EXAM: 05/22/2021 COMPARISON: 04/16/2021 HISTORY: Abdominal pain. CT DLP: 822.6 mGycm Automated exposure control for dose reduction was used. CONTRAST: Performed with IV Contrast, patient injected with 100ml mL of Isovue 300. Images obtained from the diaphragm to the floor the pelvis with IV contrast. There is mild subsegmental atelectasis at the lung bases. Heart size is normal. There are some sanchez ry artery calcification. There are clips from cholecystectomy. Liver appears intact. The bile ducts are not dilated. Spleen is intact. There are multiple gastric surgical clips consistent with bariatric surgery. There is no mauricio dence of pancreatic mass. There is no adrenal mass. Kidneys show satisfactory contrast opacification. There is no hydronephrosi s. The ureters are not dilated. There is satisfactory excretion on the delayed images. There is no re troperitoneal adenopathy. Abdominal aorta is atheromatous. Bladder distends smoothly with contrast. T here is no inguinal hernia. There is no free fluid in the pelvis. There is no evidence of free air. There is no ascites. There is no sign of a bowel obstruction. There is previous surgery at the sigmoid colon. There is no mesenteric edema. Lumbar vertebra show a degenerative first-degree L4-5 spondylolisthesis . There is no lumbar compression fracture. There is moderate narrowing of the lumbar disc spaces. The re is a mild dextroscoliosis. The sacroiliac joints are intact. The hip joints appear intact. IMPRESSION: Atherosclerotic vascular disease. Previous bariatric surgery and sigmoid colon surgery. No evidence o f a bowel obstruction. No adverse change compared to the old exam. Scoliotic deformity with spinal stenosis and L4-5 spondylolisthesis. No change..
[2021-05-22] MEDS ORDERED: NALOXONE 0.4 MG/ML 1 ML VIAL IV PRN ×2 (19:01→20:47)
[2021-05-22] MEDS: SODIUM CHLORIDE 0.9% 1,000 ML IV SCH (19:53)
[2021-05-22] MEDS: MORPHINE SULFATE 2 MG/ML SYRINGE IV PRN (22:13)
[2021-05-23] MEDS: MORPHINE SULFATE 2 MG/ML SYRINGE IV PRN ×5 (01:35→20:53)
[2021-05-23] MEDS ORDERED: NITROGLYCERIN SL TABS 0.4 MG TAB SUBLINGUAL PRN (06:11)
[2021-05-23] MEDS: METOPROLOL TARTRATE 50 MG TAB PO SCH ×2 (06:56→18:32)
[2021-05-23] MEDS: LEVOTHYROXINE 100 MCG TAB PO SCH (06:56)
[2021-05-23] MEDS: CHOLECALCIFEROL 25 MCG (1000 IU) TABLET PO SCH (09:22)
[2021-05-23] MEDS: MULTIVITAMINS, THERA 1 EACH TAB PO SCH (09:22)
[2021-05-23] MEDS: LOSARTAN 25 MG TAB PO SCH (09:22)
[2021-05-23] MEDS: GABAPENTIN 100 MG CAP PO SCH ×3 (09:22→20:54)
[2021-05-23] MEDS: PANTOPRAZOLE 40 MG TABLET PO SCH (09:23)
[2021-05-23] MEDS: APIXABAN 5 MG TAB PO SCH ×2 (12:14→20:54)
[2021-05-23] MEDS: SODIUM CHLORIDE 0.9% 1,000 ML IV SCH (12:15)
--- NOTE | 2021-05-23 12:16 | P.CRDCN ---
History of Present Illness History of present illness: HISTORY OF PRESENT ILLNESS: This is a 75-year-old female with a past medical history significant for nonobstructive CAD, NSVT, paroxysmal atrial fibrillation (was on Eliquis unsure why it was stopped, was restarted last hospitalization on 05/11/2020), hypertension, hyperlipidemia, nonischemic cardiomyopathy, and diverticulitis with history of colectomy and colostomy placement and subsequent reversal of colostomy in October 2020. Patient has not been following in the office with a general education instructor. She was last seen in the office in 2012. We have been asked to see the patient in consultation for left bundle branch block. Patient presented to the hospital with complaints of abdominal pain and diarrhea. Her pain is located across her bilateral lower quadrants. Describes it as aching and constant. Started yesterday morning. She also had nausea and 4 episodes yellow emesis. She also describes having some left sided chest tenderness, aggravated by taking a deep breath and palpation to the chest. Pain is non-exertional, non-radiating. She denies any palpitations, lightheadedness, dizziness, syncope or near syncope. She denies symptoms of orthopnea, PND, lower extremity edema. She denies black or tarry stools. Denies any bleeding in urine or stool. Patient was recently admitted on 05/05/21-05/12/2021 with concerns for GI bleed. Endoscopies were cancelled due to patient having episodes of frequent NSVT. Cardiology evaluated the patient at that time. Patient was stabilized, her NSVT improved with medication adjustments. And surgery cleared patient to restart Eliquis. Eliquis was restarted on 05/11/21. However, patient states she was not taking it at home but is unsure why. DIAGNOSTICS -EKG reveals sinur rhythm, HR 78, first degree AV block, LBBB, no ST-T wave timo nges to suggest acute ischemia -Telemetry reviewed sinus first degree AV block, LBBB HR 90s -Laboratory data: WBC 4.6, hemoglobin 10.0, platelets 360, INR 1.2, troponin negative 3, sodium 132, potassium 3.7, BUN 12, serum creatinine 0.4, covid Negative -Current home cardiac medications include when necessary nitroglycerin, metoprolol titrate 100 mg twice a day, losartan 25 mg daily, Synthroid, g abapentin -03/15/21 Echo shows worsened EF 35-40% however mainly apical hypokineis with sparing of the base concerning for Takotsubo's cardiomyopathy. Cardiac catheterization history: -03/17/21- Mild non-obstructive CAD, 50% ostial of the first diag, mid and distal LAD mild disease only. -April 2020 revealing mild coronary artery disease. 30% mid LAD stenosis. Left circumflex with mild luminary irregularities. Mid RCA 30-40% stenosis. Ejection fraction at that time 45% with mild apical hypokinesis, questionable recovering Takotsubo cardiomyopathy. REVIEW OF SYSTEMS: At the time of my exam: CONSTITUTIONAL: Denies fever or chills. HEENT: Denies blurred vision, vision changes, or eye pain. Denies hemoptysis CARDIOVASCULAR: Denies chest pain. Denies orthopnea. Denies PND. Denies palpitations RESPIRATORY: Denies shortness of breath. GASTROINTESTINAL: Denies abdominal pain. Denies nausea or vomiting. HEMATOLOGIC: Denies bleeding disorders. GENITOURINARY: Denies any blood in urine. SKIN: Denies pruitis. Denies rash. PHYSICAL EXAM: VITAL SIGNS: Reviewed. GENERAL: Well-developed in no acute distress. HEENT: Head is normocephalic. Pupils are equal, round. Sclerae anicteric. Mucous membranes of the mouth are moist. Neck supple. No JVD or thyromegaly LUNGS: Respirations even and unlabored. Lungs essentially clear to auscultation bilaterally. HEART: Irregular rate and rhythm. S1 and S2 heard. Systolic murmur noted. ABDOMEN: Soft. Nondistended. Nontender. EXTREMITIES: Normal range of motion. No clubbing or cyanosis. Peripheral pulses intact. No lower extremity edema NEUROLOGIC: Awake and alert. Oriented x 3. ASSESSMENT: Abdominal pain, nausea, vomiting, diarrhea Left bundle branch block Chest pain, atypical, appears musculosketal in nature, troponin negative x 3 Paroxysmal atrial fibrillation, was on Eliquis restarted on 05/11/21 last admission ok to restart per surgery, but patient not taking after last admission at home Nonobstructive coronary artery disease Non-ischemic cardiomyopathy, ejection fraction 35-40% Hypertension Hyperlipidemia PLAN: Repeat 2D echocardiogram Restart Eliquis 5mg BID Continue losartan, metoprolol tartrate 100mg BID Continue Cardiac telemetry Further recommendations based on clinical course Nurse practitioner note has been reviewed by physician. Signing provider agrees with the documented findings, assessment, and plan of care. Past Medical History Past Medical History: Atrial Fibrillation, Coronary Artery Disease (CAD), Cancer, Eye Disorder, GERD/Reflux, GI Bleed, Hearing Disorder / Deafness, Hypertension, Osteoarthritis (OA), Thyroid Disorder Additional Past Medical History / Comment(s): Peptic ulcer, chronic back pain, laryngeal cancer/tx-approx 20 yrs ago, head injury in 2012, cataract removal left eye. Pt states she has a hole in her left eardrum. 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 SHOULDER Past Surgical History: Bariatric Surgery, Bowel Resection, Cholecystectomy, Heart Catheterization, Heart Catheterization With Stent, Hysterectomy, Joint Replacement, Orthopedic Surgery Additional Past Surgical History / Comment(s): 1 stent, Bilateral knee replacement, left shoulder rotator cuff surgery, gastric bypass, D&C w/ corrective surgery, EGD/colonoscopy, laryngeal tumor removed 30 radiation treatments about 20 years ago, Ganglion Cysts both wrists.PAIN CLINIC INJECTIONS, colostomy 06/2020 w/ reversal in August Past Anesthesia/Blood Transfusion Reactions: No Reported Reaction Date of Last Stent Placement:: 2003 Past Psychological History: Anxiety, Depression, Panic Disorder Additional Psychological History / Comment(s): pt lives alone in an apartment. Smoking Status: Former smoker Past Alcohol Use History: None Reported Additional Past Alcohol Use History / Comment(s): Pt started smoking in 1959 and quit in 1982, 1ppd. Past Drug Use History: None Reported - Past Family History Mother Family Medical History: Cancer, Congestive Heart Failure (CHF), Diabetes Mellitu s, Hypertension Additional Family Medical History / Comment(s): Mother passed at 93. Father Family Medical History: Myocardial Infarction ([place]) Additional Family Medical History / Comment(s): Father of a [place] at the age of 39 yrs. Sister(s) Family Medical History: Cancer Brother(s) Family Medical History: Cancer, Myocardial Infarction ([place]) Medications and Allergies Home Medications Medication Instructions Recorded Confirmed Type Cholecalciferol [Vitamin D3 (25 25 mcg PO DAILY #30 tablet 03/21/21 05/22/21 Rx Mcg = 1000 Iu)] Nitroglycerin Sl Tabs [Nitrostat] 0.4 mg SL Q5M PRN 04/15/21 05/22/21 History Gabapentin [Neurontin] 300 mg PO TID #90 cap 05/12/21 05/22/21 Rx Levothyroxine Sodium [Synthroid] 200 mcg PO DAILY #30 tab 05/12/21 05/22/21 Rx Metoprolol Tartrate [Lopressor] 100 mg PO Q12H 30 Days #120 tab 05/12/21 05/22/21 Rx Pantoprazole [Protonix] 40 mg PO DAILY #30 tab 05/12/21 05/22/21 Rx Losartan [Cozaar] 25 mg PO DAILY 05/22/21 05/22/21 History Multivitamins, Thera [Multivitamin 1 tab PO DAILY 05/22/21 05/22/21 History (formulary)] Allergies Allergy/AdvReac Type Severity Reaction Status Date / Time latex Allergy Unknown Verified 05/22/21 16:02 vancomycin Allergy Rash/Hives Verified 05/22/21 16:02 Physical Exam Vitals: Vital Signs Temp Pulse Pulse Resp BP BP Pulse Ox 05/23/21 02:28 74 16 141/52 95 05/22/21 23:27 76 16 138/47 96 05/22/21 23:10 98.3 F 90 19 163/79 96 05/22/21 20:00 97.6 F 87 18 140/75 94 L 05/22/21 17:42 76 18 155/68 93 L 05/22/21 10:06 97.6 F 79 18 173/87 99 Intake and Output 05/22/21 05/23/21 05/23/21 22:59 06:59 14:59 Intake Total 650 Balance 650 Intake: Intake, IV Titration 650 Amount Sodium Chloride 0.9% 1, 600 000 ml @ 75 mls/hr IV . [id number] [facility] Rx#:[id number] cefTRIAXone 1 gm In 50 Sodium Chloride 0.9% 50 ml @ 100 mls/hr IVPB Q24HR [facility] Rx#:[id number] Other: # Voids 1 Weight 62.95 kg Results 05/22/21 13:36 05/22/21 13:36 Cardiac Enzymes 05/22/21 05/22/21 05/22/21 Range/Units 13:36 13:36 21:22 AST 34 (14-36) U/L Troponin I <0.012 <0.012 (0.000-0.034) ng/mL 05/22/21 Range/Units 23:38 AST (14-36) U/L Troponin I <0.012 (0.000-0.034) ng/mL Coagulation 05/22/21 Range/Units 13:36 PT 12.9 H (9.0-12.0) sec APTT 22.0 (22.0-30.0) sec CBC 05/22/21 Range/Units 13:36 WBC 4.6 (3.8-10.6) k/uL RBC 3.24 L (3.80-5.40) m/uL Hgb 10.0 L (11.4-16.0) gm/dL Hct 30.8 L (34.0-46.0) % Plt Count 360 (150-450) k/uL Comprehensive Metabolic Panel 05/22/21 Range/Units 13:36 Sodium 132 L (137-145) mmol/L Potassium 3.7 (3.5-5.1) mmol/L Chloride 106 (98-107) mmol/L Carbon Dioxide 23 (22-30) mmol/L BUN 12 (7-17) mg/dL Creatinine 0.44 L (0.52-1.04) mg/dL Glucose 95 (74-99) mg/dL Calcium 8.2 L (8.4-10.2) mg/dL AST 34 (14-36) U/L ALT 18 (4-34) U/L Alkaline Phosphatase 182 H (38-126) U/L Total Protein 5.9 L (6.3-8.2) g/dL Albumin 2.4 L (3.5-5.0) g/dL Current Medications Generic Name Dose Route Start Last Admin Trade Name Freq PRN Reason Stop Dose Admin Cholecalciferol 25 mcg 05/23/21 09:00 Cholecalciferol 25 Mcg (1000 Iu) Tablet PO DAILY [facility] Gabapentin 300 mg 05/23/21 09:00 Gabapentin 100 Mg Cap PO TID [facility] Sodium Chloride 1,000 mls @ 75 mls/hr 05/22/21 19:15 05/22/21 19:53 Saline 0.9% IV 75 mls/hr .[id number] [facility] Administration Ceftriaxone Sodium 1 gm/ 50 mls @ 100 mls/hr 05/22/21 20:00 05/22/21 19:53 Sodium Chloride IVPB 100 mls/hr Q24HR [facility] Administration Levothyroxine Sodium 200 mcg 05/23/21 06:30 05/23/21 06:56 Levothyroxine 100 Mcg Tab PO 200 mcg DAILY@0630 [facility] Administration Losartan Potassium 25 mg 05/23/21 09:00 Losartan 25 Mg Tab PO DAILY [facility] Metoprolol Tartrate 100 mg 05/23/21 06:15 05/23/21 06:56 Metoprolol Tartrate 50 Mg Tab PO 100 mg Q12H [facility] Administration Morphine Sulfate 2 mg 05/22/21 19:15 05/23/21 06:56 Morphine Sulfate 2 Mg/Ml Syringe IV 2 mg Q4HR PRN Administration Severe Pain Multivitamins 1 each 05/23/21 09:00 Multivitamins, Thera 1 Each Tab PO DAILY [facility] Naloxone HCl 0.2 mg 05/22/21 19:01 Naloxone 0.4 Mg/Ml 1 Ml Vial IV Q2M PRN Opioid Reversal Nitroglycerin 0.4 mg 05/23/21 06:11 Nitroglycerin Sl Tabs 0.4 Mg Tab SUBLINGUAL Q5M PRN Chest Pain Ondansetron HCl 4 mg 05/22/21 19:15 Ondansetron 4 Mg/2 Ml Vial IVP Q8HR PRN Nausea And Vomiting Pantoprazole Sodium 40 mg 05/23/21 09:00 Pantoprazole 40 Mg Tablet PO DAILY [facility] Intake and Output 05/22/21 05/23/21 05/23/21 22:59 06:59 14:59 Intake Total 650 Balance 650 Intake: Intake, IV Titration 650 Amount Sodium Chloride 0.9% 1, 600 000 ml @ 75 mls/hr IV . [id number] [facility] Rx#:[id number] cefTRIAXone 1 gm In 50 Sodium Chloride 0.9% 50 ml @ 100 mls/hr IVPB Q24HR [facility] Rx#:[id number] Other: # Voids 1 Weight 62.95 kg 05/22/21 13:36 05/22/21 13:36
--- NOTE | 2021-05-23 13:00 | ECHOF ---
Referral Reason:repeat to evaluate LV function valve, LBBB MEASUREMENTS -------- HEIGHT: 162.6 cm WEIGHT: 62.6 kg BP: IVSd: 1.2 cm (0.6 - 1.1) LVIDd: 4.1 cm (3.9 - 5.3) LVPWd: 0.9 cm (0.6 - 1.1) IVSs: 1.6 cm LVIDs: 2.5 cm LVPWs: 1.6 cm LAESV Index (A-L): 33.81 ml/m Ao Diam: 3.1 cm (2.0 - 3.7) AV Cusp: 1.7 cm (1.5 - 2.6) LA Diam: 1.8 cm (2.7 - 3.8) MV EXCURSION: 19.436 mm (> 18.000) MV EF SLOPE: 91 mm/s (70 - 150) EPSS: 1.3 cm MV E Trent: 1.15 m/s MV DecT: 186 ms MV A Trent: 1.26 m/s MV E/A Ratio: 0.92 AR PHT: 667 ms RAP: 5.00 mmHg RVSP: 44.48 mmHg FINDINGS -------- Sinus rhythm. Left Bundle Branch Block This was a technically adequate study. The left ventricular size is normal. There is mild concentric left ventricular hypertrophy. Overa ll left ventricular systolic function is mild-moderately impaired with, an EF between 40 - 45 %. In creased LAP Grade 2 Diastolic Dysfunction. Mid anterior LV wall motion is hypokinetic. Apical an terior LV wall motion is hypokinetic. Apical lateral LV wall motion is hypokinetic. Apical sept um LV wall motion is hypokinetic. The right ventricle is normal in size. LA is midly dilated 29-33ml/m2. The right atrial size is normal. Aortic valve is trileaflet and is mildly thickened. There is mild aortic regurgitation. Mild mitral annular calcification present. Mild mitral regurgitation is present. The tricuspid valve appears structurally normal. Mild tricuspid regurgitation present. There is m ild pulmonary hypertension. The right ventricular systolic pressure, as measured by Doppler, is 44. 48mmHg. There is no pulmonic regurgitation present. The aortic root size is normal. Normal inferior vena cava with normal inspiratory collapse consistent with estimated right atrial pre ssure of 5 mmHg. Echo free space indicative of a pericardial fat pad. CONCLUSIONS -------- 1. Left Bundle Branch Block 2. There is mild concentric left ventricular hypertrophy. 3. Overall left ventricular systolic function is mild-moderately impaired with, an EF between 40 - 45 %. 4. Increased LAP Grade 2 Diastolic Dysfunction. 5. Mid anterior LV wall motion is hypokinetic. 6. Apical anterior LV wall motion is hypokinetic. 7. Apical lateral LV wall motion is hypokinetic. 8. Apical septum LV wall motion is hypokinetic. 9. LA is midly dilated 29-33ml/m2. 10. Aortic valve is trileaflet and is mildly thickened. 11. There is mild aortic regurgitation. 12. Mild mitral regurgitation is present. 13. Mild tricuspid regurgitation present. 14. There is mild pulmonary hypertension. 15. Echo free space indicative of a pericardial fat pad. LEAF FAT SCRAPER: Jaclyn Jones RDCS
--- NOTE | 2021-05-23 14:04 | P.GSCN ---
History of Present Illness Consult date: 05/23/21 History of present illness: CHIEF COMPLAINT: Abdominal pain HISTORY OF PRESENT ILLNESS: This is a 75-year-old female who has known chronic abdominal pain. Patient presents to the hospital with complaints of severe mid abdominal pain. Patient reports that the pain is located where her chronic pain is however it became very severe yesterday. She was having nausea vomiting and diarrhea. She reports that her pain is better today. She's had only one episode of loose stool this morning and it was just a small amount. There is no blood or black stools noted. She was hospitalized at the end of April and had a EGD and colonoscopy that were supposed to be performed on May 08 however during the procedure patient went into ventricular tachycardia and the procedure was aborted. Patient has a history of atrial fibrillation has been off of her Eliquis. Also has surgical history of sigmoid colectomy with colostomy and then reversal, gastric bypass, cholecystectomy and hysterectomy. Patient had a computed tomography scan of the abdomen and pelvis completed with oral and IV contrast on admission which was essentially normal. She is afebrile white count is normal. Patient being evaluated by cardiology for new left bundle branch block Patient seen and examined with Dr. atkins PAST MEDICAL HISTORY: See list. PAST SURGICAL HISTORY: See list. MEDICATIONS: See list. ALLERGIES: See list. SOCIAL HISTORY: No illicit drug use. REVIEW OF SYSTEMS: CONSTITUTIONAL: Denies fever or chills. HEENT: Denies blurred vision, vision changes, or eye pain. Denies hemoptysis CARDIOVASCULAR: Denies chest pain or pressure. RESPIRATORY: No shortness of breath. GASTROINTESTINAL: See HPI for pertinent findings HEMATOLOGIC: Denies bleeding disorders. GENITOURINARY: Denies any blood in urine or increased urinary frequency. SKIN: Denies pruitis. Denies rash. PHYSICAL EXAM: VITAL SIGNS: Reviewed GENERAL: Well-developed in no acute distress. HEENT: No sclera icterus. Extraocular movements grossly intact. Moist buccal mucosa. Head is atraumatic, normocephalic. No nasal drainage. ABDOMEN: Soft. Nondistended. Tenderness with palpation of mid abdomen along old surgical line. Old incision site healed nicely. Clean dry and intact. NEUROLOGIC: Alert and oriented. Cranial nerves II through XII grossly intact. LABORATORY DATA: WBC 4.6 hemoglobin 10 platelets 360 INR 1.2 Sodium 132 potassium 3.7 creatinine 0.44 Lactic acid 1.7 LFTs normal Troponin negative 3 Lipase 21 COVID-19 not detected IMAGING: Computed tomography scan abdomen and pelvis atherosclerotic vascular disease. Previous bariatric surgery and sigmoid colon surgery. No evidence for bowel obstruction. No adverse change compared to old exam. Sclerotic deformity with spinal stenosis and L4 to L5 spinal listhesis. No change ASSESSMENT: 1. Chronic abdominal pain 2. Nausea vomiting and diarrhea PLAN: -No surgical intervention planned -Continue supportive care -Continue heart healthy diet Thank you for this consultation Physician Heart Doctor note has been reviewed by physician. Signing provider agrees with the documented findings, assessment, and plan of care. Past Medical History Past Medical History: Atrial Fibrillation, Coronary Artery Disease (CAD), Cancer, Eye Disorder, GERD/Reflux, GI Bleed, Hearing Disorder / Deafness, Hypertension, Osteoarthritis (OA), Thyroid Disorder Additional Past Medical History / Comment(s): Peptic ulcer, chronic back pain, laryngeal cancer/tx-approx 20 yrs ago, head injury in 2012, cataract removal left eye. Pt states she has a hole in her left eardrum. 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 Past Surgical History: Bariatric Surgery, Bowel Resection, Cholecystectomy, Heart Catheterization, Heart Catheterization With Stent, Hysterectomy, Joint Replacement, Orthopedic Surgery Additional Past Surgical History / Comment(s): 1 stent, Bilateral knee replacement, left shoulder rotator cuff surgery, gastric bypass, D&C w/ corrective surgery, EGD/colonoscopy, laryngeal tumor removed 30 radiation treatments about 20 years ago, Ganglion Cysts both wrists.PAIN CLINIC INJECTIONS, colostomy 06/2020 w/ reversal in August Past Anesthesia/Blood Transfusion Reactions: No Reported Reaction Date of Last Stent Placement:: 2003 Past Psychological History: Anxiety, Depression, Panic Disorder Additional Psychological History / Comment(s): pt lives alone in an apartment. Smoking Status: Former smoker Past Alcohol Use History: None Reported Additional Past Alcohol Use History / Comment(s): Pt started smoking in 1959 and quit in 1982, 1ppd. Past Drug Use History: None Reported - Past Family History Mother Family Medical History: Cancer, Congestive Heart Failure (CHF), Diabetes Mellitus, Hypertension Additional Family Medical History / Comment(s): Mother passed at 93. Father Family Medical History: Myocardial Infarction ([place]) Additional Family Medical History / Comment(s): Father of a [place] at the age of 39 yrs. Sister(s) Family Medical History: Cancer Brother(s) Family Medical History: Cancer, Myocardial Infarction ([place]) Medications and Allergies Home Medications Medication Instructions Recorded Confirmed Type Cholecalciferol [Vitamin D3 (25 25 mcg PO DAILY #30 tablet 03/21/21 05/22/21 Rx Mcg = 1000 Iu)] Nitroglycerin Sl Tabs [Nitrostat] 0.4 mg SL Q5M PRN 04/15/21 05/22/21 History Gabapentin [Neurontin] 300 mg PO TID #90 cap 05/12/21 05/22/21 Rx Levothyroxine Sodium [Synthroid] 200 mcg PO DAILY #30 tab 05/12/21 05/22/21 Rx Metoprolol Tartrate [Lopressor] 100 mg PO Q12H 30 Days #120 tab 05/12/21 05/22/21 Rx Pantoprazole [Protonix] 40 mg PO DAILY #30 tab 05/12/21 05/22/21 Rx Losartan [Cozaar] 25 mg PO DAILY 05/22/21 05/22/21 History Multivitamins, Thera [Multivitamin 1 tab PO DAILY 05/22/21 05/22/21 History (formulary)] Allergies Allergy/AdvReac Type Severity Reaction Status Date / Time latex Allergy Unknown Verified 05/22/21 16:02 vancomycin Allergy Rash/Hives Verified 05/22/21 16:02 Surgical - Exam Vital Signs Temp Pulse Resp BP Pulse Ox 97.6 F 79 18 173/87 99 05/22/21 10:06 05/22/21 10:06 05/22/21 10:06 05/22/21 10:06 05/22/21 10:06 Results - Labs 05/22/21 13:36 05/22/21 13:36 Abnormal Lab Results - Last 24 Hours (Table) 05/22/21 05/22/21 05/22/21 Range/Units 13:36 13:36 13:36 RBC 3.24 L (3.80-5.40) m/uL Hgb 10.0 L (11.4-16.0) gm/dL Hct 30.8 L (34.0-46.0) % RDW 16.7 H (11.5-15.5) % PT 12.9 H (9.0-12.0) sec INR 1.2 H (<1.2) Sodium 132 L (137-145) mmol/L Creatinine 0.44 L (0.52-1.04) mg/dL Calcium 8.2 L (8.4-10.2) mg/dL Alkaline Phosphatase 182 H (38-126) U/L Total Protein 5.9 L (6.3-8.2) g/dL Albumin 2.4 L (3.5-5.0) g/dL Lipase 21 L (23-300) U/L Diabetes panel 05/22/21 Range/Units 13:36 Sodium 132 L (137-145) mmol/L Potassium 3.7 (3.5-5.1) mmol/L Chloride 106 (98-107) mmol/L Carbon Dioxide 23 (22-30) mmol/L BUN 12 (7-17) mg/dL Creatinine 0.44 L (0.52-1.04) mg/dL Glucose 95 (74-99) mg/dL Calcium 8.2 L (8.4-10.2) mg/dL AST 34 (14-36) U/L ALT 18 (4-34) U/L Alkaline Phosphatase 182 H (38-126) U/L Total Protein 5.9 L (6.3-8.2) g/dL Albumin 2.4 L (3.5-5.0) g/dL Calcium panel 05/22/21 Range/Units 13:36 Calcium 8.2 L (8.4-10.2) mg/dL Albumin 2.4 L (3.5-5.0) g/dL Pituitary panel 05/22/21 Range/Units 13:36 Sodium 132 L (137-145) mmol/L Potassium 3.7 (3.5-5.1) mmol/L Chloride 106 (98-107) mmol/L Carbon Dioxide 23 (22-30) mmol/L BUN 12 (7-17) mg/dL Creatinine 0.44 L (0.52-1.04) mg/dL Glucose 95 (74-99) mg/dL Calcium 8.2 L (8.4-10.2) mg/dL Adrenal panel 05/22/21 Range/Units 13:36 Sodium 132 L (137-145) mmol/L Potassium 3.7 (3.5-5.1) mmol/L Chloride 106 (98-107) mmol/L Carbon Dioxide 23 (22-30) mmol/L BUN 12 (7-17) mg/dL Creatinine 0.44 L (0.52-1.04) mg/dL Glucose 95 (74-99) mg/dL Calcium 8.2 L (8.4-10.2) mg/dL Total Bilirubin 1.1 (0.2-1.3) mg/dL AST 34 (14-36) U/L ALT 18 (4-34) U/L Alkaline Phosphatase 182 H (38-126) U/L Total Protein 5.9 L (6.3-8.2) g/dL Albumin 2.4 L (3.5-5.0) g/dL
[2021-05-23] MEDS: ACETAMINOPHEN TAB 325 MG TAB PO PRN (20:56)
--- NOTE | 2021-05-23 22:14 | P.HPIM ---
History of Present Illness H&P Date: 05/23/21 Chief Complaint: Abdominal pain Patient is a 75-year-old female with a known history of paroxysmal atrial fibrillation on anticoagulation with Eliquis, coronary artery disease with history of stent placement, GERD, hypertension, chronic back pain, laryngeal cancer status post treatment 20 years ago, osteoarthritis, hearing disorder/deafness and hypothyroidism and previous history of smoking, anxiety/depression and panic disorder and other multiple medical problems presen ts to ER with complaints of diarrhea and abdominal pain mainly lower half and also experiencing 3 episodes of vomiting. Patient felt nauseous. She is also having decreased appetite. Patient presents to ER. Denied any complaints of chest pain or shortness breath. Does have nausea and episodes of vomiting. No headache or dizziness or lightheadedness. Denies any dysuria or hematuria. Denies any hematemesis or melena. Patient has been afebrile on admission. Pulse ox 99% on room air. On admission CT of the abdomen pelvis was done which showed intrasclerotic vascular disease. Previous bariatric surgery and sigmoid colon surgery. No evidence of bowel obstruction. No adverse change compared to old exam. Scoliotic deformity with spinal stenosis L4-L5 spondylosis. No change. EKG showed left axis deviation and left bundle branch block. And atrial fibrillation with heart rate 78. Laboratory showed WBC 4.6 hemoglobin 10.0 and platelets 360 Sodium 132 potassium 3.7 chloride 106 bicarb is 23 BUN 12 and creatinine 0.44 calcium 8.2 albumin 2.4 and lipase level is 21 Urinalysis is cloudy nitrite positive and small leukoesterase with elevated WBCs and RBCs less than 1. COVID-19 PCR not detected. Patient was recently admitted to the hospital due to altered mental status/encephalopathy and suspected due to narcotic pain medications use. Neurological work-up has been negative. Patient was also complaining of blood in the stools. Patient was prepped for colonoscopy but procedure was aborted due to tachyarrhythmia. Seen by cardiology and was started on metoprolol. Patient is also on Eliquis for paroxysmal atrial fibrillation. Patient did improve clinically and was discharged home with home care. Review of Systems Constitutional: Patient denies any fever or chills . No generalized weakness or weight loss. Abdomen: Patient complains of nausea vomiting and diarrhea and abdominal pain. No hematemesis or melena.. Cardiovascular: Patient denies any chest pain or short of breath no palpitations. Respiratory: patient denied any cough or sputum production. No shortness of breath Neurologic: Patient denied any numbness or tingling headache. Musculoskeletal: Patient denies any complaints of joint swelling or deformity. Skin: Negative Psychiatric: Negative Endocrine: No heat or cold intolerance. No recent weight gain. Genitourinary: No dysuria or hematuria. All other 14 point ROS negative except the above Past Medical History Past Medical History: Atrial Fibrillation, Coronary Artery Disease (CAD), Cancer, Eye Disorder, GERD/Reflux, GI Bleed, Hearing Disorder / Deafness, Hypertension, Osteoarthritis (OA), Thyroid Disorder Additional Past Medical History / Comment(s): Peptic ulcer, chronic back pain, laryngeal cancer/tx-approx 20 yrs ago, head injury in 2012, cataract removal left eye. Pt states she has a hole in her left eardrum. 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 SHOULDER Past Surgical History: Bariatric Surgery, Bowel Resection, Cholecystectomy, Heart Catheterization, Heart Catheterization With Stent, Hysterectomy, Joint Replacement, Orthopedic Surgery Additional Past Surgical History / Comment(s): 1 stent, Bilateral knee replacement, left shoulder rotator cuff surgery, gastric bypass, D&C w/ corrective surgery, EGD/colonoscopy, laryngeal tumor removed 30 radiation treatments about 20 years ago, Ganglion Cysts both wrists.PAIN CLINIC INJECTIONS, colostomy 06/2020 w/ reversal in August Past Anesthesia/Blood Transfusion Reactions: No Reported Reaction Date of Last Stent Placement:: 2003 Past Psychological History: Anxiety, Depression, Panic Disorder Additional Psychological History / Comment(s): pt lives alone in an apartment. Smoking Status: Former smoker Past Alcohol Use History: None Reported Additional Past Alcohol Use History / Comment(s): Pt started smoking in 1959 and quit in 1982, 1ppd. Past Drug Use History: None Reported - Past Family History Mother Family Medical History: Cancer, Congestive Heart Failure (CHF), Diabetes Mellitus, Hypertension Additional Family Medical History / Comment(s): Mother passed at 93. Father Family Medical History: Myocardial Infarction (ME) Additional Family Medical History / Comment(s): Father of a ME at the age of 39 yrs. Sister(s) Family Medical History: Cancer Brother(s) Family Medical History: Cancer, Myocardial Infarction (ME) Medications and Allergies Home Medications Medication Instructions Recorded Confirmed Type Cholecalciferol [Vitamin D3 (25 25 mcg PO DAILY #30 tablet 03/21/21 05/22/21 Rx Mcg = 1000 Iu)] Nitroglycerin Sl Tabs [Nitrostat] 0.4 mg SL Q5M PRN 04/15/21 05/22/21 History Gabapentin [Neurontin] 300 mg PO TID #90 cap 05/12/21 05/22/21 Rx Levothyroxine Sodium [Synthroid] 200 mcg PO DAILY #30 tab 05/12/21 05/22/21 Rx Metoprolol Tartrate [Lopressor] 100 mg PO Q12H 30 Days #120 tab 05/12/21 05/22/21 Rx Pantoprazole [Protonix] 40 mg PO DAILY #30 tab 05/12/21 05/22/21 Rx Losartan [Cozaar] 25 mg PO DAILY 05/22/21 05/22/21 History Multivitamins, Thera [Multivitamin 1 tab PO DAILY 05/22/21 05/22/21 History (formulary)] Allergies Allergy/AdvReac Type Severity Reaction Status Date / Time latex Allergy Unknown Verified 05/22/21 16:02 vancomycin Allergy Rash/Hives Verified 05/22/21 16:02 Physical Exam Vitals: Vital Signs Temp Pulse Pulse Resp BP BP Pulse Ox 05/23/21 07:44 98.0 F 72 20 147/78 98 05/23/21 02:28 74 16 141/52 95 05/22/21 23:27 76 16 138/47 96 05/22/21 23:10 98.3 F 90 19 163/79 96 05/22/21 20:00 97.6 F 87 18 140/75 94 L 05/22/21 17:42 76 18 155/68 93 L 05/22/21 10:06 97.6 F 79 18 173/87 99 Intake and Output 05/22/21 05/23/21 05/23/21 22:59 06:59 14:59 Intake Total 650 237 Balance 650 237 Intake: Intake, IV Titration 650 Amount Sodium Chloride 0.9% 1, 600 000 ml @ 75 mls/hr IV . [id number] [facility] Rx#:[id number] 1 gm In 50 Sodium Chloride 0.9% 50 ml @ 100 mls/hr IVPB Q24HR [facility] Rx#:[id number] Oral 237 Other: # Voids 1 1 Weight 62.95 kg 62.95 kg PHYSICAL EXAMINATION: Patient is lying in the bed comfortably, no acute distress, awake alert and oriented.. HEENT: Normocephalic. Neck is supple. Pupils reactive. Nostrils clear. Oral cavity is moist. Neck reveals no JVD, carotid bruits, or thyromegaly. CHEST EXAMINATION: Trachea is central. Symmetrical expansion. Lung herrera clear to auscultation and percussion. CARDIAC: Normal S1, S2 with no gallops. No murmurs ABDOMEN: Soft.Abdominal tenderness. Mainly mid and lower abdominal. No guarding or rigidity. Bowel sounds normal. No organomegaly. No abdominal bruits. Extremities: reveal no edema. No clubbing or cyanosis Neurologically awake, alert, oriented x3 with well-coordinated movements. No focal deficits noted Skin: No rash or skin lesions. Psychiatric: Cooperative. Nonsuicidal Musculoskeletal: No joint swelling or deformity. Normal range of motion. Results CBC & Chem 7: 05/22/21 13:36 05/22/21 13:36 Labs: Abnormal Lab Results - Last 24 Hours (Table) 05/22/21 05/22/21 05/22/21 Range/Units 12:56 13:36 13:36 RBC 3.24 L (3.80-5.40) m/uL Hgb 10.0 L (11.4-16.0) gm/dL Hct 30.8 L (34.0-46.0) % RDW 16.7 H (11.5-15.5) % PT 12.9 H (9.0-12.0) sec INR 1.2 H (<1.2) Sodium (137-145) mmol/L Creatinine (0.52-1.04) mg/dL Calcium (8.4-10.2) mg/dL Alkaline Phosphatase (38-126) U/L Total Protein (6.3-8.2) g/dL Albumin (3.5-5.0) g/dL Lipase (23-300) U/L Urine Appearance Cloudy H (Clear) Urine Protein Trace H (Negative) Urine Nitrite Positive H (Negative) Ur Leukocyte Esterase Small H (Negative) Urine WBC 7 H (0-5) /hpf Ur Squamous Epith Cells 14 H (0-4) /hpf Calcium Oxalate Crystal Few H (None) /hpf Urine Bacteria Moderate H (None) /hpf Urine Mucus Many H (None) /hpf 05/22/21 Range/Units 13:36 RBC (3.80-5.40) m/uL Hgb (11.4-16.0) gm/dL Hct (34.0-46.0) % RDW (11.5-15.5) % PT (9.0-12.0) sec INR (<1.2) Sodium 132 L (137-145) mmol/L Creatinine 0.44 L (0.52-1.04) mg/dL Calcium 8.2 L (8.4-10.2) mg/dL Alkaline Phosphatase 182 H (38-126) U/L Total Protein 5.9 L (6.3-8.2) g/dL Albumin 2.4 L (3.5-5.0) g/dL Lipase 21 L (23-300) U/L Urine Appearance (Clear) Urine Protein (Negative) Urine Nitrite (Negative) Ur Leukocyte Esterase (Negative) Urine WBC (0-5) /hpf Ur Squamous Epith Cells (0-4) /hpf Calcium Oxalate Crystal (None) /hpf Urine Bacteria (None) /hpf Urine Mucus (None) /hpf Thrombosis Risk Factor Assmnt - DVT/VTE Prophylaxis DVT/VTE Prophylaxis: Pharmacologic Prophylaxis ordered - Choose All That Apply Any of the Below Risk Factors Present?: No Other Risk Factors: Yes Each Risk Factor Represents 3 Points: Age 75 years or older Thrombosis Risk Factor Assessment Total Risk Factor Score: 3 Thrombosis Risk Factor Assessment Level: Moderate Risk Assessment and Plan Assessment: Intractable nausea and vomiting and diarrhea. Abdominal pain- acute on chronic. CT of the abdomen pelvis showed no acute process Atypical chest pain. Ruled out ACS. Troponin x3 -. Acute urinary tract infection Left bundle branch block Paroxysmal atrial fibrillation on anticoagulation with Eliquis. Nonischemic cardiomyopathy ejection fraction 35 to 40% History of bowel resection and bariatric surgery Hypertension Hyperlipidemia GI and DVT prophylaxis patient is already on Eliquis Plan: Patient will be continued symptomatic management for nausea and vomiting. Continue with IV hydration. General surgery was consulted. CT of the abdomen pelvis showed no acute process at this time. Continue with antibiotics in the form of ceftriaxone for acute urinary tract infection follow-up urine culture report. C. difficile toxin will be sent to the patient continues to have diarrhea. Cardiology was consulted due to left bundle branch block. Repeat 2D ech ocardiogram is ordered. Continue with metoprolol losartan and Eliquis. Continue telemetry monitoring. Follow-up CBC and BMP tomorrow. Monitor H&H.. Time with Patient: Greater than 30
[2021-05-24] MEDS: MORPHINE SULFATE 2 MG/ML SYRINGE IV PRN ×5 (00:25→20:59)
[2021-05-24] MEDS: SODIUM CHLORIDE 0.9% 1,000 ML IV SCH ×2 (04:00→11:09)
[2021-05-24] MEDS: METOPROLOL TARTRATE 50 MG TAB PO SCH ×2 (07:07→17:04)
[2021-05-24] MEDS: LEVOTHYROXINE 100 MCG TAB PO SCH (07:07)
[2021-05-24 08:49] LABS: African American GFR (CKD) >90 (>60 ml/min/1.73 sqM); Anion Gap 5 mmol/L; Blood Urea Nitrogen 9 mg/dL (7-17); Calcium 7.8 mg/dL (8.4-10.2); Carbon Dioxide 19 mmol/L (22-30); Chloride 109 mmol/L (98-107); Glucose 95 mg/dL (74-99); Magnesium 1.5 mg/dL (1.6-2.3); Non-African American GFR(CKD) >90 (>60 ml/min/1.73 sqM); Potassium 3.7 mmol/L (3.5-5.1); Sodium 133 mmol/L (137-145)
[2021-05-24 08:51] LABS: Anisocytosis Slight; HGB 9.5 gm/dL (11.4-16.0); Hypochromasia Marked; MCH 29.8 pg (25.0-35.0); MCHC 29.7 g/dL (31.0-37.0); Macrocytosis Slight; Mean Platelet Volume 7.5; Platelet Count 322 k/uL (150-450); RBC 3.18 m/uL (3.80-5.40); WBC 4.3 k/uL (3.8-10.6)
[2021-05-24 08:56] LABS: MCV 100.4 fL (80.0-100.0)
[2021-05-24] MEDS: APIXABAN 5 MG TAB PO SCH ×2 (09:03→20:59)
[2021-05-24] MEDS: MULTIVITAMINS, THERA 1 EACH TAB PO SCH (09:03)
[2021-05-24] MEDS: PANTOPRAZOLE 40 MG TABLET PO SCH (09:03)
[2021-05-24] MEDS: LOSARTAN 25 MG TAB PO SCH (09:04)
[2021-05-24] MEDS: CHOLECALCIFEROL 25 MCG (1000 IU) TABLET PO SCH (09:04)
[2021-05-24] MEDS: GABAPENTIN 100 MG CAP PO SCH ×3 (09:04→20:59)
[2021-05-24] MEDS ORDERED: Magnesium Replacement Protocol 1 EACH MISC MISCELLANE PRN (11:18)
[2021-05-24] MEDS: MAGNESIUM SULFATE-D5W PMX 1 GM in DEXTROSE/WATER 1 100ML.BAG IVPB SCH ×2 (12:00→13:00)
--- NOTE | 2021-05-24 12:19 | P.PN ---
Subjective Progress Note Date: 05/24/21 CHIEF COMPLAINT: Abdominal pain HISTORY OF PRESENT ILLNESS: Patient still complaining of mid to left lower quadrant abdominal pain. She did have a temp of 100.1 last night. Denies any nausea or vomiting. Tolerating regular diet. Patient reports having bowel movements. She denies any blood or black stools. WBC 4.3 Patient seen and examined with Dr. atkins PHYSICAL EXAM: VITAL SIGNS: Reviewed. GENERAL: Well-developed in no acute distress. HEENT: No sclera icterus. Extraocular movements grossly intact. Moist buccal mucosa. Head is atraumatic, normocephalic. ABDOMEN: Soft. Nondistended. Tenderness to palpation of left lower quadrant and mid abdomen. NEUROLOGIC: Alert and oriented. Cranial nerves II through XII grossly intact. ASSESSMENT: 1. Chronic abdominal pain PLAN: -No surgical intervention planned -Continue supportive care -Continue regular Physician Access Liaison note has been reviewed by physician. Signing provider agrees with the documented findings, assessment, and plan of care. Objective - Vital Signs Vital signs: Vital Signs Temp 98.6 F 05/24/21 11:08 Pulse 72 05/24/21 11:08 Resp 18 05/24/21 11:08 BP 136/68 05/24/21 11:08 Pulse Ox 98 05/24/21 11:08 Intake & Output 05/23/21 05/24/21 05/24/21 18:59 06:59 18:59 Intake Total 717 240 230 Output Total 220 600 Balance 497 -360 230 Weight 62.95 kg Intake: Oral 717 240 230 Output: Urine 220 600 Other: Voiding Method Toilet Toilet # Voids 1 - Labs CBC & Chem 7: 05/24/21 07:35 05/24/21 07:35 Labs: Abnormal Lab Results - Last 24 Hours (Table) 05/24/21 05/24/21 Range/Units 07:35 07:35 RBC 3.18 L (3.80-5.40) m/uL Hgb 9.5 L (11.4-16.0) gm/dL Hct 32.0 L (34.0-46.0) % MCV 100.4 H D (80.0-100.0) fL MCHC 29.7 L (31.0-37.0) g/dL RDW 17.0 H (11.5-15.5) % Sodium 133 L (137-145) mmol/L Chloride 109 H (98-107) mmol/L Carbon Dioxide 19 L (22-30) mmol/L Creatinine 0.45 L (0.52-1.04) mg/dL Calcium 7.8 L (8.4-10.2) mg/dL Magnesium 1.5 L (1.6-2.3) mg/dL Microbiology - Last 24 Hours (Table) 05/23/21 10:20 Urine Culture - Preliminary Urine,Clean Catch
--- NOTE | 2021-05-24 12:24 | P.PN ---
Subjective Patient is a 75-year-old female with a known history of paroxysmal atrial fibrillation on anticoagulation with Eliquis, coronary artery disease with history of stent placement, GERD, hypertension, chronic back pain, laryngeal cancer status post treatment 20 years ago, osteoarthritis, hearing disorder/deafness and hypothyroidism and previous history of smoking, anxiety/depression and panic disorder and other multiple medical problems presents to ER with complaints of diarrhea and abdominal pain mainly lower half and also experiencing 3 episodes of vomiting. Patient felt nauseous. She is also having decreased appetite. Patient presents to ER. Denied any complaints of chest pain or shortness breath. Does have nausea and episodes of vomiting. No headache or dizziness or lightheadedness. Denies any dysuria or hematuria. Denies any hematemesis or melena. Patient has been afebrile on admission. Pulse ox 99% on room air. On admission CT of the abdomen pelvis was done which showed intrasclerotic vascular disease. Previous bariatric surgery and sigmoid colon surgery. No evidence of bowel obstruction. No adverse change compared to old exam. Scoliotic deformity with spinal stenosis L4-L5 spondylosis. No change. EKG showed left axis deviation and left bundle branch block. And atrial fibrillation with heart rate 78. Laboratory showed WBC 4.6 hemoglobin 10.0 and platelets 360 Sodium 132 potassium 3.7 chloride 106 bicarb is 23 BUN 12 and creatinine 0.44 calcium 8.2 albumin 2.4 and lipase level is 21 Urinalysis is cloudy nitrite positive and small leukoesterase with elevated WBCs and RBCs less than 1. COVID-19 PCR not detected. Patient was recently admitted to the hospital due to altered mental status/encephalopathy and suspected due to narcotic pain medications use. Neurological work-up has been negative. Patient was also complaining of blood in the stools. Patient was prepped for colonoscopy but procedure was aborted due to tachyarrhythmia. Seen by cardiology and was started on metoprolol. Patient is also on Eliquis for paroxysmal atrial fibrillation. Patient did improve clinically and was discharged home with home care. Subjective: I'm resume the care of the patient on 05/24/2021 This is a pleasant 75 years old female with multiple hospitalization, now presents with intractable nausea vomiting and abdominal pain with diarrhea suspicious for gastroenteritis also with some evidence of acute urinary tract infection. Also she had some fever yesterday of 100.1. Currently she is covered with ceftriaxone and Flagyl area stool studies and see this percent. Urine culture is pending. Also wildlife forensic geneticist on the case for her left bundle branch block and A. fib and currently she is on Eliquis 5 mg recommended by wildlife forensic geneticist, patient informed and she agrees to continue with it. Patient is eating 25% of her diet and discussed with bed side nurse to put her on liquid diet Objective - Vital Signs Vital signs: Vital Signs Temp 98.7 F 05/24/21 07:00 Pulse 80 05/24/21 07:00 Resp 18 05/24/21 07:00 BP 130/80 05/24/21 07:00 Pulse Ox 95 05/24/21 07:00 Intake & Output 05/23/21 05/24/21 05/24/21 18:59 06:59 18:59 Intake Total 717 240 Output Total 220 600 Balance 497 -360 Weight 62.95 kg Intake: Oral 717 240 Output: Urine 220 600 Other: Voiding Method Toilet Toilet # Voids 1 - Exam GENERAL: The patient is alert and oriented x3, not in any acute distress. Well developed, well nourished. HEENT: Pupils are round and equally reacting to light. EOMI. No scleral icterus. No conjunctival pallor. Normocephalic, atraumatic. No pharyngeal erythema. No thyromegaly. CARDIOVASCULAR: S1 and S2 present. No murmurs, rubs, or gallops. PULMONARY: Chest is clear to auscultation, no wheezing or crackles. - ABDOMEN: Soft, periumbilical tenderness with no rebound tenderness with little guarding, nondistended, normoactive bowel sounds. No palpable organomegaly. MUSCULOSKELETAL: No joint swelling or deformity. EXTREMITIES: No cyanosis, clubbing, or pedal edema. NEUROLOGICAL: Gross neurological examination did not reveal any focal deficits. SKIN: No rashes. no petechiae. - Labs CBC & Chem 7: 05/24/21 07:35 05/24/21 07:35 Labs: Abnormal Lab Results - Last 24 Hours (Table) 05/24/21 05/24/21 Range/Units 07:35 07:35 RBC 3.18 L (3.80-5.40) m/uL Hgb 9.5 L (11.4-16.0) gm/dL Hct 32.0 L (34.0-46.0) % MCV 100.4 H D (80.0-100.0) fL MCHC 29.7 L (31.0-37.0) g/dL RDW 17.0 H (11.5-15.5) % Sodium 133 L (137-145) mmol/L Chloride 109 H (98-107) mmol/L Carbon Dioxide 19 L (22-30) mmol/L Creatinine 0.45 L (0.52-1.04) mg/dL Calcium 7.8 L (8.4-10.2) mg/dL Magnesium 1.5 L (1.6-2.3) mg/dL Microbiology - Last 24 Hours (Table) 05/23/21 10:20 Urine Culture - Preliminary Urine,Clean Catch Assessment and Plan Assessment: Mostly infectious versus reactive gastroenteritis, with Intractable nausea and v omiting and diarrhea. Acute urinary tract infection Abdominal pain- acute on chronic. CT of the abdomen pelvis showed no acute process Atypical chest pain. Ruled out ACS. Troponin x3 Left bundle branch block Paroxysmal atrial fibrillation on anticoagulation with Eliquis. Nonischemic cardiomyopathy ejection fraction 35 to 40% History of bowel resection and bariatric surgery Hypertension Hyperlipidemia GI and DVT prophylaxis patient is already on Eliquis Plan: This is a pleasant 75 years old female who presents with UTI/gastroenteritis and left bundle-branch block. Continue with normal saline 75 mm/h, continue with ceftriaxone and Flagyl, follow-up urine and stool studies. Case and the recommended Eliquis for A. fib and patient agrees. Labs and medication were reviewed.. Continue same treatment. Continue with symptomatic treatment. Resume home medication. Monitor lytes and vitals. DVT and GI prophylaxis. Further recommendationsas per clinical course of the patient DVT prophylaxis: Eliquis GI Prophylaxis: Ppi PT/OT: Pending Prognosis is guarded
[2021-05-24 13:39] LABS: Eosinophils # (M) 0.04 k/uL (0-0.7); Monocytes # (M) 0.39 k/uL (0-1.0); Neutrophils # (M) 2.67 k/uL (1.3-7.7); Neutrophils % (M) 62 %; Nucleated Red Blood Cells 0 /100 WBC (0-0); Total Cells Counted 100
--- NOTE | 2021-05-24 13:51 | P.PN ---
Subjective This is a 75-year-old female with a past medical history significant for nonobstructive CAD, NSVT, paroxysmal atrial fibrillation (was on Eliquis unsure why it was stopped, was restarted last hospitalization on 05/11/2020), hypertension, hyperlipidemia, nonischemic cardiomyopathy, and diverticulitis with history of colectomy and colostomy placement and subsequent reversal of colostomy in October 2020. Patient has not been following in the office with a stock house worker. She was last seen in the office in 2012. We have been asked to see the patient in consultation for left bundle branch block. Patient presented to the hospital with complaints of abdominal pain and diarrhea. Her pain is located across her bilateral lower quadrants. Describes it as aching and constant. Started yesterday morning. She also had nausea and 4 episodes yellow emesis. She also describes having some left sided chest tenderness, aggravated by taking a deep breath and palpation to the chest. Pain is non-exertional, non-radiating. She denies any palpitations, lightheadedness, dizziness, syncope or near syncope. She denies symptoms of orthopnea, PND, lower extremity edema. She denies black or tarry stools. Denies any bleeding in urine or stool. Patient was recently admitted on 05/05/21-05/12/2021 with concerns for GI bleed. Endoscopies were cancelled due to patient having episodes of frequent NSVT. Cardiology evaluated the patient at that time. Patient was stabilized, her NSVT improved with medication adjustments. And surgery cleared patient to restart Eliquis. Eliquis was restarted on 05/11/21. However, patient states she was not taking it at home but is unsure why. DIAGNOSTICS -03/15/21 Echo shows worsened EF 35-40% however mainly apical hypokineis with spa ring of the base concerning for Takotsubo's cardiomyopathy. -Repeat echocardiogram this admission revealed an EF of 4045%, increased grade 2 diastolic dysfunction, apical hypokinesis, mild mitral regurgitation, tricuspid regurgitation 05/24/2021 Patient seen and examined at bedside no acute distress. Continues to have abdominal pain. No chest pain currently. Blood pressure 136/68, heart rate 72, afebrile, oxygen saturation 98% on room air. Labs reviewed, troponin negative x 3. PHYSICAL EXAM: VITAL SIGNS: Reviewed. GENERAL: Well-developed in no acute distress. HEENT: Neck supple. No JVD LUNGS: Respirations even and unlabored. Lungs essentially clear to auscultation bilaterally. HEART: Irregular rate and rhythm. S1 and S2 heard. Systolic murmur noted. ABDOMEN: Soft. Nondistended.Tenderness to bilateral lower quadrants EXTREMITIES: Normal range of motion. No clubbing or cyanosis. Peripheral pulses intact. No lower extremity edema NEUROLOGIC: Awake and alert. Oriented x 3. ASSESSMENT: Abdominal pain, nausea, vomiting, diarrhea Left bundle branch block Chest pain, atypical, appears musculosketal in nature, troponin negative x 3 Paroxysmal atrial fibrillation, was on Eliquis restarted on 05/11/21 last admission ok to restart per surgery, but patient not taking after last admission at home Nonobstructive coronary artery disease Non-ischemic cardiomyopathy, with improvement in EF 40-45% Hypertension Hyperlipidemia PLAN: Repeat 2D echocardiogram revealed improvement in LV function to 40-45% from March 2021 Continue Eliquis 5mg BID Continue losartan, metoprolol tartrate 100mg BID Continue Cardiac telemetry Further recommendations based on clinical course Nurse practitioner note has been reviewed by physician. Signing provider agrees with the documented findings, assessment, and plan of care. Objective - Vital Signs Vital signs: Vital Signs Temp 98.6 F 05/24/21 11:08 Pulse 72 05/24/21 11:08 Resp 18 05/24/21 11:08 BP 136/68 05/24/21 11:08 Pulse Ox 98 05/24/21 11:08 Intake & Output 05/23/21 05/24/21 05/24/21 18:59 06:59 18:59 Intake Total 717 240 230 Output Total 220 600 Balance 497 -360 230 Weight 62.95 kg Intake: Oral 717 240 230 Output: Urine 220 600 Other: Voiding Method Toilet Toilet # Voids 1 - Labs CBC & Chem 7: 05/24/21 07:35 05/24/21 07:35 Labs: Abnormal Lab Results - Last 24 Hours (Table) 05/24/21 05/24/21 Range/Units 07:35 07:35 RBC 3.18 L (3.80-5.40) m/uL Hgb 9.5 L (11.4-16.0) gm/dL Hct 32.0 L (34.0-46.0) % MCV 100.4 H D (80.0-100.0) fL MCHC 29.7 L (31.0-37.0) g/dL RDW 17.0 H (11.5-15.5) % Sodium 133 L (137-145) mmol/L Chloride 109 H (98-107) mmol/L Carbon Dioxide 19 L (22-30) mmol/L Creatinine 0.45 L (0.52-1.04) mg/dL Calcium 7.8 L (8.4-10.2) mg/dL Magnesium 1.5 L (1.6-2.3) mg/dL Microbiology - Last 24 Hours (Table) 05/23/21 10:20 Urine Culture - Preliminary Urine,Clean Catch
[2021-05-24] MEDS: metroNIDAZOLE-NS PMX 500 MG in SALINE 1 100ML.BAG IVPB SCH ×2 (16:00→22:49)
[2021-05-25] MEDS: MORPHINE SULFATE 2 MG/ML SYRINGE IV PRN ×6 (01:00→20:24)
[2021-05-25] MEDS: SODIUM CHLORIDE 0.9% 1,000 ML IV SCH ×4 (01:00→12:00)
[2021-05-25] MEDS: LEVOTHYROXINE 100 MCG TAB PO SCH (05:18)
[2021-05-25] MEDS: METOPROLOL TARTRATE 50 MG TAB PO SCH ×2 (05:34→16:10)
[2021-05-25] MEDS: PANTOPRAZOLE 40 MG TABLET PO SCH (08:48)
[2021-05-25] MEDS: LOSARTAN 25 MG TAB PO SCH (08:48)
[2021-05-25] MEDS: GABAPENTIN 100 MG CAP PO SCH ×3 (08:48→21:51)
[2021-05-25] MEDS: MULTIVITAMINS, THERA 1 EACH TAB PO SCH (08:48)
[2021-05-25] MEDS: CHOLECALCIFEROL 25 MCG (1000 IU) TABLET PO SCH (08:48)
[2021-05-25] MEDS: APIXABAN 5 MG TAB PO SCH ×2 (08:48→21:51)
[2021-05-25] MEDS: metroNIDAZOLE-NS PMX 500 MG in SALINE 1 100ML.BAG IVPB SCH ×2 (08:49→16:11)
--- NOTE | 2021-05-25 10:17 | P.PN ---
Subjective Patient is a 75-year-old female with a known history of paroxysmal atrial fibrillation on anticoagulation with Eliquis, coronary artery disease with history of stent placement, GERD, hypertension, chronic back pain, laryngeal cancer status post treatment 20 years ago, osteoarthritis, hearing disorder/deafness and hypothyroidism and previous history of smoking, anxiety/depression and panic disorder and other multiple medical problems presents to ER with complaints of diarrhea and abdominal pain mainly lower half and also experiencing 3 episodes of vomiting. Patient felt nauseous. She is also having decreased appetite. Patient presents to ER. Denied any complaints of chest pain or shortness breath. Does have nausea and episodes of vomiting. No headache or dizziness or lightheadedness. Denies any dysuria or hematuria. Denies any hematemesis or melena. Patient has been afebrile on admission. Pulse ox 99% on room air. On admission CT of the abdomen pelvis was done which showed intrasclerotic vascular disease. Previous bariatric surgery and sigmoid colon surgery. No evidence of bowel obstruction. No adverse change compared to old exam. Scoliotic deformity with spinal stenosis L4-L5 spondylosis. No change. EKG showed left axis deviation and left bundle branch block. And atrial fibrillation with heart rate 78. Laboratory showed WBC 4.6 hemoglobin 10.0 and platelets 360 Sodium 132 potassium 3.7 chloride 106 bicarb is 23 BUN 12 and creatinine 0.44 calcium 8.2 albumin 2.4 and lipase level is 21 Urinalysis is cloudy nitrite positive and small leukoesterase with elevated WBCs and RBCs less than 1. COVID-19 PCR not detected. Patient was recently admitted to the hospital due to altered mental status/encephalopathy and suspected due to narcotic pain medications use. Neurological work-up has been negative. Patient was also complaining of blood in the stools. Patient was prepped for colonoscopy but procedure was aborted due to tachyarrhythmia. Seen by cardiology and was started on metoprolol. Patient is also on Eliquis for paroxysmal atrial fibrillation. Patient did improve clinically and was discharged home with home care. Subjective: I'm resume the care of the patient on 05/24/2021 This is a pleasant 75 years old female with multiple hospitalization, now presents with intractable nausea vomiting and abdominal pain with diarrhea suspicious for gastroenteritis also with some evidence of acute urinary tract infection. Also she had some fever yesterday of 100.1. Currently she is covered with ceftriaxone and Flagyl area stool studies and see this percent. Urine culture is pending. Also boxing promoter on the case for her left bundle branch block and A. fib and currently she is on Eliquis 5 mg recommended by boxing promoter, patient informed and she agrees to continue with it. Patient is eating 25% of her diet and discussed with bed side nurse to put her on liquid diet 05/25/2021 Patient is still have lower abdominal pain and diarrhea was not much difference is from yesterday after she was started on antibiotic. However no more fever only one episode 2 nights Ago. No vomiting and she tolerates liquid diet well. Stool study and C. diff are still pending however urine culture came back negative. Patient remains on ceftriaxone and Flagyl and Eliquis recommended by boxing promoter Patient blood pressure is running good because of this I'm going to lower her normal saline down to 50 mL/h. Objective - Vital Signs Vital signs: Vital Signs Temp 97.7 F 05/25/21 08:00 Pulse 66 05/25/21 08:00 Resp 18 05/25/21 08:00 BP 111/63 05/25/21 08:00 Pulse Ox 99 05/25/21 08:00 Intake & Output 05/24/21 05/25/21 05/25/21 18:59 06:59 18:59 Intake Total 2390 660 Output Total 200 350 300 Balance 2190 -350 360 Intake: IV 1300 Magnesium Sulfate-D5w Pmx 200 1 gm In Dextrose/Water 1 100ml.bag @ 100 mls/hr IVPB Q1H [facility] Rx#: [id number] Sodium Chloride 0.9% 1, 900 000 ml @ 75 mls/hr IV . [id number] [facility] Rx#:[id number] cefTRIAXone 1 gm In 100 Sodium Chloride 0.9% 50 ml @ 100 mls/hr IVPB ONCE ONE Rx#:[id number] metroNIDAZOLE-NS PMX 500 100 mg In Saline 1 100ml.bag @ 100 mls/hr IVPB Q8HR [facility] Rx#:[id number] Oral 1090 660 Output: Urine 200 350 300 Other: Voiding Method Toilet # Bowel Movements 1 - Exam GENERAL: The patient is alert and oriented x3, not in any acute distress. Well developed, well nourished. HEENT: Pupils are round and equally reacting to light. EOMI. No scleral icterus. No conjunctival pallor. Normocephalic, atraumatic. No pharyngeal erythema. No thyromegaly. CARDIOVASCULAR: S1 and S2 present. No murmurs, rubs, or gallops. PULMONARY: Chest is clear to auscultation, no wheezing or crackles. - ABDOMEN: Soft, periumbilical tenderness with no rebound tenderness with little guarding, nondistended, normoactive bowel sounds. No palpable organomegaly. MUSCULOSKELETAL: No joint swelling or deformity. EXTREMITIES: No cyanosis, clubbing, or pedal edema. NEUROLOGICAL: Gross neurological examination did not reveal any focal deficits. SKIN: No rashes. no petechiae. - Labs CBC & Chem 7: 05/24/21 07:35 05/24/21 07:35 Labs: Microbiology - Last 24 Hours (Table) 05/24/21 16:50 Stool Culture - Preliminary Stool 05/23/21 10:20 Urine Culture - Final Urine,Clean Catch Assessment and Plan Assessment: Mostly infectious versus reactive gastroenteritis, with Intractable nausea and vomiting and diarrhea. Acute urinary tract infection Abdominal pain- acute on chronic. CT of the abdomen pelvis showed no acute process Atypical chest pain. Ruled out ACS. Troponin x3 Left bundle branch block Paroxysmal atrial fibrillation on anticoagulation with Eliquis. Nonischemic cardiomyopathy ejection fraction 35 to 40% History of bowel resection and bariatric surgery Hypertension Hyperlipidemia GI and DVT prophylaxis patient is already on Eliquis Plan: This is a pleasant 75 years old female who presents with UTI/gastroenteritis and left bundle-branch block. Continue with normal saline 75 mm/h, continue with ceftriaxone and Flagyl, follow-up urine and stool studies. Case and the recommended Eliquis for A. fib and patient agrees. Labs and medication were reviewed.. Continue same treatment. Continue with symptomatic treatment. Resume home medication. Monitor lytes and vitals. DVT and GI prophylaxis. Further recommendationsas per clinical course of the patient DVT prophylaxis: Eliquis GI Prophylaxis: Ppi PT/OT: Pending Prognosis is guarded
--- NOTE | 2021-05-25 13:30 | P.PN ---
Subjective Progress Note Date: 05/25/21 CHIEF COMPLAINT: Abdominal pain HISTORY OF PRESENT ILLNESS: Patient still complaining of mid abdominal pain. She is having diarrhea. She reports that her pain is less than yesterday. Also reports that diarrhea is less than yesterday. Denies any nausea vomiting. She was downgraded to a clear liquid diet by medicine service yesterday. Patient is requesting more food. She tolerated full liquid diet this afternoon. Denies any blood in her stools or black stools. Afebrile. WBC 4.3 hemoglobin 9.5 platelets 322 C. diff negative magnesium 1.8 Patient seen and examined with Dr. atkins PHYSICAL EXAM: VITAL SIGNS: Reviewed. GENERAL: Well-developed in no acute distress. HEENT: No sclera icterus. Extraocular movements grossly intact. Moist buccal mucosa. Head is atraumatic, normocephalic. ABDOMEN: Soft. Nondistended. Tenderness to palpation of mid abdomen. NEUROLOGIC: Alert and oriented. Cranial nerves II through XII grossly intact. ASSESSMENT: 1. Chronic abdominal pain PLAN: -No surgical intervention planned -Continue supportive care -Advanced to regular diet Physician Electrical Prospector note has been reviewed by physician. Signing provider agrees with the documented findings, assessment, and plan of care. Objective - Vital Signs Vital signs: Vital Signs Temp 97.7 F 05/25/21 08:00 Pulse 66 05/25/21 08:00 Resp 18 05/25/21 08:00 BP 111/63 05/25/21 08:00 Pulse Ox 99 05/25/21 08:00 Intake & Output 05/24/21 05/25/21 05/25/21 18:59 06:59 18:59 Intake Total 2390 660 Output Total 200 350 300 Balance 2190 -350 360 Intake: IV 1300 Magnesium Sulfate-D5w Pmx 200 1 gm In Dextrose/Water 1 100ml.bag @ 100 mls/hr IVPB Q1H [facility] Rx#: [id number] Sodium Chloride 0.9% 1, 900 000 ml @ 75 mls/hr IV . [id number] [facility] Rx#:[id number] cefTRIAXone 1 gm In 100 Sodium Chloride 0.9% 50 ml @ 100 mls/hr IVPB ONCE ONE Rx#:[id number] metroNIDAZOLE-NS PMX 500 100 mg In Saline 1 100ml.bag @ 100 mls/hr IVPB Q8HR [facility] Rx#:[id number] Oral 1090 660 Output: Urine 200 350 300 Other: Voiding Method Toilet # Voids 1 # Bowel Movements 1 1 - Labs CBC & Chem 7: 05/24/21 07:35 05/24/21 07:35 Labs: Microbiology - Last 24 Hours (Table) 05/24/21 16:50 Stool Culture - Preliminary Stool 05/23/21 10:20 Urine Culture - Final Urine,Clean Catch
--- NOTE | 2021-05-25 13:39 | P.PN ---
Subjective This is a 75-year-old female with a past medical history significant for nonobstructive CAD, NSVT, paroxysmal atrial fibrillation (was on Eliquis unsure why it was stopped, was restarted last hospitalization on 05/11/2020), hypertension, hyperlipidemia, nonischemic cardiomyopathy, and diverticulitis with history of colectomy and colostomy placement and subsequent reversal of colostomy in October 2020. Patient has not been following in the office with a wharf tender helper. She was last seen in the office in 2012. We have been asked to see the patient in consultation for left bundle branch block. Patient presented to the hospital with complaints of abdominal pain and diarrhea. Her pain is located across her bilateral lower quadrants. Describes it as aching and constant. Started yesterday morning. She also had nausea and 4 episodes yellow emesis. She also describes having some left sided chest tenderness, aggravated by taking a deep breath and palpation to the chest. Pain is non-exertional, non-radiating. She denies any palpitations, lightheadedness, dizziness, syncope or near syncope. She denies symptoms of orthopnea, PND, lower extremity edema. She denies black or tarry stools. Denies any bleeding in urine or stool. Patient was recently admitted on 05/05/21-05/12/2021 with concerns for GI bleed. Endoscopies were cancelled due to patient having episodes of frequent NSVT. Cardiology evaluated the patient at that time. Patient was stabilized, her NSVT improved with medication adjustments. And surgery cleared patient to restart Eliquis. Eliquis was restarted on 05/11/21. However, patient states she was not taking it at home but is unsure why. DIAGNOSTICS -03/15/21 Echo shows worsened EF 35-40% however mainly apical hypokineis with spa ring of the base concerning for Takotsubo's cardiomyopathy. -Repeat echocardiogram this admission revealed an EF of 4045%, increased grade 2 diastolic dysfunction, apical hypokinesis, mild mitral regurgitation, tricuspid regurgitation 05/25/2021 Patient seen and examined at bedside no acute distress. Continues to have abdominal pain. No chest pain currently. Blood pressure 118/69, heart rate 78, afebrile, oxygen saturation 100% on room air. Labs reviewed, troponin negative x 3. PHYSICAL EXAM: VITAL SIGNS: Reviewed. GENERAL: Well-developed in no acute distress. HEENT: Neck supple. No JVD LUNGS: Respirations even and unlabored. Lungs essentially clear to auscultation bilaterally. HEART: Irregular rate and rhythm. S1 and S2 heard. Systolic murmur noted. ABDOMEN: Soft. Nondistended.Tenderness to bilateral lower quadrants EXTREMITIES: Normal range of motion. No clubbing or cyanosis. Peripheral pulses intact. No lower extremity edema NEUROLOGIC: Awake and alert. Oriented x 3. ASSESSMENT: Abdominal pain, nausea, vomiting, diarrhea Left bundle branch block Chest pain, atypical, appears musculosketal in nature, troponin negative x 3 Paroxysmal atrial fibrillation, was on Eliquis restarted on 05/11/21 last admission ok to restart per surgery, but patient not taking after last admission at home Nonobstructive coronary artery disease Non-ischemic cardiomyopathy, with improvement in EF 40-45% Hypertension Hyperlipidemia PLAN: Chest pain, atypical, appears musculosketal in nature, troponin negative x 3, acute coronary syndrome has ruled out. Repeat 2D echocardiogram revealed improvement in LV function to 40-45% from March 2021 Continue Eliquis 5mg BID Continue losartan, metoprolol tartrate 100mg BID From cardiology perspective no inpatient treatment changes at this time. Will follow the patient has indicated. Recommend patient follow-up in the office. Nurse practitioner note has been reviewed by physician. Signing provider agrees with the documented findings, assessment, and plan of care. Objective - Vital Signs Vital signs: Vital Signs Temp 97.6 F 05/25/21 12:00 Pulse 78 05/25/21 12:00 Resp 18 05/25/21 12:00 BP 118/69 05/25/21 12:00 Pulse Ox 100 05/25/21 12:00 Intake & Output 05/24/21 05/25/21 05/25/21 18:59 06:59 18:59 Intake Total 2390 1320 Output Total 200 350 300 Balance 2190 -350 1020 Intake: IV 1300 Magnesium Sulfate-D5w Pmx 200 1 gm In Dextrose/Water 1 100ml.bag @ 100 mls/hr IVPB Q1H [facility] Rx#: [id number] Sodium Chloride 0.9% 1, 900 000 ml @ 75 mls/hr IV . [id number] [facility] Rx#:[id number] cefTRIAXone 1 gm In 100 Sodium Chloride 0.9% 50 ml @ 100 mls/hr IVPB ONCE ONE Rx#:[id number] metroNIDAZOLE-NS PMX 500 100 mg In Saline 1 100ml.bag @ 100 mls/hr IVPB Q8HR [facility] Rx#:[id number] Oral 1090 1320 Output: Urine 200 350 300 Other: Voiding Method Toilet # Voids 1 # Bowel Movements 1 1 - Labs CBC & Chem 7: 05/24/21 07:35 05/24/21 07:35 Labs: Microbiology - Last 24 Hours (Table) 05/24/21 16:50 Stool Culture - Preliminary Stool 05/23/21 10:20 Urine Culture - Final Urine,Clean Catch
[2021-05-25] MEDS: CHOLESTYRAMINE (WITH SUGAR) 4 GM PACKET PO SCH ×2 (16:11)
[2021-05-25] MEDS: MAGNESIUM SULFATE-D5W PMX 1 GM in DEXTROSE/WATER 1 100ML.BAG IVPB SCH ×2 (16:28→17:28)
[2021-05-26] MEDS: metroNIDAZOLE-NS PMX 500 MG in SALINE 1 100ML.BAG IVPB SCH ×3 (00:16→15:26)
[2021-05-26] MEDS: METOPROLOL TARTRATE 50 MG TAB PO SCH ×2 (04:12→16:32)
[2021-05-26] MEDS: LEVOTHYROXINE 100 MCG TAB PO SCH (04:12)
[2021-05-26] MEDS: MORPHINE SULFATE 2 MG/ML SYRINGE IV PRN ×4 (04:13→20:44)
[2021-05-26] MEDS: PANTOPRAZOLE 40 MG TABLET PO SCH (07:50)
[2021-05-26] MEDS: GABAPENTIN 100 MG CAP PO SCH ×3 (07:50→20:43)
[2021-05-26] MEDS: LOSARTAN 25 MG TAB PO SCH (07:50)
[2021-05-26] MEDS: APIXABAN 5 MG TAB PO SCH ×2 (07:51→20:44)
[2021-05-26] MEDS: MULTIVITAMINS, THERA 1 EACH TAB PO SCH (07:51)
[2021-05-26] MEDS: CHOLECALCIFEROL 25 MCG (1000 IU) TABLET PO SCH (07:52)
--- NOTE | 2021-05-26 09:39 | P.PN ---
Progress Note - Text Progress Note Date: 05/26/21 Patient remains essentially unchanged. She still has some complaints of her chronic abdominal pain. She is currently being worked up by cardiology. On exam vital signs are stable. Abdomen soft. There is some minimal tenderness. There is no rebound or guarding. Chronic abdominal pain. No surgical intervention is being planned.
[2021-05-26] MEDS: CHOLESTYRAMINE (WITH SUGAR) 4 GM PACKET PO SCH ×2 (10:48→16:32)
[2021-05-26 11:01] LABS: African American GFR (CKD) 118.1 (60.0-200.0); Anion Gap 8.2 mmol/L (10.00-18.00); BUN/Creat Ratio 14.75 Ratio (12.00-20.00); Blood Urea Nitrogen 5.9 mg/dL (9.0-27.0); Calcium 7.3 mg/dL (8.7-10.3); Carbon Dioxide 17.8 mmol/L (20.0-27.5); Non-African American GFR(CKD) 101.9 (60.0-200.0)
--- NOTE | 2021-05-26 11:45 | P.PN ---
Subjective Patient is a 75-year-old female with a known history of paroxysmal atrial fibrillation on anticoagulation with Eliquis, coronary artery disease with history of stent placement, GERD, hypertension, chronic back pain, laryngeal cancer status post treatment 20 years ago, osteoarthritis, hearing disorder/deafness and hypothyroidism and previous history of smoking, anxiety/depression and panic disorder and other multiple medical problems presents to ER with complaints of diarrhea and abdominal pain mainly lower half and also experiencing 3 episodes of vomiting. Patient felt nauseous. She is also having decreased appetite. Patient presents to ER. Denied any complaints of chest pain or shortness breath. Does have nausea and episodes of vomiting. No headache or dizziness or lightheadedness. Denies any dysuria or hematuria. Denies any hematemesis or melena. Patient has been afebrile on admission. Pulse ox 99% on room air. On admission CT of the abdomen pelvis was done which showed intrasclerotic vascular disease. Previous bariatric surgery and sigmoid colon surgery. No evidence of bowel obstruction. No adverse change compared to old exam. Scoliotic deformity with spinal stenosis L4-L5 spondylosis. No change. EKG showed left axis deviation and left bundle branch block. And atrial fibrillation with heart rate 78. Laboratory showed WBC 4.6 hemoglobin 10.0 and platelets 360 Sodium 132 potassium 3.7 chloride 106 bicarb is 23 BUN 12 and creatinine 0.44 calcium 8.2 albumin 2.4 and lipase level is 21 Urinalysis is cloudy nitrite positive and small leukoesterase with elevated WBCs and RBCs less than 1. COVID-19 PCR not detected. Patient was recently admitted to the hospital due to altered mental status/encephalopathy and suspected due to narcotic pain medications use. Neurological work-up has been negative. Patient was also complaining of blood in the stools. Patient was prepped for colonoscopy but procedure was aborted due to tachyarrhythmia. Seen by cardiology and was started on metoprolol. Patient is also on Eliquis for paroxysmal atrial fibrillation. Patient did improve clinically and was discharged home with home care. Subjective: I'm resume the care of the patient on 05/24/2021 This is a pleasant 75 years old female with multiple hospitalization, now presents with intractable nausea vomiting and abdominal pain with diarrhea suspicious for gastroenteritis also with some evidence of acute urinary tract infection. Also she had some fever yesterday of 100.1. Currently she is covered with ceftriaxone and Flagyl area stool studies and see this percent. Urine culture is pending. Also napper grinder on the case for her left bundle branch block and A. fib and currently she is on Eliquis 5 mg recommended by napper grinder, patient informed and she agrees to continue with it. Patient is eating 25% of her diet and discussed with bed side nurse to put her on liquid diet 05/25/2021 Patient is still have lower abdominal pain and diarrhea was not much difference is from yesterday after she was started on antibiotic. However no more fever only one episode 2 nights Ago. No vomiting and she tolerates liquid diet well. Stool study and C. diff are still pending however urine culture came back negative. Patient remains on ceftriaxone and Flagyl and Eliquis recommended by napper grinder Patient blood pressure is running good because of this I'm going to lower her normal saline down to 50 mL/h. 05/26/2021 pt states her diarrhea is improving from 10/day to twice yesterday and started becoming more formed , yesterday she got only one dose of cholestyramine, most likely pt is improving with antibiotics , she still has significant lower abd pain , surgery team think this is chronic pt stool lactoferrin is positive , stool culture is pending once culture is back, we may consider patient for discharge. Other than that her labs and hemodynamically stable and she is improving. Cardiology recommended no further workup and follow-up as an outpatient Objective - Vital Signs Vital signs: Vital Signs Temp 97.9 F 05/26/21 04:10 Pulse 69 05/26/21 04:10 Resp 20 05/26/21 04:10 BP 156/82 05/26/21 04:10 Pulse Ox 96 05/26/21 04:10 Intake & Output 05/25/21 05/26/21 05/26/21 18:59 06:59 18:59 Intake Total 2460 860 Output Total 300 Balance 2160 860 Intake: IV 400 Sodium Chloride 0.9% 1, 400 000 ml @ 50 mls/hr IV . Q20H [facility] Rx#:[id number] Intake, IV Titration 100 Amount metroNIDAZOLE-NS PMX 500 100 mg In Saline 1 100ml.bag @ 100 mls/hr IVPB Q8HR [facility] Rx#:[id number] Oral 2460 360 Output: Urine 300 Other: Voiding Method Toilet Toilet # Voids 1 1 1 # Bowel Movements 1 - Exam GENERAL: The patient is alert and oriented x3, not in any acute distress. Well developed, well nourished. HEENT: Pupils are round and equally reacting to light. EOMI. No scleral icterus. No conjunctival pallor. Normocephalic, atraumatic. No pharyngeal erythema. No thyromegaly. CARDIOVASCULAR: S1 and S2 present. No murmurs, rubs, or gallops. PULMONARY: Chest is clear to auscultation, no wheezing or crackles. - ABDOMEN: Soft, periumbilical tenderness with no rebound tenderness with little guarding, nondistended, normoactive bowel sounds. No palpable organomegaly. MUSCULOSKELETAL: No joint swelling or deformity. EXTREMITIES: No cyanosis, clubbing, or pedal edema. NEUROLOGICAL: Gross neurological examination did not reveal any focal deficits. SKIN: No rashes. no petechiae. - Labs CBC & Chem 7: 05/24/21 07:35 05/26/21 05:27 Labs: Abnormal Lab Results - Last 24 Hours (Table) 05/24/21 Range/Units 16:50 Stool Lactoferrin POSITIVE A (NEGATIVE) Assessment and Plan Assessment: Mostly infectious versus reactive gastroenteritis, with Intractable nausea and vomiting and diarrhea. Acute urinary tract infection Abdominal pain- acute on chronic. CT of the abdomen pelvis showed no acute process Atypical chest pain. Ruled out ACS. Troponin x3 Left bundle branch block Paroxysmal atrial fibrillation on anticoagulation with Eliquis. Nonischemic cardiomyopathy ejection fraction 35 to 40% History of bowel resection and bariatric surgery Hypertension Hyperlipidemia GI and DVT prophylaxis patient is already on Eliquis Plan: This is a pleasant 75 years old female who presents with UTI/gastroenteritis and left bundle-branch block. Continue with normal saline 75 mm/h, continue with ceftriaxone and Flagyl, follow-up stool studies. Cardiology team on Case and the recommended Eliquis for A. fib and patient agrees. Hot Pond Operator recommended follow-up at Labs and medication were reviewed.. Continue same treatment. Continue with symptomatic treatment. Resume home medication. Monitor lytes and vitals. DVT and GI prophylaxis. Further recommendationsas per clinical course of the curt ent DVT prophylaxis: Eliquis GI Prophylaxis: Ppi Discharge patient once stool culture is back and patient keeps improving
[2021-05-26] MEDS: SODIUM CHLORIDE 0.9% 1,000 ML IV SCH (17:34)
[2021-05-27] MEDS: metroNIDAZOLE-NS PMX 500 MG in SALINE 1 100ML.BAG IVPB SCH ×3 (00:27→15:10)
[2021-05-27] MEDS: MORPHINE SULFATE 2 MG/ML SYRINGE IV PRN ×2 (02:08→06:05)
[2021-05-27] MEDS: LEVOTHYROXINE 100 MCG TAB PO SCH (06:04)
[2021-05-27] MEDS: METOPROLOL TARTRATE 50 MG TAB PO SCH ×2 (08:31→17:56)
[2021-05-27] MEDS: PANTOPRAZOLE 40 MG TABLET PO SCH (08:31)
[2021-05-27] MEDS: LOSARTAN 25 MG TAB PO SCH (08:32)
[2021-05-27] MEDS: GABAPENTIN 100 MG CAP PO SCH ×3 (08:32→21:25)
[2021-05-27] MEDS: MULTIVITAMINS, THERA 1 EACH TAB PO SCH (08:32)
[2021-05-27] MEDS: CHOLECALCIFEROL 25 MCG (1000 IU) TABLET PO SCH (08:32)
[2021-05-27] MEDS: ONDANSETRON 4 MG/2 ML VIAL IVP PRN ×2 (08:32→18:29)
[2021-05-27] MEDS: APIXABAN 5 MG TAB PO SCH ×2 (08:32→21:25)
[2021-05-27] MEDS: CHOLESTYRAMINE (WITH SUGAR) 4 GM PACKET PO SCH ×2 (08:32→17:56)
[2021-05-27] MEDS: SODIUM CHLORIDE 0.9% 1,000 ML IV SCH (08:34)
--- NOTE | 2021-05-27 11:23 | P.PN ---
Subjective Patient is a 75-year-old female with a known history of paroxysmal atrial fibrillation on anticoagulation with Eliquis, coronary artery disease with history of stent placement, GERD, hypertension, chronic back pain, laryngeal cancer status post treatment 20 years ago, osteoarthritis, hearing disorder/deafness and hypothyroidism and previous history of smoking, anxiety/depression and panic disorder and other multiple medical problems presents to ER with complaints of diarrhea and abdominal pain mainly lower half and also experiencing 3 episodes of vomiting. Patient felt nauseous. She is also having decreased appetite. Patient presents to ER. Denied any complaints of chest pain or shortness breath. Does have nausea and episodes of vomiting. No headache or dizziness or lightheadedness. Denies any dysuria or hematuria. Denies any hematemesis or melena. Patient has been afebrile on admission. Pulse ox 99% on room air. On admission CT of the abdomen pelvis was done which showed intrasclerotic vascular disease. Previous bariatric surgery and sigmoid colon surgery. No evidence of bowel obstruction. No adverse change compared to old exam. Scoliotic deformity with spinal stenosis L4-L5 spondylosis. No change. EKG showed left axis deviation and left bundle branch block. And atrial fibrillation with heart rate 78. Laboratory showed WBC 4.6 hemoglobin 10.0 and platelets 360 Sodium 132 potassium 3.7 chloride 106 bicarb is 23 BUN 12 and creatinine 0.44 calcium 8.2 albumin 2.4 and lipase level is 21 Urinalysis is cloudy nitrite positive and small leukoesterase with elevated WBCs and RBCs less than 1. COVID-19 PCR not detected. Patient was recently admitted to the hospital due to altered mental status/encephalopathy and suspected due to narcotic pain medications use. Neurological work-up has been negative. Patient was also complaining of blood in the stools. Patient was prepped for colonoscopy but procedure was aborted due to tachyarrhythmia. Seen by cardiology and was started on metoprolol. Patient is also on Eliquis for paroxysmal atrial fibrillation. Patient did improve clinically and was discharged home with home care. Subjective: I'm resume the care of the patient on 05/24/2021 This is a pleasant 75 years old female with multiple hospitalization, now presents with intractable nausea vomiting and abdominal pain with diarrhea suspicious for gastroenteritis also with some evidence of acute urinary tract infection. Also she had some fever yesterday of 100.1. Currently she is covered with ceftriaxone and Flagyl area stool studies and see this percent. Urine culture is pending. Also research contracts supervisor on the case for her left bundle branch block and A. fib and currently she is on Eliquis 5 mg recommended by research contracts supervisor, patient informed and she agrees to continue with it. Patient is eating 25% of her diet and discussed with bed side nurse to put her on liquid diet 05/25/2021 Patient is still have lower abdominal pain and diarrhea was not much difference is from yesterday after she was started on antibiotic. However no more fever only one episode 2 nights Ago. No vomiting and she tolerates liquid diet well. Stool study and C. diff are still pending however urine culture came back negative. Patient remains on ceftriaxone and Flagyl and Eliquis recommended by research contracts supervisor Patient blood pressure is running good because of this I'm going to lower her normal saline down to 50 mL/h. 05/26/2021 pt states her diarrhea is improving from 10/day to twice yesterday and started becoming more formed , yesterday she got only one dose of cholestyramine, most likely pt is improving with antibiotics , she still has significant lower abd pain , surgery team think this is chronic pt stool lactoferrin is positive , stool culture is pending once culture is back, we may consider patient for discharge. Other than that her labs and hemodynamically stable and she is improving. Cardiology recommended no further workup and follow-up as an outpatient 05/27/2011 Patient vomited twice last night and she states that her bowel movement is loose again she still complaining of from increasing pain and tenderness, mainly in the lower abdomen but today also little more in the upper abdomen. There is also some mild guarding It looks like the patient under treated with pain management as she is on morphine 2 mg every 8 hours, we increased the dose to 4 mg every 8 hours and add [place] 5 mg when necessary. However with a repeat CT of the abdomen and pelvis with oral contrast only for a follow-up. She is eating 50-75% of her diet and we will repeat labs in the morning. Surgery team on the case C. diff is negative, she remains on ceftriaxone and Flagyl, stool lactoferrin is positive and stool culture is pending. Objective - Vital Signs Vital signs: Vital Signs Temp 98.6 F 05/27/21 04:55 Pulse 74 05/27/21 08:41 Resp 18 05/27/21 08:41 BP 151/64 05/27/21 08:41 Pulse Ox 95 05/27/21 08:41 Intake & Output 05/26/21 05/27/21 05/27/21 18:59 06:59 18:59 Intake Total 750 700 Balance 750 700 Intake: IV 700 Sodium Chloride 0.9% 1, 600 000 ml @ 50 mls/hr IV . Q20H [facility] Rx#:[id number] metroNIDAZOLE-NS PMX 500 100 mg In Saline 1 100ml.bag @ 100 mls/hr IVPB Q8HR [facility] Rx#:[id number] Intake, IV Titration 750 Amount Sodium Chloride 0.9% 1, 500 000 ml @ 50 mls/hr IV . Q20H [facility] Rx#:[id number] cefTRIAXone 2 gm In 50 Sodium Chloride 0.9% 50 ml @ 100 mls/hr IVPB Q24HR [facility] Rx#:[id number] metroNIDAZOLE-NS PMX 500 200 mg In Saline 1 100ml.bag @ 100 mls/hr IVPB Q8HR [facility] Rx#:[id number] Other: Voiding Method Toilet Toilet # Voids 1 3 # Bowel Movements 1 - Exam GENERAL: The patient is alert and oriented x3, not in any acute distress. Well developed, well nourished. HEENT: Pupils are round and equally reacting to light. EOMI. No scleral icterus. No conjunctival pallor. Normocephalic, atraumatic. No pharyngeal erythema. No thyromegaly. CARDIOVASCULAR: S1 and S2 present. No murmurs, rubs, or gallops. PULMONARY: Chest is clear to auscultation, no wheezing or crackles. - ABDOMEN: Soft, periumbilical tenderness with no rebound tenderness with little guarding, nondistended, normoactive bowel sounds. No palpable organomegaly. MUSCULOSKELETAL: No joint swelling or deformity. EXTREMITIES: No cyanosis, clubbing, or pedal edema. NEUROLOGICAL: Gross neurological examination did not reveal any focal deficits. SKIN: No rashes. no petechiae. - Labs CBC & Chem 7: 05/24/21 07:35 05/26/21 05:27 Labs: Abnormal Lab Results - Last 24 Hours (Table) 05/26/21 Range/Units 05:27 Sodium 134 L (135-145) mmol/L Carbon Dioxide 17.8 L (20.0-27.5) mmol/L Anion Gap 8.20 L (10.00-18.00) mmol/L BUN 5.9 L (9.0-27.0) mg/dL Creatinine 0.4 L (0.6-1.5) mg/dL Calcium 7.3 L (8.7-10.3) mg/dL Assessment and Plan Assessment: Mostly infectious versus reactive gastroenteritis, with Intractable nausea and vomiting and diarrhea. Acute urinary tract infection Abdominal pain- acute on chronic. CT of the abdomen pelvis showed no acute pr ocess Atypical chest pain. Ruled out ACS. Troponin x3 Left bundle branch block Paroxysmal atrial fibrillation on anticoagulation with Eliquis. Nonischemic cardiomyopathy ejection fraction 35 to 40% History of bowel resection and bariatric surgery Hypertension Hyperlipidemia GI and DVT prophylaxis patient is already on Eliquis Plan: This is a pleasant 75 years old female who presents with UTI/gastroenteritis and left bundle-branch block. Continue with normal saline 75 mm/h, continue with ceftriaxone and Flagyl, follow-up stool studies. Increase morphine dose and add [place] repeat CT of the abdomen and pelvis with oral contrast Cardiology team on Case and the recommended Eliquis for A. fib and patient agrees. Leather Belt Shaper recommended follow-up at Labs and medication were reviewed.. Continue same treatment. Continue with symptomatic treatment. Resume home medication. Monitor lytes and vitals. DVT and GI prophylaxis. Further recommendationsas per clinical course of the patient DVT prophylaxis: Eliquis GI Prophylaxis: Ppi
[2021-05-27] MEDS: HYDROcodone/APAP 5-325MG 1 EACH TAB PO PRN ×2 (11:34→17:56)
[2021-05-27] MEDS: IOPAMIDOL CONTRAST (ORAL USE) VIAL PO PRN ×2 (11:34→12:59)
--- NOTE | 2021-05-27 14:38 | CT ---
EXAMINATION TYPE: CT abdomen pelvis wo con DATE OF EXAM: 05/27/2021 COMPARISON: 05/22/2021 HISTORY: pain and tenderness CT DLP: 790.2 mGycm Automated exposure control for dose reduction was used. Images obtained from the diaphragm to the floor the pelvis with oral contrast only. There are bilateral pleural effusions with basilar infiltrates and atelectasis. Heart size is fairly normal. There is no pericardial effusion. There is coronary artery calcification. There is previous gastric surgery. Liver and spleen are intact. The bile ducts are not dilated. There is no pancreatic mass. There are clips from cholecystectomy. There is no adrenal mass. Kidneys have normal size and contour. There is no hydronephrosis. Ureters a re not dilated. There is no retroperitoneal adenopathy. Urinary bladder appears intact. There is some mild presacral edema. There is oral contrast extending to the distal ileum. There are surgical clips at the rectosigmoid ju nction. There is some mild wall thickening of the sigmoid colon. There is no free air. There is no ascites. No sign of a bowel obstruction. There are multilevel spondylotic changes in the lumbar spine. There is vacuum disc phenomenon. The [place] pelvis is intact. Hip joints are intact. There is mild lumbar dextroscoliosis. Appendix not seen. IMPRESSION: Mild wall thickening of the sigmoid colon similar to old exam and could relate to some focal colitis. No bowel obstruction. Pleural effusions and basilar pulmonary infiltrates are new compared to recent exam. This could be co ngestive heart failure.
[2021-05-27] MEDS: MORPHINE SULFATE 4 MG/ML SYRINGE IV PRN ×2 (15:10→19:34)
--- NOTE | 2021-05-27 15:26 | P.PN ---
Subjective Progress Note Date: 05/27/21 CHIEF COMPLAINT: Chronic abdominal pain HISTORY OF PRESENT ILLNESS: The patient is a 75-year-old female with complicated medical history including a Suzanna-en-Y gastric bypass, perforated diverticulitis status post reversal and pre-existing history of gastric ulcers of her gastric bypass. She was readmitted for chronic abdominal pain. She is tolerating diet. ROS: No fevers or chills. No shortness of breath PHYSICAL EXAM: VITAL SIGNS: Reviewed CONSTITUTIONAL: Well developed and in no acute distress. EYES: Conjuctivae without sclera icterus. Extraocular movements grossly intact. HEAD, EARS, NOSE, THROAT: Moist buccal mucosa. Head is atraumatic, normocephalic. No nasal drainage. RESPIRATORY: Non-labored respirations and equal bilateral excursions. CARDIOVASCULAR: Palpable 2+ radial pulses. ABDOMEN: No peritonitis. MUSCULOSKELETAL: No gross deformity of the lower extremities noted. No clubbing. No cyanosis. SKIN: Good skin turgor. Well perfused. NEUROLOGIC: Cranial nerves II through XII grossly intact. No focal or lateralizing signs. PSYCH: Alert to person. CLINICAL LABS: Reviewed. Creatinine low ASSESSMENT: 1. Chronic abdominal pain PLAN: 1. Diet as tolerated Objective - Vital Signs Vital signs: Vital Signs Temp 98.6 F 05/27/21 04:55 Pulse 74 05/27/21 08:41 Resp 18 05/27/21 08:41 BP 151/64 05/27/21 08:41 Pulse Ox 95 05/27/21 08:41 Intake & Output 05/26/21 05/27/21 05/27/21 18:59 06:59 18:59 Intake Total 750 700 Balance 750 700 Intake: IV 700 Sodium Chloride 0.9% 1, 600 000 ml @ 50 mls/hr IV . Q20H [facility] Rx#:[id number] metroNIDAZOLE-NS PMX 500 100 mg In Saline 1 100ml.bag @ 100 mls/hr IVPB Q8HR [facility] Rx#:[id number] Intake, IV Titration 750 Amount Sodium Chloride 0.9% 1, 500 000 ml @ 50 mls/hr IV . Q20H [facility] Rx#:[id number] cefTRIAXone 2 gm In 50 Sodium Chloride 0.9% 50 ml @ 100 mls/hr IVPB Q24HR [facility] Rx#:[id number] metroNIDAZOLE-NS PMX 500 200 mg In Saline 1 100ml.bag @ 100 mls/hr IVPB Q8HR [facility] Rx#:[id number] Other: Voiding Method Toilet Toilet Toilet # Voids 1 3 # Bowel Movements 1 - Labs CBC & Chem 7: 05/24/21 07:35 05/26/21 05:27
[2021-05-27] MEDS ORDERED: FUROSEMIDE 10 MG/ML 4 ML VIAL IV STA (18:12)
[2021-05-28] MEDS: metroNIDAZOLE-NS PMX 500 MG in SALINE 1 100ML.BAG IVPB SCH ×3 (00:10→15:40)
[2021-05-28] MEDS: MORPHINE SULFATE 4 MG/ML SYRINGE IV PRN ×5 (00:11→21:26)
[2021-05-28] MEDS: LEVOTHYROXINE 100 MCG TAB PO SCH (05:08)
[2021-05-28] MEDS: METOPROLOL TARTRATE 50 MG TAB PO SCH ×2 (05:08→17:39)
[2021-05-28] MEDS: SODIUM CHLORIDE 0.9% 1,000 ML IV SCH ×2 (07:30→07:35)
[2021-05-28] MEDS: CHOLESTYRAMINE (WITH SUGAR) 4 GM PACKET PO SCH ×2 (07:31→17:40)
[2021-05-28] MEDS: GABAPENTIN 100 MG CAP PO SCH ×3 (07:31→21:26)
[2021-05-28] MEDS: CHOLECALCIFEROL 25 MCG (1000 IU) TABLET PO SCH (07:32)
[2021-05-28] MEDS: LOSARTAN 25 MG TAB PO SCH (07:32)
[2021-05-28] MEDS: APIXABAN 5 MG TAB PO SCH (07:32)
[2021-05-28] MEDS: HYDROcodone/APAP 5-325MG 1 EACH TAB PO PRN ×2 (07:32→13:09)
[2021-05-28] MEDS: PANTOPRAZOLE 40 MG TABLET PO SCH (07:33)
[2021-05-28] MEDS: MULTIVITAMINS, THERA 1 EACH TAB PO SCH (07:33)
[2021-05-28] MEDS: ONDANSETRON 4 MG/2 ML VIAL IVP PRN ×2 (07:33→17:39)
--- NOTE | 2021-05-28 07:52 | XR ---
EXAMINATION TYPE: XR chest 1V DATE OF EXAM: 05/28/2021 COMPARISON: 05/04/2021 HISTORY: 75-year-old female shortness of breath TECHNIQUE: Single frontal view of the chest is obtained. FINDINGS: Resurfacing left shoulder arthroplasty. Heart upper limits of normal in size. Mild elongat ion/ectasia of the thoracic aorta. Developing patchy left basilar opacity. Mild hyperinflation. No pl eural effusion. IMPRESSION: COPD and borderline heart size. Developing patchy atelectasis versus early infiltrate at the left bas e.
[2021-05-28] MEDS ORDERED: DIPHENOX-ATROP 2.5-0.025 MG 1 EACH TAB PO PRN (10:07)
[2021-05-28 11:00] LABS: HCT 23.7 % (37.2-46.3); HGB 7.2 g/dL (12.0-15.0); MCH 28.3 pg (27.0-32.0); MCHC 30.4 g/dL (32.0-37.0); MCV 93.3 fL (80.0-97.0); Mean Platelet Volume 10.6 fL (9.5-12.2); NRBC Per 100 WBC 0 /100 WBCS (0.0-0.0); Platelet Count 224 X 10*3/uL (140-440); RBC 2.54 X 10*6/uL (4.10-5.20); RDW 17.6 % (11.5-14.5); WBC 4.35 X 10*3/uL (4.50-10.00)
[2021-05-28 11:38] LABS: Basophils # (A) 0.05 X 10*3/uL (0.00-0.10); Basophils % (A) 1.1 %; Eosinophils # (A) 0.13 X 10*3/uL (0.04-0.35); Immature Grans, Automated 0.2 %; Lymphocytes # (A) 2.06 X 10*3/uL (0.90-5.00); Lymphocytes % (A) 47.4 %; Monocytes # (A) 0.76 X 10*3/uL (0.20-1.00); Monocytes % (A) 17.5 %; Neutrophils # (A) 1.34 X 10*3/uL (1.80-7.70); Neutrophils % (A) 30.8 %; Rouleaux PRESENT
[2021-05-28 11:55] LABS: Magnesium 1.5 mg/dL (1.5-2.4)
[2021-05-28 11:56] LABS: ALT 10 U/L (8-44); AST 17 U/L (13-35); African American GFR (CKD) 118.1 (60.0-200.0); Albumin 1.8 g/dL (3.8-4.9); Albumin/Globulin Ratio 0.78 (1.60-3.17); Alkaline Phosphatase 115 U/L (41-126); BUN/Creat Ratio 15.25 Ratio (12.00-20.00); Blood Urea Nitrogen 6.1 mg/dL (9.0-27.0); Calcium 7.6 mg/dL (8.7-10.3); Carbon Dioxide 20.6 mmol/L (20.0-27.5); Chloride 106 mmol/L (96-109); Globulin 2.3 g/dL (1.6-3.3); Glucose 90 mg/dL (70-110); Non-African American GFR(CKD) 101.9 (60.0-200.0); Potassium 3.5 mmol/L (3.5-5.5); Sodium 133 mmol/L (135-145); Total Bilirubin <0.15 mg/dL (0.30-1.20); Total Protein 4.1 g/dL (6.2-8.2)
--- NOTE | 2021-05-28 12:12 | P.PN ---
Subjective Patient is a 75-year-old female with a known history of paroxysmal atrial fibrillation on anticoagulation with Eliquis, coronary artery disease with history of stent placement, GERD, hypertension, chronic back pain, laryngeal cancer status post treatment 20 years ago, osteoarthritis, hearing disorder/deafness and hypothyroidism and previous history of smoking, anxiety/depression and panic disorder and other multiple medical problems presents to ER with complaints of diarrhea and abdominal pain mainly lower half and also experiencing 3 episodes of vomiting. Patient felt nauseous. She is also having decreased appetite. Patient presents to ER. Denied any complaints of chest pain or shortness breath. Does have nausea and episodes of vomiting. No headache or dizziness or lightheadedness. Denies any dysuria or hematuria. Denies any hematemesis or melena. Patient has been afebrile on admission. Pulse ox 99% on room air. On admission CT of the abdomen pelvis was done which showed intrasclerotic vascular disease. Previous bariatric surgery and sigmoid colon surgery. No evidence of bowel obstruction. No adverse change compared to old exam. Scoliotic deformity with spinal stenosis L4-L5 spondylosis. No change. EKG showed left axis deviation and left bundle branch block. And atrial fibrillation with heart rate 78. Laboratory showed WBC 4.6 hemoglobin 10.0 and platelets 360 Sodium 132 potassium 3.7 chloride 106 bicarb is 23 BUN 12 and creatinine 0.44 calcium 8.2 albumin 2.4 and lipase level is 21 Urinalysis is cloudy nitrite positive and small leukoesterase with elevated WBCs and RBCs less than 1. COVID-19 PCR not detected. Patient was recently admitted to the hospital due to altered mental status/encephalopathy and suspected due to narcotic pain medications use. Neurological work-up has been negative. Patient was also complaining of blood in the stools. Patient was prepped for colonoscopy but procedure was aborted due to tachyarrhythmia. Seen by cardiology and was started on metoprolol. Patient is also on Eliquis for paroxysmal atrial fibrillation. Patient did improve clinically and was discharged home with home care. Subjective: I'm resume the care of the patient on 05/24/2021 This is a pleasant 75 years old female with multiple hospitalization, now presents with intractable nausea vomiting and abdominal pain with diarrhea suspicious for gastroenteritis also with some evidence of acute urinary tract infection. Also she had some fever yesterday of 100.1. Currently she is covered with ceftriaxone and Flagyl area stool studies and see this percent. Urine culture is pending. Also lift slab operator on the case for her left bundle branch block and A. fib and currently she is on Eliquis 5 mg recommended by lift slab operator, patient informed and she agrees to continue with it. Patient is eating 25% of her diet and discussed with bed side nurse to put her on liquid diet 05/25/2021 Patient is still have lower abdominal pain and diarrhea was not much difference is from yesterday after she was started on antibiotic. However no more fever only one episode 2 nights Ago. No vomiting and she tolerates liquid diet well. Stool study and C. diff are still pending however urine culture came back negative. Patient remains on ceftriaxone and Flagyl and Eliquis recommended by lift slab operator Patient blood pressure is running good because of this I'm going to lower her normal saline down to 50 mL/h. 05/26/2021 pt states her diarrhea is improving from 10/day to twice yesterday and started becoming more formed , yesterday she got only one dose of cholestyramine, most likely pt is improving with antibiotics , she still has significant lower abd pain , surgery team think this is chronic pt stool lactoferrin is positive , stool culture is pending once culture is back, we may consider patient for discharge. Other than that her labs and hemodynamically stable and she is improving. Cardiology recommended no further workup and follow-up as an outpatient 05/27/2011 Patient vomited twice last night and she states that her bowel movement is loose again she still complaining of from increasing pain and tenderness, mainly in the lower abdomen but today also little more in the upper abdomen. There is also some mild guarding It looks like the patient under treated with pain management as she is on morphine 2 mg every 8 hours, we increased the dose to 4 mg every 8 hours and add [employer] 5 mg when necessary. However with a repeat CT of the abdomen and pelvis with oral contrast only for a follow-up. She is eating 50-75% of her diet and we will repeat labs in the morning. Surgery team on the case C. diff is negative, she remains on ceftriaxone and Flagyl, stool lactoferrin is positive and stool culture is pending. 05/28/2021 Patient is still complaining from abdominal pain, diarrhea and vomiting. Patient states that she has chronic abdominal pain 5/10 however since admission has increased up to 90/10. She still have loose bowel movement like twice this morning, she still vomiting. He was some report of dyspnea but she was not tachypneic or dyspneic at rest when I saw her this morning with no basal crepitation. Chest x-ray showing atelectasis versus early infiltrate. But patient with no fever or leukocytosis. CT of the abdomen and pelvis yesterday showing possible left colitis and patient stool cultures came back negative although lactoferrin stool was positive. Also significantly her hemoglobin dropped today from 10 on admission down to 9.5 and 7.2 today. Therefore Eliquis started on admission was held, we placed her on Protonix from oral to IV once daily, also 2 anemia workup including occult blood in the stool and continue with gentle hydration of normal saline at 75 mL/h Also continue with antibiotics at [place] for respiratory and abdominal symptoms. C. diff is negative. Surgical team on the case Objective - Vital Signs Vital signs: Vital Signs Temp 98.3 F 05/28/21 05:00 Pulse 72 05/28/21 05:00 Resp 16 05/28/21 05:00 BP 158/62 05/28/21 05:00 Pulse Ox 98 05/28/21 05:00 Intake & Output 05/27/21 05/28/21 05/28/21 18:59 06:59 18:59 Intake Total 590 Balance 590 Weight 52 kg Intake: Oral 590 Other: Voiding Method Toilet Toilet Toilet # Voids 3 2 - Exam GENERAL: The patient is alert and oriented x3, not in any acute distress. Well developed, well nourished. HEENT: Pupils are round and equally reacting to light. EOMI. No scleral icterus. No conjunctival pallor. Normocephalic, atraumatic. No pharyngeal erythema. No thyromegaly. CARDIOVASCULAR: S1 and S2 present. No murmurs, rubs, or gallops. PULMONARY: Chest is clear to auscultation, no wheezing or crackles. - ABDOMEN: Soft, periumbilical tenderness with no rebound tenderness with little guarding, nondistended, normoactive bowel sounds. No palpable organomegaly. MUSCULOSKELETAL: No joint swelling or deformity. EXTREMITIES: No cyanosis, clubbing, or pedal edema. NEUROLOGICAL: Gross neurological examination did not reveal any focal deficits. SKIN: No rashes. no petechiae. - Labs CBC & Chem 7: 05/28/21 07:21 05/28/21 07:21 Labs: Microbiology - Last 24 Hours (Table) 05/24/21 16:50 Stool Culture - Final Stool Assessment and Plan Assessment: Mostly infectious versus reactive gastroenteritis, with Intractable nausea and vomiting and diarrhea. CT showing focal descending colitis atelectasis versus early pneumonia Acute urinary tract infection ruled out. Culture is negative and patient is as symptomatic Abdominal pain- acute on chronic. Atypical chest pain. Cardiac causes ruled out. Chest pain resolved Left bundle branch block Paroxysmal atrial fibrillation on anticoagulation with Eliquis.(Held for anemia) Nonischemic cardiomyopathy ejection fraction 35 to 40% History of bowel resection and bariatric surgery Hypertension Hyperlipidemia GI and DVT prophylaxis patient is already on Eliquis Plan: This is a pleasant 75 years old female who presents with UTI/gastroenteritis and left bundle-branch block. Continue with normal saline 75 mm/h, continue with ceftriaxone and Flagyl Monitor hemoglobin Hold Eliquis and start Protonix 40 mg IV Increase morphine dose and add [employer] Cardiology team on Case and the recommended Eliquis (hold for anemia ) for A. fib and patient agrees. Ground Crew Chief recommended follow-up as an outpatient. Labs and medication were reviewed.. Continue same treatment. Continue with symptomatic treatment. Resume home medication. Monitor lytes and vitals. DVT and GI prophylaxis. Further recommendationsas per clinical course of the patient DVT prophylaxis: Eliquis (held for anemia) GI Prophylaxis: Ppi
[2021-05-28] MEDS: PANTOPRAZOLE 40 MG/10 ML VIAL IVP SCH (13:09)
--- NOTE | 2021-05-28 14:39 | P.PN ---
Subjective Progress Note Date: 05/28/21 CHIEF COMPLAINT: Chronic abdominal pain HISTORY OF PRESENT ILLNESS: The patient is a 75-year-old female with complicated medical history including a Suzanna-en-Y gastric bypass, perforated diverticulitis status post reversal and pre-existing history of gastric ulcers of her gastric bypass. She was readmitted for chronic abdominal pain. "I do not want any more surgeries." She denies active chest pain. No current blood in stools. ROS: No fevers or chills. No shortness of breath. No current chest pain PHYSICAL EXAM: VITAL SIGNS: Reviewed CONSTITUTIONAL: Well developed and in no acute distress. EYES: Conjuctivae without sclera icterus. Extraocular movements grossly intact. HEAD, EARS, NOSE, THROAT: Moist buccal mucosa. Head is atraumatic, normocephalic. No nasal drainage. RESPIRATORY: Non-labored respirations and equal bilateral excursions. CARDIOVASCULAR: Palpable 2+ radial pulses. ABDOMEN: No peritonitis. Nontender. MUSCULOSKELETAL: No gross deformity of the lower extremities noted. No clubbing. No cyanosis. SKIN: Good skin turgor. Well perfused. NEUROLOGIC: Cranial nerves II through XII grossly intact. No focal or lateralizing signs. PSYCH: Alert to person. CLINICAL LABS: Reviewed. Hgb down 9.4 to 7.2, anemia ASSESSMENT: 1. Chronic abdominal pain 2. Acute anemia 3. History of gastric bypass. PLAN: 1. May need repeat upper/lower scope due to recurrent acute anemia 2. 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 Objective - Vital Signs Vital signs: Vital Signs Temp 98.3 F 05/28/21 05:00 Pulse 72 05/28/21 05:00 Resp 16 05/28/21 05:00 BP 158/62 05/28/21 05:00 Pulse Ox 98 05/28/21 05:00 Intake & Output 05/27/21 05/28/21 05/28/21 18:59 06:59 18:59 Intake Total 590 Balance 590 Weight 52 kg Intake: Oral 590 Other: Voiding Method Toilet Toilet Toilet # Voids 3 2 - Labs CBC & Chem 7: 05/28/21 07:21 05/28/21 07:21 Labs: Abnormal Lab Results - Last 24 Hours (Table) 05/28/21 05/28/21 Range/Units 07:21 07:21 WBC 4.35 L (4.50-10.00) X 10*3/uL RBC 2.54 L (4.10-5.20) X 10*6/uL Hgb 7.2 L (12.0-15.0) g/dL Hct 23.7 L (37.2-46.3) % MCHC 30.4 L (32.0-37.0) g/dL RDW 17.6 H (11.5-14.5) % Neutrophils # 1.34 L (1.80-7.70) X 10*3/uL Sodium 133 L (135-145) mmol/L Anion Gap 6.40 L (10.00-18.00) mmol/L BUN 6.1 L (9.0-27.0) mg/dL Creatinine 0.4 L (0.6-1.5) mg/dL Calcium 7.6 L (8.7-10.3) mg/dL Total Bilirubin <0.15 L (0.30-1.20) mg/dL Total Protein 4.1 L (6.2-8.2) g/dL Albumin 1.8 L (3.8-4.9) g/dL Albumin/Globulin Ratio 0.78 L (1.60-3.17) g/dL Microbiology - Last 24 Hours (Table) 05/24/21 16:50 Stool Culture - Final Stool Assessment and Plan (1) Acute anemia Current Visit: Yes Status: Acute Code(s): D64.9 - ANEMIA, UNSPECIFIED SNOMED Code(s): 178030539 (2) Chronic abdominal pain Current Visit: Yes Status: Acute Code(s): R10.9 - UNSPECIFIED ABDOMINAL PAIN; G89.29 - OTHER CHRONIC PAIN SNOMED Code(s): 606641050 (3) H/O gastric bypass Current Visit: No Status: Acute Code(s): Z98.890 - OTHER SPECIFIED POSTPROCEDURAL STATES SNOMED Code(s): 452222020
[2021-05-28 23:48] LABS: % Iron Saturation 8.01 (12.00-45.00); Ferritin 27.5 ng/mL (10.0-291.0); Folate, Serum 6.9 ng/mL (4.40-31.00)
[2021-05-29] MEDS: SODIUM CHLORIDE 0.9% 1,000 ML IV SCH ×3 (00:10→23:56)
[2021-05-29] MEDS: metroNIDAZOLE-NS PMX 500 MG in SALINE 1 100ML.BAG IVPB SCH ×4 (00:37→23:55)
[2021-05-29] MEDS: HYDROcodone/APAP 5-325MG 1 EACH TAB PO PRN ×3 (01:31→15:03)
[2021-05-29] MEDS: METOPROLOL TARTRATE 50 MG TAB PO SCH ×2 (05:45→18:09)
[2021-05-29] MEDS: LEVOTHYROXINE 100 MCG TAB PO SCH (05:45)
[2021-05-29] MEDS: MORPHINE SULFATE 4 MG/ML SYRINGE IV PRN ×5 (05:45→23:52)
[2021-05-29] MEDS: CHOLESTYRAMINE (WITH SUGAR) 4 GM PACKET PO SCH ×2 (07:49→18:09)
[2021-05-29] MEDS: MULTIVITAMINS, THERA 1 EACH TAB PO SCH (07:50)
[2021-05-29] MEDS: CHOLECALCIFEROL 25 MCG (1000 IU) TABLET PO SCH (07:50)
[2021-05-29] MEDS: LOSARTAN 25 MG TAB PO SCH (07:50)
[2021-05-29] MEDS: GABAPENTIN 100 MG CAP PO SCH ×3 (07:50→21:59)
[2021-05-29 10:17] LABS: Basophils # (A) 0.03 X 10*3/uL (0.00-0.10); Basophils % (A) 0.6 %; Eosinophils # (A) 0.08 X 10*3/uL (0.04-0.35); Eosinophils % (A) 1.6 %; HCT 26.3 % (37.2-46.3); HGB 7.7 g/dL (12.0-15.0); Immature Grans, Automated 0.4 %; Lymphocytes # (A) 2.17 X 10*3/uL (0.90-5.00); Lymphocytes % (A) 44.6 %; MCH 27.9 pg (27.0-32.0); MCHC 29.3 g/dL (32.0-37.0); MCV 95.3 fL (80.0-97.0); Mean Platelet Volume 10.7 fL (9.5-12.2); Monocytes # (A) 0.89 X 10*3/uL (0.20-1.00); Monocytes % (A) 18.3 %; NRBC Per 100 WBC 0 /100 WBCS (0.0-0.0); Neutrophils # (A) 1.68 X 10*3/uL (1.80-7.70); Neutrophils % (A) 34.5 %; Platelet Count 219 X 10*3/uL (140-440); RBC 2.76 X 10*6/uL (4.10-5.20); RDW 17.9 % (11.5-14.5); WBC 4.87 X 10*3/uL (4.50-10.00)
[2021-05-29] MEDS: PANTOPRAZOLE 40 MG/10 ML VIAL IVP SCH (10:21)
[2021-05-29] MEDS: ONDANSETRON 4 MG/2 ML VIAL IVP PRN (10:21)
[2021-05-29 10:26] LABS: African American GFR (CKD) 109.7 (60.0-200.0); Anion Gap 7.3 mmol/L (10.00-18.00); Blood Urea Nitrogen 5.5 mg/dL (9.0-27.0); Calcium 7.8 mg/dL (8.7-10.3); Carbon Dioxide 19.7 mmol/L (20.0-27.5); Non-African American GFR(CKD) 94.7 (60.0-200.0); Potassium 3.7 mmol/L (3.5-5.5)
--- NOTE | 2021-05-29 12:41 | P.CONS ---
History of Present Illness - Reason for Consult Consult date: 05/29/21 Abdominal pain, nausea vomiting, and diarrhea Requesting physician: Erick E Sheet - Chief Complaint abdominal pain - History of Present Illness This is 75-year-old female presented to the emergency room and admitted on 05/22/2021 with abdominal pain. It appears the patient has had multiple admissions with abdominal pain. She has surgical history including sigmoid zohreh ctomy with end colostomy for perforated diverticulitis which was performed for 421, reversal of colostomy on 10/26/2020, gastric bypass, cholecystectomy and hysterectomy. The patient states her pain is chronic on and believes it began likely after her last surgeries. She also states she has loose bowel movements up to 5-6 per day. She states they are nonbloody and no mucus. She denies any recent antibiotic use and states she takes Imodium at home 1-2 tablets daily without much improvement. During her last admission at the end of April she was supposed to undergo EGD and colonoscopy however during the procedure she had ventricular tachycardia and the procedure was aborted. She does have a history of atrial fibrillation not on any anticoagulation. C. difficile toxin was completed and that was negative. Patient has undergone EGD and colonoscopy in the past for workup for GI bleed. Patient had EGD and colonoscopy in September [address] Beasley. EGD showed 2 ulcerations at the anastomotic site of the Suzanna-en-Y without any active bleeding, colonoscopy showed scattered sigmoid di verticulosis with no evidence of colitis or neoplasm. She had a repeat EGD in December 2016 prior questionable GI bleed again 2 ulcerations are noted at the anastomotic site of the Suzanna-en-Y as well as a small hiatal hernia. She had a CT of the abdomen and pelvis on 05/22/2021 that shows previous bariatric surgery and sigmoid colon surgery. No evidence of a bowel obstruction noted first change compared to old exam. She again had a repeat CT of the abdomen and pelvis on 05/27/2021 that showed some mild pleural thickening of the sigmoid colon similar to old exam and could relate to some focal colitis. No bowel obstruction. Review of Systems REVIEW OF SYSTEMS: CARDIOPULMONARY: No chest pain or shortness of breath. Gastrointestinal: Abdominal pain left mid to lower quadrant near her incisional scar. No nausea or vomiting. No hematemesis, coffee-ground emesis. No rectal bleeding, or melena. Frequent loose stools 5-6 per day. GENITOURINARY: No dysuria or hematuria. MUSCULOSKELETAL: Reports normal range of motion., Joint pain. SKIN: No rashes. No jaundice. ENDOCRINE: No chills, fevers. No excessive weight gain or loss. No polydipsia or polyuria. PSYCHIATRIC: Unremarkable. NEUROLOGY: No change in mental status. Denies dizziness, headache. ENT: Vision unremarkable. CONSTITUTIONAL: No recent weight loss. No fever, chills, night sweats. Past Medical History Past Medical History: Atrial Fibrillation, Coronary Artery Disease (CAD), Cancer, Eye Disorder, GERD/Reflux, GI Bleed, Hearing Disorder / Deafness, Hypertension, Osteoarthritis (OA), Thyroid Disorder Additional Past Medical History / Comment(s): Peptic ulcer, chronic back pain, laryngeal cancer/tx-approx 20 yrs ago, head injury in 2012, cataract removal left eye. Pt states she has a hole in her left eardrum. 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 Past Surgical History: Bariatric Surgery, Bowel Resection, Cholecystectomy, Heart Catheterization, Heart Catheterization With Stent, Hysterectomy, Joint Replacement, Orthopedic Surgery Additional Past Surgical History / Comment(s): 1 stent, Bilateral knee replacement, left shoulder rotator cuff surgery, gastric bypass, D&C w/ corrective surgery, EGD/colonoscopy, laryngeal tumor removed 30 radiation treatments about 20 years ago, Ganglion Cysts both wrists.PAIN CLINIC INJECTIONS, colostomy 06/2020 w/ reversal in August Past Anesthesia/Blood Transfusion Reactions: No Reported Reaction Date of Last Stent Placement:: 2003 Past Psychological History: Anxiety, Depression, Panic Disorder Additional Psychological History / Comment(s): pt lives alone in an apartment. Smoking Status: Former smoker Past Alcohol Use History: None Reported Additional Past Alcohol Use History / Comment(s): Pt started smoking in 1959 and quit in 1982, 1ppd. Past Drug Use History: None Reported - Past Family History Mother Family Medical History: Cancer, Congestive Heart Failure (CHF), Diabetes Mellitus, Hypertension Additional Family Medical History / Comment(s): Mother passed at 93. Father Family Medical History: Myocardial Infarction (MN) Additional Family Medical History / Comment(s): Father of a MN at the age of 39 yrs. Sister(s) Family Medical History: Cancer Brother(s) Family Medical History: Cancer, Myocardial Infarction ([place]) Medications and Allergies Home Medications Medication Instructions Recorded Confirmed Type Cholecalciferol [Vitamin D3 (25 25 mcg PO DAILY #30 tablet 03/21/21 05/22/21 Rx Mcg = 1000 Iu)] Nitroglycerin Sl Tabs [Nitrostat] 0.4 mg SL Q5M PRN 04/15/21 05/22/21 History Gabapentin [Neurontin] 300 mg PO TID #90 cap 05/12/21 05/22/21 Rx Levothyroxine Sodium [Synthroid] 200 mcg PO DAILY #30 tab 05/12/21 05/22/21 Rx Metoprolol Tartrate [Lopressor] 100 mg PO Q12H 30 Days #120 tab 05/12/21 05/22/21 Rx Pantoprazole [Protonix] 40 mg PO DAILY #30 tab 05/12/21 05/22/21 Rx Losartan [Cozaar] 25 mg PO DAILY 05/22/21 05/22/21 History Multivitamins, Thera [Multivitamin 1 tab PO DAILY 05/22/21 05/22/21 History (formulary)] Allergies Allergy/AdvReac Type Severity Reaction Status Date / Time latex Allergy Unknown Verified 05/22/21 16:02 vancomycin Allergy Rash/Hives Verified 05/22/21 16:02 Physical Exam Vitals: Vital Signs Temp Pulse Resp BP Pulse Ox 05/29/21 05:00 98.2 F 72 18 124/73 94 L 05/28/21 20:25 97.8 F 63 16 148/79 96 05/28/21 11:41 97.6 F 63 18 115/58 97 Intake and Output 05/28/21 05/29/21 05/29/21 22:59 06:59 14:59 Intake Total 775 Balance 775 Intake: IV 775 Sodium Chloride 0.9% 1, 675 000 ml @ 75 mls/hr IV . [id number] [facility] Rx#:[id number] metroNIDAZOLE-NS PMX 500 100 mg In Saline 1 100ml.bag @ 100 mls/hr IVPB Q8HR [facility] Rx#:[id number] Other: Voiding Method Toilet Toilet # Voids 3 # Bowel Movements 2 Weight 55 kg General appearance: The patient is alert, oriented, appears in no acute d istress. HET: Head is normocephalic and atraumatic. Conjunctiva pink. Sclera anicteric. Neck: Supple without lymphadenopathy. Trachea midline. Heart: S1 S2. Regular rate and rhythm. Lungs: Clear to auscultation. Abdomen: Soft, tender to palpation left mid to lower quadrant over incisional scar, nondistended with bowel sounds. No guarding or rigidity. Skin: No rashes. No jaundice. Extremities: Normal skin color and turgor. No pedal edema. Neurological: No focal deficits. Alert and oriented x3. Results CBC & Chem 7: 05/29/21 05:16 05/29/21 05:16 Labs: Abnormal Lab Results - Last 24 Hours (Table) 05/28/21 05/28/21 05/28/21 Range/Units 07:21 07:21 07:21 WBC 4.35 L (4.50-10.00) X 10*3/uL RBC 2.54 L (4.10-5.20) X 10*6/uL Hgb 7.2 L (12.0-15.0) g/dL Hct 23.7 L (37.2-46.3) % MCHC 30.4 L (32.0-37.0) g/dL RDW 17.6 H (11.5-14.5) % Neutrophils # 1.34 L (1.80-7.70) X 10*3/uL Sodium 133 L (135-145) mmol/L Anion Gap 6.40 L (10.00-18.00) mmol/L BUN 6.1 L (9.0-27.0) mg/dL Creatinine 0.4 L (0.6-1.5) mg/dL Calcium 7.6 L (8.7-10.3) mg/dL Iron 10 L (50-170) ug/dL TIBC 129 L (228-460) ug/dL % Saturation 8.01 L (12.00-45.00) Transferrin 91.8 L (204.0-354.0) mg/dL Total Bilirubin <0.15 L (0.30-1.20) mg/dL Total Protein 4.1 L (6.2-8.2) g/dL Albumin 1.8 L (3.8-4.9) g/dL Albumin/Globulin Ratio 0.78 L (1.60-3.17) g/dL Comments: CT of the abdomen and pelvis on 05/22/2021 that shows previous bariatric surgery and sigmoid colon surgery. No evidence of a bowel obstruction noted first change compared to old exam. Repeat CT of the abdomen and pelvis on 05/27/2021 that showed some mild pleural thickening of the sigmoid colon similar to old exam and could relate to some focal colitis. No bowel obstruction. Assessment and Plan (1) Abdominal pain Narrative/Plan: 75-year-old female with a history of chronic abdominal pain status post multiple abdominal surgeries including Suzanna-en-Y epigastric bypass, cholecystectomy, hysterectomy, and sigmoid colectomy with end colostomy and lysis of adhesions on July 2020 by , then the patient had a reversal of the colostomy is 10/26/2020. She states she's had abdominal pain since her surgeries. It is at the incisional site. Apparently the patient may have been having some nausea and vomiting however states she has not been nauseated or vomiting at this time. Patient states her appetite has been good. She does have frequent loose stools 5-6 per day nonbloody, no mucus reported. Takes Imodium at home 1-2 tablets daily without much improvement. She has a history of GI bleed and underwent EGD and colonoscopy in September 2016 without any evidence of GI bleed. EGD did have findings of 2 ulcerations at the anastomotic site of the Suzanna-en-Y. Colonoscopy showed scattered sigmoid diverticulosis. She had a repeat EGD in December 2016 for questionable GI bleed showing 2 ulcerations again at the anastomotic site of the Suzanna-en-Y as well as a small hiatal hernia. She was supposed to undergo EGD and colonoscopy during her last admission at the end of April however she had ventricular tachycardia and the procedure was aborted. She is being followed by general surgery who may proceed with upper and lower endoscopy at this admission. Current Visit: Yes Status: Acute Code(s): R10.9 - UNSPECIFIED ABDOMINAL PAIN SNOMED Code(s): 12393891 (2) Chronic diarrhea Narrative/Plan: Stool studies ordered. C. difficile toxin was negative. Continue Questran twice a day, change lomotil to imodium 1-2 tablets QID scheduled. Current Visit: Yes Status: Acute Code(s): K52.9 - NONINFECTIVE GASTROENTERIT IS AND COLITIS, UNSPECIFIED SNOMED Code(s): 826882773 Plan: 1. Continue symptomatic and supportive care 2. Stool studies ordered 3. Continue Questran 4. Change Lomotil to Imodium 1-2 tablets every 6 hours [id number] 5. Await further recommendations from general surgery Thank you for this consultation, we will continue to follow. Thank you for the consultation, we will continue to follow. Dr. Benigno Beasley I agree with the dictator's note, documented as a scribe by Juliane Antony.
[2021-05-29] MEDS: LOPERAMIDE 2 MG CAP PO SCH ×3 (14:41→20:00)
--- NOTE | 2021-05-29 15:07 | P.PN ---
Subjective Progress Note Date: 05/29/21 CHIEF COMPLAINT: Abdominal pain HISTORY OF PRESENT ILLNESS: Patient still complaining of mid abdominal pain at incision site. She is still having diarrhea. Denies any black stools or blood in her stools. Stool occult for occult blood was negative. She had a computed tomography scan on May 27 that showed mild wall thickening of the sigmoid colon similar to old exam and could relate to some focal colitis. No bowel obstruction. Patient is on IV antibiotics. Afebrile WBC 4.87 hemoglobin 7.2 up to 7.7 platelets 219 iron low at 10 C. diff negative. Stool cultures negative Patient seen and examined with Dr. atkins PHYSICAL EXAM: VITAL SIGNS: Reviewed. GENERAL: Well-developed in no acute distress. HEENT: No sclera icterus. Extraocular movements grossly intact. Moist buccal mucosa. Head is atraumatic, normocephalic. ABDOMEN: Soft. Nondistended. Tenderness to palpation of lower mid abdomen at incision site. NEUROLOGIC: Alert and oriented. Cranial nerves II through XII grossly intact. ASSESSMENT: 1. Chronic abdominal pain 2. Diarrhea 3. Possible focal colitis noted on CAT scan PLAN: -Possible colonoscopy on if patient continues to have symptoms -Continue supportive care -Continue regular diet -Continue antibiotics Physician Dag Coater note has been reviewed by physician. Signing provider agrees with the documented findings, assessment, and plan of care. Objective - Vital Signs Vital signs: Vital Signs Temp 97.9 F 05/29/21 11:41 Pulse 64 05/29/21 11:41 Resp 18 05/29/21 11:41 BP 111/71 05/29/21 11:41 Pulse Ox 95 05/29/21 11:41 Intake & Output 05/28/21 05/29/21 05/29/21 18:59 06:59 18:59 Intake Total 775 Balance 775 Weight 55 kg Intake: IV 775 Sodium Chloride 0.9% 1, 675 000 ml @ 75 mls/hr IV . [id number] [facility] Rx#:[id number] metroNIDAZOLE-NS PMX 500 100 mg In Saline 1 100ml.bag @ 100 mls/hr IVPB Q8HR [facility] Rx#:[id number] Other: Voiding Method Toilet Toilet Toilet # Voids 3 # Bowel Movements 2 - Labs CBC & Chem 7: 05/29/21 05:16 05/29/21 05:16 Labs: Abnormal Lab Results - Last 24 Hours (Table) 05/28/21 05/29/21 05/29/21 Range/Units 07:21 05:16 05:16 RBC 2.76 L (4.10-5.20) X 10*6/uL Hgb 7.7 L (12.0-15.0) g/dL Hct 26.3 L (37.2-46.3) % MCHC 29.3 L (32.0-37.0) g/dL RDW 17.9 H (11.5-14.5) % Neutrophils # 1.68 L (1.80-7.70) X 10*3/uL Sodium 134 L (135-145) mmol/L Carbon Dioxide 19.7 L (20.0-27.5) mmol/L Anion Gap 7.30 L (10.00-18.00) mmol/L BUN 5.5 L (9.0-27.0) mg/dL Creatinine 0.5 L (0.6-1.5) mg/dL BUN/Creatinine Ratio 11.00 L (12.00-20.00) Ratio Calcium 7.8 L (8.7-10.3) mg/dL Iron 10 L (50-170) ug/dL TIBC 129 L (228-460) ug/dL % Saturation 8.01 L (12.00-45.00) Transferrin 91.8 L (204.0-354.0) mg/dL
--- NOTE | 2021-05-29 16:32 | P.PN ---
Subjective Patient is a 75-year-old female with a known history of paroxysmal atrial fibrillation on anticoagulation with Eliquis, coronary artery disease with history of stent placement, GERD, hypertension, chronic back pain, laryngeal cancer status post treatment 20 years ago, osteoarthritis, hearing disorder/deafness and hypothyroidism and previous history of smoking, anxiety/depression and panic disorder and other multiple medical problems presents to ER with complaints of diarrhea and abdominal pain mainly lower half and also experiencing 3 episodes of vomiting. Patient felt nauseous. She is also having decreased appetite. Patient presents to ER. Denied any complaints of chest pain or shortness breath. Does have nausea and episodes of vomiting. No headache or dizziness or lightheadedness. Denies any dysuria or hematuria. Denies any hematemesis or melena. Patient has been afebrile on admission. Pulse ox 99% on room air. On admission CT of the abdomen pelvis was done which showed intrasclerotic vascular disease. Previous bariatric surgery and sigmoid colon surgery. No evidence of bowel obstruction. No adverse change compared to old exam. Scoliotic deformity with spinal stenosis L4-L5 spondylosis. No change. EKG showed left axis deviation and left bundle branch block. And atrial fibrillation with heart rate 78. Laboratory showed WBC 4.6 hemoglobin 10.0 and platelets 360 Sodium 132 potassium 3.7 chloride 106 bicarb is 23 BUN 12 and creatinine 0.44 calcium 8.2 albumin 2.4 and lipase level is 21 Urinalysis is cloudy nitrite positive and small leukoesterase with elevated WBCs and RBCs less than 1. COVID-19 PCR not detected. Patient was recently admitted to the hospital due to altered mental status/encephalopathy and suspected due to narcotic pain medications use. Neurological work-up has been negative. Patient was also complaining of blood in the stools. Patient was prepped for colonoscopy but procedure was aborted due to tachyarrhythmia. Seen by cardiology and was started on metoprolol. Patient is also on Eliquis for paroxysmal atrial fibrillation. Patient did improve clinically and was discharged home with home care. Subjective: I'm resume the care of the patient on 05/24/2021 This is a pleasant 75 years old female with multiple hospitalization, now presents with intractable nausea vomiting and abdominal pain with diarrhea suspicious for gastroenteritis also with some evidence of acute urinary tract infection. Also she had some fever yesterday of 100.1. Currently she is covered with ceftriaxone and Flagyl area stool studies and see this percent. Urine culture is pending. Also chief compressor station engineer on the case for her left bundle branch block and A. fib and currently she is on Eliquis 5 mg recommended by chief compressor station engineer, patient informed and she agrees to continue with it. Patient is eating 25% of her diet and discussed with bed side nurse to put her on liquid diet 05/25/2021 Patient is still have lower abdominal pain and diarrhea was not much difference is from yesterday after she was started on antibiotic. However no more fever only one episode 2 nights Ago. No vomiting and she tolerates liquid diet well. Stool study and C. diff are still pending however urine culture came back negative. Patient remains on ceftriaxone and Flagyl and Eliquis recommended by chief compressor station engineer Patient blood pressure is running good because of this I'm going to lower her normal saline down to 50 mL/h. 05/26/2021 pt states her diarrhea is improving from 10/day to twice yesterday and started becoming more formed , yesterday she got only one dose of cholestyramine, most likely pt is improving with antibiotics , she still has significant lower abd pain , surgery team think this is chronic pt stool lactoferrin is positive , stool culture is pending once culture is back, we may consider patient for discharge. Other than that her labs and hemodynamically stable and she is improving. Cardiology recommended no further workup and follow-up as an outpatient 05/27/2011 Patient vomited twice last night and she states that her bowel movement is loose again she still complaining of from increasing pain and tenderness, mainly in the lower abdomen but today also little more in the upper abdomen. There is also some mild guarding It looks like the patient under treated with pain management as she is on morphine 2 mg every 8 hours, we increased the dose to 4 mg every 8 hours and add Risco 5 mg when necessary. However with a repeat CT of the abdomen and pelvis with oral contrast only for a follow-up. She is eating 50-75% of her diet and we will repeat labs in the morning. Surgery team on the case C. diff is negative, she remains on ceftriaxone and Flagyl, stool lactoferrin is positive and stool culture is pending. 05/28/2021 Patient is still complaining from abdominal pain, diarrhea and vomiting. Patient states that she has chronic abdominal pain 5/10 however since admission has increased up to 90/10. She still have loose bowel movement like twice this morning, she still vomiting. He was some report of dyspnea but she was not tachypneic or dyspneic at rest when I saw her this morning with no basal crepitation. Chest x-ray showing atelectasis versus early infiltrate. But patient with no fever or leukocytosis. CT of the abdomen and pelvis yesterday showing possible left colitis and patient stool cultures came back negative although lactoferrin stool was positive. Also significantly her hemoglobin dropped today from 10 on admission down to 9.5 and 7.2 today. Therefore Eliquis started on admission was held, we placed her on Protonix from oral to IV once daily, also 2 anemia workup including occult blood in the stool and continue with gentle hydration of normal saline at 75 mL/h Also continue with antibiotics at [place] for respiratory and abdominal symptoms. C. diff is negative. Surgical team on the case 05/29/2021 Patient still reports nausea vomiting and diarrhea, or abdominal pain looks chronic, hemodynamically stable. GI service consult is appreciated they recommend Imodium and endoscopy Surgical team are planning for colonoscopy on if still symptomatic Patient remains on Flagyl, ceftriaxone, Questran and Imodium and today. Also she is on Eliquis home dose of 5 mg and normal saline at 75 mL/h Objective - Vital Signs Vital signs: Vital Signs Temp 98.2 F 05/29/21 05:00 Pulse 72 05/29/21 05:00 Resp 18 05/29/21 05:00 BP 124/73 05/29/21 05:00 Pulse Ox 94 L 05/29/21 05:00 Intake & Output 05/28/21 05/29/21 05/29/21 18:59 06:59 18:59 Intake Total 775 Balance 775 Weight 55 kg Intake: IV 775 Sodium Chloride 0.9% 1, 675 000 ml @ 75 mls/hr IV . [id number] ALFREDO Rx#:[id number]-NS PMX 500 100 mg In Saline 1 100ml.bag @ 100 mls/hr IVPB Q8HR ALFREDO Rx#:[id number] Other: Voiding Method Toilet Toilet Toilet # Voids 3 # Bowel Movements 2 - Exam GENERAL: The patient is alert and oriented x3, not in any acute distress. Well developed, well nourished. HEENT: Pupils are round and equally reacting to light. EOMI. No scleral icterus. No conjunctival pallor. Normocephalic, atraumatic. No pharyngeal erythema. No thyromegaly. CARDIOVASCULAR: S1 and S2 present. No murmurs, rubs, or gallops. PULMONARY: Chest is clear to auscultation, no wheezing or crackles. - ABDOMEN: Soft, periumbilical tenderness with no rebound tenderness with little guarding, nondistended, normoactive bowel sounds. No palpable organomegaly. MUSCULOSKELETAL: No joint swelling or deformity. EXTREMITIES: No cyanosis, clubbing, or pedal edema. NEUROLOGICAL: Gross neurological examination did not reveal any focal deficits. SKIN: No rashes. no petechiae. - Labs CBC & Chem 7: 05/29/21 05:16 05/29/21 05:16 Labs: Abnormal Lab Results - Last 24 Hours (Table) 05/28/21 05/28/21 05/28/21 Range/Units 07:21 07:21 07:21 WBC 4.35 L (4.50-10.00) X 10*3/uL RBC 2.54 L (4.10-5.20) X 10*6/uL Hgb 7.2 L (12.0-15.0) g/dL Hct 23.7 L (37.2-46.3) % MCHC 30.4 L (32.0-37.0) g/dL RDW 17.6 H (11.5-14.5) % Neutrophils # 1.34 L (1.80-7.70) X 10*3/uL Sodium 133 L (135-145) mmol/L Anion Gap 6.40 L (10.00-18.00) mmol/L BUN 6.1 L (9.0-27.0) mg/dL Creatinine 0.4 L (0.6-1.5) mg/dL Calcium 7.6 L (8.7-10.3) mg/dL Iron 10 L (50-170) ug/dL TIBC 129 L (228-460) ug/dL % Saturation 8.01 L (12.00-45.00) Transferrin 91.8 L (204.0-354.0) mg/dL Total Bilirubin <0.15 L (0.30-1.20) mg/dL Total Protein 4.1 L (6.2-8.2) g/dL Albumin 1.8 L (3.8-4.9) g/dL Albumin/Globulin Ratio 0.78 L (1.60-3.17) g/dL 05/29/21 Range/Units 05:16 WBC (4.50-10.00) X 10*3/uL RBC 2.76 L (4.10-5.20) X 10*6/uL Hgb 7.7 L (12.0-15.0) g/dL Hct 26.3 L (37.2-46.3) % MCHC 29.3 L (32.0-37.0) g/dL RDW 17.9 H (11.5-14.5) % Neutrophils # 1.68 L (1.80-7.70) X 10*3/uL Sodium (135-145) mmol/L Anion Gap (10.00-18.00) mmol/L BUN (9.0-27.0) mg/dL Creatinine (0.6-1.5) mg/dL Calcium (8.7-10.3) mg/dL Iron (50-170) ug/dL TIBC (228-460) ug/dL % Saturation (12.00-45.00) Transferrin (204.0-354.0) mg/dL Total Bilirubin (0.30-1.20) mg/dL Total Protein (6.2-8.2) g/dL Albumin (3.8-4.9) g/dL Albumin/Globulin Ratio (1.60-3.17) g/dL Assessment and Plan Assessment: Mostly infectious versus reactive gastroenteritis, with Intractable nausea and vomiting and diarrhea. CT showing focal descending colitis atelectasis versus early pneumonia Acute urinary tract infection ruled out. Culture is negative and patient is as symptomatic Abdominal pain- acute on chronic. Atypical chest pain. Cardiac causes ruled out. Chest pain resolved Left bundle branch block Paroxysmal atrial fibrillation on anticoagulation with Eliquis.(Held for anemia) Nonischemic cardiomyopathy ejection fraction 35 to 40% History of bowel resection and bariatric surgery Hypertension Hyperlipidemia GI and DVT prophylaxis patient is already on Eliquis Plan: This is a pleasant 75 years old female who presents with UTI/gastroenteritis and left bundle-branch block. Continue with normal saline 75 mm/h, continue with ceftriaxone and Flagyl GI consult Possible colonoscopy on Cardiology team on Case and the recommended Eliquis (hold for colonoscopy and ) for A. fib and patient agrees. Rope Laying Machine Operator recommended follow-up as an outpatient. If hemoglobin is stable, resume therapeutic dose of anticoagulation, hold known to make sure hemoglobin is a stable Labs and medication were reviewed.. Continue same treatment. Continue with symptomatic treatment. Resume home medication. Monitor lytes and vitals. DVT and GI prophylaxis. Further recommendations as per clinical course of the patient DVT prophylaxis: Eliquis (held for colonoscopy on ). In the meantime continue with subcutaneous heparin. GI Prophylaxis: Ppi
[2021-05-29] MEDS: HEPARIN SODIUM,PORCINE/PF 5,000 UNIT/0.5 ML SYRINGE SQ SCH (20:01)
[2021-05-30] MEDS: HYDROcodone/APAP 5-325MG 1 EACH TAB PO PRN (02:51)
[2021-05-30] MEDS: MORPHINE SULFATE 4 MG/ML SYRINGE IV PRN ×5 (04:32→23:35)
[2021-05-30] MEDS: METOPROLOL TARTRATE 50 MG TAB PO SCH ×2 (06:05→17:36)
[2021-05-30] MEDS: LEVOTHYROXINE 100 MCG TAB PO SCH (06:06)
[2021-05-30] MEDS ORDERED: LOPERAMIDE 2 MG CAP PO PRN (08:03)
[2021-05-30] MEDS: metroNIDAZOLE-NS PMX 500 MG in SALINE 1 100ML.BAG IVPB SCH ×3 (08:10→23:35)
[2021-05-30] MEDS: PANTOPRAZOLE 40 MG/10 ML VIAL IVP SCH (08:11)
[2021-05-30] MEDS: CHOLECALCIFEROL 25 MCG (1000 IU) TABLET PO SCH (08:11)
[2021-05-30] MEDS: GABAPENTIN 100 MG CAP PO SCH ×3 (08:11→21:03)
[2021-05-30] MEDS: MULTIVITAMINS, THERA 1 EACH TAB PO SCH (08:11)
[2021-05-30] MEDS: HEPARIN SODIUM,PORCINE/PF 5,000 UNIT/0.5 ML SYRINGE SQ SCH ×2 (08:11→19:08)
[2021-05-30] MEDS: LOSARTAN 25 MG TAB PO SCH (08:11)
[2021-05-30] MEDS: CHOLESTYRAMINE (WITH SUGAR) 4 GM PACKET PO SCH ×2 (08:11→17:36)
--- NOTE | 2021-05-30 12:47 | P.PN ---
Subjective Patient is a 75-year-old female with a known history of paroxysmal atrial fibrillation on anticoagulation with Eliquis, coronary artery disease with history of stent placement, GERD, hypertension, chronic back pain, laryngeal cancer status post treatment 20 years ago, osteoarthritis, hearing disorder/deafness and hypothyroidism and previous history of smoking, anxiety/depression and panic disorder and other multiple medical problems presents to ER with complaints of diarrhea and abdominal pain mainly lower half and also experiencing 3 episodes of vomiting. Patient felt nauseous. She is also having decreased appetite. Patient presents to ER. Denied any complaints of chest pain or shortness breath. Does have nausea and episodes of vomiting. No headache or dizziness or lightheadedness. Denies any dysuria or hematuria. Denies any hematemesis or melena. Patient has been afebrile on admission. Pulse ox 99% on room air. On admission CT of the abdomen pelvis was done which showed intrasclerotic vascular disease. Previous bariatric surgery and sigmoid colon surgery. No evidence of bowel obstruction. No adverse change compared to old exam. Scoliotic deformity with spinal stenosis L4-L5 spondylosis. No change. EKG showed left axis deviation and left bundle branch block. And atrial fibrillation with heart rate 78. Laboratory showed WBC 4.6 hemoglobin 10.0 and platelets 360 Sodium 132 potassium 3.7 chloride 106 bicarb is 23 BUN 12 and creatinine 0.44 calcium 8.2 albumin 2.4 and lipase level is 21 Urinalysis is cloudy nitrite positive and small leukoesterase with elevated WBCs and RBCs less than 1. COVID-19 PCR not detected. Patient was recently admitted to the hospital due to altered mental status/encephalopathy and suspected due to narcotic pain medications use. Neurological work-up has been negative. Patient was also complaining of blood in the stools. Patient was prepped for colonoscopy but procedure was aborted due to tachyarrhythmia. Seen by cardiology and was started on metoprolol. Patient is also on Eliquis for paroxysmal atrial fibrillation. Patient did improve clinically and was discharged home with home care. Subjective: I'm resume the care of the patient on 05/24/2021 This is a pleasant 75 years old female with multiple hospitalization, now presents with intractable nausea vomiting and abdominal pain with diarrhea suspicious for gastroenteritis also with some evidence of acute urinary tract infection. Also she had some fever yesterday of 100.1. Currently she is covered with ceftriaxone and Flagyl area stool studies and see this percent. Urine culture is pending. Also cupola operator insulation on the case for her left bundle branch block and A. fib and currently she is on Eliquis 5 mg recommended by cupola operator insulation, patient informed and she agrees to continue with it. Patient is eating 25% of her diet and discussed with bed side nurse to put her on liquid diet 05/25/2021 Patient is still have lower abdominal pain and diarrhea was not much difference is from yesterday after she was started on antibiotic. However no more fever only one episode 2 nights Ago. No vomiting and she tolerates liquid diet well. Stool study and C. diff are still pending however urine culture came back negative. Patient remains on ceftriaxone and Flagyl and Eliquis recommended by cupola operator insulation Patient blood pressure is running good because of this I'm going to lower her normal saline down to 50 mL/h. 05/26/2021 pt states her diarrhea is improving from 10/day to twice yesterday and started becoming more formed , yesterday she got only one dose of cholestyramine, most likely pt is improving with antibiotics , she still has significant lower abd pain , surgery team think this is chronic pt stool lactoferrin is positive , stool culture is pending once culture is back, we may consider patient for discharge. Other than that her labs and hemodynamically stable and she is improving. Cardiology recommended no further workup and follow-up as an outpatient 05/27/2011 Patient vomited twice last night and she states that her bowel movement is loose again she still complaining of from increasing pain and tenderness, mainly in the lower abdomen but today also little more in the upper abdomen. There is also some mild guarding It looks like the patient under treated with pain management as she is on morphine 2 mg every 8 hours, we increased the dose to 4 mg every 8 hours and add Bellamy 5 mg when necessary. However with a repeat CT of the abdomen and pelvis with oral contrast only for a follow-up. She is eating 50-75% of her diet and we will repeat labs in the morning. Surgery team on the case C. diff is negative, she remains on ceftriaxone and Flagyl, stool lactoferrin is positive and stool culture is pending. 05/28/2021 Patient is still complaining from abdominal pain, diarrhea and vomiting. Patient states that she has chronic abdominal pain 5/10 however since admission has increased up to 90/10. She still have loose bowel movement like twice this morning, she still vomiting. He was some report of dyspnea but she was not tachypneic or dyspneic at rest when I saw her this morning with no basal crepitation. Chest x-ray showing atelectasis versus early infiltrate. But patient with no fever or leukocytosis. CT of the abdomen and pelvis yesterday showing possible left colitis and patient stool cultures came back negative although lactoferrin stool was positive. Also significantly her hemoglobin dropped today from 10 on admission down to 9.5 and 7.2 today. Therefore Eliquis started on admission was held, we placed her on Protonix from oral to IV once daily, also 2 anemia workup including occult blood in the stool and continue with gentle hydration of normal saline at 75 mL/h Also continue with antibiotics at [place] for respiratory and abdominal symptoms. C. diff is negative. Surgical team on the case 05/29/2021 Patient still reports nausea vomiting and diarrhea, or abdominal pain looks chronic, hemodynamically stable. GI service consult is appreciated they recommend Imodium and endoscopy Surgical team are planning for colonoscopy on if still symptomatic Patient remains on Flagyl, ceftriaxone, Questran and Imodium and today. Also she is on Eliquis home dose of 5 mg and normal saline at 75 mL/h 05/30/2021 Patient still complaining of from diarrhea, nausea vomiting and abdominal pain She is hemodynamically stable Repeat hemoglobin is pending Plan for possible colonoscopy on She remains on subcu heparin GI and surgery teams on the case Objective - Vital Signs Vital signs: Vital Signs Temp 98 F 05/30/21 08:15 Pulse 76 05/30/21 08:15 Resp 20 05/30/21 08:15 BP 150/56 05/30/21 08:15 Pulse Ox 95 05/30/21 04:35 Intake & Output 05/29/21 05/30/21 05/30/21 18:59 06:59 18:59 Intake Total 200 Balance 200 Weight 53.5 kg Intake: Oral 200 Other: Voiding Method Toilet Toilet # Voids 2 1 - Exam GENERAL: The patient is alert and oriented x3, not in any acute distress. Well developed, well nourished. HEENT: Pupils are round and equally reacting to light. EOMI. No scleral icterus. No conjunctival pallor. Normocephalic, atraumatic. No pharyngeal erythema. No thyromegaly. CARDIOVASCULAR: S1 and S2 present. No murmurs, rubs, or gallops. PULMONARY: Chest is clear to auscultation, no wheezing or crackles. - ABDOMEN: Soft, periumbilical tenderness with no rebound tenderness with little guarding, nondistended, normoactive bowel sounds. No palpable organomegaly. MUSCULOSKELETAL: No joint swelling or deformity. EXTREMITIES: No cyanosis, clubbing, or pedal edema. NEUROLOGICAL: Gross neurological examination did not reveal any focal deficits. SKIN: No rashes. no petechiae. - Labs CBC & Chem 7: 05/29/21 05:16 05/29/21 05:16 Labs: Abnormal Lab Results - Last 24 Hours (Table) 05/24/21 Range/Units 16:50 Stool Calprotectin >3,000.0 H (<50) mcg/g Microbiology - Last 24 Hours (Table) 05/24/21 16:50 Stool Culture - Final Stool Assessment and Plan Assessment: Mostly infectious versus reactive gastroenteritis, with Intractable nausea and vomiting and diarrhea. CT showing focal descending colitis atelectasis versus early pneumonia Acute urinary tract infection ruled out. Culture is negative and patient is as symptomatic Abdominal pain- acute on chronic. Atypical chest pain. Cardiac causes ruled out. Chest pain resolved Left bundle branch block Paroxysmal atrial fibrillation on anticoagulation with Eliquis.(Held for anemia) Nonischemic cardiomyopathy ejection fraction 35 to 40% History of bowel resection and bariatric surgery Hypertension Hyperlipidemia GI and DVT prophylaxis patient is already on Eliquis Plan: This is a pleasant 75 years old female who presents with UTI/gastroenteritis and left bundle-branch block. Continue with normal saline 75 mm/h, continue with ceftriaxone and Flagyl GI consult Possible colonoscopy on Cardiology team on Case and the recommended Eliquis (hold for colonoscopy and ) for A. fib and patient agrees. Supervisor Meter Shop recommended follow-up as an outpatient. If hemoglobin is stable, resume therapeutic dose of anticoagulation, hold known to make sure hemoglobin is a stable Labs and medication were reviewed.. Continue same treatment. Continue with symptomatic treatment. Resume home medication. Monitor lytes and vitals. DVT and GI prophylaxis. Further recommendations as per clinical course of the patient DVT prophylaxis: Eliquis (held for colonoscopy on ). In the meantime continue with subcutaneous heparin. GI Prophylaxis: Ppi
[2021-05-30 14:03] LABS: Anisocytosis Slight; HCT 27.7 % (34.0-46.0); HGB 8.1 gm/dL (11.4-16.0); Hypochromasia Marked; MCH 28.8 pg (25.0-35.0); MCHC 29.4 g/dL (31.0-37.0); Macrocytosis Slight; Mean Platelet Volume 8.2; Platelet Count 280 k/uL (150-450); RBC 2.83 m/uL (3.80-5.40); RDW 17.2 % (11.5-15.5); WBC 6.5 k/uL (3.8-10.6)
[2021-05-30 15:04] LABS: Cryptosporidium Antigen Negative (Negative)
[2021-05-30] MEDS: SODIUM CHLORIDE 0.9% 1,000 ML IV SCH (15:07)
--- NOTE | 2021-05-30 15:51 | P.PN ---
Subjective Progress Note Date: 05/30/21 CHIEF COMPLAINT: Abdominal pain HISTORY OF PRESENT ILLNESS: Patient still complaining of mid abdominal pain at incision site. She is still having diarrhea. Denies any black stools or blood in her stools. Stool occult for occult blood was negative. She had a computed tomography scan on May 27 that showed mild wall thickening of the sigmoid colon similar to old exam and could relate to some focal colitis. No bowel obstruction. Patient is on IV antibiotics. Afebrile WBC 4.87 hemoglobin 7.2 up to 7.7 platelets 219 iron low at 10 C. diff negative. Stool cultures negative so far Patient seen and examined with Dr. atkins PHYSICAL EXAM: VITAL SIGNS: Reviewed. GENERAL: Well-developed in no acute distress. HEENT: No sclera icterus. Extraocular movements grossly intact. Moist buccal mucosa. Head is atraumatic, normocephalic. ABDOMEN: Soft. Nondistended. Tenderness to palpation of lower mid abdomen at incision site. NEUROLOGIC: Alert and oriented. Cranial nerves II through XII grossly intact. ASSESSMENT: 1. Chronic abdominal pain 2. Diarrhea 3. Possible focal colitis noted on CAT scan PLAN: -Patient requesting colonoscopy to be completed by Dr. Beasley. Discussed case with GI service -Continue supportive care -Continue regular diet -Continue antibiotics Physician Rn Dermatology note has been reviewed by physician. Signing provider agrees with the documented findings, assessment, and plan of care. Objective - Vital Signs Vital signs: Vital Signs Temp 98.7 F 05/30/21 12:14 Pulse 70 05/30/21 12:14 Resp 18 05/30/21 12:14 BP 147/60 05/30/21 12:14 Pulse Ox 98 05/30/21 12:14 Intake & Output 05/29/21 05/30/21 05/30/21 18:59 06:59 18:59 Intake Total 200 Balance 200 Weight 53.5 kg Intake: Oral 200 Other: Voiding Method Toilet Toilet # Voids 2 1 - Labs CBC & Chem 7: 05/30/21 13:17 05/29/21 05:16 Labs: Abnormal Lab Results - Last 24 Hours (Table) 05/30/21 Range/Units 13:17 RBC 2.83 L (3.80-5.40) m/uL Hgb 8.1 L (11.4-16.0) gm/dL Hct 27.7 L (34.0-46.0) % MCHC 29.4 L (31.0-37.0) g/dL RDW 17.2 H (11.5-15.5) % Microbiology - Last 24 Hours (Table) 05/29/21 18:00 Stool Culture - Preliminary Stool 05/24/21 16:50 Stool Culture - Final Stool
--- NOTE | 2021-05-30 16:00 | P.PN ---
Subjective Progress Note Date: 05/30/21 Principal diagnosis: Abdominal pain, diarrhea Patient seen today as a follow-up with complaints of abdominal pain and diarrhea. Patient has had chronic abdominal pain and diarrhea since her colectomy with colostomy in July of last year. She underwent reversal in October 2020 states then she has been having intermittent abdominal pain since then. She's had multiple hospitalizations. She still continues that she has abdominal pain and diarrhea anywhere from 2-3 times a day to 5-6. Stool studies including stool culture have been negative. The patient is scheduled to undergo colonoscopy with Dr. Burt , however patient is requesting gastroenterology to do her colonoscopy. Patient denies any blood in her stool. Globin stable at 8.1. She's been afebrile. Objective - Vital Signs Vital signs: Vital Signs Temp 98 F 05/30/21 08:15 Pulse 76 05/30/21 08:15 Resp 20 05/30/21 08:15 BP 150/56 05/30/21 08:15 Pulse Ox 95 05/30/21 04:35 Intake & Output 05/29/21 05/30/21 05/30/21 18:59 06:59 18:59 Intake Total 200 Balance 200 Weight 53.5 kg Intake: Oral 200 Other: Voiding Method Toilet Toilet # Voids 2 1 - Exam General appearance: The patient is alert, oriented, appears in no acute distress. HET: Head is normocephalic and atraumatic. Conjunctiva pink. Sclera anicteric. Neck: Supple without lymphadenopathy. Abdomen: Soft, diffuse tenderness, nondistended with bowel sounds. No guarding or rigidity. Extremities: Normal skin color and turgor. No pedal edema Skin: No rashes, no jaundice Neurological: No focal deficits. Alert and oriented x3. - Labs CBC & Chem 7: 05/30/21 13:17 05/29/21 05:16 Labs: Abnormal Lab Results - Last 24 Hours (Table) 05/24/21 05/29/21 05/29/21 Range/Units 16:50 05:16 05:16 RBC 2.76 L (4.10-5.20) X 10*6/uL Hgb 7.7 L (12.0-15.0) g/dL Hct 26.3 L (37.2-46.3) % MCHC 29.3 L (32.0-37.0) g/dL RDW 17.9 H (11.5-14.5) % Neutrophils # 1.68 L (1.80-7.70) X 10*3/uL Sodium 134 L (135-145) mmol/L Carbon Dioxide 19.7 L (20.0-27.5) mmol/L Anion Gap 7.30 L (10.00-18.00) mmol/L BUN 5.5 L (9.0-27.0) mg/dL Creatinine 0.5 L (0.6-1.5) mg/dL BUN/Creatinine Ratio 11.00 L (12.00-20.00) Ratio Calcium 7.8 L (8.7-10.3) mg/dL Stool Calprotectin >3,000.0 H (<50) mcg/g Microbiology - Last 24 Hours (Table) 05/24/21 16:50 Stool Culture - Final Stool Assessment and Plan (1) Abdominal pain Narrative/Plan: 75-year-old female with a history of chronic abdominal pain status post multiple abdominal surgeries including Suzanna-en-Y epigastric bypass, cholecystectomy, hysterectomy, and sigmoid colectomy with end colostomy and lysis of adhesions on July 2020 by , then the patient had a reversal of the colostomy is 10/26/2020. She states she's had abdominal pain since her surgeries. It is at the incisional site. Apparently the patient may have been having some nausea and vomiting however states she has not been nauseated or vomiting at this time. Patient states her appetite has been good. She does have frequent loose stools 5-6 per day nonbloody, no mucus reported. Takes Imodium at home 1-2 tablets daily without much improvement. She has a history of GI bleed and underwent EGD and colonoscopy in September 2016 without any evidence of GI bleed. EGD did have findings of 2 ulcerations at the anastomotic site of the Suzanna-en-Y. Colonoscopy showed scattered sigmoid diverticulosis. She had a repeat EGD in December 2016 for questionable GI bleed showing 2 ulcerations again at the anastomotic site of the Suzanna-en-Y as well as a small hiatal hernia. She was supposed to undergo EGD and colonoscopy during her last admission at the end of April however she had ventricular tachycardia and the procedure was aborted. She is being followed by general surgery who may proceed with upper and lower endoscopy at this admission. Current Visit: Yes Status: Acute Code(s): R10.9 - UNSPECIFIED ABDOMINAL PAIN SNOMED Code(s): 04874679 (2) Chronic diarrhea Narrative/Plan: Stool studies ordered. C. difficile toxin was negative. Continue Questran twice a day, change lomotil to imodium 1-2 tablets QID scheduled. Current Visit: Yes Status: Acute Code(s): K52.9 - NONINFECTIVE GASTROENTERITIS AND COLITIS, UNSPECIFIED SNOMED Code(s): 973337666 Plan: 1. Continue symptomatic and supportive care 2. Stool studies reviewed and are negative 3. Continue Questran 4. Will change Imodium back to as needed as we are going to proceed with colonoscopy 5. Start patient clear liquid diet tomorrow morning, nothing by mouth after midnight on 6. Patient requesting gastroenterology to proceed with colonoscopy, patient will be scheduled for colonoscopy this Saturday Thank you for this consultation, we will continue to follow. Thank you for the consultation, we will continue to follow. Dr. Benigno Beasley I agree with the dictator's note, documented as a scribe by Juliane Antony.
[2021-05-31] MEDS: MORPHINE SULFATE 4 MG/ML SYRINGE IV PRN ×5 (04:09→22:32)
[2021-05-31] MEDS: METOPROLOL TARTRATE 50 MG TAB PO SCH ×2 (06:09→17:29)
[2021-05-31] MEDS: LEVOTHYROXINE 100 MCG TAB PO SCH (06:09)
[2021-05-31] MEDS: HYDROcodone/APAP 5-325MG 1 EACH TAB PO PRN (06:14)
[2021-05-31] MEDS: SODIUM CHLORIDE 0.9% 1,000 ML IV SCH ×4 (07:45→18:27)
[2021-05-31] MEDS: metroNIDAZOLE-NS PMX 500 MG in SALINE 1 100ML.BAG IVPB SCH ×3 (08:33→23:15)
[2021-05-31] MEDS: GABAPENTIN 100 MG CAP PO SCH ×3 (08:35→21:09)
[2021-05-31] MEDS: LOSARTAN 25 MG TAB PO SCH (08:35)
[2021-05-31] MEDS: MULTIVITAMINS, THERA 1 EACH TAB PO SCH (08:35)
[2021-05-31] MEDS: PANTOPRAZOLE 40 MG/10 ML VIAL IVP SCH (08:35)
[2021-05-31] MEDS: CHOLECALCIFEROL 25 MCG (1000 IU) TABLET PO SCH (08:35)
[2021-05-31] MEDS: HEPARIN SODIUM,PORCINE/PF 5,000 UNIT/0.5 ML SYRINGE SQ SCH (08:36)
[2021-05-31] MEDS: CHOLESTYRAMINE (WITH SUGAR) 4 GM PACKET PO SCH (10:24)
[2021-05-31 11:18] LABS: African American GFR (CKD) 111.9 (60.0-200.0); Anion Gap 7.7 mmol/L (10.00-18.00); BUN/Creat Ratio 11.51 Ratio (12.00-20.00); Blood Urea Nitrogen 5.4 mg/dL (9.0-27.0); Calcium 7.3 mg/dL (8.7-10.3); Carbon Dioxide 18.9 mmol/L (20.0-27.5); Non-African American GFR(CKD) 96.6 (60.0-200.0); Potassium 3.5 mmol/L (3.5-5.5)
[2021-05-31 12:49] LABS: HCT 22.3 % (37.2-46.3); HGB 6.6 g/dL (12.0-15.0); MCH 27.4 pg (27.0-32.0); MCHC 29.6 g/dL (32.0-37.0); MCV 92.5 fL (80.0-97.0); Mean Platelet Volume 10.9 fL (9.5-12.2); NRBC Per 100 WBC 0 /100 WBCS (0.0-0.0); Platelet Count 243 X 10*3/uL (140-440); RBC 2.41 X 10*6/uL (4.10-5.20); RDW 18.3 % (11.5-14.5); WBC 4.64 X 10*3/uL (4.50-10.00)
[2021-05-31 12:50] LABS: Basophils # (M) 0.14 X 10*3/uL (0.00-0.10); Eosinophils # (M) 0.14 X 10*3/uL (0.04-0.35); Lymphocytes # (M) 1.81 X 10*3/uL (0.90-5.00); Monocytes # (M) 0.28 X 10*3/uL (0.20-1.00); Neutrophils # (M) 2.27 X 10*3/uL (2.00-8.90); Neutrophils % (M) 49 %
--- NOTE | 2021-05-31 13:07 | P.PN ---
Subjective Patient is a 75-year-old female with a known history of paroxysmal atrial fibrillation on anticoagulation with Eliquis, coronary artery disease with history of stent placement, GERD, hypertension, chronic back pain, laryngeal cancer status post treatment 20 years ago, osteoarthritis, hearing disorder/deafness and hypothyroidism and previous history of smoking, anxiety/depression and panic disorder and other multiple medical problems presents to ER with complaints of diarrhea and abdominal pain mainly lower half and also experiencing 3 episodes of vomiting. Patient felt nauseous. She is also having decreased appetite. Patient presents to ER. Denied any complaints of chest pain or shortness breath. Does have nausea and episodes of vomiting. No headache or dizziness or lightheadedness. Denies any dysuria or hematuria. Denies any hematemesis or melena. Patient has been afebrile on admission. Pulse ox 99% on room air. On admission CT of the abdomen pelvis was done which showed intrasclerotic vascular disease. Previous bariatric surgery and sigmoid colon surgery. No evidence of bowel obstruction. No adverse change compared to old exam. Scoliotic deformity with spinal stenosis L4-L5 spondylosis. No change. EKG showed left axis deviation and left bundle branch block. And atrial fibrillation with heart rate 78. Laboratory showed WBC 4.6 hemoglobin 10.0 and platelets 360 Sodium 132 potassium 3.7 chloride 106 bicarb is 23 BUN 12 and creatinine 0.44 calcium 8.2 albumin 2.4 and lipase level is 21 Urinalysis is cloudy nitrite positive and small leukoesterase with elevated WBCs and RBCs less than 1. COVID-19 PCR not detected. Patient was recently admitted to the hospital due to altered mental status/encephalopathy and suspected due to narcotic pain medications use. Neurological work-up has been negative. Patient was also complaining of blood in the stools. Patient was prepped for colonoscopy but procedure was aborted due to tachyarrhythmia. Seen by cardiology and was started on metoprolol. Patient is also on Eliquis for paroxysmal atrial fibrillation. Patient did improve clinically and was discharged home with home care. Subjective: I'm resume the care of the patient on 05/24/2021 This is a pleasant 75 years old female with multiple hospitalization, now presents with intractable nausea vomiting and abdominal pain with diarrhea suspicious for gastroenteritis also with some evidence of acute urinary tract infection. Also she had some fever yesterday of 100.1. Currently she is covered with ceftriaxone and Flagyl area stool studies and see this percent. Urine culture is pending. Also newspaper editor managing on the case for her left bundle branch block and A. fib and currently she is on Eliquis 5 mg recommended by newspaper editor managing, patient informed and she agrees to continue with it. Patient is eating 25% of her diet and discussed with bed side nurse to put her on liquid diet 05/25/2021 Patient is still have lower abdominal pain and diarrhea was not much difference is from yesterday after she was started on antibiotic. However no more fever only one episode 2 nights Ago. No vomiting and she tolerates liquid diet well. Stool study and C. diff are still pending however urine culture came back negative. Patient remains on ceftriaxone and Flagyl and Eliquis recommended by newspaper editor managing Patient blood pressure is running good because of this I'm going to lower her normal saline down to 50 mL/h. 05/26/2021 pt states her diarrhea is improving from 10/day to twice yesterday and started becoming more formed , yesterday she got only one dose of cholestyramine, most likely pt is improving with antibiotics , she still has significant lower abd pain , surgery team think this is chronic pt stool lactoferrin is positive , stool culture is pending once culture is back, we may consider patient for discharge. Other than that her labs and hemodynamically stable and she is improving. Cardiology recommended no further workup and follow-up as an outpatient 05/27/2011 Patient vomited twice last night and she states that her bowel movement is loose again she still complaining of from increasing pain and tenderness, mainly in the lower abdomen but today also little more in the upper abdomen. There is also some mild guarding It looks like the patient under treated with pain management as she is on morphine 2 mg every 8 hours, we increased the dose to 4 mg every 8 hours and add Placedo 5 mg when necessary. However with a repeat CT of the abdomen and pelvis with oral contrast only for a follow-up. She is eating 50-75% of her diet and we will repeat labs in the morning. Surgery team on the case C. diff is negative, she remains on ceftriaxone and Flagyl, stool lactoferrin is positive and stool culture is pending. 05/28/2021 Patient is still complaining from abdominal pain, diarrhea and vomiting. Patient states that she has chronic abdominal pain 5/10 however since admission has increased up to 90/10. She still have loose bowel movement like twice this morning, she still vomiting. He was some report of dyspnea but she was not tachypneic or dyspneic at rest when I saw her this morning with no basal crepitation. Chest x-ray showing atelectasis versus early infiltrate. But patient with no fever or leukocytosis. CT of the abdomen and pelvis yesterday showing possible left colitis and patient stool cultures came back negative although lactoferrin stool was positive. Also significantly her hemoglobin dropped today from 10 on admission down to 9.5 and 7.2 today. Therefore Eliquis started on admission was held, we placed her on Protonix from oral to IV once daily, also 2 anemia workup including occult blood in the stool and continue with gentle hydration of normal saline at 75 mL/h Also continue with antibiotics at [place] for respiratory and abdominal symptoms. C. diff is negative. Surgical team on the case 05/29/2021 Patient still reports nausea vomiting and diarrhea, or abdominal pain looks chronic, hemodynamically stable. GI service consult is appreciated they recommend Imodium and endoscopy Surgical team are planning for colonoscopy on if still symptomatic Patient remains on Flagyl, ceftriaxone, Questran and Imodium and today. Also she is on Eliquis home dose of 5 mg and normal saline at 75 mL/h 05/30/2021 Patient still complaining of from diarrhea, nausea vomiting and abdominal pain She is hemodynamically stable Repeat hemoglobin is pending Plan for possible colonoscopy on She remains on subcu heparin GI and surgery teams on the case 05/31/2021 Patient still complaining from lower abdominal pain and tenderness, she still h as diarrhea but vomiting stopped. She is hemodynamically stable, afebrile. No tachycardia. However her hemoglobin dropped 8.1 down to 6.6 today. We will do anemia workup and check occult blood in the stool. Hold subcutaneous heparin and continue with Protonix. Eliquis recommended by newspaper editor managing is still on hold. Cryptosporidium and Giardia test the stool came back negative. Start an ferrous sulfate Patient is to undergo colonoscopy tomorrow with GI team Objective - Vital Signs Vital signs: Vital Signs Temp 98.2 F 05/31/21 11:23 Pulse 57 L 05/31/21 11:23 Resp 20 05/31/21 11:23 BP 114/55 05/31/21 11:23 Pulse Ox 96 05/31/21 11:23 Intake & Output 05/30/21 05/31/21 05/31/21 18:59 06:59 18:59 Intake Total 1000 1400 Balance 1000 1400 Weight 54.5 kg Intake: IV 1000 900 Sodium Chloride 0.9% 1, 900 900 000 ml @ 75 mls/hr IV . [id number] [facility] Rx#:[id number] metroNIDAZOLE-NS PMX 500 100 mg In Saline 1 100ml.bag @ 100 mls/hr IVPB Q8HR [facility] Rx#:[id number] Intake, IV Titration 100 Amount metroNIDAZOLE-NS PMX 500 100 mg In Saline 1 100ml.bag @ 100 mls/hr IVPB Q8HR [facility] Rx#:[id number] Oral 400 Other: Voiding Method Toilet Toilet # Voids 1 - Exam GENERAL: The patient is alert and oriented x3, not in any acute distress. Well developed, well nourished. HEENT: Pupils are round and equally reacting to light. EOMI. No scleral icterus. No conjunctival pallor. Normocephalic, atraumatic. No pharyngeal erythema. No thyromegaly. CARDIOVASCULAR: S1 and S2 present. No murmurs, rubs, or gallops. PULMONARY: Chest is clear to auscultation, no wheezing or crackles. - ABDOMEN: Soft, periumbilical tenderness with no rebound tenderness with little guarding, nondistended, normoactive bowel sounds. No palpable organomegaly. MUSCULOSKELETAL: No joint swelling or deformity. EXTREMITIES: No cyanosis, clubbing, or pedal edema. NEUROLOGICAL: Gross neurological examination did not reveal any focal deficits. SKIN: No rashes. no petechiae. - Labs CBC & Chem 7: 05/31/21 07:22 05/31/21 07:22 Labs: Abnormal Lab Results - Last 24 Hours (Table) 05/30/21 05/31/21 Range/Units 13:17 07:22 RBC 2.83 L (3.80-5.40) m/uL Hgb 8.1 L (11.4-16.0) gm/dL Hct 27.7 L (34.0-46.0) % MCHC 29.4 L (31.0-37.0) g/dL RDW 17.2 H (11.5-15.5) % Carbon Dioxide 18.9 L (20.0-27.5) mmol/L Anion Gap 7.70 L (10.00-18.00) mmol/L BUN 5.4 L (9.0-27.0) mg/dL Creatinine 0.5 L (0.6-1.5) mg/dL BUN/Creatinine Ratio 11.51 L (12.00-20.00) Ratio Calcium 7.3 L (8.7-10.3) mg/dL Microbiology - Last 24 Hours (Table) 05/29/21 18:00 Stool Culture - Preliminary Stool Assessment and Plan Assessment: Mostly infectious versus reactive gastroenteritis, with Intractable nausea and vomiting and diarrhea. CT showing focal descending colitis Acute a drop in hemoglobin suspicious for GI bleed Abdominal pain- acute on chronic. Atypical chest pain. Cardiac causes ruled out. Chest pain resolved Left bundle branch block Paroxysmal atrial fibrillation on anticoagulation with Eliquis.(Held for anemia) Nonischemic cardiomyopathy ejection fraction 35 to 40% History of bowel resection and bariatric surgery Hypertension Hyperlipidemia GI and DVT prophylaxis patient is already on Eliquis Plan: This is a pleasant 75 years old female who presents with UTI/gastroenteritis and left bundle-branch block. Continue with normal saline 75 mm/h, continue with ceftriaxone and Flagyl GI consult Start an ferrous sulfate. Do anemia workup Planned for colonoscopy on Cardiology team on Case and the recommended Eliquis (hold for colonoscopy and ) for A. fib and patient agrees. Bander Operator recommended follow-up as an outpatient. If hemoglobin is stable, resume therapeutic dose of anticoagulation, hold known to make sure hemoglobin is a stable Labs and medication were reviewed.. Continue same treatment. Continue with symptomatic treatment. Resume home medication. Monitor lytes and vitals. DVT and GI prophylaxis. Further recommendations as per clinical course of the patient DVT prophylaxis: Eliquis (held for colonoscopy on ). Hold subcutaneous heparin for anemia and possible GI bleed GI Prophylaxis: Ppi
[2021-05-31] MEDS: FERROUS SULFATE 325 MG TAB PO SCH ×2 (13:30→17:29)
[2021-05-31] MEDS ORDERED: PEG 3350-NA SULF,BICARB,CL/KCL 4,000 ML BOTTLE PO ONE (14:00)
--- NOTE | 2021-05-31 14:19 | P.PN ---
Subjective Progress Note Date: 05/31/21 CHIEF COMPLAINT: Abdominal pain HISTORY OF PRESENT ILLNESS: Patient still complaining of mid abdominal pain at incision site. She is still having diarrhea. Denies any black stools or blood in her stools. Stool for occult blood was negative. She had a computed tomography scan on May 27 that showed mild wall thickening of the sigmoid colon similar to old exam and could relate to some focal colitis. No bowel obstruction. Patient is on IV antibiotics. Afebrile WBC 4.6 for hemoglobin is down from 8.1-6.6 platelets 243 C. diff negative. Stool cultures negative so far Patient seen and examined with Dr. atkins PHYSICAL EXAM: VITAL SIGNS: Reviewed. GENERAL: Well-developed in no acute distress. HEENT: No sclera icterus. Extraocular movements grossly intact. Moist buccal mucosa. Head is atraumatic, normocephalic. ABDOMEN: Soft. Nondistended. Tenderness to palpation of lower mid abdomen at incision site. NEUROLOGIC: Alert and oriented. Cranial nerves II through XII grossly intact. ASSESSMENT: 1. Chronic abdominal pain 2. Diarrhea 3. Possible focal colitis noted on CAT scan 4. Anemia PLAN: -Patient scheduled for colonoscopy with GI service tomorrow -Continue supportive care -Continue to monitor hemoglobin -Continue to monitor for signs and symptoms of bleeding -Continue antibiotics Physician Director Of Recruitment note has been reviewed by physician. Signing provider agrees with the documented findings, assessment, and plan of care. Objective - Vital Signs Vital signs: Vital Signs Temp 98.2 F 05/31/21 11:23 Pulse 57 L 05/31/21 11:23 Resp 20 05/31/21 11:23 BP 114/55 05/31/21 11:23 Pulse Ox 96 05/31/21 11:23 Intake & Output 05/30/21 05/31/21 05/31/21 18:59 06:59 18:59 Intake Total 1000 1400 Balance 1000 1400 Weight 54.5 kg Intake: IV 1000 900 Sodium Chloride 0.9% 1, 900 900 000 ml @ 75 mls/hr IV . [id number] [facility] Rx#:[id number] metroNIDAZOLE-NS PMX 500 100 mg In Saline 1 100ml.bag @ 100 mls/hr IVPB Q8HR [facility] Rx#:[id number] Intake, IV Titration 100 Amount metroNIDAZOLE-NS PMX 500 100 mg In Saline 1 100ml.bag @ 100 mls/hr IVPB Q8HR [facility] Rx#:[id number] Oral 400 Other: Voiding Method Toilet Toilet # Voids 1 - Labs CBC & Chem 7: 05/31/21 07:22 05/31/21 07:22 Labs: Abnormal Lab Results - Last 24 Hours (Table) 05/31/21 05/31/21 Range/Units 07:22 07:22 RBC 2.41 L (4.10-5.20) X 10*6/uL Hgb 6.6 L* (12.0-15.0) g/dL Hct 22.3 L (37.2-46.3) % MCHC 29.6 L (32.0-37.0) g/dL RDW 18.3 H (11.5-14.5) % Basophils # (Manual) 0.14 H (0.00-0.10) X 10*3/uL Carbon Dioxide 18.9 L (20.0-27.5) mmol/L Anion Gap 7.70 L (10.00-18.00) mmol/L BUN 5.4 L (9.0-27.0) mg/dL Creatinine 0.5 L (0.6-1.5) mg/dL BUN/Creatinine Ratio 11.51 L (12.00-20.00) Ratio Calcium 7.3 L (8.7-10.3) mg/dL Microbiology - Last 24 Hours (Table) 05/29/21 18:00 Stool Culture - Preliminary Stool
[2021-05-31] MEDS: ACETAMINOPHEN TAB 325 MG TAB PO PRN (15:22)
--- NOTE | 2021-05-31 15:41 | P.PN ---
Subjective Progress Note Date: 05/31/21 Principal diagnosis: Abdominal pain, diarrhea Patient seen today as a follow-up with complaints of abdominal pain and diarrhea. Patient has had chronic abdominal pain and diarrhea since her colectomy with colostomy in July of last year. She underwent reversal in October 2020 states then she has been having intermittent abdominal pain since then. She's had multiple hospitalizations. Patient states abdominal pain continues, worse today. Had 3-4 bowel movements today. Loose, nonbloody. She's been afebrile. The patient had requested a gastroenterology to proceed with her colonoscopy. We'll plan for tomorrow. Objective - Vital Signs Vital signs: Vital Signs Temp 98.2 F 05/31/21 11:23 Pulse 57 L 05/31/21 11:23 Resp 20 05/31/21 11:23 BP 114/55 05/31/21 11:23 Pulse Ox 96 05/31/21 11:23 Intake & Output 05/30/21 05/31/21 05/31/21 18:59 06:59 18:59 Intake Total 1000 1400 Balance 1000 1400 Weight 54.5 kg Intake: IV 1000 900 Sodium Chloride 0.9% 1, 900 900 000 ml @ 75 mls/hr IV . [id number] [facility] Rx#:[id number] metroNIDAZOLE-NS PMX 500 100 mg In Saline 1 100ml.bag @ 100 mls/hr IVPB Q8HR [facility] Rx#:[id number] Intake, IV Titration 100 Amount metroNIDAZOLE-NS PMX 500 100 mg In Saline 1 100ml.bag @ 100 mls/hr IVPB Q8HR [facility] Rx#:[id number] Oral 400 Other: Voiding Method Toilet Toilet # Voids 1 - Exam General appearance: The patient is alert, oriented, appears in no acute distress. HET: Head is normocephalic and atraumatic. Conjunctiva pink. Sclera anicteric. Neck: Supple without lymphadenopathy. Abdomen: Soft, diffuse tenderness, nondistended with bowel sounds. No guarding or rigidity. Extremities: Normal skin color and turgor. No pedal edema Skin: No rashes, no jaundice Neurological: No focal deficits. Alert and oriented x3. - Labs CBC & Chem 7: 05/31/21 07:22 05/31/21 07:22 Labs: Abnormal Lab Results - Last 24 Hours (Table) 05/31/21 05/31/21 Range/Units 07:22 07:22 RBC 2.41 L (4.10-5.20) X 10*6/uL Hgb 6.6 L* (12.0-15.0) g/dL Hct 22.3 L (37.2-46.3) % MCHC 29.6 L (32.0-37.0) g/dL RDW 18.3 H (11.5-14.5) % Basophils # (Manual) 0.14 H (0.00-0.10) X 10*3/uL Carbon Dioxide 18.9 L (20.0-27.5) mmol/L Anion Gap 7.70 L (10.00-18.00) mmol/L BUN 5.4 L (9.0-27.0) mg/dL Creatinine 0.5 L (0.6-1.5) mg/dL BUN/Creatinine Ratio 11.51 L (12.00-20.00) Ratio Calcium 7.3 L (8.7-10.3) mg/dL Microbiology - Last 24 Hours (Table) 05/29/21 18:00 Stool Culture - Preliminary Stool Assessment and Plan (1) Abdominal pain Narrative/Plan: 75-year-old female with a history of chronic abdominal pain status post multiple abdominal surgeries including Suzanna-en-Y epigastric bypass, cholecystectomy, hysterectomy, and sigmoid colectomy with end colostomy and lysis of adhesions on July 2020 by , then the patient had a reversal of the colostomy is 10/26/2020. She states she's had abdominal pain since her surgeries. It is at the incisional site. Apparently the patient may have been having some nausea and vomiting however states she has not been nauseated or vomiting at this time. Patient states her appetite has been good. She does have frequent loose stools 5-6 per day nonbloody, no mucus reported. Takes Imodium at home 1-2 tablets daily without much improvement. She has a history of GI bleed and underwent EGD and colonoscopy in September 2016 without any evidence of GI bleed. EGD did have findings of 2 ulcerations at the anastomotic site of the Suzanna-en-Y. Colonoscopy showed scattered sigmoid diverticulosis. She had a repeat EGD in December 2016 for questionable GI bleed showing 2 ulcerations again at the anastomotic site of the Suzanna-en-Y as well as a small hiatal hernia. She was supposed to undergo EGD and colonoscopy during her last admission at the end of April however she had ventricular tachycardia and the procedure was aborted. We'll proceed with colonoscopy tomorrow. Multiple sterile prep this afternoon and finish in the morning. Current Visit: Yes Status: Acute Code(s): R10.9 - UNSPECIFIED ABDOMINAL PAIN SNOMED Code(s): 12854523 (2) Chronic diarrhea Narrative/Plan: Stool studies ordered. C. difficile toxin was negative. Will proceed with colonoscopy. Current Visit: Yes Status: Acute Code(s): K52.9 - NONINFECTIVE GASTROENTERITIS AND COLITIS, UNSPECIFIED SNOMED Code(s): 086511574 Plan: 1. Continue symptomatic and supportive care 2. Stool studies reviewed and are negative 3. Repeat CBC daily, transfuse per protocol 4. Hold Questran 5. Will change Imodium back to as needed as we are going to proceed with colonoscopy 6. Clear liquid diet, nothing by mouth after midnight except for bowel prep 7. Patient requesting gastroenterology to proceed with colonoscopy, patient will be scheduled tomorrow afternoon 8. Start bowel prep this afternoon and finished early tomorrow morning at 6 AM Thank you for this consultation, we will continue to follow. Dr. Benigno Beasley I agree with the dictator's note, documented as a scribe by Juliane Antony.
[2021-05-31 15:45] LABS: Anisocytosis Slight; HCT 29.7 % (34.0-46.0); HGB 8.7 gm/dL (11.4-16.0); Hypochromasia Marked; MCH 28.4 pg (25.0-35.0); MCHC 29.3 g/dL (31.0-37.0); Macrocytosis Slight; Mean Platelet Volume 8.4; Platelet Count 243 k/uL (150-450); RBC 3.06 m/uL (3.80-5.40); RDW 17.5 % (11.5-15.5); WBC 4.7 k/uL (3.8-10.6)
[2021-06-01] MEDS: HYDROcodone/APAP 5-325MG 1 EACH TAB PO PRN ×4 (01:28→22:16)
[2021-06-01] MEDS: MORPHINE SULFATE 4 MG/ML SYRINGE IV PRN ×5 (02:29→20:11)
[2021-06-01] MEDS: LEVOTHYROXINE 100 MCG TAB PO SCH (05:31)
[2021-06-01] MEDS: SODIUM CHLORIDE 0.9% 1,000 ML IV SCH ×2 (05:31→20:12)
[2021-06-01] MEDS: METOPROLOL TARTRATE 50 MG TAB PO SCH ×2 (05:31→17:20)
[2021-06-01] MEDS: FERROUS SULFATE 325 MG TAB PO SCH ×2 (07:32→17:20)
[2021-06-01] MEDS: metroNIDAZOLE-NS PMX 500 MG in SALINE 1 100ML.BAG IVPB SCH ×2 (07:42→16:02)
[2021-06-01] MEDS: MULTIVITAMINS, THERA 1 EACH TAB PO SCH (08:27)
[2021-06-01] MEDS: GABAPENTIN 100 MG CAP PO SCH ×3 (08:27→21:06)
[2021-06-01] MEDS: PANTOPRAZOLE 40 MG/10 ML VIAL IVP SCH (08:27)
[2021-06-01] MEDS: CHOLECALCIFEROL 25 MCG (1000 IU) TABLET PO SCH (08:27)
[2021-06-01] MEDS: LOSARTAN 25 MG TAB PO SCH (09:06)
[2021-06-01 09:51] LABS: Anisocytosis Slight; HCT 29.9 % (34.0-46.0); HGB 8.9 gm/dL (11.4-16.0); Hypochromasia Marked; MCH 29.1 pg (25.0-35.0); MCHC 29.8 g/dL (31.0-37.0); MCV 97.8 fL (80.0-100.0); Macrocytosis Slight; Mean Platelet Volume 8.5; Platelet Count 311 k/uL (150-450); RBC 3.06 m/uL (3.80-5.40); RDW 17.1 % (11.5-15.5); WBC 5.1 k/uL (3.8-10.6)
[2021-06-01] MEDS ORDERED: DICYCLOMINE 20 MG TAB PO PRN (11:12)
--- NOTE | 2021-06-01 12:18 | P.PN ---
Subjective Patient is a 75-year-old female with a known history of paroxysmal atrial fibrillation on anticoagulation with Eliquis, coronary artery disease with history of stent placement, GERD, hypertension, chronic back pain, laryngeal cancer status post treatment 20 years ago, osteoarthritis, hearing disorder/deafness and hypothyroidism and previous history of smoking, anxiety/depression and panic disorder and other multiple medical problems presents to ER with complaints of diarrhea and abdominal pain mainly lower half and also experiencing 3 episodes of vomiting. Patient felt nauseous. She is also having decreased appetite. Patient presents to ER. Denied any complaints of chest pain or shortness breath. Does have nausea and episodes of vomiting. No headache or dizziness or lightheadedness. Denies any dysuria or hematuria. Denies any hematemesis or melena. Patient has been afebrile on admission. Pulse ox 99% on room air. On admission CT of the abdomen pelvis was done which showed intrasclerotic vascular disease. Previous bariatric surgery and sigmoid colon surgery. No evidence of bowel obstruction. No adverse change compared to old exam. Scoliotic deformity with spinal stenosis L4-L5 spondylosis. No change. EKG showed left axis deviation and left bundle branch block. And atrial fibrillation with heart rate 78. Laboratory showed WBC 4.6 hemoglobin 10.0 and platelets 360 Sodium 132 potassium 3.7 chloride 106 bicarb is 23 BUN 12 and creatinine 0.44 calcium 8.2 albumin 2.4 and lipase level is 21 Urinalysis is cloudy nitrite positive and small leukoesterase with elevated WBCs and RBCs less than 1. COVID-19 PCR not detected. Patient was recently admitted to the hospital due to altered mental status/encephalopathy and suspected due to narcotic pain medications use. Neurological work-up has been negative. Patient was also complaining of blood in the stools. Patient was prepped for colonoscopy but procedure was aborted due to tachyarrhythmia. Seen by cardiology and was started on metoprolol. Patient is also on Eliquis for paroxysmal atrial fibrillation. Patient did improve clinically and was discharged home with home care. Subjective: I'm resume the care of the patient on 05/24/2021 This is a pleasant 75 years old female with multiple hospitalization, now presents with intractable nausea vomiting and abdominal pain with diarrhea suspicious for gastroenteritis also with some evidence of acute urinary tract infection. Also she had some fever yesterday of 100.1. Currently she is covered with ceftriaxone and Flagyl area stool studies and see this percent. Urine culture is pending. Also director of people on the case for her left bundle branch block and A. fib and currently she is on Eliquis 5 mg recommended by director of people, patient informed and she agrees to continue with it. Patient is eating 25% of her diet and discussed with bed side nurse to put her on liquid diet 05/25/2021 Patient is still have lower abdominal pain and diarrhea was not much difference is from yesterday after she was started on antibiotic. However no more fever only one episode 2 nights Ago. No vomiting and she tolerates liquid diet well. Stool study and C. diff are still pending however urine culture came back negative. Patient remains on ceftriaxone and Flagyl and Eliquis recommended by director of people Patient blood pressure is running good because of this I'm going to lower her normal saline down to 50 mL/h. 05/26/2021 pt states her diarrhea is improving from 10/day to twice yesterday and started becoming more formed , yesterday she got only one dose of cholestyramine, most likely pt is improving with antibiotics , she still has significant lower abd pain , surgery team think this is chronic pt stool lactoferrin is positive , stool culture is pending once culture is back, we may consider patient for discharge. Other than that her labs and hemodynamically stable and she is improving. Cardiology recommended no further workup and follow-up as an outpatient 05/27/2011 Patient vomited twice last night and she states that her bowel movement is loose again she still complaining of from increasing pain and tenderness, mainly in the lower abdomen but today also little more in the upper abdomen. There is also some mild guarding It looks like the patient under treated with pain management as she is on morphine 2 mg every 8 hours, we increased the dose to 4 mg every 8 hours and add [place] 5 mg when necessary. However with a repeat CT of the abdomen and pelvis with oral contrast only for a follow-up. She is eating 50-75% of her diet and we will repeat labs in the morning. Surgery team on the case C. diff is negative, she remains on ceftriaxone and Flagyl, stool lactoferrin is positive and stool culture is pending. 05/28/2021 Patient is still complaining from abdominal pain, diarrhea and vomiting. Patient states that she has chronic abdominal pain 5/10 however since admission has increased up to 90/10. She still have loose bowel movement like twice this morning, she still vomiting. He was some report of dyspnea but she was not tachypneic or dyspneic at rest when I saw her this morning with no basal crepitation. Chest x-ray showing atelectasis versus early infiltrate. But patient with no fever or leukocytosis. CT of the abdomen and pelvis yesterday showing possible left colitis and patient stool cultures came back negative although lactoferrin stool was positive. Also significantly her hemoglobin dropped today from 10 on admission down to 9.5 and 7.2 today. Therefore Eliquis started on admission was held, we placed her on Protonix from oral to IV once daily, also 2 anemia workup including occult blood in the stool and continue with gentle hydration of normal saline at 75 mL/h Also continue with antibiotics at [facility] for respiratory and abdominal symptoms. C. diff is negative. Surgical team on the case 05/29/2021 Patient still reports nausea vomiting and diarrhea, or abdominal pain looks chronic, hemodynamically stable. GI service consult is appreciated they recommend Imodium and endoscopy Surgical team are planning for colonoscopy on if still symptomatic Patient remains on Flagyl, ceftriaxone, Questran and Imodium and today. Also she is on Eliquis home dose of 5 mg and normal saline at 75 mL/h 05/30/2021 Patient still complaining of from diarrhea, nausea vomiting and abdominal pain She is hemodynamically stable Repeat hemoglobin is pending Plan for possible colonoscopy on She remains on subcu heparin GI and surgery teams on the case 05/31/2021 Patient still complaining from lower abdominal pain and tenderness, she still h as diarrhea but vomiting stopped. She is hemodynamically stable, afebrile. No tachycardia. However her hemoglobin dropped 8.1 down to 6.6 today. We will do anemia workup and check occult blood in the stool. Hold subcutaneous heparin and continue with Protonix. Eliquis recommended by director of people is still on hold. Cryptosporidium and Giardia test the stool came back negative. Start an ferrous sulfate Patient is to undergo colonoscopy tomorrow with GI team 06/01/2021 Patient remains symptomatic with lower abdominal pain, which is large part of it is chronic, no vomiting but still have diarrhea, Patient is getting a preparation with GoLYTELY The plan for colonoscopy tomorrow with GI service Repeat hemoglobin yesterday was 8.7 and today 8.9, it looks like 6.6 was a lab error. We will resume her subcutaneous heparin She has evidence of anemia of chronic disease, B12 656 and folate 6.9 which are within the reference range Objective - Vital Signs Vital signs: Vital Signs Temp 98.6 F 06/01/21 07:10 Pulse 70 06/01/21 07:37 Resp 13 06/01/21 07:37 BP 116/68 06/01/21 07:10 Pulse Ox 97 06/01/21 07:10 Intake & Output 05/31/21 06/01/21 06/01/21 18:59 06:59 18:59 Intake Total 700 1600 Balance 700 1600 Weight 55 kg Intake: IV 200 metroNIDAZOLE-NS PMX 500 200 mg In Saline 1 100ml.bag @ 100 mls/hr IVPB Q8HR [facility] Rx#:[id number] Intake, IV Titration 500 1000 Amount Sodium Chloride 0.9% 1, 450 900 000 ml @ 75 mls/hr IV . [id number] [facility] Rx#:[id number] cefTRIAXone 1 gm In 50 Sodium Chloride 0.9% 50 ml @ 100 mls/hr IVPB Q24HR [facility] Rx#:[id number] metroNIDAZOLE-NS PMX 500 100 mg In Saline 1 100ml.bag @ 100 mls/hr IVPB Q8HR [facility] Rx#:[id number] Oral 600 Other: Voiding Method Toilet Toilet Bedside Commode # Voids 3 - Exam GENERAL: The patient is alert and oriented x3, not in any acute distress. Well developed, well nourished. HEENT: Pupils are round and equally reacting to light. EOMI. No scleral icterus. No conjunctival pallor. Normocephalic, atraumatic. No pharyngeal erythema. No thyromegaly. CARDIOVASCULAR: S1 and S2 present. No murmurs, rubs, or gallops. PULMONARY: Chest is clear to auscultation, no wheezing or crackles. - ABDOMEN: Soft, periumbilical tenderness with no rebound tenderness with little guarding, nondistended, normoactive bowel sounds. No palpable organomegaly. MUSCULOSKELETAL: No joint swelling or deformity. EXTREMITIES: No cyanosis, clubbing, or pedal edema. NEUROLOGICAL: Gross neurological examination did not reveal any focal deficits. SKIN: No rashes. no petechiae. - Labs CBC & Chem 7: 06/01/21 08:36 05/31/21 07:22 Labs: Abnormal Lab Results - Last 24 Hours (Table) 05/31/21 05/31/21 05/31/21 Range/Units 07:22 07:22 15:07 RBC 2.41 L 3.06 L (4.10-5.20) X 10*6/uL Hgb 6.6 L* 8.7 L (12.0-15.0) g/dL Hct 22.3 L 29.7 L (37.2-46.3) % MCHC 29.6 L 29.3 L (32.0-37.0) g/dL RDW 18.3 H 17.5 H (11.5-14.5) % Basophils # (Manual) 0.14 H (0.00-0.10) X 10*3/uL Carbon Dioxide 18.9 L (20.0-27.5) mmol/L Anion Gap 7.70 L (10.00-18.00) mmol/L BUN 5.4 L (9.0-27.0) mg/dL Creatinine 0.5 L (0.6-1.5) mg/dL BUN/Creatinine Ratio 11.51 L (12.00-20.00) Ratio Calcium 7.3 L (8.7-10.3) mg/dL 06/01/21 Range/Units 08:36 RBC 3.06 L (4.10-5.20) X 10*6/uL Hgb 8.9 L (12.0-15.0) g/dL Hct 29.9 L (37.2-46.3) % MCHC 29.8 L (32.0-37.0) g/dL RDW 17.1 H (11.5-14.5) % Basophils # (Manual) (0.00-0.10) X 10*3/uL Carbon Dioxide (20.0-27.5) mmol/L Anion Gap (10.00-18.00) mmol/L BUN (9.0-27.0) mg/dL Creatinine (0.6-1.5) mg/dL BUN/Creatinine Ratio (12.00-20.00) Ratio Calcium (8.7-10.3) mg/dL Microbiology - Last 24 Hours (Table) 05/29/21 18:00 Stool Culture - Preliminary Stool Assessment and Plan Assessment: Mostly infectious versus reactive gastroenteritis, with Intractable nausea and vomiting and diarrhea. CT showing focal descending colitis Anemia of chronic disease, hemoglobin is stable Abdominal pain- acute on chronic. Atypical chest pain. Cardiac causes ruled out. Chest pain resolved Left bundle branch block Paroxysmal atrial fibrillation on anticoagulation with Eliquis.(Held for anemia) Nonischemic cardiomyopathy ejection fraction 35 to 40% History of bowel resection and bariatric surgery Hypertension Hyperlipidemia GI and DVT prophylaxis patient is already on Eliquis Plan: This is a pleasant 75 years old female who presents with UTI/gastroenteritis and left bundle-branch block. Continue with normal saline 75 mm/h, continue with ceftriaxone and Flagyl GI consult Planned for colonoscopy on Cardiology team on Case and the recommended Eliquis (hold for colonoscopy and ) for A. fib and patient agrees. Collar Packer recommended follow-up as an outpatient. If hemoglobin is stable, resume therapeutic dose of anticoagulation, hold known to make sure hemoglobin is a stable Labs and medication were reviewed.. Continue same treatment. Continue with symptomatic treatment. Resume home medication. Monitor lytes and vitals. DVT and GI prophylaxis. Further recommendations as per clinical course of the marcin malloy DVT prophylaxis: Eliquis (held for colonoscopy on ). Resume subcutaneous heparin GI Prophylaxis: Ppi
--- NOTE | 2021-06-01 13:30 | P.PN ---
Subjective Progress Note Date: 06/01/21 Principal diagnosis: Abdominal pain, diarrhea Patient seen today as a follow-up with complaints of abdominal pain and diarrhea. Patient has had chronic abdominal pain and diarrhea since her colectomy with colostomy in July of last year. She underwent reversal in October 2020 states then she has been having intermittent abdominal pain since then. She's had multiple hospitalizations. Patient states abdominal pain continues, worse today. He was scheduled for EGD and colonoscopy this afternoon however patient was not able to finish her prep and reported stool is not clear. States that she will try to finish her prep today and plan for EGD and colonoscopy tomorrow. Hemoglobin was repeated yesterday and her repeat hemoglobin was 8.7. It is stable today at 8.9. And she does not see any black stool or blood in her stool. He is afebrile. She remains on IV antibiotics Rocephin and Flagyl. Objective - Vital Signs Vital signs: Vital Signs Temp 98.6 F 06/01/21 07:10 Pulse 70 06/01/21 07:37 Resp 13 06/01/21 07:37 BP 116/68 06/01/21 07:10 Pulse Ox 97 06/01/21 07:10 Intake & Output 05/31/21 06/01/21 06/01/21 18:59 06:59 18:59 Intake Total 700 1600 Balance 700 1600 Weight 55 kg Intake: IV 200 metroNIDAZOLE-NS PMX 500 200 mg In Saline 1 100ml.bag @ 100 mls/hr IVPB Q8HR [facility] Rx#:[id number] Intake, IV Titration 500 1000 Amount Sodium Chloride 0.9% 1, 450 900 000 ml @ 75 mls/hr IV . [id number] [facility] Rx#:[id number] cefTRIAXone 1 gm In 50 Sodium Chloride 0.9% 50 ml @ 100 mls/hr IVPB Q24HR [facility] Rx#:[id number] metroNIDAZOLE-NS PMX 500 100 mg In Saline 1 100ml.bag @ 100 mls/hr IVPB Q8HR [facility] Rx#:[id number] Oral 600 Other: Voiding Method Toilet Toilet Bedside Commode # Voids 3 - Exam General appearance: The patient is alert, oriented, appears in no acute distress. HET: Head is normocephalic and atraumatic. Conjunctiva pink. Sclera anicteric. Neck: Supple without lymphadenopathy. Abdomen: Soft, diffuse tenderness, nondistended with bowel sounds. No guarding or rigidity. Extremities: Normal skin color and turgor. No pedal edema Skin: No rashes, no jaundice Neurological: No focal deficits. Alert and oriented x3. - Labs CBC & Chem 7: 06/01/21 08:36 05/31/21 07:22 Labs: Abnormal Lab Results - Last 24 Hours (Table) 05/31/21 05/31/21 05/31/21 Range/Units 07:22 07:22 15:07 RBC 2.41 L 3.06 L (4.10-5.20) X 10*6/uL Hgb 6.6 L* 8.7 L (12.0-15.0) g/dL Hct 22.3 L 29.7 L (37.2-46.3) % MCHC 29.6 L 29.3 L (32.0-37.0) g/dL RDW 18.3 H 17.5 H (11.5-14.5) % Basophils # (Manual) 0.14 H (0.00-0.10) X 10*3/uL Carbon Dioxide 18.9 L (20.0-27.5) mmol/L Anion Gap 7.70 L (10.00-18.00) mmol/L BUN 5.4 L (9.0-27.0) mg/dL Creatinine 0.5 L (0.6-1.5) mg/dL BUN/Creatinine Ratio 11.51 L (12.00-20.00) Ratio Calcium 7.3 L (8.7-10.3) mg/dL 06/01/21 Range/Units 08:36 RBC 3.06 L (4.10-5.20) X 10*6/uL Hgb 8.9 L (12.0-15.0) g/dL Hct 29.9 L (37.2-46.3) % MCHC 29.8 L (32.0-37.0) g/dL RDW 17.1 H (11.5-14.5) % Basophils # (Manual) (0.00-0.10) X 10*3/uL Carbon Dioxide (20.0-27.5) mmol/L Anion Gap (10.00-18.00) mmol/L BUN (9.0-27.0) mg/dL Creatinine (0.6-1.5) mg/dL BUN/Creatinine Ratio (12.00-20.00) Ratio Calcium (8.7-10.3) mg/dL Microbiology - Last 24 Hours (Table) 05/29/21 18:00 Stool Culture - Preliminary Stool Assessment and Plan (1) Abdominal pain Narrative/Plan: 75-year-old female with a history of chronic abdominal pain status post multiple abdominal surgeries including Suzanna-en-Y epigastric bypass, cholecystectomy, hysterectomy, and sigmoid colectomy with end colostomy and lysis of adhesions on July 2020 by , then the patient had a reversal of the colostomy is 10/26/2020. She states she's had abdominal pain since her surgeries. It is at the incisional site. Apparently the patient may have been having some nausea and vomiting however states she has not been nauseated or vomiting at this time. Patient states her appetite has been good. She does have frequent loose stools 5-6 per day nonbloody, no mucus reported. Takes Imodium at home 1-2 tablets daily without much improvement. She has a history of GI bleed and underwent EGD and colonoscopy in September 2016 without any evidence of GI bleed. EGD did have findings of 2 ulcerations at the anastomotic site of the Suzanna-en-Y. Colonoscopy showed scattered sigmoid diverticulosis. She had a repeat EGD in December 2016 for questionable GI bleed showing 2 ulcerations again at the anastomotic site of the Suzanna-en-Y as well as a small hiatal hernia. She was supposed to undergo EGD and colonoscopy during her last admission at the end of April however she had ventricular tachycardia and the procedure was aborted. Patient was unable to complete her prep for today. Will proceed with EGD and colonoscopy tomorrow. Current Visit: Yes Status: Acute Code(s): R10.9 - UNSPECIFIED ABDOMINAL PAIN SNOMED Code(s): 80365688 (2) Chronic diarrhea Narrative/Plan: Stool studies ordered. C. difficile toxin was negative. Will proceed with colonoscopy. Current Visit: Yes Status: Acute Code(s): K52.9 - NONINFECTIVE GASTROENTERITIS AND COLITIS, UNSPECIFIED SNOMED Code(s): 037997251 Plan: 1. Continue symptomatic and supportive care 2. Stool studies reviewed and are negative 3. Repeat CBC daily, transfuse per protocol 4. Hold Questran 5. Will change Imodium back to as needed as we are going to proceed with colonoscopy 6. Clear liquid diet, nothing by mouth after midnight 7. Patient requesting gastroenterology to proceed with colonoscopy, patient will be re-scheduled tomorrow 8. Complete bowel prep today Thank you for this consultation, we will continue to follow. Dr. Benigno Beasley I agree with the dictator's note, documented as a scribe by Juliane Antony.
[2021-06-01 14:15] LABS: % Iron Saturation 7.28 (12.00-45.00)
--- NOTE | 2021-06-01 14:47 | P.PN ---
Subjective Progress Note Date: 06/01/21 CHIEF COMPLAINT: Abdominal pain HISTORY OF PRESENT ILLNESS: Patient still complaining of same mid abdominal pain at incision site. She is still having diarrhea. Denies any black stools or blood in her stools. Stool for occult blood was negative. She had a computed tomography scan on May 27 that showed mild wall thickening of the sigmoid colon similar to old exam and could relate to some focal colitis. No bowel obstruction. Patient is on IV antibiotics. Stool studies and C. diff negative. Afebrile. WBC 5.1-year-old woman 8.9 platelets 311 patient started GoLYTELY prep Patient seen and examined with Dr. atkins PHYSICAL EXAM: VITAL SIGNS: Reviewed. GENERAL: Well-developed in no acute distress. HEENT: No sclera icterus. Extraocular movements grossly intact. Moist buccal mucosa. Head is atraumatic, normocephalic. ABDOMEN: Soft. Nondistended. Tenderness to palpation of lower mid abdomen at incision site. NEUROLOGIC: Alert and oriented. Cranial nerves II through XII grossly intact. ASSESSMENT: 1. Chronic abdominal pain 2. Diarrhea 3. Possible focal colitis noted on CAT scan 4. Anemia PLAN: -Patient scheduled for colonoscopy with GI service tomorrow -Continue supportive care -Continue to monitor hemoglobin -Continue to monitor for signs and symptoms of bleeding -Continue antibiotics Physician Packing Clerk note has been reviewed by physician. Signing provider agrees with the documented findings, assessment, and plan of care. Objective - Vital Signs Vital signs: Vital Signs Temp 97.6 F 06/01/21 12:30 Pulse 70 06/01/21 12:30 Resp 15 06/01/21 12:30 BP 138/66 06/01/21 12:30 Pulse Ox 97 06/01/21 12:30 Intake & Output 05/31/21 06/01/21 06/01/21 18:59 06:59 18:59 Intake Total 700 1600 Balance 700 1600 Weight 55 kg Intake: IV 200 metroNIDAZOLE-NS PMX 500 200 mg In Saline 1 100ml.bag @ 100 mls/hr IVPB Q8HR [facility] Rx#:[id number] Intake, IV Titration 500 1000 Amount Sodium Chloride 0.9% 1, 450 900 000 ml @ 75 mls/hr IV . [id number] [facility] Rx#:[id number] cefTRIAXone 1 gm In 50 Sodium Chloride 0.9% 50 ml @ 100 mls/hr IVPB Q24HR [facility] Rx#:[id number] metroNIDAZOLE-NS PMX 500 100 mg In Saline 1 100ml.bag @ 100 mls/hr IVPB Q8HR [facility] Rx#:[id number] Oral 600 Other: Voiding Method Toilet Toilet Bedside Commode # Voids 3 # Bowel Movements 1 - Labs CBC & Chem 7: 06/01/21 08:36 05/31/21 07:22 Labs: Abnormal Lab Results - Last 24 Hours (Table) 05/31/21 05/31/21 06/01/21 Range/Units 07:22 15:07 08:36 RBC 3.06 L 3.06 L (3.80-5.40) m/uL Hgb 8.7 L 8.9 L (11.4-16.0) gm/dL Hct 29.7 L 29.9 L (34.0-46.0) % MCHC 29.3 L 29.8 L (31.0-37.0) g/dL RDW 17.5 H 17.1 H (11.5-15.5) % Iron 9 L (50-170) ug/dL TIBC 128 L (228-460) ug/dL % Saturation 7.28 L (12.00-45.00) Transferrin 91.1 L (204.0-354.0) mg/dL Microbiology - Last 24 Hours (Table) 05/29/21 18:00 Stool Culture - Preliminary Stool
[2021-06-01 15:33] LABS: Ferritin 47.2 ng/mL (10.0-291.0)
[2021-06-01 16:43] LABS: Folate, Serum 7.7 ng/mL (4.40-31.00)
[2021-06-01] MEDS: HEPARIN SODIUM,PORCINE/PF 5,000 UNIT/0.5 ML SYRINGE SQ SCH (20:11)
[2021-06-01] MEDS: ONDANSETRON 4 MG/2 ML VIAL IVP PRN (21:06)
[2021-06-02] MEDS: metroNIDAZOLE-NS PMX 500 MG in SALINE 1 100ML.BAG IVPB SCH ×3 (00:01→17:22)
[2021-06-02] MEDS: MORPHINE SULFATE 4 MG/ML SYRINGE IV PRN ×4 (00:08→19:46)
[2021-06-02] MEDS: ACETAMINOPHEN TAB 325 MG TAB PO PRN (02:28)
[2021-06-02] MEDS: METOPROLOL TARTRATE 50 MG TAB PO SCH ×2 (05:30→17:23)
[2021-06-02] MEDS: LEVOTHYROXINE 100 MCG TAB PO SCH (05:30)
[2021-06-02] MEDS: SODIUM CHLORIDE 0.9% 1,000 ML IV SCH (05:31)
[2021-06-02] MEDS: GABAPENTIN 100 MG CAP PO SCH ×3 (07:55→20:45)
[2021-06-02] MEDS: HYDROcodone/APAP 5-325MG 1 EACH TAB PO PRN ×2 (07:55→22:18)
[2021-06-02] MEDS: HEPARIN SODIUM,PORCINE/PF 5,000 UNIT/0.5 ML SYRINGE SQ SCH ×2 (07:58→20:45)
[2021-06-02] MEDS: FERROUS SULFATE 325 MG TAB PO SCH ×2 (07:58→17:22)
[2021-06-02] MEDS: LOSARTAN 25 MG TAB PO SCH (07:59)
[2021-06-02] MEDS: PANTOPRAZOLE 40 MG/10 ML VIAL IVP SCH (10:10)
[2021-06-02] MEDS: CHOLECALCIFEROL 25 MCG (1000 IU) TABLET PO SCH (11:39)
[2021-06-02] MEDS: MULTIVITAMINS, THERA 1 EACH TAB PO SCH (11:39)
[2021-06-02] MEDS ORDERED: ePHEDrine 50 MG/ML 1 ML VIAL ONE (13:18)
[2021-06-02] MEDS ORDERED: PROPOFOL 10 MG/ML 20 ML VIAL IV ONE (13:18)
[2021-06-02] MEDS ORDERED: LIDOCAINE 1% INJ 10MG/ML (20 ML MDV) ONE (13:18)
--- NOTE | 2021-06-02 13:27 | P.PN ---
Subjective Progress Note Date: 06/02/21 CHIEF COMPLAINT: Abdominal pain HISTORY OF PRESENT ILLNESS: patient complains of the same mid abdominal pain near her incision site. She is scheduled for colonoscopy today with Dr. Beasley. Denies any blood in the stools.hemoglobin 8.9 yesterday PHYSICAL EXAM: VITAL SIGNS: Reviewed. GENERAL: Well-developed in no acute distress. HEENT: No sclera icterus. Extraocular movements grossly intact. Moist buccal mucosa. Head is atraumatic, normocephalic. ABDOMEN: Soft. Nondistended. Tenderness to palpation of lower mid abdomen at incision site. NEUROLOGIC: Alert and oriented. Cranial nerves II through XII grossly intact. ASSESSMENT: 1. Chronic abdominal pain 2. Diarrhea 3. Possible focal colitis noted on CAT scan 4. Anemia PLAN: -Patient scheduled for colonoscopy with GI service today -Continue supportive care -Continue to monitor hemoglobin -Continue to monitor for signs and symptoms of bleeding -Continue antibiotics Physician Ammonium Hydroxide Operator note has been reviewed by physician. Signing provider agrees with the documented findings, assessment, and plan of care. Objective - Vital Signs Vital signs: Vital Signs Temp 97.4 F L 06/02/21 11:44 Pulse 65 06/02/21 11:44 Resp 18 06/02/21 11:44 BP 160/77 06/02/21 11:44 Pulse Ox 100 06/02/21 11:44 Intake & Output 06/01/21 06/02/21 06/02/21 18:59 06:59 18:59 Intake Total 1000 1000 Balance 1000 1000 Weight 56 kg Intake: Intake, IV Titration 1000 Amount Sodium Chloride 0.9% 1, 900 000 ml @ 75 mls/hr IV . [id number] [facility] Rx#:[id number] metroNIDAZOLE-NS PMX 500 100 mg In Saline 1 100ml.bag @ 100 mls/hr IVPB Q8HR [facility] Rx#:[id number] Oral 1000 Other: Voiding Method Bedside Commode Bedside Commode # Voids 5 3 # Bowel Movements 1 - Labs CBC & Chem 7: 06/01/21 08:36 05/31/21 07:22 Labs: Abnormal Lab Results - Last 24 Hours (Table) 05/31/21 Range/Units 07:22 Iron 9 L (50-170) ug/dL TIBC 128 L (228-460) ug/dL % Saturation 7.28 L (12.00-45.00) Transferrin 91.1 L (204.0-354.0) mg/dL Microbiology - Last 24 Hours (Table) 05/29/21 18:00 Stool Culture - Final Stool
[2021-06-02] MEDS ORDERED: IV FLUID CONTINUATION 700 ML IV ONE (13:55)
--- NOTE | 2021-06-02 13:56 | P.PCN ---
Date of Procedure: 06/02/21 Procedure(s) Performed: Brief history: Patient is a pleasant 75-year-old white female admitted hospital with severe lower abdominal pain associated diarrhea on-and-off since October of last year. Her symptoms have been progressively getting worse with 5-6 loose watery bowel movements daily. 2 cm were negative. She had CT of the abdomen and pelvis done during this hospitalization the showed thickening of the sigmoid colon but otherwise unremarkable. She was treated with empiric antibiotics for 1 week ago help. She is hence scheduled for an upper endoscopy as well as colonoscopy to evaluate further. His prior history of bariatric surgery many years ago. She also had sigmoid colon resection with colostomy and subsequent reversal last seen. He was hospitalized and was diagnosed with iron deficiency anemia. Procedure performed: Esophagogastroduodenoscopy with biopsy Colonoscopy Preoperative diagnosis: Iron deficiency anemia Severe lower abdominal pain and diarrhea Anesthesia: MAC Procedure: After informed consent was obtained from the patient was brought into the endoscopy unit and IV sedation was administered by anesthesia under continuous monitoring. Initially upper endoscopy was done. The Olympus GF 160 video endoscope was inserted inserted into the mouth and esophagus intubated without any difficulty and was gradually advanced into the gastric pouch and evidence of Suzanna-en-Y anastomosis identified. The efferent loop appeared normal. Biopsies were done from the jejunum. The scope was advanced into 60 cm of the jejunum that appeared normal. At this time was withdrawn to the gastric pouch also appeared normal. Anastomosis was normal. Gastric pouch appeared normal. The scope was then withdrawn into the esophagus. The GE junction was located at 40 cm to the incisors. It appeared regulabut there were erosions with exudates noted in the distal esophagus consistent with esophagitis. Biopsies were done from this area. The rest of thet of the esophagus appeared normal. Patient tolerated the procedure well. At this time the patient continued to remain sedation. Initial digital rectal examination was normal. Olympus CF 160 video colonoscope was then inserted into the rectum and gradually advanced to theproximal rectum. The anastomosis from sigmoid colectomy was identified. There was tight stricture at the anastomosis. The scope could not be advanced. Subsequently I tried to pass a pediatric colonoscopy and was not successful. At this time I used a pediatric upper endoscopy and with gentle manipulation and pressure I was able to advance the scope into the cecum and carefully examination was performed as the scope was gradually being withdrawn. The prep was excellent. The cecum, ascending colon, transverse colon, descending colon appeared normal there was evidence of colitis and centimeters proximal to the anastomotic stricture with mucosal erythema friability and ulcerations and biopsies were done from this area. Once again the anastomotic stricture was located at 10 cm from the anal verge which appeared very tight. Retroflexion was performed in the rectum and no lesions were noted. Patient tolerated the procedure well. Impression: 1. Upper endoscopy revealed evidence of gastric bypass surgery with Suzanna-en-Y anastomosis and appeared normal. Mild distal esophagitis 2. Colonoscopy revealed sigmoid anastomotic tight stricture at 10 cm from the anal verge and evidence of colitis just proximal to the stricture extending to 20 cm with mucosal erythema friability and superficial ulcerations status post biopsies. Rest of the colon appeared normal. Recommendations: Findings of this examination were discussed with the patient .at this time will await biopsy results. Will discuss with regarding the colonoscopy findings. Start on on a clear liquid diet today.
--- NOTE | 2021-06-02 14:38 | P.PN ---
Subjective Patient is a 75-year-old female with a known history of paroxysmal atrial fibrillation on anticoagulation with Eliquis, coronary artery disease with history of stent placement, GERD, hypertension, chronic back pain, laryngeal cancer status post treatment 20 years ago, osteoarthritis, hearing disorder/deafness and hypothyroidism and previous history of smoking, anxiety/depression and panic disorder and other multiple medical problems presents to ER with complaints of diarrhea and abdominal pain mainly lower half and also experiencing 3 episodes of vomiting. Patient felt nauseous. She is also having decreased appetite. Patient presents to ER. Denied any complaints of chest pain or shortness breath. Does have nausea and episodes of vomiting. No headache or dizziness or lightheadedness. Denies any dysuria or hematuria. Denies any hematemesis or melena. Patient has been afebrile on admission. Pulse ox 99% on room air. On admission CT of the abdomen pelvis was done which showed intrasclerotic vascular disease. Previous bariatric surgery and sigmoid colon surgery. No evidence of bowel obstruction. No adverse change compared to old exam. Scoliotic deformity with spinal stenosis L4-L5 spondylosis. No change. EKG showed left axis deviation and left bundle branch block. And atrial fibrillation with heart rate 78. Laboratory showed WBC 4.6 hemoglobin 10.0 and platelets 360 Sodium 132 potassium 3.7 chloride 106 bicarb is 23 BUN 12 and creatinine 0.44 calcium 8.2 albumin 2.4 and lipase level is 21 Urinalysis is cloudy nitrite positive and small leukoesterase with elevated WBCs and RBCs less than 1. COVID-19 PCR not detected. Patient was recently admitted to the hospital due to altered mental status/encephalopathy and suspected due to narcotic pain medications use. Neurological work-up has been negative. Patient was also complaining of blood in the stools. Patient was prepped for colonoscopy but procedure was aborted due to tachyarrhythmia. Seen by cardiology and was started on metoprolol. Patient is also on Eliquis for paroxysmal atrial fibrillation. Patient did improve clinically and was discharged home with home care. Subjective: I'm resume the care of the patient on 05/24/2021 This is a pleasant 75 years old female with multiple hospitalization, now presents with intractable nausea vomiting and abdominal pain with diarrhea suspicious for gastroenteritis also with some evidence of acute urinary tract infection. Also she had some fever yesterday of 100.1. Currently she is covered with ceftriaxone and Flagyl area stool studies and see this percent. Urine culture is pending. Also scouring machine tender on the case for her left bundle branch block and A. fib and currently she is on Eliquis 5 mg recommended by scouring machine tender, patient informed and she agrees to continue with it. Patient is eating 25% of her diet and discussed with bed side nurse to put her on liquid diet 05/25/2021 Patient is still have lower abdominal pain and diarrhea was not much difference is from yesterday after she was started on antibiotic. However no more fever only one episode 2 nights Ago. No vomiting and she tolerates liquid diet well. Stool study and C. diff are still pending however urine culture came back negative. Patient remains on ceftriaxone and Flagyl and Eliquis recommended by scouring machine tender Patient blood pressure is running good because of this I'm going to lower her normal saline down to 50 mL/h. 05/26/2021 pt states her diarrhea is improving from 10/day to twice yesterday and started becoming more formed , yesterday she got only one dose of cholestyramine, most likely pt is improving with antibiotics , she still has significant lower abd pain , surgery team think this is chronic pt stool lactoferrin is positive , stool culture is pending once culture is back, we may consider patient for discharge. Other than that her labs and hemodynamically stable and she is improving. Cardiology recommended no further workup and follow-up as an outpatient 05/27/2011 Patient vomited twice last night and she states that her bowel movement is loose again she still complaining of from increasing pain and tenderness, mainly in the lower abdomen but today also little more in the upper abdomen. There is also some mild guarding It looks like the patient under treated with pain management as she is on morphine 2 mg every 8 hours, we increased the dose to 4 mg every 8 hours and add [place] 5 mg when necessary. However with a repeat CT of the abdomen and pelvis with oral contrast only for a follow-up. She is eating 50-75% of her diet and we will repeat labs in the morning. Surgery team on the case C. diff is negative, she remains on ceftriaxone and Flagyl, stool lactoferrin is positive and stool culture is pending. 05/28/2021 Patient is still complaining from abdominal pain, diarrhea and vomiting. Patient states that she has chronic abdominal pain 5/10 however since admission has increased up to 90/10. She still have loose bowel movement like twice this morning, she still vomiting. He was some report of dyspnea but she was not tachypneic or dyspneic at rest when I saw her this morning with no basal crepitation. Chest x-ray showing atelectasis versus early infiltrate. But patient with no fever or leukocytosis. CT of the abdomen and pelvis yesterday showing possible left colitis and patient stool cultures came back negative although lactoferrin stool was positive. Also significantly her hemoglobin dropped today from 10 on admission down to 9.5 and 7.2 today. Therefore Eliquis started on admission was held, we placed her on Protonix from oral to IV once daily, also 2 anemia workup including occult blood in the stool and continue with gentle hydration of normal saline at 75 mL/h Also continue with antibiotics at [facility] for respiratory and abdominal symptoms. C. diff is negative. Surgical team on the case 05/29/2021 Patient still reports nausea vomiting and diarrhea, or abdominal pain looks chronic, hemodynamically stable. GI service consult is appreciated they recommend Imodium and endoscopy Surgical team are planning for colonoscopy on if still symptomatic Patient remains on Flagyl, ceftriaxone, Questran and Imodium and today. Also she is on Eliquis home dose of 5 mg and normal saline at 75 mL/h 05/30/2021 Patient still complaining of from diarrhea, nausea vomiting and abdominal pain She is hemodynamically stable Repeat hemoglobin is pending Plan for possible colonoscopy on She remains on subcu heparin GI and surgery teams on the case 05/31/2021 Patient still complaining from lower abdominal pain and tenderness, she still h as diarrhea but vomiting stopped. She is hemodynamically stable, afebrile. No tachycardia. However her hemoglobin dropped 8.1 down to 6.6 today. We will do anemia workup and check occult blood in the stool. Hold subcutaneous heparin and continue with Protonix. Eliquis recommended by scouring machine tender is still on hold. Cryptosporidium and Giardia test the stool came back negative. Start an ferrous sulfate Patient is to undergo colonoscopy tomorrow with GI team 06/01/2021 Patient remains symptomatic with lower abdominal pain, which is large part of it is chronic, no vomiting but still have diarrhea, Patient is getting a preparation with [facility] The plan for colonoscopy tomorrow with GI service Repeat hemoglobin yesterday was 8.7 and today 8.9, it looks like 6.6 was a lab error. We will resume her subcutaneous heparin She has evidence of anemia of chronic disease, B12 656 and folate 6.9 which are within the reference range 06/02/2021 Patient still with significant lower abdominal pain and diarrhea but no vomiting. She underwent EGD and colonoscopy today with GI service as below 1. Upper endoscopy revealed evidence of gastric bypass surgery with Suzanna-en-Y anastomosis and appeared normal. Mild distal esophagitis 2. Colonoscopy revealed sigmoid anastomotic tight stricture at 10 cm from the anal verge and evidence of colitis just proximal to the stricture extending to 20 cm with mucosal erythema friability and superficial ulcerations status post biopsies. Rest of the colon appeared normal. The patient started on liquid diet today. GI and surgery team are going to discuss the findings of colonoscopy for further recommendation for now. Follow-up biopsy from the colonoscopy. Objective - Vital Signs Vital signs: Vital Signs Temp 97.4 F L 06/02/21 11:44 Pulse 65 06/02/21 11:44 Resp 18 06/02/21 11:44 BP 160/77 06/02/21 11:44 Pulse Ox 100 06/02/21 11:44 Intake & Output 06/01/21 06/02/21 06/02/21 18:59 06:59 18:59 Intake Total 1000 1000 Balance 1000 1000 Weight 56 kg Intake: Intake, IV Titration 1000 Amount Sodium Chloride 0.9% 1, 900 000 ml @ 75 mls/hr IV . [id number] ALFREDO Rx#:[id number] metroNIDAZOLE-NS PMX 500 100 mg In Saline 1 100ml.bag @ 100 mls/hr IVPB Q8HR [facility] Rx#:[id number] Oral 1000 Other: Voiding Method Bedside Commode Bedside Commode # Voids 5 3 # Bowel Movements 1 - Exam GENERAL: The patient is alert and oriented x3, not in any acute distress. Well developed, well nourished. HEENT: Pupils are round and equally reacting to light. EOMI. No scleral icterus. No conjunctival pallor. Normocephalic, atraumatic. No pharyngeal erythema. No thyromegaly. CARDIOVASCULAR: S1 and S2 present. No murmurs, rubs, or gallops. PULMONARY: Chest is clear to auscultation, no wheezing or crackles. - ABDOMEN: Soft, periumbilical tenderness with no rebound tenderness with little guarding, nondistended, normoactive bowel sounds. No palpable organomegaly. MUSCULOSKELETAL: No joint swelling or deformity. EXTREMITIES: No cyanosis, clubbing, or pedal edema. NEUROLOGICAL: Gross neurological examination did not reveal any focal deficits. SKIN: No rashes. no petechiae. - Labs CBC & Chem 7: 06/01/21 08:36 05/31/21 07:22 Labs: Abnormal Lab Results - Last 24 Hours (Table) 05/31/21 Range/Units 07:22 Iron 9 L (50-170) ug/dL TIBC 128 L (228-460) ug/dL % Saturation 7.28 L (12.00-45.00) Transferrin 91.1 L (204.0-354.0) mg/dL Microbiology - Last 24 Hours (Table) 05/29/21 18:00 Stool Culture - Final Stool Assessment and Plan Assessment: -Sigmoid Colitis with stricture, with Intractable nausea and vomiting and diarrhea. CT showing focal descending colitis. Colonoscopy: sigmoid anastomotic tight stricture at 10 cm from the anal verge and evidence of colitis just proximal to the stricture extending to 20 cm with mucosal erythema friabili ty and superficial ulcerations status post biopsies -Anemia of chronic disease, hemoglobin is stable -Abdominal pain- acute on chronic. -Atypical chest pain. Cardiac causes ruled out. Chest pain resolved -Left bundle branch block -Paroxysmal atrial fibrillation on anticoagulation with Eliquis.(Held for anemia) -Nonischemic cardiomyopathy ejection fraction 35 to 40% -History of bowel resection and bariatric surgery -Hypertension -Hyperlipidemia -GI and DVT prophylaxis patient is already on Eliquis Plan: This is a pleasant 75 years old female who presents with UTI/gastroenteritis and left bundle-branch block. Continue with normal saline 75 mm/h, continue with ceftriaxone and Flagyl GI consult Surgery team on the case as well as Cardiology team on Case and the recommended Eliquis (hold for colonoscopy and ) for A. fib and patient agrees. Building Carpenter Helper recommended follow-up as an outpatient. If hemoglobin is stable, resume therapeutic dose of anticoagulation, hold known to make sure hemoglobin is a stable Labs and medication were reviewed.. Continue same treatment. Continue with symptomatic treatment. Resume home medication. Monitor lytes and vitals. DVT and GI prophylaxis. Further recommendations as per clinical course of the patient DVT prophylaxis: Eliquis (held for colonoscopy on ). Resume subcutaneous heparin GI Prophylaxis: Ppi
[2021-06-02] MEDS ORDERED: LACTATED RINGERS 1,000 ML IV SCH ×2 (17:10)
[2021-06-02 19:47] LABS: Anisocytosis Slight; HCT 27.7 % (34.0-46.0); HGB 8.7 gm/dL (11.4-16.0); Hypochromasia Marked; MCH 29.1 pg (25.0-35.0); MCHC 31.6 g/dL (31.0-37.0); Mean Platelet Volume 11.9; Platelet Count 241 k/uL (150-450); Poikilocytosis Slight; WBC 6.1 k/uL (3.8-10.6)
[2021-06-02 20:45] LABS: MCV 92.3 fL (80.0-100.0)
[2021-06-03] MEDS: MORPHINE SULFATE 4 MG/ML SYRINGE IV PRN ×4 (00:08→22:29)
[2021-06-03] MEDS: metroNIDAZOLE-NS PMX 500 MG in SALINE 1 100ML.BAG IVPB SCH ×3 (00:09→16:30)
[2021-06-03] MEDS: SODIUM CHLORIDE 0.9% 1,000 ML IV SCH ×2 (00:12→09:40)
[2021-06-03] MEDS: LEVOTHYROXINE 100 MCG TAB PO SCH (05:40)
[2021-06-03] MEDS: METOPROLOL TARTRATE 50 MG TAB PO SCH ×2 (07:48→16:29)
[2021-06-03] MEDS: GABAPENTIN 100 MG CAP PO SCH ×3 (08:47→22:29)
[2021-06-03] MEDS: MULTIVITAMINS, THERA 1 EACH TAB PO SCH (08:48)
[2021-06-03] MEDS: LOSARTAN 25 MG TAB PO SCH (08:50)
[2021-06-03] MEDS: CHOLECALCIFEROL 25 MCG (1000 IU) TABLET PO SCH (08:51)
[2021-06-03] MEDS: FERROUS SULFATE 325 MG TAB PO SCH ×2 (08:51→16:29)
[2021-06-03] MEDS: PANTOPRAZOLE 40 MG/10 ML VIAL IVP SCH (09:39)
[2021-06-03] MEDS: HEPARIN SODIUM,PORCINE/PF 5,000 UNIT/0.5 ML SYRINGE SQ SCH ×2 (09:39→22:28)
--- NOTE | 2021-06-03 09:42 | P.PN ---
Subjective Progress Note Date: 06/03/21 Principal diagnosis: Abdominal pain Patient says she feels about the same. She is afebrile. She is tolerating clear liquids. Underwent colonoscopy and EGD showing mild distal esophagitis and stricture at previous colorectal anastomosis with mild colitis proximal to that. Objective - Vital Signs Vital signs: Vital Signs Temp 97.5 F L 06/03/21 05:00 Pulse 67 06/03/21 05:00 Resp 20 06/03/21 05:00 BP 108/49 06/03/21 05:00 Pulse Ox 92 L 06/03/21 05:00 Intake & Output 06/02/21 06/03/21 06/03/21 18:59 06:59 18:59 Intake Total 600 100 Balance 600 100 Weight 55.5 kg Intake: IV 600 Oral 100 Other: Voiding Method Bedside Commode # Voids 3 1 - Exam Abdomen: Soft, nondistended, mild tenderness - Labs CBC & Chem 7: 06/02/21 17:51 05/31/21 07:22 Labs: Abnormal Lab Results - Last 24 Hours (Table) 06/02/21 Range/Units 17:51 RBC 3.00 L (3.80-5.40) m/uL Hgb 8.7 L (11.4-16.0) gm/dL Hct 27.7 L (34.0-46.0) % RDW 18.0 H (11.5-15.5) % Microbiology - Last 24 Hours (Table) 05/29/21 18:00 Stool Culture - Final Stool Assessment and Plan (1) Abdominal pain Narrative/Plan: Patient says she feels about the same. Says her pain is not really better after bowel prep. Await biopsies from colonoscopy. Gradually advance diet. Current Visit: Yes Status: Acute Code(s): R10.9 - UNSPECIFIED ABDOMINAL PAIN SNOMED Code(s): 78264922
--- NOTE | 2021-06-03 20:09 | P.PN ---
Subjective Progress Note Date: 06/03/21 Patient is a 75-year-old female with a known history of paroxysmal atrial fibrillation on anticoagulation with Eliquis, coronary artery disease with history of stent placement, GERD, hypertension, chronic back pain, laryngeal cancer status post treatment 20 years ago, osteoarthritis, hearing disorder/deaf ness and hypothyroidism and previous history of smoking, anxiety/depression and panic disorder and other multiple medical problems presents to ER with complaints of diarrhea and abdominal pain mainly lower half and also experiencing 3 episodes of vomiting. Patient felt nauseous. She is also having decreased appetite. Patient presents to ER. Denied any complaints of chest pain or shortness breath. Does have nausea and episodes of vomiting. No headache or dizziness or lightheadedness. Denies any dysuria or hematuria. Denies any hematemesis or melena. Patient has been afebrile on admission. Pulse ox 99% on room air. On admission CT of the abdomen pelvis was done which showed intrasclerotic vascular disease. Previous bariatric surgery and sigmoid colon surgery. No evidence of bowel obstruction. No adverse change compared to old exam. Scoliotic deformity with spinal stenosis L4-L5 spondylosis. No change. EKG showed left axis deviation and left bundle branch block. And atrial fibrillation with heart rate 78. Laboratory showed WBC 4.6 hemoglobin 10.0 and platelets 360 Sodium 132 potassium 3.7 chloride 106 bicarb is 23 BUN 12 and creatinine 0.44 calcium 8.2 albumin 2.4 and lipase level is 21 Urinalysis is cloudy nitrite positive and small leukoesterase with elevated WBCs and RBCs less than 1. COVID-19 PCR not detected. Patient was recently admitted to the hospital due to altered mental status/encephalopathy and suspected due to narcotic pain medications use. Neurological work-up has been negative. Patient was also complaining of blood in the stools. Patient was prepped for colonoscopy but procedure was aborted due to tachyarrhythmia. Seen by cardiology and was started on metoprolol. Patient is also on Eliquis for paroxysmal atrial fibrillation. Patient did improve clinically and was discharged home with home care. Subjective: I'm resume the care of the patient on 05/24/2021 This is a pleasant 75 years old female with multiple hospitalization, now p resents with intractable nausea vomiting and abdominal pain with diarrhea suspicious for gastroenteritis also with some evidence of acute urinary tract infection. Also she had some fever yesterday of 100.1. Currently she is covered with ceftriaxone and Flagyl area stool studies and see this percent. Urine culture is pending. Also land title examiner on the case for her left bundle branch block and A. fib and currently she is on Eliquis 5 mg recommended by land title examiner, patient informed and she agrees to continue with it. Patient is eating 25% of her diet and discussed with bed side nurse to put her on liquid diet 05/25/2021 Patient is still have lower abdominal pain and diarrhea was not much difference is from yesterday after she was started on antibiotic. However no more fever only one episode 2 nights Ago. No vomiting and she tolerates liquid diet well. Stool study and C. diff are still pending however urine culture came back negative. Patient remains on ceftriaxone and Flagyl and Eliquis recommended by land title examiner Patient blood pressure is running good because of this I'm going to lower her normal saline down to 50 mL/h. 05/26/2021 pt states her diarrhea is improving from 10/day to twice yesterday and started becoming more formed , yesterday she got only one dose of cholestyramine, most likely pt is improving with antibiotics , she still has significant lower abd pain , surgery team think this is chronic pt stool lactoferrin is positive , stool culture is pending once culture is back, we may consider patient for discharge. Other than that her labs and hemodynamically stable and she is improving. Cardiology recommended no further workup and follow-up as an outpatient 05/27/2011 Patient vomited twice last night and she states that her bowel movement is loose again she still complaining of from increasing pain and tenderness, mainly in the lower abdomen but today also little more in the upper abdomen. There is also some mild guarding It looks like the patient under treated with pain management as she is on morphine 2 mg every 8 hours, we increased the dose to 4 mg every 8 hours and add [place] 5 mg when necessary. However with a repeat CT of the abdomen and pelvis with oral contrast only for a follow-up. She is eating 50-75% of her diet and we will repeat labs in the morning. Surgery team on the case C. diff is negative, she remains on ceftriaxone and Flagyl, stool lactoferrin is positive and stool culture is pending. 05/28/2021 Patient is still complaining from abdominal pain, diarrhea and vomiting. Patient states that she has chronic abdominal pain 5/10 however since admission has increased up to 90/10. She still have loose bowel movement like twice this morning, she still vomiting. He was some report of dyspnea but she was not tachypneic or dyspneic at rest when I saw her this morning with no basal crepitation. Chest x-ray showing atelectasis versus early infiltrate. But patient with no fever or leukocytosis. CT of the abdomen and pelvis yesterday showing possible left colitis and patient stool cultures came back negative although lactoferrin stool was positive. Also significantly her hemoglobin dropped today from 10 on admission down to 9.5 and 7.2 today. Therefore Eliquis started on admission was held, we placed her on Protonix from oral to IV once daily, also 2 anemia workup including occult blood in the stool and continue with gentle hydration of normal saline at 75 mL/h Also continue with antibiotics at [place] for respiratory and abdominal symptoms. C. diff is negative. Surgical team on the case 05/29/2021 Patient still reports nausea vomiting and diarrhea, or abdominal pain looks chronic, hemodynamically stable. GI service consult is appreciated they recommend Imodium and endoscopy Surgical team are planning for colonoscopy on if still symptomatic Patient remains on Flagyl, ceftriaxone, Questran and Imodium and today. Also she is on Eliquis home dose of 5 mg and normal saline at 75 mL/h 05/30/2021 Patient still complaining of from diarrhea, nausea vomiting and abdominal pain She is hemodynamically stable Repeat hemoglobin is pending Plan for possible colonoscopy on She remains on subcu heparin GI and surgery teams on the case 05/31/2021 Patient still complaining from lower abdominal pain and tenderness, she still has diarrhea but vomiting stopped. She is hemodynamically stable, afebrile. No tachycardia. However her hemoglobin dropped 8.1 down to 6.6 today. We will do anemia workup and check occult blood in the stool. Hold subcutaneous heparin and continue with Protonix. Eliquis recommended by land title examiner is still on hold. Cryptosporidium and Giardia test the stool came back negative. Start an ferrous sulfate Patient is to undergo colonoscopy tomorrow with GI team 06/01/2021 Patient remains symptomatic with lower abdominal pain, which is large part of it is chronic, no vomiting but still have diarrhea, Patient is getting a preparation with [facility] The plan for colonoscopy tomorrow with GI service Repeat hemoglobin yesterday was 8.7 and today 8.9, it looks like 6.6 was a lab error. We will resume her subcutaneous heparin She has evidence of anemia of chronic disease, B12 656 and folate 6.9 which are within the reference range 06/02/2021 Patient still with significant lower abdominal pain and diarrhea but no vomiting. She underwent EGD and colonoscopy today with GI service as below 1. Upper endoscopy revealed evidence of gastric bypass surgery with Suzanna-en-Y anastomosis and appeared normal. Mild distal esophagitis 2. Colonoscopy revealed sigmoid anastomotic tight stricture at 10 cm from the anal verge and evidence of colitis just proximal to the stricture extending to 20 cm with mucosal erythema friability and superficial ulcerations status post biopsies. Rest of the colon appeared normal. The patient started on liquid diet today. GI and surgery team are going to discuss the findings of colonoscopy for further recommendation for now. Follow-up biopsy from the colonoscopy. 06/03/2021 Patient is currently resting in the bed. States that her abdominal pain is better today. Patient is status post EGD and colonoscopy showed mild distal esophagitis and stricture at the previous colorectal anastomosis with mild colitis proximal to that. Patient was started full liquid diet and advance as tolerated. Otherwise patient has been afebrile. No complaints of nausea or vomiting. No chest pain or shortness of breath. Patient is being continued antibiotics and follow-up ceftriaxone and Flagyl. Laboratory data reviewed. General surgery is on board. Current medications reviewed. Objective - Vital Signs Vital signs: Vital Signs Temp 97.9 F 06/03/21 11:58 Pulse 64 06/03/21 11:58 Resp 14 06/03/21 11:58 BP 129/60 06/03/21 11:58 Pulse Ox 95 06/03/21 11:58 Intake & Output 06/02/21 06/03/21 06/03/21 18:59 06:59 18:59 Intake Total 600 100 Balance 600 100 Weight 55.5 kg Intake: IV 600 Oral 100 Other: Voiding Method Bedside Commode # Voids 3 1 - Exam - Exam GENERAL: The patient is alert and oriented x3, not in any acute distress. Well developed, well nourished. HEENT: Pupils are round and equally reacting to light. EOMI. No scleral icterus. No conjunctival pallor. Normocephalic, atraumatic. No pharyngeal erythema. No th yromegaly. CARDIOVASCULAR: S1 and S2 present. No murmurs, rubs, or gallops. PULMONARY: Chest is clear to auscultation, no wheezing or crackles. - ABDOMEN: Soft, periumbilical tenderness with no rebound tenderness with little guarding, nondistended, normoactive bowel sounds. No palpable organomegaly. MUSCULOSKELETAL: No joint swelling or deformity. EXTREMITIES: No cyanosis, clubbing, or pedal edema. NEUROLOGICAL: Gross neurological examination did not reveal any focal deficits. SKIN: No rashes. no petechiae. - Labs CBC & Chem 7: 06/02/21 17:51 05/31/21 07:22 Labs: Abnormal Lab Results - Last 24 Hours (Table) 06/02/21 Range/Units 17:51 RBC 3.00 L (3.80-5.40) m/uL Hgb 8.7 L (11.4-16.0) gm/dL Hct 27.7 L (34.0-46.0) % RDW 18.0 H (11.5-15.5) % Assessment and Plan Assessment: -Sigmoid Colitis with stricture, with Intractable nausea and vomiting and diarrhea. CT showing focal descending colitis. Colonoscopy: sigmoid anastomotic tight stricture at 10 cm from the anal verge and evidence of colitis just proximal to the stricture extending to 20 cm with mucosal erythema friability and superficial ulcerations status post biopsies -Anemia of chronic disease, hemoglobin is stable -Abdominal pain- acute on chronic. -Atypical chest pain. Cardiac causes ruled out. Chest pain resolved -Left bundle branch block -Paroxysmal atrial fibrillation on anticoagulation with Eliquis.(Held for anemia) -Nonischemic cardiomyopathy ejection fraction 35 to 40% -History of bowel resection and bariatric surgery -Hypertension -Hyperlipidemia -GI and DVT prophylaxis patient is already on Eliquis Plan: This is a pleasant 75 years old female who presents with UTI/gastroenteritis and left bundle-branch block. Continue with normal saline 75 mm/h, continue with ceftriaxone and Flagyl GI consult Surgery team on the case as well as Cardiology team on Case and the recommended Eliquis (hold for colonoscopy and ) for A. fib and patient agrees. Nuclear Medical Technologist recommended follow-up as an outpatient. If hemoglobin is stable, resume therapeutic dose of anticoagulation, hold known to make sure hemoglobin is a stable Labs and medication were reviewed.. Continue same treatment. Continue with symptomatic treatment. Resume home medication. Monitor lytes and vitals. DVT and GI prophylaxis. Further recommendations as per clinical course of the patient DVT prophylaxis: Eliquis (held for colonoscopy on ). Resume subcutaneous heparin GI Prophylaxis: Ppi Time with Patient: Greater than 30
[2021-06-04] MEDS: metroNIDAZOLE-NS PMX 500 MG in SALINE 1 100ML.BAG IVPB SCH ×4 (00:30→23:07)
[2021-06-04] MEDS: MORPHINE SULFATE 4 MG/ML SYRINGE IV PRN ×5 (02:13→23:08)
[2021-06-04] MEDS: SODIUM CHLORIDE 0.9% 1,000 ML IV SCH ×2 (02:49→16:17)
[2021-06-04] MEDS: HYDROcodone/APAP 5-325MG 1 EACH TAB PO PRN ×3 (03:56→17:28)
[2021-06-04] MEDS: LEVOTHYROXINE 100 MCG TAB PO SCH (05:39)
[2021-06-04] MEDS: METOPROLOL TARTRATE 50 MG TAB PO SCH ×2 (05:40→17:24)
[2021-06-04] MEDS: MULTIVITAMINS, THERA 1 EACH TAB PO SCH (08:03)
[2021-06-04] MEDS: FERROUS SULFATE 325 MG TAB PO SCH ×2 (08:03→17:28)
[2021-06-04] MEDS: GABAPENTIN 100 MG CAP PO SCH ×3 (08:03→21:04)
[2021-06-04] MEDS: CHOLECALCIFEROL 25 MCG (1000 IU) TABLET PO SCH (08:03)
[2021-06-04] MEDS: HEPARIN SODIUM,PORCINE/PF 5,000 UNIT/0.5 ML SYRINGE SQ SCH ×2 (08:03→21:04)
[2021-06-04] MEDS: LOSARTAN 25 MG TAB PO SCH (08:11)
[2021-06-04] MEDS: PANTOPRAZOLE 40 MG/10 ML VIAL IVP SCH (08:42)
[2021-06-04 09:07] LABS: African American GFR (CKD) 109.7 (60.0-200.0); Anion Gap 9.6 mmol/L (10.00-18.00); BUN/Creat Ratio 6.8 Ratio (12.00-20.00); Basophils # (A) 0.05 X 10*3/uL (0.00-0.10); Basophils % (A) 0.5 %; Blood Urea Nitrogen 3.4 mg/dL (9.0-27.0); Calcium 7.7 mg/dL (8.7-10.3); Carbon Dioxide 15.4 mmol/L (20.0-27.5); Eosinophils # (A) 0.04 X 10*3/uL (0.04-0.35); Eosinophils % (A) 0.4 %; HGB 8.5 g/dL (12.0-15.0); Immature Grans, Automated 0.4 %; Lymphocytes # (A) 4.05 X 10*3/uL (0.90-5.00); Lymphocytes % (A) 39.2 %; MCH 27.2 pg (27.0-32.0); MCHC 29.3 g/dL (32.0-37.0); MCV 92.7 fL (80.0-97.0); Monocytes # (A) 1.25 X 10*3/uL (0.20-1.00); Monocytes % (A) 12.1 %; NRBC Per 100 WBC 0 /100 WBCS (0.0-0.0); Neutrophils % (A) 47.4 %; Non-African American GFR(CKD) 94.7 (60.0-200.0); Platelet Count 344 X 10*3/uL (140-440); Potassium 3.7 mmol/L (3.5-5.5); RBC 3.13 X 10*6/uL (4.10-5.20); WBC 10.33 X 10*3/uL (4.50-10.00)
--- NOTE | 2021-06-04 11:11 | P.PN ---
Subjective Progress Note Date: 06/04/21 Principal diagnosis: Abdominal pain Patient still having some discomfort. White blood cell count increased slightly 10.3. Tolerating clear liquids. Some loose stools. Objective - Vital Signs Vital signs: Vital Signs Temp 98.1 F 06/04/21 05:00 Pulse 71 06/04/21 08:10 Resp 20 06/04/21 05:00 BP 95/49 06/04/21 08:10 Pulse Ox 96 06/04/21 05:00 Intake & Output 06/03/21 06/04/21 06/04/21 18:59 06:59 18:59 Intake Total 150 350 Balance 150 350 Weight 84.5 kg Intake: IV 100 metroNIDAZOLE-NS PMX 500 100 mg In Saline 1 100ml.bag @ 100 mls/hr IVPB Q8HR [facility] Rx#:[id number] Intake, IV Titration 50 Amount cefTRIAXone 1 gm In 50 Sodium Chloride 0.9% 50 ml @ 100 mls/hr IVPB Q24HR [facility] Rx#:[id number] Oral 350 Other: # Voids 3 1 # Bowel Movements 1 - Exam Abdomen: Soft, nondistended, mild tenderness - Labs CBC & Chem 7: 06/04/21 06:34 06/04/21 06:34 Labs: Abnormal Lab Results - Last 24 Hours (Table) 06/04/21 06/04/21 Range/Units 06:34 06:34 WBC 10.33 H (4.50-10.00) X 10*3/uL RBC 3.13 L (4.10-5.20) X 10*6/uL Hgb 8.5 L (12.0-15.0) g/dL Hct 29.0 L (37.2-46.3) % MCHC 29.3 L (32.0-37.0) g/dL RDW 20.0 H (11.5-14.5) % Monocytes # 1.25 H (0.20-1.00) X 10*3/uL Sodium 133 L (135-145) mmol/L Carbon Dioxide 15.4 L (20.0-27.5) mmol/L Anion Gap 9.60 L (10.00-18.00) mmol/L BUN 3.4 L (9.0-27.0) mg/dL Creatinine 0.5 L (0.6-1.5) mg/dL BUN/Creatinine Ratio 6.80 L (12.00-20.00) Ratio Calcium 7.7 L (8.7-10.3) mg/dL Assessment and Plan (1) Abdominal pain Narrative/Plan: Patient with chronic abdominal pain. Unclear whether this is partially related to the stricture seen on recent colonoscopy. Continue clear liquids. Patient will be seen by Dr. Burt tomorrow. Current Visit: Yes Status: Acute Code(s): R10.9 - UNSPECIFIED ABDOMINAL PAIN SNOMED Code(s): 30613807
[2021-06-05] MEDS: HYDROcodone/APAP 5-325MG 1 EACH TAB PO PRN ×3 (02:35→20:10)
[2021-06-05] MEDS: MORPHINE SULFATE 4 MG/ML SYRINGE IV PRN ×5 (03:34→21:12)
[2021-06-05] MEDS: SODIUM CHLORIDE 0.9% 1,000 ML IV SCH (03:36)
[2021-06-05] MEDS: LEVOTHYROXINE 100 MCG TAB PO SCH (06:08)
[2021-06-05] MEDS: METOPROLOL TARTRATE 50 MG TAB PO SCH ×2 (06:09→17:27)
[2021-06-05] MEDS: HEPARIN SODIUM,PORCINE/PF 5,000 UNIT/0.5 ML SYRINGE SQ SCH ×2 (10:07→20:10)
[2021-06-05] MEDS: LOSARTAN 25 MG TAB PO SCH (10:07)
[2021-06-05] MEDS: MULTIVITAMINS, THERA 1 EACH TAB PO SCH (10:07)
[2021-06-05] MEDS: CHOLECALCIFEROL 25 MCG (1000 IU) TABLET PO SCH (10:07)
[2021-06-05] MEDS: GABAPENTIN 100 MG CAP PO SCH ×3 (10:07→20:10)
[2021-06-05] MEDS: FERROUS SULFATE 325 MG TAB PO SCH ×2 (10:07→16:53)
[2021-06-05] MEDS: metroNIDAZOLE-NS PMX 500 MG in SALINE 1 100ML.BAG IVPB SCH ×2 (10:08→16:53)
[2021-06-05] MEDS: PANTOPRAZOLE 40 MG/10 ML VIAL IVP SCH (10:08)
[2021-06-05 10:11] LABS: African American GFR (CKD) 109.7 (60.0-200.0); Anion Gap 6.4 mmol/L (10.00-18.00); BUN/Creat Ratio 8.2 Ratio (12.00-20.00); Blood Urea Nitrogen 4.1 mg/dL (9.0-27.0); Calcium 7.5 mg/dL (8.7-10.3); Carbon Dioxide 18.6 mmol/L (20.0-27.5); Non-African American GFR(CKD) 94.7 (60.0-200.0)
[2021-06-05 10:48] LABS: Basophils # (A) 0.04 X 10*3/uL (0.00-0.10); Basophils % (A) 0.7 %; Eosinophils # (A) 0.08 X 10*3/uL (0.04-0.35); Eosinophils % (A) 1.4 %; HCT 22.6 % (37.2-46.3); HGB 6.8 g/dL (12.0-15.0); Immature Grans, Automated 0.2 %; Lymphocytes # (A) 3.39 X 10*3/uL (0.90-5.00); Lymphocytes % (A) 57.3 %; MCH 27.4 pg (27.0-32.0); MCHC 30.1 g/dL (32.0-37.0); MCV 91.1 fL (80.0-97.0); Mean Platelet Volume 9.9 fL (9.5-12.2); Monocytes # (A) 0.95 X 10*3/uL (0.20-1.00); NRBC Per 100 WBC 0 /100 WBCS (0.0-0.0); Neutrophils # (A) 1.45 X 10*3/uL (1.80-7.70); Neutrophils % (A) 24.4 %; Platelet Count 315 X 10*3/uL (140-440); RBC 2.48 X 10*6/uL (4.10-5.20); RDW 20.3 % (11.5-14.5); WBC 5.92 X 10*3/uL (4.50-10.00)
--- NOTE | 2021-06-05 15:27 | P.PN ---
Subjective Progress Note Date: 06/05/21 CHIEF COMPLAINT: Abdominal pain HISTORY OF PRESENT ILLNESS: patient complains of the same mid abdominal pain near her incision site. She is having diarrhea. Denies blood in her stools or black stools. Patient status post colonoscopy with Dr. Beasley results showed upper endoscopy with distal esophagitis. Colonoscopy revealed sigmoid anastomotic tight stricture and evidence of colitis proximal to the stricture. Biopsy results pending. Afebrile. WBC 5.92 hemoglobin 6.8 sodium 135 potassium is 4 creatinine 0.5 PHYSICAL EXAM: VITAL SIGNS: Reviewed. GENERAL: Well-developed in no acute distress. HEENT: No sclera icterus. Extraocular movements grossly intact. Moist buccal mucosa. Head is atraumatic, normocephalic. ABDOMEN: Soft. Nondistended. Tenderness to palpation of lower mid abdomen at incision site. NEUROLOGIC: Alert and oriented. Cranial nerves II through XII grossly intact. ASSESSMENT: 1. Abdominal pain with evidence of sigmoid anastomotic tight stricture on colonoscopy 2. Diarrhea 3. Possible focal colitis noted on CAT scan 4. Anemia PLAN: -Patient scheduled for colonoscopy with balloon dilation of sigmoid anastomotic stricture tomorrow 06/06/[address] atkins -Keep patient nothing by mouth after midnight -Clear liquid diet tonight -We'll give Fleet enema. No other bowel prep needed -Continue to monitor hemoglobin -Continue antibiotics Physician Slack Cooper note has been reviewed by physician. Signing provider agrees with the documented findings, assessment, and plan of care. Objective - Vital Signs Vital signs: Vital Signs Temp 98.1 F 06/05/21 11:31 Pulse 75 06/05/21 11:31 Resp 18 06/05/21 11:31 BP 129/77 06/05/21 11:31 Pulse Ox 95 06/05/21 11:31 Intake & Output 06/04/21 06/05/21 06/05/21 18:59 06:59 18:59 Intake Total 2170 160 Balance 2170 160 Intake: IV 160 Sodium Chloride 0.9% 1, 60 000 ml @ 75 mls/hr IV . [id number] [facility] Rx#:[id number] metroNIDAZOLE-NS PMX 500 100 mg In Saline 1 100ml.bag @ 100 mls/hr IVPB Q8HR [facility] Rx#:[id number] Intake, IV Titration 320 Amount Sodium Chloride 0.9% 1, 70 000 ml @ 75 mls/hr IV . [id number] [facility] Rx#:[id number] cefTRIAXone 1 gm In 50 Sodium Chloride 0.9% 50 ml @ 100 mls/hr IVPB Q24HR [facility] Rx#:[id number] metroNIDAZOLE-NS PMX 500 200 mg In Saline 1 100ml.bag @ 100 mls/hr IVPB Q8HR [facility] Rx#:[id number] Oral 1850 Other: Voiding Method Bedside Commode Bedside Commode # Voids 4 # Bowel Movements 3 - Labs CBC & Chem 7: 06/05/21 06:11 06/05/21 06:11 Labs: Abnormal Lab Results - Last 24 Hours (Table) 06/05/21 06/05/21 Range/Units 06:11 06:11 RBC 2.48 L (4.10-5.20) X 10*6/uL Hgb 6.8 L* (12.0-15.0) g/dL Hct 22.6 L (37.2-46.3) % MCHC 30.1 L (32.0-37.0) g/dL RDW 20.3 H (11.5-14.5) % Neutrophils # 1.45 L (1.80-7.70) X 10*3/uL Chloride 110 H (96-109) mmol/L Carbon Dioxide 18.6 L (20.0-27.5) mmol/L Anion Gap 6.40 L (10.00-18.00) mmol/L BUN 4.1 L (9.0-27.0) mg/dL Creatinine 0.5 L (0.6-1.5) mg/dL BUN/Creatinine Ratio 8.20 L (12.00-20.00) Ratio Calcium 7.5 L (8.7-10.3) mg/dL Microbiology - Last 24 Hours (Table) 05/29/21 18:00 Stool Culture - Final Stool
[2021-06-05] MEDS ORDERED: NA PHOS,M-B/NA PHOS,DI-BA 133 ML ENEMA RECTAL ONE (15:45)
--- NOTE | 2021-06-05 17:36 | P.PN ---
Subjective Progress Note Date: 06/05/21 Principal diagnosis: Abdominal pain, diarrhea Patient seen today as a follow-up with complaints of abdominal pain and diarrhea. Patient has had chronic abdominal pain and diarrhea since her colectomy with colostomy in July of last year. She underwent reversal in October 2020 states then she has been having intermittent abdominal pain since then. She's had multiple hospitalizations. Saturday the patient underwent an EGD and colonoscopy. Upper endoscopy revealed evidence of gastric bypass surgery with Suzanna-en-Y anastomosis and appeared normal. Mild distal esophagitis. Col onoscopy revealed sigmoid anastomotic tight stricture at 10 cm from the anal verge and evidence of colitis just proximal to the stricture extending to 20 cm with me Coso erythema friability and superficial ulcerations status post biopsies. Rest of the colon appeared normal. Patient states she had some improvement in her diarrhea but it had returned today. Still having abdominal pain. Me to Objective - Vital Signs Vital signs: Vital Signs Temp 98.1 F 06/05/21 11:31 Pulse 75 06/05/21 11:31 Resp 18 06/05/21 11:31 BP 129/77 06/05/21 11:31 Pulse Ox 95 06/05/21 11:31 Intake & Output 06/04/21 06/05/21 06/05/21 18:59 06:59 18:59 Intake Total 2170 160 Balance 2170 160 Intake: IV 160 Sodium Chloride 0.9% 1, 60 000 ml @ 75 mls/hr IV . [id number] [facility] Rx#:[id number] metroNIDAZOLE-NS PMX 500 100 mg In Saline 1 100ml.bag @ 100 mls/hr IVPB Q8HR [facility] Rx#:[id number] Intake, IV Titration 320 Amount Sodium Chloride 0.9% 1, 70 000 ml @ 75 mls/hr IV . [id number] [facility] Rx#:[id number] cefTRIAXone 1 gm In 50 Sodium Chloride 0.9% 50 ml @ 100 mls/hr IVPB Q24HR [facility] Rx#:[id number] metroNIDAZOLE-NS PMX 500 200 mg In Saline 1 100ml.bag @ 100 mls/hr IVPB Q8HR [facility] Rx#:[id number] Oral 1850 Other: Voiding Method Bedside Commode Bedside Commode # Voids 4 # Bowel Movements 3 - Exam General appearance: The patient is alert, oriented, appears in no acute distress. HET: Head is normocephalic and atraumatic. Conjunctiva pink. Sclera anicteric. Neck: Supple without lymphadenopathy. Abdomen: Soft, diffuse tenderness, nondistended with bowel sounds. No guarding or rigidity. Extremities: Normal skin color and turgor. No pedal edema Skin: No rashes, no jaundice Neurological: No focal deficits. Alert and oriented x3. - Labs CBC & Chem 7: 06/05/21 06:11 06/05/21 06:11 Labs: Abnormal Lab Results - Last 24 Hours (Table) 06/05/21 06/05/21 Range/Units 06:11 06:11 RBC 2.48 L (4.10-5.20) X 10*6/uL Hgb 6.8 L* (12.0-15.0) g/dL Hct 22.6 L (37.2-46.3) % MCHC 30.1 L (32.0-37.0) g/dL RDW 20.3 H (11.5-14.5) % Neutrophils # 1.45 L (1.80-7.70) X 10*3/uL Chloride 110 H (96-109) mmol/L Carbon Dioxide 18.6 L (20.0-27.5) mmol/L Anion Gap 6.40 L (10.00-18.00) mmol/L BUN 4.1 L (9.0-27.0) mg/dL Creatinine 0.5 L (0.6-1.5) mg/dL BUN/Creatinine Ratio 8.20 L (12.00-20.00) Ratio Calcium 7.5 L (8.7-10.3) mg/dL Microbiology - Last 24 Hours (Table) 05/29/21 18:00 Stool Culture - Final Stool Assessment and Plan (1) Abdominal pain Narrative/Plan: 75-year-old female with a history of chronic abdominal pain status post multiple abdominal surgeries including Suzanna-en-Y epigastric bypass, cholecystectomy, hysterectomy, and sigmoid colectomy with end colostomy and lysis of adhesions on July 2020 by , then the patient had a reversal of the colostomy is 10/26/2020. She states she's had abdominal pain since her surgeries. It is at the incisional site. Apparently the patient may have been having some nausea and vomiting however states she has not been nauseated or vomiting at this time. Patient states her appetite has been good. She does have frequent loose stools 5-6 per day nonbloody, no mucus reported. Takes Imodium at home 1-2 tablets daily without much improvement. She has a history of GI bleed and underwent EGD and colonoscopy in September 2016 without any evidence of GI bleed. EGD did have findings of 2 ulcerations at the anastomotic site of the Suzanna-en-Y. Colonoscopy showed scattered sigmoid diverticulosis. She had a repeat EGD in December 2016 for questionable GI bleed showing 2 ulcerations again at the anastomotic site of the Suzanna-en-Y as well as a small hiatal hernia. She was supposed to undergo EGD and colonoscopy during her last admission at the end of April however she had ventricular tachycardia and the procedure was aborted. Patient underwent EGD and colonoscopy. Upper endoscopy revealed evidence of gastric bypass surgery with Suzanna-en-Y anastomosis and appeared normal. Mild distal esophagitis. Colonoscopy revealed sigmoid anastomotic tight stricture at 10 cm from the anal verge and evidence of colitis just proximal to the stricture extending to 20 cm with me Coso erythema friability and superficial ulcerations status post biopsies. Rest of the colon appeared normal. Patient states she had some improvement in her diarrhea but it had returned today. Still having abdominal pain. Me to Current Visit: Yes Status: Acute Code(s): R10.9 - UNSPECIFIED ABDOMINAL PAIN SNOMED Code(s): 07688343 (2) Chronic diarrhea Narrative/Plan: Stool studies ordered. C. difficile toxin was negative. Will proceed with colonoscopy. Current Visit: Yes Status: Acute Code(s): K52.9 - NONINFECTIVE GASTROENTERITIS AND COLITIS, UNSPECIFIED SNOMED Code(s): 907686668 Plan: 1. Continue symptomatic and supportive care 2. Findings of EGD and colonoscopy discussed with the general surgery 3. Continue with recommendations from general surgery Thank you for this consultation, gastroenterology will sign off at this time. Dr. Benigno Beasley I agree with the dictator's note, documented as a scribe by Juliane Antony.
[2021-06-05] MEDS: ONDANSETRON 4 MG/2 ML VIAL IVP PRN (18:46)
--- NOTE | 2021-06-05 22:42 | P.PN ---
Subjective Progress Note Date: 06/05/21 This is a pleasant 75 years old female with multiple hospitalization, now presents with intractable nausea vomiting and abdominal pain with diarrhea suspicious for gastroenteritis also with some evidence of acute urinary tract infection. Also she had some fever yesterday of 100.1. Currently she is cove red with ceftriaxone and Flagyl area stool studies and see this percent. Urine culture is pending. Also decorative cutting machine tender on the case for her left bundle branch block and A. fib and currently she is on Eliquis 5 mg recommended by decorative cutting machine tender, patient informed and she agrees to continue with it. Patient is eating 25% of her diet and discussed with bed side nurse to put her on liquid diet 05/25/2021 Patient is still have lower abdominal pain and diarrhea was not much difference is from yesterday after she was started on antibiotic. However no more fever only one episode 2 nights Ago. No vomiting and she tolerates liquid diet well. Stool study and C. diff are still pending however urine culture came back negative. Patient remains on ceftriaxone and Flagyl and Eliquis recommended by cardiologi Patient blood pressure is running good because of this I'm going to lower her normal saline down to 50 mL/h. 05/26/2021 pt states her diarrhea is improving from 10/day to twice yesterday and started becoming more formed , yesterday she got only one dose of cholestyramine, most likely pt is improving with antibiotics , she still has significant lower abd pain , surgery team think this is chronic pt stool lactoferrin is positive , stool culture is pending once culture is back, we may consider patient for discharge. Other than that her labs and hemodynamically stable and she is improving. Cardiology recommended no further workup and follow-up as an outpatient 05/27/2011 Patient vomited twice last night and she states that her bowel movement is loose again she still complaining of from increasing pain and tenderness, mainly in the lower abdomen but today also little more in the upper abdomen. There is also some mild guarding It looks like the patient under treated with pain management as she is on morphine 2 mg every 8 hours, we increased the dose to 4 mg every 8 hours and add [place] 5 mg when necessary. However with a repeat CT of the abdomen and pelvis with oral contrast only for a follow-up. She is eating 50-75% of her diet and we will repeat labs in the morning. Surgery team on the case C. diff is negative, she remains on ceftriaxone and Flagyl, stool lactoferrin is positive and stool culture is pending. 05/28/2021 Patient is still complaining from abdominal pain, diarrhea and vomiting. Patient states that she has chronic abdominal pain 5/10 however since admission has increased up to 90/10. She still have loose bowel movement like twice this morning, she still vomiting. He was some report of dyspnea but she was not tachypneic or dyspneic at rest when I saw her this morning with no basal crepitation. Chest x-ray showing atelectasis versus early infiltrate. But patient with no fever or leukocytosis. CT of the abdomen and pelvis yesterday showing possible left colitis and patient stool cultures came back negative although lactoferrin stool was positive. Also significantly her hemoglobin dropped today from 10 on admission down to 9.5 and 7.2 today. Therefore Eliquis started on admission was held, we placed her on Protonix from oral to IV once daily, also 2 anemia workup including occult blood in the stool and continue with gentle hydration of normal saline at 75 mL/h Also continue with antibiotics at [facility] for respiratory and abdominal symptoms. C. diff is negative. Surgical team on the case 05/29/2021 Patient still reports nausea vomiting and diarrhea, or abdominal pain looks chronic, hemodynamically stable. GI service consult is appreciated they recommend Imodium and endoscopy Surgical team are planning for colonoscopy on if still symptomatic Patient remains on Flagyl, ceftriaxone, Questran and Imodium and today. Also she is on Eliquis home dose of 5 mg and normal saline at 75 mL/h 05/30/2021 Patient still complaining of from diarrhea, nausea vomiting and abdominal pain She is hemodynamically stable Repeat hemoglobin is pending Plan for possible colonoscopy on She remains on subcu heparin GI and surgery teams on the case 05/31/2021 Patient still complaining from lower abdominal pain and tenderness, she still has diarrhea but vomiting stopped. She is hemodynamically stable, afebrile. No tachycardia. However her hemoglobin dropped 8.1 down to 6.6 today. We will do anemia workup and check occult blood in the stool. Hold subcutaneous heparin and continue with Protonix. Eliquis recommended by decorative cutting machine tender is still on hold. Cryptosporidium and Giardia test the stool came back negative. Start an ferrous sulfate Patient is to undergo colonoscopy tomorrow with GI team 06/01/2021 Patient remains symptomatic with lower abdominal pain, which is large part of it is chronic, no vomiting but still have diarrhea, Patient is getting a preparation with [facility] The plan for colonoscopy tomorrow with GI service Repeat hemoglobin yesterday was 8.7 and today 8.9, it looks like 6.6 was a lab error. We will resume her subcutaneous heparin She has evidence of anemia of chronic disease, B12 656 and folate 6.9 which are within the reference range 06/02/2021 Patient still with significant lower abdominal pain and diarrhea but no vomiting. She underwent EGD and colonoscopy today with GI service as below 1. Upper endoscopy revealed evidence of gastric bypass surgery with Suzanna-en-Y anastomosis and appeared normal. Mild distal esophagitis 2. Colonoscopy revealed sigmoid anastomotic tight stricture at 10 cm from the anal verge and evidence of colitis just proximal to the stricture extending to 20 cm with mucosal erythema friability and superficial ulcerations status post biopsies. Rest of the colon appeared normal. The patient started on liquid diet today. GI and surgery team are going to discuss the findings of colonoscopy for further recommendation for now. Follow-up biopsy from the colonoscopy. 06/03/2021 Patient is currently resting in the bed. States that her abdominal pain is better today. Patient is status post EGD and colonoscopy showed mild distal esophagitis and stricture at the previous colorectal anastomosis with mild colitis proximal to that. Patient was started full liquid diet and advance as tolerated. Otherwise patient has been afebrile. No complaints of nausea or vomiting. No chest pain or shortness of breath. Patient is being continued antibiotics and follow-up ceftriaxone and Flagyl. Laboratory data reviewed. General surgery is on board. 06/05/2021 Patient is seen today and currently sleeping although arousable. Patient is weak and continues with abdominal pain. Patient is having loose bowel movements and denying any blood noted. Patient hemoglobin is 6.8 today and has dropped from yesterday. Will repeat labs and monitor closely. Encouraged oral intake and increased activity as tolerated. GI following and general surgery as well. Patient to continue with IV abx for now. Patient is afebrile. Patient denies chest pain or palpitations. Review of systems: Constitutional: reports of fatigue, no reports of fever, or chills Cardiovascular: No reports of chest pain or palpitations Respiratory: No reports of shortness of breath or cough GI: No reports of nausea, vomiting, reporting loose stools, reports abdomen pain : No reports of dysuria or retention Neurovascular: reports of generalized weakness All medications have been reviewed Active Medications Acetaminophen (Acetaminophen Tab 325 Mg Tab) 650 mg PO Q4HR PRN PRN Reason: Fever and/ or Mild Pain Last Admin: 06/02/21 02:28 Dose: 650 mg Documented by: Hydrocodone Bitart/Acetaminophen (Hydrocodone/Apap 5-325mg 1 Each Tab) 1 each PO Q6HR PRN PRN Reason: Pain Last Admin: 06/05/21 20:10 Dose: 1 each Documented by: Cholecalciferol (Cholecalciferol 25 Mcg (1000 Iu) Tablet) 25 mcg PO DAILY [facility] Last Admin: 06/05/21 10:07 Dose: 25 mcg Documented by: Dicyclomine HCl (Dicyclomine 20 Mg Tab) 20 mg PO QID PRN PRN Reason: Dyspepsia Last Admin: 06/04/21 04:35 Dose: 20 mg Documented by: Ferrous Sulfate (Ferrous Sulfate 325 Mg Tab) 325 mg PO BID-W/MEALS [facility] Last Admin: 06/05/21 16:53 Dose: 325 mg Documented by: Gabapentin (Gabapentin 100 Mg Cap) 300 mg PO TID [facility] Last Admin: 06/05/21 20:10 Dose: 300 mg Documented by: Heparin Sodium (Porcine) (Heparin Sodium,Porcine/Pf 5,000 Unit/0.5 Ml Syringe) 5,000 unit SQ Q12HR [facility] Last Admin: 06/05/21 20:10 Dose: 5,000 unit Documented by: Sodium Chloride (Saline 0.9%) 1,000 mls @ 75 mls/hr IV .[id number] [facility] Last Admin: 06/05/21 03:36 Dose: 75 mls/hr Documented by: Metronidazole 500 mg/ IV (Solution) 100 mls @ 100 mls/hr IVPB Q8HR [facility] Last Admin: 06/05/21 16:53 Dose: 100 mls/hr Documented by: Ceftriaxone Sodium 1 gm/ (Sodium Chloride) 50 mls @ 100 mls/hr IVPB Q24HR [facility] Last Admin: 06/05/21 10:08 Dose: 100 mls/hr Documented by: Lactated Ringer's (Lactated Ringers) 1,000 mls @ 20 mls/hr IV .Q24H [facility] Levothyroxine Sodium (Levothyroxine 100 Mcg Tab) 200 mcg PO DAILY@0630 [facility] Last Admin: 06/05/21 06:08 Dose: 200 mcg Documented by: Loperamide HCl (Loperamide 2 Mg Cap) 2 - 4 mg PO QID PRN PRN Reason: Diarrhea Last Admin: 05/30/21 08:11 Dose: 2 mg Documented by: Losartan Potassium (Losartan 25 Mg Tab) 25 mg PO DAILY [facility] Last Admin: 06/05/21 10:07 Dose: 25 mg Documented by: Metoprolol Tartrate (Metoprolol Tartrate 50 Mg Tab) 100 mg PO Q12H [facility] Last Admin: 06/05/21 17:27 Dose: 100 mg Documented by: Miscellaneous Information (Magnesium Replacement Protocol 1 Each Misc) 1 each MISCELLANE DAILY PRN; Protocol PRN Reason: Per Protocol Morphine Sulfate (Morphine Sulfate 4 Mg/Ml Syringe) 4 mg IV Q4HR PRN PRN Reason: Severe Pain Last Admin: 06/05/21 21:12 Dose: 4 mg Documented by: Multivitamins (Multivitamins, Thera 1 Each Tab) 1 each PO DAILY [facility] Last Admin: 06/05/21 10:07 Dose: 1 each Documented by: Naloxone HCl (Naloxone 0.4 Mg/Ml 1 Ml Vial) 0.2 mg IV Q2M PRN PRN Reason: Opioid Reversal Nitroglycerin (Nitroglycerin Sl Tabs 0.4 Mg Tab) 0.4 mg SUBLINGUAL Q5M PRN PRN Reason: Chest Pain Ondansetron HCl (Ondansetron 4 Mg/2 Ml Vial) 4 mg IVP Q8HR PRN PRN Reason: Nausea And Vomiting Last Admin: 06/05/21 18:46 Dose: 4 mg Documented by: Pantoprazole Sodium (Pantoprazole 40 Mg/10 Ml Vial) 40 mg IVP DAILY [facility] Last Admin: 06/05/21 10:08 Dose: 40 mg Documented by: PHYSICAL EXAMINATION: GENERAL: The patient is alert and oriented x3, well developed, well nourished. Obese. HEENT: Pupils are round and equally reacting to light. EOMI. does have scleral icterus. No conjunctival pallor. Normocephalic, atraumatic. No pharyngeal erythema. No thyromegaly. CARDIOVASCULAR: S1 and S2 PULMONARY: Lung sounds are clear to auscultation ABDOMEN: soft. Tender on palpation. Non-distended, normoactive bowel sounds. No palpable organomegaly. MUSCULOSKELETAL: No joint swelling or deformity. EXTREMITIES: No cyanosis, clubbing, or pedal edema. NEUROLOGICAL: Gross neurological examination did not reveal any focal deficits. diffuse weakness SKIN: No rashes. no lesions, pale Assessment: -Sigmoid Colitis with stricture, with Intractable nausea and vomiting and diarrhea. CT showing focal descending colitis. Colonoscopy: sigmoid anastomotic tight stricture at 10 cm from the anal verge and evidence of colitis just proximal to the stricture extending to 20 cm with mucosal erythema friability and superficial ulcerations status post biopsies -Anemia of chronic disease, hemoglobin is 6.8 today and will monitor closely and repeat labs -Abdominal pain- acute on chronic. -Atypical chest pain. Cardiac causes ruled out. Chest pain resolved -Left bundle branch block -Paroxysmal atrial fibrillation on anticoagulation with Eliquis.(Held for anemia) -Nonischemic cardiomyopathy ejection fraction 35 to 40% -History of bowel resection and bariatric surgery -Hypertension -Hyperlipidemia -GI prophylaxis -DVT prophylaxis sub q heparin -Full code Plan: This is a pleasant 75 years old female who presents with UTI/gastroenteritis and left bundle-branch block. Continue with normal saline 75 mm/h, patient is continued on ceftriaxone and flagyl and general surgery following GI following and patient underwent EGD/colonoscopy as mentioned previously Surgery team following, patient will likely need surgical intervention for the noted stricture and will discuss with surgery Cardiology team following as needed and Eliquis is on hold and patient c ontinued on IV heparin. Lead [employer] recommended follow-up as an outpatient. hemoglobin is 6.8 today and will repeat labs, no active bleeding noted Labs and medication were reviewed.. Continue same treatment. Continue with symptomatic treatment. Resume home medication. Monitor lytes and vitals. DVT and GI prophylaxis. Further recommendations as per clinical course of the patient The impression and plan of care has been dictated by Kaelyn Vila nurse practitioner as directed. MD Soraya I have performed a history and examination and MDM of this patient, discussed the same with the dictator, and agree with the dictator's assessment and plan as written ,documented as a scribe. Based on total visit time, I have performed more than 50% of the visit. Any additional findings or plans will be noted. Objective - Vital Signs Vital signs: Vital Signs Temp 97.6 F 06/05/21 05:00 Pulse 75 06/05/21 05:00 Resp 16 06/05/21 05:00 BP 106/68 06/05/21 05:00 Pulse Ox 97 06/05/21 05:00 Intake & Output 06/04/21 06/05/21 06/05/21 18:59 06:59 18:59 Intake Total 2170 160 Balance 2170 160 Intake: IV 160 Sodium Chloride 0.9% 1, 60 000 ml @ 75 mls/hr IV . [id number] [facility] Rx#:[id number] metroNIDAZOLE-NS PMX 500 100 mg In Saline 1 100ml.bag @ 100 mls/hr IVPB Q8HR [facility] Rx#:[id number] Intake, IV Titration 320 Amount Sodium Chloride 0.9% 1, 70 000 ml @ 75 mls/hr IV . [id number] [facility] Rx#:[id number] cefTRIAXone 1 gm In 50 Sodium Chloride 0.9% 50 ml @ 100 mls/hr IVPB Q24HR [facility] Rx#:[id number] metroNIDAZOLE-NS PMX 500 200 mg In Saline 1 100ml.bag @ 100 mls/hr IVPB Q8HR [facility] Rx#:[id number] Oral 1850 Other: Voiding Method Bedside Commode # Voids 4 # Bowel Movements 3 - Labs CBC & Chem 7: 06/05/21 06:11 06/05/21 06:11 Labs: Microbiology - Last 24 Hours (Table) 05/29/21 18:00 Stool Culture - Final Stool
[2021-06-06] MEDS: MORPHINE SULFATE 4 MG/ML SYRINGE IV PRN ×5 (00:34→22:23)
[2021-06-06] MEDS: metroNIDAZOLE-NS PMX 500 MG in SALINE 1 100ML.BAG IVPB SCH ×4 (00:34→23:29)
[2021-06-06] MEDS: METOPROLOL TARTRATE 50 MG TAB PO SCH ×2 (04:53→18:17)
[2021-06-06] MEDS: LEVOTHYROXINE 100 MCG TAB PO SCH (04:53)
[2021-06-06] MEDS: SODIUM CHLORIDE 0.9% 1,000 ML IV SCH ×3 (05:10→20:30)
[2021-06-06 07:33] LABS: African American GFR (CKD) >90 (>60 ml/min/1.73 sqM); Anion Gap -2 mmol/L; Blood Urea Nitrogen 3 mg/dL (7-17); Calcium 7.2 mg/dL (8.4-10.2); Carbon Dioxide 22 mmol/L (22-30); Chloride 112 mmol/L (98-107); Glucose 84 mg/dL (74-99); Non-African American GFR(CKD) >90 (>60 ml/min/1.73 sqM); Potassium 3.7 mmol/L (3.5-5.1); Sodium 132 mmol/L (137-145)
[2021-06-06 07:37] LABS: Anisocytosis Slight; HCT 26.5 % (34.0-46.0); HGB 8.1 gm/dL (11.4-16.0); Hypochromasia Marked; MCH 28.4 pg (25.0-35.0); MCHC 30.4 g/dL (31.0-37.0); MCV 93.3 fL (80.0-100.0); Macrocytosis Slight; Mean Platelet Volume 7.9; Platelet Count 366 k/uL (150-450); Poikilocytosis Slight; RBC 2.84 m/uL (3.80-5.40); RDW 19.3 % (11.5-15.5); WBC 5.3 k/uL (3.8-10.6)
[2021-06-06] MEDS: GABAPENTIN 100 MG CAP PO SCH ×3 (07:40→20:42)
[2021-06-06] MEDS: FERROUS SULFATE 325 MG TAB PO SCH ×2 (07:41→16:20)
[2021-06-06] MEDS: MULTIVITAMINS, THERA 1 EACH TAB PO SCH (07:41)
[2021-06-06] MEDS: CHOLECALCIFEROL 25 MCG (1000 IU) TABLET PO SCH (07:41)
[2021-06-06] MEDS: PANTOPRAZOLE 40 MG/10 ML VIAL IVP SCH (07:42)
[2021-06-06] MEDS: HEPARIN SODIUM,PORCINE/PF 5,000 UNIT/0.5 ML SYRINGE SQ SCH ×2 (08:03→20:42)
[2021-06-06 08:11] LABS: Eosinophils # (M) 0.16 k/uL (0-0.7); Lymphocytes # (M) 2.49 k/uL (1.0-4.8); Monocytes # (M) 0.48 k/uL (0-1.0); Neutrophils # (M) 2.17 k/uL (1.3-7.7); Neutrophils % (M) 41 %; Nucleated Red Blood Cells 0 /100 WBC (0-0); Total Cells Counted 100
[2021-06-06] MEDS: LOSARTAN 25 MG TAB PO SCH (09:59)
--- NOTE | 2021-06-06 10:36 | P.PN ---
Subjective Progress Note Date: 06/04/21 Patient is a 75-year-old female with a known history of paroxysmal atrial fibrillation on anticoagulation with Eliquis, coronary artery disease with history of stent placement, GERD, hypertension, chronic back pain, laryngeal cancer status post treatment 20 years ago, osteoarthritis, hearing disorder/deaf ness and hypothyroidism and previous history of smoking, anxiety/depression and panic disorder and other multiple medical problems presents to ER with complaints of diarrhea and abdominal pain mainly lower half and also experiencing 3 episodes of vomiting. Patient felt nauseous. She is also having decreased appetite. Patient presents to ER. Denied any complaints of chest pain or shortness breath. Does have nausea and episodes of vomiting. No headache or dizziness or lightheadedness. Denies any dysuria or hematuria. Denies any hematemesis or melena. Patient has been afebrile on admission. Pulse ox 99% on room air. On admission CT of the abdomen pelvis was done which showed intrasclerotic vascular disease. Previous bariatric surgery and sigmoid colon surgery. No evidence of bowel obstruction. No adverse change compared to old exam. Scoliotic deformity with spinal stenosis L4-L5 spondylosis. No change. EKG showed left axis deviation and left bundle branch block. And atrial fibrillation with heart rate 78. Laboratory showed WBC 4.6 hemoglobin 10.0 and platelets 360 Sodium 132 potassium 3.7 chloride 106 bicarb is 23 BUN 12 and creatinine 0.44 calcium 8.2 albumin 2.4 and lipase level is 21 Urinalysis is cloudy nitrite positive and small leukoesterase with elevated WBCs and RBCs less than 1. COVID-19 PCR not detected. Patient was recently admitted to the hospital due to altered mental status/encephalopathy and suspected due to narcotic pain medications use. Neurological work-up has been negative. Patient was also complaining of blood in the stools. Patient was prepped for colonoscopy but procedure was aborted due to tachyarrhythmia. Seen by cardiology and was started on metoprolol. Patient is also on Eliquis for paroxysmal atrial fibrillation. Patient did improve clinically and was discharged home with home care. Subjective: I'm resume the care of the patient on 05/24/2021 This is a pleasant 75 years old female with multiple hospitalization, now p resents with intractable nausea vomiting and abdominal pain with diarrhea suspicious for gastroenteritis also with some evidence of acute urinary tract infection. Also she had some fever yesterday of 100.1. Currently she is covered with ceftriaxone and Flagyl area stool studies and see this percent. Urine culture is pending. Also tow truck dispatcher on the case for her left bundle branch block and A. fib and currently she is on Eliquis 5 mg recommended by tow truck dispatcher, patient informed and she agrees to continue with it. Patient is eating 25% of her diet and discussed with bed side nurse to put her on liquid diet 05/25/2021 Patient is still have lower abdominal pain and diarrhea was not much difference is from yesterday after she was started on antibiotic. However no more fever only one episode 2 nights Ago. No vomiting and she tolerates liquid diet well. Stool study and C. diff are still pending however urine culture came back negative. Patient remains on ceftriaxone and Flagyl and Eliquis recommended by tow truck dispatcher Patient blood pressure is running good because of this I'm going to lower her normal saline down to 50 mL/h. 05/26/2021 pt states her diarrhea is improving from 10/day to twice yesterday and started becoming more formed , yesterday she got only one dose of cholestyramine, most likely pt is improving with antibiotics , she still has significant lower abd pain , surgery team think this is chronic pt stool lactoferrin is positive , stool culture is pending once culture is back, we may consider patient for discharge. Other than that her labs and hemodynamically stable and she is improving. Cardiology recommended no further workup and follow-up as an outpatient 05/27/2011 Patient vomited twice last night and she states that her bowel movement is loose again she still complaining of from increasing pain and tenderness, mainly in the lower abdomen but today also little more in the upper abdomen. There is also some mild guarding It looks like the patient under treated with pain management as she is on morphine 2 mg every 8 hours, we increased the dose to 4 mg every 8 hours and add [place] 5 mg when necessary. However with a repeat CT of the abdomen and pelvis with oral contrast only for a follow-up. She is eating 50-75% of her diet and we will repeat labs in the morning. Surgery team on the case C. diff is negative, she remains on ceftriaxone and Flagyl, stool lactoferrin is positive and stool culture is pending. 05/28/2021 Patient is still complaining from abdominal pain, diarrhea and vomiting. Patient states that she has chronic abdominal pain 5/10 however since admission has increased up to 90/10. She still have loose bowel movement like twice this morning, she still vomiting. He was some report of dyspnea but she was not tachypneic or dyspneic at rest when I saw her this morning with no basal crepitation. Chest x-ray showing atelectasis versus early infiltrate. But patient with no fever or leukocytosis. CT of the abdomen and pelvis yesterday showing possible left colitis and patient stool cultures came back negative although lactoferrin stool was positive. Also significantly her hemoglobin dropped today from 10 on admission down to 9.5 and 7.2 today. Therefore Eliquis started on admission was held, we placed her on Protonix from oral to IV once daily, also 2 anemia workup including occult blood in the stool and continue with gentle hydration of normal saline at 75 mL/h Also continue with antibiotics at [facility] for respiratory and abdominal symptoms. C. diff is negative. Surgical team on the case 05/29/2021 Patient still reports nausea vomiting and diarrhea, or abdominal pain looks chronic, hemodynamically stable. GI service consult is appreciated they recommend Imodium and endoscopy Surgical team are planning for colonoscopy on if still symptomatic Patient remains on Flagyl, ceftriaxone, Questran and Imodium and today. Also she is on Eliquis home dose of 5 mg and normal saline at 75 mL/h 05/30/2021 Patient still complaining of from diarrhea, nausea vomiting and abdominal pain She is hemodynamically stable Repeat hemoglobin is pending Plan for possible colonoscopy on She remains on subcu heparin GI and surgery teams on the case 05/31/2021 Patient still complaining from lower abdominal pain and tenderness, she still has diarrhea but vomiting stopped. She is hemodynamically stable, afebrile. No tachycardia. However her hemoglobin dropped 8.1 down to 6.6 today. We will do anemia workup and check occult blood in the stool. Hold subcutaneous heparin and continue with Protonix. Eliquis recommended by tow truck dispatcher is still on hold. Cryptosporidium and Giardia test the stool came back negative. Start an ferrous sulfate Patient is to undergo colonoscopy tomorrow with GI team 06/01/2021 Patient remains symptomatic with lower abdominal pain, which is large part of it is chronic, no vomiting but still have diarrhea, Patient is getting a preparation with [employer] The plan for colonoscopy tomorrow with GI service Repeat hemoglobin yesterday was 8.7 and today 8.9, it looks like 6.6 was a lab error. We will resume her subcutaneous heparin She has evidence of anemia of chronic disease, B12 656 and folate 6.9 which are within the reference range 06/02/2021 Patient still with significant lower abdominal pain and diarrhea but no vomiting. She underwent EGD and colonoscopy today with GI service as below 1. Upper endoscopy revealed evidence of gastric bypass surgery with Suzanna-en-[id number] anastomosis and appeared normal. Mild distal esophagitis 2. Colonoscopy revealed sigmoid anastomotic tight stricture at 10 cm from the anal verge and evidence of colitis just proximal to the stricture extending to 20 cm with mucosal erythema friability and superficial ulcerations status post biopsies. Rest of the colon appeared normal. The patient started on liquid diet today. GI and surgery team are going to discuss the findings of colonoscopy for further recommendation for now. Follow-up biopsy from the colonoscopy. 06/03/2021 Patient is currently resting in the bed. States that her abdominal pain is better today. Patient is status post EGD and colonoscopy showed mild distal esophagitis and stricture at the previous colorectal anastomosis with mild colitis proximal to that. Patient was started full liquid diet and advance as tolerated. Otherwise patient has been afebrile. No complaints of nausea or vomiting. No chest pain or shortness of breath. Patient is being continued antibiotics and follow-up ceftriaxone and Flagyl. Laboratory data reviewed. General surgery is on board. 06/04/2021 Patient is currently resting in bed. She complains of abdominal pain but no change compared to yesterday. Tolerating clear liquids. Patient still having diarrhea. General surgery is on board. Patient is status post colonoscopy showed stricture at the previous colorectal anastomosis. Denied any nausea or vomiting. No chest pain or shortness breath. No fever no chills. Patient is being continued on antibiotics of on ceftriaxone and Flagyl. Laboratory data reviewed. Current medications reviewed. Objective - Vital Signs Vital signs: Vital Signs Temp 98 F 06/04/21 12:30 Pulse 63 06/04/21 12:30 Resp 18 06/04/21 12:30 BP 113/72 06/04/21 12:30 Pulse Ox 96 06/04/21 12:30 Intake & Output 06/03/21 06/04/21 06/04/21 18:59 06:59 18:59 Intake Total 150 350 Balance 150 350 Weight 84.5 kg Intake: IV 100 metroNIDAZOLE-NS PMX 500 100 mg In Saline 1 100ml.bag @ 100 mls/hr IVPB Q8HR [facility] Rx#:[id number] Intake, IV Titration 50 Amount cefTRIAXone 1 gm In 50 Sodium Chloride 0.9% 50 ml @ 100 mls/hr IVPB Q24HR [facility]FR[facility] Rx#:[id number] Oral 350 Other: # Voids 3 1 # Bowel Movements 1 - Exam - Exam GENERAL: The patient is alert and oriented x3, not in any acute distress. Well developed, well nourished. HEENT: Pupils are round and equally reacting to light. EOMI. No scleral icterus. No conjunctival pallor. Normocephalic, atraumatic. No pharyngeal erythema. No thyromegaly. CARDIOVASCULAR: S1 and S2 present. No murmurs, rubs, or gallops. PULMONARY: Chest is clear to auscultation, no wheezing or crackles. - ABDOMEN: Soft, periumbilical tenderness with no rebound tenderness with little guarding, nondistended, normoactive bowel sounds. No palpable organomegaly. MUSCULOSKELETAL: No joint swelling or deformity. EXTREMITIES: No cyanosis, clubbing, or pedal edema. NEUROLOGICAL: Gross neurological examination did not reveal any focal deficits. SKIN: No rashes. no petechiae. - Labs CBC & Chem 7: 06/06/21 06:50 06/06/21 06:50 Labs: Abnormal Lab Results - Last 24 Hours (Table) 06/04/21 06/04/21 Range/Units 06:34 06:34 WBC 10.33 H (4.50-10.00) X 10*3/uL RBC 3.13 L (4.10-5.20) X 10*6/uL Hgb 8.5 L (12.0-15.0) g/dL Hct 29.0 L (37.2-46.3) % MCHC 29.3 L (32.0-37.0) g/dL RDW 20.0 H (11.5-14.5) % Monocytes # 1.25 H (0.20-1.00) X 10*3/uL Sodium 133 L (135-145) mmol/L Carbon Dioxide 15.4 L (20.0-27.5) mmol/L Anion Gap 9.60 L (10.00-18.00) mmol/L BUN 3.4 L (9.0-27.0) mg/dL Creatinine 0.5 L (0.6-1.5) mg/dL BUN/Creatinine Ratio 6.80 L (12.00-20.00) Ratio Calcium 7.7 L (8.7-10.3) mg/dL Assessment and Plan Assessment: -Sigmoid Colitis with stricture, with Intractable nausea and vomiting and diarrhea. CT showing focal descending colitis. Colonoscopy: sigmoid anastomotic tight stricture at 10 cm from the anal verge and evidence of colitis just proximal to the stricture extending to 20 cm with mucosal erythema friability and superficial ulcerations status post biopsies -Anemia of chronic disease, hemoglobin is stable -Abdominal pain- acute on chronic. -Atypical chest pain. Cardiac causes ruled out. Chest pain resolved -Left bundle branch block -Paroxysmal atrial fibrillation on anticoagulation with Eliquis.(Held for anemia) -Nonischemic cardiomyopathy ejection fraction 35 to 40% -History of bowel resection and bariatric surgery -Hypertension -Hyperlipidemia -GI and DVT prophylaxis patient is already on Eliquis Plan: This is a pleasant 75 years old female who presents with UTI/gastroenteritis and left bundle-branch block. Continue with normal saline 75 mm/h, continue with ceftriaxone and Flagyl GI and general surgery is following. [employer] recommended follow-up as an outpatient.Eliquis is on hold for possible surgery. If hemoglobin is stable, resume therapeutic dose of anticoagulation, hold known to make sure hemoglobin is a stable Labs and medication were reviewed.. Continue same treatment. Continue with symptomatic treatment. Resume home medication. Monitor lytes and vitals. DVT and GI prophylaxis. Further recommendations as per clinical course of the patient DVT prophylaxis: on subcutaneous heparin GI Prophylaxis: Ppi Time with Patient: Greater than 30
[2021-06-06] MEDS: HYDROcodone/APAP 5-325MG 1 EACH TAB PO PRN ×2 (11:00→16:20)
[2021-06-06 14:46] VITALS: BMI 31.9
--- NOTE | 2021-06-06 15:45 | P.PN ---
Subjective Progress Note Date: 06/06/21 This is a pleasant 75 years old female with multiple hospitalization, now presents with intractable nausea vomiting and abdominal pain with diarrhea suspicious for gastroenteritis also with some evidence of acute urinary tract infection. Also she had some fever yesterday of 100.1. Currently she is cove red with ceftriaxone and Flagyl area stool studies and see this percent. Urine culture is pending. Also cutter hot knife on the case for her left bundle branch block and A. fib and currently she is on Eliquis 5 mg recommended by cutter hot knife, patient informed and she agrees to continue with it. Patient is eating 25% of her diet and discussed with bed side nurse to put her on liquid diet 05/25/2021 Patient is still have lower abdominal pain and diarrhea was not much difference is from yesterday after she was started on antibiotic. However no more fever only one episode 2 nights Ago. No vomiting and she tolerates liquid diet well. Stool study and C. diff are still pending however urine culture came back negative. Patient remains on ceftriaxone and Flagyl and Eliquis recommended by cardiologi Patient blood pressure is running good because of this I'm going to lower her normal saline down to 50 mL/h. 05/26/2021 pt states her diarrhea is improving from 10/day to twice yesterday and started becoming more formed , yesterday she got only one dose of cholestyramine, most likely pt is improving with antibiotics , she still has significant lower abd pain , surgery team think this is chronic pt stool lactoferrin is positive , stool culture is pending once culture is back, we may consider patient for discharge. Other than that her labs and hemodynamically stable and she is improving. Cardiology recommended no further workup and follow-up as an outpatient 05/27/2011 Patient vomited twice last night and she states that her bowel movement is loose again she still complaining of from increasing pain and tenderness, mainly in the lower abdomen but today also little more in the upper abdomen. There is also some mild guarding It looks like the patient under treated with pain management as she is on morphine 2 mg every 8 hours, we increased the dose to 4 mg every 8 hours and add [place] 5 mg when necessary. However with a repeat CT of the abdomen and pelvis with oral contrast only for a follow-up. She is eating 50-75% of her diet and we will repeat labs in the morning. Surgery team on the case C. diff is negative, she remains on ceftriaxone and Flagyl, stool lactoferrin is positive and stool culture is pending. 05/28/2021 Patient is still complaining from abdominal pain, diarrhea and vomiting. Patient states that she has chronic abdominal pain 5/10 however since admission has increased up to 90/10. She still have loose bowel movement like twice this morning, she still vomiting. He was some report of dyspnea but she was not tachypneic or dyspneic at rest when I saw her this morning with no basal crepitation. Chest x-ray showing atelectasis versus early infiltrate. But patient with no fever or leukocytosis. CT of the abdomen and pelvis yesterday showing possible left colitis and patient stool cultures came back negative although lactoferrin stool was positive. Also significantly her hemoglobin dropped today from 10 on admission down to 9.5 and 7.2 today. Therefore Eliquis started on admission was held, we placed her on Protonix from oral to IV once daily, also 2 anemia workup including occult blood in the stool and continue with gentle hydration of normal saline at 75 mL/h Also continue with antibiotics at [place] for respiratory and abdominal symptoms. C. diff is negative. Surgical team on the case 05/29/2021 Patient still reports nausea vomiting and diarrhea, or abdominal pain looks chronic, hemodynamically stable. GI service consult is appreciated they recommend Imodium and endoscopy Surgical team are planning for colonoscopy on if still symptomatic Patient remains on Flagyl, ceftriaxone, Questran and Imodium and today. Also she is on Eliquis home dose of 5 mg and normal saline at 75 mL/h 05/30/2021 Patient still complaining of from diarrhea, nausea vomiting and abdominal pain She is hemodynamically stable Repeat hemoglobin is pending Plan for possible colonoscopy on She remains on subcu heparin GI and surgery teams on the case 05/31/2021 Patient still complaining from lower abdominal pain and tenderness, she still has diarrhea but vomiting stopped. She is hemodynamically stable, afebrile. No tachycardia. However her hemoglobin dropped 8.1 down to 6.6 today. We will do anemia workup and check occult blood in the stool. Hold subcutaneous heparin and continue with Protonix. Eliquis recommended by cutter hot knife is still on hold. Cryptosporidium and Giardia test the stool came back negative. Start an ferrous sulfate Patient is to undergo colonoscopy tomorrow with GI team 06/01/2021 Patient remains symptomatic with lower abdominal pain, which is large part of it is chronic, no vomiting but still have diarrhea, Patient is getting a preparation with [facility] The plan for colonoscopy tomorrow with GI service Repeat hemoglobin yesterday was 8.7 and today 8.9, it looks like 6.6 was a lab error. We will resume her subcutaneous heparin She has evidence of anemia of chronic disease, B12 656 and folate 6.9 which are within the reference range 06/02/2021 Patient still with significant lower abdominal pain and diarrhea but no vomiting. She underwent EGD and colonoscopy today with GI service as below 1. Upper endoscopy revealed evidence of gastric bypass surgery with Suzanna-en-Y anastomosis and appeared normal. Mild distal esophagitis 2. Colonoscopy revealed sigmoid anastomotic tight stricture at 10 cm from the anal verge and evidence of colitis just proximal to the stricture extending to 20 cm with mucosal erythema friability and superficial ulcerations status post biopsies. Rest of the colon appeared normal. The patient started on liquid diet today. GI and surgery team are going to discuss the findings of colonoscopy for further recommendation for now. Follow-up biopsy from the colonoscopy. 06/03/2021 Patient is currently resting in the bed. States that her abdominal pain is better today. Patient is status post EGD and colonoscopy showed mild distal esophagitis and stricture at the previous colorectal anastomosis with mild colitis proximal to that. Patient was started full liquid diet and advance as tolerated. Otherwise patient has been afebrile. No complaints of nausea or vomiting. No chest pain or shortness of breath. Patient is being continued antibiotics and follow-up ceftriaxone and Flagyl. Laboratory data reviewed. General surgery is on board. 06/05/2021 Patient is seen today and currently sleeping although arousable. Patient is weak and continues with abdominal pain. Patient is having loose bowel movements and denying any blood noted. Patient hemoglobin is 6.8 today and has dropped from yesterday. Will repeat labs and monitor closely. Encouraged oral intake and increased activity as tolerated. GI following and general surgery as well. Patient to continue with IV abx for now. Patient is afebrile. Patient denies chest pain or palpitations. 06/06/2021 Patient is seen today and is scheduled to undergo endoscopic intervention with Dr. Burt today and currently nothing by mouth. Patient continues to report abdominal pain that states is severe. Patient has not had blood noted in the stool and did have a reported as loose stool this morning and nothing since. Patient also did receive an enema for bowel prep for the colonoscopy. Patient's hemoglobin with no intervention today has improved and is currently 8.1. Patient to continue on ceftriaxone and Flagyl for now until after discussing with surgery about treatment plan moving forward. Will await surgical report. Patient continues with weakness and encouraged to increase activity as tolerated. Patient needs encouragement and constant reinforcement and getting up out of the bed. Review of systems: Constitutional: reports of fatigue, no reports of fever, or chills Cardiovascular: No reports of chest pain or palpitations Respiratory: No reports of shortness of breath or cough GI: reports of nausea, no reports of vomiting, reporting loose stool this morning, reports abdomen pain : No reports of dysuria or retention Neurovascular: reports of generalized weakness All medications have been reviewed Active Medications Acetaminophen (Acetaminophen Tab 325 Mg Tab) 650 mg PO Q4HR PRN PRN Reason: Fever and/ or Mild Pain Last Admin: 06/02/21 02:28 Dose: 650 mg Documented by: Hydrocodone Bitart/Acetaminophen (Hydrocodone/Apap 5-325mg 1 Each Tab) 1 each PO Q6HR PRN PRN Reason: Pain Last Admin: 06/06/21 11:00 Dose: 1 each Documented by: Cholecalciferol (Cholecalciferol 25 Mcg (1000 Iu) Tablet) 25 mcg PO DAILY [facility] Last Admin: 06/06/21 07:41 Dose: 25 mcg Documented by: Dicyclomine HCl (Dicyclomine 20 Mg Tab) 20 mg PO QID PRN PRN Reason: Dyspepsia Last Admin: 06/04/21 04:35 Dose: 20 mg Documented by: Ferrous Sulfate (Ferrous Sulfate 325 Mg Tab) 325 mg PO BID-W/MEALS [facility] Last Admin: 06/06/21 07:41 Dose: 325 mg Documented by: Gabapentin (Gabapentin 100 Mg Cap) 300 mg PO TID [facility] Last Admin: 06/06/21 07:40 Dose: 300 mg Documented by: Heparin Sodium (Porcine) (Heparin Sodium,Porcine/Pf 5,000 Unit/0.5 Ml Syringe) 5,000 unit SQ Q12HR [facility] Last Admin: 06/06/21 08:03 Dose: Not Given Documented by: Sodium Chloride (Saline 0.9%) 1,000 mls @ 75 mls/hr IV .[id number] [facility] Last Admin: 06/06/21 10:38 Dose: Not Given Documented by: Metronidazole 500 mg/ IV (Solution) 100 mls @ 100 mls/hr IVPB Q8HR [facility] Last Admin: 06/06/21 07:41 Dose: 100 mls/hr Documented by: Ceftriaxone Sodium 1 gm/ (Sodium Chloride) 50 mls @ 100 mls/hr IVPB Q24HR [facility] Last Admin: 06/06/21 07:41 Dose: 100 mls/hr Documented by: Lactated Ringer's (Lactated Ringers) 1,000 mls @ 20 mls/hr IV .Q24H [facility] Levothyroxine Sodium (Levothyroxine 100 Mcg Tab) 200 mcg PO DAILY@0630 [facility] Last Admin: 06/06/21 04:53 Dose: 200 mcg Documented by: Loperamide HCl (Loperamide 2 Mg Cap) 2 - 4 mg PO QID PRN PRN Reason: Diarrhea Last Admin: 05/30/21 08:11 Dose: 2 mg Documented by: Losartan Potassium (Losartan 25 Mg Tab) 25 mg PO DAILY [facility] Last Admin: 06/06/21 09:59 Dose: 25 mg Documented by: Metoprolol Tartrate (Metoprolol Tartrate 50 Mg Tab) 100 mg PO Q12H [facility] Last Admin: 06/06/21 04:53 Dose: 100 mg Documented by: Miscellaneous Information (Magnesium Replacement Protocol 1 Each [facility]) 1 each MISCELLANE DAILY PRN; Protocol PRN Reason: Per Protocol Morphine Sulfate (Morphine Sulfate 4 Mg/Ml Syringe) 4 mg IV Q4HR PRN PRN Reason: Severe Pain Last Admin: 06/06/21 14:27 Dose: 4 mg Documented by: Multivitamins (Multivitamins, Thera 1 Each Tab) 1 each PO DAILY [facility] Last Admin: 06/06/21 07:41 Dose: 1 each Documented by: Naloxone HCl (Naloxone 0.4 Mg/Ml 1 Ml Vial) 0.2 mg IV Q2M PRN PRN Reason: Opioid Reversal Nitroglycerin (Nitroglycerin Sl Tabs 0.4 Mg Tab) 0.4 mg SUBLINGUAL Q5M PRN PRN Reason: Chest Pain Ondansetron HCl (Ondansetron 4 Mg/2 Ml Vial) 4 mg IVP Q8HR PRN PRN Reason: Nausea And Vomiting Last Admin: 06/05/21 18:46 Dose: 4 mg Documented by: Pantoprazole Sodium (Pantoprazole 40 Mg/10 Ml Vial) 40 mg IVP DAILY [facility] Last Admin: 06/06/21 07:42 Dose: 40 mg Documented by: PHYSICAL EXAMINATION: GENERAL: The patient is alert and oriented x3, well developed, well nourished. Obese. Ill-appearing HEENT: Pupils are round and equally reacting to light. EOMI. does have scleral icterus. No conjunctival pallor. Normocephalic, atraumatic. No pharyngeal erythema. No thyromegaly. CARDIOVASCULAR: S1 and S2 PULMONARY: Lung sounds are clear to auscultation ABDOMEN: soft. Tender on palpation. Non-distended, normoactive bowel sounds. No palpable organomegaly. MUSCULOSKELETAL: No joint swelling or deformity. EXTREMITIES: No cyanosis, clubbing, or pedal edema. NEUROLOGICAL: Gross neurological examination did not reveal any focal deficits. diffuse weakness SKIN: No rashes. no lesions, pale Assessment: -Sigmoid Colitis with stricture, with Intractable nausea and vomiting and diarrhea. CT showing focal descending colitis. Colonoscopy: sigmoid anastomotic tight stricture at 10 cm from the anal verge and evidence of colitis just proximal to the stricture extending to 20 cm with mucosal erythema friability and superficial ulcerations status post biopsies, scheduled to undergo endoscopic intervention with surgery today -Anemia of chronic disease, hemoglobin is 8.1 today and will monitor closely and repeat labs -Abdominal pain- acute on chronic. -Atypical chest pain. Cardiac causes ruled out. Chest pain resolved -Left bundle branch block -Paroxysmal atrial fibrillation on anticoagulation with Eliquis.(Held for anemia) -Nonischemic cardiomyopathy ejection fraction 35 to 40% -History of bowel resection and bariatric surgery -Hypertension -Hyperlipidemia -GI prophylaxis -DVT prophylaxis sub q heparin -Full code Plan: This is a pleasant 75 years old female who presents with UTI/gastroenteritis and left bundle-branch block. Continue with normal saline 75 mm/h, patient is continued on ceftriaxone and flagyl and general surgery following GI following and patient underwent EGD/colonoscopy as mentioned previously Surgery team following, patient to undergo endoscopic surgical intervention for the noted stricture with Dr. Burt this afternoon and will await report Cardiology team following as needed and Eliquis is on hold and patient continued on subcutaneous heparin. [employer] recommended follow-up as an outpatient. hemoglobin is 8.1 today and will repeat labs, no active bleeding noted Labs and medication were reviewed.. Continue same treatment. Continue with symptomatic treatment. Resume home medication. Monitor lytes and vitals. DVT and GI prophylaxis. Further recommendations as per clinical course of the patient The impression and plan of care has been dictated by Kaelyn Vila, nurse practitioner as directed. MD Soraya I have performed a history and examination and MDM of this patient, discussed the same with the dictator, and agree with the dictator's assessment and plan as written ,documented as a scribe. Based on total visit time, I have performed more than 50% of the visit. Any additional findings or plans will be noted. Objective - Vital Signs Vital signs: Vital Signs Temp 98.4 F 06/06/21 04:49 Pulse 83 06/06/21 04:49 Resp 16 06/06/21 04:49 BP 141/74 06/06/21 04:49 Pulse Ox 95 06/06/21 04:49 Intake & Output 06/05/21 06/06/21 06/06/21 18:59 06:59 18:59 Intake Total 100 Balance 100 Intake: IV 100 metroNIDAZOLE-NS PMX 500 100 mg In Saline 1 100ml.bag @ 100 mls/hr IVPB Q8HR [facility] Rx#:[id number] Other: Voiding Method Bedside Commode Bedside Commode # Voids 3 1 # Bowel Movements 1 - Labs CBC & Chem 7: 06/06/21 06:50 06/06/21 06:50 Labs: Abnormal Lab Results - Last 24 Hours (Table) 06/05/21 06/05/21 06/06/21 Range/Units 06:11 06:11 06:50 RBC 2.48 L 2.84 L (4.10-5.20) X 10*6/uL Hgb 6.8 L* 8.1 L (12.0-15.0) g/dL Hct 22.6 L 26.5 L (37.2-46.3) % MCHC 30.1 L 30.4 L (32.0-37.0) g/dL RDW 20.3 H 19.3 H (11.5-14.5) % Neutrophils # 1.45 L (1.80-7.70) X 10*3/uL Sodium (137-145) mmol/L Chloride 110 H (96-109) mmol/L Carbon Dioxide 18.6 L (20.0-27.5) mmol/L Anion Gap 6.40 L (10.00-18.00) mmol/L BUN 4.1 L (9.0-27.0) mg/dL Creatinine 0.5 L (0.6-1.5) mg/dL BUN/Creatinine Ratio 8.20 L (12.00-20.00) Ratio Calcium 7.5 L (8.7-10.3) mg/dL 06/06/21 Range/Units 06:50 RBC (4.10-5.20) X 10*6/uL Hgb (12.0-15.0) g/dL Hct (37.2-46.3) % MCHC (32.0-37.0) g/dL RDW (11.5-14.5) % Neutrophils # (1.80-7.70) X 10*3/uL Sodium 132 L (137-145) mmol/L Chloride 112 H (96-109) mmol/L Carbon Dioxide (20.0-27.5) mmol/L Anion Gap (10.00-18.00) mmol/L BUN 3 L (9.0-27.0) mg/dL Creatinine 0.42 L (0.6-1.5) mg/dL BUN/Creatinine Ratio (12.00-20.00) Ratio Calcium 7.2 L (8.7-10.3) mg/dL Microbiology - Last 24 Hours (Table) 05/29/21 18:00 Stool Culture - Final Stool
[2021-06-06] MEDS ORDERED: PROPOFOL 10 MG/ML 20 ML VIAL IV ONE (16:56)
[2021-06-06] MEDS ORDERED: ePHEDrine 50 MG/ML 1 ML VIAL ONE (16:56)
[2021-06-06] MEDS ORDERED: IV FLUID CONTINUATION 1,000 ML IV ONE (17:03)
[2021-06-06] MEDS ORDERED: SODIUM CHLORIDE 0.9% 500 ML 500 ML IV ONE (17:26)
--- NOTE | 2021-06-06 17:27 | P.OP ---
Date of Procedure: 06/06/21 Preoperative Diagnosis: Colorectal anastomotic stricture Postoperative Diagnosis: Colorectal anastomotic stricture Procedure(s) Performed: Balloon dilatation of colorectal anastomotic stricture Anesthesia: MAC Surgeon: Phil Burt Pathology: none sent Condition: stable Disposition: PACU Description of Procedure: Patient's placed on the endoscopy table in the lateral position. She had a very poor colon prep. Large amount liquid stool in the rectum. The the colorectal anastomosis was visualized. It appeared to be slightly strictured. A 20 mm balloon was placed across the stricture. The balloon was inflated to 20 mm held position. The balloon was then taken down. There is known to any injury to the colon. The balloon was then withdrawn. Clot scope easily advanced into the proximal colon. The colonoscope was then withdrawn.
[2021-06-06] MEDS: LACTATED RINGERS 1,000 ML IV SCH ×2 (18:16→18:17)
[2021-06-07] MEDS: MORPHINE SULFATE 4 MG/ML SYRINGE IV PRN ×2 (03:17→07:30)
[2021-06-07] MEDS: METOPROLOL TARTRATE 50 MG TAB PO SCH (05:39)
[2021-06-07] MEDS: LEVOTHYROXINE 100 MCG TAB PO SCH (05:39)
[2021-06-07] MEDS: GABAPENTIN 100 MG CAP PO SCH (07:29)
[2021-06-07] MEDS: PANTOPRAZOLE 40 MG/10 ML VIAL IVP SCH (07:30)
[2021-06-07] MEDS: MULTIVITAMINS, THERA 1 EACH TAB PO SCH (07:30)
[2021-06-07] MEDS: HEPARIN SODIUM,PORCINE/PF 5,000 UNIT/0.5 ML SYRINGE SQ SCH (07:30)
[2021-06-07] MEDS: FERROUS SULFATE 325 MG TAB PO SCH (07:30)
[2021-06-07] MEDS: CHOLECALCIFEROL 25 MCG (1000 IU) TABLET PO SCH (07:30)
[2021-06-07] MEDS: LOSARTAN 25 MG TAB PO SCH (07:31)
[2021-06-07] MEDS: metroNIDAZOLE-NS PMX 500 MG in SALINE 1 100ML.BAG IVPB SCH (07:31)
[2021-06-07] MEDS: SODIUM CHLORIDE 0.9% 1,000 ML IV SCH (08:35)
[2021-06-07 12:01] VITALS: BP 136/81; PULSE 70; RESP 20; TEMP 98.3
--- NOTE | 2021-06-07 12:54 | P.PN ---
Subjective Progress Note Date: 06/07/21 CHIEF COMPLAINT: Abdominal pain HISTORY OF PRESENT ILLNESS: Patient is status post balloon dilatation of colorectal anastomotic stricture. Patient still complaining of the same mid abdominal pain. Reports no bowel movement. He did have episode of vomiting yesterday. Reports poor appetite. Afebrile. WBC 5.3 hemoglobin 8.1. The sweats from yesterday PHYSICAL EXAM: VITAL SIGNS: Reviewed. GENERAL: Well-developed in no acute distress. HEENT: No sclera icterus. Extraocular movements grossly intact. Moist buccal mucosa. Head is atraumatic, normocephalic. ABDOMEN: Soft. Nondistended. Tenderness to palpation of lower mid abdomen at incision site. Small palpable pea-sized nodule noted on the left of the incision. NEUROLOGIC: Alert and oriented. Cranial nerves II through XII grossly intact. ASSESSMENT: 1. Abdominal pain with evidence of sigmoid anastomotic tight stricture on colonoscopy 2. Diarrhea 3. Possible focal colitis noted on CAT scan 4. Anemia PLAN: -Continue supportive care -Continue regular diet -Encouraged patient ambulates -Antibiotics per medicine service Physician Rack Room Worker note has been reviewed by physician. Signing provider agrees with the documented findings, assessment, and plan of care. Objective - Vital Signs Vital signs: Vital Signs Temp 98.3 F 06/07/21 12:00 Pulse 70 06/07/21 12:00 Resp 20 06/07/21 12:00 BP 136/81 06/07/21 12:00 Pulse Ox 98 06/07/21 12:00 Intake & Output 06/06/21 06/07/21 06/07/21 18:59 06:59 18:59 Intake Total 150 340 Balance 150 340 Weight 84.5 kg 84.7 kg Intake: IV 150 340 Sodium Chloride 0.9% 1, 240 000 ml @ 75 mls/hr IV . [id number] [facility] Rx#:[id number] metroNIDAZOLE-NS PMX 500 100 mg In Saline 1 100ml.bag @ 100 mls/hr IVPB Q8HR [facility] Rx#:[id number] Other: Voiding Method Bedside Commode Bedside Commode Bedside Commode # Voids 3 - Labs CBC & Chem 7: 06/06/21 06:50 06/06/21 06:50
[2021-06-07] MEDS: HYDROcodone/APAP 5-325MG 1 EACH TAB PO PRN (13:05)
--- NOTE | 2021-06-08 09:16 | P.DS ---
Providers Date of admission: 05/24/21 12:42 Expected date of discharge: 06/07/21 Attending physician: Compa Medina Consults: 05/22/21 19:02 Consult Physician Routine Consulting Provider: [facility] Consult Reason/Comments: new left bundle-branch block Do you want consulting provider notified?: Yes 05/22/21 19:15 Consult Physician Routine Consulting Provider: Phil Burt Consult Reason/Comments: post op abdominal pain Do you want consulting provider notified?: Yes Primary care physician: Courtney Cook Hospital Course: Final diagnosis -Sigmoid Colitis with stricture, with Intractable nausea and vomiting and diarrhea. CT showing focal descending colitis. - -sigmoid anastomotic tight stricture at 10 cm from the anal verge and evidence of colitis just proximal to the stricture extending to 20 cm with mucosal erythema friability and superficial ulcerations status post biopsies, scheduled to undergo endoscopic intervention with surgery today -status post sigmoid colonoscopy with balloon dilatation -Anemia of chronic disease, hemoglobin is stable -Abdominal pain- acute on chronic. -Atypical chest pain. Cardiac causes ruled out. Chest pain resolved -Left bundle branch block -Paroxysmal atrial fibrillation on anticoagulation with Eliquis.(Held for anemia) -Nonischemic cardiomyopathy ejection fraction 35 to 40% -History of bowel resection and bariatric surgery -Hypertension -Hyperlipidemia -GI prophylaxis -DVT prophylaxis -Full code Discharge disposition Patient is being discharged in a stable condition with guarded prognosis to home . Patient will follow-up with Dr. Valdez in the outpatient setting upon discharge. Patient is to continue with current medications and patient needs follow-up with cardiology, GI, and general surgery in the outpatient setting. Prescription provided to follow-up with repeat labs in 2-3 days to monitor hemoglobin and electrolytes. Total time taken is greater than 35 minutes. Hospital course This is a 75-year-old female who was recently admitted with intractable nausea and vomiting and abdominal pain and diarrhea with possible gastroenteritis and some evidence of acute urinary tract infection. Patient was closely monitored by multiple medical consultations including cardiology, GI, general surgery. Patient continued to have abdominal pain 10 out of 10 and also continued with multiple episodes of loose stools and was evaluated by GI and underwent sigmoid colonoscopy for a sigmoid an anastomotic stricture and underwent balloon dilatation with Dr. Burt. Patient continued to have loose stools although none reported today and patient reports the abdominal pain is mildly improved of 8/10. Patient is tolerating diet with no nausea or vomiting noted and is requesting to go home. She has been cleared by surgical services recommending outpatient follow-up along with GI follow-up which patient has yet to due to being rehospitalized multiple times. A shunt has also not followed up with primary care provider due to being hospitalized multiple times for this. Currently no reports of chest pain, shortness of breath, or palpitations. Patient is afebrile. No reports of nausea or vomiting and patient is tolerating diet. Patient will be discharged home today. Guarded prognosis. PHYSICAL EXAMINATION: GENERAL: The patient is alert and oriented x3, well developed, well nourished. Obese. Ill-appearing HEENT: Pupils are round and equally reacting to light. EOMI. does have scleral icterus. No conjunctival pallor. Normocephalic, atraumatic. No pharyngeal erythema. No thyromegaly. CARDIOVASCULAR: S1 and S2 PULMONARY: Lung sounds are clear to auscultation ABDOMEN: soft. Tender on palpation. Non-distended, normoactive bowel sounds. No palpable organomegaly. MUSCULOSKELETAL: No joint swelling or deformity. EXTREMITIES: No cyanosis, clubbing, or pedal edema. NEUROLOGICAL: Gross neurological examination did not reveal any focal deficits. diffuse weakness SKIN: No rashes. no lesions, pale Please refer to medication reconciliation sheet for a list of medications. The impression and plan of care has been dictated by Kaelyn Vila, nurse practitioner as directed. MD Soraya I have performed a history and examination and MDM of this patient, discussed the same with the dictator, and agree with the dictator's assessment and plan as written ,documented as a scribe. Based on total visit time, I have performed more than 50% of the visit. Any additional findings or plans will be noted. Patient Condition at Discharge: Stable Plan - Discharge Summary Discharge Rx Participant: No New Discharge Prescriptions: New Dicyclomine [Bentyl] 20 mg PO QID PRN #60 tab PRN Reason: Dyspepsia Loperamide [Imodium] 2 mg PO QID PRN #30 cap PRN Reason: Diarrhea Ferrous Sulfate [Iron (65 MG Elemental)] 325 mg PO BID-W/MEALS 30 Days #60 tab Continue Nitroglycerin Sl Tabs [Nitrostat] 0.4 mg SL Q5M PRN PRN Reason: Chest Pain Metoprolol Tartrate [Lopressor] 100 mg PO Q12H 30 Days #120 tab Pantoprazole [Protonix] 40 mg PO DAILY #30 tab Levothyroxine Sodium [Synthroid] 200 mcg PO DAILY #30 tab Cholecalciferol [Vitamin D3 (25 Mcg = 1000 Iu)] 25 mcg PO DAILY #30 tablet Gabapentin [Neurontin] 300 mg PO TID #90 cap Multivitamins, Thera [Multivitamin (formulary)] 1 tab PO DAILY Losartan [Cozaar] 25 mg PO DAILY No Action HYDROcodone/APAP 5-325MG [[place] 5-325] 1 tab PO Q6HR PRN PRN Reason: Pain Discharge Medication List Cholecalciferol [Vitamin D3 (25 Mcg = 1000 Iu)] 25 mcg PO DAILY #30 tablet 03/21/21 [Rx] Nitroglycerin Sl Tabs [Nitrostat] 0.4 mg SL Q5M PRN 04/15/21 [History] Gabapentin [Neurontin] 300 mg PO TID #90 cap 05/12/21 [Rx] Levothyroxine Sodium [Synthroid] 200 mcg PO DAILY #30 tab 05/12/21 [Rx] Metoprolol Tartrate [Lopressor] 100 mg PO Q12H 30 Days #120 tab 05/12/21 [Rx] Pantoprazole [Protonix] 40 mg PO DAILY #30 tab 05/12/21 [Rx] Losartan [Cozaar] 25 mg PO DAILY 05/22/21 [History] Multivitamins, Thera [Multivitamin (formulary)] 1 tab PO DAILY 05/22/21 [History] Dicyclomine [Bentyl] 20 mg PO QID PRN #60 tab 06/07/21 [Rx] Ferrous Sulfate [Iron (65 MG Elemental)] 325 mg PO BID-W/MEALS 30 Days #60 tab 06/07/21 [Rx] Loperamide [Imodium] 2 mg PO QID PRN #30 cap 06/07/21 [Rx] HYDROcodone/APAP 5-325MG [[place] 5-325] 1 tab PO Q6HR PRN 06/08/21 [History] Follow up Appointment(s)/Referral(s): Joey Valdez MD [Primary Care Provider] - 06/08/21 2:50 pm Hoda Beasley MD [STAFF PHYSICIAN] - 06/27/21 3:00 pm [facility], [NON-STAFF] - Erum Nieto MD [STAFF PHYSICIAN] - 06/15/21 2:15 pm Phil Burt MD [STAFF PHYSICIAN] - 06/22/21 2:30 pm Ambulatory/Diagnostic Orders: Complete Blood Count w/diff [LAB.AMB] Time Frame: 3 Days, Location: None Selected Patient Instructions/Handouts: Supraventricular Tachycardia (DC), Heart Block (DC), Anemia (DC), Colon Stricture (DC) Activity/Diet/Wound Care/Special Instructions: Activity Limited until follow-up Follow-up with primary care provider this week Follow-up with surgery in the outpatient setting Follow-up with GI outpatient Follow-up with cardiology outpatient Recommend continue current medication regimen as prescribed Repeat labs in 2-3 days Continue current diet Discharge Disposition: HOME WITH HOME HEALTH SERVICES
== END 2021-06-07 16:00 | disposition home health service (06) | DRG 389 ==
LOC: EC 09:35 → 1SOBS 20:47 → 6NMEDSUR 05-23 01:21 → 3SCARD 05-23 03:01 → OBSVTOIN 05-24 12:42 → 5NMEDONC 05-25 20:12
PROVIDERS: ADMIT Hospitalist; ATTEND Hospitalist
PROC: 0DBM8ZX Excision of Descending Colon, Via Natural or Artificial Opening Endoscopic, Diagnostic (ICD-10-PCS; principal; 2021-06-02 14:10)
PROC: 0DBA8ZX Excision of Jejunum, Via Natural or Artificial Opening Endoscopic, Diagnostic (ICD-10-PCS; principal; 2021-06-02 14:10)
PROC: 0DB58ZX Excision of Esophagus, Via Natural or Artificial Opening Endoscopic, Diagnostic (ICD-10-PCS; principal; 2021-06-02 14:10)
PROC: 0D7N8ZZ Dilation of Sigmoid Colon, Via Natural or Artificial Opening Endoscopic (ICD-10-PCS; 2021-06-06 16:25)
DX: K91.30 Postprocedural intestinal obstruction, unspecified as to partial versus complete (principal); I42.8 Other cardiomyopathies; I47.2 Ventricular tachycardia; K63.3 Ulcer of intestine; N39.0 Urinary tract infection, site not specified; K52.89 Other specified noninfective gastroenteritis and colitis; D50.9 Iron deficiency anemia, unspecified; D63.8 Anemia in other chronic diseases classified elsewhere; E03.9 Hypothyroidism, unspecified; E78.5 Hyperlipidemia, unspecified; F32.A Depression, unspecified; F41.0 Panic disorder [episodic paroxysmal anxiety]; G89.29 Other chronic pain; H91.90 Unspecified hearing loss, unspecified ear; I08.1 Rheumatic disorders of both mitral and tricuspid valves; I10 Essential (primary) hypertension; I25.10 Atherosclerotic heart disease of native coronary artery without angina pectoris; I44.0 Atrioventricular block, first degree; I44.7 Left bundle-branch block, unspecified; I48.0 Paroxysmal atrial fibrillation; Z20.822 Contact with and (suspected) exposure to COVID-19; K21.00 Gastro-esophageal reflux disease with esophagitis, without bleeding; K57.30 Diverticulosis of large intestine without perforation or abscess without bleeding; M47.816 Spondylosis without myelopathy or radiculopathy, lumbar region; K63.5 Polyp of colon; M48.061 Spinal stenosis, lumbar region without neurogenic claudication; M54.9 Dorsalgia, unspecified; Z79.01 Long term (current) use of anticoagulants; Z79.890 Hormone replacement therapy; Z79.899 Other long term (current) drug therapy; Z82.49 Family history of ischemic heart disease and other diseases of the circulatory system; Z83.3 Family history of diabetes mellitus; Z85.21 Personal history of malignant neoplasm of larynx; Z86.14 Personal history of Methicillin resistant Staphylococcus aureus infection; Z87.11 Personal history of peptic ulcer disease; Z87.828 Personal history of other (healed) physical injury and trauma; Z87.891 Personal history of nicotine dependence; Z90.710 Acquired absence of both cervix and uterus; Z95.5 Presence of coronary angioplasty implant and graft; Z96.653 Presence of artificial knee joint, bilateral; Z98.84 Bariatric surgery status; Z98.42 Cataract extraction status, left eye; Z60.2 Problems related to living alone; Z98.890 Other specified postprocedural states; Z90.49 Acquired absence of other specified parts of digestive tract; Z92.3 Personal history of irradiation
CPT/HCPCS: 36410; 36415; 43239; 45380; 45386; 71045; 74176; 74177; 76937; 80048; 80053; 81001; 82272; 82607; 82728; 82746; 83540; 83550; 83605; 83630; 83690; 83735; 83880; 83993; 84145; 84484; 85025; 85027; 85610; 85730; 87045; 87046; 87086; 87324; 87328; 87329; 87635; 88305; 93005; 93306; 96361; 96365; 96366; 96375; 96376; 99285

== ENCOUNTER 2021-06-08 03:14 | Observation (INO) | payer MEDICARE ==
[2021-06-08 04:37] LABS: Anisocytosis Moderate; HCT 28.1 % (34.0-46.0); HGB 8.8 gm/dL (11.4-16.0); Hypochromasia Marked; MCH 28.7 pg (25.0-35.0); MCHC 31.4 g/dL (31.0-37.0); MCV 91.5 fL (80.0-100.0); Macrocytosis Slight; Mean Platelet Volume 7.4; Platelet Count 446 k/uL (150-450); Poikilocytosis Slight; RBC 3.07 m/uL (3.80-5.40); RDW 20.1 % (11.5-15.5); WBC 6.3 k/uL (3.8-10.6)
[2021-06-08 04:48] LABS: INR 1.4 (<1.2); Partial Thromboplastin Time 25.8 sec (22.0-30.0); Prothrombin Time 14.6 sec (9.0-12.0)
[2021-06-08 04:50] LABS: ALT 10 U/L (4-34); AST 31 U/L (14-36); African American GFR (CKD) >90 (>60 ml/min/1.73 sqM); Albumin 1.9 g/dL (3.5-5.0); Alkaline Phosphatase 103 U/L (38-126); Anion Gap 3 mmol/L; Blood Urea Nitrogen 4 mg/dL (7-17); Calcium 7.3 mg/dL (8.4-10.2); Carbon Dioxide 21 mmol/L (22-30); Chloride 108 mmol/L (98-107); Glucose 98 mg/dL (74-99); Magnesium 1.4 mg/dL (1.6-2.3); Non-African American GFR(CKD) >90 (>60 ml/min/1.73 sqM); Potassium 3.8 mmol/L (3.5-5.1); Sodium 132 mmol/L (137-145); Total Bilirubin 0.4 mg/dL (0.2-1.3)
[2021-06-08 05:04] LABS: Band Neutrophils % 2 %; Eosinophils # (M) 0.06 k/uL (0-0.7); Lymphocytes # (M) 3.09 k/uL (1.0-4.8); Monocytes # (M) 0.44 k/uL (0-1.0); Neutrophils % (M) 41 %; Nucleated Red Blood Cells 0 /100 WBC (0-0); Total Cells Counted 100
[2021-06-08 05:05] LABS: Anisocytosis (M) Present; Ovalocytes Present; Poikilocytosis (M) Present
[2021-06-08] MEDS ORDERED: NALOXONE 0.4 MG/ML 1 ML VIAL IV PRN (05:34)
[2021-06-08] MEDS ORDERED: FUROSEMIDE 10 MG/ML 2 ML VIAL IV STA (05:38)
--- NOTE | 2021-06-08 05:41 | ED ---
Weakness HPI - General Chief complaint: Weakness Stated complaint: Weakness Time Seen by Provider: 06/08/21 03:21 Source: patient, family Mode of arrival: wheelchair Limitations: no limitations - History of Present Illness Initial comments: This patient is a 75-year-old woman who presents with complaint that she is feeling too weak to walk. The patient had been admitted in the hospital for approximately a week to be evaluated for abdominal pain. She states that she went home yesterday. She was seated in a chair at her home but then was not able to get up and walk to the bathroom. She states that she sat for many hours and then finally when she is not able to get up she called family and they decided to call EMS. She did not have any focal weakness or strokelike symptoms. She states it is definitely both legs. She states that she also has bilateral leg edema since being admitted in the hospital. Patient has not noted fever or chills, chest pain dyspnea. MD Complaint: generalized weakness -: days(s) Location: generalized Consistency: constant Improves with: none Worsens with: none Context: recent illness Associated Symptoms: denies other symptoms - Related Data Home Medications Medication Instructions Recorded Confirmed Nitroglycerin Sl Tabs [Nitrostat] 0.4 mg SL Q5M PRN 04/15/21 05/22/21 Losartan [Cozaar] 25 mg PO DAILY 05/22/21 05/22/21 Multivitamins, Thera [Multivitamin 1 tab PO DAILY 05/22/21 05/22/21 (formulary)] Previous Rx's Medication Instructions Recorded Cholecalciferol [Vitamin D3 (25 25 mcg PO DAILY #30 tablet 03/21/21 Mcg = 1000 Iu)] Gabapentin [Neurontin] 300 mg PO TID #90 cap 05/12/21 Levothyroxine Sodium [Synthroid] 200 mcg PO DAILY #30 tab 05/12/21 Metoprolol Tartrate [Lopressor] 100 mg PO Q12H 30 Days #120 tab 05/12/21 Pantoprazole [Protonix] 40 mg PO DAILY #30 tab 05/12/21 Dicyclomine [Bentyl] 20 mg PO QID PRN #60 tab 06/07/21 Ferrous Sulfate [Iron (65 MG 325 mg PO BID-W/MEALS 30 Days #60 06/07/21 Elemental)] tab HYDROcodone/APAP 5-325MG [[place] 1 each PO Q6HR PRN #12 tab 06/07/21 5-325] Loperamide [Imodium] 2 mg PO QID PRN #30 cap 06/07/21 Allergies Allergy/AdvReac Type Severity Reaction Status Date / Time latex Allergy Unknown Verified 06/08/21 03:19 vancomycin Allergy Rash/Hives Verified 06/08/21 03:19 Review of Systems ROS Statement: Those systems with pertinent positive or pertinent negative responses have been documented in the HPI. ROS Other: All systems not noted in ROS Statement are negative. Constitutional: Reports: weakness. Denies: fever, chills Respiratory: Denies: cough, dyspnea Cardiovascular: Reports: edema. Denies: chest pain, palpitations, orthopnea, syncope Gastrointestinal: Reports: as per HPI, abdominal pain. Denies: vomiting, diarrhea Genitourinary: Denies: dysuria, hematuria Musculoskeletal: Denies: back pain Skin: Denies: rash Neurological: Denies: headache, weakness, numbness, confusion Past Medical History Past Medical History: Atrial Fibrillation, Coronary Artery Disease (CAD), Cancer, Eye Disorder, GERD/Reflux, GI Bleed, Hearing Disorder / Deafness, Hypertension, Osteoarthritis (OA), Thyroid Disorder Additional Past Medical History / Comment(s): Peptic ulcer, chronic back pain, laryngeal cancer/tx-approx 20 yrs ago, head injury in 2012, cataract removal left eye. Pt states she has a hole in her left eardrum. 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 SHOULDER Past Surgical History: Bariatric Surgery, Bowel Resection, Cholecystectomy, Heart Catheterization, Heart Catheterization With Stent, Hysterectomy, Joint Replacement, Orthopedic Surgery Additional Past Surgical History / Comment(s): 1 stent, Bilateral knee replacement, left shoulder rotator cuff surgery, gastric bypass, D&C w/ corrective surgery, EGD/colonoscopy, laryngeal tumor removed 30 radiation treatments about 20 years ago, Ganglion Cysts both wrists.PAIN CLINIC INJECTIONS, colostomy 06/2020 w/ reversal in August Past Anesthesia/Blood Transfusion Reactions: No Reported Reaction Date of Last Stent Placement:: 2003 Past Psychological History: Anxiety, Depression, Panic Disorder Smoking Status: Former smoker Past Alcohol Use History: None Reported Past Drug Use History: None Reported - Past Family History Mother Family Medical History: Cancer, Congestive Heart Failure (CHF), Diabetes Mellitus, Hypertension Additional Family Medical History / Comment(s): Mother passed at 93. Father Family Medical History: Myocardial Infarction (AR) Additional Family Medical History / Comment(s): Father of a AR at the age of 39 yrs. Sister(s) Family Medical History: Cancer Brother(s) Family Medical History: Cancer, Myocardial Infarction (AR) General Exam Limitations: no limitations General appearance: alert, in no apparent distress Head exam: Present: atraumatic, normocephalic Eye exam: Present: normal appearance. Absent: scleral icterus, conjunctival injection ENT exam: Present: normal oropharynx Neck exam: Present: normal inspection Respiratory exam: Present: normal lung sounds bilaterally. Absent: respiratory distress, wheezes, rales, rhonchi, stridor Cardiovascular Exam: Present: irregular rhythm, normal heart sounds. Absent: systolic murmur, diastolic murmur, rubs, gallop GI/Abdominal exam: Present: soft. Absent: distended, tenderness, guarding, rebound, rigid, mass Extremities exam: Present: normal inspection, normal capillary refill, pedal edema. Absent: calf tenderness Neurological exam: Present: alert Skin exam: Present: warm, dry, intact, normal color. Absent: rash Course Vital Signs 06/08/21 06/08/21 03:16 05:16 Temperature 98.9 F Pulse Rate 129 H 89 Respiratory 20 19 Rate Blood Pressure 122/55 111/75 O2 Sat by Pulse 98 98 Oximetry EKG Findings - EKG Results: EKG: interpreted by ERMD EKG shows: atrial fibrillation (Rate 89 bpm) - Blocks, [place], Hypertrophy, ST Abn: AV and intraventricular conduction: left bundle branch block (fixed/intermittent, complete/incomplete) Medical Decision Making - Medical Decision Making Patient is 75-year-old woman here because she was not able to ambulate at home after discharge. Patient's does have significant bilateral lower extremity weakness. No evidence of focal weakness or stroke. The patient found to have moderate hypomagnesemia and this will be supplemented, and patient admitted for rehabilitation placement. - Lab Data Result diagrams: 06/08/21 04:32 06/08/21 04:32 Lab Results 03/03/22 03/03/22 03/03/22 Range/Units 04:32 04:32 04:32 WBC 6.3 (3.8-10.6) k/uL RBC 3.07 L (3.80-5.40) m/uL Hgb 8.8 L (11.4-16.0) gm/dL Hct 28.1 L (34.0-46.0) % MCV 91.5 (80.0-100.0) fL MCH 28.7 (25.0-35.0) pg MCHC 31.4 (31.0-37.0) g/dL RDW 20.1 H (11.5-15.5) % Plt Count 446 (150-450) k/uL MPV 7.4 Neutrophils % (Manual) 41 % Band Neuts % (Manual) 2 % Lymphocytes % (Manual) 49 % Monocytes % (Manual) 7 % Eosinophils % (Manual) 1 % Neutrophils # (Manual) 2.70 (1.3-7.7) k/uL Lymphocytes # (Manual) 3.09 (1.0-4.8) k/uL Monocytes # (Manual) 0.44 (0-1.0) k/uL Eosinophils # (Manual) 0.06 (0-0.7) k/uL Nucleated RBCs 0 (0-0) /100 WBC Manual Slide Review Performed Hypochromasia Marked Poikilocytosis Slight Poikilocytosis (manual Present Anisocytosis Moderate Anisocytosis (manual) Present Macrocytosis Slight Ovalocytes Present PT 14.6 H (9.0-12.0) sec INR 1.4 H (<1.2) APTT 25.8 (22.0-30.0) sec Sodium 132 L (137-145) mmol/L Potassium 3.8 (3.5-5.1) mmol/L Chloride 108 H (98-107) mmol/L Carbon Dioxide 21 L (22-30) mmol/L Anion Gap 3 mmol/L BUN 4 L (7-17) mg/dL Creatinine 0.48 L (0.52-1.04) mg/dL Est GFR (CKD-EPI)AfAm >90 (>60 ml/min/1.73 sqM) Est GFR (CKD-EPI)NonAf >90 (>60 ml/min/1.73 sqM) Glucose 98 (74-99) mg/dL Plasma Lactic Acid Anthony (0.7-2.0) mmol/L Calcium 7.3 L (8.4-10.2) mg/dL Magnesium 1.4 L (1.6-2.3) mg/dL Total Bilirubin 0.4 (0.2-1.3) mg/dL AST 31 (14-36) U/L ALT 10 (4-34) U/L Alkaline Phosphatase 103 (38-126) U/L Troponin I (0.000-0.034) ng/mL Total Protein 5.0 L (6.3-8.2) g/dL Albumin 1.9 L (3.5-5.0) g/dL 06/08/21 06/08/21 Range/Units 04:32 04:32 WBC (3.8-10.6) k/uL RBC (3.80-5.40) m/uL Hgb (11.4-16.0) gm/dL Hct (34.0-46.0) % MCV (80.0-100.0) fL MCH (25.0-35.0) pg MCHC (31.0-37.0) g/dL RDW (11.5-15.5) % Plt Count (150-450) k/uL MPV Neutrophils % (Manual) % Band Neuts % (Manual) % Lymphocytes % (Manual) % Monocytes % (Manual) % Eosinophils % (Manual) % Neutrophils # (Manual) (1.3-7.7) k/uL Lymphocytes # (Manual) (1.0-4.8) k/uL Monocytes # (Manual) (0-1.0) k/uL Eosinophils # (Manual) (0-0.7) k/uL Nucleated RBCs (0-0) /100 WBC Manual Slide Review Hypochromasia Poikilocytosis Poikilocytosis (manual Anisocytosis Anisocytosis (manual) Macrocytosis Ovalocytes PT (9.0-12.0) sec INR (<1.2) APTT (22.0-30.0) sec Sodium (137-145) mmol/L Potassium (3.5-5.1) mmol/L Chloride (98-107) mmol/L Carbon Dioxide (22-30) mmol/L Anion Gap mmol/L BUN (7-17) mg/dL Creatinine (0.52-1.04) mg/dL Est GFR (CKD-EPI)AfAm (>60 ml/min/1.73 sqM) Est GFR (CKD-EPI)NonAf (>60 ml/min/1.73 sqM) Glucose (74-99) mg/dL Plasma Lactic Acid Anthony 1.4 (0.7-2.0) mmol/L Calcium (8.4-10.2) mg/dL Magnesium (1.6-2.3) mg/dL Total Bilirubin (0.2-1.3) mg/dL AST (14-36) U/L ALT (4-34) U/L Alkaline Phosphatase (38-126) U/L Troponin I <0.012 (0.000-0.034) ng/mL Total Protein (6.3-8.2) g/dL Albumin (3.5-5.0) g/dL Disposition Clinical Impression: Weakness, Chronic abdominal pain, Gait abnormality, Hypomagnesemia Disposition: ADMITTED IP TO THIS [facility] Condition: Poor Is patient prescribed a controlled substance at d/c from ED?: No Referrals: Joey Valdez MD [Primary Care Provider] - 1-2 days
[2021-06-08] MEDS: MAGNESIUM SULFATE-D5W PMX 1 GM in DEXTROSE/WATER 1 100ML.BAG IVPB SCH ×2 (05:51→08:00)
--- NOTE | 2021-06-08 05:51 | XR ---
EXAMINATION TYPE: XR chest 2V DATE OF EXAM: 06/08/2021 COMPARISON: 05/28/2021 HISTORY: Short of breath. Weakness TECHNIQUE: FINDINGS: There is some mild infiltrate and atelectasis in the left lower lobe. There is no heart allison lure. There is left shoulder prosthesis. There are chest leads. There is no pleural effusion. IMPRESSION: There is some new mild infiltrate and atelectasis left lung base compared to recent exam.
[2021-06-08] MEDS: ACETAMINOPHEN TAB 325 MG TAB PO PRN ×2 (08:01→18:13)
[2021-06-08 08:37] LABS: Appearance,Urine Clear (Clear); Bilirubin,Urine Negative (Negative); Blood,Urine Negative (Negative); Color,Urine Light Yellow; Glucose,Urine (UA) Negative (Negative); Ketones,Urine Negative (Negative); Leukocyte Esterase,Urine Negative (Negative); Nitrite,Urine Negative (Negative); Protein,Urine Negative (Negative); Specific Gravity,Urine 1.005 (1.001-1.035); Urobilinogen,Urine <2.0 mg/dL (<2.0)
[2021-06-08] MEDS: FAMOTIDINE 20 MG TAB PO SCH ×2 (08:56→21:44)
[2021-06-08] MEDS: HEPARIN SODIUM,PORCINE/PF 5,000 UNIT/0.5 ML SYRINGE SQ SCH ×2 (08:56→21:44)
[2021-06-08] MEDS ORDERED: MAGNESIUM OXIDE 400 MG TAB PO STA (11:56)
[2021-06-08] MEDS ORDERED: LOPERAMIDE 2 MG CAP PO PRN (14:08)
[2021-06-08] MEDS ORDERED: NITROGLYCERIN SL TABS 0.4 MG TAB SUBLINGUAL PRN (14:08)
--- NOTE | 2021-06-08 14:15 | P.HPIM ---
History of Present Illness H&P Date: 06/08/21 This is a pleasant 75-year-old female who was just discharged from the hospital after 12 days hospitalization and reported back to the emergency department with generalized weakness and continued abdominal pain and loose stools. Patient recently underwent dilatation of the sigmoid colon as there was a stricture which Gen. surgery and was to follow-up with surgery in the outpatient setting. Of note, patient during previous hospitalization yesterday patient needed encouragement and ambulation although was ambulatory independently with no assistance. Patient presented to the emergency department with reports of feeling too weak to walk. Per ER documentation patient reports to being sat in to a chair at home and not able to get up and walk and family called EMS for transport to the ER. She was found to have moderate hypomagnesemia of 1.4 and was supplemented and will repeat labs. Will also consult physical therapy for possible ECF placement and discussed with case management and social work. Patient has been offered this in the past and has refused but was agreeable to home care and wanting to go home. On admission labs showed a WBC of 6.3, hemoglobin of 8.8, platelets were 446, INR 1.4, sodium 132, potassium 3.8, BUN 4, creatinine 0.48, plasma lactic acid 1.4, magnesium 1.4, calcium 7.3, troponin 0.012 and urinalysis is negative. Chest x-ray shows some mild infiltrate and atelectasis in the left lower lobe with no heart failure and no pleural effusion. Patient was admitted for magnesium supplementation, generalized weakness and possible ECF. PT/OT therapy consulted. Review Of Systems: Constitutional: No fever, no chills, no night sweats. No weight change. Rep orts generalized weakness weakness, fatigue and lethargy. No daytime sleepiness. EENT: No headache. No blurred vision or double vision, no loss of vision. No loss of Hearing, no ringing in the ears, no dizziness. No nasal drainage or congestion. No epistaxis. No sore throat. Lungs: No shortness of breath, cough, no sputum production. No wheezing. Cardiovascular: No chest pain, no lower extremity edema. No palpitations. No paroxysmal nocturnal dyspnea. No orthopnea. No lightheadedness or dizziness. No syncopal episodes. Abdominal: Reports abdominal pain. Reports nausea, no vomiting. Reports diarrhea. No constipation. No bloody or tarry stools.. Reports loss of appetite. Genitourinary: No dysuria, increased frequency, urgency. No urinary retention. Musculoskeletal: No myalgias. Reports muscle weakness, gait dysfunction, no reports of frequent falls. No back pain. No neck pain. Integumentary: No wounds, no lesions. No rash or pruritus. No unusual bruising. No change in hair or nails. Neurologic: No aphasia. No facial droop. No change in mentation. No head injury. No headache. No paralysis. No paresthesia. Psychiatric: Reports depression. No anxiety. No mood swings. Endocrine: No abnormal blood sugars. No weight change. No excessive sweating or thirst. No cold intolerance. Active Medications Acetaminophen (Acetaminophen Tab 325 Mg Tab) 650 mg PO Q6HR PRN PRN Reason: Mild Pain or Fever > 100.5 Last Admin: 06/08/21 08:01 Dose: 650 mg Documented by: Famotidine (Famotidine 20 Mg Tab) 20 mg PO BID ALFREDO Heparin Sodium (Porcine) (Heparin Sodium,Porcine/Pf 5,000 Unit/0.5 Ml Syringe) 5,000 unit SQ Q12HR ALFREDO Naloxone HCl (Naloxone 0.4 Mg/Ml 1 Ml Vial) 0.2 mg IV Q2M PRN PRN Reason: Opioid Reversal PHYSICAL EXAMINATION: GENERAL: The patient is alert and oriented x4, lethargic but arousable, ill- appearing, pale Well developed, well nourished. HEENT: Pupils are round and equally reacting to light. EOMI. does have scleral icterus. No conjunctival pallor. Normocephalic, atraumatic. No pharyngeal erythema. No thyromegaly. CARDIOVASCULAR: S1 and S2 muffled PULMONARY: diminished breath sounds bilaterally with no wheezing or rhonchi noted. ABDOMEN: soft. Tenderness noted on palpation. obese. non-distended, normoactive bowel sounds. No palpable organomegaly. MUSCULOSKELETAL: No joint swelling or deformity. EXTREMITIES: No cyanosis, clubbing, or pedal edema. Right upper extremity generalized edema noted NEUROLOGICAL: Gross neurological examination did not reveal any focal deficits. Diffuse weakness SKIN: No rashes. Assessment: Generalized weakness Gait dysfunction Chronic abdominal pain Hyponatremia Hypomagnesemia History of atrial fibrillation, currently not on anticoagulation for recent hospitalization of possible GI bleed Coronary artery disease history gastroesophageal reflux disease Hypertension Anxiety/depression GI prophylaxis DVT prophylaxis Full code Plan: Recommend to continue with current medications and management. Place magnesium per protocol and repeat magnesium level is 1.8 and will start oral magnesium supplements daily. Encouraged oral intake and awaiting physical therapy evaluation. Case management and social work also consulted for possible ECF at which patient is agreeable to at this time. Will await notes. Appropriate home medications have been resumed. Will continue to monitor closely and repeat a.m. labs. To discuss with case management is an accepting facility is obtained. Due to multiple complex medical issues and high risk for multiple readmissions, prognosis is guarded. The impression and plan of care has been dictated by Kaelyn Vila nurse practitioner as directed. MD Soraya I have performed a history and examination and MDM of this patient, discussed the same with the dictator, and agree with the dictator's assessment and plan as written ,documented as a scribe. Based on total visit time, I have performed more than 50% of the visit. Number of minutes spent on this visit, 30 minutes. Any additional findings or plans will be noted. Past Medical History Past Medical History: Atrial Fibrillation, Coronary Artery Disease (CAD), Cancer, Eye Disorder, GERD/Reflux, GI Bleed, Hearing Disorder / Deafness, Hypertension, Osteoarthritis (OA), Thyroid Disorder Additional Past Medical History / Comment(s): Peptic ulcer, chronic back pain, laryngeal cancer/tx-approx 20 yrs ago, head injury in 2012, cataract removal left eye. Pt states she has a hole in her left eardrum. 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 SHOULDER Past Surgical History: Bariatric Surgery, Bowel Resection, Cholecystectomy, Heart Catheterization, Heart Catheterization With Stent, Hysterectomy, Joint Replacement, Orthopedic Surgery Additional Past Surgical History / Comment(s): 1 stent, Bilateral knee replacement, left shoulder rotator cuff surgery, gastric bypass, D&C w/ corrective surgery, EGD/colonoscopy, laryngeal tumor removed 30 radiation treatments about 20 years ago, Ganglion Cysts both wrists.PAIN CLINIC INJECTIONS, colostomy 06/2020 w/ reversal in August Past Anesthesia/Blood Transfusion Reactions: No Reported Reaction Date of Last Stent Placement:: 2003 Past Psychological History: Anxiety, Depression, Panic Disorder Additional Psychological History / Comment(s): pt lives alone in an apartment. Smoking Status: Former smoker Past Alcohol Use History: None Reported Additional Past Alcohol Use History / Comment(s): Pt started smoking in 1959 and quit in 1982, 1ppd. Past Drug Use History: None Reported - Past Family History Mother Family Medical History: Cancer, Congestive Heart Failure (CHF), Diabetes Mellitus, Hypertension Additional Family Medical History / Comment(s): Mother passed at 93. Father Family Medical History: Myocardial Infarction (MA) Additional Family Medical History / Comment(s): Father of a MA at the age of 39 yrs. Sister(s) Family Medical History: Cancer Brother(s) Family Medical History: Cancer, Myocardial Infarction (MA) Medications and Allergies Home Medications Medication Instructions Recorded Confirmed Type Cholecalciferol [Vitamin D3 (25 25 mcg PO DAILY #30 tablet 03/21/21 06/08/21 Rx Mcg = 1000 Iu)] Nitroglycerin Sl Tabs [Nitrostat] 0.4 mg SL Q5M PRN 04/15/21 06/08/21 History Gabapentin [Neurontin] 300 mg PO TID #90 cap 05/12/21 06/08/21 Rx Levothyroxine Sodium [Synthroid] 200 mcg PO DAILY #30 tab 05/12/21 06/08/21 Rx Metoprolol Tartrate [Lopressor] 100 mg PO Q12H 30 Days #120 tab 05/12/21 06/08/21 Rx Pantoprazole [Protonix] 40 mg PO DAILY #30 tab 05/12/21 06/08/21 Rx Losartan [Cozaar] 25 mg PO DAILY 05/22/21 06/08/21 History Multivitamins, Thera [Multivitamin 1 tab PO DAILY 05/22/21 06/08/21 History (formulary)] Dicyclomine [Bentyl] 20 mg PO QID PRN #60 tab 06/07/21 06/08/21 Rx Ferrous Sulfate [Iron (65 MG 325 mg PO BID-W/MEALS 30 Days #60 06/07/21 06/08/21 Rx Elemental)] tab Loperamide [Imodium] 2 mg PO QID PRN #30 cap 06/07/21 06/08/21 Rx HYDROcodone/APAP 5-325MG [[place] 1 tab PO Q6HR PRN 06/08/21 06/08/21 History 5-325] Allergies Allergy/AdvReac Type Severity Reaction Status Date / Time latex Allergy Unknown Verified 06/08/21 06:10 vancomycin Allergy Rash/Hives Verified 06/08/21 06:10 Physical Exam Vitals: Vital Signs Temp Pulse Resp BP Pulse Ox 06/08/21 05:16 89 19 111/75 98 06/08/21 03:16 98.9 F 129 H 20 122/55 98 Intake and Output 06/07/21 06/08/21 06/08/21 22:59 06:59 14:59 Other: Weight 64.864 kg Results CBC & Chem 7: 06/08/21 04:32 06/08/21 04:32 Labs: Abnormal Lab Results - Last 24 Hours (Table) 06/08/21 06/08/21 06/08/21 Range/Units 04:32 04:32 04:32 RBC 3.07 L (3.80-5.40) m/uL Hgb 8.8 L (11.4-16.0) gm/dL Hct 28.1 L (34.0-46.0) % RDW 20.1 H (11.5-15.5) % PT 14.6 H (9.0-12.0) sec INR 1.4 H (<1.2) Sodium 132 L (137-145) mmol/L Chloride 108 H (98-107) mmol/L Carbon Dioxide 21 L (22-30) mmol/L BUN 4 L (7-17) mg/dL Creatinine 0.48 L (0.52-1.04) mg/dL Calcium 7.3 L (8.4-10.2) mg/dL Magnesium 1.4 L (1.6-2.3) mg/dL Total Protein 5.0 L (6.3-8.2) g/dL Albumin 1.9 L (3.5-5.0) g/dL Thrombosis Risk Factor Assmnt - Choose All That Apply Any of the Below Risk Factors Present?: Yes Each Factor Represents 1 point: Swollen legs (current) Each Risk Factor Represents 3 Points: Age 75 years or older Other congenital or acquired thrombophilia - If yes, enter type in comment: No Thrombosis Risk Factor Assessment Total Risk Factor Score: 4 Thrombosis Risk Factor Assessment Level: Moderate Risk
[2021-06-08] MEDS: GABAPENTIN 300 MG CAP PO SCH ×2 (15:19→21:44)
[2021-06-08] MEDS: HYDROcodone/APAP 5-325MG 1 EACH TAB PO PRN ×2 (15:19→21:48)
[2021-06-08] MEDS: METOPROLOL TARTRATE 50 MG TAB PO SCH ×2 (15:20→21:44)
[2021-06-08] MEDS: FERROUS SULFATE 325 MG TAB PO SCH (18:10)
[2021-06-08] MEDS: MAGNESIUM OXIDE 400 MG TAB PO SCH (21:44)
[2021-06-08] MEDS: DICYCLOMINE 20 MG TAB PO PRN (23:21)
[2021-06-09] MEDS ORDERED: LEVOTHYROXINE 100 MCG TAB PO SCH (06:30)
[2021-06-09] MEDS ORDERED: PANTOPRAZOLE 40 MG TABLET PO SCH (07:30)
[2021-06-09] MEDS: FERROUS SULFATE 325 MG TAB PO SCH (07:57)
[2021-06-09] MEDS: FAMOTIDINE 20 MG TAB PO SCH (07:57)
[2021-06-09] MEDS: METOPROLOL TARTRATE 50 MG TAB PO SCH (07:57)
[2021-06-09] MEDS: DICYCLOMINE 20 MG TAB PO PRN (07:57)
[2021-06-09] MEDS: HEPARIN SODIUM,PORCINE/PF 5,000 UNIT/0.5 ML SYRINGE SQ SCH (07:57)
[2021-06-09] MEDS: GABAPENTIN 300 MG CAP PO SCH (07:57)
[2021-06-09] MEDS: MAGNESIUM OXIDE 400 MG TAB PO SCH (07:57)
[2021-06-09] MEDS ORDERED: LOSARTAN 25 MG TAB PO SCH (09:00)
[2021-06-09] MEDS ORDERED: CHOLECALCIFEROL 25 MCG (1000 IU) TABLET PO SCH (09:00)
[2021-06-09] MEDS ORDERED: MULTIVITAMINS, THERA 1 EACH TAB PO SCH (09:00)
--- NOTE | 2021-06-09 13:33 | P.DS ---
Providers Date of admission: 06/08/21 05:34 Expected date of discharge: 06/09/21 Attending physician: Compa Medina Primary care physician: Courtney Romero [facility] Course: 75-year-old female who was just discharged from the hospital after 12 days hospitalization and reported back to the emergency department with generalized weakness and continued abdominal pain and loose stools. Patient recently underwent dilatation of the sigmoid colon as there was a stricture which Gen. surgery and was to follow-up with surgery in the outpatient setting. Of note, patient during previous hospitalization yesterday patient needed encouragement and ambulation although was ambulatory independently with no assistance. Patient presented to the emergency department with reports of feeling too weak to walk. Per ER documentation patient reports to being sat into a chair at home and not able to get up and walk and family called EMS for transport to the ER. She was found to have moderate hypomagnesemia of 1.4 and was supplemented and will repeat labs. Will also consult physical therapy for possible ECF placement and discussed with case management and social work. Patient has been offered this in the past and has refused but was agreeable to home care and wanting to go home. On admission labs showed a WBC of 6.3, hemoglobin of 8.8, platelets were 446, INR 1.4, sodium 132, potassium 3.8, BUN 4, creatinine 0.48, plasma lactic acid 1.4, magnesium 1.4, calcium 7.3, troponin 0.012 and urinalysis is negative. Chest x-ray shows some mild infiltrate and atelectasis in the left lower lobe with no heart failure and no pleural effusion. Patient was admitted for magnesium supplementation, generalized weakness and possible ECF. PT/OT therapy consulted. patient is recommended skilled rehab; case management was consulted and authorization was obtained; patient stable for discharge Patient Condition at Discharge: Poor Plan - Discharge Summary Discharge Rx Participant: Yes New Discharge Prescriptions: No Action Nitroglycerin Sl Tabs [Nitrostat] 0.4 mg SL Q5M PRN PRN Reason: Chest Pain Metoprolol Tartrate [Lopressor] 100 mg PO Q12H 30 Days #120 tab Pantoprazole [Protonix] 40 mg PO DAILY #30 tab Levothyroxine Sodium [Synthroid] 200 mcg PO DAILY #30 tab HYDROcodone/APAP 5-325MG [[place] 5-325] 1 tab PO Q6HR PRN PRN Reason: Pain Cholecalciferol [Vitamin D3 (25 Mcg = 1000 Iu)] 25 mcg PO DAILY #30 tablet Gabapentin [Neurontin] 300 mg PO TID #90 cap Multivitamins, Thera [Multivitamin (formulary)] 1 tab PO DAILY Losartan [Cozaar] 25 mg PO DAILY Dicyclomine [Bentyl] 20 mg PO QID PRN #60 tab PRN Reason: Dyspepsia Loperamide [Imodium] 2 mg PO QID PRN #30 cap PRN Reason: Diarrhea Ferrous Sulfate [Iron (65 MG Elemental)] 325 mg PO BID-W/MEALS 30 Days #60 tab Discharge Medication List Cholecalciferol [Vitamin D3 (25 Mcg = 1000 Iu)] 25 mcg PO DAILY #30 tablet 03/21 [Rx] Nitroglycerin Sl Tabs [Nitrostat] 0.4 mg SL Q5M PRN 04/15/21 [History] Gabapentin [Neurontin] 300 mg PO TID #90 cap 05/12/21 [Rx] Levothyroxine Sodium [Synthroid] 200 mcg PO DAILY #30 tab 05/12/21 [Rx] Metoprolol Tartrate [Lopressor] 100 mg PO Q12H 30 Days #120 tab 05/12/21 [Rx] Pantoprazole [Protonix] 40 mg PO DAILY #30 tab 05/12/21 [Rx] Losartan [Cozaar] 25 mg PO DAILY 05/22/21 [History] Multivitamins, Thera [Multivitamin (formulary)] 1 tab PO DAILY 05/22/21 [History] Dicyclomine [Bentyl] 20 mg PO QID PRN #60 tab 06/07/21 [Rx] Ferrous Sulfate [Iron (65 MG Elemental)] 325 mg PO BID-W/MEALS 30 Days #60 tab 06/07/21 [Rx] Loperamide [Imodium] 2 mg PO QID PRN #30 cap 06/07/21 [Rx] HYDROcodone/APAP 5-325MG [[place] 5-325] 1 tab PO Q6HR PRN 06/08/21 [History] Follow up Appointment(s)/Referral(s): Joey Valdez MD [Primary Care Provider] - 1-2 days
[2021-06-09] MEDS: HYDROcodone/APAP 5-325MG 1 EACH TAB PO PRN (13:53)
[2021-06-09 14:16] VITALS: BP 139/79; PULSE 69; RESP 17; TEMP 97.7
== END 2021-06-09 15:16 ==
LOC: EC 03:14 → 4SSUR 05:34 → INTOOBSV 05:34 → UNDODISIN 06-09 15:16
PROVIDERS: ADMIT Hospitalist; ATTEND Hospitalist
DX: R53.1 Weakness (principal); R10.9 Unspecified abdominal pain; M79.89 Other specified soft tissue disorders; R60.0 Localized edema; E83.42 Hypomagnesemia; R26.9 Unspecified abnormalities of gait and mobility; I48.91 Unspecified atrial fibrillation; G89.29 Other chronic pain; M54.9 Dorsalgia, unspecified; I25.10 Atherosclerotic heart disease of native coronary artery without angina pectoris; K21.9 Gastro-esophageal reflux disease without esophagitis; I10 Essential (primary) hypertension; F41.9 Anxiety disorder, unspecified; F32.A Depression, unspecified; E87.1 Hypo-osmolality and hyponatremia; M19.90 Unspecified osteoarthritis, unspecified site; H91.90 Unspecified hearing loss, unspecified ear; F41.0 Panic disorder [episodic paroxysmal anxiety]; E07.9 Disorder of thyroid, unspecified; I44.7 Left bundle-branch block, unspecified; J98.11 Atelectasis; E66.9 Obesity, unspecified; Z68.24 Body mass index [BMI] 24.0-24.9, adult; Z90.49 Acquired absence of other specified parts of digestive tract; Z95.5 Presence of coronary angioplasty implant and graft; Z90.710 Acquired absence of both cervix and uterus; Z86.14 Personal history of Methicillin resistant Staphylococcus aureus infection; Z96.653 Presence of artificial knee joint, bilateral; Z79.890 Hormone replacement therapy; Z79.899 Other long term (current) drug therapy; Z88.1 Allergy status to other antibiotic agents; Z91.040 Latex allergy status; Z16.24 Resistance to multiple antibiotics; Z98.84 Bariatric surgery status; Z71.9 Counseling, unspecified; Z87.11 Personal history of peptic ulcer disease; Z87.891 Personal history of nicotine dependence; Z87.19 Personal history of other diseases of the digestive system; Z85.21 Personal history of malignant neoplasm of larynx; Z87.828 Personal history of other (healed) physical injury and trauma; Z92.3 Personal history of irradiation; Z82.49 Family history of ischemic heart disease and other diseases of the circulatory system; Z83.3 Family history of diabetes mellitus; Z80.9 Family history of malignant neoplasm, unspecified
CPT/HCPCS: 96366; 96372 ×2; 96365; 96375; 99285; 36415; 94760; 93005; 97116; 97162; 97535; 97166; 80053; 83605; 83735; 84484; 85025; 85610; 85730; 81003; 71046; G0378 ×2; J1940; J3475; J1644 ×2; 96374

== ENCOUNTER 2021-06-21 15:27 | Emergency (ER) | payer MEDICARE ==
[2021-06-21 15:41] VITALS: RESP 20
[2021-06-21] MEDS ORDERED: ONDANSETRON 4 MG/2 ML VIAL IVP STA (16:45)
[2021-06-21] MEDS ORDERED: MORPHINE SULFATE 2 MG/ML SYRINGE IVP STA ×2 (16:45→18:43)
[2021-06-21 17:09] LABS: Anisocytosis Moderate; HCT 33.1 % (34.0-46.0); HGB 10.2 gm/dL (11.4-16.0); Hypochromasia Moderate; MCHC 30.9 g/dL (31.0-37.0); MCV 93.8 fL (80.0-100.0); Macrocytosis Slight; Platelet Count 341 k/uL (150-450); RBC 3.53 m/uL (3.80-5.40); RDW 20.6 % (11.5-15.5); WBC 7.2 k/uL (3.8-10.6)
[2021-06-21 17:32] LABS: ALT 11 U/L (4-34); AST 46 U/L (14-36); African American GFR (CKD) >90 (>60 ml/min/1.73 sqM); Albumin 2.4 g/dL (3.5-5.0); Alkaline Phosphatase 128 U/L (38-126); Anion Gap 4 mmol/L; Blood Urea Nitrogen 10 mg/dL (7-17); Calcium 7.5 mg/dL (8.4-10.2); Carbon Dioxide 26 mmol/L (22-30); Chloride 102 mmol/L (98-107); Glucose 88 mg/dL (74-99); Lipase 31 U/L (23-300); Non-African American GFR(CKD) >90 (>60 ml/min/1.73 sqM); Potassium 4.7 mmol/L (3.5-5.1); Sodium 132 mmol/L (137-145); Total Bilirubin 0.7 mg/dL (0.2-1.3); Total Protein 6.4 g/dL (6.3-8.2)
[2021-06-21 17:33] LABS: Eosinophils # (M) 0.07 k/uL (0-0.7); Lymphocytes # (M) 3.89 k/uL (1.0-4.8); Monocytes # (M) 1.22 k/uL (0-1.0); Neutrophils # (M) 2.02 k/uL (1.3-7.7); Neutrophils % (M) 28 %; Nucleated Red Blood Cells 0 /100 WBC (0-0); Total Cells Counted 100
[2021-06-21 17:45] LABS: Appearance,Urine Clear (Clear); Bilirubin,Urine Negative (Negative); Blood,Urine Negative (Negative); Color,Urine Yellow; Glucose,Urine (UA) Negative (Negative); Ketones,Urine Negative (Negative); Leukocyte Esterase,Urine Negative (Negative); Nitrite,Urine Negative (Negative); PH, Urine 7.5 (5.0-8.0); Protein,Urine Negative (Negative); Specific Gravity,Urine 1.011 (1.001-1.035); Urobilinogen,Urine <2.0 mg/dL (<2.0)
--- NOTE | 2021-06-21 19:38 | ED ---
General Adult HPI - General Chief complaint: Abdominal Pain Stated complaint: abd pain Time Seen by Provider: 06/21/21 15:57 Source: patient, EMS Mode of arrival: EMS Limitations: no limitations - History of Present Illness Initial comments: This 75-year-old female with a past medical history of CAD, A. fib, hypertension, bowel resection presents emergency Department after being sent here by [facility] for abnormal ultrasound of the abdomen. Patient states she has been having on and off abdominal pain and issues for the last year. Patient states she was discharged from the hospital just a couple weeks ago and over the last few days she has had increased pain in her lower abdomen. Patient denies her pain being any different today than it was 1-2 weeks ago when she was discharged. Patient states yesterday she had an ultrasound of her lower abdomen and did any informed her that she needed to be sent here for workup along with a CT scan. Patient states her pain is 7/10 and is localized just below the umbilicus. She denies any radiation of the pain. Patient denies any chest pain, shortness of breath, palpitations, nausea, vomiting, change in bowel or bladder, lightheadedness, dizziness, weakness, headache, change in vision. I did speak with since nurse from [facility] who stated ultrasound yesterday evening of lower abdomen could not exclude adhesions, incarceration or strangulation of bowel, stated that he sent patient here for further workup and evaluation/treatment - Related Data Home Medications Medication Instructions Recorded Confirmed Nitroglycerin Sl Tabs [Nitrostat] 0.4 mg SL Q5M PRN 04/15/21 06/21/21 Losartan [Cozaar] 25 mg PO DAILY 05/22/21 06/21/21 Multivitamins, Thera [Multivitamin 1 tab PO DAILY 05/22/21 06/21/21 (formulary)] HYDROcodone/APAP 5-325MG [[place] 1 tab PO Q4H PRN 06/08/21 06/21/21 5-325] Dicyclomine [Bentyl] 20 mg PO Q6H PRN 06/21/21 06/21/21 Ferrous Sulfate [Iron (65 MG 325 mg PO BID 06/21/21 06/21/21 Elemental)] Furosemide [Lasix] 20 mg PO DAILY 06/21/21 06/21/21 Gabapentin 300 mg PO TID@0500,1300,2100 06/21/21 06/21/21 LORazepam [Ativan] 0.5 mg PO TID@0800,1200,1800 06/21/21 06/21/21 Levothyroxine Sodium [Synthroid] 200 mcg PO HS 06/21/21 06/21/21 Loperamide [Imodium] 2 mg PO Q6H PRN 06/21/21 06/21/21 Metoprolol Tartrate [Lopressor] 100 mg PO BID@0800,2000 06/21/21 06/21/21 Omeprazole 20 mg PO DAILY 06/21/21 06/21/21 Ondansetron [Zofran] 4 mg PO Q8H PRN 06/21/21 06/21/21 Previous Rx's Medication Instructions Recorded Cholecalciferol [Vitamin D3 (25 25 mcg PO DAILY #30 tablet 03/21/21 Mcg = 1000 Iu)] Magnesium Oxide [Mag-Ox] 400 mg PO BID 30 Days #60 tab 06/09/21 Allergies Allergy/AdvReac Type Severity Reaction Status Date / Time latex Allergy Unknown Verified 06/21/21 16:55 vancomycin Allergy Rash/Hives Verified 06/21/21 16:55 Review of Systems ROS Statement: Those systems with pertinent positive or pertinent negative responses have been documented in the HPI. ROS Other: All systems not noted in ROS Statement are negative. Past Medical History Past Medical History: Atrial Fibrillation, Coronary Artery Disease (CAD), Cancer, Eye Disorder, GERD/Reflux, GI Bleed, Hearing Disorder / Deafness, Hypertension, Osteoarthritis (OA), Thyroid Disorder Additional Past Medical History / Comment(s): Peptic ulcer, chronic back pain, laryngeal cancer/tx-approx 20 yrs ago, head injury in 2012, cataract removal left eye. Pt states she has a hole in her left eardrum. 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 SHOULDER Past Surgical History: Bariatric Surgery, Bowel Resection, Cholecystectomy, Heart Catheterization, Heart Catheterization With Stent, Hysterectomy, Joint Replacement, Orthopedic Surgery Additional Past Surgical History / Comment(s): 1 stent, Bilateral knee replacement, left shoulder rotator cuff surgery, gastric bypass, D&C w/ corrective surgery, EGD/colonoscopy, laryngeal tumor removed 30 radiation treatments about 20 years ago, Ganglion Cysts both wrists.PAIN CLINIC INJECTIONS, colostomy 06/2020 w/ reversal in August Past Anesthesia/Blood Transfusion Reactions: No Reported Reaction Date of Last Stent Placement:: 2003 Past Psychological History: Anxiety, Depression, Panic Disorder Smoking Status: Former smoker Past Alcohol Use History: None Reported Past Drug Use History: None Reported - Past Family History Mother Family Medical History: Cancer, Congestive Heart Failure (CHF), Diabetes Mellitus, Hypertension Additional Family Medical History / Comment(s): Mother passed at 93. Father Family Medical History: Myocardial Infarction (IN) Additional Family Medical History / Comment(s): Father of a IN at the age of 39 yrs. Sister(s) Family Medical History: Cancer Brother(s) Family Medical History: Cancer, Myocardial Infarction (IN) General Exam Limitations: no limitations General appearance: alert, in no apparent distress Head exam: Present: atraumatic, normocephalic, normal inspection Eye exam: Present: normal appearance, PERRL, EOMI. Absent: scleral icterus, conjunctival injection, periorbital swelling ENT exam: Present: normal exam, mucous membranes moist Neck exam: Present: full ROM. Absent: tenderness, lymphadenopathy Respiratory exam: Present: normal lung sounds bilaterally. Absent: respiratory distress, wheezes, rales, rhonchi, stridor, chest wall tenderness Cardiovascular Exam: Present: regular rate, normal rhythm, normal heart sounds. Absent: systolic murmur, diastolic murmur, rubs, gallop, clicks GI/Abdominal exam: Present: soft, tenderness (Tenderness to palpation just below umbilicus), normal bowel sounds, other (Abdomen with healed scars present, no sign of infection). Absent: distended, guarding, rebound, rigid Extremities exam: Present: normal capillary refill. Absent: tenderness, pedal edema, joint swelling, calf tenderness Back exam: Present: full ROM. Absent: CVA tenderness (R), CVA tenderness (L), paraspinal tenderness, vertebral tenderness Neurological exam: Present: alert, oriented X3, CN II-XII intact Psychiatric exam: Present: normal affect, normal mood Skin exam: Present: warm, dry, intact, normal color. Absent: rash Course Vital Signs 06/21/21 15:38 Temperature 98.3 F Pulse Rate 68 Respiratory 20 Rate Blood Pressure 168/74 O2 Sat by Pulse 97 Oximetry Medical Decision Making - Medical Decision Making This 75-year-old female with past medical history of bowel resection presents from [facility] with an abnormal ultrasound that was performed yesterday and recommended CT scan. Patient states her abdominal pain has been the same for the last year and denies it worsening since she was last discharged from the hospital. Pain was relieved with morphine while here in the ED. White blood cells within normal limits, hemoglobin and hematocrit low at 10.2 and 33.1, however this is patient's baseline. Calcium 7.5 and albumin 2.4 with corrected calcium at 8.8. Urine without any acute findings. Computed tomography scan abdomen and pelvis with contrast shows extensive abdominal surgery. No bowel obstruction. Pleural effusions and basilar pulmonary atelectasis slightly improved compared to the exam, patient is not experiencing any cough, fever or shortness of breath at this time. Subcutaneous edema noted. There is possible to more luminal narrowing of the sigmoid colon similar to old exam. No evidence bowel traction. Patient was instructed to follow-up with in the next 1-2 days as he performed her abdominal surgeries in the past. Patient to follow up with her primary care provider next 1-2 days. Strict return precautions were discussed. Patient verbally agreed to plan. Case discussed in detail with my attending, Dr. Holliday. - Lab Data Result diagrams: 06/21/21 17:00 06/21/21 17:00 Lab Results 06/21/21 06/21/21 06/21/21 Range/Units 17:00 17:00 17:25 WBC 7.2 (3.8-10.6) k/uL RBC 3.53 L (3.80-5.40) m/uL Hgb 10.2 L (11.4-16.0) gm/dL Hct 33.1 L (34.0-46.0) % MCV 93.8 (80.0-100.0) fL MCH 29.0 (25.0-35.0) pg MCHC 30.9 L (31.0-37.0) g/dL RDW 20.6 H (11.5-15.5) % Plt Count 341 (150-450) k/uL MPV 8.0 Neutrophils % (Manual) 28 % Lymphocytes % (Manual) 54 % Monocytes % (Manual) 17 % Eosinophils % (Manual) 1 % Neutrophils # (Manual) 2.02 (1.3-7.7) k/uL Lymphocytes # (Manual) 3.89 (1.0-4.8) k/uL Monocytes # (Manual) 1.22 H (0-1.0) k/uL Eosinophils # (Manual) 0.07 (0-0.7) k/uL Nucleated RBCs 0 (0-0) /100 WBC Manual Slide Review Performed Hypochromasia Moderate Anisocytosis Moderate Macrocytosis Slight PT (9.0-12.0) sec INR (<1.2) APTT (22.0-30.0) sec Sodium 132 L (137-145) mmol/L Potassium 4.7 (3.5-5.1) mmol/L Chloride 102 (98-107) mmol/L Carbon Dioxide 26 (22-30) mmol/L Anion Gap 4 mmol/L BUN 10 (7-17) mg/dL Creatinine 0.53 (0.52-1.04) mg/dL Est GFR (CKD-EPI)AfAm >90 (>60 ml/min/1.73 sqM) Est GFR (CKD-EPI)NonAf >90 (>60 ml/min/1.73 sqM) Glucose 88 (74-99) mg/dL Plasma Lactic Acid Anthony (0.7-2.0) mmol/L Calcium 7.5 L (8.4-10.2) mg/dL Total Bilirubin 0.7 (0.2-1.3) mg/dL AST 46 H (14-36) U/L ALT 11 (4-34) U/L Alkaline Phosphatase 128 H (38-126) U/L Total Protein 6.4 (6.3-8.2) g/dL Albumin 2.4 L (3.5-5.0) g/dL Lipase 31 (23-300) U/L Urine Color Yellow Urine Appearance Clear (Clear) Urine pH 7.5 (5.0-8.0) Ur Specific [place] 1.011 (1.001-1.035) Urine Protein Negative (Negative) Urine Glucose (UA) Negative (Negative) Urine Ketones Negative (Negative) Urine Blood Negative (Negative) Urine Nitrite Negative (Negative) Urine Bilirubin Negative (Negative) Urine Urobilinogen <2.0 (<2.0) mg/dL Ur Leukocyte Esterase Negative (Negative) 06/21/21 06/21/21 Range/Units 17:45 18:45 WBC (3.8-10.6) k/uL RBC (3.80-5.40) m/uL Hgb (11.4-16.0) gm/dL Hct (34.0-46.0) % MCV (80.0-100.0) fL MCH (25.0-35.0) pg MCHC (31.0-37.0) g/dL RDW (11.5-15.5) % Plt Count (150-450) k/uL MPV Neutrophils % (Manual) % Lymphocytes % (Manual) % Monocytes % (Manual) % Eosinophils % (Manual) % Neutrophils # (Manual) (1.3-7.7) k/uL Lymphocytes # (Manual) (1.0-4.8) k/uL Monocytes # (Manual) (0-1.0) k/uL Eosinophils # (Manual) (0-0.7) k/uL Nucleated RBCs (0-0) /100 WBC Manual Slide Review Hypochromasia Anisocytosis Macrocytosis PT 11.7 (9.0-12.0) sec INR 1.1 (<1.2) APTT 19.2 L (22.0-30.0) sec Sodium (137-145) mmol/L Potassium (3.5-5.1) mmol/L Chloride (98-107) mmol/L Carbon Dioxide (22-30) mmol/L Anion Gap mmol/L BUN (7-17) mg/dL Creatinine (0.52-1.04) mg/dL Est GFR (CKD-EPI)AfAm (>60 ml/min/1.73 sqM) Est GFR (CKD-EPI)NonAf (>60 ml/min/1.73 sqM) Glucose (74-99) mg/dL Plasma Lactic Acid Anthony 1.3 (0.7-2.0) mmol/L Calcium (8.4-10.2) mg/dL Total Bilirubin (0.2-1.3) mg/dL AST (14-36) U/L ALT (4-34) U/L Alkaline Phosphatase (38-126) U/L Total Protein (6.3-8.2) g/dL Albumin (3.5-5.0) g/dL Lipase (23-300) U/L Urine Color Urine Appearance (Clear) Urine pH (5.0-8.0) Ur Specific [place] (1.001-1.035) Urine Protein (Negative) Urine Glucose (UA) (Negative) Urine Ketones (Negative) Urine Blood (Negative) Urine Nitrite (Negative) Urine Bilirubin (Negative) Urine Urobilinogen (<2.0) mg/dL Ur Leukocyte Esterase (Negative) Disposition Clinical Impression: Abdominal pain Disposition: HOME SELF-CARE Condition: Stable Instructions (If sedation given, give patient instructions): Abdominal Pain (ED) Additional Instructions: Please follow-up with her primary care provider next 1-2 days. Follow-up with who performed your operations in the next week. Return to the emergency department with any new, worsening, or concerning symptoms. Is patient prescribed a controlled substance at d/c from ED?: No Referrals: Joey Valdez MD [Primary Care Provider] - 1-2 days Time of Disposition: 20:05
[2021-06-21 19:44] LABS: INR 1.1 (<1.2); Prothrombin Time 11.7 sec (9.0-12.0)
--- NOTE | 2021-06-21 19:48 | CT ---
EXAMINATION TYPE: CT abdomen pelvis w con DATE OF EXAM: 06/21/2021 COMPARISON: 05/27/2021 HISTORY: Abdominal pain CT DLP: 1336.5 mGycm Automated exposure control for dose reduction was used. CONTRAST: Performed with IV Contrast, patient injected with 100 mL of Isovue 300. There are mild bilateral pleural effusions. There is infiltrate and atelectasis at both lung bases. H eart size is fairly normal. There is no pericardial effusion. There are clips from cholecystectomy. Liver is intact. Spleen is intact. There is numerous surgical c lips consistent with gastric bariatric surgery. I see no evidence of pancreatic mass. There is no adr enal mass. Kidneys show satisfactory contrast opacification. There is no hydronephrosis. Ureters are not dilated. There is no retroperitoneal adenopathy. Bladder distends smoothly. There is no inguinal hernia. There is subcutaneous edema around the abdomen. There is mild perirectal edema. There is no mesenteric edema. There is no ascites or free air. No sig n of a bowel obstruction. There is surgery at the rectosigmoid junction. There appears to be a tube i n the distal sigmoid colon or some luminal narrowing. This is also present on the old exam. This shou ld be correlated with the surgical history. There is multilevel lumbar spondylotic changes. Degenerative disc space narrowing and spur formation. There is a thoracolumbar dextroscoliosis. The bony pelvis is intact. The hip joints are intact. Sacr oiliac joints are intact. IMPRESSION: Extensive abdominal surgery. No bowel obstruction. Pleural effusions and basilar pulmonary atelectasi s slightly improved compared to old exam. Subcutaneous edema. There is possible to more luminal narrowing of the sigmoid colon similar to the old exam and correlat ion with surgical history is needed. There is however no evidence of a bowel obstruction.
[2021-06-21 19:50] LABS: Partial Thromboplastin Time 19.2 sec (22.0-30.0)
[2021-06-21 20:08] VITALS: BP 173/95; PULSE 76; TEMP 97.8
== END 2021-06-21 20:47 | disposition home or self-care (01) ==
LOC: EC 15:27
DX: R10.30 Lower abdominal pain, unspecified (principal); I48.91 Unspecified atrial fibrillation; I25.10 Atherosclerotic heart disease of native coronary artery without angina pectoris; K21.9 Gastro-esophageal reflux disease without esophagitis; I10 Essential (primary) hypertension; M19.90 Unspecified osteoarthritis, unspecified site; E07.9 Disorder of thyroid, unspecified; F41.9 Anxiety disorder, unspecified; F32.A Depression, unspecified; Z91.040 Latex allergy status; Z85.21 Personal history of malignant neoplasm of larynx; Z98.84 Bariatric surgery status; Z90.49 Acquired absence of other specified parts of digestive tract; Z90.710 Acquired absence of both cervix and uterus; Z96.653 Presence of artificial knee joint, bilateral; Z87.891 Personal history of nicotine dependence
CPT/HCPCS: 99284; 96374; 96375; 96376; 36415; 80053; 83605; 83690; 85025; 85610; 85730; 81003; 74177; J2405; J2270; Q9967